=== PATIENT | female | born 1970 | race Caucasian/White ===

== ENCOUNTER 2016-12-17 18:59 | Emergency (ER) | payer MEDICAID ==
[~2016-12-17] VITALS: Ht 170.2 cm; Wt 99.8 kg
[~2016-12-17 18:59] MED LIST: ACETAMINOPHEN-H1 TA2 PO; ADIPEX-P37.5 MG PO; AFRIN PUMPMIST15 ML NS; ALL DAY ALLERGY10 MG PO; APAP/BUTALBITAL1 TA1 PO; APAP/HYDROCODON1 TA9 PO; ASPIRIN 81MG TA81 MG PO; BACTROBAN2% TP; BUSPAR 5MG TAB5 MG PO; CARAFATE1 GM/10 ML PO; CHILDREN'S CHEW1 CT1 PO; CIPRO 500MG TA500 MG PO; CLARITIN 10MG T10 MG PO; DARVOCET-N 1001 EACH PO; DICLOFENAC 50MG50 MG PO; DOXYCYCLINE HY100 M1 PO; DULOXETINE HYDR30 MG PO; ESCITALOPRAM20 MG PO; FE C PO; FIORICET 325 MG1 TAB PO; FIORICET1 CAP PO; FLEXERIL10 MG PO; FLONASE 50 MCG16 GM; GLYCOLAX17 GM/DOSE PO; IBUPROFEN 600M600 MG PO; IBUPROFEN400 MG OR; IBUPROFEN400 MG PO; IBUPROFEN800 MG PO; IRON65 MG PO; KEFLEX 500MG.500 MG PO; LINZESS145 MCG PO; LORTAB 5/500 501 TAB PO; LORTAB 500 MG-71 TAB PO; MEDROL 4MG. DOSE4 MG PO; MEDROXYPROGESTE10 M1 PO; METHOCARBAMOL500 M1 PO; MIRALAX17 GM/PACK PO; MOBIC7.5 MG PO; MONTELUKAST SOD10 MG PO; MOTRIN 600MG.600 MG PO; NAPROSYN500 M1 PO; NAPROXEN SODIU500 MG PO; NOMEDS; NOMEDS *; OMEPRAZOLE20 MG PO; OMEPRAZOLE40 MG PO; ONE DAILY1 TAB PO; PROVERA 10MG TA10 MG OR; ROBAXIN500 M1 PO; RONDEC-DM 118118 ML PO; SINGULAIR 10 MG10 MG PO; TERCONAZOLE 0.8% VG; TESSALON PERLE100 MG PO; TESSALON PERLE200 MG PO; TRAMADOL 50MG T50 MG PO; VIACTIV PO; VIBRAMYCIN HYC100 MG PO; VICODIN1 TAB PO; VISTARIL25 M1 PO; VITAMIN B1100 MG PO; VITAMIN B121000 MCG SL; VITAMIN D50000 I1 PO; VITAMIN D50000 IU PO; ZITHROMAX Z PA250 MG PO; ZOFRAN4 MG PO
--- NOTE | 2016-12-17 19:36 | Emergency Room Report ---
History of Present Illness Time Seen by 1903 Presenting Problem in Triage Pt arrived:Walked Presenting Problem:HAD HIATAL HERNIA REPAIR LAST FRIDAY--NO BM SINCE Onset of symptoms date/time:12/09/16 or onset unknown for: Treatment Prior to Arrival: [employer] Provided by: Sepsis Risk Assessment: Temp: 97.9 B/P: 126/68 MAP: 87 Pulse: 79 Resp: 20 Recent fever? N Clinical Suspician of Infection? N Mental Status: 1 - Regular (Normal Baseline) Sepsis Risk:Low Sepsis Risk Have you (or family members/close friends) recently traveled outside the [place]? N If Yes, where/when: Have you had exposure to infectious disease within the past month? N TB? Other? Specify: Source patient Exam Limitations no limitations Comment Pt presents to ER with complaints of constipation. Reports that she has not had a BM since 12/10/2016. She had hiatal hernia surgery 12/11/2016 at [facility] with Dr Enrique. She was seen here in the ER on 12/12 and 12/13 for difficulty swallowing and pain with swallowing. Reports that she continues to have pain and a "spasm" when she swallows. States that she is out of pain medication and was supposed to see Dr Pierce tomorrow morning but was told that she can't due to insurance will not be able to be seen until 12/25/2016. Her F/ U appt with Dr Enrique is 12/24/2016. Denies fever, any signs of infection at the surgical sites, nausea or vomiting. Timing/Duration week Severity moderate Associated Symptoms none ALLERGIES Coded Allergies: Penicillins (Mild, I-RASH 10/14/16) Sulfa (Sulfonamide Antibiotics) (Mild, I-RASH 10/14/16) codeine (Mild, I-RASH 10/14/16) diphenhydramine (From BENADRYL) (Mild, 10/14/16) morphine (10/14/16) Home Medications Reported Medications DULOXETINE HCL (Duloxetine Hydrochloride) 30 MG PO DAILY #30 MULTIVITAMIN (One Daily) 1 TAB PO DAILY ERGOCALCIFEROL (VITAMIN D2) (Vitamin D2) 50,000 IUNITS PO WEEKLY #4 Montelukast Sodium 10 MG PO DAILY #30 Polyethylene Glycol 3350 (Glycolax) 17 GM PO PRN PRN constipation #255 Linaclotide (Linzess 145MCG) 145 MCG PO DAILY #30 Omeprazole (Omeprazole 40MG) 40 MG PO DAILY #30 Fluticasone Propionate (Flonase 50 Mcg Nasal [place]) 1 SPRAY NA BID PRN allergies #16 History Medical History General CAD? No Angina: Yes [place]: No Hypertension? Yes Hyperlipidemia? Yes CHF? No DVT? No PE? No COPD? No Asthma? No Anemia? No GERD? No Gastric ulcers? No GI Bleed? No Hernia? Yes Thyroid Problems? No Hypothyroidism? No CVA? No Seizures? No Diabetes? No Renal Insuffiency? No End Stage Renal Disease? No UTI? Yes Stones? No BPH? No GB Disease: Yes Nephritic Syndrome? No Asplenia? No Hepatitis? No Sickle Cell Disease? No Arthritis? Yes Migraines? Yes Cataracts? No Glaucoma? No MRSA? No HIV? No TB? No Anxiety? No Depression? No Cancer? No More? Yes Additional hx: Fibromyalgia Immunization Hx DT/Tetanus 2006 Surgical Hx Previous Surgery?Y ELBOW AT AGE 5 UMBILICAL HERNIA 3-4 YRS GALLBLADDER C SECTION 07/13/07 TUBAL LIGATION PARTIAL L SALPINGECTOMY ENDOSCOPY GASTRIC SLEEVE HEART CATH MARCH 2016 COLONOSCOPY 08/08/16 ENDOSCOPY 08/08/16, Hiatal Hernia and diagnostic laproscopy 12/11/2016 [employer] Hx LMP 3 Weeks Ago Family History Family Hx Diabetes Yes CAD Yes Hypertension Yes Hyperlipidemia Yes Cancer Yes TB No Social History Smoking Hx Smoker: Never Smoker Tobacco: No Are you/the child exposed to second-hand smoke: No Alcohol Alcohol: No Review of Systems All Other Systems Reviewed and Negative Gastrointestinal constipation Physical Exam Vital Signs Vital Signs Date Time Temp Pulse Resp B/P Pulse O2 O2 Flow FiO2 Ox Delivery Rate 12/17 1917 97.9 79 20 126/68 97 General Appearance normal appearance, WD/WN, no apparent distress Eye Exam - bilateral eye normal exam, bilateral eye PERRL, bilateral eye EOMI Neck normal inspection, non-tender, supple, full range of motion Respiratory Status Yes: trachea midline, chest symmetrical, non tender chest. No: respiratory distress. Lung Sounds bilateral: normal breath sounds, lungs clear. 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 No Results/Orders Orders Procedure Date/time Status KUB (SINGLE VIEW) 12/17 1936 Active XRAY/CT/US XRAY/CT/US XRAY KUB XR interpretation by reviewed by me Xray Results Stool thru-out, barium from previous study on 12/12/2016 still present Departure Departure Time of Disposition 1951 Disposition DC Home or Self Care(routine) Clinical Impression Primary Impression: Constipation due to opioid therapy Condition STABLE Referrals Evon Gonzales APRN (Family): Tomorrow-Call Office Needs to call surgeon Dr Enrique if needs additional pain medication. Patient Instructions DI for Constipation Additional Instructions Increase fluids, fiber, and exercise. F/U with Dr Enrique or Dr Pierce for additional pain medication as needed. Continue post-op instructions as directed by Dr Enrique. Discharge Counseling Counseled pt/family regarding diagnosis, test results, medications/RX, home care, follow up needs Prescriptions Current Visit Scripts Bisacodyl (Bisacodyl 5MG TAB) 5 MG PO BID 5 Days Docusate Sodium (Colace 100MG Cap) 100 MG PO BIDP PRN constipation 5 Days ED Critical Care Critical Care No Comments Increase fluids, fiber, and exercise. F/U with Dr Enrique or Dr Pierce for additional pain medication as needed. Continue post-op instructions as directed by Dr Enrique. at 1953
--- NOTE | 2016-12-17 19:36 | Emergency Room Report ---
History of Present Illness Time Seen by 1903 Presenting Problem in Triage Pt arrived:Walked Presenting Problem:HAD HIATAL HERNIA REPAIR LAST FRIDAY--NO BM SINCE Onset of symptoms date/time:12/09/16 or onset unknown for: Treatment Prior to Arrival: [employer] Provided by: Sepsis Risk Assessment: Temp: 97.9 B/P: 126/68 MAP: 87 Pulse: 79 Resp: 20 Recent fever? N Clinical Suspician of Infection? N Mental Status: 1 - Regular (Normal Baseline) Sepsis Risk:Low Sepsis Risk Have you (or family members/close friends) recently traveled outside the [place]? N If Yes, where/when: Have you had exposure to infectious disease within the past month? N TB? Other? Specify: Source patient Exam Limitations no limitations Comment Pt presents to ER with complaints of constipation. Reports that she has not had a BM since 12/10/2016. She had hiatal hernia surgery 12/11/[address] [facility] with Dr Enrique. She was seen here in the ER on 12/12 and 12/13 for difficulty swallowing and pain with swallowing. Reports that she continues to have pain and a "spasm" when she swallows. States that she is out of pain medication and was supposed to see Dr Pierce tomorrow morning but was told that she can't due to insurance will not be able to be seen until 12/25/2016. Her F/ U appt with Dr Enrique is 12/24/2016. Denies fever, any signs of infection at the surgical sites, nausea or vomiting. Timing/Duration week Severity moderate Associated Symptoms none ALLERGIES Coded Allergies: Penicillins (Mild, I-RASH 10/14/16) Sulfa (Sulfonamide Antibiotics) (Mild, I-RASH 10/14/16) codeine (Mild, I-RASH 10/14/16) diphenhydramine (From BENADRYL) (Mild, 10/14/16) morphine (10/14/16) Home Medications Reported Medications DULOXETINE HCL (Duloxetine Hydrochloride) 30 MG PO DAILY #30 MULTIVITAMIN (One Daily) 1 TAB PO DAILY ERGOCALCIFEROL (VITAMIN D2) (Vitamin D2) 50,000 IUNITS PO WEEKLY #4 Montelukast Sodium 10 MG PO DAILY #30 Polyethylene Glycol 3350 (Glycolax) 17 GM PO PRN PRN constipation #255 Linaclotide (Linzess 145MCG) 145 MCG PO DAILY #30 Omeprazole (Omeprazole 40MG) 40 MG PO DAILY #30 Fluticasone Propionate (Flonase 50 Mcg Nasal [place]) 1 SPRAY NA BID PRN allergies #16 History Medical History General CAD? No Angina: Yes [place]: No Hypertension? Yes Hyperlipidemia? Yes CHF? No DVT? No PE? No COPD? No Asthma? No Anemia? No GERD? No Gastric ulcers? No GI Bleed? No Hernia? Yes Thyroid Problems? No Hypothyroidism? No CVA? No Seizures? No Diabetes? No Renal Insuffiency? No End Stage Renal Disease? No UTI? Yes Stones? No BPH? No GB Disease: Yes Nephritic Syndrome? No Asplenia? No Hepatitis? No Sickle Cell Disease? No Arthritis? Yes Migraines? Yes Cataracts? No Glaucoma? No MRSA? No HIV? No TB? No Anxiety? No Depression? No Cancer? No More? Yes Additional hx: Fibromyalgia Immunization Hx DT/Tetanus 2006 Surgical Hx Previous Surgery?Y ELBOW AT AGE 5 UMBILICAL HERNIA 3-4 YRS GALLBLADDER C SECTION 07/13/07 TUBAL LIGATION PARTIAL L SALPINGECTOMY ENDOSCOPY GASTRIC SLEEVE HEART CATH MARCH 2016 COLONOSCOPY 08/08/16 ENDOSCOPY 08/08/16, Hiatal Hernia and diagnostic laproscopy 12/11/2016 [employer] Hx LMP 3 Weeks Ago Family History Family Hx Diabetes Yes CAD Yes Hypertension Yes Hyperlipidemia Yes Cancer Yes TB No Social History Smoking Hx Smoker: Never Smoker Tobacco: No Are you/the child exposed to second-hand smoke: No Alcohol Alcohol: No Review of Systems All Other Systems Reviewed and Negative Gastrointestinal constipation Physical Exam Vital Signs Vital Signs Date Time Temp Pulse Resp B/P Pulse O2 O2 Flow FiO2 Ox Delivery Rate 12/17 1917 97.9 79 20 126/68 97 General Appearance normal appearance, WD/WN, no apparent distress Eye Exam - bilateral eye normal exam, bilateral eye PERRL, bilateral eye EOMI Neck normal inspection, non-tender, supple, full range of motion Respiratory Status Yes: trachea midline, chest symmetrical, non tender chest. No: respiratory distress. Lung Sounds bilateral: normal breath sounds, lungs clear. 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 No Results/Orders Orders Procedure Date/time Status KUB (SINGLE VIEW) 12/17 1936 Active XRAY/CT/US XRAY/CT/US XRAY KUB XR interpretation by reviewed by me Xray Results Stool thru-out, barium from previous study on 12/12/2016 still present Departure Departure Time of Disposition 1951 Disposition DC Home or Self Care(routine) Clinical Impression Primary Impression: Constipation due to opioid therapy Condition STABLE Referrals Evon Gonzales APRN (Family): Tomorrow-Call Office Needs to call surgeon Dr Enrique if needs additional pain medication. Patient Instructions DI for Constipation Additional Instructions Increase fluids, fiber, and exercise. F/U with Dr Enrique or Dr Pierce for additional pain medication as needed. Continue post-op instructions as directed by Dr Enriqeu. Discharge Counseling Counseled pt/family regarding diagnosis, test results, medications/RX, home care, follow up needs Prescriptions Current Visit Scripts Bisacodyl (Bisacodyl 5MG TAB) 5 MG PO BID 5 Days Docusate Sodium (Colace 100MG Cap) 100 MG PO BIDP PRN constipation 5 Days ED Critical Care Critical Care No Comments Increase fluids, fiber, and exercise. F/U with Dr Enrique or Dr Pierce for additional pain medication as needed. Continue post-op instructions as directed by Dr Enrique. at 1953
[2016-12-17] MEDS ORDERED: COLACE GENERIC100 MG PO (19:51)
[2016-12-17] MEDS ORDERED: BISACODYL5 MG PO (19:51)
[2016-12-17 20:00] VITALS: BP 132/82
--- NOTE | 2016-12-18 07:44 | RADIOLOGY REPORT PS360 ---
KUB (SINGLE VIEW) HISTORY: constipation ORDERING PHYSICIAN: PRASHANTH EASTMAN PATIENT AGE: 46 years COMPARISON: None FINDINGS: There is mild amount retained colonic feces. The thecal material somewhat hyperdense as the patient had a recent esophagram. There are surgical clips in the right upper quadrant. No abnormal calcifications are evident. No obvious renal or ureteral calculi.. No acute bony anomalies evident. IMPRESSION: Constipation
[2017-01-10] MEDS ORDERED: NASONEX0.05 MG/AC NS (21:07)
[2017-01-20] MEDS ORDERED: CYCLOBENZAPRINE10 M1 PO (14:58)
[2017-01-22] MEDS ORDERED: ETODOLAC200 MG PO (15:52)
[2017-01-22] MEDS ORDERED: ZANAFLEX4 M2 PO (15:52)
[2017-01-26] MEDS ORDERED: ZOFRAN4 MG PO (18:39)
[2017-02-14] MEDS ORDERED: IMDUR 30MG. TAB30 MG PO (12:55)
[2017-02-17] MEDS ORDERED: GOOD NEIGHBOR150 MG PO (10:48)
[2017-02-17] MEDS ORDERED: GOOD NEIGHBOR P10 M1 PO (10:48)
[2017-02-17] MEDS ORDERED: VITAMIN D31000 IU PO (10:49)
[2017-03-03] MEDS ORDERED: KEFLEX 500MG.500 MG PO (16:29)
[2017-03-12] MEDS ORDERED: GABAPENTIN100 MG PO (16:36)
[2017-03-12] MEDS ORDERED: PYRIDIUM100 M2 PO (17:14)
== END 2016-12-17 20:00 | disposition home or self-care (01) ==
LOC: ER 18:59
DX: K59.03 Drug induced constipation (principal); T40.2X5A Adverse effect of other opioids, initial encounter; I10 Essential (primary) hypertension; M79.7 Fibromyalgia

== ENCOUNTER 2016-12-25 10:25 | Emergency (ER) | payer MEDICAID ==
[~2016-12-25] VITALS: Ht 170.2 cm; Wt 99.8 kg
[~2016-12-25 10:25] MED LIST changes: +BISACODYL5 MG PO; +COLACE GENERIC100 MG PO
[2016-12-25] MEDS ORDERED: FLEXERIL10 MG PO (11:09)
--- NOTE | 2016-12-25 11:09 | Urgent Treatment Center Report ---
History of Present Issue Date/Time Seen by Provider 12/25/16 1045 Visit Reason Pt arrived:Walked Presenting Problem:PT C/O LOWER BACK THAT HAS BEEN ONGOING AND SORE THROAT Location if Accident: Onset of symptoms date/time:/ or onset unknown for:MEDICAL HX UNKNOWN Have you (or family members/close friends) recently traveled outside the [place]? N If Yes, where/when: Have you had exposure to infectious disease within the past month? TB? Other? Specify: Pt is well known to [facility] ER staff w/ >20 visits since Spring 2015. First visit in [facility] [place]. Lengthy hx of pain w/ extensive work up in ER and via PCP , Olga Gonzales APRN. Currently waiting for insurance approval to begin physical therapy. Pt reports most recents "total body scan" showed DDD and in June she was dx w/ fibromyalgia. "I always hurt everywhere". Reports started cymbalta but self d/c'd due to increased frequency of panic attacks. Started visiting chiropractor but "that made pain worse". Low back pain has been worse last 3-4 days despite 1500mg tylenol every 4 hours!! (Immediately corrected dosing w/ pt). Pain described as "same low back pain as always but worse now", , across low back, better w/ movement, worse at rest "especially at night", constant "typical" ache with intermittent tightness/squeezing, "like a spasm lately". Denies N/T "except when I feel an anxiety attack coming on and my heart rate gets fast. I flush and feel tingling then" Denies difficulty ambulating. No abdominal pain or difficulty w/ urination or stooling. Also c/o mild sore throat x 3 days. Intermittent. Worse at night and in morning. Denies ear pain. + PND. No fever, chills, sinus pain, rhinorrhea. "Just the sore throat really". Hasn't taken or tried anything specifically for sore throat. No known sick contacts. Source patient, old records Exam Limitations no limitations ALLERGIES Coded Allergies: Penicillins (Mild, I-RASH 10/14/16) Sulfa (Sulfonamide Antibiotics) (Mild, I-RASH 10/14/16) codeine (Mild, I-RASH 10/14/16) diphenhydramine (From BENADRYL) (Mild, 10/14/16) morphine (10/14/16) Home Medications Active Scripts Bisacodyl (Bisacodyl 5MG TAB) 5 MG PO BID 5 Days Prov: 12/17/16 Docusate Sodium (Colace 100MG Cap) 100 MG PO BIDP PRN constipation 5 Days Prov: 12/17/16 Reported Medications DULOXETINE HCL (Duloxetine Hydrochloride) 30 MG PO DAILY #30 MULTIVITAMIN (One Daily) 1 TAB PO DAILY ERGOCALCIFEROL (VITAMIN D2) (Vitamin D2) 50,000 IUNITS PO WEEKLY #4 Montelukast Sodium 10 MG PO DAILY #30 Polyethylene Glycol 3350 (Glycolax) 17 GM PO PRN PRN constipation #255 Linaclotide (Linzess 145MCG) 145 MCG PO DAILY #30 Omeprazole (Omeprazole 40MG) 40 MG PO DAILY #30 Fluticasone Propionate (Flonase 50 Mcg Nasal [place]) 1 SPRAY NA BID PRN allergies #16 History Medical History General CAD? No Angina: Yes [place]: No Hypertension? Yes Hyperlipidemia? Yes CHF? No DVT? No PE? No COPD? No Asthma? No Anemia? No GERD? No Gastric ulcers? No GI Bleed? No Hernia? Yes Thyroid Problems? No Hypothyroidism? No CVA? No Seizures? No Diabetes? No Renal Insuffiency? No UTI? Yes Stones? No BPH? No GB Disease: Yes Nephritic Syndrome? No Asplenia? No Hepatitis? No Sickle Cell Disease? No Arthritis? Yes Migraines? Yes Cataracts? No Glaucoma? No MRSA? No HIV? No TB? No Anxiety? No Depression? No Cancer? No More? 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 Respiratory denies cough Cardiovascular denies chest pain Gastrointestinal see HPI Musculoskeletal see HPI Skin denies rash Physical Exam Vital Signs Vital Signs Date Time Temp Pulse Resp B/P Pulse O2 O2 Flow FiO2 Ox Delivery Rate 12/25 1118 98.9 74 16 109/67 98 12/25 1034 98.9 74 16 109/67 98 General Appearance normal appearance, no apparent distress, unkept appearance Ear, Nose, Throat normal EACs, normal TMs, normal nasal passages, no drainage, clear PND and cobblestoning present, no tonsillar swelling Neck non-tender, full range of motion Respiratory Status No: respiratory distress. Lung Sounds anterior: normal breath sounds. posterior: normal breath sounds. bilateral: normal breath sounds. Cardiovascular regular rate/rhythm, no peripheral edema Gastrointestinal normal bowel sounds, non tender, soft Back normal inspection, strt leg raising(L)-NML, strt leg raising(R)-NML, tenderness with minimal palpation anywhere touched but more significant tenderness lower lumbar/sacral region, muscle spasm lower thoracic region bilaterally Extremities FROM Strength 4 Lower Ext (L), 4 Lower Ext (R) Neurologic alert Reflexes Reflexes normal Yes Skin intact, warm/dry Medical Decision Making LABS/Meds/Orders Pt receiving controlled substance in ED? No Departure Departure Time of Disposition 1057 Disposition DC Home or Self Care(routine) Clinical Impression Primary Impression: Chronic low back pain Qualifiers: Back pain laterality: bilateral Sciatica presence: without sciatica Qualified Code: M54.5 - Low back pain Secondary Impressions: Muscle spasm of back, Post-nasal drainage Condition STABLE Referrals Evon Gonzales APRN this week for worsening back pain. Immediately for new or worsening symptoms. Patient Instructions Cyclobenzaprine, DI for Low Back Pain Additional Instructions Sore throat due to post nasal drainage typically caused by a cold or allergies and will resolve spontaneously. Warm salt water gargles. Warm fluids. Sleep elevated. Back Pain chronic. Physical therapy is an excellent idea. FU w/ PCP, Olga Gonzales, regarding status of referral. Caution: Muscle relaxer (flexeril/cyclobenzaprine) will cause drowsiness. No operating machinary or driving after taking. Local heat/heating pad. Over the counter muscle rub or therapeutic patches. FU immediately for new or worsening symptoms. Discharge Counseling Counseled pt/family regarding diagnosis, medications/RX, home care, follow up needs Prescriptions Current Visit Scripts Cyclobenzaprine Hcl (Flexeril) 5 MG PO BID PRN muscle spasm #14 TAB at 8676
[2016-12-25 11:18] VITALS: BP 109/67
[2017-01-10] MEDS ORDERED: NASONEX0.05 MG/AC NS (21:07)
[2017-01-20] MEDS ORDERED: CYCLOBENZAPRINE10 M1 PO (14:58)
[2017-01-22] MEDS ORDERED: ETODOLAC200 MG PO (15:52)
[2017-01-22] MEDS ORDERED: ZANAFLEX4 M2 PO (15:52)
[2017-01-26] MEDS ORDERED: ZOFRAN4 MG PO (18:39)
[2017-02-14] MEDS ORDERED: IMDUR 30MG. TAB30 MG PO (12:55)
[2017-02-17] MEDS ORDERED: GOOD NEIGHBOR150 MG PO (10:48)
[2017-02-17] MEDS ORDERED: GOOD NEIGHBOR P10 M1 PO (10:48)
[2017-02-17] MEDS ORDERED: VITAMIN D31000 IU PO (10:49)
[2017-03-03] MEDS ORDERED: KEFLEX 500MG.500 MG PO (16:29)
[2017-03-12] MEDS ORDERED: GABAPENTIN100 MG PO (16:36)
[2017-03-12] MEDS ORDERED: PYRIDIUM100 M2 PO (17:14)
== END 2016-12-25 11:18 | disposition home or self-care (01) ==
LOC: UTC 10:25
DX: M54.5 Low back pain (principal); M62.830 Muscle spasm of back; M79.7 Fibromyalgia; I10 Essential (primary) hypertension

== ENCOUNTER 2017-01-04 17:08 | Emergency (ER) | payer MEDICAID ==
[~2017-01-04] VITALS: Ht 170.2 cm; Wt 99.8 kg
[2017-01-04] MEDS ORDERED: PREDNISONE 20MG20 MG PO (17:41)
[2017-01-04] MEDS ORDERED: ZITHROMAX Z PA250 MG PO (17:41)
--- NOTE | 2017-01-04 17:42 | Urgent Treatment Center Report ---
History of Present Issue Date/Time Seen by Provider 01/04/17 1140 Visit Reason Pt arrived:Walked Presenting Problem:PT C/O PULLING IN HER CHEST AND NECK FEELS MUSCLE RELATED Location if Accident: Onset of symptoms date/time:/ or onset unknown for:MEDICAL HX UNKNOWN Have you (or family members/close friends) recently traveled outside the [place]? N If Yes, where/when: Have you had exposure to infectious disease within the past month? TB? Other? Specify: Patient states that she is having pain in left side of her neck and she is not sure if she doesn't have an ear infection or infection in her throat because she noticed that she bumped into things at home ALLERGIES Coded Allergies: Penicillins (Mild, I-RASH 10/14/16) Sulfa (Sulfonamide Antibiotics) (Mild, I-RASH 10/14/16) codeine (Mild, I-RASH 10/14/16) diphenhydramine (From BENADRYL) (Mild, 10/14/16) morphine (10/14/16) Home Medications Active Scripts Cyclobenzaprine Hcl (Flexeril) 5 MG PO BID PRN muscle spasm #14 TAB Prov: 12/25/16 Bisacodyl (Bisacodyl 5MG TAB) 5 MG PO BID 5 Days Prov: 12/17/16 Docusate Sodium (Colace 100MG Cap) 100 MG PO BIDP PRN constipation 5 Days Prov: 12/17/16 Reported Medications DULOXETINE HCL (Duloxetine Hydrochloride) 30 MG PO DAILY #30 MULTIVITAMIN (One Daily) 1 TAB PO DAILY ERGOCALCIFEROL (VITAMIN D2) (Vitamin D2) 50,000 IUNITS PO WEEKLY #4 Montelukast Sodium 10 MG PO DAILY #30 Polyethylene Glycol 3350 (Glycolax) 17 GM PO PRN PRN constipation #255 Linaclotide (Linzess 145MCG) 145 MCG PO DAILY #30 Omeprazole (Omeprazole 40MG) 40 MG PO DAILY #30 Fluticasone Propionate (Flonase 50 Mcg Nasal [place]) 1 SPRAY NA BID PRN allergies #16 History Medical History General CAD? No Angina: Yes [place]: No Hypertension? Yes Hyperlipidemia? Yes CHF? No DVT? No PE? No COPD? No Asthma? No Anemia? No GERD? No Gastric ulcers? No GI Bleed? No Hernia? Yes Thyroid Problems? No Hypothyroidism? No CVA? No Seizures? No Diabetes? No Renal Insuffiency? No UTI? Yes Stones? No BPH? No GB Disease: Yes Nephritic Syndrome? No Asplenia? No Hepatitis? No Sickle Cell Disease? No Arthritis? Yes Migraines? Yes Cataracts? No Glaucoma? No MRSA? No HIV? No TB? No Anxiety? No Depression? No Cancer? No More? Yes Additional hx: Fibromyalgia Immunization HX DT/Tetanus 2006 Surgical Hx Previous Surgery?Y ELBOW AT AGE 5 UMBILICAL HERNIA 3-4 YRS GALLBLADDER C SECTION 07/13/07 TUBAL LIGATION PARTIAL L SALPINGECTOMY ENDOSCOPY GASTRIC SLEEVE HEART CATH MARCH 2016 COLONOSCOPY 08/08/16 ENDOSCOPY 08/08/16 Family History Family HX Diabetes Yes CAD Yes Hypertension Yes Hyperlipidemia Yes Cancer Yes TB No Social History Smoking Hx Smoker: Current Every Day Smoker Tobacco: Yes Type Cigarettes Alcohol Alcohol: No Review of Systems All Other Systems Reviewed and Negative Physical Exam Vital Signs Vital Signs Date Time Temp Pulse Resp B/P Pulse O2 O2 Flow FiO2 Ox Delivery Rate 01/04 1721 98.5 85 16 144/78 99 General Appearance normal appearance, no apparent distress Ear, Nose, Throat sinus pain/drainage, nasal congestion, tonsillar exudate, tonsillar swelling, Left ear, red, TM dull, buldging Respiratory Status Yes: trachea midline, chest symmetrical, non tender chest. No: respiratory distress. Cardiovascular normal exam Neurologic alert, normal exam, no motor/sensory deficits, oriented x 3 Medical Decision Making LABS/Meds/Orders Pt receiving controlled substance in ED? No Departure Departure Time of Disposition 1741 Disposition DC Home or Self Care(routine) Clinical Impression Primary Impression: Upper respiratory infection Qualifiers: URI type: unspecified URI Qualified Code: J06.9 - Acute upper respiratory infection, unspecified Condition STABLE Referrals Evon Gonzales APRN (Family) Patient Instructions DI for Ear Drainage, Middle Ear Infection Additional Instructions Follow up family doctor Return to [facility] if needed Take medication as prescribed Discharge Counseling Counseled pt/family regarding diagnosis, medications/RX, home care Prescriptions Current Visit Scripts Azithromycin (Zithromycin (Z-JORDAN) 250MG Tab) 250 MG PO DAILY #6 TAB TAKE TWO (2) TABLETS ON DAY 1, THEN ONE (1) TABLET DAY #2 THRU #5 Prednisone (Prednisone 20MG) 20 MG PO BID #10 TAB at 5053
--- NOTE | 2017-01-04 17:42 | Urgent Treatment Center Report ---
History of Present Issue Date/Time Seen by Provider 01/04/17 8818 Visit Reason Pt arrived:Walked Presenting Problem:PT C/O PULLING IN HER CHEST AND NECK FEELS MUSCLE RELATED Location if Accident: Onset of symptoms date/time:/ or onset unknown for:MEDICAL HX UNKNOWN Have you (or family members/close friends) recently traveled outside the [place]? N If Yes, where/when: Have you had exposure to infectious disease within the past month? TB? Other? Specify: Patient states that she is having pain in left side of her neck and she is not sure if she doesn't have an ear infection or infection in her throat because she noticed that she bumped into things at home ALLERGIES Coded Allergies: Penicillins (Mild, I-RASH 10/14/16) Sulfa (Sulfonamide Antibiotics) (Mild, I-RASH 10/14/16) codeine (Mild, I-RASH 10/14/16) diphenhydramine (From BENADRYL) (Mild, 10/14/16) morphine (10/14/16) Home Medications Active Scripts Cyclobenzaprine Hcl (Flexeril) 5 MG PO BID PRN muscle spasm #14 TAB Prov: 12/25/16 Bisacodyl (Bisacodyl 5MG TAB) 5 MG PO BID 5 Days Prov: 12/17/16 Docusate Sodium (Colace 100MG Cap) 100 MG PO BIDP PRN constipation 5 Days Prov: 12/17/16 Reported Medications DULOXETINE HCL (Duloxetine Hydrochloride) 30 MG PO DAILY #30 MULTIVITAMIN (One Daily) 1 TAB PO DAILY ERGOCALCIFEROL (VITAMIN D2) (Vitamin D2) 50,000 IUNITS PO WEEKLY #4 Montelukast Sodium 10 MG PO DAILY #30 Polyethylene Glycol 3350 (Glycolax) 17 GM PO PRN PRN constipation #255 Linaclotide (Linzess 145MCG) 145 MCG PO DAILY #30 Omeprazole (Omeprazole 40MG) 40 MG PO DAILY #30 Fluticasone Propionate (Flonase 50 Mcg Nasal [place]) 1 SPRAY NA BID PRN allergies #16 History Medical History General CAD? No Angina: Yes PR: No Hypertension? Yes Hyperlipidemia? Yes CHF? No DVT? No PE? No COPD? No Asthma? No Anemia? No GERD? No Gastric ulcers? No GI Bleed? No Hernia? Yes Thyroid Problems? No Hypothyroidism? No CVA? No Seizures? No Diabetes? No Renal Insuffiency? No UTI? Yes Stones? No BPH? No GB Disease: Yes Nephritic Syndrome? No Asplenia? No Hepatitis? No Sickle Cell Disease? No Arthritis? Yes Migraines? Yes Cataracts? No Glaucoma? No MRSA? No HIV? No TB? No Anxiety? No Depression? No Cancer? No More? Yes Additional hx: Fibromyalgia Immunization HX DT/Tetanus 2006 Surgical Hx Previous Surgery?Y ELBOW AT AGE 5 UMBILICAL HERNIA 3-4 YRS GALLBLADDER C SECTION 07/13/07 TUBAL LIGATION PARTIAL L SALPINGECTOMY ENDOSCOPY GASTRIC SLEEVE HEART CATH MARCH 2016 COLONOSCOPY 08/08/16 ENDOSCOPY 08/08/16 Family History Family HX Diabetes Yes CAD Yes Hypertension Yes Hyperlipidemia Yes Cancer Yes TB No Social History Smoking Hx Smoker: Current Every Day Smoker Tobacco: Yes Type Cigarettes Alcohol Alcohol: No Review of Systems All Other Systems Reviewed and Negative Physical Exam Vital Signs Vital Signs Date Time Temp Pulse Resp B/P Pulse O2 O2 Flow FiO2 Ox Delivery Rate 01/04 1721 98.5 85 16 144/78 99 General Appearance normal appearance, no apparent distress Ear, Nose, Throat sinus pain/drainage, nasal congestion, tonsillar exudate, tonsillar swelling, Left ear, red, TM dull, buldging Respiratory Status Yes: trachea midline, chest symmetrical, non tender chest. No: respiratory distress. Cardiovascular normal exam Neurologic alert, normal exam, no motor/sensory deficits, oriented x 3 Medical Decision Making LABS/Meds/Orders Pt receiving controlled substance in ED? No Departure Departure Time of Disposition 1741 Disposition DC Home or Self Care(routine) Clinical Impression Primary Impression: Upper respiratory infection Qualifiers: URI type: unspecified URI Qualified Code: J06.9 - Acute upper respiratory infection, unspecified Condition STABLE Referrals Evon Gonzales APRN (Family) Patient Instructions DI for Ear Drainage, Middle Ear Infection Additional Instructions Follow up family doctor Return to [facility] if needed Take medication as prescribed Discharge Counseling Counseled pt/family regarding diagnosis, medications/RX, home care Prescriptions Current Visit Scripts Azithromycin (Zithromycin (Z-JORDAN) 250MG Tab) 250 MG PO DAILY #6 TAB TAKE TWO (2) TABLETS ON DAY 1, THEN ONE (1) TABLET DAY #2 THRU #5 Prednisone (Prednisone 20MG) 20 MG PO BID #10 TAB at [id number]
[2017-01-04 17:45] VITALS: BP 144/78
[2017-01-10] MEDS ORDERED: NASONEX0.05 MG/AC NS (21:07)
[2017-01-20] MEDS ORDERED: CYCLOBENZAPRINE10 M1 PO (14:58)
[2017-01-22] MEDS ORDERED: ETODOLAC200 MG PO (15:52)
[2017-01-22] MEDS ORDERED: ZANAFLEX4 M2 PO (15:52)
[2017-01-26] MEDS ORDERED: ZOFRAN4 MG PO (18:39)
[2017-02-14] MEDS ORDERED: IMDUR 30MG. TAB30 MG PO (12:55)
[2017-02-17] MEDS ORDERED: GOOD NEIGHBOR P10 M1 PO (10:48)
[2017-02-17] MEDS ORDERED: GOOD NEIGHBOR150 MG PO (10:48)
[2017-02-17] MEDS ORDERED: VITAMIN D31000 IU PO (10:49)
[2017-03-03] MEDS ORDERED: KEFLEX 500MG.500 MG PO (16:29)
[2017-03-12] MEDS ORDERED: GABAPENTIN100 MG PO (16:36)
[2017-03-12] MEDS ORDERED: PYRIDIUM100 M2 PO (17:14)
== END 2017-01-04 17:46 | disposition home or self-care (01) ==
LOC: UTC 17:08
DX: J06.9 Acute upper respiratory infection, unspecified (principal); Z72.0 Tobacco use; I10 Essential (primary) hypertension

== ENCOUNTER 2017-03-22 18:01 | Emergency (ER) | payer MEDICAID ==
[~2017-03-22] VITALS: Ht 170.2 cm; Wt 113.4 kg
[~2017-03-22 18:01] MED LIST changes: +CYCLOBENZAPRINE10 M1 PO; +ETODOLAC200 MG PO; +GABAPENTIN100 MG PO; +GOOD NEIGHBOR P10 M1 PO; +GOOD NEIGHBOR150 MG PO; +IMDUR 30MG. TAB30 MG PO; +NASONEX0.05 MG/AC NS; +PREDNISONE 20MG20 MG PO; +PYRIDIUM100 M2 PO; +VITAMIN D31000 IU PO; +ZANAFLEX4 M2 PO
--- NOTE | 2017-03-22 18:09 | Emergency Room Report ---
History of Present Illness Time Seen by 1805 Presenting Problem in Triage Pt arrived: Presenting Problem: Onset of symptoms date/time:/ or onset unknown for: Treatment Prior to Arrival: STITCHDOWN TOE FORMER Provided by: Sepsis Risk Assessment: Temp: B/P: MAP: Pulse: Resp: Recent fever? Clinical Suspician of Infection? Mental Status: Sepsis Risk: Have you (or family members/close friends) recently traveled outside the [place]? If Yes, where/when: Have you had exposure to infectious disease within the past month? TB? Other? Specify: Source patient, RN notes reviewed Exam Limitations no limitations Comment Pt had Epidural Steroid Injection yesterday and when she got home got sick and felt like she was going to vomit and felt "loopy" in her head. No flackout spells but does have a mild CARTY and just has a weird feeling all over. He VS are all normal at this time. Cardiac Chest Pain Chest pain indicative of cardiac No ALLERGIES Coded Allergies: Sulfa (Sulfonamide Antibiotics) (Mild, I-RASH 01/22/17) codeine (Mild, I-RASH 01/22/17) diphenhydramine (From BENADRYL) (Mild, 01/22/17) morphine (01/22/17) Home Medications Reported Medications MULTIVITAMIN (One Daily) 1 TAB PO DAILY Linaclotide (Linzess 145MCG) 145 MCG PO DAILY #30 Gabapentin (Gabapentin 100MG) 100 MG PO QHS #90 Omeprazole (Omeprazole 40MG) 40 MG PO BID Cyclobenzaprine Hcl 50 MG PO BID Loratadine 10 MG PO DAILY RANITIDINE HCL (Acid Control) 150 MG PO BID CHOLECALCIFEROL (VITAMIN D3) (Vitamin D) 50,000 IUNITS PO WEEKLY History Medical History General CAD? No Angina: Yes NE: No Hypertension? No Hyperlipidemia? Yes CHF? No DVT? No PE? No COPD? No Asthma? No Anemia? No GERD? Yes Gastric ulcers? No GI Bleed? No Hernia? Yes Thyroid Problems? No Hypothyroidism? No CVA? No Seizures? No Diabetes? No Renal Insuffiency? No End Stage Renal Disease? No UTI? Yes Stones? No BPH? No GB Disease: Yes Nephritic Syndrome? No Asplenia? No Hepatitis? No Sickle Cell Disease? No Arthritis? Yes Migraines? Yes Cataracts? No Glaucoma? No MRSA? No HIV? No TB? No Anxiety? Yes Depression? No Cancer? No More? No Additional hx: Fibromyalgia Immunization Hx DT/Tetanus 2006 Surgical Hx Previous Surgery?Y ELBOW AT AGE 5 UMBILICAL HERNIA 3-4 YRS GALLBLADDER C SECTION 07/13/07 TUBAL LIGATION PARTIAL L SALPINGECTOMY ENDOSCOPY GASTRIC SLEEVE HEART CATH MARCH 2016 COLONOSCOPY 08/08/16 ENDOSCOPY 08/08/16 Family History Family Hx Diabetes Yes CAD Yes Hypertension Yes Hyperlipidemia Yes Cancer Yes TB No Social History Alcohol Alcohol: No Review of Systems All Other Systems Reviewed and Negative Constitutional see HPI Psychiatric/Neurological see HPI Physical Exam Vital Signs Vital Signs Date Time Temp Pulse Resp B/P Pulse O2 O2 Flow FiO2 Ox Delivery Rate 03/22 1937 81 20 118/71 100 03/22 184 82 18 103/65 98 03/22 1808 98.0 81 18 128/82 98 General Appearance normal appearance, WD/WN, no apparent distress Respiratory Status No: respiratory distress. 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 no arm drift, smile is symmetrical, tongue protrudes in the midline and speech is clear. Medical Decision Making LABS/Meds/Orders Pt receiving controlled substance in ED? No Results/Orders Laboratory Tests 03/22/171929: Urine Color YELLOW, Urine Appearance CLEAR, Urine pH 7.0, Ur Specific [place] <= 1.005, Urine Protein NEGATIVE, Urine Ketones NEGATIVE, Urine Blood NEGATIVE, Urine Nitrate NEGATIVE, Urine Bilirubin NEGATIVE, Urine Urobilinogen 0.2, Ur Leukocyte Esterase NEGATIVE, Ur Squamous Epith Cells 5-10, Amorphous Sediment TRACE, Urine Glucose NEGATIVE 03/22/171839: Sodium 140, Potassium 4.0, Chloride 105, Carbon Dioxide 32, BUN 11, Creatinine 0.8, Estimated Creat Clear 159, Estimated GFR (MDRD) 78, Glucose 100, Calcium 8.7, Total Bilirubin 0.4, AST 20, ALT 31, Alkaline Phosphatase 90, Total Protein 7.8, Albumin 3.5, Globulin 4.3 H, Albumin/Globulin Ratio 0.8 L, WBC 4.9, RBC 4.62, Hgb 13.9, Hct 40.9, MCV 88.5, RDW 13.0, Plt Count 203, MPV 5.3 L, Gran % 69.2, Gran # 3.4, Lymphocytes % 25.7, Monocytes % 4.3, Eosinophils % 0.6, Basophils % 0.2, Lymphocytes # 1.3, Monocytes # 0.2, Eosinophils # 0.0, Basophils # 0.0, PUBS MCHC 34.0, MCH 30.1 Current Medication Orders Sig/[place] Start time Last Medication Dose Route Stop Time Status Admin Sodium Chloride 2,000 ML .STK-MED ONE 03/22 1850 DC IV Sodium Chloride 10 ML PRN PRN 03/22 1845 AC IV 03/23 183 Sodium Chloride 1,000 ML .Q1H1M 03/22 1845 DC 03/22 IV 03/22 1941851 Sodium Chloride 10 ML PRN PRN 03/22 1845 AC IV 03/23 183 Sodium Chloride 1,000 ML .Q4H 03/22 1845 AC 03/22 IV 03/22 2244 1851 Sodium Chloride 10 ML PRN PRN 03/22 1845 AC IV 03/23 183 Orders Procedure Date/time Status IV SALINE LOCK 03/22 1832 Active URINALYSIS/COMPLETE 03/22 1832 Complete CBC WITH AUTO DIFF 03/22 1832 Complete CHEM 12 PROFILE 03/22 183 Complete Departure Departure Time of Disposition 2016 Disposition DC Home or Self Care(routine) Clinical Impression Primary Impression: Adverse drug reaction Condition STABLE Referrals Rolando Pierce MD (Family): 2 Days-Call Office Patient Instructions DI for Adverse Drug Reaction -- Allergic, DI for Adverse Drug Reaction -- GI Intolerance, DI for Adverse Drug Reaction -- Other Additional Instructions Given zofran 4 mg Q6H for nausea and advised to followup with PCP as needed. or return to the ED with any worsening symptoms. I do not see a reason to do a CT scan at this time Discharge Counseling Counseled pt/family regarding diagnosis, test results, medications/RX, home care, follow up needs Prescriptions Current Visit Scripts ONDANSETRON HCL (Zofran 4MG Tab) 4 MG PO Q6HP PRN NAUSEA AND VOMITING #40 TAB ED Critical Care Critical Care No If Critical Care minutes are documented, the time involved in the performance of seperately reportable procedures was not counted toward critical care time documented. I directly delivered medical care to this critically ill and/or injured patient. Timely evaluation and treatment was necessary to address the significant organ system(s) dysfunction present in this patient. at 2019
[2017-03-22 18:54] LABS: HEMOGLOBIN 13.9 g/dL (12.2-16.2); LYMPH # 1.3 K/mm3 (0.7-4.5); LYMPH % 25.7 % (10-50.0)
[2017-03-22 19:38] LABS: URINE BILIRUBIN - DIPSTICK NEGATIVE (NEG); URINE BLOOD NEGATIVE (NEG)
[2017-03-22] MEDS ORDERED: ZOFRAN4 MG PO (20:19)
[2017-03-22 21:53] VITALS: BP 123/68
--- OUTSIDE RECORDS SUMMARY | 2017-03-24 00:50 | External Medical Summary Rpt ---
Author Author , Organization [employer] Address Unknown Phone Unavailable Care Team Providers Care Content Engineer Name Role Phone ALFARIS MOH, ALFARIS Unavailable Unavailable MOH [facility] [place] [place], [facility] [place] ARNOLD HUBER, ARNOLD Unavailable Unavailable HUBER ARNOLD HUBER, ARNOLD Unavailable Unavailable HUBER ATKINS TRA, ATKINS Unavailable Unavailable TRA ATKINS TRA, ATKINS Unavailable Unavailable TRA MICHELLE ALI, MICHELLE Unavailable Unavailable ALI [facility] Unavailable Unavailable [facility] Unavailable Unavailable MEDICAL GROUP, [facility] Unavailable Unavailable OF [facility], [facility] BEINEKE, BEINEKE Unavailable Unavailable BEINEKE CARMEN, BEINEKE Unavailable Unavailable CARMEN BESSON, BESSON Unavailable Unavailable BESSON DOMINIQUE, BESSON Unavailable Unavailable DOMINIQUE [facility] Unavailable Unavailable [facility], [facility] Unavailable [facility]available [facility], [facility] BOLIEK KADIE, BOLIEK Unavailable Unavailable KADIE CERRATO, CERRATO Unavailable Unavailable CERRATO ALL, CERRATO ALL Unavailable Unavailable [facility] Unavailable Unavailable HOSPITAL, [facility] Unavailable Unavailable SERVICE, [facility]available Unavailable SERVICE, [facility] SVITLANA KILO, SVITLANA Unavailable Unavailable KILO CASE JUS, CASE JUS Unavailable Unavailable [facility] Unavailable Un[facility], [facility] [place] Unavailable Unavailable [facility], [facility] CHESTNUT, CHESTNUT Unavailable Unavailable HUMPHREY MEAGAN, HUMPHREY Unavailable Unavailable [facility], Unavailable Un[facility], Unavailable Unavailable [facility] Unavailable Unavailable [place], [facility] LUDIVINA WEISS JR KADIE, ISELA Unavailable Unavailable JR KADIE HARLEEN, HARLEEN Unavailable Unavailable HARLEEN ADRIANNA, Unavailable Unavailable HARLEEN ADRIANNA CELI, CELI Unavailable Unavailable CELI PHI, Unavailable Unavailable CELI PHI LOCKHART, LOCKHART Unavailable Unavailable FALLUJI NACHO, FALLUJI Unavailable Unavailable NACHO FEEBACK, FEEBACK Unavailable Unavailable MARIN JOSE ANGEL, MARIN Unavailable Unavailable JOSE ANGEL ARSLAN GILBERT, Unavailable Unavailable JR MANUELITO ROMAN, Unavailable Unavailable JR MANUELITO SOTOMAYOR ANKUR, ANKUR Unavailable Unavailable ANKUR BRYCE, ANKUR Unavailable Unavailable BRYCE ANKUR BRYCE, ANKUR Unavailable Unavailable BRYCE ANKUR, BK S, Unavailable Unavailable ANKUR, BK S [facility] Unavailable Unavailable [facility], [facility] Unavailable Unavailable HOSPITA, [facility] Unavailable Unavailable HOSPITA, [facility] RODRIGUEZ TRI, RODRIGUEZ TRI Unavailable Unavailable ANDREWS RHO, ANDREWS Unavailable Unavailable RHO [facility] Unavailable Unavailable [place], [facility] Unavailable Unavailable INC, [facility] Unavailable Unavailable HOSPITAL P, [facility] P BOYER CHRISTEL, BOYER CHRISTEL Unavailable Unavailable BOYER CHRISTEL, BOYER CHRISTEL Unavailable Unavailable [facility], Unavailable Unavailable [facility] JAQUEZ, JAQUEZ Unavailable Unavailable VAUGHN TERA, VAUGHN Unavailable Unavailable BRYAN LONDONO Unavailable Unavailable ILUYOMADE ROT, Unavailable Unavailable ILUYOMADE ROT FELICIA DUARTE Unavailable Unavailable [facility] Unavailable Unavailable GROUP PS, [facility] Unavailable Unavailable [facility], [facility] Unavailable Unavailable MEDICAL G, [facility] ELYSSA BURNETT, Unavailable Unavailable ELYSSA Burnett MD, Unavailable Unavailable Elyssa SCHWARTZ, Unavailable Unavailable KRISTEN SCHWARTZ KRASNOPOLSKY LAUREN, Unavailable Unavailable KRASNOPOLSKY LAUREN [facility] MA[facility]ESH MAI Unavailable Unavailable [facility], [facility] AMI Unavailable Unavailable [facility], [facility] MAI Unavailable Unavailable HOLDINGS, [facility] ISSA, ISSA Unavailable Unavailable ISSA JARON, ISSA Unavailable Unavailable JARON ISSA JARON, ISSA Unavailable Unavailable JARON SCOTT JR, SCOTT JR Unavailable Unavailable SCOTT JR DWI, SCOTT Unavailable Unavailable JR DWI [facility] BRITTNY MART Unavailable Unavailable BRITTNY ANT, BRITTNY ANT Unavailable Unavailable NAJERA, NAJERA Unavailable Unavailable LUKING, LUKING Unavailable Unavailable LUKING, LUKING Unavailable Unavailable LUKING MATTI, LUKING Unavailable Unavailable MATTI CHRIS, CHRIS Unavailable Unavailable VIANEY PAULETTE, VIANEY Unavailable Unavailable PAULETTE NOGUEIRA, NOGUEIRA Unavailable Unavailable NOGUEIRA JAM, Unavailable Unavailable NOGUEIRA JAM SUMA, MAX P, Unavailable Unavailable SUMA, MAX P [facility], Unavailable Unavailable [facility], Unavailable Unavailable PLL[facility], [facility] PETTEY JAM, PETTEY Unavailable Unavailable JAM PICKLESIMER JR WANDA, Unavailable Unavailable PICKLESIMER JR WANDA [facility], Unavailable Unavailable [facility], Unavailable Unavailable [facility] RADMANESH SHA, Unavailable Unavailable RADMANESH SHA RENUSCH, RENUSCH Unavailable Unavailable RENUSCH CASANDRA, RENUSCH Unavailable Unavailable CASANDRA ANDRES IV HEN, Unavailable Unavailable ANDRES IV HEN JASSO, JASSO Unavailable Unavailable JASSO, JASSO Unavailable Unavailable SADEK MOH, SADEK MOH Unavailable Unavailable SCALF LEI, SCALF LEI Unavailable Unavailable SCALF LEI, SCALF LEI Unavailable Unavailable SCALF HUBER, SCALF HUBER Unavailable Unavailable SCIFRES ANG, SCIFRES Unavailable Unavailable ANG SCIFRES ANG, SCIFRES Unavailable Unavailable ANG ANNA, ANNA Unavailable Unavailable SHASHY PATY, SHASHY Unavailable Unavailable PATY KIMBERLY, KIMBERLY Unavailable Unavailable KIMBERLY MAT, Unavailable Unavailable KIMBERLY MAT BENSON JOSE ANGEL, BENSON Unavailable Unavailable JOSE ANGEL RODRIGUEZ SHABANA, RODRIGUEZ SHABANA Unavailable Unavailable SOTINGEANU CARMEN, Unavailable Unavailable SOTINGEANU CARMEN [facility], [facility] Unavailable Unavailable [facility], [facility]available Unavailable [id number], [facility] WALKER FOR, WALKER Unavailable Unavailable FOR [facility] Unavailable Unavailable DEPT JAZZ, [facility] Unavailable Unavailable DEPT JAZZ, [facility] SANCHEZ, SANCHEZ Unavailable Unavailable SANCHEZ MICHELLE, SANCHEZ MICHELLE Unavailable Unavailable WELLS ELLEN, WELLS ELLEN Unavailable Unavailable WELLS SHA, WELLS SHA Unavailable Unavailable ROSENTHAL MAR, ROSENTHAL MAR Unavailable Unavailable SARAH KADIE, SARAH KADIE Unavailable Unavailable Purpose Continuity of Care Document - 01-04-2009 through 2016 Problems Code Diagnosis DOS Provider Status E669 OBESITY 02-25-2017 [facility] UNSPECIFIED PHYSICIANS GROUP I119 HYPERTENSIV 02-25-2017 [facility] E HEART PHYSICIANS DISEASE GROUP WITHOUT HEART FAILURE K449 DIAPHRAGMAT 02-25-2017 [facility] IC HERNIA PHYSICIANS W/O GROUP OBSTRUCTION OR GANGRENE R0600 DYSPNEA 02-25-2017 [facility] UNSPECIFIED PHYSICIANS GROUP R079 CHEST PAIN 02-25-2017 [facility] UNSPECIFIED PHYSICIANS GROUP J310 CHRONIC 02-17-2017 [facility] RHINITIS PHYSICIANS GROUP J329 CHRONIC 02-17-2017 [facility] SINUSITIS PHYSICIANS UNSPECIFIED GROUP J342 DEVIATED 02-17-2017 [facility] NASAL PHYSICIANS SEPTUM GROUP K5900 CONSTIPATIO 02-14-2017 [place] [facility] UNSPECIFIED IMAGING ASS I998 OTHER 02-11-2017 [facility] DISORDER OF [facility] CIRCULATORY SYSTEM R0602 SHORTNESS 02-11-2017 [facility] OF BREATH [facility] INC G8929 OTHER 02-10-2017 [facility] CHRONIC [facility] PAIN INTERNAL MED G05014 PAIN IN 02-10-2017 [facility] LEFT [facility]LEY SHOULDER INTERNAL MED M5440 LUMBAGO 02-10-2017 [facility] WITH VALLEY SCIATICA INTERNAL UNSPECIFIED MED SIDE R002 PALPITATION 01-31-2017 [facility] S PHYSICIANS GROUP R5383 OTHER 01-31-2017 [facility] FATIGUE PHYSICIANS GROUP M5136 OTH 01-30-2017 [facility] [place] RAL DISC [facility] DEGEN LUMBAR REGION E559 VITAMIN D 01-29-2017 LAB [facility] DEFICIENCY MAI UNSPECIFIED HOLDINGS M545 LOW BACK 01-29-2017 [facility] S PSC R072 PRECORDIAL 01-29-2017 [facility] PAIN [facility]YSICIANS, PLLC R0789 OTHER CHEST 01-29-2017 [place] [facility] R110 NAUSEA 01-29-2017 [facility] P Q72658 OTHER 01-29-2017 LAB [facility] SPECIFIED MAI POSTPROCEDU HOLDINGS [facility] STATES M792 NEURALGIA 01-27-2017 [facility] AND VALLEY NEURITIS INTERNAL UNSPECIFIED MED I10 ESSENTIAL 01-26-2017 [facility] HYPERTENSIO INC N M542 CERVICALGIA 01-26-2017 [facility] INC X67718 SPONDYLOSIS 01-22-2017 [place] W/O MEDICAL MYELOPATH/R IMAGING ASS ADICULOPATH Y CERV RGN R202 PARESTHESIA 01-22-2017 [place] OF SKIN MEDICAL IMAGING ASS [id number] STRAIN 01-22-2017 [facility] P NECK LEVL INIT ENC Z9884 BARIATRIC 01-21-2017 [facility] SURGERY [facility] STATUS INC R200 ANESTHESIA 01-20-2017 [facility] OF SKIN [facility] INC R51 HEADACHE 01-20-2017 [facility] INC [id number] STRAIN 01-16-2017 [facility] MUSCLE & PHYSICIANS, TENDON UNS PLLC WALL THORAX INIT ENC M797 FIBROMYALGI 01-11-2017 [place] [facility] H[facility]PITAL J74941 OTHER LONG 01-11-[address] [place] [facility] DRUG THERAPY Z882 ALLERGY 01-11-2017 [place] STATUS TO [facility] S STATUS Z886 ALLERGY 01-11-2017 [place] [facility]US TO [facility] ANALGESIC HOSPITAL AGENT STATUS Z888 ALLERGY 01-11-2017 [place] STATUS OTH [facility] BIOLOG [facility] STS H9203 OTALGIA 01-10-2017 [place] BILATERAL [facility] INC I209 ANGINA 01-10-2017 [facility] PECTORIS [facility] UNSPECIFIED INC R071 CHEST PAIN 01-07-2017 [place] BREATHING INTERNAL MED J069 ACUTE UPPER 01-04-2017 [facility] RESPIRATORY INC INFECTION UNSPECIFIED Z720 TOBACCO USE 01-04-2017 [facility] INC E63921 MUSCLE 12-25-2016 [place] SPASM OF MEM HOS[facility] BACK INC R1013 EPIGASTRIC 12-25-2016 [place] PAIN [place] INTERNAL MED R4702 DYSPHASIA 12-25-2016 [place] INTERNAL MED B078 OTHER VIRAL 12-23-2016 [facility] WARTS K219 GASTRO-ESOP 12-23-2016 [facility] H REFLUX HEALTH DISEASE [place] WITHOUT ESOPHAGITIS 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 12-23-2016 [facility] ESOPHAGUS [place] K30 FUNCTIONAL 12-23-2016 [facility] DYSPEPSIA HEALTH [place] L218 OTHER 12-23-2016 [facility] SEBORRHEIC DERMATITIS L538 OTHER 12-23-2016 [facility] SPECIFIED ERYTHEMATOU S CONDITIONS R208 OTHER 12-23-2016 [facility] DISTURBANCE S OF SKIN SENSATION R238 OTHER SKIN 12-23-2016 [facility] CHANGES K5903 DRUG 12-17-2016 [facility] INDUCED [facility] CONSTIPATIO INC N [id number] ADVERSE 12-17-2016 [facility] EFFECT [facility] OTHER INC OPIOIDS INITIAL ENCOUNTER R1319 OTHER 12-13-2016 [facility] DYSPHAGIA MEM HOS[facility] INC K910 VOMITING 12-12-2016 [facility] FOLLOWING [facility]OS[facility] GASTROINTES INC TINAL SURGERY R609 EDEMA 12-12-2016 [place] UNSPECIFIED MEM HOS[facility] INC E6601 MORBID 12-11-2016 [facility] SEVERE HEALTH OBESITY DUE MONALISA TO EXCESS CALORIES E7800 PURE 12-11-2016 [facility] HYPERCHOLES HEALTH TEROLEMIA [place] UNSPECIFIED N393 STRESS 12-11-2016 [facility] INCONTINENC HEALTH E FEMALE MONALISA MALE Z903 ACQUIRED 12-11-2016 [facility] ABSENCE OF HEALTH STOMACH MONALISA B12454 ENCOUNTER 12-05-2016 [facility] FOR OTHER HEALTH PREPROCEDUR MEDICAL AL GROUP EXAMINATION K210 GASTRO-ESOP 11-22-2016 [facility] HAGEAL PHYSICIANS, REFLUX PLLC DISEASE W/ ESOPHAGITIS K625 HEMORRHAGE 11-19-2016 [place] OF [place] AND [place] RECTUM INTERNAL MED M546 PAIN IN 11-08-2016 [facility] THORACIC PHYSICIANS, SPINE PLLC C32651 PAIN IN 10-14-2016 [place] UNSPECIFIED MEDICAL HIP IMAGING ASS M533 SACROCOCCYG 10-14-2016 [place] EAL MEDICAL DISORDERS IMAGING ASS NEC Y440PDK CONTUSION 10-14-2016 [facility] LOWER BACK PHYSICIANS, & PELVIS PLLC INITIAL ENCOUNTER T5445BC UNSPECIFIED 10-14-2016 [place] INJURY MEDICAL LOWER BACK IMAGING ASS INITIAL ENCOUNTER Z5643DM UNSPECIFIED 10-14-2016 [place] INJURY OF MEDICAL PELVIS IMAGING ASS INITIAL ENCOUNTER H3581 RETINAL 10-11-2016 SCIF[facility] ANG EDEMA R040 EPISTAXIS 10-10-2016 [facility] INTERNAL MED E6609 OTHER 10-08-2016 [facility] OBESITY DUE BARIATRIC TO EXCESS SURGICAL CALORIES R109 UNSPECIFIED 10-08-2016 [facility] ABDOMINAL BARIATRIC PAIN SURGICAL J3489 OTHER 10-06-2016 [facility] SPECIFIED PHYSICIANS, DISORDERS PLLC NOSE AND NASAL SINUSES R05 COUGH 10-06-2016 [place] [facility] R0981 NASAL 10-06-2016 [place] CON[facility]ION [facility] IMAGING ASS J320 CHRONIC 10-03-2016 [facility] SINUSITIS F55013 POSTPROCEDU 10-03-2016 [place] [facility] DS INC ORGAN/STRUC FLW DS PROC E785 HYPERLIPIDE 10-02-2016 [facility] UNSPECIFIED MEDICAL G S46716 ENCOUNTER 09-28-2016 [facility] AL CARIOVASCUL AR EXAM E48586 ENCOUNTER 09-28-2016 [facility] LABOR[facility]ORY EXAM A6004 HERPESVIRAL 09-27-2016 [facility] PHYSICIANS VULVOVAGINI GROUP TIS N760 ACUTE 09-27-2016 [facility] VAGINITIS PHYSICIANS GROUP L520E3C CONCUSSION 09-21-2016 [facility] WITHOUT LOC [facility] INITIAL INC ENCOUNTER B6750MN UNSPECIFIED 09-21-2016 [place] INJURY OF MEDICAL HEAD IMAGING ASS INITIAL ENCOUNTER H6903 PATULOUS 09-19-2016 [facility] JARON EUSTACHIAN TUBE BILATERAL K97315 UNSPECIFIED 09-18-2016 [facility] PHYSICIANS OBSTRUCTION GROUP EUSTACHIAN TUBE BILAT J309 ALLERGIC 09-18-2016 [facility] RHINITIS PHYSICIANS UNSPECIFIED GROUP R42 DIZZINESS 09-18-2016 [facility] AND PHYSICIANS GIDDINESS GROUP R590 LOCALIZED 09-04-2016 [facility] P Z6834 BODY MASS 09-04-2016 [facility] INDEX BMI HEALTH 34.0-34.9 MEDICAL ADULT GROUP K5909 OTHER 09-03-2016 [facility] CONSTIPATIO GROUND N FAMILY CLINI R112 NAUSEA WITH 09-03-2016 [facility] VOMITING GROUND UNSPECIFIED FAMILY CLINI R748 ABNORMAL 09-03-2016 [facility] LEVELS OF GROUND OTHER SERUM FAMILY ENZYMES CLINI Z111 ENCOUNTER 09-02-2016 [facility] DEPT RESPIRATORY JAZZ TUBERCULOSI S M549 DORSALGIA 09-01-2016 [facility] UNSPECIFIED PHYSICIANS, PLLC R197 DIARRHEA 09-01-2016 [facility] UNSPECIFIED PHYSICIANS, [facility] G29870F ADVERSE 09-01-2016 [facility] P SRI INITIAL ENCOUNTER Z40850 UNS PLACE 09-01-2016 [facility] UNS NON [facility] P PLACE OF OCCUR EXT R195 OTHER FECAL 08-30-2016 [facility] ABNORMALITI INC ES Z202 CONTACT 08-30-2016 [facility] WITH DISTRICT EXPOSURE HLTH DEPT INFECT JAZZ SEXUAL MODE TRANSMS Z23 ENCOUNTER 08-30-2016 [facility] FOR DISTRICT IMMUNIZATIO HLTH DEPT N JAZZ R5381 OTHER 08-29-2016 [facility] MALAISE PHYSICIANS GROUP R9431 ABNORMAL 08-29-2016 [facility] ELECTROCARD PHYSICIANS IOGRAM GROUP Z8249 FAMILY HX 08-23-2016 [facility] ISCHEMIC PHYSICIANS HRT DZ OTH GROUP DZ CIRC SYSTEM P63067 LYMPHOCYTOP 08-21-2016 [facility] ENIA [facility] INC J3089 OTHER 08-21-2016 [facility] RHINITIS [place] J4520 MILD 08-21-2016 [facility] INTERMITTEN PARTNERS OF T ASTHMA [place] UNCOMPLICAT ED I115VFX OTHER 08-21-2016 [facility] ADVERSE PARTNERS OF FOOD [place] REACTIONS NEC SUBSEQUENT ENC M791 MYALGIA 08-17-2016 [facility], PLLC M898X9 OTHER 08-12-2016 [place] SPECIFIED MEDICAL DISORDERS IMAGING ASS BONE UNSPECIFIED SITE R599 ENLARGED 08-12-2016 [facility] LYMPH NODES [facility] INC UNSPECIFIED R1314 DYSPHAGIA 08-10-2016 [facility] PHARYNGOESO PHYSICIANS, PHAGEAL PLLC PHASE R5382 CHRONIC 08-07-2016 [facility] FATIGUE [facility] UNSPECIFIED INC J301 ALLERGIC 08-05-2016 [facility] RHINITIS PARTNERS OF DUE TO [place] POLLEN J3081 ALLERG 08-05-2016 [facility] RH[facility]IS [facility] OF D/T ANIMAL [place] CAT DOG HAIR & DANDER R591 GENERALIZED 08-05-2016 [facility] LYMPH NODES [facility] P I208 OTHER FORMS 08-02-2016 [facility] OF ANGINA [facility] P N68883 PAIN IN 08-02-2016 [place] RIGHT KNEE MEDICAL IMAGING ASS R55 SYNCOPE AND 08-02-2016 [facility] COLLAPSE PHYSICIANS, PLLC A983OGI UNSPECIFIED 08-02-2016 [place] INJURY OF MEDICAL NECK IMAGING ASS INITIAL ENCOUNTER I6287NC UNS INJURY 08-02-2016 [place] RT LOWER MEDICAL LEG INITIAL IMAGING ASS ENCOUNTER N281 CYST OF 08-01-2016 [facility] P K30771 OTHER 07-31-2016 [facility] INC R209 UNSPECIFIED 07-29-2016 [facility] PHYSICIANS, DISTURBANCE PLLC S OF SKIN SENSATION K589 IRRITABLE 07-24-2016 [facility] BOWEL PHYSICIANS SYNDROME GROUP WITHOUT DIARRHEA R102 PELVIC AND 07-24-2016 [facility] PERINEAL PHYSICIANS PAIN GROUP N831 CORPUS 07-22-2016 [facility] LUTEUM CYST PHYSICIANS GROUP N920 EXCESS & 07-22-2016 [facility] FREQUENT PHYSICIANS MENSTRUATIO GROUP N W/REGULAR CYCLE A59154Q STRAIN UNS 07-22-2016 [facility] MUSCLE FASC PHYSICIANS, TEND THIGH PLLC RT INITIAL ENC Z7251 HIGH RISK 07-22-2016 [facility]UA [facility] BEHAVIOR INC R12 HEARTBURN 07-18-2016 [facility] H938X9 OTHER 07-17-2016 [facility] SPECIFIED PHYSICIANS DISORDERS GROUP OF EAR UNSPECIFIED EAR J302 OTHER 07-17-2016 [facility] SEASONAL PHYSICIANS ALLERGIC GROUP RHINITIS R1310 DYSPHAGIA 07-13-2016 [place] UNSPECIFIED MEDICAL IMAGING ASS Z6171AN LACERATION 07-13-2016 [facility] W/O FOREIGN PHYSICIANS, BODY SCALP PLLC INITIAL ENC P2662SU SPRAIN 07-13-2016 [facility] UNSPECIFIED PHYSICIANS, SITE LT PLLC KNEE INITIAL ENCNTR R6889 OTHER 07-10-2016 [facility] SYMPTOMS HOSPITA AND SIGNS E780 PURE 07-09-2016 [facility] HYPERCHOLES BARIATRIC TEROLEMIA SURGICAL E876 HYPOKALEMIA 07-09-2016 [facility] P Z1231 ENCOUNTER 07-08-2016 [place] SCREENING MEDICAL MAMMO MALIG IMAGING ASS NEOPLASM BREAST H6990 UNSPECIFIED 07-07-2016 [facility] TUBE PHYS PSC DISORDER UNS EAR H938X3 OTHER 07-07-2016 [facility] SPECIFIED HEALTH DISORDERS [place] OF EAR BILATERAL M5432 SCIATICA 07-07-2016 [facility] LEFT SIDE EMERGENCY PHYS PSC R1010 UPPER 07-05-2016 [facility] ABDOMINAL PHYSICIANS, PAIN PLLC UNSPECIFIED R1084 GENERALIZED 06-29-2016 [facility] ABDOMINAL PHYSICIANS, PAIN PLLC I880 NONSPECIFIC 06-27-2016 [facility] MESENTERIC PHYSICIANS, PLLC LYMPHADENIT IS R100 ACUTE 06-27-2016 [facility] ABDOMEN AMBULANCE SERVICE R1031 RIGHT LOWER 06-26-2016 [facility] PAIN PHYS J44615 RIGHT LOWER 06-26-2016 [facility] COMMUNTI[facility] ABDOMINAL HOSPITA TENDERNESS N200 CALCULUS OF 06-24-2016 [place] KIDNEY [facility] 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 06-11-2016 [facility] S NOT ELSEWHERE CLASSIFIED M5386 OTHER 06-11-2016 [facility] SPECIFIED DORSOPATHIE S LUMBAR REGION D225 MELANOCYTIC 05-23-2016 [facility] NEVI OF TRUNK D2272 MELANOCYTIC 05-23-2016 [facility] NEVI LEFT LOWER LIMB INCLUDING HIP 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 05-23-2016 [facility] UNCERTAIN BEHAVIOR OF SKIN L400 PSORIASIS 05-23-2016 [facility] VULGARIS L408 OTHER 05-23-2016 [facility] L578 OTH SKN 05-23-2016 [facility] CHANGES D/T CHRN EXPS TO NONIONIZING RAD R9439 ABNORMAL 04-08-2016 [facility] RESULT OT HEALTH CARDIOVASCU [place] LR FUNCTION STUDY I340 NONRHEUMATI 04-04-2016 [facility] INSUFFICIEN CY I351 NONRHEUMATI 04-04-2016 [facility] AORTIC [facility] INSUFFICIEN CY I361 NONRHEUMATI 04-04-2016 [facility] TRICUSPID SERV [facility]OUND[facility] INSUFFICIEN CY H524 PRESBYOPIA 03-29-2016 [facility] CH[facility]STEL M2550 PAIN IN 03-26-2016 [facility] UNSPECIFIED MAI JOINT HOLDINGS D509 IRON 03-20-2016 [facility] DEFICIENCY [facility] ANEMIA INC UNSPECIFIED M7521 BICIPITAL 03-19-2016 [facility] TENDINITIS VALLEY RIGHT INTERNAL SHOULDER MED S17235 ATYP SQ 03-13-2016 [facility] CELLS UNDET LLC SIGNIFICANC E CYTOL SMER CERV V33777 ENCOUNTER 03-13-2016 [facility], INDIRECT FIRE INFANTRYMAN EXAM LLC GENERAL RTN W/ABNORMAL FIND G74005 ENCOUNTER 03-13-2016 [facility] INDIRECT FIRE INFANTRYMAN EXAM PHYSICIANS GENERAL RTN GROUP W/O ABNORMAL FIND Z113 ENCOUNTER 03-13-2016 [facility], SCREEN LLC INFECTIONS SEXL MODE TRANSMISSN M778 OTHER 12-04-2015 [facility] ENTHESOPATH [place]LEY IES NOT INTERNAL ELSEWHERE MED CLASSIFIED 76701 UNSPECIFIED 07-11-2015 [facility] 2167 BENIGN 07-11-2015 [facility] NEOPLASM SKIN LOWER LIMB INCLUDING HIP 2168 BENIGN 07-11-2015 [facility] NEOPLASM OF OTHER SPECIFIED SITES OF SKIN 2382 NEOPLASM OF 07-11-2015 [facility] UNCERTAIN BEHAVIOR OF SKIN 2720 PURE 07-11-2015 [facility] HYPERCHOLES TEROLEMIA 6961 OTHER 07-11-2015 [facility] PSORIASIS AND SIMILAR DISORDERS 7018 OTHER SPEC 07-11-2015 [facility] HYPERTROPHI C&ATROPHIC CONDITION SKIN 7020 ACTINIC 07-11-2015 [facility] KERATOSIS 36455 INFLAMED 07-11-2015 [facility] SEBORRHEIC KERATOSIS V700 ROUTINE 06-27-2015 [facility] DEPT [email or web address] FACL 75647 MORBID 06-20-2015 [facility]GICAL 03604 PAIN IN 06-20-2015 [facility], SITE [facility] UNSPECIFIED 7823 EDEMA 06-20-2015 [facility] 76409 OTHER 06-20-2015 [facility] DYSPNEA AND [facility] RESPIRATORY ABNORMALITI ES 7871 HEARTBURN 06-20-2015 [facility] 7904 NONSPEC 06-20-2015 [facility] ELEVATION [facility] OF LEVELS SURGICAL OF TRANSAMINAS E/LDH V4586 BARIATRIC 06-20-2015 [facility] SURGERY [facility] STATUS SURGICAL V7612 OTHER 06-19-2015 [facility] 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 MED 2689 UNSPECIFIED 06-12-2015 [facility] VITAMIN D [place] DEFICIENCY INTERNAL MED 5718 OTHER 06-12-2015 [facility]RON[facility] [place] NONALCOHOLI INTERNAL C LIVER MED DISEASE 7905 OTHER 06-12-2015 [facility] NONSPECIFIC [place] ABNORMAL INTERNAL SERUM MED ENZYME LEVELS 04358 UNSPEC 05-09-2015 [facility] DISORDERS PHYSICIANS BURSAE&TEND GROUP ONS SHOULDER REGION 7262 OTHER 05-09-2015 [facility] AFFECTIONS PHYSICIANS OF SHOULDER GROUP REGION NEC 79463 OBESITY, 05-04-2015 [facility] UNSPECIFIED OLOGY AND HEPATOL 3674 PRESBYOPIA 04-28-2015 [facility] 96684 CHEST PAIN 04-28-2015 [facility] 89615 ABDOMINAL 04-25-2015 [facility] [place] [facility] UNSPECIFIED HOSPITA SITE 4019 UNSPECIFIED 04-16-2015 [facility] [facility] HYPERTEN[facility] N 5990 URINARY 04-16-2015 [facility], INFECTION [facility] SITE NOT SPECIFIED 7948 NONSPECIFIC 04-16-2015 [facility] RESULTS INC LIVR FUNCTION STUDY 5739 UNSPECIFIED 04-14-2015 [facility] [place] DISORDER RADIOLOGY OF LIVER 7906 OTHER 04-14-2015 [facility] [place] [facility] BLOOD HOSPITA CHEMISTRY 5939 UNSPECIFIED 04-06-2015 [facility] DISORDER MEDICAL OF KIDNEY IMAGING ASS AND URETER 7891 HEPATOMEGAL 04-06-2015 [facility] OLOG[facility] AND HEPATOL V140 PERSONAL 04-05-2015 [place] HISTORY OF [facility] ALLERGY TO HOSPITAL P PENICILLIN 41729 ABDOMINAL 04-03-2015 [facility] PAIN, GENERALIZED 5758 OTHER 04-01-2015 [place] SPECIFIED [facility] DISORDER OF HOSPITAL P GALLBLADDER 96327 OTHER 04-01-2015 [place] SPECIFIED MEDICAL DISORDER OF IMAGING ASS KIDNEY AND URETER 16050 ABDOMINAL 04-01-2015 [facility] PAIN RIGHT MEDICAL UPPER IMAGING ASS QUADRANT 75836 ABDOMINAL 04-01-2015 [place] [facility] P 7295 PAIN IN 03-29-2015 [place] SOFT COMMUNTIY TISSUES OF HOSPITA LIMB V4589 OTHER 03-29-2015 [place] POSTSURGICA COMMUNTIY L STATUS HOSPITA OTHER 78826 OTHER 03-24-2015 [place] MALAISE AND COMMUNTIY FATIGUE HOSPITA V6700 FOLLOW-UP 03-21-2015 [facility] [place] EXAMINATION RADIOLOGY FOLLOWING UNSPEC SURGERY 35581 ESOPHAGEAL 03-20-2015 [place] [facility] PS 6256 FEMALE 03-20-2015 [place] STRESS COMMUNTIY INCONTINENC HOSPITA E 99297 PAIN IN 03-20-2015 [facility] JOINT, BARIATRIC MULTIPLE SURGICAL SITES 63078 DIASTASIS 03-20-2015 [place] OF MUSCLE COMMUNTIY HOSPITA 7892 SPLENOMEGAL 03-20-2015 [place] Y COMMUNTIY HOSPITA V8543 BODY MASS 03-20-2015 [place] INDEX COMMUNTIY 50.0-59.9 HOSPITA ADULT 2639 UNSPECIFIED 03-14-2015 [place] COMM[facility]TI[facility] PROTEIN-TEA HOSPITA [place]TRITIO N 86027 MIGRAINE 03-07-2015 [facility] UNSP W/O BARIATRIC 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 MIGRAINOSUS 41959 OTHER 03-07-2015 [facility] URINARY BARIATRIC INCONTINENC SURGICAL E 6929 CONTACT 03-06-2015 [facility] DERMATITIS& OTHER ECZEMA DUE UNSPEC CAUSE 6822 CELLULITIS 03-02-2015 [facility] P V148 PERSONAL 03-02-2015 [facility] SPEC MEDICINAL AGTS V571 OTHER 02-22-2015 [facility] THERAPY INC 2724 OTHER AND 02-20-2015 [place] UNSPECIFIED COMMUNTIY HOSPITA HYPERLIPIDE LILIANE 7245 UNSPECIFIED 02-20-2015 [place] BACKACHE COMMUNTIY HOSPITA V7283 OTHER 02-20-2015 [place] SPECIFIED COMMUNTIY PRE-OPERATI HOSPITA VE EXAMINATION 2875 UNSPECIFIED 02-15-2015 [facility] P PENIA 7932 NONSPC ABN 02-10-2015 [place] [facility] RAD&OTH [facility] EXAM OTH INTRTHOR ORGN V7282 PRE-OPERATI 02-10-2015 [place] [facility] VE SERV RESPIRATORY [facility]ATION EXAMINATION 5930 NEPHROPTOSI 02-09-2015 [facility] P 7802 SYNCOPE AND 02-01-2015 [facility] MEDICAL G 4139 OTHER AND 01-18-2015 [facility] UNSPECIFIED [facility] P PECTORIS 73156 SHORTNESS 01-18-2015 [facility] 82774 OTHER CHEST 01-18-2015 [facility] PAIN [facility] P 38675 OSTEOARTHRO 12-30-2014 [facility] Reddy INVLV MX SITES BUT NOT SPEC GEN 16793 PAIN IN 11-09-2014 [place] JOINT, MEDICAL SHOULDER IMAGING ASS REGION V5832 ENCOUNTER 11-09-2014 [place] FOR REMOVAL [facility] P 04778 PILAR CYST 11-02-2014 [facility] 57920 UNSPECIFIED 10-06-2014 [facility] PH[facility] IN CCE & UNS SITE 7840 HEADACHE 10-06-2014 [place] [facility] 99141 ATROPHIC 09-16-2014 [place] GASTRITIS COMMUNITY WITHOUT HOSPITA MENTION OF HEMORRHAGE 28716 OTHER SPEC 09-16-2014 [facility] WITHOUT MENTION HEMORRHAGE 93564 DYSPHAGIA 09-16-2014 [place] UNSPECIFIED ANESTHESIA GROUP PS 6869 UNSPEC 08-17-2014 [facility] LOCAL INFECTION SKIN&SUBCUT ANEOUS TISSUE V7284 UNSPECIFIED 08-09-2014 [facility] PRE-OPERATI INC VE EXAMINATION 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 7019 UNSPECIFIED 08-04-2014 [facility] HYPERTROPHI C&ATROPHIC CONDITION SKIN 08586 OTHER 08-04-2014 [facility] SEBORRHEIC KERATOSIS 7851 PALPITATION 08-04-2014 [facility] MEDICAL G V7281 PRE-OPERATI 07-21-2014 [facility] CARDIOVASCU MEDICAL G LAR EXAMINATION 77786 PAINFUL 07-05-2014 [facility] RESPIRATION V771 SCREENING 05-24-2014 [facility] DI[facility]ETES MELLITUS 470 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 4779 ALLERGIC 03-17-2014 [facility] RHINITIS CAUSE UNSPECIFIED 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 E849.8 E849.8 12-31-2013 [place] ACCIDENT IN [facility] E885.9 E885.9 FALL 12-31-2013 [place] [facility], Hospital TRIPPING, OR STUMBLING NEC V14.0 V14.0 12-31-2013 [place] HX-P[facility]ILL [facility] IN ALLERGY Hospital V14.1 V14.1 12-31-2013 [place] HX-ANTIBIOT [facility] ALLERGY Hospital NEC V01.6 V01.6 01-11-2013 [place] VENEREAL [facility] DIS CONTACT Hospital V0481 NEED 01-06-2009 [facility] PROPHYLACTI [facility] C CENTRAL VACCINATION BANK ACCT &INOCULATIO N FLU 25939 PAIN IN 01-04-2009 [place] [facility] THIGH 20544 DISPLCMT 01-04-2009 [place] LUMBAR [employer] INTERVERT 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 8460 SPRAIN AND 01-04-2009 [employer] LUMBOSACRAL Upd[employer] 8472 LUMBAR 01-04-2009 [place] [facility] STRAIN INC 72386 CONTUSION 01-04-2009 [employer] BACK [employer] 43869 CONTUSION 01-04-2009 [employer] BUTTOCK [employer] E8490 PLACE OF 01-04-2009 [place] OCCURRENCE, [facility] HOME [facility] E8859 FALL FROM 01-04-2009 [place] OTHER MEDICAL SLIPPING IMAGING TRIPPING OR ASSOCIATES STUMBLING B34.9 VIRAL INFECTION, UNSPECIFIED G43.909 MIGRAINE, UNSP, NOT INTRACTABLE , WITHOUT STATUS MIGRAINOSUS M25.512 PAIN IN LEFT SHOULDER M79.604 PAIN IN RIGHT LEG N39.0 URINARY TRACT INFECTION, SITE NOT SPECIFIED R07.89 OTHER CHEST PAIN R07.9 CHEST PAIN, UNSPECIFIED R10.9 UNSPECIFIED ABDOMINAL PAIN R11.0 NAUSEA R20.2 PARESTHESIA OF SKIN R30.0 DYSURIA R51 HEADACHE R53.1 WEAKNESS R94.5 ABNORMAL RESULTS OF LIVER FUNCTION STUDIES S16.1XXA STRAIN OF MUSCLE, FASCIA AND TENDON AT NECK LEVEL, INIT S29.019A STRAIN OF MUSCLE AND TENDON OF UNSP WALL OF THORAX, INIT T88.7XXA UNSP ADVERSE EFFECT OF DRUG OR MEDICAMENT, INIT ENCNTR Allergies, Adverse Reactions, Alerts Type Drug Allergy Adverse Reaction to Substance Substance Reaction Severity Penicillin I-RASH Intermediate Sulfonamide Related Unknown Unknown Codeine I-RASH Intermediate Penicillin V Unknown Unknown Trimethoprim I-RASH Intermediate Sulfamethoxazole I-RASH Intermediate Clinical Alert Notifications Alert Member has >/= 10 ED visits within the past 365 days Medications Na ND Rx Da Fi Fi Am Da Di Ph RX Ph St me C No te ll ll ou ys ag ar # ys at rm s nt no ma ic us Or Da si cy ia de te s n re d LI 00 03 04 30 30 00 CL Ac NZ 45 -2 -2 .0 00 IN ti ES 61 4- 8- 00 00 IC ve S 20 20 20 41 14 13 17 17 04 PH 5 0 71 AR MC MA G CY CA PS UL E RA 68 03 04 60 30 00 CL Ac NI 46 -2 -2 .0 00 IN ti TI 20 9- 1- 00 00 IC ve DI 24 20 20 42 NE 80 17 17 65 PH 5 91 AR 15 MA 0 CY MG TA BL ET OM 62 03 04 60 30 00 CL Ac EP 17 -2 -2 .0 00 IN ti RA 50 9- 1- 00 00 IC ve ZO 13 20 20 41 LE 64 17 17 68 PH [address] MA CY 40 MG CA PS UL E CY 00 03 04 28 14 00 CL Ac CL 59 -2 -1 .0 00 IN ti OB 13 2- 4- 00 00 IC ve EN 25 20 20 42 ZA 60 17 17 59 PH VT 1 23 AR IN MA E CY 5 MG TA BL ET BU 00 03 04 90 30 00 CL Ac SP 37 -2 -1 .0 00 IN ti IR 81 2- 4- 00 00 IC ve ON 15 20 20 42 E 00 17 17 59 PH HC 1 22 AR L MA 10 CY MG TA BL ET VE 68 03 04 30 30 00 CL Ac NL 38 -2 -1 .0 00 IN ti AF 20 2- 4- 00 00 IC ve AX 03 20 20 42 IN 40 17 17 32 PH E 6 78 AR HC MA L CY ER 37 .5 MG CA P MO 29 03 04 30 30 00 CL Ac NT 30 -2 -1 .0 00 IN ti EL 00 2- 4- 00 00 IC ve UK 22 20 20 41 01 17 17 09 PH T 0 31 AR SO MA D CY 10 MG TA BL ET 64 03 04 4. 28 00 CL Ac T 38 -2 -1 00 00 IN ti D2 00 2- 4- 0 00 IC ve 73 20 20 42 1. 70 17 17 35 PH 25 6 24 AR MA MG CY (5 0, 00 0 UN IT ) RI 13 03 04 30 30 00 CL Ac SP 66 -2 -1 .0 00 IN ti ER 80 2- 4- 00 00 IC ve ID 03 20 20 42 ON 66 17 17 35 PH E 0 23 AR 0. MA 5 CY MG TA BL ET LO 45 03 04 30 30 00 CL Ac RA 80 -2 -1 .0 00 IN ti TA 20 2- 4- 00 00 IC ve DI 65 20 20 42 NE 08 17 17 35 PH 7 22 AR 10 MA CY MG TA BL ET IS 62 03 04 30 30 00 CL Ac OS 17 -2 -1 .0 00 IN ti OR 50 1- 4- 00 00 IC ve BI 12 20 20 42 DE 83 17 17 58 PH 7 88 AR MN MA CY ER 30 MG TA BL ET OS 47 03 03 10 10 00 CL Ac EL 78 -0 -3 .0 00 IN ti TA 10 7- 1- 00 00 IC ve AK 47 20 20 42 01 17 17 44 PH R 3 26 AR PH MA OS CY 75 MG CA PS UL E VT 65 03 03 20 5 00 CL Ac OM 16 -0 -3 .0 00 IN ti ET 20 8- 1- 00 00 IC ve CARTY 74 20 20 42 ZI 51 17 17 45 PH NE 0 47 AR MA 12 CY .5 MG TA BL ET HY 00 03 03 [address] 40 -0 -3 .0 00 TE ti OC 60 2- 1- 00 01 ve OD 12 20 20 17 AI ON 40 17 17 34 D -A 1 70 PH CE AR TA MA AK CY NO PH #3 93 7. 8 5- 32 5 CL 63 03 03 21 7 00 RI Ac IN 30 -0 -3 .0 00 TE ti DA 40 2- 1- 00 01 ve MY 69 20 20 17 AI CI 30 17 17 34 D N 1 69 PH HC AR L MA 30 CY 0 MG #3 93 CA 8 PS UL E GA 45 03 03 90 30 00 CL Ac BA 96 -0 -3 .0 00 IN ti PE 30 6- 1- 00 00 IC ve NT 55 20 20 42 IN 55 17 17 42 PH 0 60 AR 10 MA 0 CY MG CA PS UL E ON 67 03 03 10 2 00 CL Ac DA 87 -0 -3 .0 00 IN ti NS 70 6- 1- 00 00 IC ve ET 16 20 20 42 RO 93 17 17 42 PH N 0 18 AR HC MA L CY 4 MG TA BL ET LO 45 02 03 30 30 00 CL Ac RA 80 -2 -2 .0 00 IN ti TA 20 4- 4- 00 00 IC ve DI 65 20 20 41 NE 08 17 17 74 PH 7 07 AR 10 MA CY MG TA BL ET VE 68 02 03 30 30 00 CL Ac NL 38 -2 -2 .0 00 IN ti AF 20 3- 4- 00 00 IC ve AX 03 20 20 42 IN 40 17 17 32 PH E 6 78 AR HC MA L CY ER 37 .5 MG CA P OM 62 02 03 60 30 00 CL Ac EP 17 -2 -2 .0 00 IN ti RA 50 6- 4- 00 00 IC ve ZO 13 20 20 41 LE 64 17 17 68 PH [address] MA CY 40 MG CA PS UL E CL 00 02 03 50 14 00 CL Ac OB 47 -2 -2 .0 00 IN ti ET 20 6- 4- 00 00 IC ve 40 20 20 42 OL 25 17 17 05 PH 0 72 AR 0. MA 05 CY % SO ROSS TI ON BU 00 02 03 90 30 00 CL Ac SP 37 -2 -2 .0 00 IN ti IR 81 6- 4- 00 00 IC ve ON 15 20 20 42 E 00 17 17 08 PH HC 1 76 AR L MA 10 CY MG TA BL ET RA 00 02 03 60 30 00 CL Ac NI 78 -2 -2 .0 00 IN ti TI 11 6- 4- 00 00 IC ve DI 88 20 20 42 NE 31 17 17 08 PH 0 96 AR 15 MA 0 CY MG TA BL ET ET 62 03 03 20 10 00 CL Ac OD 55 -0 -2 .0 00 IN ti OL 90 1- 4- 00 00 IC ve AC 25 20 20 42 00 17 17 39 PH 20 1 19 AR 0 MA MG CY CA PS UL E TI 60 03 03 20 7 00 CL Ac ZA 50 -0 -2 .0 00 IN ti NI 50 1- 4- 00 00 IC ve DI 25 20 20 42 NE 20 17 17 39 PH 2 18 AR HC MA L CY 4 MG TA BL ET RI 13 02 03 30 30 00 CL Ac SP 66 -2 -2 .0 00 IN ti ER 80 4- 4- 00 00 IC ve ID 03 20 20 42 ON 66 17 17 32 PH E 0 44 AR 0. MA 5 CY MG TA BL ET FL 50 02 03 16 30 00 CL Ac UT 38 -2 -2 .0 00 IN ti IC 30 4- 4- 00 00 IC ve 70 20 20 41 ON 01 17 17 53 PH E 6 48 AR VT MA OP CY 50 MC G SP RA Y MO 00 02 03 30 30 00 CL Ac NT 60 -2 -2 .0 00 IN ti EL 34 4- 4- 00 00 IC ve UK 65 20 20 41 53 17 17 09 PH T 2 31 AR SO MA D CY 10 MG TA BL ET LI 00 02 03 30 30 00 CL Ac NZ 45 -2 -2 .0 00 IN ti ES 61 4- 4- 00 00 IC ve S 20 20 20 41 14 13 17 17 04 PH 5 0 71 AR MC MA G CY CA PS UL E 64 02 03 4. 28 00 CL Ac T 38 -2 -2 00 00 IN ti D2 00 4- 4- 0 00 IC ve 73 20 20 41 1. 70 17 17 47 PH 25 6 11 AR MA MG CY (5 0, 00 0 UN IT ) CY 00 02 03 28 14 00 CL Ac CL 59 -2 -1 .0 00 IN ti OB 13 1- 7- 00 00 IC ve EN 25 20 20 42 ZA 60 17 17 30 PH VT 1 05 AR IN MA E CY 5 MG TA BL ET TI 55 02 03 20 7 00 WA Ac ZA 11 -1 -1 .0 00 L- ti NI 10 8- 7- 00 07 MA ve DI 18 20 20 39 RT NE 01 17 17 34 5 68 PH HC AR L MA 4 CY MG #4 TA 93 BL ET DI 16 02 03 30 15 00 WA Ac CL 57 -1 -1 .0 00 L- ti OF 10 8- 7- 00 07 MA ve EN 20 20 20 39 RT AC 15 17 17 34 0 69 PH SO AR D MA EC CY 75 #4 93 MG TA B TE 51 02 03 20 3 00 CL Ac RC 67 -1 -1 .0 00 IN ti ON 21 0- 0- 00 00 IC ve AZ 30 20 20 41 OL 20 17 17 24 PH E 0 65 AR 0. MA 8% CY CR EA M VT 59 02 03 10 5 00 RI Ac ED 74 -1 -1 .0 00 TE ti NI 60 2- 0- 00 01 ve SO 17 20 20 17 AI NE 50 17 17 07 D 6 89 PH 20 AR MA MG CY TA #3 BL 93 ET 8 AZ 50 02 03 6. 5 00 RI Ac IT 11 -1 -1 00 00 TE ti HR 10 2- 0- 0 01 ve OM 78 20 20 17 AI YC 76 17 17 07 D IN 6 88 PH AR 25 MA 0 CY MG #3 TA 93 BL 8 ET CL 50 01 03 50 14 00 CL Ac OB 38 -3 -0 .0 00 IN ti ET 30 0- 3- 00 00 IC ve 26 20 20 42 OL 65 17 17 05 PH 0 72 AR 0. MA 05 CY % SO ROSS TI ON VE 68 02 03 14 14 00 CL Ac NL 38 -0 -0 .0 00 IN ti AF 20 7- 3- 00 00 IC ve AX 03 20 20 42 IN 40 17 17 15 PH E 6 16 AR HC MA L CY ER 37 .5 MG CA P FL 00 01 02 16 30 00 CL Ac UT 05 -2 -2 .0 00 IN ti IC 43 0- 4- 00 00 IC ve 27 20 20 41 ON 09 17 17 53 PH E 9 48 AR VT MA OP CY 50 MC G SP RA Y RI 13 01 02 30 30 00 CL Ac SP 66 -2 -2 .0 00 IN ti ER 80 5- 4- 00 00 IC ve ID 03 20 20 41 ON 66 17 17 74 PH E 0 06 AR 0. MA 5 CY MG TA BL ET AC 46 01 02 60 30 00 CL Ac ID 03 -2 -2 .0 00 IN ti 60 5- 4- 00 00 IC ve RE 00 20 20 41 DU 71 17 17 76 PH CE 2 22 AR R MA 75 CY MG TA BL ET 64 01 02 4. 28 00 CL Ac T 38 -2 -2 00 00 IN ti D2 00 5- 4- 0 00 IC ve 73 20 20 41 1. 70 17 17 47 PH 25 6 11 AR MA MG CY (5 0, 00 0 UN IT ) MO 16 01 02 30 30 00 CL Ac NT 72 -2 -2 .0 00 IN ti EL 90 5- 4- 00 00 IC ve UK 11 20 20 41 91 17 17 09 PH T 5 31 AR SO MA D CY 10 MG TA BL ET LI 00 01 02 30 30 00 CL Ac NZ 45 -2 -2 .0 00 IN ti ES 61 5- 4- 00 00 IC ve S 20 20 20 41 14 13 17 17 04 PH 5 0 71 AR MC MA G CY CA PS UL E OM 60 01 02 30 30 00 CL Ac EP 50 -2 -2 .0 00 IN ti RA 50 0- 4- 00 00 IC ve ZO 14 20 20 41 LE 60 17 17 68 PH [address] MA CY 40 MG CA PS UL E BU 00 02 02 90 30 00 CL Ac SP 37 -0 -2 .0 00 IN ti IR 81 1- 4- 00 00 IC ve ON 15 20 20 42 E 00 17 17 08 PH HC 1 76 AR L MA 10 CY MG TA BL ET CY 00 02 02 14 7 00 CL Ac CL 59 -0 -2 .0 00 IN ti OB 15 1- 4- 00 00 IC ve EN 65 20 20 42 ZA 81 17 17 08 PH VT 0 66 AR IN MA E CY 10 MG TA BL ET RA 11 01 02 10 5 00 RI Ac 82 -2 -2 .0 00 TE ti CO 23 4- 4- 00 01 ve L- 16 20 20 16 AI RI 50 17 17 83 D TE 0 28 PH AR 10 MA 0 CY MG #3 CA 93 PS 8 UL E RA 11 01 02 10 5 00 RI Ac 82 -2 -2 .0 00 TE ti BI 23 4- 4- 00 01 ve SA 34 20 20 16 AI CO 07 17 17 83 D DY 0 27 PH L AR EC MA 5 CY MG #3 93 TA 8 BL ET HY 00 01 02 [address] 40 -1 -[address] ti OC 60 8- 7- 00 00 SI ve OD 12 20 20 47 DE ON 40 17 17 29 -A 5 25 PH CE AR TA MA AK CY NO PH OF CY 7. NT 5- HI 32 AN 5 A IN C GE 60 01 02 5. 7 00 CL Ac NT 75 -1 -1 00 00 IN ti AM 80 4- 7- 0 00 IC ve IC 18 20 20 41 IN 80 17 17 91 PH 3 5 53 AR MA MG CY /M L EY E DR OP S AC 46 12 02 60 30 00 CL Ac ID 03 -2 -0 .0 00 IN ti 60 9- 3- 00 00 IC ve RE 00 20 20 41 DU 71 16 17 76 PH CE 2 22 AR R MA 75 CY MG TA BL ET PO 51 12 01 25 15 00 CL Ac LY 99 -2 -2 5. 00 IN ti ET 10 7- 7- 00 00 IC ve HY 45 20 20 0 41 LE 75 16 17 74 PH NE 8 22 AR MA GL CY YC OL 33 50 PO WD MO 16 12 01 30 30 00 CL Ac NT 72 -2 -2 .0 00 IN ti EL 90 7- 7- 00 00 IC ve UK 11 20 20 41 91 16 17 09 PH T 5 31 AR SO MA D CY 10 MG TA BL ET LI 00 12 01 30 30 00 CL Ac NZ 45 -2 -2 .0 00 IN ti ES 61 7- 7- 00 00 IC ve S 20 20 20 41 14 13 16 17 04 PH 5 0 71 AR MC MA G CY CA PS UL E OM 60 12 01 30 30 00 CL Ac EP 50 -2 -2 .0 00 IN ti RA 50 3- 7- 00 00 IC ve ZO 14 20 20 41 LE 60 16 17 68 PH [address] MA CY 40 MG CA PS UL E NA 68 12 01 20 10 00 CL Ac VT 46 -2 -2 .0 00 IN ti OX 20 7- 7- 00 00 IC ve EN 19 20 20 41 00 16 17 74 PH 50 5 01 AR 0 MA MG CY TA BL ET RI 13 12 01 30 30 00 CL Ac SP 66 -2 -2 .0 00 IN ti ER 80 7- 7- 00 00 IC ve ID 03 20 20 41 ON 66 16 17 12 PH E 0 39 AR 0. MA 5 CY MG TA BL ET LO 45 12 01 30 30 00 CL Ac RA 80 -2 -2 .0 00 IN ti TA 20 7- 7- 00 00 IC ve DI 65 20 20 41 NE 08 16 17 46 PH 7 99 AR 10 MA CY MG TA BL ET BU 00 12 01 90 30 00 CL Ac SP 37 -2 -2 .0 00 IN ti IR 81 7- 7- 00 00 IC ve ON 15 20 20 41 E 00 16 17 47 PH HC 1 00 AR L MA 10 CY MG TA BL ET 51 12 01 4. 28 00 CL Ac T 99 -2 -2 00 00 IN ti D2 10 7- 7- 0 00 IC ve 60 20 20 41 1. 40 16 17 47 PH 25 1 11 AR MA MG CY (5 0, 00 0 UN IT ) NA 68 12 01 14 7 00 CL Ac VT 46 -1 -2 .0 00 IN ti OX 20 7- 0- 00 00 IC ve EN 19 20 20 41 00 16 17 65 PH 50 5 58 AR 0 MA MG CY TA BL ET AM 57 12 01 30 10 00 CL Ac OX 23 -1 -2 .0 00 IN ti IC 70 5- 0- 00 00 IC ve IL 03 20 20 41 LI 10 16 17 63 PH N 5 64 AR 50 MA 0 CY MG CA PS UL E IM 45 12 01 24 24 00 CL Ac IQ 80 -2 -2 .0 00 IN ti UI 20 0- 0- 00 00 IC ve MO 36 20 20 41 D 86 16 17 68 PH 5% 2 09 AR MA CR CY EA M PA CK ET FL 00 12 01 16 30 00 CL Ac UT 05 -0 -0 .0 00 IN ti IC 43 5- 9- 00 00 IC ve 27 20 20 41 ON 09 16 17 53 PH E 9 48 AR VT MA OP CY 50 MC G SP RA Y BU 00 02 0 No TA 60 -0 LB 32 7- Lo -A 54 20 ng CE 42 14 er TA 1 AK Ac N- ti CA ve FF 50 -3 25 -4 0 Ce 00 02 0 No ft 00 -1 ri 41 8- Lo ax 96 20 ng on 20 13 er e 2 25 Ac 0M ti G ve Vi al LI 63 02 0 No DO 32 -1 CA 30 8- Lo IN 20 20 ng E 11 13 er HC 0 L Ac 1% ti ve AL AZ 59 02 0 No IT 76 -1 HR 23 8- Lo OM 06 20 ng YC 00 13 er IN 3 Ac 25 ti 0 ve MG TA BL ET CY 59 02 02 00 21 7 CL 18 GA Ac CL 74 -1 -2 .0 IN 75 IN ti OB 60 2- 6- 00 IC 11 EY ve EN 17 20 20 ZA 70 09 09 PH AK VT 6 AR CH IN MA AE E CY L 10 S MG TA BL ET ME 59 02 02 00 21 6 CL 18 GA Ac TH 74 -1 -2 .0 IN 75 IN ti YL 60 2- 6- 00 IC 10 EY ve VT 00 20 20 ED 10 09 09 PH AK NI 3 AR CH SO MA AE LO CY L NE S 4 MG DO SE PK ME 00 12 02 00 10 10 WA 70 WI Ac LO 37 -1 -1 .0 L- 05 CK ti XI 81 3- 2- 00 MA 70 ER ve CA 06 20 20 RT 6 M 60 08 09 JE 7. 1 PH FF 5 AR RE MG MA Y CY TA BL #5 ET 91 00 12 02 00 12 3 WA 44 WI Ac 40 -1 -1 .0 L- 73 CK ti 60 3- 2- 00 MA 93 ER ve 35 20 20 RT 0 80 08 09 JE 1 PH FF AR RE MA Y CY #5 91 Immunization Name Date Route CVX Reacti Commen Provid Is Given on t er Refuse d TDAP [facility] No VACCIN [address] YRS/> HLTH IM DEPT JAZZ IIV3 [place] No VACCIN 2008 ON CO E [facility] 0.5 ML DOSAGE IM USE Vital Signs 12-05-2016 11:40 Name Value Interpretat Reference Comment ion Range Glucose 88 mg/dL 70-100 Bld-mCnc 12-31-2013 17:30 Name Value Interpretat Reference Comment ion Range BP 83 mm[Hg] Diastolic BP Systolic 133 mm[Hg] Heart 83 /min Rate/Pulse O2% 98 % Respiratory 18 /min Rate 12-31-2013 17:23 Name Value Interpretat Reference Comment ion Range BP 80 mm[Hg] Diastolic BP Systolic 133 mm[Hg] Heart 90 /min Rate/Pulse O2% 99 % Respiratory 18 /min Rate 01-11-2013 18:14 Name Value Interpretat Reference Comment ion Range BP 63 mm[Hg] Diastolic BP Systolic 102 mm[Hg] Heart 87 /min Rate/Pulse O2% 96 % Respiratory 16 /min Rate 01-11-2013 18:09 Name Value Interpretat Reference Comment ion Range Body 98.1 [degF] Temperature BP 63 mm[Hg] Diastolic BP Systolic 112 mm[Hg] Heart 81 /min Rate/Pulse O2% 95 % Respiratory 18 /min Rate Results Labs Lab Lab Date Result Refere Interp Status Commen Order Detail nces retati t Range on CBC (hemogram) Bld Auto (12-05-2016 11:40) WBC 4.70 3.50-10 complet nRBC 017 10*3/mm .80 ed cor # 11:40 3 Bld RBC # 12-05-2 4.66 3.89-5. complet Bld 017 10*6/mm 14 ed Auto 11:40 3 Hgb 14.2 11.5-15 complet Bld-mCn 017 g/dL .5 ed c 11:40 Hct VFr 41.6 % 34.5-44 complet Bld 017 .0 ed Auto 11:40 MCV RBC 89.3 fL 80.0-99 complet Auto 017 .0 ed 11:40 MCH RBC 30.5 pg 27.0-31 complet Qn 017 .0 ed Auto 11:40 MCHC 01-12-2 34.1 32.0-36 complet RBC 017 g/dL .0 ed Auto-mC 11:40 nc RDW RBC 12.2 % 11.3-14 complet 017 .5 ed Auto-Rt 11:40 o RDW RBC 39.2 fl 37.0-54 complet Auto 017 .0 ed 11:40 PMV Bld 8.5 fL 6.0-12. complet Auto 017 0 ed 11:40 Platele 172 150-450 complet t # Bld 017 10*3/mm ed Auto 11:40 3 Hgb A1c Bld (12-05-2016 11:40) Comment: The [place] [employer] recommends maintenance of Hemoglobin A1C at 7.0% or lower. Goals for Hemoglobin A1C reduction may need to be modified if hypoglycemia is a problem. Hgb A1c 4.90 % 4.80-5. complet MFr 017 60 ed Bld 11:40 B-HCG Ur Ql (01-11-2013 17:40) B-HCG -18-2 NEGATIV NEG complet Ur Ql 013 E ed 17:40 URINALYSIS/COMPLETE (01-11-2013 17:40) URINE -18-2 YELLOW YELLOW complet COLOR 013 ed 17:40 URINE -18-2 Sl CLEAR complet APPEARA 013 Cloudy ed NCE 17:40 URINE -18-2 NEGATIV NEG complet GLUCOSE 013 E ed - 17:40 DIPSTIC K URINE -18-2 NEGATIV NEG complet BILIRUB 013 E ed IN - 17:40 DIPSTIC K URINE -18-2 NEGATIV NEG complet KETONE 013 E mg/dL ed 17:40 URINE -18-2 1.025 1.005-1 complet SPECIFI 013 UNK .030 ed C 17:40 GRAVITY URINE -18-2 1+ NEG complet BLOOD 013 ed 17:40 URINE -18-2 6.0 UNK 5.0-8.5 complet PH 013 ed 17:40 URINE -18-2 NEGATIV NEG complet PROTEIN 013 E mg/dL ed - 17:40 DIPSTIC K URINE -18-2 0.2 NEG complet UROBILI 013 E.U./dL ed NOGEN - 17:40 DIPSTIC K URINE 01-11-2 NEGATIV NEG complet NITRATE 013 E ed - 17:40 DIPSTIC K URINE 18-2 TRACE NEG complet LEUK 013 ed ESTERAS 17:40 E URINE 18-2 3-5 0 complet RBC 013 rbc/hpf ed 17:40 URINE -18-2 3-5 O complet WBC 013 wbc/hpf ed 17:40 URINE 18-2 10-20 0-5 complet SQUAMOU 013 #/hpf ed S CELLS 17:40 URINE 18-2 1+ O complet BACTERI 013 ed A 17:40 Procedures Procedure DOS Code Location Performer Comment ECG 37586 [facility] ROUTINE 7 PHYSICIAN ECG S GROUP W/LEAST 12 LDS I&R ONLY APPL 16563 [facility]/> [facility] INC INC TRACTION MECHANICA L APPL 21169 [facility]/> AREAS INC INC ELEC STIMJ UNATTENDE D APPLICATI 36924 [facility] MODALITY INC INC 1/> AREAS HOT/COLD PACKS APPLICATI 41615 [facility] MODALITY INC INC 1/> AREAS HOT/COLD PACKS APPL 55426 [facility]/> AREAS INC INC ELEC STIMJ UNATTENDE D APPL 21545 [facility]/> AREAS INC INC TRACTION MECHANICA L RADEX 45614 [place] [facility] 7 MEDICAL COMPL IMAGING W/DCBTS&/ ASS ERC VIEWS ECG 26614 [facility] ECG INC INC W/LEAST 12 LDS TRCG ONLY W/O I&R APPL 84971 [facility]/> AREAS INC INC TRACTION MECHANICA L APPL 87589 [facility]AL[facility]/> AREAS INC INC ELEC STIMJ UNATTENDE D ECG 89244 [facility] ROUTINE 7 PHYSICIAN ECG S GROUP W/LEAST 12 LDS I&R ONLY APPLICATI 01712 [facility] MODALITY INC INC 1/> AREAS HOT/COLD PACKS APPLICATI 89087 [facility] MODALITY INC INC 1/> AREAS HOT/COLD PACKS APPL 20182 [facility]AL[facility] 1/> AREAS INC INC ELEC STIMJ UNATTENDE D APPL 66046 [facility]/> AREAS INC INC TRACTION MECHANICA L APPL 42287 [facility]AL[facility] 1/> AREAS INC INC ELEC STIMJ UNATTENDE D ECG 21597 [facility] ROUTINE 7 PHYSICIAN ECG S GROUP W/LEAST 12 LDS I&R ONLY ECG 24701 [facility] ECG INC INC W/LEAST 12 LDS TRCG ONLY W/O I&R APPLICATI 03840 [facility] ON [facility] MODALITY INC INC 1/> AREAS HOT/COLD PACKS THERAPEUT 80056 [facility] IC PX 1/> 7 [facility] AREAS INC INC EACH 15 MIN EXERCISES ORGANIC 87023 [facility] ACID 1 7 [facility] [place]IT[place] [address] [facility] PARATHORM 7 [facility] ONE [facility] MRI [address]674 [facility] CANAL ORTHOPAED LUMBAR ICS PSC W/O CONTRAST MATERIAL PREALBUMI 18990 [facility] N 7 [place] [address] [facility] TROPONIN 7 [facility] [place] [address] [facility] MAGNESIUM 7 [facility] CREATINE 55549 [facility] KINASE MB 7 [facility] [place] [address] [facility] FOLIC 7 [facility] ACID [facility] SERUM 25 26255 [facility] HYDROXY 7 [facility] INCLUDES [facility] HOLD[facility] FRACTIONS IF PERFORMED AMB A0427 [facility] SERVICE 7 AMBULANCE AMBULANCE ALS SERVICE SERVICE EMERGENCY TRANSPORT LEVEL 1 CREATINE 68172 [facility] KINASE 7 [facility] [place] [address] [facility] FERRITIN 7 [facility]INGS GROUND A0425 [facility] MILEAGE 7 AMBULANCE AMBULANCE PER SERVICE SERVICE STATUTE MILE COMPREHEN 77247 [facility] SIVE 7 [facility] METABOLIC [facility] PANEL RADIOLOGI 26085 [facility] C EXAM [facility] CHEST 2 INC INC VIEWS [place]ONTAL&[place] [address] [facility] LAB MAHESH TOCOPHERO 7 MAI MAI L ALPHA HOLDINGS HOLDINGS VITAMIN E ECG 77785 [facility] [facility] [facility]OUTINE [facility] ECG INC INC W/LEAST 12 LDS TRCG ONLY W/[place] [address] LAB MAHESH LAB MAHESH PHOSPHORU 7 MAI MAI [place] [address] LAB MAHESH LAB MAHESH THIAMINE- 7 MAI MAI VITAMIN HOLDINGS HOLD[place] B-1 [place] [address] LAB MAHESH LAB MAHESH THYROID 7 MAI MAI STIMULATI HOLDINGS HOLDINGS NG HORMONE TSH ECG 32882 [facility] ROUTINE 7 PHYSICIAN ECG S, PLLC W/LEAST 12 LDS [place] [address] LAB MAHESH LAB MAHESH ZINC 7 [place] [address] LAB MAHESH LAB MAHESH IRON 7 MAI MAI HOLDINGS HOLDINGS BLOOD 96423 [facility] COUNT 7 [facility] COMPLETE INC INC AUTO&[place] [address] LAB MAHESH LAB MAHESH VITAMIN A 7 MAI MAI HOLDINGS HOLDINGS APPL 06270 [place] [facility] MODALITY 7 [facility] 1/> AREAS INC INC ELEC STIMJ UNATTENDE D APPL 58548 [place] [facility] MODALITY 7 [facility] 1/> AREAS INC INC TRACTION MECHANICA L APPLICATI 63300 [place] [facility] ON 7 [facility] MODALITY INC INC 1/> AREAS HOT/COLD PACKS THERAPEUT 71909 [facility] IC PX 1/> 7 [facility] AREAS INC INC EACH 15 MIN EXERCISES RADEX 10137 [facility] DUARTE SPINE 7 [place] LUMBOSACR ORTHOPAED AL 2/[address] [place] [address] [facility] CERVICAL 7 MEDICAL MEDICAL SPINE W/O IMAGING IMAGING CONTRAST ASS ASS MATERIAL ECG 55657 [place] TALLEYON ROUTINE 7 [facility] ECG INC INC W/LEAST 12 LDS TRCG ONLY W/O I&R ECG 93322 [place] MAT[place] ROUTINE 7 [facility] W/LEAST P 12 LDS I&[place] [address] [place] HEAD/BRAI 7 MEDICAL N W/O IMAGING CONTRAST ASS MATERIAL CYANOCOBA 23253 [place] [facility] LYUBOV 7 [facility] VITAMIN INC INC B-12 25 47918 [place] [facility] HYDROXY 7 [facility] INCLUDES INC [place] [address] [place] [facility] FOLIC 7 [facility] ACID INC INC SERUM COLLECTIO 62163 [place] [facility] N VENOUS 7 [facility] BLOOD INC INC VENIPUNCT URE UNCLASSIF J3490 [place] [facility] IED DRUGS 7 [facility] INC INC THERAPEUT 61214 [place] [facility] IC 7 [facility] PROPHYLAC INC INC TIC/DX INJECTION SUBQ/IM UNCLASSIF J3490 [place] [facility] IED DRUGS 7 [facility] INC INC URNLS DIP 47268 [place] [facility] 7 [facility] STICK/TAB INC INC LET REAGENT AUTO MICROSCOP Y DESTRUCTI 88260 LOUISA JASSO ON BENIGN 7 LESIONS UP TO 14 [place] [address] ORIENTAL ORTHODOX ORIENTAL ORTHODOX TRACT 7 [facility] W/WO DELAYED IMAGES W/KUB RADEX 16429 [place] [facility] ABDOMEN 1 7 [facility] INC INC ANTEROPOS TERIOR VIEW BLOOD 54919 [place] [facility] COUNT 7 [facility] COMPLETE INC INC AUTO&[place] [address] [place] [facility] INFUSION 7 [facility] THERAPY/P INC INC ROPHYLAXI S /DX 1ST TO 1 HR COMPREHEN 66360 [place] [facility] SIVE 7 [facility] METABOLIC INC INC PANEL TX PROC G0238 [place] [facility] IMPRV 7 [facility] RESP INC INC FUNCT NOT G0237 FCE-FCE 15MIN RAD EXP G9500 [place] INDICES/E 7 MEDICAL XP TM & IMAGING NUMB ASS FLUORO IMAGES DOC RADEX 43138 [place] ESOPHAGUS 7 MEDICAL IMAGING ASS LAPS RPR 15265 [facility] SANCHEZ PARAESPHG 7 [facility] MEDICAL INCL GROUP FUNDPLSTY W/O MESH ANES 35633 [facility] CHRIS INTRAPERI 7 [place] TONEAL ANESTHESI UPPER A ABDOMEN W/LAPS NOS INJECTION J1100 ORIENTAL ORTHODOX ORIENTAL ORTHODOX 7 [facility] DEXAMETHO [facility] SONE SODIUM PHOSPHATE 1 MG INJECTION J1170 ORIENTAL ORTHODOX ORIENTAL ORTH[facility]OX [address] [place] [address] HYDROMORP [facility] KURTIS UP TO 4 MG INJECTION J0330 ORIENTAL ORTHODOX ORIENTAL ORTHODOX 7 [facility] SUCCINYLC [facility] HOLINE CHLORIDE UP TO 20 MG INJECTION J2405 ORIENTAL ORTHODOX ORIENTAL ORTH[facility]OX [address] [place] [address] ONDANSETR [facility] ON HCL PER 1 MG INJECTION J1650 ORIENTAL ORTHODOX ORIENTAL ORTHODOX [address] [place] [address] ENOXAPARI [facility] N SODIUM 10 MG INJECTION J3010 ORIENTAL ORTHODOX ORIENTAL ORTHODOX FENTANYL 7 [facility] CITRATE [facility] 0.1 MG INJECTION J2704 ORIENTAL ORTHODOX ORIENTAL ORTHODOX PROPOFOL 7 [facility] 10 MG [facility] INJECTION J2710 ORIENTAL ORTHODOX ORIENTAL ORTHODOX [address] [place] [address] NEOSTIGMI [facility] NE METHYLSUL FATE UP TO 0.5 MG HEMOGLOBI 49551 ORIENTAL ORTHODOX ORIENTAL ORTHODOX N 7 [facility] GLYCOSYLA [facility] LANEY A1C GLUCOSE 78428 ORIENTAL ORTHODOX ORIENTAL ORTHODOX QUANTITAT 7 [facility] SABIHA BLOOD [facility] XCPT REAGENT STRIP BLOOD 45194 OR[facility] ORTHODOX ORIENTAL ORTHODOX COUNT 7 [facility] COMPLETE [facility] AUTOMATED COLLECTIO 24610 ORIENT[facility] ORTHODOX ORIENTAL ORTHODOX N VENOUS 7 [facility] BLOOD [facility] VENIPUNCT URE ECG 79786 ORIENTAL ORTHODOX ANNA ROUTINE 7 [facility] ECG MEDICAL W/LEAST GROUP 12 LDS I&R ONLY ECG 65286 ORIENTAL ORTHODOX ORIENTAL ORTHODOX ROUTINE 7 [facility] ECG [facility] W/LEAST 12 LDS TRCG ONLY W/O I&R ECG 00010 [place] [facility] ROUTINE 6 [facility] ECG INC INC W/LEAST 12 LDS TRCG ONLY W/O I&R RADEX 34698 [facility] ABDOMEN 6 MEDICAL MEDICAL COMPL IMAGING IMAGING W/DCBTS&/ ASS ASS ERC VIEWS ECG 56539 [place] CHAVEZ JR ROUTINE 6 [facility] W/LEAST P 12 LDS I&R ONLY BLOOD 35129 [place] [facility] COUNT 6 [facility] COMPLETE INC INC AUTO&[place] [address] [place] [facility] INFUSION 6 [facility] THERAPY/P INC INC ROPHYLAXI S /DX 1ST TO 1 HR THERAPEUT 43067 [place] [facility] IC 6 [facility] INJECTION INC INC IV PUSH EACH NEW DRUG COMPREHEN 13714 [place] SIVE 6 [facility] [place] [address] [facility] [facility] AMYLASE 6 [facility] INC INC RADIOLOGI 72361 [facility] [facility] C EXAM 6 [facility] CHEST 2 INC INC VIEWS FRONTAL&[place] [address] [place] [facility] LIPASE 6 [facility] INC INC BLOOD 96104 [place] [facility] OCCULT 6 [facility] PEROXIDAS INTERNAL E ACTV MED QUAL FECES 1 DETER GLUC BLD 08375 [place] [facility] GLUC MNTR 6 [facility] DEV INC INC CLEARED FDA SPEC HOME USE THERAPEUT 45137 [place] [facility] IC 6 [facility] PROPHYLAC INC INC TIC/DX INJECTION SUBQ/[place] [address] SEJAL ABBOTTUTCHER HEAD/BRAI 6 MEDICAL N W/O IMAGING CONTRAST ASS MATERIAL URINE 73641 [place] [facility] 6 [facility] TEST INC INC VISUAL COLOR CMPRSN METHS RADIOLOGI 86070 SEJAL CERRATO ALL C 6 MEDICAL EXAMINATI IMAGING ON PELVIS ASS 1/2 VIEWS RADEX 63300 [place] [facility] SPINE 6 [facility] LUMBOSACR INC INC AL MINIMUM 4 VIEWS RADEX 12743 SEJAL CERRATO ALL SACRUM & 6 MEDICAL COCCYX IMAGING MINIMUM 2 [place] [address] [place] [facility] STREPTOCO 6 [facility] CCUS INC INC GROUP A IAADI 98385 [place] [facility] INFLUENZA 6 [facility] B VIRUS INC INC IAADI 99958 [place] [facility] INFFLUENZ 6 [facility] A A VIRUS INC INC BLOOD 49322 [place] COUNT 6 [facility] COMPLETE INC INC AUTO&AUTO DIFRNTL WBC CUL BACT 47472 [place] [facility] XCPT 6 [facility] URINE INC INC BLOOD/STO OL AEROBIC ISOL RADIOLOGI 74616 [place] [facility] C EXAM 6 [facility] CHEST 2 INC INC VIEWS FRONTAL&L ATERAL RADEX 46533 SEJAL ABBOTTUTCHER SINUSES 6 MEDICAL ADRIANNA PARANASAL IMAGING COMPL ASS MINIMUM 3 [place] [address] [facility], PICKLESIM SURG 6 [facility] PATHOLOGY GROSS&BRYCE ROSCOPIC EXAM DECALCIFI 25869 [facility], PICKLESIM CATION 6 [facility] WANDA PROCEDURE ANESTHESI 20728 COMMUNITY FEEBACK A NOSE & 6 ANESTH ACCESSORY OF THE SINUSES BLUE NOS ECG 63537 [place] MATUTE ROUTINE 6 [facility] W/LEAST P 12 LDS I&R ONLY ECG 92843 [place] ROUTINE 6 [facility] ECG INC INC W/LEAST 12 LDS TRCG ONLY W/O I&R COLLECTIO 25094 [place] [facility] N VENOUS 6 [facility] BLOOD INC INC VENIPUNCT URE BLOOD 20158 [place] [facility] COUNT 6 [facility] COMPLETE INC INC AUTO&AUTO DIFRNTL WBC ANTIBODY 23218 [place] [facility] HERPES 6 [facility] SMPLX INC INC TYPE 1 ANTIBODY 89846 [place] [facility] VIRUS NOT 6 [facility] INC INC ELSEWHERE SPECIFIFE D COMPREHEN 31965 [place] SIVE 6 [facility] [place] [address] [place] HARLEEN MAXILLOFA 6 MEDICAL ADRIANNA CIAL W/O IMAGING CONTRAST ASS MATERIAL URINE 67889 [place] [facility] 6 [facility] TEST INC [place] [address] [place] BEINE[place] HEAD/BRAI 6 MEDICAL N W/[place] [address] [place] ANISHINE[place] CERVICAL 6 MEDICAL SPINE W/O IMAGING CONTRAST ASS MATERIAL TYMPANOME 82122 MAEGAN ISSA TRY 6 JARON JARON DISTORT 74412 MAEGAN ISSA PRODUCT 6 JARON JARON EVOKED OTOACOUST IC EMISNS LIMITD COMPRE 72230 MAEGAN ISSA AUDIOMETR 6 JARON JARON Y THRESHOLD EVAL SP RECOGNIJ PULMONARY 28628 [place] NOGUEIR[place] STRESS 6 MEDICAL TESTING SERV SIMPLE FOUNDATIO N GAS 83032 [place] DILUT/WAS 6 MEDICAL MEDICAL HOUT LUNG SERV SERV VOL W/WO FOUNDATIO FOUNDATIO DISTRIB N N VENT&[place] [address] [place] NO[place] DIFFUSING 6 MEDICAL CAPACITY SERV FOUNDATIO N NONINVASI 94445 [place] [facility] VE 6 [facility] EAR/PULSE INC INC OXIMETRY MULTIPLE DETER BRNCDILAT 43575 [place] [facility] RSPSE 6 [facility] SPMTRY INC INC PRE&POST- BRNCDILAT ADMN ELIG CLIN G8427 STAMPING RODRIGUEZ TRI ATTSTS 6 GROUND DOC M REC FAMILY OBTD CLINI UPD/REV PT MEDS ECG 57899 [place] ROUTINE 6 [facility] W/LEAST P 12 LDS [place] [address] [place] [facility] TROPONIN 6 [facility] QUANTITAT INC INC SABIHA BLOOD 37805 [place] [facility] COUNT 6 [facility] COMPLETE INC INC AUTO&AUTO DIFRNTL WBC ECG 46199 [place] ROUTINE 6 [facility] ECG INC INC W/LEAST 12 LDS TRCG ONLY W/O I&R CREATINE 75819 [place] [facility] KINASE 6 [facility] TOTAL INC INC CREATINE 70566 [place] [facility] KINASE MB 6 [facility] FRACTION INC INC ONLY COMPREHEN 81053 [place] SIVE 6 [facility] METABOLIC INC INC PANEL BLOOD 76662 [place] [facility] OCCULT 6 [facility] PEROXIDAS INC INC E ACTV QUAL FECES 1-3 SPEC SKIN TEST 88224 [facility] DEPT HLTH DEPT SIS JAZZ JAZZ INTRADERM AL BLOOD 98516 [place] [facility] COUNT 6 [facility] COMPLETE INC INC AUTO&AUTO DIFRNTL WBC COLLECTIO 88188 [place] [facility] N VENOUS 6 [facility] BLOOD INC INC VENIPUNCT URE IM ADM 73468 [facility] PRQ ID 6 [facility] DISTRICT SUBQ/IM HLTH DEPT HLTH DEPT NJXS EA JAZZ JAZZ VACCINE SYPHILIS 73696 [facility] TEST 6 [facility] NON-TREPO HLTH DEPT HLTH DEPT NEMAL JAZZ JAZZ ANTIBODY QUAL IM ADM 60592 [facility] PRQ ID 6 [facility] DISTRICT SUBQ/IM HLTH DEPT HLTH DEPT NJXS 1 JAZZ JAZZ VACCINE TDAP 61411 [facility] VACCINE 7 6 [facility] YRS/> IM HLTH DEPT HLTH DEPT JAZZ JAZZ ECG 64938 [place] ROUTINE 6 [facility] ECG INC INC W/LEAST 12 LDS TRCG ONLY W/O I&R XTRNL ECG 83446 [place] [facility] & 48 HR 6 [facility] RECORDING INC INC EXTERNAL 94625 [place] [facility] ECG 6 [facility] SCANNING INC INC ANALYSIS REPORT BLOOD 33124 [place] [facility] COUNT 6 [facility] COMPLETE INC INC AUTO&AUTO DIFRNTL WBC COMPREHEN 37778 [place] [facility] SIVE 6 [facility] METABOLIC INC INC PANEL CREATINE 45351 [place] [facility] KINASE MB 6 [facility] FRACTION INC INC ONLY CREATINE 84832 [place] [facility] KINASE 6 [facility] [place] [address] [place] [facility] TROPONIN 6 [facility] QUANTITAT INC INC SABIHA XTRNL ECG 92718 [place] BORDENSON 6 [facility] S RHYTHM P W/I&R UP [place] [address] [place] [address] [place] [facility] TROPONIN 6 [facility] QUANTITAT INC INC SABIHA CREATINE 84149 [place] [facility] KINASE 6 [facility] TOTAL INC INC CREATINE 51860 [place] KINASE MB 6 [facility] FRACTION INC INC ONLY AMBULANCE A0429 [facility] SERVICE 6 AMBULANCE PATY BLS SERVICE EMERGENCY TRANSPORT GROUND A0425 [facility] MILEAGE 6 AMBULANCE PATY PER SERVICE STATUTE MILE NITRIC 93573 [facility] ROS[facility] MAR OXIDE 6 [facility] [place] GAS CO DETERMINA TION BLOOD 19945 [place] [facility] COUNT 6 [facility] COMPLETE INC INC AUTO&AUTO DIFRNTL WBC PROF SVCS 31116 [facility] MAR ALLG 6 [facility] IMMNTX X OF [place] W/PRV CO ALLGIC XTRCS NJXS RHEUMATOI 62965 [place] [facility] D FACTOR 6 [facility] QUANTITAT INC INC SABIHA BLOOD 92717 [place] [facility] COUNT 6 [facility] RETICULOC INC INC YTE AUTOMATED ANTINUCLE 27894 [place] [facility] AR 6 [facility] ANTIBODIE INC INC S SANNA ECG 77606 [place] ROUTINE 6 [facility] W/LEAST P 12 LDS I&R ONLY SEDIMENTA 34833 [place] [facility] TIKIMBERLY RATE 6 [facility] RBC INC INC NON-AUTOM ATED SPMTRY 83132 [facility]ER[facility] ROS[facility] MAR W/VC 6 [facility] [place] Y ABHI CO W/WO MXML VOL VNTJ ECG 04386 [place] ROUTINE 6 [facility] ECG INC INC W/LEAST 12 LDS TRCG ONLY W/O I&R BONE 91193 [place] [facility] &/JOINT 6 [facility] IMAGING INC INC WHOLE BODY SEDIMENTA 10827 [place] [facility] TIKIMBERLY RATE 6 [facility] RBC INC INC NON-AUTOM ATED COLLECTIO 40777 [place] [facility] N VENOUS 6 [facility] BLOOD INC INC VENIPUNCT URE BLOOD 43349 [place] [facility] COUNT 6 [facility] RETICULOC INC INC YTE AUTOMATED BLOOD 36178 [place] COUNT 6 [facility] COMPLETE INC INC AUTO&AUTO DIFRNTL WBC BASIC 10334 [place] [facility] METABOLIC 6 [facility] PANEL INC INC CALCIUM TOTAL TECHNETIU A9503 [place] Montenegro TC-99M 6 [facility] MEDRONATE INC INC DX UP TO 30 MCI RADIOLOGI 00005 [place] [facility] C EXAM 6 [facility] CHEST 2 INC INC VIEWS FRONTAL&L ATERAL BLOOD 04797 [place] COUNT 6 [facility] COMPLETE INC INC AUTO&AUTO DIFRNTL WBC ANES 43414 [place] BRITTNY LOWER 6 ANESTHESI INTESTINE A GROUP [place] [address] [place] [facility] THYROID 6 [facility] STIMULAT[place] [address] [place] [facility] THYROXINE 6 [facility] TOTAL INC INC COLLECTIO 79819 [place] [facility] N VENOUS 6 [facility] BLOOD INC INC VENIPUNCT URE GONADOTRO 22663 [place] PIN 6 [facility] FOLLICLE INC INC STIMULATI NG HORMONE GONADOTRO 18396 [place] [facility] PIN 6 [facility] LUTEINIZI INC INC NG HORMONE THYROID 69643 [place] [facility] HORM 6 [facility] UPTK/THYR INC [place] [address] [place] [facility] TROPONIN 6 [facility] QUANTITAT INC INC SABIHA RADIOLOGI 13528 [facility] C 6 MEDICAL MEDICAL EXAMINATI IMAGING IMAGING ON CHEST ASS ASS SINGLE VIEW FRONTAL CREATINE 15260 [place] [facility] KINASE 6 [facility] TOTAL INC INC CREATINE 49601 [place] KINASE MB 6 [facility] FRACTION INC INC ONLY GROUND A0425 [facility] MILEAGE 6 AMBULANCE KILO PER SERVICE STATUTE MILE AMB A0427 [facility] SERVICE 6 AMBULANCE KILO ALS SERVICE EMERGENCY TRANSPORT LEVEL 1 COMPREHEN 11387 [place] SIVE 6 [facility] METABOLIC INC INC PANEL BLOOD 16015 [place] COUNT 6 [facility] COMPLETE INC INC AUTO&AUTO DIFRNTL WBC COLLECTIO 95654 [place] [facility] N VENOUS 6 [facility] BLOOD INC INC VENIPUNCT URE ECG 18284 [place] [facility]UTE ROUTINE 6 [facility] W/LEAST P 12 LDS I&R ONLY ECG 24799 [place] ROUTINE 6 [facility] ECG INC INC W/LEAST 12 LDS TRCG ONLY W/O I&R PREPJ& 82363 [facility]ER[facility] ROS[facility] MAR ALLERGEN 6 PART[facility]ERS IMMUNOTHE OF TRE PEREZ CO 1/[place] [address] [place] [facility] INFUSION 6 [facility] THERAPY INC [place] [address] [place] [facility] INFUSION 6 [facility] THERAPY/P INC INC ROPHYLAXI S /DX 1ST TO 1 HR COMPREHEN 40325 [place] SIVE 6 [facility] METABOLIC INC INC PANEL CREATINE 44977 [place] [facility] KINASE MB 6 [facility] FRACTION INC INC ONLY CREATINE 43835 [place] [facility] KINASE 6 [facility] TOTAL INC INC RADIOLOGI 39499 [place] [facility] C 6 [facility] EXAMINATI INC [place] ON [place]NEE [address] [place] [address] [place] [facility] HEAD/BRAI 6 [facility] N W/[place] [address] [place] [facility] TROPONIN 6 [facility] QUANTITAT INC INC SABIHA ECG 33972 [place] ROUTINE 6 [facility] ECG INC INC W/LEAST 12 LDS TRCG ONLY W/O I&R ECG 77900 [place] GIOVANI ROUTINE 6 [facility] W/LEAST P 12 LDS I&[place] [address] [place] [facility] CERVICAL 6 [facility] SPINE W/O INC INC CONTRAST MATERIAL BLOOD 90396 [place] [facility] COUNT 6 [facility] COMPLETE INC INC AUTO&AUTO DIFRNTL WBC SPMTRY 69961 [facility] MAR W/VC 6 [facility]ERS [facility] [place] Y ABHI CO W/WO MXML VOL VNTJ PERCUTANE 65360 ALLER[facility] ROS[facility] MAR OUS TESTS 6 [facility] [place] W/ALLERGE CO LEO EXTRACTS INTRACUTA 85122 ALLER[facility] ROSENT[facility] MAR NEOUS 6 PARTNERS TESTS OF [place] W/ALLERGE CO LEO EXTRACTS NITRIC 62417 ALLER[facility] ROS[facility] MAR OXIDE 6 [facility] [place] GAS CO DETERMINA TION SPACR A4627 [facility] KRASNOPOL BAG/RESRV 6 EQUIPMENT ANTONIO [facility] OR W/WO INC MASK [place] [address] [facility] HUMPHREY TRANSVAGI 6 PHYSICIAN MEAGAN NAL S GROUP ECG 56764 [place] [facility] ROUTINE 6 [facility] ECG INC INC W/LEAST 12 LDS TRCG ONLY W/O I&R ECG 82389 [place] CHAVEZ JR ROUTINE 6 [facility] W/LEAST P 12 LDS I&R ONLY IADNA 97790 [place] [facility] NEISSERIA 6 [facility] INC INC GONORRHOE AE AMPLIFIED PROBE TQ IADNA 76462 [place] [facility] CHLAMYDIA 6 [facility] INC INC TRACHOMAT [place] [address] [facility] ANDREWS TRACT 6 RADIOLOGY RHO UPPER W/WO DELAYED IMAGES W/KUB ECG 99967 [place] ROUTINE 6 [facility] ECG INC INC W/LEAST 12 LDS TRCG ONLY W/O I&R FIBRIN 38915 [place] [facility] DGRADJ 6 [facility] PRODUCTS INC INC D-DIMER QUAL/SEMI GILBERT ECG 68854 [place] BORDENSHELLY ROUTINE 6 [facility] W/LEAST P 12 LDS I&R ONLY BLOOD 42493 [place] COUNT 6 [facility] COMPLETE INC INC AUTO&AUTO DIFRNTL WBC RADIOLOGI 43151 [place] C EXAM 6 [facility] CHEST 2 INC INC VIEWS FRONTAL&L ATERAL COMPREHEN 28659 [place] SIVE 6 [facility] [place] [place] [address] [place] TROPONIN 6 [facility] QUANTITAT INC INC SABIHA RADIOLOGI 95259 [place] ALL C 6 MEDICAL EXAMINATI IMAGING ON CHEST ASS SINGLE VIEW FRONTAL ELECTROEN 16391 CIN[place] DONALD CEPHALOGR 6 N AM W/[place] NEUROLOGY AWAKE&[place] [address] [place] INFUSION 6 [facility] THERAPY/P INC INC ROPHYLAXI S /DX 1ST TO 1 HR COMPREHEN 04218 [place] SIVE 6 [facility] [place] [address] [place] TROPONIN 6 [facility] [place] [address] [place] [facility] LIPASE 6 [facility] INC INC CREATINE 08569 [place] KINASE MB 6 [facility] [place] [address] [place] AMYLASE 6 [facility] INC INC CREATINE 42479 [place] KINASE 6 [facility] TOTAL INC INC BLOOD 68158 [place] COUNT 6 [facility] COMPLETE INC INC AUTO&AUTO DIFRNTL WBC CULTURE 86279 [place] BACTERIAL 6 [facility] INC INC QUANTTATI VE COLONY COUNT URINE ECG 16419 [place] MATUTE ROUTINE 6 [facility] W/LEAST P 12 LDS I&R ONLY ECG 63083 [place] ROUTINE 6 [facility] ECG INC INC W/LEAST 12 LDS TRCG ONLY W/O I&[place] [address] [facility] ABDOMEN & 6 [facility] PELVIS IMAGING IMAGING W/CONTRAS ASS ASS T MATERIAL DRUG TST [id number] [place] PRESUMP;C 6 [facility] PBL BEING INC INC READ DC OPT OBV ONLY ELECTROEN 32666 [facility] CEPHALOGR 6 N N AM W/REC COMMUNTIY COMMUNTIY [facility] WSY BLOOD 39546 [place] COUNT 6 [facility] COMPLETE INC INC AUTO&AUTO DIFRNTL WBC ECG 84089 [place] CHAVEZ JR ROUTINE 6 [facility] W/LEAST P 12 LDS I&R ONLY ECG 65781 [place] ROUTINE 6 [facility] ECG INC INC W/LEAST 12 LDS TRCG ONLY W/O I&R RADEX 09683 [place] ALL SPINE 6 [facility]AC[facility] IMAGING 2 VIEWS ASS CREATINE 34816 [place] KINASE 6 [facility] TOTAL INC INC CREATINE 94555 [place] KINASE MB 6 [facility] [place] [address] [place] TROPONIN 6 [facility] QUANTITAT INC INC SABIHA RADIOLOGI 19139 [place] ALL C 6 MEDICAL EXAMINATI IMAGING ON CHEST ASS SINGLE VIEW FRONTAL RADEX 76095 [place] SPINE 6 [facility] THORACIC INC INC 3 VIEWS RADIOLOGI 79323 [place] C EXAM 6 [facility] CHEST 2 INC INC VIEWS FRONTAL&L ATERAL COMPREHEN 44464 [place] SIVE 6 [facility] METABOLIC INC INC PANEL URINE 38683 [place] [facility] TEST INC INC VISUAL COLOR CMPRSN METHS COMPREHEN 57528 [place] SIVE 6 [facility] [address] [place] FERRITIN 6 [place] [address] [place] MAGNESIUM 6 [facility] INC INC 25 87764 [place] HYDROXY 6 [facility] INCLUDES INC INC FRACTIONS IF PERFORMED CYANOCOBA 26249 [place] LYUBOV 6 [facility] VITAMIN INC INC B-12 [place] [address] [place] THYROID 6 [facility] STIMULATI INC INC NG HORMONE TSH COMPUTER- 46345 [place] AIDED 6 [facility] DETECTION INC INC SCREENING MAMMOGRAP HY COLLECTIO 01463 [place] N VENOUS 6 [facility] BLOOD INC INC VENIPUNCT URE SCREENING G0202 [place] [facility] [facility] MAMMOGRAP INC INC HY WILBERT INCL CAD WHEN PERFORMD BLOOD 91108 [place] COUNT 6 [facility] COMPLETE INC INC AUTO&[place] [address] [facility] INC INC BLOOD 28787 [facility] COUNT [facility] COMPLETE INC INC AUTO&AUTO DIFRNTL WBC RADEX ABD 46164 [facility] COMPL 6 [facility] AQT ABD INC INC W/S/E/D VIEWS 1 VIEW CH ECG 56811 [facility] ROUTINE 6 [facility] ECG INC INC W/LEAST 12 LDS TRCG ONLY W/O I&R ECG 25971 [facility] CHAVEZ JR ROUTINE 6 [facility] W/LEAST P 12 LDS I&[place] [address] [facility] TROPONIN 6 [facility] QUANTITAT INC INC SABIHA COMPREHEN 07382 [facility] SIVE 6 [facility] METABOLIC INC INC PANEL URNLS DIP 64075 [facility] STICK/TAB INC [place] [address] [facility] [facility] INFUSION 6 [facility] THERAPY/P INC INC ROPHYLAXI S /DX 1ST TO 1 [place] [address] [facility] INFUSION 6 [facility] THERAPY/P INC INC ROPHYLAXI S /DX 1ST TO 1 HR URNLS DIP 57414 [facility] STICK/TAB INC INC LET REAGENT AUTO MICROSCOP Y URINE 16534 [facility] TEST INC INC VISUAL COLOR CMPRSN METHS RADIOLOGI 98845 [place] ALL C EXAM 6 MEDICAL CHEST 2 IMAGING VIEWS ASS FRONTAL&L ATERAL COMPREHEN 70136 [facility] S[facility] 6 [facility] [address] [facility] TROPONIN 6 [facility] QUANTITAT INC INC SABIHA CREATINE 62552 [facility] KINASE 6 [facility] TOTAL INC INC CREATINE 02034 [facility] KINASE MB 6 [facility] FRACTION INC INC ONLY ECG 69514 [facility] [facility] ROUTINE 6 [facility] W/LEAST P 12 LDS I&R ONLY ECG 72324 [place] [facility] ROUTINE 6 [facility] ECG INC INC W/LEAST 12 LDS TRCG ONLY W/O I&R CULTURE 86217 [facility] BACTERIAL 6 [facility] INC INC QUANTTATI VE COLONY COUNT URINE BLOOD 44065 [facility] COUNT 6 [facility] COMPLETE INC INC AUTO&AUTO DIFRNTL WBC BLOOD 72907 [facility] COUNT 6 [facility] COMPLETE INC INC AUTO&AUTO DIFRNTL WBC RADEX ABD 89922 [facility] COMPL 6 [facility] AQT ABD INC INC W/S/E/D VIEWS 1 [place] [address] [facility] LIPASE 6 [facility] INC INC AMB A0427 [facility] 6 AMBULANCE AMBULANCE ALS SERVICE SERVICE EMERGENCY TRANSPORT LEVEL 1 COMPREHEN 01495 [facility] SIVE 6 [facility] METABOLIC INC INC PANEL GROUND A0425 [facility] AMBULANCE PER SERVICE SERVICE STATUTE MILE COMPREHEN 96516 [facility] SIVE 6 N N METABOLIC COMMUNTIY COMMUNTIY PANEL HOSPITA HOSPITA MRI BRAIN 70281 [facility] [place] KOST[facility] BRAIN 6 RADIOLOGY LANA STEM W/O CONTRAST MATERIAL THER 07851 [facility] PROPH/DX 6 N N NJX IV COMMUNTIY COMMUNTIY PUSH HOSPITA HOSPITA SINGLE/1S T SBST/DRUG COLLECTIO 19870 [facility] N VENOUS 6 N N BLOOD COMMUNTIY COMMUNTIY VENIPUNCT HOSPITA HOSPITA URE BLOOD 53440 [facility] COUNT 6 N N COMPLETE COMMUNTIY COMMUNTIY AUTO&[place] [address] [facility] INFUSION 6 N N HYDRATION COMMUNTIY COMMUNTIY EACH HOSPITA HOSPITA ADDITIONA L HOUR ECG 04158 [facility] ROUTINE 6 [facility] W/LEAST P 12 LDS I&[place] [address] [place] ALL ABDOMEN & 6 MEDICAL PELVIS IMAGING W/O ASS CONTRAST MATERIAL RADIOLOGI 33876 [place] ALL C 6 MEDICAL EXAMINATI IMAGING [place] [address] [place] ALL HEAD/BRAI 6 MEDICAL N W/O IMAGING CONTRAST ASS MATERIAL AMB A0427 [facility] SERVICE 6 AMBULANCE AMBULANCE ALS SERVICE SERVICE EMERGENCY TRANSPORT LEVEL 1 GROUND A0425 [facility] AMBULANCE PER SERVICE SERVICE STATUTE MILE MANUAL 37167 [facility] THERAPY 6 TQS 1/> REGIONS EACH 15 MINUTES CHIROPRAC 48949 [facility] TIC 6 MANIPULAT SABIHA TX SPINAL 3-4 REGIONS THERAPEUT 21377 [facility] IC PX 1/> 6 AREAS EACH 15 MIN EXERCISES CHIROPRAC 39291 [facility] TIC 6 MANIPLTV TX EXTRASPIN AL 1/> REGION THERAPEUT 21399 [facility] IC PX 1/> 6 AREAS EACH 15 MIN EXERCISES MANUAL 08965 [facility] THERAPY 6 TQS 1/> REGIONS EACH 15 MINUTES MANUAL 96921 [facility] THERAPY 6 MATTI MATTI TQS 1/> REGIONS EACH 15 MINUTES CHIROPRAC 74493 [facility] TIC 6 MATTI MATTI MANIPULAT SABIHA TX SPINAL 3-4 REGIONS THERAPEUT 57720 [facility] IC PX 1/> 6 MATTI MATTI AREAS EACH 15 MIN EXERCISES CHIROPRAC 70733 [facility] TIC 6 MATTI MATTI MANIPLTV TX EXTRASPIN AL 1/> REGION BX SKIN 38285 SCALF LEI SCALF LEI SUBCUTANE 6 OUS&/MUCO US MEMBRANE 1 LESION COMPREHEN 44314 [facility] SIVE 6 DIAGNOSTI DIAGNOSTI METABOLIC CS CS PANEL IMHISTOCH 21865 SCALF LEI SCALF LEI EM/CYTCHM 6 1ST [place] [address] SCALF LEI SCALF LEI SURG 6 PATHOLOGY GROSS&BRYCE ROSCOPIC EXAM COMPREHEN 31796 [facility] SIVE 6 [facility] [address] [facility] AMYLASE 6 [facility] INC INC THERAPEUT 23062 [facility] IC 6 [facility] INJECTION INC [place] [address] [facility] INFUSION 6 [facility] THERAPY/P INC INC ROPHYLAXI S /DX 1ST TO 1 HR GLUC BLD 86513 [facility] GLUC MNTR 6 [facility] DEV INC INC CLEARED FDA SPEC HOME USE URNLS DIP 70920 [facility] STICK/TAB INC INC [place] [address] [facility] LIPASE 6 [place] [address] [facility] TROPONIN 6 [facility] QUANTITAT INC INC SABIHA UNCLASSIF J3490 [facility] IED DRUGS 6 [facility] INC INC CREATINE 86153 [facility] KINASE MB 6 [facility] FRACTION INC INC ONLY CREATINE 79556 [facility] KINASE 6 [facility] TOTAL INC INC ECG 99282 [facility] ROUTINE 6 [facility] ECG INC INC W/LEAST 12 LDS TRCG ONLY W/O I&R BLOOD 97774 [facility] COUNT 6 [facility] COMPLETE INC INC AUTO&AUTO DIFRNTL WBC ECG 71024 [facility] GIOVANI ROUTINE 6 [facility] W/LEAST P 12 LDS I&R ONLY CULTURE 18438 [facility] BACTERIAL 6 [facility] INC INC QUANTTATI VE COLONY COUNT URINE INJECTION J2405 [facility] 6 [facility] ONDANSETR INC INC ON HCL PER 1 MG BLOOD 78822 [facility] COUNT 6 [facility] COMPLETE [facility] AUTOMATED COLLECTIO 70097 [facility] N VENOUS 6 [facility] BLOOD [facility] VENIPUNCT URE INJECTION J1644 [facility] HEPARIN 6 [facility] SODIUM [facility] PER 1000 UNITS ECG 06652 [facility] ANDRES ROUTINE 6 HEALTH IV HEN ECG MEDICAL W/LEAST GROUP 12 LDS I&R ONLY CATH PLMT 97137 [facility] L HRT & 6 [facility] ARTS [facility] W/NJX & ANGIO IMG S&I GONADOTRO 91071 [facility] PIN 6 [facility] CHORIONIC [facility] QUANTITAT SABIHA INJECTION J3010 [facility] ORIENTAL [facility]OX FENTANYL 6 [facility] CITRATE [facility] 0.1 MG LIPID 66559 [facility] PANEL 6 [facility] BASIC 88941 [facility] METABOLIC 6 [facility] HEALTH PANEL [facility] CALCIUM TOTAL HEMOGLOBI 70377 [facility] ORIENTAL ORTHODOX N 6 [facility] HEALTH GLYCOSYLA [facility] LANEY A1C LOCM Q9967 [facility] ORIENTAL ORTH[facility]OX [phone] [facility] HEALTH MG/ML [facility] IODINE CONCENTRA TION PER ML CV STRS 56765 [facility] TST [address] [facility]&/OR [facility] RX CONT P P ECG I&R ONLY UNCLASSIF J3490 [facility] IED DRUGS 6 [facility] INC INC ECHO 74911 [facility] TTHRC R-T 6 [facility] 2D INC INC W/WOM-MOD E COMPL SPEC&COLR D MYOCARDIA 90582 [facility] Ortega SPECT 6 [facility] MULTIPLE INC INC STUDIES TECHNETIU A9500 [facility] Monten[place] TC-99M 6 [facility] SESTAMIBI INC INC DX PER STUDY DOSE CV STRS 26135 [facility] TST [address] [facility]&/OR [facility] RX CONT P P ECG W/O I&R CV STRS 45530 [facility] TST 6 [facility] XERS&/OR INC INC RX CONT ECG TRCG ONLY ECG 75473 [facility] ROUTINE 6 [facility] ECG INC INC W/LEAST 12 LDS TRCG ONLY W/O I&R ECG 76436 [facility] CHAVEZ JR ROUTINE 6 [facility] W/LEAST P 12 LDS I&R ONLY BLOOD 89777 [facility] COUNT 6 [facility] COMPLETE INC INC AUTO&AUTO DIFRNTL WBC CREATINE 44730 [facility] KINASE 6 [facility] TOTAL INC INC CREATINE 56225 [facility] [facility] KINASE MB 6 [facility] [place] [address] [facility] TROPONIN 6 [facility] QUANTITAT INC INC SABIHA RADIOLOGI 57591 [facility] C 6 [facility] EXAMINATI INC INC ON CHEST SINGLE VIEW FRONTAL COMPREHEN 73165 [facility] SIVE 6 [facility] METABOLIC INC INC PANEL OPHTH 56855 [facility] 6 XM&EVAL COMPRHNSV ESTAB PT 1/> [place] [address] LAB [facility] LAB [facility] VITAMIN A 6 [facility] COMPREHEN 16872 [facility] SIVE 6 [facility] METABOLIC [place] [address] [facility] PARATHORM 6 MA[place] [address] LAB [facility] MAGNESIUM 6 MA[facility] ORGANIC 25294 [facility] ACID 1 6 MAI [facility] QUANTITAT [facility] HOLDINGS SABIHA PREALBUMI 93717 [facility] N 6 MAI MAI [facility] HOLDINGS 25 67235 [facility] HYDROXY 6 MAI MAI INCLUDES [facility]INGS [place] [address] [facility] FOLIC 6 MAI MA[facility] [place] [address] LAB [facility] LAB [facility] FERRITIN 6 MA[facility]INGS HOLDINGS BLOOD 92009 [facility] COUNT 6 MAI MAI COMPLETE [facility] HOLDINGS AUTO&[place] [address] [facility] IRON 6 [place] [address] [facility] ZINC 6 [place] [address] LAB [facility] LAB MA[facility] PHOSPHORU 6 MAI MAI [place] [address] LAB MA[facility] LAB MA[facility] THIAMINE- 6 MAI MAI VITAMIN [facility] [place] B-1 [place] [address] LAB MA[facility]ESH LAB MA[facility] TOCOPHERO 6 MAI MAI L ALPHA [place] [address] [facility] THYROID 6 [facility] STIMULATI INC INC NG HORMONE TSH BLOOD 72051 [facility] COUNT 6 [facility] COMPLETE INC INC AUTO&AUTO DIFRNTL WBC COLLECTIO 31347 [facility] N VENOUS 6 [facility] [place] [address] [facility] VAUGHN FERRITIN 6 [facility] TERA INC 25 98149 [facility] HYDROXY 6 [facility] INCLUDES INC [place] [address] [facility] IRON 6 [facility] INC INC COMPREHEN 47489 [facility] SIVE 6 [facility] METABOLIC INC INC PANEL IRON 38049 [facility] BINDING 6 [facility] CAPACITY INC INC IADNA 67740 [facility]AM[facility] TRACHOMAT IS AMPLIFIED PROBE TQ IADNA 81560 [facility] HUMAN [facility] PAPILLOMA VIRUS HIGH-RISK TYPES CYTP 37099 [facility] CERVICAL/ 6 [facility] VAGINAL REQ INTERP PHYSICIAN CYTP C/V 04212 [facility] AUTO THIN [facility] LYR PREPJ SCR MNL RESCR PHYS IADNA 52002 [facility], [facility] NEISSERIA [facility] GONORR[place] [address] [facility] THYROID 6 [facility] STIMULATI INC INC NG HORMONE TSH COLLECTIO 52706 [facility] N VENOUS 6 [facility] BLOOD INC INC VENIPUNCT URE BASIC 93681 [facility] METABOLIC 6 [facility] PANEL INC INC CALCIUM TOTAL PREALBUMI 65434 [facility] [place] N 6 [facility] INC INC COMPREHEN 74545 [facility] SIVE 6 [facility] METABOLIC INC INC PANEL ORGANIC 57817 [facility] ACID 1 6 [facility] [place] [address] [facility] IRON 6 [place] [address] [facility] FERRITIN 6 [facility] INC INC COLLECTIO 27973 [facility] N VENOUS 6 [facility] BLOOD INC INC VENIPUNCT URE BLOOD 93302 [facility] COUNT 6 [facility] COMPLETE INC INC AUTO&[place] [address] [facility] THIAMINE- 6 [facility] VITAMIN INC INC B-1 [place] [address] LAB [facility] LAB MA[facility]ESH THIAMINE- 5 [facility] VITAMIN [facility] B-[address] [place] [address] LAB MA[facility] LAB MAH[facility] FERRITIN 5 MAI MAI [facility]INGS HOLDINGS PREALBUMI 95015 [facility] LAB MAHESH N 5 [place] [address] LAB [facility] LAB [facility] FOLIC 5 MAI MAI ACID HOLDINGS HOLDINGS SERUM ORGANIC 17093 LAB MAHESH LAB MAHESH ACID 1 5 [facility] QUANTITAT [place] [address] LAB MA[facility] LAB MA[facility] IRON 5 [facility] HOLDINGS HOLDINGS GENERAL 83251 LAB [facility] LAB MAHESH HEALTH 5 [facility] PANEL HOLDINGS HOLDINGS DESTRUCTI 90927 ATKINS ATKINS ON BENIGN 5 TRA TRA LESIONS UP TO 14 BIOPSY 58450 ATKINS ATKINS SKIN 5 TRA TRA SUBQ&/MUC OUS MEMBRANE EA ADDL LESN BX SKIN 02483 ATKINS ATKINS SUBCUTANE 5 TRA TRA OUS&/MUCO US MEMBRANE 1 LESION DESTRUCTI 27578 ATKINS ATKINS ON 5 TRA TRA PREMALIGN [place] 1ST [place] [address] SCALF LEI SCALF LEI SURG 5 PATHOLOGY GROSS&BRYCE ROSCOPIC EXAM BLOOD 45552 [facility] LAB [facility]ESH COUNT 5 [facility] COMPLETE HOLDINGS HOLDINGS AUTO&[place] [address] LAB MA[facility] LAB MAHESH THIAMINE- 5 [facility] VITAMIN HOLDINGS [place] B-[address] [place] [address] LAB MAHESH LAB MAHESH FOLIC 5 [facility] ACID HOLDINGS HOLDINGS SERUM PREALBUMI 59814 LAB MA[facility]ESH LAB MAHESH N 5 [place] [address] LAB MAHESH LAB MAHESH IRON 5 MAI MAI HOLDINGS HOLDINGS ORGANIC 22520 LAB MAHESH LAB MAHESH ACID 1 5 [facility] QUANTITAT HOLDINGS HOLDINGS SABIHA COMPREHEN 69622 LAB MAHESH LAB MAHESH SIVE 5 [facility] METABOLIC HOLDINGS HOLDINGS PANEL COMPUTER- 99300 [facility] AIDED 5 [facility] DETECTION INC INC SCREENING MAMMOGRAP HY SCREENING G0202 [facility] 5 [facility] MAMMOGRAP INC INC HY WILBERT INCL CAD WHEN PERFORMD COLLECTIO 79901 [facility] [place] N VENOUS 5 [facility] BLOOD INC INC VENIPUNCT URE BLOOD 51672 [facility] COUNT 5 [facility] COMPLETE INC INC AUTO&[place] [address] [facility] THYROID 5 [facility] STIMULATI INC INC NG HORMONE TSH COMPREHEN 76950 [facility] SIVE 5 [facility] METABOLIC INC INC PANEL LIPID 12372 [facility] PANEL 5 [facility] INC INC HEMOGLOBI 29035 [facility] N 5 [facility] GLYCOS[place] [address] [facility] GLUTAMYLT 5 [facility] RASE INC INC GAMMA 25 39056 [facility] [facility] HYDROXY 5 [facility] INCLUDES INC INC FRACTIONS IF PERFORMED CYANOCOBA 37105 [facility] [facility] LYUBOV 5 [facility] VITAMIN INC INC B-12 OPHTH 82034 [facility] MEDICAL 5 ANG ANG XM&EVAL COMPRHNSV ESTAB PT 1/> [place] [address] [facility] [place] SCALF HUBER ABDOMEN & 5 RADIOLOGY PELVIS W/[place] [address] [place] ALL ABDOMEN & 5 MEDICAL PELVIS IMAGING W/CONTRAS ASS T MATERIAL BLOOD 90737 [facility] COUNT 5 [facility] COMPLETE INC INC AUTO&AUTO DIFRNTL WBC CULTURE 42483 [facility] BACTERIAL 5 [facility] INC INC [place]TT[place] [address] [facility] LIPASE 5 [facility] INC INC URNLS DIP 34223 [facility] 5 [facility] STICK/TAB INC INC LET REAGENT AUTO MICROSCOP Y URINE 64707 [facility] 5 [facility] TEST INC INC VISUAL COLOR CMPRSN METHS COMPREHEN 68607 [facility] SIVE 5 [facility] [place] [address] [facility] AMYLASE 5 [place] [address] [facility] AMYLASE 5 N N COMMUNTIY COMMUNTIY HOSPITA HOSPITA PREALBUMI 29243 [facility] N 5 N N COMMUNTIY COMMUNTIY HOSPITA HOSPITA COMPREHEN 56798 [facility] SIVE 5 N N METABOLIC COMMUNTIY COMMUNTIY PANEL HOSPITA HOSPITA ORGANIC 66238 [facility] ACID 1 5 N N QUANTITAT COMMUNTIY COMMUNTIY [place] [address] [facility] MAGNESIUM 5 N N COMMUNTI[place] [address] [facility] PARATHORM 5 N N ONE COMMUNTIY [place] [address] [facility] LIPASE 5 N N COMMUNTIY COMMUNTIY HOSPITA HOSPITA 25 23906 [facility] HYDROXY 5 N N INCLUDES COMMUNTIY COMMUNTIY FRACTIONS [place] [address] [facility] FOLIC 5 N N ACID COMMUNTIY COMMUNTIY SERUM HOSPITA HOSPITA COLLECTIO 65646 [facility] N VENOUS 5 N N BLOOD COMMUNTIY COMMUNTIY VENIPUNCT HOSPITA HOSPITA URE BLOOD 33510 [facility] COUNT 5 N N COMPLETE COMMUNTIY COMMUNTIY AUTO&AUTO [place]OSP[place] [address] [facility] ZINC 5 N N COMMUNTIY COMMUNTIY HOSPITA HOSPITA 815[address] [facility] [place] ANDREWS ABDOMINAL 5 RADIOLOGY RHO REAL TIME W/[place] [address] [facility] VITAMIN A 5 N N COMMUNTIY [place] [address] [facility] TOCOPHERO 5 N N L ALPHA COMMUNTIY COMMUNTIY [place] [address] [facility] THIAMINE- 5 N N VITAMIN COMMUNTIY COMMUNTIY B-[place] [address] [facility] PHOSPHORU 5 N N S COMMUNTIY COMMUNTIY INORGANIC HOSPITA HOSPITA PROTHROMB 94743 [facility] IN TIME 5 N [place] [address] [facility] RETROPERI 5 [facility] TONEAL INC INC REAL TIME W/[place] [address] SEJAL ENGLE RETROPERI 5 MEDICAL TONEAL IMAGING REAL TIME ASS W/IMAGE LIMITED HEPATITIS 09041 [facility] B CORE 5 N N ANTIBODY COMMUNTIY COMMUNTIY HBCAB HOSPITA HOSPITA TOTAL HEPATITIS 80336 [facility] B SURF 5 N N ANTIBODY COMMUNTIY COMMUNTI[place] [address] [facility] HEPATITIS 5 N N B COMMUNTIY COMMUNTIY SURFACE HOSPITA HOSPITA ANTIGEN BLOOD 34676 [facility] COUNT 5 N N COMPLETE COMMUNTIY COMMUNTIY AUTOMATED HOSPITA HOSPITA HEPATITIS 41462 [facility] C 5 N N ANTIBODY COMMUNTIY COMMUNTIY HOSPITA HOSPITA COLLECTIO 02981 [facility] N VENOUS 5 N N BLOOD COMMUNTIY COMMUNTIY VENIPUNCT HOSPITA HOSPITA URE ANTINUCLE 71252 [facility] AR 5 N N ANTIBODIE COMMUNTIY COMMUNTIY S SANNA HOSPITA HOSPITA IMMUNOASS 70680 [facility] AY 5 N N ANALYTE COMMUNTIY COMMUNTIY QUAL/SEMI HOSPITA [place] [address] [facility] FERRITIN 5 N N COMMUNTIY [place] [address] [facility] IRON 5 N N COMMUNTIY COMMUNTIY HOSPITA HOSPITA COMPREHEN 01480 [facility] SIVE 5 N N METABOLIC COMMUNTIY COMMUNTIY PANEL HOSPITA HOSPITA ALPHA-1-A 62296 [facility] NTITRYPSI 5 N N N TOTAL COMMUNTIY [place] [address] [facility] GAMMAGLOB 5 N N ULIN IGA COMMUNTIY COMMUNTIY IGD IGG HOSPITA HOSPITA IGM EACH IRON 27512 [facility] BINDING 5 N N CAPACITY [place] [address] [facility] ABDOMEN & 5 MEDICAL PELVIS IMAGING W/O ASS CONTRAST MATERIAL DUP-SCAN 63272 [facility] XTR VEINS 5 N N COMPLETE COMMUNTIY COMMUNTIY HOSPITA HOSPITA BILATERAL STUDY COLLECTIO 33156 [facility] N VENOUS 5 N N BLOOD COMMUNTIY COMMUNTIY VENIPUNCT HOSPITA HOSPITA URE BLOOD 80318 [facility] COUNT 5 N N COMPLETE COMMUNTIY COMMUNTIY AUTO&AUTO HOSPITA HOSPITA DIFRNTL WBC COMPREHEN 80320 [facility] SIVE 5 N N METABOLIC COMMUNTIY COMMUNTIY [place] [address] [facility] AMYLASE 5 N N [place] [address] [facility] LIPASE 5 N N COMMUNTIY [place] [address] [facility] [place] HUBER TRACT 5 RADIOLOGY UPPER W/WO DELAYED IMAGES W/KUB LAPAROSCO 4382 [facility] PIC 5 N N VERTICAL COMMUNTIY COMMUNTIY SLEEVE HOSPITA HOSPITA GASTRECTO MY OTHER 4513 [facility] ENDOSCOPY 5 N N OF SMALL COMMUNTIY COMMUNTIY HOSPITA HOSPITA INTESTINE LAPS 05396 [facility] MICHELLE GSTRC 5 RSTRICTIV BARIATRIC PX SURGICAL LONGITUDI NAL GASTRECTO MY ANES IPR 22287 [place] ANT UPPER 5 ANESTHESI ABDOMEN A GROUP LAPS PS GASTRIC RSTCV MO APPL 60821 [facility] MODALITY 5 [facility] 1/> AREAS INC INC ELEC STIMJ UNATTENDE D APPL 82534 [facility] MODALITY 5 [facility] 1/> AREAS INC INC ULTRASOUN D EA 15 MIN APPLICATI 03551 [facility] ON 5 [facility] MODALITY INC INC 1/> AREAS HOT/COLD PACKS COMPREHEN 87691 [facility] SIVE 5 N N METABOLIC COMMUNTIY COMMUNTIY PANEL HOSPITA HOSPITA GONADOTRO 00869 [facility] PIN 5 N N CHORIONIC COMMUNTIY COMMUNTIY HOSPITA HOSPITA QUALITATI VE BLOOD 00870 [facility] COUNT 5 N N COMPLETE COMMUNTIY COMMUNTIY AUTOMATED HOSPITA HOSPITA COLLECTIO 44729 [facility] N VENOUS 5 N N BLOOD COMMUNTIY COMMUNTIY VENIPUNCT HOSPITA HOSPITA URE DUP-SCAN 86124 [facility] XTR VEINS 5 [facility] COMPLETE INC INC BILATERAL STUDY APPL 40263 [facility] MODALITY 5 [facility] 1/> AREAS INC INC ELEC STIMJ UNATTENDE D APPLICATI 41083 [facility] ON 5 [facility] MODALITY INC INC 1/> AREAS HOT/COLD PACKS APPL 16552 [facility] MODALITY 5 [facility] 1/> AREAS INC INC ULTRASOUN D EA 15 MIN THERAPEUT 77018 [facility] IC PX 1/> 5 [facility] AREAS INC INC EACH 15 MIN EXERCISES SUSCEPTIB 73021 [facility] LTY STDY 5 [facility] ANTIMICRB INC INC IAL MICRO/AGA R DILUTJ CUL BACT 75678 [facility] XCPT 5 [facility] URINE INC INC BLOOD/STO OL AEROBIC ISOL APPL 20284 [facility] MODALITY 5 [facility] 1/> AREAS INC INC ELEC STIMJ UNATTENDE D THERAPEUT 53493 [facility] IC PX 1/> 5 [facility] AREAS INC INC EACH 15 MIN EXERCISES APPL 82123 [facility] MODALITY 5 [facility] 1/> AREAS INC INC ULTRASOUN D EA 15 MIN APPLICATI 31549 [facility] ON 5 [facility] MODALITY INC INC 1/> AREAS HOT/COLD PACKS APPLICATI 86110 [facility] ON 5 [facility] MODALITY INC INC 1/> AREAS HOT/COLD PACKS APPL 39101 [facility] MODALITY 5 [facility] 1/> AREAS INC INC ULTRASOUN D EA 15 MIN APPL 49431 [facility] MODALITY 5 [facility] 1/> AREAS INC INC IONTOPHOR ESIS EA 15 MIN APPL 05672 [facility] MODALITY 5 [facility] 1/> AREAS INC INC ELEC STIMJ UNATTENDE D APPL 54093 [facility] MODALITY 5 [facility] 1/> AREAS INC INC ELEC STIMJ UNATTENDE D APPL 02781 [facility] MODALITY 5 [facility] 1/> AREAS INC INC IONTOPHOR ESIS EA 15 MIN THERAPEUT 78940 [facility] IC PX 1/> 5 [facility] AREAS INC INC EACH 15 MIN EXERCISES APPL 45988 [facility] MODALITY 5 [facility] 1/> AREAS INC INC ULTRASOUN D EA 15 MIN APPLICATI 37537 [facility] ON 5 [facility] MODALITY INC INC 1/> AREAS HOT/COLD PACKS LIPID 63067 [facility] PANEL 5 N N COMMUNTIY COMMUNTIY HOSPITA HOSPITA COMPREHEN 06291 [facility] SIVE 5 N N METABOLIC COMMUNTIY COMMUNTIY PANEL HOSPITA HOSPITA RADIOLOGI 51209 [facility] [place] C EXAM 5 RADIOLOGY SHA CHEST 2 VIEWS FRONTAL&L ATERAL THYROID 59282 [facility] HORM 5 N N UPTK/THYR COMMUNTIY COMMUNTIY OID HOSPITA HOSPITA HORMONE BINDING RATIO BLOOD 11331 [facility] COUNT 5 N N COMPLETE COMMUNTIY COMM[place]TI[place] [address] [facility] THYROXINE 5 N N TOTAL COMMUNTIY COMMUNTIY HOSPITA HOSPITA CUL 97459 [facility] PRSMPTV 5 N N PTHGNC COMMUNTIY COMMUNTIY ORGANISM HOSPITA HOSPITA SCRN W/COLONY ESTIMJ COLLECTIO 63692 [facility] N VENOUS 5 N N BLOOD COMMUNTIY COMMUNTIY [place] [address] [facility] THYROID 5 N N STIMULATI COMMUNTIY COMMUNTIY NG HOSPITA HOSPITA HORMONE TSH ECG 95605 [facility] ROUTINE 5 N N ECG COMMUNTIY COMMUNTIY W/LEAST HOSPITA HOSPITA 12 LDS TRCG ONLY W/O I&R PHYSICAL 18370 [place] [facility] THERAPY 5 [facility] EVALUATIO INC INC N FIBRIN 05302 [place] DGRADJ 5 [facility] PRODUCTS INC INC D-DIMER QUAL/SEMI GILBERT COLLECTIO 95738 [place] [facility] N VENOUS 5 [facility] BLOOD INC INC VENIPUNCT URE ECG 36249 [place] CHAVEZ JR ROUTINE 5 [facility] W/LEAST P 12 LDS I&R ONLY BLOOD 95582 [place] [facility] COUNT 5 [facility] COMPLETE INC INC AUTO&AUTO DIFRNTL WBC ECG 32787 [place] [facility] ROUTINE 5 [facility] ECG INC INC W/LEAST 12 LDS TRCG ONLY W/O I&[place] [address] [place] [facility] TROPONIN 5 [facility] QUANTITAT INC INC SABIHA COMPREHEN 54698 [place] [facility] SIVE 5 [facility] METABOLIC INC INC PANEL RADIOLOGI 75791 [place] HARLEEN C EXAM 5 [facility] CHEST 2 IMAGING VIEWS ASS FRONTAL&L ATERAL URNLS DIP 13266 [place] [facility] 5 [facility] STICK/TAB INC INC LET REAGENT AUTO MICROSCOP Y RADIOLOGI 46447 SEJAL ABBOTTUTCHER C EXAM 5 [facility]RIANNA CHEST 2 IMAGING VIEWS ASS FRONTAL&L ATERAL COMPREHEN 02587 [place] SIVE 5 [facility] [address] [place] [facility] TROPONIN 5 [facility] QUANTITAT INC INC SABIHA ECG 77922 [place] ROUTINE 5 [facility] ECG INC INC W/LEAST 12 LDS TRCG ONLY W/O I&R FIBRIN 61870 [place] DGRADJ 5 [facility] PRODUCTS INC INC D-DIMER QUAL/[place] [address] SEJAL CANSECO ANGIOGRAP 5 MEDICAL ADRIANNA HY CHEST IMAGING W/CONTRAS ASS T/NONCONT RAST BLOOD 87265 [place] COUNT 5 [facility] COMPLETE INC INC AUTO&AUTO DIFRNTL WBC ECG 46309 [place] MATUTE ROUTINE 5 [facility] W/LEAST P 12 LDS I&R ONLY LOCM Q9967 [place] [facility] 300-399 5 [facility] MG/ML INC INC IODINE CONCENTRA TION PER ML RADEX 47286 [facility] SHOULDER 4 MEDICAL COMPLETE IMAGING MINIMUM 2 ASS VIEWS DESTRUCTI 28588 ATKINS ATKINS ON BENIGN 4 TRA TRA LESIONS UP TO 14 REPAIR 95219 ATKINS ATKINS COMPLEX 4 TRA TRA SCALP/ARM /LEG 1.1-2.5 CM LEVEL III 91786 SCALF LEI SCALF LEI SURG 4 PATHOLOGY GROSS&[place] [address] SEJAL CANSECO HEAD/BRAI 4 MEDICAL ADRIANNA N W/O IMAGING CONTRAST ASS MATERIAL THERAPEUT 70254 [place] [facility] IC 4 [facility] INJECTION INC INC IV PUSH EACH NEW DRUG SPECIAL 08026 [facility] JR WANDA GROUP 1 MICROORGA NISMS I&R SPCL STN 02508 [facility], [facility] 2 I&R 4 [facility] ER JR WANDA EXCPT MICROORG/ ENZYME/IM CYT EGD 65136 [facility] SANCHEZ MICHELLE TRANSORAL 4 BIOPSY BARIATRIC SINGLE/MU SURGICAL LTIPLE ANES 75144 SEJAL BENSON UPPER GI 4 ANESTHESI JOSE ANGEL ENDOSCOPY A GROUP [place] [address] [facility] SURG [facility] ER JR WANDA PATHOLOGY GROSS&BRYCE ROSCOPIC EXAM SPMTRY 13763 [place] [facility] W/VC 4 [facility] EXPIRATOR INC INC Y ABHI W/WO MXML VOL VNTJ EXC B9 69586 ADVANCED SCALF LEI LESION 4 DERMATOLO MRGN XCP GY SK TG S/N/H/F/G 1.1-2.0CM LEVEL III 12649 SCALF LEI SCALF LEI SURG 4 PATHOLOGY GROSS&BRYCE ROSCOPIC EXAM REPAIR 03982 ADVANCED SCALF LEI COMPLEX 4 DERMATOLO SCALP/ARM GY /LEG 1.1-2.5 CM RADIOLOGI 11685 [place] C EXAM 4 [facility] CHEST 2 INC INC VIEWS FRONTAL&L ATERAL REMOVAL 18126 ATKINS ATKINS SKN TAGS 4 TRA TRA CONCRETE RUBBER FIBRQ TAGS ANY AREA UPW/15 CV STRS 17238 [place] MATUTE TST 4 [facility]&/OR [facility] RX CONT P ECG I&R ONLY CV STRS 21851 [place] [facility] TST 4 [facility] XERS&/OR INC INC RX CONT ECG TRCG ONLY ECHO 90572 MELANIE MARTINEZ TTHRC R-T 4 MEDICAL ALI 2D SERV W/WOM-MOD FOUNDATIO E COMPL SPEC&COLR D RADIOLOGI 41239 [place] CHANEL C EXAM 4 MEDICAL CARMEN CHEST 2 IMAGING VIEWS ASS FRONTAL&L ATERAL BASIC 99000 [place] METABOLIC 4 [facility] [place] [address] [place] [facility] TROPONIN [facility] QUANTITAT INC INC SABIHA RADIOLOGI 49175 [place] C 4 [facility] EXAMINATI INC INC ON CHEST SINGLE [place]IEW FRONTAL ECG 89413 [place] ROUTINE 4 [facility] ECG INC INC W/LEAST 12 LDS TRCG ONLY W/O I&R ECG 34664 SCOTT CHAVEZ JR ROUTINE 4 DWI DWI ECG W/LEAST 12 LDS I&R ONLY BLOOD 32190 [facility] COUNT 4 [facility] COMPLETE INC INC AUTO&AUTO DIFRNTL WBC BLOOD 78203 [place] COUNT 4 [facility] COMPLETE INC INC AUTO&AUTO DIFRNTL WBC ECG 82473 GIVOANI MAT[place] ROUTINE 4 DOMINIQUE DOMINIQUE ECG W/LEAST 12 LDS I&R ONLY ECG 62253 [facility] [facility] ROUTINE 4 [facility] ECG INC INC W/LEAST 12 LDS TRCG ONLY W/O I&R FIBRIN 81114 [place] DGRADJ 4 [facility] PRODUCTS INC INC D-DIMER QUAL/[place] [address] [place] TROPONIN 4 [facility] QUANTITAT INC INC SABIHA CREATINE 14712 [place] KINASE MB 4 [facility] FRACTION INC INC ONLY CREATINE 91454 [place] KINASE 4 [facility] TOTAL INC INC RADIOLOGI 91263 [place] C EXAM 4 [facility] CHEST 2 INC INC VIEWS FRONTAL&L ATERAL COMPREHEN 05416 [place] SIVE 4 [facility] METABOLIC INC INC PANEL HEMOGLOBI 24614 COMBINED COMBINED N 4 PHYSICIAN PHYSICIAN GLYCOSYLA S LA S LA LANEY A1C LIPID 15584 COMBINED COMBINED PANEL 4 PHYSICIAN PHYSICIAN S LA S LA GENERAL 14191 COMBINED COMBINED HEALTH 4 PHYSICIAN PHYSICIAN PANEL S LA S LA 25 67511 COMBINED COMBINED HYDROXY 4 PHYSICIAN PHYSICIAN INCLUDES S LA S LA FRACTIONS IF PERFORMED CYANOCOBA 64860 COMBINED COMBINED LYUBOV 4 PHYSICIAN PHYSICIAN VITAMIN S LA S LA B-12 SEDIMENTA 29772 COMBINED COMBINED TION RATE 4 PHYSICIAN PHYSICIAN [place] [address] COMBINED COMBINED FREE 4 PHYSICIAN PHYSICIAN THYROXINE S LA S LA COMPUTER- 44642 [place] AIDED 4 [facility] DETECTION INC INC SCREENING MAMMOGRAP HY SCREENING G0202 [place] [facility] 4 [facility] MAMMOGRAP INC INC HY WILBERT INCL CAD WHEN PERFORMD LIPID 78754 [facility] PANEL 4 DIAGNOSTI DIAGNOSTI CS CS IIV3 88063 DHS/CO [place] VACCINE 9 [facility]ALTH [facility] VIRUS 0.5 BANK ACCT ML DOSAGE IM USE RADEX 01476 [place] SPINE 9 [facility] LUMBOSACR INC INC AL MINIMUM 4 VIEWS RADEX HIP 70319 Georgi [facility] [place] [facility] ASSOCIATE COMPLETE S MINIMUM 2 VIEWS RADEX 04131 KIMBERLEE PASCUAL, SPINE 9 [facility] LUMBSCRL CORPORATI COMPL ON W/BENDING VIEWS MIN 6 RADIOLOGI 34814 [facility] SPENCER 9 MEDICAL MAX [place] EXAMINATI IMAGING ON PELVIS ASSOCIATE 1/2 S VIEWS Encounters Encounter Start End Date Code Location Performer Type Date OFFICE 18921 [facility] KIMBERLY OUTPATIEN 7 7 PHYSICIAN T VISIT S GROUP 25 MINUTES OFFICE 95925 [facility] ISSA OUTPATIEN 7 7 PHYSICIAN T VISIT S GROUP 10 MINUTES OFFICE 79656 [facility] KIMBERLY OUTPATIEN 7 7 PHYSICIAN T VISIT S GROUP 25 MINUTES [facility] [place] [facility] OUTPATIEN INC T OFFICE 25923 [facility] OUTPATIEN 7 7 [facility] T VISIT INTERNAL 15 MED MINUTES [facility] [place] [facility] OUTPATIEN INC T OFFICE 07760 [facility] KIMBERLY OUTPATIEN 7 7 PHYSICIAN T VISIT S GROUP 25 MINUTES OFF[facility] 69310 [facility] [place] T VISIT ORTHOPAED 15 IC MINUTES EMERGENCY 23845 [place] 7 7 [facility] T VISIT HIGH/URGE NT SEVERITY [facility] [place] - 7 7 [facility] OUTPATIEN [facility] EMERGENCY 01080 SMILEY ARMIJO DEPT 7 7 PHYSICIAN [facility]ISIT S, [facility] HIGH SEVER[facility]& THREAT FUNCJ OFFICE 39803 [facility] GIOVANI CHAND 7 7 [place] T VISIT INTERNAL 25 MED MINUTES OFFICE 38994 [place] OUTPATIEN 7 7 [facility] T VISIT 5 INC MINUTES [facility] [place] - 7 7 [facility] OUTPATIEN [facility] OFFICE 45564 [facility] 7 7 [place] T NEW 30 ORTHOPAED MINUTES IC EMERGENCY 29436 [place] 7 [facility] T VISIT LOW/MODER SEVERITY [facility] [place] - 7 7 [facility]PATIEN [facility] [place] [facility] 7 7 [facility]PATIEN [facility] EMERGENCY 12745 [place] 7 7 [facility] T VISIT MODERATE [facility]VERITY [facility] [place] - 7 7 [facility] OUTPATIEN [facility] [place] - 7 7 [facility]PATI[facility] EMERGENCY 55659 [place] 7 7 [facility] T VISIT LOW/MODER SEVERITY EMERGENCY 56669 S[facility]LEY PASCUAL 7 7 PHYSICIAN DEPARTMEN S, [facility] T VISIT HIGH/URGE NT SEVERITY OFFICE 39228 [place] RICHY CHAND 7 7 [place] T VISIT INTERNAL 15 MED MINUTES EMERGENCY 46280 [facility] 7 7 [facility] T VISIT LOW/MODER SEVERITY EMERGENCY 19777 [facility] 7 7 [facility] EMERGENCY T VISIT PHYS MODERATE SEVERITY [facility] [place] [facility] 7 7 [facility] T OFFICE 63563 [place] [facility] 7 7 [facility] T VISIT 5 INC MINUTES [facility] [place] [facility] 7 7 [facility] OUTPATIEN [facility] OFFICE 89872 [place] OUTPATIEN 7 7 [place] T VISIT INTERNAL 15 MED MINUTES [facility] [place] [facility] 7 [facility]EN [facility] T OFFICE 69345 [place] OUTPATIEN 7 7 [facility] T VISIT 5 INC MINUTES OFFICE 21000 [place] OUTPATIEN 7 7 [facility] T VISIT 5 INC [facility] [place] [facility] 7 7 [facility]EN [facility] T OFFICE 01669 [place] OUTPATIEN 7 7 [place] T VISIT INTERNAL 25 MED MINUTES OFFICE 55196 [place] OUTPATIEN 7 7 [facility] T NEW 10 INC MINUTES [facility] [place] [facility] 7 7 [facility] OUTPATIEN [facility] 7 [facility] OFFICE 33213 [facility] JASSO OUTPATIEN 7 7 T VISIT 25 MINUTES [facility] [place] [facility] 7 7 [facility] OUTPATIEN [facility] EMERGENCY 45200 [place] 7 7 [facility] DEPARTMEN [facility] T VISIT LIMITED/M INOR PROB EMERGENCY 39672 [place] 7 7 [facility] DEPARTMEN [facility] T VISIT LOW/MODER SEVERITY [facility] [place] [facility] 7 7 [facility] OUTPAT[facility]EN [facility] T EMERGENCY 95415 [place] 7 7 [facility] DEPARTMEN [facility] T [facility]ISIT LIMITED/M INOR PROB [facility] [place] - 7 7 [facility] OUTPATIEN [facility] - 7 7 HEALTH OUTPATIEN [facility] ORIENTAL [facility] - 7 7 HEALTH OUTPATIEN [facility] EMERGENC[facility] 33984 [place] 6 [facility] T VISIT HIGH/URGE NT SEVERITY [facility] [place] - 6 6 [facility] T OFFICE 51891 [place] OUTPATIEN 6 6 VALLEY T VISIT INTERNAL 15 MED MINUTES EMERGENCY 50688 SMILEY JAQUEZ 6 6 PHYSICIAN RADHA Reddy [facility] T VISIT HIGH/URGE NT SEVERITY EMERGENCY 78985 [place] 6 6 [facility] T VISIT MODERATE SEVERITY [facility] [place] - 6 6 [facility] T EMERGENCY 49652 [place] 6 6 [facility] T [facility]ISIT LIMITED/M INOR PROB [facility] [place] - 6 6 [facility] T EMERGENCY 75162 SMILEY ARMIJO 6 6 PHYSICIAN RADHA Reddy [facility] T VISIT MODERATE SEVERITY EMERGENCY 63174 [place] 6 6 [facility] T VISIT LOW/MODER SEVERITY [facility] [place] - 6 6 [facility] T EMERGENCY 01132 S[facility] PASCUAL 6 6 PHYSICIAN BRYCE Reddy [facility] T VISIT MODERATE SEVERITY OFFICE 20815 SCIFRES SCIFRES OUTPATIEN 6 6 ANG ANG T VISIT 10 MINUTES OFFICE 79548 [place] ARSLAN OUTPATIEN 6 6 [facility] OFELIA T VISIT INTERNAL 15 MED MINUTES OFFICE 33087 [facility] SANCHEZ MICHELLE OUTPATIEN 6 6 T VISIT BARIATRIC 25 SURGICAL MINUTES EMERGENCY 05507 S[facility] SOTOMAYOR 6 6 PHYSICIAN JR MANUELITO Reddy [facility] T VISIT HIGH/URGE NT SEVERITY [facility] [place] [facility] 6 6 [facility] OUTPATIEN INC T EMERGENCY 46749 [place] 6 6 [facility] DEPARTMEN INC T VISIT LOW/MODER SEVERITY EMERGENCY 86100 SMILEY PASCUAL 6 6 PHYSICIAN BRYCE DEPARTMEN S, PLLC T VISIT MODERATE SEVERITY EMERGENCY 51840 [place] 6 6 [facility] T VISIT LIMITED/M INOR PROB [facility] [place] - 6 6 [facility] OUTPATIEN INC T OFFICE 00681 [facility] OUTPATIEN 6 6 [facility] T VISIT MEDICAL 15 G MINUTES [facility] [place] [facility] 6 6 [facility] OUTPATIEN INC T OFFICE 98112 [facility] HUMPHREY OUTPATIEN 6 6 PHYSICIAN MEAGAN T VISIT S GROUP 15 MINUTES [facility] [place] [facility] 6 6 [facility] OUTPATIEN INC T OFFICE 99676 [facility] ISSA OUTPATIEN 6 6 PHYSICIAN JARON T VISIT S GROUP 10 MINUTES [facility] [place] [facility] 6 6 [facility] OUTPATIEN INC T EMERGENCY 05871 [place] 6 6 [facility] DEPARTMEN INC T VISIT MODERATE SEVERITY [facility] [place] - 6 6 [facility] OUTPATIEN INC T OFFICE 26498 [facility] ISSA OUTPATIEN 6 6 PHYSICIAN JARON T VISIT S GROUP 10 MINUTES [facility] [place] [facility] 6 6 [facility] OUTPATIEN INC T OFFICE 31323 [place] ALATORRE [facility]PATIEN 6 [facility] T VISIT [facility] 10 P MINUTES OFFICE 24927 DOMINICK ANDRES OUTPATIEN 6 6 HEALTH IV HEN T VISIT MEDICAL 15 GROUP MINUTES OFFICE 18136 [facility] OUT[facility] 6 6 GROUND T VISIT FAMILY 25 CLINI MINUTES OFFICE 32697 [facility] VISIT 5 HLTH DEPT HLTH DEPT MINUTES JAZZ BANNER EMERGENCY 01557 SMI[facility] ARMIJO 6 6 PHYSICIAN CASANDRA Reddy [facility] T VISIT HIGH/URGE NT SEVERITY EMERGENCY 16551 [place] 6 6 [facility] T VISIT MODERATE SEVERITY EMERGENCY 14685 [place] 6 6 [facility] T VISIT LOW/MODER SEVERITY [facility] [place] - 6 6 [facility] OUTPATIEN [facility] T [facility] [place] - 6 6 [facility] OUTPATIEN INC T OFFICE 83864 [facility] KIMBERLY OUTPATIEN 6 6 PHYSICIAN MAT T VISIT S GROUP 25 MINUTES [facility]OSP[facility] [place] - 6 6 [facility] OUTPATIEN [facility] T OFFICE 17367 [facility] 6 T VISIT BARIATRIC 25 SURGICAL MINUTES OFFICE 50122 [facility] KIMBERLY OUTPATIEN 6 6 PHYSICIAN MAT T NEW 45 S GROUP MINUTES [facility] [place] - 6 6 [facility] OUTPATIEN [facility] T EMERGENCY 47779 [place] 6 6 [facility] T VISIT LOW/MODER SEVERITY EMERGENCY 28309 SMILEY PASCUAL 6 6 PHYSICIAN BRYCE Reddy [facility] T VISIT MODERATE SEVERITY OFFICE 20777 ALLERGY ROSENTHAL MAR OUTPATIEN 6 6 PARTNERS T VISIT OF [place] 40 CO MINUTES EMERGENCY 53976 S[facility] JIMENEZ 6 6 PHYSICIAN Taylor Reddy [facility] T VISIT HIGH/URGE NT SEVERITY EMERGENCY 75146 [place] 6 6 [facility] T VISIT LOW/MODER SEVERITY [facility] [place] - 6 6 [facility] OUTPATIEN [facility] [place] [facility] 6 6 [facility] OUTPATIEN [facility] T EMERGENCY 34448 SMILEY PASCUAL 6 6 PHYSICIAN BRYCE DEPARTMEN S, [facility] T VISIT MODERATE SEVERITY EMERGENCY 78293 [place] 6 6 [facility] T VISIT LOW/MODER SEVERITY OFFICE 09719 [facility] 6 6 N T VISIT NEUROLOGY 10 MINUTES [facility] [place] - 6 6 [facility] OUTPATIEN [facility] [place] [facility] 6 6 [facility] OUTPATIEN [facility] T EMERGENCY 88609 [place] 6 [facility] T [facility]ISIT LIMITED/M INOR PROB EMERGENCY 88194 SMILEY SOTOMAYOR 6 6 PHYSICIAN JR MANUELITO [facility] T VISIT MODERATE SEVERITY [facility] [place] - 6 6 [facility] OUTPATIEN [facility] T EMERGENCY 98149 SMILEY PASCUAL DEPT 6 6 PHYSICIAN BRYCE VISIT , [facility] HIGH SEVERITY& THREAT FUNCJ [facility] [place] - 6 6 [facility] OUTPATIEN [facility] T EMERGENCY 56141 [place] 6 [facility] T VISIT MODERATE SEVERITY OFFICE 10564 [place] [facility] 6 6 [facility] 10 P MINUTES [facility] [place] - 6 6 [facility] OUTPATIEN [facility] T EMERGENCY 02134 [place] 6 [facility] T VISIT MODERATE SEVERITY EMERGENCY 26469 Milana ZENDEJAS 6 PHYSICIAN JR MANUELITO GARCIA , [facility] T VISIT HIGH/URGE NT SEVERITY OFFICE 58575 [place] [facility] 6 6 [facility] ER VISIT HOSPITAL 10 P MINUTES EMERGENCY 78802 SMILEY PASCUAL DEPT 6 6 PHYSICIAN BRYCE VISIT S, PLLC HIGH SEVERITY& THREAT FUNCJ OFFICE 76620 ALLERGY ROSENTHAL MAR CONSULTAT 6 6 PARTNERS ION OF TRE NEW/ESTAB CO PATIENT 60 MIN [facility] [place] - 6 6 [facility] OUTPATIEN [facility] T EMERGENCY 05986 SMILEY PASCUAL 6 6 PHYSICIAN BRYCE DEPARTMEN S, PLLC T VISIT MODERATE SEVERITY EMERGENCY 36991 [place] 6 [facility] T VISIT LOW/MODER SEVERITY EMERGENCY 45833 SMILEY PASCUAL DEPT 6 6 PHYSICIAN BRYCE VISIT S, PLLC HIGH SEVERITY& THREAT FUNCJ EMERGENCY 51535 [place] 6 [facility] T VISIT LOW/MODER SEVERITY [facility] [place] - 6 6 [facility] OUTPATIEN [facility]OSPITAL [place] - 6 6 [facility] OUTPATIEN [facility] EMERGENCY 84600 SMILEY SUGGS [facility] 6 6 PHYSICIAN DEPARTMEN S, PLLC T VISIT LOW/MODER SEVERITY OFFICE 41532 [facility] 6 6 PHYSICIAN T VISIT S GROUP 25 MINUTES EMERGENCY 48080 [place] 6 [facility] T VISIT LOW/MODER SEVERITY EMERGENCY 84494 SMILEY PASCUAL 6 6 PHYSICIAN [facility] DEPARTMEN S, [facility] T VISIT MODERATE SEVERITY [facility] [place] - 6 6 [facility] OUTPATIEN [facility] 6 6 N OUTPATIEN COMMUN[facility] [place] [facility] 6 6 [facility] OUTPATIEN [facility] OFFICE 21753 [facility]SE[facility] BEREAEN 6 6 PHYSICIAN JARON T NEW 20 S GROUP MINUTES EMERGENCY 74346 [place] 6 6 [facility] T VISIT MODERATE SEVERITY EMERGENCY 77039 SMILEY ARMIJO DEPT 6 6 PHYSICIAN CASANDRA VISIT S, PLLC HIGH SEVERITY& THREAT FUNCJ EMERGENCY 33594 SMILEY PASCUAL 6 6 PHYSICIAN BRYCE DEPARTMEN S, PLLC T VISIT HIGH/URGE NT SEVERITY [facility] [place] - 6 6 [facility] OUTPATIEN [facility] 6 6 N OUTPATIEN COMMUNTIY [facility] [place] - 6 6 [facility] INC T EMERGENCY 31000 SMILEY PASCUAL DEPT 6 6 PHYSICIAN BRYCE VISIT S, PLLC HIGH SEVERITY& THREAT FUNCJ EMERGENCY 99411 [place] 6 [facility] T VISIT MODERATE SEVERITY OFFICE 14228 [facility] 6 6 T VISIT BARIATRIC 25 SURGICAL MINUTES [facility] [place] - 6 6 [facility] OUTPATIEN [facility] - 6 6 HEALTH OUTPATIEN [facility] EMERGENCY 45864 [facility] 6 6 HEALTH DEPARTMEN [facility] VISIT MODERATE [facility]VERITY [facility] [place] - 6 6 [facility] OUTPATIEN [facility] EMERGENCY 39076 [place] 6 6 [facility] T VISIT LOW/MODER SEVERITY EMERGENCY 01390 SMILEY BAGLEY DEPT 6 6 PHYSICIAN FOR VISIT S, PLLC HIGH SEVERITY& THREAT [facility] [place] - 6 6 [facility] OUTPATIEN INC T EMERGENCY 33462 SMILEY PASCUAL 6 6 PHYSICIAN BRYCE DEPARTMEN S, PLLC T VISIT HIGH/URGE NT SEVERITY EMERGENCY 99022 SMILEY HUNT 6 6 PHYSICIAN DEPARTMEN S, PLLC T VISIT HIGH/URGE NT SEVERITY EMERGENCY 58802 [place] 6 6 [facility] DEPART[facility] INC T VISIT LOW/MODER SEVERITY [facility] [place] [facility] 6 6 [facility] T EMERGENCY 89007 [facility] 6 6 [facility] EMERGENCY T VISIT PHYS HIGH/URGE NT SEVERITY [facility] - 6 6 N OUTPATIEN COMMUNTIY T HOSPITA EMERGENCY 81696 [place] DEPT 6 6 [facility] VISIT INC HIGH SEVERITY& THREAT [facility]J [facility] [place] - 6 6 [facility] INC T OFFICE 37470 [facility] 6 6 N ION NEUROLOGY NEW/ESTAB PATIENT 60 MIN OFFICE 13547 [facility] 6 6 MATTI MATTI T NEW 30 MINUTES OFFICE 08117 SCAL[facility] LEI SCALF LEI OUTPATIEN 6 6 T VISIT 25 MINUTES EMERGENCY 81563 SMILEY PASCUAL DEPT 6 6 PHYSICIAN BRYCE VISIT S, PLLC HIGH SEVERITY& THREAT FUNCJ EMERGENCY 83309 [place] 6 6 [facility] DEPARTMEN INC T VISIT HIGH/URGE NT SEVERITY [facility] [place] [facility] 6 6 [facility] OUT[facility] INC T OFFICE 91143 [facility] 6 6 [facility] T VISIT INTERNAL 15 MED MINUTES HOSPITAL [facility] - 6 6 HEALTH OUTPATIEN [facility] [place] - 6 6 [facility] OUTPAT[facility] INC T EMERGENCY 42540 SMILEY PASCUAL DEPT 6 6 PHYSICIAN BRYCE VISIT S, PLLC HIGH SEVERITY& THREAT FUNCJ EMERGENCY 64361 [place] 6 6 [facility] DEPARTMEN INC T VISIT HIGH/URGE NT SEVERITY [facility] [place] [facility] 6 6 [facility] OUT[facility] INC T OFFICE 12902 [facility] [place] OUT[facility] 6 6 HEALTH KADIE T VISIT MEDICAL 15 GROUP MINUTES OFFICE 54090 [facility] SANCHEZ [facility]HEL[facility] OUTPATIEN 6 6 T VISIT BARIATRIC 25 SURGICAL MINUTES [facility] [place] [facility] 6 6 [facility] T OFFICE 37278 [place] [facility] 6 6 [facility] T VISIT INTERNAL 15 MED MINUTES INITIAL 55100 [facility] PREVENTIV 6 6 PHYSICIAN E S GROUP MEDICINE NEW PATIENT [id number] [facility] [place] - 6 6 [facility] OUT[facility] INC T OFFICE 95105 [facility] [place] OUTPATIEN 6 6 PRIMARY KADIE T VISIT CARE OF 15 ABISAI MINUTES OFFICE 99528 [place] [facility] 6 6 [facility] T VISIT INTERNAL 15 MED MINUTES [facility] [place] [facility] 6 6 [facility] INC T OFFICE 86158 [facility]Y SANCHEZ MICHELLE OUTPATIEN 5 5 T VISIT BARIATRIC 25 SURGICAL MINUTES OFFICE 44309 ATKINS ATKINS OUTPATIEN 5 5 TRA TRA T VISIT 25 MINUTES PERIODIC [id number] [facility]TH DEPT HLTH DEPT PATIENT JAZZ JAZZ [id number] OFFICE 30949 WENDY SANCHEZ MICHELLE OUTPATIEN 5 5 T VISIT BARIATRIC 15 SURGICAL MINUTES [facility] [place] [facility] [place] [facility] T OFFICE 70504 [place] ARSLAN OUTPATIEN 5 5 [facility] OF[facility] T NEW 30 INTERNAL MINUTES MED OFFICE 64870 [facility] PETTEY OUTPATIEN 5 5 PHYSICIAN JAM T VISIT S GROUP 15 MINUTES OFFICE 37207 GASTROENT CASE JUS OUTPATIEN 5 5 EROLOGY T VISIT AND 15 HEPATOL MINUTES OFFICE 91122 [facility] DARSHANK OUTPATIEN 5 5 HEALTH KADIE T VISIT MEDICAL 10 GROUP MINUTES [facility] [place] [facility] 5 5 N OUTPATIEN COMMUNTIY T [facility] 31816 [place] 5 [facility] DEPART[facility] T VISIT HIGH/URGE NT SEVERITY [facility] [place] [facility] T [facility] [place] [facility] 5 5 N OUTPATIEN COMMUNTIY T [facility] [place] [facility] 5 [facility] OUTPATIEN INC T OFFICE 48457 GASTROENT CASE JUS OUTPATIEN 5 5 EROLOGY T NEW 45 AND MINUTES HEPAT [facility] [place] [facility] 5 [facility] OUTPAT[facility] INC T EMERGENCY 37448 [place] 5 5 [facility] DEPARTMEN INC T VISIT LOW/MODER SEVERITY OFFICE 05410 DANIEL SANCHEZ OUTPATIEN 5 5 HUBER HUBER T VISIT 15 MINUTES EMERGENCY 06608 [place] 5 5 [facility] DEPARTMEN INC T VISIT MODERATE SEVERITY [facility] [place] [facility] 5 5 [facility] [place] - 5 5 N OUTPATIEN COMMUNTIY T [facility] [place] - 5 5 N OUTPATIEN COMMUNTIY T [facility] [place] [facility] 5 5 N INPATIENT COMMUNTIY [facility] [place] [facility] 5 [facility] OUTPATI[facility] INC T OFFICE 40960 [facility] SANCHEZ MICHELLE OUTPATIEN 5 5 T VISIT BARIATRIC 40 SURGICAL MINUTES OFFICE 37757 DANEIL ROBERTSBING OUTPATIEN 5 5 [facility] T VISIT 15 MINUTES EMERGENCY 49931 [place] 5 5 [facility] DE[facility] T VISIT LOW/MODER SEVERITY [facility] [place] [facility] [place] [facility] 5 [facility] [place] [facility] 5 5 N OUTPATIEN COMMUNTIY T [facility] [place] [facility] 5 5 [facility] [place] [facility] 5 5 [facility] INC T OFFICE 75170 [place] CELI OUTPATIEN [address] MINUTES P OFFICE 94216 MELANIE NOGUEIRA OUTPATIEN 5 5 MEDICAL JAM T VISIT SERV 15 FOUNDATIO MINUTES N OFFICE 57288 [place] WEISS JR OUTPATIEN [address] MINUTES P OFFICE 56815 [facility] [place] OUTPATIEN 5 5 PHYSICIAN JAM [facility] 30 S GROUP MINUTES OFFICE 14706 [facility] CON[facility]ULTAT 5 5 [facility] MEDICAL NEW/ESTAB G PATIENT 60 MIN OFFICE 07814 DANIEL SANCHEZ OUTPATIEN 5 5 HUBER HUBER T VISIT 15 MINUTES EMERGENCY 13930 [place] 5 5 [facility] T VISIT HIGH/URGE NT SEVERITY [facility] [place] [facility] 5 5 [facility] OUT[facility] INC T EMERGENCY 08919 [place] ESCOTO 5 5 [facility] T VISIT P MODERATE SEVERITY [facility] [place] [facility] 5 5 [facility] OUTPATI[facility] INC T EMERGENCY 39954 [place] 5 5 [facility] DEPARTMEN INC T VISIT HIGH/URGE NT SEVERITY OFFICE 84848 DANIEL CHAND 5 5 [facility] T VISIT 15 MINUTES OFFICE 05863 DANIEL CHAND 4 4 [facility] T VISIT 15 MINUTES [facility] [place] Estes 4 4 [facility] T EMERGENCY 17503 [place] WINTERS 4 4 [facility] T VISIT P LOW/MODER SEVERITY OFFICE 15761 DANIEL CHAND 4 4 [facility]BER HUBER T VISIT 15 MINUTES EMERGENCY 22833 [facility] DEPT 4 4 ROSAL[place] VISIT EMERGENCY HIGH PHYS SEVERITY& THREAT [facility] [place] Estes 4 4 [facility] OUTPATIEN [facility] [place] [address] 4 N [facility] HOSPITA OFFICE 13670 DANIEL CHAND 4 4 [facility] HUBER T VISIT 15 MINUTES OFFICE 93823 MONALISA CHAPIN CONSULTAT 4 4 KADIE ION CARDIOLOG NEW/ESTAB Y AT CENT PATIENT 40 MIN OFFICE 22384 MELANIE NOGUEIRA CONSULTAT 4 4 MEDICAL JAM ION SERV NEW/ESTAB FOUNDATIO PATIENT N 60 MIN [facility] [place] - 4 4 [facility] OUTPATIEN [facility] [place] Estes 4 4 [facility] OUTPATIEN INC T OFFICE 11262 DANIEL CHAND 4 4 [facility] T VISIT 15 MINUTES OFFICE 09024 [facility] 4 NE [facility] NACHO T VISIT MEDICAL 15 G MINUTES OFFICE 84821 ATKINS ATKINS CONSULTAT 4 4 TRA TRA ION NEW/ESTAB PATIENT 40 MIN [facility] [place] [facility] 4 4 [facility] OUT[facility] INC T OFFICE 04843 [facility] FALLUJI OUTPATIEN 4 4 NE [facility] NACHO T NEW 30 MEDICAL MINUTES G EMERGENCY 57878 [facility] 4 ROSALEE MOH VISIT EMERGENCY HIGH PHYSI SEVERITY& THREAT FUN [facility] [place] [facility] 4 4 [facility] OUT[facility] INC T EMERGENCY 55075 [place] 4 4 [facility] DEPART[facility] INC T VISIT MODERATE SEVERITY EMERGENCY 23194 HORTENCIA HUGHES DEPT 4 4 VISIT HIGH SEVERITY& THREAT FUN OFFICE 55560 DANIEL TOLEDOPATIEN 4 4 HUBER HUBER T VISIT 15 MINUTES EMERGENCY 61481 ANKUR PASCUAL DEPT 4 4 BRYCE BRYCE VISIT HIGH SEVERITY& THREAT FUN EMERGENCY 00531 [place] 4 4 [facility] T VISIT HIGH/URGE NT SEVERITY [facility] [place] [facility] OUT[facility] T OFFICE 55057 SANCHEZ MICHELLE SANCHEZ MICHELLE CONSULTAT 4 4 ION NEW/ESTAB PATIENT 80 MIN OFFICE 10592 ARMANDOBING DANIEL OUTDAYRON 4 4 HUBER HUBER T NEW 30 MINUTES [facility] [place] [facility] T OFFICE 34969 MAEGAN ISSA OUTDAYRON 4 4 JARON JARON T VISIT 5 MINUTES OFFICE 23569 MAEGAN ISSA OUTDAYRON 4 4 JARON JARON T NEW 30 MINUTES Emergency PATRIC Burnett MD (ER) 4 16:35 4 17:31 [facility] Emergency PATRIC BURNETT (ER) 3 16:45 3 18:19 [facility] [place] - 9 9 [facility] OUTPATIEN INC T EMERGENCY 13830 KIMBERLEE PASCUAL, 9 9 [facility] T VISIT ON HIGH/URGE NT SEVERITY EMERGENCY 95829 [place] 9 9 [facility] INC T VISIT LOW/MODER SEVERITY
--- OUTSIDE RECORDS SUMMARY | 2017-03-24 00:50 | External Medical Summary Rpt ---
Author Author , Organization [employer] Address Unknown Phone Unavailable Care Team Providers Care Electroplater Automatic Name Role Phone ALFARIS MOH, ALFARIS Unavailable Unavailable MOH [facility] Unavailable Unavailable [place], [facility] [place] ARNOLD HUBER, ARNOLD Unavailable Unavailable HUBER ARNOLD HUBER, ARNOLD Unavailable Unavailable HUBER ATKINS TRA, ATKINS Unavailable Unavailable TRA ATKINS TRA, ATKINS Unavailable Unavailable TRA MICHELLE ALI, MICHELLE Unavailable Unavailable ALI [facility] Unavailable Unavailable [facility] Unavailable Unavailable MEDICAL GROUP, [facility] MEDICAL [facility] Unavailable Unavailable OF AB[facility], [facility] BEINEKE, BEINEKE Unavailable Unavailable BEINEKE CARMEN, BEINEKE Unavailable Unavailable CARMEN BESSON, BESSON Unavailable Unavailable BESSON DOMINIQUE, BESSON Unavailable Unavailable DOMINIQUE [facility] Unavailable Unavailable SURGICAL, [facility] Unavailable Unavailable [facility], [facility] BOLIEK KADIE, BOLIEK Unavailable Unavailable KADIE CERRATO, CERRATO Unavailable Unavailable CERRATO ALL, CERRATO ALL Unavailable Unavailable [facility] Unavailable Unavailable HOSPITAL, [facility] Unavailable Unavailable SERVICE, [facility] Unavailable Unavailable SERVICE, [facility] SVITLANA KILO, SVITLANA Unavailable Unavailable KILO CASE JUS, CASE JUS Unavailable Unavailable [facility] Un[facility] Un[facility], [facility] Unavailable [facility], [facility] CHESTNUT, CHESTNUT Unavailable Unavailable HUMPHREY MEAGAN, [...] AND Unavailable Unavailable [facility], [facility] Unavailable Unavailable HOSPITA, [facility] HOSPITA [facility] Unavailable Unavailable HOSPITA, [facility] RODRIGUEZ TRI, RODRIGUEZ TRI Unavailable Unavailable ANDREWS RHO, ANDREWS Unavailable Unavailable RHO [facility] Unavailable Unavailable [place], [facility] Unavailable Unavailable INC, [facility] Unavailable Unavailable HOSPITAL P, [facility] P BOYER CHRISTEL, BOYER CHRISTEL Unavailable Unavailable BOYER CHRISTEL, BOYER CHRISTEL Unavailable Unavailable [facility], Unavailable Unavailable [facility] JAQUEZ, JAQUEZ Unavailable Unavailable VAUGHN TERA, VAUGHN Unavailable Unavailable BRYAN LONDONO Unavailable Unavailable ILUYOMADE ROT, Unavailable Unavailable ILUYOMADE ROT FELICIA DUARTE Unavailable Unavailable [facility] Unavailable Unavailable GROUP PS, [facility] Unavailable Unavailable [facility], [facility] Unavailable Unavailable MEDICAL G, [facility] MEDICAL G ELYSSA BURNETT, Unavailable Unavailable ELYSSA [...] [facility]EANU CARMEN [facility] Unavailable Unavailable [facility], [facility] [place] Unavailable Unavailable [facility], [facility] Unavailable Unavailable [address], [facility] WALKER FOR, WALKER Unavailable Unavailable FOR [facility] Unavailable Unavailable DEPT JAZZ, [facility] Unavailable Unavailable DEPT JAZZ, [facility] SANCHEZ, SANCHEZ Unavailable Unavailable SANCHEZ MICHELLE, SANCHEZ MICHELLE Unavailable Unavailable WELLS ELLEN, WELLS ELLEN Unavailable Unavailable WELLS SHA, WELLS SHA Unavailable Unavailable ROSENTHAL MAR, ROSENTHAL MAR Unavailable Unavailable SARAH KADIE, SARAH KADIE Unavailable Unavailable Purpose Continuity of Care Document - 01-04-2009 through 2016 Problems Code Diagnosis DOS Provider Status E669 OBESITY 02-25-2017 [facility] UNSPECIFIED PHYSICIANS GROUP I119 HYPERTENSIV 02-25-2017 [facility] E HEART PHYSICIANS DISEASE GROUP WITHOUT HEART FAILURE K449 DIAPHRAGMAT 02-25-2017 [facility] IC HERNIA PHYSICIANS W/O GROUP OBSTRUCTION OR GANGRENE R0600 DYSPNEA 02-25-2017 [facility] UNSPECIFIED PHYSICIANS GROUP R079 CHEST PAIN 02-25-2017 [facility] UNSPECIFIED PHYSICIANS GROUP J310 CHRONIC 02-17-2017 [facility] RHINITIS PHYSICIANS GROUP J329 CHRONIC 02-17-2017 [facility] SINUSITIS PHYSICIANS UNSPECIFIED GROUP J342 DEVIATED 02-17-2017 [facility] NASAL PHYSICIANS SEPTUM GROUP K5900 CONSTIPATIO 02-14-2017 [facility] UNSPECIFIED IMAGING ASS I998 OTHER 02-11-2017 [facility] DISORDER OF [facility] INC CIRCULATORY SYSTEM R0602 SHORTNESS 02-11-2017 [place] OF BREATH [facility] INC G8929 OTHER 02-10-2017 [facility] CHRONIC VALLEY PAIN INTERNAL MED Z19743 PAIN IN 02-10-2017 [facility] LEFT VALLEY SHOULDER INTERNAL MED M5440 LUMBAGO 02-10-2017 [facility] WITH VALLEY SCIATICA INTERNAL UNSPECIFIED MED SIDE R002 PALPITATION 01-31-2017 [facility] S PHYSICIANS GROUP R5383 OTHER 01-31-2017 [facility] FATIGUE PHYSICIANS GROUP M5136 OTH 01-30-2017 [facility] [place] RAL DISC [facility]THOP[facility]EDIC DEGEN LUMBAR REGION E559 VITAMIN D 01-29-2017 [facility] DEFICIENCY MAI UNSPECIFIED HOLDINGS M545 LOW BACK 01-29-2017 [facility] S PSC R072 PRECORDIAL 01-29-2017 [facility] PAIN PHYSICIANS, PLLC R0789 OTHER CHEST 01-29-2017 [facility] R110 NAUSEA 01-29-2017 [facility] P J98111 OTHER 01-29-2017 [facility] SPECIFIED MAI POSTPROCEDU HOLDINGS [facility] STATES M792 NEURALGIA 01-27-2017 [facility] AND VALLEY NEURITIS INTERNAL UNSPECIFIED MED I10 ESSENTIAL 01-26-2017 [facility] HYPERTENSIO INC N M542 CERVICALGIA 01-26-2017 [facility] INC K80908 SPONDYLOSIS 01-22-2017 [facility] W/O MEDICAL MYELOPATH/R IMAGING ASS ADICULOPATH Y CERV RGN R202 PARESTHESIA 01-22-2017 [facility] OF SKIN MEDICAL IMAGING ASS [id number] STRAIN 01-22-2017 [facility] P NECK LEVL INIT ENC Z9884 BARIATRIC 01-21-2017 [place] SURGERY [facility] STATUS INC R200 ANESTHESIA 01-20-2017 [place] OF SKIN [facility] INC R51 HEADACHE 01-20-2017 [facility] INC [id number] STRAIN 01-16-2017 [facility] MUSCLE & PHYSICIANS, TENDON UNS PLLC WALL THORAX INIT ENC M797 FIBROMYALGI 01-11-2017 [facility] HOSPITAL U39087 OTHER LONG 01-11-2017 [facility] TERM [facility]ITY CURRENT [facility]OSP[facility] DRUG THERAPY Z882 ALLERGY 01-11-2017 [facility] STATUS TO [facility] S STATUS Z886 ALLERGY 01-11-2017 [facility] ANALGESIC HOSPITAL AGENT STATUS Z888 ALLERGY 01-11-2017 [facility] STATUS OTH COMMUNITY RX MEDS & HOSPITAL BIOLOG [facility] STS H9203 OTALGIA 01-10-2017 [place] BILATERAL [facility] INC I209 ANGINA 01-10-2017 [facility] PECTORIS [facility] UNSPECIFIED INC R071 CHEST PAIN 01-07-2017 [place] BREATHING INTERNAL MED J069 ACUTE UPPER 01-04-2017 [facility] RESPIRATORY INC INFECTION UNSPECIFIED Z720 TOBACCO USE 01-04-2017 [facility] INC Z04744 MUSCLE 12-25-2016 [place] SPASM OF MEM HOS[facility] BACK INC R1013 EPIGASTRIC 12-25-2016 [place] PAIN [place] INTERNAL MED R4702 DYSPHASIA 12-25-2016 [facility] [place] INTERNAL MED B078 OTHER VIRAL 12-23-2016 [facility] W[facility] K219 GASTRO-ESOP 12-23-2016 [facility] H [facility] HEALTH DISEASE [place] WITHOUT ESOPHAGITIS 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 12-23-2016 [facility] ESOPHAGUS [place] K30 FUNCTIONAL 12-23-2016 [facility] DYSPEPSIA HEALTH [place] L218 OTHER 12-23-2016 [facility] SEBORRHEIC DERMATITIS L538 OTHER 12-23-2016 [facility] SPECIFIED ERYTHEMATOU S CONDITIONS R208 OTHER 12-23-2016 [facility] DISTURBANCE S OF SKIN SENSATION R238 OTHER SKIN 12-23-2016 [facility] CHANGES K5903 DRUG 12-17-2016 [place] INDUCED [facility] CONSTIPATIO INC N [id number] ADVERSE 12-17-2016 [place] EFFECT [facility] OTHER INC OPIOIDS INITIAL ENCOUNTER R1319 OTHER 12-13-2016 [place] DYSPHAGIA MEM HOS[facility] INC K910 VOMITING 12-12-2016 [place] FOLLOWING MEM HOS[facility] GASTROINTES INC TINAL SURGERY R609 EDEMA 12-12-2016 [place] UNSPECIFIED MEM HOSP INC E6601 MORBID 12-11-2016 [facility] SEVERE HEALTH OBESITY DUE MONALISA TO EXCESS CALORIES E7800 PURE 12-11-2016 [facility] HYPERCHOLES HEALTH TEROLEMIA MONALISA UNSPECIFIED N393 STRESS 12-11-2016 [facility] INCONTINENC HEALTH E FEMALE MONALISA MALE Z903 ACQUIRED 12-11-2016 [facility] ABSENCE OF HEALTH STOMACH MONALISA Q76552 ENCOUNTER 12-05-2016 [facility] FOR OTHER HEALTH PREPROCEDUR MEDICAL AL GROUP EXAMINATION K210 GASTRO-ESOP 11-22-2016 [facility] HAGEAL PHYSICIANS, REFLUX PLLC DISEASE W/ ESOPHAGITIS K625 HEMORRHAGE 11-19-2016 [place] OF AN[place] AND [place] RECTUM INTERNAL MED M546 PAIN IN 11-08-2016 [facility] THORACIC PHYSICIANS, SPINE PLLC M97968 PAIN IN 10-14-2016 [place] UNSPECIFIED MEDICAL HIP IMAGING ASS M533 SACROCOCCYG 10-14-2016 [facility] EAL MEDICAL DISORDERS IMAGING ASS NEC L384VTK CONTUSION 10-14-2016 [facility] LOWER BACK PHYSICIANS, & PELVIS PLLC INITIAL ENCOUNTER H4160LP UNSPECIFIED 10-14-2016 [place] INJURY MEDICAL LOWER BACK IMAGING ASS INITIAL ENCOUNTER B6450HV UNSPECIFIED 10-14-2016 [place] INJURY OF MEDICAL PELVIS IMAGING ASS INITIAL ENCOUNTER H3581 RETINAL 10-11-2016 [facility] ANG EDEMA R040 EPISTAXIS 10-10-2016 [facility] VALLEY INTERNAL MED E6609 OTHER 10-08-2016 [facility] OBESITY DUE BARIATRIC TO EXCESS SURGICAL CALORIES R109 UNSPECIFIED 10-08-2016 [facility] ABDOMINAL BARIATRIC PAIN SURGICAL J3489 OTHER 10-06-2016 [facility] SPECIFIED PHYSICIANS, DISORDERS PLLC NOSE AND NASAL SINUSES R05 COUGH 10-06-2016 [facility] R0981 NASAL 10-06-2016 [facility] CONGESTION [facility]ICAL IMAGING ASS J320 CHRONIC 10-03-2016 [facility] MAXILL[facility] LLC SINUSITIS M20426 POSTPROCEDU 10-03-2016 [place] [facility] HEMORR [facility] DS INC ORGAN/STRUC FLW DS PROC E785 HYPERLIPIDE 10-02-2016 [facility] UNSPECIFIED MEDICAL G G44970 ENCOUNTER 09-28-2016 [facility] AL CARIOVASCUL AR EXAM Z24690 ENCOUNTER 09-28-2016 [facility] AL LABORATORY EXAM A6004 HERPESVIRAL 09-27-2016 [facility] PHYSICIANS VULVOVAGINI GROUP TIS N760 ACUTE 09-27-2016 [facility] VAGINITIS PHYSICIANS GROUP [id number] CONCUSSION 09-21-2016 [place] WITHOUT LOC [facility] INITIAL INC ENCOUNTER E1972MZ UNSPECIFIED 09-21-2016 [place] INJURY OF MEDICAL HEAD IMAGING ASS INITIAL ENCOUNTER H6903 PATULOUS 09-19-2016 [facility] EUSTACHIAN TUBE BILATERAL L78849 UNSPECIFIED 09-18-2016 [facility] PHYSICIANS OBSTRUCTION GROUP EUSTACHIAN TUBE BILAT J309 ALLERGIC 09-18-2016 [facility] RHINITIS PHYSICIANS UNSPECIFIED GROUP R42 DIZZINESS 09-18-2016 [facility] AND PHYSICIANS GIDDINESS GROUP R590 LOCALIZED 09-04-2016 [facility] P Z6834 BODY MASS 09-04-2016 [facility] INDEX BMI HEALTH 34.0-34.9 MEDICAL ADULT GROUP [...] PLLC R197 DIARRHEA 09-01-2016 [facility] UNSPECIFIED PHYSICIANS, [facility] G64982D ADVERSE 09-01-2016 [facility] P SRI INITIAL ENCOUNTER X63221 UNS PLACE 09-01-2016 [place] UNS NON [facility] P PLACE OF OCCUR EXT R195 OTHER FECAL 08-30-2016 [facility] ABNORMALITI INC ES Z202 CONTACT 08-30-2016 [facility] WITH DISTRICT EXPOSURE HLTH DEPT INFECT JAZZ SEXUAL MODE TRANSMS Z23 ENCOUNTER 08-30-2016 [facility] FOR DISTRICT IMMUNIZATIO HLTH DEPT N JAZZ R5381 OTHER 08-29-2016 [facility] MALAISE PHYSICIANS GROUP R9431 ABNORMAL 08-29-2016 [facility] ELECTROCARD PHYSICIANS IOGRAM GROUP Z8249 FAMILY HX 08-23-2016 [facility] ISCHEMIC PHYSICIANS HRT DZ OTH GROUP DZ CIRC SYSTEM C23911 LYMPHOCYTOP 08-21-2016 [place] ENIA [facility] INC J3089 OTHER 08-21-2016 [facility] RHINITIS [place] J4520 MILD 08-21-2016 [facility] INTERMITTEN PART[facility]ERS OF T ASTHMA [place] UNCOMPLICAT ED S461SZX OTHER 08-21-2016 [facility] ADVERSE [facility] OF FOOD [place] REACTIONS NEC SUBSEQUENT ENC M791 MYALGIA 08-17-2016 [facility] PHYSICIANS, PLLC M898X9 OTHER 08-12-2016 [place] SPECIFIED MEDICAL DISORDERS IMAGING ASS BONE UNSPECIFIED [...] DOG HAIR & DANDER R591 GENERALIZED 08-05-2016 [facility] ENLARGED [facility] LYMPH NODES [facility] P I208 OTHER FORMS 08-02-2016 [facility] OF ANGINA [facility] P U25004 PAIN IN 08-02-2016 [place] RIGHT KNEE MEDICAL IMAGING ASS R55 SYNCOPE AND 08-02-2016 [facility] COLLAPSE PHYSICIANS, PLLC J783CMB UNSPECIFIED 08-02-2016 [place] INJURY OF MEDICAL NECK IMAGING ASS INITIAL ENCOUNTER X1596UJ UNS INJURY 08-02-2016 [place] RT LOWER MEDICAL LEG INITIAL IMAGING ASS ENCOUNTER N281 CYST OF 08-01-2016 [facility] KIDNEY [facility] P S94262 OTHER 07-31-2016 [facility] EQUIPMENT INC R209 UNSPECIFIED 07-29-2016 [facility] PHYSICIANS, DISTURBANCE PLLC S OF SKIN SENSATION K589 IRRITABLE 07-24-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 SYNDROME GROUP WITHOUT DIARRHEA R102 PELVIC AND 07-24-2016 [facility] PERINEAL PHYSICIANS PAIN GROUP N831 CORPUS 07-22-2016 [facility] LUTEUM CYST PHYSICIANS GROUP N920 EXCESS & 07-22-2016 [facility] FREQUENT PHYSICIANS MENSTRUATIO GROUP N W/REGULAR CYCLE [id number] STRAIN UNS 07-22-2016 [facility] MUSCLE FASC PHYSICIANS, TEND THIGH PLLC RT INITIAL ENC Z7251 HIGH RISK 07-22-2016 [facility]UA [facility] L BEHAVIOR INC R12 HEARTBURN 07-18-2016 [facility] H938X9 OTHER 07-17-2016 [facility] SPECIFIED PHYSICIANS DISORDERS GROUP OF EAR UNSPECIFIED EAR J302 OTHER 07-17-2016 [facility] SEASONAL PHYSICIANS ALLERGIC GROUP RHINITIS R1310 DYSPHAGIA 07-13-2016 [place] UNSPECIFIED MEDICAL IMAGING ASS F3994GO LACERATION 07-13-2016 [facility] W/O FOREIGN PHYSICIANS, BODY SCALP PLLC INITIAL ENC X5280FM SPRAIN 07-13-2016 [facility] UNSPECIFIED PHYSICIANS, SITE LT PLLC KNEE INITIAL ENCNTR R6889 OTHER 07-10-2016 [facility] SYMPTOMS HOSPITA AND SIGNS E780 PURE 07-09-2016 [facility] HYPERCHOLES BARIATRIC TEROLEMIA SURGICAL E876 HYPOKALEMIA 07-09-2016 [facility] P Z1231 ENCOUNTER 07-08-2016 [place] SCREENING MEDICAL MAMMO MALIG IMAGING ASS NEOPLASM BREAST H6990 UNSPECIFIED 07-07-2016 [facility] EMERGENCY TUBE PHYS PSC DISORDER UNS EAR H938X3 OTHER 07-07-2016 [facility] SPECIFIED HEALTH DISORDERS [place] OF EAR BILATERAL M5432 SCIATICA 07-07-2016 [facility] LEFT SIDE EMERGENCY PHYS PSC R1010 UPPER 07-05-2016 [facility] ABDOMINAL PHYSICIANS, PAIN PLLC UNSPECIFIED R1084 GENERALIZED 06-29-2016 [facility] ABDOMINAL PHYSICIANS, PAIN PLLC I880 NONSPECIFIC 06-27-2016 [facility] MESENTERIC PHYSICIANS, PLLC LYMPHADENIT IS R100 ACUTE 06-27-2016 [facility] ABDOMEN AMBULANCE SERVICE R1031 RIGHT LOWER 06-26-2016 [facility] N EMERGENCY PAIN PHYS T69350 RIGHT LOWER 06-26-2016 [facility] COMMUNTIY ABDOMINAL HOSPITA TENDERNESS N200 CALCULUS OF 06-24-2016 [facility] KIDNEY [facility]ICAL IMAGING ASS 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 06-11-2016 [...] EXPS TO NONIONIZING RAD R9439 ABNORMAL 04-08-2016 [facility] RESULT OT HEALTH CARDIOVASCU [place] LR FUNCTION STUDY I340 NONRHEUMATI 04-04-2016 [place] [...] [facility] TENDINITIS VALLEY RIGHT INTERNAL SHOULDER MED N00825 ATYP SQ 03-13-2016 [facility], CELLS UNDET LLC SIGNIFICANC E CYTOL SMER CERV Q65304 ENCOUNTER 03-13-2016 [facility], GAS MAIN FITTER HELPER EXAM LLC GENERAL RTN W/ABNORMAL FIND Q71240 ENCOUNTER 03-13-2016 [facility] GAS MAIN FITTER HELPER EXAM PHYSICIANS GENERAL RTN GROUP W/O ABNORMAL FIND Z113 ENCOUNTER 03-13-2016 [facility], SCREEN LLC INFECTIONS SEXL MODE TRANSMISSN M778 OTHER 12-04-2015 [facility] ENTHESOPATH VALLEY IES NOT INTERNAL ELSEWHERE MED CLASSIFIED 69562 UNSPECIFIED 07-11-2015 [facility] TRA VIRAL WARTS 2167 [...] SKIN 7020 ACTINIC 07-11-2015 [facility] TRA KERATOSIS 75470 INFLAMED 07-11-2015 [facility] TRA SEBORRHEIC KERATOSIS V700 ROUTINE 06-27-2015 [facility] [place] DEPT EXAM@[facility] FACL 56601 MORBID 06-20-2015 [facility] OBESITY BARIATRIC SURGICAL 14206 PAIN IN 06-20-2015 [facility] JOINT, SITE MAI HOLDINGS UNSPECIFIED 7823 EDEMA 06-20-2015 [facility] MIA HOLDINGS 93157 OTHER 06-20-2015 [facility] DYSPNEA AND MAI HOLDINGS RESPIRATORY ABNORMALITI ES 7871 HEARTBURN 06-20-2015 [facility] MAI HOLDINGS 7904 NONSPEC 06-20-2015 [facility] ELEVATION BARIATRIC OF LEVELS SURGICAL OF TRANSAMINAS E/LDH V4586 BARIATRIC 06-20-2015 [facility] SURGERY BARIATRIC STATUS SURGICAL V7612 OTHER 06-19-2015 [facility] SCREENING MEDICAL MAMMOGRAM IMAGING ASS 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 MED 2689 UNSPECIFIED 06-12-2015 [facility] VITAMIN D VALLEY DEFICIENCY INTERNAL MED 5718 OTHER 06-12-2015 [facility] CHRONIC [place] NONALCOHOLI INTERNAL C LIVER MED DISEASE 7905 OTHER 06-12-2015 [facility] NONSPECIFIC [place] ABNORMAL INTERNAL SERUM MED ENZYME LEVELS 86782 UNSPEC 05-09-2015 [facility] DISORDERS PHYSICIANS BURSAE&TEND GROUP ONS SHOULDER REGION 7262 OTHER 05-09-2015 [facility] AFFECTIONS PHYSICIANS OF SHOULDER GROUP REGION NEC 43511 OBESITY, 05-04-2015 [facility] UNSPECIFIED OLOGY AND HEPATOL 3674 PRESBYOPIA 04-28-2015 [facility] ANG 63576 CHEST PAIN 04-28-2015 [facility] UNSPECIFIED HEALTH MEDICAL GROUP 04869 ABDOMINAL 04-25-2015 [facility] PAIN, COMMUNTIY UNSPECIFIED HOSPITA SITE 4019 UNSPECIFIED 04-16-2015 [facility] ESSENTIAL [facility] HYPERTENSIO INC N 5990 URINARY 04-16-2015 [facility] TRACT PHYSICIANS, INFECTION [facility] SITE NOT SPECIFIED 7948 NONSPECIFIC 04-16-2015 [facility] ABNORMAL [facility] RESULTS INC LIVR FUNCTION STUDY 5739 UNSPECIFIED 04-14-2015 [facility] [place] DISORDER RADIOLOGY OF LIVER 7906 OTHER 04-14-2015 [facility] ABNORMAL COMMUNTIY BLOOD HOSPITA CHEMISTRY 5939 UNSPECIFIED 04-06-2015 [facility] MEDICAL OF KIDNEY IMAGING ASS AND URETER 7891 HEPATOMEGAL 04-06-2015 [facility] Y OLOGY AND HEPATOL V140 PERSONAL 04-05-2015 [place] HISTORY OF [facility] ALLERGY TO HOSPITAL P PENICILLIN 29189 ABDOMINAL 04-03-2015 ARNOLD HUBER PAIN, GENERALIZED 5758 OTHER 04-01-2015 [place] SPECIFIED [facility] DISORDER OF HOSPITAL P GALLBLADDER 92153 OTHER 04-01-2015 [facility] SPECIFIED MEDICAL DISORDER OF IMAGING ASS KIDNEY AND URETER 63355 ABDOMINAL 04-01-2015 [facility] PA[facility] RIGHT MEDICAL UPPER IMAGING ASS QUADRANT 29434 ABDOMINAL 04-01-2015 [facility] [facility] P 7295 PAIN IN 03-29-2015 [facility] SOFT COMMUNTIY TISSUES OF HOSPITA LIMB V4589 OTHER 03-29-2015 [facility] POSTSURGICA COMMUNTIY L STATUS HOSPITA OTHER 91924 OTHER 03-24-2015 [facility] MALAISE AND COMMUNTIY FATIGUE HOSPITA V6700 FOLLOW-UP 03-21-2015 [facility] [place] EXAMINATION RADIOLOGY FOLLOWING UNSPEC SURGERY 81722 ESOPHAGEAL 03-20-2015 [facility] REFLUX ANESTHESIA GROUP PS 6256 FEMALE 03-20-2015 [facility] STRESS COMMUNTIY INCONTINENC HOSPITA E 41255 PAIN IN 03-20-2015 [facility] JOINT, BARIATRIC MULTIPLE SURGICAL SITES 41844 DIASTASIS 03-20-2015 [facility] OF MUSCLE COMMUNTIY HOSPITA 7892 SPLENOMEGAL 03-20-2015 [facility] Y COMMUNTIY HOSPITA V8543 BODY MASS 03-20-2015 [facility] INDEX COMMUNTIY 50.0-59.9 HOSPITA ADULT 2639 UNSPECIFIED 03-14-2015 [facility] COMMUNTIY PROTEIN-TEA HOSPITA [place]IE MALNUTRITIO N 69800 MIGRAINE 03-07-2015 [facility] UNSP W/O BARIATRIC 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 MIGRAINOSUS 14100 OTHER 03-07-2015 [facility] URINARY BARIATRIC INCONTINENC SURGICAL E 6929 CONTACT 03-06-2015 DANIEL HUBER DERMATITIS& OTHER ECZEMA DUE UNSPEC CAUSE 6822 CELLULITIS 03-02-2015 [facility] P V148 PERSONAL 03-02-2015 [facility] P SPEC MEDICINAL AGTS V571 OTHER 02-22-2015 [facility] PHYSICAL [facility] THERAPY INC 2724 OTHER AND 02-20-2015 [facility] UNSPECIFIED COMMUNTIY HOSPITA HYPERLIPIDE LILIANE 7245 UNSPECIFIED 02-20-2015 [facility] BACKACHE COMMUNTIY HOSPITA V7283 OTHER 02-20-2015 [facility] SPECIFIED COMMUNTIY PRE-OPERATI HOSPITA VE EXAMINATION 2875 UNSPECIFIED 02-15-2015 [facility] P PENIA 7932 NONSPC ABN 02-10-2015 [place] MED[facility] FINDNG SERV RAD&OTH FOUNDATION EXAM OTH INTRTHOR ORGN V7282 PRE-OPERATI 02-10-2015 [place] MEDICAL VE SERV RESPIRATORY FOUNDATION EXAMINATION 5930 NEPHROPTOSI 02-09-2015 [facility] P 7802 SYNCOPE AND 02-01-2015 [facility] MEDICAL G 4139 OTHER AND 01-18-2015 [facility] UNSPECIFIED [facility] ANGINA [facility] P PECTORIS 46328 SHORTNESS 01-18-2015 [facility] MEDICAL IMAGING ASS 07711 OTHER CHEST 01-18-2015 [facility] PAIN [facility] P 16972 OSTEOARTHRO 12-30-2014 DANIEL Reddy INVLV MX SITES BUT [place] SPEC GEN 12443 PAIN IN 11-09-2014 [facility] JOINT, MEDICAL SHOULDER IMAGING ASS REGION V5832 ENCOUNTER 11-09-2014 [place] FOR REMOVAL [facility] P 91651 PILAR CYST 11-02-2014 [facility] 74406 UNSPECIFIED 10-06-2014 [facility] PH[facility] IN CCE & UNS SITE 7840 HEADACHE 10-06-2014 [place] [facility] 43635 ATROPHIC 09-16-2014 [facility] WITHOUT [facility]OSP[facility] MENTION OF HEMORRHAGE 80483 OTHER SPEC 09-16-2014 [facility] WITHOUT MENTION HEMORRHAGE 86227 DYSPHAGIA 09-16-2014 [place] UNSPECIFIED ANESTHESIA GROUP PS 6869 UNSPEC 08-17-2014 [facility] LOCAL INFECTION SKIN&SUBCUT ANEOUS TISSUE V7284 UNSPECIFIED 08-09-2014 [facility] VE EXAMINATION 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 7019 UNSPECIFIED 08-04-2014 [facility] HYPERTROPHI C&ATROPHIC CONDITION SKIN 37808 OTHER 08-04-2014 [facility] SEBORRHEIC KERATOSIS 7851 PALPITATION 08-04-2014 [facility] MEDICAL G V7281 PRE-OPERATI 07-21-2014 [facility] CARDIOV[facility] MEDICAL G LAR EXAMINATION 55747 PAINFUL 07-05-2014 [facility]YCE RESPIRATION V771 SCREENING 05-24-2014 [facility] DIABETES MELLITUS 470 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 4779 ALLERGIC 03-17-2014 [facility] RHINITIS CAUSE UNSPECIFIED 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 [place] POSTCONCUSS [facility] SYNDROME E849.8 E849.8 12-31-2013 [place] ACCIDENT IN [facility] E885.9 E885.9 FALL 12-31-2013 [place] [facility] TRIPPING, OR STUMBLING NEC V14.0 V14.0 12-31-2013 [place] HX-PENICILL [facility] IN ALLERGY Hospital V14.1 V14.1 12-31-2013 [place] HX-ANTIBIOT [facility] ALLERGY Hospital NEC V01.6 V01.6 01-11-2013 [place] VENEREAL [facility] DIS CONTACT Hospital V0481 NEED 01-06-2009 [facility] CENTRAL VACCINATION BANK ACCT &INOCULATIO N FLU 41084 PAIN IN 01-04-2009 [place] [facility] AND ASSOCIATES THIGH 43062 DISPLCMT 01-04-2009 [place] LUMBAR [employer] INTERVERT 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 8460 SPRAIN AND 01-04-2009 [facility] LUMBOSACRAL [employer] 8472 LUMBAR 01-04-2009 [place] [facility] STRAIN INC 28332 CONTUSION 01-04-2009 [employer] BACK [employer] 05006 CONTUSION 01-04-2009 [employer] BUTTOCK [employer] E8490 PLACE OF 01-04-2009 [place] OCCURRENCE, MEDICAL HOME IMAGING ASSOCIATES E8859 FALL FROM 01-04-2009 [place] OTHER MEDICAL SLIPPING IMAGING TRIPPING OR ASSOCIATES [...] 42 ZA 60 17 17 59 PH NM 1 23 AR IN MA E CY [...] 10 7- 1- 00 00 IC ve GA 47 20 20 42 01 17 17 44 PH R 3 26 AR PH MA OS CY 75 MG CA PS UL E NM 65 03 03 20 5 00 CL [...] 1 70 PH CE AR TA MA GA CY NO PH #3 93 7. 8 [...] 17 53 PH E 6 48 AR NM MA OP CY 50 MC G SP [...] 42 ZA 60 17 17 30 PH NM 1 05 AR IN MA E CY [...] 0. MA 8% CY CR EA M NM 59 02 03 10 5 00 RI [...] 17 53 PH E 9 48 AR NM MA OP CY 50 MC G SP [...] 42 ZA 81 17 17 08 PH NM 0 66 AR IN MA E CY [...] 5 25 PH CE AR TA MA GA CY NO PH OF CY 7. NT [...] 12 01 20 10 00 CL Ac NM 46 -2 -2 .0 00 IN ti [...] 12 01 14 7 00 CL Ac NM 46 -1 -2 .0 00 IN ti [...] 17 53 PH E 9 48 AR NM MA OP CY 50 MC G SP RA Y BU 00 02 0 No TA 60 -0 LB 32 7- Lo -A 54 20 ng CE 42 14 er TA 1 GA Ac N- ti CA ve FF 50 [...] 20 20 ZA 70 09 09 PH GA NM 6 AR CH IN MA AE E CY L 10 S MG TA BL ET ME 59 02 02 00 21 6 CL 18 GA Ac TH 74 -1 -2 .0 IN 75 IN ti YL 60 2- 6- 00 IC 10 EY ve NM 00 20 20 ED 10 09 09 PH GA NI 3 AR CH SO MA AE [...] [place] No VACCIN 2008 ON [place] [facility].5 ML DOSAGE IM USE [...] Hgb A1c Bld (12-05-2016 11:40) Comment: The [place] [employer] recommends maintenance of Hemoglobin A1C [...] Procedure DOS Code Location Performer Comment ECG 64951 [facility] ROUTINE 7 PHYSICIAN ECG S GROUP W/LEAST 12 LDS I&R ONLY APPL 48431 [facility]/> AREAS INC INC TRACTION MECHANICA L APPL 95729 [facility]ITY 7 [facility] 1/> AREAS INC INC ELEC STIMJ UNATTENDE D APPLICATI 99845 [facility] ON 7 [facility] MODALITY INC INC 1/> AREAS HOT/COLD PACKS APPLICATI 35786 [facility] ON [facility] MODALITY INC INC 1/> AREAS HOT/COLD PACKS APPL 78022 [facility] MOD[facility]ITY 7 [facility] 1/> AREAS INC INC ELEC STIMJ UNATTENDE D APPL 51166 [facility]ITY [facility] 1/> AREAS INC INC TRACTION MECHANICA L RADEX 01959 [place] [facility] ABDOMEN 7 MEDICAL COMPL IMAGING W/DCBTS&/ ASS ERC VIEWS ECG 53208 [facility] R[facility]INE [facility] ECG INC INC W/LEAST 12 LDS TRCG ONLY W/O I&R APPL 82385 [facility] MODALITY 7 [facility] 1/> AREAS INC INC TRACTION MECHANICA L APPL 70220 [facility] MOD[facility]ITY 7 [facility] 1/> AREAS INC INC ELEC STIMJ UNATTENDE D ECG 01692 [facility] ROUTINE 7 PHYSICIAN ECG S GROUP W/LEAST 12 LDS I&R ONLY APPLICATI 70272 [facility] [facility] ON [facility] MODALITY INC INC 1/> AREAS HOT/COLD PACKS APPLICATI 56445 [facility] [facility] ON [facility] MODALITY INC INC 1/> AREAS HOT/COLD PACKS APPL 61375 [facility] [facility] MODALITY 7 [facility] 1/> AREAS INC INC ELEC STIMJ UNATTENDE D APPL 29365 [facility]/> AREAS INC INC TRACTION MECHANICA L APPL 52258 [facility]ITY [facility] 1/> AREAS INC INC ELEC STIMJ UNATTENDE D ECG 01045 [facility] ROUTINE 7 PHYSICIAN ECG S GROUP W/LEAST 12 LDS I&R ONLY ECG 04783 [facility] ECG INC INC W/LEAST 12 LDS TRCG ONLY W/O I&R APPLICATI 65260 [facility] ON [facility] MODALITY INC INC 1/> AREAS HOT/COLD PACKS THERAPEUT 77962 [facility] IC PX 1/> 7 [facility] AREAS INC INC EACH 15 MIN EXERCISES ORGANIC 14754 [facility] ACID 1 7 [facility] QUANTITAT [place] [address] LAB [facility] PARATHORM 7 [place] [address] [facility] ADAMS SPINAL 7 CANAL ORTHOPAED LUMBAR ICS PSC W/O CONTRAST MATERIAL PREALBUMI 19152 [facility] N 7 [place] [address] [facility] TROPONIN 7 [facility] [place] [address] [facility] MAGNESIUM 7 [facility] CREATINE 32066 [facility] KINASE MB 7 [facility] [place] [address] [facility] FOLIC 7 MA[facility] ACID [facility]INGS HOLDINGS SERUM 25 89966 [facility] HYDROXY 7 MAI MAI INCLUDES HOLDINGS HOLDINGS FRACTIONS IF PERFORMED AMB A0427 [facility] SERVICE 7 AMBULANCE AMBULANCE ALS SERVICE SERVICE EMERGENCY TRANSPORT LEVEL 1 CREATINE 27949 [facility] [facility] KINASE 7 [facility] [place] [address] [facility] LAB [facility] FERRITIN 7 MAI MAI [facility] HOLDINGS GROUND A0425 [facility] MILEAGE 7 AMBULANCE AMBULANCE PER SERVICE SERVICE STATUTE MILE COMPREHEN 45280 [facility] SIVE 7 MAI [facility] METABOLIC [facility] PANEL RADIOLOGI 08179 [facility] C EXAM 7 [facility] CHEST 2 INC INC VIEWS FRONTAL&[place] [address] [facility] TOCOPHERO 7 MAI MAI L ALPHA [facility]INGS VITAMIN E ECG 72473 [facility] ROUTINE 7 [facility] ECG INC INC W/LEAST 12 LDS TRCG ONLY W/O I&[place] [address] LAB [facility] PHOSPHORU 7 MAI MAI [place] [address] LAB [facility] THIAMINE- 7 MAI MA[facility] VITAMIN HOLDINGS [place] B-1 [place] [address] LAB [facility] THYROID 7 MAI MAI STIMULATI HOLDINGS HOLDINGS NG HORMONE TSH ECG 40844 [facility] ROUTINE 7 PHYSICIAN ECG S, PLLC W/LEAST 12 LDS I&[place] [address] LAB [facility] ZINC 7 [place] [address] LAB [facility] IRON 7 MAI MAI HOLDINGS HOLDINGS BLOOD 02278 [facility] COUNT 7 [facility] COMPLETE INC INC AUTO&[place] [address] LAB [facility] LAB [facility] VITAMIN A 7 MAI MAI HOLDINGS HOLDINGS APPL 66047 [facility] [facility] MODALITY 7 [facility] 1/> AREAS INC INC ELEC STIMJ UNATTENDE D APPL 30190 [facility] [facility] MODALITY 7 [facility] 1/> AREAS INC INC TRACTION MECHANICA L APPLICATI 64033 [facility] [facility] ON 7 [facility] MODALITY INC INC 1/> AREAS HOT/COLD PACKS THERAPEUT 12868 [facility] IC PX 1/> 7 [facility] AREAS INC INC EACH 15 MIN EXERCISES RADEX 46888 [facility] DUARTE SPINE 7 [place] LUMBOSACR ORTHOPAED AL 2/[address] [place] [address] [facility] CERVICAL 7 MEDICAL MEDICAL SPINE W/O IMAGING IMAGING CONTRAST ASS ASS MATERIAL ECG 69235 [place] ROUTINE 7 [facility] ECG INC INC W/LEAST 12 LDS TRCG ONLY W/O I&R ECG 38136 [place] [facility] ROUTINE 7 [facility] W/LEAST P 12 LDS I&[place] [address] [place] HEAD/BRAI 7 MEDICAL N W/O IMAGING CONTRAST ASS MATERIAL CYANOCOBA 06573 [place] [facility] LYUBOV 7 [facility] VITAMIN INC INC B-12 25 22918 [facility] HYDROXY 7 [facility] INCLUDES INC [place] [address] [facility] [facility] FOLIC 7 [facility] ACID INC INC SERUM COLLECTIO 68054 [facility] [facility] N VENOUS 7 [facility] BLOOD INC INC VENIPUNCT URE UNCLASSIF J3490 [place] [facility] IED DRUGS 7 [facility] INC INC THERAPEUT 49521 [place] [facility] IC 7 [facility] PROPHYLAC INC INC TIC/DX INJECTION SUBQ/IM UNCLASSIF J3490 [facility] [facility] IED DRUGS 7 [facility] INC INC URNLS DIP 53237 [place] [facility] 7 [facility] STICK/TAB INC INC LET REAGENT AUTO MICROSCOP Y DESTRUCTI 93203 LOUISA JASSO ON BENIGN 7 LESIONS UP [place] 14 [place] [address] [facility] TRACT 7 [facility] W/WO DELAYED IMAGES W/KUB RADEX 24173 [facility] [facility] ABDOMEN 1 7 [facility] INC INC ANTEROPOS TERIOR VIEW BLOOD 45898 [facility] [facility] COUNT 7 [facility] COMPLETE INC INC AUTO&[place] [address] [place] [facility] INFUSION 7 [facility] THERAPY/P INC INC ROPHYLAXI S /DX 1ST TO 1 HR COMPREHEN 91132 [facility] SIVE 7 [facility] METABOLIC INC INC PANEL TX PROC G0238 [facility] [facility] IMPRV 7 [facility] RESP INC INC FUNCT NOT G0237 FCE-FCE 15MIN RAD EXP G9500 [place] [facility] INDICES/E 7 MEDICAL XP TM & IMAGING NUMB ASS FLUORO IMAGES DOC RADEX 92257 [place] [facility] ESOPHAGUS 7 MEDICAL IMAGING ASS LAPS RPR 55980 [facility] SANCHEZ PARAESPHG 7 [facility] HRNA MEDICAL INCL GROUP FUNDPLSTY W/O MESH ANES 17860 [facility] CH[facility]IS INTRAPERI 7 [place] TONEAL ANESTHESI UPPER A ABDOMEN W/LAPS NOS INJECTION J1100 [facility] 7 [facility] DEXAMETHO [facility] SONE SODIUM PHOSPHATE 1 MG INJECTION J1170 [facility] [address] [place] [address] HYDROMORP [facility] KURTIS UP TO 4 MG INJECTION J0330 [facility]ISM 7 [facility] SUCCINYLC [facility] HOLINE CHLORIDE UP TO 20 MG INJECTION J2405 [facility] SI[facility]ISM [address] [place] [address] ONDANSETR [facility] ON HCL PER 1 MG INJECTION J1650 [facility] SI[facility] [address] [place] [address] ENOXAPARI [facility] N SODIUM 10 MG INJECTION J3010 [facility] FENTANYL 7 [facility] CITRATE [facility] 0.1 MG INJECTION J2704 [facility] PROPOFOL 7 [facility] 10 MG [facility] INJECTION J2710 [facility] SIKHISM [address] [place] [address] NEOSTIGMI [facility] NE METHYLSUL FATE UP TO 0.5 MG HEMOGLOBI 24474 [facility] SI[facility] N 7 [facility] GLYCOSYLA [facility] LANEY A1C GLUCOSE 58719 [facility] QUANTITAT 7 [facility] SABIHA BLOOD [facility] XCPT REAGENT STRIP BLOOD 76438 [facility] COUNT 7 [facility] COMPLETE [facility] AUTOMATED COLLECTIO 92276 [facility] N VENOUS 7 [facility] BLOOD [facility] VENIPUNCT URE ECG 89410 [facility] ANNA ROUTINE 7 [facility] ECG MEDICAL W/LEAST GROUP 12 LDS I&R ONLY ECG 50115 [facility] ROUTINE 7 [facility] ECG [facility] W/LEAST 12 LDS TRCG ONLY W/O I&R ECG 40090 [facility] [facility] ROUTINE 6 [facility] ECG INC INC W/LEAST 12 LDS TRCG ONLY W/O I&R RADEX 28693 [facility] ABDOMEN 6 MEDICAL MEDICAL COMPL IMAGING IMAGING W/DCBTS&/ ASS ASS ERC VIEWS ECG 94796 [place] CHAVEZ JR ROUTINE 6 [facility] W/LEAST P 12 LDS I&R ONLY BLOOD 50098 [facility] [facility] COUNT 6 [facility] COMPLETE INC INC AUTO&[place] [address] [facility] [facility] INFUSION 6 [facility] THERAPY/P INC INC ROPHYLAXI S /DX 1ST TO 1 HR THERAPEUT 08850 [facility] [facility] IC 6 [facility] INJECTION INC INC IV PUSH EACH NEW DRUG COMPREHEN 77726 [place] [facility] SIVE 6 [facility] [place] [address] [facility] AMYLASE 6 [facility] INC INC RADIOLOGI 77370 [facility] C EXAM 6 [facility] CHEST 2 INC INC VIEWS FRONTAL&[place] [address] [facility] [facility] LIPASE 6 [facility] INC INC BLOOD 76058 [place] [facility] OCCULT 6 [place] PEROXIDAS INTERNAL E ACTV MED QUAL FECES 1 DETER GLUC BLD 88931 [facility] [facility] GLUC MNTR 6 [facility] DEV INC INC CLEARED FDA SPEC HOME USE THERAPEUT 86475 [facility] [facility] IC 6 [facility] PROPHYLAC INC INC TIC/DX INJECTION SUBQ/[place] [address] SEJAL ABBOTTUTCHER HEAD/BRAI 6 MEDICAL N W/O IMAGING CONTRAST ASS MATERIAL URINE 78129 [place] [facility] 6 [facility] TEST INC INC VISUAL COLOR CMPRSN [facility] RADIOLOGI 54983 [facility] CERR[facility] ALL C 6 MEDICAL EXAMINATI IMAGING ON PELVIS ASS 1/2 VIEWS RADEX 64082 [facility] [facility] SPINE 6 [facility] LUMBOSACR INC INC AL MINIMUM 4 VIEWS RADEX 94548 [facility] ALL SACRUM & 6 MEDICAL COCCYX IMAGING MINIMUM 2 [place] [address] [place] [facility] STREPTOCO 6 [facility] CCUS INC INC GROUP A IAADI 55775 [facility] INFLUENZA 6 [facility] B VIRUS INC INC IAADI 99115 [place] [facility] INFFLUENZ 6 [facility] A A VIRUS INC INC BLOOD 73761 [place] [facility] COUNT 6 [facility] COMPLETE INC INC AUTO&AUTO DIFRNTL WBC CUL BACT 51054 [place] [facility] XCPT 6 [facility] URINE INC INC BLOOD/STO OL AEROBIC ISOL RADIOLOGI 87286 [place] [facility] C EXAM 6 [facility] CHEST 2 INC INC VIEWS FRONTAL&L ATERAL RADEX 75350 SEJAL ABBOTTUTCHER SINUSES 6 MEDICAL ADRIANNA PARANASAL IMAGING COMPL ASS MINIMUM 3 [place] [address] [facility], PICKLESIM SURG 6 [facility] PATHOLOGY GROSS&BRYCE ROSCOPIC EXAM DECALCIFI 52136 [facility], PICKLESIM CATION 6 [facility] ER WADNA PROCEDURE ANESTHESI 64538 COMMUNITY FEEBACK A NOSE & 6 ANESTH ACCESSORY OF THE SINUSES BLUE NOS ECG 37965 [place] [facility] ROUTINE 6 [facility] W/LEAST P 12 LDS I&R ONLY ECG 47971 [place] [facility] ROUTINE 6 [facility] ECG INC INC W/LEAST 12 LDS TRCG ONLY W/O I&R COLLECTIO 66861 [place] [facility] N VENOUS 6 [facility] BLOOD INC INC VENIPUNCT URE BLOOD 95573 [place] [facility] COUNT 6 [facility] COMPLETE INC INC AUTO&AUTO DIFRNTL WBC ANTIBODY 18344 [place] [facility] HERPES 6 [facility] SMPLX INC INC TYPE 1 ANTIBODY 94971 [facility] [facility] VIRUS NOT 6 [facility] INC INC ELSEWHERE SPECIFIFE D COMPREHEN 18360 [facility] [facility] SIVE 6 [facility] [place] [address] [place] HARLEEN MAXILLOFA 6 MEDICAL ADRIANNA CIAL W/O IMAGING CONTRAST ASS MATERIAL URINE 26405 [place] [facility] 6 [facility] TEST INC [place] [address] [place] HEAD/BRAI 6 MEDICAL N W/[place] [address] [place] CERVICAL 6 MEDICAL SPINE W/O IMAGING CONTRAST ASS MATERIAL TYMPANOME 95193 MAEGAN ISSA TRY 6 JARON JARON DISTORT 46479 MAE[facility] ISSA PRODUCT 6 JARON JARON EVOKED OTOACOUST IC EMISNS LIMITD COMPRE 82542 MAEGAN ISSA AUDIOMETR 6 JARON JARON Y THRESHOLD EVAL SP RECOGNIJ PULMONARY 24207 [place] STRESS 6 MEDICAL TESTING SERV SIMPLE FOUNDATIO N GAS 35233 [place] DILUT/WAS 6 MEDICAL MEDICAL HOUT LUNG SERV SERV VOL W/WO FOUNDATIO FOUNDAT[place] DIST[place]ENT&[place] [address] [place] DIFFUSING 6 MEDICAL CAPACITY SERV FOUNDATIO N NONINVASI 90033 [facility] [facility] VE 6 [facility] EAR/PULSE INC INC OXIMETRY MULTIPLE DETER BRNCDILAT 83388 [place] [facility] RSPSE 6 [facility] SPMTRY INC INC PRE&POST- BRNCDILAT ADMN ELIG CLIN G8427 STAMPING RODRIGUEZ TRI ATTSTS 6 GROUND DOC M REC FAMILY OBTD CLINI UPD/REV PT MEDS ECG 32896 [place] [facility] ROUTINE 6 [facility] W/LEAST P 12 LDS I&[place] [address] [place] [facility] TROPONIN 6 [facility] QUANTITAT INC INC SABIHA BLOOD 42989 [place] [facility] COUNT 6 [facility] COMPLETE INC INC AUTO&AUTO DIFRNTL WBC ECG 58717 [place] [facility] ROUTINE 6 [facility] ECG INC INC W/LEAST 12 LDS TRCG ONLY W/O I&R CREATINE 98970 [place] [facility] KINASE 6 [facility] TOTAL INC INC CREATINE 58404 [place] [facility] KINASE MB 6 [facility] FRACTION INC INC ONLY COMPREHEN 41223 [place] [facility] SIVE 6 [facility] METABOLIC INC INC PANEL BLOOD 09575 [place] [facility] OCCULT 6 [facility] PEROXIDAS INC INC E ACTV QUAL FECES 1-3 SPEC SKIN TEST 40222 [facility] DEPT HLTH DEPT SIS JAZZ JAZZ INTRADERM AL BLOOD 80299 [place] [facility] COUNT 6 [facility] COMPLETE INC INC AUTO&AUTO DIFRNTL WBC COLLECTIO 08770 [place] [facility] N VENOUS 6 [facility] BLOOD INC INC VENIPUNCT URE IM ADM 29886 [facility] PRQ ID 6 [facility] DISTRICT SUBQ/IM HLTH DEPT HLTH DEPT NJXS EA JAZZ JAZZ VACCINE SYPHILIS 48313 [facility] TEST 6 [facility] DISTRICT NON-TREPO HLTH DEPT HLTH DEPT NEMAL JAZZ JAZZ ANTIBODY QUAL IM ADM 02424 [facility] PRQ ID 6 [facility] DISTRICT SUBQ/IM HLTH DEPT HLTH DEPT NJXS 1 JAZZ JAZZ VACCINE TDAP 63297 [facility] VACCINE 7 6 [facility] DISTRICT YRS/> IM HLTH DEPT HLTH DEPT JAZZ JAZZ ECG 00717 [facility] ROUTINE 6 [facility] ECG INC INC W/LEAST 12 LDS TRCG ONLY W/O I&R XTRNL ECG 29361 [place] [facility] & 48 HR 6 [facility] RECORDING INC INC EXTERNAL 70732 [place] [facility] ECG 6 [facility] SCANNING INC INC ANALYSIS REPORT BLOOD 46300 [place] [facility] COUNT 6 [facility] COMPLETE INC INC AUTO&AUTO DIFRNTL WBC COMPREHEN 91889 [place] [facility] SIVE 6 [facility] METABOLIC INC INC PANEL CREATINE 74244 [facility] KINASE MB 6 [facility] FRACTION INC INC ONLY CREATINE 83687 [facility] KINASE 6 [facility] [place] [address] [facility] TROPONIN 6 [facility] QUANTITAT INC INC SABIHA XTRNL ECG 03593 [place] BORDENSON 6 [facility] S RHYTHM P W/I&R UP [place] [address] [place] [address] [facility] [facility] TROPONIN 6 [facility] QUANTITAT INC INC SABIHA CREATINE 53368 [place] [facility] KINASE 6 [facility] TOTAL INC INC CREATINE 72472 [place] [facility] KINASE MB 6 [facility] FRACTION INC INC ONLY AMBULANCE A0429 [facility] SERVICE 6 AMBULANCE PATY BLS SERVICE EMERGENCY TRANSPORT GROUND A0425 [facility] MILEAGE 6 AMBULANCE PATY PER SERVICE STATUTE MILE NITRIC 99239 [facility] MAR OXIDE 6 [facility] [place] GAS CO DETERMINA TION BLOOD 43005 [place] [facility] COUNT 6 [facility] COMPLETE INC INC AUTO&AUTO DIFRNTL WBC PROF SVCS 35188 [facility] MAR ALLG 6 [facility] IMMNTX X OF [place] W/PRV CO ALLGIC XTRCS NJXS RHEUMATOI 22896 [place] [facility] D FACTOR 6 [facility] QUANTITAT INC INC SABIHA BLOOD 76467 [place] [facility] COUNT 6 [facility] RETICULOC INC INC YTE AUTOMATED ANTINUCLE 74201 [place] [facility] AR 6 [facility] ANTIBODIE INC INC S SANNA ECG 49380 [place] [facility] ROUTINE 6 [facility] W/LEAST P 12 LDS I&R ONLY SEDIMENTA 14391 [place] [facility] TIKIMBERLY RATE 6 [facility] RBC INC INC NON-AUTOM ATED SPMTRY 19385 [facility] MAR W/VC 6 [facility] EXPIRATOR OF [place] Y ABHI CO W/WO MXML VOL VNTJ ECG 48958 [place] [facility] ROUTINE 6 [facility] ECG INC INC W/LEAST 12 LDS TRCG ONLY W/O I&R BONE 53400 [place] [facility] &/JOINT 6 [facility] IMAGING INC INC WHOLE BODY SEDIMENTA 83016 [place] [facility] TIKIMBERLY RATE 6 [facility] RBC INC INC NON-AUTOM ATED COLLECTIO 24908 [place] [facility] N VENOUS 6 [facility] BLOOD INC INC VENIPUNCT URE BLOOD 45358 [place] [facility] COUNT 6 [facility] RETICULOC INC INC YTE AUTOMATED BLOOD 51139 [place] [facility] COUNT 6 [facility] COMPLETE INC INC AUTO&AUTO DIFRNTL WBC BASIC 29695 [place] [facility] METABOLIC 6 [facility] PANEL INC INC CALCIUM TOTAL TECHNETIU A9503 [place] TC-99M 6 [facility] MEDRONATE INC INC DX UP TO 30 MCI RADIOLOGI 41056 [place] [facility] C EXAM 6 [facility] CHEST 2 INC INC VIEWS FRONTAL&L ATERAL BLOOD 25023 [place] [facility] COUNT 6 [facility] COMPLETE INC INC AUTO&AUTO DIFRNTL WBC ANES 79144 [place] BRITT[place] LOWER 6 ANESTHESI INTESTINE A GROUP [place] [address] [place] [facility] THYROID 6 [facility] STIMULATI [place] [address] [facility] [facility] THYROXINE 6 [facility] TOTAL INC INC COLLECTIO 72049 [facility] [facility] N VENOUS 6 [facility] BLOOD INC INC VENIPUNCT URE GONADOTRO 88783 [facility] [facility] PIN 6 [facility] FOLLICLE INC INC STIMULATI NG HORMONE GONADOTRO 64540 [facility] [facility] PIN 6 [facility] LUTEINIZI INC INC NG HORMONE THYROID 14902 [place] [facility] HORM 6 [facility] UPTK/THYR INC [place] [address] [place] TROPONIN 6 [facility] QUANTITAT INC INC SABIHA RADIOLOGI 34909 [facility] C 6 MEDICAL MEDICAL EXAMINATI IMAGING IMAGING ON CHEST ASS ASS SINGLE VIEW FRONTAL CREATINE 60922 [place] KINASE 6 [facility] TOTAL INC INC CREATINE 17486 [place] KINASE MB 6 [facility] FRACTION INC INC ONLY GROUND [id number] [facility] MILEAGE 6 AMBULANCE KILO PER SERVICE STATUTE MILE AMB [id number] [facility] SERVICE 6 AMBULANCE KILO ALS SERVICE EMERGENCY TRANSPORT LEVEL 1 COMPREHEN 34194 [place] SIVE 6 [facility] METABOLIC INC INC PANEL BLOOD 82327 [place] COUNT 6 [facility] COMPLETE INC INC AUTO&AUTO DIFRNTL WBC COLLECTIO 44302 [place] N VENOUS 6 [facility] BLOOD INC INC VENIPUNCT URE ECG 71091 [place] MATUTE ROUTINE 6 [facility] W/LEAST P 12 LDS I&R ONLY ECG 19589 [place] ROUTINE 6 [facility] ECG INC INC W/LEAST 12 LDS TRCG ONLY W/O I&R PREPJ& 05601 [facility] MAR ALLERGEN 6 [facility] IMMUN[employer] [place] CO 1/[place] [address] [place] INFUSION 6 [facility] THERAPY INC [place] [address] [place] INFUSION 6 [facility] THERAPY/P INC INC ROPHYLAXI S /DX 1ST TO 1 HR COMPREHEN 05845 [place] SIVE 6 [facility] METABOLIC INC INC PANEL CREATINE 86244 [place] KINASE MB 6 [facility] FRACTION INC INC ONLY CREATINE 09894 [place] KINASE 6 [facility] TOTAL INC INC RADIOLOGI 48920 [place] C 6 [facility] EXAMINATI INC [place] [address] [place] [address] [place] HEAD/BRAI 6 [facility] N W/[place] [address] [place] TROPONIN 6 [facility] QUANTITAT INC INC SABIHA ECG 16453 [place] ROUTINE 6 [facility] ECG INC INC W/LEAST 12 LDS TRCG ONLY W/O I&R ECG 22704 [place] GIOVANI ROUTINE 6 [facility] W/LEAST P 12 LDS I&[place] [address] [place] CERVICAL 6 [facility] SPINE W/O INC INC CONTRAST MATERIAL BLOOD 56581 [place] COUNT 6 [facility] COMPLETE INC INC AUTO&AUTO DIFRNTL WBC SPMTRY 09350 [facility] MAR W/VC 6 [facility] [employer] [place] Y ABHI CO W/WO MXML VOL VNTJ PERCUTANE 50253 [facility] MAR OUS TESTS 6 [facility] [place] W/ALLERGE CO LEO EXTRACTS INTRACUTA 61162 [facility] MAR NEOUS 6 [facility] TESTS OF [place] W/ALLERGE CO LEO EXTRACTS NITRIC 22040 [facility] MAR OXIDE 6 [facility] [place] GAS CO DETERMINA TION SPACR A4627 [facility] KRASNOPOL BAG/RESRV 6 EQUIPMENT [facility] OR W/WO INC [place]ASK [place] [address] [facility] HUMPHREY TRANSVAGI 6 [facility]IC[facility] ECG 55660 [place] ROUTINE 6 [facility] ECG INC INC W/LEAST 12 LDS TRCG ONLY W/O I&R ECG 07039 [place] CHAVEZ JR ROUTINE 6 [facility] W/LEAST P 12 LDS I&R ONLY IADNA 54373 [place] NEISSERIA 6 [facility] INC INC GONORRHOE AE AMPLIFIED PROBE TQ IADNA 04529 [place] CHLAMYDIA 6 [facility] INC INC TRACHOMAT [place] [address] [facility] [place] [facility] TRACT 6 RADIOLOGY RHO UPPER W/WO DELAYED IMAGES W/KUB ECG 19202 [place] ROUTINE 6 [facility] ECG INC INC W/LEAST 12 LDS TRCG ONLY W/O I&R FIBRIN 96350 [place] DGRADJ 6 [facility] PRODUCTS INC INC D-DIMER QUAL/SEMI GILBERT ECG 42471 [place] BORDENSHELLY ROUTINE 6 [facility] W/LEAST P 12 LDS I&R ONLY BLOOD 27385 [place] COUNT 6 [facility] COMPLETE INC INC AUTO&AUTO DIFRNTL WBC RADIOLOGI 63591 [place] C EXAM 6 [facility] CHEST 2 INC INC VIEWS FRONTAL&L ATERAL COMPREHEN 30528 [place] [facility] SIVE 6 [facility] [place] [address] [place] TROPONIN 6 [facility] QUANTITAT INC INC SABIHA RADIOLOGI 19149 [place] C 6 MEDICAL EXAMINATI IMAGING ON CHEST ASS SINGLE VIEW FRONTAL ELECTROEN 91764 CINTHYA DONALD CEPHALOGR 6 N AM W/[place] NEUROLOGY AWAKE&[place] [address] [place] INFUSION 6 [facility] THERAPY/P INC INC ROPHYLAXI S /DX 1ST TO 1 HR COMPREHEN 30581 [place] [facility] SIVE 6 [facility] [place] [address] [place] TROPONIN 6 [facility] [place] [address] [place] [facility] LIPASE 6 [facility] INC INC CREATINE 64859 [place] [facility] KINASE MB 6 [facility] [place] [address] [place] AMYLASE 6 [facility] INC INC CREATINE 60684 [place] KINASE 6 [facility] TOTAL INC INC BLOOD 66542 [place] COUNT 6 [facility] COMPLETE INC INC AUTO&AUTO DIFRNTL WBC CULTURE 04897 [place] BACTERIAL 6 [facility] INC INC QUANTTATI VE COLONY COUNT URINE ECG 10159 [place] MATUTE ROUTINE 6 [facility] W/LEAST P 12 LDS I&R ONLY ECG 32892 [place] ROUTINE 6 [facility] ECG INC INC W/LEAST 12 LDS TRCG ONLY W/O I&[place] [address] [facility] ABDOMEN & 6 MEDICAL MEDICAL PELVIS IMAGING IMAGING W/CONTRAS ASS ASS T MATERIAL DRUG TST [id number] [place] [facility] PRESUMP;C 6 [facility] PBL BEING INC INC READ DC OPT OBV ONLY ELECTROEN 89954 [facility] CEPHALOGR 6 N N AM W/REC COMMUNTIY COMMUNTIY [facility] WSY BLOOD 82389 [place] COUNT 6 [facility] COMPLETE INC INC AUTO&AUTO DIFRNTL WBC ECG 28097 [place] CHAVEZ JR ROUTINE 6 [facility] W/LEAST P 12 LDS I&R ONLY ECG 07856 [place] ROUTINE 6 [facility] ECG INC INC W/LEAST 12 LDS TRCG ONLY W/O I&R RADEX 97023 [place] SPINE 6 MEDICAL THORACIC IMAGING 2 VIEWS ASS CREATINE 01204 [place] KINASE 6 [facility] TOTAL INC INC CREATINE 14735 [place] KINASE MB 6 [facility] [place] [address] [place] [facility] TROPONIN 6 [facility] QUANTITAT INC INC SABIHA RADIOLOGI 31118 [place] C 6 MEDICAL EXAMINATI IMAGING ON CHEST ASS SINGLE VIEW FRONTAL RADEX 30030 [place] SPINE 6 [facility] THORACIC INC INC 3 VIEWS RADIOLOGI 86992 [place] C EXAM 6 [facility] CHEST 2 INC INC VIEWS FRONTAL&L ATERAL COMPREHEN 15854 [place] SIVE 6 [facility] METABOLIC INC INC PANEL URINE 02522 [place] [facility] 6 [facility] TEST INC INC VISUAL COLOR CMPRSN METHS COMPREHEN 08587 [place] SIVE 6 [facility] [address] [place] FERRITIN 6 [place] [address] [place] MAGNESIUM 6 [facility] INC INC 25 78092 [place] HYDROXY 6 [facility] INCLUDES INC INC FRACTIONS IF PERFORMED CYANOCOBA 07459 [place] LYUBOV 6 [facility] VITAMIN INC INC B-12 [place] [address] [place] THYROID 6 [facility] STIMULATI INC INC NG HORMONE TSH COMPUTER- 48839 [place] AIDED 6 [facility] DETECTION INC INC SCREENING MAMMOGRAP HY COLLECTIO 49744 [place] N VENOUS 6 [facility] BLOOD INC INC VENIPUNCT URE SCREENING G0202 [place] 6 [facility] MAMMOGRAP INC INC HY WILBERT INCL CAD WHEN PERFORMD BLOOD 36966 [place] COUNT 6 [facility] COMPLETE INC INC AUTO&[place] [address] [place] LACTATE 6 [facility] INC INC BLOOD 41898 [place] COUNT 6 [facility] COMPLETE INC INC AUTO&AUTO DIFRNTL WBC RADEX ABD 60259 [place] COMPL 6 [facility] AQT ABD INC INC W/S/E/D VIEWS 1 VIEW CH ECG 81226 [place] ROUTINE 6 [facility] ECG INC INC W/LEAST 12 LDS TRCG ONLY W/O I&R ECG 57069 [place] CHAVEZ JR ROUTINE 6 [facility] ECG HOSPITAL W/LEAST P 12 LDS I&[place] [address] [place] TROPONIN 6 [facility] QUANTITAT INC INC SABIHA COMPREHEN 96480 [place] SIVE 6 [facility] METABOLIC INC INC PANEL URNLS DIP 41788 [place] [facility] 6 [facility] STICK/TAB INC [place] [address] [place] INFUSION 6 [facility] THERAPY/P INC INC ROPHYLAXI S /DX 1ST TO 1 [place] [address] [place] INFUSION 6 [facility] THERAPY/P INC INC ROPHYLAXI S /DX 1ST TO 1 HR URNLS DIP 27956 [place] [facility] 6 [facility] STICK/TAB INC INC LET REAGENT AUTO MICROSCOP Y URINE 83464 [place] [facility] 6 [facility] TEST INC INC VISUAL COLOR CMPRSN METHS RADIOLOGI 55465 [place] C EXAM 6 MEDICAL CHEST 2 IMAGING VIEWS ASS FRONTAL&L ATERAL COMPREHEN 08798 [place] SIVE 6 [facility] [address] [place] TROPONIN 6 [facility] QUANTITAT INC INC SABIHA CREATINE 69547 [place] KINASE 6 [facility] TOTAL INC INC CREATINE 01861 [place] KINASE MB 6 [facility] FRACTION INC INC ONLY ECG 16365 [place] MATUTE ROUTINE 6 [facility] W/LEAST P 12 LDS I&R ONLY ECG 87347 [place] ROUTINE 6 [facility] ECG INC INC W/LEAST 12 LDS TRCG ONLY W/O I&R CULTURE 93038 [place] BACTERIAL 6 [facility] INC INC QUANTTATI VE COLONY COUNT URINE BLOOD 98907 [place] COUNT 6 [facility] COMPLETE INC INC AUTO&AUTO DIFRNTL WBC BLOOD 62548 [place] COUNT 6 [facility] COMPLETE INC INC AUTO&AUTO DIFRNTL WBC RADEX ABD 20602 [place] COMPL 6 [facility] AQT ABD INC INC W/S/E/D VIEWS 1 [place] [address] [place] LIPASE 6 [facility] INC INC AMB A0427 [facility] 6 AMBULANCE AMBULANCE ALS SERVICE SERVICE EMERGENCY TRANSPORT LEVEL 1 COMPREHEN 70107 [place] SIVE 6 [facility] METABOLIC INC INC PANEL GROUND A0425 [facility] AM[facility]UL[facility] PER SERVICE SERVICE STATUTE MILE COMPREHEN 90010 [facility] SIVE 6 N N METABOLIC COMMUNTIY COMMUNTIY PANEL HOSPITA HOSPITA MRI BRAIN 85535 [facility] [place] [facility]OST[facility] BRAIN 6 RADIOLOGY LANA STEM W/O CONTRAST MATERIAL THER 30365 [facility] PROPH/DX 6 N N NJX IV COMMUNTIY COMMUNTIY PUSH HOSPITA HOSPITA SINGLE/1S T SBST/DRUG COLLECTIO 11371 [facility] N VENOUS 6 N N BLOOD COMMUNTIY COMMUNTIY VENIPUNCT HOSPITA HOSPITA URE BLOOD 82936 [facility] COUNT 6 N N COMPLETE COMMUNTIY COMMUNTIY AUTO&AUT[place] [address] [facility] INFUSION 6 N N HYDRATION COMMUNTIY COMMUNTIY EACH HOSPITA HOSPITA ADDITIONA L HOUR ECG 60721 [place] ROUTINE 6 [facility] W/LEAST P 12 LDS I&[place] [address] [place] ABDOMEN & 6 MEDICAL PELVIS IMAGING W/O ASS CONTRAST MATERIAL RADIOLOGI 83887 [place] C 6 MEDICAL EXAMINATI IMAGING [place] [address] [place] ALL HEAD/BRAI 6 MEDICAL N W/O IMAGING CONTRAST ASS MATERIAL AMB A0427 [facility] SERVICE 6 AMBULANCE AMBULANCE ALS SERVICE SERVICE EMERGENCY TRANSPORT LEVEL 1 GROUND A0425 [facility] AMBULANCE PER SERVICE SERVICE STATUTE MILE MANUAL 39649 [facility] THERAPY 6 TQS 1/> REGIONS EACH 15 MINUTES CHIROPRAC 34796 [facility] TIC 6 MANIPULAT [place] SPINAL 3-4 REGIONS THERAPEUT 88886 [facility] IC PX 1/> 6 AREAS EACH 15 MIN EXERCISES CHIROPRAC 92385 [facility] TIC 6 MANIPLTV TX EXTRASPIN AL 1/> REGION THERAPEUT 07230 [facility] IC PX 1/> 6 AREAS EACH 15 MIN EXERCISES MANUAL 46767 [facility] THERAPY 6 TQS 1/> REGIONS EACH 15 MINUTES MANUAL 20409 [facility] THERAPY 6 MATTI MATTI TQS 1/> REGIONS EACH 15 MINUTES CHIROPRAC 42639 [facility] TIC 6 MATTI MATTI MANIPULAT SABIHA TX SPINAL 3-4 REGIONS THERAPEUT 08504 [facility] IC PX 1/> 6 MATTI MATTI AREAS EACH 15 MIN EXERCISES CHIROPRAC 90038 [facility] TIC 6 MATTI MATTI MANIPLTV TX EXTRASPIN AL 1/> REGION BX SKIN 55442 SCALF LEI SCALF LEI SUBCUTANE 6 OUS&/MUCO US MEMBRANE 1 LESION COMPREHEN 40246 [facility] SIVE 6 DIAGNOSTI DIAGNOSTI METABOLIC CS CS PANEL IMHISTOCH 71589 SCALF LEI SCALF LEI EM/CYTCHM 6 1ST [place] [address] SCAL[facility] LEI SCALF LEI SURG 6 PATHOLOGY GROSS&BRYCE ROSCOPIC EXAM COMPREHEN 89997 [place] [facility] SIVE 6 [facility] [place] [address] [place] [facility] AMYLASE 6 [facility] INC INC THERAPEUT 68020 [place] [facility] IC 6 [facility] INJECTION INC [place] [address] [place] INFUSION 6 [facility] THERAPY/P INC INC ROPHYLAXI S /DX 1ST TO 1 HR GLUC BLD 75318 [place] GLUC MNTR 6 [facility] DEV INC INC CLEARED FDA SPEC HOME USE URNLS DIP 51421 [place] [facility] 6 [facility] STICK/TAB INC INC [place] [address] [place] LIPASE 6 [place] [address] [place] TROPONIN 6 [facility] QUANTITAT INC INC SABIHA UNCLASSIF J3490 [place] IED DRUGS 6 [facility] INC INC CREATINE 96487 [place] KINASE MB 6 [facility] FRACTION INC INC ONLY CREATINE 03477 [place] KINASE 6 [facility] TOTAL INC INC ECG 68241 [place] ROUTINE 6 [facility] ECG INC INC W/LEAST 12 LDS TRCG ONLY W/O I&R BLOOD 40997 [place] COUNT 6 [facility] COMPLETE INC INC AUTO&AUTO DIFRNTL WBC ECG 34944 [place] GIOVANI ROUTINE 6 [facility] W/LEAST P 12 LDS I&R ONLY CULTURE 69290 [place] BACTERIAL 6 [facility] INC INC QUANTTATI VE COLONY COUNT URINE INJECTION J2405 [place] 6 [facility] H[facility] ONDANSETR INC INC ON HCL PER 1 MG BLOOD 47272 [facility]ISM COUNT 6 [facility] COMPLETE [facility] AUTOMATED COLLECTIO 62808 [facility] SIKHISM N VENOUS 6 [facility] BLOOD [facility] VENIPUNCT URE INJECTION J1644 [facility] SIKHISM HEPARIN 6 [facility] SODIUM [facility] PER 1000 UNITS ECG 75883 [facility] ANDRES ROUTINE 6 HEALTH IV HEN ECG MEDICAL W/LEAST GROUP 12 LDS I&R ONLY CATH PLMT 19265 [facility] SIKHISM L HRT & 6 [facility] ARTS [facility] W/NJX & ANGIO IMG S&I GONADOTRO 77819 [facility] SIKHISM PIN 6 [facility] CHORIONIC [facility] QUANTITAT SABIHA INJECTION J3010 [facility] SIKHISM FENTANYL 6 [facility] CITRATE [facility] 0.1 MG LIPID 16648 [facility] SIKHISM PANEL 6 [facility] BASIC 52834 SIKHISM SIKHISM METABOLIC 6 [facility] HEALTH PANEL [facility] CALCIUM TOTAL HEMOGLOBI 74134 SIKHISM SIKHISM N 6 [facility] HEALTH GLYCOSYLA [facility] LANEY A1C LOCM Q9967 SIKHISM SIKHISM [phone] 6 [facility] HEALTH MG/ML [facility] IODINE CONCENTRA TION PER ML CV STRS 15306 [place] [facility] TST 6 [facility]&/OR [facility] RX CONT P P ECG I&R ONLY UNCLASSIF J3490 [place] IED DRUGS 6 [facility] INC INC ECHO 77908 [place] TTHRC R-T 6 [facility] 2D INC INC W/WOM-MOD E COMPL SPEC&COLR D MYOCARDIA 83413 [place] Ortega SPECT 6 [facility] MULTIPLE INC INC STUDIES TECHNETIU A9500 [place] Montenegro TC-99M 6 [facility] SESTAMIBI INC INC DX PER STUDY DOSE CV STRS 03671 [place] TST 6 [facility]&/OR [facility] RX CONT P P ECG W/O I&R CV STRS 87752 [place] TST 6 [facility] XERS&/OR INC INC RX CONT ECG TRCG ONLY ECG 31427 [place] ROUTINE 6 [facility] ECG INC INC W/LEAST 12 LDS TRCG ONLY W/O I&R ECG 81203 [place] CHAVEZ JR ROUTINE 6 [facility] W/LEAST P 12 LDS I&R ONLY BLOOD 12209 [place] COUNT 6 [facility] COMPLETE INC INC AUTO&AUTO DIFRNTL WBC CREATINE 54291 [place] KINASE 6 [facility] TOTAL INC INC CREATINE 91115 [place] KINASE MB 6 [facility] [place] [address] [place] [facility] TROPONIN 6 [facility] QUANTITAT INC INC SABIHA RADIOLOGI 89464 [place] C 6 [facility] EXAMINATI INC INC ON CHEST SINGLE VIEW FRONTAL COMPREHEN 71353 [place] SIVE 6 [facility]OS[facility] METABOLIC INC INC PANEL OPHTH 54413 [facility] 6 XM&EVAL COMPRHNSV ESTAB PT 1/> [place] [address] LAB MAHESH LAB MAHESH VITAMIN A 6 MAI MA[facility] COMPREHEN 91752 LAB [facility] LAB MAHESH SIVE 6 [facility] METABOLIC [place] [address] LAB [facility] LAB MA[facility]ESH PARATHORM 6 [place] [address] LAB [facility] LAB MA[facility]ESH MAGNESIUM 6 [facility] HOLDINGS ORGANIC 17990 LAB [facility] LAB [facility]ESH ACID 1 6 [facility] QUANTITAT HOLDINGS HOLDINGS SABIHA PREALBUMI 31024 [facility] LAB MAHESH N 6 [facility]I HOLDINGS HOLDINGS 25 87026 LAB [facility] LAB [facility]ESH HYDROXY 6 [facility] INCLUDES [facility]INGS [place] [address] LAB [facility] LAB MA[facility] FOLIC 6 MAI MAI [place] [address] LAB [facility] LAB MAHESH FERRITIN 6 MAI MAI HOLDINGS HOLDINGS BLOOD 64494 LAB [facility] LAB MAHESH COUNT 6 MAI MAI COMPLETE HOLDINGS HOLDINGS AUTO&[place] [address] [facility] LAB MAHESH IRON 6 [place] [address] LAB [facility] LAB MAHESH ZINC 6 [place] [address] LAB MAHESH LAB MAHESH PHOSPHORU 6 MAI MA[place] [address] LAB MAHESH LAB MAHESH THIAMINE- 6 MAI MAI VITAMIN HOLDINGS HOLDINGS B-1 [place] [address] LAB MAHESH LAB MAHESH TOCOPHERO 6 MAI MAI L ALPHA [place] [address] [place] [facility] THYROID 6 [facility] STIMULATI INC INC NG HORMONE TSH BLOOD 12789 [place] [facility] COUNT 6 [facility] COMPLETE INC INC AUTO&AUTO DIFRNTL WBC COLLECTIO 47878 [place] [facility] N VENOUS 6 [facility] [place] [address] [place] VAUGHN FERRITIN 6 MEM HOSP TERA INC 25 24380 [place] [facility] HYDROXY 6 [facility] INCLUDES INC [place] [address] [place] [facility] IRON 6 [facility] INC INC COMPREHEN 35060 [place] [facility] SIVE 6 [facility] METABOLIC INC INC PANEL IRON 64516 [place] [facility] BINDING 6 [facility] CAPACITY INC INC IADNA 66120 [facility]LAM[facility] TRACHOMAT IS AMPLIFIED PROBE TQ IADNA 89752 [facility] HUMAN [facility] PAPILLOMA VIRUS HIGH-RISK TYPES CYTP 08713 [facility] CERVICAL/ 6 [facility] VAGINAL REQ INTERP PHYSICIAN CYTP C/V 75956 [facility] AUTO THIN [facility] LYR PREPJ SCR MNL RESCR PHYS IADNA 42696 [facility], [facility] NEISSERIA [facility] GONORRHO[place] [address] [place] THYROID 6 [facility] STIMULATI INC INC NG HORMONE TSH COLLECTIO 44851 [place] [facility] N VENOUS 6 [facility] BLOOD INC INC VENIPUNCT URE BASIC 62686 [place] [facility] METABOLIC 6 [facility] PANEL INC INC CALCIUM TOTAL PREALBUMI 85605 [facility] [place] N 6 [facility] INC INC COMPREHEN 04826 [place] SIVE 6 [facility] METABOLIC INC INC PANEL ORGANIC 22308 [place] ACID 1 6 [facility] [address] [place] IRON 6 [place] [address] [place] [facility] FERRITIN 6 [facility] INC INC COLLECTIO 41317 [place] N VENOUS 6 [facility] BLOOD INC INC VENIPUNCT URE BLOOD 24631 [place] [facility] COUNT 6 [facility] COMPLETE INC INC AUTO&[place] [address] [place] [facility] THIAMINE- 6 [facility] VITAMIN INC INC B-1 [place] [address] LAB MAHESH LAB MAHESH THIAMINE- 5 [facility] VITAMIN [facility]INGS HOLDINGS B-[address] [place] [address] LAB MAHESH LAB MAHESH FERRITIN 5 MAI MAI HOLDINGS HOLDINGS PREALBUMI 71389 [facility] LAB MAHESH N 5 [place] [address] LAB MAHESH LAB MAHESH FOLIC 5 MAI MAI ACID HOLDINGS HOLDINGS SERUM ORGANIC 19696 LAB MAHESH LAB MAHESH ACID 1 5 [facility] QUANTITAT [place] [address] LAB MAHESH LAB MAHESH IRON 5 [facility] HOLDINGS HOLDINGS GENERAL 53834 LAB MAHSEH LAB MAHESH HEALTH 5 [facility] PANEL HOLDINGS HOLDINGS DESTRUCTI 97042 ATKINS ATKINS ON BENIGN 5 TRA TRA LESIONS UP TO 14 BIOPSY 65231 ATKINS ATKINS SKIN 5 TRA TRA SUBQ&/MUC OUS MEMBRANE EA ADDL LESN BX SKIN 96565 ATKINS ATKINS SUBCUTANE 5 TRA TRA OUS&/MUCO US MEMBRANE 1 LESION DESTRUCTI 96756 ATKINS ATKINS ON 5 TRA TRA PREMALIGN AN[place] 1ST [place] [address] SCALF LEI SCALF LEI SURG 5 PATHOLOGY GROSS&BRYCE ROSCOPIC EXAM BLOOD 65586 LAB [facility] LAB MAHESH COUNT 5 [facility] COMPLETE HOLDINGS HOLDINGS AUTO&[place] [address] LAB MAHESH LAB MAHESH THIAMINE- 5 [facility] VITAMIN HOLDINGS HOLDINGS B-[address] [place] [address] LAB MAHESH LAB MAHESH FOLIC 5 [facility] ACID HOLDINGS HOLDINGS SERUM PREALBUMI 33475 LAB MAHESH LAB MAHESH N 5 [place] [address] LAB MAHESH LAB MAHESH IRON 5 MAI MAI HOLDINGS HOLDINGS ORGANIC 01619 LAB MAHESH LAB MAHESH ACID 1 5 [facility] QUANTITAT HOLDINGS HOLDINGS SABIHA COMPREHEN 19372 LAB MAHESH LAB MAHESH SIVE 5 [facility] METABOLIC HOLDINGS HOLDINGS PANEL COMPUTER- 65611 [place] [facility] AIDED 5 [facility] DETECTION INC INC SCREENING MAMMOGRAP HY SCREENING G0202 [place] [facility] 5 [facility] MAMMOGRAP INC INC HY WILBERT INCL CAD WHEN PERFORMD COLLECTIO 39885 [facility] [place] N VENOUS 5 [facility] BLOOD INC INC VENIPUNCT URE BLOOD 43495 [place] COUNT 5 [facility] COMPLETE INC INC AUTO&[place] [address] [place] [facility] THYROID 5 [facility] STIMULATI INC INC NG HORMONE TSH COMPREHEN 95268 [place] SIVE 5 [facility] METABOLIC INC INC PANEL LIPID 95861 [place] PANEL 5 [facility] INC INC HEMOGLOBI 52984 [place] N 5 [facility] GLYCOSY[place] [address] [place] [facility] GLUTAMYLT 5 [facility] RASE INC INC GAMMA 25 78506 [place] HYDROXY 5 [facility] INCLUDES INC INC FRACTIONS IF PERFORMED CYANOCOBA 73810 [place] LYUBOV 5 [facility] VITAMIN INC INC B-12 OPHTH 72020 [facility] MEDICAL 5 ANG ANG XM&EVAL COMPRHNSV ESTAB PT 1/> [place] [address] [facility] [place] SCALF HUBER ABDOMEN & 5 RADIOLOGY PELVIS W/[place] [address] [place] ALL ABDOMEN & 5 MEDICAL PELVIS IMAGING W/CONTRAS ASS T MATERIAL BLOOD 89723 [place] [facility] COUNT 5 [facility] COMPLETE INC INC AUTO&AUTO DIFRNTL WBC CULTURE 49056 [place] [facility] BACTERIAL 5 [facility] INC INC [place]TT[place] [address] [place] [facility] LIPASE 5 [facility] INC INC URNLS DIP 57302 [place] [facility] 5 [facility] STICK/TAB INC INC LET REAGENT AUTO MICROSCOP Y URINE 05169 [place] [facility] 5 [facility] TEST INC INC VISUAL COLOR CMPRSN METHS COMPREHEN 52689 [facility] SIVE 5 [facility] [place] [address] [facility] AMYLASE 5 [place] [address] [facility] AMYLASE 5 N N COMMUNTIY COMMUNTIY HOSPITA HOSPITA PREALBUMI 38436 [facility] N 5 N N COMMUNTIY COMMUNTIY HOSPITA HOSPITA COMPREHEN 97796 [facility] SIVE 5 N N METABOLIC COMMUNTIY COMMUNTIY PANEL HOSPITA HOSPITA ORGANIC 40065 [facility] ACID 1 5 N N QUANTITAT COMMUNTIY COMMUNTI[place] [address] [facility] MAGNESIUM 5 N N COMMUNTI[place] [address] [facility] PARATHORM 5 N N ONE COMMUNTI[place] [address] [facility] LIPASE 5 N N COMMUNTIY COMMUNTIY HOSPITA HOSPITA 25 98825 [facility] HYDROXY 5 N N INCLUDES COMMUNTIY COMMUNTIY [place]RACTIONS [place] [address] [facility] FOLIC 5 N N ACID COMMUNTIY COMMUNTIY SERUM HOSPITA HOSPITA COLLECTIO 94991 [facility] N VENOUS 5 N N BLOOD COMMUNTIY COMMUNTIY VENIPUNCT HOSPITA HOSPITA URE BLOOD 61775 [facility] COUNT 5 N N COMPLETE COMMUNTIY COMMUNTIY AUTO&AUTO [place] [address] [facility] ZINC 5 N N COMMUNTIY COMMUNTIY HOSPITA HOSPITA [address] [facility] [place] [facility] ABDOMINAL 5 RADIOLOGY RHO REAL [place] W/[place] [address] [facility] VITAMIN A 5 N N COMMUNTIY [place] [address] [facility] TOCOPHERO 5 N N L ALPHA COMMUNTIY COMMUNTIY [place] [address] [facility] THIAMINE- 5 N N VITAMIN COMMUNTIY COMMUNTIY B-[place] [address] [facility] PHOSPHORU 5 N N S COMMUNTIY COMMUNTIY INORGANIC HOSPITA HOSPITA PROTHROMB 05241 [facility] IN TIME 5 N [place] [address] [facility] RETROPERI 5 [facility] TONEAL INC [place] REAL TIME W/[place] [address] SEJAL ENGLE RETROPERI 5 MEDICAL TONEAL IMAGING REAL TIME ASS W/IMAGE LIMITED HEPATITIS 64033 [facility] B CORE 5 N N ANTIBODY COMMUNTIY COMMUNTIY HBCAB HOSPITA HOSPITA TOTAL HEPATITIS 96013 [facility] B SURF 5 N N ANTIBODY COMMUNTIY COMM[place]TI[place] [address] [facility] HEPATITIS 5 N N B COMMUNTIY COMMUNTIY SURFACE HOSPITA HOSPITA ANTIGEN BLOOD 93250 [facility] COUNT 5 N N COMPLETE COMMUNTIY COMMUNTIY AUTOMATED HOSPITA HOSPITA HEPATITIS 30439 [facility] C 5 N N ANTIBODY COMMUNTIY COMMUNTIY HOSPITA HOSPITA COLLECTIO 61341 [facility] N VENOUS 5 N N BLOOD COMMUNTIY COMMUNTIY VENIPUNCT HOSPITA HOSPITA URE ANTINUCLE 32648 [facility] AR 5 N N ANTIBODIE COMMUNTIY COMMUNTIY S SANNA HOSPITA HOSPITA IMMUNOASS 87630 [facility] AY 5 N N ANALYTE COMMUNTIY COMMUNTIY QUAL/SEMI HOSPITA [place] [address] [facility] FERRITIN 5 N N COMMUNTI[place] [address] [facility] IRON 5 N N COMMUNTIY COMMUNTIY HOSPITA HOSPITA COMPREHEN 46325 [facility] SIVE 5 N N METABOLIC COMMUNTIY COMMUNTIY PANEL HOSPITA HOSPITA ALPHA-1-A 74360 [facility] NTITRYPSI 5 N N N TOTAL COMMUNTIY [place] [address] [facility] GAMMAGLOB 5 N N ULIN IGA COMMUNTIY COMMUNTIY IGD IGG HOSPITA HOSPITA IGM EACH IRON 39291 [facility] BINDING 5 N N CAPACITY [place] [address] [facility] ABDOMEN & 5 MEDICAL PELVIS IMAGING W/O ASS CONTRAST MATERIAL DUP-SCAN 22762 [facility] XTR VEINS 5 N N COMPLETE COMMUNTIY COMMUNTIY HOSPITA HOSPITA BILATERAL STUDY COLLECTIO 91700 [facility] N VENOUS 5 N N BLOOD COMMUNTIY COMMUNTIY VENIPUNCT HOSPITA HOSPITA URE BLOOD 41859 [facility] COUNT 5 N N COMPLETE COMMUNTIY COMMUNTIY AUTO&AUTO HOSPITA HOSPITA DIFRNTL WBC COMPREHEN [address] [facility] SIVE 5 N N METABOLIC COMMUNTIY COMM[place]TI[place] [address] [facility] AMYLASE 5 N N COMMUNTI[place] [address] [facility] LIPASE 5 N N COMMUNTI[place] [address] [facility] [place] SCALF HUBER TRACT 5 RADIOLOGY UPPER W/WO DELAYED IMAGES W/KUB LAPAROSCO 4382 [facility] PIC 5 N N VERTICAL COMMUNTIY COMMUNTIY SLEEVE HOSPITA HOSPITA GASTRECTO MY OTHER 4513 [facility] ENDOSCOPY 5 N N OF SMALL COMMUNTIY COMMUNTIY HOSPITA HOSPITA INTESTINE LAPS 78007 [facility] SANCHEZ MICHELLE GSTRC 5 RSTRICTIV BARIATRIC PX SURGICAL LONGITUDI NAL GASTRECTO MY ANES IPR 53145 [place] BRITTNY ANT UPPER 5 ANESTHESI ABDOMEN A GROUP LAPS PS GASTRIC RSTCV MO APPL 26436 [place] [facility] MODALITY 5 [facility] 1/> AREAS INC INC ELEC STIMJ UNATTENDE D APPL 89776 [place] MODALITY 5 [facility] 1/> AREAS INC INC ULTRASOUN D EA 15 MIN APPLICATI 19541 [place] ON 5 [facility] MODALITY INC INC 1/> AREAS HOT/COLD PACKS COMPREHEN 36386 [facility] SIVE 5 N N METABOLIC COMMUNTIY COMMUNTIY PANEL HOSPITA HOSPITA GONADOTRO 77805 [facility] PIN 5 N N CHORIONIC COMMUNTIY COMMUNTIY HOSPITA HOSPITA QUALITATI VE BLOOD 80218 [facility] COUNT 5 N N COMPLETE COMMUNTIY COMMUNTIY AUTOMATED HOSPITA HOSPITA COLLECTIO 65257 [facility] N VENOUS 5 N N BLOOD COMMUNTIY COMMUNTIY VENIPUNCT HOSPITA HOSPITA URE DUP-SCAN 28263 [place] [facility] XTR VEINS 5 [facility] COMPLETE INC INC BILATERAL STUDY APPL 54360 [place] [facility] MODALITY 5 [facility] 1/> AREAS INC INC ELEC STIMJ UNATTENDE D APPLICATI 50054 [place] ON 5 [facility] MODALITY INC INC 1/> AREAS HOT/COLD PACKS APPL 64740 [place] MODALITY 5 [facility] 1/> AREAS INC INC ULTRASOUN D EA 15 MIN THERAPEUT 42114 [place] [facility] IC PX 1/> 5 [facility] AREAS INC INC EACH 15 MIN EXERCISES SUSCEPTIB 68470 [place] [facility] LTY STDY 5 [facility] ANTIMICRB INC INC IAL MICRO/AGA R DILUTJ CUL BACT 79797 [place] [facility] XCPT 5 [facility] URINE INC INC BLOOD/STO OL AEROBIC ISOL APPL 60798 [place] [facility] MODALITY 5 [facility] 1/> AREAS INC INC ELEC STIMJ UNATTENDE D THERAPEUT 96352 [place] [facility] IC PX 1/> 5 [facility] AREAS INC INC EACH 15 MIN EXERCISES APPL 32155 [place] MODALITY 5 [facility] 1/> AREAS INC INC ULTRASOUN D EA 15 MIN APPLICATI 60044 [place] ON 5 [facility] MODALITY INC INC 1/> AREAS HOT/COLD PACKS APPLICATI 92925 [place] [facility] ON 5 [facility] MODALITY INC INC 1/> AREAS HOT/COLD PACKS APPL 83592 [place] [facility] MODALITY 5 [facility] 1/> AREAS INC INC ULTRASOUN D EA 15 MIN APPL 24211 [place] [facility] MODALITY 5 [facility] 1/> AREAS INC INC IONTOPHOR ESIS EA 15 MIN APPL 59665 [place] [facility] MODALITY 5 [facility] 1/> AREAS INC INC ELEC STIMJ UNATTENDE D APPL 26037 [place] MODALITY 5 [facility] 1/> AREAS INC INC ELEC STIMJ UNATTENDE D APPL 49331 [place] MODALITY 5 [facility] 1/> AREAS INC INC IONTOPHOR ESIS EA 15 MIN THERAPEUT 38144 [place] IC PX 1/> 5 [facility] AREAS INC INC EACH 15 MIN EXERCISES APPL 74474 [place] MODALITY 5 [facility] 1/> AREAS INC INC ULTRASOUN D EA 15 MIN APPLICATI 09515 [place] ON 5 [facility] MODALITY INC INC 1/> AREAS HOT/COLD PACKS LIPID 41607 [facility] PANEL 5 N N COMMUNTIY COMMUNTIY HOSPITA HOSPITA COMPREHEN 16096 [facility] SIVE 5 N N METABOLIC COMMUNTIY COMMUNTIY PANEL HOSPITA HOSPITA RADIOLOGI 11145 [facility] [place] DANT[place] C EXAM 5 RADIOLOGY SHA CHEST 2 VIEWS FRONTAL&L ATERAL THYROID 27695 [facility] HORM 5 N N UPTK/THYR COMMUNTIY COMMUNTIY OID HOSPITA HOSPITA HORMONE BINDING RATIO BLOOD 41755 [facility] COUNT 5 N N COMPLETE COMMUNTIY COMMUNTIY [place] [address] [facility] THYROXINE 5 N N TOTAL COMMUNTIY COMMUNTIY HOSPITA HOSPITA CUL 61456 [facility] PRSMPTV 5 N N PTHGNC COMMUNTIY COMMUNTIY ORGANISM HOSPITA HOSPITA SCRN W/COLONY ESTIMJ COLLECTIO 12615 [facility] N VENOUS 5 N N BLOOD COMMUNTIY COMMUNTIY [place]IP[place] [address] [facility] THYROID 5 N N STIMULATI COMMUNTIY COMMUNTIY NG HOSPITA HOSPITA HORMONE TSH ECG 68829 [facility] ROUTINE 5 N N ECG COMMUNTIY COMMUNTIY W/LEAST HOSPITA HOSPITA 12 LDS TRCG ONLY W/O I&R PHYSICAL 70127 [place] [facility] THERAPY 5 [facility] EVALUATIO INC INC N FIBRIN 47831 [place] [facility] DGRADJ 5 [facility] PRODUCTS INC INC D-DIMER QUAL/SEMI GILBERT COLLECTIO 37700 [place] [facility] N VENOUS 5 [facility] BLOOD INC INC VENIPUNCT URE ECG 96190 [place] CHAVEZ JR ROUTINE 5 [facility] W/LEAST P 12 LDS I&R ONLY BLOOD 51796 [place] [facility] COUNT 5 [facility] COMPLETE INC INC AUTO&AUTO DIFRNTL WBC ECG 16856 [place] ROUTINE 5 [facility] ECG INC INC W/LEAST 12 LDS TRCG ONLY W/O I&[place] [address] [place] [facility] TROPONIN 5 [facility] QUANTITAT INC INC SABIHA COMPREHEN 80618 [place] [facility] SIVE 5 [facility] METABOLIC INC INC PANEL RADIOLOGI 02846 [place] HARLEEN C EXAM 5 MEDICAL ADRIANNA CHEST 2 IMAGING VIEWS ASS FRONTAL&L ATERAL URNLS DIP 33509 [place] [facility] 5 [facility] STICK/TAB INC INC LET REAGENT AUTO MICROSCOP Y RADIOLOGI 69602 SEJAL ABBOTTUTCHER C EXAM 5 MEDICAL ADRIANNA CHEST 2 IMAGING VIEWS ASS FRONTAL&L ATERAL COMPREHEN 47603 [place] SIVE 5 [facility] [place] [address] [place] [facility] TROPONIN 5 [facility] QUANTITAT INC INC SABIHA ECG 30482 [place] ROUTINE 5 [facility] ECG INC INC W/LEAST 12 LDS TRCG ONLY W/O I&R FIBRIN 31039 [place] DGRADJ 5 [facility] PRODUCTS INC INC D-DIMER QUAL/[place] [address] SEJAL CANSECO ANGIOGRAP 5 MEDICAL ADRIANNA HY CHEST IMAGING W/CONTRAS ASS T/NONCONT RAST BLOOD 47142 [place] COUNT 5 [facility] COMPLETE INC INC AUTO&AUTO DIFRNTL WBC ECG 82724 [place] MATUTE ROUTINE 5 [facility] W/LEAST P 12 LDS I&R ONLY LOCM Q9967 [place] 300-399 5 [facility] MG/ML INC INC IODINE CONCENTRA TION PER ML RADEX 81019 [facility] SHOULDER 4 MEDICAL COMPLETE IMAGING MINIMUM 2 ASS VIEWS DESTRUCTI 36395 ATKINS ATKINS ON BENIGN 4 TRA TRA LESIONS UP TO 14 REPAIR 43045 ATKINS ATKINS COMPLEX 4 TRA TRA SCALP/ARM /LEG 1.1-2.5 CM LEVEL III 25800 SCAL[facility] LEI SCALF LEI SURG 4 PATHOLOGY GROSS&[place] [address] SEJAL CANSECO HEAD/BRAI 4 MEDICAL ADRIANNA N W/O IMAGING CONTRAST ASS MATERIAL THERAPEUT 58391 [place] IC 4 [facility] INJECTION INC INC IV PUSH EACH NEW DRUG SPECIAL 17684 [facility] JR WANDA GROUP 1 MICROORGA NISMS I&R SPCL STN 70706 [facility], [facility] 2 I&R 4 [facility] ER JR WANDA EXCPT MICROORG/ ENZYME/IM CYT EGD 65470 [facility] SANCHEZ MICHELLE TRANSORAL 4 BIOPSY BARIATRIC SINGLE/MU SURGICAL LTIPLE ANES 88444 SEJAL BENSON UPPER GI 4 ANESTHESI JOSE ANGEL ENDOSCOPY A GROUP [place] [address] [facility] SURG [facility] ER JR WANDA PATHOLOGY GROSS&BRYCE ROSCOPIC EXAM SPMTRY 42685 [place] W/VC 4 [facility] EXPIRATOR INC INC Y ABHI W/WO MXML VOL VNTJ EXC B9 84200 ADVANCED SC[place] LEI LESION 4 DERMATOLO MRGN XCP GY SK TG S/N/H/F/G 1.1-2.0CM LEVEL III 95513 SCALF LEI SCALF LEI SURG 4 PATHOLOGY GROSS&BRYCE ROSCOPIC EXAM REPAIR 02196 ADVANCED SCALF LEI COMPLEX 4 DERMATOLO SCALP/ARM GY /LEG 1.1-2.5 CM RADIOLOGI 15003 [place] [facility] C EXAM 4 [facility] CHEST 2 INC INC VIEWS FRONTAL&L ATERAL REMOVAL 41231 ATKINS ATKINS SKN TAGS 4 TRA TRA FRAME TENDER FIBRQ TAGS ANY AREA UPW/15 CV STRS 72177 [place] MATUTE TST 4 [facility]&/OR [facility] RX CONT P ECG I&R ONLY CV STRS 53522 [place] [facility] TST 4 [facility] XERS&/OR INC INC RX CONT ECG TRCG ONLY ECHO 04623 MELANIE MARTINEZ TTHRC R-T 4 MEDICAL ALI 2D SERV W/WOM-MOD FOUNDATIO E COMPL SPEC&COLR D RADIOLOGI 15739 [place] CHANEL C EXAM 4 MEDICAL CARMEN CHEST 2 IMAGING VIEWS ASS FRONTAL&L ATERAL BASIC 62210 [place] [facility] METABOLIC 4 [facility] [place] [address] [place] TROPONIN 4 [facility] QUANTITAT INC INC SABIHA RADIOLOGI 96119 [place] C 4 [facility] EXAMINATI INC INC ON CHEST SINGLE VIEW FRONTAL ECG 21785 [place] ROUTINE 4 [facility] ECG INC INC W/LEAST 12 LDS TRCG ONLY W/O I&R ECG 29598 SCOTT CHAVEZ JR ROUTINE 4 DWI DWI ECG W/LEAST 12 LDS I&R ONLY BLOOD 90757 [facility] [facility] COUNT 4 [facility] COMPLETE INC INC AUTO&AUTO DIFRNTL WBC BLOOD 96775 [place] COUNT 4 [facility] COMPLETE INC INC AUTO&AUTO DIFRNTL WBC ECG 67782 GIOVANI MATUTE ROUTINE 4 DOMINIQUE DOMINIQUE ECG W/LEAST 12 LDS I&R ONLY ECG 75168 [facility] [facility] ROUTINE 4 [facility] ECG INC INC W/LEAST 12 LDS TRCG ONLY W/O I&R FIBRIN 83867 [place] DGRADJ 4 [facility] PRODUCTS INC INC D-DIMER QUAL/[place] [address] [place] [facility] TROPONIN 4 [facility] QUANTITAT INC INC SABIHA CREATINE 65813 [place] KINASE MB 4 [facility] FRACTION INC INC ONLY CREATINE 66492 [place] KINASE 4 [facility] TOTAL INC INC RADIOLOGI 40230 [place] C EXAM 4 [facility] CHEST 2 INC INC VIEWS FRONTAL&L ATERAL COMPREHEN 17663 [place] SIVE 4 [facility] METABOLIC INC INC PANEL HEMOGLOBI 51851 COMBINED COMBINED N 4 PHYSICIAN PHYSICIAN GLYCOSYLA S LA S LA LANEY A1C LIPID 45347 COMBINED COMBINED PANEL 4 PHYSICIAN PHYSICIAN S LA S LA GENERAL 79564 COMBINED COMBINED HEALTH 4 PHYSICIAN PHYSICIAN PANEL S LA S LA 25 93309 COMBINED COMBINED HYDROXY 4 PHYSICIAN PHYSICIAN INCLUDES S LA S LA FRACTIONS IF PERFORMED CYANOCOBA 93574 COMBINED COMBINED LYUBOV 4 PHYSICIAN PHYSICIAN VITAMIN S LA S LA B-12 SEDIMENTA 99533 COMBINED COMBINED TION RATE 4 PHYSICIAN PHYSICIAN [place] [address] COMBINED COMBINED FREE 4 PHYSICIAN PHYSICIAN THYROXINE S LA S LA COMPUTER- 45428 [place] AIDED 4 [facility] DETECTION INC INC SCREENING MAMMOGRAP HY SCREENING G0202 [place] [facility] 4 [facility] MAMMOGRAP INC INC HY WILBERT INCL CAD WHEN PERFORMD LIPID 65056 [facility]ST PANEL 4 DIAGNOSTI DIAGNOSTI CS CS IIV3 58747 DHS/CO [place] VACCINE 9 [facility]ALTH [facility] VIRUS 0.5 BANK ACCT ML DOSAGE IM USE RADEX 49652 [place] [facility] SPINE 9 [facility] LUMBOSACR INC INC AL MINIMUM 4 VIEWS RADEX HIP 72752 Georgi [facility] [place] [facility] L ASSOCIATE COMPLETE S MINIMUM 2 VIEWS RADEX 79537 KIMBERLEE PASCUAL, SPINE 9 [facility] LUMBSCRL CORPORATI COMPL ON W/BENDING VIEWS MIN 6 RADIOLOGI 70194 [facility] SPENCER 9 MEDICAL MAX [place] EXAMINATI IMAGING ON PELVIS ASSOCIATE 1/2 S VIEWS Encounters Encounter Start End Date Code Location Performer Type Date OFFICE 54128 [facility] KIMBERLY OUTPATIEN 7 7 PHYSICIAN T VISIT S GROUP 25 MINUTES OFFICE 23916 [facility] ISSA OUTPATIEN 7 7 PHYSICIAN T VISIT S GROUP 10 MINUTES OFFICE 86603 [facility] KIMBERLY OUTPATIEN 7 7 PHYSICIAN T VISIT S GROUP 25 MINUTES [facility] [place] [facility] 7 7 [facility] OUTPATIEN INC T OFFICE 02598 [facility] OUT[facility]IEN 7 7 [facility] T VISIT INTERNAL 15 MED MINUTES [facility] [place] [facility] 7 7 [facility] OUTPATIEN INC T OFFICE 34241 [facility] KIMBERLY OUTPATIEN 7 7 PHYSICIAN T VISIT S GROUP 25 MINUTES OFFICE 72889 [facility] [place] T VISIT ORTHOPAED 15 IC MINUTES EMERGENCY 23350 [place] 7 7 [facility] T VISIT HIGH/URGE NT SEVERITY [facility] [place] - 7 7 [facility] OUTPATIEN [facility] EMERGENCY 87233 SMI[facility] ARMIJO DEPT 7 7 PHYSICIAN [facility]ISIT S, [facility] SE[facility]& THREAT FUNCJ OFFICE 38542 [place] GIOVANI CHAND 7 7 [place] T VISIT INTERNAL 25 MED MINUTES OFFICE 48877 [place] OUTPATIEN 7 7 [facility] T VISIT 5 INC MINUTES [facility] [place] - 7 7 [facility] OUTPATIEN [facility] OFFICE 58950 [facility] OUTPATIEN 7 7 [place] T NEW 30 ORTHOPAED MINUTES IC EMERGENCY 22156 [place] 7 7 [facility] T [facility]ISIT LOW/MODER SEVERITY [facility] [place] [facility] 7 7 [facility] [place] [facility] 7 7 [facility] OUTPATI[facility] EMERGENCY 65741 [place] 7 7 [facility] T VISIT MODERATE SEVERITY [facility] [place] - 7 7 [facility] OUTPATIEN [facility] [place] - 7 7 [facility] EMERGENCY 78163 [place] 7 7 [facility] T VISIT LOW/MODER SEVERITY EMERGENCY 82206 SMILEY PASCUAL 7 7 PHYSICIAN DEPARTMEN S, [facility] T VISIT HIGH/URGE NT SEVERITY OFFICE 26830 [place] RICHY CHAND 7 7 [place] T VISIT INTERNAL 15 MED MINUTES EMERGENCY 08297 MARY 7 7 [facility] T VISIT LOW/MODER SEVERITY EMERGENCY 65210 [facility] 7 7 [facility] EMERGENC[facility] T VISIT PHYS MODERATE SEVERITY [facility] [place] - 7 7 [facility] T OFFICE 92474 [place] OUTPATIEN 7 7 [facility] T VISIT 5 INC MINUTES [facility] [place] - 7 7 [facility]PATIEN [facility] OFFICE 23029 [place] OUTPATIEN 7 7 [place] T VISIT INTERNAL 15 MED MINUTES [facility] [place] - 7 7 [facility] OUTPATIEN [facility] T OFFICE 64362 [place] OUTPATIEN 7 7 [facility] T VISIT 5 INC MINUTES OFFICE 39689 [place] OUTPATIEN 7 7 [facility] T V[facility] 5 [facility] [place] [facility] OUTPATIEN [facility] T OFFICE 49583 [place] OUTPATIEN 7 7 [place] T VISIT INTERNAL 25 MED MINUTES OFFICE 63000 [place] OUTPATIEN 7 7 [facility] T NEW 10 INC MINUTES [facility] [place] [facility] 7 7 [facility]IEN [facility] 62931 [facility] JASSO OUTPATIEN 7 7 T VISIT 25 MINUTES [facility] [place] [facility] 7 7 [facility] OUTPATIEN [facility] EMERGENCY 55551 [place] 7 7 [facility] DEPARTMEN [facility] T VISIT LIMITED/M INOR PROB EMERGENCY 17030 [place] 7 7 [facility] DEPARTMEN [facility] T VISIT LOW/MODER SEVERITY [facility] [place] - 7 7 [facility] OUTPATIEN [facility] T EMERGENCY 99561 [place] 7 7 [facility] DEPARTMEN [facility] T VISIT LIMITED/M INOR PROB [facility]OSP[facility] [place] - 7 7 [facility] OUTPATIEN [facility] - 7 7 HEALTH OUTPATIEN [facility] SIKHISM - 7 7 HEALTH OUTPATIEN [facility] EMERGENCY 09675 [place] 6 6 [facility] T VISIT HIGH/URGE NT SEVERITY [facility] [place] - 6 6 [facility] T OFFICE 73124 [place] OUTPATIEN 6 6 VALLEY T VISIT INTERNAL 15 MED MINUTES EMERGENCY 12307 S[facility] JAQUEZ 6 6 PHYSICIAN RADHA Rdedy [facility] T VISIT HIGH/URGE NT SEVERITY EMERGENCY 10415 [place] 6 6 [facility] [place] T VISIT MODERATE SEVERITY [facility] [place] - 6 6 [facility] T EMERGENCY 87588 [place] 6 6 [facility] T VISIT LIMITED/M INOR PROB [facility]OS[facility] [place] - 6 6 [facility] T EMERGENCY 53438 SMILEY ARMIJO 6 6 PHYSICIAN RADHA Reddy [facility] T VISIT MODERATE SEVERITY EMERGENCY 08991 [place] 6 6 [facility] [place] T VISIT LOW/MODER SEVERITY [facility] [place] - 6 6 [facility] T EMERGENCY 94144 S[facility] PASCUAL 6 6 PHYSICIAN BR[facility]CE [facility]IS[facility] MODERATE SEVERITY OFFICE 49846 SCIFRES SCIFRES OUTPATIEN 6 6 ANG ANG T VISIT 10 MINUTES OFFICE 65988 [place] ARSLAN OUTPATIEN 6 6 [facility] OFELIA T VISIT INTERNAL 15 MED MINUTES OFFICE 19617 [facility] SANCHEZ MICHELLE OUTPATIEN 6 6 T VISIT BARIATRIC 25 SURGICAL MINUTES EMERGENCY 61177 SMILEY SOTOMAYOR 6 6 PHYSICIAN JR MANUELITO [facility]dy [facility]IS[facility] HIGH/URGE NT SEVERITY [facility] [place] [facility] 6 6 [facility] OUTPATIEN INC T EMERGENCY 56799 [place] 6 6 [facility] DEPARTMEN INC T VISIT LOW/MODER SEVERITY EMERGENCY 76431 SMI[facility] PASCUAL 6 6 PHYSICIAN BRYCE DEPARTMEN S, PLLC T VISIT MODERATE SEVERITY EMERGENCY 04911 [place] 6 6 [facility] T VISIT LIMITED/M INOR PROB [facility] [place] - 6 6 [facility] OUTPATIEN INC T OFFICE 20573 [facility] OUTPATIEN 6 6 [facility] T VISIT MEDICAL 15 G MINUTES [facility] [place] - 6 6 [facility] OUTPATIEN INC T OFFICE 42118 [facility] HUMPHREY OUTPATIEN 6 6 PHYSICIAN MEAGAN T VISIT S GROUP 15 MINUTES [facility] [place] - 6 6 [facility] OUTPATIEN INC T OFFICE 30741 [facility] ISSA OUTPATIEN 6 6 PHYSICIAN JARON T VISIT S GROUP 10 MINUTES [facility] [place] - 6 6 [facility] OUTPATIEN INC T EMERGENCY 64203 [place] 6 6 [facility] DEPARTMEN INC T VISIT MODERATE SEVERITY [facility] [place] - 6 6 [facility] OUTPATIEN INC T OFFICE 73563 [facility] ISSA OUTPATIEN 6 6 PHYSICIAN JARON T VISIT S GROUP 10 MINUTES [facility] [place] - 6 6 [facility] OUTPATIEN INC T OFFICE 27148 [place] ALATORRE OUTPATIEN 6 6 [facility] T VISIT HOSPITAL 10 P MINUTES OFFICE 65563 DOMINICK ANDRES OUTPATIEN 6 6 HEALTH IV HEN T VISIT MEDICAL 15 GROUP MINUTES OFFICE 95012 PERLA RODRIGUEZ [facility] OUTPATIEN 6 6 GROUND T VISIT FAMILY 25 CLINI MINUTES OFFICE 73504 [facility] 5 HLTH DEPT HLTH DEPT MINUTES [facility] EMERGENCY 40657 SMILEY ARMIJO 6 6 PHYSICIAN CASANDRA Reddy [facility] T VISIT HIGH/URGE NT SEVERITY EMERGENCY 31289 [place] 6 6 [facility] T VISIT MODERATE SEVERITY EMERGENCY 36140 [place] 6 6 [facility] T VISIT LOW/MODER SEVERITY [facility] [place] 6 6 [facility] OUTPATIEN [facility] T [facility] [place] 6 6 [facility] OUTPATIEN INC T OFFICE 77580 [facility] KIMBERLY OUTPATIEN 6 6 PHYSICIAN MAT T VISIT S GROUP 25 MINUTES [facility] [place] 6 6 [facility] OUTPATIEN [facility] T OFFICE 94094 [facility] 6 T VISIT BARIATRIC 25 SURGICAL MINUTES OFFICE 38182 [facility] KIM[facility] OUTPATIEN 6 6 PHYSICIAN MAT T NEW 45 S GROUP MINUTES [facility] [place] 6 6 [facility] OUT[facility] T EMERGENCY 83335 [place] 6 [facility] [place] T VISIT LOW/MODER SEVERITY EMERGENCY 89661 SMILEY PASCUAL 6 6 PHYSICIAN BRYCE Reddy [facility] T VISIT MODERATE SEVERITY OFFICE 19665 ALLERGY ROSENTHAL MAR OUTPATIEN 6 6 PARTNERS T VISIT OF [place] 40 CO MINUTES EMERGENCY 04118 [place] JIMENEZ 6 6 PHYSICIAN Taylor Reddy [facility] T VISIT HIGH/URGE NT SEVERITY EMERGENCY 61964 [place] 6 6 [facility] [place] T VISIT LOW/MODER SEVERITY [facility] [place] 6 6 [facility] T [facility] [place] 6 6 [facility] OUTPATIEN [facility] T EMERGENCY 42837 SMILEY PASCUAL 6 6 PHYSICIAN BRYCE DEPARTMEN S, [facility] T VISIT MODERATE SEVERITY EMERGENCY 62429 [place] 6 6 [facility] T VISIT LOW/MODER SEVERITY OFFICE 22991 [facility] 6 6 N T VISIT NEUROLOGY 10 MINUTES [facility] [place] 6 6 [facility] OUTPATIEN [facility] T [facility] [place] 6 6 [facility]PATIEN [facility] T EMERGENCY 24422 [place] 6 6 [facility] T VISIT LIMITED/M INOR PROB EMERGENCY 35608 SMILEY SOTOMAYOR 6 6 PHYSICIAN JR [facility] T VISIT MODERATE SEVERITY [facility] [place] 6 6 [facility] OUTPATIEN [facility] T EMERGENCY 86891 SMILEY PASCUAL DEPT 6 6 PHYSICIAN BRYCE VISIT , [facility] HIGH SEVERITY& THREAT FUNCJ [facility]OS[facility] [place] - 6 6 [facility] OUTPATIEN [facility] T EMERGENCY 87187 [place] 6 6 [facility] T VISIT MODERATE SEVERITY OFFICE 84939 [place] [facility] 6 6 [facility] VISIT HOSPITAL 10 P MINUTES H[facility] [place] 6 6 [facility]PATI[facility] T EMERGENCY 82772 [place] 6 6 [facility] T VISIT MODERATE SEVERITY EMERGENCY 78995 Milana ZENDEJAS 6 PHYSICIAN JR MANUELITO GARCIA , [facility] T VISIT HIGH/URGE NT SEVERITY OFFICE 40694 [place] [facility] 6 [facility] 10 P MINUTES EMERGENCY 09934 SMILEY PASCUAL DEPT 6 6 PHYSICIAN BRYCE VISIT S, PLLC HIGH SEVERITY& THREAT FUNCJ OFFICE 90356 ALLERGY ROSENTHAL MAR CONSULTAT 6 6 PARTNERS ION OF TRE NEW/ESTAB CO PATIENT 60 MIN [facility] [place] [facility] 6 6 [facility] OUTPATIEN [facility] T EMERGENCY 47637 SMILEY PASCUAL 6 6 PHYSICIAN BRYCE DEPARTMEN S, PLL[facility] T VISIT MODERATE SEVERITY EMERGENCY 47753 [place] 6 6 [facility] T VISIT LOW/MODER SEVERITY EMERGENCY 34060 SMILEY PASCUAL DEPT 6 6 PHYSICIAN BRYCE VISIT S, PLLC HIGH SEVERITY& THREAT FUNCJ EMERGENCY 63436 [place] 6 6 [facility] T VISIT LOW/MODER SEVERITY [facility] [place] 6 6 [facility] OUTPATIEN [facility] [place] 6 6 [facility] OUTPATIEN [facility] EMERGENCY 10113 SMILEY SUGGS [facility] 6 6 PHYSICIAN DEPARTMEN S, PLLC T VISIT LOW/MODER SEVERITY OFFICE 71455 [facility] [facility] 6 6 PHYSICIAN T VISIT S GROUP 25 MINUTES EMERGENCY 46606 [place] 6 6 [facility] T VISIT LOW/MODER SEVERITY EMERGENCY 49208 SMILEY PASCUAL 6 6 PHYSICIAN [facility] DEPARTMEN S, [facility] T VISIT MODERATE SEVERITY [facility] [place] [facility] 6 6 [facility] OUTPATIEN [facility] 6 6 N OUTPATIEN COMM[facility] [place] [facility] 6 6 [facility] OFFICE 71671 [facility] PHYSICIAN JARON T NEW 20 S GROUP MINUTES EMERGENCY 61363 [place] 6 6 [facility] T VISIT MODERATE SEVERITY EMERGENCY 01257 SMILEY ARMIJO DEPT 6 6 PHYSICIAN CASANDRA VISIT S, PLLC HIGH SEVERITY& THREAT FUNCJ EMERGENCY 77983 SMILEY PASCUAL 6 6 PHYSICIAN BRYCE DEPARTMEN S, PLLC T VISIT HIGH/URGE NT SEVERITY [facility]OSP[facility] [place] 6 6 [facility] OUT[facility]EN [facility] 6 [address] [facility] [place] [facility] 6 6 [facility] INC T EMERGENCY 51228 SMILEY PASCUAL DEPT 6 6 PHYSICIAN BRYCE VISIT S, PLLC HIGH SEVERITY& THREAT FUNCJ EMERGENCY 28619 [place] 6 6 [facility] T VISIT MODERATE SEVERITY OFFICE 62049 [facility] 6 6 T VISIT BARIATRIC 25 SURGICAL MINUTES [facility] [place] - 6 6 [facility] - 6 6 HEALTH OUTPATIEN [facility] EMERGENCY 66472 [facility] 6 6 HEALTH DEPARTMEN [facility] VISIT MODERATE SEVERITY [facility] [place] - 6 6 [facility] EMERGENCY 77602 [place] 6 6 [facility] T VISIT LOW/MODER SEVERITY EMERGENCY 42848 SMILEY BAGLEY DEPT 6 6 PHYSICIAN FOR VISIT S, PLLC HIGH SEVERITY& THREAT FUNJ [facility] [place] - 6 6 [facility] OUTPATIEN INC T EMERGENCY 52654 SMILEY PASCUAL 6 6 PHYSICIAN BRYCE DEPARTMEN S, PLLC T VISIT HIGH/URGE NT SEVERITY EMERGENCY 81691 SMILEY HUNT 6 6 PHYSICIAN DEPARTMEN S, PLLC T VISIT HIGH/URGE NT SEVERITY EMERGENCY 57452 [place] 6 6 [facility] DEPART[facility] INC T VISIT LOW/MODER SEVERITY [facility] [place] [facility] 6 6 [facility] OUT[facility] INC T EMERGENCY 46739 [facility] 6 6 [place] [facility] EMERGENCY T VISIT PHYS HIGH/URGE NT SEVERITY HOSPITAL [facility] - 6 6 N OUTPATIEN COMMUNTIY T HOSPITA EMERGENCY 38199 [place] DEPT 6 6 [facility] VISIT INC HIGH SEVERITY& THREAT FUNCJ [facility] [place] - 6 6 [facility] OUTPATI[facility] INC T OFFICE 92422 [facility] CONSULTAT 6 6 N ION NEUROLOGY NEW/ESTAB PATIENT 60 MIN OFFICE 77653 [facility] OUT[facility] 6 6 MATTI MATTI T NEW 30 MINUTES OFFICE 56381 SCALF LEI SCALF LEI OUTPATIEN 6 6 T VISIT 25 MINUTES EMERGENCY 25620 SMILEY PASCUAL DEPT 6 6 PHYSICIAN BRYCE VISIT S, PLLC HIGH SEVERITY& THREAT FUNCJ EMERGENCY 28100 [place] 6 6 [facility] DEPARTMEN INC T VISIT HIGH/URGE NT SEVERITY [facility] [place] [facility] 6 6 [facility] OUT[facility] INC T OFFICE 12447 [place] A[facility] OUTPATIEN 6 6 [facility] T VISIT INTERNAL 15 MED MINUTES HOSPITAL [facility] - 6 6 HEALTH OUTPATIEN [facility] [place] - 6 6 [facility] OUT[facility] INC T EMERGENCY 05624 SMILEY PASCUAL DEPT 6 6 PHYSICIAN BRYCE VISIT S, PLLC HIGH SEVERITY& THREAT FUNCJ EMERGENCY 26402 [place] 6 6 [facility] DEPARTMEN INC T VISIT HIGH/URGE NT SEVERITY [facility] [place] - 6 6 [facility] OUTPATI[facility] INC T OFFICE 00576 [facility] OUTPATIEN 6 6 HEALTH KADIE T VISIT MEDICAL 15 GROUP MINUTES OFFICE 38646 WENDY SANCHEZ MICHELLE OUTPATIEN 6 6 T VISIT BARIATRIC 25 SURGICAL MINUTES [facility] [place] [facility] 6 6 [facility] OUT[facility] INC T OFFICE 50144 [place] A[facility] OUTPATIEN 6 6 [facility] OFELIA T VISIT INTERNAL 15 MED MINUTES INITIAL 28848 [facility] PREVENTIV 6 6 PHYSICIAN E S GROUP MEDICINE NEW PATIENT 40-64YRS [facility] [place] - 6 6 [facility] OUT[facility] INC T OFFICE 40899 [facility] [place] OUTPATIEN 6 6 PRIMARY KADIE T VISIT CARE OF 15 ABISAI MINUTES OFFICE 27497 [place] A[facility] OUTPATIEN 6 6 [facility] T VISIT INTERNAL 15 MED MINUTES [facility] [place] - 6 6 [facility] OUTPATIEN INC T OFFICE 23359 WENDY SANCHEZ MICHELLE OUTPATIEN 5 5 T VISIT BARIATRIC 25 SURGICAL MINUTES OFFICE 39844 ATKINS ATKINS OUTPATIEN 5 5 TRA TRA T VISIT 25 MINUTES PERIODIC 87497 [facility] DEPT HLTH DEPT PATIENT JAZZ JAZZ 40-64YRS OFFICE 88511 WENDY SANCHEZ MICHELLE OUTPATIEN 5 5 T VISIT BARIATRIC 15 SURGICAL MINUTES [facility] [place] - 5 5 [facility] INC T [facility] [place] - 5 5 [facility] OUTPATI[facility] INC T OFFICE 40829 [place] ARSLAN OUTPATIEN 5 5 [facility] OFELIA T NEW 30 INTERNAL MINUTES MED OFFICE 56208 [facility] PETTEY OUTPATIEN 5 5 PHYSICIAN JAM T VISIT S GROUP 15 MINUTES OFFICE 59331 GASTROENT CASE JUS OUTPATIEN 5 5 EROLOGY T VISIT AND 15 HEPATOL MINUTES OFFICE 65453 [facility] DARSHANK OUTPATIEN 5 5 HEALTH KADIE T VISIT MEDICAL 10 GROUP MINUTES [facility] [place] - 5 5 N [facility] 08034 [place] 5 5 [facility] DEPARTMEN INC T VISIT HIGH/URGE NT SEVERITY [facility] [place] - 5 5 [facility]PAT[facility] INC T [facility] [place] - 5 5 N OUTPATIEN COMMUNTIY T [facility] [place] - 5 5 [facility] OUTPATIEN INC T OFFICE 58265 GASTROENT CASE JUS OUTPATIEN 5 5 EROLOGY T NEW 45 AND MINUTES HEPAT [facility] [place] - 5 5 [facility] OUTPATIEN INC T EMERGENCY 79230 [place] 5 5 [facility] DEPARTMEN INC T VISIT LOW/MODER SEVERITY OFFICE 15786 DANIEL SANCHEZ OUTPATIEN 5 5 HUBER HUBER T VISIT 15 MINUTES EMERGENCY 20463 [place] 5 5 [facility] DEPARTMEN INC T VISIT MODERATE SEVERITY [facility] [place] - 5 5 [facility] OUTPATIEN INC [facility] [place] - 5 5 N OUTPATIEN COMMUNTIY T [facility] [place] - 5 5 N OUTPATIEN COMMUNTIY T [facility] [place] [facility] 5 5 N INPATIENT COMMUNTIY [facility] [place] [facility] 5 5 [facility] OUTPATIEN INC T OFFICE 48809 [facility] SANCHEZ MICHELLE OUTPATIEN 5 5 T VISIT BARIATRIC 40 SURGICAL MINUTES OFFICE 15749 DANIEL ROBERTSBING OUTPATIEN 5 5 HUBER HUBER T VISIT 15 MINUTES EMERGENCY 44787 [place] 5 5 [facility] DEPARTMEN INC T VISIT LOW/MODER SEVERITY [facility] [place] [facility] 5 5 [facility]PATIEN [facility] [place] [facility] 5 5 [facility]PAT[facility] [place] [facility] 5 5 N OUTPATIEN COMMUNTIY [facility] [place] - 5 5 [facility]PAT[facility] INC [facility] [place] - 5 5 [facility] OUTPAT[facility] INC T OFFICE 12634 [place] CELI OUTPATIEN [address] MINUTES P OFFICE 53544 MELANIE NOGUEIRA OUTPATIEN 5 5 MEDICAL JAM T VISIT SERV 15 FOUNDATIO MINUTES N OFFICE 69724 [place] WEISS JR OUTPATIEN [address] MINUTES P OFFICE 53221 [facility] CHRISTOPHERTEMago OUTPATIEN 5 5 PHYSICIAN JAM [facility] 30 S GROUP MINUTES OFFICE 65131 [facility] CONSULTAT 5 5 [facility] NEW/ESTAB G PATIENT 60 MIN OFFICE 48974 DANIEL SANCHEZ OUTPATIEN 5 5 HUBER HUBER T VISIT 15 MINUTES EMERGENCY 25579 [place] 5 5 [facility] DEPARTMEN INC T VISIT HIGH/URGE NT SEVERITY [facility] [place] - 5 5 [facility] OUTPATIEN INC T EMERGENCY 82077 [place] ESCOTO 5 5 [facility] T VISIT P MODERATE SEVERITY [facility] [place] - 5 5 [facility] OUTPATIEN INC T EMERGENCY 77761 [place] 5 5 [facility] DEPARTMEN INC T VISIT HIGH/URGE NT SEVERITY OFFICE 84781 DANIEL CHAND 5 5 HUBER HUBER T VISIT 15 MINUTES OFFICE 01295 DANIEL CHAND 4 4 HUBER HUBER T VISIT 15 MINUTES [facility]OSP[facility] [place] Estes 4 4 [facility] OUTPAT[facility] INC T EMERGENCY 38420 [place] WINTERS 4 4 [facility] T VISIT P LOW/MODER SEVERITY OFFICE 41232 DANIEL CHAND 4 4 HUBER HUBER T VISIT 15 MINUTES EMERGENCY 38214 [facility] DEPT 4 4 [place] VISIT EMERGENCY HIGH PHYS SEVERITY& THREAT [facility] [place] Estes 4 4 [facility] 86652 DANIEL CHAND 4 4 HUBER HUBER T VISIT 15 MINUTES OFFICE 13090 MONALISA CHAPIN CONSULTAT 4 4 KADIE ION CARDIOLOG NEW/ESTAB Y AT CENT PATIENT 40 MIN OFFICE 24234 MELANIE NOGUEIRA CONSULTAT 4 4 MEDICAL JAM ION SERV NEW/ESTAB FOUNDATIO PATIENT N 60 MIN [facility]OSP[facility] [place] - 4 4 [facility] OUTPATIEN [facility] [place] Estes 4 4 [facility] OUTPATIEN INC T OFFICE 26508 DANIEL CHAND 4 4 HUBER HUBER T VISIT 15 MINUTES OFFICE 21247 [facility] NE [facility] NACHO T VISIT MEDICAL 15 G MINUTES OFFICE 31399 ATKINS ATKINS CONSULTAT 4 4 TRA TRA ION NEW/ESTAB PATIENT 40 MIN [facility]OSP[facility] [place] - 4 4 [facility] INC T OFFICE 66054 [facility] OUT[facility] 4 4 NE [facility] NACHO T NEW 30 MEDICAL MINUTES G EMERGENCY 85298 [facility] 4 4 [place] MOH VISIT EMERGENCY HIGH PHYSI SEVERITY& THREAT FUN [facility] [place] - 4 4 [facility] OUTPATIEN INC T EMERGENCY 94478 [place] 4 4 [facility] DEPARTMEN INC T VISIT MODERATE SEVERITY EMERGENCY 74495 HORTENCIA HUGHES DEPT 4 4 VISIT HIGH SEVERITY& THREAT FUN OFFICE 82360 DANIEL TOLEDOPATIEN 4 4 HUBER HUBER T VISIT 15 MINUTES EMERGENCY 90382 ANKUR PASCUAL DEPT 4 4 BRYCE BRYCE VISIT HIGH SEVERITY& THREAT FUN EMERGENCY 37358 [place] 4 4 [facility] DEPARTMEN INC T VISIT HIGH/URGE NT SEVERITY [facility] [place] - 4 4 [facility] OUTPATI[facility] INC T OFFICE 28996 SANCHEZ MICHELLE SANCHEZ MICHELLE CONSULTAT 4 4 ION NEW/ESTAB PATIENT 80 MIN OFFICE 26575 ARMANDOBING DANIEL OUTDAYRON 4 4 HUBER HUBER T NEW 30 MINUTES [facility]OSP[facility] [place] - 4 4 [facility] INC T OFFICE 41265 MAEGAN ISSA OUTDAYRON 4 4 JARON JARON T VISIT 5 MINUTES OFFICE 35948 MAEGAN ISSA OUTDAYRON 4 4 JARON JARON T NEW 30 MINUTES Emergency PATRIC Burnett MD (ER) 4 16:35 4 17:31 [facility] PATRIC BURNETT (ER) 3 16:45 3 18:19 [facility] [place] - 9 9 [facility] OUT[facility]IEN INC T EMERGENCY 38126 KIMBERLEE PASCUAL, [address] [facility] T VISIT ON HIGH/URGE NT SEVERITY EMERGENCY 86194 [place] 9 9 [facility] INC T VISIT LOW/MODER SEVERITY
--- OUTSIDE RECORDS SUMMARY | 2017-03-24 01:08 | External Medical Summary Rpt ---
Author Author , Organization [employer] Address Unknown Phone Unavailable Care Team Providers Care Wrapper Caser Name Role Phone ALFARIS MOH, ALFARIS Unavailable Unavailable [facility]OH [facility] [place] [place], [facility] [place] ARNOLD HUBER, ARNOLD Unavailable Unavailable HUBER ARNOLD HUBER, ARNOLD Unavailable Unavailable HUBER ATKINS TRA, ATKINS Unavailable Unavailable TRA ATKINS TRA, ATKINS Unavailable Unavailable TRA [facility] Unavailable Unavailable [facility] Unavailable Unavailable [facility], [facility] Unavailable Unavailable OF [facility], [facility]DR[facility] Unavailable Unavailable BEINEKE D, BEINEKE D Unavailable Unavailable BEINEKE CARMEN, BEINEKE Unavailable Unavailable CARMEN CARBALLO, DUMONT Unavailable Unavailable HOW BESSON, BESSON Unavailable Unavailable BESSON DOMINIQUE, BESSON Unavailable Unavailable DOMINIQUE [facility] Unavailable Unavailable [facility], [facility] Unavailable [facility]available [facility] BOLIEK KADIE, BOLIEK Unavailable Unavailable KADIE CERRATO, CERRATO Unavailable Unavailable CERRATO ALL, CERRATO ALL Unavailable Unavailable [facility] Unavailable Unavailable [facility] Unavailable Unavailable SERVICE, [facility] Unavailable Unavailable SERVICE, [facility] SVITLANA KILO, SVITLANA Unavailable Unavailable KILO CASE JUS, CASE JUS Unavailable [facility]available [facility] Unavailable Un[facility], [facility] Unavailable Unavailable ORTHOP[facility]EDIC, [facility] CHESTNUT, CHESTNUT Unavailable Unavailable HUMPHREY MEAGAN, HUMPHREY Unavailable Unavailable [facility], Unavailable Unavailable [facility] Unavailable Unavailable [place], [facility] LUDIVINA RAMIREZE JR ENGLE, ISELA Unavailable Unavailable JR KADIE HARLEEN, HARLEEN Unavailable Unavailable HARLEEN ADRIANNA, Unavailable Unavailable HARLEEN ADRIANNA CELI, CELI Unavailable Unavailable CELI PHI, Unavailable Unavailable CELI PHI LOCKHART, LOCKHART Unavailable Unavailable FALLUJI NACHO, FALLUJI Unavailable Unavailable NACHO FAUGHN COX, FAUGHN Unavailable Unavailable COX FEEBACK, FEEBACK Unavailable Unavailable TOMAS JOSE ANGELANSONMARIN Unavailable Unavailable JOSE ANGEL ARSLAN OFELIA, Unavailable Unavailable ARSLAN OFELIA SOTOMAYOR, JR, SOTOMAYOR, Unavailable Unavailable JR SOTOMAYOR, JR ELJose J, Unavailable Unavailable SOTOMAYOR, JR ELZ ANKUR, ANKUR Unavailable Unavailable ANKUR BRYCE, ANKUR Unavailable Unavailable BRYCE ANKUR BRYCE, ANKUR Unavailable Unavailable BRYCE ANKUR, BK S, Unavailable Unavailable ANKUR, BK S [facility] Unavailable Unavailable [facility], [facility] Unavailable Unavailable HOSPITA, [facility] Unavailable Unavailable HOSPITA, [facility] RODRIGUEZ TRI, RODRIGUEZ TRI Unavailable Unavailable ANDREWS RHO, ANDREWS Unavailable Unavailable RHO [facility] Unavailable Unavailable CENTER, [facility] Unavailable Unavailable INC, [facility] Unavailable Unavailable HOSPITAL P, [facility] BOYER CHRISTEL, BOYER CHRISTEL Unavailable Unavailable BOYER CHRISTEL, BOYER CHRISTEL Unavailable Unavailable [facility], Unavailable Unavailable [facility] JAQUEZ, JAQUEZ Unavailable Unavailable VAUGHN TERA, VAUGHN Unavailable Unavailable BRYAN LONDONO Unavailable Unavailable ILUYOMADE ROT, Unavailable Unavailable ILUYOMADE ROT FELICIA DUARTE Unavailable Unavailable [facility] Unavailable Unavailable GROUP PS, [facility] Unavailable Unavailable [facility], [facility] Unavailable Unavailable MEDICAL G, [facility] KOSTELIC LANA, Unavailable Unavailable KOSTELIC LANA KRASNOPOLSKY LAUREN, Unavailable Unavailable KRASNOPOLSKY LAUREN [place] [...] Unavailable [facility], [facility] BRITTNY, BRITTNY Unavailable Unavailable BRITTNY ANT, BRITTNY ANT Unavailable Unavailable NAJERA, NAJERA Unavailable Unavailable LUKING, LUKING Unavailable Unavailable LUKING, LUKING Unavailable Unavailable LUKING MATTI, LUKING Unavailable Unavailable MATTI CHRIS, CHRIS Unavailable Unavailable NOGUEIRA, NOGUEIRA Unavailable Unavailable NOGUEIRA JAM, Unavailable [...] [facility], Unavailable Unavailable [facility] RENUSCH, RENUSCH Unavailable Unavailable RENUSCH CASANDRA, RENUSCH [...] ANGEL RODRIGUEZ SHABANA, RODRIGUEZ SHABANA Unavailable Unavailable RODRIGUEZ LEENA, RODRIGUEZ LEENA Unavailable Unavailable SOTINGEANU CARMEN, Unavailable Unavailable SOTINGEANU CARMEN COUNTS INCLUDE 234 BEDS AT THE [facility] Unavailable Unavailable EMERGENCY PHYS, COUNTS INCLUDE 234 BEDS AT THE [facility] EMERGENCY PHYS [facility] Un[facility] Unavailable Unavailable [address], [facility] FOR, WALKER Unavailable Unavailable FOR [facility] Unavailable [facility]available DEPT [facility], [facility] DEPT [facility] Unavailable Unavailable DEPT [facility], [facility] DEPT [facility] SANCHEZ, SANCHEZ Unavailable Unavailable SANCHEZ MICHELLE, SANCHEZ MICHELLE Unavailable Unavailable WELLS ELLEN, WELLS ELLEN Unavailable Unavailable WELLS SHA, WELLS SHA Unavailable Unavailable ROSENTHAL MAR, ROSENTHAL MAR Unavailable Unavailable SARAH KADIE, SARAH KADIE Unavailable Unavailable Purpose Continuity of Care Document - 01-04-2009 through 2016 Problems Code Diagnosis DOS Provider Status E669 OBESITY 02-25-2017 [facility] UNSPECIFIED PHYSICIANS GROUP I119 HYPERTENSIV 02-25-2017 [facility] E HEART PHYSICIANS DISEASE GROUP WITHOUT HEART FAILURE K449 DIAPHRAGMAT 02-25-2017 [facility] IC HERNIA PHYSICIANS W/O GROUP OBSTRUCTION OR GANGRENE R0600 DYSPNEA 02-25-2017 [facility] UNSPECIFIED PHYSICIANS GROUP R079 CHEST PAIN 02-25-2017 [facility] UNSPECIFIED PHYSICIANS GROUP J310 CHRONIC 02-17-2017 [facility] RHINITIS PHYSICIANS GROUP J329 CHRONIC 02-17-2017 [facility] SINUSITIS PHYSICIANS UNSPECIFIED GROUP J342 DEVIATED 02-17-2017 [facility] NASAL PHYSICIANS SEPTUM GROUP K5900 CONSTIPATIO 02-14-2017 [place] [facility] UNSPECIFIED IMAGING ASS I998 OTHER 02-11-2017 [facility] DISORDER OF [facility] CIRCULATORY SYSTEM R0602 SHORTNESS 02-11-2017 [facility] OF BREATH [facility] INC G8929 OTHER 02-10-2017 [facility] CHRONIC VALLEY PAIN INTERNAL MED T54635 PAIN IN 02-10-2017 [facility] LEFT VALLEY SHOULDER INTERNAL MED M5440 LUMBAGO 02-10-2017 [facility] WITH VALLEY SCIATICA INTERNAL UNSPECIFIED MED SIDE R002 PALPITATION 01-31-2017 [facility] S PHYSICIANS GROUP R5383 OTHER 01-31-2017 [facility] FATIGUE PHYSICIANS GROUP M5136 OTH 01-30-2017 [facility] DISC ORTHOPAEDIC DEGEN LUMBAR REGION E559 VITAMIN D 01-29-2017 [facility] DEFICIENCY MAI UNSPECIFIED HOLDINGS M545 LOW BACK 01-29-2017 [facility] PAIN [facility]THOP[facility]EDIC S PSC R072 PRECORDIAL 01-29-2017 [facility] PAIN PHYSICIANS, PLLC R0789 OTHER CHEST 01-29-2017 [place] PAIN [facility]ICAL [facility] ASS R110 NAUSEA 01-29-2017 [facility] P [id number] OTHER 01-29-2017 [facility] SPECIFIED MAI POSTPROCEDU HOLDINGS [facility] STATES M792 NEURALGIA 01-27-2017 [facility] AND VALLEY NEURITIS INTERNAL UNSPECIFIED MED I10 ESSENTIAL 01-26-2017 [facility] HYPERTENSIO INC N M542 CERVICALGIA 01-26-2017 [facility] INC H31951 SPONDYLOSIS 01-22-2017 [place] W/O MEDICAL MYELOPATH/R IMAGING ASS ADICULOPATH Y CERV RGN R202 PARESTHESIA 01-22-2017 [facility] SKIN MEDICAL IMAGING ASS L291ZFB STRAIN 01-22-2017 [facility] P NECK LEVL INIT ENC Z9884 BARIATRIC 01-21-2017 [facility] SURGERY [facility] STATUS INC R200 ANESTHESIA 01-20-2017 [facility] OF SKIN [facility] INC R51 HEADACHE 01-20-2017 [facility] INC [id number] STRAIN 01-16-2017 [facility] MUSCLE & PHYSICIANS, TENDON UNS PLLC WALL THORAX INIT ENC M797 FIBROMYALGI 01-11-2017 [facility] H[facility] V42495 OTHER LONG 01-11-2017 [facility] DRUG THERAPY Z882 ALLERGY 01-11-2017 [facility] S STATUS Z886 ALLERGY 01-11-2017 [facility] AGENT STATUS Z888 ALLERGY 01-11-2017 [facility] STATUS OTH [facility] RX MEDS & HOSPITAL BIOLOG [facility] H9203 OTALGIA 01-10-2017 [facility] BILATERAL [facility] INC I209 ANGINA 01-10-2017 [facility]ECT[facility]IS [facility] UNSPECIFIED INC R071 CHEST PAIN 01-07-2017 [facility] INTERNAL MED J069 ACUTE UPPER 01-04-2017 [facility] RESPIRATORY INC INFECTION UNSPECIFIED Z720 TOBACCO USE 01-04-2017 [facility] INC [id number] MUSCLE 12-25-2016 [place] SPASM OF [facility] BACK INC R1013 EPIGASTRIC 12-25-2016 [facility] PAIN [place] INTERNAL MED R4702 DYSPHASIA 12-25-2016 [facility] [place] INTERNAL MED B078 OTHER VIRAL 12-23-2016 [facility] W[facility] K219 GASTRO-ESOP 12-23-2016 [facility]UX [facility]ASE [facility] WITHOUT ESOPHAGITIS 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 12-23-2016 [facility] ESOPHAGUS [place] K30 FUNCTIONAL 12-23-2016 [facility] DYSPEPSIA HEALTH [facility] L218 OTHER 12-23-2016 [facility] SEBORRHEIC DERMATITIS L538 OTHER 12-23-2016 [facility] SPECIFIED ERYTHEMATOU S CONDITIONS R208 OTHER 12-23-2016 [facility] DISTURBANCE S OF SKIN SENSATION R238 OTHER SKIN 12-23-2016 [facility] CHANGES K5903 DRUG 12-17-2016 [facility] INDUCED [facility] CONSTIPATIO INC N [id number] ADVERSE 12-17-2016 [place] EFFECT [facility] OTHER INC OPIOIDS INITIAL ENCOUNTER R1319 OTHER 12-13-2016 [facility] DYSPHAGIA MEM [facility]OS[facility] INC K910 VOMITING 12-12-2016 [place] FOLLOWING [facility] GASTROINTES INC TINAL SURGERY R609 EDEMA 12-12-2016 [place] UNSPECIFIED MEM HOS[facility] INC E6601 MORBID 12-11-2016 [facility] SEVERE HEALTH OBESITY DUE [place] TO EXCESS CALORIES E7800 PURE 12-11-2016 [facility] HYPERCHOLES HEALTH TEROLEMIA MONALISA UNSPECIFIED N393 STRESS 12-11-2016 [facility] INCONTINENC HEALTH E FEMALE MONALISA MALE Z903 ACQUIRED 12-11-2016 [facility] ABSENCE OF HEALTH STOMACH MONALISA X66989 ENCOUNTER 12-05-2016 [facility] FOR OTHER HEALTH PREPROCEDUR MEDICAL AL GROUP EXAMINATION K210 GASTRO-ESOP 11-22-2016 [facility] HAGEAL PHYSICIANS, REFLUX PLLC DISEASE W/ ESOPHAGITIS K625 HEMORRHAGE 11-19-2016 [facility] OF AN[place] AND [place] RECTUM INTERNAL MED M546 PAIN IN 11-08-2016 [facility] THORACIC PHYSICIANS, SPINE PLLC Z40381 PAIN IN 10-14-2016 [place] UNSPECIFIED MEDICAL HIP IMAGING ASS M533 SACROCOCCYG 10-14-2016 [place] EAL MEDICAL DISORDERS IMAGING ASS NEC L072FHE CONTUSION 10-14-2016 [facility] LOWER BACK PHYSICIANS, & PELVIS PLLC INITIAL ENCOUNTER E1530BC UNSPECIFIED 10-14-2016 [place] INJURY MEDICAL LOWER BACK IMAGING ASS INITIAL ENCOUNTER M8375ZA UNSPECIFIED 10-14-2016 [place] INJURY OF MEDICAL PELVIS IMAGING ASS INITIAL ENCOUNTER H3581 RETINAL 10-11-2016 [facility] ANG EDEMA R040 EPISTAXIS 10-10-2016 [facility] INTERNAL MED E6609 OTHER 10-08-2016 [facility] OBESITY DUE BARIATRIC TO EXCESS SURGICAL CALORIES R109 UNSPECIFIED 10-08-2016 [facility] ABDOMINAL BARIATRIC PAIN SURGICAL J3489 OTHER 10-06-2016 [facility] SPECIFIED PHYSICIANS, DISORDERS PLLC NOSE AND NASAL SINUSES R05 COUGH 10-06-2016 [facility] R0981 NASAL 10-06-2016 [place] CONGESTION MEDICAL IMAGING ASS J320 CHRONIC 10-03-2016 [facility] SINUSITIS V10858 POSTPROCEDU 10-03-2016 [place] RAL HEMORR MEM [facility]OS[facility] DS INC ORGAN/STRUC FLW DS PROC E785 HYPERLIPIDE 10-02-2016 [facility] UNSPECIFIED MEDICAL G V46457 ENCOUNTER 09-28-2016 [facility] P AL CARIOVASCUL AR EXAM Y97369 ENCOUNTER 09-28-2016 [facility] P AL LABORATORY EXAM A6004 HERPESVIRAL 09-27-2016 [facility] PHYSICIANS VULVOVAGINI GROUP TIS N760 ACUTE 09-27-2016 [facility] VAGINITIS PHYSICIANS GROUP [id number] CONCUSSION 09-21-2016 [place] WITHOUT LOC [facility] INITIAL INC ENCOUNTER S9830US UNSPECIFIED 09-21-2016 [place] INJURY OF MEDICAL HEAD IMAGING ASS INITIAL ENCOUNTER H6903 PATULOUS 09-19-2016 [facility] TUBE BILATERAL R86486 UNSPECIFIED 09-18-2016 [facility] PHYSICIANS OBSTRUCTION GROUP EUSTACHIAN TUBE BILAT J309 ALLERGIC 09-18-2016 [facility] RHINITIS PHYSICIANS UNSPECIFIED GROUP R42 DIZZINESS 09-18-2016 [facility] AND PHYSICIANS GIDDINESS GROUP R590 LOCALIZED 09-04-2016 [facility] P Z6834 BODY MASS 09-04-2016 [facility] INDEX BMI HEALTH 34.0-34.9 MEDICAL ADULT GROUP K5909 OTHER 09-03-2016 [facility] CONSTIPATIO GROUND N FAMILY CLINI R112 NAUSEA WITH 09-03-2016 [facility] VOMITING GROUND UNSPECIFIED FAMILY CLINI R748 ABNORMAL 09-03-2016 [facility] LEVELS OF GROUND OTHER SERUM FAMILY ENZYMES CLINI Z111 ENCOUNTER 09-02-2016 [facility] DEPT RESPIRATORY JAZZ TUBERCULOSI S M549 DORSALGIA 09-01-2016 [facility] UNSPECIFIED PHYSICIANS, PLLC R197 DIARRHEA 09-01-2016 [facility] UNSPECIFIED PHYSICIANS, PLLC O07028K ADVERSE 09-01-2016 [facility] P SRI INITIAL ENCOUNTER Z60123 UNS PLACE 09-01-2016 [facility] NON [facility] P PLACE OF OCCUR EXT R195 OTHER FECAL 08-30-2016 [facility] ABNORMALITI INC ES Z202 CONTACT 08-30-2016 [facility] WITH DISTRICT EXPOSURE HLTH DEPT INFECT JAZZ SEXUAL MODE TRANSMS Z23 ENCOUNTER 08-30-2016 [facility] FOR DISTRICT IMMUNIZATIO HLTH DEPT N JAZZ R5381 OTHER 08-29-2016 [facility] MALAISE PHYSICIANS GROUP R9431 ABNORMAL 08-29-2016 [facility] ELECTROCARD PHYSICIANS IOGRAM GROUP Z8249 FAMILY HX 08-23-2016 [facility] ISCHEMIC PHYSICIANS HRT DZ OTH GROUP DZ CIRC SYSTEM C90594 LYMPHOCYTOP 08-21-2016 [facility] ENIA [facility] INC J3089 OTHER 08-21-2016 [facility] RHINITIS [place] J4520 MILD 08-21-2016 [facility] INTERMITTEN PARTNERS OF T ASTHMA [place] UNCOMPLICAT ED Q537WYW OTHER 08-21-2016 [facility] ADVERSE PARTNERS OF FOOD [place] REACTIONS NEC SUBSEQUENT ENC M791 MYALGIA 08-17-2016 [facility] PHYSICIANS, PLLC M898X9 OTHER 08-12-2016 [place] SPECIFIED MEDICAL DISORDERS IMAGING ASS BONE UNSPECIFIED [...] DOG HAIR & DANDER R591 GENERALIZED 08-05-2016 [facility] P I208 OTHER FORMS 08-02-[address] [place] [address] [facility] P U12753 PAIN IN 08-02-2016 [place] RIGHT KNEE MEDICAL IMAGING ASS R55 SYNCOPE AND 08-02-2016 [facility] COLLAPSE PHYSICIANS, PLLC A655KKI UNSPECIFIED 08-02-2016 [place] INJURY OF MEDICAL NECK IMAGING ASS INITIAL ENCOUNTER L3175SW UNS INJURY 08-02-2016 [place] RT LOWER MEDICAL LEG INITIAL IMAGING ASS ENCOUNTER N281 CYST OF 08-01-2016 [facility] P V96670 OTHER 07-31-2016 [facility] EQUIPMENT INC R209 UNSPECIFIED 07-29-2016 [facility] PHYSICIANS, DISTURBANCE PLLC S OF SKIN SENSATION K589 IRRITABLE 07-24-2016 [facility] BOWEL PHYSICIANS SYNDROME GROUP WITHOUT DIARRHEA R102 PELVIC AND 07-24-2016 [facility] PERINEAL PHYSICIANS PAIN GROUP N831 CORPUS 07-22-2016 [facility] LUTEUM CYST PHYSICIANS GROUP N920 EXCESS & 07-22-2016 [facility] FREQUENT PHYSICIANS MENSTRUATIO GROUP N W/REGULAR CYCLE E05321T STRAIN UNS 07-22-2016 [facility] MUS[facility] FASC PHYSICIANS, TEND THIGH PLLC RT INITIAL ENC Z7251 HIGH RISK 07-22-2016 [facility] BEHAVIOR INC R12 HEARTBURN 07-18-2016 [facility] H938X9 OTHER 07-17-2016 [facility] SPECIFIED PHYSICIANS DISORDERS GROUP OF EAR UNSPECIFIED EAR J302 OTHER 07-17-2016 [facility] SEASONAL PHYSICIANS ALLERGIC GROUP RHINITIS R1310 DYSPHAGIA 07-13-2016 [place] UNSPECIFIED MEDICAL IMAGING ASS E2451QU LACERATION 07-13-2016 [facility] W/O FOREIGN PHYSICIANS, BODY SCALP PLLC INITIAL ENC G8867ST SPRAIN 07-13-2016 [facility] UNSPECIFIED PHYSICIANS, SITE LT PLLC KNEE INITIAL ENCNTR R6889 OTHER 07-10-2016 [facility] SYMPTOMS HOSPITA AND SIGNS E780 PURE 07-09-2016 [facility] HYPERCHOLES BARIATRIC TEROLEMIA SURGICAL E876 HYPOKALEMIA 07-09-2016 [facility] P Z1231 ENCOUNTER 07-08-2016 [place] SCREENING MEDICAL MAMMO MALIG IMAGING ASS NEOPLASM BREAST H6990 UNSPECIFIED 07-07-2016 [facility] TUBE PHYS PSC DISORDER UNS EAR H938X3 OTHER 07-07-2016 [facility] SPECIFIED HEALTH DISORDERS [place] OF EAR BILATERAL M5432 SCIATICA 07-07-2016 [facility] LEFT SIDE EMERGENCY PHYS PSC R1010 UPPER 07-05-2016 [facility] ABDOMINAL PHYSICIANS, PAIN PLLC UNSPECIFIED R1084 GENERALIZED 06-29-2016 [facility] ABDOMINAL PHYSICIANS, PAIN PLLC I880 NONSPECIFIC 06-27-2016 [facility] MESENTERIC PHYSICIANS, PLLC LYMPHADENIT IS R100 ACUTE 06-27-2016 [facility] ABDOMEN AMBULANCE SERVICE R1031 RIGHT LOWER 06-26-2016 [facility] PAIN PHYS V36248 RIGHT LOWER 06-26-2016 [facility] ABDOMINAL HOSPITA TENDERNESS N200 CALCULUS OF 06-24-2016 [place] KIDNEY MEDICAL IMAGING ASS 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 06-11-2016 [facility] S NOT ELSEWHERE CLASSIFIED M5386 OTHER 06-11-2016 [facility] SPECIFIED DORSOPATHIE S LUMBAR REGION D225 MELANOCYTIC 05-23-2016 [facility] NEVI OF TRUNK D2272 MELANOCYTIC 05-23-2016 [facility] NEVI LEFT LOWER LIMB INCLUDING HIP 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 05-23-2016 [facility] UNCERTAIN BEHAVIOR OF SKIN L400 PSORIASIS 05-23-2016 [facility] VULGARIS L408 OTHER 05-23-2016 [facility] L578 OT SKN 05-23-2016 [facility] CHANGES D/T CHRN EXPS TO NONIONIZING RAD R9439 ABNORMAL 04-08-2016 [facility] RESULT OT HEALTH CARDIOVASCU KEY LARGO LR FUNCTION STUDY I340 NONRHEUMATI 04-04-2016 [place] [facility] MITRAL SERV [facility] INSUFFICIEN CY I351 NONRHEUMATI 04-04-2016 [place] [facility] AORTIC SERV [facility] INSUFFICIEN CY I361 NONRHEUMATI 04-04-2016 [place] [facility] TRICUSPID SERV [facility] INSUFFICIEN CY H524 PRESBYOPIA 03-29-2016 [facility] CHRISTEL M2550 PAIN IN 03-26-2016 [facility] UNSPECIFIED MAI JOINT HOLDINGS D509 IRON 03-20-2016 [facility] DEFICIENCY [facility] ANEMIA INC UNSPECIFIED M7521 BICIPITAL 03-19-2016 [facility] TENDINITIS VALLEY RIGHT INTERNAL SHOULDER MED B88543 ATYP SQ 03-13-2016 [facility] CELLS UNDET LLC SIGNIFICANC E CYTOL SMER CERV Y79427 ENCOUNTER 03-13-2016 [facility], LOOM CONTROL CHAIN BUILDER EXAM LLC GENERAL RTN W/ABNORMAL FIND Q98224 ENCOUNTER 03-13-2016 [facility] LOOM CONTROL CHAIN BUILDER EXAM PHYSICIANS GENERAL RTN GROUP W/O ABNORMAL FIND Z113 ENCOUNTER 03-13-2016 [facility], SCREEN LLC INFECTIONS SEXL MODE TRANSMISSN M778 OTHER 12-04-2015 [facility] ENTHESOPATH VALLEY IES NOT INTERNAL ELSEWHERE MED CLASSIFIED 29271 UNSPECIFIED 07-11-2015 [facility] VIRAL WARTS 2167 [...] SKIN 7020 ACTINIC 07-11-2015 [facility] KERATOSIS 89133 INFLAMED 07-11-2015 [facility] SEBORRHEIC KERATOSIS V700 ROUTINE 06-27-2015 [facility] DEPT [email or web address] FACL 43823 MORBID 06-20-2015 [facility] OBESITY BARIATRIC SURGICAL 63634 PAIN IN 06-20-2015 [facility] JOINT, SITE MAI HOLDINGS UNSPECIFIED 7823 EDEMA 06-20-2015 [facility] MAI HOLDINGS 44514 OTHER 06-20-2015 [facility] DYSPNEA AND [facility] HOLDINGS RESPIRATORY ABNORMALITI ES 7871 HEARTBURN 06-20-2015 [facility] MAI HOLDINGS 7904 NONSPEC 06-20-2015 [facility] ELEVATION BARIATRIC OF LEVELS SURGICAL OF TRANSAMINAS E/LDH V4586 BARIATRIC 06-20-2015 [facility] SURGERY BARIATRIC STATUS SURGICAL V7612 OTHER 06-19-2015 [place] SCREENING MEDICAL MAMMOGRAM IMAGING ASS 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 MED 2689 UNSPECIFIED 06-12-2015 [facility] VITAMIN D [place] DEFICIENCY INTERNAL MED 5718 OTHER 06-12-2015 [facility] CHRONIC VALLEY NONALCOHOLI INTERNAL C LIVER MED DISEASE 7905 OTHER 06-12-2015 [facility] NONSPECIFIC [place] ABNORMAL INTERNAL SERUM MED ENZYME LEVELS 31954 UNSPEC 05-09-2015 [facility] DISORDERS PHYSICIANS BURSAE&TEND GROUP ONS SHOULDER REGION 7262 OTHER 05-09-2015 [facility] AFFECTIONS PHYSICIANS OF SHOULDER GROUP REGION NEC 87028 OBESITY, 05-04-2015 [facility] UNSPECIFIED OLOGY AND HEPATOL 3674 PRESBYOPIA 04-28-2015 [place] 46599 CHEST PAIN 04-28-2015 [facility] UNSPECIFIED HEALTH MEDICAL GROUP 91790 ABDOMINAL 04-25-2015 [facility], COMMUNTIY UNSPECIFIED HOSPITA SITE 4019 UNSPECIFIED 04-16-2015 [facility] ESSENTIAL [facility] HYPERTENSIO INC N 5990 URINARY 04-16-2015 [facility] TRACT PHYSICIANS, INFECTION [facility] SITE NOT SPECIFIED 7948 NONSPECIFIC 04-16-2015 [facility] ABNORMAL [facility] RESULTS INC LIVR FUNCTION STUDY 5739 UNSPECIFIED 04-14-2015 [facility] [place] DISORDER RADIOLOGY OF LIVER 7906 OTHER 04-14-2015 [facility] ABNORMAL [facility]TI[facility] BLOOD HOSPITA CHEMISTRY 5939 UNSPECIFIED 04-06-2015 [place] DISORDER MEDICAL OF KIDNEY IMAGING ASS AND URETER 7891 HEPATOMEGAL 04-06-2015 [facility] Y OLOGY AND HEPATOL V140 PERSONAL 04-05-2015 [facility] ALLERGY TO HOSPITAL P PENICILLIN 72061 ABDOMINAL 04-03-2015 [facility] HUBER PAIN, GENERALIZED 5758 OTHER 04-01-2015 [facility] SPECIFIED [facility] DISORDER OF HOSPITAL P GALLBLADDER 34477 OTHER 04-01-2015 [place] SPECIFIED [facility]ICAL DISORDER OF IMAGING ASS KIDNEY AND URETER 94657 ABDOMINAL 04-01-2015 [facility] PAIN RIGHT MEDICAL UPPER IMAGING ASS QUADRANT 75553 ABDOMINAL 04-01-2015 [place], [facility] P 7295 PAIN IN 03-29-2015 [facility] TISSUES OF HOSPITA LIMB V4589 OTHER 03-29-2015 [facility] L STATUS HOSPITA OTHER 17066 OTHER 03-24-2015 [facility] FATIGUE HOSPITA V6700 FOLLOW-UP 03-21-2015 [facility] [place] EXAMINATION RADIOLOGY FOLLOWING UNSPEC SURGERY 51715 ESOPHAGEAL 03-20-2015 [place] [facility] PS 6256 FEMALE 03-20-2015 [facility] INCONTINENC HOSPITA E 32929 PAIN IN 03-20-2015 [facility] JOINT, BARIATRIC MULTIPLE SURGICAL SITES 17642 DIASTASIS 03-20-2015 [facility] OF MUSCLE [facility] HOSPITA 7892 SPLENOMEGAL 03-20-2015 [facility] Y [facility] H[facility]PITA V8543 BODY MASS 03-20-2015 [facility] INDEX [facility] 50.0-59.9 HOSPITA ADULT 2639 UNSPECIFIED 03-14-2015 [facility] PROTEIN-[place] N [address] MIGRAINE 03-07-2015 [facility] UNSP W/O BARIATRIC 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 MIGRAINOSUS 50417 OTHER 03-07-2015 [facility] URINARY BARIATRIC INCONTINENC SURGICAL E 6929 CONTACT 03-06-2015 [facility] DERMATITIS& OTHER [place] DUE UNSPEC CAUSE 6822 CELLULITIS 03-02-2015 [facility] [facility] P V148 PERSONAL 03-02-2015 [facility] P SPEC MEDICINAL AGTS V571 OTHER 02-22-2015 [facility] THERAPY INC 2724 OTHER AND 02-20-2015 [facility] UNSPECIFIED [facility] HOSPITA HYPERLIPIDE LILIANE 7245 UNSPECIFIED 02-20-2015 [facility] BACKACHE [facility] HOSPITA V7283 OTHER 02-20-2015 [facility] SPECIF[facility] PRE-OPERATI HOSPITA VE EXAMINATION 2875 UNSPECIFIED 02-15-2015 [facility] P PENIA 7932 NONSPC ABN 02-10-2015 [place] [facility]&OTH [facility] EXAM OTH INTRTHOR ORGN V7282 PRE-OPERATI 02-10-2015 [place] [facility] RESPIRATORY FOUNDATION EXAMINATION 5930 NEPHROPTOSI 02-09-2015 [facility] P 7802 SYNCOPE AND 02-01-2015 [facility] MED[facility] G 4139 OTHER AND 01-18-2015 [facility] P PECT[place]IS 14152 SHORTNESS 01-18-2015 [facility] MEDICAL IMAGING ASS 68114 OTHER CHEST 01-18-[address] [place] [address] [facility] P 78687 OSTEOARTHRO 12-30-2014 [facility] S INVLV MX SITES [place]C GEN 31563 PAIN IN 11-09-2014 [place] [facility]OULD[facility] REGION V5832 ENCOUNTER 11-09-2014 [facility] P 37834 PILAR CYST 11-02-2014 [facility] 45956 UNSPECIFIED 10-06-2014 [facility] IN CCE & UNS SITE 7840 HEADACHE 10-06-2014 [facility] 80166 ATROPHIC 09-16-2014 [facility] MENTION OF HEMORRHAGE 05650 OTHER SPEC 09-16-2014 [facility] WITHOUT MENTION HEMORRHAGE 53052 DYSPHAGIA 09-16-2014 [place] UNSPECIFIED ANESTHESIA GROUP PS 6869 UNSPEC 08-17-2014 [facility] LOCAL INFECTION SKIN&SUBCUT ANEOUS TISSUE V7284 UNSPECIFIED 08-09-2014 [facility] PRE-OPERATI INC VE EXAMINATION 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 RESPIRATION V771 SCREENING 05-24-2014 [facility] MELLITUS 470 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 4779 ALLERGIC 03-17-2014 [facility] RHINITIS CAUSE UNSPECIFIED 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 01-10-2014 [facility] MAXILLARY SINUSITIS V0481 NEED 01-06-2009 [facility] CENTRAL VACCINATION BANK ACCT &INOCULATIO N FLU 31266 PAIN IN 01-04-2009 [place] [facility] THIGH 03592 DISPLCMT 01-04-2009 [place] LUMBAR MEDICAL INTERVERT 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 8460 SPRAIN AND 01-04-2009 [facility] STR[facility] OF [employer] SystemsACRAL ObserveIT 8472 LUMBAR 01-04-2009 [facility] INC 22225 CONTUSION 01-04-2009 [facility] BACK [place] 36519 CONTUSION 01-04-2009 [facility] BUTTOCK [facility] E8490 PLACE OF 01-04-2009 [place] OCC[facility]RENCE, MEDICAL HOME IMAGING ASSOCIATES E8859 FALL FROM 01-04-2009 [place] OTHER MEDICAL SLIPPING IMAGING TRIPPING OR ASSOCIATES STUMBLING Medications Na ND Rx Da Fi Fi [...] G CY CA PS UL E OM 62 03 04 60 30 00 CL Ac EP 17 -2 -2 .0 00 IN ti RA 50 9- 1- 00 00 IC ve ZO 13 20 20 41 LE 64 17 17 68 PH [address] MA CY 40 MG CA PS UL E RA 68 03 04 60 30 00 CL Ac NI 46 -2 -2 .0 00 IN ti TI 20 9- 1- 00 00 IC ve DI 24 20 20 42 NE 80 17 17 65 PH 5 91 AR 15 MA 0 CY MG TA BL ET LO 45 03 04 30 30 00 CL Ac RA 80 -2 -1 .0 00 IN ti TA 20 2- 4- 00 00 IC ve DI 65 20 20 42 NE 08 17 17 35 PH 7 22 AR 10 MA CY MG TA BL ET RI 13 03 04 30 30 00 CL Ac SP 66 -2 -1 .0 00 IN ti ER 80 2- 4- 00 00 IC ve ID 03 20 20 42 ON 66 17 17 35 PH E 0 23 AR 0. MA 5 CY MG TA BL ET 64 03 04 4. 28 00 CL Ac T 38 -2 -1 00 00 IN ti D2 00 2- 4- 0 00 IC ve 73 20 20 42 1. 70 17 17 35 PH 25 6 24 AR MA MG CY (5 0, 00 0 UN IT ) MO 29 03 04 30 30 00 CL Ac NT 30 -2 -1 .0 00 IN ti EL 00 2- 4- 00 00 IC ve UK 22 20 20 41 01 17 17 09 PH T 0 31 AR SO MA D CY 10 MG TA BL ET VE 68 03 04 30 30 00 CL Ac NL 38 -2 -1 .0 00 IN ti AF 20 2- 4- 00 00 IC ve AX 03 20 20 42 IN 40 17 17 32 PH E 6 78 AR HC MA L CY ER 37 .5 MG CA P BU 00 03 04 90 30 00 CL Ac SP 37 -2 -1 .0 00 IN ti IR 81 2- 4- 00 00 IC ve ON 15 20 20 42 E 00 17 17 59 PH HC 1 22 AR L MA 10 CY MG TA BL ET CY 00 03 04 28 14 00 CL Ac CL 59 -2 -1 .0 00 IN ti OB 13 2- 4- 00 00 IC ve EN 25 20 20 42 ZA 60 17 17 59 PH KS 1 23 AR IN MA E CY 5 MG TA BL ET IS 62 03 04 30 30 00 CL Ac OS 17 -2 -1 .0 00 IN ti OR 50 1- 4- 00 00 IC ve BI 12 20 20 42 DE 83 17 17 58 PH 7 88 AR MN MA CY ER 30 MG TA BL ET CL 63 03 03 21 7 00 RI Ac IN 30 -0 -3 .0 00 TE ti DA 40 2- 1- 00 01 ve MY 69 20 20 17 AI CI 30 17 17 34 D N 1 69 PH HC AR L MA 30 CY 0 MG #3 93 CA 8 PS UL E HY 00 03 03 [address] 40 -0 -3 .0 00 TE ti OC 60 2- 1- 00 01 ve OD 12 20 20 17 AI ON 40 17 17 34 D -A 1 70 PH CE AR TA MA FL CY NO PH #3 93 7. 8 5- 32 5 OS 47 03 03 10 10 00 CL Ac EL 78 -0 -3 .0 00 IN ti TA 10 7- 1- 00 00 IC ve FL 47 20 20 42 01 17 17 44 PH R 3 26 AR PH MA OS CY 75 MG CA PS UL E ON 67 03 03 10 2 00 CL Ac DA 87 -0 -3 .0 00 IN ti NS 70 6- 1- 00 00 IC ve ET 16 20 20 42 RO 93 17 17 42 PH N 0 18 AR HC MA L CY 4 MG TA BL ET GA 45 03 03 90 30 00 CL Ac BA 96 -0 -3 .0 00 IN ti PE 30 6- 1- 00 00 IC ve NT 55 20 20 42 IN 55 17 17 42 PH 0 60 AR 10 MA 0 CY MG CA PS UL E KS 65 03 03 20 5 00 CL Ac OM 16 -0 -3 .0 00 IN ti ET 20 8- 1- 00 00 IC ve CARTY 74 20 20 42 ZI 51 17 17 45 PH NE 0 47 AR MA 12 CY .5 MG TA BL ET TI 60 03 03 20 7 00 CL Ac ZA 50 -0 -2 .0 00 IN ti NI 50 1- 4- 00 00 IC ve DI 25 20 20 42 NE 20 17 17 39 PH 2 18 AR HC MA L CY 4 MG TA BL ET ET 62 03 03 20 10 00 CL Ac OD 55 -0 -2 .0 00 IN ti OL 90 1- 4- 00 00 IC ve AC 25 20 20 42 00 17 17 39 PH 20 1 19 AR 0 MA MG CY CA PS UL E VE 68 02 03 30 30 00 CL Ac NL 38 -2 -2 .0 00 IN ti AF 20 3- 4- 00 00 IC ve AX 03 20 20 42 IN 40 17 17 32 PH E 6 78 AR HC MA L CY ER 37 .5 MG CA P 64 02 03 4. 28 00 CL Ac T 38 -2 -2 00 00 IN ti D2 00 4- 4- 0 00 IC ve 73 20 20 41 1. 70 17 17 47 PH 25 6 11 AR MA MG CY (5 0, 00 0 UN IT ) LI 00 02 03 30 30 00 CL Ac NZ 45 -2 -2 .0 00 IN ti ES 61 4- 4- 00 00 IC ve S 20 20 20 41 14 13 17 17 04 PH 5 0 71 AR MC MA G CY CA PS UL E MO 00 02 03 30 30 00 CL Ac NT 60 -2 -2 .0 00 IN ti EL 34 4- 4- 00 00 IC ve UK 65 20 20 41 53 17 17 09 PH T 2 31 AR SO MA D CY 10 MG TA BL ET FL 50 02 03 16 30 00 CL Ac UT 38 -2 -2 .0 00 IN ti IC 30 4- 4- 00 00 IC ve 70 20 20 41 ON 01 17 17 53 PH E 6 48 AR KS MA OP CY 50 MC G SP RA Y RI 13 02 03 30 30 00 CL Ac SP 66 -2 -2 .0 00 IN ti ER 80 4- 4- 00 00 IC ve ID 03 20 20 42 ON 66 17 17 32 PH E 0 44 AR 0. MA 5 CY MG TA BL ET LO 45 02 03 30 30 00 CL Ac RA 80 -2 -2 .0 00 IN ti TA 20 4- 4- 00 00 IC ve DI 65 20 20 41 NE 08 17 17 74 PH 7 07 AR 10 MA CY MG TA BL ET RA 00 02 03 60 30 00 CL Ac NI 78 -2 -2 .0 00 IN ti TI 11 6- 4- 00 00 IC ve DI 88 20 20 42 NE 31 17 17 08 PH 0 96 AR 15 MA 0 CY MG TA BL ET BU 00 02 03 90 30 00 CL Ac SP 37 -2 -2 .0 00 IN ti IR 81 6- 4- 00 00 IC ve ON 15 20 20 42 E 00 17 17 08 PH HC 1 76 AR L MA 10 CY MG TA BL ET CL 00 02 03 50 14 00 CL Ac OB 47 -2 -2 .0 00 IN ti ET 20 6- 4- 00 00 IC ve 40 20 20 42 OL 25 17 17 05 PH 0 72 AR 0. MA 05 CY % SO ROSS TI ON OM 62 02 03 60 30 00 CL Ac EP 17 -2 -2 .0 00 IN ti RA 50 6- 4- 00 00 IC ve ZO 13 20 20 41 LE 64 17 17 68 PH [address] MA CY 40 MG CA PS UL E DI 16 02 03 30 15 00 WA Ac CL 57 -1 -1 .0 00 L- ti OF 10 8- 7- 00 07 MA ve EN 20 20 20 39 RT AC 15 17 17 34 0 69 PH SO AR D MA EC CY 75 #4 93 MG TA B TI 55 02 03 20 7 00 WA Ac ZA 11 -1 -1 .0 00 L- ti NI 10 8- 7- 00 07 MA ve DI 18 20 20 39 RT NE 01 17 17 34 5 68 PH HC AR L MA 4 CY MG #4 TA 93 BL ET CY 00 02 03 28 14 00 CL Ac CL 59 -2 -1 .0 00 IN ti OB 13 1- 7- 00 00 IC ve EN 25 20 20 42 ZA 60 17 17 30 PH KS 1 05 AR IN MA E CY 5 MG TA BL ET AZ 50 02 03 6. 5 00 RI Ac IT 11 -1 -1 00 00 TE ti HR 10 2- 0- 0 01 ve OM 78 20 20 17 AI YC 76 17 17 07 D IN 6 88 PH AR 25 MA 0 CY MG #3 TA 93 BL 8 ET KS 59 02 03 10 5 00 RI Ac ED 74 -1 -1 .0 00 TE ti NI 60 2- 0- 00 01 ve SO 17 20 20 17 AI NE 50 17 17 07 D 6 89 PH 20 AR MA MG CY TA #3 BL 93 ET 8 TE 51 02 03 20 3 00 CL Ac RC 67 -1 -1 .0 00 IN ti ON 21 0- 0- 00 00 IC ve AZ 30 20 20 41 OL 20 17 17 24 PH E 0 65 AR 0. MA 8% CY CR EA M VE 68 02 03 14 14 00 CL Ac NL 38 -0 -0 .0 00 IN ti AF 20 7- 3- 00 00 IC ve AX 03 20 20 42 IN 40 17 17 15 PH E 6 16 AR HC MA L CY ER 37 .5 MG CA P CL 50 01 03 50 14 00 CL Ac OB 38 -3 -0 .0 00 IN ti ET 30 0- 3- 00 00 IC ve 26 20 20 42 OL 65 17 17 05 PH 0 72 AR 0. MA 05 CY % SO ROSS TI ON CY 00 02 02 14 7 00 CL Ac CL 59 -0 -2 .0 00 IN ti OB 15 1- 4- 00 00 IC ve EN 65 20 20 42 ZA 81 17 17 08 PH KS 0 66 AR IN MA E CY 10 MG TA BL ET BU 00 02 02 90 30 00 CL Ac SP 37 -0 -2 .0 00 IN ti IR 81 1- 4- 00 00 IC ve ON 15 20 20 42 E 00 17 17 08 PH HC 1 76 AR L MA 10 CY MG TA BL ET RA 11 01 02 10 5 00 RI Ac 82 -2 -2 .0 00 TE ti BI 23 4- 4- 00 01 ve SA 34 20 20 16 AI CO 07 17 17 83 D DY 0 27 PH L AR EC MA 5 CY MG #3 93 TA 8 BL ET RA 11 01 02 10 5 00 RI Ac 82 -2 -2 .0 00 TE ti CO 23 4- 4- 00 01 ve L- 16 20 20 16 AI RI 50 17 17 83 D TE 0 28 PH AR 10 MA 0 CY MG #3 CA 93 PS 8 UL E AC 46 01 02 60 30 00 CL Ac ID 03 -2 -2 .0 00 IN ti 60 5- 4- 00 00 IC ve RE 00 20 20 41 DU 71 17 17 76 PH CE 2 22 AR R MA 75 CY MG TA BL ET RI 13 01 02 30 30 00 CL Ac SP 66 -2 -2 .0 00 IN ti ER 80 5- 4- 00 00 IC ve ID 03 20 20 41 ON 66 17 17 74 PH E 0 06 AR 0. MA 5 CY MG TA BL ET OM 60 01 02 30 30 00 CL Ac EP 50 -2 -2 .0 00 IN ti RA 50 0- 4- 00 00 IC ve ZO 14 20 20 41 LE 60 17 17 68 PH [address] MA CY 40 MG CA PS UL E LI 00 01 02 30 30 00 CL Ac NZ 45 -2 -2 .0 00 IN ti ES 61 5- 4- 00 00 IC ve S 20 20 20 41 14 13 17 17 04 PH 5 0 71 AR MC MA G CY CA PS UL E MO 16 01 02 30 30 00 CL Ac NT 72 -2 -2 .0 00 IN ti EL 90 5- 4- 00 00 IC ve UK 11 20 20 41 91 17 17 09 PH T 5 31 AR SO MA D CY 10 MG TA BL ET FL 00 01 02 16 30 00 CL Ac UT 05 -2 -2 .0 00 IN ti IC 43 0- 4- 00 00 IC ve 27 20 20 41 ON 09 17 17 53 PH E 9 48 AR KS MA OP CY 50 MC G SP RA Y 64 01 02 4. 28 00 CL Ac T 38 -2 -2 00 00 IN ti D2 00 5- 4- 0 00 IC ve 73 20 20 41 1. 70 17 17 47 PH 25 6 11 AR MA MG CY (5 0, 00 0 UN IT ) HY 00 01 02 [address] 40 -1 -[address] ti OC 60 8- 7- 00 00 SI ve OD 12 20 20 47 DE ON 40 17 17 29 -A 5 25 PH CE AR TA MA FL CY NO PH OF CY 7. NT [...] CY YC OL 33 50 PO WD BU 00 12 01 90 30 00 CL Ac SP 37 -2 -2 .0 00 IN ti IR 81 7- 7- 00 00 IC ve ON 15 20 20 41 E 00 16 17 47 PH HC 1 00 AR L MA 10 CY MG TA BL ET LO 45 12 01 30 30 00 CL Ac RA 80 -2 -2 .0 00 IN ti TA 20 7- 7- 00 00 IC ve DI 65 20 20 41 NE 08 16 17 46 PH 7 99 AR 10 MA CY MG TA BL ET RI 13 12 01 30 30 00 CL Ac SP 66 -2 -2 .0 00 IN ti ER 80 7- 7- 00 00 IC ve ID 03 20 20 41 ON 66 16 17 12 PH E 0 39 AR 0. MA 5 CY MG TA BL ET NA 68 12 01 20 10 00 CL Ac KS 46 -2 -2 .0 00 IN ti OX 20 7- 7- 00 00 IC ve EN 19 20 20 41 00 16 17 74 PH 50 5 01 AR 0 MA MG CY TA BL ET OM 60 12 01 30 30 00 CL Ac EP 50 -2 -2 .0 00 IN ti RA 50 3- 7- 00 00 IC ve ZO 14 20 20 41 LE 60 16 17 68 PH [address] MA CY 40 MG CA PS UL E LI 00 12 01 30 30 00 CL Ac NZ 45 -2 -2 .0 00 IN ti ES 61 7- 7- 00 00 IC ve S 20 20 20 41 14 13 16 17 04 PH 5 0 71 AR MC MA G CY CA PS UL E MO 16 12 01 30 30 00 CL Ac NT 72 -2 -2 .0 00 IN ti EL 90 7- 7- 00 00 IC ve UK 11 20 20 41 91 16 17 09 PH T 5 31 AR SO MA D CY 10 MG TA BL ET 51 12 01 4. 28 00 CL Ac T 99 -2 -2 00 00 IN ti D2 10 7- 7- 0 00 IC ve 60 20 20 41 1. 40 16 17 47 PH 25 1 11 AR MA MG CY (5 0, 00 0 UN IT ) IM 45 12 01 24 24 00 CL Ac IQ 80 -2 -2 .0 00 IN ti UI 20 0- 0- 00 00 IC ve MO 36 20 20 41 D 86 16 17 68 PH 5% 2 09 AR MA CR CY EA M PA CK ET NA 68 12 01 14 7 00 CL Ac KS 46 -1 -2 .0 00 IN ti [...] 0 CY MG CA PS UL E FL 00 12 01 16 30 00 CL Ac UT 05 -0 -0 .0 00 IN ti IC 43 5- 9- 00 00 IC ve 27 20 20 41 ON 09 16 17 53 PH E 9 48 AR KS MA OP CY 50 MC G SP RA Y ME 59 02 02 00 21 6 CL 18 GA Ac TH 74 -1 -2 .0 IN 75 IN ti YL 60 2- 6- 00 IC 10 EY ve KS 00 20 20 ED 10 09 09 PH FL NI 3 AR CH SO MA AE LO CY L NE S 4 MG DO SE PK CY 59 02 02 00 21 7 CL 18 GA Ac CL 74 -1 -2 .0 IN 75 IN ti OB 60 2- 6- 00 IC 11 EY ve EN 17 20 20 ZA 70 09 09 PH FL KS 6 AR CH IN MA AE E CY L 10 S MG TA BL ET 00 12 02 00 12 3 WA 44 WI Ac 40 -1 -1 .0 L- 73 CK ti 60 3- 2- 00 MA 93 ER ve 35 20 20 RT 0 80 08 09 JE 1 PH FF AR RE MA Y CY #5 91 ME 00 12 02 00 10 10 WA 70 WI Ac LO 37 -1 -1 .0 L- 05 CK ti XI 81 3- 2- 00 MA 70 ER ve CA 06 20 20 RT 6 M 60 08 09 JE 7. 1 PH FF 5 AR RE MG MA Y CY TA BL #5 ET 91 Immunization Name Date Route CVX Reacti Commen Provid Is Given on t er Refuse d TDAP [facility] No VACCIN [address] YRS/> HLTH IM DEPT JAZZ IIV3 [place] No VACCIN 2008 ON CO E [facility] 0.5 ML DOSAGE IM USE Procedures Procedure DOS Code Location Performer Comment ECG 84924 [facility] ROUTINE 7 PHYSICIAN ECG S GROUP W/LEAST 12 LDS I&R ONLY APPLICATI 59517 [facility] [facility]/> AREAS HOT/COLD PACKS APPL 14098 [place] [facility]/> AREAS INC INC TRACTION MECHANICA L APPL 83782 [facility] [facility]/> AREAS INC INC ELEC STIMJ UNATTENDE D APPL 62062 [place] [facility]/> AREAS INC INC ELEC STIMJ UNATTENDE D APPL 08087 [facility] [facility]/> AREAS INC INC TRACTION MECHANICA L APPLICATI 05072 [facility] INC INC 1/> AREAS HOT/COLD PACKS RADEX 17278 [place] [facility] ABDOMEN 7 MEDICAL COMPL IMAGING W/DCBTS&/ ASS ERC VIEWS ECG 54866 [facility] ROUTINE 7 PHYSICIAN ECG S GROUP W/LEAST 12 LDS I&R ONLY APPLICATI 09678 [place] [facility] MODALITY INC INC 1/> AREAS HOT/COLD PACKS APPL 77150 [place] [facility]/> AREAS INC INC TRACTION MECHANICA L APPL 99352 [place] [facility] 1/> AREAS INC INC ELEC STIMJ UNATTENDE D ECG 18416 [place] [facility] ECG INC INC W/LEAST 12 LDS TRCG ONLY W/O I&R APPL 92065 [place] [facility] MOD[facility]ITY [facility] 1/> AREAS INC INC ELEC STIMJ UNATTENDE D APPL 10928 [facility] [facility] 1/> AREAS INC INC TRACTION MECHANICA L APPLICATI 94669 [facility] MODALITY INC INC 1/> AREAS HOT/COLD PACKS APPLICATI 52241 [place] [facility] MODALITY INC INC 1/> AREAS HOT/COLD PACKS APPL 87171 [place] [facility]ITY [facility] 1/> AREAS INC INC ELEC STIMJ UNATTENDE D ECG 80470 [facility] ROUTINE 7 PHYSICIAN ECG S GROUP W/LEAST 12 LDS I&R ONLY THERAPEUT 05248 [facility] IC PX 1/> 7 [facility] AREAS INC INC EACH 15 MIN EXERCISES ECG 68501 [place] [facility] 7 [facility] ECG INC INC W/LEAST 12 LDS TRCG ONLY W/O I&R ECG 85733 [facility] [facility] ECG INC INC W/LEAST 12 LDS TRCG ONLY W/O I&R GROUND A0425 [facility] PER SERVICE SERVICE STATUTE MILE RADIOLOGI 96062 [facility] EXAM 7 [facility] CHEST 2 INC INC VIEWS FRONTAL&L ATERAL ECG 69498 [facility] ROUTINE 7 PHYSICIAN ECG S, PLLC W/LEAST 12 LDS I&R ONLY ORGANIC 70615 [facility] ACID 1 7 [facility] QUANTITAT [place] [address] [facility] PARATHORM 7 [place] [address] [facility] ZINC 7 [facility] BLOOD 38602 [facility] COUNT 7 [facility] COMPLETE INC INC AUTO&AUTO DIFRNTL WBC MRI 90603 [facility] SPINAL 7 CANAL ORTHOPAED LUMBAR ICS PSC W/[place] [address] [facility] FERRITIN 7 [place] [address] [facility] MAGNESIUM 7 [place] [address] [place] [facility] TROPONIN 7 [facility] QUANTITAT INC INC SABIHA CREATINE 04019 [place] [facility] KINASE 7 [facility] TOTAL INC INC PREALBUMI 83311 [facility] N 7 MAI MAI HOLDINGS HOLDINGS AMB A0427 [facility]ICE 7 AMBULANCE AMBULANCE ALS SERVICE SERVICE EMERGENCY TRANSPORT LEVEL 1 [place] [address] [facility] PHOSPHORU 7 [facility] [place] [address] [facility] THIAMINE- 7 [facility] VITAMIN HOLDINGS HOLDINGS B-1 25 41726 [facility] HYDROXY 7 [facility] INCLUDES HOLDINGS [place] [address] [facility] THYROID 7 [facility]I [facility] STIMULATI HOLDINGS [place] [address] [facility] TOCOPHERO 7 MAI MA[facility] L [place]PHA [place] [address] [facility] VITAMIN A 7 MAI [facility]I HOLDINGS HOLDINGS COMPREHEN 46475 [facility] [facility] SIVE 7 [facility] METABOLIC INC INC PANEL CREATINE 41439 [facility] [facility] KINASE MB 7 [facility] [place] [address] [facility] FOLIC 7 MAI MA[facility] [place] [address] [facility] IRON 7 MA[facility]INGS HOLDINGS APPLICATI 65867 [facility] MODALITY INC INC 1/> AREAS HOT/COLD PACKS APPL 31494 [facility] MODALITY 7 [facility] 1/> AREAS INC INC TRACTION MECHANICA L APPL 16710 [facility] [facility] MODALITY 7 [facility] 1/> AREAS INC INC ELEC STIMJ UNATTENDE D THERAPEUT 94672 [place] [facility] IC PX 1/> 7 [facility] AREAS INC INC EACH 15 MIN EXERCISES RADEX 26012 [place] [facility] SPINE 7 [place] LUMBOSACR ORTHOPAED AL 2/[address] [place] [address] [facility] CERVICAL 7 MEDICAL MEDICAL SPINE W/O IMAGING [place] [address] [place] [facility] HEAD/BRAI 7 MEDICAL N W/O IMAGING CONTRAST ASS MATERIAL ECG 69404 [facility] ROUTINE 7 [facility] W/LEAST P 12 LDS I&R ONLY ECG 27677 [place] [facility]INE [facility] ECG INC INC W/LEAST 12 LDS TRCG ONLY W/O I&R CYANOCOBA 12022 [place] [facility] LYUBOV 7 [facility] VITAMIN INC INC B-12 COLLECTIO 74903 [place] [facility] N VENOUS 7 [facility] BLOOD INC INC VENIPUNCT URE 25 61210 [place] [facility] HYDROXY 7 [facility] INCLUDES [place] [address] [place] [facility] FOLIC 7 [facility] ACID INC INC SERUM UNCLASSIF J3490 [facility] [facility] IED DRUGS 7 [facility] INC INC THERAPEUT 52014 [place] [facility] IC 7 [facility] PROPHYLAC INC INC TIC/DX INJECTION SUBQ/IM URNLS DIP 12447 [place] [facility] STICK/TAB INC INC LET REAGENT AUTO MICROSCOP Y UNCLASSIF J3490 [place] [facility] IED DRUGS 7 [facility] INC INC DESTRUCTI 14146 [place] [facility] BENIGN 7 LES[place] UP [place] [address] [facility] TRACT 7 [facility] W/WO DELAYED IMAGES W/KUB RADEX 39446 [place] [facility] ABD[facility]EN 1 7 MEDICAL IMAGING ANTEROPOS ASS TERIOR VIEW TX PROC G0238 [facility] [facility] IMPRV 7 [facility] RESP INC INC FUNCT NOT G0237 FCE-FCE 15MIN IV [address] [place] [facility] INFUSION 7 [facility] THERAPY/P INC INC ROPHYLAXI S /DX 1ST TO 1 HR BLOOD 53569 [facility] [facility] COUNT [facility] COMPLETE INC INC AUTO&AUTO DIFRNTL WBC COMPREHEN 91807 [facility] [facility] SIVE 7 [facility] METABOLIC INC INC PANEL RAD EXP G9500 [place] [facility] INDICES/E 7 MEDICAL XP TM & IMAGING NUMB ASS FLUORO IMAGES DOC RADEX 50415 [place] [facility] ESOPHAGUS 7 MEDICAL IMAGING ASS ANES 43133 [facility] INTRAPERI 7 [place] TONEAL ANESTHESI UPPER A ABDOMEN W/LAPS NOS INJECTION J1650 [facility]AL 7 [facility] ENOXAPARI [facility] N SODIUM 10 MG INJECTION J0330 [facility]ENTECOSTAL 7 [facility] SUCCINYLC [facility] HOLINE CHLORIDE UP TO 20 MG INJECTION J2405 [facility] PENTECOSTAL 7 [facility] ONDANSETR [facility] ON HCL PER 1 MG INJECTION J2704 [facility] PROPOFOL 7 [facility] 10 MG [facility] INJECTION J2710 [facility] PENTECOSTAL 7 [facility] NEOSTIGMI [facility] NE METHYLSUL FATE UP TO 0.5 MG INJECTION J3010 [facility] FENTANYL 7 [facility] CITRATE [facility] 0.1 MG LAPS RPR 77639 [facility] SANCHEZ PARAESPHG 7 [facility] L HRNA MEDICAL INCL GROUP FUNDPLSTY W/O MESH INJECTION J1100 [facility]AL 7 [facility] DEXAMETHO [facility] SONE SODIUM PHOSPHATE 1 MG INJECTION J1170 [facility] PENTECOSTAL 7 [facility] HYDROMORP [facility] KURTIS UP TO 4 MG COLLECTIO 90473 [facility] N VENOUS 7 [facility] BLOOD [facility] VENIPUNCT URE BLOOD 18563 [facility] COUNT 7 [facility] COMPLETE [facility] AUTOMATED GLUCOSE 27366 [facility] QUANTITAT 7 [facility] SABIHA BLOOD [facility] XCPT REAGENT STRIP HEMOGLOBI 20532 [facility] N 7 [facility] GLYCOSYLA [facility] LANEY A1C ECG 83006 [facility] ANNA ROUTINE 7 HEALTH ECG MEDICAL W/LEAST GROUP 12 LDS I&R ONLY ECG 86790 [facility] ROUTINE 7 [facility] ECG [facility] W/LEAST 12 LDS TRCG ONLY W/O I&R ECG 32102 [facility] [facility] ROUTINE 6 [facility] ECG INC INC W/LEAST 12 LDS TRCG ONLY W/O I&R ECG 31773 [facility] [facility] ROUTINE 6 [facility] W/LEAST P 12 LDS I&R ONLY RADEX 26380 [facility] ABDOMEN 6 MEDICAL MEDICAL COMPL IMAGING IMAGING W/DCBTS&/ ASS ASS ERC VIEWS RADIOLOGI 80124 [facility] [facility] C EXAM 6 [facility] CHEST 2 INC INC VIEWS FRONTAL&[place] [address] [place] [facility] INFUSION 6 [facility] THERAPY/P INC INC ROPHYLAXI S /DX 1ST TO 1 HR THERAPEUT 35892 [facility] [facility] IC 6 [facility] INJECTION INC INC IV PUSH EACH NEW DRUG BLOOD 97450 [facility] [facility] COUNT 6 [facility] COMPLETE INC INC AUTO&[place] [address] [place] [facility] LIPASE 6 [facility] [place] [address] [place] AMYLASE 6 [facility] INC INC COMPREHEN 42641 [place] SIVE 6 [facility] METABOLIC INC INC PANEL BLOOD 25707 [place] OCCULT 6 [place] PEROXID INTERNAL E ACTV [place] [address] [place] [address] [place] HEAD/BRAI 6 MEDICAL N W/O IMAGING CONTRAST ASS MATERIAL GLUC BLD 19475 [place] GLUC MNTR 6 [facility]OS[facility] DEV INC INC CLEARED FDA SPEC HOME USE THERAPEUT 68989 [place] IC 6 [facility] PROPHYLAC INC INC TIC/DX INJECTION SUBQ/IM RADEX 35982 [place] C[place] ALL SACRUM & 6 MEDICAL COCCYX IMAGING MINIMUM 2 ASS VIEWS RADIOLOGI 99712 [place] ALL C 6 MEDICAL EXAMINATI IMAGING ON PELVIS ASS 1/2 VIEWS RADEX 79950 [place] ALL SPINE 6 MEDICAL LUMBOSACR IMAGING AL ASS MINIMUM 4 VIEWS URINE 49545 [place] 6 [facility] TEST INC INC VISUAL COLOR CMPRSN METHS CUL BACT 68742 [place] XCPT 6 [facility] URINE INC INC BLOOD/[place] [address] [place] STREPTOCO 6 [facility] CCUS INC INC GROUP A IAADI 02285 [place] INFLUENZA 6 [facility] B VIRUS INC INC IAADI 02208 [place] INFFLUENZ 6 [facility] A A VIRUS INC INC BLOOD 85113 [place] COUNT 6 [facility] COMPLETE INC INC AUTO&AUTO DIFRNTL WBC RADIOLOGI 84605 [place] C EXAM 6 [facility] CHEST 2 INC INC VIEWS FRONTAL&L ATERAL RADEX 76557 [place] SINUSES 6 MEDICAL ADRIANNA PARANASAL IMAGING COMPL ASS MINIMUM 3 VIEWS ANESTHESI 91518 COMMUNITY FEEBACK A NOSE & 6 ANESTH ACCESSORY [place] [address] [facility], PICKLESIM SURG 6 [facility] PATHOLOGY GROSS&BRYCE ROSCOPIC EXAM DECALCIFI 56369 [facility], PICKLESIM CATION 6 [facility] PROCEDURE ECG 09218 [place] ROUTINE 6 [facility] W/LEAST P 12 LDS I&R ONLY ECG 54185 [place] ROUTINE 6 [facility] ECG INC INC W/LEAST 12 LDS TRCG ONLY W/O I&R BLOOD 54907 [place] COUNT 6 [facility] COMPLETE INC INC AUTO&AUTO DIFRNTL WBC ANTIBODY 06108 [place] HERPES 6 [facility] SMPLX INC INC TYPE 1 ANTIBODY 10429 [place] VIRUS NOT 6 [facility] INC INC ELSEWHERE SPECIFIFE D COLLECTIO 38203 [place] N VENOUS 6 [facility] BLOOD INC INC VENIPUNCT URE COMPREHEN 89119 [place] TALLEYON SIVE 6 [facility] [address] [place] MAXILLOFA 6 MEDICAL ADRIANNA CIAL W/[place] [address] [facility] CERVICAL 6 MEDICAL SPINE W/[place] [address] [facility] [place] HEAD/BRAI 6 MEDICAL N W/O IMAGING CONTRAST ASS MATERIAL URINE 81717 [place] [facility] TEST INC INC VISUAL COLOR CMPRSN METHS COMPRE 03906 MAEGAN ISSA AUDIOMETR 6 JARON JARON Y THRESHOLD EVAL SP RECOGNIJ TYMPANOME 68796 MAEGAN ISSA TRY 6 JARON JARON DISTORT 09930 MAEGAN ISSA PRODUCT 6 JARON JARON EVOKED OTOACOUST IC EMISNS LIMITD PULMONARY 90233 [place] STRESS 6 MEDICAL TESTING SERV SIMPLE FOUNDATIO N GAS 25018 [place] DILUT/WAS 6 MEDICAL MEDICAL HOUT LUNG SERV SERV VOL W/WO FOUNDATIO FOUNDAT[place] DISTRIB N N VENT&[place] [address] [place] DIFFUSING 6 MEDICAL CAPACITY SERV FOUNDATIO N NONINVASI 28736 [place] [facility] VE 6 [facility] EAR/PULSE INC INC OXIMETRY MULTIPLE DETER BRNCDILAT 25475 [place] [facility] RSPSE 6 [facility] SPMTRY INC INC PRE&POST- BRNCDILAT ADMN ELIG CLIN [id number] STAMPING RODRIGUEZ TRI ATTSTS 6 GROUND DOC M REC FAMILY OBTD CLINI UPD/REV PT MEDS ECG 01303 [place] [facility] ROUTINE 6 [facility] ECG INC INC W/LEAST 12 LDS TRCG ONLY W/O I&[place] [address] [place] [facility] TROPONIN 6 [facility] QUANTITAT INC INC SABIHA CREATINE 66632 [place] [facility] KINASE 6 [facility] TOTAL INC INC CREATINE 40076 [place] KINASE MB 6 [facility] FRACTION INC INC ONLY COMPREHEN 26664 [place] [facility] SIVE 6 [facility] METABOLIC INC INC PANEL ECG 32011 [place] ROUTINE 6 [facility] W/LEAST P 12 LDS I&R ONLY BLOOD 53722 [facility] COUNT 6 [facility] COMPLETE INC INC AUTO&AUTO DIFRNTL WBC BLOOD 34340 [place] [facility] COUNT 6 [facility] COMPLETE INC INC AUTO&AUTO DIFRNTL WBC BLOOD 07092 [place] [facility] OCCULT 6 [facility] PEROXIDAS INC INC E ACTV QUAL FECES 1-3 SPEC COLLECTIO 82984 [place] [facility] N VENOUS 6 [facility] BLOOD INC INC VENIPUNCT URE IM ADM 74697 [facility] PRQ ID 6 [facility] SUBQ/IM HLTH DEPT HLTH DEPT NJXS EA JAZZ JAZZ VACCINE IM ADM 35390 [facility] PRQ ID 6 [facility] DISTRICT SUBQ/IM HLTH DEPT HLTH DEPT NJXS 1 JAZZ JAZZ VACCINE TDAP 04069 [facility] VACCINE 7 6 [facility] DISTRICT YRS/> IM HLTH DEPT HLTH DEPT JAZZ JAZZ SYPHILIS 26602 [facility] TEST 6 [facility] DISTRICT NON-TREPO HLTH DEPT HLTH DEPT NEMAL JAZZ JAZZ ANTIBODY QUAL SKIN TEST 72724 [facility] 6 [facility] TUBERCULO HLTH DEPT HLTH DEPT [place] ECG [address] [place] [facility] ROUTINE 6 [facility] ECG INC INC W/LEAST 12 LDS TRCG ONLY W/O I&R XTRNL ECG 22332 [place] [facility] & 48 HR 6 [facility] RECORDING INC INC CREATINE 99690 [place] [facility] KINASE 6 [facility] [place] [address] [place] [facility] TROPONIN 6 [facility] QUANTITAT INC INC SABIHA COMPREHEN 95781 [place] SIVE 6 [facility] METABOLIC INC INC PANEL CREATINE 86114 [place] [facility] KINASE MB 6 [facility] FRACTION INC INC ONLY XTRNL ECG 86918 [place] [facility] RHYTHM P W/I&R UP TO 48 HRS EXTERNAL 46970 [place] [facility] ECG 6 [facility] SCANNING INC INC ANALYSIS REPORT BLOOD 71882 [place] [facility] COUNT 6 [facility] COMPLETE INC INC AUTO&AUTO DIFRNTL WBC BLOOD 34926 [place] [facility] COUNT 6 [facility] COMPLETE INC INC AUTO&AUTO DIFRNTL WBC RHEUMATOI 18294 [place] [facility] D FACTOR 6 [facility] [place] [address] [place] [facility] TROPONIN 6 [facility] QUANTITAT INC INC SABIHA GROUND A0425 [facility] MILEAGE 6 AMBULANCE PATY PER SERVICE STATUTE MILE AMBULANCE A0429 [facility] SERVICE 6 AMBULANCE PATY BLS SERVICE EMERGENCY TRANSPORT CREATINE 88326 [place] [facility] KINASE MB 6 [facility] FRACTION INC INC ONLY ANTINUCLE 16599 [place] [facility] AR 6 [facility] ANTIBODIE INC INC S SANNA BLOOD 13456 [place] [facility] COUNT 6 [facility] RETICULOC INC INC YTE AUTOMATED CREATINE 25211 [place] KINASE 6 [facility] TOTAL INC INC PROF SVCS 99417 ALLER[facility] ROS[facility]HAL MAR ALLG 6 PARTNERS IMMNTX X OF [place] W/PRV CO ALLGIC XTRCS NJXS SEDIMENTA 25162 [place] [facility] TION RATE 6 [facility] RBC INC INC NON-AUTOM ATED NITRIC 90056 ALLERGY ROS[facility]HAL MAR OXIDE 6 [facility] [place] GAS CO DETERMINA TION SPMTRY 23299 ALLERGY ROSENTHAL MAR W/VC 6 PARTNERS 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 OF [place] Y ABHI CO W/WO MXML VOL VNTJ ECG 34271 [place] ROUTINE 6 [facility] ECG INC INC W/LEAST 12 LDS TRCG ONLY W/O I&R ECG 62647 [place] ROUTINE 6 [facility] W/LEAST P 12 LDS I&R ONLY SEDIMENTA 16488 [place] [facility] TION RATE 6 [facility] RBC INC INC NON-AUTOM ATED BLOOD 78006 [place] COUNT 6 [facility] RETICULOC INC INC YTE AUTOMATED BASIC 95159 [place] METABOLIC 6 [facility] PANEL INC INC CALCIUM TOTAL TECHNETIU A9503 [place] [facility] M TC-99M 6 [facility] MEDRONATE INC INC DX UP TO 30 MCI BONE 41570 [place] [facility] &/JOINT 6 [facility] IMAGING INC INC WHOLE BODY BLOOD 32533 [place] [facility] COUNT 6 [facility] COMPLETE INC INC AUTO&AUTO DIFRNTL WBC COLLECTIO 73330 [place] [facility] N VENOUS 6 [facility] BLOOD INC INC VENIPUNCT URE BLOOD 72225 [place] COUNT 6 [facility] COMPLETE INC INC AUTO&AUTO DIFRNTL WBC RADIOLOGI 56976 [facility] [facility] EXAM 6 [facility] CHEST 2 INC INC VIEWS FRONTAL&L ATERAL ANES 24007 [place] [address] ANESTHESI INTESTINE A GROUP PS ENDOSCOPY DISTAL DUODENUM THYROID 04704 [place] [facility] HORM 6 [facility] UPTK/THYR INC INC OID HORMONE BINDING RATIO GONADOTRO 10947 [place] [facility] PIN 6 [facility] FOLLICLE INC [place] [address] [place] [facility] THYROXINE 6 [facility] [place] [place] [address] [place] [facility] THYROID 6 [facility] STIMULATI INC INC NG HORMONE TSH COLLECTIO 17650 [place] [facility] VENOUS 6 [facility] BLOOD INC INC VENIPUNCT URE GONADOTRO 93415 [place] [facility] PIN 6 [facility] LUTEINIZI INC INC NG HORMONE COLLECTIO 53990 [place] [facility] N VENOUS 6 [facility] BLOOD INC INC VENIPUNCT URE RADIOLOGI 05632 [facility] C 6 MEDICAL MEDICAL EXAMINATI IMAGING IMAGING ON CHEST [place] [address] [place] [facility] TROPONIN 6 [facility] QUANTITAT INC INC SABIHA BLOOD 96024 [place] [facility] COUNT 6 [facility] COMPLETE INC INC AUTO&AUTO DIFRNTL WBC GROUND A0425 [facility] MILEAGE 6 AMBULANCE KILO PER SERVICE STATUTE MILE COMPREHEN 11049 [place] SIVE 6 [facility] METABOLIC INC INC PANEL CREATINE 15508 [place] [facility] KINASE MB 6 [facility] FRACTION INC INC ONLY AMB A0427 [facility] SERVICE 6 AMBULANCE KILO ALS SERVICE EMERGENCY TRANSPORT LEVEL 1 CREATINE 74431 [place] KINASE 6 [facility] TOTAL INC INC ECG 30915 [place] ROUTINE 6 [facility] W/LEAST P 12 LDS I&R ONLY ECG 65779 [place] [facility] ROUTINE 6 [facility] ECG INC INC W/LEAST 12 LDS TRCG ONLY W/O I&R PREPJ& 37120 [facility]ER[facility] MAR ALLERGEN 6 PARTNERS IMMUNOTHE OF TRE PEREZ CO 1/[place] [address] [place] [facility] INFUSION 6 [facility] THERAPY INC INC PROPHYLAX IS/[place] [address] [place] [facility] TROPONIN 6 [facility] QUANTITAT INC INC SABIHA CREATINE 89749 [place] [facility] KINASE MB 6 [facility] FRACTION INC INC ONLY COMPREHEN 84432 [place] [facility] SIVE 6 [facility] [place] [address] [place] [facility] INFUSION 6 [facility] THERAPY/P INC INC ROPHYLAXI S /DX [address] [place] [address] [place] [address] [place] [facility] CERVICAL 6 [facility] SPINE W/O INC INC CONTRAST MATERIAL RADIOLOGI 31196 [place] [facility] C 6 [facility] EXAMINATI INC INC ON KNEE 3 VIEWS CREATINE 08667 [place] [facility] KINASE 6 [facility] TOTAL INC INC BLOOD 77709 [place] [facility] COUNT 6 [facility] COMPLETE INC INC AUTO&[place] [address] [place] [facility] HEAD/BRAI 6 [facility] N W/O INC INC CONTRAST MATERIAL ECG 05331 [place] ROUTINE 6 [facility] ECG INC INC W/LEAST 12 LDS TRCG ONLY W/O I&R ECG 60353 [place] ROUTINE 6 [facility] W/LEAST P 12 LDS I&R ONLY SPMTRY 62693 ALLERGY ROS[facility]HAL MAR W/VC 6 PARTNERS EXP[employer] [place] Y ABHI CO W/WO MXML VOL VNTJ PERCUTANE 29237 ALLERGY ROSENTHAL MAR OUS TESTS 6 [facility] [place] W/ALLERGE CO LEO EXTRACTS INTRACUTA 42344 ALLERGY ROSENTHAL MAR NEOUS 6 PARTNERS TESTS OF [place] W/ALLERGE CO LEO EXTRACTS SPACR A4627 [facility] KRASNOPOL BAG/RESRV 6 EQUIPMENT ANTONIO LAUREN OR W/WO INC MASK W/METRD DOSE INHAL NITRIC 21288 ALLERGY ROSENTHAL MAR OXIDE 6 [place] [address] [facility] TRANSVAGI 6 PHYSICIAN MEAGAN NAL S GROUP ECG 08597 [place] CHAVEZ JR ROUTINE 6 [facility] W/LEAST P 12 LDS I&R ONLY ECG 70029 [place] ROUTINE 6 [facility] ECG INC INC W/LEAST 12 LDS TRCG ONLY W/O I&R IADNA 36850 [place] [facility] NEISSERIA 6 [facility] INC INC GONORRHOE AE AMPLIFIED PROBE TQ IADNA 24745 [place] [facility] CHLAMYDIA 6 [facility] INC INC TRACHOMAT [place] [address] [facility] [place] ANDREWS TRACT 6 RADIOLOGY RHO UPPER W/WO DELAYED IMAGES W/KUB ECG 07650 [place] ROUTINE 6 [facility] W/LEAST P 12 LDS I&R ONLY RADIOLOGI 56238 [place] [facility] C EXAM 6 [facility] CHEST 2 INC INC VIEWS FRONTAL&[place] [address] [place] [facility] TROPONIN 6 [facility] QUANTITAT INC INC SABIHA RADIOLOGI 15519 [place] [facility] ALL C 6 MEDICAL EXAMINATI IMAGING ON CHEST ASS SINGLE VIEW FRONTAL BLOOD 77352 [place] [facility] COUNT 6 [facility] COMPLETE INC INC AUTO&AUTO DIFRNTL WBC COMPREHEN 25435 [place] [facility] SIVE 6 [facility] METABOLIC INC INC PANEL FIBRIN 44309 [place] [facility] DGRADJ 6 [facility] PRODUCTS INC INC D-DIMER QUAL/SEMI GILBERT ECG 24695 [place] [facility] ROUTINE 6 [facility] ECG INC INC W/LEAST 12 LDS TRCG ONLY W/O I&R ELECTROEN 89425 CINTHYA DONALD CEPHALOGR 6 N AM W/REC NEUROLOGY AWAKE&[place] [address] [place] INFUSION 6 [facility] THERAPY/P INC INC ROPHYLAXI S /DX [address] [place] [address] [facility] ABDOMEN & 6 MEDICAL MEDICAL PELVIS IMAGING IMAGING W/CONTRAS ASS ASS T MATERIAL ECG 36916 [place] ROUTINE 6 [facility] W/LEAST P 12 LDS I&R ONLY BLOOD 56744 [place] [facility] COUNT 6 [facility] COMPLETE INC INC AUTO&[place] [address] [place] [facility] LIPASE 6 [facility] [place] [address] [place] TROPONIN 6 [facility] QUANTITAT INC INC SABIHA CREATINE 46079 [place] [facility] KINASE 6 [facility] TOTAL INC INC CULTURE 67729 [place] [facility] BACTERIAL 6 [facility] INC INC QUANTTATI VE COLONY COUNT URINE CREATINE 86913 [place] KINASE MB 6 [facility] [place] [address] [place] [facility] AMYLASE 6 [facility] INC INC COMPREHEN 48850 [place] [facility] SIVE 6 [facility] METABOLIC INC INC PANEL DRUG TST G0477 [place] [facility] PRESUMP;C 6 [facility] PBL BEING INC INC READ DC OPT OBV ONLY ECG 87830 [place] ROUTINE 6 [facility] ECG INC INC W/LEAST 12 LDS TRCG ONLY W/O I&R ELECTROEN 05081 [facility] CEPHALOGR 6 N N AM W/REC COMMUNTIY COMMUNTIY [facility] WSY CREATINE 82257 [place] KINASE 6 [facility] [place] [address] [place] [facility] TROPONIN 6 [facility] QUANTITAT INC INC SABIHA CREATINE 75003 [place] KINASE MB 6 [facility] FRACTION INC INC ONLY URINE 16419 [place] [facility] 6 [facility] TEST INC INC VISUAL COLOR CMPRSN METHS COMPREHEN 38251 [place] SIVE 6 [facility] METABOLIC INC INC PANEL RADIOLOGI 19277 [facility] ALL C 6 MEDICAL EXAMINATI IMAGING ON CHEST ASS SINGLE VIEW FRONTAL RADEX 80431 [place] [facility] SPINE 6 [facility] THORACIC INC INC 3 VIEWS BLOOD 88929 [place] COUNT 6 [facility] COMPLETE INC INC AUTO&AUTO DIFRNTL WBC RADEX 52246 [facility] ALL SPINE 6 MEDICAL THORACIC IMAGING 2 VIEWS ASS RADIOLOGI 60007 [place] [facility] C EXAM 6 [facility] CHEST 2 INC INC VIEWS FRONTAL&L ATERAL ECG 69176 [place] CHAVEZ JR ROUTINE 6 [facility] W/LEAST P 12 LDS I&R ONLY ECG 62749 [place] ROUTINE 6 [facility] ECG INC INC W/LEAST 12 LDS TRCG ONLY W/O I&R SCREENING G0202 [place] [facility] 6 [facility] MAMMOGRAP INC INC HY WILBERT INCL CAD WHEN PERFORMD COMPUTER- 16332 [place] [facility] AIDED 6 [facility] DETECTION INC INC SCREENING MAMMOGRAP HY BLOOD 47180 [place] [facility] COUNT 6 [facility] COMPLETE INC INC AUTO&[place] [address] [place] MAGNESIUM 6 [facility] INC INC COLLECTIO 95804 [facility] [facility] N VENOUS 6 [facility] [place] [address] [place] [facility] FERRITIN 6 [facility] INC INC CYANOCOBA 97929 [place] [facility] LYUBOV 6 [facility] VITAMIN INC INC B-12 COMPREHEN 54560 [place] [facility] SIVE 6 [facility] [place] [address] [place] [facility] THYROID 6 [facility] STIMULATI INC INC NG HORMONE TSH 25 18146 [place] HYDROXY 6 [facility] INCLUDES INC INC FRACTIONS IF PERFORMED COMPREHEN 20115 [place] SIVE 6 [facility] [address] [place] [facility] LACTATE 6 [place] [address] [place] [facility] TROPONIN 6 [facility] QUANTITAT INC INC SABIHA URNLS DIP 25675 [place] [facility] 6 [facility] STICK/TAB INC INC LET REAGENT AUTO MICROSCOP Y BLOOD 33041 [place] [facility] COUNT 6 [facility] COMPLETE INC INC AUTO&AUTO DIFRNTL WBC RADEX ABD 03874 [place] ALL COMPL 6 MEDICAL AQT ABD IMAGING W/S/E/D ASS VIEWS 1 [place] [address] [place] [facility] INFUSION 6 [facility] THERAPY/P INC INC ROPHYLAXI S /DX 1ST TO 1 HR ECG 42150 [place] ROUTINE 6 [facility] ECG INC INC W/LEAST 12 LDS TRCG ONLY W/O I&R ECG 37351 [place] JR ROUTINE 6 [facility] W/LEAST P 12 LDS I&[place] [address] [place] [facility] INFUSION 6 [facility] THERAPY/P INC INC ROPHYLAXI S /DX 1ST TO 1 HR RADIOLOGI 24524 [place] ALL C EXAM 6 MEDICAL CHEST 2 IMAGING VIEWS ASS FRONTAL&L ATERAL URNLS DIP 72796 [place] [facility] 6 [facility] STICK/TAB INC INC LET REAGENT AUTO MICROSCOP Y BLOOD 93256 [place] COUNT 6 [facility] COMPLETE INC INC AUTO&AUTO DIFRNTL WBC URINE 61419 [facility] [place] 6 [facility] TEST INC INC VISUAL COLOR CMPRSN METHS CREATINE 33939 [place] KINASE MB 6 [facility] FRACTION INC INC ONLY COMPREHEN 07154 [place] SIVE 6 [facility] METABOLIC INC INC PANEL CULTURE 31929 A[place] [facility] BACTERIAL 6 [facility] INC INC [place] [address] [place] [facility] TROPONIN 6 [facility] QUANTITAT INC INC SABIHA CREATINE 66683 [place] KINASE 6 [facility] TOTAL INC INC ECG 68464 [place] ROUTINE 6 [facility] W/LEAST P 12 LDS I&R ONLY ECG 17675 [place] ROUTINE 6 [facility] ECG INC INC W/LEAST 12 LDS TRCG ONLY W/O I&R AMB A0427 [facility] SERVICE 6 AMBULANCE AMBULANCE ALS SERVICE SERVICE EMERGENCY TRANSPORT LEVEL 1 COMPREHEN 51767 [place] SIVE 6 [facility] [place] [address] [place] [facility] LIPASE 6 [facility] INC INC BLOOD 47134 [place] COUNT 6 [facility] COMPLETE INC INC AUTO&AUTO DIFRNTL WBC GROUND A0425 [facility] AMBULANCE PER SERVICE SERVICE STATUTE MILE RADEX ABD 91639 [place] ALL COMPL 6 MEDICAL AQT ABD IMAGING W/S/E/D ASS VIEWS 1 VIEW CH THER 10657 [facility] PROPH/DX 6 N N NJX IV COMMUNTIY COMMUNTIY PUSH HOSPITA HOSPITA SINGLE/1S T SBST/DRUG BLOOD 59588 [facility] COUNT 6 N N COMPLETE COMMUNTIY COMMUNTIY AUTO&AUTO HOSPITA HOSPITA DIFRNTL WBC COLLECTIO 92687 [facility] N VENOUS 6 N N BLOOD COMMUNTIY COMMUNTIY VENIPUNCT HOSPITA HOSPITA URE MRI BRAIN 92121 [facility] [place] KOSTELIC BRAIN 6 RADIOLOGY LANA STEM W/O CONTRAST MATERIAL COMPREHEN 30492 [facility] SIVE 6 N N METABOLIC COMMUNTIY [place] [address] [facility] INFUSION 6 N N HYDRATION COMMUNTIY COMMUNTIY EACH HOSPITA HOSPITA ADDITIONA L HOUR AMB A0427 [facility] SERVICE 6 AMBULANCE AMBULANCE ALS SERVICE SERVICE EMERGENCY [place] [address] [place] HEAD/BRAI 6 MEDICAL N W/O IMAGING CONTRAST ASS MATERIAL RADIOLOGI 17593 [place] ALL C 6 MEDICAL EXAMINATI IMAGING [place] [address] [place] ALL ABDOMEN & 6 MEDICAL PELVIS IMAGING W/O ASS CONTRAST MATERIAL GROUND A0425 [facility] MILEAGE 6 AMBULANCE AMBULANCE PER SERVICE SERVICE STATUTE MILE ECG 92201 [facility] ROUTINE 6 [facility] W/LEAST P 12 LDS I&R ONLY THERAPEUT 54864 [facility] IC PX 1/> 6 AREAS EACH 15 MIN EXERCISES CHIROPRAC 39511 [facility] TIC 6 MANIPLTV TX EXTRASPIN AL 1/> REGION CHIROPRAC 33843 [facility] TIC 6 MANIPULAT SABIHA TX SPINAL 3-4 REGIONS MANUAL 82985 [facility] THERAPY 6 TQS 1/> REGIONS EACH 15 MINUTES MANUAL 81102 [facility] THERAPY 6 TQS 1/> REGIONS EACH 15 MINUTES THERAPEUT 57871 L[facility] LUKING IC PX 1/> 6 AREAS EACH 15 MIN EXERCISES THERAPEUT 30798 [facility] IC PX 1/> 6 MATTI MATTI AREAS EACH 15 MIN EXERCISES MANUAL 68653 [facility] THERAPY 6 MATIT MATTI TQS 1/> REGIONS EACH 15 MINUTES CHIROPRAC 64104 [facility] TIC 6 MATTI MATTI MANIPULAT SABIHA TX SPINAL 3-4 REGIONS CHIROPRAC 71065 [facility] TIC 6 MATTI MATTI MANIPLTV TX EXTRASPIN AL 1/> REGION COMPREHEN 38824 [facility] SIVE 6 DIAGNOSTI DIAGNOSTI [place] [address] SCALF LEI SCALF LEI SURG 6 PATHOLOGY GROSS&BRYCE ROSCOPIC EXAM IMHISTOCH 16159 [facility] SCALF LEI EM/CYTCHM 6 1ST ANTIBODY STAIN PROCEDURE BX SKIN 64173 [facility] SCALF LEI SUBCUTANE 6 OUS&/MUCO US MEMBRANE 1 LESION THERAPEUT 87732 [facility] IC 6 [facility] INJECTION INC INC IV PUSH EACH NEW DRUG GLUC BLD 46512 [facility] GLUC MNTR 6 [facility] DEV INC INC CLEARED FDA SPEC HOME USE URNLS DIP 82205 [facility] 6 [facility] STICK/TAB INC [place] [address] [facility] INFUSION 6 [facility] THERAPY/P INC INC ROPHYLAXI S /DX 1ST [place] [address] [facility] LIPASE 6 [facility] INC INC BLOOD 12152 [facility] COUNT 6 [facility] COMPLETE INC INC AUTO&AUTO DIFRNTL WBC INJECTION J2405 [facility] ONDANSETR INC INC ON HCL PER 1 MG CULTURE 50772 [facility] BACTERIAL 6 [facility] INC INC QUANTTATI VE COLONY COUNT URINE COMPREHEN 99476 [facility] SIVE 6 [facility] [address] [facility] AMYLASE 6 [facility] INC INC CREATINE 62789 [facility] KINASE MB 6 [facility] FRACTION INC INC ONLY UNCLASSIF J3490 [facility] IED DRUGS 6 [facility] INC INC CREATINE 55263 [facility] KINASE 6 [facility] [place] [address] [facility] TROPONIN 6 [facility] QUANTITAT INC INC SABIHA ECG 62681 [place] BORDENSHELLY ROUTINE 6 [facility] W/LEAST P 12 LDS I&R ONLY ECG 26703 [place] [facility] ROUTINE 6 [facility] ECG INC INC W/LEAST 12 LDS TRCG ONLY W/O I&R ECG 89768 [facility] MCKENNA ROUTINE 6 HEALTH IV HEN ECG MEDICAL W/LEAST GROUP 12 LDS I&R ONLY LOCM Q9967 [facility] [phone] 6 [facility] MG/ML [facility] IODINE CONCENTRA TION PER ML INJECTION J1644 [facility] HEPARIN 6 [facility] SODIUM [facility] PER 1000 UNITS GONADOTRO 79966 [facility] PIN 6 [facility]ALTH CHORIONIC [facility] QUANTITAT SABIHA BASIC 01510 [facility] METABOLIC 6 HEALTH HEALTH PANEL [facility] CALCIUM TOTAL INJECTION J3010 [facility] FENTANYL 6 [facility] CITRATE [facility] 0.1 MG BLOOD 94139 [facility] COUNT 6 [facility]ALTH COMPLETE [facility] AUTOMATED COLLECTIO 43373 [facility] N VENOUS 6 [facility] BLOOD [facility] VENIPUNCT URE LIPID 79875 [facility] PANEL [address] [place] [address] HEALTH [facility] HEMOGLOBI 03911 [facility] N 6 [facility]ALTH GLYCOSYLA [facility] LANEY A1C CATH PLMT 00739 [facility] L HRT & 6 HEALTH HEALTH ARTS [facility] W/NJX & ANGIO IMG S&I TECHNETIU A9500 [place] TC-99M 6 [facility] SESTAMIBI INC INC DX PER STUDY DOSE MYOCARDIA 47066 [place] ALL L SPECT 6 MEDICAL MULTIPLE IMAGING STUDIES ASS CV STRS 27028 [facility] TST 6 [facility]&/OR HOSPITAL HOSPITAL RX CONT P P ECG I&R ONLY UNCLASSIF J3490 [facility] IED DRUGS 6 [facility] INC INC ECHO 60370 M[facility] STERN TTHRC R-T 6 MEDICAL 2D SERV W/WOM-MOD FOUNDATIO E COMPL N SPEC&COLR D CV STRS 58370 [place] [facility] TST 6 [facility] XERS&/OR INC INC RX CONT ECG TRCG ONLY CV STRS 17459 [facility] [facility] TST 6 [facility]&/OR [facility] RX CONT P P ECG W/O I&R ECG 75402 [place] [facility] ROUTINE 6 [facility] ECG INC INC W/LEAST 12 LDS TRCG ONLY W/O I&R CREATINE 71691 [facility] [facility] KINASE MB 6 [facility] FRACTION INC INC ONLY COMPREHEN 66780 [facility] [facility] SIVE 6 [facility] [place] [address] [facility] TROPONIN 6 [facility] QUANTITAT INC INC SABIHA CREATINE 50470 [facility] [facility] KINASE 6 [facility] TOTAL INC INC ECG 81897 [place] CHAVEZ JR ROUTINE 6 [facility] W/LEAST P 12 LDS I&R ONLY BLOOD 77311 [facility] COMPLETE INC INC AUTO&AUTO DIFRNTL WBC RADIOLOGI 76524 [place] [facility] ALL C 6 MEDICAL EXAMINATI IMAGING ON CHEST ASS SINGLE VIEW FRONTAL OPHTH 58929 [facility] MEDICAL 6 XM&EVAL COMPRHNSV ESTAB PT 1/> [place] [address] LAB [facility] PARATHORM 6 [facility] [place] [address] LAB MAHESH LAB [facility] MAGNESIUM 6 [facility] [place] [address] LAB MAHESH LAB MA[facility]ESH ZINC 6 [facility] [place] [address] LAB MAHESH LAB [facility] FERRITIN 6 [facility]INGS HOLDINGS ORGANIC [address]37 LAB MA[facility] LAB [facility] ACID 1 6 [facility] QUANTITAT HOLDINGS HOLDINGS SABIHA BLOOD 58696 LAB [facility] LAB [facility] COUNT 6 [facility] COMPLETE HOLDINGS HOLDINGS AUTO&AUTO DIFRNTL WBC PREALBUMI 70887 [facility] N 6 [place] [address] LAB MAHESH LAB MA[facility]ESH THIAMINE- 6 [facility] VITAMIN [place] B-[place] [address] LAB MAEHSH LAB [facility] PHOSPHORU 6 [facility] S [facility] HOLDINGS INORGANIC 25 07646 LAB [facility] LAB [facility] HYDROXY 6 [facility] INCLUDES [facility]INGS HOLDINGS FRACTIONS IF PERFORMED COMPREHEN 43052 LAB [facility] LAB [facility] SIVE 6 [facility] METABOLIC [place] [address] LAB MAHESH LAB MA[facility] IRON 6 [place] [address] LAB MAHESH LAB [facility] FOLIC 6 MAI [facility] [place] [address] LAB MAHESH LAB [facility] TOCOPHERO 6 MAI MAI L ALPHA [place] [address] LAB MAHESH LAB MAHESH VITAMIN A 6 [place] [address] [facility] THYROID 6 [facility] STIMULATI [place] [address] [facility] IRON 6 [facility] INC INC COMPREHEN 62239 [facility] SIVE 6 [facility] METABOLIC INC INC PANEL 25 49038 [facility] HYDROXY 6 [facility] INCLUDES INC INC FRACTIONS IF PERFORMED BLOOD 73235 [facility] COUNT 6 [facility] COMPLETE INC INC AUTO&AUTO DIFRNTL WBC COLLECTIO 71790 [facility] VENOUS 6 [facility] [place] [address] [facility] FERRITIN 6 [facility] TERA INC IRON 27331 [facility] BINDING 6 [facility] CAPACITY INC INC CYTP 85651 [facility], DANIA CERVICAL/ 6 LLC VAGINAL REQ INTERP PHYSICIAN CYTP C/V 73263 [facility], [facility] AUTO THIN 6 LLC LYR PREPJ SCR MNL RESCR PHYS IADNA 66940 [facility] CHLAMYDIA 6 LLC TRACHOMAT IS AMPLIFIED PROBE TQ IADNA 01971 [facility], [facility] HUMAN 6 LLC PAPILLOMA VIRUS HIGH-RISK TYPES IADNA 64151 [facility], [facility] NEISSERIA 6 LLC GONORRHO[place] [address] [facility] THYROID 6 [facility] STIMULATI INC INC NG HORMONE TSH BASIC 00965 [facility] METABOLIC 6 [facility] PANEL INC INC CALCIUM TOTAL COLLECTIO 57475 [facility] VENOUS 6 [facility] BLOOD INC INC VENIPUNCT URE COLLECTIO 13486 [facility] VENOUS 6 [facility] BLOOD INC INC VENIPUNCT URE BLOOD 17850 [facility] COUNT 6 [facility] COMPLETE INC INC AUTO&AUTO DIFRNTL WBC ORGANIC 90260 [facility] ACID 1 6 [facility] [place] [address] [facility] FERRITIN 6 [place] [address] [facility] IRON 6 [facility] INC INC COMPREHEN 84574 [facility] SIVE 6 [facility] [address] [facility] THIAMINE- 6 [facility] VITAMIN INC INC B-1 PREALBUMI 16925 [facility] N 6 [facility] INC INC PREALBUMI 70413 [facility] N 5 [place] [address] LAB MAHESH LAB MA[facility]ESH THIAMINE- 5 [facility] VITAMIN [facility] B-[place] [address] LAB MAHESH LAB MA[facility] FOLIC 5 MAI MA[facility] [place] [address] LAB MAHESH LAB MAHESH IRON 5 MAI [facility]INGS HOLDINGS GENERAL 99000 LAB MA[facility]ESH LAB MA[facility]ESH HEALTH 5 MAI [place] [address] LAB MAHESH LAB MA[facility]ESH FERRITIN 5 MAI MAI [facility] HOLD[facility] ORGANIC 80548 LAB MA[facility]ESH LAB [facility] ACID 1 5 MAI MA[facility] QUANTITAT HOLDINGS HOLDINGS SABIHA BX SKIN 12447 ATKINS ATKINS SUBCUTANE 5 TRA TRA OUS&/MUCO US MEMBRANE 1 [place] [address] SCALF LEI SCALF LEI SURG 5 PATHOLOGY GROSS&BRYCE ROSCOPIC EXAM DESTRUCTI 05810 ATKINS ATKINS ON BENIGN 5 TRA TRA LESIONS UP TO 14 BIOPSY 52412 ATKINS ATKINS SKIN 5 TRA TRA SUBQ&/MUC OUS MEMBRANE EA ADDL LESN DESTRUCTI 42428 ATKINS ATKINS ON 5 TRA TRA PREMALIGN ANT LESION 1ST PREALBUMI 18665 LAB [facility] LAB [facility]ESH N 5 [place] [address] LAB MAHESH LAB MA[facility]ESH THIAMINE- 5 [facility] VITAMIN HOLDINGS HOLDINGS B-1 COMPREHEN 74892 LAB MA[facility]ESH LAB MA[facility]ESH SIVE 5 [facility] METABOLIC [place] [address] LAB MAHESH LAB MAHESH IRON 5 [place] [address] LAB MAHESH LAB MAHESH FOLIC 5 [facility] ACID HOLDINGS HOLDINGS SERUM BLOOD 17132 LAB MA[facility]ESH LAB MA[facility]ESH COUNT 5 MAI MA[facility] COMPLETE HOLDINGS HOLDINGS AUTO&AUTO DIFRNTL WBC ORGANIC 73827 LAB [facility] LAB MAHESH ACID 1 5 [facility] QUANTITAT HOLDINGS HOLDINGS SABIHA COMPUTER- 31430 [facility] AIDED 5 MEDICAL CARMEN DETECTION IMAGING ASS SCREENING MAMMOGRAP HY SCREENING G0202 [place] [address] MEDICAL CARMEN MAMMOGRAP IMAGING HY WILBERT ASS INCL CAD WHEN PERFORMD HEMOGLOBI 48328 [facility] N 5 [facility] GLYCOSYLA INC INC LANEY A1C COLLECTIO 50017 [facility] [facility] N VENOUS 5 [facility] BLOOD INC INC VENIPUNCT URE CYANOCOBA 84341 [facility] [facility] LYUBOV 5 [facility] VITAMIN INC INC B-12 BLOOD 75152 [facility] [facility] COUNT 5 [facility] COMPLETE INC INC AUTO&AUTO DIFRNTL WBC LIPID 87393 [facility] [facility] PANEL 5 [place] [address] [facility] GLUTAMYLT 5 [facility] RASE INC INC GAMMA COMPREHEN 89829 [facility] SIVE 5 [facility] [address] [facility] THYROID 5 [facility] STIMULATI INC INC NG HORMONE TSH 25 30399 [facility] [facility] HYDROXY 5 [facility] INCLUDES INC INC FRACTIONS IF PERFORMED OPHTH 14590 SCIFRES SCIFRES MEDICAL 5 ANG ANG XM&EVAL COMPRHNSV ESTAB PT 1/> [place] [address] [facility] ABDOMEN & 5 N N PELVIS COMMUNTIY COMMUNTIY W/[place] [address] [facility] [facility] ABDOMEN & 5 [facility] PELVIS INC INC W/CONTRAS T MATERIAL URNLS DIP 05227 [facility] STICK/TAB INC INC LET REAGENT AUTO MICROSCOP Y BLOOD 11324 [facility] COUNT 5 [facility] COMPLETE INC INC AUTO&[place] [address] [facility] LIPASE 5 [facility] INC INC CULTURE 94626 [facility] BACTERIAL 5 [facility] INC INC QUANTTATI VE COLONY COUNT URINE COMPREHEN 41248 [facility] SIVE 5 [facility] METABOLIC INC INC PANEL URINE 13658 [facility] TEST INC INC [place] [address] [facility] AMYLASE 5 [place] [address] [facility] AMYLASE 5 N N COMMUNTIY COMMUNTIY HOSPITA HOSPITA COMPREHEN 95408 [facility] SIVE 5 N N METABOLIC COMMUNTIY COMM[place]TI[place] [address] [facility] FOLIC 5 N N ACID COMMUNTIY COMM[place]TI[place] [address] [facility] VITAMIN A 5 N N COMMUNTI[place] [address] [facility] TOCOPHERO 5 N N L ALPHA COMMUNTIY COMMUNTIY VITAMIN E HOSPITA HOSPITA 25 05263 [facility] HYDROXY 5 N N INCLUDES COMMUNTIY COMMUNTIY FRACTIONS [place] [address] [facility] THIAMINE- 5 N N VITAMIN COMMUNTIY COMMUNTIY B-[place] [address] [facility] PHOSPHORU 5 N N S COMMUNTIY COMMUNTIY INORGANIC HOSPITA HOSPITA PREALBUMI 77004 [facility] N 5 N N COMM[place] [address] [facility] LIPASE 5 N N COMMUNTI[place] [address] [facility] MAGNESIUM 5 N N COMMUNTIY COMMUNTIY HOSPITA HOSPITA COLLECTIO 64992 [facility] N VENOUS 5 N N BLOOD COMMUNTIY COMMUNTIY [place]IP[place] [address] [facility] ZINC 5 N N COMMUNTIY COMMUNTIY HOSPITA HOSPITA BLOOD 38404 [facility] COUNT 5 N N COMPLETE COMMUNTIY COMMUNTIY AUTO&AUTO HOSPITA HOSPITA DIFRNTL WBC ORGANIC 87985 [facility] ACID 1 5 N N QUANTITAT COMMUNTIY [place] [address] [facility] ABDOMINAL 5 N N REAL COMMUNTIY COMMUNTIY TIME HOSPITA HOSPITA W/[place] [address] [facility] PARATHORM 5 N N ONE COMMUNTIY COMMUNTIY HOSPITA HOSPITA IRON 99379 [facility] BINDING 5 N N CAPACITY COMM[place] [address] [facility] RETROPERI 5 [facility] TONEAL INC [facility] REAL TIME W/[place] [address] [place] SARAH KADIE RETROPERI 5 MEDICAL TONEAL IMAGING REAL TIME ASS W/[place] [address] [facility] GAMMAGLOB 5 N N ULIN IGA COMMUNTIY COMMUNTIY IGD IGG HOSPITA HOSPITA IGM EACH ALPHA-1-A 79894 [facility] NTITRYPSI 5 N N N TOTAL COMMUNTIY COMMUNTIY HOSPITA HOSPITA COLLECTIO 86592 [facility] N VENOUS 5 N N BLOOD COMMUNTIY COMMUNTIY VENIPUNCT HOSPITA HOSPITA URE BLOOD 56679 [facility] COUNT 5 N N COMPLETE COMMUNTIY COMMUNTIY AUTOMATED HOSPITA HOSPITA HEPATITIS 44173 [facility] C 5 N N ANTIBODY COMMUNTIY [place] [address] [facility] FERRITIN 5 N N COMMUNTIY COMMUNTIY HOSPITA HOSPITA IMMUNOASS 33968 [facility] AY 5 N N ANALYTE COMMUNTIY COMMUNTIY QUAL/SEMI HOSPITA HOSPITA QUAL MULTIPLE STEP PROTHROMB 26794 [facility] IN TIME 5 N N COMMUNTIY COMMUNTIY HOSPITA HOSPITA HEPATITIS 32912 [facility] B CORE 5 N N ANTIBODY COMMUNTIY COMMUNTIY HBCAB HOSPITA HOSPITA TOTAL HEPATITIS 43799 [facility] B SURF 5 N N ANTIBODY COMMUNTIY COMMUNTI[place] [address] [facility] HEPATITIS 5 N N B COMMUNTIY COMMUNTIY SURFACE HOSPITA HOSPITA ANTIGEN ANTINUCLE 17023 [facility] AR 5 N N ANTIBODIE COMMUNTIY COMMUNTIY S SANNA HOSPITA HOSPITA COMPREHEN 34141 [facility] SIVE 5 N N METABOLIC COMMUNTIY COMMUNTI[place] [address] [facility] IRON 5 N [place] [address] [facility] ABDOMEN & 5 MEDICAL PELVIS IMAGING W/O ASS CONTRAST MATERIAL DUP-SCAN 79958 [facility] [place] ANDREWS XTR VEINS 5 RADIOLOGY [place] [address] [facility] LIPASE 5 N N COMMUNTIY COMMUNTIY HOSPITA HOSPITA COLLECTIO 99243 [facility] N VENOUS 5 N N BLOOD COMMUNTIY COMMUNTIY VENIPUNCT HOSPITA HOSPITA URE BLOOD 69300 [facility] COUNT 5 N N COMPLETE COMMUNTIY COMMUNTIY AUTO&AUTO HOSPITA HOSPITA DIFRNTL WBC COMPREHEN 22154 [facility] SIVE 5 N N METABOLIC COMMUNTIY COMMUNTIY [place] [address] [facility] AMYLASE 5 N N COMMUNTIY [place] [address] [facility] [place] SCALF HUBER TRACT 5 RADIOLOGY UPPER W/WO DELAYED IMAGES W/KUB LAPS 87360 [facility] SANCHEZ MICHELLE GSTRC 5 RSTRICTIV BARIATRIC PX SURGICAL LONGITUDI NAL GASTRECTO MY ANES IPR 96924 [facility] ANT UPPER 5 ANESTHESI ABDOMEN A GROUP LAPS PS GASTRIC RSTCV MO LAPAROSCO 4382 [facility] PIC 5 N N VERTICAL COMMUNTIY COMMUNTIY SLEEVE HOSPITA HOSPITA GASTRECTO MY OTHER 4513 [facility] ENDOSCOPY 5 N N OF SMALL COMMUNTIY COMMUNTIY HOSPITA HOSPITA INTESTINE APPL 75819 [facility] MODALITY 5 [facility] 1/> AREAS INC INC ELEC STIMJ UNATTENDE D APPL 95985 [facility] [facility] MODALITY 5 [facility] 1/> AREAS INC INC ULTRASOUN D EA 15 MIN APPLICATI 53254 [facility] [facility] ON 5 [facility] MODALITY INC INC 1/> AREAS HOT/COLD PACKS COMPREHEN 16986 [facility] SIVE 5 N N METABOLIC COMMUNTIY COMMUNTIY PANEL HOSPITA HOSPITA DUP-SCAN 97766 SE[facility] CANSECO XTR VEINS 5 MEDICAL ADRIANNA COMPLETE IMAGING ASS BILATERAL STUDY BLOOD 30989 [facility] COUNT 5 N N COMPLETE COMMUNTIY COMMUNTIY AUTOMATED HOSPITA HOSPITA COLLECTIO 88634 [facility] N VENOUS 5 N N BLOOD COMMUNTIY COMMUNTIY VENIPUNCT HOSPITA HOSPITA URE GONADOTRO 73391 [facility] PIN 5 N N CHORIONIC COMMUNTIY COMMUNTIY HOSPITA HOSPITA QUALITATI VE THERAPEUT 80902 [facility] IC PX 1/> 5 [facility] AREAS INC INC EACH 15 MIN EXERCISES APPLICATI 90282 [facility] [facility] ON 5 [facility] MODALITY INC INC 1/> AREAS HOT/COLD PACKS APPL 40502 [facility] [facility] MODALITY 5 [facility] 1/> AREAS INC INC ULTRASOUN D EA 15 MIN APPL 58354 [facility] [facility] MODALITY 5 [facility] 1/> AREAS INC INC ELEC STIMJ UNATTENDE D CUL BACT 59180 [facility] [facility] XCPT 5 [facility] URINE INC INC BLOOD/STO OL AEROBIC ISOL SUSCEPTIB 90231 [facility] LTY STDY 5 [facility] ANTIMICRB INC INC IAL MICRO/AGA R DILUTJ THERAPEUT 59797 [facility] IC PX 1/> 5 [facility] AREAS INC INC EACH 15 MIN EXERCISES APPL 22207 [facility] [facility] MODALITY 5 [facility] 1/> AREAS INC INC ELEC STIMJ UNATTENDE D APPL 19801 [facility] [facility] MODALITY 5 [facility] 1/> AREAS INC INC ULTRASOUN D EA 15 MIN APPLICATI 99887 [facility] [facility] ON 5 [facility] MODALITY INC INC 1/> AREAS HOT/COLD PACKS APPLICATI 35067 [facility] [facility] ON 5 [facility] MODALITY INC INC 1/> AREAS HOT/COLD PACKS APPL 53196 [facility] [facility] MODALITY 5 [facility] 1/> AREAS INC INC ULTRASOUN D EA 15 MIN APPL 41604 [facility] [facility] MODALITY 5 [facility] 1/> AREAS INC INC ELEC STIMJ UNATTENDE D APPL 76842 [facility] [facility] MODALITY 5 [facility] 1/> AREAS INC INC IONTOPHOR ESIS EA 15 MIN THERAPEUT 28819 [facility] [facility] IC PX 1/> 5 [facility] AREAS INC INC EACH 15 MIN EXERCISES APPL 18605 [place] [facility] MODALITY 5 [facility] 1/> AREAS INC INC IONTOPHOR ESIS EA 15 MIN APPL 05802 [facility] [facility] MODALITY 5 [facility] 1/> AREAS INC INC ELEC STIMJ UNATTENDE D APPL 93159 [place] [facility] MODALITY 5 [facility] 1/> AREAS INC INC ULTRASOUN D EA 15 MIN APPLICATI 89159 [place] [facility] ON 5 [facility] MODALITY INC INC 1/> AREAS HOT/COLD PACKS THYROID 65789 [facility] HORM 5 N N UPTK/THYR COMMUNTIY COMMUNTIY OID HOSPITA HOSPITA HORMONE BINDING RATIO CUL 49923 [facility] PRSMPTV 5 N N PTHGNC COMMUNTIY COMMUNTIY ORGANISM HOSPITA HOSPITA SCRN W/[place] [address] [facility] THYROXINE 5 N N TOTAL COMMUNTIY [place] [address] [facility] THYROID 5 N N STIMULATI COMMUNTIY COMMUNTIY NG HOSPITA HOSPITA HORMONE TSH COMPREHEN 95124 [facility] SIVE 5 N N METABOLIC COMMUNTIY COMMUNTIY PANEL HOSPITA HOSPITA RADIOLOGI 41807 [facility] C EXAM 5 N N CHEST 2 COMMUNTIY COMMUNTIY VIEWS HOSPITA HOSPITA FRONTAL&L ATERAL ECG 33601 [facility] ROUTINE 5 N N ECG COMMUNTIY COMMUNTIY W/LEAST HOSPITA HOSPITA 12 LDS TRCG ONLY W/O I&R LIPID 50828 [facility] PANEL 5 N N COMMUNTIY COMMUNTIY HOSPITA HOSPITA BLOOD 30332 [facility] COUNT 5 N N COMPLETE COMMUNTIY COMMUNTIY AUTOMATED HOSPITA HOSPITA COLLECTIO 37277 [facility] N VENOUS 5 N N BLOOD COMMUNTIY COMMUNTIY VENIPUNCT HOSPITA HOSPITA URE PHYSICAL 17727 [place] [facility] THERAPY 5 [facility] EVALUATIO INC INC N COLLECTIO 02730 [place] [facility] N VENOUS 5 [facility] BLOOD INC INC VENIPUNCT URE FIBRIN 37434 [place] [facility] DGRADJ 5 [facility] PRODUCTS INC INC D-DIMER QUAL/[place] [address] [facility] [facility] TROPONIN 5 [facility] QUANTITAT INC INC SABIHA COMPREHEN 77860 [facility] [facility] SIVE 5 [facility] METABOLIC INC INC PANEL BLOOD 62601 [place] [facility] COUNT 5 [facility] COMPLETE INC INC AUTO&AUTO DIFRNTL WBC URNLS DIP 59600 [place] [facility] 5 [facility] STICK/TAB INC INC LET REAGENT AUTO MICROSCOP Y ECG 73794 [place] [facility] ROUTINE 5 [facility] ECG INC INC W/LEAST 12 LDS TRCG ONLY W/O I&R ECG 29791 [place] CHAVEZ JR ROUTINE 5 [facility] W/LEAST P 12 LDS I&R ONLY RADIOLOGI 06970 [facility] [facility] C EXAM 5 [facility] CHEST 2 INC INC VIEWS FRONTAL&L ATERAL RADIOLOGI 50465 [facility] [facility] C EXAM 5 [facility] CHEST 2 INC INC VIEWS FRONTAL&L ATERAL ECG 92890 [place] MATUTE ROUTINE 5 [facility] W/LEAST P 12 LDS I&R ONLY ECG 09966 [place] [facility] ROUTINE 5 [facility] ECG INC INC W/LEAST 12 LDS TRCG ONLY W/O I&[place] [address] [place] [facility] ANGIOGRAP 5 [facility] HY CHEST INC INC W/CONTRAS T/NONCONT RAST BLOOD 66460 [place] [facility] COUNT 5 [facility] COMPLETE INC INC AUTO&AUTO DIFRNTL WBC COMPREHEN 47690 [place] [facility] SIVE 5 [facility] METABOLIC INC INC PANEL LOCM Q9967 [place] [facility] 300-399 5 [facility] MG/ML INC INC IOD[place] [address] [facility] [facility] TROPONIN 5 [facility] QUANTITAT INC INC SABIHA FIBRIN 49631 [place] [facility] DGRADJ 5 [facility] PRODUCTS INC INC D-DIMER QUAL/SEMI GILBERT RADEX 41862 [facility] HARLEEN SHOULDER 4 MEDICAL COMPLETE IMAGING MINIMUM 2 ASS VIEWS REPAIR 54373 ATKINS ATKINS COMPLEX 4 TRA TRA SCALP/ARM /LEG 1.1-2.5 CM DESTRUCTI 94175 ATKINS ATKINS ON BENIGN 4 TRA TRA LESIONS UP TO 14 LEVEL III 98845 SCALF LEI SCALF LEI SURG 4 PATHOLOGY GROSS&[place] [address] SEJAL CANSECO HEAD/BRAI 4 MEDICAL ADRIANNA N W/O IMAGING CONTRAST ASS MATERIAL THERAPEUT 23917 [place] [facility] IC 4 [facility] INJECTION INC INC IV PUSH EACH NEW DRUG EGD 30818 [facility] TRANSORAL 4 N N BIOPSY [facility] COMMUNITY SINGLE/MU HOSPITA HOSPITA LTIPLE SPECIAL 89761 [facility] PICKLESIM STAIN 4 [facility] ER JR WANDA GROUP 1 MICROORGA NISMS I&R SPCL STN 95680 [facility], PICKLESIM 2 [facility] ER JR WANDA EXCPT MICROORG/ ENZYME/[place] [address] [facility], PICKLESIM SURG 4 [facility] ER JR WANDA PATHOLOGY GROSS&BRYCE ROSCOPIC EXAM ANES 21047 [facility] BENSON UPPER GI 4 ANESTHESI JOSE ANGEL ENDOSCOPY A GROUP PROXIMAL PS TO DUODENUM SPMTRY 38857 [place] [facility] W/VC 4 [facility] EXPIRATOR INC INC Y ABHI W/WO MXML VOL VNTJ LEVEL III 19681 SC[facility] LEI SCALF LEI SURG 4 PATHOLOGY GROSS&BRYCE ROSCOPIC EXAM EXC B9 63274 ADVANCED SCALF LEI LESION 4 DERMATOLO MRGN XCP GY SK TG S/N/H/F/G 1.1-2.0CM REPAIR 47452 ADVANCED SCALF LEI COMPLEX 4 DERMATOLO SCALP/ARM GY /LEG 1.1-2.5 CM RADIOLOGI 51249 [place] [facility] C EXAM 4 MEDICAL ADRIANNA CHEST 2 IMAGING VIEWS ASS FRONTAL&L ATERAL REMOVAL 76692 ATKINS ATKINS SKN TAGS 4 TRA TRA SMALL PARTS ASSEMBLER FIBRQ TAGS ANY AREA UPW/15 CV STRS 54386 [place] MAT[place] TST 4 [facility]&/OR HOSPITAL RX CONT P ECG I&R ONLY ECHO 91727 [place] [facility] TTHRC R-T 4 [facility] 2D INC INC W/WOM-MOD E COMPL SPEC&COLR D CV STRS 72583 [place] [facility] TST 4 [facility] XERS&/OR INC INC RX CONT ECG TRCG ONLY RADIOLOGI 04483 [facility] EXAM 4 [facility] CHEST 2 IMAGING VIEWS ASS FRONTAL&L ATERAL ECG 14353 SCOTT CHAVEZ JR ROUTINE 4 DWI DWI ECG W/LEAST 12 LDS I&R ONLY ECG 98065 [place] [facility] ROUTINE 4 [facility] ECG INC INC W/LEAST 12 LDS TRCG ONLY W/O I&R BLOOD 19097 [place] [facility] COUNT 4 [facility] COMPLETE INC INC AUTO&AUTO DIFRNTL WBC RADIOLOGI 89594 HARLEEN ABBOTTUTCHER C 4 ADRIANNA ADRIANNA EXAMINATI [place] [address] [place] [facility] TROPONIN 4 [facility] QUANTITAT INC INC SABIHA BASIC 48167 [place] [facility] METABOLIC 4 [facility] PANEL INC INC CALCIUM TOTAL CREATINE 74741 [place] [facility] KINASE MB 4 [facility] FRACTION INC INC ONLY COMPREHEN 77259 [place] [facility] SIVE 4 [facility] [address] [place] [facility] TROPONIN 4 [facility] QUANTITAT INC INC SABIHA CREATINE 77284 [place] [facility] KINASE 4 [facility] TOTAL INC INC FIBRIN 61759 [place] [facility] DGRADJ 4 [facility] PRODUCTS INC INC D-DIMER QUAL/SEMI GILBERT BLOOD 18441 [place] [facility] COUNT 4 [facility] COMPLETE INC INC AUTO&AUTO DIFRNTL WBC ECG 38687 [place] [facility] ROUTINE 4 [facility] ECG INC INC W/LEAST 12 LDS TRCG ONLY W/O I&R ECG 34794 ANKUR SANCHEZEY ROUTINE 4 BRYCE BRYCE ECG W/LEAST 12 LDS I&R ONLY RADIOLOGI 74532 BEINEKE D BEINEKE D C EXAM 4 CHEST 2 VIEWS FRONTAL&L ATERAL HEMOGLOBI 62849 COMBINED COMBINED N 4 PHYSICIAN PHYSICIAN GLYCOSYLA S LA S LA LANEY A1C LIPID 57954 COMBINED COMBINED PANEL 4 PHYSICIAN PHYSICIAN S LA S LA SEDIMENTA 28488 COMBINED COMBINED TION RATE 4 PHYSICIAN PHYSICIAN RBC S LA S LA NON-AUTOM ATED 25 86047 COMBINED COMBINED HYDROXY 4 PHYSICIAN PHYSICIAN INCLUDES S LA S LA FRACTIONS IF PERFORMED CYANOCOBA 27552 COMBINED COMBINED LYUBOV 4 PHYSICIAN PHYSICIAN VITAMIN S LA S LA B-12 [place] [address] COMBINED COMBINED FREE 4 PHYSICIAN PHYSICIAN THYROXINE S LA S LA GENERAL 85907 COMBINED COMBINED HEALTH 4 PHYSICIAN PHYSICIAN PANEL S LA S LA COMPUTER- 34436 [place] HARLEEN AIDED 4 MEDICAL ADRIANNA DETECTION IMAGING ASS SCREENING MAMMOGRAP HY SCREENING G0202 [place] HARLEEN 4 MEDICAL ADRIANNA MAMMOGRAP IMAGING HY WILBERT ASS INCL CAD WHEN PERFORMD LIPID 61596 [facility] PANEL 4 DIAGNOSTI DIAGNOSTI CS CS IIV3 90940 [facility]/CO [place] VACCINE 9 [facility]ALTH CO [facility] VIRUS 0.5 BANK ACCT ML DOSAGE IM USE RADEX HIP 91292 [facility] HO[facility]SU[facility], 9 MEDICAL MAX P [place] IMAGING L ASSOCIATE COMPLETE S MINIMUM 2 VIEWS RADEX 17647 KIMBERLEE SANCHEZEY, SPINE 9 [facility] LUMBSCR CORPORATI COMPL ON W/BENDING VIEWS MIN 6 RADIOLOGI 45401 [place] [facility] C 9 [facility] EXAMINATI INC INC ON PELVIS 1/2 VIEWS RADEX 86979 [place] [facility] SPINE 9 [facility] LUMBOSACR INC INC AL MINIMUM 4 VIEWS Encounters Encounter Start End Date Code Location Performer Type Date OFFICE 49601 [facility] OUTPATIEN 7 7 PHYSICIAN T VISIT S GROUP 25 MINUTES OFFICE 69849 [facility] ISSA OUTPATIEN 7 7 PH[facility]ICIAN T VISIT S GROUP 10 [facility]UTES [facility] [place] [facility] 7 [facility] OUTPATI[facility] INC T OFFICE 58949 [facility] OUTPATI[facility] 7 7 PHYSICIAN T VISIT S GROUP 25 MINUTES OFFICE 14397 [facility] 7 7 [place] T VISIT INTERNAL 15 MED MINUTES OFFICE 34929 [facility] OUTPATI[facility] 7 7 PHYSICIAN T [facility]ISIT S GROUP 25 MINUTES [facility] [place] [facility] 7 [facility] OUTPATIEN INC T OFFICE 17260 [facility] 7 [facility] [place] T VISIT ORTHOPAED 15 IC MINUTES [facility] [place] [facility] OUTPATIEN INC T EMERGENCY 13666 [facility] DEPT 7 7 PHYSICIAN VISIT S, PLLC HIGH SEVERITY& THREAT FUNCJ EMERGENCY 61461 [place] 7 7 [facility] DEPARTMEN INC T VISIT HIGH/URGE NT SEVERITY OFFICE 28499 [facility] 7 7 [facility] T VISIT INTERNAL 25 MED MINUTES OFFICE 71085 [place] [facility] T VISIT 5 INC MINUTES [facility] [place] [facility] 44152 [facility] 7 7 [place] [facility] NEW 30 ORTHOPAED MINUTES IC EMERGENCY 69770 [place] 7 7 [facility] DEPARTMEN [facility] T VISIT LOW/MODER SEVERITY [facility] [place] 7 7 [facility]PATIEN [facility] [place] 7 7 [facility] OUT[facility]IEN [facility] 18346 [place] 7 7 [facility] T VISIT MODERATE SEVERITY [facility] [place] 7 7 [facility] OUTPATIEN [facility] EM[facility]ENC[facility] 45521 SMILEY PASCUAL 7 7 PHYSICIAN [facility], [facility] T VISIT HIGH/URGE NT SEVERITY [facility]OSP[facility] [place] 7 7 [facility] OUTPATIEN [facility] 76350 [place] 7 7 [facility] T VISIT LOW/MODER SEVERITY OFFICE 53804 [place] OUTPATIEN 7 7 [place] T VISIT INTERNAL 15 MED MINUTES EMERGENCY 51032 [facility] 7 7 [facility] T VISIT PHYS MODERATE SEVERITY [facility] [place] - 7 7 [facility] EMERGENCY 40929 [place] 7 7 [facility] T VISIT LOW/MODER SEVERITY [facility] [place] 7 7 [facility] OUTPATIEN [facility] T OFFICE 75646 [place] OUTPATIEN 7 7 [facility] T VISIT 5 INC MINUTES OFFICE 63329 [place] OUTPATIEN 7 7 [place] T VISIT INTERNAL 15 MED MINUTES [facility] [place] 7 7 [facility] OUTPATIEN [facility] T OFFICE 91140 [place] OUTPATIEN 7 7 [facility] T VISIT 5 INC MINUTES OFFICE 96328 [place] OUTPATIEN 7 7 [facility] T VISIT 5 INC MINUTES [facility] [place] [facility] 7 7 [facility] [place] [facility] T OFFICE 25866 [place] R[place] OUTPATIEN 7 7 [place] T VISIT INTERNAL 25 MED MINUTES OFFICE 54286 [place] OUTPATIEN 7 7 [facility] T NEW 10 INC MINUTES OFFICE 72846 [place] JASSO OUTPATIEN 7 7 T VISIT 25 MINUTES HOSP[facility] - 7 7 HEALTH OUTPATIEN [facility] EMERGENCY 84966 [place] 7 7 [facility] DEPARTMEN [facility] T VISIT LIMITED/M INOR PROB [facility]OSP[facility] [place] [facility] 7 7 [facility] OUTPATIEN [facility] T EMERGENCY 53200 [place] 7 7 [facility] DEPARTMEN [facility] T VISIT LOW/MODER SEVERITY [facility] [place] [facility] 7 7 [facility] 34285 [place] 7 7 [facility] T VISIT LIMITED/M INOR PROB [facility]OS[facility] [place] - 7 7 [facility] 7 7 HEALTH OUTPATIEN [facility] 7 7 HEALTH OUTPATIEN [facility] [place] - 6 6 [facility] OUTPATIEN [facility] T EMERGENCY 31959 SMILEY SOTOMAYOR, [address] S, [facility] T VISIT HIGH/URGE NT SEVERITY OFFICE 63178 [place] RICHY OUTPATIEN 6 6 [place] T VISIT INTERNAL 15 MED MINUTES EMERGENCY 39202 [place] 6 6 [facility] T VISIT MODERATE SEVERITY EMERGENCY 68610 SMILEY JAQUEZ [address] [facility] T VISIT HIGH/URGE NT SEVERITY [facility]OSPITAL [place] - 6 6 [facility] OUTPATIEN [facility] T EMERGENCY 49734 [place] 6 6 [facility] T VISIT LIMITED/M INOR PROB EMERGENCY 77106 SMILEY ARMIJO 6 6 PHYSICIAN [facility], [facility] T VISIT MODERATE SEVERITY [facility]OSP[facility] [place] - 6 6 [facility] OUTPATIEN [facility] [place] - 6 6 [facility] OUTPATIEN [facility] T EMERGENCY 76937 SMILEY PASCUAL [address] [facility] T VISIT MODERATE SEVERITY EMERGENCY 02250 [place] 6 6 [facility] T VISIT LOW/MODER SEVERITY OFFICE 40114 SCIFRES SCIFRES OUTPATIEN 6 6 ANG ANG T VISIT 10 MINUTES OFFICE 58531 [place] ARSLAN OUTPATIEN 6 6 [place] OFELIA T VISIT INTERNAL 15 MED MINUTES OFFICE 34522 [facility] SANCHEZ [facility] OUTPATIEN 6 6 T VISIT BARIATRIC 25 SURGICAL MINUTES EMERGENCY 97803 [place] 6 6 [facility] T VISIT LOW/MODER SEVERITY EMERGENCY 57557 SMILEY SOTOMAYOR, [address] [facility] T VISIT HIGH/URGE NT SEVERITY [facility] [place] - 6 6 [facility] OUTPATIEN [facility] T [facility]OSP[facility] [place] - 6 6 [facility] OUTPATIEN INC T EMERGENCY 02375 [place] 6 6 [facility] T VISIT LIMITED/M INOR PROB EMERGENCY 95390 SMILEY PASCUAL 6 6 PHYSICIAN BRYCE DEPARTMEN S, PLLC T VISIT MODERATE SEVERITY OFFICE 45937 [facility] FALLUJI OUTPATIEN 6 6 [facility] NACHO T VISIT MEDICAL 15 G MINUTES [facility]OSP[facility] [place] - 6 6 [facility] INC T OFFICE 09770 [facility] HUMPHREY OUTPATIEN 6 6 PHYSICIAN MEAGAN T VISIT S GROUP 15 MINUTES [facility] [place] - 6 6 [facility] INC T OFFICE 12018 [facility] ISSA OUTPATIEN 6 6 PHYSICIAN JARON T VISIT S GROUP 10 MINUTES [facility] [place] - 6 6 [facility] OUTPATIEN INC T EMERGENCY 62986 [place] 6 6 [facility] DEPARTMEN INC T VISIT MODERATE SEVERITY [facility] [place] - 6 6 [facility] INC T OFFICE 22823 [facility] ISSA OUTPATIEN 6 6 PHYSICIAN JARON T VISIT S GROUP 10 MINUTES [facility] [place] - 6 6 [facility] OUTPATIEN INC T OFFICE 77476 [facility] OUT[facility] [address] [facility] HEN T VISIT MEDICAL 15 GROUP MINUTES OFFICE 78889 [place] ALATORRE OUTPATIEN 6 6 [facility] T VISIT HOSPITAL 10 P MINUTES OFFICE 31864 [facility] R[facility] OUTPATIEN 6 6 GROUND T VISIT FAMILY 25 CLINI MINUTES OFFICE 28158 [facility] 6 [facility] T VISIT 5 HLTH DEPT HLTH DEPT MINUTES [facility] EM[facility]ENC[facility] 30077 [place] 6 6 [facility] DEPARTMEN INC T VISIT LOW/MODER SEVERITY EMERGENCY 75585 [place] 6 6 [facility] DEPARTMEN INC T VISIT MODERATE SEVERITY EMERGENCY 87234 SMILEY ARMIJO 6 6 PHYSICIAN SILVIO DALE T VISIT HIGH/URGE NT SEVERITY [facility] [place] - 6 6 [facility] OUTPATIEN INC T [facility] [place] - 6 6 [facility] OUTPATIEN INC T OFFICE 73481 [facility] KIMBERLY OUTPATIEN 6 6 PHYSICIAN MAT T VISIT S GROUP 25 MINUTES [facility]OSP[facility] [place] - 6 6 [facility] OUTPATIEN INC T OFFICE 51986 [facility] 6 T VISIT BARIATRIC 25 SURGICAL MINUTES [facility]OSP[facility] [place] - 6 6 [facility] OUTPATIEN INC T EMERGENCY 49131 SMILEY PASCUAL 6 6 PHYSICIAN SILVIO WHEELER T VISIT MODERATE SEVERITY EMERGENCY 45122 [place] 6 6 [facility] T VISIT LOW/MODER SEVERITY OFFICE 96332 [facility] 6 PHYSICIAN MAT T NEW 45 S GROUP MINUTES EMERGENCY 04372 [place] 6 6 [facility] T VISIT LOW/MODER SEVERITY OFFICE 51024 ALLERGY ROSENTHAL [facility] 6 6 PARTNERS T VISIT OF [place] 40 CO MINUTES EMERGENCY 89662 SMILEY JIMENEZ 6 6 PHYSICIAN TAQUERIA HAWK T VISIT HIGH/URGE NT SEVERITY [facility] [place] - 6 6 [facility] OUTPATIEN INC T EMERGENCY 85538 SMILEY PASCUAL 6 6 PHYSICIAN SILVIO WHEELER T VISIT MODERATE SEVERITY [facility] [place] - 6 6 [facility] OUTPATIEN INC T EMERGENCY 36065 [place] 6 6 [facility] T VISIT LOW/MODER SEVERITY OFFICE 24071 CINTHYA DONALD OUTPATIEN 6 6 N T VISIT NEUROLOGY 10 MINUTES [facility]OSP[facility] [place] - 6 6 [facility] OUTPATIEN [facility] 16281 [place] 6 6 [facility] T VISIT LIMITED/M INOR PROB EMERGENCY 74198 SMILEY SOTOMAYOR, 6 6 PHYSICIAN JR BILLINGS [facility], [facility] T VISIT MODERATE SEVERITY [facility] [place] - 6 6 [facility] [place] [facility] 6 6 [facility] OUTPATIEN [facility] [place] - 6 6 [facility] 55092 [place] 6 6 [facility] 2001 VISIT MODERATE SEVERITY EMERGENCY 90336 SMILEY PASCUAL DEPT 6 6 PHYSICIAN BRYCE [facility]ISIT S, [facility] HIGH SEVERITY& THREAT FUNCJ OFFICE 36199 [place] ROQUEIMONE [facility] 6 6 [facility] VISIT HOSPITAL 10 P MINUTES EMERGENCY 64809 SMILEY SOTOMAYOR 6 6 PHYSICIAN JR BILLINGS [facility], [facility] T VISIT HIGH/URGE NT SEVERITY [facility] [place] - 6 6 [facility] EM[facility]GENC[facility] 68765 [place] 6 6 [facility] T VISIT MODERATE SEVERITY OFFICE 38441 [place] WEISS [facility] [address] [facility] T VISIT HOSPITAL 10 P MINUTES OFFICE 48928 ALLERGY ROSENTHAL MAR CONSULTAT 6 6 PART[facility]ERS [facility] [place] NEW/ESTAB CO PATIENT 60 MIN EMERGENCY 99370 SMILEY PASCUAL DEPT 6 6 PHYSICIAN BRYCE VISIT S, PLLC HIGH SEVERITY& THREAT FUNCJ EMERGENCY 42219 SMI[place] PASCUAL 6 6 PHYSICIAN BRYCE DEPARTMEN S, [facility] T VISIT MODERATE SEVERITY [facility] [place] Estes 6 6 [facility] T EMERGENCY 25205 [place] 6 6 [facility] DEPARTMEN INC T VISIT LOW/MODER SEVERITY [facility] [place] - 6 6 [facility] OUTPATIEN INC T EMERGENCY 81294 SMILEY PASCUAL DEPT 6 6 PHYSICIAN BRYCE VISIT S, PLLC HIGH SEVERITY& THREAT FUNCJ EMERGENCY 14911 [place] 6 6 [facility] DEPARTMEN INC T VISIT LOW/MODER SEVERITY OFFICE 87617 [facility] OUT[facility] 6 6 PHYSICIAN T VISIT S GROUP 25 MINUTES [facility]OSP[facility] [place] - 6 6 [facility] OUTPATIEN INC T EMERGENCY 93380 [place] 6 6 [facility] DEPARTMEN INC T VISIT LOW/MODER SEVERITY EMERGENCY 42188 SMILEY PASCUAL 6 6 PHYSICIAN BRYCE DEPARTMEN S, [facility] T VISIT MODERATE SEVERITY EMERGENCY 97199 [place] 6 6 [facility] DEPARTMEN INC T VISIT LOW/MODER SEVERITY [facility] [place] - 6 6 [facility] OUTPATIEN INC T [facility] N OUTPATIEN COMMUNTIY T HOSPITA OFFICE 21856 [facility] ISSA OUTPATIEN 6 6 PHYSICIAN JARON T NEW 20 S GROUP MINUTES EMERGENCY 36493 [place] 6 6 [facility] DEPARTMEN INC T VISIT MODERATE SEVERITY [facility] [place] - 6 6 [facility] OUTPATIEN INC T EMERGENCY 64850 SMILEY ARMIJO DEPT 6 6 PHYSICIAN CASANDRA VISIT S, PLLC HIGH SEVERITY& THREAT FUNCJ EMERGENCY 65571 SMI[place] PASCUAL 6 6 PHYSICIAN BRYCE DEPARTMEN S, [facility] T VISIT HIGH/URGE NT SEVERITY [facility] [place] - 6 6 [facility] OUTPATIEN INC T [facility] [place] - 6 6 N OUTPATIEN COMMUNTIY T HOSPITA EMERGENCY 38911 [place] 6 6 [facility] DEPARTMEN INC T VISIT MODERATE SEVERITY [facility] [place] - 6 6 [facility] OUTPATIEN INC T EMERGENCY 62633 SMILEY PASCUAL DEPT 6 6 PHYSICIAN BRYCE VISIT S, PLLC HIGH SEVERITY& THREAT [facility] OFFICE 99234 [facility] OUTPATIEN 6 6 T VISIT BARIATRIC 25 SURGICAL MINUTES [facility]OSP[facility] [place] - 6 6 [facility] OUTPATIEN INC T HOSP[facility] - 6 6 [facility]ALTH [facility]PAT[facility]EN [facility] [address] [facility] 6 6 EMERGENCY HOW DEPARTMEN PHYS PSC T VISIT MODERATE SEVERITY EMERGENCY 96922 [place] 6 6 [facility] DEPARTMEN INC T VISIT LOW/MODER SEVERITY [facility] [place] - 6 6 [facility] OUTPATIEN INC T EMERGENCY 19628 SMILEY BAGLEY DEPT 6 6 PHYSICIAN FOR VISIT S, PLLC HIGH SEVERITY& THREAT [facility] [place] - 6 6 [facility] OUTPATIEN INC T EMERGENCY 39031 SMILEY PASCUAL 6 6 PHYSICIAN BRYCE DEPARTMEN S, PLLC T VISIT HIGH/URGE NT SEVERITY [facility] [place] - 6 6 [facility] OUTPATIEN INC T EMERGENCY 74622 [place] 6 6 [facility] DEPARTMEN INC T VISIT LOW/MODER SEVERITY EMERGENCY 68088 [place] SUGGS [facility] 6 6 PHYSICIAN DEPARTMEN S, PLLC T VISIT HIGH/URGE NT SEVERITY HOSPITAL [facility] 6 6 N OUTPATIEN [facility]TIY [facility] 59210 [facility] 6 6 ROSAL[place] JOSE ANGEL DEPARTMEN EMERGENCY T VISIT PHYS HIGH/URGE NT SEVERITY EMERGENCY 95136 [place] DEPT 6 6 [facility] VISIT INC HIGH SEVERITY& THREAT FUN [facility] [place] - 6 6 [facility] OUTPATIEN INC T OFFICE 34725 CINTHYA RODRIGUEZ SHABANA CONSULTAT 6 6 N ION NEUROLOGY NEW/ESTAB PATIENT 60 MIN OFFICE 09695 [facility] OUTPATIEN 6 6 MATTI MATTI T NEW 30 MINUTES OFFICE 45390 SCALF LEI SCALF LEI OUTPATIEN 6 6 T VISIT 25 MINUTES [facility]OSP[facility] [place] - 6 6 [facility] OUTPATIEN INC T EMERGENCY 29266 SMILEY PASCUAL DEPT 6 6 PHYSICIAN BRYCE VISIT S, [facility] HIGH SEVERITY& THREAT FUNJ EMERGENCY 48579 [place] 6 6 [facility] DEPARTMEN INC T VISIT HIGH/URGE NT SEVERITY OFFICE 75981 [place] ARSLAN OUTPATIEN 6 6 [facility] T VISIT INTERNAL 15 MED MINUTES [facility] - 6 6 HEALTH OUTPATIEN [facility] [place] - 6 6 [facility] OUTPATIEN INC T EMERGENCY 06418 [place] 6 6 [facility] DEPARTMEN INC T VISIT HIGH/URGE NT SEVERITY EMERGENCY 47360 SMILEY PASCUAL DEPT 6 6 PHYSICIAN BRYCE VISIT S, [facility] HIGH SEVERITY& THREAT FUN [facility] [place] - 6 6 [facility] OUTPATIEN INC T OFFICE 29694 [facility] [place] OUTPATIEN 6 6 HEALTH KADIE T VISIT MEDICAL 15 GROUP MINUTES OFFICE 48104 [facility] SANCHEZ MICHELLE OUTPATIEN 6 6 T VISIT BARIATRIC 25 SURGICAL MINUTES [facility] [place] - 6 6 [facility] OUTPATIEN INC T OFFICE 10539 [place] ARSLAN OUTPATIEN 6 6 [facility] OF[facility] T VISIT INTERNAL 15 MED MINUTES INITIAL 39715 [facility] PRE[facility] 6 6 PHYSICIAN E S GROUP MEDICINE NEW PATIENT 40-64YRS [facility] [place] - 6 6 [facility] OUTPATIEN INC T OFFICE 66714 [facility] [place] OUTPATIEN 6 6 PRIMARY KADIE T VISIT CARE OF 15 ABISAI MINUTES OFFICE 78061 [place] ARSLAN OUTPATIEN 6 6 [place] OFELIA T VISIT INTERNAL 15 MED MINUTES [facility] [place] - 6 6 [facility] OUTPATIEN INC T OFFICE 52789 WENDY SANCHEZ MICHELLE OUTPATIEN 5 5 T VISIT BARIATRIC 25 SURGICAL MINUTES OFFICE 16998 ATKINS ATKINS OUTPATIEN 5 5 TRA TRA T VISIT 25 MINUTES PERIODIC 76215 [facility] E MED EST HLTH DEPT HL DEPT PATIENT JAZZ JAZZ 40-64YRS OFFICE 42068 WENDY SANCHEZ MICHELLE OUTPATIEN 5 5 T VISIT BARIATRIC 15 SURGICAL MINUTES [facility] [place] - 5 5 [facility]PATIEN INC T [facility] [place] - 5 5 [facility] OUTPATIEN INC T OFFICE 95689 [place] ARSLAN OUTPATIEN 5 5 [facility] OFELIA T NEW 30 INTERNAL MINUTES MED OFFICE 72060 [facility] PETTEY OUTPATIEN 5 5 PHYSICIAN JAM T VISIT S GROUP 15 MINUTES OFFICE 12816 GASTROENT CASE JUS OUTPATIEN 5 5 EROLOGY T VISIT AND 15 HEPATOL MINUTES OFFICE 12566 [facility] [place] OUT[facility] 5 5 HEALTH KADIE T VISIT MEDICAL 10 GROUP MINUTES [facility] [place] - 5 5 N [facility]PAT[facility]EN [facility] [place] [facility] OUTPATIEN INC T EMERGENCY 80325 SMILEY HUTCHISON 5 5 PHYSICIAN [facility] T VISIT HIGH/URGE NT SEVERITY [facility]OS[facility] - 5 5 N OUTPATIEN COMMUNTIY [facility] [place] - 5 5 [facility] OFFICE 94100 GASTROENT CASE JUS OUTPATIEN 5 5 EROLOGY T NEW 45 AND MINUTES HEPATOL EMERGENCY 80735 [place] SOTOMAYOR, 5 5 [facility] T VISIT P LOW/MODER SEVERITY [facility] [place] - 5 5 [facility] OUTPATIEN [facility] OFFICE 96160 [facility]EL [facility] 5 5 HUBER HUBER T VISIT 15 MINUTES EMERGENCY 68464 [place] SOTOMAYOR 5 5 [facility] T VISIT P MODERATE SEVERITY [facility] [place] - 5 5 [facility] - 5 5 N OUTPATIEN COMMUNTIY [facility] 5 5 N OUTPATIEN COMMUNTIY [facility] [place] 714[address] 5 N [facility]PAT[facility] [place] [facility] 5 5 [facility] OUTPATIEN [facility] T OFFICE 80893 WENDY MARTINEZ OUTPATIEN 5 5 T VISIT BARIATRIC 40 SURGICAL MINUTES OFFICE 15588 DANIEL SANCHEZ OUTPATIEN 5 5 HUBER HUBER T VISIT 15 MINUTES EMERGENCY 88816 [place] PASCUAL 5 5 [facility] T VISIT P LOW/MODER SEVERITY [facility] [place] - 5 5 [facility] OUT[facility] [place] Estes 5 5 [facility] OUTPATIEN [facility] CINTHYA - 5 5 N OUTPATIEN COMM[facility]TIY [facility] [place] [facility] 5 [facility] OUTPATIEN INC T OFFICE 80571 [place] CELI OUTPATIEN 5 5 [facility] 20 HOSPITAL MINUTES P [facility] [place] - 5 5 [facility] OUTPATIEN INC T OFFICE 20793 MELANIE HENNESSYNOGUEIRA OUTPATIEN 5 5 MEDICAL JAM T VISIT SERV 15 FOUNDATIO MINUTES N OFFICE 12942 [place] WEISS JR OUTPATIEN [address] MINUTES P OFFICE 89241 [facility] PETTEMago OUTPATIEN 5 5 PHYSICIAN JAM T [facility] S GROUP MINUTES OFFICE 58892 [facility] 5 5 [facility] MEDICAL NEW/ESTAB G PATIENT 60 MIN OFFICE 98301 DANIEL TOLEDOPATIEN 5 5 HUBER HUBER T VISIT 15 MINUTES EMERGENCY 04188 [place] 5 5 [facility] DEPARTMEN INC T VISIT HIGH/URGE NT SEVERITY [facility] [place] - 5 5 [facility] OUTPATIEN INC T EMERGENCY 81523 [place] ESCOTO 5 5 [facility] T VISIT P MODERATE SEVERITY EMERGENCY 67625 [place] 5 5 [facility] DEPARTMEN INC T VISIT HIGH/URGE NT SEVERITY [facility] [place] - 5 5 [facility] OUTPATIEN INC T OFFICE 99361 DANIEL TOLEDOPATIEN 5 5 HUBER HUBER T VISIT 15 MINUTES OFFICE 19371 DANIEL RECIOEN 4 4 HUBER HUBER T VISIT 15 MINUTES [facility] [place] - 4 4 [facility] OUTPATIEN INC T EMERGENCY 58082 [place] 4 4 [facility] DEPARTMEN INC T VISIT LOW/MODER SEVERITY OFFICE 29252 DANIEL DANIEL OUTPATIEN 4 4 HUBER HUBER T VISIT 15 MINUTES [facility]OSP[facility] [place] - 4 4 [facility] OUTPATIEN INC T EMERGENCY 31573 [facility] DEPT 4 4 ROSALEE VISIT EMERGENCY HIGH PHYS SEVERITY& THREAT [facility] - 4 4 N OUTPATIEN COMMUNITY T HOSPITA OFFICE 46484 ARMANDOBING DANIEL OUTPATIEN 4 4 HUBER HUBER T VISIT 15 MINUTES OFFICE 88938 MONALISA CHAPIN CONSULTAT 4 4 KADIE ION CARDIOLOG NEW/ESTAB Y AT CENT PATIENT 40 MIN [facility] [place] - 4 4 [facility] OUTPATIEN INC T OFFICE 58713 MELANIE NOGUEIRA CONSULTAT 4 4 MEDICAL JAM ION SERV NEW/ESTAB FOUNDATIO PATIENT N 60 MIN [facility] [place] - 4 4 [facility] OUTPATIEN INC T OFFICE 47730 DANIEL SANCHEZ OUTPATINEENA 4 4 HUBER HUBER T VISIT 15 MINUTES OFFICE 39322 [facility] FALLU OUTPATIEN 4 4 [facility] NACHO T VISIT MEDICAL 15 G MINUTES OFFICE 80661 ATKINS ATKINS CONSULTAT 4 4 TRA TRA ION NEW/ESTAB PATIENT 40 MIN [facility] [place] - 4 4 [facility] OUTPATIEN INC T OFFICE 92895 [facility] F[facility]I OUT[facility] 4 4 [facility]ALTH NACHO T NEW 30 MEDICAL MINUTES G EMERGENCY 72867 [facility] DE[facility] 4 4 ROSALEE MOH VISIT EMERGENCY HIGH PHYSI SEVERITY& THREAT [facility] [place] - 4 4 [facility] OUTPATIEN INC T EMERGENCY 29350 [place] 4 4 [facility] DEPARTMEN INC T VISIT MODERATE SEVERITY EMERGENCY 82169 [facility]ORT[facility] DEPT 4 4 VISIT HIGH SEVERITY& THREAT FUNCJ EMERGENCY 64692 [place] 4 4 [facility] DEPART[facility] T VISIT HIGH/URGE NT SEVERITY [facility] [place] [facility] 4 [facility] T EMERGENCY 87081 ANKUR PASCUAL DEPT 4 4 BRYCE BRYCE VISIT HIGH SEVERITY& THREAT FUNJ OFFICE 44531 DANIEL SANCHEZ OUTPATIEN 4 4 HUBER HUBER T VISIT 15 MINUTES OFFICE 53232 SANCHEZ MICHELLE SANCHEZ MICHELLE CONSULTAT 4 4 ION NEW/ESTAB PATIENT 80 MIN OFFICE 85014 DANIEL TOLEDOPATINEENA 4 4 HUBER HUBER T NEW 30 MINUTES [facility] [place] [facility] T OFFICE 55902 MAEGAN ISSA OUTPATIEN 4 4 JARON JARON T VISIT 5 MINUTES OFFICE 67912 MAEGAN ISSA OUTPATIEN 4 4 JARON JARON T NEW 30 MINUTES EMERGENCY 23357 KIMBERLEE PASCUAL, 9 9 [facility] H[facility]URGE NT SEVERITY [facility] [place] [facility] 9 [facility] T EMERGENCY 85697 [place] 9 9 [facility] DEPART[facility] INC T VISIT LOW/MODER SEVERITY
--- OUTSIDE RECORDS SUMMARY | 2017-03-24 01:08 | External Medical Summary Rpt ---
Author Author , Organization [employer] Address Unknown Phone Unavailable Care Team Providers Care Mold Injector Name Role Phone ALFARIS MOH, ALFARIS Unavailable Unavailable [facility] Unavailable [place]available [place], [facility] [place] ARNOLD HUBER, ARNOLD Unavailable Unavailable UHBER ARNOLD HUBER, ARNOLD Unavailable Unavailable HUBER ATKINS TRA, ATKINS Unavailable Unavailable TRA ATKINS TRA, ATKINS Unavailable Unavailable TRA [facility] Unavailable Unavailable [facility] Unavailable Unavailable MEDICAL GROUP, [facility] Unavailable Unavailable OF ABISAI, [facility] Unavailable Unavailable BEINEKE D, BEINEKE D Unavailable Unavailable BEINEKE CARMEN, BEINEKE Unavailable Unavailable CARMEN CARBALLO, DUMONT Unavailable Unavailable HOW BESSON, BESSON Unavailable Unavailable BESSON DOMINIQUE, BESSON Unavailable Unavailable DOMINIQUE [facility] Unavailable Unavailable SUR[facility], [facility] Unavailable Unavailable [facility], [facility] BOLIEK KADIE, BOLIEK Unavailable Unavailable KADIE CERRATO, CERRATO Unavailable Unavailable CERRATO ALL, CERRATO ALL Unavailable Unavailable [facility] Unavailable Unavailable [facility] Unavailable Unavailable SERVICE, [facility] Unavailable Unavailable SERVICE, [facility] SVITLANA KILO, SVITLANA Unavailable Unavailable KILO CASE JUS, CASE JUS Unavailable [facility]available [facility] Unavailable Un[facility], [facility] Unavailable Unavailable ORTHOPAEDIC, [facility] CHESTNUT, CHESTNUT Unavailable Unavailable HUMPHREY [...] AND Unavailable Unavailable [facility]PAT[facility], [facility] Unavailable Unavailable HOSPITA, [facility] Unavailable Unavailable HOSPITA, [facility] RODRIGUEZ TRI, RODRIGUEZ TRI Unavailable Unavailable ANDREWS RHO, ANDREWS Unavailable Unavailable R[facility] Unavailable Unavailable CENTER, [facility] Unavailable Unavailable INC, [facility] Unavailable Unavailable HOSPITAL P, [facility] BOYER CHRISTEL, BOYER CHRISTEL Unavailable Unavailable BOYER CHRISTEL, BOYER CHRISTEL Unavailable Unavailable [facility], Unavailable Unavailable [facility] JAQUEZ, JAQUEZ Unavailable Unavailable VAUGHN TERA, VAUGHN Unavailable Unavailable BRYAN LONDONO Unavailable Unavailable ILUYOMADE ROT, Unavailable Unavailable ILUYOMADE ROT FELICIA DUARTE Unavailable Unavailable [facility] Unavailable Unavailable GROUP PS, [facility] Unavailable Unavailable [facility], [facility] Unavailable Unavailable MEDICAL G, [facility] MEDICAL G KOSTELIC LANA, Unavailable Unavailable KOSTELIC [...] SCALF LEI Unavailable Unavailable SCALF HUBER, SCALF HBUER Unavailable Unavailable SCIFRES ANG, SCIFRES Unavailable Unavailable ANG SCIFRES ANG, SCIFRES Unavailable Unavailable ANG ANNA, ANNA Unavailable Unavailable SHASHY PATY, SHASHY Unavailable Unavailable PATY KIMBERLY, KIMBERLY Unavailable Unavailable KIMBERLY MAT, Unavailable Unavailable KIMBERLY MAT BENSON JOSE ANGEL, BENSON Unavailable Unavailable JOSE ANGEL RODRIGUEZ SHABANA, RODRIGUEZ SHABANA Unavailable Unavailable RODRIGUEZ LEENA, RODRIGUEZ LEENA Unavailable Unavailable SOTINGEANU CARMEN, Unavailable Unavailable SOTINGEANU CARMEN [facility] Unavailable Unavailable EMERGENCY PHYS, [facility] [place] Unavailable Unavailable [facility], [facility] Unavailable Unavailable [address], [facility] WALKER FOR, WALKER Unavailable Unavailable FOR [facility] Unavailable Unavailable DEPT [facility], [facility] DEPT [facility] Unavailable Unavailable DEPT [facility], [facility] DEPT [facility]ZZ SANCHEZ, SANCHEZ Unavailable Unavailable SANCHEZ MICHELLE, SANCHEZ MICHELLE Unavailable Unavailable WELLS ELLEN, WELLS ELLEN Unavailable Unavailable WELLS SHA, WELLS SHA Unavailable Unavailable ROSENTHAL MAR, ROSENTHAL MAR Unavailable Unavailable SARAH KADIE, SARAH KADIE Unavailable Unavailable Purpose Continuity of Care Document - 01-04-2009 through 2016 Problems Code Diagnosis DOS Provider Status E669 OBESITY 02-25-2017 [facility] UNSPECIFIED PHYSICIANS GROUP I119 HYPERTENSIV 02-25-2017 [facility] E HEART PHYSICIANS DISEASE GROUP WITHOUT HEART FAILURE K449 DIAPHRAGMAT 02-25-2017 [facility] IC HERNIA PHYSICIANS W/O GROUP OBSTRUCTION OR GANGRENE R0600 DYSPNEA 02-25-2017 [facility] UNSPECIFIED PHYSICIANS GROUP R079 CHEST PAIN 02-25-2017 [facility] UNSPECIFIED PHYSICIANS GROUP J310 CHRONIC 02-17-2017 [facility] RHINITIS PHYSICIANS GROUP J329 CHRONIC 02-17-2017 [facility] SINUSITIS PHYSICIANS UNSPECIFIED GROUP J342 DEVIATED 02-17-2017 [facility] NASAL PHYSICIANS SEPTUM GROUP K5900 CONSTIPATIO 02-14-2017 [place] N MEDICAL UNSPECIFIED IMAGING ASS I998 OTHER 02-11-2017 [place] DISORDER OF [facility] INC CIRCULATORY SYSTEM R0602 SHORTNESS 02-11-2017 [place] OF BREATH [facility] INC G8929 OTHER 02-10-2017 [place] CHRONIC VALLEY PAIN INTERNAL MED N49591 PAIN IN 02-10-2017 [facility] LEFT VALLEY SHOULDER INTERNAL MED M5440 LUMBAGO 02-10-2017 [facility] WITH VALLEY SCIATICA INTERNAL UNSPECIFIED MED SIDE R002 PALPITATION 01-31-2017 [facility] S PHYSICIANS GROUP R5383 OTHER 01-31-2017 [facility] FATIGUE PHYSICIANS GROUP M5136 OTH 01-30-2017 [facility] DIS[facility] ORTHOPAEDIC DEGEN LUM[place] REGION E559 VITAMIN D 01-29-2017 [facility] DEFICIENCY MAI UNSPECIFIED HOLDINGS M545 LOW BACK 01-29-2017 [facility] S PSC R072 PRECORDIAL 01-29-2017 [facility] PAIN PHYSICIANS, PLLC R0789 OTHER CHEST 01-29-2017 [place] PAIN [facility]ICAL [facility]ING ASS R110 NAUSEA 01-29-2017 [facility] P [id number] OTHER 01-29-2017 [facility] SPECIFIED MAI POSTPROCEDU HOLDINGS [facility] STATES M792 NEURALGIA 01-27-2017 [place] AND VALLEY NEURITIS INTERNAL UNSPECIFIED MED I10 ESSENTIAL 01-26-2017 [facility] HYPERTENSIO INC N M542 CERVICALGIA 01-26-2017 [facility] INC C89615 SPONDYLOSIS 01-22-2017 [place] W/O MEDICAL MYELOPATH/R IMAGING ASS ADICULOPATH Y CERV RGN R202 PARESTHESIA 01-22-2017 [facility] SKIN MEDICAL IMAGING ASS [id number] STRAIN 01-22-2017 [facility] P NECK LEVL INIT ENC Z9884 BARIATRIC 01-21-2017 [facility] SURGERY MEM [facility] STATUS INC R200 ANESTHESIA 01-20-2017 [facility] OF SKIN MEM [facility]OS[facility] INC R51 HEADACHE 01-20-2017 [facility] INC [id number] STRAIN 01-16-2017 [facility] MUSCLE & PHYSICIANS, TENDON UNS PLLC WALL THORAX INIT ENC M797 FIBROMYALGI 01-11-2017 [place] [facility] HOSPITAL T44551 OTHER LONG 01-11-2017 [place] TERM [facility] CURRENT [facility]OSPITAL DRUG THERAPY Z882 ALLERGY 01-11-2017 [place] [facility] S STATUS Z886 ALLERGY 01-11-2017 [place] [facility]US TO [facility] ANALGESIC HOSPITAL AGENT STATUS Z888 ALLERGY 01-11-2017 [place] STATUS OTH COMMUNITY RX MEDS & HOSPITAL BIOLOG [facility] ST[facility] H9203 OTALGIA 01-10-2017 [place] BILATERAL [facility] INC I209 ANGINA 01-10-2017 [place] PECTORIS [facility] UNSPECIFIED INC R071 CHEST PAIN 01-07-2017 [facility] INTERNAL MED J069 ACUTE UPPER 01-04-2017 [facility] RESPIRATORY INC INFECTION UNSPECIFIED Z720 TOBACCO USE 01-04-2017 [facility] INC I99317 MUSCLE 12-25-2016 [place] SPASM OF MEM HOS[facility] BACK INC R1013 EPIGASTRIC 12-25-2016 [place] PAIN [place] INTERNAL MED R4702 DYSPHASIA 12-25-2016 [place] INTERNAL MED B078 OTHER VIRAL 12-23-2016 [facility] WART[facility] K219 GASTRO-ESOP 12-23-2016 [facility] WITHOUT ESOPHAGITIS 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 12-23-2016 [facility] ESOPHAGUS [place] K30 FUNCTIONAL 12-23-2016 [facility] DYSPEPSIA HEALTH [place] L218 OTHER 12-23-2016 [facility] SEBORRHEIC DERMATITIS L538 OTHER 12-23-2016 [facility] SPECIFIED ERYTHEMATOU S CONDITIONS R208 OTHER 12-23-2016 [facility] DISTURBANCE S OF SKIN SENSATION R238 OTHER SKIN 12-23-2016 [facility] CHANGES K5903 DRUG 12-17-2016 [place] INDUCED [facility] CONSTIPATIO INC N [id number] ADVERSE 12-17-2016 [place] EFFECT [facility] OTHER INC OPIOIDS INITIAL ENCOUNTER R1319 OTHER 12-13-2016 [place] DYSPHAGIA MEM HOS[facility] INC K910 VOMITING 12-12-2016 [place] FOLLOWING MEM HOS[facility] GASTROINTES INC TINAL SURGERY R609 EDEMA 12-12-2016 [place] UNSPECIFIED MEM HOSP INC E6601 MORBID 12-11-2016 [facility] SEVERE HEALTH OBESITY DUE [place] TO EXCESS CALORIES E7800 PURE 12-11-2016 [facility] HYPERCHOLES HEALTH TEROLEMIA MONALISA UNSPECIFIED N393 STRESS 12-11-2016 [facility] INCONTINENC HEALTH E FEMALE MONALISA MALE Z903 ACQUIRED 12-11-2016 [facility] ABSENCE OF HEALTH STOMACH OMNALISA P20473 ENCOUNTER 12-05-2016 [facility] FOR OTHER HEALTH PREPROCEDUR MEDICAL AL GROUP EXAMINATION K210 GASTRO-ESOP 11-22-2016 [facility] HAGEAL PHYSICIANS, REFLUX PLLC DISEASE W/ ESOPHAGITIS K625 HEMORRHAGE 11-19-2016 [place] OF ANUS AND [place] RECTUM INTERNAL MED M546 PAIN IN 11-08-2016 [facility] THORACIC PHYSICIANS, SPINE PLLC M19665 PAIN IN 10-14-2016 [place] UNSPECIFIED MEDICAL HIP IMAGING ASS M533 SACROCOCCYG 10-14-2016 [place] EAL MEDICAL DISORDERS IMAGING ASS NEC L333XVE CONTUSION 10-14-2016 [facility] LOWER BACK PHYSICIANS, & PELVIS PLLC INITIAL ENCOUNTER A9042VP UNSPECIFIED 10-14-2016 [place] INJURY MEDICAL LOWER BACK IMAGING ASS INITIAL ENCOUNTER D6046LG UNSPECIFIED 10-14-2016 [place] INJURY OF MEDICAL PELVIS IMAGING ASS INITIAL ENCOUNTER H3581 RETINAL 10-11-2016 SCIFRES ANG EDEMA R040 EPISTAXIS 10-10-2016 [facility] VALLEY INTERNAL MED E6609 OTHER 10-08-2016 [facility] OBESITY DUE BARIATRIC TO EXCESS SURGICAL CALORIES R109 UNSPECIFIED 10-08-2016 [facility] ABDOMINAL BARIATRIC PAIN SURGICAL J3489 OTHER 10-06-2016 [facility] SPECIFIED PHYSICIANS, DISORDERS PLLC NOSE AND NASAL SINUSES R05 COUGH 10-06-2016 [place] [facility] R0981 NASAL 10-06-2016 [place] CONGESTION [facility]ICAL IMAGING ASS J320 CHRONIC 10-03-2016 [facility] SINUSITIS W42690 POSTPROCEDU 10-03-2016 [place] RAL HEMORR MEM HOS[facility] DS INC ORGAN/STRUC FLW DS PROC E785 HYPERLIPIDE 10-02-2016 [facility] UNSPECIFIED MEDICAL G Z52982 ENCOUNTER 09-28-[address] [place] [facility] P AL CARIOVASCUL AR EXAM T86540 ENCOUNTER 09-28-2016 [facility] P AL LABORATORY EXAM A6004 HERPESVIRAL 09-27-2016 [facility] PHYSICIANS VULVOVAGINI GROUP TIS N760 ACUTE 09-27-2016 [facility] VAGINITIS PHYSICIANS GROUP C757A5V CONCUSSION 09-21-2016 [place] WITHOUT LOC [facility] HOS[facility] INITIAL INC ENCOUNTER D7671KG UNSPECIFIED 09-21-2016 [place] INJURY OF MEDICAL HEAD IMAGING ASS INITIAL ENCOUNTER H6903 PATULOUS 09-19-2016 [facility] EUSTACHIAN TUBE BILATERAL P37938 UNSPECIFIED 09-18-2016 [facility] PHYSICIANS OBSTRUCTION GROUP EUSTACHIAN TUBE BILAT J309 ALLERGIC 09-18-2016 [facility] RHINITIS PHYSICIANS UNSPECIFIED GROUP R42 DIZZINESS 09-18-2016 [facility] AND PHYSICIANS GIDDINESS GROUP R590 LOCALIZED 09-04-2016 [facility] P Z6834 BODY MASS 09-04-2016 [facility] INDEX BMI HEALTH 34.0-34.9 MEDICAL ADULT GROUP K5909 OTHER 09-03-2016 [facility] CONSTIPATIO GROUND N FAMILY CLINI R112 NAUSEA WITH 09-03-2016 [facility] VOMITING GROUND UNSPECIFIED FAMILY CLINI R748 ABNORMAL 09-03-2016 [facility] LEVELS OF GROUND OTHER SERUM FAMILY ENZYMES CLINI Z111 ENCOUNTER 09-02-2016 [facility] DEPT RESPIRATORY JAZZ TUBERCULOSI S M549 DORSALGIA 09-01-2016 [facility] UNSPECIFIED PHYSICIANS, PLLC R197 DIARRHEA 09-01-2016 [facility] UNSPECIFIED PHYSICIANS, PLLC D15526G ADVERSE 09-01-2016 [facility] P SRI INITIAL ENCOUNTER R11980 UNS PLACE 09-01-2016 [facility] OF OCCUR EXT R195 OTHER FECAL 08-30-2016 [facility] ABNORMALITI INC ES Z202 CONTACT 08-30-2016 [facility] WITH DISTRICT EXPOSURE HLTH DEPT INFECT JAZZ SEXUAL MODE TRANSMS Z23 ENCOUNTER 08-30-2016 [facility] FOR DISTRICT IMMUNIZATIO HLTH DEPT N JAZZ R5381 OTHER 08-29-2016 [facility] MALAISE PHYSICIANS GROUP R9431 ABNORMAL 08-29-2016 [facility] ELECTROCARD PHYSICIANS IOGRAM GROUP Z8249 FAMILY HX 08-23-2016 [facility] ISCHEMIC PHYSICIANS HRT DZ OTH GROUP DZ CIRC SYSTEM Z54614 LYMPHOCYTOP 08-21-2016 [place] ENIA [facility] INC J3089 OTHER 08-21-2016 [facility]ERG[facility] RHINITIS [place] J4520 MILD 08-21-2016 [facility] INTERMITTEN PARTNERS OF T ASTHMA [place] UNCOMPLICAT ED L892HIS OTHER 08-21-2016 [facility] ADVERSE PARTNERS OF FOOD [place] REACTIONS NEC SUBSEQUENT ENC M791 MYALGIA 08-17-2016 [facility] PH[facility]ICIANS, PLLC M898X9 OTHER 08-12-2016 [place] SPECIFIED MEDICAL DISORDERS IMAGING ASS BONE UNSPECIFIED [...] & DANDER R591 GENERALIZED 08-05-2016 [place] ENLARGED [facility] P I208 OTHER FORMS 08-02-2016 [place] OF ANGINA [facility] P Y66198 PAIN IN 08-02-2016 [place] RIGHT KNEE MEDICAL IMAGING ASS R55 SYNCOPE AND 08-02-2016 [facility] COLLAPSE PHYSICIANS, PLLC R840ZNI UNSPECIFIED 08-02-2016 [place] INJURY OF MEDICAL NECK IMAGING ASS INITIAL ENCOUNTER Q1753NL UNS INJURY 08-02-2016 [place] RT LOWER MEDICAL LEG INITIAL IMAGING ASS ENCOUNTER N281 CYST OF 08-01-2016 [facility] KIDNEY [facility] P E28966 OTHER 07-31-2016 [facility]HMA EQUIPMENT INC R209 UNSPECIFIED 07-29-2016 [facility] PHYSICIANS, DISTURBANCE PLLC S OF SKIN SENSATION 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 IRRITABLE 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 GROUP WITHOUT DIARRHEA R102 PELVIC AND 07-24-2016 [facility] PERINEAL PHYSICIANS PAIN GROUP N831 CORPUS 07-22-2016 [facility] LUTEUM CYST PHYSICIANS GROUP N920 EXCESS & 07-22-2016 [facility] FREQUENT PHYSICIANS MENSTRUATIO GROUP N W/REGULAR CYCLE Q08117N STRAIN UNS 07-22-2016 [facility] MUSCLE FASC PHYSICIANS, TEND THIGH PLLC RT INITIAL ENC Z7251 HIGH RISK 07-22-2016 [place] [facility]UA [facility] L BEHAVIOR INC R12 HEARTBURN 07-18-2016 [facility] H938X9 OTHER 07-17-2016 [facility] SPECIFIED PHYSICIANS DISORDERS GROUP OF EAR UNSPECIFIED EAR J302 OTHER 07-17-2016 [facility] SEASONAL PHYSICIANS ALLERGIC GROUP RHINITIS R1310 DYSPHAGIA 07-13-2016 [place] UNSPECIFIED MEDICAL IMAGING ASS B6483WG LACERATION 07-13-2016 [facility] W/O FOREIGN PHYSICIANS, BODY SCALP PLLC INITIAL ENC C8826LQ SPRAIN 07-13-2016 [facility] UNSPECIFIED PHYSICIANS, SITE LT PLLC KNEE INITIAL ENCNTR R6889 OTHER 07-10-2016 [facility] SYMPTOMS HOSPITA AND SIGNS E780 PURE 07-09-2016 [facility] HYPERCHOLES BARIATRIC TEROLEMIA SURGICAL E876 HYPOKALEMIA 07-09-2016 [facility] P Z1231 ENCOUNTER 07-08-2016 [place] SCREENING MEDICAL MAMMO MALIG IMAGING ASS NEOPLASM BREAST H6990 UNSPECIFIED 07-07-2016 [facility] TUBE PHYS PSC DISORDER UNS EAR H938X3 OTHER 07-07-2016 [facility] SPECIFIED HEALTH DISORDERS [place] OF EAR BILATERAL M5432 SCIATICA 07-07-2016 [facility] LEFT SIDE EMERGENCY PHYS PSC R1010 UPPER 07-05-2016 [facility] ABDOMINAL PHYSICIANS, PAIN PLLC UNSPECIFIED R1084 GENERALIZED 06-29-2016 [facility] ABDOMINAL PHYSICIANS, PAIN PLLC I880 NONSPECIFIC 06-27-2016 [facility] MESENTERIC PHYSICIANS, PLLC LYMPHADENIT IS R100 ACUTE 06-27-2016 [facility] ABDOMEN AMBULANCE SERVICE R1031 RIGHT LOWER 06-26-2016 [facility] PAIN PHYS U50303 RIGHT LOWER 06-26-2016 [facility] ABDOMINAL HOSPITA TENDERNESS N200 CALCULUS OF 06-24-2016 [place] KIDNEY MEDICAL IMAGING ASS 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 06-11-2016 [...] EXPS TO NONIONIZING RAD R9439 ABNORMAL 04-08-2016 [facility] RESULT OT HEALTH CARDIOVASCU [place] LR FUNCTION STUDY I340 NONRHEUMATI 04-04-2016 [facility] INSUFFICIEN [...] [facility] TENDINITIS VALLEY RIGHT INTERNAL SHOULDER MED G84792 ATYP SQ 03-13-2016 [facility] CELLS UNDET LLC SIGNIFICANC E CYTOL SMER CERV T67973 ENCOUNTER 03-13-2016 [facility]AC[facility] MERCHANDISER EXAM LLC GENERAL RTN W/ABNORMAL FIND F04460 ENCOUNTER 03-13-2016 [facility]AC[facility] MERCHANDISER EXAM PHYSICIANS GENERAL RTN GROUP W/O ABNORMAL FIND Z113 ENCOUNTER 03-13-2016 [facility], SCREEN LLC INFECTIONS SEXL MODE TRANSMISSN M778 OTHER 12-04-2015 [facility] ENTHESOPATH VALLEY IES NOT INTERNAL ELSEWHERE MED CLASSIFIED 49001 UNSPECIFIED 07-11-2015 [facility] TRA VIRAL WARTS 2167 [...] SKIN 7020 ACTINIC 07-11-2015 [facility] KERATOSIS 31243 INFLAMED 07-11-2015 [facility] SEBORRHEIC KERATOSIS V700 ROUTINE 06-27-2015 [facility] DEPT [email or web address] FACL 04239 MORBID 06-20-2015 [facility] OBESITY BARIATRIC SURGICAL 01648 PAIN IN 06-20-2015 [facility] JOINT, SITE MAI HOLDINGS UNSPECIFIED 7823 EDEMA 06-20-2015 [facility] MAI HOLDINGS 18878 OTHER 06-20-2015 [facility] DYSPNEA AND MA[facility] HOLDINGS RESPIRATORY ABNORMALITI ES 7871 HEARTBURN 06-20-2015 [facility] MAI HOLDINGS 7904 NONSPEC 06-20-2015 [facility] ELEVATION BARIATRIC OF LEVELS SURGICAL OF TRANSAMINAS E/LDH V4586 BARIATRIC 06-20-2015 [facility] SURGERY BARIATRIC STATUS SURGICAL V7612 OTHER 06-19-2015 [place] SCREENING MEDICAL MAMMOGRAM IMAGING ASS 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 MED 2689 UNSPECIFIED 06-12-2015 [facility] VITAMIN D [place] DEFICIENCY INTERNAL MED 5718 OTHER 06-12-2015 [facility] CHRONIC VALLEY NONALCOHOLI INTERNAL C LIVER MED DISEASE 7905 OTHER 06-12-2015 [facility] NONSPECIFIC [place] ABNORMAL INTERNAL SERUM MED ENZYME LEVELS 67351 UNSPEC 05-09-2015 [facility] DISORDERS PHYSICIANS BURSAE&TEND GROUP ONS SHOULDER REGION 7262 OTHER 05-09-2015 [facility] AFFECTIONS PHYSICIANS OF SHOULDER GROUP REGION NEC 20860 OBESITY, 05-04-2015 [facility] UNSPECIFIED OLOGY AND HEPATOL 3674 PRESBYOPIA 04-28-2015 [place]IF[place]G 02181 CHEST PAIN 04-28-2015 [facility] UNSPECIFIED HEALTH MEDICAL GROUP 70293 ABDOMINAL 04-25-2015 [place] PAIN, COMMUNTIY UNSPECIFIED HOSPITA SITE 4019 UNSPECIFIED 04-16-2015 [facility] ESSENTIAL [facility] HYPERTENSIO INC N 5990 URINARY 04-16-2015 [facility] TRACT PHYSICIANS, INFECTION [facility] SITE NOT SPECIFIED 7948 NONSPECIFIC 04-16-2015 [facility] ABNORMAL [facility] RESULTS INC LIVR FUNCTION STUDY 5739 UNSPECIFIED 04-14-2015 [facility] [place] DISORDER RADIOLOGY OF LIVER 7906 OTHER 04-14-2015 [facility] ABNORMAL COMMUNTIY BLOOD HOSPITA CHEMISTRY 5939 UNSPECIFIED 04-06-2015 [place] DISORDER MEDICAL OF KIDNEY IMAGING ASS AND URETER 7891 HEPATOMEGAL 04-06-2015 [facility] Y OLOGY AND HEPATOL V140 PERSONAL 04-05-2015 [facility] HISTORY OF [facility] ALLERGY TO HOSPITAL P PENICILLIN 90093 ABDOMINAL 04-03-2015 ARNOLD HUBER PAIN, GENERALIZED 5758 OTHER 04-01-2015 [place] SPECIFIED [facility] DISORDER OF HOSPITAL P GALLBLADDER 79211 OTHER 04-01-2015 [place] SPECIFIED MEDICAL DISORDER OF IMAGING ASS KIDNEY AND URETER 70867 ABDOMINAL 04-01-2015 [facility] PAIN RIGHT MEDICAL UPPER IMAGING ASS QUADRANT 82907 ABDOMINAL 04-01-2015 [place] PAIN, [facility]STRIC [facility]PITAL P 7295 PAIN IN 03-29-2015 [facility] SOFT COMMUNTIY TISSUES OF HOSPITA LIMB V4589 OTHER 03-29-2015 [facility] POSTSURGICA COMMUNTIY L STATUS HOSPITA OTHER 88071 OTHER 03-24-2015 [facility] MALAISE AND COMMUNTIY FATIGUE HOSPITA V6700 FOLLOW-UP 03-21-2015 [facility] [place] EXAMINATION RADIOLOGY FOLLOWING UNSPEC SURGERY 64334 ESOPHAGEAL 03-20-2015 [place] REFLUX ANESTHESIA GROUP PS 6256 FEMALE 03-20-2015 [facility] STRESS COMMUNTIY INCONTINENC HOSPITA E 53848 PAIN IN 03-20-2015 [facility] JOINT, BARIATRIC MULTIPLE SURGICAL SITES 88599 DIASTASIS 03-20-2015 [place] OF MUSCLE COMMUNTIY HOSPITA 7892 SPLENOMEGAL 03-20-2015 [facility] Y COMMUNTIY HOSPITA V8543 BODY MASS 03-20-2015 [facility] INDEX COMMUNTIY 50.0-59.9 HOSPITA ADULT 2639 UNSPECIFIED 03-14-2015 [facility] COMM[facility]TI[facility] PROTEIN-TEA HOSPITA [place]IE MALNUTRITIO N 93992 MIGRAINE 03-07-2015 [facility] UNSP W/O BARIATRIC 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 MIGRAINOSUS 85419 OTHER 03-07-2015 [facility] URINARY BARIATRIC INCONTINENC SURGICAL E 6929 CONTACT 03-06-2015 [facility] HUBER DERMATITIS& OTHER ECZEMA DUE UNSPEC CAUSE 6822 CELLULITIS 03-02-2015 [facility] P V148 PERSONAL 03-02-2015 [facility] P SPEC MEDICINAL AGTS V571 OTHER 02-22-2015 [facility] PHYSICAL [facility] THERAPY INC 2724 OTHER AND 02-20-2015 [place] [facility] HYPERLIPIDE LILIANE 7245 UNSPECIFIED 02-20-2015 [place] [facility] V7283 OTHER 02-20-2015 [place] SPECIFIED [facility] PRE-OPERATI HOSPITA VE EXAMINATION 2875 UNSPECIFIED 02-15-2015 [facility] P PENIA 7932 NONSPC ABN 02-10-2015 [place] [facility]&OTH [facility] EXAM OTH INTRTHOR ORGN V7282 PRE-OPERATI 02-10-2015 [place] [facility] RESPIRATORY FOUNDATION EXAMINATION 5930 NEPHROPTOSI 02-09-2015 [facility] P 7802 SYNCOPE AND 02-01-2015 [facility] G 4139 OTHER AND 01-18-2015 [facility] P PECTORIS 40708 SHORTNESS 01-18-2015 [facility]ICAL [facility] 19615 OTHER CHEST 01-18-2015 [place] [facility] [facility] P 29037 OSTEOARTHRO 12-30-2014 [facility] S INVLV MX SITES BUT [place] 78517 PAIN IN 11-09-2014 [place] [facility], MEDICAL SHOULDER IMAGING ASS REGION V5832 ENCOUNTER 11-09-2014 [place] FOR REMOVAL [facility] P 19493 PILAR CYST 11-02-2014 [facility] 15905 UNSPECIFIED 10-06-2014 [facility] PHYS IN CCE & UNS SITE 7840 HEADACHE 10-06-2014 [place] [facility] 07231 ATROPHIC 09-16-2014 [place] [facility] WITHOUT HOSPITA MENTION OF HEMORRHAGE 99877 OTHER SPEC 09-16-2014 [facility] WITHOUT MENTION HEMORRHAGE 50890 DYSPHAGIA 09-16-2014 [place] UNSPECIFIED ANESTHESIA GROUP PS 6869 UNSPEC 08-17-2014 [facility] LOCAL INFECTION SKIN&SUBCUT ANEOUS TISSUE V7284 UNSPECIFIED 08-09-2014 [facility] PRE-[facility]AT[facility] INC VE EXAMINATION 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 7019 UNSPECIFIED 08-04-2014 [facility] HYPERTROPHI C&ATROPHIC CONDITION SKIN 02389 OTHER 08-04-2014 [facility] SEBORRHEIC KERATOSIS 7851 PALPITATION 08-04-2014 [facility] G V7281 PRE-OPERATI 07-21-2014 [facility] CARDIOV[facility] MEDICAL G LAR EXAMINATION 60534 PAINFUL 07-05-2014 [facility] RESPIRATION V771 SCREENING 05-24-2014 [facility] DIABETES MELLITUS 470 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 4779 ALLERGIC 03-17-2014 [facility] RHINITIS CAUSE UNSPECIFIED 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 01-10-2014 [facility] MAXILLARY SINUSITIS V0481 NEED 01-06-2009 [facility] C CENTRAL VACCINATION BANK ACCT &INOCULATIO N FLU 96408 PAIN IN 01-04-2009 [place] [facility] PELVIC IM[facility] REG[facility] AND ASSOCIATES THIGH 88527 DISPLCMT 01-04-2009 [place] LUMBAR MEDICAL INTERVERT 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 8460 SPRAIN AND 01-04-2009 [place] STRAIN OF [employer] 8472 LUMBAR 01-04-2009 [place] [facility] STRAIN INC 99702 CONTUSION 01-04-2009 [employer] BACK [employer] 51211 CONTUSION 01-04-2009 [employer] [id number] PLACE OF 01-04-2009 [place] [facility], [facility] [id number] FALL FROM 01-04-2009 [place] OTHER MEDICAL SLIPPING IMAGING TRIPPING OR ASSOCIATES [...] 42 ZA 60 17 17 59 PH WA 1 23 AR IN MA E CY [...] 1 70 PH CE AR TA MA IN CY NO PH #3 93 7. 8 5- 32 5 OS 47 03 03 10 10 00 CL Ac EL 78 -0 -3 .0 00 IN ti TA 10 7- 1- 00 00 IC ve IN 47 20 20 42 01 17 17 [...] 0 CY MG CA PS UL E WA 65 03 03 20 5 00 CL [...] 17 53 PH E 6 48 AR WA MA OP CY 50 MC G SP [...] 42 ZA 60 17 17 30 PH WA 1 05 AR IN MA E CY [...] MG #3 TA 93 BL 8 ET WA 59 02 03 10 5 00 RI [...] 42 ZA 81 17 17 08 PH WA 0 66 AR IN MA E CY [...] 17 53 PH E 9 48 AR WA MA OP CY 50 MC G SP [...] 5 25 PH CE AR TA MA IN CY NO PH OF CY 7. NT [...] 12 01 20 10 00 CL Ac WA 46 -2 -2 .0 00 IN ti [...] 12 01 14 7 00 CL Ac WA 46 -1 -2 .0 00 IN ti [...] 17 53 PH E 9 48 AR WA MA OP CY 50 MC G SP RA Y ME 59 02 02 00 21 6 CL 18 GA Ac TH 74 -1 -2 .0 IN 75 IN ti YL 60 2- 6- 00 IC 10 EY ve WA 00 20 20 ED 10 09 09 PH IN NI 3 AR CH SO MA AE LO CY L NE S 4 MG DO SE PK CY 59 02 02 00 21 7 CL 18 GA Ac CL 74 -1 -2 .0 IN 75 IN ti OB 60 2- 6- 00 IC 11 EY ve EN 17 20 20 ZA 70 09 09 PH IN WA 6 AR CH IN MA AE E [...] [place] No VACCIN 2008 ON CO E [facility] 0.5 ML DOSAGE IM USE Procedures Procedure DOS Code Location Performer Comment ECG 68197 [facility] ROUTINE 7 PHYSICIAN ECG S GROUP W/LEAST 12 LDS I&R ONLY APPLICATI 76647 [place] [facility] 1/> AREAS HOT/COLD PACKS APPL 60516 [place] [facility]ITY [facility]/> AREAS INC INC TRACTION MECHANICA L APPL 77219 [place] [facility] MODALITY 7 [facility]/> AREAS INC INC ELEC STIMJ UNATTENDE D APPL 38067 [place] [facility]ITY [facility] 1/> AREAS INC INC ELEC STIMJ UNATTENDE D APPL 81404 [place] [facility] MOD[facility]ITY [facility] 1/> AREAS INC INC TRACTION MECHANICA L APPLICATI 78870 [place] [facility] MODALITY INC INC 1/> AREAS HOT/COLD PACKS RADEX 28546 [place] [facility] ABDOMEN 7 MEDICAL COMPL IMAGING W/DCBTS&/ ASS ERC VIEWS ECG 95661 [facility] ROUTINE 7 PHYSICIAN ECG S GROUP W/LEAST 12 LDS I&R ONLY APPLICATI 10402 [place] [facility] MODALITY INC INC 1/> AREAS HOT/COLD PACKS APPL 85525 [place] [facility] MODALITY 7 [facility] 1/> AREAS INC INC TRACTION MECHANICA L APPL 93060 [place] [facility] MODALITY 7 [facility] 1/> AREAS INC INC ELEC STIMJ UNATTENDE D ECG 65423 [place] [facility] ROUTINE [facility] ECG INC INC W/LEAST 12 LDS TRCG ONLY W/O I&R APPL 57533 [place] [facility] MODALITY 7 [facility] 1/> AREAS INC INC ELEC STIMJ UNATTENDE D APPL 53546 [place] [facility] MOD[facility] 1/> AREAS INC INC TRACTION MECHANICA L APPLICATI 12026 [place] [facility] MODALITY INC INC 1/> AREAS HOT/COLD PACKS APPLICATI 12775 [place] [facility] MODALITY INC INC 1/> AREAS HOT/COLD PACKS APPL 54398 [place] [facility] MODALITY 7 [facility] 1/> AREAS INC INC ELEC STIMJ UNATTENDE D ECG 87614 [facility] ROUTINE 7 PHYSICIAN ECG S GROUP W/LEAST 12 LDS I&R ONLY THERAPEUT 12405 [place] [facility] PX 1/> 7 [facility] AREAS INC INC EACH 15 MIN EXERCISES ECG 06242 [place] [facility] ROUTINE 7 [facility] ECG INC INC W/LEAST 12 LDS TRCG ONLY W/O I&R ECG 39374 [place] [facility] ROUTINE 7 [facility] ECG INC INC W/LEAST 12 LDS TRCG ONLY W/O I&R GROUND A0425 [facility] AMBULANCE PER SERVICE SERVICE STATUTE MILE RADIOLOGI 57756 [place] C EXAM 7 [facility] CHEST 2 INC INC VIEWS FRONTAL&L ATERAL ECG 34769 [facility] ROUTINE 7 PHYSICIAN ECG S, PLLC W/LEAST 12 LDS I&R ONLY ORGANIC 82204 [facility] ACID 1 7 [facility] QUANTITAT [place] [address] LAB [facility] PARATHORM 7 [place] [address] LAB [facility] ZINC 7 MAI [facility] HOLDINGS BLOOD 37648 [place] [facility] COUNT [facility] COMPLETE INC INC AUTO&AUTO DIFRNTL WBC MRI 15399 [facility] SPINAL 7 CANAL ORTHOPAED LUMBAR ICS PSC [place] [address] LAB [facility] FERRITIN 7 [place] [address] LAB [facility] MAGNESIUM 7 [place] [address] [place] [facility] TROPONIN 7 [facility] QUANTITAT INC INC SABIHA CREATINE 34437 [place] [facility] KINASE 7 [facility] TOTAL INC INC PREALBUMI 31708 [facility] N 7 MAI MAI HOLDINGS HOLDINGS AMB A0427 [facility] 7 AMBULANCE AMBULANCE ALS SERVICE SERVICE EMERGENCY TRANSPORT LEVEL 1 [place] [address] LAB [facility] PHOSPHORU 7 MAI MAI [place] [address] LAB [facility] THIAMINE- 7 [facility]I [facility] VITAMIN HOLDINGS HOLDINGS B-1 25 67695 LAB [facility] HYDROXY 7 [facility]I [facility] INCLUDES HOLDINGS [place] [address] LAB [facility] THYROID 7 MAI [facility] STIMULATI HOLD[place] [address] LAB [facility] TOCOPHERO 7 MAI MAI L ALPHA [place] [address] LAB [facility] LAB [facility] VITAMIN A 7 MAI MAI HOLDINGS HOLDINGS COMPREHEN 52651 [place] [facility] SIVE 7 [facility] METABOLIC INC INC PANEL CREATINE 13942 [place] [facility] KINASE MB 7 [facility] [place] [address] LAB [facility] FOLIC 7 MAI MAI [place] [address] LAB [facility] IRON 7 MAI MAI [facility]INGS HOLDINGS APPLICATI 43996 [place] [facility] ON [facility] MODALITY INC INC 1/> AREAS HOT/COLD PACKS APPL 38352 [place] [facility] MODALITY 7 [facility] 1/> AREAS INC INC TRACTION MECHANICA L APPL 60796 [place] [facility] MODALITY 7 [facility] 1/> AREAS INC INC ELEC STIMJ UNATTENDE D THERAPEUT 02508 [place] [facility] IC PX 1/> 7 [facility] AREAS INC INC EACH 15 MIN EXERCISES RADEX 04564 [facility] DUARTE SPINE 7 [place] LUMBOSACR ORTHOPAED AL 2/[address] [place] [address] [facility] CERVICAL 7 MEDICAL MEDICAL SPINE W/O IMAG[place] [address] [place] [facility] HEAD/BRAI 7 MEDICAL N W/O IMAGING CONTRAST ASS MATERIAL ECG 68296 [place] [facility] ROUTINE [address] [facility] W/LEAST P 12 LDS I&R ONLY ECG 62306 [place] [facility] ROUTINE 7 [facility] ECG INC INC W/LEAST 12 LDS TRCG ONLY W/O I&R CYANOCOBA 75257 [place] [facility] LYUBOV 7 [facility] VITAMIN INC INC B-12 COLLECTIO 73454 [place] [facility] N VENOUS 7 [facility] BLOOD INC INC VENIPUNCT URE 25 70176 [place] [facility] HYDROXY 7 [facility] INCLUDES INC [place] [address] [place] [facility] FOLIC 7 [facility] ACID INC INC SERUM UNCLASSIF J3490 [place] [facility] IED DRUGS 7 [facility] INC INC THERAPEUT 66165 [place] [facility] IC 7 [facility] PROPHYLAC INC INC TIC/DX INJECTION SUBQ/IM URNLS DIP 91144 [place] [facility] STICK/TAB INC INC LET REAGENT AUTO MICROSCOP Y UNCLASSIF J3490 [place] [facility] IED DRUGS 7 [facility] INC INC DESTRUCTI 10655 LOUISA JASSO ON BENIGN 7 LESIONS UP TO 14 [place] [address] [facility]DA[facility] MANDAEN TRACT 7 [facility] W/WO DELAYED IMAGES W/KUB RADEX 82836 [place] [facility] ABDOMEN 1 7 MEDICAL IMAGING ANTEROPOS ASS TERIOR VIEW TX PROC G0238 [place] [facility] IMPRV [facility] RESP INC INC FUNCT NOT G0237 FCE-FCE 15MIN IV [address] [place] [facility] INFUSION 7 [facility] THERAPY/P INC INC ROPHYLAXI S /DX 1ST TO 1 HR BLOOD 65684 [place] [facility] COUNT [facility] COMPLETE INC INC AUTO&AUTO DIFRNTL WBC COMPREHEN 07421 [place] [facility] SIVE 7 [facility] METABOLIC INC INC PANEL RAD EXP G9500 [place] [facility] INDICES/E 7 MEDICAL XP TM & IMAGING NUMB ASS FLUORO IMAGES DOC RADEX 60973 [place] [facility] ESOPHAGUS 7 MEDICAL IMAGING ASS ANES 89360 [facility] INTRAPERI 7 [place] TONEAL ANESTHESI UPPER A ABDOMEN W/LAPS NOS INJECTION J1650 [facility] MANDAEN 7 [facility] ENOXAPARI [facility] N SODIUM 10 MG INJECTION J0330 [facility] MANDAEN 7 [facility] SUCCINYLC [facility] HOLINE CHLORIDE UP TO 20 MG INJECTION J2405 [facility] MANDAEN 7 [facility] ONDANSETR [facility] ON HCL PER 1 MG INJECTION J2704 [facility] MANDAEN PROPOFOL 7 [facility] 10 MG [facility] INJECTION J2710 [facility] MANDAEN 7 [facility] NEOSTIGMI [facility] NE METHYLSUL FATE UP TO 0.5 MG INJECTION J3010 [facility] MANDAEN FENTANYL 7 [facility] CITRATE [facility] 0.1 MG LAPS RPR 48300 [facility] SANCHEZ PARAESPHG 7 [facility] L HRNA MEDICAL INCL GROUP FUNDPLSTY W/O MESH INJECTION J1100 [facility] MANDAEN 7 [facility] DEXAMETHO [facility] SONE SODIUM PHOSPHATE 1 MG INJECTION J1170 [facility] MANDAEN 7 [facility] HYDROMORP [facility] KURTIS UP TO 4 MG COLLECTIO 88827 [facility] MANDAEN N VENOUS 7 [facility] BLOOD [facility] VENIPUNCT URE BLOOD 92701 [facility] MANDAEN COUNT 7 [facility] COMPLETE [facility] AUTOMATED GLUCOSE 82340 [facility] MANDAEN QUANTITAT 7 [facility] SABIHA BLOOD [facility] XCPT REAGENT STRIP HEMOGLOBI 09171 [facility] MANDAEN N 7 [facility] GLYCOSYLA [facility] LANEY A1C ECG 40725 [facility] ANNA ROUTINE 7 HEALTH ECG MEDICAL W/LEAST GROUP 12 LDS I&R ONLY ECG 03132 [facility] MANDAEN ROUTINE 7 [facility] ECG [facility] W/LEAST 12 LDS TRCG ONLY W/O I&R ECG 74988 [place] [facility] ROUTINE 6 [facility] ECG INC INC W/LEAST 12 LDS TRCG ONLY W/O I&R ECG 75410 [place] CHAVEZ JR ROUTINE [address] [facility] W/LEAST P 12 LDS I&R ONLY RADEX 22157 [facility] ABDOMEN 6 MEDICAL MEDICAL COMPL IMAGING IMAGING W/DCBTS&/ ASS ASS ERC VIEWS RADIOLOGI 79946 [place] [facility] C EXAM 6 [facility] CHEST 2 INC INC VIEWS FRONTAL&[place] [address] [place] [facility] INFUSION 6 [facility] THERAPY/P INC INC ROPHYLAXI S /DX 1ST TO 1 HR THERAPEUT 35767 [place] [facility] IC 6 [facility] INJECTION INC INC IV PUSH EACH NEW DRUG BLOOD 47052 [place] [facility] COUNT 6 [facility] COMPLETE INC INC AUTO&[place] [address] [place] [facility] LIPASE 6 [facility] [place] [address] [place] [facility] AMYLASE 6 [facility] INC INC COMPREHEN 22346 [place] [facility] SIVE 6 [facility] METABOLIC INC INC PANEL BLOOD 07842 [facility] OCCULT 6 [facility] PEROXID INTERNAL E ACTV MED QU[place] [address] [place] [address] [place] HARLEEN HEAD/BRAI 6 MEDICAL N W/O IMAGING CONTRAST ASS MATERIAL GLUC BLD 86875 [place] [facility] GLUC MNTR 6 [facility] DEV INC INC CLEARED FDA SPEC HOME USE THERAPEUT 68928 [place] [facility] IC 6 [facility] PROPHYLAC INC INC TIC/DX INJECTION SUBQ/IM RADEX 27653 [place] [facility] ALL SACRUM & 6 MEDICAL COCCYX IMAGING MINIMUM 2 ASS VIEWS RADIOLOGI 96854 [place] [facility] ALL C 6 MEDICAL EXAMINATI IMAGING ON PELVIS ASS 1/2 VIEWS RADEX 27035 [place] [facility] ALL SPINE 6 MEDICAL LUMBOSACR IMAGING AL ASS MINIMUM 4 VIEWS URINE 86263 [place] [facility] 6 [facility] TEST INC INC VISUAL COLOR CMPRSN METHS CUL BACT 75474 [place] [facility] XCPT 6 [facility] URINE INC INC BLOOD/[place] [address] [place] [facility] STREPTOCO 6 [facility] CCUS INC INC GROUP A IAADI 80759 [place] [facility] INFLUENZA 6 [facility] B VIRUS INC INC IAADI 33309 [place] [facility] INFFLUENZ 6 [facility] A A VIRUS INC INC BLOOD 44950 [place] [facility] COUNT 6 [facility] COMPLETE INC INC AUTO&AUTO DIFRNTL WBC RADIOLOGI 70446 [place] C EXAM 6 [facility] CHEST 2 INC INC VIEWS FRONTAL&L ATERAL RADEX 73388 [place] HARLEEN SINUSES 6 MEDICAL ADRIANNA PARANASAL IMAGING COMPL ASS MINIMUM 3 VIEWS ANESTHESI 49540 COMMUNITY FEEBACK A NOSE & 6 ANESTH ACCESSORY [place] [address] [facility], PICKLESIM SURG 6 [facility] PATHOLOGY GROSS&BRYCE ROSCOPIC EXAM DECALCIFI 22447 [facility] PICKLESIM CATION 6 [facility] PROCEDURE ECG 32743 [place] ROUTINE 6 [facility] W/LEAST P 12 LDS I&R ONLY ECG 96169 [place] ROUTINE 6 [facility] ECG INC INC W/LEAST 12 LDS TRCG ONLY W/O I&R BLOOD 41678 [place] COUNT 6 [facility] COMPLETE INC INC AUTO&AUTO DIFRNTL WBC ANTIBODY 15460 [place] HERPES 6 [facility] SMPLX INC INC TYPE 1 ANTIBODY 46367 [place] VIRUS NOT 6 [facility] INC INC ELSEWHERE SPECIFIFE D COLLECTIO 09851 [place] N VENOUS 6 [facility] BLOOD INC INC VENIPUNCT URE COMPREHEN 96295 [place] SIVE 6 [facility] [place] [address] [place] HARLEEN MAXILLOFA 6 MEDICAL ADRIANNA CIAL W/[place] [address] [facility] CERVICAL 6 MEDICAL SPINE W/[place] [address] [facility] HEAD/BRAI 6 MEDICAL N W/O IMAGING CONTRAST ASS MATERIAL URINE 08941 [place] [facility] 6 [facility] TEST INC INC VISUAL COLOR CMPRSN METHS COMPRE 49822 MAEGAN ISSA AUDIOMETR 6 JARON JARON Y THRESHOLD EVAL SP RECOGNIJ TYMPANOME 08166 MAE[facility] ISSA TRY 6 JARON JARON DISTORT 56662 MAE[facility] ISSA PRODUCT 6 JARON JARON EVOKED OTOACOUST IC EMISNS LIMITD PULMONARY 50530 [place] NO[place] STRESS 6 MEDICAL TESTING SERV SIMPLE FOUNDATIO N GAS 12538 [place] DILUT/WAS 6 MEDICAL MEDICAL HOUT LUNG SERV SERV VOL W/WO FOUNDATIO FOUNDATIO DISTRIB N N VENT&[place] [address] [place] DIFFUSING 6 MEDICAL CAPACITY SERV FOUNDATIO N NONINVASI 66292 [place] [facility] VE 6 [facility] EAR/PULSE INC INC OXIMETRY MULTIPLE DETER BRNCDILAT 69471 [place] [facility] RSPSE 6 [facility] SPMTRY INC INC PRE&POST- BRNCDILAT ADMN ELIG CLIN G8427 STAMPING RODRIGUEZ TRI ATTSTS 6 GROUND DOC M REC FAMILY OBTD CLINI UPD/REV PT MEDS ECG 70673 [place] [facility] ROUTINE 6 [facility] ECG INC INC W/LEAST 12 LDS TRCG ONLY W/O I&[place] [address] [place] [facility] TROPONIN 6 [facility] QUANTITAT INC INC SABIHA CREATINE 17206 [place] KINASE 6 [facility] TOTAL INC INC CREATINE 40127 [place] KINASE MB 6 [facility] FRACTION INC INC ONLY COMPREHEN 20256 [place] [facility] SIVE 6 [facility] METABOLIC INC INC PANEL ECG 27182 [place] ROUTINE 6 [facility] W/LEAST P 12 LDS I&R ONLY BLOOD 33487 [facility] COUNT 6 [facility] COMPLETE INC INC AUTO&AUTO DIFRNTL WBC BLOOD 29662 [place] [facility] COUNT 6 [facility] COMPLETE INC INC AUTO&AUTO DIFRNTL WBC BLOOD 40305 [place] [facility] OCCULT 6 [facility] PEROXIDAS INC INC E ACTV QUAL FECES 1-3 SPEC COLLECTIO 87252 [place] [facility] N VENOUS 6 [facility] BLOOD INC INC VENIPUNCT URE IM ADM 20754 [facility] PRQ ID 6 [facility] SUBQ/IM HLTH DEPT HLTH DEPT NJXS EA JAZZ JAZZ VACCINE IM ADM 78273 [facility] PRQ ID 6 [facility] DISTRICT SUBQ/IM HLTH DEPT HLTH DEPT NJXS 1 JAZZ JAZZ VACCINE TDAP 61010 [facility] VACCINE 7 6 [address] YRS/> IM HLTH DEPT HLTH DEPT JAZZ JAZZ SYPHILIS 40713 [facility] TEST 6 [facility] NON-TREPO HLTH DEPT HLTH DEPT NEMAL JAZZ JAZZ ANTIBODY QUAL SKIN TEST 88840 [facility] 6 [facility] TUBERCULO HLTH DEPT HLTH DEPT SIS [place] ECG 68192 [place] ROUTINE 6 [facility] ECG INC INC W/LEAST 12 LDS TRCG ONLY W/O I&R XTRNL ECG 26778 [place] [facility] & 48 HR 6 [facility] RECORDING INC INC CREATINE 74121 [place] [facility] KINASE 6 [facility] [place] [address] [place] [facility] TROPONIN 6 [facility] QUANTITAT INC INC SABIHA COMPREHEN 25804 [place] [facility] SIVE 6 [facility] METABOLIC INC INC PANEL CREATINE 91454 [place] [facility] KINASE MB 6 [facility] FRACTION INC INC ONLY XTRNL ECG [address] [place] [address] [facility] S RHYTHM P W/I&R UP TO 48 HRS EXTERNAL 47982 [place] [facility] ECG 6 [facility] SCANNING INC INC ANALYSIS REPORT BLOOD 70104 [place] [facility] COUNT 6 [facility] COMPLETE INC INC AUTO&AUTO DIFRNTL WBC BLOOD 66227 [place] [facility] COUNT 6 [facility] COMPLETE INC INC AUTO&AUTO DIFRNTL WBC RHEUMATOI 18225 [place] [facility] D FACTOR 6 [facility] [place] [address] [place] [facility] TROPONIN 6 [facility] QUANTITAT INC INC SABIHA GROUND A0425 [facility] MILEAGE 6 AMBULANCE PATY PER SERVICE STATUTE MILE AMBULANCE A0429 [facility] SERVICE 6 AMBULANCE PATY BLS SERVICE EMERGENCY TRANSPORT CREATINE 56647 [place] [facility] KINASE MB 6 [facility] FRACTION INC INC ONLY ANTINUCLE 23462 [place] [facility] AR 6 [facility] ANTIBODIE INC INC S SANNA BLOOD 75106 [place] COUNT 6 [facility] RETICULOC INC INC YTE AUTOMATED CREATINE 39405 [place] KINASE 6 [facility] TOTAL INC INC PROF SVCS 88776 ALLERGY ROSENTHAL MAR ALLG 6 [facility] IMMNTX X OF [place] W/PRV CO ALLGIC XTRCS NJXS SEDIMENTA 23367 [place] [facility] TION RATE 6 [facility] RBC INC INC NON-AUTOM ATED NITRIC 45442 [facility]ER[facility] ROSENT[facility] MAR OXIDE 6 [facility] [place] GAS CO DETERMINA TION SPMTRY 75819 [facility]ER[facility] ROSENTHAL MAR W/VC 6 PARTNERS EXPIRATOR OF [place] Y ABHI CO W/WO MXML VOL VNTJ ECG 05256 [place] [facility] ROUTINE 6 [facility] ECG INC INC W/LEAST 12 LDS TRCG ONLY W/O I&R ECG 27942 [place] ROUTINE 6 [facility] W/LEAST P 12 LDS I&R ONLY SEDIMENTA 99974 [place] [facility] TION RATE 6 [facility] RBC INC INC NON-AUTOM ATED BLOOD 31649 [place] COUNT 6 [facility] RETICULOC INC INC YTE AUTOMATED BASIC 08958 [place] METABOLIC 6 [facility] PANEL INC INC CALCIUM TOTAL TECHNETIU A9503 [place] M TC-99M 6 [facility] MEDRONATE INC INC DX UP TO 30 MCI BONE 70940 [place] [facility] &/JOINT 6 [facility] IMAGING INC INC WHOLE BODY BLOOD 70434 [place] COUNT 6 [facility] COMPLETE INC INC AUTO&AUTO DIFRNTL WBC COLLECTIO 88651 [place] N VENOUS 6 [facility] BLOOD INC INC VENIPUNCT URE BLOOD 82177 [place] COUNT 6 [facility] COMPLETE INC INC AUTO&AUTO DIFRNTL WBC RADIOLOGI 53101 [place] [facility] C EXAM 6 [facility] CHEST 2 INC INC VIEWS FRONTAL&L ATERAL ANES 45549 [place] [address] ANESTHESI INTESTINE A GROUP PS ENDOSCOPY DISTAL DUODENUM THYROID 39741 [place] [facility] HORM 6 [facility] UPTK/THYR INC INC OID HORMONE BINDING RATIO GONADOTRO 63857 [place] PIN 6 [facility] FOLLICLE INC [place] [address] [place] THYROXINE 6 [facility] [place] [place] [address] [place] THYROID 6 [facility] STIMULATI INC INC NG HORMONE TSH COLLECTIO 31000 [place] N VENOUS 6 [facility] BLOOD INC INC VENIPUNCT URE GONADOTRO 58706 [place] PIN 6 [facility] LUTEINIZI INC INC NG HORMONE COLLECTIO 76992 [place] N VENOUS 6 [facility] BLOOD INC INC VENIPUNCT URE RADIOLOGI 14198 [facility] C 6 MEDICAL MEDICAL EXAMINATI IMAGING IMAGING ON [place] [address] [place] TROPONIN 6 [facility] QUANTITAT INC INC SABIHA BLOOD 93935 [place] COUNT 6 [facility] COMPLETE INC INC AUTO&AUTO DIFRNTL WBC GROUND A0425 [facility] MILEAGE 6 AMBULANCE KILO PER SERVICE STATUTE MILE COMPREHEN 83857 [place] SIVE 6 [facility] METABOLIC INC INC PANEL CREATINE 08310 [place] KINASE MB 6 [facility] FRACTION INC INC ONLY AMB A0427 [facility] SERVICE 6 AMBULANCE KILO ALS SERVICE EMERGENCY TRANSPORT LEVEL 1 CREATINE 97520 [place] KINASE 6 [facility] TOTAL INC INC ECG 31046 [place] ROUTINE 6 [facility] W/LEAST P 12 LDS I&R ONLY ECG 33313 [place] ROUTINE 6 [facility] ECG INC INC W/LEAST 12 LDS TRCG ONLY W/O I&R PREPJ& 77271 [facility] [place] MAR ALLERGEN 6 [facility] [facility] [place] CO 1/[place] [address] [place] INFUSION 6 [facility] THERAPY INC INC PROPHYLAX [place] [address] [place] TROPONIN 6 [facility] QUANTITAT INC INC SABIHA CREATINE 18085 [place] KINASE MB 6 [facility] FRACTION INC INC ONLY COMPREHEN 21870 [place] SIVE 6 [facility] [place] [address] [place] INFUSION 6 [facility] THERAPY/P INC INC ROPHYLAXI S /DX [address] [address] [place] CERVICAL 6 [facility] SPINE W/O INC INC CONTRAST MATERIAL RADIOLOGI 86102 [place] C 6 [facility] EXAMINATI INC INC ON KNEE 3 VIEWS CREATINE 93172 [place] KINASE 6 [facility] TOTAL INC INC BLOOD 80666 [place] COUNT 6 [facility] COMPLETE INC INC AUTO&[place] [address] [place] HEAD/BRAI 6 [facility] N W/O INC INC CONTRAST MATERIAL ECG 09089 [place] ROUTINE 6 [facility] ECG INC INC W/LEAST 12 LDS TRCG ONLY W/O I&R ECG 84878 [place] ROUTINE 6 [facility] W/LEAST P 12 LDS I&R ONLY SPMTRY 83732 ALLERGY [facility] MAR W/VC 6 [facility] [employer] [facility] [place] Y ABHI CO W/WO MXML VOL VNTJ PERCUTANE 47249 ALLERGY [facility] MAR OUS TESTS 6 [facility] [place] W/ALLERGE CO LEO EXTRACTS INTRACUTA 19574 ALLERGY ORSENTHAL MAR NEOUS 6 [facility] [place] W/ALLERGE CO LEO EXTRACTS SPACR [id number] [facility] KRASNOPOL BAG/RESRV 6 EQUIPMENT ANTONIO LAUREN OR W/WO INC MASK W/METRD DOSE INHAL NITRIC 60873 ALLERGY ROSENTHAL MAR OXIDE 6 [facility] [place] [address] [facility] TRANSVAGI 6 PHYSICIAN MEAGAN NAL S GROUP ECG 02651 [place] CHAVEZ JR ROUTINE 6 [facility] W/LEAST P 12 LDS I&R ONLY ECG 86934 [place] ROUTINE 6 [facility] ECG INC INC W/LEAST 12 LDS TRCG ONLY W/O I&R IADNA 57364 [place] [facility] NEISSERIA 6 [facility] INC INC GONORRHOE AE AMPLIFIED PROBE TQ IADNA 37411 [place] CHLAMYDIA 6 [facility] INC INC TRACHOMAT [place] [address] [facility] [place] ANDREWS TRACT 6 RADIOLOGY RHO UPPER W/WO DELAYED IMAGES W/KUB ECG 52160 [place] MATUTE ROUTINE 6 [facility] W/LEAST P 12 LDS I&R ONLY RADIOLOGI 83447 [place] C EXAM 6 [facility] CHEST 2 INC INC VIEWS FRONTAL&[place] [address] [place] TROPONIN 6 [facility] QUANTITAT INC INC SABIHA RADIOLOGI 44917 [place] ALL C 6 MEDICAL EXAMINATI IMAGING ON CHEST ASS SINGLE VIEW FRONTAL BLOOD 40617 [place] [facility] COUNT 6 [facility] COMPLETE INC INC AUTO&AUTO DIFRNTL WBC COMPREHEN 40522 [place] SIVE 6 [facility] METABOLIC INC INC PANEL FIBRIN 37385 [place] DGRADJ 6 [facility] PRODUCTS INC INC D-DIMER QUAL/SEMI GILBERT ECG 66627 [place] ROUTINE 6 [facility] ECG INC INC W/LEAST 12 LDS TRCG ONLY W/O I&R ELECTROEN 81208 CINTHYA DONALD CEPHALOGR 6 N AM W/[place] NEUROLOGY AWAKE&[place] [address] [place] INFUSION 6 [facility] THERAPY/P INC INC ROPHYLAXI S /DX [address] [place] [address] [place] [address] [facility] ABDOMEN & 6 MEDICAL MEDICAL PELVIS IMAGING IMAGING W/CONTRAS ASS ASS T MATERIAL ECG 15653 [place] ROUTINE 6 [facility] W/LEAST P 12 LDS I&R ONLY BLOOD 75189 [place] [facility] COUNT 6 [facility] COMPLETE INC INC AUTO&[place] [address] [place] LIPASE 6 [facility] [place] [address] [place] TROPONIN 6 [facility] QUANTITAT INC INC SABIHA CREATINE 93452 [place] KINASE 6 [facility] TOTAL INC INC CULTURE 17160 [place] BACTERIAL 6 [facility] INC INC QUANTTATI VE COLONY COUNT URINE CREATINE 08522 [place] KINASE MB 6 [facility] [place] [address] [place] AMYLASE 6 [facility] INC INC COMPREHEN 87517 [place] SIVE 6 [facility] METABOLIC INC INC PANEL DRUG TST G0477 [place] [facility] PRESUMP;C 6 [facility] PBL BEING INC INC READ DC OPT OBV ONLY ECG 07883 [place] ROUTINE 6 [facility] ECG INC INC W/LEAST 12 LDS TRCG ONLY W/O I&R ELECTROEN 21881 [facility] CEPHALOGR 6 N N AM W/REC COMMUNTIY COMMUNTIY [facility] WSY CREATINE 50754 [place] KINASE 6 [facility] [place] [place] [address] [place] TROPONIN 6 [facility] QUANTITAT INC INC SABIHA CREATINE 57183 [place] KINASE MB 6 [facility] FRACTION INC INC ONLY URINE 14551 [place] [facility] 6 [facility] TEST INC INC VISUAL COLOR CMPRSN METHS COMPREHEN 88228 [place] SIVE 6 [facility] METABOLIC INC INC PANEL RADIOLOGI 95028 [facility] ALL C 6 MEDICAL EXAMINATI IMAGING ON CHEST ASS SINGLE VIEW FRONTAL RADEX 07645 [place] SPINE 6 [facility] THORACIC INC INC 3 VIEWS BLOOD 10645 [place] COUNT 6 [facility] COMPLETE INC INC AUTO&AUTO DIFRNTL WBC RADEX 23869 [facility] ALL SPINE 6 MEDICAL THORACIC IMAGING 2 VIEWS ASS RADIOLOGI 66760 [place] C EXAM 6 [facility] CHEST 2 INC INC VIEWS FRONTAL&L ATERAL ECG 63749 [place] CHAVEZ JR ROUTINE 6 [facility] W/LEAST P 12 LDS I&R ONLY ECG 39848 [place] ROUTINE 6 [facility] ECG INC INC W/LEAST 12 LDS TRCG ONLY W/O I&R SCREENING G0202 [place] [facility] 6 [facility] MAMMOGRAP INC INC HY WILBERT INCL CAD WHEN PERFORMD COMPUTER- 66634 [place] [facility] AIDED 6 [facility] DETECTION INC INC SCREENING MAMMOGRAP HY BLOOD 02696 [place] COUNT 6 [facility] COMPLETE INC INC AUTO&[place] [address] [place] MAGNESIUM 6 [facility] INC INC COLLECTIO 68927 [facility] [facility] N VENOUS 6 [facility] [place] [address] [place] [facility] FERRITIN 6 [facility] INC INC CYANOCOBA 61417 [place] LYUBOV 6 [facility] VITAMIN INC INC B-12 COMPREHEN 08419 [place] SIVE 6 [facility] [address] [place] THYROID 6 [facility] STIMULATI INC INC NG HORMONE TSH 25 31638 [place] HYDROXY 6 [facility] INCLUDES INC INC FRACTIONS IF PERFORMED COMPREHEN 99535 [place] SIVE 6 [facility] [address] [place] [facility] LACTATE 6 [place] [address] [place] [facility] TROPONIN 6 [facility] QUANTITAT INC INC SABIHA URNLS DIP 33614 [place] [facility] 6 [facility] STICK/TAB INC INC LET REAGENT AUTO MICROSCOP Y BLOOD 07929 [place] COUNT 6 [facility] COMPLETE INC INC AUTO&AUTO DIFRNTL WBC RADEX ABD 07430 [place] ALL COMPL 6 MEDICAL AQT ABD IMAGING W/S/E/D ASS VIEWS 1 [place] [address] [place] INFUSION 6 [facility] THERAPY/P INC INC ROPHYLAXI S /DX 1ST TO 1 HR ECG 90055 [place] ROUTINE 6 [facility] ECG INC INC W/LEAST 12 LDS TRCG ONLY W/O I&R ECG 53550 [place] CHAVEZ JR ROUTINE 6 [facility] W/LEAST P 12 LDS I&[place] [address] [place] INFUSION 6 [facility] THERAPY/P INC INC ROPHYLAXI S /DX 1ST TO 1 HR RADIOLOGI 36377 [place] ALL C EXAM 6 MEDICAL CHEST 2 IMAGING VIEWS ASS FRONTAL&L ATERAL URNLS DIP 16524 [place] [facility] 6 [facility] STICK/TAB INC INC LET REAGENT AUTO MICROSCOP Y BLOOD 40933 [place] COUNT 6 [facility] COMPLETE INC INC AUTO&AUTO DIFRNTL WBC URINE 56188 [facility] [place] 6 [facility] TEST INC INC VISUAL COLOR CMPRSN METHS CREATINE 64523 [place] KINASE MB 6 [facility] FRACTION INC INC ONLY COMPREHEN 85234 [place] SIVE 6 [facility] METABOLIC INC INC PANEL CULTURE 28277 [place] BACTERIAL 6 [facility] INC INC [place]TT[place] [address] [place] TROPONIN 6 [facility] QUANTITAT INC INC SABIHA CREATINE 70045 [place] KINASE 6 [facility] TOTAL INC INC ECG 83089 [place] MAT[place] ROUTINE 6 [facility] W/LEAST P 12 LDS I&R ONLY ECG 36070 [place] ROUTINE 6 [facility] ECG INC INC W/LEAST 12 LDS TRCG ONLY W/O I&R AMB A0427 [facility] SERVICE 6 AMB[facility]ANCE AMBULANCE ALS SERVICE SERVICE EMERGENCY TRANSPORT LEVEL 1 COMPREHEN 01976 [place] SIVE 6 [facility] [address] [place] LIPASE 6 [facility] INC INC BLOOD 78335 [place] COUNT 6 [facility] COMPLETE INC INC AUTO&AUTO DIFRNTL WBC GROUND A0425 [facility] AMBULANCE PER SERVICE SERVICE STATUTE MILE RADEX ABD 68282 [place] ALL COMPL 6 MEDICAL AQT ABD IMAGING W/S/E/D ASS VIEWS 1 VIEW CH THER 87142 [facility] PROPH/DX 6 N N NJX IV COMMUNTIY COMMUNTIY PUSH HOSPITA HOSPITA SINGLE/1S T SBST/DRUG BLOOD 51381 [facility] COUNT 6 N N COMPLETE COMMUNTIY COMMUNTIY AUTO&AUTO HOSPITA HOSPITA DIFRNTL WBC COLLECTIO 39619 [facility] N VENOUS 6 N N BLOOD COMMUNTIY COMMUNTIY VENIPUNCT HOSPITA HOSPITA URE MRI BRAIN 20299 [facility] [place] KOSTELIC BRAIN 6 RADIOLOGY LANA STEM W/O CONTRAST MATERIAL COMPREHEN 15600 [facility] SIVE 6 N N METABOLIC COMMUNTIY [place] [address] [facility] INFUSION 6 N N HYDRATION COMMUNTIY COMMUNTIY EACH HOSPITA HOSPITA ADDITIONA L HOUR AMB A0427 [facility] SERVICE 6 AMBULANCE AMBULANCE ALS SERVICE SERVICE [place] [address] [place] ALL HEAD/BRAI 6 MEDICAL N W/O IMAGING CONTRAST ASS MATERIAL RADIOLOGI 86195 [place] ALL C 6 MEDICAL EXAMINATI IMAGING [place] [address] [place] ALL ABDOMEN & 6 MEDICAL PELVIS IMAGING W/O ASS CONTRAST MATERIAL GROUND A0425 [facility] MILEAGE 6 AMBULANCE AMBULANCE PER SERVICE SERVICE STATUTE MILE ECG 55643 [facility] ROUTINE 6 [facility] W/LEAST P 12 LDS I&R ONLY THERAPEUT 60472 [facility] LUKING IC PX 1/> 6 AREAS EACH 15 MIN EXERCISES CHIROPRAC 02782 [facility] TIC 6 MANIPLTV TX EXTRASPIN AL 1/> REGION CHIROPRAC 77717 [facility] TIC 6 MANIPULAT SABIHA TX SPINAL 3-4 REGIONS MANUAL 59862 [facility] THERAPY 6 TQS 1/> REGIONS EACH 15 MINUTES MANUAL 01648 [facility] THERAPY 6 TQS 1/> REGIONS EACH 15 MINUTES THERAPEUT 14486 [facility]UKING IC PX 1/> 6 AREAS EACH 15 MIN EXERCISES THERAPEUT 76345 [facility]UKING IC PX 1/> 6 MATTI MATTI AREAS EACH 15 MIN EXERCISES MANUAL 36777 [facility] THERAPY 6 MATTI MATTI TQS 1/> REGIONS EACH 15 MINUTES CHIROPRAC 71427 [facility] TIC 6 MATTI MATTI MANIPULAT SABIHA TX SPINAL 3-4 REGIONS CHIROPRAC 61534 [facility] TIC 6 MATTI MATTI MANIPLTV TX EXTRASPIN AL 1/> REGION COMPREHEN 16641 [facility] SIVE 6 DIAGNOSTI DIAGNOSTI [place] [address] SCALF LEI SCALF LEI SURG 6 PATHOLOGY GROSS&BRYCE ROSCOPIC EXAM IMHISTOCH 37786 SCALF LEI SCALF LEI EM/CYTCHM 6 1ST ANTIBODY STAIN PROCEDURE BX SKIN 61072 SCALF LEI SCALF LEI SUBCUTANE 6 OUS&/MUCO US MEMBRANE 1 LESION THERAPEUT 30967 [place] [facility] IC 6 [facility] INJECTION INC INC IV PUSH EACH NEW DRUG GLUC BLD 15280 [place] GLUC MNTR 6 [facility] DEV INC INC CLEARED FDA SPEC HOME USE URNLS DIP 76889 [place] [facility] 6 [facility] STICK/TAB INC [place] [address] [place] INFUSION 6 [facility] THERAPY/P INC INC ROPHYLAXI S /DX 1ST TO [place] [address] [place] LIPASE 6 [facility] INC INC BLOOD 92698 [place] COUNT 6 [facility] COMPLETE INC INC AUTO&AUTO DIFRNTL WBC INJECTION J2405 [place] [facility] 6 [facility] ONDANSETR INC INC ON HCL PER 1 MG CULTURE 29916 [place] BACTERIAL 6 [facility] INC INC QUANTTATI VE COLONY COUNT URINE COMPREHEN 62683 [place] SIVE 6 [facility] [address] [place]A AMYLASE 6 [facility] INC INC CREATINE 82255 [place] KINASE MB 6 [facility] FRACTION INC INC ONLY UNCLASSIF J3490 [place] IED DRUGS 6 [facility] INC INC CREATINE 33525 [place] KINASE 6 [facility] [place] [address] [place] TROPONIN 6 [facility] QUANTITAT INC INC SABIHA ECG 97641 [place] BORDENSHELLY ROUTINE 6 [facility] W/LEAST P 12 LDS I&R ONLY ECG 46908 [place] ROUTINE 6 [facility] ECG INC INC W/LEAST 12 LDS TRCG ONLY W/O I&R ECG 57627 MANDAEN MCKENNA ROUTINE 6 [facility]ALTH IV HEN ECG MEDICAL W/LEAST GROUP 12 LDS I&R ONLY LOCM Q9967 MANDA[facility] MANDAEN [phone] [facility] MG/ML [facility] IODINE CONCENTRA TION PER ML INJECTION J1644 MANDA[facility] MANDAEN HEPARIN 6 [facility] SODIUM [facility] PER 1000 UNITS GONADOTRO 52704 MANDAEN MANDAEN PIN 6 [facility] CHORIONIC [facility] QUANTITAT SABIHA BASIC 37456 MANDAEN MANDAEN METABOLIC 6 HEALTH HEALTH PANEL [facility] CALCIUM TOTAL INJECTION J3010 MANDA[facility] MANDAEN FENTANYL 6 [facility] CITRATE [facility] 0.1 MG BLOOD 81349 MANDAEN MANDAEN COUNT 6 [facility] COMPLETE [facility] AUTOMATED COLLECTIO 83442 MANDAEN MANDAEN N VENOUS 6 [facility] BLOOD [facility] VENIPUNCT URE LIPID 51547 MANDAEN MANDAEN PANEL [address] [place] [address] HEALTH [facility] HEMOGLOBI 27721 MANDAEN MANDAEN N 6 [facility] GLYCOSYLA [facility] LANEY A1C CATH PLMT 96687 MANDAEN MANDAEN L HRT & 6 HEALTH HEALTH ARTS [facility] W/NJX & ANGIO IMG S&I TECHNETIU A9500 [place] TC-99M 6 [facility] SESTAMIBI INC INC DX PER STUDY DOSE MYOCARDIA 01382 [place] ALL L SPECT 6 MEDICAL MULTIPLE IMAGING STUDIES ASS CV STRS 27915 [place] TST 6 [facility]/OR HOSPITAL HOSPITAL RX CONT P P ECG I&R ONLY UNCLASSIF J3490 [place] [facility] IED DRUGS 6 [facility] INC INC ECHO 15180 MELANIE STERN TTHRC R-T 6 MEDICAL 2D SERV W/WOM-MOD FOUNDATIO E COMPL N SPEC&COLR D CV STRS 50838 [place] TST 6 [facility] XERS&/OR INC INC RX CONT ECG TRCG ONLY CV STRS 64349 [place] TST 6 [facility]&/OR [facility] RX CONT P P ECG W/O I&R ECG 80416 [place] ROUTINE 6 [facility] ECG INC INC W/LEAST 12 LDS TRCG ONLY W/O I&R CREATINE 50749 [place] KINASE MB 6 [facility] FRACTION INC INC ONLY COMPREHEN 17600 [place] SIVE 6 [facility] [place] [address] [place] TROPONIN 6 [facility] QUANTITAT INC INC SABIHA CREATINE 33003 [place] KINASE 6 [facility] TOTAL INC INC ECG 30648 [place] CHAVEZ JR ROUTINE 6 [facility] W/LEAST P 12 LDS I&R ONLY BLOOD 84148 [place] COUNT 6 [facility] COMPLETE INC INC AUTO&AUTO DIFRNTL WBC RADIOLOGI 75598 [place] ALL C 6 MEDICAL EXAMINATI IMAGING ON CHEST ASS SINGLE VIEW FRONTAL OPHTH 87165 [facility] MEDICAL 6 XM&EVAL COMPRHNSV ESTAB PT 1/> [place] [address] LAB [facility] LAB [facility] PARATHORM 6 [facility] [place] [address] LAB [facility] MAGNESIUM [address] [facility] [place] [address] [facility] ZINC [address] [facility] [address] LAB [facility] LAB [facility] FERRITIN 6 [facility]INGS HOLDINGS ORGANIC 00656 [facility] LAB [facility] ACID 1 6 [facility] QUANTITAT [facility] HOLDINGS SABIHA BLOOD 29994 [facility] LAB [facility] COUNT 6 [facility] COMPLETE [facility]INGS HOLDINGS AUTO&AUTO DIFRNTL WBC PREALBUMI 74546 [facility] LAB [facility] N 6 [place] [address] LAB [facility] LAB [facility] THIAMINE- 6 [facility] VITAMIN [facility] [place] B-1 [place] [address] LAB [facility] LAB [facility] PHOSPHORU 6 [facility] S [facility] INORGANIC 25 04807 [facility] HYDROXY 6 [facility] INCLUDES [facility]INGS FRACTIONS IF PERFORMED COMPREHEN 82206 [facility] SIVE 6 [facility] METABOLIC [place] [address] LAB [facility] LAB [facility] IRON 6 [place] [address] LAB [facility] FOLIC 6 [facility] [place] [address] LAB [facility] TOCOPHERO 6 MAI [facility]I L ALPHA [place] [address] LAB [facility] LAB [facility] VITAMIN A 6 [place] [address] [facility] [facility] THYROID 6 [facility] STIMULATI [place] [address] [place] [facility] IRON 6 [facility] INC INC COMPREHEN 65417 [place] SIVE 6 [facility] METABOLIC INC INC PANEL 25 06632 [place] HYDROXY 6 [facility] INCLUDES INC INC FRACTIONS IF PERFORMED BLOOD 03783 [place] COUNT 6 [facility] COMPLETE INC INC AUTO&AUTO DIFRNTL WBC COLLECTIO 50874 [place] [facility] N VENOUS 6 [facility] [place] [address] [place] VAUGHN FERRITIN 6 [facility] TERA INC IRON 82536 [place] [facility] BINDING 6 [facility] CAPACITY INC INC CYTP 05482 [facility] CERVICAL/ 6 LLC VAGINAL REQ INTERP PHYSICIAN CYTP C/V 04048 [facility] AUTO THIN 6 LLC LYR PREPJ SCR MNL RESCR PHYS IADNA 92073 [facility] CHLAMYDIA 6 LLC TRACHOMAT IS AMPLIFIED PROBE TQ IADNA 91932 [facility] HUMAN 6 LLC PAPILLOMA VIRUS HIGH-RISK TYPES IADNA 09496 [facility], [facility] NEISSERIA 6 LLC GONORRHOE [place] [address] [place] [facility] THYROID 6 [facility] STIMULATI INC INC NG HORMONE TSH BASIC 69409 [facility] [facility] METABOLIC 6 [facility] PANEL INC INC CALCIUM TOTAL COLLECTIO 19205 [facility] N VENOUS 6 [facility] BLOOD INC INC VENIPUNCT URE COLLECTIO 02748 [place] [facility] N VENOUS 6 [facility] BLOOD INC INC VENIPUNCT URE BLOOD 16260 [place] [facility] COUNT 6 [facility] COMPLETE INC INC AUTO&AUTO DIFRNTL WBC ORGANIC 64965 [place] [facility] ACID 1 6 [facility] [place] [address] [facility] [facility] FERRITIN 6 [place] [address] [place] [facility] IRON 6 [facility] INC INC COMPREHEN 11399 [place] [facility] SIVE 6 [facility] [place] [address] [place] [facility] THIAMINE- 6 [facility] VITAMIN INC INC B-1 PREALBUMI 08409 [place] [facility] N 6 [facility] INC INC PREALBUMI 55367 [facility]ESH N 5 [place] [address] LAB [facility] LAB [facility] THIAMINE- 5 [facility] VITAMIN [facility] [place] B-[address] [place] [address] LAB [facility] LAB [facility] FOLIC 5 [facility] [place] [address] LAB [facility] LAB MAHESH IRON 5 [facility]INGS HOLDINGS GENERAL [address] LAB [facility] LAB MA[facility] HEALTH 5 MAI [place] [address] LAB [facility] LAB MAH[facility] FERRITIN 5 [facility]INGS HOLDINGS ORGANIC 75366 LAB [facility] LAB [facility]HESH ACID 1 5 MAI MAI QUANTITAT HOLDINGS HOLDINGS SABIHA BX SKIN 26221 ATKINS ATKINS SUBCUTANE 5 TRA TRA OUS&/MUCO [place] MEMBRANE 1 [place] [address] SCALF LEI SCALF LEI SURG 5 PATHOLOGY GROSS&BRYCE ROSCOPIC EXAM DESTRUCTI 22904 ATKINS ATKINS ON BENIGN 5 TRA TRA LESIONS UP TO 14 BIOPSY 32111 ATKINS ATKINS SKIN 5 TRA TRA SUBQ&/MUC OUS MEMBRANE EA ADDL LESN DESTRUCTI 93459 ATKINS ATKINS ON 5 TRA TRA PREMALIGN ANT LESION 1ST PREALBUMI 89024 LAB [facility] LAB MAHESH N 5 [place] [address] LAB MAHESH LAB MAHESH THIAMINE- 5 [facility] VITAMIN HOLDINGS HOLDINGS B-1 COMPREHEN 58946 LAB [facility] LAB MAHESH SIVE 5 [facility] METABOLIC [place] [address] LAB MA[facility]ESH LAB MAHESH IRON 5 [place] [address] LAB MA[facility]ESH LAB MAHESH FOLIC 5 [facility] ACID HOLDINGS HOLDINGS SERUM BLOOD 78108 LAB [facility] LAB MAHESH COUNT 5 MAI [facility] COMPLETE HOLDINGS HOLDINGS AUTO&AUTO DIFRNTL WBC ORGANIC 63865 LAB [facility] LAB MAHESH ACID 1 5 [facility] QUANTITAT HOLDINGS HOLDINGS SABIHA COMPUTER- 72212 [facility] AIDED 5 MEDICAL CARMEN DETECTION IMAGING ASS SCREENING MAMMOGRAP HY SCREENING G0202 [place] [address] MEDICAL CARMEN MAMMOGRAP IMAGING HY WILBERT ASS INCL CAD WHEN PERFORMD HEMOGLOBI 03466 [place] [facility] N 5 [facility] GLYCOSYLA INC INC LANEY A1C COLLECTIO 09489 [place] [facility] N VENOUS 5 [facility] BLOOD INC INC VENIPUNCT URE CYANOCOBA 49255 [place] [facility] LYUBOV 5 [facility] VITAMIN INC INC B-12 BLOOD 70108 [place] [facility] COUNT 5 [facility] COMPLETE INC INC AUTO&AUTO DIFRNTL WBC LIPID 01043 [place] [facility] PANEL 5 [place] [address] [place] [facility] GLUTAMYLT 5 [facility] RASE INC INC GAMMA COMPREHEN 92991 [place] [facility] SIVE 5 [facility] [address] [place] [facility] THYROID 5 [facility] STIMULATI INC INC NG HORMONE TSH 25 94811 [place] [facility] HYDROXY 5 [facility] INCLUDES INC INC FRACTIONS IF PERFORMED OPHTH 98039 SCIFRES SCIFRES MEDICAL 5 ANG ANG XM&EVAL COMPRHNSV ESTAB PT 1/> [place] [address] [facility] ABDOMEN & 5 N N PELVIS COMMUNTIY COMMUNTIY [place] [address] [facility]BDOM[facility] & 5 [facility] PELVIS INC INC W/CONTRAS T MATERIAL URNLS DIP 61234 [facility] STICK/TAB INC INC LET REAGENT AUTO MICROSCOP Y BLOOD 64664 [facility] COUNT [facility] COMPLETE INC INC AUTO&[place] [address] [facility] LIPASE [facility] INC INC CULTURE 60597 [facility] BACTERIAL [facility] INC INC QUANTTATI VE COLONY COUNT URINE COMPREHEN 68483 [facility] SIVE 5 [facility] METABOLIC INC INC PANEL URINE 35494 [facility] TEST INC [place] [address] [facility] AMYLASE 5 [place] [address] [facility] AMYLASE 5 N N COMMUNTIY COMMUNTIY HOSPITA HOSPITA COMPREHEN 40893 [facility] SIVE 5 N N METABOLIC COMMUNTIY COMMUNTI[place] [address] [facility] FOLIC 5 N N ACID COMMUNTIY COMMUNTI[place] [address] [facility] VITAMIN A 5 N N COMMUNTI[place] [address] [facility] TOCOPHERO 5 N N L ALPHA COMMUNTIY COMMUNTIY VITAMIN E HOSPITA HOSPITA 25 84353 [facility] HYDROXY 5 N N INCLUDES COMMUNTIY COMMUNTIY FRACTIONS [place] [address] [facility] THIAMINE- 5 N N VITAMIN COMMUNTIY COMMUNTIY B-[place] [address] [facility] PHOSPHORU 5 N N S COMMUNTIY COMMUNTIY INORGANIC HOSPITA HOSPITA PREALBUMI 14699 [facility] N 5 N N COMM[place] [address] [facility] LIPASE 5 N N [place] [address] [facility] MAGNESIUM 5 N N COMMUNTIY COMMUNTIY HOSPITA HOSPITA COLLECTIO 10252 [facility] N VENOUS 5 N N BLOOD COMMUNTIY COMMUNTIY [place]IP[place] [address] [facility] ZINC 5 N N COMMUNTIY COMMUNTIY HOSPITA HOSPITA BLOOD 23497 [facility] COUNT 5 N N COMPLETE COMMUNTIY COMMUNTIY AUTO&AUTO HOSPITA HOSPITA DIFRNTL WBC ORGANIC 81806 [facility] ACID 1 5 N N QUANTITAT COMMUNTIY [place] [address] [facility] ABDOMINAL 5 N N REAL COMMUNTIY COMMUNTIY TIME HOSPITA HOSPITA W/[place] [address] [facility] PARATHORM 5 N N ONE COMMUNTIY COMMUNTIY HOSPITA HOSPITA IRON 10204 [facility] BINDING 5 N N CAPACITY [place] [address] [facility] RETROPERI 5 [facility] TONEAL INC [facility] REAL TIME W/[place] [address] [place] [facility] RETROPERI 5 MEDICAL TONEAL IMAGING REAL TIME ASS W/[place] [address] [facility] GAMMAGLOB 5 N N ULIN IGA COMMUNTIY COMMUNTIY IGD IGG HOSPITA HOSPITA IGM EACH ALPHA-1-A 64883 [facility] NTITRYPSI 5 N N N TOTAL COMMUNTIY COMMUNTIY HOSPITA HOSPITA COLLECTIO 11222 [facility] N VENOUS 5 N N BLOOD COMMUNTIY COMMUNTIY VENIPUNCT HOSPITA HOSPITA URE BLOOD 92626 [facility] COUNT 5 N N COMPLETE COMMUNTIY COMMUNTIY AUTOMATED HOSPITA HOSPITA HEPATITIS 98575 [facility] C 5 N N ANTIBODY COMMUNTIY [place] [address] [facility] FERRITIN 5 N N COMMUNTIY COMMUNTIY HOSPITA HOSPITA IMMUNOASS 17146 [facility] AY 5 N N ANALYTE COMMUNTIY COMMUNTIY QUAL/SEMI HOSPITA HOSPITA QUAL MULTIPLE STEP PROTHROMB 22254 [facility] IN TIME 5 N N COMMUNTIY COMMUNTIY HOSPITA HOSPITA HEPATITIS 08839 [facility] B CORE 5 N N ANTIBODY COMMUNTIY COMMUNTIY HBCAB HOSPITA HOSPITA TOTAL HEPATITIS 57082 [facility] [facility] B SURF 5 N N ANTIBODY COMMUNTIY [place] [address] [facility] HEPATITIS 5 N N B COMMUNTIY COMMUNTIY SURFACE HOSPITA HOSPITA ANTIGEN ANTINUCLE 48955 [facility] AR 5 N N ANTIBODIE COMMUNTIY COMMUNTIY S SANNA HOSPITA HOSPITA COMPREHEN 36533 [facility] SIVE 5 N N METABOLIC COMMUNTIY COMMUNTI[place] [address] [facility]ON 5 [place] [address] [facility] ABDOMEN & 5 MEDICAL PELVIS IMAGING W/O ASS CONTRAST MATERIAL DUP-SCAN 67938 [facility] [place] ANDREWS XTR VEINS 5 RADIOLOGY [place] [address] [facility] LIPASE 5 N N COMMUNTIY COMMUNTIY HOSPITA HOSPITA COLLECTIO 08343 [facility] N VENOUS 5 N N BLOOD COMMUNTIY COMMUNTIY VENIPUNCT HOSPITA HOSPITA URE BLOOD 67174 [facility] COUNT 5 N N COMPLETE COMMUNTIY COMMUNTIY AUTO&AUTO HOSPITA HOSPITA DIFRNTL WBC COMPREHEN 86773 [facility] SIVE 5 N N METABOLIC COMMUNTIY COMMUNTI[place] [address] [facility] AMYLASE 5 N N COMMUNTIY [place] [address] [facility] [place] SCALF HUBER TRACT 5 RADIOLOGY UPPER W/WO DELAYED IMAGES W/KUB LAPS 34905 [facility] SANCHEZ MICHELLE GSTRC 5 RSTRICTIV BARIATRIC PX SURGICAL LONGITUDI NAL GASTRECTO MY ANES IPR 47715 [facility] ANT UPPER 5 ANESTHESI ABDOMEN A GROUP LAPS PS GASTRIC RSTCV MO LAPAROSCO 4382 [facility] PIC 5 N N VERTICAL COMMUNTIY COMMUNTIY SLEEVE HOSPITA HOSPITA GASTRECTO MY OTHER 4513 [facility] ENDOSCOPY 5 N N OF SMALL COMMUNTIY COMMUNTIY HOSPITA HOSPITA INTESTINE APPL 69937 [place] [facility] MODALITY 5 [facility] 1/> AREAS INC INC ELEC STIMJ UNATTENDE D APPL 46305 [place] [facility] MODALITY 5 [facility] 1/> AREAS INC INC ULTRASOUN D EA 15 MIN APPLICATI 00392 [place] [facility] ON 5 [facility] MODALITY INC INC 1/> AREAS HOT/COLD PACKS COMPREHEN 30522 [facility] SIVE 5 N N METABOLIC COMMUNTIY COMMUNTIY PANEL HOSPITA HOSPITA DUP-SCAN 79485 [facility] CANSECO XTR VEINS 5 MEDICAL ADRIANNA COMPLETE IMAGING ASS BILATERAL STUDY BLOOD 15866 [facility] COUNT 5 N N COMPLETE COMMUNTIY COMMUNTIY AUTOMATED HOSPITA HOSPITA COLLECTIO 51987 [facility] N VENOUS 5 N N BLOOD COMMUNTIY COMMUNTIY VENIPUNCT HOSPITA HOSPITA URE GONADOTRO 37584 [facility] PIN 5 N N CHORIONIC COMMUNTIY COMMUNTIY HOSPITA HOSPITA QUALITATI VE THERAPEUT 15086 [place] [facility] IC PX 1/> 5 [facility] AREAS INC INC EACH 15 MIN EXERCISES APPLICATI 47043 [place] [facility] ON 5 [facility] MODALITY INC INC 1/> AREAS HOT/COLD PACKS APPL 00282 [place] [facility] MODALITY 5 [facility] 1/> AREAS INC INC ULTRASOUN D EA 15 MIN APPL 11185 [place] [facility] MODALITY 5 [facility] 1/> AREAS INC INC ELEC STIMJ UNATTENDE D CUL BACT 58709 [place] [facility] XCPT 5 [facility] URINE INC INC BLOOD/STO OL AEROBIC ISOL SUSCEPTIB 39235 [place] [facility] LTY STDY 5 [facility] ANTIMICRB INC INC IAL MICRO/AGA R DILUTJ THERAPEUT 35866 [place] [facility] IC PX 1/> 5 [facility] AREAS INC INC EACH 15 MIN EXERCISES APPL 23128 [place] [facility] MODALITY 5 [facility] 1/> AREAS INC INC ELEC STIMJ UNATTENDE D APPL 43717 [place] [facility] MODALITY 5 [facility] 1/> AREAS INC INC ULTRASOUN D EA 15 MIN APPLICATI 63131 [place] [facility] ON 5 [facility] MODALITY INC INC 1/> AREAS HOT/COLD PACKS APPLICATI 11312 [place] [facility] ON 5 [facility] MODALITY INC INC 1/> AREAS HOT/COLD PACKS APPL 52714 [place] [facility] MODALITY 5 [facility] 1/> AREAS INC INC ULTRASOUN D EA 15 MIN APPL 42237 [place] [facility] MODALITY 5 [facility] 1/> AREAS INC INC ELEC STIMJ UNATTENDE D APPL 57025 [place] [facility] MODALITY 5 [facility] 1/> AREAS INC INC IONTOPHOR ESIS EA 15 MIN THERAPEUT 16038 [place] [facility] IC PX 1/> 5 [facility] AREAS INC INC EACH 15 MIN EXERCISES APPL 62552 [place] MODALITY 5 [facility] 1/> AREAS INC INC IONTOPHOR ESIS EA 15 MIN APPL 78005 [place] [facility] MODALITY 5 [facility] 1/> AREAS INC INC ELEC STIMJ UNATTENDE D APPL 88071 [place] MODALITY 5 [facility] 1/> AREAS INC INC ULTRASOUN D EA 15 MIN APPLICATI 16087 [place] ON 5 [facility] MODALITY INC INC 1/> AREAS HOT/COLD PACKS THYROID 54823 [facility] HORM 5 N N UPTK/THYR COMMUNTIY COMMUNTIY OID HOSPITA HOSPITA HORMONE BINDING RATIO CUL 29512 [facility] PRSMPTV 5 N N PTHGNC COMMUNTIY COMMUNTIY ORGANISM HOSPITA HOSPITA SCRN W/[place] [address] [facility] THYROXINE 5 N N TOTAL COMMUNTIY [place] [address] [facility] THYROID 5 N N STIMULATI COMMUNTIY COMMUNTIY NG HOSPITA HOSPITA HORMONE TSH COMPREHEN 52166 [facility] SIVE 5 N N METABOLIC COMMUNTIY COMMUNTIY PANEL HOSPITA HOSPITA RADIOLOGI 88446 [facility] C EXAM 5 N N CHEST 2 COMMUNTIY COMMUNTIY VIEWS HOSPITA HOSPITA FRONTAL&L ATERAL ECG 50966 [facility] ROUTINE 5 N N ECG COMMUNTIY COMMUNTIY W/LEAST HOSPITA HOSPITA 12 LDS TRCG ONLY W/O I&R LIPID 75232 [facility] PANEL 5 N N COMMUNTIY COMMUNTIY HOSPITA HOSPITA BLOOD 61834 [facility] COUNT 5 N N COMPLETE COMMUNTIY COMMUNTIY AUTOMATED HOSPITA HOSPITA COLLECTIO 24575 [facility] N VENOUS 5 N N BLOOD COMMUNTIY COMMUNTIY VENIPUNCT HOSPITA HOSPITA URE PHYSICAL 83860 [place] [facility] THERAPY 5 [facility] EVALUATIO INC INC N COLLECTIO 67787 [place] [facility] N VENOUS 5 [facility] BLOOD INC INC VENIPUNCT URE FIBRIN 50170 [place] [facility] DGRADJ 5 [facility] PRODUCTS INC INC D-DIMER QUAL/[place] [address] [place] [facility] TROPONIN 5 [facility] QUANTITAT INC INC SABIHA COMPREHEN 29997 [place] [facility] SIVE 5 [facility] METABOLIC INC INC PANEL BLOOD 91542 [place] [facility] COUNT 5 [facility] COMPLETE INC INC AUTO&AUTO DIFRNTL WBC URNLS DIP 71761 [place] [facility] 5 [facility] STICK/TAB INC INC LET REAGENT AUTO MICROSCOP Y ECG 72981 [place] [facility] ROUTINE 5 [facility] ECG INC INC W/LEAST 12 LDS TRCG ONLY W/O I&R ECG 13521 [place] CHAVEZ JR ROUTINE 5 [facility] W/LEAST P 12 LDS I&R ONLY RADIOLOGI 63967 [place] [facility] C EXAM 5 [facility] CHEST 2 INC INC VIEWS FRONTAL&L ATERAL RADIOLOGI 28314 [place] [facility] C EXAM 5 [facility] CHEST 2 INC INC VIEWS FRONTAL&L ATERAL ECG 22987 [place] MATUTE ROUTINE 5 [facility] W/LEAST P 12 LDS I&R ONLY ECG 28911 [place] [facility] ROUTINE 5 [facility] ECG INC INC W/LEAST 12 LDS TRCG ONLY W/O I&[place] [address] [place] [facility] ANGIOGRAP 5 [facility] HY CHEST INC INC W/CONTRAS T/NONCONT RAST BLOOD 53020 [place] [facility] COUNT 5 [facility] COMPLETE INC INC AUTO&AUTO DIFRNTL WBC COMPREHEN 79389 [place] [facility] SIVE 5 [facility] METABOLIC INC INC PANEL LOCM Q9967 [place] [facility] 300-399 5 [facility] MG/ML INC INC IOD[place] [address] [place] [facility] TROPONIN 5 [facility] QUANTITAT INC INC SABIHA FIBRIN 30720 [place] [facility] DGRADJ 5 [facility] PRODUCTS INC INC D-DIMER QUAL/SEMI GILBERT RADEX 08341 [facility] HARLEEN SHOULDER 4 MEDICAL COMPLETE IMAGING MINIMUM 2 ASS VIEWS REPAIR 29027 ATKINS ATKINS COMPLEX 4 TRA TRA SCALP/ARM /LEG 1.1-2.5 CM DESTRUCTI 81206 ATKINS ATKINS ON BENIGN 4 TRA TRA LESIONS UP TO 14 LEVEL III 55251 SCALF LEI SCALF LEI SURG 4 PATHOLOGY GROSS&[place] [address] SEJAL CANSECO HEAD/BRAI 4 MEDICAL ADRIANNA N W/O IMAGING CONTRAST ASS MATERIAL THERAPEUT 07424 [place] [facility] IC 4 [facility] INJECTION INC INC IV PUSH EACH NEW DRUG EGD 25869 [facility] TRANSORAL 4 N N BIOPSY [facility] COMMUNITY SINGLE/MU HOSPITA HOSPITA LTIPLE SPECIAL 94547 [facility], PICKLESIM STAIN 4 [facility] JR W[facility] GROUP 1 MICROORGA NISMS I&R SPCL STN 51668 [facility], PICKLESIM 2 [facility] 4 [facility] ER JR WANDA EXCPT MICROORG/ ENZYME/[place] [address] [facility], PICKLESIM SURG 4 [facility] ER JR WANDA PATHOLOGY GROSS&BRYCE ROSCOPIC EXAM ANES 54149 [facility] BENSON UPPER GI 4 ANESTHESI JOSE ANGEL ENDOSCOPY A GROUP PROXIMAL PS TO DUODENUM SPMTRY 06331 [place] [facility] W/VC 4 [facility] EXPIRATOR INC INC Y ABHI W/WO MXML VOL VNTJ LEVEL III 32381 SCALF LEI SCALF LEI SURG 4 PATHOLOGY GROSS&BRYCE ROSCOPIC EXAM EXC B9 15349 ADVANCED SCALF LEI LESION 4 DERMATOLO MRGN XCP GY SK TG S/N/H/F/G 1.1-2.0CM REPAIR 47671 ADVANCED SCALF LEI COMPLEX 4 DERMATOLO SCALP/ARM GY /LEG 1.1-2.5 CM RADIOLOGI 38173 [place] HARLEEN C EXAM 4 MEDICAL ADRIANNA CHEST 2 IMAGING VIEWS ASS FRONTAL&L ATERAL REMOVAL 65722 ATKINS ATKINS SKN TAGS 4 TRA TRA CLEAT LAYER FIBRQ TAGS ANY AREA UPW/15 CV STRS 56443 [place] MATUTE TST 4 [facility] RX CONT P ECG I&R ONLY ECHO 29363 [place] [facility] TTHRC R-T 4 [facility] 2D INC INC W/WOM-MOD E COMPL SPEC&COLR D CV STRS 70592 [place] [facility] TST 4 [facility] XERS&/OR INC INC RX CONT ECG TRCG ONLY RADIOLOGI 03545 [facility] C EXAM 4 MEDICAL CARMEN CHEST 2 IMAGING VIEWS ASS FRONTAL&L ATERAL ECG 60067 SCOTT CHAVEZ JR ROUTINE 4 DWI DWI ECG W/LEAST 12 LDS I&R ONLY ECG 29043 [place] [facility] ROUTINE 4 [facility] ECG INC INC W/LEAST 12 LDS TRCG ONLY W/O I&R BLOOD 88432 [place] [facility] COUNT 4 [facility] COMPLETE INC INC AUTO&AUTO DIFRNTL WBC RADIOLOGI 20831 [facility] ABBOTTUTCHER C 4 ADRIANNA ADRIANNA EXAMINATI [place] [address] [place] [facility] TROPONIN 4 [facility] QUANTITAT INC INC SABIHA BASIC 79998 [place] [facility] METABOLIC 4 [facility] PANEL INC INC CALCIUM TOTAL CREATINE 31072 [place] [facility] KINASE MB 4 [facility] FRACTION INC INC ONLY COMPREHEN 30644 [place] [facility] SIVE 4 [facility] [address] [place] [facility] TROPONIN 4 [facility] QUANTITAT INC INC SABIHA CREATINE 48209 [place] [facility] KINASE 4 [facility] TOTAL INC INC FIBRIN 25825 [place] [facility] DGRADJ 4 [facility] PRODUCTS INC INC D-DIMER QUAL/SEMI GILBERT BLOOD 65939 [place] [facility] COUNT 4 [facility] COMPLETE INC INC AUTO&AUTO DIFRNTL WBC ECG 11456 [place] [facility] ROUTINE 4 [facility] ECG INC INC W/LEAST 12 LDS TRCG ONLY W/O I&R ECG 30263 ANKUR SANCHEZEY ROUTINE 4 BRYCE BRYCE ECG W/LEAST 12 LDS I&R ONLY RADIOLOGI 77686 BEINEKE D BEINEKE D C EXAM 4 CHEST 2 VIEWS FRONTAL&L ATERAL HEMOGLOBI 30376 COMBINED COMBINED N 4 PHYSICIAN PHYSICIAN GLYCOSYLA S LA S LA LANEY A1C LIPID 92695 COMBINED COMBINED PANEL 4 PHYSICIAN PHYSICIAN S LA S LA SEDIMENTA 15541 COMBINED COMBINED TION RATE 4 PHYSICIAN PHYSICIAN RBC S LA S LA NON-AUTOM ATED 25 60138 COMBINED COMBINED HYDROXY 4 PHYSICIAN PHYSICIAN INCLUDES S LA S LA FRACTIONS IF PERFORMED CYANOCOBA 62476 COMBINED COMBINED LYUBOV 4 PHYSICIAN PHYSICIAN VITAMIN S [place] S LA B-12 [place] [address] COMBINED COMBINED FREE 4 PHYSICIAN PHYSICIAN THYROXINE S LA S LA GENERAL 13199 COMBINED COMBINED HEALTH 4 PHYSICIAN PHYSICIAN PANEL S LA S LA COMPUTER- 79390 [place]EN AIDED 4 MEDICAL ADRIANNA DETECTION IMAGING ASS SCREENING MAMMOGRAP HY SCREENING G0202 [place] HARLEEN 4 MEDICAL ADRIANNA MAMMOGRAP IMAGING HY WILBERT ASS INCL CAD WHEN PERFORMD LIPID 86347 [facility] PANEL 4 DIAGNOSTI DIAGNOSTI CS CS IIV3 25561 DHS/CO [place] VACCINE [address] [facility] VIRUS 0.5 BANK ACCT ML DOSAGE IM USE RADEX HIP 80717 [facility] HOANGSUMA, 9 MEDICAL MAX P UNILATERA IMAGING L ASSOCIATE COMPLETE S MINIMUM 2 VIEWS RADEX 87114 KIMBERLEE SANCHEZEY, SPINE 9 [facility] LUMBS[facility] CORPORATI COMPL ON W/BENDING VIEWS MIN 6 RADIOLOGI 00581 [place] [facility] C 9 [facility] EXAMINATI INC INC ON PELVIS 1/2 VIEWS RADEX 99191 [place] [facility] SPINE 9 [facility] LUMBOSACR INC INC AL MINIMUM 4 VIEWS Encounters Encounter Start End Date Code Location Performer Type Date OFFICE 71160 [facility] OUTPATIEN 7 7 PHYSICIAN T VISIT S GROUP 25 MINUTES OFFICE 12353 [facility] ISSA OUTPATIEN 7 7 PHYSICIAN T VISIT S GROUP 10 MINUTES [facility] [place] [facility] 7 [facility] OUTPATIEN INC T OFFICE 96622 [facility] OUTPATIEN 7 7 PHYSICIAN T VISIT S GROUP 25 MINUTES OFFICE 61288 [facility] 7 7 [place] T VISIT INTERNAL 15 MED MINUTES OFFICE 59936 [facility] OUTPATIEN 7 7 PHYSICIAN T VISIT S GROUP 25 MINUTES [facility] [place] [facility] 7 [facility] INC T [facility] 70009 [facility] [place] T VISIT ORTHOPAED 15 IC MINUTES [facility] [place] [facility] OUTPATIEN INC T EMERGENCY 13853 [facility] SANDHU DEPT 7 7 PHYSICIAN VISIT S, PLLC HIGH SEVERITY& THREAT FUNCJ EMERGENCY 58154 [place] 7 7 [facility] DEPARTMEN INC T VISIT HIGH/URGE NT SEVERITY OFFICE 71553 [facility] OUT[facility] 7 7 [facility] T VISIT INTERNAL 25 MED MINUTES OFFICE 57413 [place] OUTPATIEN 7 7 [facility] T VISIT 5 INC MINUTES [facility] [place] [facility] 7 7 [facility] OUTPATIEN [facility] OFFICE 57475 [facility] 7 7 [facility] NEW 30 ORTHOPAED MINUTES IC EMERGENCY 29097 [place] 7 7 [facility] DEPARTMEN [facility] T VISIT LOW/MODER SEVERITY [facility] [place] [facility] 7 7 [facility] OUTPATIEN [facility] [place] [facility] 7 7 [facility] OUTPATIEN [facility] EMERGENCY 81902 [place] 7 [facility] T VISIT MODERATE SEVERITY [facility] [place] - 7 7 [facility] OUTPATIEN [facility] EMERGENCY 58690 [facility] PASCUAL 7 7 PHYSICIAN [facility], [facility] T VISIT HIGH/URGE NT SEVERITY [facility] [place] [facility] 7 7 [facility] OUTPATIEN [facility] EMERGENCY 67851 [place] 7 7 [facility] T VISIT LOW/MODER SEVERITY OFFICE 27547 [place] OUT[facility] 7 7 [place] T VISIT INTERNAL 15 MED MINUTES EMERGENCY 23136 [facility] CHESTNUT [address] [facility] EMERGENCY T VISIT PHYS MODERATE SEVERITY [facility] [place] [facility] [address] [facility] EMERGENCY 03008 [place] 7 7 [facility] T VISIT LOW/MODER SEVERITY [facility] [place] [facility] 7 7 [facility] OUTPATIEN [facility] T OFFICE 63874 [place] OUTPATIEN 7 7 [facility] T VISIT 5 INC MINUTES OFFICE 92101 [place] OUT[facility]IEN 7 7 [place] T VISIT INTERNAL 15 MED MINUTES [facility] [place] [facility] 7 7 [facility] OUTPATIEN [facility] T OFFICE 86122 [place] OUT[facility]IEN 7 7 [facility] T VISIT 5 INC MINUTES OFFICE 78337 [place] OUT[facility]IEN 7 7 [facility] T VISIT 5 INC MINUTES [facility] [place] [facility] 7 [facility]EN [facility] [place] [facility] 7 [facility] OUTPATIEN [facility] T OFFICE 96929 [place] [facility] OUTPATIEN 7 7 [place] T VISIT INTERNAL 25 MED MINUTES OFFICE 74910 [place] OUTPATIEN 7 7 [facility] T NEW 10 INC MINUTES OFFICE 67193 [place] [facility] OUTPATIEN 7 7 T VISIT 25 MINUTES HOSPITAL [place] - 7 7 HEALTH OUTPATIEN [facility] EMERGENCY 05703 [place] 7 7 [facility] DEPARTMEN [facility] T VISIT LIMITED/M INOR PROB [facility] [place] [facility] 7 7 [facility] OUTPATIEN [facility] T EMERGENCY 92636 [place] 7 7 [facility] DEPARTMEN [facility] T VISIT LOW/MODER SEVERITY [facility] [place] [facility] 7 7 [facility] OUTPATIEN [facility] EMERGENCY 93896 [place] 7 7 [facility] T [facility]ISIT LIMITED/M INOR PROB [facility] [place] [facility] 7 7 [facility] OUTPATIEN [facility] HOSPITAL [place] - 7 7 HEALTH OUTPATIEN [facility] - 7 7 HEALTH OUTPATIEN [facility] [place] [facility] 6 6 [facility] OUTPATIEN [facility] T EMERGENCY 96218 S[facility] SOTOMAYOR, 6 6 PHYSICIAN [facility], [facility] T VISIT HIGH/URGE NT SEVERITY OFFICE 72468 [place] [facility] OUTPATIEN 6 6 [place] T VISIT INTERNAL 15 MED MINUTES EMERGENCY 65838 [place] 6 6 [facility] T VISIT MODERATE SEVERITY EMERGENCY 34670 [place] JAQUEZ 6 6 [facility] T VISIT HIGH/URGE NT SEVERITY [facility] [place] - 6 6 [facility] OUTPATIEN [facility] T EMERGENCY 26457 [place] 6 6 [facility] T VISIT LIMITED/M INOR PROB EMERGENCY 67763 [place] ARMIJO 6 6 PHYSICIAN [facility], [facility] T VISIT MODERATE SEVERITY [facility] [place] - 6 6 [facility] OUTPATIEN [facility] [place] - 6 6 [facility] OUTPATIEN [facility] T EMERGENCY 34773 [place] PASCUAL 6 6 [facility] T VISIT MODERATE SEVERITY EMERGENCY 95782 [place] 6 6 [facility] T VISIT LOW/MODER SEVERITY OFFICE 31700 [facility] SCIFRES OUTPATIEN 6 6 ANG ANG T VISIT 10 MINUTES OFFICE 19633 [place] [facility] OUTPATIEN 6 6 [place] OFELIA T VISIT INTERNAL 15 MED MINUTES OFFICE 40724 [facility] SANCHEZ [facility] OUTPATIEN 6 6 T VISIT BARIATRIC 25 SURGICAL MINUTES EMERGENCY 06978 [place] 6 6 [facility] T VISIT LOW/MODER SEVERITY EMERGENCY 51106 [place] SOTOMAYOR, 6 6 PHYSICIAN JR [facility] T VISIT HIGH/URGE NT SEVERITY [facility] [place] - 6 6 [facility] OUTPATIEN [facility] T [facility] [place] - 6 6 [facility] OUTPATIEN INC T EMERGENCY 63014 [place] 6 6 [facility] T [facility]ISIT LIMITED/M INOR PROB EMERGENCY 33135 [place] PASCUAL 6 6 PHYSICIAN BRYCE [facility] T VISIT MODERATE SEVERITY OFFICE 55057 [facility] FALLUJI OUTPATIEN 6 6 [facility] T VISIT MEDICAL 15 G MINUTES [facility] [place] [facility] 6 6 [facility] OUTPATIEN INC T OFFICE 77011 [facility] HUMPHREY OUTPATIEN 6 6 PHYSICIAN MEAGAN T VISIT S GROUP 15 MINUTES [facility] [place] [facility] OUTPATIEN INC T OFFICE 20421 [facility] ISSA OUTPATIEN 6 6 PHYSICIAN JARON T VISIT S GROUP 10 MINUTES [facility] [place] [facility] 6 6 [facility] OUTPATIEN INC T EMERGENCY 51650 [place] 6 6 [facility] DEPARTMEN INC T VISIT MODERATE SEVERITY [facility] [place] [facility] 6 6 [facility] OUTPATIEN INC T OFFICE 52012 [facility] ISSA OUTPATIEN 6 6 PHYSICIAN JARON T VISIT S GROUP 10 MINUTES [facility] [place] [facility] T OFFICE 24995 [facility] OUTPATI[facility] 6 6 [facility] HEN T VISIT MEDICAL 15 GROUP MINUTES OFFICE 11930 [place] [facility] OUTPATIEN 6 6 [facility] T VISIT HOSPITAL 10 P MINUTES [facility] 26347 [facility] 6 6 GROUND T VISIT FAMILY 25 CLINI MINUTES OFFICE 42671 [facility] 5 HLTH DEPT HLTH DEPT MINUTES [facility] EMERGENCY 45717 [place] 6 6 [facility] DEPART[facility] INC T VISIT LOW/MODER SEVERITY EMERGENCY 67842 [place] 6 6 [facility] DEPART[facility] INC T VISIT MODERATE SEVERITY EMERGENCY 80212 SMILEY ARMIJO 6 6 PHYSICIAN SILVIO DALE T VISIT HIGH/URGE NT SEVERITY [facility] [place] [facility] 6 6 [facility] INC T [facility] [place] - 6 6 [facility] OUTPATIEN INC T OFFICE 40860 [facility] OUTPATIEN 6 6 PHYSICIAN MAT T VISIT S GROUP 25 MINUTES [facility] [place] [facility] 6 6 [facility] INC T OFF[facility] 23997 [facility] T VISIT BARIATRIC 25 SURGICAL MINUTES [facility] [place] [facility] 6 6 [facility] OUTPATIEN INC T EMERGENCY 32469 SMILEY PASCUAL 6 6 PHYSICIAN SILVIO WHEELER T VISIT MODERATE SEVERITY EMERGENCY 14646 [place] 6 6 [facility] LOW/MODER SEVERITY OFFICE 28169 [facility] OUT[facility]INT JOSEPH BEREAEN 6 6 PHYSICIAN MAT T NEW 45 S GROUP MINUTES EMERGENCY 71084 [place] 6 6 [facility] VISIT LOW/MODER SEVERITY OFFICE 49661 [facility]HAL [facility] 6 [facility] [place] 40 CO MINUTES EMERGENCY 70665 SMI[facility] JIMENEZ 6 6 PHYSICIAN TAQUERIA HAWK T VISIT HIGH/URGE NT SEVERITY [facility] [place] [facility] 6 6 [facility] OUTPATIEN INC T EMERGENCY 85975 SMI[facility] PASCUAL 6 6 PHYSICIAN SILVIO WHEELER T VISIT MODERATE SEVERITY [facility] [place] - 6 6 [facility] OUTPATIEN INC T EMERGENCY 88282 [place] 6 6 [facility]IS[facility] LOW/MODER SEVERITY OFFICE 70979 CINTHYA DONALD OUTPATIEN 6 6 N T VISIT NEUROLOGY 10 MINUTES [facility] [place] - 6 6 [facility] OUTPATIEN [facility] EMERGENCY 52112 [place] 6 6 [facility] T VISIT LIMITED/M INOR PROB EMERGENCY 66406 SMILEY SOTOMAYOR, 6 6 PHYSICIAN JR BILLINGS [facility] S, [facility] T VISIT MODERATE SEVERITY [facility] [place] - 6 6 [facility]SAINT JOSEPH BEREAEN [facility] [place] - 6 6 [facility]PATIEN [facility] [place] [facility] 6 6 [facility]INT JOSEPH BEREAEN [facility] EMERGENCY 19526 [place] 6 6 [facility] VISIT MODERATE SEVERITY EMERGENCY 53477 SMILEY PASCUAL DEPT 6 6 [facility]YSIC[facility] SE[facility]& THREAT FUNCJ OFFICE 32569 [place] [facility] 6 6 [facility] VISIT HOSPITAL 10 P MINUTES EMERGENCY 69400 SMILEY SOTOMAYOR 6 6 PHYSICIAN JR BILLINGS [facility] S, [facility] HIGH/URGE NT SEVERITY [facility] [place] [facility] 6 6 [facility]INT JOSEPH BEREAEN [facility] EMERGENCY 22850 [place] 6 6 [facility] T VISIT MODERATE SEVERITY OFFICE 11741 [place] WEISS JR [facility] 6 6 [facility]IS[facility] 10 P MINUTES OFFICE 16751 ALLERGY ROSENTHAL MAR [facility] 6 6 [facility] [place] NEW/ESTAB CO PATIENT 60 MIN EMERGENCY 77621 SMILEY PASCUAL DEPT 6 6 PHYSICIAN BRYCE VISIT S, PLLC HIGH SEVERITY& THREAT FUNCJ EMERGENCY 90783 SMILEY PASCUAL 6 6 PHYSICIAN BRYCE DEPARTMEN S, [facility]IT MODERATE SEVERITY [facility] [place] Estes 6 6 [facility] JOSEPH BEREAEN [facility] T EMERGENCY 61110 [place] 6 6 [facility] T VISIT LOW/MODER SEVERITY [facility] [place] [facility] OUTPATIEN INC T EMERGENCY 94751 SMILEY PASCUAL DEPT 6 6 PHYSICIAN BRYCE VISIT S, PLLC HIGH SEVERITY& THREAT FUNCJ EMERGENCY 29886 [place] 6 6 [facility] INC T VISIT LOW/MODER SEVERITY OFFICE 11277 [facility] OUTPATIEN 6 6 PHYSICIAN T VISIT S GROUP 25 MINUTES [facility] [place] [facility] 6 6 [facility] INC T EMERGENCY 13534 [place] 6 6 [facility] DEPARTMEN INC T VISIT LOW/MODER SEVERITY EMERGENCY 47599 SMILEY PASCUAL 6 6 PHYSIC[facility]CE [facility] MODERATE SEVERITY EMERGENCY 57696 [place] 6 6 [facility] DE[facility] INC T VISIT LOW/MODER SEVERITY [facility] [place] [facility] 6 6 [facility] N OUTPATIEN COMMUNTIY T HOSPITA OFFICE 05552 [facility] ISSA OUTPATIEN 6 6 PHYSICIAN JARON T NEW 20 S GROUP MINUTES EMERGENCY 64131 [place] 6 6 [facility] DEPARTMEN INC T VISIT MODERATE SEVERITY [facility] [place] [facility] 6 6 [facility] OUTPATIEN INC T EMERGENCY 06472 SMILEY ARMIJO DEPT 6 6 PHYSICIAN CASANDRA VISIT S, PLLC HIGH SEVERITY& THREAT FUNCJ EMERGENCY 09708 SMILEY PASCUAL 6 6 PHYSICIAN BRYCE [facility] HIGH/URGE NT SEVERITY [facility] [place] [facility] T [facility] - 6 6 N OUTPATIEN COMMUNTIY T HOSPITA EMERGENCY 16589 [place] 6 6 [facility] DEPARTMEN INC T VISIT MODERATE SEVERITY [facility] [place] 6 6 [facility] OUTPATIEN INC T EMERGENCY 06805 SMILEY PASCUAL DEPT 6 6 PHYSICIAN BRYCE VISIT S, PLLC HIGH SEVERITY& THREAT [facility] OFFICE 82164 [facility] OUTPATIEN 6 6 T VISIT BARIATRIC 25 SURGICAL MINUTES [facility] [place] - 6 6 [facility] OUTPATIEN INC T HOSPITAL [facility] - 6 6 HEALTH OUTPATIEN [facility] EM[facility] 93126 [facility] 6 6 EMERGENCY HOW DEPARTMEN PHYS PSC T VISIT MODERATE SEVERITY EMERGENCY 05536 [place] 6 6 [facility] DEPART[facility] INC T VISIT LOW/MODER SEVERITY [facility] [place] 6 6 [facility] OUTPATIEN INC T EMERGENCY 03790 SMILEY BAGLEY DEPT 6 6 PHYSICIAN FOR VISIT S, PLLC HIGH SEVERITY& THREAT [facility] [place] 6 6 [facility] OUTPATIEN INC T EMERGENCY 98365 SMILEY PASCUAL 6 6 PHYSICIAN BRYCE DEPARTMEN S, PLLC T VISIT HIGH/URGE NT SEVERITY [facility] [place] [facility] 6 6 [facility] OUTPATIEN INC T EMERGENCY 04529 [place] 6 6 [facility] DEPARTMEN INC T VISIT LOW/MODER SEVERITY EMERGENCY 34646 [facility] 6 6 PHYSICIAN DEPARTMEN S, PLLC T VISIT HIGH/URGE NT SEVERITY [facility]OS[facility] 6 6 N OUTPATIEN COMMUNTIY T [facility] EMERGENCY 13719 [facility] 6 6 [place]AL[place] JOSE ANGEL DEPARTMEN EMERGENCY T VISIT PHYS HIGH/URGE NT SEVERITY EMERGENCY 70167 [place] DEPT 6 6 [facility] VISIT INC HIGH SEVERITY& THREAT FUN [facility] [place] - 6 6 [facility] OUTPAT[facility] INC T OFFICE 11493 CINTHYA RODRIGUEZ SHABANA CONSULTAT 6 6 N ION NEUROLOGY NEW/ESTAB PATIENT 60 MIN OFFICE 38021 [facility] OUT[facility]IEN 6 6 MATTI MATTI T NEW 30 MINUTES OFFICE 19325 SCALF LEI SCALF LEI OUTPATIEN 6 6 T VISIT 25 MINUTES [facility] [place] [facility] 6 6 [facility] INC T EMERGENCY 67061 SMILEY PASCUAL DEPT 6 6 PHYSICIAN BR[facility]CE [facility] HIGH SEVERITY& THREAT FUNJ EMERGENCY 43286 [place] 6 6 [facility] DEPART[facility] INC T VISIT HIGH/URGE NT SEVERITY OFFICE 00708 [place] [facility] OUTPATIEN 6 6 [facility] T VISIT INTERNAL 15 MED MINUTES HOSPITAL [facility] - 6 6 HEALTH OUTPATIEN [place] [facility] [place] - 6 6 [facility] OUTPATIEN INC T EMERGENCY 64706 [place] 6 6 [facility] DEPARTMEN INC T VISIT HIGH/URGE NT SEVERITY EMERGENCY 48651 SMILEY PASCUAL DEPT 6 6 PHYSICIAN BRYCE [facility] HIGH SEVERITY& THREAT FUN [facility] [place] [facility] 6 6 [facility] OUTPATIEN INC T OFFICE 04419 MANDAEN BOLIEK OUTPATIEN 6 6 HEALTH KADIE T VISIT MEDICAL 15 GROUP MINUTES OFFICE 64997 [facility] SANCHEZ MICHELLE OUTPATIEN 6 6 T VISIT BARIATRIC 25 SURGICAL MINUTES [facility] [place] [facility] 6 6 [facility] OUTPATIEN INC T OFFICE 18861 [place] [facility] OUTPATIEN 6 6 [facility] T VISIT INTERNAL 15 MED MINUTES INITIAL 53367 [facility] PREVENTIV 6 6 PHYSICIAN E S GROUP MEDICINE NEW PATIENT 40-64YRS [facility] [place] - 6 6 [facility] OUTPATIEN INC T OFFICE 12964 MANDAEN BOLIEK OUTPATIEN 6 6 PRIMARY KADIE T VISIT CARE OF 15 ABISAI MINUTES OFFICE 48084 [place] A[facility] OUTPATIEN 6 6 [place] [facility] T VISIT INTERNAL 15 MED MINUTES [facility] [place] - 6 6 [facility] OUTPATIEN INC T OFFICE 79485 WENDY SANCHEZ MICHELLE OUTPATIEN 5 5 T VISIT BARIATRIC 25 SURGICAL MINUTES OFFICE 73604 ATKINS ATKINS OUTPATIEN 5 5 TRA TRA T VISIT 25 MINUTES PERIODIC 69294 [facility] DEPT HL DEPT PATIENT JAZZ JAZZ 40-64YRS OFFICE 42807 WENDY SANCHEZ MICHELLE OUTPATIEN 5 5 T VISIT BARIATRIC 15 SURGICAL MINUTES [facility] [place] - 5 5 [facility]PAT[facility] INC T [facility] [place] - 5 5 [facility] OUTPATI[facility] INC T OFFICE 56388 [place] A[facility] OUTPATIEN 5 5 [facility] T NEW 30 INTERNAL MINUTES MED OFFICE 23926 [facility] PETTEY OUTPATIEN 5 5 PHYSICIAN JAM T VISIT S GROUP 15 MINUTES OFFICE 17106 GASTROENT CASE JUS OUTPATIEN 5 5 EROLOGY T VISIT AND 15 HEPATOL MINUTES OFFICE 28817 MANDAEN BOLIEK OUTPATIEN 5 5 HEALTH KADIE T VISIT MEDICAL 10 GROUP MINUTES [facility] [place] - 5 5 N OUTPATIEN COMMUNTIY [facility] [place] - 5 5 [facility] OUTPATIEN INC T EMERGENCY 80424 SMILEY HUTCHISON 5 5 [facility] T VISIT HIGH/URGE NT SEVERITY [facility] - 5 5 N OUTPATIEN COMMUNTIY [facility] [place] [facility] 5 5 [facility] OUTPATIEN [facility] OFFICE 60017 GASTROENT CASE JUS OUTPATIEN 5 5 EROLOGY T NEW 45 AND MINUTES HEPATOL EMERGENCY 57249 [place] SOTOMAYOR, 5 5 [facility] T VISIT P LOW/MODER SEVERITY [facility] [place] - 5 5 [facility] OUTPATIEN [facility] OFFICE 91620 [facility]EL [facility] JOSEPH BEREAEN 5 5 [facility] T VISIT 15 MINUTES EMERGENCY 17872 [place] SOTOMAYOR 5 5 [facility] T VISIT P MODERATE SEVERITY [facility] [place] - 5 5 [facility] OUTPATIEN [facility] H[facility] - 5 5 N OUTPATIEN COMMUNTIY [facility] 5 5 N OUTPATIEN COMMUNTIY [facility] [place] 8[address] 5 N [facility] [place] - 5 5 [facility] OUTPATIEN [facility] T OFFICE 84093 WENDY MARTINEZ OUTPATIEN 5 5 T VISIT BARIATRIC 40 SURGICAL MINUTES OFFICE 64270 DANIEL SANCHEZ OUTPATIEN 5 5 [facility] T VISIT 15 MINUTES EMERGENCY 85275 [place] PASCUAL 5 5 [facility] T VISIT P LOW/MODER SEVERITY [facility] [place] - 5 5 [facility] OUTPATIEN [facility] [place] Estes 5 5 [facility] OUTPATIEN [facility] HOSPITAL C[facility] - 5 5 N OUTPATIEN COMMUNTIY T [facility] [place] [facility] 5 5 [facility] OUTPATIEN INC T OFFICE 61138 [place] CELI OUTPATIEN 5 5 [facility] 20 HOSPITAL MINUTES P [facility]OSP[facility] [place] - 5 5 [facility] OUTPATIEN INC T OFFICE 63482 MELANIE HENNESSYNOGUEIRA OUTPATIEN 5 5 MEDICAL JAM T VISIT SERV 15 FOUNDATIO MINUTES N OFFICE 12996 [place] WEISS JR OUTPATIEN [address] MINUTES P OFFICE 52255 [facility] PETTEMago OUTPATIEN 5 5 PHYSICIAN JAM T [facility] S GROUP MINUTES OFFICE 20286 [facility] 5 5 [facility]ICAL NEW/ESTAB G PATIENT 60 MIN OFFICE 30231 DANIEL TOLEDOPATIEN 5 5 [facility] T VISIT 15 MINUTES EMERGENCY 71117 [place] 5 5 [facility] DEPARTMEN INC T VISIT HIGH/URGE NT SEVERITY [facility] [place] - 5 5 [facility] OUTPATIEN INC T EMERGENCY 32295 [place] ESCOTO 5 5 [facility] T VISIT P MODERATE SEVERITY EMERGENCY 26207 [place] 5 5 [facility] DEPARTMEN INC T VISIT HIGH/URGE NT SEVERITY [facility] [place] - 5 5 [facility] OUTPATIEN INC T OFFICE 52203 DANIEL TOLEDOPATIEN 5 5 [facility] T VISIT 15 MINUTES OFFICE 83804 DANIEL RECIOEN 4 4 [facility] T VISIT 15 MINUTES [facility] [place] - 4 4 [facility] OUTPATIEN INC T EMERGENCY 10066 [place] 4 4 [facility] DEPARTMEN INC T VISIT LOW/MODER SEVERITY OFFICE 86390 DANIEL DANIEL OUTPATIEN 4 4 [facility] T VISIT 15 MINUTES [facility] [place] - 4 4 [facility] OUTPATIEN INC T EMERGENCY 53039 [facility] DEPT 4 4 ROSALEE VISIT EMERGENCY HIGH PHYS SEVERITY& THREAT [facility] - 4 4 N OUTPATIEN COMMUNITY T HOSPITA OFFICE 91419 ARMANDOBING DANIEL OUTPATIEN 4 4 [facility] T VISIT 15 MINUTES OFFICE 78992 MONALISA CHAPIN CONSULTAT 4 4 KADIE ION CARDIOLOG NEW/ESTAB Y AT CENT PATIENT 40 MIN [facility] [place] - 4 4 [facility] OUTPATIEN INC T OFFICE 93797 MELANIE NOGUEIRA CONSULTAT 4 4 MEDICAL JAM ION SERV NEW/ESTAB FOUNDATIO PATIENT N 60 MIN [facility] [place] - 4 4 [facility] OUTPATIEN INC T OFFICE 54687 DANIEL SANCHEZ OUTPATINEENA 4 4 [facility] T VISIT 15 MINUTES OFFICE 68459 [facility] OUTPATIEN 4 4 [facility] T VISIT MEDICAL 15 G MINUTES OFFICE 63782 ATKINS ATKINS CONSULTAT 4 4 TRA TRA ION NEW/ESTAB PATIENT 40 MIN [facility] [place] - 4 4 [facility] OUTPATI[facility] INC T OFFICE 59118 [facility] 4 4 [facility] T NEW 30 MEDICAL MINUTES G EMERGENCY 01175 [facility] ALFARIS DEPT 4 4 ROSALEE MOH VISIT EMERGENCY HIGH PHYSI SEVERITY& THREAT [facility] [place] - 4 4 [facility] OUTPATIEN INC T EMERGENCY 62989 [place] 4 4 [facility] DEPARTMEN INC T VISIT MODERATE SEVERITY EMERGENCY 80752 [facility] 4 4 VISIT HIGH SEVERITY& THREAT FUNCJ EMERGENCY 01809 [place] 4 4 [facility] DEPARTMEN INC T VISIT HIGH/URGE NT SEVERITY [facility] [place] - 4 4 [facility] OUTPATIEN INC T EMERGENCY 82393 ANKUR PASCUAL DEPT 4 4 BRYCE BRYCE VISIT HIGH SEVERITY& THREAT FUNJ OFFICE 55302 DANIEL SANCHEZ OUTPATIEN 4 4 [facility] T VISIT 15 MINUTES OFFICE 91954 SANCHEZ MICHELLE SANCHEZ MICHELLE CONSULTAT 4 4 ION NEW/ESTAB PATIENT 80 MIN OFFICE 59286 DANIEL TOLEDOPATINEENA 4 4 [facility] HUBER T NEW 30 MINUTES [facility] [place] - 4 4 [facility] OUTPATIEN INC T OFFICE 74328 MAEGAN ISSA OUTPATIEN 4 4 JARON JARON T VISIT 5 MINUTES OFFICE 37022 MAEGAN ISSA OUTPATIEN 4 4 JARON JARON T NEW 30 MINUTES EMERGENCY 41950 KIMBERLEE PASCUAL, 9 9 [facility] T VISIT ON HIGH/URGE NT SEVERITY [facility] [place] - 9 9 [facility] OUT[facility]IEN INC T EMERGENCY 33544 [place] 9 9 [facility] DE[facility] INC T VISIT LOW/MODER SEVERITY
--- OUTSIDE RECORDS SUMMARY | 2017-03-24 01:12 | External Medical Summary Rpt ---
Author Author , Organization [employer] Address Unknown Phone Unavailable Purpose Continuity of Care Document - 1971 through 2016 Immunization Name Date Route CVX Reacti Commen Provid Is Given on t er Refuse d Tdap, Histor [place] No Adsorb 2015 ical FEBRUARY ed Inform ation - Source Unspec ified Td, UF 139 Histor [place] No 2005 ical Inform ation - Source Unspec ified Td, UF 139 Histor [place] No 1996 ical Inform ation - Source Unspec ified MMR 06-16- 3 Histor [place] No 1992 ical Inform ation - Source Unspec ified Td, UF 139 Histor [place] No 1986 ical Inform ation - Source Unspec ified MMR 04-17- 3 Histor [place] No 1976 ical Inform ation - Source Unspec ified Polio, Histor [place] No UF 1976 ical Inform ation - Source Unspec ified DTP Histor [place] No 1976 ical Inform ation - Source Unspec ified Polio, Histor [place] No UF 1972 ical Inform ation - Source Unspec ified DTP Histor [place] No 1972 ical Inform ation - Source Unspec ified MMR 10-01- 3 Histor [place] No 1971 ical Inform ation - Source Unspec ified Polio, Histor [place] No UF 1971 ical Inform ation - Source Unspec ified Polio, Histor [place] No UF 1971 ical Inform ation - Source Unspec ified DTP Histor [place] No 1971 ical Inform ation - Source Unspec ified DTP Histor [place] No 1971 ical Inform ation - Source Unspec ified Polio, Histor [place] No UF 1971 ical Inform ation - Source Unspec ified DTP 1 Histor [place] No 1971 uscula ical r Inform ation - Source Unspec ified
--- OUTSIDE RECORDS SUMMARY | 2017-03-24 01:12 | External Medical Summary Rpt ---
Author Author , Organization [employer] Address Unknown Phone Unavailable Purpose Continuity of Care Document - 1971 through 2016 Immunization Name Date Route CVX Reacti Commen Provid Is Given on t er Refuse d Tdap, Histor [place] No Adsorb 2015 ical FEBRUARY ed Inform ation - Source Unspec ified Td, UF 139 Histor [place] No 2005 ical Inform ation - Source Unspec ified Td, UF 139 Histor [place] No 1996 ical Inform ation - Source Unspec ified MMR 06-16- 3 Histor [place] No 1992 ical Inform ation - Source Unspec ified Td, UF 139 Histor [place] No 1986 ical Inform ation - Source Unspec ified MMR 04-17- 3 Histor [place] No 1976 ical Inform ation - Source Unspec ified Polio, Histor [place] No UF 1976 ical Inform ation - Source Unspec ified DTP Histor [place] No 1976 ical Inform ation - Source Unspec ified Polio, Histor [place] No UF 1972 ical Inform ation - Source Unspec ified DTP Histor [place] No 1972 ical Inform ation - Source Unspec ified MMR 10-01- 3 Histor [place] No 1971 ical Inform ation - Source Unspec ified Polio, Histor [place] No UF 1971 ical Inform ation - Source Unspec ified Polio, Histor [place] No UF 1971 ical Inform ation - Source Unspec ified DTP Histor [place] No 1971 ical Inform ation - Source Unspec ified DTP Histor [place] No 1971 ical Inform ation - Source Unspec ified Polio, Histor [place] No UF 1971 ical Inform ation - Source Unspec ified DTP 1 Histor [place] No 1971 uscula ical r Inform ation - Source Unspec ified
[2017-03-25] MEDS ORDERED: VISTARIL25 MG PO (21:09)
== END 2017-03-22 21:55 | disposition home or self-care (01) ==
LOC: ER 18:01
PROVIDERS: General Practice
DX: R11.0 Nausea (principal); T50.995A Adverse effect of other drugs, medicaments and biological substances, initial encounter

== ENCOUNTER 2017-06-20 19:10 | Emergency (ER) | payer MEDICAID ==
[~2017-06-20] VITALS: Ht 170.2 cm; Wt 119.8 kg
[~2017-06-20 19:10] MED LIST changes: +AUGMENTIN 875-1 EACH PO; +LOVASTATIN20 MG PO; +METOCLOPRAMIDE10 M2 PO; +VISTARIL25 MG PO
[2017-06-20 19:38] LABS: URINE BILIRUBIN - DIPSTICK NEGATIVE (NEG); URINE BLOOD NEGATIVE (NEG)
--- OUTSIDE RECORDS SUMMARY | 2017-06-20 20:02 | External Medical Summary Rpt ---
Author Author , YENNY RAMON Address Unknown Phone [email or web address] Team Providers Care Wound Care Rn Name Role Phone ALFARIS MOH, ALFARIS Unavailable Unavailable [facility]OH [facility] Unavailable [place]available [place], [facility] [place] YVETTE JURADO MD, PSC, Unavailable Unavailable YVETTE JURADO MD, PSC ARNOLD HUBER, ARNOLD Unavailable Unavailable HUBER ARNOLD HUBER, ARNOLD Unavailable Unavailable HUBER ATKINS TRA, ATKINS Unavailable Unavailable TRA ATKINS TRA, ATKINS Unavailable Unavailable TRA MICHELLE ALI, MICHELLE Unavailable Unavailable ALI [facility] Unavailable Unavailable [facility] Unavailable Unavailable [facility], [facility] Un[facility] Unavailable [facility], [facility] Unavailable Unavailable OF [facility], [facility] BUCHANAN, BEMICHAEL Unavailable Unavailable BEINEKE CARMEN, BEINEKE Unavailable Unavailable CARMEN BESSON, BESSON Unavailable Unavailable BESSON DOMINIQUE, BESSON Unavailable Unavailable DOMINIQUE [facility] Unavailable Unavailable [facility], [facility] BOLIEK KADIE, BOLIEK Unavailable Unavailable KADIE CERRATO, CERRATO Unavailable Unavailable CERRATO ALL, CERRATO ALL Unavailable Unavailable [facility]available [facility] Unavailable Unavailable SERVICE, [facility] Unavailable Unavailable SERVICE, [facility] BUX, BUX Unavailable Unavailable SVITLANA KILO, SVITLANA Unavailable Unavailable KILO CASE JUS, CASE JUS Unavailable Unavailable [facility] Unavailable Unavailable [facility], [facility] CHESTNUT, CHESTNUT Unavailable Unavailable HUMPHREY, HUMPHREY Unavailable Unavailable HUMPHREY MEAGAN, HUMPHREY Unavailable Unavailable [facility] Unavailable [facility], Unavailable Unavailable [facility] Unavailable Unavailable [facility], [facility] FUNES, FUNES Unavailable Unavailable ISELA JR, ISELA JR Unavailable Unavailable ISELA JR KADIE, ISELA Unavailable Unavailable JR KADIE HARLEEN, HARLEEN Unavailable Unavailable HARLEEN ADRIANNA, Unavailable Unavailable HARLEEN ADRIANNA CELI, CELI Unavailable Unavailable CELI PHI, Unavailable Unavailable CELI PHI LOCKHART, LOCKHART Unavailable Unavailable DUFF, DUFF Unavailable Unavailable FALLUJI NACHO, FALLUJI Unavailable Unavailable NACHO FEEBACK, FEEBACK Unavailable Unavailable MARIN JOSE ANGEL, MARIN Unavailable Unavailable JOSE ANGEL ARSLAN, ARSLAN Unavailable Unavailable ARSLAN OFELIA, Unavailable Unavailable ARSLAN OFELIA JR SOTOMAYOR FULLER, Unavailable Unavailable JR SOTOMAYOR, JR ELZ, Unavailable Unavailable SOTOMAYOR, JR ELZ ANKUR, ANKUR Unavailable Unavailable ANKUR BRYCE, ANKUR Unavailable Unavailable BRYCE ANKUR BRYCE, ANKUR Unavailable Unavailable BRYCE ANKUR, BK S, Unavailable Unavailable ANKUR, BK S [facility] Unavailable Unavailable [facility], [facility] Unavailable Unavailable HOSPITA, [facility] Unavailable Unavailable HOSPITA, [facility] RODRIGUEZ TRI, RODRIGUEZ TRI Unavailable Unavailable ANDREWS RHO, ANDREWS Unavailable Unavailable RHO [facility] Unavailable Unavailable CENTER, [facility] Unavailable Unavailable INC, [facility] Unavailable Unavailable HOSPITAL P, [facility] BOYER CHRISTEL, BOYER CHRISTEL Unavailable Unavailable BOYER CHRISTEL, BOYER CHRISTEL Unavailable Unavailable [facility], Unavailable Unavailable [facility] JAQUEZ, JAQUEZ Unavailable Unavailable VAUGHN TERA, VAUGHN Unavailable Unavailable TERA ADAMS, ADAMS Unavailable Unavailable ILUYOMADE ROT, Unavailable Unavailable ILUYOMADE ROT FELICIA, DUARTE Unavailable Unavailable [facility] Unavailable Unavailable GROUP PS, [facility] Unavailable Unavailable [facility], [facility] Unavailable Unavailable MEDICAL G, [facility] ELYSSA BURNETT, Unavailable Unavailable ELYSSA Burnett MD, Unavailable Unavailable Elyssa Burnett MD KRASNOPOLSKY LAUREN, Unavailable Unavailable KRASNOPOLSKY LAUREN [place] [...] JR DWI, SCOTT Unavailable Unavailable JR DWI [facility] Unavailable Unavailable SPECIALISTS,, [facility], [facility] Unavailable Unavailable INTERNAL MED, [facility] BRITTNY, BRITTNY Unavailable Unavailable BRITTNY ANT, BRITTNY ANT Unavailable Unavailable NAJERA, NAJERA Unavailable Unavailable LUKING, LUKING Unavailable Unavailable LUKING, LUKING Unavailable Unavailable LUKING MATTI, LUKING Unavailable Unavailable MATTI TOD, TOD Unavailable Unavailable CHRIS, CHRIS Unavailable Unavailable VIANEY PAULETTE, VIANEY Unavailable Unavailable PAULETTE NOGUEIRA, NOGUEIRA Unavailable Unavailable NOGUEIRA JAM, Unavailable Unavailable NOGUEIRA JAM SUMA, MAX P, Unavailable Unavailable SUMA, MAX P [facility], Unavailable Unavailable [facility] Un[facility], Unavailable Unavailable PLLC, [facility] PETTEY JAM, PETTEY Unavailable Unavailable JAM PICKLESIMER JR, Unavailable Unavailable PICKLESIMER JR PICKLESIMER JR WANDA, Unavailable Unavailable PICKLESIMER JR WANDA [facility], Unavailable Unavailable [facility], Unavailable Unavailable [facility] GARCIA, GARCIA Unavailable Unavailable RADMANESH SHA, Unavailable Unavailable RADMANESH SHA RENUSCH, RENUSCH Unavailable Unavailable RENUSCH CASANDRA, RENUSCH Unavailable Unavailable CASANDRA ANDRES IV, ANDRES Unavailable Unavailable IV ANDRES IV HEN, Unavailable Unavailable ANDRES IV [...] Unavailable KIMBERLY MAT, Unavailable Unavailable KIMBERLY MAT BENSON, BENSON Unavailable Unavailable BENSON JOSE ANGEL, BENSON Unavailable Unavailable JOSE ANGEL RODRIGUEZ SHABANA, RODRIGUEZ SHABANA Unavailable Unavailable RODRIGUEZ LEENA, RODRIGUEZ LEENA Unavailable Unavailable SOTINGEANU, Unavailable Unavailable SOTINGEANU SOTINGEANU CARMEN, Unavailable Unavailable SOTINGEANU CAR[facility] Un[facility] Unavailable [facility], [facility] STROUB, STROUB Unavailable Unavailable [facility] Unavailable Unavailable [id number], [facility] WALK[facility] FOR, WALKER Unavailable Unavailable FOR [facility] Unavailable Unavailable DEPT [facility] [place], [facility] DEPT [facility] Unavailable Unavailable DEPT JAZZ, [facility] DEPT [facility]ZZ SANCHEZ, SANCHEZ Unavailable Unavailable SANCHEZ MICHELLE, SANCHEZ MICHELLE Unavailable Unavailable WELLS ELLEN, WELLS ELLEN Unavailable Unavailable WELLS SHA, WELLS SHA Unavailable Unavailable ROSENTHAL MAR, ROSENTHAL MAR Unavailable Unavailable SARAH KADIE, SARAH KADIE Unavailable Unavailable Purpose Continuity of Care Document - 01-04-2009 through 2016 Problems Code Diagnosis DOS Provider Status K219 GASTRO-ESOP 05-19-2017 [facility] DISEASE CTR WITHOUT ESOPHAGITIS R1310 DYSPHAGIA 05-19-2017 [facility] UNSPECIFIED PHYS SURG CTR Z9884 BARIATRIC 05-19-2017 [facility] SUR[facility]ERY [facility] SUR[facility] STATUS CTR J069 ACUTE UPPER 05-05-2017 [facility] HOSP RESPIRATORY INC INFECTION UNSPECIFIED R072 PRECORDIAL 05-05-2017 [facility] , E785 HYPERLIPIDE 05-04-2017 [facility] P R0789 OTHER CHEST 05-04-2017 [facility] PAIN PHYSICIANS, [facility] R079 CHEST PAIN 05-04-2017 [facility] P Z809 FAMILY 05-04-2017 [facility] OF [facility] MALIGNANT INC NEOPLASM UNSPECIFIED Z8249 FAMILY HX 05-04-2017 [facility] ISCHEMIC [facility] HRT DZ [facility] P DZ CIRC SYSTEM Z833 FAMILY 05-04-2017 [facility] P MELLITUS A65566 ENCOUNTER 04-30-2017 [facility] FOR HEALTH PREPROCEDUR [place] CARIOVASCUL AR EXAM M14824 ENCOUNTER 04-30-2017 [facility]AM B977 PAPILLOMAVI 04-29-2017 [facility] OF DZ CLASSIFIED ELSEWHERE E7800 PURE 04-29-2017 [facility] HYPERCHOLES VALLEY TEROLEMIA INTERNAL UNSPECIFIED MED J309 ALLERGIC 04-29-2017 [facility] RHINITIS VAL[place] UNSPECIFIED INTERNAL MED M797 FIBROMYALGI 04-29-2017 [facility] A VALLEY INTERNAL MED N870 MILD 04-29-2017 [facility], CERVICAL LLC DYSPLASIA M87359 ATYP SQ 04-29-2017 [facility] CELLS UNDET PHYSICIANS GROUP SIGNIFICANC E CYTOL SMER CERV X69317 CERV HIGH 04-29-2017 [facility] PAPILLOMAVI GROUP RAJ DNA TEST POS 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 ESOPHAGUS [place] L42569 DECREASED 04-09-2017 [facility] WHITE BLOOD [facility] CELL COUNT [facility] P UNSPECIFIED K449 DIAPHRAGMAT 04-08-2017 [facility] HERNIA HEALTH W/O MEDICAL OBSTRUCTION GROUP OR GANGRENE R110 NAUSEA 04-08-2017 [facility] R1319 OTHER 04-08-2017 [facility] DYSPHAGIA [facility] [id number] SPONDYLOSIS 04-07-2017 YVETTE JURADO, W/O MD, PSC MYELOPATH/R ADICULOPATH Y LUMB RGN M479 SPONDYLOSIS 04-07-2017 [facility] HOSP UNSPECIFIED INC 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-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, PSC RAL DISC DEGEN LUMBAR REGION R202 PARESTHESIA 04-07-2017 [facility] OF SKIN [place] INTERNAL MED J320 CHRONIC 04-02-2017 [facility]ARY [facility] HOSP SINUSITIS INC R350 FREQUENCY 03-27-2017 [facility] P R3915 URGENCY OF 03-27-2017 [facility] URINATION [facility] P R200 ANESTHESIA 03-25-2017 [facility] SKIN MEDICAL IMAGING ASS R42 DIZZINESS 03-25-2017 [facility] GIDDINESS IMAGING ASS R51 HEADACHE 03-25-2017 [facility] HOSP INC D709 NEUTROPENIA 03-24-2017 [facility] P [id number] ADVERSE EFF 03-22-2017 [facility] SHERIFF, ALEXANDER PLLC DS SYNTH ANALOG INIT ENC [id number] ADVERS EFF 03-22-2017 [facility] OT RX MEDS [facility] BIO INC SUBSTANCES INIT ENC X03391 OTHER 03-21-2017 [facility] SPONDYLOSIS [facility]OS[facility] LUMBAR INC REGION M5116 INTERVERTEB 03-21-2017 [facility] RAL DISC [facility] D/O INC W/RADICULOP ATHY LUMB RGN H90698 ENCOUNTER 03-19-2017 [facility], ON SITE MANAGER EXAM LLC GENERAL RTN W/ABNORMAL FIND D24901 ENCOUNTER 03-19-2017 [facility] ON SITE MANAGER EXAM PHYSICIANS GENERAL RTN GROUP W/O ABNORMAL FIND H6982 OTHER SPEC 03-13-2017 [facility] DISORDERS PHYSICIANS EUSTACHIAN GROUP TUBE LT EAR 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 GROUP CONTRALAT SIDE R300 DYSURIA 03-12-2017 [facility] PLLC M4726 OTH 03-03-2017 [facility] SPONDYLOSIS [facility] INC W/RADICULOP ATHY LUMBAR REGION N390 URINARY 03-03-2017 [facility] TRACT [facility] INFECTION INC SITE NOT SPECIFIED R911 SOLITARY 02-27-2017 [facility] [place] PULMONARY MEDICAL NODULE IMAGING ASS Z09 ENC F/U 02-27-2017 [place] EXAM AFTR MEDICAL CMPL TX OTH IMAGING ASS THAN MALIG NEOPLSM E669 OBESITY 02-25-2017 [facility] UNSPECIFIED PHYSICIANS GROUP I119 HYPERTENSIV 02-25-2017 [facility] E HEART PHYSICIANS DISEASE GROUP WITHOUT HEART FAILURE R0600 DYSPNEA 02-25-2017 [facility] UNSPECIFIED PHYSICIANS GROUP [id number] PAIN IN 02-18-2017 [facility] LEFT [facility] SHOULDER INC M5440 LUMBAGO 02-18-2017 [facility] WITH [facility] SCIATICA INC UNSPECIFIED SIDE J310 CHRONIC 02-17-2017 [facility] RHINITIS PHYSICIANS GROUP J329 CHRONIC 02-17-2017 [facility] SINUSITIS PHYSICIANS UNSPECIFIED GROUP J342 DEVIATED 02-17-2017 [facility] NASAL PHYSICIANS SEPTUM GROUP M5416 RADICULOPAT 02-17-2017 [facility] HY LUMBAR [facility] REGION INC M545 LOW BACK 02-17-2017 YVETTE JURADO, PAIN , PSC K5900 CONSTIPATIO 02-14-2017 [facility] MEDICAL UNSPECIFIED IMAGING ASS I998 OTHER 02-11-2017 [facility] DISORDER OF [facility] INC CIRCULATORY SYSTEM R0602 SHORTNESS 02-11-2017 [facility] OF BREATH [facility] INC G8929 OTHER 02-10-2017 [facility] CHRONIC VALLEY PAIN INTERNAL MED R002 PALPITATION 01-31-2017 [facility] S PHYSICIANS GROUP R5383 OTHER 01-31-2017 [facility] FATIGUE PHYSICIANS GROUP M792 NEURALGIA 01-27-2017 [facility] AND VALLEY NEURITIS INTERNAL UNSPECIFIED MED I10 ESSENTIAL 01-26-2017 [facility] PRIMARY [facility] HYPERTENSIO INC N M542 CERVICALGIA 01-26-2017 [facility] INC T09307 SPONDYLOSIS 01-22-2017 [place] W/O MEDICAL MYELOPATH/R IMAGING ASS ADICULOPATH Y CERV RGN [id number] STRAIN 01-22-2017 [facility] MUSCLE FASC PHYSICIANS, & TENDON PLLC NECK LEVL INIT ENC E559 VITAMIN D 01-21-2017 [facility] DEFICIENCY [facility] UNSPECIFIED INC [id number] STRAIN 01-16-2017 [facility] MUSCLE & PHYSICIANS, TENDON UNS PLLC WALL THORAX INIT ENC U79862 OTHER LONG 01-11-2017 [facility] DRUG THERAPY Z882 ALLERGY 01-11-2017 [place] S STATUS Z886 ALLERGY 01-11-2017 [facility] ANAL[facility]ESIC [facility] AGENT STATUS Z888 ALLERGY 01-11-2017 [facility] STATUS OTH [facility] RX MEDS & HOSPITAL BIOLOG SUBSTAN STS H9203 OTALGIA 01-10-2017 [facility] BILATERAL [facility] INC I209 ANGINA 01-10-2017 [facility] PECTORIS [facility] UNSPECIFIED INC R071 CHEST PAIN 01-07-2017 [facility] INTERNAL MED Z720 TOBACCO USE 01-04-2017 [facility] INC W19038 MUSCLE 12-25-2016 [facility] SPASM OF MEM HOS[facility] BACK INC R1013 EPIGASTRIC 12-25-2016 [facility] PAIN [place] INTERNAL MED R4702 DYSPHASIA 12-25-2016 [facility] [place] INTERNAL MED B078 OTHER VIRAL 12-23-2016 [facility] WARTS K30 FUNCTIONAL 12-23-2016 [facility] DYSPEPSIA HEALTH [place] L218 OTHER 12-23-2016 [facility] SEBORRHEIC DERMATITIS L538 OTHER 12-23-2016 [facility] SPECIFIED ERYTHEMATOU S CONDITIONS R208 OTHER 12-23-2016 [facility] DISTURBANCE S OF SKIN SENSATION R238 OTHER SKIN 12-23-2016 [facility] CHANGES K5903 DRUG 12-17-2016 [facility] INDUCED [facility] CONSTIPATIO INC N [id number] ADVERSE 12-17-2016 [facility] EFFECT [facility] OTHER INC OPIOIDS INITIAL ENCOUNTER K910 VOMITING 12-12-2016 [facility] FOLLOWING [facility] GASTROINTES INC TINAL SURGERY R600 LOCALIZED 12-12-2016 [facility]DEMA [facility] R609 EDEMA 12-12-2016 [facility] UNSPECIFIED [facility] H[facility] INC C21762 OTHER 12-12-2016 [place] SPECIFIED MEDICAL POSTPROCEDU IMAGING ASS [facility] STATES E6601 MORBID 12-11-2016 [facility] SEVERE HEALTH OBESITY DUE MONALISA TO EXCESS CALORIES N393 STRESS 12-11-2016 [facility] INCONTINENC HEALTH E FEMALE MONALISA MALE Z903 ACQUIRED 12-11-2016 [facility] ABSENCE OF HEALTH STOMACH MONAL[place] L52513 ENCOUNTER 12-05-2016 [facility] FOR OTHER HEALTH PREPROCEDUR MEDICAL AL GROUP EXAMINATION K210 GASTRO-ESOP 11-22-2016 [facility] HAGEAL PHYSICIANS, REFLUX PLLC DISEASE W/ ESOPHAGITIS K625 HEMORRHAGE 11-19-2016 [facility] OF ANUS AND VALLEY RECTUM INTERNAL MED M546 PAIN IN 11-08-2016 [facility] THORACIC PHYSICIANS, SPINE PLLC F49858 PAIN IN 10-14-2016 [place] UNSPECIFIED MEDICAL HIP IMAGING ASS M533 SACROCOCCYG 10-14-2016 [place] EAL MEDICAL DISORDERS IMAGING ASS NEC [id number] CONTUSION 10-14-2016 [facility] LOWER BACK PHYSICIANS, & PELVIS PLLC INITIAL ENCOUNTER [id number] UNSPECIFIED 10-14-2016 [place] INJURY MEDICAL LOWER BACK IMAGING ASS INITIAL ENCOUNTER [id number] UNSPECIFIED 10-14-2016 [place] INJURY OF MEDICAL PELVIS IMAGING ASS INITIAL ENCOUNTER H3581 RETINAL 10-11-2016 [facility] ANG EDEMA R040 EPISTAXIS 10-10-2016 [facility] [place] INTERNAL MED E6609 OTHER 10-08-2016 [facility] OBESITY DUE BARIATRIC TO EXCESS SURGICAL CALORIES R109 UNSPECIFIED 10-08-2016 [facility] ABDOMINAL BARIATRIC PAIN SURGICAL J3489 OTHER 10-06-2016 [facility] SPECIFIED PHYSICIANS, DISORDERS PLLC NOSE AND NASAL SINUSES R05 COUGH 10-06-2016 [place] [facility] R0981 NASAL 10-06-2016 [place] CONGESTION MEDICAL IMAGING ASS A6004 HERPESVIRAL 09-27-2016 [facility] PHYSICIANS VULVOVAGINI GROUP TIS N760 ACUTE 09-27-2016 [facility] VAGINITIS PHYSICIANS GROUP [id number] CONCUSSION 09-21-2016 [place] WITHOUT LOC [facility] INITIAL INC ENCOUNTER G1994HN UNSPECIFIED 09-21-2016 [place] INJURY OF MEDICAL HEAD IMAGING ASS INITIAL ENCOUNTER H6903 PATULOUS 09-19-2016 [facility] JARON EUSTACHIAN TUBE BILATERAL J55394 UNSPECIFIED 09-18-2016 [facility] PHYSICIANS OBSTRUCTION GROUP EUSTACHIAN TUBE BILAT R590 LOCALIZED 09-04-2016 [facility] P Z6834 BODY MASS 09-04-2016 [facility] INDEX BMI HEALTH 34.0-34.9 MEDICAL ADULT GROUP K5909 OTHER 09-03-2016 [facility] GROUND N FAMILY CLINI R112 NAUSEA WITH 09-03-2016 [facility] VOMITING GROUND UNSPECIFIED FAMILY CLINI R748 ABNORMAL 09-03-2016 [facility] LEVELS OF GROUND OTHER SERUM FAMILY ENZYMES CLINI Z111 ENCOUNTER 09-02-2016 [facility] SCREENING [facility] FOR [facility] DEPT RESPIRATORY JAZZ TUBERCULOSI S M549 DORSALGIA 09-01-2016 [facility] UNSPECIFIED PHYSICIANS, PLL R197 DIARRHEA 09-01-2016 [facility] UNSPECIFIED PHYSICIANS, PLL [id number] ADVERSE 09-01-2016 [facility] P SRI INITIAL ENCOUNTER X44524 UNS PLACE 09-01-[address] [facility] P PL[address] OF OCCUR EXT R195 OTHER FECAL 08-30-2016 [facility] ABNORMALITI INC ES R5381 OTHER 08-29-2016 [facility] MALAISE PHYSICIANS GROUP R9431 ABNORMAL 08-29-2016 [facility] ELECTROCARD PHYSICIANS IOGRAM GROUP U23339 LYMPHOCYTOP 08-21-2016 [facility] ENIA [facility] INC J3089 OTHER 08-21-2016 [facility] RHINITIS [place] J4520 MILD 08-21-2016 [facility] INTERMITTEN PARTNERS OF T ASTHMA [place] UNCOMPLICAT ED R599WNA OTHER 08-21-2016 [facility] ADVERSE PARTNERS OF FOOD [place] REACTIONS NEC SUBSEQUENT ENC M791 MYALGIA 08-17-2016 [facility] PHYSICIANS, [facility] M898X9 OTHER 08-12-2016 [place] SPECIFIED MEDICAL DISORDERS IMAGING ASS BONE UNSPECIFIED SITE R599 ENLARGED 08-12-2016 [facility] LYMPH NODES [facility] INC UNSPECIFIED R1314 DYSPHAGIA 08-10-2016 [facility] PHARYNGOESO PHYSICIANS, PHAGEAL [facility] PHASE R5382 CHRONIC 08-07-2016 [facility] FATIGUE [facility] UNSPECIFIED INC J301 ALLERGIC 08-05-2016 [facility] RHINITIS PARTNERS OF DUE TO [place] POLLEN J3081 ALLERG 08-05-2016 [facility] RHINITIS PARTNERS OF D/T ANIMAL [place] CAT DOG HAIR & DANDER R591 GENERALIZED 08-05-2016 [facility] P I208 OTHER FORMS 08-02-2016 [facility] OF ANGINA [facility] PECTORIS [facility] P A84915 PAIN IN 08-02-2016 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 GROUP WITHOUT DIARRHEA R102 PELVIC AND 07-24-2016 [facility] PERINEAL PHYSICIANS PAIN GROUP N831 CORPUS 07-22-2016 [facility] LUTEUM CYST PHYSICIANS GROUP N920 EXCESS & 07-22-2016 [facility] FREQUENT PHYSICIANS MENSTRUATIO GROUP N W/REGULAR CYCLE [id number] STRAIN UNS 07-22-2016 [facility] MUSCLE FASC PHYSICIANS, TEND THIGH PLLC RT INITIAL ENC Z7251 HIGH RISK 07-22-2016 [facility] R12 HEARTBURN 07-18-2016 [facility] H[facility] OTHER 07-17-2016 [facility] SPECIFIED PHYSICIANS DISORDERS GROUP OF EAR UNSPECIFIED EAR J302 OTHER 07-17-2016 [facility] SEASONAL PHYSICIANS ALLERGIC GROUP RHINITIS [id number] LACERATION 07-13-2016 [facility] W/O FOREIGN PHYSICIANS, BODY SCALP PLLC INITIAL ENC [id number] SPRAIN 07-13-2016 [facility] UNSPECIFIED PHYSICIANS, SITE LT PLLC KNEE INITIAL ENCNTR R6889 OTHER 07-10-2016 [facility] SYMPTOMS HOSPITA AND SIGNS E780 PURE 07-09-2016 [facility] HYPERCHOLES BARIATRIC TEROLEMIA SURGICAL E876 HYPOKALEMIA 07-09-2016 [facility] P Z1231 ENCOUNTER 07-08-2016 [place] SCREENING MEDICAL MAMMO MALIG IMAGING ASS NEOPLASM BREAST H6990 UNSPECIFIED 07-07-2016 [facility] DISORDER UNS EAR H938X3 OTHER 07-07-2016 [facility] SPECIFIED HEALTH DISORDERS [place] OF EAR BILATERAL M5432 SCIATICA 07-07-2016 [facility] PSC R1010 UPPER 07-05-2016 [facility] UNSPECIFIED R1084 GENERALIZED 06-29-2016 [facility] I880 NONSPECIFIC 06-27-2016 [facility] LYMPHADENIT IS R100 ACUTE 06-27-2016 [facility] R1031 RIGHT LOWER 06-26-2016 [facility] N96903 RIGHT LOWER 06-26-2016 [facility] TENDERNESS N200 CALCULUS OF 06-24-2016 [place] [facility] 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 06-11-2016 [...] EXPS TO NONIONIZING RAD R9439 ABNORMAL 04-08-2016 [facility] RESULT OT [facility] MED[facility] LR FUNCTION GROUP STUDY I340 NONRHEUMATI 04-04-2016 [facility] [...] [facility] RIGHT INTERNAL SHOULDER MED Z113 ENCOUNTER 03-13-2016 [facility] INFECTIONS SEXL MODE TRANSMISSN M778 OTHER 12-04-2015 [facility] IES NOT INTERNAL ELSEWHERE MED CLASSIFIED 73681 UNSPECIFIED 07-11-2015 [facility] 2167 [...] SKIN 7020 ACTINIC 07-11-2015 [facility] KERATOSIS 69520 INFLAMED 07-11-2015 [facility] SEBORRHEIC KERATOSIS V700 ROUTINE 06-27-2015 [email or web address] CARE FACL 58574 MORBID 06-20-2015 [facility] OBESITY BARIATRIC SURGICAL 55072 PAIN IN 06-20-2015 [facility], S[facility] UNSPECIFIED 7823 EDEMA 06-20-2015 [facility] 93205 OTHER 06-20-2015 [facility] DYSPNEA AND [facility] RESPIRATORY ABNORMALITI ES 7871 HEARTBURN 06-20-2015 [facility] 7904 NONSPEC 06-20-2015 [facility] E[facility]ATION [facility] OF LEVELS SURGICAL OF TRANSAMINAS E/LDH V4586 BARIATRIC 06-20-2015 [facility] SURGERY BARIATRIC STATUS SURGICAL V7612 OTHER 06-19-2015 [place] SCREENING MEDICAL MAMMOGRAM IMAGING ASS 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 MED 2689 UNSPECIFIED 06-12-2015 [facility] VITAMIN D [facility] DEFICIENCY INTERNAL MED 5718 OTHER 06-12-2015 [facility] NONALCOHOL[facility] INTERNAL C LIVER MED DISEASE 7905 OTHER 06-12-2015 [facility] ABNORMAL INTERNAL SERUM MED ENZYME LEVELS 58132 UNSPEC 05-09-2015 [facility] DISORDERS PHYSICIANS BURSAE&TEND GROUP ONS SHOULDER REGION 7262 OTHER 05-09-2015 [facility] AFFECTIONS PHYSICIANS OF SHOULDER GROUP REGION NEC 29019 OBESITY, 05-04-2015 [facility] UNSPECIFIED OLOGY AND HEPATOL 3674 PRESBYOPIA 04-28-2015 [place] 20383 CHEST PAIN 04-28-2015 [facility] 23470 ABDOMINAL 04-25-2015 [facility]IN, COMMUNTIY UNSPECIFIED HOSPITA SITE 4019 UNSPECIFIED 04-16-2015 [facility] HYPERTENSIO INC N 5990 URINARY 04-16-2015 [facility], INFECTION NEW [facility] SITE NOT SPECIFIED 7948 NONSPECIFIC 04-16-2015 [facility] RESULTS INC LIVR FUNCTION STUDY 5739 UNSPECIFIED 04-14-2015 [facility] [place] DISORDER RADIOLOGY OF LIVER 7906 OTHER 04-14-2015 [facility] ABNORMAL COMMUNTIY BLOOD HOSPITA CHEMISTRY 5939 UNSPECIFIED 04-06-2015 [place] DISORDER MEDICAL OF KIDNEY IMAGING ASS AND URETER 7891 HEPATOMEGAL 04-06-2015 [facility] Y OLOGY AND HEPATOL V140 PERSONAL 04-05-2015 [place] HISTORY OF [facility] ALLERGY TO HOSPITAL P PENICILLIN 66615 ABDOMINAL 04-03-2015 [facility] PAIN, GENERALIZED 5758 OTHER 04-01-2015 [place] SPECIFIED [facility] DISORDER OF HOSPITAL P GALLBLADDER 40841 OTHER 04-01-2015 [facility] MEDICAL DISORDER OF IMAGING ASS KIDNEY AND URETER 55199 ABDOMINAL 04-01-2015 [place] PAIN RIGHT MEDICAL UPPER IMAGING ASS QUADRANT 95838 ABDOMINAL 04-01-2015 [place] PAIN, [facility] EPIGASTRIC HOSPITAL P 7295 PAIN IN 03-29-2015 [facility] SOFT COMMUNTIY TISSUES OF HOSPITA LIMB V4589 OTHER 03-29-2015 [facility] POSTSURGICA COMMUNTIY L STATUS HOSPITA OTHER 63518 OTHER 03-24-2015 [facility] MALAISE AND COMMUNTIY FATIGUE HOSPITA V6700 FOLLOW-UP 03-21-2015 [facility] [place] EXAMINATION RADIOLOGY FOLLOWING UNSPEC SURGERY 89732 ESOPHAGEAL 03-20-2015 [place] REFLUX ANESTHESIA GROUP PS 6256 FEMALE 03-20-2015 [facility] STRESS COMMUNTIY INCONTINENC HOSPITA E 97506 PAIN IN 03-20-2015 [facility] JOINT, BARIATRIC MULTIPLE SURGICAL SITES 32709 DIASTASIS 03-20-2015 [facility] OF MUSCLE COMMUNTIY HOSPITA 7892 SPLENOMEGAL 03-20-2015 [facility] Y COMMUNTIY HOSPITA V8543 BODY MASS 03-20-2015 [facility] INDEX COMMUNTIY 50.0-59.9 HOSPITA ADULT 2639 UNSPECIFIED 03-14-2015 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 UNSPECIFIED COMMUNTIY HOSPITA HYPERLIPIDE LILIANE 7245 UNSPECIFIED 02-20-2015 [facility] BACKACHE COMMUNTIY HOSPITA V7283 OTHER 02-20-2015 [facility] SPECIFIED COMMUNTIY PRE-OPERATI HOSPITA VE EXAMINATION 2875 UNSPECIFIED 02-15-2015 [facility] PENIA 7932 NONSPC ABN 02-10-2015 [place] [facility] SERV RAD&OTH FOUNDATION EXAM OTH INTRTHOR ORGN V7282 PRE-OPERATI 02-10-2015 [place] [facility] VE SERV RESPIRATORY FOUNDATION EXAMINATION 5930 NEPHROPTOSI 02-09-2015 [facility] P 7802 SYNCOPE AND 02-01-2015 [facility] MEDICAL G 4139 OTHER AND 01-18-2015 [place] UNSPECIFIED [facility] P PECT[place]IS 24590 SHORTNESS 01-18-2015 [facility] 56364 OTHER CHEST 01-18-2015 [facility] P 80299 OSTEOARTHRO 12-30-2014 [facility] NGO S INVLV MX SITES [place]C [place] 31530 PAIN IN 11-09-2014 [place] JOINT, MEDICAL SHOULDER IMAGING ASS REGION V5832 ENCOUNTER 11-09-2014 [facility] P 88971 PILAR CYST 11-02-2014 [facility] 55291 UNSPECIFIED 10-06-2014 [facility] INFE[facility] PHYS IN CCE & UNS SITE 7840 HEADACHE 10-06-2014 [place] [facility] 19480 ATROPHIC 09-16-2014 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 IN ALLERGY Hospital V14.1 V14.1 12-31-2013 [place] HX-ANTIBIOT [facility] V01.6 V01.6 01-11-2013 [place] VENEREAL 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 8460 SPRAIN AND 01-04-2009 [employer] LUMBOSACRAL Surveypal 8472 LUMBAR 01-04-2009 [place] [facility] STRAIN INC 09853 CONTUSION 01-04-2009 [employer] Bloomed 13579 CONTUSION 01-04-2009 [employer]TOCK [employer] Bloomed E8490 PLACE OF 01-04-2009 [place] OCCURRENCE, MEDICAL HOME IMAGING ASSOCIATES E8859 FALL FROM 01-04-2009 [place] OTHER MEDICAL SLIPPING IMAGING TRIPPING OR ASSOCIATES STUMBLING Allergies, Adverse Reactions, Alerts Type Drug Allergy Adverse Reaction to Substance Substance Reaction Severity Penicillin I-RASH Intermediate Sulfonamide Related Unknown Unknown Codeine I-RASH Intermediate Penicillin V Unknown Unknown Trimethoprim I-RASH Intermediate Sulfamethoxazole I-RASH Intermediate Clinical Alert Notifications Alert Asthma: no influenza vaccine in the last 365 days Member has >/= 10 ED visits within the past 365 days Medications Na ND Rx Da Fi Fi Am Da Di Ph RX Ph St me C No te ll ll ou ys ag ar # ys at rm s nt no ma ic us Or Da si cy ia de te s n re d GA 45 07 07 90 30 00 CL Ac BA 96 -0 -2 .0 00 IN ti PE 30 3- 8- 00 00 IC ve NT 55 20 20 42 IN 55 17 17 89 PH 0 93 AR 10 MA 0 CY MG CA PS UL E HY 64 06 07 30 [address] 98 -2 -2 .0 00 IN ti OX 00 6- 1- 00 00 IC ve YZ 16 20 20 42 IN 90 17 17 97 PH E 5 29 AR PA MA M CY 25 MG CA P ON 67 06 07 15 3 00 CL Ac DA 87 -1 -1 .0 00 IN ti NS 70 5- 4- 00 00 IC ve ET 16 20 20 42 RO 93 17 17 97 PH N 0 28 AR HC MA L CY 4 MG TA BL ET RI 13 06 07 30 30 00 CL Ac SP 66 -1 -1 .0 00 IN ti ER 80 5- 4- 00 00 IC ve ID 03 20 20 43 ON 66 17 17 39 PH E 0 67 AR 0. MA 5 CY MG TA BL ET IS 62 06 07 30 30 00 CL Ac OS 17 -1 -1 .0 00 IN ti OR 50 5- 4- 00 00 IC ve BI 12 20 20 42 DE 83 17 17 58 PH 7 88 AR MN MA CY ER 30 MG TA BL ET VE 68 06 07 30 30 00 CL Ac NL 38 -1 -1 .0 00 IN ti AF 20 5- 4- 00 00 IC ve AX 03 20 20 42 IN 40 17 17 89 PH E 6 94 AR HC MA L CY ER 37 .5 MG CA P BU 00 06 07 90 30 00 CL Ac SP 37 -1 -1 .0 00 IN ti IR 81 5- 4- 00 00 IC ve ON 15 20 20 42 E 00 17 17 82 PH HC 1 15 AR L MA 10 CY MG TA BL ET VE 00 06 07 18 16 00 CL Ac NT 17 -1 -1 .0 00 IN ti OL 30 5- 4- 00 00 IC ve IN 68 20 20 41 22 17 17 47 PH HF 0 47 AR A MA 90 CY MC G IN CARTY LE R MO 16 06 07 30 30 00 CL Ac NT 72 -0 -0 .0 00 IN ti EL 90 8- 7- 00 00 IC ve UK 11 20 20 41 91 17 17 09 PH T 7 31 AR SO MA D CY 10 MG TA BL ET LO 68 06 07 30 30 00 CL Ac VA 18 -0 -0 .[address] 00 8- 7- 00 00 IC ve AT 46 20 20 43 IN 80 17 17 34 PH 1 26 AR 20 MA CY MG TA BL ET 64 06 07 4. 28 00 CL Ac T 38 -0 -0 00 00 IN ti D2 00 8- 7- 0 00 IC ve 73 20 20 42 1. 70 17 17 35 PH 25 6 24 AR MA MG CY (5 0, 00 0 UN IT ) LO 45 06 07 30 30 00 CL Ac RA 80 -0 -0 .0 00 IN ti TA 20 8- 7- 00 00 IC ve DI 65 20 20 42 NE 08 17 17 35 PH 7 22 AR 10 MA CY MG TA BL ET FL 50 06 07 16 30 00 CL Ac UT 38 -0 -0 .0 00 IN ti IC 30 8- 7- 00 00 IC ve 70 20 20 42 ON 01 17 17 79 PH E 6 94 AR ME MA OP CY 50 MC G SP RA Y OX 62 06 07 30 30 00 CL Ac YB 17 -0 -0 .0 00 IN ti UT 50 8- 7- 00 00 IC ve YN 27 20 20 43 IN 13 17 17 09 PH 7 28 AR CL MA CY ER 10 MG TA BL ET ME 59 06 07 [address] 76 -1 -0 .0 00 IN ti OX 23 4- 7- 00 00 IC ve YP 74 20 20 42 RO 20 17 17 94 PH GE [address] MA ER CY ON E 10 MG TA B LI 00 06 07 30 30 00 CL Ac NZ 45 -1 -0 .0 00 IN ti ES 61 4- 7- 00 00 IC ve S 20 20 20 42 14 13 17 17 47 PH 5 0 82 AR MC MA G CY CA PS UL E OM 60 06 07 60 30 00 CL Ac EP 50 -1 -0 .0 00 IN ti RA 50 4- 7- 00 00 IC ve ZO 14 20 20 42 LE 60 17 17 89 PH [address] MA CY 40 MG CA PS UL E RA 00 06 07 60 30 00 CL Ac NI 78 -1 -0 .0 00 IN ti TI 11 4- 7- 00 00 IC ve DI 88 20 20 42 NE 31 17 17 65 PH 0 91 AR 15 MA 0 CY MG TA BL ET AZ 51 06 07 30 30 00 CL Ac EL 52 -1 -0 .0 00 IN ti 50 4- 7- 00 00 IC ve TI 29 20 20 43 NE 40 17 17 38 PH 3 80 AR 0. MA 1% CY (1 37 MC G) SP RY AZ 50 06 07 6. 5 00 RI Ac IT 11 -1 -0 00 00 TE ti HR 10 2- 7- 0 01 ve OM 78 20 20 18 AI YC 76 17 17 75 D IN 6 71 PH AR 25 MA 0 CY MG #3 TA 93 BL 8 ET ME 00 06 07 21 6 00 RI Ac TH 78 -1 -0 .0 00 TE ti YL 15 2- 7- 00 01 ve ME 02 20 20 18 AI ED 20 17 17 75 D NI 7 72 PH SO AR LO MA NE CY 4 #3 MG 93 8 DO SE PK IS 62 05 06 30 30 00 CL Ac OS 17 -1 -2 .0 00 IN ti OR 50 8- 3- 00 00 IC ve BI 12 20 20 42 DE 83 17 17 58 PH 7 88 AR MN MA CY ER 30 MG TA BL ET RA 00 05 06 60 30 00 CL Ac NI 78 -1 -2 .0 00 IN ti TI 11 8- 3- 00 00 IC ve DI 88 20 20 42 NE 31 17 17 65 PH 0 91 AR 15 MA 0 CY MG TA BL ET LI 00 05 06 30 30 00 CL Ac NZ 45 -1 -2 .0 00 IN ti ES 61 8- 3- 00 00 IC ve S 20 20 20 42 14 13 17 17 47 PH 5 0 82 AR MC MA G CY CA PS UL E HY 00 05 06 30 [address] 18 -3 -2 .0 00 IN ti OX 50 1- 3- 00 00 IC ve YZ 67 20 20 42 IN 40 17 17 97 PH E 1 29 AR PA MA M CY 25 MG CA P GA 45 05 06 90 30 00 CL Ac BA 96 -3 -2 .0 00 IN ti PE 30 1- 3- 00 00 IC ve NT 55 20 20 42 IN 55 17 17 89 PH 0 93 AR 10 MA 0 CY MG CA PS UL E CY 00 05 06 28 14 00 CL Ac CL 59 -3 -2 .0 00 IN ti OB 13 1- 3- 00 00 IC ve EN 25 20 20 43 ZA 60 17 17 25 PH ME 1 00 AR IN MA E CY 5 MG TA BL ET ME 59 05 06 10 [address] 76 -1 -2 .0 00 IN ti OX 23 8- 3- 00 00 IC ve YP 74 20 20 42 RO 20 17 17 94 PH GE [address] MA ER CY ON E 10 MG TA B OM 60 05 06 60 30 00 CL Ac EP 50 -1 -2 .0 00 IN ti RA 50 8- 3- 00 00 IC ve ZO 14 20 20 42 LE 60 17 17 89 PH [address] MA CY 40 MG CA PS UL E OX 62 05 06 30 30 00 CL Ac YB 17 -1 -0 .0 00 IN ti UT 50 2- 9- 00 00 IC ve YN 27 20 20 43 IN 13 17 17 09 PH 7 28 AR CL MA CY ER 10 MG TA BL ET VE 68 05 06 30 30 00 CL Ac NL 38 -1 -0 .0 00 IN ti AF 20 5- 9- 00 00 IC ve AX 03 20 20 42 IN 40 17 17 89 PH E 6 94 AR HC MA L CY ER 37 .5 MG CA P LO 61 05 06 30 30 00 RI Ac VA 44 -1 -0 .[address] 20 1- 9- 00 01 ve AT 14 20 20 18 AI IN 20 17 17 36 D 1 68 PH 20 AR MA MG CY TA #3 BL 93 ET 8 AM 66 05 06 20 10 00 RI Ac OX 68 -1 -0 .0 00 TE ti -C 51 1- 9- 01 ve LA 00 20 20 18 AI V 10 17 17 35 D 87 0 20 PH 5- AR 12 MA 5 CY MG #3 TA 93 BL 8 ET RI 13 05 06 30 30 00 CL Ac SP 66 -1 -0 .0 00 IN ti ER 80 1- 9- 00 00 IC ve ID 03 20 20 42 ON 66 17 17 35 PH E 0 23 AR 0. MA 5 CY MG TA BL ET MO 27 05 06 30 30 00 CL Ac NT 24 -1 -0 .0 00 IN ti EL 10 1- 9- 00 IC ve UK 01 20 20 41 80 17 17 09 PH T 9 31 AR SO MA D CY 10 MG TA BL ET 64 05 06 4. 28 00 CL Ac T 38 -1 -0 00 00 IN ti D2 00 1- 9- 0 00 IC ve 73 20 20 42 1. 70 17 17 35 PH 25 6 24 AR MA MG CY (5 0, 00 0 UN IT ) LO 45 05 06 30 30 00 CL Ac RA 80 -1 -0 .0 00 IN ti TA 20 1- 9- 00 00 IC ve DI 65 20 20 42 NE 08 17 17 35 PH 7 22 AR 10 MA CY MG TA BL ET FL 50 05 06 16 30 00 CL Ac UT 38 -1 -0 .0 00 IN ti IC 30 1- 9- 00 00 IC ve 70 20 20 42 ON 01 17 17 79 PH E 6 94 AR ME MA OP CY 50 MC G SP RA Y BU 00 05 06 90 30 00 CL Ac SP 37 -1 -0 .0 00 IN ti IR 81 1- 9- 00 00 IC ve ON 15 20 20 42 E 00 17 17 82 PH HC 1 15 AR L MA 10 CY MG TA BL ET ON 67 05 05 15 3 00 CL Ac DA 87 -0 -2 .0 00 IN ti NS 70 1- 6- 00 00 IC ve ET 16 20 20 42 RO 93 17 17 97 PH N 0 28 AR HC MA L CY 4 MG TA BL ET HY 00 05 05 30 [address] 18 -0 -2 .0 00 IN ti OX 50 1- 6- 00 00 IC ve YZ 67 20 20 42 IN 40 17 17 97 PH E 1 29 AR PA MA M CY 25 MG CA P OM 60 04 05 60 30 00 CL Ac EP 50 -2 -1 .0 00 IN ti RA 50 4- 9- 00 IC ve ZO 14 20 20 42 LE 60 17 17 89 PH [address] MA CY 40 MG CA PS UL E ME 59 04 05 10 [address] 76 -2 -1 .0 00 IN ti OX 23 6- 9- 00 00 IC ve YP 74 20 20 42 RO 20 17 17 94 PH GE [address] MA ER CY ON E 10 MG TA B RA 00 04 05 60 30 00 CL Ac NI 78 -2 -1 .0 00 IN ti TI 11 3- 9- 00 00 IC ve DI 88 20 20 42 NE 31 17 17 65 PH 0 91 AR 15 MA 0 CY MG TA BL ET IS 62 04 05 30 30 00 CL Ac OS 17 -2 -1 .0 00 IN ti OR 50 3- 9- 00 00 IC ve BI 12 20 20 42 DE 83 17 17 58 PH 7 88 AR MN MA CY ER 30 MG TA BL ET LI 00 04 05 30 30 00 CL Ac NZ 45 -2 -1 .0 00 IN ti ES 61 3- 9- 00 00 IC ve S 20 20 20 42 14 13 17 17 47 PH 5 0 82 AR MC MA G CY CA PS UL E FL 50 04 05 16 30 00 CL Ac UT 38 -1 -1 .0 00 IN ti IC 30 3- 2- 00 00 IC ve 70 20 20 42 ON 01 17 17 79 PH E 6 94 AR ME MA OP CY 50 MC G SP RA Y PH 42 04 05 6. 2 00 CL Ac EN 19 -1 -1 00 00 IN ti AZ 20 9- 2- 0 00 IC ve OP 80 20 20 42 YR 10 17 17 86 PH ID 1 72 AR IN MA E CY 10 0 MG TA B MO 29 04 05 30 30 00 CL Ac NT 30 -1 -1 .0 00 IN ti EL 00 7- 2- 00 00 IC ve UK 22 20 20 41 01 17 17 09 PH T 0 31 AR SO MA D CY 10 MG TA BL ET LO 45 04 05 30 30 00 CL Ac RA 80 -1 -1 .0 00 IN ti TA 20 7- 2- 00 00 IC ve DI 65 20 20 42 NE 08 17 17 35 PH 7 22 AR 10 MA CY MG TA BL ET RI 13 04 05 30 30 00 CL Ac SP 66 -1 -1 .0 00 IN ti ER 80 7- 2- 00 00 IC ve ID 03 20 20 42 ON 66 17 17 35 PH E 0 23 AR 0. MA 5 CY MG TA BL ET VE 68 04 05 30 30 00 CL Ac NL 38 -1 -1 .0 00 IN ti AF 20 7- 2- 00 00 IC ve AX 03 20 20 42 IN 40 17 17 32 PH E 6 78 AR HC MA L CY ER 37 .5 MG CA P 64 04 05 4. 28 00 CL Ac T 38 -1 -1 00 00 IN ti D2 00 7- 2- 0 00 IC ve 73 20 20 42 1. 70 17 17 35 PH 25 6 24 AR MA MG CY (5 0, 00 0 UN IT ) BU 00 04 05 90 30 00 CL Ac SP 37 -1 -1 .0 00 IN ti IR 81 7- 2- 00 00 IC ve ON 15 20 20 42 E 00 17 17 82 PH HC 1 15 AR L MA 10 CY MG TA BL ET CY 00 04 05 28 14 00 CL Ac CL 59 -1 -1 .0 00 IN ti OB 13 7- 2- 00 00 IC ve EN 25 20 20 42 ZA 60 17 17 82 PH ME 1 16 AR IN MA E CY 5 MG TA BL ET GA 45 04 05 90 30 00 CL Ac BA 96 -1 -1 .0 00 IN ti PE 30 9- 2- 00 00 IC ve NT 55 20 20 42 IN 55 17 17 42 PH 0 60 AR 10 MA 0 CY MG CA PS UL E CE 69 04 05 20 10 00 CL Ac PH 54 -1 -0 .0 00 IN ti AL 30 0- 5- 00 00 IC ve EX 10 20 20 42 IN 25 17 17 76 PH 0 79 AR 50 MA 0 CY MG CA PS UL E LI 00 03 04 30 30 00 [...] .0 00 IN ti RA 50 9- - 00 00 IC ve ZO 13 20 [...] MA 0 CY MG TA BL ET MO 29 03 04 30 30 00 [...] 42 ZA 60 17 17 59 PH ME 1 23 AR IN MA E CY 5 MG TA BL ET IS 62 03 04 30 30 00 CL Ac OS 17 -2 -1 .0 00 IN ti OR 50 1- 4- 00 00 IC ve BI 12 20 20 42 DE 83 17 17 58 PH 7 88 AR MN MA CY ER 30 MG TA BL ET LO 45 03 [...] (5 0, 00 0 UN IT ) CL 63 03 03 21 7 00 [...] 1 70 PH CE AR TA MA [place] CY NO PH #3 93 7. 8 5- 32 5 GA 45 03 03 90 30 00 [...] L CY 4 MG TA BL ET ME 65 03 03 20 5 00 CL Ac OM 16 -0 -3 .0 00 IN ti ET 20 8- 1- 00 00 IC ve CARTY 74 20 20 42 ZI 51 17 17 45 PH NE 0 47 AR MA 12 CY .5 MG TA BL ET OS 47 03 03 10 10 00 CL Ac EL 78 -0 -3 .0 00 IN ti TA 10 7- 1- 00 00 IC ve [place] 47 20 20 42 01 17 17 44 PH R 3 26 AR PH MA OS CY 75 MG CA PS UL E VE 68 02 03 30 30 00 CL Ac NL 38 -2 -2 .0 00 IN ti AF 20 3- 4- 00 00 IC ve AX 03 20 20 42 IN 40 17 17 32 PH E 6 78 AR HC MA L CY ER 37 .5 MG CA P LO 45 02 03 30 30 00 CL Ac RA 80 -2 -2 .0 00 IN ti TA 20 4- 4- 00 00 IC ve DI 65 20 20 41 NE 08 17 17 74 PH 7 07 AR 10 MA CY MG TA BL ET RI 13 02 03 30 30 00 CL Ac SP 66 -2 -2 .0 00 IN ti ER 80 4- 4- 00 00 IC ve ID 03 20 20 42 ON 66 17 17 32 PH E 0 44 AR 0. MA 5 CY MG TA BL ET 64 02 03 4. 28 00 CL [...] 17 53 PH E 6 48 AR ME MA OP CY 50 MC G SP RA Y RA 00 02 03 60 30 00 [...] CY 40 MG CA PS UL E TI 60 03 [...] MA MG CY CA PS UL E CY 00 02 03 28 14 00 CL Ac CL 59 -2 -1 .0 00 IN ti OB 13 1- 7- 00 00 IC ve EN 25 20 20 42 ZA 60 17 17 30 PH ME 1 05 AR IN MA E CY [...] 0. MA 8% CY CR EA M AZ 50 02 03 6. 5 00 RI Ac IT 11 -1 -1 00 00 TE ti HR 10 2- 0- 0 01 ve OM 78 20 20 17 AI YC 76 17 17 07 D IN 6 88 PH AR 25 MA 0 CY MG #3 TA 93 BL 8 ET ME 59 02 03 10 5 00 RI Ac ED 74 -1 -1 .0 00 TE ti NI 60 2- 0- 00 01 ve SO 17 20 20 17 AI NE 50 17 17 07 D 6 89 PH 20 AR MA MG CY TA #3 BL 93 ET 8 VE 68 02 03 14 14 00 [...] CY % SO ROSS TI ON OM 60 01 02 30 30 00 CL Ac EP 50 -2 -2 .0 00 IN ti RA 50 0- 4- 00 00 IC ve ZO 14 20 20 41 LE 60 17 17 68 PH [address] MA CY 40 MG CA PS UL E 64 01 02 4. 28 00 CL Ac T 38 -2 -2 00 00 IN ti D2 00 5- 4- 0 00 IC ve 73 20 20 41 1. 70 17 17 47 PH 25 6 11 AR MA MG CY (5 0, 00 0 UN IT ) FL 00 01 02 16 30 00 CL Ac UT 05 -2 -2 .0 00 IN ti IC 43 0- 4- 00 00 IC ve 27 20 20 41 ON 09 17 17 53 PH E 9 48 AR ME MA OP CY 50 MC G SP RA Y CY 00 02 02 14 7 00 CL Ac CL 59 -0 -2 .0 00 IN ti OB 15 1- 4- 00 00 IC ve EN 65 20 20 42 ZA 81 17 17 08 PH ME 0 66 AR IN MA E CY [...] MA 5 CY MG TA BL ET LI 00 01 [...] D CY 10 MG TA BL ET HY 00 01 02 [address] 40 -1 -[address] ti OC 60 8- 7- 00 00 SI ve OD 12 20 20 47 DE ON 40 17 17 29 -A 5 25 PH CE AR TA MA [place] CY NO PH OF CY 7. NT [...] MA 75 CY MG TA BL ET OM 60 12 01 [...] D CY 10 MG TA BL ET PO 51 12 01 25 15 00 CL Ac LY 99 -2 -2 5. 00 IN ti ET 10 7- 7- 00 00 IC ve HY 45 20 20 0 41 LE 75 16 17 74 PH NE 8 22 AR MA GL CY YC OL 33 50 PO WD 51 12 01 4. 28 00 CL Ac T 99 -2 -2 00 00 IN ti D2 10 7- 7- 0 00 IC ve 60 20 20 41 1. 40 16 17 47 PH 25 1 11 AR MA MG CY (5 0, 00 0 UN IT ) BU 00 12 01 90 30 00 [...] 12 01 20 10 00 CL Ac ME 46 -2 -2 .0 00 IN ti OX 20 7- 7- 00 00 IC ve EN 19 20 20 41 00 16 17 74 PH 50 5 01 AR 0 MA MG CY TA BL ET NA 68 12 01 14 7 00 CL Ac ME 46 -1 -2 .0 00 IN ti [...] 17 53 PH E 9 48 AR ME MA OP CY 50 MC G SP RA Y BU 00 02 0 No TA 60 -0 LB 32 7- Lo -A 54 20 ng CE 42 14 er TA 1 [place] Ac N- ti CA ve FF 50 [...] 20 20 ZA 70 09 09 PH KY ME 6 AR CH IN MA AE E CY L 10 S MG TA BL ET ME 59 02 02 00 21 6 CL 18 GA Ac TH 74 -1 -2 .0 IN 75 IN ti YL 60 2- 6- 00 IC 10 EY ve ME 00 20 20 ED 10 09 09 PH [place] NI 3 AR CH SO MA AE LO CY L NE S 4 MG DO SE PK 00 12 02 00 10 10 WA 70 WI Ac 37 -1 -1 .0 L- 05 CK ti 81 3- 2- 00 MA 70 ER ve 06 20 20 RT 6 60 08 09 JE 1 PH FF AR RE MA Y CY #5 91 00 12 02 00 12 3 WA 44 WI Ac 40 -1 -1 .0 L- 73 CK ti 60 3- 2- 00 MA 93 ER ve 35 20 20 RT 0 80 08 09 JE 1 PH FF AR RE MA Y CY #5 91 Immunization Name Date Rout CVX Reac Dose Comm Prov Is Faci e tion ent ider Refu lity Give sed n IIV3 02-1 141 WILLI No DHS/ 3-20 [place] CO VACC 09 CO HEAL INE HEAL TH SPLI TH CENT T CENT RAL VIRU ER BANK S 0.5 ACCT ML DOSA GE IM USE Vital Signs 12-05-2016 11:40 Name Value Interpretat Reference Comment ion Range Glucose 88 mg/dL 70-100 Bld-nc 12-31-2013 17:30 Name Value Interpretat Reference Comment [...] Order Detail nces retati t Range on Hct VFr Bld Auto (04-30-2017 11:25) Hct VFr 44.0 % 34.5-44 complet Bld 017 .0 ed Auto 11:25 Hgb A1c Bld (12-05-2016 11:40) Comment: The [place] [employer] recommends maintenance of Hemoglobin A1C at 7.0% or lower. Goals for Hemoglobin A1C reduction may need to be modified if hypoglycemia is a problem. Hgb A1c 4.90 % 4.80-5. complet MFr 017 60 ed Bld 11:40 CBC (hemogram) Bld Auto (12-05-2016 11:40) Platele 172 150-450 complet t # Bld 017 10*3/mm ed Auto 11:40 3 PMV Bld 8.5 fL 6.0-12. complet Auto 017 0 ed 11:40 RDW RBC 39.2 fl 37.0-54 complet Auto 017 .0 ed 11:40 RDW RBC 12.2 % 11.3-14 complet 017 .5 ed Auto-Rt 11:40 o MCHC 34.1 32.0-36 complet RBC 017 g/dL .0 ed Auto-mC 11:40 nc MCH RBC 30.5 pg 27.0-31 complet Qn 017 .0 ed Auto 11:40 MCV RBC 89.3 fL 80.0-99 complet Auto 017 .0 ed 11:40 Hct VFr 41.6 % 34.5-44 complet Bld 017 .0 ed Auto 11:40 Hgb 14.2 11.5-15 complet Bld-mCn 017 g/dL .5 ed c 11:40 RBC # 12-05- 4.66 3.89-5. complet Bld 017 10*6/mm 14 ed Auto 11:40 3 WBC 4.70 3.50-10 complet nRBC 017 10*3/mm .80 ed cor # 11:40 3 Bld B-HCG Ur Ql (01-11-2013 17:40) B-HCG 18-2 NEGATIV NEG complet Ur Ql 013 E ed 17:40 URINALYSIS/COMPLETE (01-11-2013 17:40) URINE -18-2 YELLOW YELLOW complet COLOR 013 ed 17:40 URINE 18-2 Sl CLEAR complet APPEARA 013 Cloudy ed NCE 17:40 URINE 18-2 NEGATIV NEG complet GLUCOSE 013 E ed [...] 5.0-8.5 complet PH 013 ed 17:40 URINE 18-2 NEGATIV NEG complet PROTEIN 013 E mg/dL ed - 17:40 DIPSTIC K URINE 18-2 0.2 NEG complet UROBILI 013 E.U./dL ed NOGEN - 17:40 DIPSTIC K URINE 18-2 NEGATIV NEG complet NITRATE 013 E ed - 17:40 DIPSTIC K URINE -18-2 TRACE NEG complet LEUK 013 ed ESTERAS 17:40 E URINE -18-2 3-5 0 complet RBC 013 rbc/hpf ed 17:40 URINE -18-2 3-5 O complet WBC 013 wbc/hpf ed 17:40 URINE -18-2 10-20 0-5 complet SQUAMOU 013 #/hpf ed S CELLS 17:40 URINE -18-2 1+ O complet BACTERI 013 ed A 17:40 Procedures Procedure DOS Code Location Performer Comment EGD 86151 MU-ISM DANIEL TRANSORAL 7 [facility] BIOPSY MEDICAL SINGLE/MU GROUP LTIPLE ECG 95252 [facility] ROUTINE 7 HEART ECG SPECIALIS W/LEAST TS, 12 LDS I&R ONLY ECG 71623 [place] CHAEVZ JR ROUTINE 7 [facility] W/LEAST P 12 LDS I&R ONLY COMPREHEN 53420 [place] SIVE 7 [facility] [place] [address] [place] TROPONIN 7 [facility] QUANTITAT INC INC SABIHA ECG 03565 [place] ROUTINE 7 [facility] ECG INC INC W/LEAST 12 LDS TRCG ONLY W/O I&R ECG 97866 MU-ISM MU-ISM ROUTINE 7 [facility] ECG [facility] W/LEAST 12 LDS TRCG ONLY W/O [place] [address] [facility] 7 [facility] ER JR PATHOLOGY GROSS&BRYCE ROSCOPIC EXAM COLPOSCOP 11501 [facility] KAM Mercedes CERVIX 7 PHYSICIAN BX CERVIX S GROUP & [place] [address] MU-ISM MU-ISM TRACT 7 [facility] UPPER [facility] W/WO DELAYED IMAGES W/[place] [address] [place] HEAD/BRAI 7 [facility] N W/O INC INC CONTRAST MATERIAL UNCLASSIF J3490 [place] IED DRUGS 7 [facility] INC INC COMPREHEN 58606 [place] SIVE 7 [facility] METABOLIC INC INC PANEL GONADOTRO 37137 [place] PIN 7 [facility] FOLLICLE INC INC STIMULATI NG HORMONE GONADOTRO 62257 [place] PIN 7 [facility] LUTEINIZI INC INC NG HORMONE BLOOD 44307 [place] [facility] COUNT 7 [facility] COMPLETE INC INC AUTO&AUTO DIFRNTL WBC LIPID 66892 [place] PANEL 7 [place] [address] [place] GAMMAGLOB 7 [facility] ULIN IGA INC INC IGD IGG IGM EACH URNLS DIP 66448 [place] [facility] STICK/TAB INC INC LET REAGENT AUTO MICROSCOP Y BLOOD 58856 [place] COUNT 7 [facility] COMPLETE INC INC AUTO&AUTO DIFRNTL WBC COMPREHEN 53956 [place] [facility] SIVE 7 [facility] METABOLIC INC INC PANEL UNCLASSIF J3490 [place] IED DRUGS 7 [place] [id number] [place] INFUSION 7 [facility] [facility] THERAPY INC INC PROPHYLAX [place] [address] [facility] [facility] INFUSION 7 [facility] THERAPY/P INC INC ROPHYLAXI S /DX 1ST TO 1 HR UNCLASSIF J3490 [place] [facility] IED DRUGS 7 [facility] INC INC IADNA 06667 P&C TOD ESQUIVEL HUMAN 7 LLC PAPILLOMA VIRUS HIGH-RISK TYPES CYTP 64780 P&C TOD ESQUIVEL CERVICAL/ 7 LLC VAGINAL REQ INTERP PHYSICIAN CYTP C/V 41266 P&C TOD ESQUIVEL AUTO THIN 7 LLC LYR PREPJ SCR MNL RESCR PHYS URNLS DIP 41798 [facility] HUMPHREY 7 PHYSICIAN STICK/TAB S GROUP LET RGNT NON-AUTO W/O MICRSCP ECG 52371 [place] ROUTINE 7 [facility] ECG INC INC W/LEAST 12 LDS TRCG ONLY W/O I&R PROTEIN 10756 [place] [facility] ELECTROPH 7 [facility] ORETIC INC INC FRACTJ&QU ANTJ SERUM COMPREHEN 40953 [place] [facility] SIVE 7 [facility] METABOLIC INC INC PANEL ANTINUCLE 75667 [place] [facility] AR 7 [facility] ANTIBODIE INC INC S SANNA BLOOD 43667 [place] [facility] COUNT 7 [facility] COMPLETE INC INC AUTO&AUTO DIFRNTL WBC URNLS DIP 58926 [place] [facility] 7 [facility] STICK/TAB INC INC LET RGNT AUTO W/O MICROSCOP Y CREATININ 75062 [facility] E BLOOD 7 [facility] INC INC UNCLASSIF J3490 [place] IED DRUGS 7 [facility] [place] [place] [address] [place] [facility] UREA 7 [facility] NITROGEN INC INC QUANTITAT [place] THORAX [address] [place] [address] MEDICAL W/CONTRAS IMAGING T ASS MATERIAL NJX 04743 YVETTE DUFF DX/THER 7 MD RHIANNON, AGT PVRT PSC FACET JT LMBR/SAC 3+ LEVEL NJX 02789 YVETTE DUFF DX/THER 7 MD RHIANNON, AGT PVRT PSC FACET JT LMBR/SAC 1 LEVEL NJX 69275 YVETTE DUFF DX/THER 7 MD RHIANNON, AGT PVRT PSC FACET JT LMBR/SAC 2ND LEVEL ECG 43670 [place] [facility] ROUTINE 7 [facility] ECG INC INC W/LEAST 12 LDS TRCG ONLY W/O I&R ECG 01090 [facility] KIMBERLY ROUTINE 7 PHYSICIAN ECG S GROUP W/LEAST 12 LDS I&R ONLY UNCLASSIF J3490 [place] [facility] IED DRUGS 7 [facility] INC INC APPLICATI 07088 [place] [facility] ON 7 [facility] MODALITY INC INC 1/> AREAS HOT/COLD PACKS APPL 51083 [place] [facility] MODALITY 7 [facility] 1/> AREAS INC INC VASOPNEUM ATIC DEVICES APPL 50436 [place] [facility] MODALITY 7 [facility] 1/> AREAS INC INC ULTRASOUN D EA 15 MIN APPL 89244 [place] [facility] MODALITY 7 [facility] 1/> AREAS INC INC IONTOPHOR ESIS EA 15 MIN THERAPEUT 57562 [place] [facility] IC PX 1/> 7 [facility] AREAS INC INC EACH 15 MIN EXERCISES APPL 45612 [place] [facility] MODALITY 7 [facility] 1/> AREAS INC INC TRACTION MECHANICA L APPL 58302 [place] [facility] MODALITY 7 [facility] 1/> AREAS INC INC ELEC STIMJ UNATTENDE D APPL 04645 [place] [facility] MODALITY 7 [facility] 1/> AREAS INC INC TRACTION MECHANICA L APPL 18401 [place] [facility] MODALITY 7 [facility] 1/> AREAS INC INC ELEC STIMJ UNATTENDE D PHYSICAL 00917 [place] [facility] THERAPY 7 [facility] EVALUATIO INC INC N HIGH COMPLEX 45 MINS APPLICATI 93715 [place] [facility] ON 7 [facility] MODALITY INC INC 1/> AREAS HOT/COLD PACKS THERAPEUT 61291 [place] [facility] IC 7 [facility] INJECTION INC INC IV PUSH EACH NEW DRUG RADEX 16794 [place] [facility] ABDOMEN 7 [facility] COMPL INC INC W/DCBTS&/ ERC VIEWS THER 13293 [place] [facility] PROPH/DX 7 [facility] NJX IV INC INC PUSH SINGLE/1S T SBST/DRUG UNCLASSIF J3490 [place] [facility] IED DRUGS 7 [facility] INC INC ECG 00879 [place] ROUTINE 7 [facility] ECG INC INC W/LEAST 12 LDS TRCG ONLY W/O I&R ECG 85445 [place] ROUTINE 7 [facility] W/LEAST P 12 LDS I&R ONLY CREATINE 72562 [place] [facility] KINASE 7 [facility] [place] [address] [place] [facility] LIPASE 7 [place] [address] [place] [facility] AMYLASE 7 [facility] INC INC COMPREHEN 83140 [place] SIVE 7 [facility] METABOLIC INC INC PANEL BLOOD 78028 [place] [facility] COUNT 7 [facility] COMPLETE INC INC AUTO&[place] [address] [place] [facility] TROPONIN 7 [facility] QUANTITAT INC INC SABIHA CREATINE 02160 [place] KINASE MB 7 [facility] FRACTION INC INC ONLY ECG 51893 [facility] KIMBERLY ROUTINE 7 PHYSICIAN ECG S GROUP W/LEAST 12 LDS I&R ONLY ECG 76445 [place] [facility] ROUTINE 7 [facility] ECG INC INC W/LEAST 12 LDS TRCG ONLY W/O I&R APPL 92013 [place] [facility] MODALITY 7 [facility] 1/> AREAS INC INC ELEC STIMJ UNATTENDE D APPL 12955 [place] [facility] MODALITY 7 [facility] 1/> AREAS INC INC TRACTION MECHANICA L APPLICATI 42228 [place] [facility] ON 7 [facility] MODALITY INC INC 1/> AREAS HOT/COLD PACKS APPLICATI 76922 [place] [facility] ON 7 [facility] MODALITY INC INC 1/> AREAS HOT/COLD PACKS APPL 12433 [place] [facility] MODALITY 7 [facility] 1/> AREAS INC INC TRACTION MECHANICA L APPL 83929 [place] [facility] MODALITY 7 [facility] 1/> AREAS INC INC ELEC STIMJ UNATTENDE D APPL 28912 [place] [facility] MODALITY 7 [facility] 1/> AREAS INC INC ELEC STIMJ UNATTENDE D THERAPEUT 18130 [place] [facility] IC PX 1/> 7 [facility] AREAS INC INC EACH 15 MIN EXERCISES APPLICATI 08046 [place] [facility] ON 7 [facility] MODALITY INC INC 1/> AREAS HOT/COLD PACKS ECG 48095 [facility] KIMBERLY ROUTINE 7 PHYSICIAN ECG S GROUP W/LEAST 12 LDS I&R ONLY XTRNL ECG 91839 [place] [facility] & 48 HR 7 [facility] RECORDING INC INC ECG 15880 [facility] ROUTINE 7 PHYSICIAN ECG S, PLLC W/LEAST 12 LDS I&R ONLY CREATINE 65600 [place] [facility] KINASE MB 7 [facility] [place] [address] [place] [facility] TROPONIN 7 [facility] QUANTITAT INC INC SABIHA BLOOD 46211 [place] COUNT 7 [facility] COMPLETE INC INC AUTO&AUTO DIFRNTL WBC COMPREHEN 20159 [place] SIVE 7 [facility] METABOLIC INC INC PANEL CREATINE 80286 [place] KINASE 7 [facility] TOTAL INC INC AMB A0427 [facility] SERVICE 7 AMBULANCE AMBULANCE ALS SERVICE SERVICE EMERGENCY TRANSPORT LEVEL 1 GROUND A0425 [facility] MILEAGE 7 AMBULANCE AMBULANCE PER SERVICE SERVICE STATUTE MILE MRI 21371 [facility] SPINAL 7 CANAL ORTHOPAED LUMBAR ICS PSC W/O CONTRAST MATERIAL ECG 97169 [place] [facility] ROUTINE 7 [facility] ECG INC INC W/LEAST 12 LDS TRCG ONLY W/O I&R RADIOLOGI 70416 [facility] C EXAM 7 MEDICAL CHEST 2 IMAGING VIEWS ASS FRONTAL&L ATERAL APPLICATI 74157 [place] [facility] ON 7 [facility] MODALITY INC INC 1/> AREAS HOT/COLD PACKS APPL 63383 [place] [facility] MODALITY 7 [facility] 1/> AREAS INC INC TRACTION MECHANICA L THERAPEUT 23174 [place] [facility] IC PX 1/> 7 [facility] AREAS INC INC EACH 15 MIN EXERCISES APPL 45004 [place] MODALITY 7 [facility] 1/> AREAS INC INC ELEC STIMJ UNATTENDE D RADEX 18228 ANGELITO DUARTE SPINE 7 [place] LUMBOSACR ORTHOPAED AL 2/[address] [place] [address] [facility] CERVICAL 7 MEDICAL MEDICAL SPINE W/O IMAG[place] [address] [facility] HEAD/BRAI 7 [facility] N W/O INC INC CONTRAST MATERIAL ECG 39664 [place] [facility] ROUTINE 7 [facility] ECG INC INC W/LEAST 12 LDS TRCG ONLY W/O I&R ECG 63456 [place] BORDENSHELLY ROUTINE 7 [facility] W/LEAST P 12 LDS I&R ONLY 25 31579 [facility] HYDROXY 7 [facility] INCLUDES INC INC FRACTIONS IF PERFORMED CYANOCOBA 19030 [place] [facility] LYUBOV 7 [facility] VITAMIN INC INC B-12 [place] [address] [place] [facility] FOLIC 7 [facility] ACID INC INC SERUM COLLECTIO 91522 [place] [facility] N VENOUS 7 [facility] BLOOD INC INC VENIPUNCT URE THERAPEUT 39004 [place] [facility] IC 7 [facility] PROPHYLAC INC INC TIC/DX INJECTION SUBQ/IM UNCLASSIF J3490 [place] [facility] IED DRUGS 7 [facility] INC INC UNCLASSIF J3490 [place] [facility] IED DRUGS 7 [facility] INC INC URNLS DIP 25780 [place] [facility] 7 [facility] STICK/TAB INC INC [place] [address] MU-ISM MU-ISM TRACT 7 [facility] W/WO DELAYED IMAGES W/KUB DESTRUCTI 54278 LOUISA JASSO ON BENIGN 7 LESIONS UP TO 14 RADEX 35100 [place] [facility] ABDOMEN 1 7 [facility] [place] [address] [place] [facility] INFUSION 7 [facility] THERAPY/P INC INC ROPHYLAXI S /DX 1ST TO 1 HR TX PROC G0238 [place] [facility] IMPRV 7 [facility] RESP INC INC FUNCT NOT G0237 FCE-FCE 15MIN BLOOD 73924 [place] [facility] COUNT 7 [facility] COMPLETE INC INC AUTO&AUTO DIFRNTL WBC COMPREHEN 90714 [place] SIVE 7 [facility] METABOLIC INC INC PANEL RAD EXP G9500 [place] C[facility] INDICES/E 7 MEDICAL XP TM & IMAGING NUMB ASS FLUORO IMAGES DOC RADEX 10564 [place] ESOPHAGUS 7 MEDICAL IMAGING ASS LAPS RPR 90577 MU-ISM GARCIA PARAESPHG 7 [facility] L HRNA MEDICAL INCL GROUP FUNDPLSTY W/O MESH INJECTION J0330 MU-ISM MU-ISM 7 [facility] SUCCINYLC [facility] HOLINE CHLORIDE UP TO 20 MG INJECTION J2405 MU-ISM MU-ISM [address] [place] [address] ONDANSETR [facility] ON HCL PER 1 MG INJECTION J2704 MU-ISM MU-ISM PROPOFOL [address] [place] [address] 10 MG [facility] INJECTION J2710 MU-ISM MU-ISM 7 [facility] NEOSTIGMI [facility] NE METHYLSUL FATE UP TO 0.5 MG INJECTION J3010 MU-ISM MU-ISM FENTANYL 7 [facility] CITRATE [facility] 0.1 MG INJECTION J1100 MU-ISM MU-ISM [address] [place] [address] DEXAMETHO [facility] SONE SODIUM PHOSPHATE 1 MG INJECTION J1170 MU-ISM MU-ISM [address] [place] [address] HYDROMORP [facility] KURTIS UP TO 4 MG ANES 10593 [facility] INTRAPERI 7 [place] TONEAL ANESTHESI UPPER A ABDOMEN W/LAPS NOS INJECTION J1650 MU-ISM MU-ISM 7 [facility] ENOXAPARI [facility] N SODIUM 10 MG ECG 48076 MU-ISM ANNA ROUTINE 7 [facility] ECG MEDICAL W/LEAST GROUP 12 LDS I&R ONLY BLOOD 98255 MU-ISM MU-ISM COUNT 7 [facility] COMPLETE [facility] AUTOMATED GLUCOSE 08196 MU-ISM MU-ISM QUANTITAT 7 [facility] SABIHA BLOOD [facility] XCPT REAGENT STRIP HEMOGLOBI 88410 MU-ISM MU-ISM N 7 [facility] HEALTH GLYCOSYLA [facility] LANEY A1C ECG 45121 MU-ISM MU-ISM ROUTINE 7 [facility] ECG [facility] W/LEAST 12 LDS TRCG ONLY W/O I&R COLLECTIO 71322 MU-ISM MU-ISM N VENOUS 7 [facility] BLOOD [facility] VENIPUNCT URE THERAPEUT 48848 [place] [facility] IC 6 [facility] INJECTION INC INC IV PUSH EACH NEW DRUG RADEX 62216 [facility] ABDOMEN 6 MEDICAL MEDICAL COMPL IMAGING IMAGING W/DCBTS&/ [place] [address] [place] [facility] INFUSION 6 [facility] THERAPY/P INC INC ROPHYLAXI S /DX 1ST TO 1 HR RADIOLOGI 55262 [facility] C EXAM 6 MEDICAL MEDICAL CHEST 2 IMAGING IMAGING VIEWS ASS ASS FRONTAL&L ATERAL ECG 17379 [place] ROUTINE 6 [facility] ECG INC INC W/LEAST 12 LDS TRCG ONLY W/O I&R BLOOD 09735 [place] [facility] COUNT 6 [facility] COMPLETE INC INC AUTO&AUTO DIFRNTL WBC ECG 56624 [place] CHAVEZ JR ROUTINE 6 [facility] W/LEAST P 12 LDS I&R ONLY COMPREHEN 28884 [place] SIVE 6 [facility] [place] [address] [place] [facility] LIPASE 6 [facility] [place] [place] [address] [place] [facility] AMYLASE 6 [facility] INC INC BLOOD 74888 [facility] OCCULT 6 [place] PEROXIDAS INTERNAL E ACTV MED QUAL FECES 1 DETER GLUC BLD 10862 [place] GLUC MNTR 6 [facility] DEV INC [place] [address] [place] HARLEEN HEAD/BRAI 6 MEDICAL N W/O IMAGING CONTRAST ASS MATERIAL THERAPEUT 71057 [place] [facility] IC 6 [facility] PROPHYLAC INC INC TIC/DX INJECTION SUBQ/IM RADEX 55784 SEJ[facility] CERRAT[facility] ALL SACRUM & 6 MEDICAL COCCYX IMAGING MINIMUM 2 ASS VIEWS RADEX 54277 SE[facility] CERR[facility] ALL SPINE 6 MEDICAL LUMBOSACR IMAGING AL ASS MINIMUM 4 VIEWS URINE 41704 [place] [facility] 6 [facility] TEST INC INC VISUAL COLOR CMPRSN METHS RADIOLOGI 87759 SEJAL CERRAT[place] ALL C 6 MEDICAL EXAMINATI IMAGING ON PELVIS ASS 1/2 VIEWS IAADI 52588 [place] [facility] INFLUENZA 6 [facility] B VIRUS INC INC IAADI 87121 [place] INFFLUENZ 6 [facility] A A VIRUS INC INC CUL BACT 04424 [place] XCPT 6 [facility] URINE INC INC BLOOD/STO OL AEROBIC ISOL BLOOD 91843 [place] [facility] COUNT 6 [facility] COMPLETE INC INC AUTO&AUTO DIFRNTL WBC RADIOLOGI 94336 [place] [facility] C EXAM 6 [facility] CHEST 2 INC INC VIEWS FRONTAL&L ATERAL RADEX 64175 [place] SINUSES 6 [facility] PARANASAL INC INC COMPL MINIMUM 3 [place] [address] [place] [facility] STREPTOCO 6 [facility] [place] [address] P&[facility] LABS, PICKLESIM SURG 6 [facility] PATHOLOGY GROSS&BRYCE ROSCOPIC EXAM DECALCIFI 00113 [facility], PICKLESIM CATION 6 [facility] PROCEDURE ANESTHESI 15499 [facility] FEEBACK A NOSE & 6 ANESTH ACCESSORY OF THE SINUSES BLUE NOS ECG 36615 [place] ROUTINE 6 [facility] ECG INC INC W/LEAST 12 LDS TRCG ONLY W/O I&R ECG 01248 [place] ROUTINE 6 [facility] W/LEAST P 12 LDS I&R ONLY BLOOD 91630 [place] COUNT 6 [facility] COMPLETE INC INC AUTO&AUTO DIFRNTL WBC ANTIBODY 94345 [place] [facility] HERPES 6 [facility] SMPLX INC INC TYPE 1 ANTIBODY 30315 [place] VIRUS NOT 6 [facility] INC INC ELSEWHERE SPECIFIFE D COMPREHEN 10973 [place] SIVE 6 [facility] METABOLIC INC INC PANEL COLLECTIO 76085 [place] N VENOUS 6 [facility] [place] [address] [facility] HARLEEN MAXILLOFA 6 MEDICAL ADRIANNA CIAL W/[place] [address] SEJAL BEINEKE HEAD/BRAI 6 MEDICAL N W/[place] [address] SEJAL BUCHANAN CERVICAL 6 MEDICAL SPINE W/O IMAGING CONTRAST ASS MATERIAL URINE 95395 [place] [facility] 6 [facility] TEST INC INC VISUAL COLOR CMPRSN METHS COMPRE 58742 MAEGAN ISSA AUDIOMETR 6 JARON JARON Y THRESHOLD EVAL SP RECOGNIJ TYMPANOME 99326 MAEGAN ISSA TRY 6 JARON JARON DISTORT 69734 MAEGAN VERAON PRODUCT 6 JARON JARON EVOKED OTOACOUST IC EMISNS LIMITD PULMONARY 39847 [place] NOGUEIRA STRESS 6 MEDICAL TESTING SERV SIMPLE FOUNDATIO N GAS 11007 [place] DILUT/WAS 6 MEDICAL MEDICAL HOUT LUNG SERV SERV VOL W/WO FOUNDATIO FOUNDAT[place] DISTRIB N N VENT&[place] [address] [place] NO[place] DIFFUSING 6 MEDICAL CAPACITY SERV FOUNDATIO N ELIG CLIN G8427 STAMPING RODRIGUEZ TRI ATTSTS 6 GROUND DOC M REC FAMILY OBTD CLINI UPD/REV PT MEDS ECG 36277 [place] ROUTINE 6 [facility] W/LEAST P 12 LDS I&R ONLY BLOOD 56613 [place] OCCULT 6 [facility] PEROXIDAS INC INC E ACTV QUAL FECES 1-3 SPEC BLOOD 07030 [place] COUNT 6 [facility] COMPLETE INC INC AUTO&AUTO DIFRNTL WBC COLLECTIO 44996 [place] [facility] N VENOUS 6 [facility] BLOOD INC INC VENIPUNCT URE XTRNL ECG 56616 [place] MAT[facility] 6 [facility] S RHYTHM P W/I&R UP TO 48 HRS GROUND A0425 STACY COTE MILEAGE 6 AMBULANCE PATY PER SERVICE STATUTE MILE AMBULANCE A0429 [facility] SERVICE 6 AMBULANCE PATY BLS SERVICE EMERGENCY TRANSPORT PROF SVCS 90459 ALLERGY ROSENTHAL MAR ALLG 6 PARTNERS IMMNTX X OF [place] W/PRV CO ALLGIC XTRCS NJXS SPMTRY 92049 ALLERGY ROSENTHAL MAR W/VC 6 PARTNERS EXPIRATOR OF [place] Y ABHI CO W/WO MXML VOL VNTJ NITRIC 68711 ALLERGY ROSENTHAL MAR OXIDE 6 [facility] [place] GAS CO DETERMINA TION BLOOD 60653 [place] [facility] COUNT 6 [facility] COMPLETE INC INC AUTO&AUTO DIFRNTL WBC RHEUMATOI 56175 [place] FACTOR 6 [facility] QUANTITAT INC INC SABIHA ECG 67239 [place] ROUTINE 6 [facility] W/LEAST P 12 LDS I&R ONLY ANTINUCLE 67184 [place] AR 6 [facility] ANTIBODIE INC INC S SANNA BLOOD 69452 [place] COUNT 6 [facility] RETICULOC INC INC YTE AUTOMATED SEDIMENTA 72037 [place] TION RATE 6 [facility] RBC INC INC NON-AUTOM ATED SEDIMENTA 59828 [place] [facility] TION RATE 6 [facility] RBC INC INC NON-AUTOM ATED BLOOD 63177 [place] COUNT 6 [facility] RETICULOC INC INC YTE AUTOMATED BASIC 86188 [place] METABOLIC 6 [facility] PANEL INC INC CALCIUM TOTAL BLOOD 38515 [place] COUNT 6 [facility] COMPLETE INC INC AUTO&AUTO DIFRNTL WBC TECHNETIU A9503 [place] Monten[place] TC-99M 6 [facility] MEDRONATE INC INC DX UP TO 30 MCI BONE 83774 [place] C[place] ALL &/JOINT 6 MEDICAL IMAGING IMAGING WHOLE ASS BODY COLLECTIO 91574 [place] [facility] N VENOUS 6 [facility] BLOOD INC INC VENIPUNCT URE RADIOLOGI 62945 [facility] C EXAM 6 MEDICAL MEDICAL CHEST 2 IMAGING IMAGING VIEWS ASS ASS FRONTAL&L ATERAL ANES 70378 [place] BRITTNY LOWER 6 ANESTHESI INTESTINE A GROUP PS ENDOSCOPY DISTAL DUODENUM COLLECTIO 09541 [place] [facility] N VENOUS 6 [facility] [place] [address] [place] [facility] THYROID 6 [facility] STIMULATI INC INC NG HORMONE TSH THYROID 63573 [place] [facility] HORM 6 [facility] UPTK/THYR INC INC OID HORMONE BINDING RATIO GONADOTRO 98074 [place] [facility] PIN 6 [facility] FOLLICLE INC INC STIMULATI NG HORMONE GONADOTRO 74655 [place] [facility] PIN 6 [facility] [place] [address] [place] [facility] THYROXINE 6 [facility] TOTAL INC INC ECG 09895 [place] ROUTINE 6 [facility] W/LEAST P 12 LDS I&R ONLY AMB A0427 [facility] SERVICE 6 AMBULANCE KILO ALS SERVICE EMERGENCY TRANSPORT LEVEL 1 RADIOLOGI 65762 [facility] C 6 MEDICAL MEDICAL EXAMINATI IMAGING IMAGING ON CHEST ASS ASS SINGLE VIEW FRONTAL GROUND A0425 [facility] MILEAGE 6 AMBULANCE KILO PER SERVICE STATUTE MILE PREPJ& 13575 [facility] MAR ALLERGEN 6 [facility] IMMUNOTHE OF TRE [place] 1/AUD[place] [address] [place] [facility] INFUSION 6 [facility] THERAPY INC INC PROPHYLAX IS/DX EA HOUR RADIOLOGI 29301 [facility] [facility] C 6 [facility] EXAMINATI INC INC ON KNEE 3 [place] [address] [facility] [facility] INFUSION 6 [facility] THERAPY/P INC INC ROPHYLAXI S /DX [address] [place] [address] [facility] [facility] HEAD/BRAI 6 [facility] N W/[place] [address] [place] [facility] CERVICAL 6 [facility] SPINE W/O INC INC CONTRAST MATERIAL ECG 11643 [place] [facility] ROUTINE 6 [facility] ECG INC INC W/LEAST 12 LDS TRCG ONLY W/O I&R ECG 20328 [place] [facility] ROUTINE 6 [facility] W/LEAST P 12 LDS I&[place] [address] [place] [facility] TROPONIN 6 [facility] QUANTITAT INC INC SABIHA BLOOD 85110 [place] [facility] COUNT 6 [facility] COMPLETE INC INC AUTO&AUTO DIFRNTL WBC COMPREHEN 54100 [place] [facility] SIVE 6 [facility] METABOLIC INC INC PANEL CREATINE 20674 [place] [facility] KINASE MB 6 [facility] FRACTION INC INC ONLY CREATINE 64155 [place] [facility] KINASE 6 [facility] TOTAL INC INC SPACR A4627 [facility] KRASNOPOL BAG/RESRV 6 [facility]WO INC MASK W/METRD DOSE INHAL SPMTRY 34255 [facility] MAR W/VC 6 [facility] [employer] [place] Y [facility] CO W/WO MXML VOL VNTJ PERCUTANE 38498 [facility] MAR OUS TESTS 6 [facility] [place] W/ALLERGE CO LEO EXTRACTS INTRACUTA 69497 [facility] MAR NEOUS 6 [facility] TESTS OF [place] W/ALLERGE CO LEO EXTRACTS NITRIC 76619 [facility] MAR OXIDE 6 [facility] [place] [address] [facility] KAM TRANSVAGI 6 PHYSICIAN MEAGAN NAL S GROUP ECG 94293 [place] CHAVEZ JR ROUTINE 6 [facility] W/LEAST P 12 LDS I&R ONLY IADNA 28760 [place] [facility] CHLAMYDIA 6 [facility]OS[facility] INC INC TRACHOMAT IS AMPLIFIED PROBE TQ IADNA 12231 [place] [facility] NEISSERIA 6 [facility] HOS[facility] INC INC GONORRHOE [place] AM[place] [address] [facility] TRACT 6 N N UPPER COMMUNTIY COMMUNTIY W/WO HOSPITA HOSPITA DELAYED IMAGES W/KUB RADIOLOGI 32299 [place] SAQ[facility] ALL C 6 MEDICAL EXAMINATI IMAGING ON CHEST ASS SINGLE VIEW FRONTAL ECG 56107 [place] [facility] ROUTINE 6 [facility] W/LEAST P 12 LDS I&R ONLY ELECTROEN 46820 [facility] CEPHALOGR 6 N AM W/REC NEUROLOGY AWAKE&[place] [address] [facility] ABDOMEN & 6 MEDICAL MEDICAL PELVIS IMAGING IMAGING W/CONTRAS ASS ASS T MATERIAL ECG 54432 [place] [facility] ROUTINE 6 [facility] W/LEAST P 12 LDS I&R ONLY ELECTROEN 76050 [facility] CEPHALOGR 6 N N AM W/REC COMMUNTIY COMMUNTIY [facility] HOSPITA WSY RADIOLOGI 85381 [place] SA[facility] ALL C 6 MEDICAL EXAMINATI IMAGING ON CHEST ASS SINGLE VIEW FRONTAL RADEX 78476 [place] [facility] ALL SPINE 6 MEDICAL THORACIC IMAGING 2 VIEWS ASS ECG 60553 [place] CHAVE[facility] JR ROUTINE 6 [facility] W/LEAST P 12 LDS I&R ONLY SCREENING G0202 [place] HARLEEN 6 MEDICAL [place] MAMMOGRAP IMAGING HY WILBERT ASS INCL CAD WHEN PERFORMD COMPUTER- 65793 [place] HARLEEN AIDED 6 MEDICAL [place] DETECTION IMAGING ASS SCREENING MAMMOGRAP HY RADEX ABD 64346 [place] [facility] COMPL 6 [facility] AQT ABD INC INC W/S/E/D VIE[place] 1 [place] [address] [place] [facility]USION 6 [facility] THERAPY/P INC INC ROPHYLAXI S /DX 1ST TO 1 HR ECG 39235 [place] [facility] ROUTINE 6 [facility] ECG INC INC W/LEAST 12 LDS TRCG ONLY W/O I&R BLOOD 53819 [facility] [facility] COUNT 6 [facility] COMPLETE INC INC AUTO&AUTO DIFRNTL WBC URNLS DIP 41572 [facility] [facility] 6 [facility] STICK/TAB INC INC [place] [address] [place] LACTATE 6 [place] [address] [place] TROPONIN 6 [facility] QUANTITAT INC INC SABIHA COMPREHEN 06346 [place] [facility] SIVE 6 [facility] METABOLIC INC INC PANEL ECG 18273 [place] CHAVEZ JR ROUTINE 6 [facility] W/LEAST P 12 LDS I&[place] [address] [facility] INFUSION 6 [facility] HOSP THERAPY/P INC INC ROPHYLAXI S /DX 1ST TO 1 HR ECG 67230 [place] [facility] ROUTINE 6 [facility] ECG INC INC W/LEAST 12 LDS TRCG ONLY W/O I&R RADIOLOGI 24793 [facility] ALL C EXAM 6 MEDICAL CHEST 2 IMAGING VIEWS ASS FRONTAL&L ATERAL COMPREHEN 25117 [place] [facility] SIVE 6 [facility] METABOLIC INC INC PANEL CULTURE 49051 [facility] [facility] BACTERIAL 6 [facility] INC INC QUANTTATI VE COLONY COUNT URINE CREATINE 26245 [facility] KINASE 6 [facility] TOTAL INC INC URINE 91996 [place] [facility] 6 [facility] TEST INC INC VISUAL COLOR CMPRSN METHS CREATINE 13524 [place] [facility] KINASE MB 6 [facility] [place] [address] [place] [facility] TROPONIN 6 [facility] QUANTITAT INC INC SABIHA BLOOD 69298 [place] [facility] COUNT 6 [facility] COMPLETE INC INC AUTO&AUTO DIFRNTL WBC ECG 43283 [place] MATUTE ROUTINE 6 [facility] W/LEAST P 12 LDS I&R ONLY URNLS DIP 33343 [place] [facility] 6 [facility] STICK/TAB INC INC LET REAGENT AUTO MICROSCOP Y AMB A0427 [facility] SERVICE 6 AMB[facility]ANCE AMBULANCE ALS SERVICE SERVICE EMERGENCY TRANSPORT LEVEL 1 RADEX ABD 41966 [place] [facility] ALL COMPL 6 MEDICAL AQT ABD IMAGING W/S/E/D ASS VIEWS 1 VIEW CH GROUND A0425 [facility] MILEAGE 6 AMBULANCE AMBULANCE PER SERVICE SERVICE STATUTE MILE COLLECTIO 47519 [facility] N VENOUS 6 N N BLOOD COMMUNTIY COMMUNTIY VENIPUNCT HOSPITA HOSPITA URE THER 70651 [facility] PROPH/DX 6 N N NJX IV COMMUNTIY COMMUNTIY PUSH HOSPITA HOSPITA SINGLE/1S T SBST/[place] [address] [facility] INFUSION 6 N N HYDRATION COMMUNTIY COMMUNTIY EACH HOSPITA HOSPITA ADDITIONA L HOUR MRI BRAIN 87541 [facility] BRAIN 6 N N STEM W/O COMMUNTIY COMMUNTIY CONTRAST HOSPITA HOSPITA MATERIAL BLOOD 86095 [facility] COUNT 6 N N COMPLETE COMMUNTIY COMMUNTIY AUTO&AUTO HOSPITA HOSPITA DIFRNTL WBC COMPREHEN 96073 [facility] SIVE 6 N N METABOLIC COMMUNTIY COMMUNTIY PANEL HOSPITA HOSPITA ECG 94997 [place] MATUTE ROUTINE 6 [facility] W/LEAST P 12 LDS I&R ONLY RADIOLOGI 30624 [place] [facility] ALL C 6 MEDICAL EXAMINATI IMAGING [place] [address] [place] [facility] ALL HEAD/BRAI 6 MEDICAL N W/O IMAGING CONTRAST ASS MATERIAL AMB A0427 [facility] SERVICE 6 AMBULANCE AMBULANCE ALS SERVICE SERVICE [place] [address] [place] [facility] ALL ABDOMEN & 6 MEDICAL PELVIS IMAGING W/O ASS CONTRAST MATERIAL GROUND A0425 [facility] MILEAGE 6 AMBULANCE AMBULANCE PER SERVICE SERVICE STATUTE MILE CHIROPRAC 09472 [facility] TIC 6 MANIPLTV TX EXTRASPIN AL 1/> REGION CHIROPRAC 99363 [facility] TIC 6 MANIPULAT [place] SPINAL 3-4 REGIONS THERAPEUT 61142 [facility] IC PX 1/> 6 AREAS EACH 15 MIN EXERCISES MANUAL 90199 [facility] THERAPY 6 TQS 1/> REGIONS EACH 15 MINUTES MANUAL 23450 [facility] THERAPY 6 TQS 1/> REGIONS EACH 15 MINUTES THERAPEUT 30261 [facility] IC PX 1/> 6 AREAS EACH 15 MIN EXERCISES THERAPEUT 69146 [facility] IC PX 1/> 6 MATTI MATTI AREAS EACH 15 MIN EXERCISES CHIROPRAC 28789 [facility] TIC 6 MATTI MATTI MANIPLTV TX EXTRASPIN AL 1/> REGION CHIROPRAC 98576 [facility] TIC 6 MATTI MATTI MANIPULAT SABIHA TX SPINAL 3-4 REGIONS MANUAL 53049 [facility] THERAPY 6 MATTI MATTI TQS 1/> REGIONS EACH 15 MINUTES BX SKIN 42057 SCAL[facility] LEI SCALF LEI SUBCUTANE 6 OUS&/MUCO US MEMBRANE 1 LESION IMHISTOCH 91990 SCAL[facility] LEI SCALF LEI EM/CYTCHM 6 1ST [place] [address] SCALF LEI SCALF LEI SURG 6 PATHOLOGY GROSS&BRYCE ROSCOPIC EXAM COMPREHEN 70121 [facility] SIVE 6 DIAGNOSTI DIAGNOSTI METABOLIC CS CS PANEL ECG 42774 [facility] W/LEAST P 12 LDS I&R ONLY ECG 07865 MU-ISMBerenice ANDRES ROUTINE 6 [facility] ECG MEDICAL W/LEAST GROUP 12 LDS I&R ONLY LOCM Q9967 MU-ISM MU-ISM [phone] 6 HEALTH HEALTH MG/ML [facility] IODINE CONCENTRA TION PER ML BLOOD 25090 MU-ISM MU-ISM COUNT 6 [facility]ALTH HEALTH COMPLETE [facility] AUTOMATED LIPID 43453 MU-ISM MU-ISM PANEL 6 HEALTH HEALTH [facility] HEMOGLOBI 53061 MU-ISM MU-ISM N 6 HEALTH HEALTH GLYCOSYLA [facility] LANEY A1C BASIC 23921 MU-ISM MU-ISM METABOLIC 6 HEALTH HEALTH PANEL [facility] CALCIUM TOTAL GONADOTRO 27215 MU-ISM MU-ISM PIN 6 HEALTH HEALTH CHORIONIC [facility] QUANTITAT [place] CATH PLMT 38304 MU-ISM MCKENNA Jordan HRT & 6 HEALTH IV ARTS MEDICAL W/NJX & GROUP ANGIO IMG S&I INJECTION J1644 MU-ISM MU-ISM HEPARIN 6 [facility] SODIUM [facility] PER 1000 UNITS INJECTION J3010 MU-ISM MU-ISM FENTANYL 6 [facility] CITRATE [facility] 0.1 MG COLLECTIO 74113 MU-ISM MU-ISM N VENOUS 6 [facility] BLOOD [facility] VENIPUNCT URE MYOCARDIA 64018 [place] Ortega SPECT 6 [facility] HOSP MULTIPLE INC INC STUDIES UNCLASSIF J3490 [facility] [facility] IED DRUGS 6 [facility] HOSP INC INC CV STRS 88139 [facility] [facility] TST 6 [facility] RX CONT P P ECG I&R ONLY CV STRS 11312 [place] [facility] TST 6 [facility] HOSP XERS&/OR INC INC RX CONT ECG TRCG ONLY CV STRS 73633 [place] TST 6 [facility] RX CONT P P ECG W/O I&R ECHO 77411 MELANIE STERN TTC R-T 6 MEDICAL 2D SERV W/WOM-MOD FOUNDATIO E COMPL N SPEC&COLR D TECHNETIU A9500 [place] Monten[place]ro TC-99M 6 [facility] HOSP SESTAMIBI INC INC DX PER STUDY DOSE ECG 66496 [place] CHAVEZ JR ROUTINE 6 [facility] W/LEAST P 12 LDS I&R ONLY RADIOLOGI 41444 [place] [facility] ALL C 6 MEDICAL EXAMINATI IMAGING ON CHEST ASS SINGLE VIEW FRONTAL OPHTH 87823 [facility] 6 XM&EVAL COMPRHNSV ESTAB PT 1/> [place] [address] [facility] TOCOPHERO 6 MAI MAI L ALPHA [facility] [place] [address] [facility] VITAMIN A 6 [place] [address] [facility] PHOSPHORU 6 MAI MA[place] [address] [facility] IRON 6 [place] [address] [facility] FOLIC 6 MAI MAI ACID [facility] SERUM PREALBUMI 35676 LAB [facility] N 6 [place] [address] [facility] ZINC 6 [facility]I [facility]INGS HOLDINGS BLOOD 58371 [facility] COUNT 6 [facility] COMPLETE [facility] AUTO&[place] [address] LAB [facility] LAB [facility] THIAMINE- 6 [facility] VITAMIN [facility] HOLDINGS B-1 COMPREHEN 46351 [facility] SIVE 6 [facility] METABOLIC [facility] PANEL 25 06561 [facility] HYDROXY 6 MAI MAI INCLUDES [facility] [place] [address] LAB [facility] PARATHORM 6 [place] [address] LAB [facility] MAGNESIUM 6 MAI MAI [facility]INGS HOLDINGS ORGANIC 01652 LAB [facility] ACID 1 6 MAI MAI QUANTITAT [place] [address] LAB [facility] FERRITIN 6 [place] [address] [place] VAUGHN FERRITIN 6 MEM HOS[facility] TERA INC 25 34840 [place] [facility] HYDROXY 6 [facility] INCLUDES INC INC FRACTIONS IF PERFORMED COMPREHEN 76245 [place] [facility] SIVE 6 [facility] METABOLIC INC INC PANEL BLOOD 71778 [place] [facility] COUNT 6 [facility] COMPLETE INC INC AUTO&AUTO DIFRNTL WBC IRON 50744 [facility] [facility] BINDING 6 [facility] [place] [address] [facility] [facility] IRON 6 [place] [address] [facility] THYROID 6 [facility] STIMULATI INC INC NG HORMONE TSH COLLECTIO 53658 [facility] [facility] N VENOUS 6 [facility] BLOOD INC INC VENIPUNCT URE IADNA 05196 [facility] GONORRHOE AE AMPLIFIED PROBE TQ IADNA 71030 [facility] CHLAMYD[facility] TRACHOMAT IS AMPLIFIED PROBE TQ IADNA 93516 [facility], [facility] HUMAN [facility] PAPILLOMA VIRUS HIGH-RISK TYPES CYTP 76551 [facility] CERVICAL/ 6 [facility] VAGINAL REQ INTERP PHYSICIAN CYTP C/V 52129 [facility], [facility] AUTO THIN 6 [facility] LYR PREPJ SCR MNL RESCR PHYS BASIC 61722 [place] [facility] METABOLIC 6 [facility] [place] [address] [place] [facility] THYROID 6 [facility] STIMULATI INC INC NG HORMONE TSH COLLECTIO 49148 [place] [facility] N VENOUS 6 [facility] BLOOD INC INC VENIPUNCT URE COLLECTIO 20727 [place] [facility] N VENOUS 6 [facility] BLOOD INC INC VENIPUNCT URE COMPREHEN 39511 [place] [facility] SIVE 6 [facility] [address] [facility] [facility] FERRITIN 6 [facility] INC INC ORGANIC 28674 [place] ACID 1 6 [facility] [place] [address] [facility] [place] THIAMINE- 6 [facility] VITAMIN INC INC B-1 [place] [address] [place] [facility] IRON 6 [facility] INC INC PREALBUMI 59778 [facility] [place] N 6 [facility] INC INC BLOOD 70247 [place] [facility] COUNT 6 [facility] COMPLETE INC INC AUTO&AUTO DIFRNTL WBC PREALBUMI 04760 [facility] N 5 [place] [address] LAB [facility] LAB [facility] IRON 5 [place] [address] LAB [facility] LAB [facility] FOLIC 5 MAI MAI [place] [address] LAB MA[facility] LAB [facility] THIAMINE- 5 [facility] VITAMIN HOLDINGS HOLDINGS B-1 ORGANIC 42640 LAB [facility] LAB [facility] ACID 1 5 [facility] QUANTITAT [place] [address] LAB [facility] LAB [facility] FERRITIN 5 [facility] HOLDINGS HOLDINGS GENERAL 22691 LAB [facility] LAB MA[facility]ESH HEALTH 5 [facility] PANEL HOLDINGS HOLDINGS DESTRUCTI 69406 ATKINS ATKINS ON 5 TRA TRA PREMALIGN ANT LESION 1ST DESTRUCTI 15892 ATKINS ATKINS ON BENIGN 5 TRA TRA LESIONS UP TO 14 [place] [address] SCALF LEI SCALF LEI SURG 5 PATHOLOGY GROSS&BRYCE ROSCOPIC EXAM BIOPSY 26820 ATKINS ATKINS SKIN 5 TRA TRA SUBQ&/MUC OUS MEMBRANE EA ADDL LESN BX SKIN 66418 ATKINS ATKINS SUBCUTANE 5 TRA TRA OUS&/MUCO US MEMBRANE 1 LESION COMPREHEN 94866 LAB [facility] LAB [facility]ESH SIVE 5 [facility] METABOLIC [place] [address] LAB MA[facility]ESH LAB MA[facility] THIAMINE- 5 [facility] VITAMIN HOLDINGS HOLDINGS B-1 ORGANIC 37383 LAB [facility] LAB [facility] ACID 1 5 [facility] QUANTITAT [place] [address] LAB MA[facility]ESH LAB MAHESH FOLIC 5 [facility] [place] [address] LAB MAHESH LAB MAHESH IRON 5 [facility] HOLDINGS HOLDINGS PREALBUMI 08523 [facility] LAB MAHESH N 5 [facility] HOLDINGS HOLDINGS BLOOD 41569 [facility] LAB [facility]ESH COUNT 5 [facility] COMPLETE HOLDINGS HOLDINGS AUTO&AUTO DIFRNTL WBC SCREENING G0202 [place] [facility] 5 [facility] MAMMOGRAP INC INC HY WILBERT INCL CAD WHEN PERFORMD COMPUTER- 89492 [place] [facility] AIDED 5 [facility] DETECTION INC [place] [address] [facility] THYROID 5 [facility] STIMULATI INC INC NG HORMONE TSH COLLECTIO 29553 [place] [facility] N VENOUS 5 [facility] BLOOD INC INC VENIPUNCT URE BLOOD 10193 [facility] COUNT 5 [facility] COMPLETE INC INC AUTO&AUTO DIFRNTL WBC HEMOGLOBI 73208 [facility] N 5 [facility] HOSP GLYCOSYLA INC INC LANEY A1C LIPID 35264 [place] PANEL 5 [place] [address] [facility] GLUTAMYLT 5 [facility] RASE INC INC GAMMA CYANOCOBA 70128 [place] [facility] LYUBOV 5 [facility] VITAMIN INC INC B-12 COMPREHEN 34120 [place] [facility] SIVE 5 [facility] METABOLIC INC INC PANEL 25 91343 [facility] HYDROXY 5 [facility] INCLUDES INC INC FRACTIONS IF PERFORMED OPHTH 87006 [employer] MEDICAL 5 ANG ANG XM&EVAL COMPRHNSV ESTAB PT 1/> [place] [address] [facility] [place] SCALF HUBER ABDOMEN & 5 RADIOLOGY PELVIS W/[place] [address] [place] [facility] ALL ABDOMEN & 5 MEDICAL PELVIS IMAGING W/CONTRAS ASS T MATERIAL COMPREHEN 75905 [facility] SIVE 5 [facility] METABOLIC INC INC PANEL URINE 95734 [place] [facility] 5 [facility] TEST INC INC [place] [address] [facility] [facility] LIPASE 5 [place] [address] [facility] [facility] AMYLASE 5 [facility] INC INC CULTURE 50170 [place] [facility] BACTERIAL 5 [facility] INC INC QUANTTATI VE COLONY COUNT URINE URNLS DIP 61427 [place] [facility] 5 [facility] STICK/TAB INC INC LET REAGENT AUTO MICROSCOP Y BLOOD 37239 [facility] COUNT 5 [facility] COMPLETE INC INC AUTO&AUTO DIFRNTL WBC BLOOD 78768 [facility] COUNT 5 N N COMPLETE COMMUNTIY COMMUNTIY AUTO&AUTO HOSP[place] [address] [facility] FOLIC 5 N N ACID COMMUNTIY COMMUNTI[place] [address] [facility] ZINC 5 N N COMMUNTIY COMMUNTIY HOSPITA HOSPITA PREALBUMI 46396 [facility] N 5 N N COMMUNTI[place] [address] [facility] THIAMINE- 5 N N VITAMIN COMMUNTIY COMMUNTIY B-[place] [address] [facility] AMYLASE 5 N N COMMUNTIY [place] [address] [facility] MAGNESIUM 5 N N COMMUNTIY COMMUNTIY HOSPITA HOSPITA ORGANIC 84742 [facility] ACID 1 5 N N QUANTITAT COMMUNTIY COMMUNTIY [place] [address] [facility] PARATHORM 5 N N ONE COMMUNTIY [place] [address] [facility] LIPASE 5 N N COMMUNTIY COMMUNTIY HOSPITA HOSPITA COMPREHEN 50851 [facility] SIVE 5 N N METABOLIC COMMUNTIY COMMUNTIY PANEL HOSPITA HOSPITA 25 84112 [facility] HYDROXY 5 N N INCLUDES COMMUNTIY COMMUNTIY [place] [address] [facility] [place] ANDREWS ABDOMINAL 5 RADIOLOGY RHO REAL TIME W/IMAGE LIMITED COLLECTIO 65588 [facility] N VENOUS 5 N N BLOOD COMMUNTIY COMMUNTIY VENIPUN[place] [address] [facility] TOCOPHERO 5 N N L ALPHA COMMUNTIY COMMUNTIY [place] [address] [facility] VITAMIN A 5 N N [place] [address] [facility] PHOSPHORU 5 N N S COMMUNTIY COMMUNTIY INORGANIC HOSPITA HOSPITA COLLECTIO 82409 [facility] N VENOUS 5 N N BLOOD COMMUNTIY COMMUNTIY [place] [address] [place] [facility] RETROPERI 5 [facility] TONEAL INC [place] REAL [place] W/[place] [address] SEJAL ENGLE RETROPERI 5 MEDICAL TONEAL IMAGING REAL TIME ASS W/IMAGE LIMITED COMPREHEN 34497 [facility] SIVE 5 N N METABOLIC COMMUNTIY COMMUNTIY PANEL HOSPITA HOSPITA IMMUNOASS 28219 [facility] AY 5 N N ANALYTE COMMUNTIY COMMUNTIY QUAL/SEMI HOSPITA [place] [address] [facility] FERRITIN 5 N N COMMUNTIY COMMUNTIY HOSPITA HOSPITA HEPATITIS 19626 [facility] B CORE 5 N N ANTIBODY COMMUNTIY COMMUNTIY HBCAB HOSPITA HOSPITA TOTAL HEPATITIS 09274 [facility] B SURF 5 N N ANTIBODY COMMUNTIY COMMUNTIY HBSAB HOSPITA HOSPITA PROTHROMB 48312 [facility] IN TIME 5 N N COMMUNTI[place] [address] [facility] HEPATITIS 5 N N B COMMUNTIY COMMUNTIY SURFACE HOSPITA HOSPITA ANTIGEN ANTINUCLE 25377 [facility] AR 5 N N ANTIBODIE COMMUNTIY COMMUNTIY [place] [address] [facility] IRON 5 N N COMMUNTIY COMMUNTIY HOSPITA HOSPITA BLOOD 17810 [facility] COUNT 5 N N COMPLETE COMMUNTIY COMMUNTIY AUTOMATED HOSPITA HOSPITA HEPATITIS 47888 [facility] C 5 N N ANTIBODY COMMUNTIY [place] [address] [facility] GAMMAGLOB 5 N N ULIN IGA COMMUNTIY COMMUNTIY IGD IGG HOSPITA HOSPITA IGM EACH ALPHA-1-A 19702 [facility] NTITRYPSI 5 N N N TOTAL COMMUNTIY COMMUNTIY HOSPITA HOSPITA IRON 89975 [facility] BINDING 5 N N CAPACITY [place] [address] [facility] LUMPKINMago SMITH KADIE ABDOMEN & 5 MEDICAL PELVIS IMAGING W/O ASS CONTRAST MATERIAL DUP-SCAN 94340 [facility] XTR VEINS 5 N N COMPLETE COMMUNTIY COMMUNTIY HOSPITA HOSPITA BILATERAL STUDY COMPREHEN 39325 [facility] SIVE 5 N N METABOLIC COMMUNTIY COMMUNTIY PANEL HOSPITA HOSPITA COLLECTIO 97061 [facility] N VENOUS 5 N N BLOOD COMMUNTIY COMMUNTIY VENIPUNCT HOSPITA HOSPITA URE BLOOD 93882 [facility] COUNT 5 N N COMPLETE COMMUNTIY COMMUNTIY AUTO&AUTO HOSP[place] [address] [facility] LIPASE 5 N N COMMUNTI[place] [address] [facility] AMYLASE 5 N N COMMUNTIY [place] [address] [facility] [place] SCAL[place] HUBER TRACT 5 RADIOLOGY UPPER W/WO DELAYED IMAGES W/KUB ANES IPR 92032 [facility] ANT UPPER 5 ANESTHESI ABDOMEN A GROUP LAPS PS GASTRIC RSTCV MO LAPS 05791 [facility] SANCHEZ MICHELLE GSTRC 5 RSTRICTIV BARIATRIC PX SURGICAL LONGITUDI NAL GASTRECTO MY LAPAROSCO 4382 [facility] PIC 5 N N VERTICAL COMMUNTIY COMMUNTIY SLEEVE HOSPITA HOSPITA GASTRECTO MY OTHER 4513 [facility] ENDOSCOPY 5 N N OF SMALL COMMUNTIY COMMUNTIY HOSPITA HOSPITA INTESTINE APPL 42839 [facility] MODALITY 5 [facility] 1/> AREAS INC INC ELEC STIMJ UNATTENDE D APPLICATI 13835 [place] [facility] ON 5 [facility] MODALITY INC INC 1/> AREAS HOT/COLD PACKS APPL 33966 [place] [facility] MODALITY 5 [facility]P 1/> AREAS INC INC ULTRASOUN D EA 15 MIN COLLECTIO 56883 [facility] N VENOUS 5 N N BLOOD COMMUNTIY COMMUNTIY VENIPUNCT HOSPITA HOSPITA URE DUP-SCAN 46303 [place] [facility] XTR VEINS 5 [facility] COMPLETE INC INC BILATERAL STUDY BLOOD 52891 [facility] COUNT 5 N N COMPLETE COMMUNTIY COMMUNTIY AUTOMATED HOSPITA HOSPITA GONADOTRO 82267 [facility] PIN 5 N N CHORIONIC COMMUNTIY COMMUNTIY HOSPITA HOSPITA QUALITATI VE COMPREHEN 49954 [facility] SIVE 5 N N METABOLIC COMMUNTIY COMMUNTIY PANEL HOSPITA HOSPITA APPL 99730 [place] [facility] MODALITY 5 [facility]P 1/> AREAS INC INC ELEC STIMJ UNATTENDE D THERAPEUT 12928 [place] [facility] IC PX 1/> 5 [facility] AREAS INC INC EACH 15 MIN EXERCISES APPL 88815 [place] [facility] MODALITY 5 [facility] 1/> AREAS INC INC ULTRASOUN D EA 15 MIN APPLICATI 39474 [place] [facility] ON 5 [facility] MODALITY INC INC 1/> AREAS HOT/COLD PACKS CUL BACT 86545 [place] [facility] XCPT 5 [facility] URINE INC INC BLOOD/STO OL AEROBIC ISOL SUSCEPTIB 21086 [place] [facility] LTY STDY 5 [facility] ANTIMICRB INC INC IAL MICRO/AGA R DILUTJ APPLICATI 54245 [place] [facility] ON 5 [facility] MODALITY INC INC 1/> AREAS HOT/COLD PACKS APPL 93608 [place] [facility] MODALITY 5 [facility] 1/> AREAS INC INC ULTRASOUN D EA 15 MIN THERAPEUT 17446 [facility] IC PX 1/> 5 [facility] ARE[facility] INC INC EACH 15 MIN EXERCISES APPL 12037 [facility]ALITY [facility]/> AREAS INC INC ELEC STIMJ UNATTENDE D APPL 48268 [facility]ALITY [facility] 1/> AREAS INC INC ELEC STIMJ UNATTENDE D APPL 28781 [facility] MODALITY 5 [facility]/> AREAS INC INC IONTOPHOR ESIS EA 15 MIN APPL 81267 [facility] MODALITY [facility]/> AREAS INC INC ULTRASOUN D EA 15 MIN APPLICATI 32311 [facility] ON [facility] MODALITY INC INC 1/> AREAS HOT/COLD PACKS APPLICATI 44480 [facility] ON [facility] MODALITY INC INC 1/> AREAS HOT/COLD PACKS APPL 50271 [facility] MODALITY 5 [facility] 1/> AREAS INC INC ULTRASOUN D EA 15 MIN APPL 44443 [facility] MODALITY 5 [facility]/> AREAS INC INC IONTOPHOR ESIS EA 15 MIN THERAPEUT 94119 [facility] IC PX 1/> 5 [facility] AREAS INC INC EACH 15 MIN EXERCISES APPL 41428 [facility] MODALITY 5 [facility] 1/> AREAS INC INC ELEC STIMJ UNATTENDE D COLLECTIO 50040 [facility] N VENOUS 5 N N BLOOD COMMUNTIY COMMUNTIY VENIPUNCT HOSPITA HOSPITA URE COMPREHEN 78721 [facility] SIVE 5 N N METABOLIC COMMUNTIY COMMUNTIY [place] [address] [facility] THYROID 5 N N STIMULATI COMMUNTIY COMMUNTIY NG HOSPITA HOSPITA HORMONE TSH ECG 44655 [facility] ROUTINE 5 N N ECG COMMUNTIY COMMUNTIY W/LEAST HOSPITA HOSPITA 12 LDS TRCG ONLY W/O I&R RADIOLOGI 82466 [facility] [place] C EXAM 5 RADIOLOGY SHA CHEST 2 VIEWS FRONTAL&L ATERAL BLOOD 85958 [facility] COUNT 5 N N COMPLETE COMMUNTIY COMMUNTIY AUTOMATED HOSPITA HOSPITA LIPID 14753 [facility] PANEL 5 N N COMMUNTIY COMMUNTIY HOSPITA HOSPITA THYROID 38990 [facility] HORM 5 N N UPTK/THYR COMMUNTIY COMMUNTIY OID HOSPITA [place] [address] [facility] THYROXINE 5 N N TOTAL COMMUNTIY COMMUNTIY HOSPITA HOSPITA CUL 32178 [facility] PRSMPTV 5 N N PTHGNC COMMUNTIY COMMUNTIY ORGANISM HOSPITA HOSPITA SCRN W/COLONY ESTIMJ PHYSICAL 06037 [facility] THERAPY 5 [facility] EVALUATIO INC INC N COLLECTIO 26317 [facility] N VENOUS 5 [facility] BLOOD INC INC VENIPUNCT URE FIBRIN 27077 [facility] DGRADJ 5 [facility] PRODUCTS INC INC D-DIMER QUAL/SEMI GILBERT ECG 13599 [facility] ROUTINE 5 [facility] W/LEAST P 12 LDS I&[place] [address] [facility] TROPONIN 5 [facility] QUANTITAT INC INC SABIHA BLOOD 27077 [facility] COUNT 5 [facility] COMPLETE INC INC AUTO&AUTO DIFRNTL WBC URNLS DIP 65322 [facility] STICK/TAB INC INC LET REAGENT AUTO MICROSCOP Y ECG 52557 [facility] ROUTINE 5 [facility] ECG INC INC W/LEAST 12 LDS TRCG ONLY W/O I&R RADIOLOGI 53317 [facility] C EXAM 5 [facility] CHEST 2 IMAGING VIEWS ASS FRONTAL&L ATERAL COMPREHEN 54422 [facility] SIVE 5 [facility] METABOLIC INC INC PANEL COMPREHEN 88204 [facility] SIVE 5 [facility] METABOLIC INC INC PANEL ECG 34485 [facility] ROUTINE 5 [facility] ECG INC INC W/LEAST 12 LDS TRCG ONLY W/O I&[place] [address] [facility] ANGIOGRAP 5 [facility] HY CHEST IMAGING W/CONTRAS ASS T/NONCONT RAST RADIOLOGI 66731 [facility] CANSECO C EXAM 5 [facility] CHEST 2 IMAGING VIEWS ASS FRONTAL&L ATERAL BLOOD 70676 [facility] COUNT 5 [facility] COMPLETE INC INC AUTO&[place] [address] [facility] TROPONIN 5 [facility] QUANTITAT INC INC SABIHA LOCM [id number] [place] [phone] [facility] MG/ML INC INC IODINE CONCENTRA TION PER ML ECG 90528 [place] MATUTE ROUTINE 5 [facility] W/LEAST P 12 LDS I&R ONLY FIBRIN 57116 [place] DGRADJ 5 [facility] HOSP PRODUCTS INC INC D-DIMER QUAL/SEMI GILBERT RADEX 86536 [facility] ABBOTTHARLEEN SHOULDER 4 MEDICAL COMPLETE IMAGING MINIMUM 2 ASS VIEWS REPAIR 64822 ATKINS ATKINS COMPLEX 4 TRA TRA SCALP/ARM /LEG 1.1-2.5 CM LEVEL III 08344 SCALF LEI SCALF LEI SURG 4 PATHOLOGY GROSS&BRYCE ROSCOPIC EXAM DESTRUCTI 66547 ATKINS ATKINS ON BENIGN 4 TRA TRA LESIONS UP TO 14 THERAPEUT 01234 [place] IC 4 [facility] HOSP INJECTION INC [place] [address] [facility] CANSECO HEAD/BRAI 4 MEDICAL ADRIANNA N W/O IMAGING CONTRAST ASS MATERIAL ANES 62942 [place] BENSON UPPER GI 4 ANESTHESI JOSE ANGEL ENDOSCOPY A [place] [address] [facility], PICKLESIM SURG 4 [facility] PATHOLOGY GROSS&BRYCE ROSCOPIC EXAM EGD 71581 [facility] SANCHEZ MICHELLE TRANSORAL 4 BIOPSY BARIATRIC SINGLE/MU SURGICAL LTIPLE SPECIAL 73766 [facility], PICKLESIM STAIN 4 [facility] 1 MICROORGA NISMS I&R SPCL STN 86330 [facility], PICKLESIM 2 I&R 4 LLC ER JR WANDA EXCPT MICROORG/ ENZYME/IM CYT SPMTRY 50486 [place] W/VC 4 [facility] EXPIRATOR INC INC Y ABHI W/WO MXML VOL VNTJ LEVEL III 41844 SCALF LEI SCALF LEI SURG 4 PATHOLOGY GROSS&BRYCE ROSCOPIC EXAM EXC B9 96264 ADVANCED SCALF LEI LESION 4 DERMATOLO MRGN XCP GY SK TG S/N/H/F/G 1.1-2.0CM REPAIR 76026 ADVANCED SCALF LEI COMPLEX 4 DERMATOLO SCALP/ARM GY /LEG 1.1-2.5 CM RADIOLOGI 67309 [place] C EXAM 4 [facility] HOSP CHEST 2 INC INC VIEWS FRONTAL&L ATERAL REMOVAL 57753 ATKINS ATKINS SKN TAGS 4 TRA TRA AUDIENCE DEVELOPMENT MANAGER FIBRQ TAGS ANY AREA UPW/15 CV STRS 09519 [place] MATUTE TST 4 [facility] RX CONT P ECG I&R ONLY CV STRS 24009 [place] TST 4 [facility]OSP XERS&/OR INC INC RX CONT ECG TRCG ONLY ECHO 73003 MELANIE MARTINEZ TTHRC R-T 4 MEDICAL ALI 2D SERV W/WOM-MOD FOUNDATIO E COMPL SPEC&COLR D RADIOLOGI 94125 [facility] C EXAM 4 MEDICAL CARMEN CHEST 2 IMAGING VIEWS ASS FRONTAL&L ATERAL ECG 30045 [place] ROUTINE 4 [facility] ECG INC INC W/LEAST 12 LDS TRCG ONLY W/O I&R RADIOLOGI 79183 [place] C 4 [facility] EXAMINATI INC INC [place] [address] [place] TROPONIN 4 [facility]OSP QUANTITAT INC INC SABIHA BLOOD 27583 [place] COUNT 4 [facility] COMPLETE INC INC AUTO&AUTO DIFRNTL WBC ECG 15447 SCOTT CHAVEZ JR ROUTINE 4 DWI DWI ECG W/LEAST 12 LDS I&R ONLY BASIC 36171 [place] METABOLIC 4 [facility] PANEL INC INC CALCIUM TOTAL ECG 66072 GIOVANI BORDENSON ROUTINE 4 DOMINIQUE DOMINIQUE ECG W/LEAST 12 LDS I&R ONLY FIBRIN 78505 [place] DGRADJ 4 [facility] PRODUCTS INC INC D-DIMER QUAL/SEMI GILBERT CREATINE 53436 [place] KINASE 4 [facility] TOTAL INC INC CREATINE 50817 [place] KINASE MB 4 [facility] FRACTION INC INC ONLY BLOOD 50635 [place] COUNT 4 [facility] COMPLETE INC INC AUTO&[place] [address] [place] TROPONIN 4 [facility] QUANTITAT INC INC SABIHA ECG 92516 [place] ROUTINE 4 [facility] ECG INC INC W/LEAST 12 LDS TRCG ONLY W/O I&R RADIOLOGI 63103 [place] C EXAM 4 [facility]OSP CHEST 2 INC INC VIEWS FRONTAL&L ATERAL COMPREHEN 85573 [place] SIVE 4 [facility] METABOLIC INC INC PANEL HEMOGLOBI 33605 COMBINED COMBINED N 4 PHYSICIAN PHYSICIAN GLYCOSYLA S LA S LA LANEY A1C LIPID 59034 COMBINED COMBINED PANEL 4 PHYSICIAN PHYSICIAN S LA S [place] CYANOCOBA 41384 COMBINED COMBINED LYUBOV 4 PHYSICIAN PHYSICIAN VITAMIN S LA S LA B-12 25 98457 COMBINED COMBINED HYDROXY 4 PHYSICIAN PHYSICIAN INCLUDES S LA S LA FRACTIONS IF PERFORMED GENERAL 86665 COMBINED COMBINED HEALTH 4 PHYSICIAN PHYSICIAN PANEL S LA S LA SEDIMENTA 48056 COMBINED COMBINED TION RATE 4 PHYSICIAN PHYSICIAN [place] [address] COMBINED COMBINED FREE 4 PHYSICIAN PHYSICIAN THYROXINE S LA S LA COMPUTER- 94615 [place] AIDED 4 [facility] DETECTION INC INC SCREENING MAMMOGRAP HY SCREENING G0202 [place] 4 [facility] MAMMOGRAP INC INC HY WILBERT INCL CAD WHEN PERFORMD LIPID 79832 [facility] QUEST PANEL 4 DIAGNOSTI DIAGNOSTI CS CS IIV3 47832 DHS/CO [place] VACCINE 9 HEALTH CO [facility] VIRUS 0.5 BANK ACCT ML DOSAGE IM USE RADEX HIP 42901 AUSITN [place] 9 [facility] UNILATERA INC INC L COMPLETE MINIMUM 2 VIEWS RADEX 09590 MOHAN ANKUR, SPINE 9 [facility] LUMBSCRL CORPORATI COMPL ON W/BENDING VIEWS MIN 6 RADIOLOGI 48812 [facility] Cliff MOISE 9 MEDICAL MAX P EXAMINATI IMAGING ON PELVIS ASSOCIATE 1/2 S VIEWS RADEX 89537 [facility] SUMA, SPINE 9 MEDICAL MAX P LUMBOSACR IMAGING AL ASSOCIATE MINIMUM 4 S VIEWS Encounters Encounter Start End Date Code Location Performer Type Date [facility] [place] - 7 7 [facility] OUTPATIEN INC T OFFICE 81912 [place] OUT[place]IEN 7 7 [facility] T VISIT 5 INC MINUTES EMERGENCY 26291 [place] 7 7 [facility] T VISIT MODERATE SEVERITY EMERGENCY 59633 [facility] DEPT 7 7 PHYSICIAN VISIT S, [facility] HIGH SEVERITY& THREAT [facility] [place] - 7 7 [facility] OUTPATIEN [facility] MU-ISM - 7 7 HEALTH OUTPATIEN [place] T OFFICE 88833 [place] ARSLAN OUTPATIEN 7 7 [place] T VISIT INTERNAL 15 MED MINUTES [facility] MU-ISM - 7 7 HEALTH OUTPATIEN [place] T OFFICE 55685 [place] CELI OUTPATIEN 7 7 [facility] T VISIT HOSPITAL 10 P MINUTES OFFICE 66056 MU-ISM FUNES OUTPATIEN 7 7 HEALTH T VISIT MEDICAL 25 GROUP MINUTES [facility] [place] - 7 7 [facility] OUTPATIEN INC T OFFICE 00412 YVETTE AVINA OUTPATIEN 7 7 MD RHIANNON, T VISIT PSC 15 MINUTES OFFICE 34900 [place] OUT[facility]IEN 7 7 [facility] T VISIT INC 10 MINUTES [facility] [place] [facility] 7 [facility] OUTPATIEN INC T OFFICE 32115 [place] OUTPATIEN 7 7 [facility] T VISIT 5 INC MINUTES OFFICE 62750 [place] WEISS JR OUTPATIEN 7 7 [facility] T VISIT HOSPITAL 10 P MINUTES EMERGENCY 38474 [place] 7 7 [facility] DEPARTMEN INC T VISIT LOW/MODER SEVERITY [facility] [place] - 7 7 [facility] OUTPATIEN INC T EMERGENCY 46824 SMILEY PASCUAL DEPT 7 7 PHYSICIAN VISIT S, PLLC HIGH SEVERITY& THREAT FUNCJ OFFICE 12615 [place] ALATORRE OUTDAYRON 7 7 [facility] T VISIT HOSPITAL 10 P MINUTES [facility] [place] [facility] 7 [facility] OUTPATIEN INC T [facility] [place] [facility] 7 [facility] OUTPATIEN INC T EMERGENCY 60104 AUSITN 7 7 [facility] DEPARTMEN INC T VISIT HIGH/URGE NT SEVERITY [facility] [place] [facility] 7 [facility] OUTPATIEN INC T OFFICE 45911 [place] GIOVANI OUTPATINEENA 7 7 [facility] T VISIT INTERNAL 15 MED MINUTES PERIODIC 12402 [facility] HUMPHREY PREVENTIV 7 7 PHYSICIAN E MED EST S GROUP PATIENT [id number] [facility] [place] - 7 7 [facility] OUTPATIEN INC T OFFICE 53364 [facility] MAEGAN CHAND 7 7 PHYSICIAN T VISIT S GROUP 15 MINUTES EMERGENCY 18512 S[place]LEY JAQUEZ 7 7 PHYSICIAN DEPARTMEN S, [facility] T VISIT HIGH/URGE NT SEVERITY [facility] [place] [facility] 7 [facility] OUTPATIEN INC T OFFICE 87056 [place] ALATORRE OUTPATIEN 7 7 [facility] T VISIT HOSPITAL 10 P MINUTES OFFICE 19354 YVETTE JURADO OUTPATIEN 7 7 MD RHIANNON, T VISIT PSC 10 MINUTES [facility] [place] [facility] OUTPATIEN INC T [facility] [place] [facility] 7 7 [facility] OUTPATIEN INC T [facility] [place] [facility] 7 [facility] OUTPATIEN INC T OFFICE 17983 [facility] KIMBERLY OUTPATIEN 7 7 PHYSICIAN T VISIT S GROUP 25 MINUTES [facility] [place] - [facility] 7 [facility] OUTPATIEN INC T OFFICE 30099 [facility] ISSA OUTPATIEN 7 7 PHYSICIAN T VISIT S GROUP 10 MINUTES OFFICE 05076 YVETTE AVINA OUTPATIEN 7 7 MD RHIANNON, T NEW 30 PSC MINUTES OFFICE 57688 [place] OUT[facility]IEN 7 7 [facility] T VISIT 5 INC MINUTES [facility] [place] [facility] OUTPATIEN INC [facility] [place] [facility] 7 [facility] OUTPATIEN INC T EMERGENCY 02385 SMILEY SOTOMAYOR 7 7 PHYSICIAN JR RADHA Reddy [facility] T VISIT HIGH/URGE NT SEVERITY [facility] [place] - 7 7 [facility] OUTPATIEN INC T OFFICE 57976 [facility] KIMBERLY OUTPATIEN 7 7 PHYSICIAN T VISIT S GROUP 25 MINUTES OFFICE 20214 [place] MICHISON OUTPATIEN 7 7 [facility] T VISIT INTERNAL 15 MED MINUTES [facility] [place] - 7 7 [facility] OUTPATIEN INC T OFFICE 40885 [facility] KIMBERLY OUTPATIEN 7 7 PHYSICIAN T VISIT S GROUP 25 MINUTES OFFICE 03349 ANGELITO ADAMS OUTPATIEN 7 7 [place] T VISIT ORTHOPAED 15 IC MINUTES [facility] [place] [facility] 7 7 [facility] OUTPATIEN INC T EMERGENCY 72601 [place] 7 7 [facility] DEPARTMEN INC T VISIT HIGH/URGE NT SEVERITY EMERGENCY 74531 SMI[facility] ARMIJO DEPT 7 7 PHYSICIAN VISIT S, [facility] HIGH SEVERITY& THREAT FUNCJ OFFICE 25059 [place] GIOVANI OUTPATIEN 7 7 [place] T VISIT INTERNAL 25 MED MINUTES [facility] [place] - 7 7 [facility] OUTPATIEN INC T OFFICE 84184 [place] CHAND 7 7 [facility] T VISIT 5 INC MINUTES OFFICE 20341 [facility] OUTPATI 7 7 [place] T NEW 30 ORTHOPAED MINUTES IC EMERGENCY 73716 [place] 7 7 [facility] DEPARTMEN INC T VISIT LOW/MODER SEVERITY [facility] [place] - 7 7 [facility] OUTPATIEN INC T EMERGENCY 77890 [facility] JIMENEZ DEPT 7 7 PHYSICIAN U VISIT S, [facility] HIGH SEVERITY& THREAT FUN [facility] [place] - 7 7 [facility] OUTPATIEN INC T [facility] [place] - 7 7 [facility] OUTPATIEN INC T EMERGENCY 77397 [place] 7 7 [facility] DEPARTMEN INC T VISIT MODERATE SEVERITY EMERGENCY 77494 [place] 7 7 [facility] DEPARTMEN INC T VISIT LOW/MODER SEVERITY [facility] [place] - 7 7 [facility] OUTPATIEN INC T EMERGENCY 20058 SMILEY PASCUAL 7 7 PHYSICIAN DEPARTMEN S, [facility] T VISIT HIGH/URGE NT SEVERITY OFFICE 99179 [place] OUTPATIEN 7 7 [facility] T VISIT 5 INC MINUTES [facility] [place] [facility] 7 7 [facility] OUTPATIEN INC T OFFICE 79353 [place] OUTPATIEN 7 7 [facility] T VISIT INTERNAL 15 MED MINUTES EMERGENCY 44369 [facility] 7 7 [facility] EMERGENCY T VISIT PHYS MODERATE SEVERITY EMERGENCY 98890 [place] 7 7 [facility] H[facility]PITAL T VISIT LOW/MODER SEVERITY [facility] [place] [facility] 7 7 [facility] OFF[facility] 62343 [place] OUTPATIEN 7 7 [facility] T VISIT 5 INC MINUTES [facility] [place] - 7 7 [facility] OUTPATIEN INC T OFFICE 80778 [place] OUTPATIEN 7 7 [facility] T VISIT INTERNAL 15 MED MINUTES OFFICE 11818 [place] OUTPATIEN 7 7 [facility] T VISIT 5 INC MINUTES EMERGENCY 98525 SMILEY MEDEROS 7 7 PHYSICIAN [facility] S, [facility] T VISIT MODERATE SEVERITY [facility] [place] - 7 7 [facility] OUTPATIEN INC T [facility] [place] - 7 7 [facility] OUTPATIEN INC T OFFICE 13398 [place] OUTPATIEN 7 7 [facility] T VISIT 5 INC MINUTES OFFICE 80762 [place] OUTPATIEN 7 7 [facility] T VISIT INTERNAL 25 MED MINUTES [facility] [place] - 7 7 [facility] OUTPATIEN INC T OFFICE 39159 [place] OUTPATIEN 7 7 [facility] T NEW 10 INC MINUTES OFFICE 78461 [place] JASSO OUTPATIEN 7 7 T VISIT 25 MINUTES HOSPITAL MU-ISM - 7 7 HEALTH OUTPATIEN [place] T EMERGENCY 22652 [place] 7 7 [facility] VIS[facility]/M INOR [facility] [place] [facility] 7 7 [facility]PATI[facility] [place] [facility] 7 7 [facility] OUTPATIEN [facility] EMERGENCY 46438 [place] 7 7 [facility] T VISIT LOW/MODER SEVERITY EMERGENCY 01518 SMILEY PASCUAL 7 7 [facility]IC[facility], [facility] T VISIT MODERATE SEVERITY EMERGENCY 50673 [place] 7 7 [facility] VISIT LIMITED/M INOR [facility] [place] - 7 7 [facility]ISM - 7 7 [facility]-ISM - 7 7 [facility] 38076 SMILEY SOTOMAYOR, 6 6 PHYSICIAN [facility] S, [facility] T VISIT HIGH/URGE NT SEVERITY [facility] [place] - 6 6 [facility] OFF[facility] 44756 [place] [facility] 6 6 [facility] VISIT INTERNAL 15 [facility] [place] [facility] 6 6 [facility] EMERGENCY 01753 SMILEY JAQUEZ 6 6 PHYSICIAN [facility] S [facility] T VISIT HIGH/URGE NT SEVERITY EMERGENCY 53015 [place] 6 6 [facility] T VISIT MODERATE SEVERITY EMERGENCY 92500 SMILEY ARMIJO 6 6 [facility]IC[facility] T VISIT MODERATE SEVERITY EMERGENCY 68829 SMILEY PASCUAL 6 6 PHYSICIAN BRYCE GARCIA S [facility] T VISIT MODERATE SEVERITY [facility] [place] - 6 6 [facility] EM[facility] 67781 [place] 6 6 [facility] DEPARTMEN INC T VISIT LOW/MODER SEVERITY OFFICE 25909 SCIFRES SCIFRES OUTPATIEN 6 6 ANG ANG T VISIT 10 MINUTES OFFICE 65779 LUIS MCDANIELS OUTPATIEN 6 6 [place] OFELIA T VISIT INTERNAL 15 MED MINUTES OFFICE 40578 [facility] SANCHEZ MICHELLE OUTPATIEN 6 6 T VISIT BARIATRIC 25 SURGICAL MINUTES [facility] [place] - 6 6 [facility] OUTPATIEN INC T EMERGENCY 65243 SMILEY SOTOMAYOR 6 6 PHYSICIAN JR BILLINGS [facility] S, [facility] T VISIT HIGH/URGE NT SEVERITY EMERGENCY 15268 [place] 6 6 [facility] DEPARTMEN INC T VISIT LOW/MODER SEVERITY EMERGENCY 12571 SMILEY PASCUAL 6 6 PHYSICIAN [facility] S, [facility] T VISIT MODERATE SEVERITY OFFICE 07426 [facility] 6 6 [facility] T VISIT MEDICAL 15 G MINUTES [facility]OSP[facility] [place] - 6 6 [facility] OUTPATIEN INC T OFFICE 71211 [facility] HUMPHREY OUTPATIEN 6 6 PHYSICIAN MEAGAN T VISIT S GROUP 15 MINUTES OFFICE 46425 [facility] ISSA OUTPATIEN 6 6 PHYSICIAN JARON T VISIT S GROUP 10 MINUTES [facility] [place] - 6 6 [facility] OUTPATIEN INC T [facility] [place] - 6 6 [facility] OUTPATIEN INC T [facility] [place] [facility] 6 6 [facility] OUTPATIEN INC T EMERGENCY 28965 [place] 6 6 [facility] DEPARTMEN INC T VISIT MODERATE SEVERITY OFFICE 40837 [facility] ISSA OUTPATIEN 6 6 PHYSICIAN JARON T VISIT S GROUP 10 MINUTES OFFICE 98440 [place] ALATORRE OUTPATIEN 6 6 [facility] 10 P MINUTES OFFICE 72623 MU-ISM ANDRES OUTPATIEN 6 6 HEALTH IV HEN T VISIT MEDICAL 15 GROUP MINUTES OFFICE 06543 PERLA RODRIGUEZ TRI OUTPATIEN 6 6 GROUND T VISIT FAMILY 25 CLINI MINUTES OFFICE 66633 [facility] VISIT 5 HLTH DEPT HLTH DEPT MINUTES JAZZ JAZZ EMERGENCY 28632 SMILEY SANDHUH 6 6 PHYSICIAN TAQUERIA DALE T VISIT HIGH/URGE NT SEVERITY EMERGENCY 22224 [place] 6 6 [facility] DEPARTMEN INC T VISIT LOW/MODER SEVERITY [facility] [place] [facility] 6 6 [facility] OUTPATIEN INC T [facility] [place] - 6 6 [facility] OUTPATIEN INC T OFFICE 79164 [facility] K[facility] OUTPATIEN 6 6 PHYSICIAN JULIUS T VISIT S GROUP 25 MINUTES OFFICE 59212 [facility] SANCHEZ OUTPATIEN 6 6 T VISIT BARIATRIC 25 SURGICAL MINUTES EMERGENCY 21821 SMILEY PASCUAL 6 6 PHYSICIAN SILVIO WHEELERC T VISIT MODERATE SEVERITY OFFICE 47721 [facility] KIM[facility] OUTPATIEN 6 6 PHYSICIAN MAT Berenice NEW 45 S GROUP MINUTES [facility] [place] - 6 6 [facility] OUTPATIEN INC T OFFICE 99981 ALLERGY ROSENTHAL MAR OUTPATIEN 6 6 PARTNERS T VISIT OF [place] 40 CO MINUTES EMERGENCY 81086 SMILEY JIMENEZ 6 6 PHYSICIAN TAQUERIA HAWK T VISIT HIGH/URGE NT SEVERITY [facility] [place] [facility] 6 6 [facility] OUTPATIEN INC T EMERGENCY 95493 SMILEY PASCUAL 6 6 PHYSICIAN SILVIO WHEELERC T VISIT MODERATE SEVERITY EMERGENCY 22568 [place] 6 6 [facility] DEPARTMEN INC T VISIT LOW/MODER SEVERITY OFFICE 61888 CINTHYA RODRIGUEZ SHABANA OUTPATIEN 6 6 N T VISIT NEUROLOGY 10 MINUTES [facility] [place] [facility] 6 6 [facility] OUTPATIEN INC T EMERGENCY 94173 SMILEY SOTOMAYOR 6 6 PHYSICIAN JR BILLINGS DEPARTMEN S, PLLC T VISIT MODERATE SEVERITY [facility] [place] [facility] 6 6 [facility] OUTPATIEN INC T EMERGENCY 24080 SMILEY PASCUAL DEPT 6 6 PHYSICIAN BRYCE VISIT S, PLLC HIGH SEVERITY& THREAT FUNCJ OFFICE 41991 [place] [facility] OUTJANE [facility] 6 6 [facility] 10 P MINUTES EMERGENCY 44520 SMILEY SOTOMAYOR 6 6 PHYSICIAN JR BILLINGS DEPARTMEN S, PLLC T VISIT HIGH/URGE NT SEVERITY EMERGENCY 40811 [place] 6 6 [facility] DEPARTMEN INC T VISIT MODERATE SEVERITY [facility] [place] - 6 6 [facility] OUTPATIEN INC T OFFICE 74792 [place] WE[place] JR OUTJANE [facility] 6 6 [facility] T VISIT HOSPITAL 10 P MINUTES EMERGENCY 78762 SMILEY PASCUAL DEPT 6 6 PHYSICIAN BRYCE VISIT S, PLLC HIGH SEVERITY& THREAT FUNCJ OFFICE 57578 ALLERGY ROSENTHAL MAR CONSULTAT 6 6 PARTNERS [facility] [place] NEW/ESTAB CO PATIENT 60 MIN EMERGENCY 18211 SMILEY PASCUAL 6 6 PHYSICIAN BRYCE DEPARTMEN S, PLLC T VISIT MODERATE SEVERITY EMERGENCY 36942 SMILEY PASCUAL DEPT 6 6 PHYSICIAN BRYCE VISIT S, PLLC HIGH SEVERITY& THREAT FUNCJ [facility] [place] [facility] 6 6 [facility] OUTPATIEN INC T EMERGENCY [address] [facility] 6 6 PHYSICIAN DEPARTMEN S, PLLC T VISIT LOW/MODER SEVERITY OFFICE 51747 [facility] OUTPATIEN 6 6 PHYSICIAN T VISIT S GROUP 25 MINUTES [facility]OSP[facility] [place] [facility] 6 6 [facility] OUTPATIEN INC T EMERGENCY 19033 SMILEY PASCUAL 6 6 PHYSICIAN BRYCE DEPARTMEN S, PLLC T VISIT MODERATE SEVERITY EMERGENCY 45278 [place] 6 6 [facility] DEPARTMEN INC T VISIT LOW/MODER SEVERITY [facility] - 6 6 N OUTPATIEN COMMUNTIY T HOSPITA OFFICE 36276 [facility] OUTPATIEN 6 6 PHYSICIAN JARON T NEW 20 S GROUP MINUTES EMERGENCY 16306 SMILEY ARMIJO DEPT 6 6 PHYSICIAN CASANDRA VISIT S, [facility] HIGH SEVERITY& THREAT FUNCJ EMERGENCY 48412 SMILEY PASCUAL 6 6 PHYSICIAN [facility] DEPARTMEN S, [facility] T VISIT HIGH/URGE NT SEVERITY [facility]OSPITAL [facility] - 6 6 N OUTPATIEN COMMUNTIY T HOSPITA OFFICE [address] [facility] 6 6 T VISIT BARIATRIC 25 SURGICAL MINUTES EMERGENCY 17039 SMILEY PASCUAL DEPT 6 6 PHYSICIAN BRYCE VISIT S, [facility] HIGH SEVERITY& THREAT FUNCJ HOSPITAL [facility] - 6 6 HEALTH OUTPATIEN [place] T EMERGENCY 33589 [facility] 6 6 HEALTH DEPARTMEN [place] T VISIT MODERATE SEVERITY [facility] [place] [facility] 6 6 [facility] OUTPATIEN INC T EMERGENCY 13853 SMILEY BAGLEY DEPT 6 6 PHYSICIAN FOR VISIT S, [facility] HIGH SEVERITY& THREAT [facility] EMERGENCY 22288 [place] 6 6 [facility] DEPARTMEN INC T VISIT LOW/MODER SEVERITY [facility] [place] - 6 6 [facility] OUTPATIEN INC T EMERGENCY 27555 SMILEY PASCUAL 6 6 PHYSICIAN BRYCE DEPARTMEN S, PLLC T VISIT HIGH/URGE NT SEVERITY EMERGENCY [address] [facility] 6 6 PHYSICIAN DEPARTMEN S, PLLC T VISIT HIGH/URGE NT SEVERITY EMERGENCY 67921 CHRIS GRIGGSLEY 6 6 ROSAL[place] JOSE ANGEL DEPARTMEN EMERGENCY T VISIT PHYS HIGH/URGE NT SEVERITY [facility] - 6 6 N OUTPATIEN COMMUNTIY T HOSPITA EMERGENCY 83695 [place] DEPT 6 6 [facility] VISIT INC HIGH SEVERITY& THREAT [facility] [place] - 6 6 [facility] OUTPATIEN INC T OFFICE 38199 [facility] CONSULTAT 6 6 N ION NEUROLOGY NEW/ESTAB PATIENT 60 MIN OFFICE 59172 [place] [facility] OUTPATIEN 6 6 MATTI MATTI T NEW 30 MINUTES OFFICE 06181 SCALF LEI SCALF LEI OUTPATIEN 6 6 T VISIT 25 MINUTES EMERGENCY 83462 SMILEY PASCUAL DEPT 6 6 PHYSICIAN BRYCE VISIT S, [facility] HIGH SEVERITY& THREAT [facility] OFFICE 21859 [place] ARSLAN OUTPATIEN 6 6 [facility] T VISIT INTERNAL 15 MED MINUTES HOSPITAL MU-ISM - 6 6 HEALTH OUTPATIEN [facility] [place] - 6 6 [facility] OUTPATIEN INC T EMERGENCY 10681 SMILEY PASCUAL DEPT 6 6 PHYSICIAN BRYCE VISIT S, PLLC HIGH SEVERITY& THREAT [facility]UNC[facility] OFFICE 50877 MU-ISM [place] OUTPATIEN 6 6 HEALTH KADIE T VISIT MEDICAL 15 GROUP MINUTES OFFICE 44121 [facility] SANCHEZ MICHELLE OUTPATIEN 6 6 T VISIT BARIATRIC 25 SURGICAL MINUTES [facility] [place] - 6 6 [facility] OUTPATIEN INC T OFFICE 58192 [place] ARSLAN OUTPATIEN 6 6 [place] T VISIT INTERNAL 15 MED MINUTES INITIAL 14565 [facility] PREVENTIV 6 6 PHYSICIAN E S GROUP MEDICINE NEW PATIENT 40-64YRS OFFICE 11570 MU-ISM [place] OUTPATIEN 6 6 PRIMARY KADIE T VISIT CARE OF 15 ABISAI [facility] [place] - 6 6 [facility] OUTPATIEN INC T OFFICE 22414 [place] ARS[facility] OUTPATIEN 6 6 [place] T VISIT INTERNAL 15 MED [facility] [place] - 6 6 [facility] OUTPATIEN INC T OFFICE 51103 WENDY SANCHEZ MICHELLE OUTPATIEN 5 5 T VISIT BARIATRIC 25 SURGICAL MINUTES OFFICE 21434 ATK[facility] ATKINS OUTPATIEN 5 5 TRA TRA T VISIT 25 MINUTES PERIODIC 88518 [facility] DEPT HLTH DEPT PATIENT JAZZ JAZZ 40-64YRS OFFICE 70184 W[facility] SANCHEZ MICHELLE OUTPATIEN 5 5 T VISIT BARIATRIC 15 SURGICAL [facility] [place] - 5 5 [facility] OUTPATIEN INC T OFFICE 64400 [place] ARSL[facility] OUTPATIEN 5 5 [facility] OFELIA T NEW 30 INTERNAL MINUTES [facility] [place] - 5 5 [facility] OUTPATIEN INC T OFFICE 65733 [facility] PETTEY OUTPATIEN 5 5 PHYSICIAN JAM T VISIT S GROUP 15 MINUTES OFFICE 88210 GASTROENT CASE JUS OUTPATIEN 5 5 EROLOGY T VISIT AND 15 HEPATOL MINUTES OFFICE 05247 MU-ISM TAVARES OUTPATIEN 5 5 HEALTH KADIE T VISIT MEDICAL 10 GROUP [facility] [place] - 5 5 N OUTPATIEN [facility] 35818 [place] 5 5 [facility] DEPARTMEN INC T VISIT HIGH/URGE NT SEVERITY [facility] [place] - 5 5 [facility] OUTPATIEN INC T [facility] [place] - 5 5 N OUTPATIEN COMMUNTIY [facility] [place] - 5 5 [facility] OUTPATIEN INC T OFFICE 09211 GASTROENT CASE JUS OUTPATIEN 5 5 EROLOGY T NEW 45 AND MINUTES HEPAT [facility] [place] - 5 5 [facility] OUTPATIEN INC EMERGENCY 41109 [place] 5 5 [facility]AT [facility] DEPARTMEN INC T VISIT LOW/MODER SEVERITY OFFICE 11827 DANIEL SANCHEZ OUTPATIEN 5 5 HUBER HUBER T VISIT 15 MINUTES [facility] [place] [facility] 5 5 [facility] OUTPATIEN INC T EMERGENCY 78166 [place] 5 5 [facility] DEPARTMEN INC T VISIT MODERATE SEVERITY [facility] N OUTPATIEN COMMUNTIY [facility] - 5 5 N OUTPATIEN COMMUNTIY [facility] 5 5 N INPATIENT COMM[facility]TI[facility] [place] [facility] 5 5 [facility] OUTPATIEN INC T OFFICE 43295 WENDY MARTINEZ OUTPATIEN 5 5 T VISIT BARIATRIC 40 SURGICAL MINUTES OFFICE 53780 DANIEL SANCHEZ OUTPATIEN 5 5 HUBER HUBER T VISIT 15 MINUTES EMERGENCY 40716 [place] 5 5 [facility] DEPARTMEN INC T VISIT LOW/MODER SEVERITY [facility] [place] - 5 5 [facility] [place] [facility] 5 5 [facility] 5 5 N OUTPATIEN COMMUNTIY [facility] [place] [facility] 5 5 [facility] [place] [facility] 5 5 [facility] OUTPATIEN INC T OFFICE 67036 [place] CELI OUTPATIEN [address] MINUTES P OFFICE 52092 MELANIE NOGUEIRA OUTPATIEN 5 5 MEDICAL JAM T VISIT SERV 15 FOUNDATIO MINUTES N OFFICE 28731 [place] WEISS JR OUTPATIEN [address] MINUTES P OFFICE 96366 [facility] PETTEMago OUTPATIEN 5 5 PHYSICIAN JAM T NEW 30 S GROUP MINUTES OFFICE 86153 [facility] FALLU CONSULTAT 5 5 [facility] MED[facility] NEW/ESTAB G PATIENT 60 MIN OFFICE 31840 DANIEL TOLEDOPATINEENA 5 5 HUBER HUBER T VISIT 15 MINUTES [facility] [place] - 5 5 [facility] OUTPATIEN INC T EMERGENCY 58467 [place] 5 5 [facility] T VISIT HIGH/URGE NT SEVERITY EMERGENCY 43038 [place] ESCOTO 5 5 [facility] T VISIT P MODERATE SEVERITY EMERGENCY 89644 [place] 5 5 [facility] INC T VISIT HIGH/URGE NT SEVERITY [facility] [place] - 5 5 [facility] OUTPATIEN INC T OFFICE 05733 DANIEL CHAND 5 5 HUBER HUBER T VISIT 15 MINUTES OFFICE 94610 DANIEL CHAND 4 4 HUBER HUBER T VISIT 15 MINUTES EMERGENCY 55257 [place] WINTERS 4 4 [facility] T VISIT P LOW/MODER SEVERITY [facility] [place] - 4 4 [facility] OUTPATIEN INC T OFFICE 53623 DANIEL CHAND 4 4 HUBER HUBER T VISIT 15 MINUTES [facility] [place] - 4 4 [facility] OUTPATIEN INC T EMERGENCY [address] [facility] 4 4 ROSALEE VISIT EMERGENCY HIGH PHYS SEVERITY& THREAT [facility] - 4 4 N OUTPATIEN COMMUNITY T HOSPITA OFFICE 44313 DANIEL CHAND 4 4 HUBER HUBER T VISIT 15 MINUTES OFFICE 10157 MONALISA CHAPIN CONSULTAT 4 4 KADIE ION CARDIOLOG NEW/ESTAB Y AT CENT PATIENT 40 MIN OFFICE 27050 MELANIE NOGUEIRA CONSULTAT 4 4 MEDICAL JAM ION SERV NEW/ESTAB FOUNDATIO PATIENT N 60 MIN [facility] [place] [facility] 4 4 [facility] [place] - 4 4 [facility] OUTPATI[facility] INC T OFFICE 14649 DANIEL CHAND 4 4 HUBER HUBER T VISIT 15 MINUTES OFFICE 97045 ATKINS ATKINS CONSULTAT 4 4 TRA TRA ION NEW/ESTAB PATIENT 40 MIN OFFICE 57401 [facility] 4 4 [facility] T VISIT MEDICAL 15 G MINUTES [facility] [place] [facility] 4 4 [facility]PATI[facility] INC T OFFICE 12224 [facility] FALLUJI OUTPATIEN 4 4 [facility] T NEW 30 MEDICAL MINUTES G EMERGENCY [address] [facility] DEPT 4 4 ROSALEE MOH VISIT EMERGENCY HIGH PHYSI SEVERITY& THREAT [facility] [place] - 4 4 [facility] OUTPATIEN INC T EMERGENCY 85335 HORTENCIA HUGHES DEPT 4 4 VISIT HIGH SEVERITY& THREAT FUN EMERGENCY 07750 [place] 4 4 [facility] DEPARTMEN INC T VISIT MODERATE SEVERITY EMERGENCY 39504 ANKUR PASCUAL DEPT 4 4 BRYCE BRYCE VISIT HIGH SEVERITY& THREAT [facility] [place] - 4 4 [facility] OUTPATIEN INC T OFFICE 15200 DANIEL SANCHEZ OUTPATIEN 4 4 HUBER HUBER T VISIT 15 MINUTES EMERGENCY 74528 [place] 4 4 [facility] DEPARTMEN INC T VISIT HIGH/URGE NT SEVERITY OFFICE 61798 SANCHEZ [facility] MICHELLE CONSULTAT 4 4 ION NEW/ESTAB PATIENT 80 MIN OFFICE 28034 DANIEL SANCHEZ OUTPATINEENA 4 4 HUBER HUBER T NEW 30 MINUTES [facility] [place] - 4 4 [facility] OUTPATIEN INC T OFFICE 95390 MAEGAN ISSA OUTPATIEN 4 4 JARON JARON T VISIT 5 MINUTES OFFICE 91024 MAEGAN ISSA OUTPATINEENA 4 4 JARON JARON T NEW 30 MINUTES Emergency PATRIC Burnett MD (ER) 4 16:35 4 17:31 [facility] Emergency PATRIC BURNETT (ER) 3 16:45 3 18:19 [facility] [place] - 9 9 [facility] OUTPATIEN INC T EMERGENCY 47779 KIMBERLEE PASCUAL, 9 9 [facility] T VISIT ON HIGH/URGE NT SEVERITY EMERGENCY 48150 [place] 9 9 [facility] DEPARTMEN INC T VISIT LOW/MODER SEVERITY
--- OUTSIDE RECORDS SUMMARY | 2017-06-20 20:02 | External Medical Summary Rpt ---
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 Role Phone ALFARIS MOH, ALFARIS Unavailable Unavailable MOH [facility] Un[facility]available [place], [facility] [place] YVETTE JURADO MD, PSC, Unavailable Unavailable YVETTE JURADO MD, PSC ARNOLD HUBER, ARNOLD Unavailable Unavailable HUBER ARNOLD HUBER, ARNOLD Unavailable Unavailable HUBER ATKINS TRA, ATKINS Unavailable Unavailable TRA ATKINS TRA, ATKINS Unavailable Unavailable TRA MICHELLE ALI, MICHELLE Unavailable Unavailable ALI [facility] Unavailable Unavailable [facility] Unavailable Unavailable [facility]ICAL GROUP, [facility] Un[facility] Unavailable [facility], [facility] Unavailable Unavailable OF [facility], [facility] BUCHANAN, BEMICHAEL Unavailable Unavailable BEINEKE CARMEN, BEINEKE Unavailable Unavailable CARMEN BESSON, BESSON Unavailable Unavailable BESSON DOMINIQUE, BESSON Unavailable Unavailable DOMINIQUE [facility] Unavailable Unavailable SUR[facility]ICAL, [facility] BOLIEK KADIE, BOLIEK Unavailable Unavailable KADIE CERRATO, CERRATO Unavailable Unavailable CERRATO ALL, CERRATO ALL Unavailable Unavailable [facility] Unavailable [facility]available [facility] Unavailable Unavailable SERVICE, [facility] Unavailable Unavailable SERVICE, [facility] BUX, BUX Unavailable Unavailable [facility] [...] AND Unavailable Unavailable [facility], [facility] Unavailable Unavailable HOSPITA, [facility] Unavailable [facility]available HOSPITA, [facility] RODRIGUEZ TRI, RODRIGUEZ TRI Unavailable Unavailable ANDREWS RHO, ANDREWS Unavailable Unavailable [facility] Unavailable Unavailable CENTER, [facility] Unavailable Unavailable INC, [facility] Un[facility] Un[facility] P, [facility] P BOYER CHRISTEL, BOYER CHRISTEL Unavailable Unavailable BOYER CHRISTEL, BOYER CHRISTEL Unavailable Unavailable [facility], Unavailable Unavailable [facility] JAQUEZ, JAQUEZ Unavailable Unavailable VAUGHN TERA, VAUGHN Unavailable Unavailable TERA ADAMS, ADAMS Unavailable Unavailable ILUYOMADE ROT, Unavailable Unavailable ILUYOMADE ROT FELICIA, DUARTE Unavailable Unavailable [facility] Unavailable GROUP PS, [facility] Un[facility], [facility] Unavailable Unavailable MEDICAL G, [facility] ELYSSA BURNETT, Unavailable Unavailable ELYSSA [...] JR DW[facility] Unavailable Unavailable SPECIALISTS,, [facility], [facility] Unavailable Unavailable INTERNAL MED, [facility] BRITTNY, BRITTNY Unavailable Unavailable BRITTNY [...] #591 WALKER FOR, WALKER Unavailable Unavailable FOR [facility] Unavailable Unavailable DEPT [facility], [facility] DEPT [facility] Unavailable Unavailable DEPT JAZZ, [facility] SANCHEZ, SANCHEZ Unavailable Unavailable SANCHEZ MICHELLE, SANCHEZ MICHELLE Unavailable Unavailable WELLS ELLEN, WELLS ELLEN Unavailable Unavailable WELLS SHA, WELLS SHA Unavailable Unavailable ROSENTHAL MAR, ROSENTHAL MAR Unavailable Unavailable SARAH KADIE, SARAH KADIE Unavailable Unavailable Purpose Continuity of Care Document - 01-04-2009 through 2016 Problems Code Diagnosis DOS Provider Status K219 GASTRO-ESOP 05-19-2017 [facility] WITHOUT ESOPHAGITIS R1310 DYSPHAGIA 05-19-2017 [facility] Z9884 BARIATRIC 05-19-2017 [facility] STATUS CTR J069 ACUTE UPPER 05-05-2017 [facility] RESPIRATORY INC INFECTION UNSPECIFIED R072 PRECORDIAL 05-05-2017 [facility] , E785 HYPERLIPIDE 05-04-2017 [facility] P R0789 OTHER CHEST 05-04-2017 [facility] PAIN PHYSICIANS, [facility] R079 CHEST PAIN 05-04-2017 [facility] P Z809 FAMILY 05-04-2017 [facility] OF [facility] MALIGNANT INC NEOPLASM UNSPECIFIED Z8249 FAMILY HX 05-04-2017 [facility] ISCHEMIC [facility] HRT DZ [facility] CIR[facility] SYSTEM Z833 FAMILY 05-04-2017 [facility] OF [facility] P MELLITUS U77053 ENCOUNTER 04-30-2017 [facility] CARIOVASCUL AR EXAM Z14421 ENCOUNTER 04-30-2017 [facility] LABORATORY EXAM B977 PAPILLOMAVI 04-29-2017 [facility] OF DZ CLASSIFIED ELSEWHERE E7800 PURE 04-29-2017 [facility] HYPERCHOLES VALLEY TEROLEMIA INTERNAL UNSPECIFIED MED J309 ALLERGIC 04-29-2017 [facility] RHINITIS VALLEY UNSPECIFIED INTERNAL MED M797 FIBROMYALGI 04-29-2017 [facility] A VALLEY INTERNAL MED N870 MILD 04-29-2017 [facility], [facility] DYSPLASIA J29534 ATYP SQ 04-29-2017 [facility] CELLS UNDET PHYSICIANS GROUP SIGNIFICANC E CYTOL SMER CERV X76685 CERV HIGH 04-29-2017 [facility]UMAN PHYSICIANS PAPILLOMAVI GROUP RAJ DNA TEST POS 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 [place] C97776 DECREASED 04-09-2017 [facility] WHITE BLOOD [facility] CELL COUNT [facility] P UNSPECIFIED K449 DIAPHRAGMAT 04-08-2017 [facility] HERNIA HEALTH W/O MEDICAL OBSTRUCTION GROUP OR GANGRENE R110 NAUSEA 04-08-2017 [facility] R1319 OTHER 04-08-2017 [facility] DYSPHAGIA [facility] [id number] SPONDYLOSIS 04-07-2017 YVETTE JURADO, W/O MD, PSC MYELOPATH/R ADICULOPATH Y LUMB RGN M479 SPONDYLOSIS 04-07-2017 [facility] HOSP UNSPECIFIED INC 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-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, PSC RAL DISC DEGEN LUMBAR REGION R202 PARESTHESIA 04-07-2017 [facility] OF SKIN [place] INTERNAL MED J320 CHRONIC 04-02-2017 [facility] MAXILLARY [facility] SINUSITIS INC R350 FREQUENCY 03-27-2017 [facility] P R3915 URGENCY OF 03-27-2017 [facility] URINATION [facility] P R200 ANESTHESIA 03-25-2017 [facility] SKIN MEDICAL IMAGING ASS R42 DIZZINESS 03-25-2017 [facility] GIDDINESS IMAGING ASS R51 HEADACHE 03-25-2017 [facility] HOS[facility] INC D709 NEUTROPENIA 03-24-2017 [facility] P [id number] ADVERSE EFF 03-22-2017 [facility] SHERIFF, ALEXANDER PLLC DS SYNTH ANALOG INIT ENC Q25251P ADVERS EFF 03-22-2017 [facility] OT RX MEDS [facility] BIO INC SUBSTANCES INIT ENC J34408 OTHER 03-21-2017 [facility] SPONDYLOSIS [facility] LUMBAR INC REGION M5116 INTERVERTEB 03-21-2017 [facility] RAL DISC [facility] D/O INC W/RADICULOP ATHY LUMB RGN J31124 ENCOUNTER 03-19-2017 [facility], [facility]PL[facility] LLC GENERAL RTN W/ABNORMAL FIND M91163 ENCOUNTER 03-19-2017 [facility] BLUE SPLIT TRIMMER EXAM PHYSICIANS GENERAL RTN GROUP W/O ABNORMAL FIND H6982 OTHER SPEC 03-13-2017 [facility] DISORDERS PHYSICIANS EUSTACHIAN GROUP TUBE LT EAR 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[facility] UNI LT EAR PHYSICIANS UNRESTIRCT GROUP CONTRALAT SIDE R300 DYSURIA 03-12-2017 [facility]ICIANS, PLLC M4726 OTH 03-03-2017 [facility] SPONDYLOSIS [facility] INC W/RADICULOP ATHY LUMBAR REGION N390 URINARY 03-03-2017 [facility] TRACT [facility] INFECTION INC SITE NOT SPECIFIED R911 SOLITARY 02-27-2017 [facility] PULMONARY MEDICAL NODULE IMAGING ASS Z09 ENC F/U 02-27-2017 [place] EXAM AFTR MEDICAL CMPL TX OTH IMAGING ASS THAN MALIG NEOPLSM E669 OBESITY 02-25-2017 [facility] UNSPECIFIED PHYSICIANS GROUP I119 HYPERTENSIV 02-25-2017 [facility] E HEART PHYSICIANS DISEASE GROUP WITHOUT HEART FAILURE R0600 DYSPNEA 02-25-2017 [facility] UNSPECIFIED PHYSICIANS GROUP [id number] PAIN IN 02-18-2017 [facility] LEFT [facility] SHOULDER INC M5440 LUMBAGO 02-18-2017 [facility] WITH [facility] SCIATICA INC UNSPECIFIED SIDE J310 CHRONIC 02-17-2017 [facility] RHINITIS PHYSICIANS GROUP J329 CHRONIC 02-17-2017 [facility] SINUSITIS PHYSICIANS UNSPECIFIED GROUP J342 DEVIATED 02-17-2017 [facility] NASAL PHYSICIANS SEPTUM GROUP M5416 RADICULOPAT 02-17-2017 [facility] HY LUMBAR [facility] REGION INC M545 LOW BACK 02-17-2017 YVETTE JURADO, PAIN , PSC K5900 CONSTIPATIO 02-14-2017 [facility] MEDICAL UNSPECIFIED IMAGING ASS I998 OTHER 02-11-2017 [facility] DISORDER OF [facility] INC CIRCULATORY SYSTEM R0602 SHORTNESS 02-11-2017 [facility] OF BREATH [facility] INC G8929 OTHER 02-10-2017 [facility] CHRONIC VALLEY PAIN INTERNAL MED R002 PALPITATION 01-31-2017 [facility] S PHYSICIANS GROUP R5383 OTHER 01-31-2017 [facility] FATIGUE PHYSICIANS GROUP M792 NEURALGIA 01-27-2017 [facility] AND VALLEY NEURITIS INTERNAL UNSPECIFIED MED I10 ESSENTIAL 01-26-2017 [facility] PRIMARY [facility] HYPERTENSIO INC N M542 CERVICALGIA 01-26-2017 [facility] INC [id number] SPONDYLOSIS 01-22-2017 [place] W/O MEDICAL MYELOPATH/R IMAGING ASS ADICULOPATH Y CERV RGN R763CHL STRAIN 01-22-2017 [facility] MUSCLE FASC PHYSICIANS, & TENDON PLLC NECK LEVL INIT ENC E559 VITAMIN D 01-21-2017 [facility] DEFICIENCY [facility] UNSPECIFIED INC [id number] STRAIN 01-16-2017 [facility] MUSCLE & PHYSICIANS, TENDON UNS PLLC WALL THORAX INIT ENC P88630 OTHER LONG 01-11-2017 [facility]RENT [facility] DRUG THERAPY Z882 ALLERGY 01-11-2017 [facility] STATUS TO [facility]IDE [facility] S STATUS Z886 ALLERGY 01-11-2017 [facility] ANALGESIC [facility] AGENT STATUS Z888 ALLERGY 01-11-2017 [facility] STATUS OTH COMM[facility]ITY RX MEDS & HOSPITAL BIOLOG SUBSTAN STS H9203 OTALGIA 01-10-2017 [facility] BILATERAL [facility] INC I209 ANGINA 01-10-2017 [facility] PECTORIS [facility] UNSPECIFIED INC R071 CHEST PAIN 01-07-2017 [facility] ON [facility] INTERNAL MED Z720 TOBACCO USE 01-04-2017 [facility] INC [id number] MUSCLE 12-25-2016 [facility] SPASM OF [facility] BACK INC R1013 EPIGASTRIC 12-25-2016 [facility] PAIN [place] INTERNAL MED R4702 DYSPHASIA 12-25-2016 [facility] [place] INTERNAL MED B078 OTHER VIRAL 12-23-2016 [facility] WARTS K30 FUNCTIONAL 12-23-2016 [facility] DYSPEPSIA [facility] L218 OTHER 12-23-2016 [facility] SEBORRHEIC DERMATITIS L538 OTHER 12-23-2016 [facility] SPECIFIED ERYTHEMATOU S CONDITIONS R208 OTHER 12-23-2016 [facility] DISTURBANCE S OF SKIN SENSATION R238 OTHER SKIN 12-23-2016 [facility] CHANGES K5903 DRUG 12-17-2016 [facility] INDUCED [facility] CONSTIPATIO INC N U602X1N ADVERSE 12-17-2016 [facility] EFFECT [facility] OTHER INC OPIOIDS INITIAL ENCOUNTER K910 VOMITING 12-12-2016 [facility] FOLLOWING [facility] GASTROINTES INC TINAL SURGERY R600 LOCALIZED 12-12-2016 [facility] EDEMA [facility]IC[facility], [facility] R609 EDEMA 12-12-2016 [facility] UNSPECIFIED [facility] INC W69359 OTHER 12-12-2016 [place] SPECIFIED MEDICAL POSTPROCEDU IMAGING ASS [facility] E6601 MORBID 12-11-2016 [facility] SEVERE HEALTH OBESITY DUE MONALISA TO EXCESS CALORIES N393 STRESS 12-11-2016 [facility] INCONTINENC HEALTH E FEMALE MONALISA MALE Z903 ACQUIRED 12-11-2016 [facility] ABSENCE OF HEALTH STOMACH MONALISA Y10498 ENCOUNTER 12-05-2016 [facility] FOR OTHER HEALTH PREPROCEDUR MEDICAL AL GROUP EXAMINATION K210 GASTRO-ESOP 11-22-2016 [facility] HAGEAL PHYSICIANS, REFLUX PLLC DISEASE W/ ESOPHAGITIS K625 HEMORRHAGE 11-19-2016 [facility] OF ANUS AND VALLEY RECTUM INTERNAL MED M546 PAIN IN 11-08-2016 [facility] THORACIC PHYSICIANS, SPINE PLLC Y12025 PAIN IN 10-14-2016 [place] UNSPECIFIED MEDICAL HIP IMAGING ASS M533 SACROCOCCYG 10-14-2016 [place] EAL MEDICAL DISORDERS IMAGING ASS NEC V139UTN CONTUSION 10-14-2016 [facility] LOWER BACK PHYSICIANS, & PELVIS PLLC INITIAL ENCOUNTER V6849RG UNSPECIFIED 10-14-2016 [place] INJURY MEDICAL LOWER BACK IMAGING ASS INITIAL ENCOUNTER A9793YS UNSPECIFIED 10-14-2016 [place] INJURY OF MEDICAL PELVIS IMAGING ASS INITIAL ENCOUNTER H3581 RETINAL 10-11-2016 [facility] ANG EDEMA R040 EPISTAXIS 10-10-2016 [facility] [place] INTERNAL MED E6609 OTHER 10-08-2016 [facility] OBESITY DUE BARIATRIC TO EXCESS SURGICAL CALORIES R109 UNSPECIFIED 10-08-2016 [facility] ABDOMINAL BARIATRIC PAIN SURGICAL J3489 OTHER 10-06-2016 [facility] SPECIFIED PHYSICIANS, DISORDERS PLLC NOSE AND NASAL SINUSES R05 COUGH 10-06-2016 [facility] R0981 NASAL 10-06-2016 [place] CONGESTION MEDICAL IMAGING ASS A6004 HERPESVIRAL 09-27-2016 [facility] PHYSICIANS VULVOVAGINI GROUP TIS N760 ACUTE 09-27-2016 [facility] VAGINITIS PHYSICIANS GROUP [id number] CONCUSSION 09-21-2016 [facility] WITHOUT LOC [facility] INITIAL INC ENCOUNTER E5085GT UNSPECIFIED 09-21-2016 [place] INJURY OF MEDICAL HEAD IMAGING ASS INITIAL ENCOUNTER H6903 PATULOUS 09-19-2016 [facility] JARON EUSTACHIAN TUBE BILATERAL N74591 UNSPECIFIED 09-18-2016 [facility] PHYSICIANS OBSTRUCTION GROUP EUSTACHIAN TUBE BILAT R590 LOCALIZED 09-04-2016 [facility] L[facility]MPH [facility] P Z6834 BODY MASS 09-04-2016 [facility] INDEX BMI HEALTH 34.0-34.9 MEDICAL ADULT GROUP K5909 OTHER 09-03-2016 [facility] CONSTIPATIO GROUND N FAMILY CLINI R112 NAUSEA WITH 09-03-2016 [facility] VOMITING GROUND UNSPECIFIED FAMILY CLINI R748 ABNORMAL 09-03-2016 [facility] LEVELS OF GROUND OTHER SERUM FAMILY ENZYMES CLINI Z111 ENCOUNTER 09-02-2016 [facility] S[facility] DEPT RESPIRATORY JAZZ TUBERCULOSI S M549 DORSALGIA 09-01-2016 [facility] UNSPECIFIED PHYSICIANS, PLL R197 DIARRHEA 09-01-2016 [facility] UNSPECIFIED PHYSICIANS, PLL Q26501B ADVERSE 09-01-2016 [facility] P SRI INITIAL ENCOUNTER F04967 UNS PLACE 09-01-2016 [facility] P [facility] OF OCCUR EXT R195 OTHER FECAL 08-30-2016 [facility] ABNORMALITI INC ES R5381 OTHER 08-29-2016 [facility] MALAISE PHYSICIANS GROUP R9431 ABNORMAL 08-29-2016 [facility] ELECTROCARD PHYSICIANS IOGRAM GROUP N87100 LYMPHOCYTOP 08-21-2016 [facility] ENIA [facility] INC J3089 OTHER 08-21-2016 [facility] RHINITIS [place] J4520 MILD 08-21-2016 [facility] INTERMITTEN PARTNERS OF T ASTHMA [place] UNCOMPLICAT ED X781HUD OTHER 08-21-2016 [facility] ADVERSE PARTNERS OF FOOD [place] REACTIONS NEC SUBSEQUENT ENC M791 MYALGIA 08-17-2016 [facility] PHYSICIANS, [facility] M898X9 OTHER 08-12-2016 [place] SPECIFIED MEDICAL DISORDERS IMAGING ASS BONE UNSPECIFIED SITE R599 ENLARGED 08-12-2016 [facility] LYMPH NODES [facility] INC UNSPECIFIED R1314 DYSPHAGIA 08-10-2016 [facility] PHARYNGOESO PHYSICIANS, PHAGEAL [facility] PHASE R5382 CHRONIC 08-07-2016 [facility] FATIGUE [facility] UNSPECIFIED INC J301 ALLERGIC 08-05-2016 [facility] RHINITIS PARTNERS OF DUE TO [place] POLLEN J3081 ALLERG 08-05-2016 [facility] RHINITIS PARTNERS OF D/T ANIMAL [place] CAT DOG HAIR & DANDER R591 GENERALIZED 08-05-2016 [facility] L[facility]MPH [facility] P I208 OTHER FORMS 08-02-2016 [facility] OF ANGINA [facility] PECTORIS [facility] P J71813 PAIN IN 08-02-2016 [facility] RIGHT KNEE MEDICAL IMAGING ASS R55 SYNCOPE AND 08-02-2016 [facility] COLLAPSE PHYSICIANS, [facility] P381SIT UNSPECIFIED 08-02-2016 [place] INJURY OF MEDICAL NECK IMAGING ASS INITIAL ENCOUNTER A1889YQ UNS INJURY 08-02-2016 [place] RT LOWER MEDICAL LEG INITIAL IMAGING ASS ENCOUNTER N281 CYST OF 08-01-2016 [facility] KIDNEY [facility] P C84101 OTHER 07-31-2016 [place] [facility] ASTHMA EQUIPMENT INC R209 UNSPECIFIED 07-29-2016 [facility] PHYSICIANS, DISTURBANCE PLLC S OF SKIN SENSATION K589 IRRITABLE 07-24-2016 [facility] BOWEL PHYSICIANS SYNDROME GROUP WITHOUT DIARRHEA R102 PELVIC AND 07-24-2016 [facility] PERINEAL PHYSICIANS PAIN GROUP N831 CORPUS 07-22-2016 [facility] LUTEUM CYST PHYSICIANS GROUP N920 EXCESS & 07-22-2016 [facility] FREQUENT PHYSICIANS MENSTRUATIO GROUP N W/REGULAR CYCLE X03661O STRAIN UNS 07-22-2016 [facility] MUSCLE FASC PHYSICIANS, TEND THIGH PLLC RT INITIAL ENC Z7251 HIGH RISK 07-22-2016 [facility] R12 HEARTBURN 07-18-2016 [facility] H9[facility]9 OTHER 07-17-2016 [facility] SPECIFIED PHYSICIANS DISORDERS GROUP OF EAR UNSPECIFIED EAR J302 OTHER 07-17-2016 [facility] SEASONAL PHYSICIANS ALLERGIC GROUP RHINITIS Y6896VW LACERATION 07-13-2016 [facility] W/O FOREIGN PHYSICIANS, BODY SCALP PLLC INITIAL ENC K4160JH SPRAIN 07-13-2016 [facility] UNSPECIFIED PHYSICIANS, SITE LT PLLC KNEE INITIAL ENCNTR R6889 OTHER 07-10-2016 [facility] AND SIGNS E780 PURE 07-09-2016 [facility] HYPERCHOLES BARIATRIC TEROLEMIA SURGICAL E876 HYPOKALEMIA 07-09-2016 [facility] P Z1231 ENCOUNTER 07-08-2016 [place] SCREENING MEDICAL MAMMO MALIG IMAGING ASS NEOPLASM BREAST H6990 UNSPECIFIED 07-07-2016 [facility] TUBE PHYS PSC DISORDER UNS EAR H938X3 OTHER 07-07-2016 [facility] SPECIFIED HEALTH DISORDERS [place] OF EAR BILATERAL M5432 SCIATICA 07-07-2016 [facility] LEFT SIDE EMERGENCY PHYS PSC R1010 UPPER 07-05-2016 [facility] ABDOMINAL PHYSICIANS, PAIN PLLC UNSPECIFIED R1084 GENERALIZED 06-29-2016 [facility] ABDOMINAL PHYSICIANS, PAIN PLLC I880 NONSPECIFIC 06-27-2016 [facility] MESENTERIC PHYSICIANS, PLLC LYMPHADENIT IS R100 ACUTE 06-27-2016 [facility] ABDOMEN AMBULANCE SERVICE R1031 RIGHT LOWER 06-26-2016 [facility] PAIN PHYS D23344 RIGHT LOWER 06-26-2016 [facility] COMMUNTIY ABDOMINAL HOSPITA TENDERNESS N200 CALCULUS OF 06-24-2016 [place] KIDNEY MEDICAL IMAGING ASS 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 06-11-2016 [...] EXPS TO NONIONIZING RAD R9439 ABNORMAL 04-08-2016 [facility] RESULT OT HEALTH CARDIOVASCU MEDICAL LR FUNCTION [...] VALLEY IES NOT INTERNAL ELSEWHERE MED CLASSIFIED 82174 UNSPECIFIED 07-11-2015 [facility] TRA VIRAL WARTS 2167 [...] SKIN 7020 ACTINIC 07-11-2015 [facility] KERATOSIS 05347 INFLAMED 07-11-2015 [facility] SEBORRHEIC KERATOSIS V700 ROUTINE 06-27-2015 [facility] DEPT EXAM@[facility] CARE FACL 96739 MORBID 06-20-2015 [facility] OBESITY BARIATRIC SURGICAL 83113 PAIN IN 06-20-2015 [facility] JOINT, SITE [facility] UNSPECIFIED 7823 EDEMA 06-20-2015 [facility] 45466 OTHER 06-20-2015 [facility] DYSPNEA AND [facility] RESPIRATORY ABNORMALITI ES 7871 HEARTBURN 06-20-2015 [facility] 7904 NONSPEC 06-20-2015 [facility] ELEVATION BARIATRIC OF LEVELS SURGICAL OF TRANSAMINAS E/LDH V4586 BARIATRIC 06-20-2015 [facility] SURGERY BARIATRIC STATUS SURGICAL V7612 OTHER 06-19-2015 [place] SCREENING MEDICAL MAMMOGRAM IMAGING ASS 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 MED 2689 UNSPECIFIED 06-12-2015 [facility] VITAMIN D VAL[facility] DEFICIENCY INTERNAL MED 5718 OTHER 06-12-2015 [facility] CHRONIC VALLEY NONALCOHOLI INTERNAL C LIVER MED DISEASE 7905 OTHER 06-12-2015 [facility] NONSPECIFIC VALLEY ABNORMAL INTERNAL SERUM MED ENZYME LEVELS 69667 UNSPEC 05-09-2015 [facility] DISORDERS PHYSICIANS BURSAE&TEND GROUP ONS SHOULDER REGION 7262 OTHER 05-09-2015 [facility] AFFECTIONS PHYSICIANS OF SHOULDER GROUP REGION NEC 50562 OBESITY, 05-04-2015 [facility] UNSPECIFIED OLOGY AND HEPATOL 3674 PRESBYOPIA 04-28-2015 [place] 32116 CHEST PAIN 04-28-2015 [facility] UNSPECIFIED HEALTH MEDICAL GROUP 14774 ABDOMINAL 04-25-2015 [facility] PAIN, COMMUNTIY UNSPECIFIED HOSPITA SITE 4019 UNSPECIFIED 04-16-2015 [facility] ESSENTIAL [facility] HYPERTENSIO INC N 5990 URINARY 04-16-2015 [facility] TRACT PHYSICIANS, INFECTION [facility] SITE NOT SPECIFIED 7948 NONSPECIFIC 04-16-2015 [facility] ABNORMAL [facility] RESULTS INC LIVR FUNCTION STUDY 5739 UNSPECIFIED 04-14-2015 [facility] [place] DISORDER RADIOLOGY OF LIVER 7906 OTHER 04-14-2015 [facility] ABNORMAL COMMUNTIY BLOOD HOSPITA CHEMISTRY 5939 UNSPECIFIED 04-06-2015 [place] DISORDER MEDICAL OF KIDNEY IMAGING ASS AND URETER 7891 HEPATOMEGAL 04-06-2015 [facility] Y OLOGY AND HEPATOL V140 PERSONAL 04-05-2015 [facility] HISTORY OF [facility] ALLERGY TO HOSPITAL P PENICILLIN 03301 ABDOMINAL 04-03-2015 [facility] HUBER PAIN, GENERALIZED 5758 OTHER 04-01-2015 [facility] SPECIFIED [facility] DISORDER OF HOSPITAL P GALLBLADDER 41676 OTHER 04-01-2015 [facility] SPECIFIED MEDICAL DISORDER OF IMAGING ASS KIDNEY AND URETER 94301 ABDOMINAL 04-01-2015 [place] PAIN RIGHT MEDICAL UPPER IMAGING ASS QU[facility]ANT 60393 ABDOMINAL 04-01-2015 [place] PAIN, [facility] EPIGASTRIC HOSPITAL P 7295 PAIN IN 03-29-2015 [facility] SOFT COMMUNTIY TISSUES OF HOSPITA LIMB V4589 OTHER 03-29-2015 [facility] POSTSURGICA COMMUNTIY L STATUS HOSPITA OTHER 41287 OTHER 03-24-2015 [facility] MALAISE AND [facility] FATIGUE HOSPITA V6700 FOLLOW-UP 03-21-2015 [facility] [place] EXAMINATION RADIOLOGY FOLLOWING UNSPEC SURGERY 69144 ESOPHAGEAL 03-20-2015 [place] [facility] PS 6256 FEMALE 03-20-2015 [facility] STRESS [facility] INCONTINENC HOSPITA E 50909 PAIN IN 03-20-2015 [facility] JOINT, BARIATRIC MULTIPLE SURGICAL SITES 30125 DIASTASIS 03-20-2015 [facility] OF MUSCLE [facility]UNTIY HOSPITA 7892 SPLENOMEGAL 03-20-2015 [facility] Y COMMUNTIY HOSPITA V8543 BODY MASS 03-20-2015 [facility] INDEX COMMUNTIY 50.0-59.9 HOSPITA ADULT 2639 UNSPECIFIED 03-14-2015 [facility] PROTEIN-TEA HOSPITA ORIE MALNUTRITIO N 43290 MIGRAINE 03-07-2015 [facility] UNSP W/O BARIATRIC 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 MIGRAINOSUS 03549 OTHER 03-07-2015 [facility] URINARY BARIATRIC INCONTINENC SURGICAL E 6929 CONTACT 03-06-2015 [facility] DERMATITIS& OTHER ECZEMA DUE UNSPEC CAUSE 6822 CELLULITIS 03-02-2015 [place] AND [facility]SCESS [facility] P V148 PERSONAL 03-02-2015 [place] HISTORY [facility] ALLERGY OT HOSPITAL P SPEC MEDICINAL AGTS V571 OTHER 02-22-2015 [place] PHYSICAL MEM HOSP THERAPY INC 2724 OTHER AND 02-20-2015 [facility] UNSPECIFIED COMMUNTIY HOSPITA HYPERLIPIDE LILIANE 7245 UNSPECIFIED 02-20-2015 [facility] BACKACHE COMMUNTIY HOSPITA V7283 OTHER 02-20-2015 [facility] SPECIFIED COMM[facility]TIY PRE-OPERATI HOSPITA VE EXAMINATION 2875 UNSPECIFIED 02-15-2015 [facility]IA 7932 NONSPC ABN 02-10-2015 [place] [facility] SERV RAD&OTH FOUNDATION EXAM OTH INTRTHOR ORGN V7282 PRE-OPERATI 02-10-2015 [place] [facility] SERV RESPIRATORY FOUNDATION EXAMINATION 5930 NEPHROPTOSI 02-09-2015 [facility] P 7802 SYNCOPE AND 02-01-2015 [facility] MEDICAL G 4139 OTHER AND 01-18-2015 [place] UNSPECIFIED [facility] P PECTORIS 26643 SHORTNESS 01-18-2015 [facility] MEDICAL IMAGING ASS 44347 OTHER CHEST 01-18-2015 [facility] P 27498 OSTEOARTHRO 12-30-2014 [facility] S INVLV MX SITES BUT NOT SPEC GEN 48997 PAIN IN 11-09-2014 [place] JOINT, MEDICAL SHOULDER IMAGING ASS REGION V5832 ENCOUNTER 11-09-[address] [place] [address] [facility] P 16343 PILAR CYST 11-02-2014 [facility] 25355 UNSPECIFIED 10-06-2014 [facility] INFE[facility] PHYS IN CCE & UNS SITE 7840 HEADACHE 10-06-2014 [place] [facility] 56314 ATROPHIC 09-16-2014 [facility] GASTR[facility] WITHOUT HOSPITA MENTION OF HEMORRHAGE 01865 OTHER SPEC 09-16-2014 [facility] WITHOUT MENTION HEMORRHAGE 60704 DYSPHAGIA 09-16-2014 [place] UNSPECIFIED ANESTHESIA GROUP PS 6869 UNSPEC 08-17-2014 [facility] LOCAL INFECTION SKIN&SUBCUT ANEOUS TISSUE V7284 UNSPECIFIED 08-09-2014 [facility] HOSP PRE-OPERATI INC VE EXAMINATION 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 E885.9 E885.9 FALL 12-31-2013 [place] FROM [facility], Hospital TRIPPING, OR STUMBLING [facility] V14.0 V14.0 12-31-2013 [place] HX-PENICILL [facility] IN ALLERGY Hospital V14.1 V14.1 12-31-2013 [place] HX-ANTIBIOT [facility] V01.6 V01.6 01-11-2013 [place] VENEREAL [facility] DIS CONTACT Hospital V0481 NEED 01-06-2009 DHS/CO PROPHYLACTI HEALTH C CENTRAL VACCINATION BANK ACCT &INOCULATIO N FLU 42969 PAIN IN 01-04-2009 [place] [facility] THIGH 61127 DISPLCMT 01-04-2009 [place] LUMBAR [facility]ICAL INTERVERT 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 8460 SPRAIN AND 01-04-2009 [facility] LUMBOSACRAL Isotera 8472 LUMBAR 01-04-2009 [place] [facility] STRAIN INC 45912 CONTUSION 01-04-2009 [facility] BACK Gaudena 80604 CONTUSION 01-04-2009 [facility] BUTTOCK [address]audena E[address]90 PL[address] OF 01-04-2009 [place] OCCURRENCE, [facility] E8859 FALL FROM 01-04-2009 [place] OTHER MEDICAL SLIPPING IMAGING TRIPPING OR ASSOCIATES [...] 17 79 PH E 6 94 AR [place] MA OP CY 50 MC G SP [...] YL 15 2- 7- 00 01 ve [place] 02 20 20 18 AI ED 20 [...] 43 ZA 60 17 17 25 PH [place] 1 00 AR IN MA E CY [...] 17 79 PH E 6 94 AR [place] MA OP CY 50 MC G SP [...] 17 79 PH E 6 94 AR [place] MA OP CY 50 MC G SP [...] 42 ZA 60 17 17 82 PH [place] 1 16 AR IN MA E CY [...] 42 ZA 60 17 17 59 PH [place] 1 23 AR IN MA E CY [...] 1 70 PH CE AR TA MA NH CY NO PH #3 93 7. 8 [...] L CY 4 MG TA BL ET [place] 65 03 03 20 5 00 CL [...] 10 7- 1- 00 00 IC ve NH 47 20 20 42 01 17 17 [...] 17 53 PH E 6 48 AR [place] MA OP CY 50 MC G SP [...] 42 ZA 60 17 17 30 PH [place] 1 05 AR IN MA E CY [...] MG #3 TA 93 BL 8 ET [place] 59 02 03 10 5 00 RI [...] 17 53 PH E 9 48 AR [place] MA OP CY 50 MC G SP RA Y CY 00 02 02 14 7 00 CL Ac CL 59 -0 -2 .0 00 IN ti OB 15 1- 4- 00 00 IC ve EN 65 20 20 42 ZA 81 17 17 08 PH [place] 0 66 AR IN MA E CY [...] 5 25 PH CE AR TA MA NH CY NO PH OF CY 7. NT [...] 12 01 20 10 00 CL Ac [place] 46 -2 -2 .0 00 IN ti OX 20 7- 7- 00 00 IC ve EN 19 20 20 41 00 16 17 74 PH 50 5 01 AR 0 MA MG CY TA BL ET NA 68 12 01 14 7 00 CL Ac [place] 46 -1 -2 .0 00 IN ti [...] 17 53 PH E 9 48 AR [place] MA OP CY 50 MC G SP RA Y BU 00 02 0 No TA 60 -0 LB 32 7- Lo -A 54 20 ng CE 42 14 er TA 1 NH Ac N- ti CA ve FF 50 [...] 20 20 ZA 70 09 09 PH NH [place] 6 AR CH IN MA AE E CY L 10 S MG TA BL ET ME 59 02 02 00 21 6 CL 18 GA Ac TH 74 -1 -2 .0 IN 75 IN ti YL 60 2- 6- 00 IC 10 EY ve [place] 00 20 20 ED 10 09 09 PH NH NI 3 AR CH SO MA AE [...] Hgb A1c Bld (12-05-2016 11:40) Comment: The [place] [employer] recommends maintenance of Hemoglobin A1C [...] Procedure DOS Code Location Performer Comment EGD 48695 [facility] DANIEL TRANSORAL 7 [facility] BIOPSY MEDICAL SINGLE/MU GROUP LTIPLE ECG 89685 [facility] ROUTINE 7 HEART ECG SPECIALIS W/LEAST TS, 12 LDS I&R ONLY ECG 25375 [place] CHAVEZ JR ROUTINE 7 [facility] W/LEAST P 12 LDS I&R ONLY COMPREHEN 06487 [place] [facility] SIVE 7 [facility] [place] [address] [place] [facility] TROPONIN 7 [facility] QUANTITAT INC INC SABIHA ECG 55055 [place] [facility] ROUTINE 7 [facility] ECG INC INC W/LEAST 12 LDS TRCG ONLY W/O I&R ECG 37068 [facility] ROUTINE 7 [facility] ECG [facility] W/LEAST 12 LDS TRCG ONLY W/[place] [address] P&C LABS, PICKLESIM SURG 7 LLC ER JR PATHOLOGY GROSS&BRYCE ROSCOPIC EXAM COLPOSCOP 05121 [facility] KAM Mercedes CERVIX 7 PHYSICIAN BX CERVIX S GROUP & [place] [address] [facility] TRACT 7 [facility] UPPER [facility] W/WO DELAYED IMAGES W/[place] [address] [place] [facility] HEAD/BRAI 7 [facility] N W/O INC INC CONTRAST MATERIAL UNCLASSIF J3490 [place] IED DRUGS 7 [facility] INC INC COMPREHEN 76505 [place] [facility] SIVE 7 [facility] METABOLIC INC INC PANEL GONADOTRO 58571 [place] [facility] PIN 7 [facility] FOLLICLE INC INC STIMULATI NG HORMONE GONADOTRO 92357 [place] [facility] PIN 7 [facility] LUTEINIZI INC INC NG HORMONE BLOOD 17478 [place] [facility] COUNT 7 [facility] COMPLETE INC INC AUTO&AUTO DIFRNTL WBC LIPID 15585 [place] [facility] PANEL 7 [place] [address] [place] [facility] GAMMAGLOB 7 [facility] ULIN IGA INC INC IGD IGG IGM EACH URNLS DIP 24207 [place] [facility] 7 [facility] STICK/TAB INC INC LET REAGENT AUTO MICROSCOP Y BLOOD 35218 [place] [facility] COUNT 7 [facility] COMPLETE INC INC AUTO&AUTO DIFRNTL WBC COMPREHEN 06753 [place] [facility] SIVE 7 [facility] METABOLIC INC INC PANEL UNCLASSIF J3490 [place] IED DRUGS 7 [place] [address] [place] [facility] INFUSION 7 [facility] THERAPY INC [place] PROPHY[place] IS/[place] [address] [place] INFUSION 7 [facility] THERAPY/P INC INC ROPHYLAXI S /DX 1ST TO 1 HR UNCLASSIF J3490 [place] IED DRUGS 7 [facility] INC INC IADNA 48365 P&C TOD ESQUIVEL HUMAN 7 LLC PAPILLOMA VIRUS HIGH-RISK TYPES CYTP 96932 P&C TOD ESQUIVEL CERVICAL/ 7 LLC VAGINAL REQ INTERP PHYSICIAN CYTP C/V 42578 P&C TOD ESQUIVEL AUTO THIN 7 LLC LYR PREPJ SCR MNL RESCR PHYS URNLS DIP 74871 [facility] HUMPHREY 7 PHYSICIAN STICK/TAB S GROUP LET RGNT NON-AUTO W/O MICRSCP ECG 60706 [place] ROUTINE 7 [facility] ECG INC INC W/LEAST 12 LDS TRCG ONLY W/O I&R PROTEIN 21096 [place] [facility] ELECTROPH 7 [facility] ORETIC INC INC FRACTJ&QU ANTJ SERUM COMPREHEN 26368 [place] [facility] SIVE 7 [facility] METABOLIC INC INC PANEL ANTINUCLE 81439 [place] [facility] AR 7 [facility] ANTIBODIE INC INC S SANNA BLOOD 13318 [place] [facility] COUNT 7 [facility] COMPLETE INC INC AUTO&AUTO DIFRNTL WBC URNLS DIP 63751 [place] [facility] 7 [facility] STICK/TAB INC INC LET RGNT AUTO W/O MICROSCOP Y CREATININ 50225 [facility] [facility] E BLOOD 7 [facility] INC INC UNCLASSIF J3490 [place] IED DRUGS 7 [facility] [place] [address] [place] [facility] UREA 7 [facility] NITROGEN INC INC QUANTITAT [address]ABIHA CT THORAX 12397 [place] [address] MEDICAL W/CONTRAS IMAGING T ASS MATERIAL NJX 58272 YVETTE DUFF DX/THER 7 MD RHIANNON, AGT PVRT PSC FACET JT LMBR/SAC 3+ LEVEL NJX 36773 YVETTE DUFF DX/THER 7 MD RHIANNON, AGT PVRT PSC FACET JT LMBR/SAC 1 LEVEL NJX 28832 YVETTE DUFF DX/THER 7 MD RHIANNON, AGT PVRT PSC FACET JT LMBR/SAC 2ND LEVEL ECG 17179 [place] [facility] ROUTINE 7 [facility] ECG INC INC W/LEAST 12 LDS TRCG ONLY W/O I&R ECG 95794 [facility] KIMBERLY ROUTINE 7 PHYSICIAN ECG S GROUP W/LEAST 12 LDS I&R ONLY UNCLASSIF J3490 [place] [facility] IED DRUGS 7 [facility] INC INC APPLICATI 30582 [place] [facility] ON 7 [facility] MODALITY INC INC 1/> AREAS HOT/COLD PACKS APPL 93325 [place] [facility] MODALITY 7 [facility] 1/> AREAS INC INC VASOPNEUM ATIC DEVICES APPL 48969 [place] [facility] MODALITY 7 [facility] 1/> AREAS INC INC ULTRASOUN D EA 15 MIN APPL 90665 [place] [facility] MODALITY 7 [facility] 1/> AREAS INC INC IONTOPHOR ESIS EA 15 MIN THERAPEUT 30489 [place] [facility] IC PX 1/> 7 [facility] AREAS INC INC EACH 15 MIN EXERCISES APPL 17315 [place] [facility] MODALITY 7 [facility] 1/> AREAS INC INC TRACTION MECHANICA L APPL 85128 [place] [facility] MODALITY 7 [facility] 1/> AREAS INC INC ELEC STIMJ UNATTENDE D APPL 27136 [place] [facility] MODALITY 7 [facility] 1/> AREAS INC INC TRACTION MECHANICA L APPL 95828 [place] [facility] MODALITY 7 [facility] 1/> AREAS INC INC ELEC STIMJ UNATTENDE D PHYSICAL 18333 [place] [facility] THERAPY 7 [facility] EVALUATIO INC INC N HIGH COMPLEX 45 MINS APPLICATI 24556 [place] [facility] ON 7 [facility] MODALITY INC INC 1/> AREAS HOT/COLD PACKS THERAPEUT 61358 [place] [facility] IC 7 [facility] INJECTION INC INC IV PUSH EACH NEW DRUG RADEX 62525 [place] [facility] ABDOMEN 7 [facility] COMPL INC INC W/DCBTS&/ ERC VIEWS THER 54389 [place] [facility] PROPH/DX 7 [facility] NJX IV INC INC PUSH SINGLE/1S T SBST/DRUG UNCLASSIF J3490 [place] [facility] IED DRUGS 7 [facility] INC INC ECG 85186 [place] ROUTINE 7 [facility] ECG INC INC W/LEAST 12 LDS TRCG ONLY W/O I&R ECG 78526 [place]UTE ROUTINE 7 [facility] W/LEAST P 12 LDS I&R ONLY CREATINE 59203 [place] [facility] KINASE 7 [facility] [place] [address] [place] [facility] LIPASE 7 [place] [address] [place] [facility] AMYLASE 7 [facility] INC INC COMPREHEN 65149 [place] SIVE 7 [facility] METABOLIC INC INC PANEL BLOOD 41370 [place] [facility] COUNT 7 [facility] COMPLETE INC INC AUTO&[place] [address] [place] [facility] TROPONIN 7 [facility] QUANTITAT INC INC SABIHA CREATINE 13411 [place] [facility] KINASE MB 7 [facility] FRACTION INC INC ONLY ECG 60579 [facility] KIMBERLY ROUTINE 7 PHYSICIAN ECG S GROUP W/LEAST 12 LDS I&R ONLY ECG 91562 [place] [facility] ROUTINE 7 [facility] ECG INC INC W/LEAST 12 LDS TRCG ONLY W/O I&R APPL 02544 [place] [facility] MODALITY 7 [facility] 1/> AREAS INC INC ELEC STIMJ UNATTENDE D APPL 57282 [place] [facility] MODALITY 7 [facility] 1/> AREAS INC INC TRACTION MECHANICA L APPLICATI 91957 [facility] [facility] ON 7 [facility] MODALITY INC INC 1/> AREAS HOT/COLD PACKS APPLICATI 64384 [place] [facility] ON 7 [facility] MODALITY INC INC 1/> AREAS HOT/COLD PACKS APPL 43389 [place] [facility] MODALITY 7 [facility] 1/> AREAS INC INC TRACTION MECHANICA L APPL 02923 [place] [facility] MODALITY 7 [facility] 1/> AREAS INC INC ELEC STIMJ UNATTENDE D APPL 39869 [facility] [facility] MODALITY 7 [facility] 1/> AREAS INC INC ELEC STIMJ UNATTENDE D THERAPEUT 24875 [place] [facility] IC PX 1/> 7 [facility] AREAS INC INC EACH 15 MIN EXERCISES APPLICATI 38286 [place] [facility] ON 7 [facility] MODALITY INC INC 1/> AREAS HOT/COLD PACKS ECG 86575 [facility] KIMBERLY ROUTINE 7 PHYSICIAN ECG S GROUP W/LEAST 12 LDS I&R ONLY XTRNL ECG 04531 [place] [facility] & 48 HR 7 [facility] RECORDING INC INC ECG 88841 [facility] ROUTINE 7 PHYSICIAN ECG S, PLLC W/LEAST 12 LDS I&R ONLY CREATINE 42670 [place] [facility] KINASE MB 7 [facility] [place] [address] [place] [facility] TROPONIN 7 [facility] QUANTITAT INC INC SABIHA BLOOD 44767 [place] [facility] COUNT 7 [facility] COMPLETE INC INC AUTO&AUTO DIFRNTL WBC COMPREHEN 88347 [place] SIVE 7 [facility] METABOLIC INC INC PANEL CREATINE 49947 [place] [facility] KINASE 7 [facility] TOTAL INC INC AMB A0427 [facility] SERVICE 7 AMBULANCE AMBULANCE ALS SERVICE SERVICE EMERGENCY TRANSPORT LEVEL 1 GROUND A0425 [facility] MILEAGE 7 AMBULANCE AMBULANCE PER SERVICE SERVICE STATUTE [place] 38570 [facility] SPINAL 7 CANAL ORTHOPAED LUMBAR ICS PSC W/O CONTRAST MATERIAL ECG 31331 [place] [facility] ROUTINE 7 [facility] ECG INC INC W/LEAST 12 LDS TRCG ONLY W/O I&R RADIOLOGI 77427 [facility] C EXAM 7 MEDICAL CHEST 2 IMAGING VIEWS ASS FRONTAL&L ATERAL APPLICATI 30293 [place] [facility] ON 7 [facility] MODALITY INC INC 1/> AREAS HOT/COLD PACKS APPL 47064 [place] [facility] MODALITY 7 [facility] 1/> AREAS INC INC TRACTION MECHANICA L THERAPEUT 62196 [place] [facility] IC PX 1/> 7 [facility] AREAS INC INC EACH 15 MIN EXERCISES APPL 28969 [place] [facility] MODALITY 7 [facility] 1/> AREAS INC INC ELEC STIMJ UNATTENDE D RADEX 27929 ANG[facility]O DUARTE SPINE 7 [place] LUMBOSACR ORTHOPAED AL 2/[address] [place] [address] [facility] CERVICAL 7 MEDICAL MEDICAL SPINE W/O IMAGING [place] [address] [facility] [facility] HEAD/BRAI 7 [facility] N W/O INC INC CONTRAST MATERIAL ECG 15941 [place] ROUTINE 7 [facility] ECG INC INC W/LEAST 12 LDS TRCG ONLY W/O I&R ECG 74537 [place] BORDENSHELLY ROUTINE 7 [facility] W/LEAST P 12 LDS I&R ONLY 25 20306 [facility] [facility] HYDROXY 7 [facility] INCLUDES INC INC FRACTIONS IF PERFORMED CYANOCOBA 79871 [place] [facility] LYUBOV 7 [facility] VITAMIN INC INC B-[address] [place] [address] [place] [facility] FOLIC 7 [facility] ACID INC INC SERUM COLLECTIO 94478 [place] [facility] N VENOUS 7 [facility] BLOOD INC INC VENIPUNCT URE THERAPEUT 79587 [place] [facility] IC 7 [facility] PROPHYLAC INC INC TIC/DX INJECTION SUBQ/IM UNCLASSIF J3490 [place] [facility] IED DRUGS 7 [facility] INC INC UNCLASSIF J3490 [place] [facility] IED DRUGS 7 [facility] INC INC URNLS DIP 51975 [place] [facility] 7 [facility] STICK/TAB INC INC [place]AG[place] [address] [facility] TRACT 7 [facility] W/WO DELAYED IMAGES W/KUB DESTRUCTI 90921 L[facility] JASSO ON BENIGN 7 LESIONS UP TO 14 RADEX 76550 [place] [facility] ABDOMEN 1 7 [facility] [place] [address] [place] [facility] INFUSION 7 [facility] THERAPY/P INC INC ROPHYLAXI S /DX 1ST TO 1 HR TX PROC G0238 [place] [facility] IMPRV 7 [facility] RESP INC INC FUNCT NOT G0237 FCE-FCE 15MIN BLOOD 56382 [place] [facility] COUNT 7 [facility] COMPLETE INC INC AUTO&AUTO DIFRNTL WBC COMPREHEN 43328 [place] [facility] SIVE 7 [facility] METABOLIC INC INC PANEL RAD EXP G9500 [place] CERRAT[place] INDICES/E 7 MEDICAL XP TM & IMAGING NUMB ASS FLUORO IMAGES DOC RADEX 51794 [place] ESOPHAGUS 7 MEDICAL IMAGING ASS LAPS RPR 02543 [facility] GARCIA PARAESPHG 7 [facility] L HRNA MEDICAL INCL GROUP FUNDPLSTY W/O MESH INJECTION J0330 [facility] 7 [facility] SUCCINYLC [facility] HOLINE CHLORIDE UP TO 20 MG INJECTION J2405 [facility] [address] [place] [address] ONDANSETR [facility] ON HCL PER 1 MG INJECTION J2704 [facility] PROPOFOL [address] [place] [address] 10 MG [facility] INJECTION J2710 [facility] 7 [facility] NEOSTIGMI [facility] NE METHYLSUL FATE UP TO 0.5 MG INJECTION J3010 [facility] FENTANYL 7 [facility] CITRATE [facility] 0.1 MG INJECTION J1100 [facility] [address] [place] [address] DEXAMETHO [facility] SONE SODIUM PHOSPHATE 1 MG INJECTION J1170 [facility] [address] [place] [address] HYDROMORP [facility] KURTIS UP TO 4 MG ANES 28395 [facility] INTRAPERI 7 [place] TONEAL ANESTHESI UPPER A ABDOMEN W/LAPS NOS INJECTION J1650 [facility] 7 [facility] ENOXAPARI [facility] N SODIUM 10 MG ECG 22162 [facility] ANNA ROUTINE 7 [facility] ECG MEDICAL W/LEAST GROUP 12 LDS I&R ONLY BLOOD 17397 [facility] COUNT 7 [facility] COMPLETE [facility] AUTOMATED GLUCOSE 23103 [facility] QUANTITAT 7 [facility] SABIHA BLOOD [facility] XCPT REAGENT STRIP HEMOGLOBI 21140 [facility] N 7 [facility] HEALTH GLYCOSYLA [facility] LANEY A1C ECG 18602 [facility] ROUTINE 7 [facility] ECG [facility] W/LEAST 12 LDS TRCG ONLY W/O I&R COLLECTIO 47140 [facility] N VENOUS 7 [facility] BLOOD [facility] VENIPUNCT URE THERAPEUT 48911 [place] [facility] IC 6 [facility] INJECTION INC INC IV PUSH EACH NEW DRUG RADEX 98267 [facility] ABDOMEN 6 MEDICAL MEDICAL COMPL IMAGING IMAGING W/DCBTS&/ [place] [address] [place] [facility] INFUSION 6 [facility] THERAPY/P INC INC ROPHYLAXI S /DX 1ST TO 1 HR RADIOLOGI 50497 [facility] C EXAM 6 MEDICAL MEDICAL CHEST 2 IMAGING IMAGING VIEWS ASS ASS FRONTAL&L ATERAL ECG 40512 [place] [facility] ROUTINE 6 [facility] ECG INC INC W/LEAST 12 LDS TRCG ONLY W/O I&R BLOOD 32825 [place] [facility] COUNT 6 [facility] COMPLETE INC INC AUTO&AUTO DIFRNTL WBC ECG 02675 [place] CHAVEZ JR ROUTINE 6 [facility] W/LEAST P 12 LDS I&R ONLY COMPREHEN 97587 [place] [facility] SIVE 6 [facility] [place] [address] [place] [facility] LIPASE 6 [facility] [place] [address] [place] [facility] AMYLASE 6 [facility] INC INC BLOOD 00904 [facility] OCCULT 6 [place] PEROXIDAS INTERNAL E ACTV MED QUAL FECES 1 DETER GLUC BLD 81746 [place] [facility] GLUC MNTR 6 [facility] DEV INC [place] [address] [place] HAR[place] HEAD/BRAI 6 MEDICAL N W/O IMAGING CONTRAST ASS MATERIAL THERAPEUT 37272 [place] [facility] IC 6 [facility] PROPHYLAC INC INC TIC/DX INJECTION SUBQ/IM RADEX 61756 [facility] CERRATO ALL SACRUM & 6 MEDICAL COCCYX IMAGING MINIMUM 2 ASS VIEWS RADEX 17677 [facility] CERR[facility] ALL SPINE 6 MEDICAL LUMBOSACR IMAGING AL ASS MINIMUM 4 VIEWS URINE 53974 [place] [facility] 6 [facility] TEST INC INC VISUAL COLOR CMPRSN METHS RADIOLOGI 28177 SEJ[facility] CERRATO ALL C 6 MEDICAL EXAMINATI IMAGING ON PELVIS ASS 1/2 VIEWS IAADI 60410 [place] [facility] INFLUENZA 6 [facility] B VIRUS INC INC IAADI 24216 [place] [facility] INFFLUENZ 6 [facility] A A VIRUS INC INC CUL BACT 01175 [place] [facility] XCPT 6 [facility] URINE INC INC BLOOD/STO OL AEROBIC ISOL BLOOD 06731 [place] [facility] COUNT 6 [facility] COMPLETE INC INC AUTO&AUTO DIFRNTL WBC RADIOLOGI 65755 [place] [facility] C EXAM 6 [facility] CHEST 2 INC INC VIEWS FRONTAL&L ATERAL RADEX 67527 [place] [facility] SINUSES 6 [facility] PARANASAL INC INC COMPL MINIMUM 3 [place] [address] [place] [facility] STREPTOCO 6 [facility] [place] [address] P&C LABS, PICKLESIM SURG 6 [facility] PATHOLOGY GROSS&BRYCE ROSCOPIC EXAM DECALCIFI 28628 [facility], PICKLESIM CATION 6 [facility] PROCEDURE ANESTHESI 21564 [facility] FEEBACK A NOSE & 6 ANESTH ACCESSORY OF THE SINUSES BLUE NOS ECG 71042 [place] ROUTINE 6 [facility] ECG INC INC W/LEAST 12 LDS TRCG ONLY W/O I&R ECG 29918 [place] ROUTINE 6 [facility] W/LEAST P 12 LDS I&R ONLY BLOOD 05588 [place] COUNT 6 [facility] COMPLETE INC INC AUTO&AUTO DIFRNTL WBC ANTIBODY 76191 [place] HERPES 6 [facility] SMPLX INC INC TYPE 1 ANTIBODY 03097 [place] VIRUS NOT 6 [facility] INC INC ELSEWHERE SPECIFIFE D COMPREHEN 49840 [place] SIVE 6 [facility] METABOLIC INC INC PANEL COLLECTIO 71905 [place] N VENOUS 6 [facility] [place] [address] [facility]EN MAXILLOFA 6 MEDICAL ADRIANNA CIAL W/[place] [address] SEJAL BEINEKE HEAD/BRAI 6 MEDICAL N W/[place] [address] SEJAL BUCHANAN CERVICAL 6 MEDICAL SPINE W/O IMAGING CONTRAST ASS MATERIAL URINE 41546 [place] [facility] 6 [facility] TEST INC INC VISUAL COLOR CMPRSN METHS COMPRE 82042 MAEGAN ISSA AUDIOMETR 6 JARON JARON Y THRESHOLD EVAL SP RECOGNIJ TYMPANOME 70615 MAEGAN ISSA TRY 6 JARON JARON DISTORT 02079 MAEGAN VERAON PRODUCT 6 JARON JARON EVOKED OTOACOUST IC EMISNS LIMITD PULMONARY 38390 [place] NO[place]UE[place] STRESS 6 MEDICAL TESTING SERV SIMPLE FOUNDATIO N GAS [address]3228 [place] DILUT/WAS 6 MEDICAL MEDICAL HOUT LUNG SERV SERV VOL W/WO FOUNDATIO FOUNDAT[place] DISTRI[place] N N [place]ENT&[place] [address] [place] NO[place]UE[place] DIFFUSING 6 MEDICAL CAPACITY SERV FOUNDATIO N ELIG CLIN G8427 STAMPING RODRIGUEZ TRI ATTSTS 6 GROUND DOC M REC FAMILY OBTD CLINI UPD/REV PT MEDS ECG 42391 [place] ROUTINE 6 [facility] W/LEAST P 12 LDS I&R ONLY BLOOD 32303 [place] OCCULT 6 [facility] PEROXIDAS INC INC E ACTV QUAL FECES 1-3 SPEC BLOOD 18588 [place] COUNT 6 [facility] COMPLETE INC INC AUTO&AUTO DIFRNTL WBC COLLECTIO 42863 [place] N VENOUS 6 [facility] BLOOD INC INC VENIPUNCT URE XTRNL ECG 64496 [place] 6 [facility] S RHYTHM P W/I&R UP TO 48 HRS GROUND A0425 STACY COTE MILEAGE 6 AMBULANCE PATY PER SERVICE STATUTE MILE AMBULANCE A0429 [facility] SERVICE 6 AMBULANCE PATY BLS SERVICE EMERGENCY TRANSPORT PROF SVCS 83982 ALLERGY ROSENTHAL MAR ALLG 6 PARTNERS IMMNTX X OF [place] W/PRV CO ALLGIC XTRCS NJXS SPMTRY 90057 ALLERGY ROSENTHAL MAR W/VC 6 PARTNERS 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 OF [place] Y ABHI CO W/WO MXML VOL VNTJ NITRIC 67170 ALLERGY ROSENT[place] MAR OXIDE 6 [facility] [place] GAS CO DETERMINA TION BLOOD 34459 [place] COUNT 6 [facility] COMPLETE INC INC AUTO&AUTO DIFRNTL WBC RHEUMATOI 42282 [place] FACTOR 6 [facility] QUANTITAT INC INC SABIHA ECG 73469 [place] ROUTINE 6 [facility] W/LEAST P 12 LDS I&R ONLY ANTINUCLE 08879 [place] AR 6 [facility] ANTIBODIE INC INC S SANNA BLOOD 49831 [place] COUNT 6 [facility] RETICULOC INC INC YTE AUTOMATED SEDIMENTA [address] [facility] [facility]ATE [facility] RBC INC INC NON-AUTOM ATED SEDIMENTA 20551 [facility] [facility] RBC INC INC NON-AUTOM ATED BLOOD 75053 [facility] [facility] COUNT 6 [facility] RETICULOC INC INC YTE AUTOMATED BASIC 03226 [place] [facility] METABOLIC 6 [facility] PANEL INC INC CALCIUM TOTAL BLOOD 59570 [facility] [facility] COUNT 6 [facility] COMPLETE INC INC AUTO&AUTO DIFRNTL WBC TECHNETIU A9503 [place] TC-99M 6 [facility] MEDRONATE INC INC DX UP TO 30 MCI BONE 34228 [place] C[place] ALL &/JOINT 6 MEDICAL IMAGING IMAGING WHOLE ASS BODY COLLECTIO 48459 [facility] [facility] N VENOUS 6 [facility] BLOOD INC INC VENIPUNCT URE RADIOLOGI 57792 [facility] C EXAM 6 MEDICAL MEDICAL CHEST 2 IMAGING IMAGING VIEWS ASS ASS FRONTAL&L ATERAL ANES 81367 [place] BRITTNY LOWER 6 ANESTHESI INTESTINE A GROUP PS ENDOSCOPY DISTAL DUODENUM COLLECTIO 42781 [facility] [facility] N VENOUS 6 [facility] [place] [address] [facility] THYROID 6 [facility] STIMULATI INC INC NG HORMONE TSH THYROID 68676 [facility] [facility] HORM 6 [facility] UPTK/THYR INC INC OID HORMONE BINDING RATIO GONADOTRO 92922 [facility] [facility] PIN 6 [facility] FOLLICLE INC INC STIMULATI NG HORMONE GONADOTRO 59540 [facility] [facility] PIN 6 [facility] [place] [address] [facility] THYROXINE 6 [facility] TOTAL INC INC ECG 46104 [place] MATUTE ROUTINE 6 [facility] W/LEAST P 12 LDS I&R ONLY AMB A0427 [facility] SERVICE 6 AMBULANCE KILO ALS SERVICE EMERGENCY TRANSPORT LEVEL 1 RADIOLOGI 00977 [facility] C 6 MEDICAL MEDICAL EXAMINATI IMAGING IMAGING ON CHEST ASS ASS SINGLE VIEW FRONTAL GROUND A0425 [facility] MILEAGE 6 AMBULANCE KILO PER SERVICE STATUTE MILE PREPJ& 86372 ALLER[facility] ROSENTHAL MAR ALLERGEN 6 [facility] IMMUNOTHE OF TRE PEREZ CO 1/[place] [address] [facility] [facility] INFUSION 6 [facility] THERAPY INC INC PROPHYLAX IS/DX EA HOUR RADIOLOGI 01088 [facility] [facility] C 6 [facility] EXAMINATI INC INC ON KNEE 3 [place] [address] [facility] [facility] INFUSION 6 [facility] THERAPY/P INC INC ROPHYLAXI S /DX [address] [place] [address] [place] [address] [facility] [facility] HEAD/BRAI 6 [facility] N W/[place] [address] [facility] [facility] CERVICAL 6 [facility] SPINE W/O INC INC CONTRAST MATERIAL ECG 79824 [place] [facility] ROUTINE 6 [facility]OS[facility] ECG INC INC W/LEAST 12 LDS TRCG ONLY W/O I&R ECG 38141 [place] MATUTE ROUTINE 6 [facility] W/LEAST P 12 LDS I&[place] [address] [facility] [facility] TROPONIN 6 [facility]OSP QUANTITAT INC INC SABIHA BLOOD 73697 [place] [facility] COUNT 6 [facility] COMPLETE INC INC AUTO&AUTO DIFRNTL WBC COMPREHEN 13986 [place] [facility] SIVE 6 [facility] METABOLIC INC INC PANEL CREATINE 84294 [facility] [facility] KINASE MB 6 [facility] FRACTION INC INC ONLY CREATINE 49809 [place] [facility] KINASE 6 [facility] TOTAL INC INC SPACR A4627 [facility] KRASNOPOL BAG/RESRV 6 [facility] MASK W/METRD DOSE INHAL SPMTRY 00709 ALLERGY ROSENT[facility] MAR W/VC 6 [facility] EXPIR[employer] OF [place] Y ABHI CO W/WO MXML VOL VNTJ PERCUTANE 42863 ALLERGY ROS[facility]HAL MAR OUS TESTS 6 [facility] [place] W/ALLERGE CO LEO EXTRACTS INTRACUTA 44085 ALLERGY ROSENTHAL MAR NEOUS 6 [facility] TESTS OF [place] W/ALLERGE CO LEO EXTRACTS NITRIC 39693 ALLERGY ROSENTHAL MAR OXIDE 6 [facility] [place] [address] [facility] KAM TRANSVAGI 6 PHYSICIAN MEAGAN NAL S GROUP ECG 42254 [place] CHAVEZ JR ROUTINE [address] [facility] W/LEAST P 12 LDS I&R ONLY IADNA 41492 [place] [facility] CHLAMYDIA 6 [facility] INC INC TRACHOMAT IS AMPLIFIED PROBE TQ IADNA 60893 [place] [facility] NEISSERIA 6 [facility] INC INC GONORRHOE [place] AM[place] [address] [facility] TRACT 6 N N UPPER COMMUNTIY COMMUNTIY W/WO HOSPITA HOSPITA DELAYED IMAGES W/KUB RADIOLOGI 62611 [place] SAQIB ALL C 6 MEDICAL EXAMINATI IMAGING ON CHEST ASS SINGLE VIEW FRONTAL ECG 67878 [place] MAT[place] ROUTINE 6 [facility] W/LEAST P 12 LDS I&R ONLY ELECTROEN 69349 [facility] CEPHALOGR 6 N AM W/REC NEUROLOGY AWAKE&[place] [address] [facility] ABDOMEN & 6 MEDICAL MEDICAL PELVIS IMAGING IMAGING W/CONTRAS ASS ASS T MATERIAL ECG 51336 [place] ROUTINE 6 [facility] W/LEAST P 12 LDS I&R ONLY ELECTROEN 75320 [facility] CEPHALOGR 6 N N AM W/REC COMMUNTIY COMMUNTIY [facility] H[facility]PITA WSY RADIOLOGI 97401 [place] SAQIB ALL C 6 MEDICAL EXAMINATI IMAGING ON CHEST ASS SINGLE VIEW FRONTAL RADEX 67007 [place] SAQIB ALL SPINE 6 MEDICAL THORACIC IMAGING 2 VIEWS ASS ECG 36702 [place] CHAVEZ JR ROUTINE [address] [facility] W/LEAST P 12 LDS I&R ONLY SCREENING G0202 [place] HARLEEN 6 MEDICAL ADRIANNA MAMMOGRAP IMAGING HY WILBERT ASS INCL CAD WHEN PERFORMD COMPUTER- 69717 [place] HARLEEN AIDED 6 MEDICAL ADRIANNA DETECTION IMAGING ASS SCREENING MAMMOGRAP HY RADEX ABD 11392 [facility] COMPL 6 [facility] AQT ABD INC INC W/S/E/D VIEWS 1 [place] [address] [facility] INFUSION 6 [facility] THERAPY/P INC INC ROPHYLAXI S /DX 1ST TO 1 HR ECG 40909 [facility] ROUTINE 6 [facility] ECG INC INC W/LEAST 12 LDS TRCG ONLY W/O I&R BLOOD 38523 [facility] [facility] COUNT 6 [facility] COMPLETE INC INC AUTO&AUTO DIFRNTL WBC URNLS DIP 76447 [facility] 6 [facility] STICK/TAB INC INC [place] [address] [place] LACTATE 6 [place] [address] [facility] [facility] TROPONIN 6 [facility] QUANTITAT INC INC SABIHA COMPREHEN 62269 [place] [facility] SIVE 6 [facility] METABOLIC INC INC PANEL ECG 01516 [place] CHAVEZ JR ROUTINE 6 [facility] W/LEAST P 12 LDS I&[place] [address] [facility] INFUSION 6 [facility] HOSP THERAPY/P INC INC ROPHYLAXI S /DX 1ST TO 1 HR ECG 41305 [place] [facility] ROUTINE 6 [facility] ECG INC INC W/LEAST 12 LDS TRCG ONLY W/O I&R RADIOLOGI 55738 [facility] ALL C EXAM 6 MEDICAL CHEST 2 IMAGING VIEWS ASS FRONTAL&L ATERAL COMPREHEN 11121 [place] [facility] SIVE 6 [facility] METABOLIC INC INC PANEL CULTURE 15804 [facility] [facility] BACTERIAL 6 [facility] INC INC QUANTTATI VE COLONY COUNT URINE CREATINE 70464 [place] [facility] KINASE 6 [facility] TOTAL INC INC URINE 37382 [place] [facility] 6 [facility] TEST INC INC VISUAL COLOR CMPRSN METHS CREATINE 78644 [place] [facility] KINASE MB 6 [facility] [place] [address] [facility] [facility] TROPONIN 6 [facility] QUANTITAT INC INC SABIHA BLOOD 98605 [place] [facility] COUNT 6 [facility] COMPLETE INC INC AUTO&AUTO DIFRNTL WBC ECG 76687 [place] ROUTINE 6 [facility] W/LEAST P 12 LDS I&R ONLY URNLS DIP 26660 [place] [facility] 6 [facility] STICK/TAB INC INC LET REAGENT AUTO MICROSCOP Y AMB A0427 [facility] SERVICE 6 AMBULANCE AMBULANCE ALS SERVICE SERVICE EMERGENCY TRANSPORT LEVEL 1 RADEX ABD 73939 [place] C[place] ALL COMPL 6 MEDICAL AQT ABD IMAGING W/S/E/D ASS VIEWS 1 VIEW CH GROUND A0425 [facility] MILEAGE 6 AMBULANCE AMBULANCE PER SERVICE SERVICE STATUTE MILE COLLECTIO 47047 [facility] N VENOUS 6 N N BLOOD COMMUNTIY COMMUNTIY VENIPUNCT HOSPITA HOSPITA URE THER 54532 [facility] PROPH/DX 6 N N NJX IV COMMUNTIY COMMUNTIY PUSH HOSPITA HOSPITA SINGLE/1S T SBST/[place] [address] [facility] INFUSION 6 N N HYDRATION COMMUNTIY COMMUNTIY EACH HOSPITA HOSPITA ADDITIONA L HOUR MRI BRAIN 63729 [facility] BRAIN 6 N N STEM W/O COMMUNTIY COMMUNTIY CONTRAST HOSPITA HOSPITA MATERIAL BLOOD 98835 [facility] COUNT 6 N N COMPLETE COMMUNTIY COMMUNTIY AUTO&AUTO HOSPITA HOSPITA DIFRNTL WBC COMPREHEN 84205 [facility] SIVE 6 N N METABOLIC COMMUNTIY COMMUNTIY PANEL HOSPITA HOSPITA ECG 86993 [place] [facility] ROUTINE 6 [facility] W/LEAST P 12 LDS I&R ONLY RADIOLOGI 24931 [place] CERRAT[place] ALL C 6 MEDICAL EXAMINATI IMAGING [place] [address] [place] C[place] ALL HEAD/BRAI 6 MEDICAL N W/O IMAGING CONTRAST ASS MATERIAL AMB A0427 [facility] SERVICE 6 AMBULANCE AMBULANCE ALS SERVICE SERVICE [place] [address] [place] ALL ABDOMEN & 6 MEDICAL PELVIS IMAGING W/O ASS CONTRAST MATERIAL GROUND A0425 [facility] MILEAGE 6 AMBULANCE AMBULANCE PER SERVICE SERVICE STATUTE MILE CHIROPRAC 08971 [facility] TIC 6 MANIPLTV TX EXTRASPIN AL 1/> REGION CHIROPRAC 50051 [facility] TIC 6 MANIPULAT SABIHA [place] SPINAL 3-4 REGIONS THERAPEUT 89098 [facility] IC PX 1/> 6 AREAS EACH 15 MIN EXERCISES MANUAL 23305 [facility] THERAPY 6 TQS 1/> REGIONS EACH 15 MINUTES MANUAL 52865 [facility] THERAPY 6 TQS 1/> REGIONS EACH 15 MINUTES THERAPEUT 72323 [facility] IC PX 1/> 6 AREAS EACH 15 MIN EXERCISES THERAPEUT 97289 [facility] LUKING IC PX 1/> 6 MATTI MATTI AREAS EACH 15 MIN EXERCISES CHIROPRAC 36374 [facility] TIC 6 MATTI MATTI MANIPLTV TX EXTRASPIN AL 1/> REGION CHIROPRAC 44898 [facility] TIC 6 MATTI MATTI MANIPULAT SABIHA TX SPINAL 3-4 REGIONS MANUAL 20915 [facility] THERAPY 6 MATTI MATTI TQS 1/> REGIONS EACH 15 MINUTES BX SKIN 33827 SCALF LEI SCALF LEI SUBCUTANE 6 OUS&/MUCO US MEMBRANE 1 LESION IMHISTOCH 22904 SCALF LEI SCALF LEI EM/CYTCHM 6 1ST [place] [address] SCALF LEI SCALF LEI SURG 6 PATHOLOGY GROSS&BRYCE ROSCOPIC EXAM COMPREHEN 56927 [facility] SIVE 6 DIAGNOSTI DIAGNOSTI METABOLIC CS CS PANEL ECG 64278 [facility] 6 [facility] W/LEAST P 12 LDS I&R ONLY ECG 45967 [facility] ROUTINE 6 [facility] ECG MEDICAL W/LEAST GROUP 12 LDS I&R ONLY LOCM Q9967 [facility] [phone] HEALTH HEALTH MG/ML [facility] IODINE CONCENTRA TION PER ML BLOOD 42637 [facility] COUNT 6 [facility]ALTH [facility]ALTH COMPLETE [facility] AUTOMATED LIPID 76348 [facility] PANEL 6 HEALTH HEALTH [facility] HEMOGLOBI 87280 [facility] N 6 HEALTH HEALTH GLYCOSYLA [facility] LANEY A1C BASIC 00547 [facility] METABOLIC 6 HEALTH HEALTH PANEL [facility] CALCIUM TOTAL GONADOTRO 16554 [facility] PIN 6 HEALTH HEALTH CHORIONIC [facility] QUANTITAT SABIHA CATH PLMT 40047 [facility] MCKENNA Jordan HRT & 6 HEALTH IV ARTS MEDICAL W/NJX & GROUP ANGIO IMG S&I INJECTION J1644 [facility] HEPARIN 6 [facility] SODIUM [facility] PER 1000 UNITS INJECTION J3010 [facility] FENTANYL 6 [facility] CITRATE [facility] 0.1 MG COLLECTIO 31887 [facility] N VENOUS 6 [facility] BLOOD [facility] VENIPUNCT URE MYOCARDIA 11533 [place] Ortega SPECT 6 [facility]OSP MULTIPLE INC INC STUDIES UNCLASSIF J3490 [facility] [facility] IED DRUGS 6 [facility] HOSP INC INC CV STRS 84897 [place] [facility] TST 6 [facility] RX CONT P P ECG I&R ONLY CV STRS 36118 [place] [facility] TST 6 [facility] HOSP XERS&/OR INC INC RX CONT ECG TRCG ONLY CV STRS 00281 [place] TST 6 [facility] RX CONT P P ECG W/O I&R ECHO 38715 MELANIE STERN TTC R-T 6 MEDICAL 2D SERV W/WOM-MOD FOUNDATIO E COMPL N SPEC&COLR D TECHNETIU A9500 [place] TC-99M 6 [facility] HOSP SESTAMIBI INC INC DX PER STUDY DOSE ECG 80044 [place] CHAVEZ JR ROUTINE 6 [facility] W/LEAST P 12 LDS I&R ONLY RADIOLOGI 35583 [place] CERRATO ALL C 6 MEDICAL EXAMINATI IMAGING ON CHEST ASS SINGLE VIEW FRONTAL OPHTH 69744 [facility] 6 XM&EVAL COMPRHNSV ESTAB PT 1/> [place] [address] LAB [facility] LAB MAHESH TOCOPHERO 6 MAI MAI L ALPHA [employer] [place] [address] LAB MA[facility]ESH LAB MAHESH VITAMIN A 6 [place] [address] LAB MAHESH LAB MAHESH PHOSPHORU 6 MAI MAI [place] [address] LAB [facility] LAB MAHESH IRON 6 [place] [address] LAB [facility] LAB MA[facility]ESH FOLIC 6 MAI MAI ACID [facility]INGS HOLDINGS SERUM PREALBUMI 54634 LAB MA[facility] LAB MAHESH N 6 [place] [address] LAB [facility] ZINC 6 MAI MAI HOLDINGS HOLDINGS BLOOD 33790 LAB [facility] LAB [facility] COUNT 6 MAI MAI COMPLETE HOLDINGS HOLDINGS AUTO&[place] [address] LAB [facility] LAB MA[facility]ESH THIAMINE- 6 [facility]I MAI VITAMIN [facility]INGS HOLDINGS B-1 COMPREHEN 51805 LAB [facility] LAB [facility] SIVE 6 [facility] METABOLIC [facility] HOLDINGS PANEL 25 33892 [facility] HYDROXY 6 MAI MAI INCLUDES [facility] [place] [address] LAB [facility] LAB MA[facility]ESH PARATHORM 6 [place] [address] LAB [facility] LAB MAHESH MAGNESIUM 6 MAI MAI [facility]INGS HOLDINGS ORGANIC 64081 LAB MA[facility]ESH LAB MAHESH ACID 1 6 MAI MAI QUANTITAT [place] [address] LAB MA[facility] LAB MAHESH FERRITIN 6 [place] [address] [place] VAUGHN FERRITIN 6 MEM HOSP TERA INC 25 72986 [place] [facility] HYDROXY 6 [facility] INCLUDES INC INC FRACTIONS IF PERFORMED COMPREHEN 65533 [place] [facility] SIVE 6 [facility] METABOLIC INC INC PANEL BLOOD 44214 [place] [facility] COUNT 6 [facility] COMPLETE INC INC AUTO&AUTO DIFRNTL WBC IRON 72161 [place] [facility] BINDING 6 [facility] [place] [address] [facility] [facility] IRON 6 [place] [address] [facility] [facility] THYROID 6 [facility] STIMULATI INC INC NG HORMONE TSH COLLECTIO 93434 [place] [facility] N VENOUS 6 [facility] BLOOD INC INC VENIPUNCT URE IADNA 13763 [facility] NEISSERIA [facility] GONORRHOE AE AMPLIFIED PROBE TQ IADNA 27962 [facility] CHLAMYDIA [facility] TRACHOMAT IS AMPLIFIED PROBE TQ IADNA 76492 [facility], [facility] HUMAN 6 [facility] PAPILLOMA VIRUS HIGH-RISK TYPES CYTP 13210 [facility] CERVICAL/ 6 LLC VAGINAL REQ INTERP PHYSICIAN CYTP C/V 82244 [facility], [facility] AUTO THIN 6 LLC LYR PREPJ SCR MNL RESCR PHYS BASIC 29646 [place] [facility] METABOLIC 6 [facility] [place] [address] [place] [facility] THYROID 6 [facility] STIMULATI INC INC NG HORMONE TSH COLLECTIO 91321 [place] [facility] N VENOUS 6 [facility]P BLOOD INC INC VENIPUNCT URE COLLECTIO 09031 [place] [facility] N VENOUS 6 [facility] BLOOD INC INC VENIPUNCT URE COMPREHEN 13234 [place] [facility] SIVE 6 [facility] [address] [place] [facility] FERRITIN 6 [facility] INC INC ORGANIC 97380 [place] ACID 1 6 [facility] H[facility] [place] [address] [facility] [place] THIAMINE- 6 MEM H[facility]P [facility] VITAMIN INC INC B-1 [place] [address] [place] [facility] IRON 6 [facility] INC INC PREALBUMI 51964 [facility] [place] N 6 [facility] INC INC BLOOD 20964 [place] [facility] COUNT 6 [facility] COMPLETE INC INC AUTO&AUTO DIFRNTL WBC PREALBUMI 01658 [facility] MAHESH N 5 [place] [address] LAB [facility] LAB MAHESH IRON 5 [place] [address] LAB [facility] LAB MAHESH FOLIC 5 MAI MAI [place] [address] LAB MAHESH LAB MAHESH THIAMINE- 5 [facility] VITAMIN HOLDINGS HOLDINGS B-1 ORGANIC 89834 LAB MAHESH LAB MAHESH ACID 1 5 [facility] QUANTITAT [place] [address] LAB MAHESH LAB MAHESH FERRITIN 5 [facility] HOLDINGS HOLDINGS GENERAL 66847 LAB MAHESH LAB MAHESH HEALTH 5 [facility] PANEL HOLDINGS HOLDINGS DESTRUCTI 59336 ATKINS ATKINS ON 5 TRA TRA PREMALIGN ANT LESION 1ST DESTRUCTI 13982 ATKINS ATKINS ON BENIGN 5 TRA TRA LESIONS UP [place] 14 [place] [address] SCALF LEI SCALF LEI SURG 5 PATHOLOGY GROSS&BRYCE ROSCOPIC EXAM BIOPSY 58588 ATKINS ATKINS SKIN 5 TRA TRA SUBQ&/MUC OUS MEMBRANE EA ADDL LESN BX SKIN 07211 ATKINS ATKINS SUBCUTANE 5 TRA TRA OUS&/MUCO US MEMBRANE 1 LESION COMPREHEN 66697 LAB MA[facility]ESH LAB MAHESH SIVE 5 [facility] METABOLIC [place] [address] LAB MAHESH LAB MAHESH THIAMINE- 5 [facility] VITAMIN HOLDINGS HOLDINGS B-1 ORGANIC 94117 LAB MAHESH LAB MAHESH ACID 1 5 [facility] QUANTITAT [place] [address] LAB MAHESH LAB MAHESH FOLIC 5 [facility] AC[place] [address] LAB MAHESH LAB MAHESH IRON 5 [facility] HOLDINGS HOLDINGS PREALBUMI 33003 LAB MAHESH LAB MAHESH N 5 [facility] HOLDINGS HOLDINGS BLOOD 06105 LAB [facility]ESH LAB MAHESH COUNT 5 [facility] COMPLETE HOLDINGS HOLDINGS AUTO&AUTO DIFRNTL WBC SCREENING G0202 [place] [facility] 5 [facility] MAMMOGRAP INC INC HY WILBERT INCL CAD WHEN PERFORMD COMPUTER- 24294 [place] [facility] AIDED 5 [facility] DETECTION INC [place] [address] [place] [facility] THYROID 5 [facility] STIMULATI INC INC NG HORMONE TSH COLLECTIO 64572 [place] [facility] N VENOUS 5 [facility] MEM HOSP BLOOD INC INC VENIPUNCT URE BLOOD 59343 [facility] COUNT 5 [facility] H[facility]OSP COMPLETE INC INC AUTO&AUTO DIFRNTL WBC HEMOGLOBI 49557 [facility] N 5 [facility] MEM HOSP GLYCOSYLA INC INC LANEY A1C LIPID 19944 [place] PANEL 5 [place] [address] [facility] GLUTAMYLT 5 [facility]OS[facility] RASE INC INC GAMMA CYANOCOBA 20658 [place] [facility] LYUBOV 5 MEM H[facility] MEM HOSP VITAMIN INC INC B-12 COMPREHEN 53926 [place] [facility] SIVE 5 [facility]OS[facility] METABOLIC INC INC PANEL 25 88040 [facility] HYDROXY 5 [facility]OSP INCLUDES INC INC FRACTIONS IF PERFORMED OPHTH 80230 [employer] MEDICAL 5 ANG ANG XM&EVAL COMPRHNSV ESTAB PT 1/> [place] [address] [facility] SCALF HUBER ABDOMEN & 5 RADIOLOGY PELVIS W/[place] [address] [place] C[place] ALL ABDOMEN & 5 MEDICAL PELVIS IMAGING W/CONTRAS ASS T MATERIAL COMPREHEN 68569 [facility] SIVE 5 [facility] METABOLIC INC INC PANEL URINE 49561 [place] [facility]A 5 [facility] TEST INC INC [place] [address] [facility] [facility] LIPASE 5 [place] [address] [facility] [facility] AMYLASE 5 [facility] INC INC CULTURE 92147 [place] [facility] BACTERIAL 5 [facility] INC INC QUANTTATI VE COLONY COUNT URINE URNLS DIP 82720 [place] [facility] 5 [facility] STICK/TAB INC INC LET REAGENT AUTO MICROSCOP Y BLOOD 25489 [place] [facility] COUNT 5 [facility] COMPLETE INC INC AUTO&AUTO DIFRNTL WBC BLOOD 03568 [facility] COUNT 5 N N COMPLETE COMMUNTIY COMMUNTIY AUTO&AUTO HOSPITA [place] [address] [facility] FOLIC 5 N N ACID COMMUNTIY COMM[place]TI[place] [address] [facility] ZINC 5 N N COMMUNTIY COMMUNTIY HOSPITA HOSPITA PREALBUMI 21964 [facility] N 5 N N COMMUNTIY [place] [address] [facility] THIAMINE- 5 N N VITAMIN COMMUNTIY COMMUNTIY B-[place] [address] [facility] AMYLASE 5 N N COMMUNTIY [place] [address] [facility] MAGNESIUM 5 N N COMMUNTIY COMMUNTIY HOSPITA HOSPITA ORGANIC 42805 [facility] ACID 1 5 N N QUANTITAT COMMUNTIY COMMUNTIY [place] [address] [facility] PARATHORM 5 N N ONE COMMUNTI[place] [address] [facility] LIPASE 5 N N COMMUNTIY COMMUNTIY HOSPITA HOSPITA COMPREHEN 80950 [facility] SIVE 5 N N METABOLIC COMMUNTIY COMMUNTIY PANEL HOSPITA HOSPITA 25 [id number] [facility] HYDROXY 5 N N INCLUDES COMMUNTIY COMMUNTIY [place] [address] [facility] [place] [facility] ABDOMINAL 5 RADIOLOGY RHO REAL TIME W/IMAGE LIMITED COLLECTIO 14228 [facility] N VENOUS 5 N N BLOOD COMMUNTIY COMMUNTIY VENIPUN[place] [address] [facility] TOCOPHERO 5 N N L ALPHA COMMUNTIY COMMUNTIY [place] [address] [facility] VITAMIN A 5 N N COMMUNTI[place] [address] [facility] PHOSPHORU 5 N N S COMMUNTIY COMMUNTIY INORGANIC HOSPITA HOSPITA COLLECTIO 33294 [facility] N VENOUS 5 N N BLOOD COMMUNTIY COMMUNTIY [place] [address] [place] [facility] RETROPERI 5 MEM HOSP MEM HOSP TONEAL INC [place] REAL TIME W/[place] [address] SEJAL ENGLE RETROPERI 5 MEDICAL TONEAL IMAGING REAL TIME ASS W/IMAGE LIMITED COMPREHEN [id number] [facility] SIVE 5 N N METABOLIC COMMUNTIY COMMUNTIY PANEL HOSPITA HOSPITA IMMUNOASS 64889 [facility] AY 5 N N ANALYTE COMMUNTIY COMMUNTIY QUAL/SEMI HOSPITA [place] [address] [facility] FERRITIN 5 N N COMMUNTIY COMMUNTIY HOSPITA HOSPITA HEPATITIS 64436 [facility] B CORE 5 N N ANTIBODY COMMUNTIY COMMUNTIY HBCAB HOSPITA HOSPITA TOTAL HEPATITIS 09388 [facility] B SURF 5 N N ANTIBODY COMMUNTIY COMMUNTIY HBSAB HOSPITA HOSPITA PROTHROMB 75290 [facility] IN TIME 5 N N COMMUNTIY [place] [address] [facility] HEPATITIS 5 N N B COMMUNTIY COMMUNTIY SURFACE HOSPITA HOSPITA ANTIGEN ANTINUCLE 08474 [facility] AR 5 N N ANTIBODIE COMMUNTIY COMMUNTIY [place] [address] [facility] IRON 5 N N COMMUNTIY COMMUNTIY HOSPITA HOSPITA BLOOD 66306 [facility] COUNT 5 N N COMPLETE COMMUNTIY COMMUNTIY AUTOMATED HOSPITA HOSPITA HEPATITIS 67910 [facility] C 5 N N ANTIBODY [place] [address] [facility] GAMMAGLOB 5 N N ULIN IGA COMMUNTIY COMMUNTIY IGD IGG HOSPITA HOSPITA IGM EACH ALPHA-1-A 05484 [facility] NTITRYPSI 5 N N N TOTAL COMMUNTIY COMMUNTIY HOSPITA HOSPITA IRON 34448 [facility] BINDING 5 N N CAPAC[place] [address] [facility] & 5 MEDICAL PELVIS IMAGING W/O ASS CONTRAST MATERIAL DUP-SCAN 29993 [facility] XTR VEINS 5 N N COMPLETE COMMUNTIY COMMUNTIY HOSPITA HOSPITA BILATERAL STUDY COMPREHEN 14792 [facility] SIVE 5 N N METABOLIC COMMUNTIY COMMUNTIY PANEL HOSPITA HOSPITA COLLECTIO 19651 [facility] N VENOUS 5 N N BLOOD COMMUNTIY COMMUNTIY VENIPUNCT HOSPITA HOSPITA URE BLOOD 62298 [facility] COUNT 5 N N COMPLETE COMMUNTIY COMMUNTIY AUTO&AUTO [place] [address] [facility] LIPASE 5 N N COMM[place] [address] [facility] AMYLASE 5 N N COMMUNTI[place] [address] [facility] [place] SCALF HUBER TRACT 5 RADIOLOGY UPPER W/WO DELAYED IMAGES W/KUB ANES IPR 78221 [facility] ANT UPPER 5 ANESTHESI ABDOMEN A GROUP LAPS PS GASTRIC RSTCV MO LAPS 32242 [facility] SANCHEZ MICHELLE GSTRC 5 RSTRICTIV BARIATRIC PX SURGICAL LONGITUDI NAL GASTRECTO MY LAPAROSCO 4382 [facility] PIC 5 N N VERTICAL COMMUNTIY COMMUNTIY SLEEVE HOSPITA HOSPITA GASTRECTO MY OTHER 4513 [facility] ENDOSCOPY 5 N N OF SMALL COMMUNTIY COMMUNTIY HOSPITA HOSPITA INTESTINE APPL 45926 [place] MODALITY 5 [facility] 1/> AREAS INC INC ELEC STIMJ UNATTENDE D APPLICATI 50617 [place] ON 5 [facility] MODALITY INC INC 1/> AREAS HOT/COLD PACKS APPL 31124 [place] MODALITY 5 [facility] 1/> AREAS INC INC ULTRASOUN D EA 15 MIN COLLECTIO 39326 [facility] N VENOUS 5 N N BLOOD COMMUNTIY COMMUNTIY VENIPUNCT HOSPITA HOSPITA URE DUP-SCAN 11717 [place] XTR VEINS 5 [facility] COMPLETE INC INC BILATERAL STUDY BLOOD 06961 [facility] COUNT 5 N N COMPLETE COMMUNTIY COMMUNTIY AUTOMATED HOSPITA HOSPITA GONADOTRO 74880 [facility] PIN 5 N N CHORIONIC COMMUNTIY COMMUNTIY HOSPITA HOSPITA QUALITATI VE COMPREHEN 84617 [facility] SIVE 5 N N METABOLIC COMMUNTIY COMMUNTIY PANEL HOSPITA HOSPITA APPL 35093 [place] MODALITY 5 [facility] 1/> AREAS INC INC ELEC STIMJ UNATTENDE D THERAPEUT 66351 [place] IC PX 1/> 5 [facility] AREAS INC INC EACH 15 MIN EXERCISES APPL 60384 [place] MODALITY 5 [facility] 1/> AREAS INC INC ULTRASOUN D EA 15 MIN APPLICATI 93145 [place] ON 5 [facility] MODALITY INC INC 1/> AREAS HOT/COLD PACKS CUL BACT 70852 [place] XCPT 5 [facility] URINE INC INC BLOOD/STO OL AEROBIC ISOL SUSCEPTIB 05094 [place] LTY STDY 5 [facility] ANTIMICRB INC INC IAL MICRO/AGA R DILUTJ APPLICATI 32934 [place] ON 5 [facility] MODALITY INC INC 1/> AREAS HOT/COLD PACKS APPL 47045 [place] MODALITY 5 [facility] 1/> AREAS INC INC ULTRASOUN D EA 15 MIN THERAPEUT 60601 [place] IC PX 1/> 5 [facility] AREAS INC INC EACH 15 MIN EXERCISES APPL 58624 [place] MODALITY 5 [facility] 1/> AREAS INC INC ELEC STIMJ UNATTENDE D APPL 64568 [place] MODALITY 5 [facility] 1/> AREAS INC INC ELEC STIMJ UNATTENDE D APPL 84172 [place] MODALITY 5 [facility] 1/> AREAS INC INC IONTOPHOR ESIS EA 15 MIN APPL 90200 [place] MODALITY 5 [facility] 1/> AREAS INC INC ULTRASOUN D EA 15 MIN APPLICATI 78609 [place] ON 5 [facility] MODALITY INC INC 1/> AREAS HOT/COLD PACKS APPLICATI 57848 [place] ON 5 [facility] MODALITY INC INC 1/> AREAS HOT/COLD PACKS APPL 03990 [place] MODALITY 5 [facility] 1/> AREAS INC INC ULTRASOUN D EA 15 MIN APPL 55401 [place] MODALITY 5 [facility] 1/> AREAS INC INC IONTOPHOR ESIS EA 15 MIN THERAPEUT 97086 [place] IC PX 1/> 5 [facility] AREAS INC INC EACH 15 MIN EXERCISES APPL 22649 [place] MODALITY 5 [facility] 1/> AREAS INC INC ELEC STIMJ UNATTENDE D COLLECTIO 30568 [facility] N VENOUS 5 N N BLOOD COMMUNTIY COMMUNTIY VENIPUNCT HOSPITA HOSPITA URE COMPREHEN 97486 [facility] SIVE 5 N N METABOLIC COMMUNTIY COMM[place]TI[place] [address] [facility] THYROID 5 N N STIMULATI COMMUNTIY COMMUNTIY NG HOSPITA HOSPITA HORMONE TSH ECG 23468 [facility] ROUTINE 5 N N ECG COMMUNTIY COMMUNTIY W/LEAST HOSPITA HOSPITA 12 LDS TRCG ONLY W/O I&R RADIOLOGI 78152 [facility] [place] DAUNTA C EXAM 5 RADIOLOGY SHA CHEST 2 VIEWS FRONTAL&L ATERAL BLOOD 12478 [facility] COUNT 5 N N COMPLETE COMMUNTIY COMMUNTIY AUTOMATED HOSPITA HOSPITA LIPID 79316 [facility] PANEL 5 N N COMMUNTIY COMMUNTIY HOSPITA HOSPITA THYROID 50571 [facility] HORM 5 N N UPTK/THYR COMMUNTIY COMMUNTIY OID HOSPITA [place] [address] [facility] THYROXINE 5 N N TOTAL COMMUNTIY COMMUNTIY HOSPITA HOSPITA CUL 02041 [facility] PRSMPTV 5 N N PTHGNC COMMUNTIY COMMUNTIY ORGANISM HOSPITA HOSPITA SCRN W/COLONY ESTIMJ PHYSICAL 97710 [place] [facility] THERAPY 5 [facility] EVALUATIO INC INC N COLLECTIO 56906 [place] N VENOUS 5 [facility] BLOOD INC INC VENIPUNCT URE FIBRIN 41783 [place] DGRADJ 5 [facility] PRODUCTS INC INC D-DIMER QUAL/SEMI GILBERT ECG 07046 [place] CHAVEZ JR ROUTINE 5 [facility] W/LEAST P 12 LDS I&[place] [address] [place] TROPONIN 5 [facility] QUANTITAT INC INC SABIHA BLOOD 11769 [place] COUNT 5 [facility] COMPLETE INC INC AUTO&AUTO DIFRNTL WBC URNLS DIP 92521 [place] [facility] 5 [facility] STICK/TAB INC INC LET REAGENT AUTO MICROSCOP Y ECG 39285 [place] ROUTINE 5 [facility] ECG INC INC W/LEAST 12 LDS TRCG ONLY W/O I&R RADIOLOGI 24290 [facility] CANSECO C EXAM 5 MEDICAL ADRIANNA CHEST 2 IMAGING VIEWS ASS FRONTAL&L ATERAL COMPREHEN 33563 [place] SIVE 5 [facility] METABOLIC INC INC PANEL COMPREHEN 32059 [place] SIVE 5 [facility] METABOLIC INC INC PANEL ECG 15715 [place] ROUTINE 5 [facility] ECG INC INC W/LEAST 12 LDS TRCG ONLY W/O I&[place] [address] [facility] HARLEEN ANGIOGRAP 5 MEDICAL ADRIANNA HY CHEST IMAGING W/CONTRAS ASS T/NONCONT RAST RADIOLOGI 24485 [facility] CANSECO C EXAM 5 MEDICAL ADRIANNA CHEST 2 IMAGING VIEWS ASS FRONTAL&L ATERAL BLOOD 62846 [place] [facility] COUNT 5 [facility] COMPLETE INC INC AUTO&[place] [address] [place] [facility] TROPONIN 5 [facility] QUANTITAT INC INC SABIHA LOCM Q9967 [place] [facility] 300-399 5 [facility] MG/ML INC INC IODINE CONCENTRA TION PER ML ECG 08127 [place] MATUTE ROUTINE 5 [facility] W/LEAST P 12 LDS I&R ONLY FIBRIN 14408 [place] DGRADJ 5 [facility]OS[facility] PRODUCTS INC INC D-DIMER QUAL/SEMI GILBERT RADEX 54157 [facility] ABBOTTHARLEEN SHOULDER 4 MEDICAL COMPLETE IMAGING MINIMUM 2 ASS VIEWS REPAIR 74247 ATKINS ATKINS COMPLEX 4 TRA TRA SCALP/ARM /LEG 1.1-2.5 CM LEVEL III 10424 SCALF LEI SCALF LEI SURG 4 PATHOLOGY GROSS&BRYCE ROSCOPIC EXAM DESTRUCTI 52334 ATKINS ATKINS ON BENIGN 4 TRA TRA LESIONS UP TO 14 THERAPEUT 39205 [place] IC 4 [facility] INJECTION INC [place] [address] [facility] CANSECO HEAD/BRAI 4 MEDICAL ADRIANNA N W/O IMAGING CONTRAST ASS MATERIAL ANES 10795 [place] BENSON UPPER GI 4 ANESTHESI JOSE ANGEL ENDOSCOPY A [place] [address] [facility] SURG [address] [facility] PATHOLOGY GROSS&BRYCE ROSCOPIC EXAM EGD 26079 [facility] SANCHEZ MICHELLE TRANSORAL 4 BIOPSY BARIATRIC SINGLE/MU SURGICAL LTIPLE SPECIAL 09406 [facility] STAIN 4 [facility] 1 MICROORGA NISMS I&R SPCL STN 17954 [facility], PICKLESIM 2 [facility] 4 [facility] ER JR WANDA EXCPT MICROORG/ ENZYME/IM CYT SPMTRY 05040 [place] [facility] W/VC 4 [facility] EXPIRATOR INC INC Y ABHI W/WO MXML VOL VNTJ LEVEL III 30233 SCALF LEI SCALF LEI SURG 4 PATHOLOGY GROSS&BRYCE ROSCOPIC EXAM EXC B9 65389 ADVANCED SCALF LEI LESION 4 DERMATOLO MRGN XCP GY SK TG S/N/H/F/G 1.1-2.0CM REPAIR 34707 ADVANCED SCALF LEI COMPLEX 4 DERMATOLO SCALP/ARM GY /LEG 1.1-2.5 CM RADIOLOGI 28373 [place] [facility] C EXAM 4 [facility] CHEST 2 INC INC VIEWS FRONTAL&L ATERAL REMOVAL 49741 ATKINS ATKINS SKN TAGS 4 TRA TRA MANAGER LAND FIBRQ TAGS ANY AREA UPW/15 CV STRS 99459 [place] MATUTE TST 4 [facility] RX CONT P ECG I&R ONLY CV STRS 30937 [place] [facility] TST 4 [facility] XERS&/OR INC INC RX CONT ECG TRCG ONLY ECHO 23701 MELANIE MARTINEZ TTHRC R-T 4 MEDICAL ALI 2D SERV W/WOM-MOD FOUNDATIO E COMPL SPEC&COLR D RADIOLOGI 38521 [facility] C EXAM 4 MEDICAL CARMEN CHEST 2 IMAGING VIEWS ASS FRONTAL&L ATERAL ECG 17258 [place] ROUTINE 4 [facility] ECG INC INC W/LEAST 12 LDS TRCG ONLY W/O I&R RADIOLOGI 86685 [place] C 4 [facility] EXAMINATI INC INC [place] [address] [place] [facility] TROPONIN 4 [facility] QUANTITAT INC INC SABIHA BLOOD 35401 [place] COUNT 4 [facility] COMPLETE INC INC AUTO&AUTO DIFRNTL WBC ECG 80839 SCOTT CHAVEZ JR ROUTINE 4 DWI DWI ECG W/LEAST 12 LDS I&R ONLY BASIC 99495 [place] [facility] METABOLIC 4 [facility] PANEL INC INC CALCIUM TOTAL ECG 90849 GIOVANI BORDENSON ROUTINE 4 DOMINIQUE DOMINIQUE ECG W/LEAST 12 LDS I&R ONLY FIBRIN 88423 [place] DGRADJ 4 [facility] PRODUCTS INC INC D-DIMER QUAL/SEMI GILBERT CREATINE 91387 [place] KINASE 4 [facility] TOTAL INC INC CREATINE 69949 [place] KINASE MB 4 [facility] FRACTION INC INC ONLY BLOOD 15061 [place] COUNT 4 [facility] COMPLETE INC INC AUTO&[place] [address] [place] TROPONIN 4 [facility] QUANTITAT INC INC SABIHA ECG 93382 [place] ROUTINE 4 [facility] ECG INC INC W/LEAST 12 LDS TRCG ONLY W/O I&R RADIOLOGI 38908 [place] C EXAM 4 [facility] CHEST 2 INC INC VIEWS FRONTAL&L ATERAL COMPREHEN 44856 [place] SIVE 4 [facility] METABOLIC INC INC PANEL HEMOGLOBI 52742 COMBINED COMBINED N 4 PHYSICIAN PHYSICIAN GLYCOSYLA S LA S LA LANEY A1C LIPID 83141 COMBINED COMBINED PANEL 4 PHYSICIAN PHYSICIAN S LA S LA CYANOCOBA 63762 COMBINED COMBINED LYUBOV 4 PHYSICIAN PHYSICIAN VITAMIN S LA S LA B-12 25 25246 COMBINED COMBINED HYDROXY 4 PHYSICIAN PHYSICIAN INCLUDES S LA S LA FRACTIONS IF PERFORMED GENERAL 25738 COMBINED COMBINED HEALTH 4 PHYSICIAN PHYSICIAN PANEL S LA S LA SEDIMENTA 22977 COMBINED COMBINED TION RATE 4 PHYSICIAN PHYSICIAN [place] [address] COMBINED COMBINED FREE 4 PHYSICIAN PHYSICIAN THYROXINE S LA S LA COMPUTER- 30564 [place] AIDED 4 [facility] DETECTION INC INC SCREENING MAMMOGRAP HY SCREENING G0202 [place] 4 [facility] MAMMOGRAP INC INC HY WILBERT INCL CAD WHEN PERFORMD LIPID 82161 [facility] PANEL 4 DIAGNOSTI DIAGNOSTI CS CS IIV3 67528 DHS/CO [place] VACCINE 9 [facility] VIRUS 0.5 BANK ACCT ML DOSAGE IM USE RADEX HIP 38130 [place] 9 [facility] UNILATERA INC INC L COMPLETE MINIMUM 2 VIEWS RADEX 98331 MOHAN ANKUR, SPINE 9 [facility] LUMBSCRL CORPORATI COMPL ON W/BENDING VIEWS MIN 6 RADIOLOGI 56654 [facility] Cliff MOISE 9 MEDICAL MAX P EXAMINATI IMAGING ON PELVIS ASSOCIATE 1/2 S VIEWS RADEX 64283 [facility] SUMA, SPINE 9 MEDICAL MAX P LUMBOSACR IMAGING AL ASSOCIATE MINIMUM 4 S VIEWS Encounters Encounter Start End Date Code Location Performer Type Date [facility] [place] [facility] 7 7 [facility] OUTPATIEN INC T OFFICE 75998 [place] OUT[facility] 7 7 [facility] T VISIT 5 INC MINUTES EMERGENCY 97005 [place] 7 7 [facility] T VISIT MODERATE SEVERITY EMERGENCY 82742 [facility] DEPT 7 7 PHYSICIAN VISIT S, [facility] HIGH SEVERITY& THREAT [facility] [place] - 7 7 [facility] OUTPATIEN [facility] - 7 7 HEALTH OUTPATIEN [place] T OFFICE 88362 [place] [facility] OUTPATIEN 7 7 [place] T VISIT INTERNAL 15 MED MINUTES [facility] - 7 7 HEALTH OUTPATIEN [place] T OFFICE 84001 [place] CELI OUTPATIEN 7 7 [facility] T VISIT HOSPITAL 10 P MINUTES OFFICE 34870 [facility] OUTPATIEN 7 7 HEALTH T VISIT MEDICAL 25 GROUP MINUTES [facility] [place] - 7 7 [facility] OUTPATIEN INC T OFFICE 16310 YVETTE AVINA OUTPATIEN 7 7 MD RHIANNON, T VISIT PSC 15 MINUTES OFFICE 97874 [place] [facility] 7 7 [facility] T VISIT INC 10 MINUTES [facility] [place] [facility] OUTPATIEN INC T OFFICE 90089 [place] OUTPATIEN 7 7 [facility] T VISIT 5 INC MINUTES OFFICE 93648 [place] WEISS JR OUTPATIEN 7 7 [facility] T VISIT HOSPITAL 10 P MINUTES EMERGENCY 51521 [place] 7 7 [facility] DEPARTMEN INC T VISIT LOW/MODER SEVERITY [facility] [place] [facility] OUTPATIEN INC T EMERGENCY 16378 S[facility] PASCUAL DEPT 7 7 PHYSICIAN VISIT S, PLLC HIGH SEVERITY& THREAT FUNCJ OFFICE 60504 [place] ALATORRE OUTDAYRON 7 7 [facility] T VISIT HOSPITAL 10 P MINUTES [facility] [place] [facility] OUTPATIEN INC T [facility] [place] [facility] OUTPATIEN INC T EMERGENCY 52788 [place] 7 7 [facility] DEPARTMEN INC T VISIT HIGH/URGE NT SEVERITY [facility] [place] [facility] OUTPATIEN INC T OFFICE 04766 [place] GIOVANI OUTPATINEENA 7 7 [facility] T VISIT INTERNAL 15 MED MINUTES PERIODIC 38375 [facility] HUMPHREY PREVENTIV 7 7 PHYSICIAN E MED EST S GROUP PATIENT [id number] [facility] [place] [facility] 7 [facility] OUTPATIEN INC T OFFICE 63559 [facility] MAEGAN CHAND 7 7 PHYSICIAN T VISIT S GROUP 15 MINUTES EMERGENCY 02596 [facility] JAQUEZ 7 7 PHYSICIAN DEPARTMEN S, [facility] T VISIT HIGH/URGE NT SEVERITY [facility] [place] [facility] OUTPATIEN INC T OFFICE 20692 [place] ALATORRE OUTPATIEN 7 7 [facility] T VISIT HOSPITAL 10 P MINUTES OFFICE 85851 YVETTE JURADO OUTPATIEN 7 7 MD RHIANNON, T VISIT PSC 10 MINUTES [facility] [place] [facility] OUTPATIEN INC T [facility] [place] [facility] OUTPATIEN INC T [facility] [place] [facility] OUTPATIEN INC T OFFICE 74580 [facility] KIMBERLY OUTPATIEN 7 7 PHYSICIAN T VISIT S GROUP 25 MINUTES [facility] [place] [facility] OUTPATIEN INC T OFFICE 52569 [facility] ISSA OUTPATIEN 7 7 PHYSICIAN T VISIT S GROUP 10 MINUTES OFFICE 59670 YVETTE AVINA OUTPATIEN 7 7 MD RHIANNON, T NEW 30 PSC MINUTES OFFICE 36471 [place] [facility] 7 7 [facility] T VISIT 5 INC MINUTES [facility] [place] [facility] OUTPATIEN INC [facility] [place] [facility] OUTPATIEN INC T EMERGENCY 53804 S[facility]LEY SOTOMAYOR 7 7 PHYSICIAN JR RADHA Reddy [facility] T VISIT HIGH/URGE NT SEVERITY [facility] [place] [facility] 7 [facility] OUTPATIEN INC T OFFICE 17571 [facility] KIMBERLY OUTPATIEN 7 7 PHYSICIAN T VISIT S GROUP 25 MINUTES OFFICE 57546 [place] M[place]ISON OUTPATIEN 7 7 [facility] T VISIT INTERNAL 15 MED MINUTES [facility] [place] [facility] OUTPATIEN INC T OFFICE 02213 [facility] KIMBERLY OUTPATIEN 7 7 PHYSICIAN T VISIT S GROUP 25 MINUTES OFFICE 96015 ANGELITO ADAMS OUTPATIEN 7 7 [place] T VISIT ORTHOPAED 15 IC MINUTES [facility] [place] [facility] OUTPATIEN INC T EMERGENCY 28085 [place] 7 7 [facility] DEPARTMEN INC T VISIT HIGH/URGE NT SEVERITY EMERGENCY 62961 [facility] ARMIJO DEPT 7 7 PHYSICIAN VISIT S, [facility] HIGH SEVERITY& THREAT FUNCJ OFFICE 77689 [place] GIOVANI OUTPATIEN 7 7 [place] T VISIT INTERNAL 25 MED MINUTES [facility] [place] [facility] OUTPATIEN INC T OFFICE 18382 [place] CHAND 7 7 [facility] T VISIT 5 INC MINUTES OFFICE 89195 [facility] OUTPATI 7 7 [place] T NEW 30 ORTHOPAED MINUTES IC EMERGENCY 14720 [place] 7 7 [facility] DEPARTMEN INC T VISIT LOW/MODER SEVERITY [facility] [place] [facility] 7 [facility] OUTPATIEN INC T EMERGENCY 15662 [facility] JIMENEZ DEPT 7 7 PHYSICIAN U VISIT S, [facility] HIGH SEVERITY& THREAT FUN [facility] [place] [facility] 7 [facility] OUTPATIEN INC T [facility] [place] [facility] 7 [facility] OUTPATIEN INC T EMERGENCY 60550 [place] 7 7 [facility] DEPARTMEN INC T VISIT MODERATE SEVERITY EMERGENCY 12784 [place] 7 7 [facility] DEPARTMEN INC T VISIT LOW/MODER SEVERITY [facility] [place] [facility] 7 [facility] OUTPATIEN INC T EMERGENCY 07499 SMI[facility] PASCUAL 7 7 PHYSICIAN DEPARTMEN S, [facility] T VISIT HIGH/URGE NT SEVERITY OFFICE 94762 [place] [facility] 7 7 [facility] T VISIT 5 INC MINUTES [facility] [place] [facility] OUTPATIEN INC T OFFICE 75865 [place] OUTPATIEN 7 7 [facility] T VISIT INTERNAL 15 MED MINUTES EMERGENCY 67[facility] [address] [facility] EMERGENCY T VISIT PHYS MODERATE SEVERITY EMERGENCY 07929 [place] 7 7 [facility] T VISIT LOW/MODER SEVERITY [facility] [place] - 7 7 [facility] T OFFICE 00991 [place] [facility]IEN 7 7 [facility] T VISIT 5 INC MINUTES [facility] [place] [facility] 7 7 [facility] OUTPATIEN INC T OFFICE 00274 [place] OUT[facility] 7 7 [facility] T VISIT INTERNAL 15 MED MINUTES OFFICE 71149 [place] [facility] 7 7 [facility] T VISIT 5 INC MINUTES EMERGENCY 32639 S[facility] MEDEROS 7 7 PHYSICIAN [facility] S, [facility] T VISIT MODERATE SEVERITY [facility] [place] [facility] 7 [facility] OUTPATIEN INC T [facility] [place] [facility] 7 [facility] OUTPATIEN INC T OFFICE 01584 [place] [facility] 7 7 [facility] T VISIT 5 INC MINUTES OFFICE 46358 [place] [facility] 7 7 [facility] T VISIT INTERNAL 25 MED MINUTES [facility] [place] [facility] OUTPATIEN INC T OFFICE 57189 [place] [facility] 7 7 [facility] T NEW 10 INC MINUTES OFFICE 22790 [facility] JASSO OUTPATIEN 7 7 T VISIT 25 MINUTES [facility] 7 [facility]ALTH OUTPATIEN [facility] T EMERGENCY 00423 [place] 7 7 [facility] VISIT LIMITED/M [facility] [place] [facility] 7 7 [facility]PATIEN [facility] [place] [facility] 7 7 [facility]PATIEN [facility] EMERGENCY 06911 [place] 7 7 [facility] T VISIT LOW/MODER SEVERITY EMERGENCY 66307 SMILEY PASCUAL 7 7 [facility], [facility] T VISIT MODERATE SEVERITY EMERGENCY 12909 [place] 7 7 [facility] VISIT LIMITED/M [facility] [place] - 7 7 [facility] 7 7 [facility] 63949 SMILEY SOTOMAYOR, 6 6 PHYSICIAN [facility], [facility] HIGH/URGE NT SEVERITY [facility] [place] [facility] 6 6 [facility]96 [facility] 6 6 [facility] [place] [facility] 6 6 [facility] 91432 SMILEY JAQUEZ 6 6 PHYSICIAN [facility] HIGH/URGE NT [facility]VERITY EMERGENCY 62284 [place] 6 6 [facility] T VISIT MODERATE SEVERITY EMERGENCY 22876 SMI[facility] ARMIJO 6 6 [facility]IS[facility] MODERATE SEVERITY EMERGENCY 30280 SMILEY PASCUAL 6 6 PHYSICIAN BRYCE GARCIA [facility] MODERATE SEVERITY [facility] [place] [facility] 6 6 [facility] EMERGENCY 02317 [place] 6 6 [facility] T VISIT LOW/MODER SEVERITY OFFICE 17160 SCIF[facility] SCIFRES OUTPATIEN 6 6 ANG ANG T VISIT 10 MINUTES OFFICE 89024 LUIS MCDANIELS OUTPATIEN 6 6 [place] OFELIA T VISIT INTERNAL 15 MED MINUTES OFFICE 66779 [facility] MICHELLE OUTPATIEN 6 6 T VISIT BARIATRIC 25 SURGICAL MINUTES [facility] [place] [facility] 6 6 [facility] T EMERGENCY 29997 SMILEY SOTOMAYOR 6 6 PHYSICIAN JR [facility], [facility] HIGH/URGE NT SEVERITY EMERGENCY 21708 [place] 6 6 [facility] T VISIT LOW/MODER SEVERITY EMERGENCY 67984 SMI[facility] PASCUAL 6 6 PHYSICIAN [facility] T VISIT MODERATE SEVERITY OFFICE 37579 [facility] 6 [facility] T VISIT MEDICAL 15 G MINUTES [facility] [place] [facility] 6 6 [facility] T OFFICE 55739 [facility] HUMPHREY OUTPATIEN 6 6 PHYSICIAN MEAGAN T VISIT S GROUP 15 MINUTES OFFICE 83617 [facility] ISSA OUTPATIEN 6 6 PHYSICIAN JARON T VISIT S GROUP 10 MINUTES [facility] [place] [facility] [place] [facility] [place] [facility] T EMERGENCY 97506 [place] 6 6 [facility] DE[facility] INC T VISIT MODERATE SEVERITY OFFICE 65400 [facility] ISSA OUTPATIEN 6 6 PHYSICIAN JARON T VISIT S GROUP 10 MINUTES OFFICE 32070 [place] [facility] OUT[facility]IEN 6 6 [facility] 10 P MINUTES OFFICE 84913 [facility] 6 6 HEALTH IV HEN T VISIT MEDICAL 15 GROUP MINUTES OFFICE 29172 PERLA RODRIGUEZ TRI OUTPATIEN 6 6 GROUND T VISIT FAMILY 25 CLINI MINUTES OFFICE 09595 [facility]ISIT 5 HLTH DEPT HLTH DEPT MINUTES JAZZ JAZZ EMERGENCY 28932 SMILEY SANDHUH 6 6 PHYSICIAN TAQUERIA DALE T VISIT HIGH/URGE NT SEVERITY EMERGENCY 55764 [place] 6 6 [facility] T VISIT LOW/MODER SEVERITY [facility] [place] [facility] T [facility] [place] [facility] T OFFICE 44889 [facility] KIMBERLY OUTPATIEN 6 6 PHYSICIAN JULIUS T VISIT S GROUP 25 MINUTES OFFICE 23018 [facility] S[facility] OUTPATIEN 6 6 T VISIT BARIATRIC 25 SURGICAL MINUTES EMERGENCY 54021 SMILEY PASCUAL 6 6 PHYSICIAN SILVIO WHEELERC T VISIT MODERATE SEVERITY OFFICE 93357 [facility] KIMBERLY OUTPATIEN 6 6 PHYSICIAN MAT Berenice NEW 45 S GROUP MINUTES [facility] [place] [facility] 6 6 [facility] OUTPATIEN INC T OFFICE 01126 [facility]ER[facility] ROSENTHAL MAR OUTPATIEN 6 6 PARTNERS T VISIT OF [place] 40 CO MINUTES EMERGENCY 34649 SMI[facility] JIMENEZ 6 6 PHYSICIAN TAQUERIA HAWK T VISIT HIGH/URGE NT SEVERITY [facility] [place] [facility] 6 6 [facility] OUTPATIEN INC T EMERGENCY 78343 SMILEY PASCUAL 6 6 PHYSICIAN SILVIO WHEELERC T VISIT MODERATE SEVERITY EMERGENCY 79307 [place] 6 6 [facility] T VISIT LOW/MODER SEVERITY OFFICE 98980 CINTHYA RODRIGUEZ SHABANA OUTPATIEN 6 6 N T VISIT NEUROLOGY 10 MINUTES [facility] [place] [facility] OUT[facility] T EMERGENCY 58343 SMILEY SOTOMAYOR 6 6 PHYSICIAN JR [facility]ILLINGS DEPARTMEN S, PLLC T VISIT MODERATE SEVERITY [facility] [place] [facility] 6 6 [facility] OUT[facility] T EMERGENCY 43045 SMIELY PASCUAL DEPT 6 6 PHYSICIAN BRYCE VISIT S, PLLC HIGH SEVERITY& THREAT FUNCJ OFFICE 11786 [place] [facility] 6 [facility] VIS[facility] 10 P MINUTES EMERGENCY 68928 SMILEY SOTOMAYOR 6 6 PHYSICIAN JR [facility] T VISIT HIGH/URGE NT SEVERITY EMERGENCY 43327 [place] 6 6 [place] [facility] DEPARTMEN INC T VISIT MODERATE SEVERITY [facility] [place] [facility] 6 6 [facility] OUTPATIEN INC T OFF[facility] 87518 [place] [facility] 6 6 [facility] 10 P MINUTES EMERGENCY 77621 SMILEY PASCUAL DEPT 6 6 PHYSICIAN BRYCE VISIT S, PLLC HIGH SEVERITY& THREAT FUNCJ OFFICE 81493 ALLERGY ROSENTHAL MAR CONSULTAT 6 6 [facility] [place] NEW/ESTAB CO PATIENT 60 MIN EMERGENCY 61558 SMILEY PASCUAL 6 6 PHYSICIAN BRYCE DEPARTMEN S, PLLC T VISIT MODERATE SEVERITY EMERGENCY 59829 SMILEY PASCUAL DEPT 6 6 PHYSICIAN BRYCE VISIT S, PLLC HIGH SEVERITY& THREAT FUNCJ [facility] [place] [facility] 6 6 [facility] OUTPATIEN INC T EMERGENCY 89084 SMILEY SUGGS [facility] 6 6 PHYSICIAN DEPARTMEN S, PLLC T VISIT LOW/MODER SEVERITY OFFICE 65614 [facility] OUTPATIEN 6 6 PHYSICIAN T VISIT S GROUP 25 MINUTES [facility] [place] [facility] 6 6 [facility] OUTPATIEN INC T EMERGENCY 70387 SMILEY PASCUAL 6 6 PHYSICIAN BRYCE DEPARTMEN S, PLLC T VISIT MODERATE SEVERITY EMERGENCY 04298 [place] 6 6 [facility] DEPARTMEN INC T VISIT LOW/MODER SEVERITY [facility] - 6 6 N OUTPATIEN COMMUNTIY T HOSPITA OFFICE 92876 [facility] OUTPAT[facility] 6 6 PHYSICIAN JARON T NEW 20 S GROUP MINUTES EMERGENCY 46770 SMILEY ARMIJO DEPT 6 6 PHYSICIAN CASANDRA VISIT S, [facility] HIGH SEVERITY& THREAT FUNCJ EMERGENCY 13480 SMILEY PASCUAL 6 6 PHYSICIAN [facility] DEPARTMEN S, [facility] T VISIT HIGH/URGE NT SEVERITY [facility] - 6 6 N OUTPATIEN COMMUNTIY T HOSPITA OFFICE 89934 [facility] 6 T VISIT BARIATRIC 25 SURGICAL MINUTES EMERGENCY 44311 SMILEY PASCUAL DEPT 6 6 PHYSICIAN BRYCE VISIT S, [facility] HIGH SEVERITY& THREAT FUNCJ [facility] 6 6 HEALTH OUTPATIEN [place] T EMERGENCY 85288 [facility] 6 6 HEALTH DEPARTMEN F[place] T VISIT MODERATE SEVERITY [facility] [place] [facility] 6 6 [facility] OUTPAT[facility] INC T EMERGENCY 30127 SMILEY BAGLEY DEPT 6 6 PHYSICIAN FOR VISIT S, [facility] HIGH SEVERITY& THREAT FUNCJ EMERGENCY 72900 [place] 6 6 [facility] DEPARTMEN INC T VISIT LOW/MODER SEVERITY [facility] [place] [facility] 6 6 [facility] OUTPATIEN INC T EMERGENCY 49623 SMILEY PASCUAL 6 6 PHYSICIAN BRYCE DEPARTMEN S, PLLC T VISIT HIGH/URGE NT SEVERITY EMERGENCY 81480 SMILEY ES [facility] 6 6 PHYSICIAN DEPARTMEN S, PLLC T VISIT HIGH/URGE NT SEVERITY EMERGENCY 85706 CHRIS GRIGGSLEY 6 6 [place] JOSE ANGEL DEPARTMEN EMERGENCY T VISIT PHYS HIGH/URGE NT SEVERITY [facility] - 6 6 N OUTPATIEN COMMUNTIY T HOSPITA EMERGENCY 54491 [place] DEPT 6 6 [facility] VISIT INC HIGH SEVERITY& THREAT FUN [facility] [place] - 6 6 [facility] OUTPATI[facility] INC T OFFICE 24585 [facility] CONSULTAT 6 6 N ION NEUROLOGY NEW/ESTAB PATIENT 60 MIN OFFICE 57495 [facility] OUT[facility] 6 6 MATTI MATTI T NEW 30 MINUTES OFFICE 67601 SCALF LEI SCALF LEI OUTPATIEN 6 6 T VISIT 25 MINUTES EMERGENCY 50470 SMILEY PASCUAL DEPT 6 6 PHYSICIAN BRYCE VISIT S, [facility] HIGH SEVERITY& THREAT FUNCJ OFFICE 55600 [place] [facility] OUTPATIEN 6 6 [facility] T VISIT INTERNAL 15 MED MINUTES [facility] - 6 6 [facility]ALTH OUTPATIEN [facility] [place] - 6 6 [facility] OUTPATI[facility] INC T EMERGENCY 39753 SMILEY PASCUAL DEPT 6 6 PHYSICIAN BRYCE VISIT S, PLLC HIGH SEVERITY& THREAT FUNCJ OFFICE 09325 [facility] 6 6 HEALTH KADIE T VISIT MEDICAL 15 GROUP MINUTES OFFICE 86374 [facility] MICHELLE OUTPATIEN 6 6 T VISIT BARIATRIC 25 SURGICAL MINUTES [facility] [place] [facility] 6 6 [facility] OUTPATI[facility] INC T OFFICE 80077 [place] [facility] OUTPATIEN 6 6 [place] OFELIA T VISIT INTERNAL 15 MED MINUTES INITIAL 00415 [facility] PREVENTIV 6 6 PHYSICIAN E S GROUP MEDICINE NEW PATIENT 40-64YRS OFFICE 88065 [facility] OUT[facility] 6 6 PRIMARY KADIE T VISIT CARE OF [address] [facility] [place] - 6 6 [facility] OUTPATIEN INC T OFFICE 74381 [place] OUTPATIEN 6 6 [place] OFELIA T VISIT INTERNAL [address] [facility] [place] - 6 6 [facility] OUTPATIEN INC T OFFICE 30953 WENDY SANCHEZ MICHELLE OUTPATIEN 5 5 T VISIT BARIATRIC 25 SURGICAL MINUTES OFFICE 77953 ATKINS ATKINS OUTPATIEN 5 5 TRA TRA T VISIT 25 MINUTES PERIODIC 76696 [facility] EST HLTH DEPT HLTH DEPT PATIENT JAZZ JAZZ 40-64YRS OFFICE 37141 WENDY SANCHEZ MICHELLE OUTPATIEN 5 5 T VISIT BARIATRIC [address] [facility] [place] - 5 5 [facility] OUTPATIEN INC T OFFICE 86751 [place] [facility] OUTPATIEN 5 5 [place] OFELIA T NEW 30 INTERNAL MINUTES [facility] [place] - 5 5 [facility] OUTPATIEN INC T OFFICE 36740 [facility] PETTEY OUTPATIEN 5 5 PHYSICIAN JAM T VISIT S GROUP 15 MINUTES OFFICE 46450 GASTROENT CASE JUS OUTPATIEN 5 5 EROLOGY T VISIT AND 15 HEPATOL MINUTES OFFICE 47951 [facility] OUT[facility] 5 5 HEALTH KADIE T VISIT MEDICAL [address] [facility] [place] - 5 5 N OUTPATIEN [facility] 10371 [place] 5 5 [facility] DEPARTMEN INC T VISIT HIGH/URGE NT SEVERITY [facility] [place] [facility] 5 5 [facility] OUTPATIEN INC T [facility] [place] - 5 5 N OUTPATIEN COMMUNTIY [facility] [place] - 5 5 [facility] OUTPATIEN INC T OFFICE 10267 GASTROENT CASE JUS OUTPATIEN 5 5 EROLOGY T NEW 45 AND MINUTES HEPAT [facility] [place] - 5 5 [facility] OUTPATIEN INC EMERGENCY 54595 [place] 5 5 [facility] DEPARTMEN INC T VISIT LOW/MODER SEVERITY OFFICE 25682 DANIEL SANCHEZ OUTPATIEN 5 5 [facility] HU[facility] T VISIT 15 MINUTES [facility] [place] - 5 5 [facility] OUTPATIEN INC T EMERGENCY 60355 [place] 5 5 [facility] DEPARTMEN INC T VISIT MODERATE SEVERITY [facility] 5 N OUTPATIEN COMMUNTIY [facility] [place] - 5 5 N OUTPATIEN COMMUNTIY [facility] [place] - 5 5 N INPATIENT COMMUNTIY [facility] [place] - 5 5 [facility] OUTPATIEN INC T OFFICE 26045 WENDY MARTINEZ OUTPATIEN 5 5 T VISIT BARIATRIC 40 SURGICAL MINUTES OFFICE 37913 DANIEL SANCHEZ OUTPATIEN 5 5 HU[facility] HUBER T VISIT 15 MINUTES EMERGENCY 69403 [place] 5 5 [facility] DEPARTMEN INC T VISIT LOW/MODER SEVERITY [facility] [place] [facility] 5 5 [facility] OUTPATIEN [facility] [place] [facility] 5 5 [facility]PAT[facility] T [facility] [place] [facility] 5 5 N OUTPATIEN COMMUNTIY [facility] [place] [facility] 5 [facility]PAT[facility] T [facility] [place] [facility] 5 5 [facility] OUTPATIEN INC T OFFICE 06186 [place] CELI OUTPATIEN [address] MINUTES P OFFICE 08750 MELANIE NOGUEIRA OUTPATIEN 5 5 MEDICAL JAM T VISIT SERV 15 FOUNDATIO MINUTES N OFFICE 15544 [place] WEISS JR OUTPATIEN [address] MINUTES P OFFICE 33692 [facility] PETTEMago OUTPATIEN 5 5 PHYSICIAN JAM T NEW 30 S GROUP MINUTES OFFICE 28256 [facility] FALLU CONSULTAT 5 5 [facility] MEDICAL NEW/ESTAB G PATIENT 60 MIN OFFICE 39570 DANIEL TOLEDOPATINEENA 5 5 HU[facility] HUBER T VISIT 15 MINUTES [facility] [place] - 5 5 [facility] OUTPATIEN INC T EMERGENCY 52428 [place] 5 5 [facility] T VISIT HIGH/URGE NT SEVERITY EMERGENCY 55000 [place] ESCOTO 5 5 [facility] T VISIT P MODERATE SEVERITY EMERGENCY 83090 [place] 5 5 [facility] INC T VISIT HIGH/URGE NT SEVERITY [facility] [place] - 5 5 [facility] OUTPATIEN INC T OFFICE 59712 DANIEL CHAND 5 5 [facility] HU[facility] T VISIT 15 MINUTES OFFICE 69288 DANIEL CHAND 4 4 [facility] T VISIT 15 MINUTES EMERGENCY 74411 [place] WINTERS [address] [facility] T VISIT P LOW/MODER SEVERITY [facility] [place] - 4 4 [facility] OUTPATIEN INC T OFFICE 58833 DANIEL CHAND 4 4 [facility] HUBER T VISIT 15 MINUTES [facility] [place] - 4 4 [facility] OUTPATIEN INC T EMERGENCY 06603 [facility] DEPT 4 4 ROSALEE VISIT EMERGENCY HIGH PHYS SEVERITY& THREAT [facility] - 4 4 N OUTPATIEN COMMUNITY T HOSPITA OFFICE 62234 DANIEL CHAND 4 4 [facility] HUBER T VISIT 15 MINUTES OFFICE 10039 MONALISA CHAPIN CONSULTAT 4 4 KADIE ION CARDIOLOG NEW/ESTAB Y AT CENT PATIENT 40 MIN OFFICE 59906 MELANIE NOGUEIRA CONSULTAT 4 4 MEDICAL JAM ION SERV NEW/ESTAB FOUNDATIO PATIENT N 60 MIN [facility] [place] - 4 4 [facility] OUTPATIEN INC [facility] [place] - 4 4 [facility] OUTPATIEN INC T OFFICE 81949 DANIEL CHAND 4 4 [facility] HU[facility] T VISIT 15 MINUTES OFFICE 89006 ATKINS ATKINS CONSULTAT 4 4 TRA TRA ION NEW/ESTAB PATIENT 40 MIN OFFICE 18094 [facility] 4 4 [facility] T VISIT MEDICAL 15 G MINUTES [facility] [place] - 4 4 [facility] OUTPATIEN INC T OFFICE 98469 [facility] FALLUJI OUTPATIEN 4 4 [facility] T NEW 30 MEDICAL MINUTES G EMERGENCY 87708 [facility] DEPT 4 4 ROSALEE MOH VISIT EMERGENCY HIGH PHYSI SEVERITY& THREAT [facility] [place] - 4 4 [facility] OUTPATIEN INC T EMERGENCY 23764 HORTENCIA HUGHES DEPT 4 4 VISIT HIGH SEVERITY& THREAT FUN EMERGENCY 29025 [place] 4 4 [facility] DEPARTMEN INC T VISIT MODERATE SEVERITY EMERGENCY 19417 ANKUR PASCUAL DEPT 4 4 BRYCE BRYCE VISIT HIGH SEVERITY& THREAT [facility] [place] - 4 4 [facility] OUTPATIEN INC T OFFICE 59481 DANIEL SANCHEZ OUTPATIEN 4 4 HU[facility] HUBER T VISIT 15 MINUTES EMERGENCY 98625 [place] 4 4 [facility] DEPARTMEN INC T VISIT HIGH/URGE NT SEVERITY OFFICE 40852 [facility] MICHELLE CONSULTAT 4 4 ION NEW/ESTAB PATIENT 80 MIN OFFICE 49358 DANIEL SANCHEZ OUTPATINEENA 4 4 HUBER HUBER T NEW 30 MINUTES [facility] [place] - 4 4 [facility] OUTPATIEN INC T OFFICE 44923 MAEGAN ISSA OUTPATIEN 4 4 JARON JARON T VISIT 5 MINUTES OFFICE 49372 MAEGAN ISSA OUTPATINEENA 4 4 JARON JARON T NEW 30 MINUTES Emergency PATRIC Burnett MD (ER) 4 16:35 4 17:31 [facility] Emergency PATRIC BURNETT (ER) 3 16:45 3 18:19 [facility] [place] - 9 9 [facility] OUTPATIEN INC T EMERGENCY 55565 KIMBERLEE PASCUAL, 9 9 [facility] T VISIT ON HIGH/URGE NT SEVERITY EMERGENCY 34768 [place] 9 9 [facility] DEPARTMEN INC T VISIT LOW/MODER SEVERITY
[2017-06-20 20:03] LABS: HEMOGLOBIN 13.6 g/dL (12.2-16.2); LYMPH # 1.6 K/mm3 (0.7-4.5); LYMPH % 25.6 % (10-50.0)
--- OUTSIDE RECORDS SUMMARY | 2017-06-20 20:17 | External Medical Summary Rpt ---
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 OTHER MEDICAL SLIPPING IMAGING TRIPPING OR ASSOCIATES [...] MA M CY 25 MG CA P VE 00 06 07 18 16 00 CL Ac NT 17 -1 -1 .0 00 IN ti OL 30 5- 4- 00 00 IC ve IN 68 20 20 41 22 17 17 47 PH HF 0 47 AR A MA 90 CY MC G IN CARTY LE R IS 62 06 07 30 30 00 [...] CY MG TA BL ET ON 67 06 07 15 3 00 [...] MA 5 CY MG TA BL ET OX 62 06 07 30 30 00 [...] YL 15 2- 7- 00 01 ve IL 02 20 20 18 AI ED 20 17 17 75 D NI 7 72 PH SO AR LO MA NE CY 4 #3 MG 93 8 DO SE PK LO 68 06 07 30 30 00 CL Ac VA 18 -0 -0 .[address] 00 8- 7- 00 00 IC ve AT 46 20 20 43 IN 80 17 17 34 PH 1 26 AR 20 MA CY MG TA BL ET MO 16 06 07 30 30 00 CL Ac NT 72 -0 -0 .0 00 IN ti EL 90 8- 7- 00 00 IC ve UK 11 20 20 41 91 17 17 09 PH T 7 31 AR SO MA D CY 10 MG TA BL ET 64 06 07 [...] 17 79 PH E 6 94 AR IL MA OP CY 50 MC G SP RA Y GA 45 05 06 90 30 00 [...] 43 ZA 60 17 17 25 PH IL 1 00 AR IN MA E CY [...] CY 40 MG CA PS UL E IS 62 05 06 30 30 00 [...] MA M CY 25 MG CA P OX 62 05 06 30 30 00 CL Ac YB 17 -1 -0 .0 00 IN ti UT 50 2- 9- 00 00 IC ve YN 27 20 20 43 IN 13 17 17 09 PH 7 28 AR CL MA CY ER 10 MG TA BL ET MO 27 05 06 30 30 00 CL Ac NT 24 -1 -0 .0 00 IN ti EL 10 1- 9- 00 00 IC ve UK 01 20 20 [...] .0 00 IN ti IC 30 1- 00 IC ve 70 20 20 42 ON 01 17 17 79 PH E 6 94 AR IL MA OP CY 50 MC G SP RA Y BU 00 05 06 90 30 00 CL Ac SP 37 -1 -0 .0 00 IN ti IR 81 1- 9- 00 IC ve ON 15 20 20 42 E 00 17 17 82 PH HC 1 15 AR L MA 10 CY MG TA BL ET RI 13 05 06 30 30 00 CL Ac SP 66 -1 -0 .0 00 IN ti ER 80 1- 00 IC ve ID 03 20 20 42 ON 66 17 17 35 PH E 0 23 AR 0. MA 5 CY MG TA BL ET VE 68 05 06 30 30 00 CL Ac NL 38 -1 -0 .0 00 IN ti AF 20 5- 00 IC ve AX 03 20 20 42 IN 40 17 17 89 PH E 6 94 AR HC MA L CY ER 37 .5 MG CA P AM 66 05 06 20 10 00 RI Ac OX 68 -1 -0 .0 00 TE ti -C 51 01 ve LA 00 20 20 18 AI V 10 17 17 35 D 87 0 20 PH 5- AR 12 MA 5 CY MG #3 TA 93 BL 8 ET LO 61 05 06 30 30 00 RI Ac VA 44 -1 -0 .0 [address] 20 01 ve AT 14 20 20 18 AI IN 20 17 17 36 D 1 68 PH 20 AR MA MG CY TA #3 BL 93 ET 8 ON 67 05 05 15 3 00 CL Ac DA 87 -0 -2 .0 00 IN ti NS 70 1- 6- 00 IC ve ET 16 20 20 [...] MA M CY 25 MG CA P LI 00 04 05 30 30 00 CL Ac NZ 45 -2 -1 .0 00 IN ti ES 61 3- 9- 00 IC ve S 20 20 20 42 14 13 17 17 47 PH 5 0 82 AR MC MA G CY CA PS UL E OM 60 04 05 60 30 00 CL Ac EP 50 -2 -1 .0 00 IN ti RA 50 4- 9- 00 00 IC ve ZO 14 20 [...] CY ER 30 MG TA BL ET RI 13 04 [...] 42 ZA 60 17 17 82 PH IL 1 16 AR IN MA E CY 5 MG TA BL ET FL 50 04 05 16 30 00 CL Ac UT 38 -1 -1 .0 00 IN ti IC 30 3- 2- 00 00 IC ve 70 20 20 42 ON 01 17 17 79 PH E 6 94 AR IL MA OP CY 50 MC G SP RA Y MO 29 04 05 30 30 00 [...] 10 MA CY MG TA BL ET GA 45 04 05 90 30 00 CL Ac BA 96 -1 -1 .0 00 IN ti PE 30 9- 2- 00 00 IC ve NT 55 20 20 42 IN 55 17 17 42 PH 0 60 AR 10 MA 0 CY MG CA PS UL E PH 42 04 05 6. 2 00 CL Ac EN 19 -1 -1 00 00 IN ti AZ 20 9- 2- 0 00 IC ve OP 80 20 20 42 YR 10 17 17 86 PH ID 1 72 AR IN MA E CY 10 0 MG TA B CE 69 04 05 20 10 00 [...] MA 0 CY MG TA BL ET 64 03 [...] 42 ZA 60 17 17 59 PH IL 1 23 AR IN MA E CY [...] MA 5 CY MG TA BL ET OS 47 03 03 10 10 00 CL Ac EL 78 -0 -3 .0 00 IN ti TA 10 7- 1- 00 00 IC ve OH 47 20 20 42 01 17 17 [...] 0 CY MG CA PS UL E IL 65 03 03 20 5 00 CL Ac OM 16 -0 -3 .0 00 IN ti ET 20 8- 1- 00 00 IC ve CARTY 74 20 20 42 ZI 51 17 17 45 PH NE 0 47 AR MA 12 CY .5 MG TA BL ET CL 63 03 [...] 1 70 PH CE AR TA MA OH CY NO PH #3 93 7. 8 5- 32 5 RI 13 02 03 30 30 00 [...] CY 40 MG CA PS UL E ET 62 03 03 20 10 00 [...] 17 53 PH E 6 48 AR IL MA OP CY 50 MC G SP RA Y TI 60 03 03 20 7 00 CL Ac ZA 50 -0 -2 .0 00 IN ti NI 50 1- 4- 00 00 IC ve DI 25 20 20 42 NE 20 17 17 39 PH 2 18 AR HC MA L CY 4 MG TA BL ET CY 00 02 03 28 14 00 CL Ac CL 59 -2 -1 .0 00 IN ti OB 13 1- 7- 00 00 IC ve EN 25 20 20 42 ZA 60 17 17 30 PH IL 1 05 AR IN MA E CY 5 MG TA BL ET DI 16 02 03 30 [...] CY MG #4 TA 93 BL ET TE 51 02 03 20 3 00 [...] MG #3 TA 93 BL 8 ET IL 59 02 03 10 5 00 RI [...] 42 ZA 81 17 17 08 PH IL 0 66 AR IN MA E CY 10 MG TA BL ET BU 00 02 02 90 30 00 CL Ac SP 37 -0 -2 .0 00 IN ti IR 81 1- 4- 00 00 IC ve ON 15 20 20 42 E 00 17 17 08 PH HC 1 76 AR L MA 10 CY MG TA BL ET AC 46 [...] 17 53 PH E 9 48 AR IL MA OP CY 50 MC G SP RA Y 64 01 02 4. 28 00 CL Ac T 38 -2 -2 00 00 IN ti D2 00 5- 4- 0 00 IC ve 73 20 20 41 1. 70 17 17 47 PH 25 6 11 AR MA MG CY (5 0, 00 0 UN IT ) RA 11 01 02 10 5 00 [...] #3 CA 93 PS 8 UL E HY 00 01 02 [address] 40 -1 -[address] ti OC 60 8- 7- 00 00 SI ve OD 12 20 20 47 DE ON 40 17 17 29 -A 5 25 PH CE AR TA MA OH CY NO PH OF CY 7. NT [...] MA 75 CY MG TA BL ET LO 45 [...] 12 01 20 10 00 CL Ac IL 46 -2 -2 .0 00 IN ti [...] (5 0, 00 0 UN IT ) PO 51 12 01 25 15 00 [...] MA 10 CY MG TA BL ET IM 45 12 01 24 24 00 CL Ac IQ 80 -2 -2 .0 00 IN ti UI 20 0- 0- 00 00 IC ve MO 36 20 20 41 D 86 16 17 68 PH 5% 2 09 AR MA CR CY EA M PA CK ET NA 68 12 01 14 7 00 CL Ac IL 46 -1 -2 .0 00 IN ti [...] 17 53 PH E 9 48 AR IL MA OP CY 50 MC G SP RA Y ME 59 02 02 00 21 6 CL 18 GA Ac TH 74 -1 -2 .0 IN 75 IN ti YL 60 2- 6- 00 IC 10 EY ve IL 00 20 20 ED 10 09 09 PH OH NI 3 AR CH SO MA AE LO CY L NE S 4 MG DO SE PK CY 59 02 02 00 21 7 CL 18 GA Ac CL 74 -1 -2 .0 IN 75 IN ti OB 60 2- 6- 00 IC 11 EY ve EN 17 20 20 ZA 70 09 09 PH OH IL 6 AR CH IN MA AE E [...] CY #5 91 00 12 02 00 10 10 WA [...] 0.5 ACCT ML DOSA GE IM USE Procedures Procedure DOS Code Location Performer Comment EGD 93622 [facility] SANCHEZ TRANSORAL 7 HEALTH BIOPSY MEDICAL SINGLE/MU GROUP LTIPLE ECG 05731 [facility] ROUTINE 7 HEART ECG SPECIALIS W/LEAST TS, 12 LDS I&R ONLY ECG 26958 [facility] ROUTINE 7 PHYSICIAN ECG S, PLLC W/LEAST 12 LDS I&R ONLY ECG 32956 [facility] [facility] ECG INC INC W/LEAST 12 LDS TRCG ONLY W/O I&R COMPREHEN 00197 [facility] [facility] SIVE 7 [facility] [place] [address] [facility] [facility] TROPONIN 7 [facility] QUANTITAT INC INC SABIHA ECG 06139 [facility] ROUTINE 7 [facility] ECG [facility] W/LEAST 12 LDS TRCG ONLY W/O I&R COLPOSCOP 69258 [facility] KAM Y CERVIX 7 PHYSICIAN BX CERVIX S GROUP & [place] [address] [facility], PICKLESIM SURG 7 LLC ER JR PATHOLOGY GROSS&[place] EX[place] [address] [facility] TRACT 7 [facility] UPPER [facility] W/WO DELAYED IMAGES W/KUB UNCLASSIF J3490 [facility] [facility] IED DRUGS 7 [place] [address] [facility] [facility] HEAD/BRAI 7 [facility] N W/O INC INC CONTRAST MATERIAL LIPID 94189 [facility] PANEL 7 [place] [address] [facility] GAMMAGLOB 7 [facility] ULIN IGA INC INC IGD IGG IGM EACH COMPREHEN 70150 [facility] SIVE 7 [facility] METABOLIC INC INC PANEL GONADOTRO 63889 [facility] PIN 7 [facility] LUTEINIZI INC INC NG HORMONE BLOOD 43640 [facility] [place] COUNT 7 [facility] COMPLETE INC INC AUTO&AUTO DIFRNTL WBC GONADOTRO 75581 [facility] PIN 7 [facility] FOLLICLE INC INC STIMULATI NG HORMONE BLOOD 05360 [facility] COUNT 7 [facility] COMPLETE INC INC AUTO&AUTO DIFRNTL WBC COMPREHEN 75379 [facility] [facility] SIVE 7 [facility] METABOLIC INC INC PANEL URNLS DIP 95505 [facility] [facility] STICK/TAB INC INC LET REAGENT AUTO MICROSCOP Y UNCLASSIF J3490 [facility] [facility] IED DRUGS 7 [place] [address] [facility] [facility] INFUSION 7 [facility] THERAPY INC INC PROPHYLAX IS/[place] [address] [facility] [facility] INFUSION 7 [facility] THERAPY/P INC INC ROPHYLAXI S /DX 1ST TO 1 HR UNCLASSIF J3490 [facility] [facility] IED DRUGS 7 [facility] INC INC URNLS DIP 86768 [facility] HUMP[facility]Y 7 PHYSICIAN STICK/TAB S GROUP LET RGNT NON-AUTO W/O MICRSCP CYTP C/V 73682 [facility] TOD ESQUIVEL AUTO THIN 7 LLC LYR PREPJ SCR MNL RESCR PHYS CYTP 81457 [facility] CERVICAL/ 7 LLC VAGINAL REQ INTERP PHYSICIAN IADNA 29734 [facility] HUMAN 7 LLC [place] VIRUS HIGH-RISK TYPES ECG 97729 [facility] [facility] ROUTINE 7 [facility] ECG INC INC W/LEAST 12 LDS TRCG ONLY W/O I&R BLOOD 07970 [facility] [facility] COUNT 7 [facility] COMPLETE INC INC AUTO&AUTO DIFRNTL WBC ANTINUCLE 84922 [facility] [facility] AR 7 [facility] ANTIBODIE INC INC S SANNA COMPREHEN 96126 [facility] [facility] SIVE 7 [facility] METABOLIC INC INC PANEL PROTEIN 77996 [facility] [facility] ELECTROPH 7 [facility] ORETIC INC INC FRACTJ&QU ANTJ SERUM URNLS DIP 26207 [place] [facility] STICK/TAB INC INC LET RGNT AUTO W/O MICROSCOP Y CREATININ 15639 [facility] [facility] E BLOOD 7 [place] [address] [facility] [facility] UREA 7 [facility] NITROGEN INC INC QUANTITAT SABIHA UNCLASSIF J3490 [facility] [facility] IED DRUGS 7 [facility] INC INC CT THORAX 47703 [facility] [facility] W/[place] [address] [facility] DUFF DX/THER 7 MD RHIANNON, AGT PVRT PSC FACET JT LMBR/SAC 1 LEVEL NJX 75589 [facility] DUFF DX/THER 7 MD RHIANNON, AGT PVRT PSC FACET JT LMBR/SAC 2ND LEVEL ECG 86587 [facility] ROUTINE 7 [facility] ECG INC INC W/LEAST 12 LDS TRCG ONLY W/O I&R ECG 73804 [facility] ROUT[facility] 7 PHYSICIAN ECG S GROUP W/LEAST 12 LDS I&R [place] NJX 24202 YVETTE DUFF DX/THER 7 MD RHIANNON, AGT PVRT PSC FACET JT LMBR/SAC 3+ LEVEL APPL 18742 [facility] MODALITY 7 [facility] 1/> AREAS INC INC IONTOPHOR ESIS EA 15 MIN THERAPEUT 73097 [facility] [facility] IC PX 1/> 7 [facility] AREAS INC INC EACH 15 MIN EXERCISES APPL 62951 [facility] [facility] MODALITY 7 [facility] 1/> AREAS INC INC ELEC STIMJ UNATTENDE D UNCLASSIF J3490 [facility] [facility] IED DRUGS 7 [facility] INC INC APPL 99477 [place] [facility] MODALITY 7 [facility] 1/> AREAS INC INC ULTRASOUN D EA 15 MIN APPLICATI 66198 [place] [facility] ON 7 [facility] MODALITY INC INC 1/> AREAS HOT/COLD PACKS APPL 06561 [place] [facility] MODALITY 7 [facility] 1/> AREAS INC INC VASOPNEUM ATIC DEVICES APPL 16191 [facility] [facility] MODALITY 7 [facility] 1/> AREAS INC INC TRACTION MECHANICA L APPL 39740 [facility] [facility] MODALITY 7 [facility] 1/> AREAS INC INC TRACTION MECHANICA L APPLICATI 35185 [facility] [facility] ON 7 [facility] MODALITY INC INC 1/> AREAS HOT/COLD PACKS PHYSICAL 05830 [facility] [facility] THERAPY 7 [facility] EVALUATIO INC INC N HIGH COMPLEX 45 MINS APPL 72977 [facility] MODALITY 7 [facility] 1/> AREAS INC INC ELEC STIMJ UNATTENDE D THERAPEUT 37542 [place] [facility] IC 7 [facility] INJECTION INC INC IV PUSH EACH NEW DRUG THER 43445 [place] [facility] PROPH/DX 7 [facility] NJX IV INC INC PUSH SINGLE/1S T SBST/DRUG ECG 51019 [place] ROUTINE 7 [facility] W/LEAST P 12 LDS I&R ONLY ECG 22295 [place] [facility] ROUTINE 7 [facility] ECG INC INC W/LEAST 12 LDS TRCG ONLY W/O I&R RADEX 78838 [facility] [facility] ABDOMEN 7 [facility] COMPL INC INC W/DCBTS&/ ERC VIEWS UNCLASSIF J3490 [facility] [facility] IED DRUGS 7 [place] [address] [facility] [facility] TROPONIN 7 [facility] QUANTITAT INC INC SABIHA CREATINE 79862 [facility] [facility] KINASE MB 7 [facility] FRACTION INC INC ONLY BLOOD 05579 [facility] [facility] COUNT 7 [facility] COMPLETE INC INC AUTO&AUTO DIFRNTL WBC COMPREHEN 28198 [facility] SIVE 7 [facility] [place] [address] [facility] [facility] LIPASE 7 [place] [address] [facility] AMYLASE 7 [facility] INC INC CREATINE 04929 [facility] KINASE 7 [facility] TOTAL INC INC APPL 63244 [facility] [facility] MODALITY 7 [facility] 1/> AREAS INC INC TRACTION MECHANICA L APPLICATI 76313 [facility] ON 7 [facility] MODALITY INC INC 1/> AREAS HOT/COLD PACKS ECG 92762 [place] [facility] ROUTINE 7 [facility] ECG INC INC W/LEAST 12 LDS TRCG ONLY W/O I&R ECG 61256 [facility] ROUTINE 7 PHYSICIAN ECG S GROUP W/LEAST 12 LDS I&R ONLY APPL 35414 [place] [facility] MODALITY 7 [facility] 1/> AREAS INC INC ELEC STIMJ UNATTENDE D APPL 70661 [place] [facility] MODALITY 7 [facility] 1/> AREAS INC INC ELEC STIMJ UNATTENDE D APPLICATI 21835 [facility] [facility] ON 7 [facility] MODALITY INC INC 1/> AREAS HOT/COLD PACKS APPL 96283 [place] [facility] MODALITY 7 [facility] 1/> AREAS INC INC TRACTION MECHANICA L ECG 09995 [facility] ROUTINE 7 PHYSICIAN ECG S GROUP W/LEAST 12 LDS I&R ONLY APPLICATI 66805 [place] [facility] ON 7 [facility] MODALITY INC INC 1/> AREAS HOT/COLD PACKS APPL 70022 [place] [facility] MODALITY 7 [facility] 1/> AREAS INC INC ELEC STIMJ UNATTENDE D THERAPEUT 07805 [facility] [facility] IC PX 1/> 7 [facility] AREAS INC INC EACH 15 MIN EXERCISES XTRNL ECG 65729 [place] [facility] & 48 HR 7 [facility] RECORDING INC INC ECG 16462 [facility] PHYSICIAN ECG S, PLLC W/LEAST 12 LDS I&R ONLY ECG 82054 [facility] ECG INC INC W/LEAST 12 LDS TRCG ONLY W/O I&R AMB A0427 [facility] SERVICE 7 AMBULANCE AMBULANCE ALS SERVICE SERVICE EMERGENCY TRANSPORT LEVEL 1 GROUND A0425 [facility] MILEAGE 7 AMBULANCE AMBULANCE PER SERVICE SERVICE STATUTE MILE RADIOLOGI 03274 [place] [facility] C EXAM 7 [facility]OS[facility] CHEST 2 INC INC VIEWS FRONTAL&L ATERAL MRI 35543 [facility] SP[facility] 7 CANAL ORTHOPAED LUMBAR ICS PSC W/O CONTRAST MATERIAL CREATINE 11750 [place] [facility] KINASE 7 [facility] TOTAL INC INC COMPREHEN 80735 [facility] [facility] SIVE 7 [facility] METABOLIC INC INC PANEL BLOOD 78595 [facility] [facility] COUNT 7 [facility] COMPLETE INC INC AUTO&AUTO DIFRNTL WBC CREATINE 06490 [facility] [facility] KINASE MB 7 [facility] [place] [address] [facility] TROPONIN 7 [facility] QUANTITAT INC INC SABIHA APPL 32988 [facility] MODALITY 7 [facility] 1/> AREAS INC INC TRACTION MECHANICA L APPLICATI 79044 [facility] [facility] ON 7 [facility] MODALITY INC INC 1/> AREAS HOT/COLD PACKS APPL 58952 [place] [facility] MODALITY 7 [facility] 1/> AREAS INC INC ELEC STIMJ UNATTENDE D THERAPEUT 40008 [place] [facility] IC PX 1/> 7 [facility] AREAS INC INC EACH 15 MIN EXERCISES RADEX 39070 [facility] SPINE 7 [place] LUMBOSACR ORTHOPAED AL 2/[address] [place] [address] [facility] CERVICAL 7 MEDICAL MEDICAL SPINE W/O IMAGING IMAGING CONTRAST ASS ASS MATERIAL ECG 09757 [place] [facility] ROUTINE 7 [facility] ECG INC INC W/LEAST 12 LDS TRCG ONLY W/O I&R ECG 25274 [place] [facility] ROUTINE 7 [facility] W/LEAST P 12 LDS I&[place] [address] [place] SAQIB HEAD/BRAI 7 MEDICAL N W/[place] [address] [place] [facility] FOLIC 7 [facility] ACID INC INC SERUM COLLECTIO 05415 [place] [facility] N VENOUS 7 [facility] BLOOD INC INC VENIPUNCT URE 25 11848 [place] [facility] HYDROXY 7 [facility] INCLUDES INC INC FRACTIONS IF PERFORMED CYANOCOBA 89095 [place] [facility] LYUBOV 7 [facility] VITAMIN INC INC B-12 UNCLASSIF J3490 [facility] [facility] IED DRUGS 7 [facility] INC INC THERAPEUT 02673 [facility] [facility] IC 7 [facility] PROPHYLAC INC INC TIC/DX INJECTION SUBQ/IM UNCLASSIF J3490 [facility] [facility] IED DRUGS 7 [facility] INC INC URNLS DIP 00797 [place] [facility] 7 [facility] STICK/TAB INC INC [place] [address] [facility] A[facility] TRACT 7 [facility] W/WO DELAYED IMAGES W/KUB DESTRUCTI 86867 [facility] BENIGN 7 LESIONS UP TO 14 RADEX 41450 [place] [facility] ABDOMEN 1 7 MEDICAL [place] [address] [place] [facility] INFUSION 7 [facility] THERAPY/P INC INC ROPHYLAXI S /DX 1ST TO 1 HR BLOOD 80279 [facility] [facility] COUNT 7 [facility] COMPLETE INC INC AUTO&AUTO DIFRNTL WBC COMPREHEN 54607 [facility] [facility] SIVE 7 [facility] METABOLIC INC INC PANEL TX PROC G0238 [place] [facility] IMPRV 7 [facility] RESP INC INC FUNCT NOT G0237 FCE-FCE 15MIN RAD EXP G9500 [place] CERRATO INDICES/E 7 MEDICAL XP TM & IMAGING NUMB ASS FLUORO IMAGES DOC RADEX 83637 [place] [facility] ESOPHAGUS 7 MEDICAL IMAGING ASS INJECTION J1100 [facility] ANABAPTISM 7 [facility] DEXAMETHO [facility] SONE SODIUM PHOSPHATE 1 MG INJECTION J1170 [facility] A[facility]ISM [address] [place] [address] HYDROMORP [facility] KURTIS UP TO 4 MG INJECTION J1650 [facility] ANABAPTISM 7 [facility] ENOXAPARI [facility] N SODIUM 10 MG INJECTION J2704 [facility] PROPOFOL 7 [facility] 10 MG [facility] INJECTION J2710 [facility] ANABAPTISM 7 [facility] NEOSTIGMI [facility] NE METHYLSUL FATE UP TO 0.5 MG INJECTION J3010 [facility] ANA[facility]ISM FENTANYL 7 [facility] CITRATE [facility] 0.1 MG ANES 75327 [facility] INTRAPERI 7 [place] TONEAL ANESTHESI UPPER A ABDOMEN W/LAPS NOS INJECTION J0330 [facility] [address] [place] [address] SUCCINYLC [facility] HOLINE CHLORIDE UP TO 20 MG INJECTION J2405 [facility]ISM [address] [place] [address] ONDANSETR [facility] ON HCL PER 1 MG LAPS RPR 91384 [facility] RADHA PARAESPHG 7 [facility] L HRNA MEDICAL INCL GROUP FUNDPLSTY W/O MESH BLOOD 21375 [facility] A[facility]ISM COUNT 7 [facility] COMPLETE [facility] AUTOMATED COLLECTIO 07783 [facility] A[facility] N VENOUS 7 [facility] BLOOD [facility] VENIPUNCT URE HEMOGLOBI 88218 ANABAPTISM ANABAPTISM N 7 [facility] GLYCOSYLA [facility] LANEY A1C GLUCOSE 53920 ANABAPTISM ANABAPTISM QUANTITAT 7 [facility] SABIHA BLOOD [facility] XCPT REAGENT STRIP ECG 49366 ANABAPTISM ANNA ROUTINE 7 HEALTH ECG MEDICAL W/LEAST GROUP 12 LDS I&R ONLY ECG 17806 ANABAPTISM ANABAPTISM ROUTINE 7 [facility] ECG [facility] W/LEAST 12 LDS TRCG ONLY W/O I&R ECG 91515 [place] [facility] ROUTINE 6 [facility] ECG INC INC W/LEAST 12 LDS TRCG ONLY W/O I&R RADEX 27222 [facility] ABDOMEN 6 MEDICAL MEDICAL COMPL IMAGING IMAGING W/DCBTS&/ ASS ASS ERC VIEWS ECG 60606 [place] CHAVE[facility] JR ROUTINE 6 [facility] W/LEAST P 12 LDS I&[place] [address] [place] [facility] INFUSION 6 [facility] THERAPY/P INC INC ROPHYLAXI S /DX 1ST TO 1 HR THERAPEUT 52904 [place] [facility] IC 6 [facility] INJECTION INC INC IV PUSH EACH NEW DRUG RADIOLOGI 14510 [facility] C EXAM 6 MEDICAL MEDICAL CHEST 2 IMAGING IMAGING VIEWS ASS ASS FRONTAL&L ATERAL BLOOD 25858 [place] [facility] COUNT 6 [facility] COMPLETE INC INC AUTO&AUTO DIFRNTL WBC COMPREHEN 82539 [place] [facility] SIVE 6 [facility] [place] [address] [place] [facility] LIPASE 6 [facility] [place] [address] [place] [facility] AMYLASE 6 [facility] INC INC BLOOD 13623 [place] OCCULT 6 [facility] INTERNAL E ACTV MED QUAL FECES 1 DETER GLUC BLD 91466 [place] [facility] GLUC MNTR 6 [facility] DEV INC [place] [address] [place] [facility] HEAD/BRAI 6 MEDICAL N W/O IMAGING CONTRAST ASS MATERIAL THERAPEUT 17581 [place] [facility] IC 6 [facility] PROPHYLAC INC INC TIC/DX INJECTION SUBQ/IM RADIOLOGI 46895 [place] CERRAT[place] ALL C 6 MEDICAL EXAMINATI IMAGING ON PELVIS ASS 1/2 VIEWS URINE 83257 [place] [facility] 6 [facility] TEST INC INC VISUAL COLOR CMPRSN METHS RADEX 44438 [place] C[facility] ALL SPINE 6 MEDICAL LUMBOSACR IMAGING AL ASS MINIMUM 4 VIEWS RADEX 01769 [facility] ALL SACRUM & 6 MEDICAL COCCYX IMAGING MINIMUM 2 ASS VIEWS BLOOD 81625 [place] COUNT 6 [facility] COMPLETE INC INC AUTO&AUTO DIFRNTL WBC CUL BACT 56400 [place] [facility] XCPT 6 [facility] URINE INC INC BLOOD/STO OL AEROBIC ISOL IAADI 00690 [place] [facility] INFLUENZA 6 [facility] B VIRUS INC INC IAADI 71935 [place] [facility] INFFLUENZ 6 [facility] [place] [address] [place] [facility] STREPTOCO 6 [facility] CCUS INC INC GROUP A RADIOLOGI 79003 [place] C EXAM 6 [facility] CHEST 2 INC INC VIEWS FRONTAL&L ATERAL RADEX 15367 [place] HARLEEN SINUSES 6 MEDICAL ADRIANNA PARANASAL IMAG[facility] COMPL ASS MINIMUM 3 VIEWS DECALCIFI 78107 [facility], PICKLESIM CATION 6 [facility] [place] [address] [facility] PICK[facility]IM SURG 6 [facility] PATHOLOGY GROSS&BRYCE ROSCOPIC EXAM ANESTHESI 26186 COMMUNITY FEEBACK A NOSE & 6 ANESTH ACCESSORY OF THE SINUSES BLUE NOS ECG 31509 [place] ROUTINE 6 [facility] W/LEAST P 12 LDS I&R ONLY ECG 08964 [place] ROUTINE 6 [facility] [facility] ECG INC INC W/LEAST 12 LDS TRCG ONLY W/O I&R ANTIBODY 44842 [place] [facility] HERPES 6 [facility] SMPLX INC INC TYPE 1 ANTIBODY 19859 [place] [facility] VIRUS NOT 6 [facility] INC INC ELSEWHERE SPECIFIFE D COLLECTIO 42153 [place] [facility] N VENOUS 6 [facility] BLOOD INC INC VENIPUNCT URE BLOOD 90279 [place] COUNT 6 [facility] COMPLETE INC INC AUTO&AUTO DIFRNTL WBC COMPREHEN 68717 [place] SIVE 6 [facility] [place] [address] SEJAL HARLEEN MAXILLOFA 6 MEDICAL ADRIANNA CIAL W/[place] [address] SEJAL BEINEKE HEAD/BRAI 6 MEDICAL N W/O IMAGING CONTRAST ASS MATERIAL URINE 96095 [place] [facility] 6 [facility] TEST INC [place] [address] SEJAL BEINEKE CERVICAL 6 MEDICAL SPINE W/O IMAGING CONTRAST ASS MATERIAL COMPRE 65940 MAEGAN ISSA AUDIOMETR 6 JARON JARON Y THRESHOLD EVAL SP RECOGNIJ TYMPANOME 75326 MAEGAN ISSA TRY 6 JARON JARON DISTORT 91876 MAEGAN ISSA PRODUCT 6 JARON JARON EVOKED OTOACOUST IC EMISNS LIMITD PULMONARY 06790 [place] NO[place] STRESS 6 MEDICAL TESTING SERV SIMPLE FOUNDATIO N GAS 24968 [place] DILUT/WAS 6 MEDICAL MEDICAL HOUT LUNG SERV SERV VOL W/WO FOUNDATIO FOUNDATIO DISTRIB N N VENT&[place] [address] [place] DIFFUSING 6 MEDICAL CAPACITY SERV FOUNDATIO N ELIG CLIN G8427 STAMPING RODRIGUEZ TRI ATTSTS 6 GROUND DOC M REC FAMILY OBTD CLINI UPD/REV PT MEDS ECG 52663 [place] ROUTINE 6 [facility] W/LEAST P 12 LDS I&R ONLY BLOOD 99123 [place] OCCULT 6 [facility] PEROXIDAS INC INC E ACTV QUAL FECES 1-3 SPEC COLLECTIO 30521 [place] N VENOUS 6 [facility] BLOOD INC INC VENIPUNCT URE BLOOD 69192 [place] COUNT 6 [facility] COMPLETE INC INC AUTO&AUTO DIFRNTL WBC XTRNL ECG 98553 [place] MATUTE 6 [facility] S RHYTHM P W/I&R UP TO 48 HRS BLOOD 81440 [place] COUNT 6 [facility] COMPLETE INC INC AUTO&AUTO DIFRNTL WBC RHEUMATOI 58001 [place] FACTOR 6 [facility] QUANTITAT INC INC SABIHA ANTINUCLE 15970 [place] AR 6 [facility] ANTIBODIE INC INC S SANNA BLOOD 20564 [place] COUNT 6 [facility] RETICULOC INC INC YTE AUTOMATED SEDIMENTA 86480 [place] [facility] TION RATE 6 [facility] RBC INC INC NON-AUTOM ATED PROF SVCS 99852 [facility]ER[facility] ROSENTHAL MAR ALLG 6 [facility] IMMNTX X OF [place] W/PRV CO ALLGIC XTRCS NJXS NITRIC 35920 ALLERGY ROSENTHAL MAR OXIDE 6 [facility] [place] GAS CO DETERMINA TION ECG 32291 [place] ROUTINE 6 [facility] W/LEAST P 12 LDS I&R ONLY SPMTRY 09392 ALLERGY ROSENTHAL MAR W/VC 6 [facility]ERS EXPIRATOR OF [place] Y ABHI CO W/WO MXML VOL VNTJ AMBULANCE A0429 [facility] SERVICE 6 AMBULANCE PATY BLS SERVICE EMERGENCY TRANSPORT GROUND A0425 [facility] MILEAGE 6 AMBULANCE PATY PER SERVICE STATUTE MILE BONE 75722 [place] &/JOINT 6 [facility]OS[facility] IMAGING INC INC WHOLE BODY SEDIMENTA 99351 [place] TION RATE 6 [facility] RBC INC INC NON-AUTOM ATED BLOOD 27032 [place] COUNT 6 [facility] RETICULOC INC INC YTE AUTOMATED BLOOD 88314 [place] COUNT 6 [facility] COMPLETE INC INC AUTO&AUTO DIFRNTL WBC COLLECTIO 83007 [place] N VENOUS 6 [facility] BLOOD INC INC VENIPUNCT URE TECHNETIU A9503 [place] TC-99M 6 [facility] MEDRONATE INC INC DX UP TO 30 MCI BASIC 89472 [place] METABOLIC 6 [facility] PANEL INC INC CALCIUM TOTAL RADIOLOGI 24126 [facility] C EXAM 6 MEDICAL MEDICAL CHEST 2 IMAGING IMAGING VIEWS ASS ASS FRONTAL&L ATERAL ANES 33736 [place] BRITTNY LOWER 6 ANESTHESI INTESTINE A GROUP PS ENDOSCOPY DISTAL DUODENUM GONADOTRO 55295 [place] [facility] PIN 6 [facility] FOLLICLE INC INC STIMULATI NG HORMONE THYROID 72482 [place] HORM 6 [facility] UPTK/THYR INC [place] [address] [place] [facility] THYROXINE 6 [facility] TOTAL INC INC GONADOTRO 69768 [place] PIN 6 [facility] [place] [address] [place] [facility] THYROID 6 [facility] STIMULATI INC INC NG HORMONE TSH COLLECTIO 04806 [place] N VENOUS 6 [facility] BLOOD INC INC VENIPUNCT URE RADIOLOGI 51743 [facility] C 6 MEDICAL MEDICAL EXAMINATI IMAGING IMAGING ON CHEST ASS ASS SINGLE VIEW FRONTAL GROUND A0425 [facility] MILEAGE 6 AMBULANCE KILO PER SERVICE STATUTE MILE AMB A0427 [facility] SERVICE 6 AMBULANCE KILO ALS SERVICE EMERGENCY TRANSPORT LEVEL 1 ECG 64679 [place] ROUTINE 6 [facility] W/LEAST P 12 LDS I&R ONLY PREPJ& 77881 ALLER[facility] ROSENTHAL MAR ALLERGEN 6 [facility] IMMUNOTHE OF TRE PEREZ CO 1/DIRECTOR OF EVENTS ANTIGEN RADIOLOGI 82749 [place] [facility] C 6 [facility] EXAMINATI INC INC ON KNEE 3 [place] [address] [place] [facility] INFUSION 6 [facility] THERAPY INC INC PROPHYLAX IS/[place] [address] [place] [facility] HEAD/BRAI 6 [facility] N W/O INC INC CONTRAST MATERIAL ECG 40078 [place] ROUTINE 6 [facility] W/LEAST P 12 LDS I&R ONLY ECG 59281 [place] ROUTINE 6 [facility] ECG INC INC W/LEAST 12 LDS TRCG ONLY W/[place] [address] [place] [facility] INFUSION 6 [facility] THERAPY/P INC INC ROPHYLAXI S /DX 1ST TO 1 HR COMPREHEN 22639 [place] [facility] SIVE 6 [facility] METABOLIC INC INC PANEL CREATINE 65118 [place] [facility] KINASE 6 [facility] [place] [address] [place] [facility] TROPONIN 6 [facility] [place] [address] [place] [facility] CERVICAL 6 [facility] SPINE W/O INC INC CONTRAST MATERIAL CREATINE 27293 [place] [facility] KINASE MB 6 [facility] FRACTION INC INC ONLY BLOOD 71426 [place] [facility] COUNT 6 [facility] COMPLETE INC INC AUTO&AUTO DIFRNTL WBC SPACR A4627 [facility] KRASNOPOL BAG/RESRV 6 EQUIPMENT ANTONIO LAUREN OR W/WO INC MASK W/METRD DOSE INHAL SPMTRY 50717 ALLERGY ROSENTHAL MAR W/VC 6 [facility]ERS EXPIRATOR OF [place] Y ABHI CO W/WO MXML VOL VNTJ PERCUTANE 55441 ALLERGY ROSENTHAL MAR OUS TESTS 6 [facility] [place] W/ALLERGE CO LEO EXTRACTS INTRACUTA 84425 ALLERGY ROSENTHAL MAR NEOUS 6 PART[facility]ERS TESTS OF [place] W/ALLERGE CO LEO EXTRACTS NITRIC 37476 ALLERGY ROSENTHAL MAR OXIDE 6 [facility] [place] [address] [facility] KAM TRANSVAGI 6 PHYSICIAN MEAGAN NAL S GROUP ECG 38748 [place] CHAVEZ JR ROUTINE 6 [facility] W/LEAST P 12 LDS I&R ONLY IADNA 14069 [place] CHLAMYDIA 6 [facility] INC INC TRACHOMAT IS AMPLIFIED PROBE TQ IADNA 88491 [place] NEISSERIA 6 [facility] INC INC GONORRHOE [place] [address] [facility] [place] ANDREWS TRACT 6 RADIOLOGY RHO UPPER W/WO DELAYED IMAGES W/KUB ECG 16448 [place] ROUTINE 6 [facility] W/LEAST P 12 LDS I&R ONLY RADIOLOGI 12905 [place] SAQIB ALL C 6 MEDICAL EXAMINATI IMAGING ON CHEST ASS SINGLE VIEW FRONTAL ELECTROEN 16511 [facility] CEPHALO[facility] 6 N AM W/REC NEUROLOGY AWAKE&ASL EEP ECG 07895 [place] ROUTINE 6 [facility] W/LEAST P 12 LDS I&[place] [address] [facility] ABDOMEN & 6 MEDICAL MEDICAL PELVIS IMAGING IMAGING W/CONTRAS ASS ASS T MATERIAL ELECTROEN 13102 [facility] CEPHALOGR 6 N N AM W/REC COMMUNTIY COMMUNTIY [facility] WSY RADIOLOGI 34199 [facility] ALL C 6 MEDICAL EXAMINATI IMAGING ON CHEST ASS SINGLE VIEW FRONTAL ECG 00396 [place] CHAVEZ JR ROUTINE [address] [facility] W/LEAST P 12 LDS I&R ONLY RADEX 32798 [facility] ALL SPINE 6 MEDICAL THORACIC IMAGING 2 VIEWS ASS COMPUTER- 62553 [place] HARLEEN AIDED 6 MEDICAL ADRIANNA DETECTION IMAGING ASS SCREENING MAMMOGRAP HY SCREENING G0202 [place] HARLEEN 6 MEDICAL ADRIANNA MAMMOGRAP IMAGING HY WILBERT ASS INCL CAD WHEN PERFORMD URNLS DIP 82894 [place] [facility] 6 [facility] STICK/TAB INC INC LET REAGENT AUTO MICROSCOP Y RADEX ABD 58416 [facility] ALL COMPL 6 MEDICAL AQT ABD IMAGING W/S/E/D ASS VIEWS 1 [place] [address] [place] [facility] INFUSION 6 [facility] THERAPY/P INC INC ROPHYLAXI S /DX 1ST TO 1 HR ECG 20246 [place] ROUTINE 6 [facility] ECG INC INC W/LEAST 12 LDS TRCG ONLY W/O I&R ECG 84424 [place] CHAVEZ JR ROUTINE [address] [facility] W/LEAST P 12 LDS I&R ONLY COMPREHEN 32609 [place] SIVE 6 [facility] [place] [address] [place] LACTATE 6 [place] [address] [place] [facility] TROPONIN 6 [facility] QUANTITAT INC INC S[place] BLOOD 15170 [place] COUNT 6 [facility] COMPLETE INC INC AUTO&[place] [address] [place] INFUSION 6 [facility] THERAPY/P INC INC ROPHYLAXI S /DX 1ST TO 1 HR ECG 01796 [place] ROUTINE 6 [facility] W/LEAST P 12 LDS I&R ONLY ECG 20444 [place] ROUTINE 6 [facility] ECG INC INC W/LEAST 12 LDS TRCG ONLY W/O I&R RADIOLOGI 01202 SEJAL CERRATO ALL C EXAM 6 MEDICAL CHEST 2 IMAGING VIEWS ASS FRONTAL&L ATERAL URNLS DIP 35128 [place] [facility] 6 [facility] STICK/TAB INC INC LET REAGENT AUTO MICROSCOP Y BLOOD 09844 [place] COUNT 6 [facility] COMPLETE INC INC AUTO&AUTO DIFRNTL WBC URINE 52596 [place] [facility] [facility] TEST INC INC [place] [address] [place] [facility] TROPONIN 6 [facility] QUANTITAT INC INC [place] CREATINE 24478 [place] KINASE MB 6 [facility] FRACTION INC INC ONLY CULTURE 10418 [place] [facility] BACTERIAL 6 [facility] INC INC QUANTTATI VE COLONY COUNT URINE COMPREHEN 39503 [place] SIVE 6 [facility] METABOLIC INC INC PANEL CREATINE 72194 [place] KINASE 6 [facility] TOTAL INC INC RADEX ABD 03465 SEJAL CERRATO ALL COMPL 6 MEDICAL AQT ABD IMAGING W/S/E/D ASS VIEWS 1 VIEW CH GROUND A0425 [facility] MILEAGE 6 AMBULANCE AMBULANCE PER SERVICE SERVICE STATUTE MILE AMB A0427 [facility] SERVICE 6 AMBULANCE AMBULANCE ALS SERVICE SERVICE EMERGENCY TRANSPORT LEVEL 1 THER 94097 [facility] PROPH/DX 6 N N NJX IV COMMUNTIY COMMUNTIY PUSH HOSPITA HOSPITA SINGLE/1S T SBST/DRUG MRI BRAIN 81642 [facility] BRAIN 6 N N STEM W/O COMMUNTIY COMMUNTI[place] [address] [facility] INFUSION 6 N N HYDRATION COMMUNTIY COMMUNTIY EACH HOSPITA HOSPITA ADDITIONA L HOUR COMPREHEN 59768 [facility] SIVE 6 N N METABOLIC COMMUNTIY COMMUNTIY PANEL HOSPITA HOSPITA COLLECTIO 61975 [facility] N VENOUS 6 N N BLOOD COMMUNTIY COMMUNTIY VENIPUNCT HOSPITA HOSPITA URE BLOOD 04600 [facility] COUNT 6 N N COMPLETE COMMUNTIY COMMUNTIY AUTO&AUT[place] [address] [place] C[place] ALL HEAD/BRAI 6 MEDICAL N W/O IMAGING CONTRAST ASS MATERIAL RADIOLOGI 10753 [place] CERR[place] ALL C 6 MEDICAL EXAMINATI IMAGING [place] [address] [place] CERRTAO ALL ABDOMEN & 6 MEDICAL PELVIS IMAGING W/O ASS CONTRAST MATERIAL GROUND A0425 [facility] MILEAGE 6 AMBULANCE AMBULANCE PER SERVICE SERVICE STATUTE MILE AMB A0427 [facility] SERVICE 6 AMBULANCE AMBULANCE ALS SERVICE SERVICE EMERGENCY TRANSPORT LEVEL 1 ECG 42719 [place] ROUTINE 6 [facility] W/LEAST P 12 LDS I&R ONLY CHIROPRAC 03126 [facility] TIC 6 MANIPULAT SABIHA TX SPINAL 3-4 REGIONS MANUAL 35359 [facility] THERAPY 6 TQS 1/> REGIONS EACH 15 MINUTES THERAPEUT 93277 [facility] IC PX 1/> 6 AREAS EACH 15 MIN EXERCISES CHIROPRAC 69785 [facility] TIC 6 MANIPLTV TX EXTRASPIN AL 1/> REGION THERAPEUT 29445 [facility] IC PX 1/> 6 AREAS EACH 15 MIN EXERCISES MANUAL 45453 [facility] THERAPY 6 TQS 1/> REGIONS EACH 15 MINUTES MANUAL 54698 [facility] THERAPY 6 MATTI MATTI TQS 1/> REGIONS EACH 15 MINUTES THERAPEUT 42010 [facility] IC PX 1/> 6 MATTI MATTI AREAS EACH 15 MIN EXERCISES CHIROPRAC 33150 [facility] TIC 6 MATTI MATTI MANIPLTV TX EXTRASPIN AL 1/> REGION CHIROPRAC 95525 [facility] TIC 6 MATTI MATTI MANIPULAT SABIHA TX SPINAL 3-4 REGIONS BX SKIN 16901 SCALF LEI SCALF LEI SUBCUTANE 6 OUS&/MUCO [place] [address] SCALF LEI SCALF LEI SURG 6 PATHOLOGY GROSS&BRYCE ROSCOPIC EXAM IMHISTOCH 24244 SCALF LEI SCALF LEI EM/CYTCHM 6 1ST ANTIBODY STAIN PROCEDURE COMPREHEN 20289 [facility] SIVE 6 DIAGNOSTI DIAGNOSTI METABOLIC CS CS PANEL ECG 13646 [place] ROUTINE 6 [facility] W/LEAST P 12 LDS I&R ONLY ECG 28189 DOMINICK ANDRES ROUTINE [address] [facility] HEN ECG MEDICAL W/LEAST GROUP 12 LDS I&R ONLY INJECTION J1644 [facility] ANABAPTISM HEPARIN 6 [facility] SODIUM [facility] PER 1000 UNITS HEMOGLOBI 91181 ANABAPTISM ANABAPTISM N 6 [facility] [employer] GLYCOSYLA [facility] LANEY A1C LIPID 07157 ANABAPTISM ANABAPTISM PANEL 6 [facility] CATH PLMT 79958 ANABAPTISMBerenice ANDRES L HRT & 6 [facility] IV ARTS MEDICAL W/NJX & GROUP ANGIO IMG S&I INJECTION J3010 ANABAPTISM ANABAPTISM FENTANYL 6 [facility] CITRATE [facility] 0.1 MG GONADOTRO 19851 ANABAPTISM ANABAPTISM PIN 6 [facility] CHORIONIC [facility] QUANTITAT SABIHA COLLECTIO 58065 ANABAPTISM ANABAPTISM N VENOUS 6 [facility]ALTH [facility] BLOOD [facility] VENIPUNCT URE BLOOD 22304 [facility]NA[facility]APTISM ANABAPTISM COUNT 6 [facility] COMPLETE [facility] AUTOMATED BASIC 26424 ANABAPTISM ANABAPTISM METABOLIC 6 [facility]ALTH [facility] PANEL [facility] CALCIUM TOTAL LOCM Q9967 ANABAPTISM ANABAPTISM [phone] 6 [facility] MG/ML [facility] IODINE CONCENTRA TION PER ML CV STRS 12391 [place] [facility] TST 6 [facility]&/[facility] RX CONT P P ECG I&R ONLY UNCLASSIF J3490 [place] [facility] IED DRUGS 6 [facility]OSP INC INC CV STRS 05748 [place] [facility] TST 6 [facility]&/[facility] RX CONT P P ECG W/O I&R TECHNETIU A9500 [place] M TC-99M 6 [facility]OSP SESTAMIBI INC INC DX PER STUDY DOSE ECHO 44346 MELANIE RODRIGUEZ LEENA TTHRC R-T 6 MEDICAL 2D SERV W/WOM-MOD FOUNDATIO E COMPL N SPEC&COLR D CV STRS 17338 [place] TST 6 [facility] XERS&/OR INC INC RX CONT ECG TRCG ONLY MYOCARDIA 71400 [place] C[place]AT[place] ALL L SPECT 6 MEDICAL MULTIPLE IMAGING STUDIES ASS RADIOLOGI 47697 [place] C[place] ALL C 6 MEDICAL EXAMINATI IMAGING ON CHEST ASS SINGLE VIEW FRONTAL ECG 91502 [place] CHAVEZ JR ROUTINE [address] [facility] W/LEAST P 12 LDS I&R ONLY OPHTH 75992 [facility] MEDICAL 6 XM&EVAL COMPRHNSV ESTAB PT 1/> BLOOD 51616 [facility] COUNT 6 [facility]I [facility] COMPLETE HOLDINGS HOLDINGS AUTO&[place] [address] [facility] FOLIC 6 [facility] [place] [address] [facility] IRON 6 MAI MAI HOLDINGS HOLDINGS PREALBUMI 45074 [facility] N 6 [place] [address] [facility] ZINC 6 [place] [address] LAB [facility] THIAMINE- 6 MAI MAI VITAMIN HOLDINGS [place] B-1 [place] [address] LAB [facility] PHOSPHORU 6 MAI MAI S HOLDINGS HOLDINGS INORGANIC COMPREHEN 82580 [facility] SIVE 6 MAI MAI METABOL[place] [address] LAB [facility] VITAMIN A 6 [place] [address] LAB [facility] TOCOPHERO 6 MAI MAI L ALPHA HOLDINGS HOLDINGS VITAMIN E 25 26374 [facility] HYDROXY 6 MAI MAI INCLUDES HOLDINGS [place] [address] [facility] MAGNESIUM 6 [place] [address] LAB [facility] FERRITIN 6 MAI MAI HOLDINGS HOLDINGS ORGANIC 15925 [facility] ACID 1 6 MAI MA[place] [address] [facility] PARATHORM 6 MAI MAI ONE HOLDINGS HOLDINGS IRON 74946 [place] [facility] BINDING 6 [facility] CAPACITY INC INC COLLECTIO 86686 A[place] [facility] N VENOUS 6 [facility] [place] [address] [place] VAUGHN FERRITIN 6 [facility] TERA INC 25 67453 [place] HYDROXY 6 [facility] INCLUDES [place] [address] [place] [facility] THYROID 6 [facility] STIMULATI INC INC NG HORMONE TSH COMPREHEN 69145 [place] SIVE 6 [facility] [address] [place] [facility] IRON 6 [facility] INC INC BLOOD 74695 [place] [facility] COUNT 6 [facility] COMPLETE INC INC AUTO&AUTO DIFRNTL WBC IADNA 57581 [facility] NEISSERIA 6 [facility] AE AMPLIFIED PROBE TQ CYTP C/V 50130 [facility] AUTO THIN [facility] LYR PREPJ SCR MNL RESCR PHYS CYTP 57217 [facility] CERVICAL/ 6 [facility] VAGINAL REQ INTERP PHYSICIAN IADNA 08759 [facility] CHLAMYDIA [facility] TRACHOMAT IS AMPLIFIED PROBE TQ IADNA 85347 [facility], [facility] HUMAN [facility] PAPILLOMA [place] [address] [place] [facility] THYROID 6 [facility] STIMULATI INC INC NG HORMONE TSH BASIC 25601 [place] [facility] METABOLIC 6 [facility] PANEL INC INC CALCIUM TOTAL COLLECTIO 39537 [place] [facility] N VENOUS 6 [facility] BLOOD INC INC VENIPUNCT URE COLLECTIO 66620 [place] [facility] N VENOUS 6 [facility] BLOOD INC INC VENIPUNCT URE ORGANIC 35490 [place] [facility] ACID 1 6 [facility] [place] [address] [place] [facility] IRON 6 [facility] INC INC PREALBUMI 03617 [place] N 6 [facility] INC INC BLOOD 68502 [place] [facility] COUNT 6 [facility] COMPLETE INC INC AUTO&[place] [address] [place] [facility] THIAMINE- 6 [facility] VITAMIN INC [place] B-[address] [place] [address] [facility] [facility] FERRITIN 6 [facility] INC INC COMPREHEN 19214 [facility] [facility] SIVE 6 [facility] [place] [address] LAB [facility] FERRITIN 5 MAI MAI HOLDINGS HOLDINGS ORGANIC 92722 [facility] ACID 1 5 MAI MAI QUANTITAT [place] [address] LAB [facility] THIAMINE- 5 MAI MAI VITAMIN HOLDINGS HOLDINGS B-1 GENERAL 50657 LAB [facility] LAB MA[facility] HEALTH 5 MAI [place] [address] LAB [facility] LAB MAH[facility] IRON 5 MAI MAI HOLDINGS HOLDINGS PREALBUMI 87939 LAB [facility] N 5 [place] [address] LAB [facility] LAB [facility] FOLIC 5 MAI MAI ACID HOLDINGS HOLDINGS SERUM DESTRUCTI 34795 ATKINS ATKINS ON 5 TRA TRA PREMALIGN ANT LESION 1ST DESTRUCTI 62410 ATKINS ATKINS ON BENIGN 5 TRA TRA LESIONS [place] 14 [place] [address] SCALF LEI SCALF LEI SURG 5 PATHOLOGY GROSS&BRYCE ROSCOPIC EXAM BX SKIN 69906 ATKINS ATKINS SUBCUTANE 5 TRA TRA OUS&/MUCO US MEMBRANE 1 LESION BIOPSY 80220 ATKINS ATKINS SKIN 5 TRA TRA SUBQ&/MUC OUS MEMBRANE EA ADDL LESN COMPREHEN 34175 [facility] SIVE 5 [facility] METABOLIC [place] [address] [facility] THIAMINE- 5 [facility] VITAMIN HOLDINGS HOLDINGS B-1 ORGANIC 08615 [facility] ACID 1 5 [facility] QUANTITAT HOLDINGS HOLDINGS SABIHA BLOOD 90679 [facility] COUNT 5 [facility] COMPLETE HOLDINGS HOLDINGS AUTO&[place] [address] [facility] FOLIC 5 [facility] ACID HOLDINGS HOLDINGS SERUM PREALBUMI 30145 [facility] N 5 [place] [address] [facility] IRON 5 [facility] HOLDINGS SCREENING G0202 [facility] 5 MEDICAL CARMEN MAMMOGRAP IMAGING HY WILBERT ASS INCL CAD WHEN PERFORMD COMPUTER- 14185 [facility] AIDED 5 MEDICAL [facility]MEN DETECTION IMAGING ASS SCREENING MAMMOGRAP HY LIPID 08186 [facility] PANEL [facility] INC INC HEMOGLOBI 91269 [facility] N 5 [facility] GLYCOS[place] [address] [facility] GLUTAMYLT 5 [facility] RASE INC INC GAMMA BLOOD 28460 [facility] COUNT 5 [facility] COMPLETE INC INC AUTO&AUTO DIFRNTL WBC COLLECTIO 83530 [facility] N VENOUS 5 [facility] BLOOD INC INC VENIPUNCT URE CYANOCOBA 17231 [facility] LYUBOV 5 [facility] VITAMIN INC INC B-12 25 53055 [facility] HYDROXY 5 [facility] INCLUDES INC INC FRACTIONS IF PERFORMED COMPREHEN 01473 [facility] SIVE 5 [facility] [place] [address] [facility] THYROID 5 [facility] STIMULATI INC INC NG HORMONE TSH OPHTH 63450 [facility] MEDICAL 5 ANG ANG XM&EVAL COMPRHNSV ESTAB PT 1/> [place] [address] [facility] ABDOMEN & 5 N N [facility] COMMUNTIY COMMUNTIY W/[place] [address] [facility]BDOMEN & 5 [facility] PELVIS INC INC W/CONTRAS T MATERIAL URNLS DIP 86589 [facility] STICK/TAB INC INC LET REAGENT AUTO MICROSCOP Y URINE 44583 [facility] TEST INC INC VISUAL COLOR CMPRSN METHS BLOOD 30088 [facility] COUNT 5 [facility] COMPLETE INC INC AUTO&AUTO DIFRNTL WBC COMPREHEN 17283 [facility] SIVE 5 [facility] [place] [address] [facility] AMYLASE 5 [place] [address] [facility] LIPASE 5 [facility] INC INC CULTURE 79127 [facility] BACTERIAL 5 [facility] INC INC QUANTTATI VE COLONY COUNT URINE ORGANIC 22841 [facility] ACID 1 5 N N QUANTITAT COMMUNTIY COMMUNTI[place] [address] [facility] LIPASE 5 N N COMMUNTI[place] [address] [facility] MAGNESIUM 5 N N COMMUNTIY COMMUNTIY HOSPITA HOSPITA COMPREHEN 10182 [facility] SIVE 5 N N METABOLIC COMMUNTIY COMMUNTIY [place] [address] [facility] AMYLASE 5 N N COMMUNTIY COMMUNTIY HOSPITA HOSPITA 25 77347 [facility] HYDROXY 5 N N INCLUDES COMMUNTIY COMMUNTIY FRACTIONS [place] [address] [facility] TOCOPHERO 5 N N L ALPHA COMMUNTIY COMMUNTIY [place] [address] [facility] [facility] VITAMIN A 5 N N COMMUNTI[place] [address] [facility] THIAMINE- 5 N N VITAMIN COMMUNTIY COMMUNTIY B-[place] [address] [facility] PHOSPHORU 5 N N S COMMUNTIY COMMUNTIY [place] [address] [facility] ZINC 5 N N COMMUNTI[place] [address] [facility] FOLIC 5 N N ACID COMMUNTIY COMMUNTIY SERUM HOSPITA HOSPITA PREALBUMI 33077 [facility] N 5 N N COMMUNTIY COMMUNTIY HOSPITA HOSPITA BLOOD 47096 [facility] COUNT 5 N N COMPLETE COMMUNTIY COMMUNTIY AUTO&AUTO HOSPITA HOSPITA DIFRNTL WBC COLLECTIO 25518 [facility] N VENOUS 5 N N BLOOD COMMUNTIY COMMUNTIY [place] [address] [facility] PARATHORM 5 N N [place] [address] [facility] ABDOMINAL 5 N N REAL COMMUNTIY COMMUNTIY TIME HOSPITA HOSPITA W/[place] [address] [place] [facility] RETROPERI 5 [facility] REAL TIME W/[place] [address] [place] KADIE RETROPERI 5 MEDICAL TONEAL IMAGING REAL TIME ASS W/IMAGE LIMITED ALPHA-1-A 22096 [facility] NTITRYPSI 5 N N N TOTAL COMMUNTIY COMMUNTIY HOSPITA HOSPITA IRON 73039 [facility] BINDING 5 N N CAPACITY COMM[place] [address] [facility] GAMMAGLOB 5 N N ULIN IGA COMMUNTIY COMMUNTIY IGD IGG HOSPITA HOSPITA IGM EACH BLOOD 43804 [facility] COUNT 5 N N COMPLETE COMMUNTIY COMMUNTIY AUTOMATED HOSPITA HOSPITA HEPATITIS 71384 [facility] C 5 N N ANTIBODY COMMUNTIY COMMUNTIY HOSPITA HOSPITA COLLECTIO 92401 [facility] N VENOUS 5 N N BLOOD COMMUNTIY COMMUNTIY [place]IPUN[place] [address] [facility] IRON 5 N N COMMUNTIY COMMUNTIY HOSPITA HOSPITA HEPATITIS 69739 [facility] B CORE 5 N N ANTIBODY COMMUNTIY COMMUNTIY HBCAB HOSPITA HOSPITA TOTAL HEPATITIS 72873 [facility] B SURF 5 N N ANTIBODY COMMUNTIY COMMUNTIY HBSAB HOSPITA HOSPITA PROTHROMB 74284 [facility] IN TIME 5 N N COMM[place]TI[place] [address] [facility] HEPATITIS 5 N N B COMMUNTIY COMMUNTIY SURFACE HOSPITA HOSPITA ANTIGEN COMPREHEN 20507 [facility] SIVE 5 N N METABOLIC COMMUNTIY COMMUNTIY PANEL HOSPITA HOSPITA IMMUNOASS 03184 [facility] AY 5 N N ANALYTE COMMUNTIY COMMUNTIY QUAL/SEMI HOSPITA [place] [address] [facility] FERRITIN 5 N N COMMUNTIY COMMUNTIY HOSPITA HOSPITA ANTINUCLE 45617 [facility] AR 5 N N ANTIBODIE COMMUNTIY [place] [address] [facility] ABDOMEN & 5 MEDICAL PELVIS IMAGING W/O ASS CONTRAST MATERIAL DUP-SCAN 22634 [facility] [place] ANDREWS XTR VEINS 5 RADIOLOGY [place] [address] [facility] LIPASE 5 N N COMMUNTIY COMMUNTIY HOSPITA HOSPITA COMPREHEN 22495 [facility] SIVE 5 N N METABOLIC COMMUNTIY COMMUNTI[place] [address] [facility] AMYLASE 5 N N COMMUNTIY COMMUNTIY HOSPITA HOSPITA BLOOD 93994 [facility] COUNT 5 N N COMPLETE COMMUNTIY COMMUNTIY AUTO&AUTO HOSPITA HOSPITA DIFRNTL WBC COLLECTIO 11564 [facility] N VENOUS 5 N N BLOOD COMMUNTIY COMMUNTIY [place] [address] [facility] [place] SCALF HUBER TRACT 5 RADIOLOGY UPPER W/WO DELAYED IMAGES W/KUB LAPS 67018 BLUEGRASS SANCHEZ MICHELLE GSTRC 5 RSTRICTIV BARIATRIC PX SURGICAL LONGITUDI NAL GASTRECTO MY ANES IPR 90125 [facility] ANT UPPER 5 ANESTHESI ABDOMEN A GROUP LAPS PS GASTRIC RSTCV MO LAPAROSCO 4382 [facility] PIC 5 N N VERTICAL COMMUNTIY COMMUNTIY SLEEVE HOSPITA HOSPITA GASTRECTO MY OTHER 4513 [facility] ENDOSCOPY 5 N N OF SMALL COMMUNTIY COMMUNTIY HOSPITA HOSPITA INTESTINE APPL 88607 [place] [facility] MODALITY 5 [facility] 1/> AREAS INC INC ELEC STIMJ UNATTENDE D APPLICATI 59701 [place] [facility] ON 5 [facility] MODALITY INC INC 1/> AREAS HOT/COLD PACKS APPL 30031 [place] AVIAL MODALITY 5 [facility] 1/> AREAS INC INC ULTRASOUN D EA 15 MIN DUP-SCAN 75448 SEJAL CANSECO XTR VEINS 5 MEDICAL ADRIANNA COMPLETE IMAGING ASS BILATERAL STUDY GONADOTRO 68858 [facility] PIN 5 N N CHORIONIC COMMUNTIY COMMUNTIY HOSPITA HOSPITA QUALITATI VE COLLECTIO 13270 [facility] N VENOUS 5 N N BLOOD COMMUNTIY COMMUNTIY VENIPUNCT HOSPITA HOSPITA URE BLOOD 27351 [facility] COUNT 5 N N COMPLETE COMMUNTIY COMMUNTIY AUTOMATED HOSPITA HOSPITA COMPREHEN 69481 [facility] SIVE 5 N N METABOLIC COMMUNTIY COMMUNTIY PANEL HOSPITA HOSPITA APPL 15807 [place] [facility] MODALITY 5 [facility] 1/> AREAS INC INC ULTRASOUN D EA 15 MIN APPLICATI 42968 [place] [facility] ON 5 [facility] MODALITY INC INC 1/> AREAS HOT/COLD PACKS APPL 90936 [place] [facility] MODALITY 5 [facility] 1/> AREAS INC INC ELEC STIMJ UNATTENDE D THERAPEUT 18361 [facility] IC PX 1/> 5 [facility] AREAS INC INC EACH 15 MIN EXERCISES CUL BACT 05634 [place] [facility] XCPT 5 [facility] URINE INC INC BLOOD/STO OL AEROBIC ISOL SUSCEPTIB 30613 [place] [facility] LTY STDY 5 [facility] ANTIMICRB INC INC IAL MICRO/AGA R DILUTJ THERAPEUT 35368 [place] [facility] IC PX 1/> 5 [facility] AREAS INC INC EACH 15 MIN EXERCISES APPL 06631 [place] [facility] MODALITY 5 [facility] 1/> AREAS INC INC ELEC STIMJ UNATTENDE D APPLICATI 20087 [place] [facility] ON 5 [facility] MODALITY INC INC 1/> AREAS HOT/COLD PACKS APPL 64229 [place] [facility] MODALITY 5 [facility] 1/> AREAS INC INC ULTRASOUN D EA 15 MIN APPL 62789 [place] [facility] MODALITY 5 [facility] 1/> AREAS INC INC ULTRASOUN D EA 15 MIN APPLICATI 86756 [place] [facility] ON 5 [facility] MODALITY INC INC 1/> AREAS HOT/COLD PACKS APPL 59225 [place] [facility] MODALITY 5 [facility] 1/> AREAS INC INC ELEC STIMJ UNATTENDE D APPL 01811 [place] [facility] MODALITY 5 [facility] 1/> AREAS INC INC IONTOPHOR ESIS EA 15 MIN APPL 65996 [place] [facility] MODALITY 5 [facility] 1/> AREAS INC INC IONTOPHOR ESIS EA 15 MIN THERAPEUT 88852 [place] [facility] IC PX 1/> 5 [facility] AREAS INC INC EACH 15 MIN EXERCISES APPL 83795 [place] [facility] MODALITY 5 [facility] 1/> AREAS INC INC ELEC STIMJ UNATTENDE D APPLICATI 07531 [place] [facility] ON 5 [facility] MODALITY INC INC 1/> AREAS HOT/COLD PACKS APPL 54124 [place] [facility] MODALITY 5 [facility] 1/> AREAS INC INC ULTRASOUN D EA 15 MIN RADIOLOGI 07828 [facility] C EXAM 5 N N CHEST 2 COMMUNTIY COMMUNTIY VIEWS HOSPITA HOSPITA FRONTAL&L ATERAL LIPID 09012 [facility] PANEL 5 N N COMMUNTIY COMMUNTIY HOSPITA HOSPITA ECG 95743 [facility] ROUTINE 5 N N ECG COMMUNTIY COMMUNTIY W/LEAST HOSPITA HOSPITA 12 LDS TRCG ONLY W/O I&R BLOOD 28101 [facility] COUNT 5 N N COMPLETE COMMUNTIY COMMUNTIY AUTOMATED HOSPITA HOSPITA COLLECTIO 33867 [facility] N VENOUS 5 N N BLOOD COMMUNTIY COMMUNTIY VENIPUNCT HOSPITA HOSPITA URE THYROID 73965 [facility] HORM 5 N N UPTK/THYR COMMUNTIY COMMUNTIY OID HOSPITA HOSPITA HORMONE BINDING RATIO CUL 00242 [facility] PRSMPTV 5 N N PTHGNC COMMUNTIY COMMUNTIY ORGANISM HOSPITA HOSPITA SCRN W/[place] [address] [facility] THYROXINE 5 N N TOTAL COMMUNTIY COMMUNTIY HOSPITA HOSPITA COMPREHEN 06708 [facility] SIVE 5 N N METABOLIC COMMUNTIY COMMUNTIY [place] [address] [facility] THYROID 5 N N STIMULATI COMMUNTIY COMMUNTIY NG HOSPITA HOSPITA HORMONE TSH PHYSICAL 31123 [place] [facility] THERAPY 5 [facility] EVALUATIO INC INC N FIBRIN 20826 [place] [facility] DGRADJ 5 [facility] PRODUCTS INC INC D-DIMER QUAL/SEMI GILBERT COLLECTIO 02140 [place] [facility] N VENOUS 5 [facility] BLOOD INC INC VENIPUNCT URE BLOOD 55660 [place] [facility] COUNT 5 [facility] COMPLETE INC INC AUTO&[place] [address] [place] [facility] TROPONIN 5 [facility] QUANTITAT INC INC SABIHA COMPREHEN 70600 [place] [facility] SIVE 5 [facility] METABOLIC INC INC PANEL ECG 82891 [place] [facility] ROUTINE 5 [facility] ECG INC INC W/LEAST 12 LDS TRCG ONLY W/O I&R URNLS DIP 36698 [place] [facility] 5 [facility] STICK/TAB INC INC LET REAGENT AUTO MICROSCOP Y ECG 01701 [place] CHAVEZ JR ROUTINE 5 [facility] W/LEAST P 12 LDS I&R ONLY RADIOLOGI 61633 [place] [facility] C EXAM 5 [facility] CHEST 2 INC INC VIEWS FRONTAL&L ATERAL RADIOLOGI 94481 [place] [facility] C EXAM 5 [facility] CHEST 2 INC INC VIEWS FRONTAL&L ATERAL ECG 06817 [place] MATUTE ROUTINE 5 [facility] W/LEAST P 12 LDS I&R ONLY ECG 91225 [place] ROUTINE 5 [facility] ECG INC INC W/LEAST 12 LDS TRCG ONLY W/O I&R LOCM Q9967 [place] [facility] 300-399 5 [facility]OS[facility] MG/ML INC INC IODINE CONCENTRA TION PER ML COMPREHEN 11972 [place] [facility] SIVE 5 [facility]OS[facility] METABOLIC INC INC PANEL FIBRIN 09982 [place] [facility] DGRADJ 5 [facility] HOSP PRODUCTS INC INC D-DIMER QUAL/[place] [address] [place] [facility] TROPONIN 5 [facility]OSP QUANTITAT INC INC SABIHA BLOOD 04837 [place] [facility] COUNT 5 [facility] COMPLETE INC INC AUTO&[place] [address] [place] [facility] ANGIOGRAP 5 [facility] HY CHEST INC INC W/CONTRAS T/NONCONT RAST RADEX 41169 [place] HARLE[place] SHOULDER 4 MEDICAL COMPLETE IMAGING MINIMUM 2 ASS VIEWS REPAIR 29564 ATKINS ATKINS COMPLEX 4 TRA TRA SCALP/ARM /LEG 1.1-2.5 CM DESTRUCTI 76757 ATKINS ATKINS ON BENIGN 4 TRA TRA LESIONS UP TO 14 LEVEL III 06411 SCALF LEI SCALF LEI SURG 4 PATHOLOGY GROSS&[place] [address] [place] HAR[place]EN HEAD/BRAI 4 MEDICAL ADRIANNA N W/O IMAGING CONTRAST ASS MATERIAL THERAPEUT 20072 [place] [facility] IC 4 [facility]OSP INJECTION INC INC IV PUSH EACH NEW DRUG EGD 94986 [facility] TRANSORAL 4 N N BIOPSY [facility] SINGLE/MU HOSPITA HOSPITA LTIPLE ANES 49730 [facility] UPPER GI 4 ANESTHESI JOSE ANGEL ENDOSCOPY A GROUP [place] [address] [facility], PICKLESIM SURG 4 [facility]DA PATHOLOGY GROSS&BRYCE ROSCOPIC EXAM SPECIAL 11439 [facility], PICKLESIM STAIN 4 [facility] 1 MICROORGA NISMS I&R SPCL STN 57625 [facility], PICKLESIM 2 I&R 4 [facility] EXCPT MICROORG/ ENZYME/IM CYT SPMTRY 02688 [place] [facility] W/VC 4 [facility] EXPIRATOR INC INC Y ABHI W/WO MXML VOL VNTJ REPAIR 19812 ADVANCED SCALF LEI COMPLEX 4 DERMATOLO SCALP/ARM GY /LEG 1.1-2.5 CM EXC B9 29289 ADVANCED SCALF LEI LESION 4 DERMATOLO MRGN XCP GY SK TG S/N/H/F/G 1.1-2.0CM LEVEL III 91725 SCALF LEI SCALF LEI SURG 4 PATHOLOGY GROSS&BRYCE ROSCOPIC EXAM RADIOLOGI 39063 [facility] EXAM 4 MEDICAL ADRIANNA CHEST 2 IMAGING VIEWS ASS FRONTAL&L ATERAL REMOVAL 76785 ATKINS ATKINS SKN TAGS 4 TRA TRA DIRECTOR OF EVENTS FIBRQ TAGS ANY AREA UPW/15 CV STRS 38178 [place] MATUTE TST 4 [facility] XERS&/OR HOSPITAL RX CONT P ECG I&R ONLY CV STRS 39278 [place] [facility] TST 4 [facility] XERS&/OR INC INC RX CONT ECG TRCG ONLY ECHO 91849 [place] [facility] TTHRC R-T 4 [facility] 2D INC INC W/WOM-MOD E COMPL SPEC&COLR D RADIOLOGI 71699 [facility] C EXAM 4 MEDICAL CARMEN CHEST 2 IMAGING VIEWS ASS FRONTAL&L ATERAL ECG 47518 SCOTT CHAVEZ JR ROUTINE 4 DWI DWI ECG W/LEAST 12 LDS I&R ONLY RADIOLOGI 43150 [facility] HARLEEN C 4 ADRIANNA ADRIANNA EXAMINATI ON CHEST [place] FRONTAL ECG 41924 [place] [facility] ROUTINE 4 [facility] ECG INC INC W/LEAST 12 LDS TRCG ONLY W/O I&R BLOOD 87543 [place] [facility] COUNT 4 [facility] COMPLETE INC INC AUTO&[place] [address] [place] [facility] TROPONIN 4 [facility] QUANTITAT INC INC SABIHA BASIC 22956 [place] [facility] METABOLIC 4 [facility] [place] [address] [place] [facility] TROPONIN 4 [facility] QUANTITAT INC INC SABIHA BLOOD 81033 [place] [facility] COUNT 4 [facility] COMPLETE INC INC AUTO&AUTO DIFRNTL WBC COMPREHEN 84585 [place] [facility] SIVE 4 [facility] METABOLIC INC INC PANEL FIBRIN 96692 [place] [facility] DGRADJ 4 [facility] PRODUCTS INC INC D-DIMER QUAL/SEMI GILBERT CREATINE 24895 [place] [facility] KINASE 4 [facility] TOTAL INC INC CREATINE 98910 [place] [facility] KINASE MB 4 [facility] FRACTION INC INC ONLY ECG 13930 [place] [facility] ROUTINE 4 [facility] ECG INC INC W/LEAST 12 LDS TRCG ONLY W/O I&R ECG 14163 ANKUR SANCHEZEY ROUTINE 4 BRYCE BRYCE ECG W/LEAST 12 LDS I&R ONLY RADIOLOGI 88796 BEINEKE D BEMICHAEL D C EXAM 4 CHEST 2 VIEWS FRONTAL&L ATERAL HEMOGLOBI 47733 COMBINED COMBINED N 4 PHYSICIAN PHYSICIAN GLYCOSYLA S LA S LA LANEY A1C LIPID 73163 COMBINED COMBINED PANEL 4 PHYSICIAN PHYSICIAN S LA S LA 25 45015 COMBINED COMBINED HYDROXY 4 PHYSICIAN PHYSICIAN INCLUDES S LA S LA FRACTIONS IF PERFORMED CYANOCOBA 29444 COMBINED COMBINED LYUBOV 4 PHYSICIAN PHYSICIAN VITAMIN S LA S LA B-12 SEDIMENTA 08948 COMBINED COMBINED TION RATE 4 PHYSICIAN PHYSICIAN [place] [address] COMBINED COMBINED FREE 4 PHYSICIAN PHYSICIAN THYROXINE S LA S LA GENERAL 37895 COMBINED COMBINED HEALTH 4 PHYSICIAN PHYSICIAN PANEL S LA S LA SCREENING G0202 [place] HARLEEN 4 MEDICAL ADRIANNA MAMMOGRAP IMAGING HY WILBERT ASS INCL CAD WHEN PERFORMD COMPUTER- 04393 [place] HARLEEN AIDED 4 MEDICAL ADRIANNA DETECTION IMAGING ASS SCREENING MAMMOGRAP HY LIPID 33178 [facility] PANEL 4 DIAGNOSTI DIAGNOSTI CS CS IIV3 87089 [facility]/CO [place] VACCINE 9 HEALTH CO [facility] VIRUS 0.5 BANK ACCT ML DOSAGE IM USE RADEX 53299 MOHAN ANKUR, SPINE 9 [facility] CORPORATI COMPL ON W/BENDING VIEWS MIN 6 RADIOLOGI 38265 [place] [facility] C 9 [facility] EXAMINATI INC INC ON PELVIS 1/2 VIEWS RADEX HIP 27167 SEJAL MOISE, 9 MEDICAL MAX [place] [facility] L ASSOCIATE COMPLETE S MINIMUM 2 VIEWS RADEX 54989 [place] [facility] SPINE 9 [facility] LUMBOSACR INC INC AL MINIMUM 4 VIEWS Encounters Encounter Start End Date Code Location Performer Type Date OFFICE 84035 [place] [facility] 7 [facility] T VISIT 5 INC MINUTES [facility] [place] [facility]PAT[facility] INC T [facility] [place] [facility] OUTPATIEN INC T EMERGENCY 28836 [place] 7 7 [facility] DEPARTMEN INC T VISIT MODERATE SEVERITY EMERGENCY 94744 [facility] DEPT 7 7 PHYSICIAN VISIT S, [facility] HIGH SEVERITY& THREAT [facility] ANABAPTISM - 7 7 HEALTH OUTPATIEN EUGENE T OFFICE 82922 [place] [facility] OUTPATIEN 7 7 [facility] T VISIT INTERNAL 15 MED MINUTES [facility] ANABAPTISM - 7 7 HEALTH OUTPATIEN EUGENE T OFFICE 31636 [place] CELI OUTPATIEN 7 7 [facility] T VISIT HOSPITAL 10 P MINUTES OFFICE 93335 [facility]ES OUTPATIEN 7 7 HEALTH T VISIT MEDICAL 25 GROUP MINUTES OFFICE 57382 [place] [facility]IEN 7 7 [facility] T VISIT INC 10 MINUTES OFFICE 16182 YVETTE AVINA OUTPATIEN 7 7 MD RHIANNON, T VISIT PSC 15 MINUTES [facility] [place] [facility] OUTPATIEN INC T OFFICE 75004 [place] [facility] 7 7 [facility] T VISIT 5 INC MINUTES [facility] [place] [facility] OUTPATIEN INC T OFFICE 40042 [place] WEISS JR OUTPATIEN 7 7 [facility] T VISIT HOSPITAL 10 P MINUTES EMERGENCY 44427 [facility] PASCUAL DEPT 7 7 PHYSICIAN VISIT S, [facility] HIGH SEVERITY& THREAT [facility] [place] - 7 7 [facility] OUTPATIEN INC T EMERGENCY 53322 [place] 7 7 [facility] DEPARTMEN INC T VISIT LOW/MODER SEVERITY OFFICE 88063 [place] ALATORRE OUTPATIEN 7 7 [facility] T VISIT [facility] 10 P MINUTES [facility] [place] [facility] 7 7 [facility] OUTPATIEN INC T EMERGENCY 93082 [place] 7 7 [facility] DEPARTMEN INC T VISIT HIGH/URGE NT SEVERITY [facility] [place] [facility] OUTPATIEN INC [facility] [place] [facility] OUTPATIEN INC T PERIODIC 16629 [facility] KAM EDWARDSIV 7 7 PHYSICIAN E MED EST S GROUP PATIENT [id number] OFFICE 69752 LU[facility] MATUTE OUTPATIEN 7 7 [facility] T VISIT INTERNAL 15 MED MINUTES [facility] [place] [facility] OUTPATIEN INC T OFFICE 45237 [facility] MAEGAN OUTPATIEN 7 7 PHYSICIAN T VISIT S GROUP 15 MINUTES EMERGENCY 63074 [facility] JAQUEZ 7 7 PHYSICIAN DEPARTMEN S, [facility] T VISIT HIGH/URGE NT SEVERITY [facility] [place] [facility] OUTPATIEN INC T OFFICE 58973 [place] CELI [facility]PATIEN 7 7 [facility] 10 P MINUTES OFFICE 65409 YVETTE JURADO OUTPATIEN 7 7 MD RHIANNON, T VISIT PSC 10 MINUTES [facility] [place] [facility] OUTPATIEN INC T [facility] [place] [facility] OUTPATIEN INC [facility] [place] [facility] OUTPATIEN INC T OFFICE 60885 [facility] KIM[facility] OUTPATIEN 7 7 PHYSICIAN T VISIT S GROUP 25 MINUTES [facility] [place] [facility] OUTPATIEN INC [facility] [place] [facility] OUTPATIEN INC T OFFICE 53057 [facility] ISSA OUTPATIEN 7 7 PHYSICIAN T VISIT S GROUP 10 MINUTES OFFICE 70268 [place] [facility]IEN 7 7 [facility] T VISIT 5 INC MINUTES OFFICE 49235 YVETTE MARSHPERCY OUTPATIEN 7 7 MD RHIANNON, T NEW 30 PSC MINUTES EMERGENCY 73665 [facility] SOTOMAYOR 7 7 PHYSICIAN [facility], [facility] T VISIT HIGH/URGE NT SEVERITY [facility] [place] [facility] OUTPATIEN INC T OFFICE 09394 [facility] OUTPATIEN 7 7 PHYSICIAN T VISIT S GROUP 25 MINUTES [facility] [place] [facility] OUTPATIEN INC T OFFICE 19508 [facility] 7 7 [facility] T VISIT INTERNAL 15 MED MINUTES [facility] [place] [facility] OUTPATIEN INC T OFFICE 86212 [facility] OUT[facility] 7 7 PHYSICIAN T VISIT S GROUP 25 MINUTES OFFICE 30654 [facility] OUTPATIEN 7 7 [place] T VISIT ORTHOPAED 15 IC [facility] [place] [facility] 7 7 [facility] T EMERGENCY 30794 S[facility] ARMIJO DEPT 7 7 PHYSICIAN VISIT S, [facility] HIGH SEVERITY& THREAT FUNCJ EMERGENCY 49092 [place] 7 7 [facility] DEPARTMEN INC T VISIT HIGH/URGE NT SEVERITY OFFICE 69414 [facility] OUTPATIEN 7 7 [place] T VISIT INTERNAL 25 MED [facility] [place] [facility] T OFFICE 01814 [place] [facility] 7 7 [facility] T VISIT 5 INC MINUTES OFFICE 83390 [facility] OUTPATI[facility] 7 7 [place] T NEW 30 ORTHOPAED MINUTES [facility] [place] [facility] T EMERGENCY 12469 SMILEY JIMENEZ DEPT 7 7 PHYSICIAN U VISIT S, [facility] HIGH SEVERITY& THREAT FUNCJ EMERGENCY 64002 [place] 7 7 [facility] DEPARTMEN INC T VISIT LOW/MODER SEVERITY [facility] [place] [facility] 7 7 [facility] OUT[facility]IEN [facility] T [facility] [place] [facility] 7 7 [facility] OUTPATIEN INC T EMERGENCY 35877 [place] 7 7 [facility] DEPARTMEN INC T VISIT MODERATE SEVERITY EMERGENCY 26170 SMI[facility] PASCUAL 7 7 PHYSICIAN DEPARTMEN S, [facility] T VISIT HIGH/URGE NT SEVERITY EMERGENCY 13626 [place] 7 7 [facility] DEPART[facility] INC T VISIT LOW/MODER SEVERITY [facility] [place] [facility] OUT[facility] INC T OFFICE 76532 [place] [facility] 7 7 [facility] T VISIT 5 INC MINUTES [facility] [place] [facility] INC T OFFICE 95820 [place] 7 7 [facility] T VISIT INTERNAL 15 MED MINUTES EMERGENCY 04589 [place] 7 7 [facility] T VISIT LOW/MODER SEVERITY [facility] [place] - 7 7 [facility] T EMERGENCY 24309 [facility] [place] 7 7 [facility] EMERGENCY T VISIT PHYS MODERATE SEVERITY OFFICE 17323 [place] [facility] 7 7 [facility] T VISIT 5 INC MINUTES [facility] [place] [facility] 7 7 [facility] OUT[facility] INC T OFFICE 12881 [place] [facility] 7 7 [facility] T VISIT INTERNAL 15 MED MINUTES [facility] [place] [facility] 7 7 [facility] OUT[facility] INC T EMERGENCY 11061 [facility] MEDEROS 7 7 [facility], [facility] T VISIT MODERATE SEVERITY OFFICE 86745 [place] [facility] 7 7 [facility] T VISIT 5 INC MINUTES OFFICE 07416 [place] [facility] 7 7 [facility] T VISIT 5 INC MINUTES [facility] [place] [facility] INC T OFFICE 95863 [place] 7 7 [facility] T VISIT INTERNAL 25 MED MINUTES [facility] [place] [facility] INC T OFFICE 18238 [place] [facility] 7 7 [facility] T NEW 10 INC MINUTES OFFICE 80972 [place] [facility] 7 7 T VISIT 25 MINUTES [facility] - 7 7 [facility]ALTH OUTPATIEN EU[facility] T EMERGENCY 05314 [place] 7 7 [facility] DEPARTMEN INC T VISIT LIMITED/M INOR PROB [facility] [place] - 7 7 [facility] OUTPATIEN [facility] [place] [facility] 7 7 [facility] OUTPATIEN [facility] EMERGENCY 73557 [place] 7 7 [facility] T VISIT [facility]OW/MODER SEVERITY [facility] [place] - 7 7 [facility] OUTPATIEN [facility] EMERGENCY 87949 [place] 7 7 [facility] T VISIT LIMITED/M INOR PROB EMERGENCY 40934 SMILEY PASCUAL 7 7 PHYSICIAN [facility] S [facility] T VISIT MODERATE SEVERITY [facility] 24066 SMI[facility] SOTOMAYOR 6 6 PHYSICIAN [facility], [facility] T VISIT [facility]IGH/URGE NT SEVERITY [facility] [place] [facility] 6 6 [facility]27 [facility] 6 6 [facility] VISIT INTERNAL 15 MED MINUTES EMERGENCY 88227 [place] 6 6 [facility] T VISIT MODERATE [facility]VERITY [facility] [place] [facility] 6 6 [facility] EM[facility] 90001 S[facility] JAQUEZ 6 6 PHYSICIAN [facility]URGE NT SEVERITY EMERGENCY 77024 S[facility] ARMIJO 6 6 PHYSICIAN [facility] S [facility] T VISIT MODERATE SEVERITY EMERGENCY 65885 [place] 6 6 [facility] T VISIT LOW/MODER SEVERITY EMERGENCY 23270 SMI[facility] PASCUAL 6 6 PHYSICIAN [facility] [facility] SE[facility] [place] [facility] T OFFICE 43107 SCIFRES SCIFRES OUTPATIEN 6 6 ANG ANG T VISIT 10 MINUTES OFFICE 61545 [place] ARSLAN OUTPATIEN 6 6 [facility] OF[facility] T VISIT INTERNAL 15 MED MINUTES OFFICE 20024 WENDY MARTINEZ OUTPATIEN 6 6 T VISIT BARIATRIC 25 SURGICAL MINUTES EMERGENCY 37488 [place] 6 6 [facility] DEPARTMEN INC T VISIT LOW/MODER SEVERITY EMERGENCY 25685 SMILEY SOTOMAYOR 6 6 PHYSICIAN JR [facility]O [facility] T VISIT HIGH/URGE NT SEVERITY [facility] [place] [facility] T EMERGENCY 03375 SMILEY PASCUAL 6 6 PHYSICIAN BR[facility]CE [facility], [facility] T VISIT MODERATE SEVERITY OFFICE 40052 DANIEL [facility] FALLUJI OUTPATIEN 6 6 [facility] T VISIT MEDICAL 15 G MINUTES [facility] [place] [facility] T OFFICE 19259 [facility] HUMPHREY OUTPATIEN 6 6 PHYSICIAN MEAGAN T VISIT S GROUP 15 MINUTES [facility] [place] [facility] T OFFICE 10764 [facility] ISSA OUTPATI[facility] 6 6 PHYSICIAN JARON T VISIT S GROUP 10 MINUTES [facility] [place] [facility] [place] [facility] T EMERGENCY 95223 [place] 6 6 [facility] DEPARTMEN INC T VISIT MODERATE SEVERITY OFFICE 18646 [facility] ISS[facility]PATI[facility] 6 6 PHYSICIAN JARON T VISIT S GROUP 10 MINUTES OFFICE 19318 [place] ALATORRE OUTPATIEN 6 6 [facility] T VISIT HOSPITAL 10 P MINUTES OFFICE 20184 DOMINICK ANDRES OUTPATIEN 6 6 HEALTH IV HEN T VISIT MEDICAL 15 GROUP MINUTES OFFICE 65666 PERLA RODRIGUEZ TRI OUTPATIEN 6 6 GROUND T VISIT FAMILY 25 CLINI MINUTES OFFICE 50426 [facility]ISIT 5 HLTH DEPT HLTH DEPT MINUTES JAZZ JAZZ EMERGENCY 10668 [place] 6 6 [facility]IS[facility] LOW/MODER SEVERITY EMERGENCY 41997 SMILEY ARMIJO 6 6 PHYSICIAN SILVIO DALE T VISIT HIGH/URGE NT SEVERITY [facility] [place] [facility] 6 6 [facility] [place] [facility] 6 6 [facility] T OFFICE 89118 [facility] KIMBERLY OUTPATIEN 6 6 PHYSICIAN MAT T VISIT S GROUP 25 MINUTES OFFICE 13137 BLUENANCY SANCHEZ OUTPATIEN 6 6 T VISIT BARIATRIC 25 SURGICAL MINUTES EMERGENCY 91892 SMILEY PASCUAL 6 6 PHYSICIAN BRYCE Reddy [facility] T VISIT MODERATE SEVERITY OFFICE 62121 [facility] KIMBERLY OUTPATIEN 6 6 PHYSICIAN MAT Berenice NEW 45 S GROUP MINUTES EMERGENCY 50733 SMILEY JIMENEZ 6 6 PHYSICIAN Taylor [facility] H[facility] [place] [facility] 6 6 [facility] T OFFICE 16976 ALLERGY ROSENTHAL MAR OUTPATIEN 6 6 [facility]ERS T [facility] [place] 40 CO MINUTES EMERGENCY 57225 [place] 6 6 [facility] VISIT LOW/MODER SEVERITY EMERGENCY 57422 SMILEY PASCUAL 6 6 PHYSICIAN BRYCE Reddy [facility] T VISIT MODERATE SEVERITY [facility] [place] [facility] 6 6 [facility] T OFFICE 81663 ZHOUBharath [facility] OUTPAT[facility] 6 6 N T VISIT NEUROLOGY 10 MINUTES [facility] [place] [facility] T EMERGENCY 64025 SMILEY SOTOMAYOR, 6 6 PHYSICIAN JR MANUELITO FUENTESMEN S, PLLC T VISIT MODERATE SEVERITY [facility] [place] [facility] 6 6 [facility] T EMERGENCY 17978 SMILEY PASCUAL DEPT 6 6 PHYSICIAN BRYCE VISIT S, PLLC HIGH SEVERITY& THREAT FUNCJ OFFICE 11357 [place] [facility] 6 [facility] VISIT HOSPITAL 10 P MINUTES EMERGENCY 96209 [place] 6 6 [facility] DEPART[facility] INC T VISIT MODERATE SEVERITY [facility] [place] - 6 6 [facility] T EMERGENCY 19917 SMILEY SOTOMAYOR, 6 6 PHYSICIAN JR MANUELITO GARCIA S, PLLC T VISIT HIGH/URGE NT SEVERITY OFFICE 00912 [place] WEISS JR OUTPATIEN 6 6 [facility] T VISIT HOSPITAL 10 P MINUTES OFFICE 98052 ALLERGY ROSENTHAL MAR CONSULTAT 6 6 [facility] [place] NEW/ESTAB CO PATIENT 60 MIN EMERGENCY 40944 SMILEY PASCUAL DEPT 6 6 PHYSICIAN BRYCE VISIT S, PLLC HIGH SEVERITY& THREAT FUNCJ EMERGENCY 43289 SMILEY PASCUAL 6 6 PHYSICIAN BRYCE DEPARTMEN S, PLLC T VISIT MODERATE SEVERITY EMERGENCY 41009 SMILEY PASCUAL DEPT 6 6 PHYSICIAN BRYCE VISIT S, PLLC HIGH SEVERITY& THREAT FUNCJ OFFICE 17406 [facility] 6 6 PHYSICIAN T VISIT S GROUP 25 MINUTES EMERGENCY 11062 SMILEY HUNT 6 6 PHYSICIAN DEPARTMEN S, PLLC T VISIT LOW/MODER SEVERITY [facility] [place] [facility] 6 [facility] [place] [facility] T EMERGENCY 01187 [place] 6 6 [facility] DEPARTMEN INC T VISIT LOW/MODER SEVERITY EMERGENCY 55393 SMILEY PASCUAL 6 6 PHYSICIAN BRYCE DEPARTMEN S, PLLC T VISIT MODERATE SEVERITY [facility] - 6 6 N OUTPATIEN COMMUNTIY T HOSPITA EMERGENCY 50778 SMILEY ARMIJO DEPT 6 6 PHYSICIAN CASANDRA VISIT S, PLLC HIGH SEVERITY& THREAT FUNCJ OFFICE 27634 [facility] 6 PHYSICIAN JARON T NEW 20 S GROUP MINUTES EMERGENCY 40663 SMILEY PASCUAL 6 6 PH[facility]IC[facility] DE[facility] S, PLLC T VISIT HIGH/URGE NT SEVERITY [facility] - 6 6 N OUTPATIEN COMMUNTIY T HOSPITA EMERGENCY 57936 SMILEY PASCUAL DEPT 6 6 PHYSICIAN BRYCE VISIT S, PLLC HIGH SEVERITY& THREAT FUNCJ OFFICE 22243 [facility] T VISIT BARIATRIC 25 SURGICAL MINUTES [facility] - 6 6 [facility]ALTH OUTPATIEN [facility] EMERGENCY 45434 [facility] DUMONT [address] [facility] T VISIT MODERATE SEVERITY [facility] [place] [facility] 6 6 [facility] OUT[facility] INC T EMERGENCY 35891 [place] 6 6 [facility] INC T VISIT LOW/MODER SEVERITY EMERGENCY 73278 SMILEY BAGLEY DEPT 6 6 PHYSICIAN FOR VISIT S, PLLC HIGH SEVERITY& THREAT FUNCJ EMERGENCY 47011 SMILEY PASCUAL 6 6 PHYSICIAN [facility] DEPARTMEN S, PLLC T VISIT HIGH/URGE NT SEVERITY [facility] [place] [facility] 6 6 [facility] OUT[facility] INC T EMERGENCY 07162 [facility] 6 6 PHYSICIAN [facility]MEN [facility], [facility] H[facility]URGE NT SEVERITY EMERGENCY 22858 [facility] 6 6 ROSALEE JOSE ANGEL DEPARTMEN EMERGENCY T VISIT PHYS HIGH/URGE NT SEVERITY [facility] 6 N [facility]EN [facility] [place] [facility] T EMERGENCY 21151 [place] DEPT 6 6 [facility] VISIT INC HIGH SEVERITY& THREAT FUNCJ OFFICE 25384 [facility] CONSULTAT 6 6 N ION NEUROLOGY NEW/ESTAB PATIENT 60 MIN OFFICE 05522 [facility] OUTPATIEN 6 6 MATTI MATTI T NEW 30 MINUTES OFFICE 76374 SCALF LEI SCALF LEI OUTPATIEN 6 6 T VISIT 25 MINUTES EMERGENCY 44998 SMILEY PASCUAL DEPT 6 6 PHYSICIAN BRYCE VISIT S, PLLC HIGH SEVERITY& THREAT FUNCJ OFFICE 43671 [place] ARSLAN OUTPATIEN 6 6 [facility] T VISIT INTERNAL 15 MED [facility] - 6 6 [facility]ALTH OUTPATIEN [facility] [place] - 6 6 [facility] OUTPATIEN INC T EMERGENCY 00369 SIMLEY SANCHEZEY DEPT 6 6 PHYSICIAN BRYCE VISIT S, PLLC HIGH SEVERITY& THREAT FUNCJ OFFICE 66020 ANABAPTISM [place] OUTPATIEN 6 6 HEALTH KADIE T VISIT MEDICAL 15 GROUP MINUTES OFFICE 91653 [facility] SANCHEZ MICHELLE OUTPATIEN 6 6 T VISIT BARIATRIC 25 SURGICAL MINUTES [facility] [place] [facility] 6 6 [facility] OUT[facility] INC T OFFICE 90020 [place] ARSLAN OUTPATIEN 6 6 [facility] T VISIT INTERNAL 15 MED MINUTES INITIAL 37953 [facility] PRE[facility] 6 6 PHYSICIAN E S GROUP MEDICINE NEW PATIENT 40-64YRS [facility] [place] - 6 6 [facility] OUTPATIEN INC T OFFICE 67929 ANABAPTISM [place] OUTPATIEN 6 6 PRIMARY KADIE T VISIT CARE OF 15 ABISAI MINUTES OFFICE 04528 [place] ARSLAN OUTPATIEN 6 6 [facility] T VISIT INTERNAL 15 MED MINUTES [facility] [place] [facility] 6 6 [facility] OUTPAT[facility] INC T OFFICE 89172 WENDY SANCHEZ MICHELLE OUTPATIEN 5 5 T VISIT BARIATRIC 25 SURGICAL MINUTES OFFICE 21553 ATKINS ATKINS OUTPATIEN 5 5 TRA TRA T VISIT 25 MINUTES PERIODIC 51711 [facility] EST HLTH DEPT HLTH DEPT PATIENT JAZZ JAZZ 40-64YRS OFFICE 52666 WENDY SANCHEZ MICHELLE OUTPATIEN 5 5 T VISIT BARIATRIC 15 SURGICAL MINUTES [facility] [place] [facility] 5 5 [facility] INC T OFFICE 83017 [place] ARSLAN OUTPATIEN 5 5 [facility] OF[facility] T NEW 30 INTERNAL MINUTES MED [facility] [place] - 5 5 [facility] T OFFICE 78927 [facility] PETTEY OUTPATI[facility] 5 5 PHYSICIAN JAM T VISIT S GROUP 15 MINUTES OFFICE 65696 GASTROENT CASE JUS OUTPATIEN 5 5 EROLOGY T VISIT AND 15 HEPATOL MINUTES OFFICE 90462 ANABAPTISM [place] OUTPATIEN 5 5 HEALTH KADIE T VISIT MEDICAL 10 GROUP MINUTES [facility] N OUTPATIEN COMM[facility]TIY [facility] 49668 SMILEY HUTCHISON 5 5 PHYSICIAN [facility] SSILVIO T VISIT HIGH/URGE NT SEVERITY [facility] [place] [facility] 5 5 [facility] - 5 5 N OUTPATIEN COMMUNTIY T HOSPITA OFFICE 31364 GASTROENT CASE JUS OUTPATIEN 5 5 EROLOGY T NEW 45 AND MINUTES HEPATOL [facility] [place] - 5 5 [facility] OUTPATIEN [facility] [place] - 5 5 [facility] EMERGENCY 01393 [place] SOTOMAYOR, 5 5 [facility] T VISIT P LOW/MODER SEVERITY OFFICE 25591 DANIEL CHAND 5 5 HUBER HUBER T VISIT 15 MINUTES [facility] [place] - 5 5 [facility] OUTPATIEN [facility] EMERGENCY 28673 [place] SOTOMAYOR 5 5 [facility] T VISIT P MODERATE SEVERITY [facility] [place] - 5 5 N OUTPATIEN COMMUNTIY [facility] 5 5 N OUTPATIEN COMMUNTIY [facility] TON - 5 5 N INPATIENT COMMUNTIY [facility] [place] - 5 5 [facility] OUTPATIEN INC OFFICE 15458 [facility] SANCHEZ MICHELLE OUTPATIEN 5 5 T VISIT BARIATRIC 40 SURGICAL MINUTES OFFICE 31036 DANIEL TOLEDOPATIEN 5 5 HUBER HUBER T VISIT 15 MINUTES EMERGENCY 78908 [place] PASCUAL 5 5 [facility] T VISIT P LOW/MODER SEVERITY [facility] [place] - 5 5 [facility] T [facility] [place] [facility] 5 5 [facility] T [facility] [place] - 5 5 N OUTPATIEN COMMUNTIY T [facility] [place] - 5 5 [facility] INC T OFFICE 67612 [place] CELI OUTPATIEN [address] MINUTES P [facility] [place] - 5 5 [facility] INC T OFFICE 76991 MELANIE NOGUEIRA OUTPATIEN 5 5 MEDICAL JAM T VISIT SERV 15 FOUNDATIO MINUTES N OFFICE 88521 [place] WEISS JR OUTPATIEN [address] MINUTES P OFFICE 64919 [facility] PET[facility]ago OUTPATIEN 5 5 PHYSICIAN JAM T NEW S GROUP MINUTES OFFICE 56518 [facility] CONSULTAT 5 5 [facility] MEDICAL NEW/ESTAB G PATIENT 60 MIN OFFICE 11050 DANIEL TOLEDOPATIEN 5 5 HUBER HUBER T VISIT 15 MINUTES EMERGENCY 97822 [place] 5 5 [facility] DEPARTMEN INC T VISIT HIGH/URGE NT SEVERITY [facility] [place] - 5 5 [facility] OUTPATIEN INC T EMERGENCY 66287 [place] ESCOTO 5 5 [facility] T VISIT P MODERATE SEVERITY EMERGENCY 79135 [place] 5 5 [facility] DEPARTMEN INC T VISIT HIGH/URGE NT SEVERITY [facility] [place] - 5 5 [facility] OUTPATIEN INC T OFFICE 43723 DANIEL TOLEDOPATIEN 5 5 HUBER HUBER T VISIT 15 MINUTES OFFICE 40744 DANIEL CHAND 4 4 HUBER HUBER T VISIT 15 MINUTES EMERGENCY 32826 [place] 4 4 [facility] DEPARTMEN INC T VISIT LOW/MODER SEVERITY [facility] [place] - 4 4 [facility] OUTPATIEN INC T OFFICE 13683 DANIEL CHAND 4 4 HUBER HUBER T VISIT 15 MINUTES [facility] [place] - 4 4 [facility] OUTPATIEN INC T EMERGENCY 25338 [facility] DEPT 4 4 ROSALEE VISIT EMERGENCY HIGH PHYS SEVERITY& THREAT [facility] - 4 4 N OUTPATIEN COMMUNITY T HOSPITA OFFICE 07047 DANIEL CHAND 4 4 HUBER HUBER T VISIT 15 MINUTES OFFICE 10774 MONALISA CHAPIN CONSULTAT 4 4 KADIE ION CARDIOLOG NEW/ESTAB Y AT CENT PATIENT 40 MIN [facility] [place] - 4 4 [facility] OUTPATIEN INC T OFFICE 59010 [place] NOGUEIRA CONSULTAT 4 4 MEDICAL JAM ION SERV NEW/ESTAB FOUNDATIO PATIENT N 60 MIN [facility] [place] - 4 4 [facility] OUTPATIEN INC T OFFICE 98506 DANIEL CHAND 4 4 HUBER HUBER T VISIT 15 MINUTES OFFICE 69305 [facility] T VISIT MEDICAL 15 G MINUTES OFFICE 88327 ATKINS ATKINS CONSULTAT 4 4 TRA TRA ION NEW/ESTAB PATIENT 40 MIN [facility] [place] - 4 4 [facility] INC T OFFICE 53256 DANIEL [facility] FALLUJI OUTPATIEN 4 4 [facility] T NEW 30 MEDICAL MINUTES G EMERGENCY 62312 [facility] DEPT 4 4 ROSALEE MOH VISIT EMERGENCY HIGH PHYSI SEVERITY& THREAT FUN EMERGENCY 69396 [place] 4 4 [facility] DEPARTMEN INC T VISIT MODERATE SEVERITY [facility] [place] - 4 4 [facility] OUTPATIEN INC T EMERGENCY 37084 HORTENCIA HUGHES DEPT 4 4 VISIT HIGH SEVERITY& THREAT FUNCJ EMERGENCY 41180 ANKUR PASCUAL DEPT 4 4 BRYCE BRYCE VISIT HIGH SEVERITY& THREAT FUN OFFICE 51029 DANIEL CHAND 4 4 HUBER HUBER T VISIT 15 MINUTES EMERGENCY 78104 [place] 4 4 [facility] DEPARTMEN INC T VISIT HIGH/URGE NT SEVERITY [facility] [place] [facility] 4 4 [facility] OUTPATIEN INC T OFFICE 62295 SANCHEZ MICHELLE SANCHEZ MICHELLE CONSULTAT 4 4 ION NEW/ESTAB PATIENT 80 MIN OFFICE 55146 DANIEL CHAND 4 4 HUBER HUBER T NEW 30 MINUTES [facility] [place] - 4 4 [facility] OUTPATIEN INC T OFFICE 10694 ISSA ISSA OUTPATIEN 4 4 JARON JARON T VISIT 5 MINUTES OFFICE 49497 ISSA ISSA OUTPATIEN 4 4 JARON JARON T NEW 30 MINUTES EMERGENCY 53226 [place] 9 9 [facility] DEPARTMEN INC T VISIT LOW/MODER SEVERITY [facility] [place] [facility] 9 9 [facility] OUTPATIEN INC T EMERGENCY 41114 KIMBERLEE PASCUAL, 9 9 [facility] T VISIT ON HIGH/URGE NT SEVERITY
--- OUTSIDE RECORDS SUMMARY | 2017-06-20 20:17 | External Medical Summary Rpt ---
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 [facility] ECG [facility] W/LEAST 12 LDS TRCG ONLY W/O I&R COLPOSCOP 50741 [facility] KAM Y CERVIX 7 PHYSICIAN BX CERVIX S GROUP & [place] [address] [facility] LABS, PICKLESIM SURG 7 LLC ER JR PATHOLOGY GROSS&[place] [address] JEWISH JEWISH TRACT 7 [facility] HEALTH UPPER [facility] W/WO DELAYED IMAGES W/KUB UNCLASSIF J3490 [place] [facility] IED DRUGS 7 [place] [address] [place] [facility] HEAD/BRAI 7 [facility] N W/O INC INC CONTRAST MATERIAL LIPID 87918 [place] [facility] PANEL 7 [place] [address] [place] GAMMAGLOB 7 [facility] ULIN IGA INC INC IGD IGG IGM EACH COMPREHEN 08173 [place] SIVE 7 [facility] METABOLIC INC INC PANEL GONADOTRO 45626 [place] [facility] PIN 7 [facility] LUTEINIZI INC INC NG HORMONE BLOOD 43134 [place] COUNT 7 [facility] COMPLETE INC INC AUTO&AUTO DIFRNTL WBC GONADOTRO 38997 [place] PIN 7 [facility] FOLLICLE INC INC STIMULATI NG HORMONE BLOOD 14210 [place] [facility] COUNT 7 [facility] COMPLETE INC INC AUTO&AUTO DIFRNTL WBC COMPREHEN 16093 [place] [facility] SIVE 7 [facility] METABOLIC INC INC PANEL URNLS DIP 47047 [place] 7 [facility] STICK/TAB INC INC LET REAGENT AUTO MICROSCOP Y UNCLASSIF J3490 [place] [facility] IED DRUGS 7 [place] [address] [place] [facility] INFUSION 7 [facility] THERAPY INC INC PROPHYLAX IS/[place] [address] [place] [facility] INFUSION 7 [facility] THERAPY/P INC INC ROPHYLAXI S /DX 1ST TO 1 HR UNCLASSIF J3490 [place] [facility] IED DRUGS 7 [facility] INC INC URNLS DIP 05312 [facility] HUMPHREY 7 PHYSICIAN STICK/TAB S GROUP LET RGNT NON-AUTO W/O MICRSCP CYTP C/V 76327 P&C TOD ESQUIVEL AUTO THIN 7 LLC LYR PREPJ SCR MNL RESCR PHYS CYTP 79163 [facility] LABSTOD CERVICAL/ 7 LLC VAGINAL REQ INTERP PHYSICIAN IADNA 15379 [facility]ST[facility] HUMAN 7 LLC PAPILLOMA VIRUS HIGH-RISK TYPES ECG 52204 [place] [facility] ROUTINE 7 [facility] ECG INC INC W/LEAST 12 LDS TRCG ONLY W/O I&R BLOOD 24069 [place] [facility] COUNT 7 [facility] COMPLETE INC INC AUTO&AUTO DIFRNTL WBC ANTINUCLE 92465 [place] [facility] AR 7 [facility] ANTIBODIE INC INC S SANNA COMPREHEN 41850 [place] [facility] SIVE 7 [facility] METABOLIC INC INC PANEL PROTEIN 53458 [place] [facility] ELECTROPH 7 [facility] ORETIC INC INC FRACTJ&QU ANTJ SERUM URNLS DIP 73485 [place] [facility] 7 [facility] STICK/TAB INC INC LET RGNT AUTO W/O MICROSCOP Y CREATININ 53834 [place] [facility] E BLOOD 7 [place] [address] [place] [facility] UREA 7 [facility] NITROGEN INC INC QUANTITAT SABIHA UNCLASSIF J3490 [place] [facility] IED DRUGS 7 [facility] INC INC CT THORAX 58338 [place] [facility] 7 [facility] W/[place]X [address] YVET[facility] DUFF DX/THER 7 MD RHIANNON, AGT PVRT PSC FACET JT LMBR/SAC 1 LEVEL NJX 03394 [facility] DUFF DX/THER 7 MD RHIANNON, AGT PVRT PSC FACET JT LMBR/SAC 2ND LEVEL ECG 19221 [place] ROUTINE 7 [facility] ECG INC INC W/LEAST 12 LDS TRCG ONLY W/O I&R ECG 35956 [facility] ROUTINE 7 PHYSICIAN ECG S GROUP W/LEAST 12 LDS [place] NJX 49795 YVETTE DUFF DX/THER 7 MD RHIANNON, AGT PVRT PSC FACET JT LMBR/SAC 3+ LEVEL APPL 19872 [place] [facility] MODALITY 7 [facility] 1/> AREAS INC INC IONTOPHOR ESIS EA 15 MIN THERAPEUT 47217 [place] [facility] IC PX 1/> 7 [facility] AREAS INC INC EACH 15 MIN EXERCISES APPL 68772 [place] [facility] MODALITY 7 [facility] 1/> AREAS INC INC ELEC STIMJ UNATTENDE D UNCLASSIF J3490 [place] [facility] IED DRUGS 7 [facility] INC INC APPL 53386 [place] [facility] MODALITY 7 [facility] 1/> AREAS INC INC ULTRASOUN D EA 15 MIN APPLICATI 11561 [place] [facility] ON 7 [facility] MODALITY INC INC 1/> AREAS HOT/COLD PACKS APPL 76564 [place] [facility] MODALITY 7 [facility] 1/> AREAS INC INC VASOPNEUM ATIC DEVICES APPL 03052 [place] [facility] MODALITY 7 [facility] 1/> AREAS INC INC TRACTION MECHANICA L APPL 96517 [place] [facility] MODALITY 7 [facility] 1/> AREAS INC INC TRACTION MECHANICA L APPLICATI 24248 [place] [facility] ON 7 [facility] MODALITY INC INC 1/> AREAS HOT/COLD PACKS PHYSICAL 16426 [place] [facility] THERAPY 7 [facility] EVALUATIO INC INC N HIGH COMPLEX 45 MINS APPL 84719 [place] [facility] MODALITY 7 [facility] 1/> AREAS INC INC ELEC STIMJ UNATTENDE D THERAPEUT 53997 [place] [facility] IC 7 [facility] INJECTION INC INC IV PUSH EACH NEW DRUG THER 62783 [place] [facility] PROPH/DX 7 [facility] NJX IV INC INC PUSH SINGLE/1S T SBST/DRUG ECG 03304 [place] ROUTINE 7 [facility] W/LEAST P 12 LDS I&R ONLY ECG 84774 [place] [facility] ROUTINE 7 [facility] ECG INC INC W/LEAST 12 LDS TRCG ONLY W/O I&R RADEX 59024 [place] [facility] ABDOMEN 7 [facility] COMPL INC INC W/DCBTS&/ ERC VIEWS UNCLASSIF J3490 [place] [facility] IED DRUGS 7 [place] [address] [place] [facility] TROPONIN 7 [facility] QUANTITAT INC INC SABIHA CREATINE 62906 [place] [facility] KINASE MB 7 [facility] FRACTION INC INC ONLY BLOOD 18784 [place] [facility] COUNT 7 [facility] COMPLETE INC INC AUTO&AUTO DIFRNTL WBC COMPREHEN 07052 [place] SIVE 7 [facility] [place] [address] [place] [facility] LIPASE 7 [place] [address] [place] AMYLASE 7 [facility] INC INC CREATINE 87656 [place] [facility] KINASE 7 [facility] TOTAL INC INC APPL 13744 [place] [facility] MODALITY 7 [facility] 1/> AREAS INC INC TRACTION MECHANICA L APPLICATI 09337 [place] [facility] ON 7 [facility] MODALITY INC INC 1/> AREAS HOT/COLD PACKS ECG 08139 [place] ROUTINE 7 [facility] ECG INC INC W/LEAST 12 LDS TRCG ONLY W/O I&R ECG 53985 [facility] ROUTINE 7 PHYSICIAN ECG S GROUP W/LEAST 12 LDS I&R ONLY APPL 22307 [place] [facility] MODALITY 7 [facility] 1/> AREAS INC INC ELEC STIMJ UNATTENDE D APPL 82920 [place] [facility] MODALITY 7 [facility] 1/> AREAS INC INC ELEC STIMJ UNATTENDE D APPLICATI 89132 [place] [facility] ON 7 [facility] MODALITY INC INC 1/> AREAS HOT/COLD PACKS APPL 38899 [place] [facility] MODALITY 7 [facility] 1/> AREAS INC INC TRACTION MECHANICA L ECG 88068 [facility] KIMBERLY ROUTINE 7 PHYSICIAN ECG S GROUP W/LEAST 12 LDS I&R ONLY APPLICATI 49448 [place] [facility] ON 7 [facility] MODALITY INC INC 1/> AREAS HOT/COLD PACKS APPL 91450 [place] [facility] MODALITY 7 [facility] 1/> AREAS INC INC ELEC STIMJ UNATTENDE D THERAPEUT 88755 [place] [facility] IC PX 1/> 7 [facility] AREAS INC INC EACH 15 MIN EXERCISES XTRNL ECG 23457 [place] [facility] & 48 HR 7 [facility] RECORDING INC INC ECG 54932 [facility] ROUTINE 7 PHYSICIAN ECG S, PLLC W/LEAST 12 LDS I&R ONLY ECG 10671 [place] [facility] ROUTINE 7 [facility] ECG INC INC W/LEAST 12 LDS TRCG ONLY W/O I&R AMB A0427 [facility] SERVICE 7 AMBULANCE AMBULANCE ALS SERVICE SERVICE EMERGENCY TRANSPORT LEVEL 1 GROUND A0425 [facility] MILEAGE 7 AMBULANCE AMBULANCE PER SERVICE SERVICE STATUTE MILE RADIOLOGI 78756 [place] [facility] C EXAM [address] [facility]OSP CHEST 2 INC INC VIEWS FRONTAL&L ATERAL MRI 77327 [facility] SP[facility] 7 CANAL ORTHOPAED LUMBAR ICS PSC W/O CONTRAST MATERIAL CREATINE 14459 [place] [facility] KINASE 7 [facility] TOTAL INC INC COMPREHEN 72322 [place] SIVE 7 [facility] METABOLIC INC INC PANEL BLOOD 97612 [place] [facility] COUNT 7 [facility] COMPLETE INC INC AUTO&AUTO DIFRNTL WBC CREATINE 07814 [place] [facility] KINASE MB 7 [facility] [place] [address] [place] [facility] TROPONIN 7 [facility] QUANTITAT INC INC SABIHA APPL 54025 [place] [facility] MODALITY 7 [facility] 1/> AREAS INC INC TRACTION MECHANICA L APPLICATI 70430 [place] [facility] ON 7 [facility] MODALITY INC INC 1/> AREAS HOT/COLD PACKS APPL 48981 [place] [facility] MODALITY 7 [facility] 1/> AREAS INC INC ELEC STIMJ UNATTENDE D THERAPEUT 29800 [place] [facility] IC PX 1/> 7 [facility] AREAS INC INC EACH 15 MIN EXERCISES RADEX 79888 [facility] SPINE 7 [place] LUMBOSACR ORTHOPAED AL 2/[address] [place] [address] [facility] CERVICAL 7 MEDICAL MEDICAL SPINE W/O IMAGING IMAGING CONTRAST ASS ASS MATERIAL ECG 18636 [place] [facility] ROUTINE 7 [facility] ECG INC INC W/LEAST 12 LDS TRCG ONLY W/O I&R ECG 02453 [place] ROUTINE 7 [facility] W/LEAST P 12 LDS I&[place] [address] [place] SAQIB HEAD/BRAI 7 MEDICAL N W/[place] [address] [place] [facility] FOLIC 7 [facility] ACID INC INC SERUM COLLECTIO 21633 [place] [facility] N VENOUS 7 [facility] BLOOD INC INC VENIPUNCT URE 25 25072 [place] [facility] HYDROXY 7 [facility] INCLUDES INC INC FRACTIONS IF PERFORMED CYANOCOBA 31505 [place] [facility] LYUBOV 7 [facility] VITAMIN INC INC B-12 UNCLASSIF J3490 [place] [facility] IED DRUGS 7 [facility] INC INC THERAPEUT 20498 [place] [facility] IC 7 [facility] PROPHYLAC INC INC TIC/DX INJECTION SUBQ/IM UNCLASSIF J3490 [place] [facility] IED DRUGS 7 [facility] INC INC URNLS DIP 83419 [place] [facility] 7 [facility] STICK/TAB INC INC LET [place]AG[place] [address] JEWISH JEWISH TRACT 7 [facility] W/WO DELAYED IMAGES W/KUB DESTRUCTI 15194 [facility] JASSO ON BENIGN 7 LESIONS UP TO 14 RADEX 45886 [place] [facility] ABDOMEN 1 7 MEDICAL [place] [address] [place] [facility] INFUSION 7 [facility] THERAPY/P INC INC ROPHYLAXI S /DX 1ST TO 1 HR BLOOD 06173 [place] [facility] COUNT 7 [facility] COMPLETE INC INC AUTO&AUTO DIFRNTL WBC COMPREHEN 70959 [place] [facility] SIVE 7 [facility] METABOLIC INC INC PANEL TX PROC G0238 [place] [facility] IMPRV 7 [facility] RESP INC INC FUNCT NOT G0237 FCE-FCE 15MIN RAD EXP G9500 [place] [facility] INDICES/E 7 MEDICAL XP TM & IMAGING NUMB ASS FLUORO IMAGES DOC RADEX 14171 [place] [facility] ESOPHAGUS 7 MEDICAL IMAGING ASS INJECTION J1100 JEWISH JEWISH 7 [facility] DEXAMETHO [facility] SONE SODIUM PHOSPHATE 1 MG INJECTION J1170 JEWISH JEWISH [address] [place] [address] HYDROMORP [facility] KURTIS UP TO 4 MG INJECTION J1650 JEWISH JEWISH 7 [facility] ENOXAPARI [facility] N SODIUM 10 MG INJECTION J2704 JEWISH JEWISH PROPOFOL 7 [facility] 10 MG [facility] INJECTION J2710 JEWISH JEWISH 7 [facility] NEOSTIGMI [facility] NE METHYLSUL FATE UP TO 0.5 MG INJECTION J3010 JEWISH JEWISH FENTANYL 7 [facility] CITRATE [facility] 0.1 MG ANES 59926 [facility] INTRAPERI 7 [place] TONEAL ANESTHESI UPPER A ABDOMEN W/LAPS NOS INJECTION J0330 JEWISH JEWISH [address] [place] [address] SUCCINYLC [facility] HOLINE CHLORIDE UP TO 20 MG INJECTION J2405 JEWISH JEWISH [address] [place] [address] ONDANSETR [facility] ON HCL PER 1 MG LAPS RPR 26990 JEWISH RADHA PARAESPHG 7 [facility] L HRNA MEDICAL INCL GROUP FUNDPLSTY W/O MESH BLOOD 71283 JEWISH JEWISH COUNT 7 [facility] COMPLETE [facility] AUTOMATED COLLECTIO 60935 JEWISH JEWISH N VENOUS 7 [facility] BLOOD [facility] VENIPUNCT URE HEMOGLOBI 80364 J[facility] JEWISH N 7 [facility] GLYCOSYLA [facility] LANEY A1C GLUCOSE 82409 JEWISH JEWISH QUANTITAT 7 [facility] SABIHA BLOOD [facility] XCPT REAGENT STRIP ECG 18110 JEWISH ANNA ROUTINE 7 HEALTH ECG MEDICAL W/LEAST GROUP 12 LDS I&R ONLY ECG 33651 JEWISH JEWISH ROUTINE 7 [facility] HEALTH ECG [facility] W/LEAST 12 LDS TRCG ONLY W/O I&R ECG 24964 [place] [facility] ROUTINE 6 [facility] ECG INC INC W/LEAST 12 LDS TRCG ONLY W/O I&R RADEX 07897 [facility] ABDOMEN 6 MEDICAL MEDICAL COMPL IMAGING IMAGING W/DCBTS&/ ASS ASS ERC VIEWS ECG 08179 [place] CHAVEZ JR ROUTINE 6 [facility] W/LEAST P 12 LDS I&[place] [address] [place] [facility] INFUSION 6 [facility] THERAPY/P INC INC ROPHYLAXI S /DX 1ST TO 1 HR THERAPEUT 52960 [place] [facility] IC 6 [facility] INJECTION INC INC IV PUSH EACH NEW DRUG RADIOLOGI 45153 [facility] C EXAM 6 MEDICAL MEDICAL CHEST 2 IMAGING IMAGING VIEWS ASS ASS FRONTAL&L ATERAL BLOOD 47613 [place] [facility] COUNT 6 [facility] COMPLETE INC INC AUTO&AUTO DIFRNTL WBC COMPREHEN 81713 [place] SIVE 6 [facility] [place] [address] [place] [facility] LIPASE 6 [facility] [place] [address] [place] [facility] AMYLASE 6 [facility] INC INC BLOOD 99896 [facility] OCCULT 6 [facility] INTERNAL E ACTV MED QUAL FECES 1 DETER GLUC BLD 84998 [place] [facility] GLUC MNTR 6 [facility] DEV INC [place] [address] [place] HARLEEN HEAD/BRAI 6 MEDICAL N W/O IMAGING CONTRAST ASS MATERIAL THERAPEUT 44851 [place] [facility] IC 6 [facility] PROPHYLAC INC INC TIC/DX INJECTION SUBQ/IM RADIOLOGI 34929 [place] ALL C 6 MEDICAL EXAMINATI IMAGING ON PELVIS ASS 1/2 VIEWS URINE 54792 [place] [facility] 6 [facility] TEST INC INC VISUAL COLOR CMPRSN METHS RADEX 83120 SE[facility] CERR[facility] ALL SPINE 6 MEDICAL LUMBOSACR IMAGING AL ASS MINIMUM 4 VIEWS RADEX 76179 [facility] ALL SACRUM & 6 MEDICAL COCCYX IMAGING MINIMUM 2 ASS VIEWS BLOOD 44383 [place] [facility] COUNT 6 [facility] COMPLETE INC INC AUTO&AUTO DIFRNTL WBC CUL BACT 79887 [place] [facility] XCPT 6 [facility] URINE INC INC BLOOD/STO OL AEROBIC ISOL IAADI 87191 [place] [facility] INFLUENZA 6 [facility] B VIRUS INC INC IAADI 09154 [place] [facility] INFFLUENZ 6 [facility] [place] [place] [address] [place] [facility] STREPTOCO 6 [facility] CCUS INC INC GROUP A RADIOLOGI 76983 [place] [facility] C EXAM [address] [facility] HOSP CHEST 2 INC INC VIEWS FRONTAL&L ATERAL RADEX 19989 [place] HARLEEN SINUSES 6 MEDICAL ADRIANNA PARANASAL IMAGING COMPL ASS MINIMUM 3 VIEWS DECALCIFI 47192 P&C LABS, PICKLESIM CATION 6 [facility] [address] [facility] LABS, PICKLESIM SURG 6 [facility] PATHOLOGY GROSS&BRYCE ROSCOPIC EXAM ANESTHESI 11022 COMMUNITY FEEBACK A NOSE & 6 ANESTH ACCESSORY OF THE SINUSES BLUE NOS ECG 77502 [place] [facility] ROUTINE 6 [facility] W/LEAST P 12 LDS I&R ONLY ECG 06977 [place] ROUTINE 6 [facility] ECG INC INC W/LEAST 12 LDS TRCG ONLY W/O I&R ANTIBODY 03054 [place] [facility] HERPES 6 [facility] SMPLX INC INC TYPE 1 ANTIBODY 31384 [place] [facility] VIRUS NOT 6 [facility] INC INC ELSEWHERE SPECIFIFE D COLLECTIO 09217 [place] [facility] N VENOUS 6 [facility] BLOOD INC INC VENIPUNCT URE BLOOD 07451 [place] [facility] COUNT 6 [facility] COMPLETE INC INC AUTO&AUTO DIFRNTL WBC COMPREHEN 43102 [place] SIVE 6 [facility] [address] SEJAL HARLEEN MAXILLOFA 6 MEDICAL ADRIANNA CIAL W/[place] [address] SEJAL BEINEKE HEAD/BRAI 6 MEDICAL N W/O IMAGING CONTRAST ASS MATERIAL URINE 06703 [place] [facility] 6 [facility] TEST INC [place] [address] SEJAL BEINEKE CERVICAL 6 MEDICAL SPINE W/O IMAGING CONTRAST ASS MATERIAL COMPRE 43583 MAEGAN ISSA AUDIOMETR 6 JARON JARON Y THRESHOLD EVAL SP RECOGNIJ TYMPANOME 11551 [place] ISSA TRY 6 JARON JARON DISTORT 51488 MAEGAN ISSA PRODUCT 6 JARON JARON EVOKED OTOACOUST IC EMISNS LIMITD PULMONARY 63140 [place] NO[place] STRESS 6 MEDICAL TESTING SERV SIMPLE FOUNDATIO N GAS 17503 [place] DILUT/WAS 6 MEDICAL MEDICAL HOUT LUNG SERV SERV VOL W/WO FOUNDATIO FOUNDAT[place] DISTRI[place] N N VENT&[place] [address] [place] NO[place] DIFFUSING 6 MEDICAL CAPACITY SERV FOUNDATIO N ELIG CLIN G8427 STAMPING RODRIGUEZ TRI ATTSTS 6 GROUND DOC M REC FAMILY OBTD CLINI UPD/REV PT MEDS ECG 57462 [place] ROUTINE 6 [facility] W/LEAST P 12 LDS I&R ONLY BLOOD 26679 [place] OCCULT 6 [facility]OSP PEROXIDAS INC INC E ACTV QUAL FECES 1-3 SPEC COLLECTIO 65715 [place] N VENOUS [address] [facility] BLOOD INC INC VENIPUNCT URE BLOOD 08037 [place] COUNT 6 [facility] COMPLETE INC INC AUTO&AUTO DIFRNTL WBC XTRNL ECG 12156 [place] 6 [facility] S RHYTHM P W/I&R UP TO 48 HRS BLOOD 44072 [place] COUNT 6 [facility] COMPLETE INC INC AUTO&AUTO DIFRNTL WBC RHEUMATOI 46009 [place] FACTOR 6 [facility] QUANTITAT INC INC SABIHA ANTINUCLE 64187 [place] AR 6 [facility] ANTIBODIE INC INC S SANNA BLOOD 86856 [place] COUNT 6 [facility] RETICULOC INC INC YTE AUTOMATED SEDIMENTA 21363 [place] TION RATE 6 [facility] RBC INC INC NON-AUTOM ATED PROF SVCS 20044 ALLER[place] ROSENT[place] MAR ALLG 6 [facility] IMMNTX X OF [place] W/PRV CO ALLGIC XTRCS NJXS NITRIC 36738 ALLERGY ROSENTHAL MAR OXIDE 6 [facility] [place] GAS CO DETERMINA TION ECG 72564 [place] ROUTINE 6 [facility] W/LEAST P 12 LDS I&R ONLY SPMTRY 14144 ALLERGY ROSENTHAL MAR W/VC 6 PART[facility]ERS EXPIRATOR OF [place] Y ABHI CO W/WO MXML VOL VNTJ AMBULANCE A0429 [facility] SERVICE 6 AMBULANCE PATY BLS SERVICE EMERGENCY TRANSPORT GROUND A0425 [facility] MILEAGE 6 AMBULANCE PATY PER SERVICE STATUTE MILE BONE 71615 [place] &/JOINT [address] [facility] IMAGING INC INC WHOLE BODY SEDIMENTA 75179 [place] TION RATE 6 [facility] RBC INC INC NON-AUTOM ATED BLOOD 63101 [place] COUNT 6 [facility] RETICULOC INC INC YTE AUTOMATED BLOOD 60044 [place] COUNT 6 [facility] COMPLETE INC INC AUTO&AUTO DIFRNTL WBC COLLECTIO 71701 [place] N VENOUS [address] [facility] BLOOD INC INC VENIPUNCT URE TECHNETIU A9503 [place] TC-99M 6 [facility] MEDRONATE INC INC DX UP TO 30 MCI BASIC 06608 [place] METABOLIC 6 [facility] PANEL INC INC CALCIUM TOTAL RADIOLOGI 80812 [facility] C EXAM 6 MEDICAL MEDICAL CHEST 2 IMAGING IMAGING VIEWS ASS ASS FRONTAL&L ATERAL ANES 77312 [place] 6 ANESTHESI INTESTINE A GROUP PS ENDOSCOPY DISTAL DUODENUM GONADOTRO 65024 [place] PIN 6 [facility] FOLLICLE INC INC STIMULATI NG HORMONE THYROID 14932 [place] HORM 6 [facility] UPTK/THYR INC [place] [address] [place] THYROXINE 6 [facility] TOTAL INC INC GONADOTRO 10563 [place] PIN 6 [facility] [place] [address] [place] THYROID 6 [facility] STIMULATI INC INC NG HORMONE TSH COLLECTIO 91214 [place] VENOUS 6 [facility] BLOOD INC INC VENIPUNCT URE RADIOLOGI 58338 [facility] C 6 MEDICAL MEDICAL EXAMINATI IMAGING IMAGING ON CHEST ASS ASS SINGLE VIEW FRONTAL GROUND A0425 [facility] MILEAGE 6 AMBULANCE KILO PER SERVICE STATUTE MILE AMB A0427 [facility] SERVICE 6 AMBULANCE KILO ALS SERVICE EMERGENCY TRANSPORT LEVEL 1 ECG 80255 [place] ROUTINE 6 [facility] W/LEAST P 12 LDS I&R ONLY PREPJ& 90734 ALLERGY ROSENTHAL MAR ALLERGEN 6 PARTNERS IMMUNOTHE OF TRE PEREZ CO 1/TRUCK 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 ANTIGEN RADIOLOGI 78428 [facility] C [facility] EXAMINATI INC INC ON KNEE 3 [place] [address] [facility] INFUSION 6 [facility] THERAPY INC [place] [address] [facility] HEAD/BRAI 6 [facility] N W/O INC INC CONTRAST MATERIAL ECG 74620 [place] [facility] ROUTINE 6 [facility] W/LEAST P 12 LDS I&R ONLY ECG 30770 [facility] [facility] ROUTINE 6 [facility] ECG INC INC W/LEAST 12 LDS TRCG ONLY W/O I&[place] [address] [facility] INFUSION 6 [facility] THERAPY/P INC INC ROPHYLAXI S /DX 1ST TO 1 HR COMPREHEN 43154 [facility] SIVE 6 [facility] METABOLIC INC INC PANEL CREATINE 12203 [facility] KINASE 6 [facility] [place] [address] [facility] TROPONIN 6 [facility] [place] [address] [facility] CERVICAL 6 [facility] SPINE W/O INC INC CONTRAST MATERIAL CREATINE 15412 [facility] KINASE MB 6 [facility] FRACTION INC INC ONLY BLOOD 27713 [facility] COUNT 6 [facility] COMPLETE INC INC AUTO&AUTO DIFRNTL WBC SPACR A4627 [facility] KRASNOPOL BAG/RESRV 6 EQUIPMENT ANTONIO LAUREN OR W/WO INC MASK W/METRD DOSE INHAL SPMTRY 25128 ALLERGY ROSENTHAL MAR W/VC 6 PART[facility]ERS EXPIRATOR OF [place] Y ABHI CO W/WO MXML VOL VNTJ PERCUTANE 75751 ALLERGY ROSENTHAL MAR OUS TESTS 6 [facility] [place] W/ALLERGE CO LEO EXTRACTS INTRACUTA 75611 ALLERGY ROSENTHAL MAR NEOUS 6 PARTNERS TESTS OF [place] W/ALLERGE CO LEO EXTRACTS NITRIC 25002 ALLERGY ROSENTHAL MAR OXIDE 6 [facility] [place] [address] [facility] KAM TRANSVAGI 6 PHYSICIAN MEAGAN NAL S GROUP ECG 33281 [place] CHAVEZ JR ROUTINE 6 [facility] W/LEAST P 12 LDS I&R ONLY IADNA 81779 [facility] CHLAMYDIA 6 [facility] INC INC TRACHOMAT IS AMPLIFIED PROBE TQ IADNA 38424 [facility] [facility] NEISSERIA 6 [facility] INC INC GONORRHOE [place] [address] [facility] [place] ANDREWS TRACT 6 RADIOLOGY RHO UPPER W/WO DELAYED IMAGES W/KUB ECG 00975 [place] [facility] ROUTINE 6 [facility] W/LEAST P 12 LDS I&R ONLY RADIOLOGI 78229 [place] SAQIB ALL C 6 MEDICAL EXAMINATI IMAGING ON CHEST ASS SINGLE VIEW FRONTAL ELECTROEN 68462 [facility] CE[facility] 6 N AM W/REC NEUROLOGY AWAKE&ASL EEP ECG 25728 [place] [facility] ROUTINE 6 [facility] W/LEAST P 12 LDS I&[place] [address] [facility] ABDOMEN & 6 MEDICAL MEDICAL PELVIS IMAGING IMAGING W/CONTRAS ASS ASS T MATERIAL ELECTROEN 35314 [facility] CEPHALOGR 6 N N AM W/REC COMMUNTIY COMMUNTIY [facility] WSY RADIOLOGI 66883 [facility] ALL C 6 MEDICAL EXAMINATI IMAGING ON CHEST ASS SINGLE VIEW FRONTAL ECG 98841 [place] CH[facility] JR ROUTINE 6 [facility] W/LEAST P 12 LDS I&R ONLY RADEX 04882 [facility] ALL SPINE 6 MEDICAL THORACIC IMAGING 2 VIEWS ASS COMPUTER- 03552 [place] HARLEEN AIDED 6 MEDICAL ADRIANNA DETECTION IMAGING ASS SCREENING MAMMOGRAP HY SCREENING G0202 [place] HARLEEN 6 MEDICAL ADRIANNA MAMMOGRAP IMAGING HY WILBERT ASS INCL CAD WHEN PERFORMD URNLS DIP 66772 [facility] [facility] STICK/TAB INC INC LET REAGENT AUTO MICROSCOP Y RADEX ABD 71796 [facility] ALL COMPL 6 MEDICAL AQT ABD IMAGING W/S/E/D ASS VIEWS 1 [place] [address] [facility] [facility] INFUSION 6 [facility] THERAPY/P INC INC ROPHYLAXI S /DX 1ST TO 1 HR ECG 56876 [facility] ROUTINE 6 [facility] ECG INC INC W/LEAST 12 LDS TRCG ONLY W/O I&R ECG 55351 [place] CHAVE[facility] JR ROUTINE 6 [facility] W/LEAST P 12 LDS I&R ONLY COMPREHEN 44210 [facility] [facility] SIVE 6 [facility] [place] [address] [facility] LACTATE 6 [place] [address] [facility] TROPONIN 6 [facility] QUANTITAT INC INC [place] BLOOD 95796 [facility] COUNT 6 [facility] COMPLETE INC INC AUTO&[place] [address] [place] [facility] INFUSION 6 [facility] THERAPY/P INC INC ROPHYLAXI S /DX 1ST TO 1 HR ECG 46845 [place] ROUTINE 6 [facility] W/LEAST P 12 LDS I&R ONLY ECG 03738 [facility] [facility] ROUTINE 6 [facility] ECG INC INC W/LEAST 12 LDS TRCG ONLY W/O I&R RADIOLOGI 82853 SEJAL CERRATO ALL C EXAM 6 MEDICAL CHEST 2 IMAGING VIEWS ASS FRONTAL&L ATERAL URNLS DIP 70849 [facility] [facility] STICK/TAB INC INC LET REAGENT AUTO MICROSCOP Y BLOOD 72833 [facility] COUNT 6 [facility] COMPLETE INC INC AUTO&AUTO DIFRNTL WBC URINE 94938 [facility] TEST INC INC [place] [address] [facility] TROPONIN 6 [facility] QUANTITAT INC INC [place] CREATINE 73599 [facility] KINASE MB 6 [facility] FRACTION INC INC ONLY CULTURE 58546 [facility] BACTERIAL 6 [facility] INC INC QUANTTATI VE COLONY COUNT URINE COMPREHEN 22472 [facility] SIVE 6 [facility] METABOLIC INC INC PANEL CREATINE 01281 [facility] [facility] KINASE 6 [facility] TOTAL INC INC RADEX ABD 57984 SEJAL CERRATO ALL COMPL 6 MEDICAL AQT ABD IMAGING W/S/E/D ASS VIEWS 1 VIEW CH GROUND A0425 [facility] MILEAGE 6 AMBULANCE AMBULANCE PER SERVICE SERVICE STATUTE MILE AMB A0427 [facility] SERVICE 6 AMBULANCE AMBULANCE ALS SERVICE SERVICE EMERGENCY TRANSPORT LEVEL 1 THER 00021 [facility] PROPH/DX 6 N N NJX IV COMMUNTIY COMMUNTIY PUSH HOSPITA HOSPITA SINGLE/1S T SBST/DRUG MRI BRAIN 18500 [facility] BRAIN 6 N N STEM W/O COMMUNTIY COMMUNTIY [place] [address] [facility] INFUSION 6 N N HYDRATION COMMUNTIY COMMUNTIY EACH HOSPITA HOSPITA ADDITIONA L HOUR COMPREHEN 48359 [facility] SIVE 6 N N METABOLIC COMMUNTIY COMMUNTIY PANEL HOSPITA HOSPITA COLLECTIO 72023 [facility] N VENOUS 6 N N BLOOD COMMUNTIY COMMUNTIY VENIPUNCT HOSPITA HOSPITA URE BLOOD 29018 [facility] COUNT 6 N N COMPLETE COMMUNTIY COMMUNTIY AUTO&AUT[place] [address] [place] C[place] ALL HEAD/BRAI 6 MEDICAL N W/O IMAGING CONTRAST ASS MATERIAL RADIOLOGI 22810 [place] CERR[place] ALL C 6 MEDICAL EXAMINATI IMAGING [place] [address] [place] C[place] ALL ABDOMEN & 6 MEDICAL PELVIS IMAGING W/O ASS CONTRAST MATERIAL GROUND A0425 [facility] MILEAGE 6 AMBULANCE AMBULANCE PER SERVICE SERVICE STATUTE MILE AMB A0427 [facility] SERVICE 6 AMBULANCE AMBULANCE ALS SERVICE SERVICE EMERGENCY TRANSPORT LEVEL 1 ECG 35331 [place] [facility] ROUTINE 6 [facility] W/LEAST P 12 LDS I&R ONLY CHIROPRAC 00126 [facility] TIC 6 MANIPULAT [place] SPINAL 3-4 [facility] MANUAL 28735 [facility] THERAPY 6 TQS 1/> [facility] EACH 15 MINUTES THERAPEUT 30421 [facility] IC PX 1/> 6 AREAS EACH 15 MIN EXERCISES CHIROPRAC 38133 [facility] TIC 6 MANIPLTV TX EXTRASPIN AL 1/> REGION THERAPEUT 87971 [facility] IC PX 1/> 6 AREAS EACH 15 MIN EXERCISES MANUAL 21276 [facility] THERAPY 6 TQS 1/> REGIONS EACH 15 MINUTES MANUAL 13737 [facility] THERAPY 6 MATTI MATTI TQS 1/> REGIONS EACH 15 MINUTES THERAPEUT 32649 [facility] LUKING IC PX 1/> 6 MATTI MATTI AREAS EACH 15 MIN EXERCISES CHIROPRAC 55996 [facility] TIC 6 MATTI MATTI MANIPLTV TX EXTRASPIN AL 1/> REGION CHIROPRAC 71234 [facility] TIC 6 MATTI MATTI MANIPULAT [place] TX SPINAL 3-4 REGIONS BX SKIN 01096 SCALF LEI SCALF LEI SUBCUTANE 6 OUS&/MUCO [place] [address] SCALF LEI SCALF LEI SURG 6 PATHOLOGY GROSS&BRYCE ROSCOPIC EXAM IMHISTOCH 30168 SCALF LEI SCALF LEI EM/CYTCHM 6 1ST ANTIBODY STAIN PROCEDURE COMPREHEN 12080 [facility] SIVE 6 DIAGNOSTI DIAGNOSTI METABOLIC CS CS PANEL ECG 64781 AUTSIN MATUTE ROUTINE 6 [facility] W/LEAST P 12 LDS I&R ONLY ECG 15505 DOMINICK ANDRES ROUTINE 6 [facility] HEN ECG MEDICAL W/LEAST GROUP 12 LDS I&R ONLY INJECTION J1644 JEWISH JEWISH HEPARIN 6 [facility] SODIUM [facility] PER 1000 UNITS HEMOGLOBI 18452 JEWISH JEWISH N 6 [facility] Zuznow GLYCOSYLA [facility] LANEY A1C LIPID 13168 JEWISH JEWISH PANEL 6 [facility] HEALTH [facility] CATH PLMT 24751 JEWISHBerenice ANDRES L HRT & 6 [facility] IV ARTS MEDICAL W/NJX & GROUP ANGIO IMG S&I INJECTION J3010 JEWISH JEWISH FENTANYL 6 [facility] CITRATE [facility] 0.1 MG GONADOTRO 62055 JEWISH JEWISH PIN 6 [facility] CHORIONIC [facility] QUANTITAT [place] COLLECTIO 81855 JEWISH JEWISH N VENOUS 6 HEALTH HEALTH BLOOD [facility] VENIPUNCT URE BLOOD 54730 JEWISH JEWISH COUNT 6 HEALTH HEALTH COMPLETE [facility] AUTOMATED BASIC 41889 JEWISH JEWISH METABOLIC 6 HEALTH HEALTH PANEL [facility] CALCIUM TOTAL LOCM Q9967 JEWISH JEWISH [phone] [facility] HEALTH MG/ML [facility] IODINE CONCENTRA TION PER ML CV STRS 77101 [facility] [facility] TST 6 [facility]&/OR [facility] RX CONT P P ECG I&R ONLY UNCLASSIF J3490 [facility] [facility] IED DRUGS [address] [facility] HOSP INC INC CV STRS 48701 [place] [facility] TST 6 [facility] RX CONT P P ECG W/O I&R TECHNETIU A9500 [facility] [facility] M TC-99M 6 [facility] HOSP SESTAMIBI INC INC DX PER STUDY DOSE ECHO 29707 MELANIE RODRIGUEZ LEENA TTHRC R-T 6 MEDICAL 2D SERV W/WOM-MOD FOUNDATIO E COMPL N SPEC&COLR D CV STRS 86844 [place] [facility] TST [address] [facility] HOSP XERS&/OR INC INC RX CONT ECG TRCG ONLY MYOCARDIA 06589 [place] CERRAT[place] ALL L SPECT 6 MEDICAL MULTIPLE IMAGING STUDIES ASS RADIOLOGI 91630 [place] C[place] ALL C 6 MEDICAL EXAMINATI IMAGING ON CHEST ASS SINGLE VIEW FRONTAL ECG 29838 [place] CHAVEZ JR ROUTINE 6 [facility] W/LEAST P 12 LDS I&R ONLY OPHTH 75739 [facility] MEDICAL 6 XM&EVAL COMPRHNSV ESTAB PT 1/> BLOOD 90056 [facility] COUNT 6 [facility] COMPLETE [facility] AUTO&[place] [address] [facility] FOLIC 6 [facility] [place] [address] [facility] IRON 6 [facility]INGS PREALBUMI 49871 [facility] N 6 [place] [address] [facility] ZINC 6 [place] [address] [facility] THIAMINE- 6 [facility]I [facility] VITAMIN [facility] [place] B-1 [place] [address] [facility] PHOSPHORU 6 [facility] S HOLDINGS HOLDINGS INORGANIC COMPREHEN 38848 [facility] SIVE 6 MAI [facility] METABOL[place] [address] [facility] VITAMIN A 6 [place] [address] [facility] TOCOPHERO 6 MAI MAI L ALPHA [facility] HOLDINGS VITAMIN E 25 50517 [facility] HYDROXY 6 MAI MAI INCLUDES [facility]INGS [place] [address] [facility] MAGNESIUM 6 [place] [address] [facility] FERRITIN 6 MAI MAI [facility]INGS HOLDINGS ORGANIC 22477 LAB [facility] ACID 1 6 MAI [facility] [place]IT[place] [address] [facility] PARATHORM 6 MAI MAI ONE [facility]INGS HOLDINGS IRON 87718 [facility] BINDING 6 [facility] CAPACITY INC INC COLLECTIO 59529 A[facility] N VENOUS 6 [facility] [place] [address] [facility] VAUGHN FERRITIN 6 [facility] TERA INC 25 87490 [facility] [facility] HYDROXY 6 [facility] INCLUDES [place] [address] [facility] [facility] THYROID 6 [facility] STIMULATI INC INC NG HORMONE TSH COMPREHEN 27974 [facility] [facility] SIVE 6 [facility] [address] [facility] IRON 6 [facility] INC INC BLOOD 07670 [facility] [facility] COUNT 6 [facility] COMPLETE INC INC AUTO&AUTO DIFRNTL WBC IADNA 28219 [facility] NEISSERIA 6 [facility] GONORRHOE AE AMPLIFIED PROBE TQ CYTP C/V 92245 [facility] AUTO THIN [facility] LYR PREPJ SCR MNL RESCR PHYS CYTP 58017 [facility] CERVICAL/ 6 [facility] VAGINAL REQ INTERP PHYSICIAN IADNA 83437 [facility] CHLAMYDIA 6 [facility] TRACHOMAT IS AMPLIFIED PROBE TQ IADNA 02475 [facility] HUMAN 6 LLC PAPILLOMA [place] [address] [facility] [facility] THYROID 6 [facility] STIMULATI INC INC NG HORMONE TSH BASIC 20796 [facility] METABOLIC 6 [facility] PANEL INC INC CALCIUM TOTAL COLLECTIO 49465 [facility] [facility] N VENOUS 6 [facility] BLOOD INC INC VENIPUNCT URE COLLECTIO 23377 [facility] [facility] N VENOUS 6 [facility] BLOOD INC INC VENIPUNCT URE ORGANIC 65067 [facility] ACID 1 6 [facility] [place] [address] [facility] IRON 6 [facility] INC INC PREALBUMI 48040 [facility] [facility] N 6 [facility] INC INC BLOOD 55662 [facility] COUNT 6 [facility] COMPLETE INC INC AUTO&[place] [address] [facility] THIAMINE- 6 [facility] VITAMIN INC INC B-1 [place] [address] [facility] FERRITIN 6 [facility] INC INC COMPREHEN 05645 [facility] SIVE 6 [facility] [address] LAB [facility] FERRITIN 5 MAI [facility] HOLDINGS HOLDINGS ORGANIC 40236 [facility] ACID 1 5 [facility] QUANTITAT [place] [address] LAB [facility] LAB [facility] THIAMINE- 5 [facility] VITAMIN HOLDINGS HOLDINGS B-1 GENERAL 61544 [facility] LAB [facility] HEALTH 5 MAI [place] [address] LAB [facility] LAB [facility] IRON 5 MAI MAI HOLDINGS HOLDINGS PREALBUMI 63319 [facility] N 5 [place] [address] LAB [facility] FOLIC 5 MAI MAI ACID HOLDINGS HOLDINGS SERUM DESTRUCTI 13780 ATKINS ATKINS ON 5 TRA TRA PREMALIGN ANT LESION 1ST DESTRUCTI 20338 ATKINS ATKINS ON BENIGN 5 TRA TRA LESIONS UP TO 14 [place] [address] SCALF LEI SCALF LEI SURG 5 PATHOLOGY GROSS&BRYCE ROSCOPIC EXAM BX SKIN 09611 ATKINS ATKINS SUBCUTANE 5 TRA TRA OUS&/MUCO US MEMBRANE 1 LESION BIOPSY 10914 ATKINS ATKINS SKIN 5 TRA TRA SUBQ&/MUC OUS MEMBRANE EA ADDL LESN COMPREHEN 67870 [facility] SIVE 5 [facility] METABOLIC [place] [address] LAB MA[facility] LAB [facility] THIAMINE- 5 [facility] VITAMIN HOLDINGS HOLDINGS B-1 ORGANIC 90451 [facility] ACID 1 5 [facility] QUANTITAT HOLDINGS HOLDINGS [place] BLOOD 94170 LAB [facility] LAB [facility] COUNT 5 [facility] COMPLETE HOLDINGS HOLDINGS AUTO&[place] [address] [facility] FOLIC 5 [facility] ACID HOLDINGS HOLDINGS SERUM PREALBUMI 05618 [facility] N 5 [place] [address] LAB [facility] LAB [facility] IRON 5 MAI MAI HOLDINGS HOLDINGS SCREENING G0202 [facility] 5 MEDICAL CARMEN MAMMOGRAP IMAGING HY WILBERT ASS INCL CAD WHEN PERFORMD COMPUTER- 20533 [facility] AIDED 5 MEDICAL CARMEN DETECTION IMAGING ASS SCREENING MAMMOGRAP HY LIPID 59530 [facility] PANEL 5 [facility] INC INC HEMOGLOBI 45196 [facility] N 5 [facility] GLYCOSY[place] [address] [facility] GLUTAMYLT 5 [facility] RASE INC INC GAMMA BLOOD 55014 [facility] [facility] COUNT 5 [facility] COMPLETE INC INC AUTO&AUTO DIFRNTL WBC COLLECTIO 05313 [facility] [facility] N VENOUS 5 [facility] BLOOD INC INC VENIPUNCT URE CYANOCOBA 44837 [facility] [facility] LYUBOV 5 [facility] VITAMIN INC INC B-12 25 50572 [facility] [facility] HYDROXY 5 [facility] INCLUDES INC INC FRACTIONS IF PERFORMED COMPREHEN 96658 [facility] [facility] SIVE 5 [facility] [place] [address] [facility] [facility] THYROID 5 [facility] STIMULATI INC INC NG HORMONE TSH OPHTH 80533 [email or web address] MEDICAL 5 ANG ANG XM&EVAL COMPRHNSV ESTAB PT 1/> [place] [address] [facility] ABDOMEN & 5 N N PELVIS COMMUNTIY COMMUNTIY W/[place] [address] [place] [facility] ABDOMEN & 5 [facility] PELVIS INC INC W/CONTRAS T MATERIAL URNLS DIP 76457 [facility] [facility] 5 [facility] STICK/TAB INC INC LET REAGENT AUTO MICROSCOP Y URINE 38110 [facility] 5 [facility] TEST INC INC VISUAL COLOR CMPRSN METHS BLOOD 57605 [facility] [facility] COUNT 5 [facility] COMPLETE INC INC AUTO&AUTO DIFRNTL WBC COMPREHEN 36472 [facility] SIVE 5 [facility] [place] [address] [facility] AMYLASE 5 [place] [address] [facility] LIPASE 5 [facility] INC INC CULTURE 52456 [facility] [facility] BACTERIAL 5 [facility] INC INC QUANTTATI VE COLONY COUNT URINE ORGANIC 83801 [facility] ACID 1 5 N N QUANTITAT COMMUNTIY COMMUNTI[place] [address] [facility] LIPASE 5 N N COMMUNTIY [place] [address] [facility] MAGNESIUM 5 N N COMMUNTIY COMMUNTIY HOSPITA HOSPITA COMPREHEN 85111 [facility] SIVE 5 N N METABOLIC COMMUNTIY COMMUNTIY [place] [address] [facility] AMYLASE 5 N N COMMUNTIY COMMUNTIY HOSPITA HOSPITA 25 46593 [facility] HYDROXY 5 N N INCLUDES COMMUNTIY COMMUNTIY FRACTIONS [place] [address] [facility] TOCOPHERO 5 N N L ALPHA COMMUNTIY COMMUNTIY [place] [address] [facility] VITAMIN A 5 N N COMMUNTIY [place] [address] [facility] THIAMINE- 5 N N VITAMIN COMMUNTIY COMMUNTIY B-[place] [address] [facility] PHOSPHORU 5 N N S COMMUNTIY COMMUNTIY [place] [address] [facility] ZINC 5 N N COMMUNTI[place] [address] [facility] FOLIC 5 N N ACID COMMUNTIY COMMUNTIY SERUM HOSPITA HOSPITA PREALBUMI 44652 [facility] N 5 N N COMMUNTIY COMMUNTIY HOSPITA HOSPITA BLOOD 68067 [facility] COUNT 5 N N COMPLETE COMMUNTIY COMMUNTIY AUTO&AUTO HOSPITA HOSPITA DIFRNTL WBC COLLECTIO 02043 [facility] N VENOUS 5 N N BLOOD COMMUNTIY COMMUNTIY [place]ENIPUN[place] [address] [facility] PARATHORM 5 N N ONE COMMUNTI[place] [address] [facility] ABDOMINAL 5 N N REAL COMMUNTIY COMMUNTIY TIME HOSPITA HOSPITA W/[place] [address] [facility] RETROPERI 5 [facility] [place] TIME W/[place] [address] [place] KADIE RETROPERI 5 MEDICAL TONEAL IMAGING REAL TIME ASS W/IMAGE LIMITED ALPHA-1-A 44725 [facility] NTITRYPSI 5 N N N TOTAL COMMUNTIY COMMUNTIY HOSPITA HOSPITA IRON 69005 [facility] BINDING 5 N N CAPACITY COMMUNTIY [place] [address] [facility] GAMMAGLOB 5 N N ULIN IGA COMMUNTIY COMMUNTIY IGD IGG HOSPITA HOSPITA IGM EACH BLOOD 06314 [facility] COUNT 5 N N COMPLETE COMMUNTIY COMMUNTIY AUTOMATED HOSPITA HOSPITA HEPATITIS 10223 [facility] C 5 N N ANTIBODY COMMUNTIY COMMUNTIY HOSPITA HOSPITA COLLECTIO 52261 [facility] N VENOUS 5 N N BLOOD COMMUNTIY COMMUNTIY VENIPUN[place] [address] [facility] IRON 5 N N COMMUNTIY COMMUNTIY HOSPITA HOSPITA HEPATITIS 87326 [facility] B CORE 5 N N ANTIBODY COMMUNTIY COMMUNTIY HBCAB HOSPITA HOSPITA TOTAL HEPATITIS 98756 [facility] B SURF 5 N N ANTIBODY COMMUNTIY COMMUNTIY HBSAB HOSPITA HOSPITA PROTHROMB 14572 [facility] IN TIME 5 N N COMMUNTIY [place] [address] [facility] HEPATITIS 5 N N B COMMUNTIY COMMUNTIY SURFACE HOSPITA HOSPITA ANTIGEN COMPREHEN 49395 [facility] SIVE 5 N N METABOLIC COMMUNTIY COMMUNTIY PANEL HOSPITA HOSPITA IMMUNOASS 62472 [facility] AY 5 N N ANALYTE COMMUNTIY COMMUNTIY QUAL/SEMI HOSPITA [place] [address] [facility] FERRITIN 5 N N COMMUNTIY COMMUNTIY HOSPITA HOSPITA ANTINUCLE 52579 [facility] AR 5 N N ANTIBODIE COMMUNTIY [place] [address] [facility] ABDOMEN & 5 MEDICAL PELVIS IMAGING W/O ASS CONTRAST MATERIAL DUP-SCAN 95271 [facility] [place] ANDREWS XTR VEINS 5 RADIOLOGY [place] [address] [facility] LIPASE 5 N N COMMUNTIY COMMUNTIY HOSPITA HOSPITA COMPREHEN 59802 [facility] SIVE 5 N N METABOLIC COMMUNTIY COMM[place]TI[place] [address] [facility] AMYLASE 5 N N COMMUNTIY COMMUNTIY HOSPITA HOSPITA BLOOD 20693 [facility] COUNT 5 N N COMPLETE COMMUNTIY COMMUNTIY AUTO&AUTO HOSPITA HOSPITA DIFRNTL WBC COLLECTIO 14635 [facility] N VENOUS 5 N N BLOOD COMMUNTIY COMMUNTIY [place]IPUN[place] [address] [facility] [place] SCALF HUBER TRACT 5 RADIOLOGY UPPER W/WO DELAYED IMAGES W/KUB LAPS 29305 [facility] SANCHEZ MICHELLE GSTRC 5 RSTRICTIV BARIATRIC PX SURGICAL LONGITUDI NAL GASTRECTO MY ANES IPR 38162 [facility] ANT UPPER 5 ANESTHESI ABDOMEN A GROUP LAPS PS GASTRIC RSTCV MO LAPAROSCO 4382 [facility] PIC 5 N N VERTICAL COMMUNTIY COMMUNTIY SLEEVE HOSPITA HOSPITA GASTRECTO MY OTHER 4513 [facility] ENDOSCOPY 5 N N OF SMALL COMMUNTIY COMMUNTIY HOSPITA HOSPITA INTESTINE APPL 56307 [facility] MODALITY 5 [facility] 1/> AREAS INC INC ELEC STIMJ UNATTENDE D APPLICATI 14645 [facility] ON 5 [facility] MODALITY INC INC 1/> AREAS HOT/COLD PACKS APPL 17551 [facility] MODALITY 5 [facility] 1/> AREAS INC INC ULTRASOUN D EA 15 MIN DUP-SCAN 66974 [facility] XTR VEINS 5 MEDICAL ADRIANNA COMPLETE IMAGING ASS BILATERAL STUDY GONADOTRO 03839 [facility] PIN 5 N N CHORIONIC COMMUNTIY COMMUNTIY HOSPITA HOSPITA QUALITATI VE COLLECTIO 55093 [facility] N VENOUS 5 N N BLOOD COMMUNTIY COMMUNTIY VENIPUNCT HOSPITA HOSPITA URE BLOOD 00497 [facility] COUNT 5 N N COMPLETE COMMUNTIY COMMUNTIY AUTOMATED HOSPITA HOSPITA COMPREHEN 65965 [facility] SIVE 5 N N METABOLIC COMMUNTIY COMMUNTIY PANEL HOSPITA HOSPITA APPL 45880 [facility] MODALITY 5 [facility] 1/> AREAS INC INC ULTRASOUN D EA 15 MIN APPLICATI 88655 [facility] ON 5 [facility] MODALITY INC INC 1/> AREAS HOT/COLD PACKS APPL 46158 [facility] MODALITY 5 [facility] 1/> AREAS INC INC ELEC STIMJ UNATTENDE D THERAPEUT 60935 [facility] IC PX 1/> 5 [facility] AREAS INC INC EACH 15 MIN EXERCISES CUL BACT 76107 [facility] XCPT 5 [facility] URINE INC INC BLOOD/STO OL AEROBIC ISOL SUSCEPTIB 71637 [facility] LTY STDY 5 [facility] ANTIMICRB INC INC IAL MICRO/AGA R DILUTJ THERAPEUT 77867 [facility] IC PX 1/> 5 [facility] AREAS INC INC EACH 15 MIN EXERCISES APPL 37925 [facility] MODALITY 5 [facility] 1/> AREAS INC INC ELEC STIMJ UNATTENDE D APPLICATI 31204 [facility] ON 5 [facility]AL[facility] INC 1/> AREAS HOT/COLD PACKS APPL 70830 [facility] MODALITY 5 [facility] 1/> AREAS INC INC ULTRASOUN D EA 15 MIN APPL 43370 [facility] MODALITY 5 [facility] 1/> AREAS INC INC ULTRASOUN D EA 15 MIN APPLICATI 49494 [facility] ON 5 [facility] MODALITY INC INC 1/> AREAS HOT/COLD PACKS APPL 29266 [facility] MODALITY 5 [facility] 1/> AREAS INC INC ELEC STIMJ UNATTENDE D APPL 57424 [facility] MODALITY 5 [facility] 1/> AREAS INC INC IONTOPHOR ESIS EA 15 MIN APPL 25788 [facility] MODALITY 5 [facility] 1/> AREAS INC INC IONTOPHOR ESIS EA 15 MIN THERAPEUT 33033 [facility] IC PX 1/> 5 [facility] ARE[facility] INC INC EACH 15 MIN EXERCISES APPL 10897 [facility] MODALITY 5 [facility] 1/> AREAS INC INC ELEC STIMJ UNATTENDE D APPLICATI 66719 [facility] ON 5 [facility] MODALITY INC INC 1/> AREAS HOT/COLD PACKS APPL 39905 [facility] MODALITY 5 [facility] 1/> AREAS INC INC ULTRASOUN D EA 15 MIN RADIOLOGI 49547 [facility] C EXAM 5 N N CHEST 2 COMMUNTIY COMMUNTIY VIEWS HOSPITA HOSPITA FRONTAL&L ATERAL LIPID 98524 [facility] PANEL 5 N N COMMUNTIY COMMUNTIY HOSPITA HOSPITA ECG 26773 [facility] ROUTINE 5 N N ECG COMMUNTIY COMMUNTIY W/LEAST HOSPITA HOSPITA 12 LDS TRCG ONLY W/O I&R BLOOD 69838 [facility] COUNT 5 N N COMPLETE COMMUNTIY COMMUNTIY AUTOMATED HOSPITA HOSPITA COLLECTIO 04326 [facility] N VENOUS 5 N N BLOOD COMMUNTIY COMMUNTIY VENIPUNCT HOSPITA HOSPITA URE THYROID 55706 [facility] HORM 5 N N UPTK/THYR COMMUNTIY COMMUNTIY OID HOSPITA HOSPITA HORMONE BINDING RATIO CUL 58330 [facility] PRSMPTV 5 N N PTHGNC COMMUNTIY COMMUNTIY ORGANISM HOSPITA HOSPITA SCRN W/[place] [address] [facility] THYROXINE 5 N N TOTAL COMMUNTIY COMMUNTIY HOSPITA HOSPITA COMPREHEN 75369 [facility] SIVE 5 N N METABOLIC COMMUNTIY COMMUNTIY [place] [address] [facility] THYROID 5 N N STIMULATI COMMUNTIY COMMUNTIY NG HOSPITA HOSPITA HORMONE TSH PHYSICAL 78430 [facility] [facility] THERAPY 5 [facility] EVALUATIO INC INC N FIBRIN 59899 [facility] [facility] DGRADJ 5 [facility] PRODUCTS INC INC D-DIMER QUAL/SEMI GILBERT COLLECTIO 19296 [facility] [facility] N VENOUS 5 [facility] BLOOD INC INC VENIPUNCT URE BLOOD 75146 [facility] [facility] COUNT 5 [facility] COMPLETE INC INC AUTO&[place] [address] [facility] TROPONIN 5 [facility] QUANTITAT INC INC SABIHA COMPREHEN 49151 [place] [facility] SIVE 5 [facility] METABOLIC INC INC PANEL ECG 82807 [place] [facility] ROUTINE 5 [facility] ECG INC INC W/LEAST 12 LDS TRCG ONLY W/O I&R URNLS DIP [address] [place] [facility] [address] [facility] STICK/TAB INC INC LET REAGENT AUTO MICROSCOP Y ECG 81747 [place] CHAVEZ JR ROUTINE 5 [facility] W/LEAST P 12 LDS I&R ONLY RADIOLOGI 94335 [place] [facility] C EXAM 5 [facility] CHEST 2 INC INC VIEWS FRONTAL&L ATERAL RADIOLOGI 16934 [place] [facility] C EXAM 5 [facility] CHEST 2 INC INC VIEWS FRONTAL&L ATERAL ECG 08135 [place] MATUTE ROUTINE 5 [facility] W/LEAST P 12 LDS I&R ONLY ECG 36930 [place] [facility] ROUTINE 5 [facility] ECG INC INC W/LEAST 12 LDS TRCG ONLY W/O I&R LOCM Q9967 [place] [facility] 300-[address] [facility] MG/ML INC INC IODINE CONCENTRA TION PER ML COMPREHEN 30767 [place] [facility] SIVE [address] [facility] METABOLIC INC INC PANEL FIBRIN 24531 [place] [facility] DGRADJ [address] [facility] PRODUCTS INC INC D-DIMER QUAL/[place] [address] [facility] [facility] TROPONIN 5 [facility]OSP QUANTITAT INC INC SABIHA BLOOD 62741 [facility] [facility] COUNT [address] [facility]P COMPLETE INC INC AUTO&[place] [address] [place] [facility] ANGIOGRAP 5 [facility] HY CHEST INC INC W/CONTRAS T/NONCONT RAST RADEX 34471 [place] HAR[place] SHOULDER 4 MEDICAL COMPLETE IMAGING MINIMUM 2 ASS VIEWS REPAIR 15555 ATKINS ATKINS COMPLEX 4 TRA TRA SCALP/ARM /LEG 1.1-2.5 CM DESTRUCTI 08688 ATKINS ATKINS ON BENIGN 4 TRA TRA LESIONS UP TO 14 LEVEL III 93798 SCALF LEI SCALF LEI SURG 4 PATHOLOGY GROSS&[place] [address] [place] HAR[place] HEAD/BRAI 4 MEDICAL ADRIANNA N W/O IMAGING CONTRAST ASS MATERIAL THERAPEUT 48930 [place] [facility] IC [address] [facility] INJECTION INC INC IV PUSH EACH NEW DRUG EGD 09100 [facility] TRANSORAL 4 N N BIOPSY [facility] SINGLE/MU HOSPITA HOSPITA LTIPLE ANES 42517 [facility] UPPER GI 4 ANESTHESI JOSE ANGEL ENDOSCOPY A GROUP [place] [address] [facility], PICKLES[facility] SURG 4 [facility] JR WANDA PATHOLOGY GROSS&BRYCE ROSCOPIC EXAM SPECIAL 85513 [facility], [facility] STAIN 4 [facility] GROUP 1 MICROORGA NISMS I&R SPCL STN 33325 [facility], PICKLESIM 2 I&R 4 [facility] JR WANDA EXCPT MICROORG/ ENZYME/IM CYT SPMTRY 68298 [place] [facility] W/VC 4 [facility] EXPIRATOR INC INC Y ABHI W/WO MXML VOL VNTJ REPAIR 89790 ADVANCED SCALF LEI COMPLEX 4 DERMATOLO SCALP/ARM GY /LEG 1.1-2.5 CM EXC B9 75731 ADVANCED SCALF LEI LESION 4 DERMATOLO MRGN XCP GY SK TG S/N/H/F/G 1.1-2.0CM LEVEL III 73068 SCALF LEI SCALF LEI SURG 4 PATHOLOGY GROSS&BRYCE ROSCOPIC EXAM RADIOLOGI 48649 [facility] EXAM 4 MEDICAL ADRIANNA CHEST 2 IMAGING VIEWS ASS FRONTAL&L ATERAL REMOVAL 81524 ATKINS ATKINS SKN TAGS 4 TRA TRA TRUCK TERMINAL MANAGER FIBRQ TAGS ANY AREA UPW/15 CV STRS 32867 [place] MATUTE TST 4 [facility] XERS&/OR HOSPITAL RX CONT P ECG I&R ONLY CV STRS 48032 [place] [facility] TST 4 [facility] XERS&/OR INC INC RX CONT ECG TRCG ONLY ECHO 64184 [place] [facility] TTHRC R-T 4 [facility] 2D INC INC W/WOM-MOD E COMPL SPEC&COLR D RADIOLOGI 56871 [facility] C EXAM 4 MEDICAL CARMEN CHEST 2 IMAGING VIEWS ASS FRONTAL&L ATERAL ECG 49536 SCOTT CHAVEZ JR ROUTINE 4 DWI DWI ECG W/LEAST 12 LDS I&R ONLY RADIOLOGI 74821 HARLEEN HARLEEN C 4 ADRIANNA ADRIANNA EXAMINATI ON CHEST [place] FRONTAL ECG 97337 [place] [facility] ROUTINE 4 [facility] ECG INC INC W/LEAST 12 LDS TRCG ONLY W/O I&R BLOOD 95032 [place] [facility] COUNT 4 [facility] COMPLETE INC INC AUTO&[place] [address] [place] [facility] TROPONIN 4 [facility] QUANTITAT INC INC SABIHA BASIC 45823 [place] [facility] METABOLIC 4 [facility] [place] [address] [place] [facility] TROPONIN 4 [facility] QUANTITAT INC INC SABIHA BLOOD 24123 [place] [facility] COUNT 4 [facility] COMPLETE INC INC AUTO&AUTO DIFRNTL WBC COMPREHEN 92048 [place] [facility] SIVE 4 [facility] METABOLIC INC INC PANEL FIBRIN 23457 [place] [facility] DGRADJ 4 [facility] PRODUCTS INC INC D-DIMER QUAL/SEMI GILBERT CREATINE 71514 [place] [facility] KINASE 4 [facility] TOTAL INC INC CREATINE 41862 [place] [facility] KINASE MB 4 [facility] FRACTION INC INC ONLY ECG 72081 [place] [facility] ROUTINE 4 [facility] ECG INC INC W/LEAST 12 LDS TRCG ONLY W/O I&R ECG 26277 ANKUR SANCHEZEY ROUTINE 4 BRYCE BRYCE ECG W/LEAST 12 LDS I&R ONLY RADIOLOGI 91067 BEINEKE D BEMICHAEL D C EXAM 4 CHEST 2 VIEWS FRONTAL&L ATERAL HEMOGLOBI 14520 COMBINED COMBINED N 4 PHYSICIAN PHYSICIAN GLYCOSYLA S LA S LA LANEY A1C LIPID 14637 COMBINED COMBINED PANEL 4 PHYSICIAN PHYSICIAN S LA S LA 25 18497 COMBINED COMBINED HYDROXY 4 PHYSICIAN PHYSICIAN INCLUDES S LA S LA FRACTIONS IF PERFORMED CYANOCOBA 90113 COMBINED COMBINED LYUBOV 4 PHYSICIAN PHYSICIAN VITAMIN S LA S LA B-12 SEDIMENTA 56786 COMBINED COMBINED TION RATE 4 PHYSICIAN PHYSICIAN [place] [address] COMBINED COMBINED FREE 4 PHYSICIAN PHYSICIAN THYROXINE S LA S LA GENERAL 12689 COMBINED COMBINED HEALTH 4 PHYSICIAN PHYSICIAN PANEL S LA S LA SCREENING G0202 [place] HARLEEN 4 MEDICAL ADRIANNA MAMMOGRAP IMAGING HY WILBERT ASS INCL CAD WHEN PERFORMD COMPUTER- 82207 [place] HARLEEN AIDED 4 MEDICAL ADRIANNA DETECTION IMAGING ASS SCREENING MAMMOGRAP HY LIPID 76462 [facility] PANEL 4 DIAGNOSTI DIAGNOSTI CS CS IIV3 49024 DHS/CO [place] VACCINE 9 [facility]ALTH CO [facility] VIRUS 0.5 BANK ACCT ML DOSAGE IM USE RADEX 76619 MOHAN ANKUR, SPINE 9 [facility] CORPORATI COMPL ON W/BENDING VIEWS MIN 6 RADIOLOGI 43852 [place] [facility] C 9 [facility] EXAMINATI INC INC ON PELVIS 1/2 VIEWS RADEX HIP 82846 SEJAL MOISE, 9 MEDICAL MAX [place] [facility]ATE COMPLETE S MINIMUM 2 VIEWS RADEX 51015 [place] [facility] SPINE 9 [facility] LUMBOSACR INC INC AL MINIMUM 4 VIEWS Encounters Encounter Start End Date Code Location Performer Type Date OFFICE 48505 [place] [facility] T VISIT 5 INC MINUTES [facility] [place] [facility] T [facility] [place] [facility] OUTPATIEN INC T EMERGENCY 04156 [place] 7 7 [facility] DEPARTMEN INC T VISIT MODERATE SEVERITY EMERGENCY 60280 [facility] DEPT 7 7 PHYSICIAN VISIT S, [facility] HIGH SEVERITY& THREAT [facility] - 7 7 [facility] OUTPATIEN [place] T OFFICE 50156 [place] ARSLAN OUTPATIEN 7 7 JENNERS T VISIT INTERNAL 15 MED MINUTES [facility] JEWISH - 7 7 HEALTH OUTPATIEN [place] T OFFICE 98079 [place] CELI OUTPATIEN 7 7 [facility] T VISIT HOSPITAL 10 P MINUTES OFFICE 71998 [facility] FUNES OUTPATIEN 7 7 HEALTH T VISIT MEDICAL 25 GROUP MINUTES OFFICE 95800 [place] [facility] 7 7 [facility] T VISIT INC 10 MINUTES OFFICE 63890 YVETTE AVINA OUTPATIEN 7 7 MD RHIANNON, T VISIT PSC 15 MINUTES [facility] [place] [facility] OUTPATIEN INC T OFFICE 38892 [place] [facility] 7 7 [facility] T VISIT 5 INC MINUTES [facility] [place] [facility] OUTPATIEN INC T OFFICE 36095 [place] WEISS JR OUTPATIEN 7 7 [facility] T VISIT HOSPITAL 10 P MINUTES EMERGENCY 06387 [facility] PASCUAL DEPT 7 7 PHYSICIAN VISIT S, [facility] HIGH SEVERITY& THREAT [facility] [place] [facility] OUTPATIEN INC T EMERGENCY 30162 [place] 7 7 [facility] DEPARTMEN INC T VISIT LOW/MODER SEVERITY OFFICE 49123 [place] ALATORRE OUTPATIEN 7 7 [facility] T VISIT [facility] 10 P MINUTES [facility] [place] [facility] OUTPATIEN INC T EMERGENCY 31894 [place] 7 7 [facility] DEPARTMEN INC T VISIT HIGH/URGE NT SEVERITY [facility] [place] [facility] OUTPATIEN INC [facility] [place] [facility] OUTPATIEN INC T PERIODIC 81047 [facility] KAM EDWARDSIV 7 7 PHYSICIAN E MED EST S GROUP PATIENT [id number] OFFICE 21797 [facility] MATUTE OUTPATIEN 7 7 JENNERS T VISIT INTERNAL 15 MED MINUTES [facility] [place] [facility] OUTPATIEN INC T OFFICE 83828 [facility] MAEGAN OUTPATIEN 7 7 PHYSICIAN T VISIT S GROUP 15 MINUTES EMERGENCY 52452 [facility] JAQUEZ 7 7 PHYSICIAN DEPARTMEN S, [facility] T VISIT HIGH/URGE NT SEVERITY [facility] [place] [facility] OUTPATIEN INC T OFFICE 67232 [place] CELI [facility]PATIEN 7 7 [facility]IT [facility] 10 P MINUTES OFFICE 98226 YVETTE JURADO OUTPATIEN 7 7 MD RHIANNON, T VISIT PSC 10 MINUTES [facility] [place] [facility] OUTPATIEN INC T [facility] [place] [facility] OUTPAT[facility]EN INC [facility] [place] [facility] OUTPATIEN INC T OFFICE 46325 [facility] KIMBERLY OUTPATIEN 7 7 PHYSICIAN T VISIT S GROUP 25 MINUTES [facility] [place] [facility] OUTPATIEN INC [facility] [place] [facility] OUTPATIEN INC T OFFICE 04597 [facility] ISSA OUTPATIEN 7 7 PHYSICIAN T VISIT S GROUP 10 MINUTES OFFICE 57402 [place] [facility] 7 7 [facility] T VISIT 5 INC MINUTES OFFICE 53570 YVETTE MARSHPERCY OUTPATIEN 7 7 MD RHIANNON, T NEW 30 PSC MINUTES EMERGENCY 40206 [facility] SOTOMAYOR 7 7 PHYSICIAN [facility] S, [facility] T VISIT HIGH/URGE NT SEVERITY [facility] [place] [facility] OUTPATIEN INC T OFFICE 92231 [facility] KIMBERLY OUTPATIEN 7 7 PHYSICIAN T VISIT S GROUP 25 MINUTES [facility] [place] [facility] OUTPATIEN INC T OFFICE 57873 [place] [facility] OUTPATIEN 7 7 [facility] T VISIT INTERNAL 15 MED MINUTES [facility] [place] [facility] OUTPATIEN INC T OFFICE 70679 [facility] KIMBERLY OUTPATIEN 7 7 PHYSICIAN T VISIT S GROUP 25 MINUTES OFFICE 19736 [facility] OUTPATIEN 7 7 [place] T VISIT ORTHOPAED 15 IC [facility] [place] [facility] 7 [facility]EN [facility] T EMERGENCY 95969 [facility] ARMIJO DEPT 7 7 PHYSICIAN VISIT S, [facility] HIGH SEVERITY& THREAT FUNCJ EMERGENCY 14691 [place] 7 7 [facility] DEPARTMEN INC T VISIT HIGH/URGE NT SEVERITY OFFICE 25257 LU[facility] MATUTE OUTPATIEN 7 7 JENNERS T VISIT INTERNAL 25 MED [facility] [place] [facility]EN [facility] T OFFICE 67798 [place] OUT[facility] 7 7 [facility] T VISIT 5 INC MINUTES OFFICE 75260 [facility] OUTPATIEN 7 7 [place] T NEW 30 ORTHOPAED MINUTES [facility] [place] [facility] 7 7 [facility] OUTPATIEN INC T EMERGENCY 37352 [facility] JIMENEZ DEPT 7 7 PHYSICIAN U VISIT S, [facility] HIGH SEVERITY& THREAT FUNCJ EMERGENCY 82014 [place] 7 7 [facility] DEPARTMEN INC T VISIT LOW/MODER SEVERITY [facility] [place] [facility] 7 7 [facility] T [facility] [place] [facility] 7 [facility] OUTPATIEN INC T EMERGENCY 16191 [place] 7 7 [facility] DEPARTMEN INC T VISIT MODERATE SEVERITY EMERGENCY 56870 [facility] PASCUAL 7 7 PHYSICIAN DEPARTMEN S, [facility] T VISIT HIGH/URGE NT SEVERITY EMERGENCY 27714 [place] 7 7 [facility] DEPARTMEN INC T VISIT LOW/MODER SEVERITY [facility] [place] [facility] OUTPATIEN INC T OFFICE 66575 [place] [facility] 7 7 [facility] T VISIT 5 INC MINUTES [facility] [place] [facility] OUTPATIEN INC T OFFICE 88659 [place] 7 7 [facility] T VISIT INTERNAL 15 MED MINUTES EMERGENCY 28016 [place] 7 7 [facility] T VISIT LOW/MODER SEVERITY [facility] [place] - 7 7 [facility] T EMERGENCY 17174 [facility] 7 7 [facility] EMERGENCY T VISIT PHYS MODERATE SEVERITY OFFICE 26526 [place] [facility] 7 7 [facility] T VISIT 5 INC MINUTES [facility] [place] [facility] OUTPATIEN INC T OFFICE 00673 [place] OUT[facility] 7 7 [facility] T VISIT INTERNAL 15 MED MINUTES [facility] [place] [facility] 7 [facility] OUTPATIEN INC T EMERGENCY 24363 [facility] MEDEROS 7 7 [facility] T VISIT MODERATE SEVERITY OFFICE 41632 [place] [facility] 7 7 [facility] T VISIT 5 INC MINUTES OFFICE 32886 [place] [facility] 7 7 [facility] T VISIT 5 INC MINUTES [facility] [place] [facility] OUTPATIEN INC T OFFICE 04595 [place] OUTPATIEN 7 7 [facility] T VISIT INTERNAL 25 MED MINUTES [facility] [place] [facility] OUTPATIEN INC T OFFICE 24557 [place] [facility] 7 7 [facility] T NEW 10 INC MINUTES OFFICE 88286 [place] JASSO OUTPATIEN 7 7 T VISIT 25 MINUTES [facility] - 7 7 [facility]PATIEN [place] T EMERGENCY 45074 [place] 7 7 [facility] DEPARTMEN INC T VISIT LIMITED/M INOR PROB [facility] [place] - 7 7 [facility] OUTPATIEN [facility] [place] [facility] 7 7 [facility] OUTPATIEN [facility] EMERGENCY 59554 [place] 7 7 [facility] T VISIT LOW/MODER [facility]VERITY [facility] [place] - 7 7 [facility] OUTPATIEN [facility] EMERGENCY 48724 [place] 7 7 [facility] T VISIT LIMITED/M INOR PROB EMERGENCY 35196 [facility] PASCUAL 7 7 PHYSICIAN [facility] T VISIT MODERATE SEVERITY [facility] EM[facility] 15382 [facility] SOTOMAYOR 6 6 PHYSICIAN [facility], [facility] T VISIT HIGH/URGE NT SEVERITY [facility] [place] [facility] 6 6 [facility] 34472 [place] 6 6 [facility] VISIT INTERNAL 15 MED MINUTES EMERGENCY 67650 [place] 6 6 [facility] T VISIT MODERATE SEVERITY [facility] [place] [facility] 6 6 [facility] EMERGENCY 16470 [facility] JAQUEZ 6 6 PH[facility]ICIAN [facility]IS[facility] HIGH/URGE NT SEVERITY EMERGENCY 31396 [facility] ARMIJO 6 6 PHYSICIAN [facility] T VISIT MODERATE SEVERITY EMERGENCY 52909 [place] 6 6 [facility] T VISIT LOW/MODER SEVERITY EMERGENCY 98123 S[facility] PASCUAL 6 6 PHYSICIAN [facility] VISIT MODERATE SEVERITY [facility] [place] [facility] OUTPATIEN INC T OFFICE 26668 SCIFRES SCIFRES OUTPATIEN 6 6 ANG ANG T VISIT 10 MINUTES OFFICE 86267 [place] ARSLAN OUTPATIEN 6 6 [facility] OFELIA T VISIT INTERNAL 15 MED MINUTES OFFICE 25032 WENDY MARTINEZ OUTPATIEN 6 6 T VISIT BARIATRIC 25 SURGICAL MINUTES EMERGENCY 69986 [place] 6 6 [facility] DEPARTMEN INC T VISIT LOW/MODER SEVERITY EMERGENCY 68987 S[facility] SOTOMAYOR 6 6 PHYSICIAN JR [facility] T VISIT HIGH/URGE NT SEVERITY [facility] [place] [facility] 6 [facility] OUTPATIEN INC T EMERGENCY 92823 [facility] PASCUAL 6 6 [facility]YSICIAN [facility] T VISIT MODERATE SEVERITY OFFICE [address] [facility] FALLUJI OUTPATIEN 6 6 [facility] NACHO T VISIT MEDICAL 15 G MINUTES [facility] [place] [facility] OUTPATIEN INC T OFFICE 36110 [facility] HUMPHREY OUTPATIEN 6 6 PHYSICIAN MEAGAN T VISIT S GROUP 15 MINUTES [facility] [place] [facility] OUTPATIEN INC T OFFICE 51766 [facility] ISSA OUTPATIEN 6 6 PHYSICIAN JARON T VISIT S GROUP 10 MINUTES [facility] [place] [facility] 6 [facility] OUTPATIEN INC T [facility] [place] [facility] 6 6 [facility] OUTPATIEN INC T EMERGENCY 58614 [place] 6 6 [facility] DEPARTMEN INC T VISIT MODERATE SEVERITY OFFICE 27396 [facility] ISSA OUTPATIEN 6 6 PHYSICIAN JARON T VISIT S GROUP 10 MINUTES OFFICE 02739 [place] ALATORRE OUTPATIEN 6 6 [facility] T VISIT HOSPITAL 10 P MINUTES OFFICE 02851 DOMINICK ANDRES OUTPATIEN 6 6 HEALTH IV HEN T VISIT MEDICAL 15 GROUP MINUTES OFFICE 81289 PERLA RODRIGUEZ TRI OUTPATIEN 6 6 GROUND T VISIT FAMILY 25 CLINI MINUTES OFFICE 21399 [facility] 5 [facility] DEPT HLTH DEPT MINUTES JAZZ JAZZ EMERGENCY 24030 [place] 6 6 [facility] T VISIT LOW/MODER SEVERITY EMERGENCY 31320 S[facility] ARMIJO 6 6 PHYSICIAN SILVIO DALE T VISIT HIGH/URGE NT SEVERITY [facility] [place] [facility] 6 6 [facility] [place] [facility] 6 6 [facility] T OFFICE 58814 [facility] KIMBERLY OUTPATIEN 6 6 PHYSICIAN MAT T VISIT S GROUP 25 MINUTES OFFICE 69932 BLUENANCY SANCHEZ OUTPATIEN 6 6 T VISIT BARIATRIC 25 SURGICAL MINUTES EMERGENCY 45651 [facility] PASCUAL 6 6 PHYSICIAN BYRCE Reddy [facility] T VISIT MODERATE SEVERITY OFFICE 67119 [facility] KIMBERLY OUTPATIEN 6 6 PHYSICIAN MAT Berenice NEW 45 S GROUP MINUTES EMERGENCY 87016 [facility] JIMENEZ 6 6 PHYSICIAN Taylor [facility] HIGH/URGE NT SEVERITY [facility] [place] [facility] 6 6 [facility] T OFFICE 01860 ALLERGY ROSENTHAL MAR OUTPATIEN 6 6 PARTNERS T VISIT OF [place] 40 CO MINUTES EMERGENCY 20961 [place] 6 6 [facility] T VISIT LOW/MODER SEVERITY EMERGENCY 02315 SMILEY PASCUAL 6 6 PHYSICIAN BRYCE Reddy [facility] T VISIT MODERATE SEVERITY [facility] [place] [facility] 6 [facility] T OFFICE 40737 [facility] 6 6 N T VISIT NEUROLOGY 10 MINUTES [facility] [place] [facility] 6 6 [facility] OUT[facility] INC T EMERGENCY 44917 SMILEY SOTOMAYOR, 6 6 PHYSICIAN JR MANUELITO FUENTESMEN S, PLLC T VISIT MODERATE SEVERITY [facility] [place] - 6 6 [facility] OUTPATIEN INC T EMERGENCY 68854 SMI[facility] PASCUAL DEPT 6 6 PHYSICIAN BRYCE VISIT S, PLLC HIGH SEVERITY& THREAT FUNCJ OFFICE 63923 [place] [facility] 6 6 [facility] 10 P MINUTES EMERGENCY 22353 [place] 6 6 [facility] DEPARTMEN INC T VISIT MODERATE SEVERITY [facility] [place] - 6 6 [facility] OUTPATIEN INC T EMERGENCY 72912 SMILEY SOTOMAYOR, 6 6 PHYSICIAN JR MANUELITO GARCIA S, PLLC T VISIT HIGH/URGE NT SEVERITY OFFICE 35057 [place] WEISS JR OUTPATIEN 6 6 [facility] T VISIT HOSPITAL 10 P MINUTES OFFICE 88946 ALLERGY ROSENTHAL MAR CONSULTAT 6 6 PARTNERS [facility] [place] NEW/ESTAB CO PATIENT 60 MIN EMERGENCY 48607 SMILEY PASCUAL DEPT 6 6 PHYSICIAN BRYCE VISIT S, PLLC HIGH SEVERITY& THREAT FUNCJ EMERGENCY 35330 SMILEY PASCUAL 6 6 PHYSICIAN BRYCE DEPARTMEN S, PLLC T VISIT MODERATE SEVERITY EMERGENCY 05426 SMILEY PASCUAL DEPT 6 6 PHYSICIAN BRYCE VISIT S, PLLC HIGH SEVERITY& THREAT FUNCJ OFFICE 10145 [facility] OUTPATIEN 6 6 PHYSICIAN T VISIT S GROUP 25 MINUTES EMERGENCY 95559 SMILEY HUNT 6 6 PHYSICIAN DEPARTMEN S, PLLC T VISIT LOW/MODER SEVERITY [facility] [place] [facility] 6 6 [facility] T [facility] [place] [facility] 6 6 [facility] OUT[facility] INC T EMERGENCY 36330 [place] 6 6 [facility] DEPARTMEN INC T VISIT LOW/MODER SEVERITY EMERGENCY 78271 SMILEY PASCUAL 6 6 PHYSICIAN BRYCE DEPARTMEN S, PLLC T VISIT MODERATE SEVERITY HOSPITAL [facility] - 6 6 N OUTPATIEN COMMUNTIY T HOSPITA EMERGENCY 53264 SMILEY ARMIJO DEPT 6 6 PHYSICIAN CASANDRA VISIT S, PLLC HIGH SEVERITY& THREAT FUNCJ OFFICE 26208 [facility] 6 6 PHYSICIAN JARON T NEW 20 S GROUP MINUTES EMERGENCY 37201 SMILEY PASCUAL 6 6 PHYSICIAN [facility] DEPARTMEN S, PLLC T VISIT HIGH/URGE NT SEVERITY [facility]OSPITAL [facility] - 6 6 N OUTPATIEN COMMUNTIY T HOSPITA EMERGENCY 65212 SMILEY PASCUAL DEPT 6 6 PHYSICIAN BRYCE VISIT S, PLLC HIGH SEVERITY& THREAT FUNCJ OFFICE 32572 [facility] T VISIT BARIATRIC 25 SURGICAL MINUTES HOSPITAL [facility] - 6 6 HEALTH OUTPATIEN [facility] EMERGENCY 28453 [facility] 6 6 EMERGENCY [facility] P[facility] T VISIT MODERATE SEVERITY [facility] [place] - 6 6 [facility] OUTPATIEN INC T EMERGENCY 90608 [place] 6 6 [facility] DEPARTMEN INC T VISIT LOW/MODER SEVERITY EMERGENCY 86461 SMILEY BAGLEY DEPT 6 6 PHYSICIAN FOR VISIT S, PLLC HIGH SEVERITY& THREAT FUNCJ EMERGENCY 23365 SMILEY PASCUAL 6 6 PHYSICIAN [facility] DEPARTMEN S, PLLC T VISIT HIGH/URGE NT SEVERITY [facility]OSP[facility] [place] [facility] 6 6 [facility] OUTPATIEN INC T EMERGENCY 58451 SMILEY [facility] 6 6 PHYSICIAN [facility] S, [facility] HIGH/URGE NT SEVERITY EMERGENCY 40050 [facility] 6 6 ROSALEE JOSE ANGEL DEPARTMEN EMERGENCY T VISIT PHYS HIGH/URGE NT SEVERITY [facility]OSPITAL [facility] - 6 6 N [facility] [place] [facility] OUTPATIEN INC T EMERGENCY 39865 [place] DEPT 6 6 [facility] VISIT INC HIGH SEVERITY& THREAT FUNCJ OFFICE 43332 [facility] CONSULTAT 6 6 N ION NEUROLOGY NEW/ESTAB PATIENT 60 MIN OFFICE 23297 [facility] OUT[facility]IEN 6 6 MATTI MATTI T NEW 30 MINUTES OFFICE 05194 SCALF LEI SCALF LEI OUTPATIEN 6 6 T VISIT 25 MINUTES EMERGENCY 23769 SMILEY PASCUAL DEPT 6 6 PHYSICIAN BRYCE VISIT S, PLLC HIGH SEVERITY& THREAT FUNCJ OFFICE 27625 [place] OUTPATIEN 6 6 [facility] T VISIT INTERNAL 15 MED [facility] [place] - 6 6 [facility]EN [facility] [place] [facility]ENC[facility] 38739 SMILEY SANCHEZEY DEPT 6 6 PHYSICIAN BRYCE VISIT S, PLLC HIGH SEVERITY& THREAT FUNCJ OFFICE 51409 JEWISH BOLIEK OUTPATIEN 6 6 HEALTH KADIE T VISIT MEDICAL 15 GROUP MINUTES OFFICE 49092 [facility] SANCHEZ MICHELLE OUTPATIEN 6 6 T VISIT BARIATRIC 25 SURGICAL MINUTES [facility] [place] [facility] OFFICE 00879 [place] ARSLAN OUTPATIEN 6 6 [facility] OF[facility]IA T VISIT INTERNAL 15 MED MINUTES INITIAL 54595 [facility] PREVENTIV 6 6 PHYSICIAN E S GROUP MEDICINE NEW PATIENT 40-64YRS [facility] [place] - 6 6 [facility] OFFICE 47607 JEWISH BOLIEK OUTPATIEN 6 6 PRIMARY KADIE T VISIT CARE OF 15 ABISAI MINUTES OFFICE 07066 [place] ARSLAN OUTPATIEN 6 6 [facility] T VISIT INTERNAL 15 MED MINUTES [facility] [place] [facility] T OFFICE 07964 WENDY SANCHEZ MICHELLE OUTPATIEN 5 5 T VISIT BARIATRIC 25 SURGICAL MINUTES OFFICE 59715 ATKINS ATKINS OUTPATIEN 5 5 TRA TRA T VISIT 25 MINUTES PERIODIC 92289 [facility] HLTH DEPT HLTH DEPT PATIENT JAZZ JAZZ 40-64YRS OFFICE 44017 WENDY SANCHEZ MICHELLE OUTPATIEN 5 5 T VISIT BARIATRIC 15 SURGICAL MINUTES [facility] [place] [facility] 5 5 [facility] OFFICE 26970 [place] ARSLAN OUTPATIEN 5 5 [facility] T NEW 30 INTERNAL MINUTES MED [facility] [place] - 5 5 [facility] OFFICE 80618 [facility] PETTEY OUTPATIEN 5 5 PHYSICIAN JAM T VISIT S GROUP 15 MINUTES OFFICE 07532 GASTRO[facility] CASE JUS OUTPATIEN 5 5 EROLOGY T VISIT AND 15 HEPATOL MINUTES OFFICE 74996 JEWISH BOLIEK OUTPATIEN 5 5 HEALTH KADIE T VISIT MEDICAL 10 GROUP MINUTES [facility] 51394 SMILEY HUTCHISON 5 5 [facility] SSILVIO T VISIT HIGH/URGE NT SEVERITY [facility] [place] [facility] 5 [facility] - 5 5 N OUTPATIEN COMMUNTIY T HOSPITA OFFICE 60406 GASTROENT CASE JUS OUTPATIEN 5 5 EROLOGY T NEW 45 AND MINUTES HEPATOL [facility]OS[facility] [place] [facility] 5 5 [facility] OUT[facility] [place] [facility] 5 [facility] OUTPATIEN [facility] EMERGENCY 39057 [place] SOTOMAYOR, 5 5 [facility] T VISIT P LOW/MODER SEVERITY OFFICE 96867 DANIEL CHAND 5 5 HUBER HUBER T VISIT 15 MINUTES [facility]OS[facility] [place] - 5 5 [facility] OUTPATIEN [facility] EMERGENCY 69292 [place] SOTOMAYOR 5 5 [facility] T VISIT P MODERATE SEVERITY [facility] [place] - 5 5 N OUTPATIEN COMMUNTIY [facility] - 5 5 N OUTPATIEN COMMUNTIY [facility] - 5 5 N INPATIENT COMMUNTIY [facility] [place] - 5 5 [facility] OFFICE 97497 [facility] SANCHEZ MICHELLE OUTPATIEN 5 5 T VISIT BARIATRIC 40 SURGICAL MINUTES OFFICE 85903 DANIEL TOLEDOPATIEN 5 5 HUBER HUBER T VISIT 15 MINUTES EMERGENCY 04043 [place] PASCUAL 5 5 [facility] T VISIT P LOW/MODER SEVERITY [facility] [place] [facility] 5 [facility] [place] [facility] 5 [facility] [place] - 5 5 N OUTPATIEN COMMUNTIY T [facility] [place] [facility] 5 5 [facility] T OFFICE 66930 [place] CELI OUTPATIEN [address] MINUTES P [facility]OSP[facility] [place] [facility] OFFICE 45147 MELANIE NOGUEIRA OUTPATIEN 5 5 MEDICAL JAM T VISIT SERV 15 FOUNDATIO MINUTES N OFFICE 82853 [place] WEISS JR OUTPATIEN [address] MINUTES P OFFICE 23722 [facility] PETTEMago OUTPATIEN 5 5 PHYSICIAN JAM T NEW S GROUP MINUTES OFFICE 62286 [facility] CONSULTAT 5 5 [facility] MEDICAL NEW/ESTAB G PATIENT 60 MIN OFFICE 74929 DANIEL TOLEDOPATIEN 5 5 HUBER HUBER T VISIT 15 MINUTES EMERGENCY 06003 [place] 5 5 [facility] T VISIT HIGH/URGE NT SEVERITY [facility] [place] - 5 5 [facility] EMERGENC[facility] 93283 [place] ESCOTO 5 5 [facility] T VISIT P MODERATE SEVERITY EMERGENCY 15290 [place] 5 5 [facility] T VISIT HIGH/URGE NT SEVERITY [facility] [place] - 5 5 [facility] T OFFICE 40001 DANIEL TOLEDOPATIEN 5 5 HUBER HUBER T VISIT 15 MINUTES OFFICE 05824 DANIEL CHAND 4 4 HUBER HUBER T VISIT 15 MINUTES EMERGENCY 96108 [place] 4 4 [facility] T VISIT LOW/MODER SEVERITY [facility] [place] [facility] 4 4 [facility] OFFICE 40702 DANIEL CHAND 4 4 HUBER HUBER T VISIT 15 MINUTES [facility] [place] - 4 4 [facility] EMERGENCY 87262 [facility] DEPT 4 4 ROSALEE VISIT EMERGENCY HIGH PHYS SEVERITY& THREAT [facility] - 4 4 N OUTPATIEN COMMUNITY T HOSPITA OFFICE 38747 DANIEL CHAND 4 4 HUBER HUBER T VISIT 15 MINUTES OFFICE 82986 MONALISA CHAPIN CONSULTAT 4 4 KADIE ION CARDIOLOG NEW/ESTAB Y AT CENT PATIENT 40 MIN [facility] [place] - 4 4 [facility] T OFFICE 84484 [place] NOGUEIRA CONSULTAT 4 4 MEDICAL JAM ION SERV NEW/ESTAB FOUNDATIO PATIENT N 60 MIN [facility] [place] - 4 4 [facility] T OFFICE 35942 DANIEL CHAND 4 4 HUBER HUBER T VISIT 15 MINUTES OFFICE 56581 [facility] T VISIT MEDICAL 15 G MINUTES OFFICE 23573 ATKINS ATKINS CONSULTAT 4 4 TRA TRA ION NEW/ESTAB PATIENT 40 MIN [facility] [place] - 4 4 [facility] OFFICE [address] [facility] FALLUJI OUTPATIEN 4 4 [facility] T NEW 30 MEDICAL MINUTES G EMERGENCY 89318 [facility] DEPT 4 4 ROSALEE MOH VISIT EMERGENCY HIGH PHYSI SEVERITY& THREAT FUN EMERGENCY 72746 [place] 4 4 [facility] T VISIT MODERATE SEVERITY [facility] [place] [facility] 4 4 [facility] T EMERGENCY 42749 HORTENCIA HUGHES DEPT 4 4 VISIT HIGH SEVERITY& THREAT FUNCJ EMERGENCY 89284 ANKUR PASCUAL DEPT 4 4 BRYCE BRYCE VISIT HIGH SEVERITY& THREAT FUN OFFICE 20032 DANIEL CHAND 4 4 HUBER HUBER T VISIT 15 MINUTES EMERGENCY 09995 [place] 4 4 [facility] T VISIT HIGH/URGE NT SEVERITY [facility] [place] [facility] 4 [facility] T OFFICE 09988 SANCHEZ MICHELLE SACNHEZ MICHELLE CONSULTAT 4 4 ION NEW/ESTAB PATIENT 80 MIN OFFICE 80336 DANIEL CHAND 4 4 HUBER HUBER T NEW 30 MINUTES [facility] [place] - [facility] 4 [facility] T OFFICE 74661 ISSA ISSA OUTPATIEN 4 4 JARON JARON T VISIT 5 MINUTES OFFICE 07176 ISSA ISSA OUTPATIEN 4 4 JARON JARON T NEW 30 MINUTES EMERGENCY 04330 [place] 9 9 [facility] T VISIT LOW/MODER SEVERITY [facility] [place] - 9 9 [facility] T EMERGENCY 96115 KIMBERLEE PASCUAL, 9 9 [facility] T VISIT ON HIGH/URGE NT SEVERITY
--- OUTSIDE RECORDS SUMMARY | 2017-06-20 20:20 | External Medical Summary Rpt ---
Demographics Preferred Language Greenlandic Marital Status Unknown Congregation Affiliation Unknown Race Unknown Ethnic Group Unknown Author Author , DAVIS RAMON Address Unknown Phone Immunization Unable to retrieve immunization data due to connection failure with Immunization Registry. Please try again later.
--- OUTSIDE RECORDS SUMMARY | 2017-06-20 20:20 | External Medical Summary Rpt ---
Demographics Preferred Language Frisian Marital Status Unknown Buddhism Affiliation Unknown Race Unknown Ethnic Group Unknown Author Author , DAVIS RAMON Address Unknown Phone Immunization Unable to retrieve immunization data due to connection failure with Immunization Registry. Please try again later.
--- NOTE | 2017-06-20 21:19 | Emergency Room Report ---
History of Present Illness Time Seen by [id number] Presenting Problem in Triage Pt arrived:Walked Presenting Problem:PT STATES SHE HAS HAD STOMACH CRAMPS AND NO BM FOR A WEEK, DENIES FLATUS. PT STATES STOMACH IS BLOATED AND IS GAINING WEIGHT. PT ALSO C/O OF NAUSEA AND HEAD ACHES. 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 N Clinical Suspician of Infection? N Mental Status: 1 - Regular (Normal Baseline) Sepsis Risk:Low Sepsis Risk Have you (or family members/close friends) recently traveled outside the [place]? N If Yes, where/when: Have you had exposure to infectious disease within the past month? N TB? Other? Specify: Source patient, RN notes reviewed, family, old records Exam Limitations no limitations Comment abd pain with feeling of constipation and is being rx for ibs-c- no fever or other c/o Cardiac Chest Pain Chest pain indicative of cardiac No Timing/Duration this evening Severity moderate ALLERGIES Coded Allergies: Sulfa (Sulfonamide Antibiotics) (Mild, I-RASH 01/22/17) codeine (Mild, I-RASH 01/22/17) diphenhydramine (From BENADRYL) (Mild, 01/22/17) morphine (01/22/17) Home Medications Active Scripts ONDANSETRON HCL (Zofran 4MG Tab) 4 MG PO Q6HP PRN NAUSEA AND VOMITING #40 TAB Prov: 03/22/17 Reported Medications MULTIVITAMIN (One Daily) 1 TAB PO DAILY Linaclotide (Linzess 145MCG) 145 MCG PO DAILY #30 METOCLOPRAMIDE HCL (Metoclopramide 10MG) 10 MG PO W/MEALS&HS Lovastatin 20 MG PO DAILY Omeprazole (Omeprazole 40MG) 40 MG PO BID Cyclobenzaprine Hcl 50 MG PO BID Loratadine 10 MG PO DAILY CHOLECALCIFEROL (VITAMIN D3) (Vitamin D) 50,000 IUNITS PO WEEKLY History Medical History General CAD? No Angina: Yes NH: No Hypertension? No Hyperlipidemia? Yes CHF? No DVT? No PE? No COPD? No Asthma? No Anemia? No GERD? Yes Gastric ulcers? No GI Bleed? No Hernia? Yes Thyroid Problems? No Hypothyroidism? No CVA? No Seizures? No Diabetes? No Renal Insuffiency? No End Stage Renal Disease? No UTI? Yes Stones? No BPH? No GB Disease: Yes Nephritic Syndrome? No Asplenia? No Hepatitis? No Sickle Cell Disease? No Arthritis? Yes Migraines? Yes Cataracts? No Glaucoma? No MRSA? No HIV? No TB? No Anxiety? Yes Depression? No Cancer? No More? 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 Respiratory denies cough, denies shortness of breath, denies wheezing Cardiovascular denies chest pain, denies palpitations, denies syncope Gastrointestinal see HPI, abdominal pain, constipation, denies diarrhea, denies vomiting Genitourinary denies: dysuria, frequency, hesitancy, hematuria. Musculoskeletal denies back pain, denies joint pain, denies joint swelling, denies neck pain Skin denies rash Psychiatric/Neurological denies headache, denies seizure Physical Exam Vital Signs Vital Signs Date Time Temp Pulse Resp B/P Pulse O2 O2 Flow FiO2 Ox Delivery Rate 06/20 1919 98.2 78 20 120/68 97 - WBC >12,000 or <4,000 or 10% bands? 2 or more SIRS Criteria Met? B/P:120/68 MAP:85 Creatinine >2.0? UA output<0.5ml/kg/hr for 2 hrs? Platelet count >100,000? Lactate >2.0mmol/1? INR >1.2 or PTT > than 60 sec? Evidence of Organ Dysfunction? Provider documented clinical suspician of infection? N Sepsis Criteria Count: 1 Sepsis Risk: Low Sepsis Risk General Appearance no apparent distress Eye Exam - bilateral eye PERRL, bilateral eye EOMI Ear, Nose, Throat normal ENT inspection Neck supple Respiratory Status No: respiratory distress. Cardiovascular regular rate/rhythm Peripheral Pulses Pulses normal Yes Gastrointestinal soft, no organomegaly, no pulsatile mass, no guarding, no rebound Extremities normal inspection Strength 4 Upper Ext (L), 4 Upper Ext (R), 4 Lower Ext (L), 4 Lower Ext (R) Neurologic alert, certified nurses' aide II-XII nml as tested, no motor/sensory deficits Reflexes Reflexes normal No Mental status normal mood/affect Skin intact Medical Decision Making LABS/Meds/Orders Pt receiving controlled substance in ED? No Results/Orders Laboratory Tests 06/20/171950: Amylase 54, Lipase 146 06/20/171950: Sodium 142, Potassium 3.8, Chloride 105, Carbon Dioxide 32, BUN 10, Creatinine 0.7, Estimated Creat Clear 192, Estimated GFR (MDRD) 90, Glucose 89, Calcium 8.8 , Total Bilirubin 0.4, AST 18, ALT 19, Alkaline Phosphatase 88, Total Protein 7.2, Albumin 3.4, Globulin 3.8 H, Albumin/Globulin Ratio 0.9 L, WBC 6.2, RBC 4.61, Hgb 13.6, Hct 41.2, MCV 89.4, RDW 12.7, Plt Count 197, MPV 6.5 L, Gran % 67.9, Gran # 4.2, Lymphocytes % 25.6, Monocytes % 4.5, Eosinophils % 1.6, Basophils % 0.4, Lymphocytes # 1.6, Monocytes # 0.3, Eosinophils # 0.1, Basophils # 0.0, PUBS MCHC 33.0, MCH 29.5 06/20/171944: Urine Color YELLOW, Urine Appearance CLEAR, Urine pH 8.0, Ur Specific [place] 1.015, Urine Protein NEGATIVE, Urine Ketones NEGATIVE, Urine Blood NEGATIVE, Urine Nitrate NEGATIVE, Urine Bilirubin NEGATIVE, Urine Urobilinogen 0.2, Ur Leukocyte Esterase NEGATIVE, Urine WBC OCC, Ur Squamous Epith Cells 5-10, Urine Glucose NEGATIVE Current Medication Orders Sig/[place] Start time Last Medication Dose Route Stop Time Status Admin Sodium Chloride 10 ML PRN PRN 06/20 1930 AC IV 06/21 1925 Orders Procedure Date/time Status DIET-NOTHING BY MOUTH 06/[address] ABD & PELVIS W/O CONTRAST 06/20 1929 Active LIPASE 06/20 1928 Complete AMYLASE 06/[address] ABD/PELVIS REQ 06/20 1926 Complete IV SALINE LOCK 06/20 1926 Active URINALYSIS/COMPLETE 06/20 1926 Complete URINE 06/20 1926 Complete CBC WITH AUTO DIFF 06/20 1926 Complete CHEM 12 PROFILE 06/20 1926 Complete XRAY/CT/US XRAY/CT/US CT abdomen, pelvis CT interpretation by discussed w/radiologist Time results known: 2116 CT Results normal/NAD Departure Departure Time of Disposition 2116 Disposition DC Home or Self Care(routine) Clinical Impression Primary Impression: Abdominal pain Qualifiers: Abdominal location: generalized Qualified Code: R10.84 - Generalized abdominal pain Condition STABLE Referrals Evon Gonzales APRN (Family) Patient Instructions DI for Constipation Additional Instructions fluids and call your pcp in am Discharge Counseling Counseled pt/family regarding diagnosis, test results, medications/RX, follow up needs ED Critical Care Critical Care No at 2123
[2017-06-20 22:12] VITALS: BP 140/83
--- NOTE | 2017-06-22 10:02 | RADIOLOGY REPORT PS360 ---
CT ABD PELVIS W/O CONTRAST COMPARISON: CT scan abdomen pelvis 07/13/2016 HISTORY: Abdominal distention, symptoms of constipation, abdominal pain TECHNIQUE: Multiple axial scans obtained from the hemidiaphragms the pelvic floor and were performed with without IV or oral contrast. Sagittal coronal reformats were evaluated as well. FINDINGS: The lower lung nichols are clear. There are postsurgical changes of the stomach from previous gastric sleeve procedure. There is a small hiatal hernia. The liver and spleen and pancreas appear normal. There has been a previous cholecystectomy. The adrenal glands are normal. The kidneys are normal in size and there are tiny nonobstructing calculus in each kidney. Small bowel is normal. The appendix is normal in size and retrocecal in location. There is a moderate amount stool in ascending and descending colon. There are bilateral tubal ligation clips. The uterus is normal size and in the midline. There may be a small left ovarian cyst. Urinary bladder is decompressed. IMPRESSION: No acute abdominal or pelvic pathology identified, I agree with the [facility] report
[2017-06-22] MEDS ORDERED: NYSTATIN SUSPEN60 ML PO (15:32)
== END 2017-06-20 22:13 | disposition home or self-care (01) ==
LOC: ER 19:10
PROVIDERS: Emergency Medicine
DX: R10.84 Generalized abdominal pain (principal); K21.9 Gastro-esophageal reflux disease without esophagitis

== ENCOUNTER 2017-06-30 22:57 | Emergency (ER) | payer MEDICAID ==
[~2017-06-30] VITALS: Ht 170.2 cm; Wt 117.9 kg
[~2017-06-30 22:57] MED LIST changes: +NYSTATIN SUSPEN60 ML PO
[2017-06-30] MEDS ORDERED: KEFLEX 500MG.500 MG PO (23:08)
--- NOTE | 2017-06-30 23:19 | Emergency Room Report ---
History of Present Illness Time Seen by MD Darby Presenting Problem in Triage Pt arrived:Walked Presenting Problem:congestion and body aches for a week, worsened three days ago. is on keflex. 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 N Clinical Suspician of Infection? N Mental Status: 1 - Regular (Normal Baseline) Sepsis Risk:Low Sepsis Risk Have you (or family members/close friends) recently traveled outside the [place]? N If Yes, where/when: Have you had exposure to infectious disease within the past month? TB? Other? Specify: Source patient, RN notes reviewed, old records Exam Limitations no limitations Comment pt with recent bronchial illness and finished abx and still with congestion - no fever or hemoptysis Cardiac Chest Pain Chest pain indicative of cardiac No Timing/Duration this evening Severity moderate ALLERGIES Coded Allergies: Sulfa (Sulfonamide Antibiotics) (Mild, I-RASH 01/22/17) codeine (Mild, I-RASH 01/22/17) diphenhydramine (From BENADRYL) (Mild, 01/22/17) morphine (01/22/17) Home Medications Active Scripts ONDANSETRON HCL (Zofran 4MG Tab) 4 MG PO Q6HP PRN NAUSEA AND VOMITING #40 TAB Prov: 03/22/17 Reported Medications MULTIVITAMIN (One Daily) 1 TAB PO DAILY Linaclotide (Linzess 145MCG) 145 MCG PO DAILY #30 Lovastatin 20 MG PO DAILY CEPHALEXIN (Keflex 500MG Capsule) 500 MG PO BID #30 Omeprazole (Omeprazole 40MG) 40 MG PO BID Cyclobenzaprine Hcl 50 MG PO BID Loratadine 10 MG PO DAILY CHOLECALCIFEROL (VITAMIN D3) (Vitamin D) 50,000 IUNITS PO WEEKLY History Medical History General CAD? No Angina: Yes [place]: No Hypertension? No Hyperlipidemia? Yes CHF? No DVT? No PE? No COPD? No Asthma? No Anemia? No GERD? Yes Gastric ulcers? No GI Bleed? No Hernia? Yes Thyroid Problems? No Hypothyroidism? No CVA? No Seizures? No Diabetes? No Renal Insuffiency? No End Stage Renal Disease? No UTI? Yes Stones? No BPH? No GB Disease: Yes Nephritic Syndrome? No Asplenia? No Hepatitis? No Sickle Cell Disease? No Arthritis? Yes Migraines? Yes Cataracts? No Glaucoma? No MRSA? No HIV? No TB? No Anxiety? Yes Depression? No Cancer? No More? 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 Respiratory cough, shortness of breath, denies wheezing Cardiovascular see HPI, denies chest pain, denies palpitations, denies syncope, other Gastrointestinal denies abdominal pain, denies diarrhea, denies vomiting Genitourinary denies: dysuria, frequency, hesitancy, hematuria. Musculoskeletal denies back pain, denies joint pain, denies joint swelling, denies neck pain Skin denies rash Psychiatric/Neurological denies headache, denies seizure Physical Exam Vital Signs Vital Signs Date Time Temp Pulse Resp B/P Pulse O2 O2 Flow FiO2 Ox Delivery Rate 06/30 2301 98.0 71 20 129/74 98 - WBC >12,000 or <4,000 or 10% bands? 2 or more SIRS Criteria Met? B/P:129/74 MAP:92 Creatinine >2.0? UA output<0.5ml/kg/hr for 2 hrs? Platelet count >100,000? Lactate >2.0mmol/1? INR >1.2 or PTT > than 60 sec? Evidence of Organ Dysfunction? Provider documented clinical suspician of infection? N Sepsis Criteria Count: 1 Sepsis Risk: Low Sepsis Risk General Appearance no apparent distress Eye Exam - bilateral eye PERRL, bilateral eye EOMI Ear, Nose, Throat normal ENT inspection Neck supple Respiratory Status No: respiratory distress. Lung Sounds bilateral: lungs clear. Cardiovascular regular rate/rhythm, no gallop, no JVD, no murmur, no rub Peripheral Pulses Pulses normal Yes Gastrointestinal soft Extremities normal inspection Strength 4 Upper Ext (L), 4 Upper Ext (R), 4 Lower Ext (L), 4 Lower Ext (R) Neurologic alert, support architect II-XII nml as tested, no motor/sensory deficits Reflexes Reflexes normal No Mental status normal mood/affect Skin no rash cons.w/shingles Medical Decision Making LABS/Meds/Orders Pt receiving controlled substance in ED? No Departure Departure Time of Disposition 5227 Disposition DC Home or Self Care(routine) Clinical Impression Primary Impression: Reactive airway disease Qualifiers: Asthma severity: unspecified severity Asthma complication type: uncomplicated Qualified Code: J45.909 - Unspecified asthma, uncomplicated Condition STABLE Patient Instructions DI for Reactive Airway Disease-Adult Additional Instructions fluids and see pcp for follow up Discharge Counseling Counseled pt/family regarding diagnosis, test results, medications/RX, follow up needs Prescriptions Current Visit Scripts Prednisone (Prednisone 20MG) 20 MG PO BID #10 TAB ED Critical Care Critical Care No at 7851
--- NOTE | 2017-06-30 23:19 | Emergency Room Report ---
History of Present Illness Time Seen by MD Darby Presenting Problem in Triage Pt arrived:Walked Presenting Problem:congestion and body aches for a week, worsened three days ago. is on keflex. Onset of symptoms date/time:06/23/17 or onset unknown for: Treatment Prior to Arrival: [facility]OR Provided by: Sepsis Risk Assessment: Temp: 98.0 B/P: 129/74 MAP: 92 Pulse: 71 Resp: 20 Recent fever? N Clinical Suspician of Infection? N Mental Status: 1 - Regular (Normal Baseline) Sepsis Risk:Low Sepsis Risk Have you (or family members/close friends) recently traveled outside the [place]? N If Yes, where/when: Have you had exposure to infectious disease within the past month? TB? Other? Specify: Source patient, RN notes reviewed, old records Exam Limitations no limitations Comment pt with recent bronchial illness and finished abx and still with congestion - no fever or hemoptysis Cardiac Chest Pain Chest pain indicative of cardiac No Timing/Duration this evening Severity moderate ALLERGIES Coded Allergies: Sulfa (Sulfonamide Antibiotics) (Mild, I-RASH 01/22/17) codeine (Mild, I-RASH 01/22/17) diphenhydramine (From BENADRYL) (Mild, 01/22/17) morphine (01/22/17) Home Medications Active Scripts ONDANSETRON HCL (Zofran 4MG Tab) 4 MG PO Q6HP PRN NAUSEA AND VOMITING #40 TAB Prov: 03/22/17 Reported Medications MULTIVITAMIN (One Daily) 1 TAB PO DAILY Linaclotide (Linzess 145MCG) 145 MCG PO DAILY #30 Lovastatin 20 MG PO DAILY CEPHALEXIN (Keflex 500MG Capsule) 500 MG PO BID #30 Omeprazole (Omeprazole 40MG) 40 MG PO BID Cyclobenzaprine Hcl 50 MG PO BID Loratadine 10 MG PO DAILY CHOLECALCIFEROL (VITAMIN D3) (Vitamin D) 50,000 IUNITS PO WEEKLY History Medical History General CAD? No Angina: Yes IN: No Hypertension? No Hyperlipidemia? Yes CHF? No DVT? No PE? No COPD? No Asthma? No Anemia? No GERD? Yes Gastric ulcers? No GI Bleed? No Hernia? Yes Thyroid Problems? No Hypothyroidism? No CVA? No Seizures? No Diabetes? No Renal Insuffiency? No End Stage Renal Disease? No UTI? Yes Stones? No BPH? No GB Disease: Yes Nephritic Syndrome? No Asplenia? No Hepatitis? No Sickle Cell Disease? No Arthritis? Yes Migraines? Yes Cataracts? No Glaucoma? No MRSA? No HIV? No TB? No Anxiety? Yes Depression? No Cancer? No More? 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 Respiratory cough, shortness of breath, denies wheezing Cardiovascular see HPI, denies chest pain, denies palpitations, denies syncope, other Gastrointestinal denies abdominal pain, denies diarrhea, denies vomiting Genitourinary denies: dysuria, frequency, hesitancy, hematuria. Musculoskeletal denies back pain, denies joint pain, denies joint swelling, denies neck pain Skin denies rash Psychiatric/Neurological denies headache, denies seizure Physical Exam Vital Signs Vital Signs Date Time Temp Pulse Resp B/P Pulse O2 O2 Flow FiO2 Ox Delivery Rate 06/30 2301 98.0 71 20 129/74 98 - WBC >12,000 or <4,000 or 10% bands? 2 or more SIRS Criteria Met? B/P:129/74 MAP:92 Creatinine >2.0? UA output<0.5ml/kg/hr for 2 hrs? Platelet count >100,000? Lactate >2.0mmol/1? INR >1.2 or PTT > than 60 sec? Evidence of Organ Dysfunction? Provider documented clinical suspician of infection? N Sepsis Criteria Count: 1 Sepsis Risk: Low Sepsis Risk General Appearance no apparent distress Eye Exam - bilateral eye PERRL, bilateral eye EOMI Ear, Nose, Throat normal ENT inspection Neck supple Respiratory Status No: respiratory distress. Lung Sounds bilateral: lungs clear. Cardiovascular regular rate/rhythm, no gallop, no JVD, no murmur, no rub Peripheral Pulses Pulses normal Yes Gastrointestinal soft Extremities normal inspection Strength 4 Upper Ext (L), 4 Upper Ext (R), 4 Lower Ext (L), 4 Lower Ext (R) Neurologic alert, swaging machine adjuster II-XII nml as tested, no motor/sensory deficits Reflexes Reflexes normal No Mental status normal mood/affect Skin no rash cons.w/shingles Medical Decision Making LABS/Meds/Orders Pt receiving controlled substance in ED? No Departure Departure Time of Disposition 9046 Disposition DC Home or Self Care(routine) Clinical Impression Primary Impression: Reactive airway disease Qualifiers: Asthma severity: unspecified severity Asthma complication type: uncomplicated Qualified Code: J45.909 - Unspecified asthma, uncomplicated Condition STABLE Patient Instructions DI for Reactive Airway Disease-Adult Additional Instructions fluids and see pcp for follow up Discharge Counseling Counseled pt/family regarding diagnosis, test results, medications/RX, follow up needs Prescriptions Current Visit Scripts Prednisone (Prednisone 20MG) 20 MG PO BID #10 TAB ED Critical Care Critical Care No at 4323
[2017-06-30] MEDS ORDERED: PREDNISONE 20MG20 MG PO (23:21)
--- OUTSIDE RECORDS SUMMARY | 2017-06-30 23:27 | External Medical Summary Rpt ---
Author Author , YENNY RAMON Address Unknown Phone Care Team Providers Care Recreation Facility Manager Name Role Phone ALFARIS MOH, ALFARIS Unavailable Unavailable [facility]available [place]available [place], [facility] [place] YVETTE JURADO MD, PSC, Unavailable Unavailable YVETTE JURADO MD, PSC ARNOLD HUBER, ARNOLD Unavailable Unavailable HUBER ARNOLD HUBER, ARNOLD Unavailable Unavailable HUBER ATKINS TRA, ATKINS Unavailable Unavailable TRA ATKINS TRA, ATKINS Unavailable Unavailable TRA MICHELLE ALI, MICHELLE Unavailable Unavailable ALI [facility] Un[facility] Unavailable [place], [facility] Unavailable Unavailable [facility], [facility] Un[facility], [facility] Unavailable Unavailable OF ABISAI, [facility] CHANEL CHILDRESS Unavailable Unavailable BEINEKE D, BEINEKE D Unavailable Unavailable BEINEKE CARMEN, BEINEKE Unavailable Unavailable CARMEN DUMONT HOW, DUMONT Unavailable Unavailable HOW BESSON, BESSON Unavailable Unavailable BESSON DOMINIQUE, BESSON Unavailable Unavailable DOMINIQUE [facility] Unavailable Unavailable [facility], [facility] BOLIEK KADIE, BOLIEK Unavailable Unavailable KADIE CERRATO, CERRATO Unavailable Unavailable CERRATO ALL, CERRATO ALL Unavailable Unavailable [facility] Unavailable Unavailable [facility] Unavailable Unavailable SERVICE, [facility] Unavailable Unavailable SERVICE, [facility] BUX, BUX Unavailable [...] PHYSICIANS LA FUNES, FUNES Unavailable Unavailable ISELA WEISS JR, JR Unavailable Unavailable ISELA JR KADIE, ISELA Unavailable Unavailable JR KADIE HARLEEN, HARLEEN Unavailable Unavailable HARLEEN ADRIANNA, Unavailable Unavailable HARLEEN ADRIANNA CELI, CELI Unavailable Unavailable CELI PHI, Unavailable Unavailable CELI PHI LOCKHART, LOCKHART Unavailable Unavailable DUFF, DUFF Unavailable Unavailable FALLUJI NACHO, FALLUJI Unavailable Unavailable NACHO FEEBACK, FEEBACK Unavailable Unavailable ARSLAN, ARSLAN Unavailable Unavailable ARSLAN OFELIA, Unavailable Unavailable ARSLAN OFELIA JR СВЕТЛАНА, СВЕТЛАНА, Unavailable Unavailable JR SOTOMAYOR, JR ELZ, Unavailable Unavailable SOTOMAYOR, JR ELZ ANKUR, ANKUR Unavailable Unavailable ANKUR BRYCE, ANKUR Unavailable Unavailable BRYCE ANKUR BRYCE, ANKUR Unavailable Unavailable BRYCE ANKUR, BK S, Unavailable Unavailable ANKUR, BK S [facility] Unavailable Unavailable [facility], [facility] Unavailable Unavailable HOSPITA, [facility] RODRIGUEZ TRI, RODRIGUEZ TRI Unavailable Unavailable ANDREWS RHO, ANDREWS Unavailable Unavailable RHO [facility] Unavailable Unavailable [place], [facility] Unavailable Unavailable INC, [facility] Unavailable Unavailable HOSPITAL P, [facility] BOYER CHRISTEL, BOYER CHRISTEL Unavailable Unavailable BOYER CHRISTEL, BOYER CHRISTEL Unavailable Unavailable [facility], Unavailable Unavailable [facility] JAQUEZ, JAQUEZ Unavailable Unavailable VAUGHN TERA, VAUGHN Unavailable Unavailable TERA ADAMS, ADAMS Unavailable Unavailable ILUYOMADE ROT, Unavailable Unavailable ILUYOMADE ROT FELICIA DUARTE Unavailable Unavailable [facility] Unavailable Unavailable GROUP PS, [facility] Unavailable Unavailable [facility], [facility] Unavailable Unavailable MEDICAL G, [facility] G ELYSSA BURNETT, [...] JR DW[facility] Unavailable Unavailable SPECIALISTS,, [facility], [facility] Unavailable Unavailable INTERNAL MED, [facility] BRITTNY, BRITTNY Unavailable Unavailable BRITTNY [...] SOTINGEANU SOTINGEANU CARMEN, Unavailable Unavailable SOTINGEANU CARMEN [facility] Unavailable Unavailable [facility], [facility] Unavailable Unavailable [facility], [facility] STROUB, STROUB Unavailable Unavailable [facility] Unavailable Unavailable [address]591, [facility] WALK[facility] FOR, WALKER Unavailable Unavailable [facility] Unavailable Unavailable DEPT [facility] Unavailable [facility]available DEPT [facility] JAZZ SANCHEZ, SANCHEZ Unavailable Unavailable SANCHEZ MICHELLE, SANCHEZ MICHELLE Unavailable Unavailable WELLS ELLEN, HORTENCIA ELLEN Unavailable Unavailable [facility] SHA, [facility] Unavailable Unavailable ROSENTHAL MAR, ROSENTHAL MAR Unavailable Unavailable SARAH KADIE, SARAH KADIE Unavailable Unavailable Purpose Continuity of Care Document - 01-04-2009 through 2016 Problems Code Diagnosis DOS Provider Status R079 CHEST PAIN 06-04-2017 [facility] UNSPECIFIED [facility] INTERNAL MED A836COP UNS ADVERS 06-01-2017 [facility] EFFECT PHYSICIANS, DRUG/MEDICA PLLC MENT INITIAL ENCNTR K219 GASTRO-ESOP 05-19-2017 [facility] H RE[facility]UX PHYS SURG DISEASE CTR WITHOUT ESOPHAGITIS R1310 DYSPHAGIA 05-19-2017 [facility] UNSPECIFIED PHYS SURG CTR Z9884 BARIATRIC 05-19-2017 [facility] SURGERY PH[facility] SURG STATUS CTR J069 ACUTE UPPER 05-05-2017 [facility]ATORY INC INFECTION UNSPECIFIED R072 PRECORDIAL 05-05-2017 [facility] , E785 HYPERLIPIDE 05-04-2017 [facility] UNSPECIFIED HOSPITAL P R0789 OTHER CHEST 05-04-2017 [facility] Z809 FAMILY 05-04-2017 [facility] HISTORY OF [facility] MALIGNANT INC NEOPLASM UNSPECIFIED Z8249 FAMILY HX 05-04-2017 [place] ISCHEMIC [facility] HRT DZ OT HOSPITAL P DZ CIRC SYSTEM Z833 FAMILY 05-04-2017 [place] P MELLITUS Z85669 ENCOUNTER 04-30-2017 [facility] AL CARIOVASCUL AR EXAM I75882 ENCOUNTER 04-30-2017 [facility] LABORATORY EXAM B977 PAPILLOMAVI 04-29-2017 [facility], [facility] OF DZ CLASSIFIED ELSEWHERE E7800 PURE 04-29-2017 [facility] HYPERCHOLES [facility]LEY TEROLEMIA INTERNAL UNSPECIFIED MED J309 ALLERGIC 04-29-2017 [facility] RHINITIS VAL[facility] UNSPECIFIED INTERNAL MED M797 FIBROMYALGI 04-29-2017 [facility] A [facility] INTERNAL MED N870 MILD 04-29-2017 [facility], [facility] DYSPLASIA Y09555 ATYP SQ 04-29-2017 [facility] CELLS UNDET PHYSICIANS GROUP SIGNIFICANC E CYTOL SMER CERV D69987 CERV HIGH 04-29-2017 [facility] RSK HUMAN PHYSICIANS PAPILLOMAVI GROUP RAJ DNA TEST POS 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 04-10-2017 [facility] ESOPHAGUS [place] H15257 DECREASED 04-09-2017 [place] WHITE BLOOD [facility] CELL COUNT [facility] P UNSPECIFIED K449 DIAPHRAGMAT 04-08-2017 [facility] IC [facility] W/O MEDICAL OBSTRUCTION GROUP OR GANGRENE R110 NAUSEA 04-08-2017 [facility] R1319 OTHER 04-08-2017 [facility] DYSPHAGIA [facility] S31675 SPONDYLOSIS 04-07-2017 YVETTE JURADO, W/O , PSC MYELOPATH/R ADICULOPATH Y LUMB RGN M479 SPONDYLOSIS 04-07-2017 [facility] UNSPECIFIED INC 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-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, PSC RAL DISC DEGEN LUMBAR REGION R202 PARESTHESIA 04-07-2017 [place] OF SKIN JASPER INTERNAL MED J320 CHRONIC 04-02-2017 [place] [facility] SINUSITIS INC R350 FREQUENCY 03-27-2017 [facility] MICTURITION [facility] P R3915 URGENCY OF 03-27-2017 [place] URINATION [facility] P R200 ANESTHESIA 03-25-2017 [place] OF SKIN MEDICAL IMAGING ASS R42 DIZZINESS 03-25-2017 [place] AND MEDICAL GIDDINESS IMAGING ASS R51 HEADACHE 03-25-2017 [facility] HOSP INC D709 NEUTROPENIA 03-24-2017 [facility] P [id number] ADVERSE EFF 03-22-2017 [facility] PHYSICIANS, GLUCOCORTIC PLLC DS SYNTH ANALOG INIT ENC W09233P ADVERS EFF 03-22-2017 [place] OT RX MEDS MEM [facility] BIO INC SUBSTANCES INIT ENC G00829 OTHER 03-21-2017 [place] SPONDYLOSIS [facility] LUMBAR INC REGION M5116 INTERVERTEB 03-21-2017 [place] RAL DISC [facility] D/O INC W/RADICULOP ATHY LUMB RGN R42253 ENCOUNTER 03-19-2017 [facility], STAFF FIELD ENGINEER EXAM LLC GENERAL RTN W/ABNORMAL FIND Z25039 ENCOUNTER 03-19-2017 [facility] STAFF FIELD ENGINEER EXAM PHYSICIANS GENERAL RTN GROUP W/O ABNORMAL FIND H6982 OTHER SPEC 03-13-2017 [facility] DISORDERS PHYSICIANS EUSTACHIAN GROUP TUBE LT EAR 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[facility] UNI LT EAR PHYSICIANS UNRESTIRCT GROUP CONTRALAT SIDE R300 DYSURIA 03-12-2017 [facility] M4726 OT 03-03-2017 [facility] SPONDYLOSIS [facility] INC W/RADICULOP ATHY LUMBAR REGION N390 URINARY 03-03-2017 [facility] TRACT [facility] INFECTION INC SITE NOT SPECIFIED R911 SOLITARY 02-27-2017 [place] PULMONARY MEDICAL NODULE IMAGING ASS Z09 ENC F/U 02-27-2017 [place] EXAM AFTR MEDICAL CMPL TX OTH IMAGING ASS THAN MALIG NEOPLSM E669 OBESITY 02-25-2017 [facility] UNSPECIFIED PHYSICIANS GROUP I119 HYPERTENSIV 02-25-2017 [facility] E HEART PHYSICIANS DISEASE GROUP WITHOUT HEART FAILURE R0600 DYSPNEA 02-25-2017 [facility] UNSPECIFIED PHYSICIANS GROUP T53942 PAIN IN 02-18-2017 [facility] LEFT [facility] SHOULDER INC M5440 LUMBAGO 02-18-2017 [facility] WITH [facility] SCIATICA INC UNSPECIFIED SIDE J310 CHRONIC 02-17-2017 [facility] RHINITIS PHYSICIANS GROUP J329 CHRONIC 02-17-2017 [facility] SINUSITIS PHYSICIANS UNSPECIFIED GROUP J342 DEVIATED 02-17-2017 [facility] NASAL PHYSICIANS SEPTUM GROUP M5416 RADICULOPAT 02-17-2017 [facility] HY LUMBAR [facility] REGION INC M545 LOW BACK 02-17-2017 YVETTE JURADO PAIN , PSC K5900 CONSTIPATIO 02-14-2017 [place] N MEDICAL UNSPECIFIED IMAGING ASS I998 OTHER 02-11-2017 [facility] DISORDER OF [facility] INC CIRCULATORY SYSTEM R0602 SHORTNESS 02-11-2017 [facility] OF BREATH [facility] INC G8929 OTHER 02-10-2017 [place] CHRONIC [facility] PAIN INTERNAL MED R002 PALPITATION 01-31-2017 [facility] S PHYSICIANS GROUP R5383 OTHER 01-31-2017 [facility] FATIGUE PHYSICIANS GROUP M792 NEURALGIA 01-27-2017 [place] AND VALLEY NEURITIS INTERNAL UNSPECIFIED MED I10 ESSENTIAL 01-26-2017 [facility] PRIMARY [facility] HYPERTENSIO INC N M542 CERVICALGIA 01-26-2017 [facility] INC [id number] SPONDYLOSIS 01-22-2017 [place] W/O MEDICAL MYELOPATH/R IMAGING ASS ADICULOPATH Y CERV RGN R473XSN STRAIN 01-22-2017 [facility] MUSCLE FASC PHYSICIANS, & TENDON PLLC NECK LEVL INIT ENC E559 VITAMIN D 01-21-2017 [facility] DEFICIENCY [facility] UNSPECIFIED INC [id number] STRAIN 01-16-2017 [facility] MUSCLE & PHYSICIANS, TENDON UNS PLLC WALL THORAX INIT ENC T24950 OTHER LONG 01-11-2017 [facility] DRUG THERAPY Z882 ALLERGY 01-11-2017 [facility] S STATUS Z886 ALLERGY 01-11-2017 [facility] AGENT STATUS Z888 ALLERGY 01-11-2017 [facility] STATUS OTH [facility] RX MEDS & HOSPITAL BIOLOG [facility] STS H9203 OTALGIA 01-10-2017 [facility] BILATERAL [facility] INC I209 ANGINA 01-10-2017 [facility] PECTORIS [facility] UNSPECIFIED INC R071 CHEST PAIN 01-07-[address] [place] [address] [facility] INTERNAL MED Z720 TOBACCO USE 01-04-2017 [facility] INC Q52328 MUSCLE 12-25-2016 [facility] SPASM OF MEM [facility] BACK INC R1013 EPIGASTRIC 12-25-2016 [place] PAIN JASPER INTERNAL MED R4702 DYSPHASIA 12-25-2016 [place] JASPER INTERNAL MED B078 OTHER VIRAL 12-23-2016 [facility] WARTS K30 FUNCTIONAL 12-23-2016 [facility] DYSPEPSIA [facility] [place] L218 OTHER 12-23-2016 [facility] SEBORRHEIC DERMATITIS L538 OTHER 12-23-2016 [facility] SPECIFIED ERYTHEMATOU S CONDITIONS R208 OTHER 12-23-2016 [facility] DISTURBANCE S OF SKIN SENSATION R238 OTHER SKIN 12-23-2016 [facility] CHANGES K5903 DRUG 12-17-2016 [facility] INDUCED [facility] CONSTIPATIO INC N [id number] ADVERSE 12-17-2016 [facility] EFFECT [facility] OTHER INC OPIOIDS INITIAL ENCOUNTER K910 VOMITING 12-12-2016 [facility] FOLLOWING [facility] GASTROINTES INC TINAL SURGERY R600 LOCALIZED 12-12-2016 [facility] EDEMA PHYSICIANS, PLLC R609 EDEMA 12-12-2016 [place] UNSPECIFIED MEM HOS[facility] INC J28450 OTHER 12-12-2016 [place] SPECIFIED MEDICAL POSTPROCEDU IMAGING ASS [facility] STATES E6601 MORBID 12-11-2016 [facility] SEVERE HEALTH OBESITY DUE MONALISA TO EXCESS CALORIES N393 STRESS 12-11-2016 [facility] INCONTINENC HEALTH E FEMALE MONALISA MALE Z903 ACQUIRED 12-11-2016 [facility] ABSENCE OF HEALTH STOMACH MONALISA M56827 ENCOUNTER 12-05-2016 [facility] FOR OTHER HEALTH PREPROCEDUR MEDICAL AL GROUP EXAMINATION K210 GASTRO-ESOP 11-22-2016 [facility] HAGEAL PHYSICIANS, REFLUX PLLC DISEASE W/ ESOPHAGITIS K625 HEMORRHAGE 11-19-2016 [place] OF ANUS AND VALLEY RECTUM INTERNAL MED M546 PAIN IN 11-08-2016 [facility] THORACIC PHYSICIANS, SPINE PLLC J25204 PAIN IN 10-14-2016 [place] UNSPECIFIED MEDICAL HIP IMAGING ASS M533 SACROCOCCYG 10-14-2016 [place] EAL MEDICAL DISORDERS IMAGING ASS NEC R622WDE CONTUSION 10-14-2016 [facility] LOWER BACK PHYSICIANS, & PELVIS PLLC INITIAL ENCOUNTER L4189CW UNSPECIFIED 10-14-2016 [place] INJURY MEDICAL LOWER BACK IMAGING ASS INITIAL ENCOUNTER S7762LM UNSPECIFIED 10-14-2016 [place] INJURY OF MEDICAL PELVIS IMAGING ASS INITIAL ENCOUNTER H3581 RETINAL 10-11-2016 [facility] ANG EDEMA R040 EPISTAXIS 10-10-2016 [place] JASPER INTERNAL MED E6609 OTHER 10-08-2016 [facility] OBESITY DUE BARIATRIC TO EXCESS SURGICAL CALORIES R109 UNSPECIFIED 10-08-2016 [facility] ABDOMINAL BARIATRIC PAIN SURGICAL J3489 OTHER 10-06-2016 [facility] SPECIFIED PHYSICIANS, DISORDERS PLLC NOSE AND NASAL SINUSES R05 COUGH 10-06-2016 [facility] [place] [facility] R0981 NASAL 10-06-2016 [place] CONGESTION MEDICAL IMAGING ASS A6004 HERPESVIRAL 09-27-2016 [facility] PHYSICIANS VULVOVAGINI GROUP TIS N760 ACUTE 09-27-2016 [facility] VAGINITIS PHYSICIANS GROUP P608S2X CONCUSSION 09-21-2016 [facility] WITHOUT LOC [facility] INITIAL INC ENCOUNTER [id number] UNSPECIFIED 09-21-2016 [place] INJURY OF MEDICAL HEAD IMAGING ASS INITIAL ENCOUNTER H6903 PATULOUS 09-19-2016 [facility] JARON EUSTACHIAN TUBE BILATERAL D34324 UNSPECIFIED 09-18-2016 [facility] PHYSICIANS OBSTRUCTION GROUP EUSTACHIAN TUBE BILAT R590 LOCALIZED 09-04-2016 [facility] LYMPH [facility] P Z6834 BODY MASS 09-04-2016 [facility] INDEX BMI HEALTH 34.0-34.9 MEDICAL ADULT GROUP K5909 OTHER 09-03-2016 [facility] CONST[facility]ATIO GROUND N FAMILY CLINI R112 NAUSEA WITH 09-03-2016 [facility] VOMITING GROUND UNSPECIFIED FAMILY CLINI R748 ABNORMAL 09-03-2016 [facility] LEVELS OF GROUND OTHER SERUM FAMILY ENZYMES CLINI Z111 ENCOUNTER 09-02-2016 [facility] DEPT RESPIRATORY JAZZ TUBERCULOSI S M549 DORSALGIA 09-01-2016 [facility] UNSPECIFIED PHYSICIANS, PLL R197 DIARRHEA 09-01-2016 [facility] UNSPECIFIED PHYSICIANS, [facility] [id number] ADVERSE 09-01-2016 [facility] P SRI INITIAL ENCOUNTER O28775 UNS PLACE 09-01-2016 [place] UNS NON [facility] P PLACE OF OCCUR EXT R195 OTHER FECAL 08-30-2016 [facility] HOSP ABNORMALITI INC ES Z202 CONTACT 08-30-2016 [facility] WITH DISTRICT EXPOSURE [facility] DEPT INFECT JAZZ SEXUAL MODE TRANSMS Z23 ENCOUNTER 08-30-2016 [facility] FOR DISTRICT IMMUNIZATIO [facility] DEPT N JAZZ R5381 OTHER 08-29-2016 [facility] MALAISE PHYSICIANS GROUP R9431 ABNORMAL 08-29-2016 [facility] ELECTROCARD PHYSICIANS IOGRAM GROUP T75174 LYMPHOCYTOP 08-21-2016 [facility] ENIA [facility] INC J3089 OTHER 08-21-2016 [facility] RHINITIS [place] J4520 MILD 08-21-2016 [facility] INTERMITTEN PARTNERS OF T ASTHMA [place] UNCOMPLICAT ED X042UOG OTHER 08-21-2016 [facility] ADVERSE [facility] OF FOOD [place] REACTIONS NEC SUBSEQUENT ENC M791 MYALGIA 08-17-2016 [facility] PHYSICIANS, [facility] M898X9 OTHER 08-12-2016 [place] SPECIFIED MEDICAL DISORDERS IMAGING ASS BONE UNSPECIFIED SITE R599 ENLARGED 08-12-2016 [place] [facility] INC UNSPECIFIED R1314 DYSPHAGIA 08-10-2016 [facility] PHARYNGOESO PHYSICIANS, PHAGEAL [facility] PHASE R5382 CHRONIC 08-07-2016 [facility] FATIGUE [facility] UNSPECIFIED INC J301 ALLERGIC 08-05-2016 [facility] RHINITIS PARTNERS OF DUE TO [place] POLLEN J3081 ALLERG 08-05-2016 [facility] RHINITIS PARTN[facility] OF D/T ANIMAL [place] CAT DOG HAIR & DANDER R591 GENERALIZED 08-05-2016 [place] ENLARGED [facility] P I208 OTHER FORMS 08-02-2016 [facility] P E70298 PAIN IN 08-02-2016 [place] RIGHT KNEE MEDICAL IMAGING ASS R55 SYNCOPE AND 08-02-2016 [facility] TEJADA PHYSICIANS, PLLC P774OZL UNSPECIFIED 08-02-2016 [place] INJURY OF MEDICAL NECK IMAGING ASS INITIAL ENCOUNTER M7677PF UNS INJURY 08-02-2016 [facility] LOWER MEDICAL LEG INITIAL IMAGING ASS ENCOUNTER N281 CYST OF 08-01-2016 [facility] P C37320 OTHER 07-31-2016 [facility]HMA EQUIPMENT INC R209 UNSPECIFIED 07-29-2016 [facility] PHYSICIANS, DISTURBANCE PLLC S OF SKIN SENSATION K589 IRRITABLE 07-24-2016 [facility] BOWEL PHYSICIANS SYNDROME GROUP WITHOUT DIARRHEA R102 PELVIC AND 07-24-2016 [facility] PERINEAL PHYSICIANS PAIN GROUP N831 CORPUS 07-22-2016 [facility] LUTEUM CYST PHYSICIANS GROUP N920 EXCESS & 07-22-2016 [facility] FREQUENT PHYSICIANS MENSTRUATIO GROUP N W/REGULAR CYCLE S00738N STRAIN UNS 07-22-2016 [facility] MUSCLE FASC PHYSICIANS, TEND THIGH PLLC RT INITIAL ENC Z7251 HIGH RISK 07-22-2016 [place] [facility]HAVIOR INC R12 HEARTBURN 07-18-2016 [facility] H[facility]9 OTHER 07-17-2016 [facility] SPECIFIED PHYSICIANS DISORDERS GROUP OF EAR UNSPECIFIED EAR J302 OTHER 07-17-2016 [facility] SEASONAL PHYSICIANS ALLERGIC GROUP RHINITIS G3272OL LACERATION 07-13-2016 [facility] W/O FOREIGN PHYSICIANS, BODY SCALP PLLC INITIAL ENC G1684KF SPRAIN 07-13-2016 [facility] UNSPECIFIED PHYSICIANS, SITE LT PLLC KNEE INITIAL ENCNTR R6889 OTHER 07-10-2016 [facility] SYMPTOMS HOSPITA AND SIGNS E780 PURE 07-09-2016 [facility] HYPERCHOLES BARIATRIC TEROLEMIA SURGICAL E876 HYPOKALEMIA 07-09-2016 [facility] P Z1231 ENCOUNTER 07-08-2016 [place] SCREENING MEDICAL MAMMO MALIG IMAGING ASS NEOPLASM BREAST H6990 UNSPECIFIED 07-07-2016 [facility] T[facility] PHYS PSC DISORDER UNS EAR H938X3 OTHER 07-07-2016 [facility] SPECIFIED HEALTH DISORDERS [place] OF EAR BILATERAL M5432 SCIATICA 07-07-2016 [facility] LEFT SIDE EMERGENCY PHYS PSC R1010 UPPER 07-05-2016 [facility] ABDOMINAL PHYSICIANS, PAIN PLLC UNSPECIFIED R1084 GENERALIZED 06-29-2016 [facility] ABDOMINAL PHYSICIANS, PAIN PLLC I880 NONSPECIFIC 06-27-2016 [facility] MESENTERIC PHYSICIANS, PLLC LYMPHADENIT IS R100 ACUTE 06-27-2016 [facility] ABDOMEN AMBULANCE SERVICE R1031 RIGHT LOWER 06-26-2016 [facility] PAIN PHYS Q43062 RIGHT LOWER 06-26-2016 [facility] ABDOMINAL HOSPITA TENDERNESS N200 CALCULUS OF 06-24-2016 [place] KIDNEY MEDICAL IMAGING ASS 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 06-11-2016 [...] EXPS TO NONIONIZING RAD R9439 ABNORMAL 04-08-2016 [facility]ARD[facility]AS[facility] MEDICAL LR FUNCTION GROUP STUDY I340 [...] VALLEY IES NOT INTERNAL ELSEWHERE MED CLASSIFIED 75617 UNSPECIFIED 07-11-2015 [facility] VIRAL WARTS 2167 [...] SKIN 7020 ACTINIC 07-11-2015 [facility] KERATOSIS 60881 INFLAMED 07-11-2015 [facility] SEBORRHEIC KERATOSIS V700 ROUTINE 06-27-2015 [facility] DEPT [email or web address] CARE FACL 75295 MORBID 06-20-2015 [facility] OBESITY BARIATRIC SURGICAL 67105 PAIN IN 06-20-2015 [facility] JOINT, SITE [facility] UNSPECIFIED 7823 EDEMA 06-20-2015 [facility] 61854 OTHER 06-20-2015 [facility] DYSPNEA AND [facility] RESPIRATORY ABNORMALITI ES 7871 HEARTBURN 06-20-2015 [facility] 7904 NONSPEC 06-20-2015 [facility] ELEVATION BARIATRIC OF LEVELS SURGICAL OF TRANSAMINAS E/LDH V4586 BARIATRIC 06-20-2015 [facility] SURGERY BARIATRIC STATUS SURGICAL V7612 OTHER 06-19-2015 [place] SCREENING MEDICAL MAMMOGRAM IMAGING ASS 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 MED 2689 UNSPECIFIED 06-12-2015 [facility] VITAMIN D VAL[facility] DEFICIENCY INTERNAL MED 5718 OTHER 06-12-2015 [facility] CHRONIC VAL[facility] NONALCOHOLI INTERNAL C LIVER MED DISEASE 7905 OTHER 06-12-2015 [facility] NONSPECIFIC VAL[facility] ABNORMAL INTERNAL SERUM MED ENZYME LEVELS 20672 UNSPEC 05-09-2015 [facility] DISORDERS PHYSICIANS [facility]&TEND GROUP ONS SHOULDER REGION 7262 OTHER 05-09-2015 [facility] AFFECTIONS PHYSICIANS OF SHOULDER GROUP REGION NEC 98162 OBESITY, 05-04-2015 [facility] UNSPECIFIED OLOGY AND HEPATOL 3674 PRESBYOPIA 04-28-2015 [facility] 79869 CHEST PAIN 04-28-2015 [facility] 42284 ABDOMINAL 04-25-2015 [facility] PAIN, COMMUNTIY UNSPECIFIED HOSPITA SITE 4019 UNSPECIFIED 04-16-2015 [place] [facility] HYPERTENSIO INC N 5990 URINARY 04-16-2015 [facility], INFECTION [facility] SITE NOT SPECIFIED 7948 NONSPECIFIC 04-16-2015 [place] [facility] RESULTS INC LIVR FUNCTION STUDY 5739 UNSPECIFIED 04-14-2015 [facility] [place] DISORDER RADIOLOGY OF LIVER 7906 OTHER 04-14-2015 [facility] ABNORMAL COMMUNTIY BLOOD HOSPITA CHEMISTRY 5939 UNSPECIFIED 04-06-2015 [place] DISORDER MEDICAL OF KIDNEY IMAGING ASS AND URETER 7891 HEPATOMEGAL 04-06-2015 [facility] Y OLOGY AND HEPATOL V140 PERSONAL 04-05-2015 [place] HISTORY OF [facility] ALLERGY TO HOSPITAL P PENICILLIN 56780 ABDOMINAL 04-03-2015 [facility] PAIN, GENERALIZED 5758 OTHER 04-01-2015 [place] SPECIFIED [facility] DISORDER OF HOSPITAL P GALLBLADDER 23704 OTHER 04-01-2015 [place] SPECIFIED MEDICAL DISORDER OF IMAGING ASS KIDNEY AND URETER 24890 ABDOMINAL 04-01-2015 [facility] PAIN RIGHT MEDICAL UPPER IMAGING ASS QUADRANT 38514 ABDOMINAL 04-01-2015 [place] PAIN, [facility] EPIGASTRIC [facility] P 7295 PAIN IN 03-29-2015 [facility] SOFT COMMUNTIY TISSUES OF HOSPITA LIMB V4589 OTHER 03-29-2015 [facility] POSTSURGICA COMMUNTIY L STATUS HOSPITA OTHER 91619 OTHER 03-24-2015 [facility] MALAISE AND COMMUNTIY FATIGUE HOSPITA V6700 FOLLOW-UP 03-21-2015 [facility] [place] EXAMINATION RADIOLOGY FOLLOWING UNSPEC SURGERY 85931 ESOPHAGEAL 03-20-2015 [place] REFLUX ANESTHESIA GROUP PS 6256 FEMALE 03-20-2015 [facility] STRESS COMMUNTIY INCONTINENC HOSPITA E 57838 PAIN IN 03-20-2015 [facility] JOINT, BARIATRIC MULTIPLE SURGICAL SITES 99698 DIASTASIS 03-20-2015 [facility] OF MUSCLE COMMUNTIY HOSPITA 7892 SPLENOMEGAL 03-20-2015 [facility] Y COMMUNTIY HOSPITA V8543 BODY MASS 03-20-2015 [facility] INDEX COMMUNTIY 50.0-59.9 HOSPITA ADULT 2639 UNSPECIFIED 03-14-2015 [facility] COMMUNTIY PROTEIN-TEA HOSPITA ORIE MALNUTRITIO N 10804 MIGRAINE 03-07-2015 [facility] UNSP W/O BARIATRIC 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 MIGRAINOSUS 82240 OTHER 03-07-2015 [facility] BARIATRIC INCONTINENC SURGICAL E 6929 CONTACT 03-06-2015 DANIEL HUBER DERMATITIS& OTHER ECZEMA DUE UNSPEC CAUSE 6822 CELLULITIS 03-02-2015 [place] AND ABSCESS [facility] P V148 PERSONAL 03-02-2015 [place] HISTORY [facility] ALLERGY [facility] P SPEC MEDICINAL AGTS V571 OTHER 02-22-2015 [place] [facility] THERAPY INC 2724 OTHER AND 02-20-2015 [facility] UNSPECIFIED [facility]TIY HOSPITA HYPERLIPIDE LILIANE 7245 UNSPECIFIED 02-20-2015 [facility] BACKACHE COMMUNTIY HOSPITA V7283 OTHER 02-20-2015 [facility] SPECIFIED COMMUNTIY PRE-OPERATI HOSPITA VE EXAMINATION 2875 UNSPECIFIED 02-15-2015 [facility] P PENIA 7932 NONSPC ABN 02-10-2015 [place] [facility] RAD&OTH [facility] EXAM OTH INTRTHOR ORGN V7282 PRE-OPERATI 02-10-2015 [place] [facility] RESPIRATORY [facility]OUNDATION EXAMINATION 5930 NEPHROPTOSI 02-09-2015 [facility] P 7802 SYNCOPE AND 02-01-2015 [facility] MEDICAL G 4139 OTHER AND 01-18-2015 [facility] P PECTORIS 73929 SHORTNESS 01-18-2015 [facility] MEDICAL IMAGING ASS 28193 OTHER CHEST 01-18-2015 [facility] P 73694 OSTEOARTHRO 12-30-2014 DANIEL Reddy INVLV MX SITES BUT [place] SPEC GEN 66480 PAIN IN 11-09-2014 [place] [facility], MEDICAL SHOULDER IMAGING ASS REGION V5832 ENCOUNTER 11-09-2014 [place] FOR REMOVAL [facility] P 83599 PILAR CYST 11-02-2014 [facility] 58465 UNSPECIFIED 10-06-2014 [facility] INFECTION PHYS IN CCE & UNS SITE 7840 HEADACHE 10-06-2014 [place] [facility] 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 WITHOUT HOSPITA MENTION OF HEMORRHAGE 01002 OTHER SPEC 09-16-2014 [facility] WITHOUT MENTION HEMORRHAGE 13984 DYSPHAGIA 09-16-2014 [place] UNSPECIFIED ANESTHESIA GROUP PS 6869 UNSPEC 08-17-2014 [facility] LOCAL INFECTION SKIN&SUBCUT ANEOUS TISSUE V7284 UNSPECIFIED 08-09-2014 [facility] PRE-OPERATI INC VE EXAMINATION 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 7019 UNSPECIFIED 08-04-2014 [facility] HYPERTROPHI C&ATROPHIC CONDITION SKIN 26548 OTHER 08-04-2014 [facility] SEBORRHEIC KERATOSIS 7851 PALPITATION 08-04-2014 [facility] G V7281 PRE-OPERATI 07-21-2014 [facility] CARDIOV[facility] MEDICAL G LAR EXAMINATION 93601 PAINFUL 07-05-2014 [facility] RESPIRATION V771 SCREENING 05-24-2014 [facility] DIABETES MELLITUS 470 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 4779 ALLERGIC 03-17-2014 [facility] RHINITIS CAUSE UNSPECIFIED 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 [place] [facility]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 E849.8 E849.8 12-31-2013 [place] ACCIDENT IN [facility] E885.9 E885.9 FALL 12-31-2013 [place] [facility], Hospital TRIPPING, OR STUMBLING [facility] V14.0 V14.0 12-31-2013 [place] HX-PENICILL [facility] ALLERGY Hospital V14.1 V14.1 12-31-2013 [place] HX-ANTIBIOT [facility] V01.6 V01.6 01-11-2013 [place] VENEREAL [facility] DIS CONTACT Hospital V0481 NEED 01-06-2009 [facility] PROPHYLACTI HEALTH C CENTRAL VACCINATION BANK ACCT &INOCULATIO N FLU 18412 PAIN IN 01-04-2009 [place] [facility] THIGH 95831 DISPLCMT 01-04-2009 [place] LUMBAR MEDICAL INTERVERT 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 8460 SPRAIN AND 01-04-2009 [employer] LUMBOSACRAL [employer] 8472 LUMBAR 01-04-2009 [place] [facility] STRAIN INC 70604 CONTUSION 01-04-2009 [employer] BACK [employer] 87847 CONTUSION 01-04-2009 [employer] BUTTOCK [employer] E8490 PLACE OF 01-04-2009 [place] OCCURRENCE, MEDICAL HOME IMAGING ASSOCIATES E8859 FALL FROM 01-04-2009 [place] OTHER MEDICAL SLIPPING IMAGING TRIPPING OR ASSOCIATES STUMBLING B34.9 VIRAL INFECTION, UNSPECIFIED G43.909 MIGRAINE, UNSP, NOT INTRACTABLE , WITHOUT STATUS MIGRAINOSUS M25.512 PAIN IN LEFT SHOULDER M79.604 PAIN IN RIGHT LEG N39.0 URINARY TRACT INFECTION, SITE NOT SPECIFIED R07.89 OTHER CHEST PAIN R07.9 CHEST PAIN, UNSPECIFIED R10.9 UNSPECIFIED ABDOMINAL PAIN R11.0 NAUSEA R20.2 PARESTHESIA OF SKIN R20.9 UNSPECIFIED DISTURBANCE S OF SKIN SENSATION R30.0 DYSURIA R51 HEADACHE R53.1 WEAKNESS R94.5 [...] I-RASH Intermediate Clinical Alert Notifications Alert Asthma: non-ICS non-compliance with h/o of SA beta agonist Member has >/= 10 ED visits within the past 365 days Medications Na ND Rx Da Fi Fi Am Da Di Ph RX Ph St me C No te ll ll ou ys ag ar # ys at rm s nt no ma ic us Or Da si cy ia de te s n re d PE 00 07 08 59 1 00 CL Ac RM 47 -1 -0 .0 00 IN ti ET 25 0- 4- 00 00 IC ve HR 24 20 20 43 IN 26 17 17 64 PH 9 30 AR 1% MA CY LO TI ON VE 00 07 08 18 16 00 CL Ac NT 17 -1 -0 .0 00 IN ti OL 30 0- 4- 00 00 IC ve IN 68 20 20 43 22 17 17 64 PH HF 0 67 AR A MA 90 CY MC G IN CARTY LE R MO 27 07 08 30 30 00 CL Ac NT 24 -0 -0 .0 00 IN ti EL 10 7- 4- 00 00 IC ve UK 01 20 20 41 80 17 17 09 PH T 9 31 AR SO MA D CY 10 MG TA BL ET 64 07 08 4. 28 00 CL Ac T 38 -0 -0 00 00 IN ti D2 00 7- 4- 0 00 IC ve 73 20 20 42 1. 70 17 17 35 PH 25 6 24 AR MA MG CY (5 0, 00 0 UN IT ) LO 45 07 08 30 30 00 CL Ac RA 80 -0 -0 .0 00 IN ti TA 20 7- 4- 00 00 IC ve DI 65 20 20 42 NE 08 17 17 35 PH 7 22 AR 10 MA CY MG TA BL ET LO 68 07 08 30 30 00 CL Ac VA 18 -0 -0 .[address] 00 7- 4- 00 00 IC ve AT 46 20 20 43 IN 80 17 17 34 PH 1 26 AR 20 MA CY MG TA BL ET ME 00 07 08 12 30 00 CL Ac TO 09 -0 -0 0. 00 IN ti CL 32 7- 4- 00 00 IC ve OP 20 20 20 0 43 RA 30 17 17 61 PH NV 5 60 AR DE MA CY 10 MG TA BL ET FL 50 07 08 16 30 00 CL Ac UT 38 -0 -0 .0 00 IN ti IC 30 7- 4- 00 00 IC ve 70 20 20 42 ON 01 17 17 79 PH E 6 94 AR MS MA OP CY 50 MC G SP RA Y OX 16 07 08 30 30 00 CL Ac YB 72 -0 -0 .0 00 IN ti UT 90 7- 4- 00 00 IC ve YN 31 20 20 43 IN 80 17 17 09 PH 1 28 AR CL MA CY ER 10 MG TA BL ET BU 16 07 08 90 30 00 CL Ac SP 72 -0 -0 .0 00 IN ti IR 90 8- 4- 00 00 IC ve ON 20 20 20 43 E 20 17 17 63 PH HC 1 08 AR L MA 10 CY MG TA BL ET CY 00 07 08 28 14 00 CL Ac CL 59 -0 -0 .0 00 IN ti OB 13 8- 4- 00 00 IC ve EN 25 20 20 43 ZA 60 17 17 63 PH MS 1 09 AR IN MA E CY 5 MG TA BL ET RI 13 07 08 30 30 00 CL Ac SP 66 -1 -0 .0 00 IN ti ER 80 2- 4- 00 00 IC ve ID 03 20 20 43 ON 66 17 17 39 PH E 0 67 AR 0. MA 5 CY MG TA BL ET VE 68 07 08 30 30 00 CL Ac NL 38 -1 -0 .0 00 IN ti AF 20 2- 4- 00 00 IC ve AX 03 20 20 42 IN 40 17 17 89 PH E 6 94 AR HC MA L CY ER 37 .5 MG CA P OM 00 07 08 60 30 00 CL Ac EP 78 -1 -0 .0 00 IN ti RA 12 2- 4- 00 00 IC ve ZO 23 20 20 42 LE 41 17 17 89 PH [address] MA CY 40 MG CA PS UL E AZ 51 07 08 30 30 00 CL Ac EL 52 -1 -0 .0 00 IN ti 50 2- 4- 00 00 IC ve TI 29 20 20 43 NE 40 17 17 38 PH 3 80 AR 0. MA 1% CY (1 37 MC G) SP RY ME 59 07 08 10 [address] 76 -1 -0 .0 00 IN ti OX 23 2- 4- 00 00 IC ve YP 74 20 20 42 RO 20 17 17 94 PH GE [address] MA ER CY ON E 10 MG TA B RA 00 07 08 60 30 00 CL Ac NI 78 -1 -0 .0 00 IN ti TI 11 2- 4- 00 00 IC ve DI 88 20 20 42 NE 31 17 17 65 PH 0 91 AR 15 MA 0 CY MG TA BL ET LI 00 07 08 30 30 00 CL Ac NZ 45 -1 -0 .0 00 IN ti ES 61 2- 4- 00 00 IC ve S 20 20 20 42 14 13 17 17 47 PH 5 0 82 AR MC MA G CY CA PS UL E GA 45 07 07 90 30 00 [...] MA M CY 25 MG CA P IS 62 06 07 30 30 00 [...] 5 CY MG TA BL ET VE 00 [...] 17 79 PH E 6 94 AR MS MA OP CY 50 MC G SP [...] YL 15 2- 7- 00 01 ve MS 02 20 20 18 AI ED 20 [...] 20 MA CY MG TA BL ET ME 59 05 [...] 43 ZA 60 17 17 25 PH MS 1 00 AR IN MA E CY 5 MG TA BL ET OX 62 05 06 30 30 00 [...] 00 TE ti -C 51 1- 9- 00 01 ve LA 00 20 20 18 AI V 10 17 17 35 D 87 0 20 PH 5- AR 12 MA 5 CY MG #3 TA 93 BL 8 ET MO 27 05 06 30 30 [...] IN ti TA 20 1- 9- 00 IC ve DI 65 20 20 42 NE 08 17 17 35 PH 7 22 AR 10 MA CY MG TA BL ET FL 50 05 06 16 30 00 CL Ac UT 38 -1 -0 .0 00 IN ti IC 30 1- 9 00 IC ve 70 20 20 42 ON 01 17 17 79 PH E 6 94 AR MS MA OP CY 50 MC G SP RA Y BU 00 05 06 90 30 00 CL Ac SP 37 -1 -0 .0 00 IN ti IR 81 1- 00 IC ve ON 15 20 20 42 E 00 17 17 82 PH HC 1 15 AR L MA 10 CY MG TA BL ET RI 13 05 06 30 30 00 CL Ac SP 66 -1 -0 .0 00 IN ti ER 80 1 9 00 IC ve ID 03 20 20 42 ON 66 17 17 35 PH E 0 23 AR 0. MA 5 CY MG TA BL ET LO 61 05 06 30 30 [...] .0 00 IN ti NS 70 1- 6 00 IC ve ET 16 20 20 [...] MG CA PS UL E RA 00 04 05 60 30 00 [...] MA G CY CA PS UL E ME 59 04 05 [address] 76 -2 -1 .0 00 IN ti OX 23 6- 9- 00 00 IC ve YP 74 20 20 42 RO 20 17 17 94 PH GE [address] MA ER CY ON E 10 MG TA B FL 50 04 05 16 30 00 CL Ac UT 38 -1 -1 .0 00 IN ti IC 30 3- 2- 00 00 IC ve 70 20 20 42 ON 01 17 17 79 PH E 6 94 AR MS MA OP CY 50 MC G SP [...] 42 ZA 60 17 17 82 PH MS 1 16 AR IN MA E CY [...] MA 0 CY MG TA BL ET VE 68 [...] 42 ZA 60 17 17 59 PH MS 1 23 AR IN MA E CY 5 MG TA BL ET LO 45 03 [...] D CY 10 MG TA BL ET IS 62 03 [...] 1 70 PH CE AR TA MA NV CY NO PH #3 93 7. 8 5- 32 5 OS 47 03 03 10 10 00 CL Ac EL 78 -0 -3 .0 00 IN ti TA 10 7- 1- 00 00 IC ve NV 47 20 20 42 01 17 17 [...] 0 CY MG CA PS UL E MS 65 03 03 20 5 00 CL Ac OM 16 -0 -3 .0 00 IN ti ET 20 8- 1- 00 00 IC ve CARTY 74 20 20 42 ZI 51 17 17 45 PH NE 0 47 AR MA 12 CY .5 MG TA BL ET 64 02 03 [...] 17 53 PH E 6 48 AR MS MA OP CY 50 MC G SP RA Y RI 13 02 03 30 30 00 CL Ac SP 66 -2 -2 .0 00 IN ti ER 80 4- 4- 00 00 IC ve ID 03 20 20 42 ON 66 17 17 32 PH E 0 44 AR 0. MA 5 CY MG TA BL ET TI 60 03 [...] MG CA PS UL E CY 00 02 03 28 14 00 CL Ac CL 59 -2 -1 .0 00 IN ti OB 13 1- 7- 00 00 IC ve EN 25 20 20 42 ZA 60 17 17 30 PH MS 1 05 AR IN MA E CY [...] CY MG #4 TA 93 BL ET AZ 50 02 03 6. 5 00 RI Ac IT 11 -1 -1 00 00 TE ti HR 10 2- 0- 0 01 ve OM 78 20 20 17 AI YC 76 17 17 07 D IN 6 88 PH AR 25 MA 0 CY MG #3 TA 93 BL 8 ET MS 59 02 03 10 5 00 RI [...] 05 CY % SO ROSS TI ON RA 11 01 02 10 5 00 [...] 17 53 PH E 9 48 AR MS MA OP CY 50 MC G SP RA Y 64 01 02 4. 28 00 CL Ac T 38 -2 -2 00 00 IN ti D2 00 5- 4- 0 00 IC ve 73 20 20 41 1. 70 17 17 47 PH 25 6 11 AR MA MG CY (5 0, 00 0 UN IT ) BU 00 02 02 90 30 00 [...] 42 ZA 81 17 17 08 PH MS 0 66 AR IN MA E CY 10 MG TA BL ET HY 00 01 02 [address] 40 -1 -[address] ti OC 60 8- 7- 00 00 SI ve OD 12 20 20 47 DE ON 40 17 17 29 -A 5 25 PH CE AR TA MA NV CY NO PH OF CY 7. NT [...] MA 75 CY MG TA BL ET 51 12 [...] 12 01 20 10 00 CL Ac MS 46 -2 -2 .0 00 IN ti [...] D CY 10 MG TA BL ET IM 45 12 01 24 24 00 CL Ac IQ 80 -2 -2 .0 00 IN ti UI 20 0- 0- 00 00 IC ve MO 36 20 20 41 D 86 16 17 68 PH 5% 2 09 AR MA CR CY EA M PA CK ET NA 68 12 01 14 7 00 CL Ac MS 46 -1 -2 .0 00 IN ti [...] 17 53 PH E 9 48 AR MS MA OP CY 50 MC G SP RA Y BU 00 02 0 No TA 60 -0 LB 32 7- Lo -A 54 20 ng CE 42 14 er TA 1 NV Ac N- ti CA ve FF 50 [...] 20 20 ZA 70 09 09 PH NV MS 6 AR CH IN MA AE E CY L 10 S MG TA BL ET ME 59 02 02 00 21 6 CL 18 GA Ac TH 74 -1 -2 .0 IN 75 IN ti YL 60 2- 6- 00 IC 10 EY ve MS 00 20 20 ED 10 09 09 PH NV NI 3 AR CH SO MA AE [...] ent ider Refu lity Give sed n TDAP 10-0 115 [facility] No [facility] 7-20 O O VACC 16 DIST DIST INE RICT RICT 7 YRS/ HLTH HLTH > IM DEPT DEPT JAZZ JAZZ IIV3 02-1 141 WILLI No DHS/ 3-20 [place] CO VACC 09 CO HEAL INE HEAL TH SPLI TH CENT T CENT RAL VIRU ER BANK S 0.5 ACCT ML DOSA GE IM USE Vital Signs 12-05-2016 11:40 Name Value Interpretat Reference Comment ion Range Glucose 88 mg/dL 70-100 [facility] 12-31-2013 17:30 Name Value Interpretat Reference Comment [...] Hgb A1c Bld (12-05-2016 11:40) Comment: The [place] [employer] recommends maintenance of Hemoglobin A1C [...] g/dL .5 ed c 11:40 RBC # 12-05-2 4.66 3.89-5. complet Bld 017 10*6/mm 14 ed Auto 11:40 3 WBC 4.70 3.50-10 complet nRBC 017 10*3/mm .80 ed cor # 11:40 3 Bld B-HCG Ur Ql (01-11-2013 17:40) B-HCG 02-18-2 NEGATIV NEG complet Ur Ql 013 E ed 17:40 URINALYSIS/COMPLETE (01-11-2013 17:40) URINE 02-18-2 YELLOW YELLOW complet COLOR 013 ed 17:40 URINE 02-18-2 Sl CLEAR complet APPEARA 013 Cloudy ed NCE 17:40 URINE 02-18-2 NEGATIV NEG complet GLUCOSE 013 E ed - 17:40 DIPSTIC K URINE 02-18-2 NEGATIV NEG complet BILIRUB 013 E ed IN - 17:40 DIPSTIC K URINE 02-18-2 NEGATIV NEG complet KETONE 013 E mg/dL ed 17:40 URINE 02-18-2 1.025 1.005-1 complet SPECIFI 013 UNK .030 ed C 17:40 GRAVITY URINE 02-18-2 1+ NEG complet BLOOD 013 ed 17:40 URINE 02-18-2 6.0 UNK 5.0-8.5 complet PH 013 ed 17:40 URINE 02-18-2 NEGATIV NEG complet PROTEIN 013 E mg/dL ed - 17:40 DIPSTIC K URINE 02-18-2 0.2 NEG complet UROBILI 013 E.U./dL ed NOGEN - 17:40 DIPSTIC K URINE 02-18-2 NEGATIV NEG complet NITRATE 013 E ed - 17:40 DIPSTIC K URINE 02-18-2 TRACE NEG complet LEUK 013 ed ESTERAS 17:40 E URINE 02-18-2 3-5 0 complet RBC 013 rbc/hpf ed 17:40 URINE 02-18-2 3-5 O complet WBC 013 wbc/hpf ed 17:40 URINE 02-18-2 10-20 0-5 complet SQUAMOU 013 #/hpf ed S CELLS 17:40 URINE 02-18-2 1+ O complet BACTERI 013 ed A 17:40 Procedures Procedure DOS Code Location Performer Comment ECG 42409 [facility] ROUTINE 7 PHYSICIAN ECG S, PLLC W/LEAST 12 LDS I&R ONLY EGD 26711 DOMINICK SANCHEZ TRANSORAL 7 HEALTH BIOPSY MEDICAL SINGLE/MU GROUP LTIPLE ECG 30560 [facility] ROUTINE 7 HEART ECG SPECIALIS W/LEAST TS, 12 LDS I&R ONLY ECG 55567 [place] ROUTINE 7 [facility] W/LEAST P 12 LDS I&R ONLY ECG 57755 [place] [facility] ROUTINE 7 [facility] ECG INC INC W/LEAST 12 LDS TRCG ONLY W/O I&[place] [address] [facility] [facility] TROPONIN 7 [facility] QUANTITAT INC INC SABIHA COMPREHEN 40394 [place] [facility] SIVE 7 [facility] METABOLIC INC INC PANEL ECG 85831 [facility] ROUTINE 7 [facility] ECG [facility] W/LEAST 12 LDS TRCG ONLY W/[place] [address] [facility] PICKLESIM SURG 7 [facility] ER JR PATHOLOGY GROSS&BRYCE ROSCOPIC EXAM COLPOSCOP 09625 [facility] HUMPHREY Y CERVIX 7 PHYSICIAN BX CERVIX S GROUP & [place] [address] [facility]RIST[facility] TRACT 7 [facility] UPPER [facility] W/WO DELAYED IMAGES W/[place] [address] [place] [facility] HEAD/BRAI 7 [facility] N W/O INC INC CONTRAST MATERIAL UNCLASSIF J3490 [place] [facility] IED DRUGS 7 [facility] INC INC COMPREHEN 49873 [place] [facility] SIVE 7 [facility] METABOLIC INC INC PANEL GONADOTRO 46940 [place] [facility] PIN 7 [facility] [place] [address] [place] [facility] GAMMAGLOB 7 [facility] ULIN IGA INC INC IGD IGG IGM EACH GONADOTRO 50976 [place] [facility] PIN 7 [facility] FOLLICLE INC INC STIMULATI NG HORMONE LIPID 54910 [place] [facility] PANEL 7 [facility] INC INC BLOOD 51701 [place] [facility] COUNT 7 [facility] COMPLETE INC INC AUTO&AUTO DIFRNTL WBC BLOOD 17181 [place] [facility] COUNT 7 [facility] COMPLETE INC INC AUTO&[place] [address] [place] [facility] INFUSION 7 [facility] THERAPY/P INC INC ROPHYLAXI S /DX 1ST TO 1 [place] [address] [place] [facility] INFUSION 7 [facility] THERAPY INC INC PROPHYLAX IS/DX EA HOUR URNLS DIP 39866 [place] [facility] STICK/TAB INC INC LET REAGENT AUTO MICROSCOP Y UNCLASSIF J3490 [place] [facility] IED DRUGS 7 [facility] INC INC COMPREHEN 53389 [place] [facility] SIVE 7 [facility] METABOLIC INC INC PANEL UNCLASSIF J3490 [place] [facility] IED DRUGS 7 [facility] INC INC URNLS DIP 47438 [facility] HUMPHREY 7 PHYSICIAN STICK/TAB S GROUP LET RGNT NON-AUTO W/O MICRSCP IADNA 35436 [facility] TOD HUMAN 7 LLC PAPILLOMA VIRUS HIGH-RISK TYPES CYTP 65082 [facility] CERVICAL/ 7 LLC VAGINAL REQ INTERP PHYSICIAN CYTP C/V 69811 [facility] AUTO THIN 7 LLC LYR PREPJ SCR MNL RESCR PHYS ECG 89089 [place] ROUTINE 7 [facility] ECG INC INC W/LEAST 12 LDS TRCG ONLY W/O I&R PROTEIN 15196 [place] [facility] ELECTROPH 7 [facility] ORETIC INC INC FRACTJ&QU ANTJ SERUM BLOOD 04787 [place] [facility] COUNT 7 [facility] COMPLETE INC INC AUTO&AUTO DIFRNTL WBC ANTINUCLE 24499 [place] [facility] AR 7 [facility] ANTIBODIE INC INC S SANNA COMPREHEN 64954 [place] [facility] SIVE 7 [facility] METABOLIC INC INC PANEL URNLS DIP 30107 [place] [facility] 7 [facility] STICK/TAB INC INC LET RGNT AUTO W/O MICROSCOP Y UNCLASSIF J3490 [place] [facility] IED DRUGS 7 [facility] INC INC CT THORAX 08922 [place] [facility] [facility] W/CONTRAS INC INC T MATERIAL CREATININ 71337 [place] [facility] E BLOOD 7 [place] [address] [place] [facility] UREA 7 [facility] NITROGEN [place] [address] [facility] DUFF DX/THER 7 MD RHIANNON, AGT PVRT PSC FACET JT LMBR/SAC 1 LEVEL NJX 77512 [facility] DUFF DX/THER 7 MD RHIANNON, AGT PVRT PSC FACET JT LMBR/SAC 2ND LEVEL NJX 65934 [facility] DX/THER 7 MD RHIANNON, AGT PVRT PSC FACET JT LMBR/SAC 3+ LEVEL ECG 92840 [facility] ROUTINE 7 PHYSICIAN ECG S GROUP W/LEAST 12 LDS I&R ONLY ECG 80986 [place] [facility] ROUTINE 7 [facility] ECG INC INC W/LEAST 12 LDS TRCG ONLY W/O I&R THERAPEUT 75702 [place] [facility] IC PX 1/> 7 [facility] AREAS INC INC EACH 15 MIN EXERCISES APPL 89620 [place] [facility] MODALITY 7 [facility] 1/> AREAS INC INC IONTOPHOR ESIS EA 15 MIN APPL 83599 [place] [facility] MODALITY 7 [facility] 1/> AREAS INC INC TRACTION MECHANICA L APPL 57515 [place] [facility] MODALITY 7 [facility] 1/> AREAS INC INC ELEC STIMJ UNATTENDE D APPLICATI 48689 [place] [facility] ON 7 [facility] MODALITY INC INC 1/> AREAS HOT/COLD PACKS APPL 87481 [place] [facility] MODALITY 7 [facility] 1/> AREAS INC INC VASOPNEUM ATIC DEVICES APPL 16589 [place] [facility] MODALITY 7 [facility] 1/> AREAS INC INC ULTRASOUN D EA 15 MIN UNCLASSIF J3490 [place] [facility] IED DRUGS 7 [facility] INC INC APPLICATI 78129 [place] ON 7 [facility] MODALITY INC INC 1/> AREAS HOT/COLD PACKS APPL 43728 [place] [facility] MODALITY 7 [facility] 1/> AREAS INC INC ELEC STIMJ UNATTENDE D APPL 88767 [place] [facility] MODALITY 7 [facility] 1/> AREAS INC INC TRACTION MECHANICA L PHYSICAL 79216 [place] [facility] THERAPY 7 [facility] EVALUATIO INC INC N HIGH COMPLEX 45 MINS RADEX 03046 [place] [facility] ABDOMEN 7 [facility] COMPL INC INC W/DCBTS&/ ERC VIEWS ECG 48205 [place] [facility] ROUTINE 7 [facility] ECG INC INC W/LEAST 12 LDS TRCG ONLY W/O I&R THER 38135 [place] [facility] PROPH/DX 7 [facility] NJX IV INC INC PUSH SINGLE/1S T SBST/DRUG ECG 08807 [place] [facility] ROUTINE [facility] W/LEAST P 12 LDS I&R ONLY THERAPEUT 98333 [place] [facility] IC 7 [facility] INJECTION INC [place] [address] [place] [facility] TROPONIN 7 [facility] QUANTITAT INC INC SABIHA BLOOD 32081 [place] [facility] COUNT 7 [facility] COMPLETE INC INC AUTO&AUTO DIFRNTL WBC CREATINE 14891 [place] [facility] KINASE 7 [facility] TOTAL INC INC UNCLASSIF J3490 [place] [facility] IED DRUGS 7 [facility] INC INC COMPREHEN 17339 [facility] [facility] SIVE 7 [facility] [place] [address] [facility] [facility] LIPASE 7 [place] [address] [facility] [facility] AMYLASE 7 [facility] INC INC CREATINE 45763 [place] [facility] KINASE MB 7 [facility] FRACTION INC INC ONLY APPLICATI 56002 [place] [facility] ON 7 [facility] MODALITY INC INC 1/> AREAS HOT/COLD PACKS APPL 77710 [place] [facility] MODALITY 7 [facility] 1/> AREAS INC INC ELEC STIMJ UNATTENDE D APPL 09781 [place] [facility] MODALITY 7 [facility] 1/> AREAS INC INC TRACTION MECHANICA L ECG 24725 [facility] KIMBERLY ROUTINE 7 PHYSICIAN ECG S GROUP W/LEAST 12 LDS I&R ONLY ECG 46706 [place] [facility] ROUTINE 7 [facility] ECG INC INC W/LEAST 12 LDS TRCG ONLY W/O I&R APPL 76063 [place] [facility] MODALITY 7 [facility] 1/> AREAS INC INC TRACTION MECHANICA L APPL 40726 [place] [facility] MODALITY 7 [facility] 1/> AREAS INC INC ELEC STIMJ UNATTENDE D APPLICATI 93323 [facility] [facility] ON 7 [facility] MODALITY INC INC 1/> AREAS HOT/COLD PACKS APPLICATI 14922 [place] [facility] ON 7 [facility] MODALITY INC INC 1/> AREAS HOT/COLD PACKS XTRNL ECG 37355 [place] [facility] & 48 HR 7 [facility] RECORDING INC INC APPL 34062 [place] [facility] MODALITY 7 [facility] 1/> AREAS INC INC ELEC STIMJ UNATTENDE D THERAPEUT 03569 [place] [facility] IC PX 1/> 7 [facility] AREAS INC INC EACH 15 MIN EXERCISES ECG 19074 [facility] KIMBERLY ROUTINE 7 PHYSICIAN ECG S GROUP W/LEAST 12 LDS I&R ONLY ECG 77159 [place] [facility] ROUTINE 7 [facility] W/LEAST P 12 LDS I&R ONLY GROUND A0425 [facility] MILEAGE 7 AMBULANCE AMBULANCE PER SERVICE SERVICE STATUTE MILE ECG 43527 [facility] ROUTINE 7 [facility] ECG INC INC W/LEAST 12 LDS TRCG ONLY W/O I&R RADIOLOGI 85103 [facility] C EXAM 7 [facility] CHEST 2 INC INC VIEWS FRONTAL&[place] [address] [facility] TROPONIN 7 [facility] QUANTITAT INC INC SABIHA BLOOD 14244 [facility] COUNT 7 [facility] COMPLETE INC INC AUTO&AUTO DIFRNTL WBC CREATINE 59263 [facility] KINASE 7 [facility] TOTAL INC INC AMB A0427 [facility] SERVICE 7 AMBULANCE AMBULANCE ALS SERVICE SERVICE EMERGENCY TRANSPORT LEVEL 1 MRI 98199 [facility] SPINAL 7 CANAL ORTHOPAED LUMBAR ICS PSC W/O CONTRAST MATERIAL CREATINE 32285 [facility] KINASE MB 7 [facility] FRACTION INC INC ONLY COMPREHEN 49817 [facility] SIVE 7 [facility] METABOLIC INC INC PANEL APPLICATI 10070 [facility] [facility] ON 7 [facility] MODALITY INC INC 1/> AREAS HOT/COLD PACKS APPL 23872 [facility] MODALITY 7 [facility] 1/> AREAS INC INC ELEC STIMJ UNATTENDE D APPL 48411 [facility] MODALITY 7 [facility] 1/> AREAS INC INC TRACTION MECHANICA L THERAPEUT 68620 [facility] IC PX 1/> 7 [facility] AREAS INC INC EACH 15 MIN EXERCISES RADEX 43100 [facility] SPINE 7 [place] LUMBOSACR ORTHOPAED AL 2/[address] [place] [address] [facility] CERVICAL 7 MEDICAL MEDICAL SPINE W/O IMAGING IMAGING CONTRAST ASS ASS MATERIAL ECG 60567 [facility] ROUTINE 7 [facility] ECG INC INC W/LEAST 12 LDS TRCG ONLY W/O I&R ECG 54631 [place] [facility] ROUTINE 7 [facility] W/LEAST P 12 LDS I&[place] [address] [place] HEAD/BRAI 7 MEDICAL N W/O IMAGING CONTRAST ASS MATERIAL 25 69476 [facility] HYDROXY 7 [facility] INCLUDES INC INC FRACTIONS IF PERFORMED COLLECTIO 84424 [facility] [facility] N VENOUS 7 [facility] BLOOD INC INC VENIPUNCT URE CYANOCOBA 17923 [facility] LYUBOV 7 [facility] VITAMIN INC INC B-12 [place] [address] [facility] FOLIC 7 [facility] ACID INC INC SERUM UNCLASSIF J3490 [facility] IED DRUGS 7 [facility] INC INC THERAPEUT 84434 [facility] [facility] IC 7 [facility] PROPHYLAC INC INC TIC/DX INJECTION SUBQ/IM UNCLASSIF J3490 [facility] IED DRUGS 7 [facility] INC INC URNLS DIP 48701 [facility] [facility] 7 [facility] STICK/TAB INC INC LET REAGENT AUTO MICROSCOP Y DESTRUCTI 99827 [facility] ON BENIGN 7 LESIONS UP TO 14 [place] [address] [facility] TRACT 7 [facility] W/WO DELAYED IMAGES W/KUB RADEX 38714 [place] [facility] ABDOMEN 1 7 MEDICAL IMAGING ANTEROPOS ASS TERIOR VIEW BLOOD 13423 [facility] [facility] COUNT 7 [facility] COMPLETE INC INC AUTO&[place] [address] [facility] [facility] [facility] THERAPY/P INC INC ROPHYLAXI S /DX 1ST TO 1 HR TX PROC [id number] [place] [facility] IMPRV [facility] RESP INC INC FUNCT NOT G0237 FCE-FCE 15MIN COMPREHEN 10603 [place] [facility] SIVE 7 [facility] METABOLIC INC INC PANEL RAD EXP G9500 [place] INDICES/E 7 MEDICAL XP TM & IMAGING NUMB ASS FLUORO IMAGES DOC RADEX 34847 [place] ESOPHAGUS 7 MEDICAL IMAGING ASS ANES 36617 [facility] INTRAPERI 7 [place] TONEAL ANESTHESI UPPER A ABDOMEN W/LAPS NOS INJECTION J0330 CHRISTIAN CHRISTIAN 7 [facility] SUCCINYLC [facility] HOLINE CHLORIDE UP TO 20 MG INJECTION J2405 CHRISTIAN CHRISTIAN 7 [facility] ONDANSETR [facility] ON HCL PER 1 MG INJECTION J1650 CHRISTIAN CHRISTIAN 7 [facility] ENOXAPARI [facility] N SODIUM 10 MG INJECTION J1100 CHRISTIAN CHRISTIAN 7 [facility] DEXAMETHO [facility] SONE SODIUM PHOSPHATE 1 MG INJECTION J1170 CHRISTIAN CHRISTIAN 7 [facility] HYDROMORP [facility] KURTIS UP TO 4 MG LAPS RPR 58576 CHRISTIAN GARCIA PARAESPHG 7 [facility] L HRNA MEDICAL INCL GROUP FUNDPLSTY W/O MESH INJECTION J2704 CHRISTIAN CHRISTIAN PROPOFOL 7 [facility] 10 MG [facility] INJECTION J2710 CHRISTIAN CHRISTIAN 7 [facility] NEOSTIGMI [facility] NE METHYLSUL FATE UP TO 0.5 MG INJECTION J3010 CHRISTIAN CHRISTIAN FENTANYL 7 [facility] CITRATE [facility] 0.1 MG COLLECTIO 49544 CHRISTIAN CHRISTIAN N VENOUS 7 [facility] BLOOD [facility] VENIPUNCT URE GLUCOSE 79038 CHRISTIAN CHRISTIAN QUANTITAT 7 [facility] SABIHA BLOOD [facility] XCPT REAGENT STRIP HEMOGLOBI 95442 CHRISTIAN CHRISTIAN N 7 [facility] GLYCOSYLA [facility] LANEY A1C ECG 47905 CHRISTIAN ANNA ROUTINE 7 [facility] ECG MEDICAL W/LEAST GROUP 12 LDS I&R ONLY ECG 28061 CHRISTIAN CHRISTIAN ROUTINE 7 [facility] ECG [facility] W/LEAST 12 LDS TRCG ONLY W/O I&R BLOOD 85687 CHRISTIAN CHRISTIAN COUNT 7 [facility] HEALTH [place] [address] [place] [facility] INFUSION 6 [facility] THERAPY/P INC INC ROPHYLAXI S /DX 1ST TO 1 HR BLOOD 66979 [place] COUNT 6 [facility] COMPLETE INC INC AUTO&AUTO DIFRNTL WBC RADIOLOGI 62316 [facility] C EXAM 6 MEDICAL MEDICAL CHEST 2 IMAGING IMAGING VIEWS ASS ASS FRONTAL&L ATERAL RADEX 99004 [facility] ABDOMEN 6 MEDICAL MEDICAL COMPL IMAGING IMAGING W/DCBTS&/ ASS ASS ERC VIEWS ECG 01562 [place] SCOTT JR ROUTINE 6 [facility] W/LEAST P 12 LDS I&R ONLY THERAPEUT 99381 [place] [facility] IC 6 [facility] INJECTION INC [place] [address] [facility] [facility] AMYLASE 6 [facility] [place] [address] [facility] [facility] LIPASE 6 [facility] INC INC COMPREHEN 08092 [facility] [facility] SIVE 6 [facility] METABOLIC INC INC PANEL ECG 42229 [place] [facility] ROUTINE 6 [facility] ECG INC INC W/LEAST 12 LDS TRCG ONLY W/O I&R BLOOD 20700 [place] [facility] OCCULT 6 JASPER PEROXIDAS INTERNAL E ACTV MED QUAL FECES 1 DETER GLUC BLD 20669 [place] [facility] GLUC MNTR 6 [facility] DEV INC [place] [address] [place] HEAD/BRAI 6 MEDICAL N W/O IMAGING CONTRAST ASS MATERIAL THERAPEUT 41663 [place] [facility] IC 6 [facility] PROPHYLAC INC INC TIC/DX INJECTION SUBQ/IM RADIOLOGI 69794 [place] ALL C 6 MEDICAL EXAMINATI IMAGING ON PELVIS ASS 1/2 VIEWS RADEX 17662 [place] ALL SACRUM & 6 MEDICAL COCCYX IMAGING MINIMUM 2 ASS VIEWS RADEX 08764 [facility] ALL SPINE 6 MEDICAL LUMBOSACR IMAGING AL ASS MINIMUM 4 VIEWS URINE 94931 [place] [facility] 6 [facility] TEST INC INC VISUAL COLOR CMPRSN METHS CUL BACT 94928 [place] [facility] XCPT 6 [facility] URINE INC INC BLOOD/STO OL AEROBIC ISOL RADEX 92986 [place] [facility] SINUSES 6 [facility] PARANASAL INC INC COMPL MINIMUM 3 [place] [address] [facility] [facility] STREPTOCO 6 [facility] CCUS INC INC GROUP A RADIOLOGI 07841 [place] [facility] C EXAM 6 [facility] CHEST 2 INC INC VIEWS FRONTAL&L ATERAL BLOOD 16800 [place] [facility] COUNT 6 [facility] COMPLETE INC INC AUTO&AUTO DIFRNTL WBC IAADI 13039 [place] [facility] INFLUENZA 6 [facility] B VIRUS INC INC IAADI 91665 [facility] [facility] INFFLUENZ 6 [facility] A A VIRUS INC INC DECALCIFI 05300 [facility] [place] [address] [facility] SURG [facility] ER [facility] PATHOLOGY GROSS&BRYCE ROSCOPIC EXAM ANESTHESI 34625 COMMUNITY FEEBACK A NOSE & 6 ANESTH ACCESSORY OF THE SINUSES BLUE NOS ECG 23170 [place] [facility] ROUTINE 6 [facility] ECG INC INC W/LEAST 12 LDS TRCG ONLY W/O I&R ECG 97332 [place] MATUTE ROUTINE 6 [facility] W/LEAST P 12 LDS I&R ONLY BLOOD 81255 [place] [facility] COUNT 6 [facility] COMPLETE INC INC AUTO&AUTO DIFRNTL WBC ANTIBODY 57211 [place] [facility] HERPES 6 [facility] SMPLX INC INC TYPE 1 ANTIBODY 87360 [place] [facility] VIRUS NOT 6 [facility] INC INC ELSEWHERE SPECIFIFE D COMPREHEN 81240 [place] SIVE 6 [facility] METABOLIC INC INC PANEL COLLECTIO 59152 [place] [facility] N VENOUS 6 [facility] [place] [address] [place] HARLE[place] MAXILLOFA 6 MEDICAL ADRIANNA CIAL W/[place] [address] [place] BEINEKE CERVICAL 6 MEDICAL SPINE W/O IMAGING CONTRAST ASS MATERIAL URINE 11682 [place] [facility] 6 [facility] TEST INC [place] [address] [facility] HEAD/BRAI 6 MEDICAL N W/O IMAGING CONTRAST ASS MATERIAL COMPRE 83145 MAEGAN ISSA AUDIOMETR 6 JARON JARON Y THRESHOLD EVAL SP RECOGNIJ TYMPANOME 78653 MAEGAN ISSA TRY 6 JARON JARON DISTORT 09731 MAEGAN ISSA PRODUCT 6 JARON JARON EVOKED OTOACOUST IC EMISNS LIMITD PULMONARY 64576 [place] NOGUEIRA STRESS 6 MEDICAL TESTING SERV SIMPLE FOUNDATIO N GAS 96642 [place] MELANIE DILUT/WAS 6 MEDICAL MEDICAL HOUT LUNG SERV SERV VOL W/WO FOUNDATIO FOUNDATIO DISTRIB N N VENT&[place] [address] [place] NO[place] DIFFUSING 6 MEDICAL CAPACITY SERV FOUNDATIO N ELIG CLIN G8427 STAMPING RODRIGUEZ TRI ATTSTS 6 GROUND DOC M REC FAMILY OBTD CLINI UPD/REV PT MEDS ECG 29120 [place] ROUTINE 6 [facility] W/LEAST P 12 LDS I&R ONLY IM ADM 34609 [facility] PRQ ID 6 [facility] DISTRICT SUBQ/IM HLTH DEPT HLTH DEPT NJXS EA JAZZ JAZZ VACCINE SKIN TEST 35489 [facility] 6 [facility] DISTRICT TUBERCULO HLTH DEPT HLTH DEPT SIS JAZZ JAZZ INTRADERM AL SYPHILIS 10566 [facility] TEST 6 DISTRICT DISTRICT NON-TREPO HLTH DEPT HLTH DEPT NEMAL JAZZ JAZZ ANTIBODY QUAL BLOOD 22593 [place] [facility] COUNT 6 [facility] COMPLETE INC INC AUTO&AUTO DIFRNTL WBC IM ADM 37718 [facility] PRQ ID [address] [facility] DISTRICT SUBQ/IM HLTH DEPT HLTH DEPT NJXS 1 JAZZ JAZZ VACCINE TDAP 34307 [facility] VACCINE 7 6 DISTRICT DISTRICT YRS/> IM HLTH DEPT HLTH DEPT JAZZ JAZZ BLOOD 49334 [place] [facility] OCCULT 6 [facility] PEROXIDAS INC INC E ACTV QUAL FECES 1-3 SPEC COLLECTIO 33071 [place] [facility] N VENOUS 6 [facility] BLOOD INC INC VENIPUNCT URE XTRNL ECG 55328 [place] MATUTE 6 [facility] S RHYTHM P W/I&R UP TO 48 HRS ECG 85307 [place] ROUTINE 6 [facility] W/LEAST P 12 LDS I&R ONLY SPMTRY 75349 ALLERGY ROSENTHAL MAR W/VC 6 [facility]ERS EXPIRATOR OF [place] Y ABHI CO W/WO MXML VOL VNTJ ANTINUCLE 09942 [place] [facility] AR 6 [facility] ANTIBODIE INC INC S SANNA NITRIC 80850 ALLERGY ROSENTHAL MAR OXIDE 6 [facility] [place] GAS CO DETERMINA TION BLOOD 72267 [place] [facility] COUNT 6 [facility] RETICULOC INC INC YTE AUTOMATED BLOOD 00657 [place] [facility] COUNT 6 [facility] COMPLETE INC INC AUTO&AUTO DIFRNTL WBC RHEUMATOI 97577 [place] Morillo FACTOR 6 [facility] QUANTITAT INC INC SABIHA PROF SVCS 19808 ALLERGY ROSENTHAL MAR ALLG 6 PARTNERS IMMNTX X OF [place] W/PRV CO ALLGIC XTRCS NJXS SEDIMENTA 23454 [place] [facility] TION RATE 6 [facility] RBC INC INC NON-AUTOM ATED GROUND A0425 [facility] MILEAGE 6 AMBULANCE PATY PER SERVICE STATUTE MILE AMBULANCE A0429 [facility] SERVICE 6 [facility]ANCE PATY BLS SERVICE EMERGENCY TRANSPORT BONE 76609 [place] [facility] &/JOINT 6 [facility] IMAGING INC INC WHOLE BODY SEDIMENTA 17497 [place] [facility] TION RATE 6 [facility] RBC INC INC NON-AUTOM ATED BLOOD 52767 [place] [facility] COUNT 6 [facility] COMPLETE INC INC AUTO&AUTO DIFRNTL WBC BLOOD 06947 [place] [facility] COUNT 6 [facility] RETICULOC INC INC YTE AUTOMATED TECHNETIU A9503 [place] Mont[place] TC-99M 6 [facility] MEDRONATE INC INC DX UP TO 30 MCI COLLECTIO 25891 [place] [facility] N VENOUS 6 [facility] BLOOD INC INC VENIPUNCT URE BASIC 49963 [place] [facility] METABOLIC 6 [facility] PANEL INC INC CALCIUM TOTAL RADIOLOGI 88422 [facility] C EXAM 6 MEDICAL MEDICAL CHEST 2 IMAGING IMAGING VIEWS ASS ASS FRONTAL&L ATERAL ANES 09448 [place] BRITTNY LOWER 6 ANESTHESI INTESTINE A GROUP [place] [address] [place] [facility] THYROXINE 6 [facility] TOTAL INC INC COLLECTIO 61193 [place] [facility] N VENOUS 6 [facility] BLOOD INC INC VENIPUNCT URE GONADOTRO 57923 [place] [facility] PIN 6 [facility] FOLLICLE INC INC STIMULATI NG HORMONE GONADOTRO 51046 [place] [facility] PIN 6 [facility] [place] [address] [place] [facility] THYROID 6 [facility] STIMULATI INC INC NG HORMONE TSH THYROID 33097 [place] [facility] HORM 6 [facility] UPTK/THYR INC INC OID HORMONE BINDING RATIO GROUND A0425 [facility] MILEAGE 6 AMBULANCE KILO PER SERVICE STATUTE MILE ECG 50863 [place] ROUTINE 6 [facility] W/LEAST P 12 LDS I&R ONLY RADIOLOGI 59057 [facility] C 6 MEDICAL MEDICAL EXAMINATI IMAGING IMAGING ON CHEST ASS ASS SINGLE VIEW FRONTAL AMB A0427 [facility] SERVICE 6 AMBULANCE KILO ALS SERVICE EMERGENCY TRANSPORT LEVEL 1 PREPJ& 01747 ALLERGY ROSENTHAL MAR ALLERGEN 6 PARTNERS IMMUNOTHE OF TRE PEREZ CO 1/[place] [address] [place] [facility] INFUSION 6 [facility] THERAPY INC INC PROPHYLAX IS/[place] [address] [place] [facility] HEAD/BRAI 6 [facility] N W/O INC INC CONTRAST MATERIAL RADIOLOGI 51182 [place] [facility] C 6 [facility] EXAMINATI INC INC ON KNEE 3 VIEWS CREATINE 19820 [place] [facility] KINASE 6 [facility] TOTAL INC INC COMPREHEN 05558 [place] [facility] SIVE 6 [facility] METABOLIC INC INC PANEL CREATINE 31844 [place] [facility] KINASE MB 6 [facility] FRACTION INC INC ONLY ECG 34068 [place] ROUTINE 6 [facility] W/LEAST P 12 LDS I&R ONLY ECG 85148 [place] ROUTINE 6 [facility] ECG INC INC W/LEAST 12 LDS TRCG ONLY W/O I&[place] [address] [place] [facility] TROPONIN 6 [facility] QUANTITAT INC INC SABIHA BLOOD 82179 [place] COUNT 6 [facility] COMPLETE INC INC AUTO&[place] [address] [place] INFUSION 6 [facility] THERAPY/P INC INC ROPHYLAXI S /DX [address] [place] [address] [place] [address] [place] [facility] CERVICAL 6 [facility] SPINE W/O INC INC CONTRAST MATERIAL PERCUTANE 84180 ALLERGY ROSENTHAL MAR OUS TESTS 6 [facility] [place] W/ALLERGE CO LEO EXTRACTS INTRACUTA 69859 ALLERGY ROSENTHAL MAR NEOUS 6 PARTNERS TESTS OF [place] W/ALLERGE CO LEO EXTRACTS SPACR A4627 [facility] KRASNOPOL BAG/RESRV 6 EQUIPMENT ANTONIO LAUREN OR W/WO INC MASK W/METRD DOSE INHAL SPMTRY 20207 ALLERGY ROSENTHAL MAR W/VC 6 PARTNERS EXPIRATOR OF [place] Y ABHI CO W/WO MXML VOL VNTJ NITRIC 81953 ALLERGY ROSENTHAL MAR OXIDE 6 [facility] [address] [facility] KAM TRANSVAGI 6 PHYSICIAN MEAGAN NAL S GROUP ECG 52565 [place] CHAVEZ JR ROUTINE 6 [facility] W/LEAST P 12 LDS I&R ONLY IADNA 77722 [place] [facility] NEISSERIA 6 [facility] INC INC GONORRHOE AE AMPLIFIED PROBE TQ IADNA 04246 [place] [facility] CHLAMYDIA 6 [facility] INC INC TRACHOMAT [place] [address] [facility] TRACT 6 N N UPPER COMMUNTIY COMMUNTIY W/WO HOSPITA HOSPITA DELAYED IMAGES W/KUB ECG 43704 [place] ROUTINE 6 [facility] W/LEAST P 12 LDS I&R ONLY RADIOLOGI 62766 [place] SAQIB ALL C 6 MEDICAL EXAMINATI IMAGING ON CHEST ASS SINGLE VIEW FRONTAL ELECTROEN 15118 [facility] CEPHALOGR 6 N AM W/REC NEUROLOGY AWAKE&ASL EEP ECG 80389 [place] ROUTINE 6 [facility] W/LEAST P 12 LDS I&[place] [address] [facility] ABDOMEN & 6 MEDICAL MEDICAL PELVIS IMAGING IMAGING W/CONTRAS ASS ASS T MATERIAL ELECTROEN 36987 [facility] CEPHALOGR 6 N N AM W/REC COMMUNTIY COMMUNTIY AWAKE&CHUCKY HOSPITA HOSPITA WSY ECG 89879 [place] CHAVEZ JR ROUTINE 6 [facility] W/LEAST P 12 LDS I&R ONLY RADEX 29381 [place] SAQ[facility] ALL SPINE 6 MEDICAL THORACIC IMAGING 2 VIEWS ASS RADIOLOGI 76983 [place] SAQ[place] ALL C 6 MEDICAL EXAMINATI IMAGING ON CHEST ASS SINGLE VIEW FRONTAL SCREENING G0202 [place] HARLEEN 6 MEDICAL ADRIANNA MAMMOGRAP IMAGING HY WILBERT ASS INCL CAD WHEN PERFORMD COMPUTER- 48718 [place] AIDED 6 MEDICAL ADRIANNA DETECTION IMAGING ASS SCREENING MAMMOGRAP HY ECG 37360 [place] [facility] ROUTINE 6 [facility] ECG INC INC W/LEAST 12 LDS TRCG ONLY W/O I&[place] [address] [place] [facility] INFUSION 6 [facility] THERAPY/P INC INC ROPHYLAXI S /DX 1ST TO 1 HR BLOOD 98040 [place] [facility] COUNT 6 [facility] COMPLETE INC INC AUTO&[place] [address] [place] [facility] TROPONIN 6 [facility] QUANTITAT INC INC SABIHA RADEX ABD 62462 [facility] ALL COMPL 6 MEDICAL AQT ABD IMAGING W/S/E/D ASS VIEWS 1 VIEW ECG 51646 [place] CHAVEZ JR ROUTINE 6 [facility] W/LEAST P 12 LDS I&[place] [address] [place] LACTATE 6 [facility] INC INC COMPREHEN 14050 [place] SIVE 6 [facility] METABOLIC INC INC PANEL URNLS DIP 15250 [place] [facility] 6 [facility] STICK/TAB INC [place] [address] [place] [facility] INFUSION 6 [facility] THERAPY/P INC INC ROPHYLAXI S /DX 1ST TO 1 HR BLOOD 59618 [place] [facility] COUNT 6 [facility] COMPLETE INC INC AUTO&[place] [address] [place] [facility] TROPONIN 6 [facility] QUANTITAT INC INC SABIHA RADIOLOGI 30381 SE[facility] CERR[facility] ALL C EXAM 6 MEDICAL CHEST 2 IMAGING VIEWS ASS FRONTAL&L ATERAL ECG 32097 [place] [facility] ROUTINE 6 [facility] ECG INC INC W/LEAST 12 LDS TRCG ONLY W/O I&R ECG 54156 [place] MATUTE ROUTINE 6 [facility] W/LEAST P 12 LDS I&R ONLY COMPREHEN 02927 AUSTINKIMBERLY TALLEYON SIVE 6 [facility] METABOLIC INC INC PANEL URINE 49708 [place] [facility] 6 [facility] TEST INC INC VISUAL COLOR CMPRSN METHS CREATINE 81655 [place] [facility] KINASE MB 6 [facility] FRACTION INC INC ONLY URNLS DIP 33987 [place] [facility] 6 [facility] STICK/TAB INC INC LET REAGENT AUTO MICROSCOP Y CREATINE 54428 [place] [facility] KINASE 6 [facility] TOTAL INC INC CULTURE 43592 [place] [facility] BACTERIAL 6 [facility] INC INC QUANTTATI VE COLONY COUNT URINE RADEX ABD 78847 [facility]LIN[facility] C[facility] ALL COMPL 6 MEDICAL AQT ABD IMAGING W/S/E/D ASS VIEWS 1 VIEW CH AMB A0427 [facility] SERVICE 6 AMBULANCE AMBULANCE ALS SERVICE SERVICE EMERGENCY TRANSPORT LEVEL 1 GROUND A0425 [facility] MILEAGE 6 AMBULANCE AMBULANCE PER SERVICE SERVICE STATUTE MILE THER 26961 [facility] PROPH/DX 6 N N NJX IV COMMUNTIY COMMUNTIY PUSH HOSPITA HOSPITA SINGLE/1S T SBST/[place] [address] [facility] INFUSION 6 N N HYDRATION COMMUNTIY COMMUNTIY EACH HOSPITA HOSPITA ADDITIONA L HOUR BLOOD 15408 [facility] COUNT 6 N N COMPLETE COMMUNTIY COMMUNTIY AUTO&AUTO HOSPITA HOSPITA DIFRNTL WBC MRI BRAIN 83280 [facility] BRAIN 6 N N STEM W/O COMMUNTIY COMMUNTIY CONTRAST HOSPITA HOSPITA MATERIAL COMPREHEN 85906 [facility] SIVE 6 N N METABOLIC COMMUNTIY COMMUNTIY PANEL HOSPITA HOSPITA COLLECTIO 10785 [facility] N VENOUS 6 N N BLOOD COMMUNTIY COMMUNTIY VENIPUNCT HOSPITA HOSPITA URE RADIOLOGI 53390 [place] C[place] ALL C 6 MEDICAL EXAMINATI IMAGING [place] [address] [place] ALL HEAD/BRAI 6 MEDICAL N W/O IMAGING CONTRAST ASS MATERIAL AMB A0427 [facility] SERVICE 6 AMBULANCE AMBULANCE ALS SERVICE SERVICE [place] [address] [facility] C[facility] ALL ABDOMEN & 6 MEDICAL PELVIS IMAGING W/O ASS CONTRAST MATERIAL GROUND A0425 [facility] AM[facility]ULANCE PER SERVICE SERVICE STATUTE MILE ECG 53063 [place] ROUTINE 6 [facility] W/LEAST P 12 LDS I&R ONLY THERAPEUT 97017 [facility] LUKING IC PX 1/> 6 AREAS EACH 15 MIN EXERCISES CHIROPRAC 28735 [facility] TIC 6 MANIPLTV TX EXTRASPIN AL 1/> REGION CHIROPRAC 23976 [facility] TIC 6 MANIPULAT SABIHA TX SPINAL 3-4 REGIONS MANUAL 12083 [facility] THERAPY 6 TQS 1/> REGIONS EACH 15 MINUTES MANUAL 24197 [facility] THERAPY 6 TQS 1/> REGIONS EACH 15 MINUTES THERAPEUT 35468 LUK[facility] LUKING IC PX 1/> 6 AREAS EACH 15 MIN EXERCISES THERAPEUT 88075 LUK[facility] LUKING IC PX 1/> 6 MATTI MATTI AREAS EACH 15 MIN EXERCISES CHIROPRAC 10095 [facility] [place] TIC 6 MATTI MATTI MANIPLTV TX EXTRASPIN AL 1/> REGION MANUAL 82212 [facility] THERAPY 6 MATTI MATTI TQS 1/> REGIONS EACH 15 MINUTES CHIROPRAC 80723 [facility] TIC 6 MATTI MATTI MANIPULAT SABIHA TX SPINAL 3-4 REGIONS COMPREHEN 61165 [facility] SIVE 6 DIAGNOSTI DIAGNOSTI METABOLIC CS CS PANEL IMHISTOCH 20474 SCALF LEI SCALF LEI EM/CYTCHM 6 1ST [place] [address] [facility] LEI SCALF LEI SURG 6 PATHOLOGY GROSS&BRYCE ROSCOPIC EXAM BX SKIN 39041 SCALF LEI SCALF LEI SUBCUTANE 6 OUS&/MUCO US MEMBRANE 1 LESION ECG 71151 [place] ROUTINE 6 [facility] W/LEAST P 12 LDS I&R ONLY ECG 80289 DOMINICK ANDRES ROUTINE 6 [facility] ECG MEDICAL W/LEAST GROUP 12 LDS I&R ONLY BLOOD 41854 CHRISTIAN CHRISTIAN COUNT 6 HEALTH HEALTH COMPLETE [facility] AUTOMATED GONADOTRO 08968 CHRISTIAN CHRISTIAN PIN 6 HEALTH HEALTH CHORIONIC [facility] QUANTITAT SABIHA INJECTION J3010 CHRISTIAN CHRISTIAN FENTANYL 6 HEALTH HEALTH CITRATE [facility] 0.1 MG HEMOGLOBI 19514 CHRISTIAN CHRISTIAN N 6 HEALTH HEALTH GLYCOSYLA [facility] LANEY A1C BASIC 10613 CHRISTIAN CHRISTIAN METABOLIC 6 HEALTH HEALTH PANEL [facility] CALCIUM TOTAL LOCM Q9967 CHRISTIAN CHRISTIAN [phone] 6 HEALTH HEALTH MG/ML [facility] IODINE CONCENTRA TION PER ML CATH PLMT 41217 CHRISTIANBerenice ANDRES L HRT & 6 HEALTH IV ARTS MEDICAL W/NJX & GROUP ANGIO IMG S&I INJECTION J1644 CHRISTIAN CHRISTIAN HEPARIN 6 [facility] SODIUM [facility] PER 1000 UNITS COLLECTIO 17901 CHRISTIAN CHRISTIAN N VENOUS 6 [facility] BLOOD [facility] VENIPUNCT URE LIPID 53599 CHRISTIAN CHRISTIAN PANEL 6 [facility] ECHO 84294 MELANIE STERN TTHRC R-T 6 MEDICAL 2D SERV W/WOM-MOD FOUNDATIO E COMPL N SPEC&COLR D CV STRS 11836 [place] T[place]LEY[place] TST 6 [facility]&/OR [facility] RX CONT P P ECG W/O I&R CV STRS 39684 [place] TST 6 [facility] XERS&/OR INC INC RX CONT ECG TRCG ONLY TECHNETIU [id number] [place] TC-99M 6 [facility] SESTAMIBI INC INC DX PER STUDY DOSE CV STRS 00897 [place] AVILA TST 6 [facility]&/OR [facility] RX CONT P P ECG I&R ONLY UNCLASSIF [id number] [place] IED DRUGS 6 [facility] INC INC MYOCARDIA 07358 [place] Ortega SPECT 6 [facility] MULTIPLE INC INC STUDIES ECG 42880 [place] CHAVEZ JR ROUTINE 6 [facility] W/LEAST P 12 LDS I&R ONLY RADIOLOGI 62482 [place] ALL C 6 MEDICAL EXAMINATI IMAGING ON CHEST ASS SINGLE VIEW FRONTAL OPHTH 00583 BO[facility]ER CHRISTEL [facility] MEDICAL 6 XM&EVAL COMPRHNSV ESTAB PT 1/> 25 99114 [facility] HYDROXY 6 [facility] INCLUDES [facility] [place] [address] [facility] FERRITIN 6 [facility] COMPREHEN 49804 [facility] SIVE 6 [facility] METABOLIC [facility] PANEL ORGANIC 17856 [facility] ACID 1 6 MAI [facility] [place]IT[place] [address] [facility] MAGNESIUM 6 [place] [address] [facility] IRON 6 [place] [address] [facility] FOLIC 6 [facility] MA[facility] [place] [address] [facility] PARATHORM 6 [place] [place] [address] [facility] PHOSPHORU 6 [facility] [place] [address] LAB [facility] THIAMINE- 6 [facility] VITAMIN HOLD[place] B-1 [place] [address] LAB [facility] TOCOPHERO 6 [facility] L ALPHA [place] [address] [facility] VITAMIN A 6 [facility] HOLDINGS PREALBUMI 42990 [facility] N 6 MA[facility]INGS HOLDINGS BLOOD 14403 [facility] COUNT 6 [facility]I MAI COMPLETE [facility] HOLDINGS AUTO&[place] [address] [facility] ZINC 6 [facility]INGS BLOOD 44065 [place] COUNT 6 [facility] COMPLETE INC INC AUTO&[place] [address] [place] THYROID 6 [facility] STIMULATI INC INC NG HORMONE TSH IRON 57351 [place] [facility] BINDING 6 [facility] [place] [address] [place] [facility] IRON 6 [place] [address] [place] VAUGHN FERRITIN 6 [facility] TERA INC COLLECTIO 53341 [place] N VENOUS 6 [facility] BLOOD INC INC VENIPUNCT URE COMPREHEN 98384 [place] [facility] SIVE 6 [facility] METABOLIC INC INC PANEL 25 79338 [facility] [facility] HYDROXY 6 [facility] INCLUDES INC INC FRACTIONS IF PERFORMED IADNA 42063 [facility]AMYD[facility] TRACHOMAT IS AMPLIFIED PROBE TQ IADNA 31645 [facility], [facility] HUM[facility] PAPILLOMA VIRUS HIGH-RISK TYPES IADNA 93962 [facility] NEISSERIA [facility] GONORRHOE AE AMPLIFIED PROBE TQ CYTP C/V 57614 [facility] AUTO THIN [facility] LYR PREPJ SCR MNL RESCR PHYS CYTP 63331 [facility], [facility] CERVICAL/ 6 [facility] [place] [address] [place] [facility] THYROID 6 [facility] STIMULATI INC INC NG HORMONE TSH COLLECTIO 14760 [place] [facility] N VENOUS 6 [facility] BLOOD INC INC VENIPUNCT URE BASIC 51348 [place] [facility] METABOLIC 6 [facility] [place] [address] [place] [facility] IRON 6 [facility] INC INC COMPREHEN 46588 [place] [facility] SIVE 6 [facility] METABOLIC INC INC PANEL COLLECTIO 94073 [place] [facility] N VENOUS 6 [facility] [place] [address] [place] [facility] FERRITIN 6 [facility] INC INC ORGANIC 29770 [place] ACID 1 6 [facility] QUANTITAT INC INC SABIHA PREALBUMI 06844 [facility] INC INC BLOOD 76917 [facility] COUNT 6 [facility] COMPLETE INC INC AUTO&[place] [address] [facility] THIAMINE- 6 [facility] VITAMIN INC INC B-1 [place] [address] LAB MAHESH LAB MAHESH THIAMINE- 5 [facility] VITAMIN HOLDINGS HOLDINGS B-1 PREALBUMI 24650 LAB MAHESH LAB MAHESH N 5 [place] [address] LAB MAHESH LAB MAHESH FERRITIN 5 MAI [facility] HOLDINGS HOLDINGS ORGANIC 18993 LAB MAHESH LAB MAH[facility] ACID 1 5 MAI MA[facility] QUANTIT[place] [address] LAB MAHESH LAB MAHESH FOLIC 5 MAI [place] [address] LAB MAHESH LAB MAHESH IRON 5 MAI MAI HOLDINGS HOLDINGS GENERAL 86235 LAB MA[facility]ESH LAB MAHESH HEALTH 5 [facility] PANEL HOLDINGS HOLDINGS DESTRUCTI 29708 ATKINS ATKINS ON BENIGN 5 TRA TRA LESIONS UP TO 14 DESTRUCTI 63899 ATKINS ATKINS ON 5 TRA TRA PREMALIGN ANT LESION 1ST BIOPSY 89382 ATKINS ATKINS SKIN 5 TRA TRA SUBQ&/MUC [place] [address] SCALF LEI SCALF LEI SURG 5 PATHOLOGY GROSS&BRYCE ROSCOPIC EXAM BX SKIN 34612 ATKINS ATKINS SUBCUTANE 5 TRA TRA OUS&/MUCO US MEMBRANE 1 [place] [address] LAB MAHESH LAB MAHESH THIAMINE- 5 [facility] VITAMIN HOLDINGS HOLDINGS B-1 PREALBUMI 31615 LAB MAHESH LAB MAHESH N 5 [facility] HOLDINGS HOLDINGS BLOOD 08288 LAB MAHESH LAB MAHESH COUNT 5 [facility] COMPLETE HOLDINGS HOLDINGS AUTO&[place] [address] LAB MAHESH LAB MAHESH FOLIC 5 [facility] [place] [address] LAB MAHESH LAB MAHESH IRON 5 [facility] HOLDINGS HOLDINGS ORGANIC 49799 LAB MAHESH LAB MAHESH ACID 1 5 [facility] QUANTITAT HOLDINGS HOLDINGS SABIHA COMPREHEN 41559 LAB MAHESH LAB MAHESH SIVE 5 [facility] METABOLIC HOLDINGS HOLDINGS PANEL COMPUTER- 17613 [place] [facility] AIDED 5 MEDICAL CARMEN DETECTION IMAGING ASS SCREENING MAMMOGRAP HY SCREENING G0202 [facility] 5 MEDICAL CARMEN MAMMOGRAP IMAGING HY WILBERT ASS INCL CAD WHEN PERFORMD BLOOD 19845 [facility] COUNT 5 [facility] COMPLETE INC INC AUTO&[place] [address] [facility] THYROID 5 [facility] STIMULATI INC INC NG HORMONE TSH HEMOGLOBI 89710 [facility] N [facility] GLYCOSY[place] [address] [facility] GLUTAMYLT 5 [facility] RASE INC INC GAMMA CYANOCOBA 75410 [facility] LYUBOV 5 [facility] VITAMIN INC INC B-12 COMPREHEN 00896 [facility] SIVE 5 [facility] METABOLIC INC INC PANEL COLLECTIO 44477 [facility] N VENOUS 5 [facility] BLOOD INC INC VENIPUNCT URE LIPID 24367 [facility] PANEL 5 [facility] INC INC 25 52512 [facility] HYDROXY 5 [facility] INCLUDES INC INC FRACTIONS IF PERFORMED OPHTH 63119 SCIFRES SCIFRES MEDICAL 5 ANG ANG XM&EVAL COMPRHNSV ESTAB PT 1/> [place] [address] [facility] [place] SCALF HUBER ABDOMEN & 5 RADIOLOGY PELVIS W/[place] [address] [facility] & 5 MEDICAL PELVIS IMAGING W/CONTRAS ASS T MATERIAL BLOOD 88555 [facility] COUNT 5 [facility] COMPLETE INC INC AUTO&AUTO DIFRNTL WBC CULTURE 51124 [facility] BACTERIAL 5 [facility] INC INC [place] [address] [facility] LIPASE 5 [facility] INC INC URNLS DIP 01647 [facility] STICK/TAB INC INC LET REAGENT AUTO MICROSCOP Y COMPREHEN 44603 [facility] SIVE 5 [facility] METABOLIC INC INC PANEL URINE 80460 [facility] TEST INC [place] [address] [facility] AMYLASE 5 [place] [address] [facility] AMYLASE 5 N N COMMUNTIY COMMUNTIY HOSPITA HOSPITA COMPREHEN 90442 [facility] SIVE 5 N N METABOLIC COMMUNTIY [place] [address] [facility] PARATHORM 5 N N ONE COMMUNTIY COMMUNTIY HOSPITA HOSPITA ORGANIC 57589 [facility] ACID 1 5 N N QUANTITAT COMMUNTIY COMM[place] [address] [facility] FOLIC 5 N N ACID COMMUNTIY [place] [address] [facility] LIPASE 5 N N [place] [address] [facility] MAGNESIUM 5 N N COMMUNTIY COMMUNTIY HOSPITA HOSPITA COLLECTIO 64846 [facility] N VENOUS 5 N N BLOOD COMMUNTIY COMMUNTIY VENIPUNCT HOSPITA HOSPITA URE 25 08015 [facility] HYDROXY 5 N N INCLUDES COMMUNTIY COMMUNTIY FRACTIONS HOSPITA HOSPITA IF PERFORMED BLOOD 71039 [facility] COUNT 5 N N COMPLETE COMMUNTIY COMMUNTIY AUTO&AUTO [place] [address] [facility] ZINC 5 N N [place] [address] [facility] VITAMIN A 5 N N [place] [address] [facility] TOCOPHERO 5 N N L ALPHA COMMUNTIY COMMUNTIY VITAMIN E HOSPITA HOSPITA PREALBUMI 89947 [facility] N 5 N N [place] [address] [facility] [place] ANDREWS ABDOMINAL 5 RADIOLOGY RHO [place] W/[place] [address] [facility] THIAMINE- 5 N N VITAMIN COMMUNTIY COMMUNTIY B-[place] [address] [facility] PHOSPHORU 5 N N S COMMUNTIY COMMUNTI[place] [address] [facility] RETROPERI 5 [facility] TONEAL INC [place] [address] [place] [facility] KADIE RETROPERI 5 MEDICAL TONEAL IMAGING REAL TIME ASS W/IMAGE LIMITED PROTHROMB 88723 [facility] IN TIME 5 N N COMMUNTIY [place] [address] [facility] HEPATITIS 5 N N B COMMUNTIY COMMUNTIY SURFACE HOSPITA HOSPITA ANTIGEN HEPATITIS 64226 [facility] B CORE 5 N N ANTIBODY COMMUNTIY COMMUNTIY HBCAB HOSPITA HOSPITA TOTAL HEPATITIS 20330 [facility] B SURF 5 N N ANTIBODY COMMUNTIY COMMUNTIY HBSAB HOSPITA HOSPITA BLOOD 23958 [facility] COUNT 5 N N COMPLETE COMMUNTIY COMMUNTIY AUTOMATED HOSPITA HOSPITA HEPATITIS 18984 [facility] C 5 N N ANTIBODY COMMUNTIY COMMUNTIY HOSPITA HOSPITA COLLECTIO 51728 [facility] N VENOUS 5 N N BLOOD COMMUNTIY COMMUNTIY VENIPUNCT HOSPITA HOSPITA URE ANTINUCLE 67757 [facility] AR 5 N N ANTIBODIE COMMUNTIY COMMUNTIY S SANNA HOSPITA HOSPITA COMPREHEN 25265 [facility] SIVE 5 N N METABOLIC COMMUNTIY COMM[place]TI[place] [address] [facility] FERRITIN 5 N N COMMUNTIY COMMUNTIY HOSPITA HOSPITA IMMUNOASS 18276 [facility] AY 5 N N ANALYTE COMMUNTIY COMMUNTIY QUAL/SEMI HOSPITA [place] [address] [facility] IRON 5 N N COMMUNTI[place] [address] [facility] GAMMAGLOB 5 N N ULIN IGA COMMUNTIY COMMUNTIY IGD IGG HOSPITA HOSPITA IGM EACH IRON 40756 [facility] BINDING 5 N N CAPACITY COMMUNTIY COMMUNTIY HOSPITA HOSPITA ALPHA-1-A 46998 [facility] NTITRYPSI 5 N N N T[place] [address] [facility] ABDOMEN & 5 MEDICAL PELVIS IMAGING W/O ASS CONTRAST MATERIAL DUP-SCAN 33482 [facility] XTR VEINS 5 N N COMPLETE COMMUNTIY COMMUNTIY [place]OSP[place] [address] [facility] LIPASE 5 N N COMMUNTIY COMMUNTIY HOSPITA HOSPITA COMPREHEN 59024 [facility] SIVE 5 N N METABOLIC COMMUNTIY COMMUNTI[place] [address] [facility] AMYLASE 5 N N COMMUNTIY COMMUNTIY HOSPITA HOSPITA COLLECTIO 18484 [facility] N VENOUS 5 N N BLOOD COMMUNTIY COMMUNTIY VENIPUNCT HOSPITA HOSPITA URE BLOOD 29504 [facility] COUNT 5 N N COMPLETE COMMUNTIY COMMUNTIY AUTO&AUTO HOSPITA [place] [address] [facility] [place] SCALF HUBER TRACT 5 RADIOLOGY UPPER W/WO DELAYED IMAGES W/KUB LAPS 87893 [facility] SANCHEZ MICHELLE GSTRC 5 RSTRICTIV BARIATRIC PX SURGICAL LONGITUDI NAL GASTRECTO MY ANES IPR 18799 [facility] ANT UPPER 5 ANESTHESI ABDOMEN A GROUP LAPS PS GASTRIC RSTCV MO LAPAROSCO 4382 [facility] PIC 5 N N VERTICAL COMMUNTIY COMMUNTIY SLEEVE HOSPITA HOSPITA GASTRECTO MY OTHER 4513 [facility] ENDOSCOPY 5 N N OF SMALL COMMUNTIY COMMUNTIY HOSPITA HOSPITA INTESTINE APPLICATI 56482 [facility] ON 5 [facility] MODALITY INC INC 1/> AREAS HOT/COLD PACKS APPL 31280 [facility] MODALITY 5 [facility] 1/> AREAS INC INC ULTRASOUN D EA 15 MIN APPL 60475 [facility] MODALITY 5 [facility] 1/> AREAS INC INC ELEC STIMJ UNATTENDE D BLOOD 73637 [facility] COUNT 5 N N COMPLETE COMMUNTIY COMMUNTIY AUTOMATED HOSPITA HOSPITA GONADOTRO 19453 [facility] PIN 5 N N CHORIONIC COMMUNTIY COMMUNTIY HOSPITA HOSPITA QUALITATI VE COLLECTIO 10690 [facility] N VENOUS 5 N N BLOOD COMMUNTIY COMMUNTIY VENIPUNCT HOSPITA HOSPITA URE COMPREHEN 14103 [facility] SIVE 5 N N METABOLIC COMMUNTIY COMMUNTIY PANEL HOSPITA HOSPITA DUP-SCAN 54945 [facility] XTR VEINS 5 [facility] COMPLETE INC INC BILATERAL STUDY APPL 63543 [facility] MODALITY 5 [facility] 1/> AREAS INC INC ULTRASOUN D EA 15 MIN APPLICATI 63132 [facility] ON 5 [facility] MODALITY INC INC 1/> AREAS HOT/COLD PACKS APPL 32370 [facility] MODALITY 5 [facility] 1/> AREAS INC INC ELEC STIMJ UNATTENDE D THERAPEUT 33618 [facility] IC PX 1/> 5 [facility] AREAS INC INC EACH 15 MIN EXERCISES SUSCEPTIB 13245 [facility] LTY STDY 5 [facility] ANTIMICRB INC INC IAL MICRO/AGA R DILUTJ CUL BACT 03443 [facility] XCPT 5 [facility] URINE INC INC BLOOD/STO OL AEROBIC ISOL APPLICATI 77059 [facility] ON 5 [facility] MODALITY INC INC 1/> AREAS HOT/COLD PACKS APPL 59063 [facility] MODALITY 5 [facility] 1/> AREAS INC INC ULTRASOUN D EA 15 MIN APPL 85294 [facility] MODALITY 5 [facility] 1/> AREAS INC INC ELEC STIMJ UNATTENDE D THERAPEUT 13462 [facility] IC PX 1/> 5 [facility] AREAS INC INC EACH 15 MIN EXERCISES APPL 55628 [facility] MODALITY 5 [facility] 1/> AREAS INC INC IONTOPHOR ESIS EA 15 MIN APPL 85457 [facility] MODALITY 5 [facility] 1/> AREAS INC INC ELEC STIMJ UNATTENDE D APPL 31093 [facility] MODALITY 5 [facility] 1/> AREAS INC INC ULTRASOUN D EA 15 MIN APPLICATI 60291 [facility] ON 5 [facility] MODALITY INC INC 1/> AREAS HOT/COLD PACKS APPLICATI 91735 [facility] ON 5 [facility] MODALITY INC INC 1/> AREAS HOT/COLD PACKS APPL 31367 [facility] MODALITY 5 [facility] 1/> AREAS INC INC ULTRASOUN D EA 15 MIN APPL 82503 [facility] MODALITY 5 [facility] 1/> AREAS INC INC ELEC STIMJ UNATTENDE D APPL 39567 [facility] MODALITY 5 [facility] 1/> AREAS INC INC IONTOPHOR ESIS EA 15 MIN THERAPEUT 94835 [facility] IC PX 1/> 5 [facility] AREAS INC INC EACH 15 MIN EXERCISES ECG 91767 [facility] ROUTINE 5 N N ECG COMMUNTIY COMMUNTIY W/LEAST HOSPITA HOSPITA 12 LDS TRCG ONLY W/O I&R RADIOLOGI 83834 [facility] C EXAM 5 N N CHEST 2 COMMUNTIY COMMUNTIY VIEWS HOSPITA HOSPITA FRONTAL&[place] [address] [facility] THYROID 5 N N STIMULATI COMMUNTIY COMMUNTIY NG HOSPITA HOSPITA HORMONE TSH BLOOD 11360 [facility] COUNT 5 N N COMPLETE COMMUNTIY COMMUNTIY AUTOMATED HOSPITA HOSPITA THYROID 51572 [facility] HORM 5 N N UPTK/THYR COMMUNTIY COMMUNTIY OID HOSPITA HOSPITA HORMONE BINDING RATIO CUL 87994 [facility] PRSMPTV 5 N N PTHGNC COMMUNTIY COMMUNTIY ORGANISM HOSPITA HOSPITA SCRN W/[place] [address] [facility] THYROXINE 5 N N TOTAL COMMUNTIY COMMUNTIY HOSPITA HOSPITA LIPID 87196 [facility] PANEL 5 N N COMMUNTIY COMMUNTIY HOSPITA HOSPITA COLLECTIO 22169 [facility] N VENOUS 5 N N BLOOD COMMUNTIY COMMUNTIY VENIPUNCT HOSPITA HOSPITA URE COMPREHEN 99989 [facility] SIVE 5 N N METABOLIC COMMUNTIY COMMUNTIY PANEL HOSPITA HOSPITA PHYSICAL 63633 [facility] THERAPY 5 [facility] EVALUATIO INC INC N FIBRIN 21879 [facility] DGRADJ 5 [facility] PRODUCTS INC INC D-DIMER QUAL/SEMI GILBERT COLLECTIO 47117 [facility] N VENOUS 5 [facility] BLOOD INC INC VENIPUNCT URE URNLS DIP 26751 [facility] 5 [facility] STICK/TAB INC INC LET REAGENT AUTO MICROSCOP Y COMPREHEN 31967 [facility] SIVE 5 [facility] METABOLIC INC INC PANEL ECG 22917 [facility] ROUTINE 5 [facility] ECG INC INC W/LEAST 12 LDS TRCG ONLY W/O I&R ECG 60567 [facility] CHAVEZ JR ROUTINE 5 [facility] W/LEAST P 12 LDS I&[place] [address] [facility] TROPONIN 5 [facility] QUANTITAT INC INC SABIHA BLOOD 66256 [facility] COUNT 5 [facility] COMPLETE INC INC AUTO&AUTO DIFRNTL WBC RADIOLOGI 88279 [place] [facility] C EXAM 5 MEDICAL ADRIANNA CHEST 2 IMAGING VIEWS ASS FRONTAL&L ATERAL RADIOLOGI 74666 [place] [facility] C EXAM 5 MEDICAL ADRIANNA CHEST 2 IMAGING VIEWS ASS FRONTAL&[place] [address] [place] [facility] ANGIOGRAP 5 MEDICAL ADRIANNA HY CHEST IMAGING W/CONTRAS ASS T/NONCONT RAST BLOOD 29030 [facility] COUNT 5 [facility] COMPLETE INC INC AUTO&[place] [address] [facility] TROPONIN 5 [facility] QUANTITAT INC INC SABIHA ECG 98888 [facility] MATUTE ROUTINE 5 [facility] W/LEAST P 12 LDS I&R ONLY ECG 97054 [facility] [facility] ROUTINE 5 [facility] ECG INC INC W/LEAST 12 LDS TRCG ONLY W/O I&R FIBRIN 90813 [facility] [facility] DGRADJ 5 [facility] PRODUCTS INC INC D-DIMER QUAL/SEMI G[facility]ERT COMPREHEN 64690 [facility] SIVE 5 [facility] METABOLIC INC INC PANEL LOCM Q9967 [place] [facility] 300-399 5 [facility] MG/ML INC INC IODINE CONCENTRA TION PER ML RADEX 30404 [place] [facility] SHOULDER 4 MEDICAL COMPLETE IMAGING MINIMUM 2 ASS VIEWS LEVEL III 84678 SCALF LEI SCALF LEI SURG 4 PATHOLOGY GROSS&BRYCE ROSCOPIC EXAM REPAIR 63641 ATKINS ATKINS COMPLEX 4 TRA TRA SCALP/ARM /LEG 1.1-2.5 CM DESTRUCTI 02060 ATKINS ATKINS ON BENIGN 4 TRA [place] [address] [place] [address] [place] HEAD/BRAI 4 MEDICAL ADRIANNA N W/O IMAGING CONTRAST ASS MATERIAL THERAPEUT 24489 [facility] IC 4 [facility] INJECTION INC INC IV PUSH EACH NEW DRUG SPECIAL 76732 [facility] ER JR WANDA GROUP 1 MICROORGA NISMS I&R SPCL STN 67235 [facility]ICK[facility] 2 I&R 4 [facility] ER JR WANDA EXCPT MICROORG/ ENZY[place] [address] [facility] SURG 4 [facility] ER WANDA PATHOLOGY GROSS&BRYCE ROSCOPIC EXAM EGD 50102 [facility] SANCHEZ MICHELLE TRANSORAL 4 BIOPSY BARIATRIC SINGLE/MU SURGICAL LTIPLE ANES 10084 [facility] UPPER GI 4 ANESTHESI JOSE ANGEL ENDOSCOPY A GROUP PROXIMAL PS TO DUODENUM SPMTRY 70528 [facility] [facility] W/VC 4 [facility] EXPIRATOR INC INC Y ABHI W/WO MXML VOL VNTJ EXC B9 26162 ADVANCED SCALF LEI LESION 4 DERMATOLO MRGN XCP GY SK TG S/N/H/F/G 1.1-2.0CM LEVEL III 99034 SCALF LEI SCALF LEI SURG 4 PATHOLOGY GROSS&BRYCE ROSCOPIC EXAM REPAIR 99296 ADVANCED SCALF LEI COMPLEX 4 DERMATOLO SCALP/ARM GY /LEG 1.1-2.5 CM RADIOLOGI 11123 [facility] C EXAM 4 [facility] CHEST 2 INC INC VIEWS FRONTAL&L ATERAL REMOVAL 53963 ATKINS ATKINS SKN TAGS 4 TRA TRA SHIPMASTER FIBRQ TAGS ANY AREA UPW/15 CV STRS 21074 [place] MATUTE TST 4 [facility] RX CONT P ECG I&R ONLY CV STRS 46173 [place] [facility] TST 4 [facility] XERS&/OR INC INC RX CONT ECG TRCG ONLY ECHO 25018 MELANIE MARTINEZ TTHRC R-T 4 MEDICAL ALI 2D SERV W/WOM-MOD FOUNDATIO E COMPL SPEC&COLR D RADIOLOGI 51555 [facility] C EXAM 4 MEDICAL CARMEN CHEST 2 IMAGING VIEWS ASS FRONTAL&[place] [address] [facility] TROPONIN 4 [facility] QUANTITAT INC INC SABIHA BLOOD 88975 [facility] [facility] COUNT 4 [facility] COMPLETE INC INC AUTO&AUTO DIFRNTL WBC ECG 98205 [facility] ROUTINE 4 [facility] ECG INC INC W/LEAST 12 LDS TRCG ONLY W/O I&R ECG 80480 SCOTT CHAVEZ JR ROUTINE 4 DWI DWI ECG W/LEAST 12 LDS I&R ONLY RADIOLOGI 32233 [facility] [facility] C 4 [facility] EXAMINATI INC INC ON CHEST SINGLE VIEW FRONTAL BASIC 74760 [facility] [facility] METABOLIC 4 [facility] PANEL INC INC CALCIUM TOTAL CREATINE 82589 [facility] [facility] KINASE MB 4 [facility] FRACTION INC INC ONLY COMPREHEN 33551 [place] [facility] SIVE 4 [facility] METABOLIC INC INC PANEL CREATINE 57419 [facility] [facility] KINASE 4 [facility] TOTAL INC INC ECG 54707 [place] ROUTINE 4 [facility] ECG INC INC W/LEAST 12 LDS TRCG ONLY W/O I&R FIBRIN 84129 [place] [facility] DGRADJ 4 [facility] PRODUCTS INC INC D-DIMER QUAL/SEMI GILBERT ECG 52132 ANKUR ANKUR ROUTINE 4 BRYCE BRYCE ECG W/LEAST 12 LDS I&R ONLY BLOOD 40215 [facility] [facility] COUNT 4 [facility] COMPLETE INC INC AUTO&[place] [address] [facility] TROPONIN 4 [facility] QUANTITAT INC INC SABIHA RADIOLOGI 05896 CHANEL Morillo BEMICHAEL D C EXAM 4 CHEST 2 VIEWS FRONTAL&L ATERAL HEMOGLOBI 64899 COMBINED COMBINED N 4 PHYSICIAN PHYSICIAN GLYCOSYLA S LA S LA LANEY A1C GENERAL 06640 COMBINED COMBINED HEALTH 4 PHYSICIAN PHYSICIAN PANEL S LA S LA CYANOCOBA 50189 COMBINED COMBINED LYUBOV 4 PHYSICIAN PHYSICIAN VITAMIN S LA S LA B-12 25 26649 COMBINED COMBINED HYDROXY 4 PHYSICIAN PHYSICIAN INCLUDES S LA S LA FRACTIONS IF PERFORMED LIPID 06672 [facility] COMBINED PANEL 4 [place] [address] COMBINED COMBINED FREE 4 PHYSICIAN PHYSICIAN THYROXINE S LA S LA SEDIMENTA 23878 COMBINED COMBINED TION RATE 4 PHYSICIAN PHYSICIAN RBC S LA S LA NON-AUTOM ATED COMPUTER- 32340 [facility] [facility] AIDED 4 [facility] DETECTION INC INC SCREENING MAMMOGRAP HY SCREENING G0202 [place] [facility] 4 [facility] MAMMOGRAP INC INC HY WILBERT INCL CAD WHEN PERFORMD LIPID 13744 [facility] QUEST PANEL 4 DIAGNOSTI DIAGNOSTI CS CS IIV3 43416 DHS/CO [place] VACCINE 9 HEALTH CO [facility] VIRUS 0.5 BANK ACCT ML DOSAGE IM USE RADEX HIP 71631 [place] 9 [facility] UNILATERA INC INC L COMPLETE MINIMUM 2 VIEWS RADEX 09603 SEJAL SUMA, SPINE 9 MEDICAL MAX P LUMBOSACR IMAGING AL ASSOCIATE MINIMUM 4 S VIEWS RADEX 95863 KIMBERLEE SANCHEZEY, SPINE 9 [facility] LUMBSCRL CORPORATI COMPL ON W/BENDING VIEWS MIN 6 RADIOLOGI 00564 SEJAL SUMA C 9 MEDICAL MAX P EXAMINATI IMAGING ON PELVIS ASSOCIATE 1/2 S VIEWS Encounters Encounter Start End Date Code Location Performer Type Date OFFICE 89389 [facility] 7 7 [facility] T VISIT INTERNAL 15 MED MINUTES EMERGENCY 64275 [facility] 7 7 PHYSICIAN VISIT S, [facility] HIGH SEVERITY& THREAT [facility] OFFICE 91071 [place] [facility] 7 7 [facility] T [facility]ISIT 5 INC MINUTES [facility] [place] [facility] 7 7 [facility]EN [facility] T EMERGENCY 65901 [facility] DEPT 7 7 PHYSICIAN VISIT S, [facility] HIGH SEVERITY& THREAT [facility]J EMERGENCY 98839 [place] 7 7 [facility] DEPARTMEN INC T VISIT MODERATE SEVERITY [facility] [place] [facility] 7 7 [facility]EN [facility] - 7 7 HEALTH OUTPATIEN [facility] OFFICE 66614 [place] ARSLAN [facility] 7 7 JAS[facility] T VISIT INTERNAL 15 MED MINUTES [facility] - 7 7 [facility]ALTH OUTPATIEN [place] T OFFICE 74296 [place] CELI OUTPATIEN 7 7 [facility] T VISIT HOSPITAL 10 P MINUTES OFFICE 15491 [facility] FUNES OUTPATIEN 7 7 HEALTH T VISIT MEDICAL 25 GROUP MINUTES OFFICE 65253 [place] [facility] 7 7 [facility] T VISIT INC 10 MINUTES [facility] [place] [facility] INC T OFFICE 00101 YVETTE AVINA OUTPATIEN 7 7 MD RHIANNON, T VISIT PSC 15 MINUTES [facility] [place] [facility] T OFFICE 30909 [place] [facility] 7 7 [facility] T VISIT 5 INC MINUTES OFFICE 06707 [place] WEISS JR OUTPATIEN 7 7 [facility] VISIT HOSPITAL 10 P MINUTES EMERGENCY 43022 [facility]CU[facility] DEPT 7 7 PHYSICIAN VISIT S, [facility] HIGH SEVERITY& THREAT FUNJ EMERGENCY 84433 [place] 7 7 [facility] DEPARTMEN INC T VISIT LOW/MODER SEVERITY [facility] [place] [facility] 7 7 [facility] OUTPATI[facility] INC T [facility] [place] [facility] 7 [facility] INC T OFFICE 00842 [place] CELI OUTPATIEN 7 7 [facility] VISIT [facility] 10 P MINUTES [facility] [place] [facility] 7 7 [facility] OUTPATIEN INC T EMERGENCY 33007 [facility] SOTOMAYOR 7 7 PHYSICIAN JR DEPARTMEN S, [facility] T VISIT HIGH/URGE NT SEVERITY [facility] [place] [facility] 7 7 [facility] OUTPATIEN INC T OFFICE 74541 [facility] GIOVANI [facility] 7 7 [facility] T VISIT INTERNAL 15 MED MINUTES PERIODIC 31177 [facility] KAM PREVENTIV 7 7 PHYSICIAN E MED EST S GROUP PATIENT [id number] [facility] [place] - 7 7 [facility] OUTPATIEN INC T OFFICE 65811 [facility] MAEGAN RECIOEN 7 7 PHYSICIAN T VISIT S GROUP 15 MINUTES EMERGENCY 82208 [facility] JAQUEZ 7 7 PHYSICIAN DEPARTMEN S, [facility] T VISIT HIGH/URGE NT SEVERITY OFFICE 24724 [place] ALATORRE OUTPATIEN 7 7 [facility] T VISIT HOSPITAL 10 P MINUTES [facility] [place] [facility] 7 7 [facility]PATIEN INC T [facility] [place] [facility] 7 [facility] OUT[facility]IEN INC T OFFICE 32376 [facility] JURADO OUTPATIEN 7 7 MD RHIANNON, T VISIT PSC 10 MINUTES [facility] [place] [facility] 7 [facility] INC T OFFICE 95062 [facility] KIMBERLY OUTPATIEN 7 7 PHYSICIAN T VISIT S GROUP 25 MINUTES [facility] [place] [facility] 7 [facility]EN INC T [facility] [place] [facility] 7 [facility] INC T OFFICE 58756 [place] [facility] 7 7 [facility] T VISIT 5 INC MINUTES [facility] [place] [facility] 7 7 [facility] OUT[facility]IEN INC T OFFICE 49334 [facility]TE MAXIMOPERCY OUTPATIEN 7 7 MD RHIANNON, T NEW 30 PSC MINUTES OFFICE 99658 [facility] ISSA OUTPATIEN 7 7 PHYSICIAN T VISIT S GROUP 10 MINUTES [facility] [place] [facility] 7 [facility] OUT[facility]EN INC T EMERGENCY 07114 [place] 7 7 [facility] DEPARTMEN INC T VISIT HIGH/URGE NT SEVERITY OFFICE 48799 [facility] KIMBERLY OUTPATIEN 7 7 PHYSICIAN T VISIT S GROUP 25 MINUTES [facility] [place] [facility] 7 7 [facility] OUTPATIEN INC T OFFICE 90301 [facility] BESSON OUTPATIEN 7 7 [facility] T VISIT INTERNAL 15 MED MINUTES OFFICE 97495 [facility] KIMBERLY OUTPATIEN 7 7 PHYSICIAN T VISIT S GROUP 25 MINUTES [facility] [place] [facility] 7 7 [facility] OUTPATIEN INC T OFFICE 02749 [facility] ADAMS OUTPATIEN 7 7 [place] T VISIT ORTHOPAED 15 IC MINUTES EMERGENCY 10123 [place] 7 7 [facility] DEPARTMEN INC T VISIT HIGH/URGE NT SEVERITY [facility] [place] [facility] 7 7 [facility] OUTPATIEN INC T EMERGENCY 34694 [facility] ARMIJO DEPT 7 7 PHYSICIAN VISIT S, PLL[facility] HIGH SEVERITY& THREAT FUNCJ OFFICE 65401 [place] GIOVANI OUTPATIEN 7 7 [facility] T VISIT INTERNAL 25 MED MINUTES OFFICE 05189 [place] CHAND 7 7 [facility] T VISIT 5 INC MINUTES [facility] [place] [facility]IEN INC T OFFICE 17735 ANGELITO DUARTE OUTPATIEN 7 7 [place] T NEW 30 ORTHOPAED MINUTES IC [facility] [place] [facility] 7 7 [facility] OUT[facility]IEN INC T EMERGENCY 71305 [facility] [facility] DEPT 7 7 PHYSICIAN U VISIT S, PLLC HIGH SEVERITY& THREAT FUNCJ EMERGENCY 58651 [place] 7 7 [facility] DEPART[facility] INC T VISIT LOW/MODER SEVERITY [facility] [place] [facility] T [facility] [place] [facility] OUT[facility] INC T EMERGENCY 10431 [place] 7 7 [facility] DEPARTMEN INC T VISIT MODERATE SEVERITY EMERGENCY 60794 [place] 7 7 [facility] INC T VISIT LOW/MODER SEVERITY [facility] [place] [facility] OUTPATIEN INC T EMERGENCY 24751 SMILEY PASCUAL 7 7 PHYSICIAN DEPARTMEN S, PLLC T VISIT HIGH/URGE NT SEVERITY [facility] [place] [facility] OUT[facility] INC T OFFICE 44484 [place] [facility] 7 7 [facility] T VISIT 5 INC MINUTES OFFICE 05999 [facility] [facility] 7 7 [facility] T VISIT INTERNAL 15 MED MINUTES EMERGENCY 21059 [facility] 7 7 [facility] T VISIT [facility] MODERATE SEVERITY [facility] [place] [facility] 7 7 [facility] T EMERGENCY 81391 [place] 7 7 [facility] T VISIT LOW/MODER SEVERITY OFFICE 63475 [place] [facility] 7 7 [facility] T VISIT 5 INC MINUTES [facility] [place] [facility] OUTPATIEN INC T OFFICE 11885 [place] 7 7 [facility] T VISIT INTERNAL 15 MED MINUTES OFFICE 54364 [place] [facility] 7 7 [facility] T VISIT 5 INC MINUTES [facility] [place] [facility] OUTPATIEN INC T EMERGENCY 32086 SMILEY MEDEROS 7 7 PHYSICIAN DEPARTMEN S, PLLC T VISIT MODERATE SEVERITY [facility] [place] [facility] OUTPATIEN INC T OFFICE 36901 [place] [facility] 7 7 [facility] T VISIT 5 INC MINUTES OFFICE 89514 [place] 7 7 VALLEY T VISIT INTERNAL 25 MED MINUTES OFFICE 59638 [place] [facility] 7 7 [facility] T NEW 10 INC MINUTES [facility] [place] [facility] 7 7 [facility] OUTPATIEN INC T OFFICE 47834 [place] JASSO OUTPATIEN 7 7 T VISIT 25 MINUTES HOSPITAL [facility] - 7 7 HEALTH OUTPATIEN [facility] EMERGENCY 46168 [place] 7 7 [facility] T V[facility]IT LIMITED/M INOR PROB [facility]OSP[facility] [place] - 7 7 [facility] OUTPATIEN [facility] [place] - 7 7 [facility] EMERGENCY 00361 [place] 7 7 [facility] T VISIT LOW/MODER SEVERITY EMERGENCY 52233 [place] 7 7 [facility] T VISIT LIMITED/M INOR PROB EMERGENCY 37210 SMILEY PASCUAL 7 7 PHYSICIAN DEPARTMEN S, [facility] T VISIT MODERATE SEVERITY [facility] [place] - 7 7 [facility] - 7 7 HEALTH OUTPATIEN [facility] - 7 7 HEALTH OUTPATIEN [facility] [place] - 6 6 [facility] EMERGENCY 42933 [place] 6 6 [facility] T VISIT HIGH/URGE NT SEVERITY OFFICE 12221 [facility] 6 6 [facility] VISIT INTERNAL 15 MED MINUTES [facility] [place] - 6 6 [facility] EMERGENCY 24326 SMILEY JAQUEZ 6 6 PHYSICIAN DEPARTMEN S, [facility] T VISIT HIGH/URGE NT SEVERITY EMERGENCY 60223 [place] 6 6 [facility] T VISIT MODERATE SEVERITY EMERGENCY 88662 SMILEY ARMIJO 6 6 PHYSICIAN DEPARTMEN S, [facility] T VISIT MODERATE SEVERITY EMERGENCY 89543 [place] 6 6 [facility] T VISIT LOW/MODER SEVERITY [facility] [place] [facility] 6 6 [facility] OUTPATIEN INC T EMERGENCY 47958 SMILEY PASCUAL 6 6 PHYSICIAN BRYCE FUENTESMETHODIST [facility] S, PLLC T VISIT MODERATE SEVERITY OFFICE 13455 IFEANYI SUGGS OUTPATIEN 6 6 ANG ANG T VISIT 10 MINUTES OFFICE 24998 [place] A[facility] OUTPATIEN 6 6 VALLEY OFELIA T VISIT INTERNAL 15 MED MINUTES OFFICE 85581 WENDY SANCHEZ MICHELLE OUTPATIEN 6 6 T VISIT BARIATRIC 25 SURGICAL MINUTES [facility] [place] - 6 6 [facility] OUTPATIEN INC T EMERGENCY 35383 [place] 6 6 [facility] DEPARTMEN INC T VISIT LOW/MODER SEVERITY EMERGENCY 67836 SMILEY SOTOMAYOR, 6 6 PHYSICIAN JR MANUELITO FUENTESMETHODIST [facility], [facility] T [facility]IS[facility] HIGH/URGE NT SEVERITY EMERGENCY 22318 SMILEY PASCUAL 6 6 PHYSICIAN BRYCE [facility] S, PLLC T VISIT MODERATE SEVERITY OFFICE 69185 [facility] FALLUJI OUTPATIEN 6 6 [facility] T VISIT MEDICAL 15 G MINUTES [facility]OSP[facility] [place] - 6 6 [facility] OUTPATIEN INC T OFFICE 02772 [facility] HUMPHREY OUTPATIEN 6 6 PHYSICIAN MEAGAN T VISIT S GROUP 15 MINUTES [facility] [place] - 6 6 [facility] OUTPATIEN INC T OFFICE 65206 [facility] ISSA OUTPATIEN 6 6 PHYSICIAN JARON T VISIT S GROUP 10 MINUTES [facility] [place] - 6 6 [facility] OUTPATIEN INC T [facility] [place] [facility] 6 6 [facility] OUTPATIEN INC T EMERGENCY 61315 [place] 6 6 [facility] DEPARTMEN INC T VISIT MODERATE SEVERITY OFFICE 92236 [facility] ISSA OUTPATIEN 6 6 PHYSICIAN JARON T VISIT S GROUP 10 MINUTES OFFICE 12287 [place] ALATORRE OUTPATIEN 6 6 [facility] T VISIT HOSPITAL 10 P MINUTES OFFICE 15274 CHRISTIAN MCKENNA OUTPATIEN 6 6 HEALTH IV HEN T VISIT MEDICAL 15 GROUP MINUTES OFFICE 84298 PERLA RODRIGUEZ [facility] OUT[facility] 6 6 GROUND T VISIT FAMILY 25 CLINI MINUTES OFFICE 38593 [facility] T VISIT 5 HLTH DEPT HLTH DEPT MINUTES [facility] [place] - 6 6 [facility] OUTPATIEN INC T EMERGENCY 17636 [place] 6 6 [facility] DEPARTMEN INC T VISIT LOW/MODER SEVERITY EMERGENCY 70538 SMILEY ARMIJO 6 6 PHYSICIAN CASANDRA [facility]ARC[facility] S [facility] T VISIT HIGH/URGE NT SEVERITY OFFICE 26724 [facility] 6 6 [facility] T VISIT TH DEPT [facility] DEPT 15 [facility] [place] [facility] 6 6 [facility] OUTPATIEN INC T OFFICE 83088 [facility] KIMBERLY OUTPATIEN 6 6 PHYSICIAN MAT T VISIT S GROUP 25 MINUTES OFFICE 10402 [facility] SANCHEZ OUTPATIEN 6 6 T VISIT BARIATRIC 25 SURGICAL MINUTES EMERGENCY 95254 SMILEY PASCUAL 6 6 PHYSICIAN BRYCE GARCIA S PLLC T VISIT MODERATE SEVERITY OFFICE 55445 [facility] KIMBERLY OUTPATIEN 6 6 PHYSICIAN MAT T NEW 45 S GROUP MINUTES OFFICE 31641 ALLERGY ROSENTHAL MAR OUTPATIEN 6 6 PARTNERS T VISIT OF [place] 40 CO MINUTES EMERGENCY 48037 SMILEY JIMENEZ 6 6 PHYSICIAN Taylor GARCIA S PLLC T VISIT HIGH/URGE NT SEVERITY [facility] [place] [facility] 6 6 [facility] OUTPATIEN INC T EMERGENCY 20679 SMILEY PASCUAL 6 6 PHYSICIAN BRYCE [facility]PARTMEN S, [facility] T VISIT MODERATE SEVERITY EMERGENCY 17885 [place] 6 6 [facility] DEPARTMEN INC T VISIT LOW/MODER SEVERITY [facility] [place] - 6 6 [facility] OUTPATIEN INC T OFFICE 47667 [facility] 6 6 N T VISIT NEUROLOGY 10 MINUTES [facility] [place] [facility] 6 6 [facility] OUTPATIEN INC T EMERGENCY 60439 SMILEY SOTOMAYOR, 6 6 PHYSICIAN JR MANUELITO GARCIA S, [facility] T VISIT MODERATE SEVERITY [facility] [place] - 6 6 [facility] OUTPATIEN INC T EMERGENCY 07454 SMILEY PASCUAL DEPT 6 6 PHYSICIAN BRYCE VISIT S, [facility] HIGH SEVERITY& THREAT FUNCJ OFFICE 43528 [place] [facility] OUTPATIEN 6 6 [facility] VISIT HOSPITAL 10 P MINUTES EMERGENCY 17739 [place] 6 6 [facility] T VISIT MODERATE SEVERITY [facility] [place] - 6 6 [facility] OUTPATIEN [facility] T EMERGENCY 82478 SMILEY SOTOMAYOR, 6 6 PHYSICIAN JR MANUELITO GARCIA S, [facility] T VISIT HIGH/URGE NT SEVERITY OFFICE 23714 [place] WE[facility] OUTPATIEN 6 6 [facility] T VISIT HOSPITAL 10 P MINUTES EMERGENCY 22372 SMILEY PASCUAL DEPT 6 6 PHYSICIAN BRYCE [facility]ISIT S, [facility] HIGH SEVERITY& THREAT FUNCJ OFFICE 69148 ALLERGY ROSENTHAL MAR CONSULTAT 6 6 PART[facility]ERS [facility] [place] NEW/ESTAB CO PATIENT 60 MIN EMERGENCY 14587 SMILEY PASCUAL 6 6 PHYSICIAN BRYCE DEPARTMEN S, [facility] T VISIT MODERATE SEVERITY EMERGENCY 22702 SMILEY PASCUAL DEPT 6 6 PHYSICIAN BRYCE VISIT S, PLLC HIGH SEVERITY& THREAT FUNCJ [facility]OS[facility] [place] - 6 6 [facility] OUTPATIEN INC T EMERGENCY 01704 SMILEY SUGGS [facility] 6 6 PHYSICIAN DEPARTMEN S, PLLC T VISIT LOW/MODER SEVERITY OFFICE 18042 [facility] OUTPATIEN 6 6 PHYSICIAN T VISIT S GROUP 25 MINUTES [facility]OSP[facility] [place] [facility] 6 6 [facility] OUTPATIEN INC T [facility]ERGENCY 79923 [facility] 6 PHYSICIAN BRYCE DEPARTMEN S, PLLC T VISIT MODERATE SEVERITY EMERGENCY 15969 [place] 6 6 [facility] DEPARTMEN INC T VISIT LOW/MODER SEVERITY HOSPITAL [facility] 6 6 N OUTPATIEN COMMUNTIY T HOSPITA OFFICE 35164 [facility] ISSA [facility] 6 6 PHYSICIAN JARON T NEW 20 S GROUP MINUTES EMERGENCY 88599 SMILEY ARMIJO DEPT 6 6 PHYSICIAN CASANDRA VISIT S, PLLC HIGH SEVERITY& THREAT FUNCJ EMERGENCY 45703 SMILEY SANCHEZEY 6 6 PHYSICIAN BRYCE DEPARTMEN S, PLLC T VISIT HIGH/URGE NT SEVERITY HOSPITAL [facility] 6 6 N OUTPATIEN COMMUNTIY T HOSPITA OFFICE 46465 [facility] 6 T VISIT BARIATRIC 25 SURGICAL MINUTES EMERGENCY 12958 SMILEY PASCUAL DEPT 6 6 PHYSICIAN BRYCE VISIT S, PLLC HIGH SEVERITY& THREAT FUNCJ EMERGENCY 85680 ANGELITO [facility] 6 6 EMERGENCY HOW DEPARTMEN PHYS PSC T VISIT MODERATE SEVERITY [facility]OSPITAL [facility] - 6 6 HEALTH OUTPATIEN [place] T EMERGENCY 38048 [place] 6 6 [facility] DEPARTMEN INC T VISIT LOW/MODER SEVERITY [facility] [place] [facility] 6 6 [facility] OUTPATIEN [facility] T EMERGENCY 73553 SMILEY BAGLEY DEPT 6 6 PHYSICIAN FOR VISIT S, PLLC HIGH SEVERITY& THREAT [facility] [place] - 6 6 [facility] OUTPATIEN INC T EMERGENCY 11984 SMILEY PASCUAL 6 6 PHYSICIAN BRYCE DEPARTMEN S, PLLC T VISIT HIGH/URGE NT SEVERITY EMERGENCY 46500 SMILEY SUGGS [facility] 6 6 PHYSICIAN DEPARTMEN S, PLLC T VISIT HIGH/URGE NT SEVERITY EMERGENCY 97827 [facility] 6 6 N DEPARTMEN COMMUNTIY T VISIT [facility] HIGH/URGE NT SEVERITY [facility] [place] [facility] 6 6 [facility] OUTPATIEN [facility] T EMERGENCY 82772 SMILEY PASCUAL DEPT 6 6 PHYSICIAN BRYCE VISIT S, PLLC HIGH SEVERITY& THREAT [facility] OFFICE 81302 [facility] 6 6 N ION NEUROLOGY NEW/ESTAB PATIENT 60 MIN OFFICE 05339 [facility] OUT[facility]IEN 6 6 MATTI MATTI T NEW 30 MINUTES OFFICE 71255 SCALF LEI SCALF LEI OUTPATIEN 6 6 T VISIT 25 MINUTES EMERGENCY 10097 SMILEY PASCUAL DEPT 6 6 PHYSICIAN BRYCE VISIT S, PLLC HIGH SEVERITY& THREAT COUNTS INCLUDE 234 [facility] 34380 [place] A[facility]PATIEN 6 6 [facility] T VISIT INTERNAL 15 MED MINUTES HOSPITAL [facility] - 6 6 HEALTH OUTPATIEN [facility] [place] - 6 6 [facility] OUTPATIEN INC T EMERGENCY 58578 SMILEY PASCUAL DEPT 6 6 PHYSICIAN BRYCE VISIT S, PLLC HIGH SEVERITY& THREAT FUNCJ OFFICE 87862 CHRISTIAN BOLIEK OUTPATIEN 6 6 HEALTH KADIE T VISIT MEDICAL 15 GROUP MINUTES OFFICE 04147 WENDY SANCHEZ MICHELLE OUTPATIEN 6 6 T VISIT BARIATRIC 25 SURGICAL MINUTES [facility] [place] [facility] 6 6 [facility] OUTPATIEN INC T OFFICE 33275 [place] [facility] OUTPATI[facility] 6 6 VALLEY OFELIA T VISIT INTERNAL 15 MED MINUTES INITIAL 98824 [facility] PREVENTIV 6 6 PHYSICIAN E S GROUP MEDICINE NEW PATIENT 40-64YRS OFFICE 92692 CHRISTIAN BOLIEK OUTPATIEN 6 6 PRIMARY KADIE T VISIT CARE OF 15 BRYCE [facility] [place] - 6 6 [facility] OUTPATIEN INC T OFFICE 65542 [place] A[facility]LNA OUTPATIEN 6 6 VALLEY OFELIA T VISIT INTERNAL 15 MED MINUTES [facility] [place] - 6 6 [facility] OUTPATIEN INC T OFFICE 04574 WENDY SANCHEZ MICHELLE OUTPATIEN 5 5 T VISIT BARIATRIC 25 SURGICAL MINUTES OFFICE 43137 ATKINS ATKINS OUTPATIEN 5 5 TRA TRA T VISIT 25 MINUTES PERIODIC 51000 [facility] E MED EST HLTH DEPT HLTH DEPT PATIENT JAZZ JAZZ 40-64YRS OFFICE 38930 WENDY SANCHEZ MICHELLE OUTPATIEN 5 5 T VISIT BARIATRIC 15 SURGICAL MINUTES [facility] [place] - 5 5 [facility] OUTPATIEN INC T [facility] [place] - 5 5 [facility] OUTPATIEN INC T OFFICE 34042 [place] A[facility] OUTPATIEN 5 5 VALLEY OFELIA T NEW 30 INTERNAL MINUTES MED OFFICE 12337 [facility] PETTEY OUTPATIEN 5 5 PHYSICIAN JAM T VISIT S GROUP 15 MINUTES OFFICE 60126 GASTROENT CASE JUS OUTPATIEN 5 5 EROLOGY T VISIT AND 15 HEPATOL MINUTES OFFICE 87791 [facility] OUTPATI[facility] 5 5 HEALTH KADIE T VISIT MEDICAL 10 GROUP MINUTES [facility] - 5 5 N [facility]PAT[facility]EN [facility]TIY [facility] 50329 [place] 5 5 [facility] DEPARTMEN INC T VISIT HIGH/URGE NT SEVERITY [facility] [place] [facility] 5 5 [facility] OUTPATIEN INC T HOSPITAL [facility] 5 5 N OUTPATIEN COMMUNTIY T HOSPITA OFFICE 71720 GASTROENT CASE JUS OUTPATIEN 5 5 EROLOGY T NEW 45 AND MINUTES HEPAT [facility] [place] - 5 5 [facility] OUTPATIEN INC T [facility] [place] [facility] 5 5 [facility] OUTPATIEN INC T EMERGENCY 48646 [place] 5 5 [facility] DEPARTMEN INC T VISIT LOW/MODER SEVERITY OFFICE 01986 DANIEL SANCHEZ OUTPATIEN 5 5 HUBER HUBER T VISIT 15 MINUTES [facility]OSP[facility] [place] - 5 5 [facility] OUTPATIEN INC T EMERGENCY 43273 [place] 5 5 [facility] DEPARTMEN INC T VISIT MODERATE SEVERITY [facility] 5 5 N OUTPATIEN COMMUNTIY T [facility] [place] - 5 5 N OUTPATIEN COMMUNTIY [facility] - 5 5 N INPATIENT COMMUNTIY [facility] [place] - 5 5 [facility] OUTPATIEN INC T OFFICE 52881 [facility] DANIEL MARTINEZ OUTPATIEN 5 5 T VISIT BARIATRIC 40 SURGICAL MINUTES OFFICE 18608 DANIEL ROBERTSBING OUTPATIEN 5 5 HUBER HUBER T VISIT 15 MINUTES [facility] [place] - 5 5 [facility] OUTPATIEN INC T EMERGENCY 21412 [place] 5 5 [facility] DEPARTMEN INC T VISIT LOW/MODER SEVERITY [facility] [place] - 5 5 [facility] OUTPATIEN INC T [facility] 5 5 N OUTPATIEN COMMUNTIY [facility] [place] [facility] 5 [facility] OUTPATIEN INC T [facility] [place] [facility] 5 5 [facility] OUTPATIEN INC T OFFICE 55834 [place] ROQUEIMONE OUTPATIEN [address] MINUTES P OFFICE 58447 MELANIE NOGUEIRA OUTPATIEN 5 5 MEDICAL JACOBY T VISIT SERV 15 FOUNDATIO MINUTES N OFFICE 97892 [place] WEISS JR OUTPATIEN [address] MINUTES P OFFICE 92875 [facility] CHRISTOPHERTEMago OUTPATIEN 5 5 PHYSICIAN JAM T NEW S GROUP MINUTES OFFICE 01979 [facility] 5 5 [facility] MEDICAL NEW/ESTAB G PATIENT 60 MIN OFFICE 98456 DANIEL SANCHEZ OUTPATIEN 5 5 HUBER HUBER T VISIT 15 MINUTES EMERGENCY 76120 [place] ESCOTO 5 5 [facility] T VISIT P MODERATE SEVERITY EMERGENCY 62232 [place] 5 5 [facility] DEPARTMEN INC T VISIT HIGH/URGE NT SEVERITY [facility] [place] - 5 5 [facility] OUTPATIEN INC T EMERGENCY 59386 [place] 5 5 [facility] DEPARTMEN INC T VISIT HIGH/URGE NT SEVERITY [facility] [place] - 5 5 [facility] OUTPATIEN INC T OFFICE 37527 DANIEL DANIEL CHAND 5 5 HUBER HUBER T VISIT 15 MINUTES OFFICE 00592 ARMANDOBING DANEIL CHAND 4 4 HUBER HUBER T VISIT 15 MINUTES EMERGENCY 45557 [place] 4 4 [facility] T VISIT LOW/MODER SEVERITY [facility] [place] - 4 4 [facility] OUTPATIEN [facility] T OFFICE 30015 DANIEL CHAND 4 4 HUBER HUBER T VISIT 15 MINUTES EMERGENCY 57144 [facility] DEPT 4 4 ROS[place] VISIT EMERGENCY HIGH PHYS SEVERITY& THREAT [facility] [place] [facility] OUTPATIEN [facility] [place] [address] 4 N [facility] H[facility] 58782 DANIEL CHAND 4 4 HUBER HUBER T VISIT 15 MINUTES OFFICE 47767 MONALISA CHAPIN CONSULTAT 4 4 KADIE ION CARDIOLOG NEW/ESTAB Y AT CENT PATIENT 40 MIN [facility] [place] - 4 4 [facility] OUTPATIEN [facility] T OFFICE 62816 MELANIE NOGUEIRA CONSULTAT 4 4 MEDICAL JAM ION SERV NEW/ESTAB FOUNDATIO PATIENT N 60 MIN [facility]OSP[facility] [place] - 4 4 [facility] OUTPATIEN INC T OFFICE 28797 DANIEL CHAND 4 4 HUBER HUBER T VISIT 15 MINUTES OFFICE 80972 [facility] 4 4 [facility] T VISIT MEDICAL 15 G MINUTES OFFICE 80099 ATKINS ATKINS CONSULTAT 4 4 TRA TRA ION NEW/ESTAB PATIENT 40 MIN [facility]OSP[facility] [place] - 4 4 [facility] OUTPATIEN INC T OFFICE 51076 [facility] F[facility] OUTPATIEN 4 4 [facility] T NEW 30 MEDICAL MINUTES G EMERGENCY [address] [facility] 4 4 [facility] VISIT EMERGENCY HIGH PHYSI SEVERITY& THREAT FUNCJ EMERGENCY 24287 HORTENCIA HUGHES DEPT 4 4 VISIT HIGH SEVERITY& THREAT FUNCJ EMERGENCY 94987 [place] 4 4 [facility] DEPARTMEN INC T VISIT MODERATE SEVERITY [facility] [place] - 4 4 [facility] OUTPATIEN INC T [facility] [place] - 4 4 [facility] OUTPATIEN INC T OFFICE 72519 ARMANDOBING ROBERTSBING OUTPATIEN 4 4 HUBER HUBER T VISIT 15 MINUTES EMERGENCY 12130 ANKUR PASCUAL DEPT 4 4 BRYCE BRYCE VISIT HIGH SEVERITY& THREAT FUNJ EMERGENCY 70858 [place] 4 4 [facility] DEPARTMEN INC T VISIT HIGH/URGE NT SEVERITY OFFICE 71664 SANCHEZ MICHELLE SANCHEZ MICHELLE CONSULTAT 4 4 ION NEW/ESTAB PATIENT 80 MIN OFFICE 96987 DANIEL SANCHEZ OUTPATIEN 4 4 HUBER HUBER T NEW 30 MINUTES [facility] [place] - 4 4 [facility] OUTPATIEN INC T OFFICE 43380 MAEGAN ISSA OUTPATIEN 4 4 JARON JARON T VISIT 5 MINUTES OFFICE 29076 ISSAKIMBERLY ISSA OUTPATIEN 4 4 JARON JARON T NEW 30 MINUTES Emergency PATRIC Burnett MD (ER) 4 16:35 4 17:31 [facility] Emergency PATRIC BURNETT (ER) 3 16:45 3 18:19 [facility] [place] - 9 9 [facility] OUTPATIEN INC T EMERGENCY 31932 KIMBERLEE PASCUAL, 9 9 [facility] T VISIT ON HIGH/URGE NT SEVERITY EMERGENCY 77535 [place] 9 9 [facility] INC T VISIT LOW/MODER SEVERITY
--- OUTSIDE RECORDS SUMMARY | 2017-06-30 23:27 | External Medical Summary Rpt ---
Author Author , YENNY RAMON Address Unknown Phone [email or web address] Providers Care Shank Rander Name Role Phone ALFARIS MOH, ALFARIS Unavailable Unavailable [facility] Unavailable [place]available [place], [facility] [place] YVETTE JURADO MD, PSC, Unavailable Unavailable YVETTE JURADO MD, PSC ARNOLD HUBER, ARNOLD Unavailable Unavailable HUBER ARNOLD HUBER, ARNOLD Unavailable Unavailable HUBER ATKINS TRA, ATKINS Unavailable Unavailable TRA ATKINS TRA, ATKINS Unavailable Unavailable TRA MICHELLE ALI, MICHELLE Unavailable Unavailable ALI [facility] Unavailable Unavailable [place], [facility] Unavailable Unavailable MEDICAL GROUP, [facility] Un[facility] Un[facility], [facility] Unavailable Unavailable OF ABISAI, [facility] Unavailable Unavailable BEINEKE D, BEINEKE D Unavailable Unavailable BEINEKE CARMEN, BEINEKE Unavailable Unavailable CARMEN DUMONT HOW, DUMONT Unavailable Unavailable HOW BESSON, BESSON Unavailable Unavailable BESSON DOMINIQUE, BESSON Unavailable Unavailable DOMINIQUE [facility] Unavailable Unavailable [facility], [facility] BOLIEK KADIE, BOLIEK Unavailable Unavailable KADIE CERRATO, CERRATO Unavailable Unavailable CERRATO ALL, CERRATO ALL Unavailable Unavailable [facility] Unavailable Unavailable [facility] Unavailable Unavailable SERVICE, [facility] Unavailable Unavailable SERVICE, [facility] BUX, BUX Unavailable Unavailable [...] Unavailable [facility], [facility] Unavailable Unavailable HOSPITA, [facility] Unavailable [facility]available HOSPITA, [facility] RODRIGUEZ TRI, RODRIGUEZ TRI Unavailable Unavailable ANDREWS RHO, ANDREWS Unavailable Unavailable [facility] Unavailable Unavailable [place], [facility] Unavailable Unavailable INC, [facility] Unavailable Unavailable [facility]PITAL P, [facility] BOYER CHRISTEL, BOYER CHRISTEL Unavailable Unavailable BOYER CHRISTEL, BOYER CHRISTEL Unavailable Unavailable [facility], Unavailable Unavailable [facility] JAQEUZ, JAQUEZ Unavailable Unavailable VAUGHN TERA, VAUGHN Unavailable Unavailable TERA ADAMS, ADAMS Unavailable Unavailable [facility], Unavailable Unavailable [facility] FELICIA DUARTE Unavailable Unavailable [facility] Unavailable Unavailable GROUP PS, [facility] Unavailable Unavailable [facility], [facility] Unavailable Unavailable MEDICAL G, [facility] ELYSSA BURNETT, Unavailable Unavailable ELYSSA [...] JR DWI [facility] Unavailable Unavailable SPECIALISTS,, [facility], [facility] Unavailable Unavailable INTERNAL MED, [facility] BRITTNY, BRITTNY Unavailable Unavailable [...] SOTINGEANU SOTINGEANU CARMEN, Unavailable Unavailable SOTINGEANU CARMEN [facility] Unavailable Unavailable [facility], [facility] Unavailable Unavailable [facility], [facility] STROUB, STROUB Unavailable Unavailable [facility] Unavailable Unavailable [address], [facility] WALKER FOR, WALKER Unavailable Unavailable [facility] Unavailable Unavailable DEPT [facility] Unavailable Unavailable DEPT [facility], [facility] SANCHEZ, SANCHEZ Unavailable Unavailable SANCHEZ MICHELLE, SANCHEZ MICHELLE Unavailable Unavailable WELLS ELLEN, HORTENCIA ELLEN Unavailable Unavailable WELLS SHA, WELLS SHA Unavailable Unavailable ROSENTHAL MAR, ROSENTHAL MAR Unavailable Unavailable SARAH KADIE, SARAH KADIE Unavailable Unavailable Purpose Continuity of Care Document - 01-04-2009 through 2016 Problems Code Diagnosis DOS Provider Status R079 CHEST PAIN 06-04-2017 [facility] UNSPECIFIED [facility] INTERNAL MED W001OIS UNS ADVERS 06-01-2017 [facility] EFFECT PHYSICIANS, DRUG/MEDICA PLLC MENT INITIAL ENCNTR K219 GASTRO-ESOP 05-19-2017 [facility]UX [facility] SURG DISEASE CTR WITHOUT ESOPHAGITIS R1310 DYSPHAGIA 05-19-2017 [facility] U[facility]PECIFIED [facility] SURG CTR Z9884 BARIATRIC 05-19-2017 [facility] STATUS CTR J069 ACUTE UPPER 05-05-2017 [facility] RESPIRATORY INC INFECTION UNSPECIFIED R072 PRECORDIAL 05-05-2017 [facility] PAIN HEART SPECIALISTS , E785 HYPERLIPIDE 05-04-2017 [facility] UNSPECIFIED HOSPITAL P R0789 OTHER CHEST 05-04-2017 [facility]IN [facility]ICIANS, [facility] Z809 FAMILY 05-04-2017 [facility] HISTORY OF [facility] MALIGNANT INC NEOPLASM UNSPECIFIED Z8249 FAMILY HX 05-04-2017 [facility] ISCHEMIC [facility] HRT DZ OT HOSPITAL P DZ CIRC SYSTEM Z833 FAMILY 05-04-2017 [facility] OF [facility] P MELLITUS H79387 ENCOUNTER 04-30-2017 [facility] FOR [facility] PREPROCEDUR [facility] AL CARIOVASCUL AR EXAM F76961 ENCOUNTER 04-30-2017 [facility] PREPROCEDUR [facility] AL LABORATORY EXAM B977 PAPILLOMAVI 04-29-2017 [facility], [facility] OF DZ CLASSIFIED ELSEWHERE E7800 PURE 04-29-2017 [facility] HYPERCHOLES VALLEY TEROLEMIA INTERNAL UNSPECIFIED MED J309 ALLERGIC 04-29-2017 [facility] RHINITIS VALLEY UNSPECIFIED INTERNAL MED M797 FIBROMYALGI 04-29-2017 [facility] A VALLEY INTERNAL MED N870 MILD 04-29-2017 [facility], [facility] DYSPLASIA [id number] ATYP SQ 04-29-2017 [facility] CELLS UNDET PHYSICIANS GROUP SIGNIFICANC E CYTOL SMER CERV K34843 CERV HIGH 04-29-2017 [facility] RSK HUMAN PHYSICIANS PAPILLOMAVI GROUP RAJ DNA TEST POS 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 04-10-2017 [facility] ESOPHAGUS [place] M21286 DECREASED 04-09-2017 [facility] WHITE BLOOD [facility] CELL COUNT [facility] P UNSPECIFIED K449 DIAPHRAGMAT 04-08-2017 [facility] IC [facility] W/O MEDICAL OBSTRUCTION GROUP OR GANGRENE R110 NAUSEA 04-08-2017 [facility] R1319 OTHER 04-08-2017 [facility] DYSPHAGIA [facility] [id number] SPONDYLOSIS 04-07-2017 YVETTE JURADO, W/O , PSC MYELOPATH/R ADICULOPATH Y LUMB RGN M479 SPONDYLOSIS 04-07-2017 [facility] UNSPECIFIED INC 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-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, PSC RAL DISC DEGEN LUMBAR REGION R202 PARESTHESIA 04-07-2017 [facility] OF SKIN RACHEL INTERNAL MED J320 CHRONIC 04-02-2017 [facility] SINUSITIS INC R350 FREQUENCY 03-27-2017 [facility] MICTURITION [facility] P R3915 URGENCY OF 03-27-2017 [facility] URINATION [facility] P R200 ANESTHESIA 03-25-2017 [facility] OF SKIN MEDICAL IMAGING ASS R42 DIZZINESS 03-25-2017 [facility] AND MEDICAL GIDDINESS IMAGING ASS R51 HEADACHE 03-25-2017 [facility] HOSP INC D709 NEUTROPENIA 03-24-2017 [facility] P [id number] ADVERSE EFF 03-22-2017 [facility] PHYSICIANS, GLUCOCORTIC PLLC DS SYNTH ANALOG INIT ENC [id number] ADVERS EFF 03-22-2017 [facility] OT RX MEDS MEM [facility] BIO INC SUBSTANCES INIT ENC V36659 OTHER 03-21-2017 [facility] SPONDYLOSIS MEM [facility] LUMBAR INC REGION M5116 INTERVERTEB 03-21-2017 [facility] RAL DISC [facility] D/O INC W/RADICULOP ATHY LUMB RGN H10971 ENCOUNTER 03-19-2017 [facility], ELEVATOR OPERATOR SERVICE EXAM LLC GENERAL RTN W/ABNORMAL FIND C58067 ENCOUNTER 03-19-2017 [facility] ELEVATOR OPERATOR SERVICE EXAM PHYSICIANS GENERAL RTN GROUP W/O ABNORMAL FIND H6982 OTHER SPEC 03-13-2017 [facility] DISORDERS PHYSICIANS EUSTACHIAN GROUP TUBE LT EAR 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 UNRESTIRCT GROUP CONTRALAT SIDE R300 DYSURIA 03-12-2017 [facility] SHERIFF, [facility] M4726 OT 03-03-2017 [facility] SPONDYLOSIS [facility] INC W/RADICULOP ATHY LUMBAR REGION N390 URINARY 03-03-2017 [facility] TRACT [facility] INFECTION INC SITE NOT SPECIFIED R911 SOLITARY 02-27-2017 [facility] PULMONARY MEDICAL NODULE IMAGING ASS Z09 ENC F/U 02-27-2017 [facility] EXAM AFTR MEDICAL CMPL TX OTH IMAGING ASS THAN MALIG NEOPLSM E669 OBESITY 02-25-2017 [facility] UNSPECIFIED PHYSICIANS GROUP I119 HYPERTENSIV 02-25-2017 [facility] E HEART PHYSICIANS DISEASE GROUP WITHOUT HEART FAILURE R0600 DYSPNEA 02-25-2017 [facility] UNSPECIFIED PHYSICIANS GROUP G94175 PAIN IN 02-18-2017 [facility] LEFT [facility] SHOULDER INC M5440 LUMBAGO 02-18-2017 [facility] WITH [facility] SCIATICA INC UNSPECIFIED SIDE J310 CHRONIC 02-17-2017 [facility] RHINITIS PHYSICIANS GROUP J329 CHRONIC 02-17-2017 [facility] SINUSITIS PHYSICIANS UNSPECIFIED GROUP J342 DEVIATED 02-17-2017 [facility] NASAL PHYSICIANS SEPTUM GROUP M5416 RADICULOPAT 02-17-2017 [facility] HY LUMBAR [facility] REGION INC M545 LOW BACK 02-17-2017 YVETTE JURADO PAIN , PSC K5900 CONSTIPATIO 02-14-2017 [facility] N MEDICAL UNSPECIFIED IMAGING ASS I998 OTHER 02-11-2017 [facility] DISORDER OF [facility] INC CIRCULATORY SYSTEM R0602 SHORTNESS 02-11-2017 [facility] OF BREATH [facility] INC G8929 OTHER 02-10-2017 [facility] CHRONIC [facility]LEY PAIN INTERNAL MED R002 PALPITATION 01-31-2017 [facility] S PHYSICIANS GROUP R5383 OTHER 01-31-2017 [facility] FATIGUE PHYSICIANS GROUP M792 NEURALGIA 01-27-2017 [facility] AND VALLEY NEURITIS INTERNAL UNSPECIFIED MED I10 ESSENTIAL 01-26-2017 [facility] PRIMARY [facility] HYPERTENSIO INC N M542 CERVICALGIA 01-26-2017 [facility] INC U44699 SPONDYLOSIS 01-22-2017 [facility] W/O MEDICAL MYELOPATH/R IMAGING ASS ADICULOPATH Y CERV RGN K464UWE STRAIN 01-22-2017 [facility] MUSCLE FASC PHYSICIANS, & TENDON PLLC NECK LEVL INIT ENC E559 VITAMIN D 01-21-2017 [facility] DEFICIENCY [facility] UNSPECIFIED INC N24123H STRAIN 01-16-2017 [facility] MUSCLE & PHYSICIANS, TENDON UNS PLLC WALL THORAX INIT ENC U45874 OTHER LONG 01-11-2017 [facility] DRUG THERAPY Z882 ALLERGY 01-11-2017 [facility] STATUS TO [facility] S STATUS Z886 ALLERGY 01-11-2017 [facility] ANAL[facility]ESIC [facility] AGENT STATUS Z888 ALLERGY 01-11-2017 [facility] STATUS OTH [facility] RX MEDS & HOSPITAL BIOLOG [facility] STS H9203 OTALGIA 01-10-2017 [facility] BILATERAL [facility] INC I209 ANGINA 01-10-2017 [facility]ECT[facility]IS [facility] UNSPECIFIED INC R071 CHEST PAIN 01-07-2017 [facility] INTERNAL MED Z720 TOBACCO USE 01-04-2017 [facility] INC P18208 MUSCLE 12-25-2016 [facility] SPASM OF [facility] BACK INC R1013 EPIGASTRIC 12-25-2016 [facility] PAIN RACHEL INTERNAL MED R4702 DYSPHASIA 12-25-2016 [facility] RACHEL INTERNAL MED B078 OTHER VIRAL 12-23-2016 [facility] WARTS K30 FUNCTIONAL 12-23-2016 [facility] [place] L218 OTHER 12-23-2016 [facility] SEBORRHEIC DERMATITIS L538 OTHER 12-23-2016 [facility] SPECIFIED ERYTHEMATOU S CONDITIONS R208 OTHER 12-23-2016 [facility] DISTURBANCE S OF SKIN SENSATION R238 OTHER SKIN 12-23-2016 [facility] CHANGES K5903 DRUG 12-17-2016 [facility] INDUCED [facility] CONSTIPATIO INC N [id number] ADVERSE 12-17-2016 [facility] EFFECT [facility] OTHER INC OPIOIDS INITIAL ENCOUNTER K910 VOMITING 12-12-2016 [facility] FOLLOWING [facility] GASTROINTES INC TINAL SURGERY R600 LOCALIZED 12-12-2016 [facility] EDEMA PHYSICIANS, PLLC R609 EDEMA 12-12-2016 [facility] UNSPECIFIED MEM HOS[facility] INC [id number] OTHER 12-12-2016 [facility] SPECIFIED MEDICAL POSTPROCEDU IMAGING ASS [facility] STATES E6601 MORBID 12-11-2016 [facility] SEVERE HEALTH OBESITY DUE MONALISA TO EXCESS CALORIES N393 STRESS 12-11-2016 [facility] INCONTINENC HEALTH E FEMALE MONALISA MALE Z903 ACQUIRED 12-11-2016 [facility] ABSENCE OF HEALTH STOMACH MONALISA R76615 ENCOUNTER 12-05-2016 [facility] FOR OTHER HEALTH PREPROCEDUR MEDICAL AL GROUP EXAMINATION K210 GASTRO-ESOP 11-22-2016 [facility] HAGEAL PHYSICIANS, REFLUX PLLC DISEASE W/ ESOPHAGITIS K625 HEMORRHAGE 11-19-2016 [facility] OF ANUS AND VALLEY RECTUM INTERNAL MED M546 PAIN IN 11-08-2016 [facility] THORACIC PHYSICIANS, SPINE PLLC F98280 PAIN IN 10-14-2016 [facility] UNSPECIFIED MEDICAL HIP IMAGING ASS M533 SACROCOCCYG 10-14-2016 [facility] EAL MEDICAL DISORDERS IMAGING ASS NEC I373DBX CONTUSION 10-14-2016 [facility] LOWER BACK PHYSICIANS, & PELVIS PLLC INITIAL ENCOUNTER H4269DI UNSPECIFIED 10-14-2016 [facility] INJURY MEDICAL LOWER BACK IMAGING ASS INITIAL ENCOUNTER O5852ZC UNSPECIFIED 10-14-2016 [facility] INJURY OF MEDICAL PELVIS IMAGING ASS INITIAL ENCOUNTER H3581 RETINAL 10-11-2016 [facility] ANG EDEMA R040 EPISTAXIS 10-10-2016 [facility] RACHEL INTERNAL MED E6609 OTHER 10-08-2016 [facility] OBESITY DUE BARIATRIC TO EXCESS SURGICAL CALORIES R109 UNSPECIFIED 10-08-2016 [facility] ABDOMINAL BARIATRIC PAIN SURGICAL J3489 OTHER 10-06-2016 [facility] SPECIFIED PHYSICIANS, DISORDERS PLLC NOSE AND NASAL SINUSES R05 COUGH 10-06-2016 [facility] R0981 NASAL 10-06-2016 [facility] CONGESTION MEDICAL IMAGING ASS A6004 HERPESVIRAL 09-27-2016 [facility] PHYSICIANS VULVOVAGINI GROUP TIS N760 ACUTE 09-27-2016 [facility] VAGINITIS PHYSICIANS GROUP [id number] CONCUSSION 09-21-2016 [facility] WITHOUT LOC [facility] INITIAL INC ENCOUNTER [id number] UNSPECIFIED 09-21-2016 [facility] INJURY OF MEDICAL HEAD IMAGING ASS INITIAL ENCOUNTER H6903 PATULOUS 09-19-2016 [facility] JARON EUSTACHIAN TUBE BILATERAL R00005 UNSPECIFIED 09-18-2016 [facility] PHYSICIANS OBSTRUCTION GROUP EUSTACHIAN TUBE BILAT R590 LOCALIZED 09-04-2016 [facility] LYMPH [facility] P Z6834 BODY MASS 09-04-2016 [facility] INDEX BMI HEALTH 34.0-34.9 MEDICAL ADULT GROUP K5909 OTHER 09-03-2016 [facility] CONSTIPATIO GROUND N FAMILY CLINI R112 NAUSEA WITH 09-03-2016 [facility] VOMITING GROUND UNSPECIFIED FAMILY CLINI R748 ABNORMAL 09-03-2016 [facility] LEVELS OF GROUND OTHER SERUM FAMILY ENZYMES CLINI Z111 ENCOUNTER 09-02-2016 [facility]ING [facility] DEPT RESPIRATORY JAZZ TUBERCULOSI S M549 DORSALGIA 09-01-2016 [facility] UNSPECIFIED PHYSICIANS, PLL R197 DIARRHEA 09-01-2016 [facility] UNSPECIFIED PHYSICIANS, [facility] [id number] ADVERSE 09-01-2016 [facility] P SRI INITIAL ENCOUNTER U43920 UNS PLACE 09-01-2016 [facility] UNS NON [facility] P PL[facility] OF OCCUR EXT R195 OTHER FECAL 08-30-2016 [facility] HOSP ABNORMALITI INC ES Z202 CONTACT 08-30-2016 [facility] WITH [facility] EXPOSURE [facility] DEPT INFECT JAZZ SEXUAL MODE TRANSMS Z23 ENCOUNTER 08-30-2016 [facility] FOR DISTRICT IMMUNIZATIO [facility] DEPT N JAZZ R5381 OTHER 08-29-2016 [facility] MALAISE PHYSICIANS GROUP R9431 ABNORMAL 08-29-2016 [facility] ELECTROCARD PHYSICIANS IOGRAM GROUP T09919 LYMPHOCYTOP 08-21-2016 [facility] ENIA [facility] INC J3089 OTHER 08-21-2016 [facility] RHINITIS [place] J4520 MILD 08-21-2016 [facility] INTERMITTEN PARTNERS OF T ASTHMA [place] UNCOMPLICAT ED Z698WZE OTHER 08-21-2016 [facility] ADVERSE PARTNERS OF FOOD [place] REACTIONS NEC SUBSEQUENT ENC M791 MYALGIA 08-17-2016 [facility] PHYSICIANS, [facility] M898X9 OTHER 08-12-2016 [facility] SPECIFIED MEDICAL DISORDERS IMAGING ASS BONE UNSPECIFIED SITE R599 ENLARGED 08-12-2016 [facility]H [facility] INC UNSPECIFIED R1314 DYSPHAGIA 08-10-2016 [facility] PHARYNGOESO PHYSICIANS, PHAGEAL [facility] PHASE R5382 CHRONIC 08-07-2016 [facility] FATIGUE [facility] UNSPECIFIED INC J301 ALLERGIC 08-05-2016 [facility] RHINITIS PARTNERS OF DUE TO [place] POLLEN J3081 ALLERG 08-05-2016 [facility] RHINITIS PARTNERS OF D/T ANIMAL [place] CAT DOG HAIR & DANDER R591 GENERALIZED 08-05-2016 [facility] EN[facility]ARGED [facility] P I208 OTHER FORMS 08-02-2016 [facility] OF [facility] P C78410 PAIN IN 08-02-2016 [facility] RIGHT KNEE MEDICAL IMAGING ASS R55 SYNCOPE AND 08-02-2016 [facility] TEJADA PHYSICIANS, PLLC V409PXV UNSPECIFIED 08-02-2016 [facility] INJURY OF MEDICAL NECK IMAGING ASS INITIAL ENCOUNTER R7693AQ UNS INJURY 08-02-2016 [facility] RT LOWER MEDICAL LEG INITIAL IMAGING ASS ENCOUNTER N281 CYST OF 08-01-2016 [facility] P G01454 OTHER 07-31-2016 [facility] EQUIPMENT INC R209 UNSPECIFIED 07-29-2016 [facility] PHYSICIANS, DISTURBANCE PLLC S OF SKIN SENSATION K589 IRRITABLE 07-24-2016 [facility] BOWEL PHYSICIANS SYNDROME GROUP WITHOUT DIARRHEA R102 PELVIC AND 07-24-2016 [facility] PERINEAL PHYSICIANS PAIN GROUP N831 CORPUS 07-22-2016 [facility] LUTEUM CYST PHYSICIANS GROUP N920 EXCESS & 07-22-2016 [facility] FREQUENT PHYSICIANS MENSTRUATIO GROUP N W/REGULAR CYCLE A69072W STRAIN UNS 07-22-2016 [facility] MUSCLE FASC PHYSICIANS, TEND THIGH PLLC RT INITIAL ENC Z7251 HIGH RISK 07-22-2016 [facility] BEHAVIOR INC R12 HEARTBURN 07-18-2016 [facility] H[facility]9 OTHER 07-17-2016 [facility] SPECIFIED PHYSICIANS DISORDERS GROUP OF EAR UNSPECIFIED EAR J302 OTHER 07-17-2016 [facility] SEASONAL PHYSICIANS ALLERGIC GROUP RHINITIS B6418UG LACERATION 07-13-2016 [facility] W/O FOREIGN PHYSICIANS, BODY SCALP PLLC INITIAL ENC K2577FI SPRAIN 07-13-2016 [facility] UNSPECIFIED PHYSICIANS, SITE LT PLLC KNEE INITIAL ENCNTR R6889 OTHER 07-10-2016 [facility] SYMPTOMS HOSPITA AND SIGNS E780 PURE 07-09-2016 [facility] HYPERCHOLES BARIATRIC TEROLEMIA SURGICAL E876 HYPOKALEMIA 07-09-2016 [facility] P Z1231 ENCOUNTER 07-08-2016 [facility] SCREENING MEDICAL MAMMO MALIG IMAGING ASS NEOPLASM BREAST H6990 UNSPECIFIED 07-07-2016 [facility] TUBE PHYS PSC DISORDER UNS EAR H938X3 OTHER 07-07-2016 [facility] SPECIFIED HEALTH DISORDERS [place] OF EAR BILATERAL M5432 SCIATICA 07-07-2016 [facility] LEFT SIDE EMERGENCY PHYS PSC R1010 UPPER 07-05-2016 [facility] ABDOMINAL PHYSICIANS, PAIN PLLC UNSPECIFIED R1084 GENERALIZED 06-29-2016 [facility] ABDOMINAL PHYSICIANS, PAIN PLLC I880 NONSPECIFIC 06-27-2016 [facility] MESENTERIC PHYSICIANS, PLLC LYMPHADENIT IS R100 ACUTE 06-27-2016 [facility] ABDOMEN AMBULANCE SERVICE R1031 RIGHT LOWER 06-26-2016 [facility] PAIN PHYS P77653 RIGHT LOWER 06-26-2016 [facility] ABDOMINAL HOSPITA TENDERNESS N200 CALCULUS OF 06-24-2016 [facility] KIDNEY MEDICAL IMAGING ASS 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 06-11-2016 [...] EXPS TO NONIONIZING RAD R9439 ABNORMAL 04-08-2016 [facility] GROUP STUDY [...] VALLEY IES NOT INTERNAL ELSEWHERE MED CLASSIFIED 91175 UNSPECIFIED 07-11-2015 [facility] VIRAL WARTS 2167 [...] SKIN 7020 ACTINIC 07-11-2015 [facility] KERATOSIS 69438 INFLAMED 07-11-2015 [facility] SEBORRHEIC KERATOSIS V700 ROUTINE 06-27-2015 [facility] DEPT EXAM@[facility] CARE FACL 00989 MORBID 06-20-2015 [facility] OBESITY BARIATRIC SURGICAL 16489 PAIN IN 06-20-2015 [facility] JOINT, SITE [facility] UNSPECIFIED 7823 EDEMA 06-20-2015 [facility] 64638 OTHER 06-20-2015 [facility] DYSPNEA AND [facility] RESPIRATORY ABNORMALITI ES 7871 HEARTBURN 06-20-2015 [facility] 7904 NONSPEC 06-20-2015 [facility] ELEVATION BARIATRIC OF LEVELS SURGICAL OF TRANSAMINAS E/LDH V4586 BARIATRIC 06-20-2015 [facility] SURGERY BARIATRIC STATUS SURGICAL V7612 OTHER 06-19-2015 [facility] SCREENING MEDICAL MAMMOGRAM IMAGING ASS 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 MED 2689 UNSPECIFIED 06-12-2015 [facility] VITAMIN D [facility] DEFICIENCY INTERNAL MED 5718 OTHER 06-12-2015 [facility] CHRONIC [facility] NONALCOHOLI INTERNAL C LIVER MED DISEASE 7905 OTHER 06-12-2015 [facility] NONSPECIFIC VALLEY ABNORMAL INTERNAL SERUM MED ENZYME LEVELS 93004 UNSPEC 05-09-2015 [facility] DISORDERS PHYSICIANS BURSAE&TEND GROUP ONS SHOULDER REGION 7262 OTHER 05-09-2015 [facility] AFFECTIONS PHYSICIANS OF SHOULDER GROUP REGION NEC 90696 OBESITY, 05-04-2015 [facility] UNSPECIFIED OLOGY AND HEPATOL 3674 PRESBYOPIA 04-28-2015 SCIF[facility] ANG 71142 CHEST PAIN 04-28-2015 [facility] UNSPECIFIED HEALTH MEDICAL GROUP 69669 ABDOMINAL 04-25-2015 [facility] PAIN, COMMUNTIY UNSPECIFIED HOSPITA SITE 4019 UNSPECIFIED 04-16-2015 [facility] ESSENTIAL [facility] HYPERTENSIO INC N 5990 URINARY 04-16-2015 [facility] TRACT PHYSICIANS, INFECTION [facility] SITE NOT SPECIFIED 7948 NONSPECIFIC 04-16-2015 [facility] ABNORMAL [facility] RESULTS INC LIVR FUNCTION STUDY 5739 UNSPECIFIED 04-14-2015 [facility] [place] DISORDER RADIOLOGY OF LIVER 7906 OTHER 04-14-2015 [facility] ABNORMAL COMMUNTIY BLOOD HOSPITA CHEMISTRY 5939 UNSPECIFIED 04-06-2015 [facility] DISORDER MEDICAL OF KIDNEY IMAGING ASS AND URETER 7891 HEPATOMEGAL 04-06-2015 [facility] Y OLOGY AND HEPATOL V140 PERSONAL 04-05-2015 [facility] HISTORY OF [facility] ALLERGY TO HOSPITAL P PENICILLIN 18150 ABDOMINAL 04-03-2015 [facility] NGO PAIN, GENERALIZED 5758 OTHER 04-01-2015 [facility] SPECIFIED [facility] DISORDER OF HOSPITAL P GALLBLADDER 75563 OTHER 04-01-2015 [place] SPECIFIED MEDICAL DISORDER OF IMAGING ASS KIDNEY AND URETER 00025 ABDOMINAL 04-01-2015 [facility] UPPER IMAGING ASS QUADRANT 91529 ABDOMINAL 04-01-2015 [place] PAIN, [facility] EPIGASTRIC [facility] P 7295 PAIN IN 03-29-2015 [facility] TISSUES OF HOSPITA LIMB V4589 OTHER 03-29-2015 [facility] POSTSURGICA [facility] L STATUS HOSPITA OTHER 19080 OTHER 03-24-2015 [facility] MALAISE AND [facility] FATIGUE HOSPITA V6700 FOLLOW-UP 03-21-2015 [facility] [place] EXAMINATION RADIOLOGY FOLLOWING UNSPEC SURGERY 11992 ESOPHAGEAL 03-20-2015 [place] [facility] PS 6256 FEMALE 03-20-2015 [facility] STRESS [facility] INCONTINENC HOSPITA E 33160 PAIN IN 03-20-2015 [facility] JOINT, BARIATRIC MULTIPLE SURGICAL SITES 64930 DIASTASIS 03-20-2015 [facility] OF MUSCLE [facility]TI[facility] HOSPITA 7892 SPLENOMEGAL 03-20-2015 [facility] Y [facility]UNTIY HOSPITA V8543 BODY MASS 03-20-2015 [facility] INDEX [facility]UN[facility] 50.0-59.9 HOSPITA ADULT 2639 UNSPECIFIED 03-14-2015 [facility] PROTEIN-TEA HOSPITA ORIE MALNUTRITIO N 38300 MIGRAINE 03-07-2015 [facility] UNSP W/O BARIATRIC 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 MIGRAINOSUS 38310 OTHER 03-07-2015 [facility] URINARY BARIATRIC INCONTINENC SURGICAL E 6929 CONTACT 03-06-2015 [facility] HUBER DERMATITIS& OTHER ECZ[place] DUE UNSPEC CAUSE 6822 CELLULITIS 03-02-2015 [place] [facility] P V148 PERSONAL 03-02-2015 [place] [facility] ALLERGY [facility] P SPEC MEDICINAL AGTS V571 OTHER 02-22-2015 [place] PHYSICAL MEM HOSP THERAPY INC 2724 OTHER AND 02-20-2015 [facility] UNSPECIFIED COMMUNTIY HOSPITA HYPERLIPIDE LILIANE 7245 UNSPECIFIED 02-20-2015 [facility] BACKACHE COMMUNTIY HOSPITA V7283 OTHER 02-20-2015 [facility] SPECIFIED COMMUNTIY PRE-OPERATI HOSPITA VE EXAMINATION 2875 UNSPECIFIED 02-15-2015 [facility] P PENIA 7932 NONSPC ABN 02-10-2015 [place] [facility] RAD&OTH [facility] EXAM OTH INTRTHOR ORGN V7282 PRE-OPERATI 02-10-2015 [place] [facility] SERV RESPIRATORY FOUNDATION EXAMINATION 5930 NEPHROPTOSI 02-09-2015 [facility] P 7802 SYNCOPE AND 02-01-2015 [facility] MEDICAL G 4139 OTHER AND 01-18-2015 [facility] P PECTORIS 35534 SHORTNESS 01-18-2015 [facility] MEDICAL IMAGING ASS 43342 OTHER CHEST 01-18-2015 [facility] P 24432 OSTEOARTHRO 12-30-2014 [facility] Reddy INVLV MX SITES BUT [place] SPEC GEN 22121 PAIN IN 11-09-2014 [place] JOINT, MEDICAL SHOULDER IMAGING ASS REGION V5832 ENCOUNTER 11-09-2014 [facility] FOR REMOVAL [facility] P 14233 PILAR CYST 11-02-2014 [facility] 27754 UNSPECIFIED 10-06-2014 [facility] INFECTION PHYS IN CCE & UNS SITE 7840 HEADACHE 10-06-2014 [facility] 07812 ATROPHIC 09-16-2014 [facility] WITHOUT HOSPITA MENTION OF HEMORRHAGE 93473 OTHER SPEC 09-16-2014 [facility] WITHOUT MENTION HEMORRHAGE 11893 DYSPHAGIA 09-16-2014 [facility]PEC[facility] PS 6869 UNSPEC 08-17-2014 [facility] LOCAL INFECTION SKIN&SUBCUT ANEOUS TISSUE V7284 UNSPECIFIED 08-09-2014 [facility] PRE-OPERATI INC VE EXAMINATION 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 7019 UNSPECIFIED 08-04-2014 [facility] HYPERTROPHI C&ATROPHIC CONDITION SKIN 97474 OTHER 08-04-2014 [facility] SEBORRHEIC KERATOSIS 7851 PALPITATION 08-04-2014 [facility] G V7281 PRE-OPERATI 07-21-2014 [facility] CARDIOVASCU MEDICAL G LAR EXAMINATION 66674 PAINFUL 07-05-2014 [facility] BRYCE RESPIRATION V771 SCREENING 05-24-2014 [facility] DI[facility]ETES MELLITUS 470 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 4779 ALLERGIC 03-17-2014 [facility] RHINITIS CAUSE UNSPECIFIED 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 E849.8 E849.8 12-31-2013 [place] ACCIDENT IN [facility] E885.9 E885.9 FALL 12-31-2013 [place] [facility], Hospital TRIPPING, OR STUMBLING [facility] V14.0 V14.0 12-31-2013 [place] HX-P[facility]ICILL [facility] ALLERGY Hospital V14.1 V14.1 12-31-2013 [place] H[facility]-ANTIB[facility]OT [facility] V01.6 V01.6 01-11-2013 [place] VENEREAL [facility] DIS CONTACT Hospital V0481 NEED 01-06-2009 [facility]/CO PROPHYLACTI HEALTH C CENTRAL VACCINATION BANK ACCT &INOCULATIO N FLU 29357 PAIN IN 01-04-2009 [facility] THIGH 58838 DISPLCMT 01-04-2009 [facility] LUMBAR [facility]ICAL INTERVERT 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 8460 SPRAIN AND 01-04-2009 [facility] LUMBOSACRAL [facility] 8472 LUMBAR 01-04-2009 [place] [facility] STRAIN INC 26705 CONTUSION 01-04-2009 [employer] BACK [employer] 87462 CONTUSION 01-04-2009 [employer] BUTTOCK [employer] E8490 PLACE OF 01-04-2009 [place] OCCURRENCE[facility] E8859 FALL FROM 01-04-2009 [place] OTHER MEDICAL SLIPPING IMAGING TRIPPING OR ASSOCIATES [...] 43 RA 30 17 17 61 PH MA 5 60 AR DE MA CY 10 MG TA BL ET FL 50 07 08 16 30 00 CL Ac UT 38 -0 -0 .0 00 IN ti IC 30 7- 4- 00 00 IC ve 70 20 20 42 ON 01 17 17 79 PH E 6 94 AR AZ MA OP CY 50 MC G SP [...] 43 ZA 60 17 17 63 PH AZ 1 09 AR IN MA E CY [...] 17 79 PH E 6 94 AR AZ MA OP CY 50 MC G SP [...] YL 15 2- 7- 00 01 ve AZ 02 20 20 18 AI ED 20 [...] 43 ZA 60 17 17 25 PH AZ 1 00 AR IN MA E CY [...] 17 79 PH E 6 94 AR AZ MA OP CY 50 MC G SP [...] 17 79 PH E 6 94 AR AZ MA OP CY 50 MC G SP [...] 42 ZA 60 17 17 82 PH AZ 1 16 AR IN MA E CY [...] 42 ZA 60 17 17 59 PH AZ 1 23 AR IN MA E CY [...] 1 70 PH CE AR TA MA MA CY NO PH #3 93 7. 8 5- 32 5 OS 47 03 03 10 10 00 CL Ac EL 78 -0 -3 .0 00 IN ti TA 10 7- 1- 00 00 IC ve MA 47 20 20 42 01 17 17 [...] 0 CY MG CA PS UL E AZ 65 03 03 20 5 00 CL [...] 17 53 PH E 6 48 AR AZ MA OP CY 50 MC G SP [...] 42 ZA 60 17 17 30 PH AZ 1 05 AR IN MA E CY [...] MG #3 TA 93 BL 8 ET AZ 59 02 03 10 5 00 RI [...] 17 53 PH E 9 48 AR AZ MA OP CY 50 MC G SP [...] 42 ZA 81 17 17 08 PH AZ 0 66 AR IN MA E CY 10 MG TA BL ET HY 00 01 02 [address] 40 -1 -[address] ti OC 60 8- 7- 00 00 SI ve OD 12 20 20 47 DE ON 40 17 17 29 -A 5 25 PH CE AR TA MA MA CY NO PH OF CY 7. NT [...] 12 01 20 10 00 CL Ac AZ 46 -2 -2 .0 00 IN ti [...] 12 01 14 7 00 CL Ac AZ 46 -1 -2 .0 00 IN ti [...] 17 53 PH E 9 48 AR AZ MA OP CY 50 MC G SP RA Y BU 00 02 0 No TA 60 -0 LB 32 7- Lo -A 54 20 ng CE 42 14 er TA 1 MA Ac N- ti CA ve FF 50 [...] 20 20 ZA 70 09 09 PH MA AZ 6 AR CH IN MA AE E CY L 10 S MG TA BL ET ME 59 02 02 00 21 6 CL 18 GA Ac TH 74 -1 -2 .0 IN 75 IN ti YL 60 2- 6- 00 IC 10 EY ve AZ 00 20 20 ED 10 09 09 PH MA NI 3 AR CH SO MA AE [...] Comment ion Range Glucose 88 mg/dL 70-100 [facility] 12-31-2013 17:30 Name Value Interpretat Reference [...] Hgb A1c Bld (12-05-2016 11:40) Comment: The [place] [employer] recommends maintenance of Hemoglobin A1C [...] Procedure DOS Code Location Performer Comment ECG 92093 [facility] ROUTINE 7 PHYSICIAN ECG S, PLLC W/LEAST 12 LDS I&R ONLY EGD 50647 DOMINICK SANCHEZ TRANSORAL 7 HEALTH BIOPSY MEDICAL SINGLE/MU GROUP LTIPLE ECG 30189 [facility] ROUTINE 7 HEART ECG SPECIALIS W/LEAST TS, 12 LDS I&R ONLY ECG 69096 [place] [facility] ROUTINE 7 [facility] W/LEAST P 12 LDS I&R ONLY ECG 23455 [place] [facility] ROUTINE 7 [facility] ECG INC INC W/LEAST 12 LDS TRCG ONLY W/O I&[place] [address] [facility] TROPONIN 7 [facility] QUANTITAT INC INC SABIHA COMPREHEN 07202 [place] [facility] SIVE 7 [facility] METABOLIC INC INC PANEL ECG 07648 [facility] ROUTINE 7 [facility] ECG [facility] W/LEAST 12 LDS TRCG ONLY W/O [place] [address] [facility] PICKLESIM SURG 7 [facility] ER JR PATHOLOGY GROSS&BRYCE ROSCOPIC EXAM COLPOSCOP 03432 [facility] HUMPHREY Y CERVIX 7 PHYSICIAN BX CERVIX S GROUP & [place] [address] [facility] LUTHER[facility] TRACT 7 [facility] UPPER [facility] W/WO DELAYED IMAGES W/[place] [address] [place] [facility] HEAD/BRAI 7 [facility] N W/O INC INC CONTRAST MATERIAL UNCLASSIF J3490 [place] [facility] IED DRUGS 7 [facility] INC INC COMPREHEN 47593 [place] [facility] SIVE 7 [facility] METABOLIC INC INC PANEL GONADOTRO 57639 [facility] [facility] PIN 7 [facility] [place] [address] [facility] GAMMAGLOB 7 [facility] ULIN IGA INC INC IGD IGG IGM EACH GONADOTRO 23677 [facility] [facility] PIN 7 [facility] FOLLICLE INC INC STIMULATI NG HORMONE LIPID 00761 [place] [facility] PANEL 7 [facility] INC INC BLOOD 56297 [place] [facility] COUNT 7 [facility] COMPLETE INC INC AUTO&AUTO DIFRNTL WBC BLOOD 89166 [place] [facility] COUNT 7 [facility] COMPLETE INC INC AUTO&[place] [address] [place] [facility] INFUSION 7 [facility] THERAPY/P INC INC ROPHYLAXI S /DX 1ST TO 1 [place] [address] [place] [facility] INFUSION 7 [facility] THERAPY INC INC PROPHYLAX IS/DX EA HOUR URNLS DIP 35517 [place] [facility] 7 [facility] STICK/TAB INC INC LET REAGENT AUTO MICROSCOP Y UNCLASSIF J3490 [place] [facility] IED DRUGS 7 [facility] INC INC COMPREHEN 02665 [place] [facility] SIVE 7 [facility] METABOLIC INC INC PANEL UNCLASSIF J3490 [place] [facility] IED DRUGS 7 [facility] INC INC URNLS DIP 78868 [facility] HUMPHREY 7 PHYSICIAN STICK/TAB S GROUP LET RGNT NON-AUTO W/O MICRSCP IADNA 43311 [facility] TOD HUMAN 7 LLC PAPILLOMA VIRUS HIGH-RISK TYPES CYTP 18393 [facility] CERVICAL/ 7 LLC VAGINAL REQ INTERP PHYSICIAN CYTP C/V 28112 [facility] AUTO THIN 7 LLC LYR PREPJ SCR MNL RESCR PHYS ECG 33909 [place] ROUTINE 7 [facility] ECG INC INC W/LEAST 12 LDS TRCG ONLY W/O I&R PROTEIN 93657 [place] [facility] ELECTROPH 7 [facility] ORETIC INC INC FRACTJ&QU ANTJ SERUM BLOOD 97176 [place] [facility] COUNT 7 [facility] COMPLETE INC INC AUTO&AUTO DIFRNTL WBC ANTINUCLE 61942 [place] [facility] AR 7 [facility] ANTIBODIE INC INC S SANNA COMPREHEN 84368 [place] [facility] SIVE 7 [facility] METABOLIC INC INC PANEL URNLS DIP 55385 [place] [facility] 7 [facility] STICK/TAB INC INC LET RGNT AUTO W/O MICROSCOP Y UNCLASSIF J3490 [place] [facility] IED DRUGS 7 [facility] INC INC CT THORAX 94119 [place] [facility] 7 [facility] W/CONTRAS INC INC T MATERIAL CREATININ 22318 [place] [facility] E BLOOD 7 [place] [address] [facility] [facility] UREA 7 [facility] NITROGEN [place]X [address]04 YV[facility] DUFF DX/THER 7 MD RHIANNON, AGT PVRT PSC FACET JT LMBR/SAC 1 LEVEL NJX 85484 [facility] DUFF DX/THER 7 MD RHIANNON, AGT PVRT PSC FACET JT LMBR/SAC 2ND LEVEL NJX 91719 [facility] DUFF DX/THER 7 MD RHIANNON, AGT PVRT PSC FACET JT LMBR/SAC 3+ LEVEL ECG 39854 [facility] ROUTINE 7 PHYSICIAN ECG S GROUP W/LEAST 12 LDS I&R ONLY ECG 21759 [place] [facility] ROUTINE 7 [facility] ECG INC INC W/LEAST 12 LDS TRCG ONLY W/O I&R THERAPEUT 42117 [place] [facility] IC PX 1/> 7 [facility] AREAS INC INC EACH 15 MIN EXERCISES APPL 08565 [place] [facility] MODALITY 7 [facility] 1/> AREAS INC INC IONTOPHOR ESIS EA 15 MIN APPL 81445 [place] [facility] MODALITY 7 [facility] 1/> AREAS INC INC TRACTION MECHANICA L APPL 70143 [facility] [facility] MODALITY 7 [facility] 1/> AREAS INC INC ELEC STIMJ UNATTENDE D APPLICATI 67565 [place] [facility] ON 7 [facility] MODALITY INC INC 1/> AREAS HOT/COLD PACKS APPL 72157 [place] [facility] MODALITY 7 [facility] 1/> AREAS INC INC VASOPNEUM ATIC DEVICES APPL 35447 [place] [facility] MODALITY 7 [facility] 1/> AREAS INC INC ULTRASOUN D EA 15 MIN UNCLASSIF J3490 [place] [facility] IED DRUGS 7 [facility] INC INC APPLICATI 23228 [place] [facility] ON 7 [facility] MODALITY INC INC 1/> AREAS HOT/COLD PACKS APPL 25701 [place] [facility] MODALITY 7 [facility] 1/> AREAS INC INC ELEC STIMJ UNATTENDE D APPL 04013 [place] [facility] MODALITY 7 [facility] 1/> AREAS INC INC TRACTION MECHANICA L PHYSICAL 18109 [place] [facility] THERAPY 7 [facility] EVALUATIO INC INC N HIGH COMPLEX 45 MINS RADEX 59287 [place] [facility] ABDOMEN 7 [facility] COMPL INC INC W/DCBTS&/ ERC VIEWS ECG 96282 [place] [facility] ROUTINE 7 [facility] ECG INC INC W/LEAST 12 LDS TRCG ONLY W/O I&R THER 22618 [place] [facility] PROPH/DX 7 [facility] NJX IV INC INC PUSH SINGLE/1S T SBST/DRUG ECG 27149 [place] ROUTINE 7 [facility] W/LEAST P 12 LDS I&R ONLY THERAPEUT 81124 [place] [facility] IC 7 [facility] INJECTION INC [place] [address] [place] [facility] TROPONIN 7 [facility] QUANTITAT INC INC SABIHA BLOOD 53465 [place] [facility] COUNT 7 [facility] COMPLETE INC INC AUTO&AUTO DIFRNTL WBC CREATINE 94250 [place] [facility] KINASE 7 [facility] TOTAL INC INC UNCLASSIF J3490 [place] [facility] IED DRUGS 7 [facility] INC INC COMPREHEN 98560 [facility] [facility] SIVE 7 [facility] [address] [facility] [facility] LIPASE 7 [place] [address] [facility] [facility] AMYLASE 7 [facility] INC INC CREATINE 49868 [place] [facility] KINASE MB 7 [facility] FRACTION INC INC ONLY APPLICATI 74198 [place] [facility] ON 7 [facility] MODALITY INC INC 1/> AREAS HOT/COLD PACKS APPL 25016 [place] [facility] MODALITY 7 [facility] 1/> AREAS INC INC ELEC STIMJ UNATTENDE D APPL 55042 [place] [facility] MODALITY 7 [facility] 1/> AREAS INC INC TRACTION MECHANICA L ECG 33455 [facility] KIMBERLY ROUTINE 7 PHYSICIAN ECG S GROUP W/LEAST 12 LDS I&R ONLY ECG 47919 [place] [facility] ROUTINE 7 [facility] ECG INC INC W/LEAST 12 LDS TRCG ONLY W/O I&R APPL 78054 [place] [facility] MODALITY 7 [facility] 1/> AREAS INC INC TRACTION MECHANICA L APPL 66194 [place] [facility] MODALITY 7 [facility] 1/> AREAS INC INC ELEC STIMJ UNATTENDE D APPLICATI 34682 [place] [facility] ON 7 [facility] MODALITY INC INC 1/> AREAS HOT/COLD PACKS APPLICATI 62920 [place] [facility] ON 7 [facility] MODALITY INC INC 1/> AREAS HOT/COLD PACKS XTRNL ECG 26231 [place] [facility] & 48 HR 7 MEM H[facility] RECORDING INC INC APPL 26797 [place] [facility] MODALITY 7 [facility] 1/> AREAS INC INC ELEC STIMJ UNATTENDE D THERAPEUT 60707 [place] [facility] IC PX 1/> 7 [facility] AREAS INC INC EACH 15 MIN EXERCISES ECG 85776 [facility] KIMBERLY ROUTINE 7 PHYSICIAN ECG S GROUP W/LEAST 12 LDS I&R ONLY ECG 08287 [place] ROUTINE 7 [facility] HOSPITAL W/LEAST P 12 LDS I&R ONLY GROUND A0425 [facility] MILEAGE 7 AMBULANCE AMBULANCE PER SERVICE SERVICE STATUTE MILE ECG 23207 [place] ROUTINE 7 [facility] ECG INC INC W/LEAST 12 LDS TRCG ONLY W/O I&R RADIOLOGI 97563 [place] [facility] C EXAM 7 [facility] CHEST 2 INC INC VIEWS FRONTAL&[place] [address] [place] [facility] TROPONIN 7 [facility] QUANTITAT INC INC SABIHA BLOOD 63979 [place] [facility] COUNT 7 [facility] COMPLETE INC INC AUTO&AUTO DIFRNTL WBC CREATINE 47101 [place] [facility] KINASE 7 [facility] TOTAL INC INC AMB A0427 [facility] SERVICE 7 AMBULANCE AMBULANCE ALS SERVICE SERVICE EMERGENCY TRANSPORT LEVEL 1 MRI 20318 WEND[facility] AD[facility] SPINAL 7 CANAL ORTHOPAED LUMBAR ICS PSC W/O CONTRAST MATERIAL CREATINE 34287 [place] [facility] KINASE MB 7 [facility] FRACTION INC INC ONLY COMPREHEN 36633 [place] [facility] SIVE 7 [facility] METABOLIC INC INC PANEL APPLICATI 76018 [place] [facility] ON 7 [facility] MODALITY INC INC 1/> AREAS HOT/COLD PACKS APPL 45735 [place] [facility] MODALITY 7 [facility] 1/> AREAS INC INC ELEC STIMJ UNATTENDE D APPL 43873 [place] [facility] MODALITY 7 [facility] 1/> AREAS INC INC TRACTION MECHANICA L THERAPEUT 91704 [place] [facility] IC PX 1/> 7 [facility] H[facility] AREAS INC INC EACH 15 MIN EXERCISES RADEX 63966 [facility] 7 [place] LUMBOSACR ORTHOPAED AL 2/[address] [place] [address] [facility] CERVICAL 7 MEDICAL MEDICAL SPINE W/O IMAGING IMAGING CONTRAST ASS ASS MATERIAL ECG 00743 [place] [facility] ROUTINE 7 [facility] ECG INC INC W/LEAST 12 LDS TRCG ONLY W/O I&R ECG 45260 [place] ROUTINE 7 [facility] W/LEAST P 12 LDS I&[place] [address] [facility] HEAD/BRAI 7 MEDICAL N W/O IMAGING CONTRAST ASS MATERIAL 25 65595 [place] [facility] HYDROXY 7 [facility] INCLUDES INC INC FRACTIONS IF PERFORMED COLLECTIO 15535 [place] [facility] N VENOUS 7 [facility] BLOOD INC INC VENIPUNCT URE CYANOCOBA 32962 [place] [facility] LYUBOV 7 [facility] VITAMIN INC INC B-12 [place] [address] [place] [facility] FOLIC 7 [facility] ACID INC INC SERUM UNCLASSIF J3490 [place] [facility] IED DRUGS 7 [facility] INC INC THERAPEUT 07025 [place] [facility] IC 7 [facility] PROPHYLAC INC INC TIC/DX INJECTION SUBQ/IM UNCLASSIF J3490 [place] [facility] IED DRUGS 7 [facility] INC INC URNLS DIP 76418 [place] [facility] 7 [facility] STICK/TAB INC INC LET REAGENT AUTO MICROSCOP Y DESTRUCTI 28984 [facility] JASSO ON BENIGN 7 LESIONS UP TO 14 [place] [address] [facility] L[facility] TRACT 7 HEALTH HEALTH UPPER [facility] W/WO DELAYED IMAGES W/KUB RADEX 30216 [place] [facility] ABDOMEN 1 7 MEDICAL IMAGING ANTEROPOS ASS TERIOR VIEW BLOOD 39094 [place] [facility] COUNT 7 [facility] COMPLETE INC INC AUTO&[place] [address] [place] [facility] INFUSION 7 [facility] THERAPY/P INC INC ROPHYLAXI S /DX 1ST TO 1 HR TX PROC G0238 [place] [facility] IMPRV 7 [facility] RESP INC INC FUNCT NOT G0237 FCE-FCE 15MIN COMPREHEN 74216 [place] [facility] SIVE 7 [facility] METABOLIC INC INC PANEL RAD EXP G9500 [place] [facility] INDICES/E 7 MEDICAL XP TM & IMAGING NUMB ASS FLUORO IMAGES DOC RADEX 01502 [place] [facility] ESOPHAGUS 7 MEDICAL IMAGING ASS ANES 91190 [facility] INTRAPERI 7 [place] TONEAL ANESTHESI UPPER A ABDOMEN W/LAPS NOS INJECTION J0330 [facility] LUTHERAN 7 [facility] SUCCINYLC [facility] HOLINE CHLORIDE UP TO 20 MG INJECTION J2405 [facility] LUTHERAN 7 [facility] ONDANSETR [facility] ON HCL PER 1 MG INJECTION J1650 [facility] LUTHERAN 7 [facility] ENOXAPARI [facility] N SODIUM 10 MG INJECTION J1100 [facility] LUTHERAN 7 [facility] DEXAMETHO [facility] SONE SODIUM PHOSPHATE 1 MG INJECTION J1170 [facility] LUTHERAN 7 [facility] HYDROMORP [facility] KURTIS UP TO 4 MG LAPS RPR 09185 [facility] GARCIA PARAESPHG 7 [facility] L HRNA MEDICAL INCL GROUP FUNDPLSTY W/O MESH INJECTION J2704 [facility] LUTHERAN PROPOFOL 7 [facility] 10 MG [facility] INJECTION J2710 [facility] LUTHERAN 7 [facility] NEOSTIGMI [facility] NE METHYLSUL FATE UP TO 0.5 MG INJECTION J3010 L[facility] LUTHERAN FENTANYL 7 [facility] CITRATE [facility] 0.1 MG COLLECTIO 77725 L[facility] LUTHERAN N VENOUS 7 [facility] BLOOD [facility] VENIPUNCT URE GLUCOSE 95386 LUT[facility] LUTHERAN QUANTITAT 7 [facility] SABIHA BLOOD [facility] XCPT REAGENT STRIP HEMOGLOBI 42132 [facility] LUTHERAN N 7 [facility] GLYCOSYLA [facility] LANEY A1C ECG 68722 [facility] ANNA ROUTINE 7 [facility] ECG MEDICAL W/LEAST GROUP 12 LDS I&R ONLY ECG 73356 [facility] LUTHERAN ROUTINE 7 [facility] ECG [facility] W/LEAST 12 LDS TRCG ONLY W/O I&R BLOOD 60832 L[facility] LUTHERAN COUNT 7 [facility] HEALTH COMPLETE [facility] [place] [address] [place] [facility] INFUSION 6 [facility] THERAPY/P INC INC ROPHYLAXI S /DX 1ST TO 1 HR BLOOD 11564 [place] COUNT 6 [facility] COMPLETE INC INC AUTO&AUTO DIFRNTL WBC RADIOLOGI 03019 [facility] C EXAM 6 MEDICAL MEDICAL CHEST 2 IMAGING IMAGING VIEWS ASS ASS FRONTAL&L ATERAL RADEX 33597 [facility] ABDOMEN 6 MEDICAL MEDICAL COMPL IMAGING IMAGING W/DCBTS&/ ASS ASS ERC VIEWS ECG 08719 [place] [facility] JR ROUTINE 6 [facility] W/LEAST P 12 LDS I&R ONLY THERAPEUT 56367 [place] [facility] IC 6 [facility] HOSP INJECTION INC [place] [address] [facility] [facility] AMYLASE 6 [facility] [place] [address] [facility] [facility] LIPASE 6 [facility] INC INC COMPREHEN 62355 [facility] [facility] SIVE 6 [facility] HOSP METABOLIC INC INC PANEL ECG 14964 [place] [facility] ROUTINE 6 [facility]OS[facility] ECG INC INC W/LEAST 12 LDS TRCG ONLY W/O I&R BLOOD 94385 [facility] OCCULT 6 [facility] PEROXIDAS INTERNAL E ACTV MED QUAL FECES 1 DETER GLUC BLD 22918 [place] [facility] GLUC MNTR 6 [facility] DEV INC [place] [address] [place] [facility] HEAD/BRAI 6 MEDICAL N W/O IMAGING CONTRAST ASS MATERIAL THERAPEUT 28198 [place] [facility] IC 6 [facility] HOSP PROPHYLAC INC INC TIC/DX INJECTION SUBQ/IM RADIOLOGI 27527 [place] [facility] ALL C 6 MEDICAL EXAMINATI IMAGING ON PELVIS ASS 1/2 VIEWS RADEX 33292 [place] [facility] ALL SACRUM & 6 MEDICAL COCCYX IMAGING MINIMUM 2 ASS VIEWS RADEX 37736 [facility] ALL SPINE 6 MEDICAL LUMBOSACR IMAGING AL ASS MINIMUM 4 VIEWS URINE 54472 [place] [facility] 6 [facility] TEST INC INC VISUAL COLOR CMPRSN METHS CUL BACT 54760 [place] [facility] XCPT 6 [facility] URINE INC INC BLOOD/STO OL AEROBIC ISOL RADEX 97595 [place] [facility] SINUSES 6 [facility] PARANASAL INC INC COMPL MINIMUM 3 [place] [address] [facility] [facility] STREPTOCO 6 [facility] CCUS INC INC GROUP A RADIOLOGI 00434 [place] [facility] C EXAM 6 [facility]OS[facility] CHEST 2 INC INC VIEWS FRONTAL&L ATERAL BLOOD 12114 [place] [facility] COUNT 6 [facility] COMPLETE INC INC AUTO&AUTO DIFRNTL WBC IAADI 17936 [facility] [facility] INFLUENZA 6 [facility] B VIRUS INC INC IAADI 43922 [place] [facility] INFFLUENZ 6 [facility] A VIRUS INC INC DECALCIFI 15208 [facility] CATION [facility] [place] [address] [facility] SURG [facility] ER [facility] PATHOLOGY GROSS&BRYCE ROSCOPIC EXAM ANESTHESI 46256 COMMUNITY FEEBACK A NOSE & 6 ANESTH ACCESSORY OF THE SINUSES BLUE NOS ECG 12608 [place] [facility] ROUTINE 6 [facility] ECG INC INC W/LEAST 12 LDS TRCG ONLY W/O I&R ECG 87685 [place] ROUTINE 6 [facility] W/LEAST P 12 LDS I&R ONLY BLOOD 97907 [place] [facility] COUNT 6 [facility] COMPLETE INC INC AUTO&AUTO DIFRNTL WBC ANTIBODY 13978 [place] [facility] HERPES 6 [facility] SMPLX INC INC TYPE 1 ANTIBODY 44107 [place] [facility] VIRUS NOT 6 [facility] INC INC ELSEWHERE SPECIFIFE D COMPREHEN 71509 [place] [facility] SIVE 6 [facility] METABOLIC INC INC PANEL COLLECTIO 88279 [place] [facility] N VENOUS 6 [facility] [place] [address] [facility] HARLEEN MAXILLOFA 6 MEDICAL ADRIANNA CIAL W/[place] [address] [place] BEINEKE CERVICAL 6 MEDICAL SPINE W/O IMAGING CONTRAST ASS MATERIAL URINE 83057 [place] [facility] 6 [facility] TEST INC [place] [address] [facility] HEAD/BRAI 6 MEDICAL N W/O IMAGING CONTRAST ASS MATERIAL COMPRE 34225 MAEGAN ISSA AUDIOMETR 6 JARON JARON Y THRESHOLD EVAL SP RECOGNIJ TYMPANOME 90922 MAEGAN ISSA TRY 6 JARON JARON DISTORT 52170 MAEGAN ISSA PRODUCT 6 JARON JARON EVOKED OTOACOUST IC EMISNS LIMITD PULMONARY 97316 [place] NO[place]UEIR[place] STRESS 6 MEDICAL TESTING SERV SIMPLE FOUNDATIO N GAS 63100 [place] MELANIE DILUT/WAS 6 MEDICAL MEDICAL HOUT LUNG SERV SERV VOL W/WO FOUNDATIO FOUNDAT[place] DISTRIB N N VENT&[place] [address] [place] NO[place] DIFFUSING 6 MEDICAL CAPACITY SERV FOUNDATIO N ELIG CLIN G8427 STAMPING RODRIGUEZ TRI ATTSTS 6 GROUND DOC M REC FAMILY OBTD CLINI UPD/REV PT MEDS ECG 56909 [place] ROUTINE 6 [facility] W/LEAST P 12 LDS I&R ONLY IM ADM 31109 [facility] PRQ ID 6 [facility] SUBQ/IM HLTH DEPT HLTH DEPT NJXS EA JAZZ JAZZ VACCINE SKIN TEST 87026 [facility] 6 [facility] TUBERCULO HLTH DEPT HLTH DEPT SIS JAZZ JAZZ INTRADERM AL SYPHILIS 83835 [facility] TEST 6 [facility] DISTRICT NON-TREPO HLTH DEPT HLTH DEPT NEMAL JAZZ JAZZ ANTIBODY QUAL BLOOD 88629 [place] [facility] COUNT 6 [facility] COMPLETE INC INC AUTO&AUTO DIFRNTL WBC IM ADM 08325 [facility] PRQ ID [facility] SUBQ/IM HLTH DEPT HLTH DEPT NJXS 1 JAZZ JAZZ VACCINE TDAP 02094 [facility] VACCINE 7 6 [facility] DISTRICT YRS/> IM HLTH DEPT HLTH DEPT JAZZ JAZZ BLOOD 88228 [place] [facility] OCCULT 6 [facility] PEROXIDAS INC INC E ACTV QUAL FECES 1-3 SPEC COLLECTIO 81876 [place] [facility] N VENOUS 6 [facility] BLOOD INC INC VENIPUNCT URE XTRNL ECG 58870 [place] [facility] 6 [facility] S RHYTHM P W/I&R UP TO 48 HRS ECG 55697 [place] ROUTINE 6 [facility] W/LEAST P 12 LDS I&R ONLY SPMTRY 96543 ALLERGY ROSENTHAL MAR W/VC 6 [employer] [place] CO W/WO MXML VOL VNTJ ANTINUCLE 84718 [place] AR 6 [facility] ANTIBODIE INC INC S SANNA NITRIC 19675 ALLERGY ROSENTHAL MAR OXIDE 6 [facility] [place] [facility] DETERMINA TION BLOOD 30768 [place] COUNT 6 [facility] RETICULOC INC INC YTE AUTOMATED BLOOD 17559 [place] COUNT 6 [facility] COMPLETE INC INC AUTO&AUTO DIFRNTL WBC RHEUMATOI 94217 [place] Mor[place] FACTOR 6 [facility] HOSP QUANTITAT INC INC SABIHA PROF SVCS 87196 ALLERGY ROSENTHAL MAR ALLG 6 [facility] IMMNTX X OF [place] W/PRV CO ALLGIC XTRCS NJXS SEDIMENTA 23253 [place] [facility] TION RATE 6 [facility] RBC INC INC NON-AUTOM ATED GROUND A0425 [facility] MILEAGE 6 AMBULANCE PATY PER SERVICE STATUTE MILE AMBULANCE A0429 [facility] SERVICE 6 AMBULANCE PATY BLS SERVICE EMERGENCY TRANSPORT BONE 42581 [place] [facility] &/JOINT 6 [facility] IMAGING INC INC WHOLE BODY SEDIMENTA 31752 [place] [facility] TION RATE 6 [facility] RBC INC INC NON-AUTOM ATED BLOOD 35328 [place] COUNT 6 [facility] COMPLETE INC INC AUTO&AUTO DIFRNTL WBC BLOOD 95956 [place] COUNT 6 [facility] HOSP RETICULOC INC INC YTE AUTOMATED TECHNETIU A9503 [place] Montenegro TC-99M 6 [facility]P MEDRONATE INC INC DX UP TO 30 MCI COLLECTIO 53928 [place] [facility] N VENOUS 6 [facility] BLOOD INC INC VENIPUNCT URE BASIC 11073 [place] [facility] METABOLIC 6 [facility] PANEL INC INC CALCIUM TOTAL RADIOLOGI 72612 [facility] C EXAM 6 MEDICAL MEDICAL CHEST 2 IMAGING IMAGING VIEWS ASS ASS FRONTAL&L ATERAL ANES 05295 [facility] BRITTNY LOWER 6 ANESTHESI INTESTINE A GROUP [place] [address] [place] [facility] THYROXINE 6 [facility] TOTAL INC INC COLLECTIO 91906 [place] [facility] N VENOUS 6 [facility] BLOOD INC INC VENIPUNCT URE GONADOTRO 33024 [place] [facility] PIN 6 [facility] FOLLICLE INC INC STIMULATI NG HORMONE GONADOTRO 92146 [place] [facility] PIN 6 [facility] [place] [address] [facility] [facility] THYROID 6 [facility] STIMULATI INC INC NG HORMONE TSH THYROID 60955 [place] [facility] HORM 6 [facility] UPTK/THYR INC INC OID HORMONE BINDING RATIO GROUND A0425 [facility] MILEAGE 6 AMBULANCE KILO PER SERVICE STATUTE MILE ECG 81144 [place] MATUTE ROUTINE 6 [facility] W/LEAST P 12 LDS I&R ONLY RADIOLOGI 72112 [facility] C 6 MEDICAL MEDICAL EXAMINATI IMAGING IMAGING ON CHEST ASS ASS SINGLE VIEW FRONTAL AMB A0427 [facility] SERVICE 6 AMBULANCE KILO ALS SERVICE EMERGENCY TRANSPORT LEVEL 1 PREPJ& 49972 ALLERGY ROSENTHAL MAR ALLERGEN 6 [facility] IMMUNOTHE OF TRE PEREZ CO 1/SHEET METAL [place] [address] [place] [facility] INFUSION 6 [facility] THERAPY INC INC PROPHYLAX IS/[place] [address] [place] [facility] HEAD/BRAI 6 [facility] N W/O INC INC CONTRAST MATERIAL RADIOLOGI 69190 [place] [facility] C 6 [facility] EXAMINATI INC INC ON KNEE 3 VIEWS CREATINE 91582 [place] [facility] KINASE 6 [facility] TOTAL INC INC COMPREHEN 08514 [place] SIVE 6 [facility] METABOLIC INC INC PANEL CREATINE 30427 [place] [facility] KINASE MB 6 [facility] FRACTION INC INC ONLY ECG 66839 [place] MATUTE ROUTINE 6 [facility] W/LEAST P 12 LDS I&R ONLY ECG 06255 [place] ROUTINE 6 [facility] HOSP ECG INC INC W/LEAST 12 LDS TRCG ONLY W/O I&[place] [address] [place] [facility] TROPONIN 6 [facility] HOSP QUANTITAT INC INC SABIHA BLOOD 88501 [place] COUNT 6 [facility] COMPLETE INC INC AUTO&[place] [address] [place] INFUSION 6 [facility] HOSP THERAPY/P INC INC ROPHYLAXI S /DX [address] [place] [address] [place] [address] [place] [facility] CERVICAL 6 [facility] HOS[facility] SPINE W/O INC INC CONTRAST MATERIAL PERCUTANE 81618 ALLERGY ROSENTHAL MAR OUS TESTS 6 [facility] [place] W/ALLERGE CO LEO EXTRACTS INTRACUTA 38419 ALLERGY ROSENTHAL MAR NEOUS 6 PART[facility]ERS TESTS OF [place] W/ALLERGE CO LEO EXTRACTS SPACR A4627 [facility] KRASNOPOL BAG/RESRV 6 EQUIPMENT ANTONIO LAUREN OR W/WO INC MASK W/METRD DOSE INHAL SPMTRY 63186 ALLERGY ROSENTHAL MAR W/VC 6 [facility] EXPIRATOR OF [place] Y ABHI CO W/WO MXML VOL VNTJ NITRIC 86628 ALLERGY ROSENTHAL MAR OXIDE 6 [facility] [place] [address] [facility] KAM TRANSVAGI 6 PHYSICIAN MEAGAN NAL S GROUP ECG 54909 [place] CHAVEZ JR ROUTINE 6 [facility] W/LEAST P 12 LDS I&R ONLY IADNA 19859 [place] NEISSERIA 6 [facility] INC INC GONORRHOE AE AMPLIFIED PROBE TQ IADNA 59896 [place] [facility] CHLAMYDIA 6 [facility] INC INC TRACHOMAT [place] [address] [facility] TRACT 6 N N UPPER COMMUNTIY COMMUNTIY W/WO HOSPITA HOSPITA DELAYED IMAGES W/KUB ECG 55022 [place] MATUTE ROUTINE 6 [facility] W/LEAST P 12 LDS I&R ONLY RADIOLOGI 33794 [place] SAQIB ALL C 6 MEDICAL EXAMINATI IMAGING ON CHEST ASS SINGLE VIEW FRONTAL ELECTROEN 68618 [facility] CEPHALOGR 6 N AM W/REC NEUROLOGY AWAKE&ASL EEP ECG 77497 [place] MATUTE ROUTINE 6 [facility] W/LEAST P 12 LDS I&[place] [address] [facility] ABDOMEN & 6 MEDICAL MEDICAL PELVIS IMAGING IMAGING W/CONTRAS ASS ASS T MATERIAL ELECTROEN 62462 [facility] CEPHALOGR 6 N N AM W/REC COMMUNTIY COMMUNTIY AWAKE&CHUCKY HOSPITA HOSPITA WSY ECG 04926 [place] CHAVEZ JR ROUTINE 6 [facility] W/LEAST P 12 LDS I&R ONLY RADEX 10419 [facility] SAQIB ALL SPINE 6 MEDICAL THORACIC IMAGING 2 VIEWS ASS RADIOLOGI 27869 [place] SAQIB ALL C 6 MEDICAL EXAMINATI IMAGING ON CHEST ASS SINGLE VIEW FRONTAL SCREENING G0202 [facility] HARLEEN 6 MEDICAL ADRIANNA MAMMOGRAP IMAGING HY WILBERT ASS INCL CAD WHEN PERFORMD COMPUTER- 96555 [place] HARLEEN AIDED 6 MEDICAL ADRIANNA DETECTION IMAGING ASS SCREENING MAMMOGRAP HY ECG 16079 [place] [facility] ROUTINE 6 [facility] ECG INC INC W/LEAST 12 LDS TRCG ONLY W/O I&[place] [address] [place] [facility] INFUSION 6 [facility] THERAPY/P INC INC ROPHYLAXI S /DX 1ST TO 1 HR BLOOD 39029 [place] [facility] COUNT 6 [facility] COMPLETE INC INC AUTO&[place] [address] [place] [facility] TROPONIN 6 [facility] HOSP QUANTITAT INC INC SABIHA RADEX ABD 60731 SEJAL CERRATO ALL COMPL 6 MEDICAL AQT ABD IMAGING W/S/E/D ASS VIEWS 1 VIEW ECG 08812 [place] CHAVEZ JR ROUTINE 6 [facility] W/LEAST P 12 LDS I&[place] [address] [place] LACTATE 6 [facility] INC INC COMPREHEN 71847 [place] SIVE 6 [facility] METABOLIC INC INC PANEL URNLS DIP 29520 [place] [facility] 6 [facility] STICK/TAB INC [place] [address] [place] [facility] INFUSION 6 [facility] THERAPY/P INC INC ROPHYLAXI S /DX 1ST TO 1 HR BLOOD 81272 [place] [facility] COUNT 6 [facility] COMPLETE INC INC AUTO&[place] [address] [place] [facility] TROPONIN 6 [facility] QUANTITAT INC INC SABIHA RADIOLOGI 74540 SEJAL CERRATO ALL C EXAM 6 MEDICAL CHEST 2 IMAGING VIEWS ASS FRONTAL&L ATERAL ECG 45218 [place] [facility] ROUTINE 6 [facility] ECG INC INC W/LEAST 12 LDS TRCG ONLY W/O I&R ECG 55967 [place] MATUTE ROUTINE 6 [facility] W/LEAST P 12 LDS I&R ONLY COMPREHEN 58386 AUSTINKIMBERLY TALLEYON SIVE 6 [facility] METABOLIC INC INC PANEL URINE 26028 [place] [facility] 6 [facility] TEST INC INC VISUAL COLOR CMPRSN METHS CREATINE 13680 [place] KINASE MB 6 [facility] FRACTION INC INC ONLY URNLS DIP 05892 [place] [facility] 6 [facility] STICK/TAB INC INC LET REAGENT AUTO MICROSCOP Y CREATINE 69458 [place] KINASE 6 [facility] TOTAL INC INC CULTURE 37886 [place] BACTERIAL 6 [facility] INC INC QUANTTATI VE COLONY COUNT URINE RADEX ABD 35340 KAITLINBERNADINE CERRATO ALL COMPL 6 MEDICAL AQT ABD IMAGING W/S/E/D ASS VIEWS 1 VIEW CH AMB A0427 [facility] SERVICE 6 AMBULANCE AMBULANCE ALS SERVICE SERVICE EMERGENCY TRANSPORT LEVEL 1 GROUND A0425 [facility] MILEAGE 6 AMBULANCE AMBULANCE PER SERVICE SERVICE STATUTE MILE THER 45349 [facility] PROPH/DX 6 N N NJX IV COMMUNTIY COMMUNTIY PUSH HOSPITA HOSPITA SINGLE/1S T SBST/[place] [address] [facility] INFUSION 6 N N HYDRATION COMMUNTIY COMMUNTIY EACH HOSPITA HOSPITA ADDITIONA L HOUR BLOOD 77010 [facility] COUNT 6 N N COMPLETE COMMUNTIY COMMUNTIY AUTO&AUTO HOSPITA HOSPITA DIFRNTL WBC MRI BRAIN 44342 [facility] BRAIN 6 N N STEM W/O COMMUNTIY COMMUNTIY CONTRAST HOSPITA HOSPITA MATERIAL COMPREHEN 33313 [facility] SIVE 6 N N METABOLIC COMMUNTIY COMMUNTIY PANEL HOSPITA HOSPITA COLLECTIO 46854 [facility] N VENOUS 6 N N BLOOD COMMUNTIY COMMUNTIY VENIPUNCT HOSPITA HOSPITA URE RADIOLOGI 21646 [facility] CERRATO ALL C 6 MEDICAL EXAMINATI IMAGING [place] [address] [place] CERRATO ALL HEAD/BRAI 6 MEDICAL N W/O IMAGING CONTRAST ASS MATERIAL AMB A0427 [facility] SERVICE 6 AMBULANCE AMBULANCE ALS SERVICE SERVICE [place] [address] [facility] ALL ABDOMEN & 6 MEDICAL PELVIS IMAGING W/O ASS CONTRAST MATERIAL GROUND A0425 [facility]ANCE AM[facility]ULANCE PER SERVICE SERVICE STATUTE MILE ECG 23498 [place] MAT[place] ROUTINE 6 [facility] W/LEAST P 12 LDS I&R ONLY THERAPEUT 73618 [facility] IC PX 1/> 6 AREAS EACH 15 MIN EXERCISES CHIROPRAC 60483 [facility] TIC 6 MANIPLTV TX EXTRASPIN AL 1/> REGION CHIROPRAC 27112 [facility] TIC 6 MANIPULAT SABIHA TX SPINAL 3-4 REGIONS MANUAL 07028 [facility] THERAPY 6 TQS 1/> REGIONS EACH 15 MINUTES MANUAL 85358 [facility] THERAPY 6 TQS 1/> REGIONS EACH 15 MINUTES THERAPEUT 75688 [facility] LUK[facility] IC PX 1/> 6 AREAS EACH 15 MIN EXERCISES THERAPEUT 91220 [facility] LUKING IC PX 1/> 6 MATTI MATTI AREAS EACH 15 MIN EXERCISES CHIROPRAC 79718 [facility] TIC 6 MATTI MATTI MANIPLTV TX EXTRASPIN AL 1/> REGION MANUAL 24667 [facility] THERAPY 6 MATTI MATTI TQS 1/> REGIONS EACH 15 MINUTES CHIROPRAC 09976 [facility] TIC 6 MATTI MATTI MANIPULAT SABIHA TX SPINAL 3-4 REGIONS COMPREHEN 59791 [facility] SIVE 6 DIAGNOSTI DIAGNOSTI METABOLIC CS CS PANEL IMHISTOCH 35136 SCALF LEI SCALF LEI EM/CYTCHM 6 1ST [place]ED[place] [address] SCALF LEI SCALF LEI SURG 6 PATHOLOGY GROSS&BRYCE ROSCOPIC EXAM BX SKIN 42633 SCALF LEI SCALF LEI SUBCUTANE 6 OUS&/MUCO US MEMBRANE 1 LESION ECG 86678 [place] MATUTE ROUTINE 6 [facility] W/LEAST P 12 LDS I&R ONLY ECG 51757 DOMINICK ANDRES ROUTINE 6 [facility] ECG MEDICAL W/LEAST GROUP 12 LDS I&R ONLY BLOOD 65684 LUTHERAN LUTHERAN COUNT 6 HEALTH HEALTH COMPLETE [facility] AUTOMATED GONADOTRO 97911 LUTHERAN LUTHERAN PIN 6 HEALTH HEALTH CHORIONIC [facility] QUANTITAT SABIHA INJECTION J3010 LUTHERAN LUTHERAN FENTANYL 6 HEALTH HEALTH CITRATE [facility] 0.1 MG HEMOGLOBI 76091 LUTHERAN LUTHERAN N 6 HEALTH HEALTH GLYCOSYLA [facility] LANEY A1C BASIC 40395 LUTHERAN LUTHERAN METABOLIC 6 HEALTH HEALTH PANEL [facility] CALCIUM TOTAL LOCM Q9967 LUTHERAN LUTHERAN [phone] 6 HEALTH HEALTH MG/ML [facility] IODINE CONCENTRA TION PER ML CATH PLMT 86323 LUTHERANBerenice ANDRES L HRT & 6 HEALTH IV ARTS MEDICAL W/NJX & GROUP ANGIO IMG S&I INJECTION J1644 LUTHERAN LUTHERAN HEPARIN 6 [facility] SODIUM [facility] PER 1000 UNITS COLLECTIO 33433 LUTHERAN LUTHERAN N VENOUS 6 [facility] BLOOD [facility] VENIPUNCT URE LIPID 73520 LUTHERAN LUTHERAN PANEL 6 [facility] ECHO 28729 MELANIE STERN TTHRC R-T 6 MEDICAL 2D SERV W/WOM-MOD FOUNDATIO E COMPL N SPEC&COLR D CV STRS 23805 [place] TALLEYON TST [address] [facility]&/OR [facility] RX CONT P P ECG W/O I&R CV STRS 02922 [place] TST 6 [facility] HOS[facility] XERS&/OR INC INC RX CONT ECG TRCG ONLY TECHNETIU A9500 [place] Monten[place]ro TC-99M 6 [facility] HOSP SESTAMIBI INC INC DX PER STUDY DOSE CV STRS 84438 [place] TST [address] [facility]/OR [facility] RX CONT P P ECG I&R ONLY UNCLASSIF J3490 [place] IED DRUGS 6 [facility] HOSP INC INC MYOCARDIA 96906 [place] Ortega SPECT 6 [facility] HOSP MULTIPLE INC INC STUDIES ECG 61022 [place] CHAVEZ JR ROUTINE 6 [facility] W/LEAST P 12 LDS I&R ONLY RADIOLOGI 72291 [place] CERRATO ALL C 6 MEDICAL EXAMINATI IMAGING ON CHEST ASS SINGLE VIEW FRONTAL OPHTH 77802 [facility] MEDICAL 6 XM&EVAL COMPRHNSV ESTAB PT 1/> 25 67018 [facility] HYDROXY 6 MAI MAI INCLUDES [facility] [place] [address] LAB [facility]ESH LAB MAHESH FERRITIN 6 MAI MAI [facility] COMPREHEN 25375 LAB [facility]ESH SIVE 6 MAI MAI METABOLIC [facility] PANEL ORGANIC 53287 LAB [facility] ACID 1 6 MAI MAI QUANTITAT [place] [address] LAB [facility]ESH MAGNESIUM 6 [place] [address] LAB [facility] LAB MAHESH IRON 6 [place] [address] LAB [facility] LAB MAHESH FOLIC 6 MAI MAI [place] [address] LAB [facility] LAB MAHESH PARATHORM 6 MAI [place] [address] LAB MAHESH LAB MAHESH PHOSPHORU 6 [facility] [place] [address] LAB MAHESH LAB MAHESH THIAMINE- 6 [facility] VITAMIN HOLD[facility] HOLD[place] B-1 [place] [address] LAB MAHESH LAB MAHESH TOCOPHERO 6 [facility] L ALPHA [place] [address] LAB [facility] LAB MAHESH VITAMIN A 6 MAI MAI [facility]INGS HOLDINGS PREALBUMI 75032 LAB [facility] LAB MAHESH N 6 MAI MAI HOLDINGS HOLDINGS BLOOD 58772 [facility] LAB [facility] COUNT 6 MAI MAI COMPLETE [facility] HOLDINGS AUTO&[place] [address] LAB [facility] LAB [facility] ZINC 6 MAI MAI HOLDINGS HOLDINGS BLOOD 31752 [place] COUNT 6 [facility] COMPLETE INC INC AUTO&[place] [address] [place] THYROID 6 [facility] STIMULATI INC INC NG HORMONE TSH IRON 39038 [place] [facility] BINDING 6 [facility] [place] [address] [place] [facility] IRON 6 [place] [address] [place] VAUGHN FERRITIN 6 MEM [facility] TERA INC COLLECTIO 51670 [place] N VENOUS 6 [facility]OS[facility] BLOOD INC INC VENIPUNCT URE COMPREHEN 93781 [place] SIVE 6 [facility] METABOLIC INC INC PANEL 25 81776 [facility] HYDROXY 6 [facility] INCLUDES INC INC FRACTIONS IF PERFORMED IADNA 30539 [facility] CHLAMYDIA 6 [facility] TRACHOMAT IS AMPLIFIED PROBE TQ IADNA 61434 [facility] HUMAN [facility] PAPILLOMA VIRUS HIGH-RISK TYPES IADNA 58684 [facility], [facility] NEISSERIA 6 [facility] GONORRHOE AE AMPLIFIED PROBE TQ CYTP C/V 83488 [facility], [facility] AUTO THIN 6 [facility] LYR PREPJ SCR MNL RESCR PHYS CYTP 99402 [facility], [facility] CERVICAL/ 6 LLC V[place] [address] [place] THYROID 6 [facility] STIMULATI INC INC NG HORMONE TSH COLLECTIO 65686 [place] [facility] N VENOUS 6 [facility] BLOOD INC INC VENIPUNCT URE BASIC 04454 [place] [facility] METABOLIC 6 [facility] [place] [address] [place] [facility] IRON 6 [facility] INC INC COMPREHEN 79100 [place] SIVE 6 [facility] METABOLIC INC INC PANEL COLLECTIO 14876 [place] [facility] N VENOUS 6 [facility] [place] [address] [place] [facility] FERRITIN 6 [facility] INC INC ORGANIC 83385 [place] [facility] ACID 1 6 [facility] QUANTITAT INC INC SABIHA PREALBUMI 89655 [place] [facility] N 6 [facility] INC INC BLOOD 95481 [place] [facility] COUNT 6 [facility] COMPLETE INC INC AUTO&[place] [address] [place] [facility] THIAMINE- 6 [facility] VITAMIN INC INC B-[address] [place] [address] LAB MAHESH LAB MAHESH THIAMINE- 5 MAI MAI VITAMIN HOLDINGS HOLDINGS B-1 PREALBUMI 57912 LAB MAHESH LAB MAHESH N 5 [place] [address] LAB MAHESH LAB MAHESH FERRITIN 5 MAI MAI HOLDINGS HOLDINGS ORGANIC 09301 LAB MAHESH LAB MAHESH ACID 1 5 MAI MAI QUANTITAT [place] [address] LAB MAHESH LAB MAHESH FOLIC 5 MAI MAI [place] [address] LAB MAHESH LAB MAHESH IRON 5 MAI MAI HOLDINGS HOLDINGS GENERAL 62379 LAB MA[facility]ESH LAB MAHESH HEALTH 5 [facility] PANEL HOLDINGS HOLDINGS DESTRUCTI 91148 ATKINS ATKINS ON BENIGN 5 TRA TRA LESIONS UP TO 14 DESTRUCTI 45373 ATKINS ATKINS ON 5 TRA TRA PREMALIGN ANT LESION 1ST BIOPSY 30917 ATKINS ATKINS SKIN 5 TRA TRA SUBQ&/MUC [place]US [place] [address] SCALF LEI SCALF LEI SURG 5 PATHOLOGY GROSS&BRYCE ROSCOPIC EXAM BX SKIN 45426 ATKINS ATKINS SUBCUTANE 5 TRA TRA OUS&/MUCO US MEMBRANE 1 [place] [address] LAB MAHESH LAB MAHESH THIAMINE- 5 [facility] VITAMIN HOLDINGS HOLDINGS B-1 PREALBUMI 24468 LAB MAHESH LAB MAHESH N 5 [facility] HOLDINGS HOLDINGS BLOOD 19146 LAB MAHESH LAB MAHESH COUNT 5 [facility] COMPLETE HOLDINGS HOLDINGS AUTO&[place] [address] LAB MAHESH LAB MAHESH FOLIC 5 [facility] [place] [address] LAB MAHESH LAB MAHESH IRON 5 [facility] HOLDINGS HOLDINGS ORGANIC 29486 LAB MAHESH LAB MAHESH ACID 1 5 [facility] QUANTITAT HOLDINGS HOLDINGS SABIHA COMPREHEN 06309 LAB MAHESH LAB MAHESH SIVE 5 [facility] METABOLIC HOLDINGS HOLDINGS PANEL COMPUTER- 19853 [facility] BEINE AIDED 5 MEDICAL CARMEN DETECTION IMAGING ASS SCREENING MAMMOGRAP HY SCREENING G0202 [facility] 5 MEDICAL CARMEN MAMMOGRAP IMAGING HY WILBERT ASS INCL CAD WHEN PERFORMD BLOOD 60264 [place] [facility] COUNT 5 [facility] COMPLETE INC INC AUTO&[place] [address] [place] [facility] THYROID 5 [facility] STIMULATI INC INC NG HORMONE TSH HEMOGLOBI 45178 [place] [facility] N 5 [facility]OS[facility] GLYCOSY[place] [address] [facility] GLUTAMYLT 5 [facility] RASE INC INC GAMMA CYANOCOBA 09094 [place] [facility] LYUBOV 5 [facility] VITAMIN INC INC B-12 COMPREHEN 32120 [place] SIVE 5 [facility] METABOLIC INC INC PANEL COLLECTIO 27774 [place] [facility] N VENOUS 5 [facility] BLOOD INC INC VENIPUNCT URE LIPID 70975 [place] [facility] PANEL 5 [facility] INC INC 25 93725 [place] [facility] HYDROXY 5 [facility] INCLUDES INC INC FRACTIONS IF PERFORMED OPHTH 62205 SCIFRES SCIFRES MEDICAL 5 ANG ANG XM&EVAL COMPRHNSV ESTAB PT 1/> [place] [address] [facility] SCALF HUBER ABDOMEN & 5 RADIOLOGY PELVIS W/[place] [address] [facility] ALL ABDOM[facility] & 5 MEDICAL PELVIS IMAGING W/CONTRAS ASS T MATERIAL BLOOD 65352 [place] [facility] COUNT 5 [facility] COMPLETE INC INC AUTO&AUTO DIFRNTL WBC CULTURE 79972 [place] [facility] BACTERIAL 5 [facility] INC INC QUANTTAT[place] [address] [place] [facility] LIPASE 5 [facility] INC INC URNLS DIP 38873 [place] [facility]A 5 [facility] STICK/TAB INC INC LET REAGENT AUTO MICROSCOP Y COMPREHEN 61417 [place] [facility] SIVE 5 [facility] METABOLIC INC INC PANEL URINE 45498 [place] AVILA 5 [facility] TEST INC [place] [address] [place] [facility] AMYLASE 5 [place] [address] [facility] AMYLASE 5 N N COMMUNTIY COMMUNTIY HOSPITA HOSPITA COMPREHEN 26921 [facility] SIVE 5 N N METABOLIC COMMUNTIY COMM[place]TI[place] [address] [facility] PARATHORM 5 N N ONE COMMUNTIY COMMUNTIY HOSPITA HOSPITA ORGANIC 04698 [facility] ACID 1 5 N N QUANTITAT COMMUNTIY [place] [address] [facility] FOLIC 5 N N ACID COMMUNTIY [place] [address] [facility] LIPASE 5 N N [place] [address] [facility] MAGNESIUM 5 N N COMMUNTIY COMMUNTIY HOSPITA HOSPITA COLLECTIO 68813 [facility] N VENOUS 5 N N BLOOD COMMUNTIY COMMUNTIY VENIPUNCT HOSPITA HOSPITA URE 25 11833 [facility] HYDROXY 5 N N INCLUDES COMMUNTIY COMMUNTIY FRACTIONS HOSPITA HOSPITA IF PERFORMED BLOOD 62316 [facility] COUNT 5 N N COMPLETE COMMUNTIY COMMUNTIY AUTO&AUTO [place] [address] [facility] ZINC 5 N N [place] [address] [facility] VITAMIN A 5 N N [place] [address] [facility] TOCOPHERO 5 N N L ALPHA COMMUNTIY COMMUNTIY VITAMIN E HOSPITA HOSPITA PREALBUMI 77765 [facility] N 5 N [place] [address] [facility] [place] [facility]RE[facility] ABDOMINAL 5 RADIOLOGY RHO REAL [place] W/[place] [address] [facility] THIAMINE- 5 N N VITAMIN COMMUNTIY COMMUNTIY B-[place] [address] [facility] PHOSPHORU 5 N N S COMMUNTIY COMM[place] [address] [facility]I [facility] TONE[facility] [place] TIME W/[place] [address] [place] [facility] [facility] RETROPERI 5 MEDICAL TONEAL IMAGING REAL TIME ASS W/IMAGE LIMITED PROTHROMB [id number] [facility] IN TIME 5 N N COMMUNTIY [place] [address] [facility] HEPATITIS 5 N N B COMMUNTIY COMMUNTIY SURFACE HOSPITA HOSPITA ANTIGEN HEPATITIS 78006 [facility] B CORE 5 N N ANTIBODY COMMUNTIY COMMUNTIY HBCAB HOSPITA HOSPITA TOTAL HEPATITIS 35691 [facility] B SURF 5 N N ANTIBODY COMMUNTIY COMMUNTIY HBSAB HOSPITA HOSPITA BLOOD 79440 [facility] COUNT 5 N N COMPLETE COMMUNTIY COMMUNTIY AUTOMATED HOSPITA HOSPITA HEPATITIS 81025 [facility] C 5 N N ANTIBODY COMMUNTIY COMMUNTIY HOSPITA HOSPITA COLLECTIO 79199 [facility] N VENOUS 5 N N BLOOD COMMUNTIY COMMUNTIY VENIPUNCT HOSPITA HOSPITA URE ANTINUCLE 88040 [facility] AR 5 N N ANTIBODIE COMMUNTIY COMMUNTIY S SANNA HOSPITA HOSPITA COMPREHEN 97539 [facility] SIVE 5 N N METABOLIC COMMUNTIY COMMUNTI[place] [address] [facility] FERRITIN 5 N N COMMUNTIY COMMUNTIY HOSPITA HOSPITA IMMUNOASS 38822 [facility] AY 5 N N ANALYTE COMMUNTIY COMMUNTIY QUAL/SEMI HOSPITA [place] [address] [facility] IRON 5 N N COMMUNTI[place] [address] [facility] GAMMAGLOB 5 N N ULIN IGA COMMUNTIY COMMUNTIY IGD IGG HOSPITA HOSPITA IGM EACH IRON 11496 [facility] BINDING 5 N N CAPACITY COMMUNTIY COMMUNTIY HOSPITA HOSPITA ALPHA-1-A 56988 [facility] NTITRYPSI 5 N N N [place] [address] [facility] ABDOMEN & 5 MEDICAL PELVIS IMAGING W/O ASS CONTRAST MATERIAL DUP-SCAN [id number] [facility] XTR VEINS 5 N N COMPLETE COMMUNTIY COMMUNTIY [place]OS[place] [address] [facility] LIPASE 5 N N COMMUNTIY COMMUNTIY HOSPITA HOSPITA COMPREHEN 48624 [facility] SIVE 5 N N METABOLIC COMMUNTIY COMMUNTI[place] [address] [facility] AMYLASE 5 N N COMMUNTIY COMMUNTIY HOSPITA HOSPITA COLLECTIO 19983 [facility] N VENOUS 5 N N BLOOD COMMUNTIY COMMUNTIY VENIPUNCT HOSPITA HOSPITA URE BLOOD 58395 [facility] COUNT 5 N N COMPLETE COMMUNTIY COMMUNTIY AUTO&AUTO HOSPITA [place] [address] [place] SCALF HUBER TRACT 5 RADIOLOGY UPPER W/WO DELAYED IMAGES W/KUB LAPS 68091 [facility] SANCHEZ MICHELLE GSTRC 5 RSTRICTIV BARIATRIC PX SURGICAL LONGITUDI NAL GASTRECTO MY ANES IPR 72711 [facility] ANT UPPER 5 ANESTHESI ABDOMEN A GROUP LAPS PS GASTRIC RSTCV MO LAPAROSCO 4382 [facility] PIC 5 N N VERTICAL COMMUNTIY COMMUNTIY SLEEVE HOSPITA HOSPITA GASTRECTO MY OTHER 4513 [facility] ENDOSCOPY 5 N N OF SMALL COMMUNTIY COMMUNTIY HOSPITA HOSPITA INTESTINE APPLICATI 88939 [facility] [facility] ON 5 [facility] MODALITY INC INC 1/> AREAS HOT/COLD PACKS APPL 48476 [facility] [facility] MODALITY 5 [facility] 1/> AREAS INC INC ULTRASOUN D EA 15 MIN APPL 57836 [place] [facility] MODALITY 5 [facility] 1/> AREAS INC INC ELEC STIMJ UNATTENDE D BLOOD 20209 [facility] COUNT 5 N N COMPLETE COMMUNTIY COMMUNTIY AUTOMATED HOSPITA HOSPITA GONADOTRO 19876 [facility] PIN 5 N N CHORIONIC COMMUNTIY COMMUNTIY HOSPITA HOSPITA QUALITATI VE COLLECTIO 25782 [facility] N VENOUS 5 N N BLOOD COMMUNTIY COMMUNTIY VENIPUNCT HOSPITA HOSPITA URE COMPREHEN 78901 [facility] SIVE 5 N N METABOLIC COMMUNTIY COMMUNTIY PANEL HOSPITA HOSPITA DUP-SCAN 40440 [place] [facility] XTR VEINS 5 [facility] COMPLETE INC INC BILATERAL STUDY APPL 64781 [place] [facility] MODALITY 5 [facility] 1/> AREAS INC INC ULTRASOUN D EA 15 MIN APPLICATI 49974 [place] [facility] ON 5 [facility] MODALITY INC INC 1/> AREAS HOT/COLD PACKS APPL 17930 [place] [facility] MODALITY 5 [facility] 1/> AREAS INC INC ELEC STIMJ UNATTENDE D THERAPEUT 81745 [facility] [facility] IC PX 1/> 5 [facility] AREAS INC INC EACH 15 MIN EXERCISES SUSCEPTIB 60415 [place] [facility] LTY STDY 5 [facility] ANTIMICRB INC INC IAL MICRO/AGA R DILUTJ CUL BACT 92117 [place] [facility] XCPT 5 [facility] URINE INC INC BLOOD/STO OL AEROBIC ISOL APPLICATI 39046 [place] [facility] ON 5 [facility] MODALITY INC INC 1/> AREAS HOT/COLD PACKS APPL 47510 [place] [facility] MODALITY 5 [facility] 1/> AREAS INC INC ULTRASOUN D EA 15 MIN APPL 38787 [place] [facility] MODALITY 5 [facility] 1/> AREAS INC INC ELEC STIMJ UNATTENDE D THERAPEUT 59721 [facility] [facility] IC PX 1/> 5 [facility] AREAS INC INC EACH 15 MIN EXERCISES APPL 97854 [facility] MODALITY 5 [facility] 1/> AREAS INC INC IONTOPHOR ESIS EA 15 MIN APPL 72761 [place] [facility] MODALITY 5 [facility] 1/> AREAS INC INC ELEC STIMJ UNATTENDE D APPL 40793 [place] [facility] MODALITY 5 [facility] 1/> AREAS INC INC ULTRASOUN D EA 15 MIN APPLICATI 16990 [place] [facility] ON 5 [facility] MODALITY INC INC 1/> AREAS HOT/COLD PACKS APPLICATI 49602 [place] [facility] ON 5 [facility] MODALITY INC INC 1/> AREAS HOT/COLD PACKS APPL 42049 [place] [facility] MODALITY 5 [facility] 1/> AREAS INC INC ULTRASOUN D EA 15 MIN APPL 97272 [place] [facility] MODALITY 5 [facility] 1/> AREAS INC INC ELEC STIMJ UNATTENDE D APPL 85232 [place] [facility] MOD[facility]ITY 5 [facility] 1/> AREAS INC INC IONTOPHOR ESIS EA 15 MIN THERAPEUT 07780 [facility] [facility] IC PX 1/> 5 [facility] AREAS INC INC EACH 15 MIN EXERCISES ECG 97976 [facility] ROUTINE 5 N N ECG COMMUNTIY COMMUNTIY W/LEAST HOSPITA HOSPITA 12 LDS TRCG ONLY W/O I&R RADIOLOGI 61069 [facility] C EXAM 5 N N CHEST 2 COMMUNTIY COMMUNTIY VIEWS HOSPITA HOSPITA FRONTAL&[place] [address] [facility] THYROID 5 N N STIMULATI COMMUNTIY COMMUNTIY NG HOSPITA HOSPITA HORMONE TSH BLOOD 51186 [facility] COUNT 5 N N COMPLETE COMMUNTIY COMMUNTIY AUTOMATED HOSPITA HOSPITA THYROID 07166 [facility] HORM 5 N N UPTK/THYR COMMUNTIY COMMUNTIY OID HOSPITA HOSPITA HORMONE BINDING RATIO CUL 10791 [facility] PRSMPTV 5 N N PTHGNC COMMUNTIY COMMUNTIY ORGANISM HOSPITA HOSPITA SCRN W/[place] [address] [facility] THYROXINE 5 N N TOTAL COMMUNTIY COMMUNTIY HOSPITA HOSPITA LIPID 80349 [facility] PANEL 5 N N COMMUNTIY COMMUNTIY HOSPITA HOSPITA COLLECTIO 54603 [facility] N VENOUS 5 N N BLOOD COMMUNTIY COMMUNTIY VENIPUNCT HOSPITA HOSPITA URE COMPREHEN 41332 [facility] SIVE 5 N N METABOLIC COMMUNTIY COMMUNTIY PANEL HOSPITA HOSPITA PHYSICAL 36852 [place] [facility] THERAPY 5 [facility] EVALUATIO INC INC N FIBRIN 59500 [place] [facility] DGRADJ 5 [facility] PRODUCTS INC INC D-DIMER QUAL/SEMI GILBERT COLLECTIO 40120 [place] [facility] N VENOUS 5 [facility] BLOOD INC INC VENIPUNCT URE URNLS DIP 11406 [place] [facility] 5 [facility] STICK/TAB INC INC LET REAGENT AUTO MICROSCOP Y COMPREHEN 39486 [place] [facility] SIVE 5 [facility] METABOLIC INC INC PANEL ECG 09255 [place] [facility] ROUTINE 5 [facility] ECG INC INC W/LEAST 12 LDS TRCG ONLY W/O I&R ECG 28999 [place] CHAVEZ JR ROUTINE 5 [facility] W/LEAST P 12 LDS I&[place] [address] [place] [facility] TROPONIN 5 [facility] QUANTITAT INC INC SABIHA BLOOD 92320 [place] [facility] COUNT 5 [facility] COMPLETE INC INC AUTO&AUTO DIFRNTL WBC RADIOLOGI 72430 [facility] C EXAM 5 MEDICAL ADRIANNA CHEST 2 IMAGING VIEWS ASS FRONTAL&L ATERAL RADIOLOGI 19039 [facility] C EXAM 5 MEDICAL [facility]RIANNA CHEST 2 IMAGING VIEWS ASS FRONTAL&[place] [address] [facility] ANGIOGRAP 5 MEDICAL ADRIANNA HY CHEST IMAGING W/CONTRAS ASS T/NONCONT RAST BLOOD 77890 [place] [facility] COUNT 5 [facility] COMPLETE INC INC AUTO&[place] [address] [place] [facility] TROPONIN 5 [facility] QUANTITAT INC INC SABIHA ECG 48452 [place] MATUTE ROUTINE 5 [facility] W/LEAST P 12 LDS I&R ONLY ECG 92078 [place] [facility] ROUTINE 5 [facility] ECG INC INC W/LEAST 12 LDS TRCG ONLY W/O I&R FIBRIN 15250 [place] [facility] DGRADJ 5 [facility] PRODUCTS INC INC D-DIMER QUAL/SEMI GILBERT COMPREHEN 10535 [place] [facility] SIVE 5 [facility] METABOLIC INC INC PANEL LOCM Q9967 [place] [facility] 300-399 5 [facility] MG/ML INC INC IODINE CONCENTRA TION PER ML RADEX 77672 [place] [facility] SHOULDER 4 MEDICAL COMPLETE IMAGING MINIMUM 2 ASS VIEWS LEVEL III 78836 SCALF LEI SCALF LEI SURG 4 PATHOLOGY GROSS&BRYCE ROSCOPIC EXAM REPAIR 16594 ATKINS ATKINS COMPLEX 4 TRA TRA SCALP/ARM /LEG 1.1-2.5 CM DESTRUCTI 96112 ATKINS ATKINS ON BENIGN 4 TRA [place] [address] [place] [address] [place] [facility] HEAD/BRAI 4 MEDICAL ADRIANNA N W/O IMAGING CONTRAST ASS MATERIAL THERAPEUT 48349 [facility] [facility] IC 4 [facility] INJECTION INC INC IV PUSH EACH NEW DRUG SPECIAL 22251 [facility] ER JR WANDA GROUP 1 MICROORGA NISMS I&R SPCL STN 68214 [facility] 2 I&R 4 [facility] ER JR WANDA EXCPT MICROORG/ ENZYME/[place] [address] [facility], [facility] SURG 4 [facility] ER WANDA PATHOLOGY GROSS&BRYCE ROSCOPIC EXAM EGD 11516 [facility] SANCHEZ MICHELLE TRANSORAL 4 BIOPSY BARIATRIC SINGLE/MU SURGICAL LTIPLE ANES 14926 [facility] UPPER GI 4 ANESTHESI JOSE ANGEL ENDOSCOPY A GROUP PROXIMAL PS TO DUODENUM SPMTRY 76600 [place] [facility] W/VC 4 [facility] EXPIRATOR INC INC Y ABHI W/WO MXML VOL VNTJ EXC B9 19636 ADVANCED SCALF LEI LESION 4 DERMATOLO MRGN XCP GY SK TG S/N/H/F/G 1.1-2.0CM LEVEL III 73584 SCALF LEI SCALF LEI SURG 4 PATHOLOGY GROSS&BRYCE ROSCOPIC EXAM REPAIR 29425 ADVANCED SCALF LEI COMPLEX 4 DERMATOLO SCALP/ARM GY /LEG 1.1-2.5 CM RADIOLOGI 64628 [place] [facility] C EXAM 4 [facility] CHEST 2 INC INC VIEWS FRONTAL&L ATERAL REMOVAL 17751 ATKINS ATKINS SKN TAGS 4 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 FIBRQ TAGS ANY AREA UPW/15 CV STRS 72637 [place] MATUTE TST 4 [facility] RX CONT P ECG I&R ONLY CV STRS 83209 [place] [facility] TST 4 [facility] XERS&/OR INC INC RX CONT ECG TRCG ONLY ECHO 25827 MELANIE MARTINEZ TTHRC R-T 4 MEDICAL ALI 2D SERV W/WOM-MOD FOUNDATIO E COMPL SPEC&COLR D RADIOLOGI 73384 [facility] C EXAM 4 MEDICAL CARMEN CHEST 2 IMAGING VIEWS ASS FRONTAL&[place] [address] [facility] [facility] TROPONIN 4 [facility] QUANTITAT INC INC SABIHA BLOOD 75652 [place] [facility] COUNT 4 [facility] COMPLETE INC INC AUTO&AUTO DIFRNTL WBC ECG 28389 [facility] [facility] ROUTINE 4 [facility] ECG INC INC W/LEAST 12 LDS TRCG ONLY W/O I&R ECG 76494 SCOTT CHAVEZ JR ROUTINE 4 DWI DWI ECG W/LEAST 12 LDS I&R ONLY RADIOLOGI 94547 [place] [facility] C 4 [facility] EXAMINATI INC INC ON CHEST SINGLE VIEW FRONTAL BASIC 93103 [place] [facility] METABOLIC 4 [facility] PANEL INC INC CALCIUM TOTAL CREATINE 13945 [place] [facility] KINASE MB 4 [facility] FRACTION INC INC ONLY COMPREHEN 29395 [place] [facility] SIVE 4 [facility] METABOLIC INC INC PANEL CREATINE 05353 [place] [facility] KINASE 4 [facility] TOTAL INC INC ECG 23723 [place] ROUTINE 4 [facility] ECG INC INC W/LEAST 12 LDS TRCG ONLY W/O I&R FIBRIN 14338 [place] [facility] DGRADJ 4 [facility] PRODUCTS INC INC D-DIMER QUAL/SEMI GILBERT ECG 36032 ANKUR ANKUR ROUTINE 4 BRYCE BRYCE ECG W/LEAST 12 LDS I&R ONLY BLOOD 83182 [place] [facility] COUNT 4 [facility] COMPLETE INC INC AUTO&[place] [address] [facility] [facility] TROPONIN 4 [facility] QUANTITAT INC INC SABIHA RADIOLOGI 02789 CHANEL Morillo BEMICHAEL D C EXAM 4 CHEST 2 VIEWS FRONTAL&L ATERAL HEMOGLOBI 04016 COMBINED COMBINED N 4 PHYSICIAN PHYSICIAN GLYCOSYLA S LA S LA LANEY A1C GENERAL 91376 COMBINED COMBINED HEALTH 4 PHYSICIAN PHYSICIAN PANEL S LA S LA CYANOCOBA 71200 COMBINED COMBINED LYUBOV 4 PHYSICIAN PHYSICIAN VITAMIN S LA S LA B-12 25 97911 COMBINED COMBINED HYDROXY 4 PHYSICIAN PHYSICIAN INCLUDES S LA S LA FRACTIONS IF PERFORMED LIPID 21758 COM[facility] COMBINED PANEL 4 [place] [address] COMBINED COMBINED FREE 4 PHYSICIAN PHYSICIAN THYROXINE S LA S LA SEDIMENTA 21189 COMBINED COMBINED TION RATE 4 PHYSICIAN PHYSICIAN RBC S LA S LA NON-AUTOM ATED COMPUTER- 97679 [place] [facility] AIDED 4 [facility] DETECTION INC INC SCREENING MAMMOGRAP HY SCREENING G0202 [place] [facility] 4 [facility] MAMMOGRAP INC INC HY WILBERT INCL CAD WHEN PERFORMD LIPID 34191 [facility] PANEL 4 DIAGNOSTI DIAGNOSTI CS CS IIV3 63468 DHS/CO [place] VACCINE 9 HEALTH CO [facility] VIRUS 0.5 BANK ACCT ML DOSAGE IM USE RADEX HIP 35148 [place] [facility] 9 [facility] UNILATERA INC INC L COMPLETE MINIMUM 2 VIEWS RADEX 04556 SEJAL SUMA, SPINE 9 MEDICAL MAX P LUMBOSACR IMAGING AL ASSOCIATE MINIMUM 4 S VIEWS RADEX 42318 KIMBERLEE SANCHEZEY, SPINE 9 [facility] LUMBSCRL CORPORATI COMPL ON W/BENDING VIEWS MIN 6 RADIOLOGI 65837 SEJAL SUMA C 9 MEDICAL MAX P EXAMINATI IMAGING ON PELVIS ASSOCIATE 1/2 S VIEWS Encounters Encounter Start End Date Code Location Performer Type Date OFFICE 26976 [facility] 7 7 RACHEL T VISIT INTERNAL 15 MED MINUTES EMERGENCY 53130 [facility] DEPT 7 7 PHYSICIAN VISIT S, [facility] HIGH SEVERITY& THREAT [facility] OFFICE 40708 [place] [facility] 7 7 [facility] T [facility]ISIT 5 INC MINUTES [facility] [place] [facility] [address] [facility] T EMERGENCY 74753 [facility] DEPT 7 7 PHYSICIAN VISIT S[facility] HIGH SEVERITY& THREAT FUNJ EMERGENCY 27407 [place] 7 7 [facility] DEPARTMEN INC T VISIT MODERATE SEVERITY [facility] [place] [facility]EN [facility] 7 7 HEALTH OUTPATIEN [facility] OFFICE 92847 [facility] 7 7 RACHEL T VISIT INTERNAL 15 MED MINUTES [facility] [place] 7 [facility]PAT[facility]EN [place] [facility] OFFICE 61188 [place] CELI [facility]PATIEN 7 7 [facility] T VISIT HOSPITAL 10 P MINUTES OFFICE 37784 [facility]PATI[facility] 7 7 HEALTH T VISIT MEDICAL 25 GROUP MINUTES OFFICE 25898 [place] [facility] 7 7 [facility] T VISIT INC 10 MINUTES [facility] [place] [facility] OUTPATIEN INC T OFFICE 11971 YVETTE AVINA OUTPATIEN 7 7 MD RHIANNON, T VISIT PSC 15 MINUTES [facility] [place] [facility] OUTPATIEN INC T OFFICE 81837 [place] [facility] 7 7 [facility] T VISIT 5 INC MINUTES OFFICE 81165 [place] WEISS JR OUTPATIEN 7 7 [facility] VISIT HOSPITAL 10 P MINUTES EMERGENCY 62186 [facility] PASCUAL DEPT 7 7 PHYSICIAN VISIT S, [facility] HIGH SEVERITY& THREAT FUNJ EMERGENCY 20884 [place] 7 7 [facility] DEPARTMEN INC T VISIT LOW/MODER SEVERITY [facility] [place] [facility] OUTPATIEN INC T [facility] [place] [facility] OUTPATIEN INC T OFFICE 74586 [place] CELI OUTPATIEN 7 7 [facility] VISIT [facility] 10 P MINUTES [facility] [place] [facility] OUTPATIEN INC T EMERGENCY 40736 [facility] SOTOMAYOR 7 7 PHYSICIAN JR DEPARTMEN S, [facility] T VISIT HIGH/URGE NT SEVERITY [facility] [place] [facility] OUTPATIEN INC T OFFICE 33579 [facility] GIOVANI [facility] 7 7 [facility] T VISIT INTERNAL 15 MED MINUTES PERIODIC 16315 [facility] KAM PREVENTIV 7 7 PHYSICIAN E MED EST S GROUP PATIENT [id number] [facility] [place] [facility] OUTPATIEN INC T OFFICE 56314 [facility] MAEGAN RECIOEN 7 7 PHYSICIAN T VISIT S GROUP 15 MINUTES EMERGENCY 58175 [facility] JAQUEZ 7 7 PHYSICIAN DEPARTMEN S, [facility] T VISIT HIGH/URGE NT SEVERITY OFFICE 43295 [place] ALATORRE OUTPATIEN 7 7 [facility] T VISIT HOSPITAL 10 P MINUTES [facility] [place] [facility] OUTPATIEN INC T [facility] [place] [facility] OUTPATIEN INC T OFFICE 65351 YVETTE JURADO OUTPATIEN 7 7 MD RHIANNON, T VISIT PSC 10 MINUTES [facility] [place] [facility] OUTPATIEN INC T OFFICE 28942 [facility] KIMBERLY OUTPATIEN 7 7 PHYSICIAN T VISIT S GROUP 25 MINUTES [facility] [place] [facility] OUTPATIEN INC T [facility] [place] [facility] OUTPATIEN INC T OFFICE 51804 [place] [facility] 7 7 [facility] T VISIT 5 INC MINUTES [facility] [place] [facility] OUTPATIEN INC T OFFICE 13732 YVETTE MAXIMOPERCY OUTPATIEN 7 7 MD RHIANNON, T NEW 30 PSC MINUTES OFFICE 66389 [facility] ISSA OUTPATIEN 7 7 PHYSICIAN T VISIT S GROUP 10 MINUTES [facility] [place] [facility] OUTPATIEN INC T EMERGENCY 79037 [place] 7 7 [facility] DEPARTMEN INC T VISIT HIGH/URGE NT SEVERITY OFFICE 17581 [facility] KIMBERLY OUTPATIEN 7 7 PHYSICIAN T VISIT S GROUP 25 MINUTES [facility] [place] [facility] OUTPATIEN INC T OFFICE 68440 [facility] 7 7 [facility] T VISIT INTERNAL 15 MED MINUTES OFFICE 43494 [facility] KIMBERLY OUTPATIEN 7 7 PHYSICIAN T VISIT S GROUP 25 MINUTES [facility] [place] [facility] OUTPATIEN INC T OFFICE 84400 ALPHARETTA ADAMS OUTPATIEN 7 7 [place] T VISIT ORTHOPAED 15 IC MINUTES EMERGENCY 28950 [place] 7 7 [facility] DEPARTMEN INC T VISIT HIGH/URGE NT SEVERITY [facility] [place] [facility] 7 [facility] OUTPATIEN INC T EMERGENCY 39926 [facility] ARMIJO DEPT 7 7 PHYSICIAN VISIT S, PLLC HIGH SEVERITY& THREAT FUNCJ OFFICE 22548 [facility] GIOVANI [facility]IEN 7 7 [facility] T VISIT INTERNAL 25 MED MINUTES OFFICE 38757 [place] CHAND 7 7 [facility] T VISIT 5 INC MINUTES [facility] [place] [facility] OUTPATIEN INC T OFFICE 25101 ANGELITO DUARTE OUTPATIEN 7 7 [place] T NEW 30 ORTHOPAED MINUTES IC [facility] [place] [facility] OUTPATIEN INC T EMERGENCY 40503 [facility] JIMENEZ DEPT 7 7 PHYSICIAN U VISIT S, PLLC HIGH SEVERITY& THREAT FUNCJ EMERGENCY 75828 [place] 7 7 [facility] DEPARTMEN INC T VISIT LOW/MODER SEVERITY [facility] [place] [facility] OUTPATIEN INC T [facility] [place] [facility] 7 [facility] OUTPATIEN INC T EMERGENCY 99037 [place] 7 7 [facility] DEPARTMEN INC T VISIT MODERATE SEVERITY EMERGENCY 93392 [place] 7 7 [facility] DEPARTMEN INC T VISIT LOW/MODER SEVERITY [facility] [place] [facility] 7 [facility] OUTPATIEN INC T EMERGENCY 29771 [facility] PASCUAL 7 7 PHYSICIAN DEPARTMEN S, PLLC T VISIT HIGH/URGE NT SEVERITY [facility] [place] [facility] OUTPATIEN INC T OFFICE 47166 [place] [facility] 7 7 [facility] T VISIT 5 INC MINUTES OFFICE 15008 [facility] 7 7 [facility] T VISIT INTERNAL 15 MED MINUTES EMERGENCY 15688 [facility] 7 7 [facility] EMERGENC[facility] T VISIT [facility] MODERATE [facility]VERITY [facility] [place] [facility] 7 7 [facility]ER[facility] 83994 [place] 7 7 [facility] T VISIT LOW/MODER SEVERITY OFFICE 18117 [place] [facility] 7 7 [facility] T VISIT 5 INC MINUTES [facility] [place] [facility] OUTPATIEN INC T OFFICE 10996 [facility] 7 7 [facility] T VISIT INTERNAL 15 MED MINUTES OFFICE 84407 [place] [facility] 7 7 [facility] T VISIT 5 INC MINUTES [facility] [place] [facility] OUTPATIEN INC T EMERGENCY 35459 [facility] MEDEROS 7 7 PHYSICIAN DEPARTMEN S, PLLC T VISIT MODERATE SEVERITY [facility] [place] [facility] OUTPATIEN INC T OFFICE 52854 [place] [facility] 7 7 [facility] T VISIT 5 INC MINUTES OFFICE 29567 [facility] 7 7 [facility] T VISIT INTERNAL 25 MED MINUTES OFFICE 33277 [place] [facility] 7 7 [facility] T NEW 10 INC MINUTES [facility] [place] [facility] OUTPATIEN INC T OFFICE 10830 [place] JASSO OUTPATIEN 7 7 T VISIT 25 MINUTES [facility] [place] [facility] 7 7 HEALTH OUTPATIEN [facility] EMERGENCY 88441 [place] 7 7 [facility] T V[facility]IT LIMITED/M INOR PROB [facility] [place] [facility] 7 7 [facility] [place] [facility] 7 7 [facility]GENC[facility] 78696 [place] 7 7 [facility] T VISIT LOW/MODER SEVERITY EMERGENCY 22948 [place] 7 7 [facility] T VISIT LIMITED/M INOR PROB EMERGENCY 26676 [facility] PASCUAL 7 7 PHYSICIAN DEPARTMEN S, [facility] T VISIT MODERATE SEVERITY [facility] [place] [facility] 7 7 [facility] [place] [facility] 7 7 [facility]ALTH OUTPATIEN [facility] [place] [place] [facility] 6 6 [facility] 25309 [place] 6 6 [facility] T VISIT HIGH/URGE NT SEVERITY OFFICE 52296 [facility] 6 6 [facility] VISIT INTERNAL 15 MED MINUTES [facility] [place] [facility] 6 6 [facility] 26889 [facility] JAQUEZ 6 6 PHYSICIAN DEPARTMEN S, [facility] T VISIT HIGH/URGE NT SEVERITY EMERGENCY 15508 [place] 6 6 [facility] T VISIT MODERATE SEVERITY EMERGENCY 33014 SMILEY ARMIJO 6 6 PHYSICIAN DEPARTMEN S, [facility] T VISIT MODERATE SEVERITY EMERGENCY 09054 [place] 6 6 [facility] T VISIT LOW/MODER SEVERITY [facility] [place] [facility] 6 6 [facility] T EMERGENCY 03206 SMILEY PASCUAL 6 6 [facility]YSICIAN [facility] MODERATE SEVERITY OFFICE 33241 IF[facility] SUGGS OUTPATIEN 6 6 ANG ANG T VISIT 10 MINUTES OFFICE 82835 [place] [facility] 6 6 [facility] T VISIT INTERNAL 15 MED MINUTES OFFICE 83321 WENDY SANCHEZ MICHELLE OUTPATIEN 6 6 T VISIT BARIATRIC 25 SURGICAL MINUTES [facility] [place] [facility] T EMERGENCY 11159 [place] 6 6 [facility] DEPART[facility] T VISIT LOW/MODER SEVERITY EMERGENCY 03629 SMILEY SOTOMAYOR, 6 6 PHYSICIAN JR MAN[facility]ELITO [facility] VIS[facility] HIGH/URGE NT SEVERITY EMERGENCY 61957 SMILEY PASCUAL 6 [address] [facility] T VISIT MODERATE SEVERITY OFFICE 84568 [facility] FALLUJI OUTPATIEN 6 6 [facility] T VISIT MEDICAL 15 G MINUTES [facility] [place] [facility] T OFFICE 72692 [facility] HUMPHREY OUTPATIEN 6 6 PHYSICIAN MEAGAN T VISIT S GROUP 15 MINUTES [facility] [place] [facility] 6 [facility] T OFFICE 40015 [facility] ISSA OUTPATIEN 6 6 PHYSICIAN JARON T VISIT S GROUP 10 MINUTES [facility] [place] [facility] 6 [facility] T [facility] [place] [facility] T EMERGENCY 56870 [place] 6 6 [facility] DEPARTMEN INC T VISIT MODERATE SEVERITY OFFICE 22647 [facility] ISSA OUTPATIEN 6 6 PHYSICIAN JARON T VISIT S GROUP 10 MINUTES OFFICE 37104 [place] [facility] OUTPATIEN 6 6 [facility] T VISIT HOSPITAL 10 P MINUTES OFFICE 43359 [facility]ENNA OUTPATIEN 6 6 HEALTH IV HEN T VISIT MEDICAL 15 GROUP MINUTES OFFICE 29079 PERLA RODRIGUEZ [facility] OUTPATIEN 6 6 GROUND T VISIT FAMILY 25 CLINI MINUTES OFFICE 00789 [facility] T VISIT 5 HLTH DEPT HLTH DEPT MINUTES [facility] [place] [facility] 6 6 [facility] OUT[facility] T EMERGENCY 51005 [place] 6 6 [facility] DEPART[facility] INC T VISIT LOW/MODER SEVERITY EMERGENCY 35540 SMILEY ARMIJO 6 6 PHYSICIAN CASANDRA GARCIA S [facility] T VISIT HIGH/URGE NT SEVERITY OFFICE 33339 [facility] T VISIT TH DEPT [facility] DEPT 15 [facility] [place] [facility] 6 6 [facility] OUT[facility] INC T OFFICE 56868 [facility] KIMBERLY OUTPATIEN 6 6 PHYSICIAN MAT T VISIT S GROUP 25 MINUTES OFFICE 01817 [facility] OUTPATIEN 6 6 T VISIT BARIATRIC 25 SURGICAL MINUTES EMERGENCY 47316 SMILEY PASCUAL 6 6 PHYSICIAN BRYCE GARCIA S PLLC T VISIT MODERATE SEVERITY OFFICE 04597 [facility] KIMBERLY OUTPATIEN 6 6 PHYSICIAN MAT T NEW 45 S GROUP MINUTES OFFICE 52361 [facility] OUTPATIEN 6 6 PARTNERS T VISIT OF [place] 40 CO MINUTES EMERGENCY 84719 SMILEY JIMENEZ 6 6 PHYSICIAN Taylor GARCIA S PLLC T VISIT HIGH/URGE NT SEVERITY [facility] [place] [facility] 6 [facility] OUT[facility] T EMERGENCY 29532 SMILEY PASCUAL 6 6 PHYSICIAN BRYCE DEPARTMEN S, [facility] T VISIT MODERATE SEVERITY EMERGENCY 74474 [place] 6 6 [facility] DE[facility] T VISIT LOW/MODER SEVERITY [facility] [place] [facility] 6 6 [facility] T OFFICE 18592 [facility] 6 6 N T VISIT NEUROLOGY 10 MINUTES [facility] [place] [facility] 6 6 [facility] OUTPATIEN INC T EMERGENCY 32881 SMILEY SOTOMAYOR, 6 6 PHYSICIAN JR MANUELITO GARCIA S, [facility] T VISIT MODERATE SEVERITY [facility] [place] [facility] 6 6 [facility] OUTPATIEN INC T EMERGENCY 55745 SMILEY PASCUAL DEPT 6 6 PHYSICIAN BRYCE VISIT S, [facility] HIGH SEVERITY& THREAT FUNCJ OFFICE 12846 [place] [facility] OUTPATIEN 6 6 [facility] VISIT HOSPITAL 10 P MINUTES EMERGENCY 75529 [place] 6 6 [facility] T VISIT MODERATE [facility]VERITY [facility] [place] [facility] [address] [facility] [address] T EMERGENCY 96941 SMILEY SOTOMAYOR, 6 6 PHYSICIAN JR MANUELITO GARCIA S, [facility] T VISIT HIGH/URGE NT SEVERITY OFFICE 45509 [place] [facility]IEN 6 6 [facility] T VISIT HOSPITAL 10 P MINUTES EMERGENCY 11981 SMILEY PASCUAL DEPT 6 6 PHYSICIAN BRYCE VISIT S, [facility] HIGH SEVERITY& THREAT FUNCJ OFFICE 05259 ALLERGY ROSENTHAL MAR CONSULTAT 6 6 [facility] [place] NEW/ESTAB CO PATIENT 60 MIN EMERGENCY 12125 SMILEY PASCUAL 6 6 PHYSICIAN BRYCE DEPARTMEN S, [facility] T VISIT MODERATE SEVERITY EMERGENCY 27056 SMILEY PASCUAL DEPT 6 6 PHYSICIAN BRYCE VISIT S, PLLC HIGH SEVERITY& THREAT FUNCJ [facility] [place] [facility] 6 [facility] T EMERGENCY 62891 SMILEY SUGGS [facility] 6 6 PHYSICIAN DEPARTMEN S, PLLC T VISIT LOW/MODER SEVERITY OFFICE 54973 [facility] OUTPATIEN 6 6 PHYSICIAN T VISIT S GROUP 25 MINUTES [facility] [place] - 6 6 [facility] 05474 [facility] PHYSICIAN BRYCE DEPARTMEN S, PLLC T VISIT MODERATE SEVERITY EMERGENCY 56695 [place] 6 6 [facility] DEPARTMEN INC T VISIT LOW/MODER SEVERITY [facility] 6 6 N OUTPATIEN COMMUNTIY T HOSPITA OFFICE 27220 [facility] 6 6 PHYSICIAN JARON T NEW 20 S GROUP MINUTES EMERGENCY 80731 SMILEY ARMIJO DEPT 6 6 PHYSICIAN CASANDRA VISIT S, PLLC HIGH SEVERITY& THREAT FUNCJ EMERGENCY 42879 SMILEY SANCHEZEY 6 6 PHYSICIAN BRYCE DEPARTMEN S, PLLC T VISIT HIGH/URGE NT SEVERITY [facility]OSPITAL [facility] 6 6 N OUTPATIEN COMMUNTIY T HOSPITA OFFICE 28484 [facility] 6 T VISIT BARIATRIC 25 SURGICAL MINUTES EMERGENCY 74387 SMILEY PASCUAL DEPT 6 6 PHYSICIAN BRYCE VISIT S, PLLC HIGH SEVERITY& THREAT FUNCJ EMERGENCY 88176 ANGELITO DUMONT 6 6 EMERGENCY HOW DEPARTMEN PHYS PSC T VISIT MODERATE SEVERITY [facility] [place] - 6 6 HEALTH OUTPATIEN [place] T EMERGENCY 35497 [place] 6 6 [facility] DEPARTMEN INC T VISIT LOW/MODER SEVERITY [facility] [place] - 6 6 [facility] OUT[facility]IEN [facility] T EMERGENCY 67426 SMILEY BAGLEY DEPT 6 6 PHYSICIAN FOR VISIT S, PLLC HIGH SEVERITY& THREAT [facility] [place] - 6 6 [facility] OUT[facility]EN INC T EMERGENCY 44111 SMI[facility] PASCUAL 6 6 PHYSICIAN BRYCE DEPARTMEN S, PLLC T VISIT HIGH/URGE NT SEVERITY EMERGENCY 34492 SMILEY SUGGS [facility] 6 6 PHYSICIAN DEPARTMEN S, PLLC T VISIT HIGH/URGE NT SEVERITY EMERGENCY 59164 [facility] 6 6 N DEPARTMEN COMMUNTIY T VISIT [facility] HIGH/URGE NT SEVERITY [facility] 6 6 N [facility] [place] - 6 6 [facility] OUT[facility] T EMERGENCY 53848 SMILEY PASCUAL DEPT 6 6 PHYSICIAN BRYCE VISIT S, PLLC HIGH SEVERITY& THREAT [facility] OFFICE 84178 [facility] 6 6 N ION NEUROLOGY NEW/ESTAB PATIENT 60 MIN OFFICE 72492 [facility] OUTPATIEN 6 6 MATTI MATTI T NEW 30 MINUTES OFFICE 48188 SCALF LEI SCALF LEI OUTPATIEN 6 6 T VISIT 25 MINUTES EMERGENCY 46439 SMILEY PASCUAL DEPT 6 6 PHYSICIAN BRYCE VISIT S, PLLC HIGH SEVERITY& THREAT [facility] 68817 [place] ARSL[facility] OUTPATIEN 6 6 [facility] T VISIT INTERNAL 15 MED MINUTES [facility] [place] - 6 6 HEALTH OUTPATIEN [facility] [place] - 6 6 [facility] OUT[facility] INC T EMERGENCY 22567 SMILEY PASCUAL DEPT 6 6 PHYSICIAN BRYCE VISIT S, PLLC HIGH SEVERITY& THREAT FUNCJ OFFICE 39327 [facility] B[facility]K OUTPATIEN 6 6 HEALTH KADIE T VISIT MEDICAL 15 GROUP MINUTES OFFICE 46917 WENDY SANCHEZ MICHELLE OUTPATIEN 6 6 T VISIT BARIATRIC 25 SURGICAL MINUTES [facility] [place] [facility] 6 6 [facility] T OFFICE 06838 [place] ARSLAN OUTPATIEN 6 6 [facility] OFELIA T VISIT INTERNAL 15 MED MINUTES INITIAL 30359 [facility] PREVENTIV 6 6 PHYSICIAN E S GROUP MEDICINE NEW PATIENT 40-64YRS OFFICE 97726 [facility] OUTPATIEN 6 6 PRIMARY KADIE T VISIT CARE OF 15 [facility] [place] [facility] 6 [facility] T OFFICE 27105 [place] ARSLAN OUTPATIEN 6 6 [facility] OFELIA T VISIT INTERNAL 15 MED MINUTES [facility] [place] - 6 6 [facility] T OFFICE 42883 WENDY SANCHEZ MICHELLE OUTPATIEN 5 5 T VISIT BARIATRIC 25 SURGICAL MINUTES OFFICE 39308 ATKINS ATKINS OUTPATIEN 5 5 TRA TRA T VISIT 25 MINUTES PERIODIC 41009 [facility] DEPT HLTH DEPT PATIENT JAZZ JAZZ 40-64YRS OFFICE 93017 WENDY SANCHEZ MICHELLE OUTPATIEN 5 5 T VISIT BARIATRIC 15 SURGICAL MINUTES [facility] [place] - 5 5 [facility] [place] - 5 5 [facility] T OFFICE 80824 [place] ARSLAN OUTPATIEN 5 5 VALLEY OFELAI T NEW 30 INTERNAL MINUTES MED OFFICE 48903 [facility] PETTEY OUTPATIEN 5 5 PHYSICIAN JAM T VISIT S GROUP 15 MINUTES OFFICE 99926 GASTROENT CASE JUS OUTPATIEN 5 5 EROLOGY T VISIT AND 15 HEPATOL MINUTES OFFICE 44723 [facility] OUTPATIEN 5 5 HEALTH KADIE T VISIT MEDICAL 10 GROUP MINUTES [facility] - 5 5 N [facility]PAT[facility]EN [facility] 09614 [place] 5 5 [facility] DEPARTMEN INC T VISIT HIGH/URGE NT SEVERITY [facility] [place] - 5 5 [facility] T H[facility] - 5 5 N OUTPATIEN COMMUNTIY T HOSPITA OFFICE 61450 GASTROENT CASE JUS OUTPATIEN 5 5 EROLOGY T NEW 45 AND MINUTES HEPAT [facility] [place] - 5 5 [facility] [place] [facility] 5 5 [facility] T EMERGENCY 08782 [place] 5 5 [facility] DEPARTMEN INC T VISIT LOW/MODER SEVERITY OFFICE 97100 DANIEL SANCHEZ OUTPATIEN 5 5 HUBER HUBER T VISIT 15 MINUTES [facility] [place] - 5 5 [facility] T EMERGENCY 10425 [place] 5 5 [facility] DEPARTMEN INC T VISIT MODERATE SEVERITY [facility] - 5 5 N OUTPATIEN COMMUNTIY T [facility] [place] - 5 5 N OUTPATIEN COMMUNTIY T [facility] - 5 5 N INPATIENT COMMUNTIY [facility] [place] - 5 5 [facility] INC T OFFICE 11182 [place] DANIEL MARTINEZ OUTPATIEN 5 5 T VISIT BARIATRIC 40 SURGICAL MINUTES OFFICE 25564 DANIEL ROBERTSBING OUTPATIEN 5 5 HUBER HUBER T VISIT 15 MINUTES [facility] [place] - 5 5 [facility] T EMERGENCY 49955 [place] 5 5 [facility] DEPARTMEN INC T VISIT LOW/MODER SEVERITY [facility] [place] [facility] 5 5 [facility] INC T [facility] - 5 5 N OUTPATIEN COMMUNTIY [facility] [place] [facility] 5 [facility] [place] [facility] 5 5 [facility] INC T OFFICE 00029 [place] ROQUEIMONE OUTPATIEN [address] MINUTES P OFFICE 63180 MELANIE NOGUEIRA OUTPATIEN 5 5 MEDICAL JACOBY T VISIT SERV 15 FOUNDATIO MINUTES N OFFICE 67576 [place] WEISS JR OUTPATIEN [address] MINUTES P OFFICE 13577 [facility] CHRISTOPHERTEMago OUTPATIEN 5 5 PHYSICIAN JAM T NEW S GROUP MINUTES OFFICE 60575 [facility] CONSULTAT [address] [facility] MEDICAL NEW/ESTAB G PATIENT 60 MIN OFFICE 65634 DANIEL SANCHEZ OUTPATIEN 5 5 HUBER HUBER T VISIT 15 MINUTES EMERGENCY 89808 [place] ESCOTO 5 5 [facility] T VISIT P MODERATE SEVERITY EMERGENCY 90499 [place] 5 5 [facility] DEPARTMEN INC T VISIT HIGH/URGE NT SEVERITY [facility] [place] - 5 5 [facility] OUT[facility] INC T EMERGENCY 38561 [place] 5 5 [facility] DEPARTMEN INC T VISIT HIGH/URGE NT SEVERITY [facility] [place] - 5 5 [facility] OUTPATIEN INC T OFFICE 81955 DANIEL DANIEL CHAND 5 5 HUBER HUBER T VISIT 15 MINUTES OFFICE 53824 ARMANDOBING DANIEL CHAND 4 4 HUBER HUBER T VISIT 15 MINUTES EMERGENCY 49005 [place] 4 4 [facility] INC T VISIT LOW/MODER SEVERITY [facility] [place] - 4 4 [facility] OUTPATIEN [facility] T OFFICE 42370 DANIEL CHAND 4 4 HUBER HUBER T VISIT [address] [facility] DE[facility] 4 4 [place] VISIT EMERGENCY HIGH PHYS SEVERITY& THREAT [facility] [place] - 4 4 [facility]IEN [facility] [place] [address] [facility] 25208 DANIEL CHAND 4 4 HUBER HUBER T VISIT 15 MINUTES OFFICE 92341 MONALISA CHAPIN CONSULTAT 4 4 KADIE ION CARDIOLOG NEW/ESTAB Y AT CENT PATIENT 40 MIN [facility] [place] - 4 4 [facility] OUTPATIEN [facility] T OFFICE 86019 MELANIE NOGUEIRA CONSULTAT 4 4 MEDICAL JAM ION SERV NEW/ESTAB FOUNDATIO PATIENT N 60 MIN [facility] [place] - 4 4 [facility] OUTPATIEN INC T OFFICE 00416 DANIEL CHAND 4 4 HUBER HUBER T VISIT 15 MINUTES OFFICE 71919 [facility] 4 4 [facility] T VISIT MEDICAL 15 G MINUTES OFFICE 57369 ATKINS ATKINS CONSULTAT 4 4 TRA TRA ION NEW/ESTAB PATIENT 40 MIN [facility] [place] - 4 4 [facility] INC T OFFICE 26296 [facility] T NEW 30 MEDICAL MINUTES G EMERGENCY 03807 [facility] 4 [facility] VISIT EMERGENCY HIGH PHYSI SEVERITY& THREAT FUNCJ EMERGENCY 24024 HORTENCIA HUGHES DEPT 4 4 VISIT HIGH SEVERITY& THREAT FUNCJ EMERGENCY 69400 [place] 4 4 [facility] DEPARTMEN INC T VISIT MODERATE SEVERITY [facility] [place] - 4 4 [facility] [place] - 4 4 [facility] OUT[facility] INC T OFFICE 17348 ARMANDOBING ROBERTSBING OUTPATIEN 4 4 HUBER HUBER T VISIT 15 MINUTES EMERGENCY 54729 ANKUR PASCUAL DEPT 4 4 BRYCE BRYCE VISIT HIGH SEVERITY& THREAT FUNJ EMERGENCY 69941 [place] 4 4 [facility] DEPARTMEN INC T VISIT HIGH/URGE NT SEVERITY OFFICE 78054 SANCHEZ MICHELLE SANCHEZ MICHELLE CONSULTAT 4 4 ION NEW/ESTAB PATIENT 80 MIN OFFICE 84726 DANIEL SANCHEZ OUTPATIEN 4 4 HUBER HUBER T NEW 30 MINUTES [facility] [place] - 4 4 [facility] INC T OFFICE 41787 MAEGAN ISSA OUTPATIEN 4 4 JARON JARON T VISIT 5 MINUTES OFFICE 79584 ISSAKIMBERLY ISSA OUTPATIEN 4 4 JARON JARON T NEW 30 MINUTES Emergency PATRIC Burnett MD (ER) 4 16:35 4 17:31 [facility] Emergency PATRIC BURNETT (ER) 3 16:45 3 18:19 [facility] [place] - 9 9 [facility] OUTPATIEN INC T EMERGENCY 79769 KIMBERLEE PASCUAL, 9 9 [facility] VIS[facility] ON HIGH/URGE NT SEVERITY EMERGENCY 70619 [place] 9 9 [facility] INC T VISIT LOW/MODER SEVERITY
[2017-06-30 23:34] VITALS: BP 129/74
--- OUTSIDE RECORDS SUMMARY | 2017-07-02 14:30 | External Medical Summary Rpt ---
Author Author , YENNY RAMON Address Unknown Phone [email or web address] Immunization Name Date Rout CVX Reac Dose Comm Prov Is Faci e tion ent ider Refu lity Give sed n Tdap 10-0 115 0.50 Hist [facility] No H149 , 7-20 mL oric Adso 16 al APRI rbed Info L rmat ion - Sour ce Unsp ecif ied Td, 12-2 139 999 Hist SD No SD UF 1-20 oric 06 al Info rmat ion - Sour ce Unsp ecif ied Td, 02-2 139 999 Hist SD No SD UF 6-19 oric 97 al Info rmat ion - Sour ce Unsp ecif ied MMR 07-2 3 999 Hist SD No SD 4-19 oric 93 al Info rmat ion - Sour ce Unsp ecif ied Td, 05-0 139 999 Hist SD No SD UF 1-19 oric 87 al Info rmat ion - Sour ce Unsp ecif ied MMR 05-2 3 999 Hist SD No SD 5-19 oric 77 al Info rmat ion - Sour ce Unsp ecif ied Ward 03-0 89 999 Hist SD No SD o, 2-19 oric UF 77 al Info rmat ion - Sour ce Unsp ecif ied DTP 03-0 1 999 Hist SD No SD 2-19 oric 77 al Info rmat ion - Sour ce Unsp ecif ied DTP 05-0 1 999 Hist SD No SD 9-19 oric 73 al Info rmat ion - Sour ce Unsp ecif ied Ward 05-0 89 999 Hist SD No SD o, 9-19 oric UF 73 al Info rmat ion - Sour ce Unsp ecif ied MMR 11-0 3 999 Hist SD No SD 8-19 oric 72 al Info rmat ion - Sour ce Unsp ecif ied Ward 05-1 89 999 Hist SD No SD o, 7-19 oric UF 72 al Info rmat ion - Sour ce Unsp ecif ied Ward 04-0 89 999 Hist SD No SD o, 5-19 oric UF 72 al Info rmat ion - Sour ce Unsp ecif ied DTP 03-2 1 999 Hist SD No SD 2-19 oric 72 al Info rmat ion - Sour ce Unsp ecif ied DTP 02-0 1 999 Hist SD No SD 2-19 oric 72 al Info rmat ion - Sour ce Unsp ecif ied Ward 02-0 89 999 Hist SD No SD o, 2-19 oric UF 72 al Info rmat ion - Sour ce Unsp ecif ied DTP 01-0 Intr 1 999 Hist SD No SD 1-19 amus oric 72 cula al r Info rmat ion - Sour ce Unsp ecif ied
--- OUTSIDE RECORDS SUMMARY | 2017-07-02 14:30 | External Medical Summary Rpt ---
Author Author , YENNY RAMON Address Unknown Phone [email or web address] Immunization Name Date Rout CVX Reac Dose Comm Prov Is Faci e tion ent ider Refu lity Give sed n Tdap 10-0 115 0.50 Hist [place] No H149 , 7-20 mL oric Adso 16 al APRI rbed Info L rmat ion - Sour ce Unsp ecif ied Td, 12-2 139 999 Hist DC No DC UF 1-20 oric 06 al Info rmat ion - Sour ce Unsp ecif ied Td, 02-2 139 999 Hist DC No DC UF 6-19 oric 97 al Info rmat ion - Sour ce Unsp ecif ied MMR 07-2 3 999 Hist DC No DC 4-19 oric 93 al Info rmat ion - Sour ce Unsp ecif ied Td, 05-0 139 999 Hist DC No DC UF 1-19 oric 87 al Info rmat ion - Sour ce Unsp ecif ied MMR 05-2 3 999 Hist DC No DC 5-19 oric 77 al Info rmat ion - Sour ce Unsp ecif ied Ward 03-0 89 999 Hist DC No DC o, 2-19 oric UF 77 al Info rmat ion - Sour ce Unsp ecif ied DTP 03-0 1 999 Hist DC No DC 2-19 oric 77 al Info rmat ion - Sour ce Unsp ecif ied DTP 05-0 1 999 Hist DC No DC 9-19 oric 73 al Info rmat ion - Sour ce Unsp ecif ied Ward 05-0 89 999 Hist DC No DC o, 9-19 oric UF 73 al Info rmat ion - Sour ce Unsp ecif ied MMR 11-0 3 999 Hist DC No DC 8-19 oric 72 al Info rmat ion - Sour ce Unsp ecif ied Ward 05-1 89 999 Hist DC No DC o, 7-19 oric UF 72 al Info rmat ion - Sour ce Unsp ecif ied Ward 04-0 89 999 Hist DC No DC o, 5-19 oric UF 72 al Info rmat ion - Sour ce Unsp ecif ied DTP 03-2 1 999 Hist DC No DC 2-19 oric 72 al Info rmat ion - Sour ce Unsp ecif ied DTP 02-0 1 999 Hist DC No DC 2-19 oric 72 al Info rmat ion - Sour ce Unsp ecif ied Ward 02-0 89 999 Hist DC No DC o, 2-19 oric UF 72 al Info rmat ion - Sour ce Unsp ecif ied DTP 01-0 Intr 1 999 Hist DC No DC 1-19 amus oric 72 cula al r Info rmat ion - Sour ce Unsp ecif ied
[2017-07-09] MEDS ORDERED: PROMETHAZINE HC25 M1 PO (16:16)
== END 2017-06-30 23:35 | disposition home or self-care (01) ==
LOC: ER 22:57
DX: J45.909 Unspecified asthma, uncomplicated (principal); K21.9 Gastro-esophageal reflux disease without esophagitis; F41.9 Anxiety disorder, unspecified

== ENCOUNTER 2017-07-08 20:06 | Emergency (ER) | payer MEDICAID ==
[~2017-07-08] VITALS: Ht 170.2 cm; Wt 117.9 kg
--- OUTSIDE RECORDS SUMMARY | 2017-07-08 21:18 | External Medical Summary Rpt ---
Author Author , YENNY RAMON Address Unknown Phone [email or web address] Care Team Providers Care Electrician Office Name Role Phone ALFARIS MOH, ALFARIS Unavailable Unavailable [facility] [place], [facility] [place] YVETTE JURADO MD, PSC, Unavailable Unavailable YVETTE JURADO MD, PSC ARNOLD HUBER, ARNOLD Unavailable Unavailable HUBER ARNOLD HUBER, ARNOLD Unavailable Unavailable HUBER ATKINS TRA, ATKINS Unavailable Unavailable TRA ATKINS TRA, ATKINS Unavailable Unavailable TRA [facility] Unavailable Unavailable [facility] Unavailable Unavailable MEDICAL GROUP, [facility] Un[facility] Unavailable [facility], [facility] Unavailable Unavailable OF [facility], [facility] BEFARIDAKE, BEINEKE Unavailable Unavailable BEINEKE CARMEN, BEINEKE Unavailable Unavailable CARMEN DUMONT HOW, DUMONT Unavailable Unavailable HOW BESSON, BESSON Unavailable Unavailable BESSON DOMINIQUE, BESSON Unavailable Unavailable DOMINIQUE [facility] Unavailable Unavailable [facility], [facility] BOLIEK KADIE, BOLIEK Unavailable Unavailable KADIE CERRATO, CERRATO Unavailable Unavailable CERRATO ALL, CERRATO ALL Unavailable Unavailable [facility] Unavailable Unavailable [facility] Unavailable Unavailable SERVICE, [facility] Unavailable [facility]available SERVICE, [facility] SVITLANA KILO, SVITLANA Unavailable Unavailable [...] AND Unavailable Unavailable [facility] Unavailable Unavailable HOSPITA, [facility] Unavailable Unavailable HOSPITA, [facility] RODRIGUEZ TRI, RODRIGUEZ TRI Unavailable Unavailable ANDREWS RHO, ANDREWS Unavailable Unavailable [facility] Unavailable Unavailable CENTER, [facility] Unavailable Unavailable INC, [facility] Unavailable Unavailable HOSPITAL P, P BOYER CHRISTEL, BOYER CHRISTEL Unavailable Unavailable BOYER CHRISTEL, BOYER CHRISTEL Unavailable Unavailable [facility], Unavailable Unavailable [facility] JAQUEZ, JAQUEZ Unavailable Unavailable VAUGNH TERA, VAUGHN Unavailable Unavailable BRYAN LONDONO Unavailable Unavailable ILUYOMADE ROT, Unavailable Unavailable ILUYOMADE ROT FELICIA DUARTE Unavailable Unavailable [facility] Unavailable Unavailable GROUP PS, [facility] Unavailable Unavailable [facility], [facility] Unavailable Unavailable MEDICAL G, [facility] MEDICAL G ELYSSA BURNETT, Unavailable [...] JR DWI [facility] Unavailable Unavailable SPECIALISTS,, [facility], [facility] Unavailable Unavailable INTERNAL MED, [facility] BRITTNY, BRITTNY Unavailable Unavailable [...] JOSE ANGEL, BENSON Unavailable Unavailable JOSE ANGEL RODRIGUEZ, RODRIGUEZ Unavailable Unavailable RODRIGUEZ SHABANA, RODRIGUEZ SHABANA Unavailable Unavailable RODRIGUEZ LEENA, RODRIGUEZ LEENA Unavailable Unavailable SOTINGEANU, Unavailable Unavailable SOTINGEANU SOTINGEANU CARMEN, Unavailable Unavailable SOTINGEANU [facility] Unavailable Unavailable [facility], [facility] STROUB, STROUB Unavailable Unavailable [facility] Unavailable Unavailable [facility], [facility] WALKER FOR, WALKER Unavailable Unavailable FOR [facility] Unavailable Unavailable DEPT [facility], [facility] DEPT [facility] Unavailable Unavailable DEPT JAZZ, [facility] SANCHEZ, SANCHEZ Unavailable Unavailable SANCHEZ MICHELLE, SANCHEZ MICHELLE Unavailable Unavailable WELLS ELLEN, WELLS ELLEN Unavailable Unavailable WELLS SHA, WELLS SHA Unavailable Unavailable ROSENTHAL MAR, ROSENTHAL MAR Unavailable Unavailable SARAH KADIE, SARAH KADIE Unavailable Unavailable Purpose Continuity of Care Document - 01-04-2009 through 2016 Problems Code Diagnosis DOS Provider Status R079 CHEST PAIN 06-04-2017 [facility] UNSPECIFIED [facility] INTERNAL MED [id number] UNS ADVERS 06-01-2017 [facility] EFFECT PHYSICIANS, DRUG/MEDICA PLLC MENT INITIAL ENCNTR K219 GASTRO-ESOP 05-19-2017 [facility] SURG DISEASE CTR WITHOUT ESOPHAGITIS R1310 DYSPHAGIA 05-19-2017 [facility] UNSPECIFIED PHYS SURG CTR Z9884 BARIATRIC 05-19-2017 [facility] SURGERY PHYS SURG STATUS CTR J069 ACUTE UPPER 05-05-2017 [facility] RESPIRATORY INC INFECTION UNSPECIFIED R072 PRECORDIAL 05-05-2017 [facility] PA[facility] , E785 HYPERLIPIDE 05-04-2017 [facility] R0789 OTHER CHEST 05-04-2017 [facility] Z[facility] FAMILY 05-04-2017 [place] HISTORY OF [facility] MALIGNANT INC NEOPLASM UNSPECIFIED Z8249 FAMILY HX 05-04-2017 [place] ISCHEMIC [facility] HRT DZ [facility] P DZ CIRC SYSTEM Z833 FAMILY 05-04-2017 [place] HISTORY OF [facility] P MELLITUS P92662 ENCOUNTER 04-30-2017 [facility] AL CARIOVASCUL AR EXAM U34655 ENCOUNTER 04-30-2017 [facility] AL LABORATORY EXAM B977 PAPILLOMAVI 04-29-2017 [facility] OF DZ CLASSIFIED ELSEWHERE E7800 PURE 04-29-2017 [facility] HYPERCHOLES VALLEY TEROLEMIA INTERNAL UNSPECIFIED MED J309 ALLERGIC 04-29-2017 [facility] RHINITIS VALLEY UNSPECIFIED INTERNAL MED M797 FIBROMYALGI 04-29-2017 [facility] A [facility] INTERNAL MED N870 MILD 04-29-2017 [facility], CERVICAL LLC DYSPLASIA [id number] ATYP SQ 04-29-2017 [facility] CELLS UNDET PHYSICIANS GROUP SIGNIFICANC E CYTOL SMER CERV S41320 CERV HIGH 04-29-2017 [facility] RSK HUMAN PHYSICIANS PAPILLOMAVI GROUP RAJ DNA TEST POS 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 04-10-2017 [facility] ESOPHAGUS [place] G27582 DECREASED 04-09-2017 [place] WHITE BLOOD [facility] CELL COUNT [facility] P UNSPECIFIED K449 DIAPHRAGMAT 04-08-2017 [facility] W/O MEDICAL OBSTRUCTION GROUP OR GANGRENE R110 NAUSEA 04-08-2017 [facility] MEDICAL [facility] R1319 OTHER 04-08-2017 [facility] DYSPHAGIA [facility] [id number] SPONDYLOSIS 04-07-2017 YVETTE JURADO, W/O , PSC MYELOPATH/R ADICULOPATH Y LUMB RGN M479 SPONDYLOSIS 04-07-2017 [facility] UNSPECIFIED INC 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-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, PSC RAL DISC DEGEN LUMBAR REGION R202 PARESTHESIA 04-07-2017 [facility] OF SKIN [place] INTERNAL MED J320 CHRONIC 04-02-2017 [place] [facility] SINUSITIS INC R350 FREQUENCY 03-27-2017 [facility] MICTURITION [facility] P R3915 URGENCY OF 03-27-2017 [place] URINATION [facility] P R200 ANESTHESIA 03-25-2017 [facility] SKIN MEDICAL IMAGING ASS R42 DIZZINESS 03-25-2017 [facility] MEDICAL GIDDINESS IMAGING ASS R51 HEADACHE 03-25-2017 [facility]OS[facility] INC D709 NEUTROPENIA 03-24-2017 [facility] P [id number] ADVERSE EFF 03-22-2017 [facility] PHYSICIANS, GLUCOCORTIC PLLC DS SYNTH ANALOG INIT ENC [id number] ADVERS EFF 03-22-2017 [place] OT RX MEDS [facility] BIO INC SUBSTANCES INIT ENC H98529 OTHER 03-21-2017 [place] SPONDYLOSIS [facility] LUMBAR INC REGION M5116 INTERVERTEB 03-21-2017 [place] RAL DISC MEM [facility] D/O INC W/RADICULOP ATHY LUMB RGN C84272 ENCOUNTER 03-19-2017 [facility], CIGARETTE FILTER INSPECTOR EXAM LLC GENERAL RTN W/ABNORMAL FIND Y95819 ENCOUNTER 03-19-2017 [facility] CIGARETTE FILTER INSPECTOR EXAM PHYSICIANS GENERAL RTN GROUP W/O ABNORMAL FIND H6982 OTHER SPEC 03-13-2017 [facility] DISORDERS PHYSICIANS EUSTACHIAN GROUP TUBE LT EAR 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 PHYSICIANS UNRESTIRCT GROUP CONTRALAT SIDE R300 DYSURIA 03-12-2017 [facility] SHERIFF, PLLC M4726 OT 03-03-2017 [facility] SPONDYLOSIS [facility] INC W/RADICULOP ATHY LUMBAR REGION N390 URINARY 03-03-2017 [place] TRACT [facility] INFECTION INC SITE NOT SPECIFIED R911 SOLITARY 02-27-2017 [place] PULMONARY MEDICAL NODULE IMAGING ASS Z09 ENC F/U 02-27-2017 [place] EXAM AFTR MEDICAL CMPL TX OTH IMAGING ASS THAN MALIG NEOPLSM E669 OBESITY 02-25-2017 [facility] UNSPECIFIED PHYSICIANS GROUP I119 HYPERTENSIV 02-25-2017 [facility] E HEART PHYSICIANS DISEASE GROUP WITHOUT HEART FAILURE R0600 DYSPNEA 02-25-2017 [facility] UNSPECIFIED PHYSICIANS GROUP M11766 PAIN IN 02-18-2017 [facility] LEFT [facility] SHOULDER INC M5440 LUMBAGO 02-18-2017 [facility] WITH [facility] SCIATICA INC UNSPECIFIED SIDE J310 CHRONIC 02-17-2017 [facility] RHINITIS PHYSICIANS GROUP J329 CHRONIC 02-17-2017 [facility] SINUSITIS PHYSICIANS UNSPECIFIED GROUP J342 DEVIATED 02-17-2017 [facility] NASAL PHYSICIANS SEPTUM GROUP M5416 RADICULOPAT 02-17-2017 [facility] HY LUMBAR [facility] REGION INC M545 LOW BACK 02-17-2017 [facility]VETTE JURADO, PAIN , PSC K5900 CONSTIPATIO 02-14-2017 [facility] MEDICAL UNSPECIFIED IMAGING ASS I998 OTHER 02-11-2017 [place] DISORDER OF [facility] INC CIRCULATORY SYSTEM R0602 SHORTNESS 02-11-2017 [place] OF BREATH [facility] INC G8929 OTHER 02-10-2017 [facility] CHRONIC [facility] PAIN INTERNAL MED R002 PALPITATION 01-31-2017 [facility] S PHYSICIANS GROUP R5383 OTHER 01-31-2017 [facility] FATIGUE PHYSICIANS GROUP M792 NEURALGIA 01-27-2017 [place] AND VALLEY NEURITIS INTERNAL UNSPECIFIED MED I10 ESSENTIAL 01-26-2017 [facility] PRIMARY [facility] HYPERTENSIO INC N M542 CERVICALGIA 01-26-2017 [facility] INC H13065 SPONDYLOSIS 01-22-2017 [place] W/O MEDICAL MYELOPATH/R IMAGING ASS ADICULOPATH Y CERV RGN [id number] STRAIN 01-22-2017 [facility] MUSCLE FASC PHYSICIANS, & TENDON PLLC NECK LEVL INIT ENC E559 VITAMIN D 01-21-2017 [facility] DEFICIENCY [facility] UNSPECIFIED INC [id number] STRAIN 01-16-2017 [facility] MUSCLE & PHYSICIANS, TENDON UNS PLL WALL THORAX INIT ENC K87757 OTHER LONG 01-11-2017 [facility] DRUG THERAPY Z882 ALLERGY 01-11-2017 [facility] TO [facility] S STATUS Z886 ALLERGY 01-11-2017 [facility] AGENT STATUS Z888 ALLERGY 01-11-2017 [facility] STATUS OTH [facility]ITY RX MEDS & HOSPITAL BIOLOG [facility] STS H9203 OTALGIA 01-10-2017 [facility] BILATERAL [facility] INC I209 ANGINA 01-10-2017 [facility] PECTORIS [facility] UNSPECIFIED INC R071 CHEST PAIN 01-07-2017 [facility] ON [facility] INTERNAL MED Z720 TOBACCO USE 01-04-2017 [facility] INC A14503 MUSCLE 12-25-2016 [place] SPASM OF MEM [facility] BACK INC R1013 EPIGASTRIC 12-25-2016 [place] PAIN [place] INTERNAL MED R4702 DYSPHASIA 12-25-2016 [facility] [place] INTERNAL MED B078 OTHER VIRAL 12-23-2016 [facility] WARTS K30 FUNCTIONAL 12-23-2016 [facility] DYSPEPSIA [facility] L218 OTHER 12-23-2016 [facility] SEBORRHEIC DERMATITIS L538 OTHER 12-23-2016 [facility] SPECIFIED ERYTHEMATOU S CONDITIONS R208 OTHER 12-23-2016 [facility] DISTURBANCE S OF SKIN SENSATION R238 OTHER SKIN 12-23-2016 [facility] CHANGES K5903 DRUG 12-17-2016 [facility] INDUCED [facility] CONSTIPATIO INC N [id number] ADVERSE 12-17-2016 [facility] EFFECT [facility] OTHER INC OPIOIDS INITIAL ENCOUNTER K910 VOMITING 12-12-2016 [facility] FOLLOWING [facility] GASTROINTES INC TINAL SURGERY R600 LOCALIZED 12-12-2016 [facility] EDEMA PHYSICIANS, [facility] R609 EDEMA 12-12-2016 [place] UNSPECIFIED MEM [facility]OS[facility] INC S22709 OTHER 12-12-2016 [place] SPECIFIED MEDICAL POSTPROCEDU IMAGING ASS [facility] E6601 MORBID 12-11-2016 [facility] SEVERE HEALTH OBESITY DUE MONALISA TO EXCESS CALORIES N393 STRESS 12-11-2016 [facility] INCONTINENC HEALTH E FEMALE [facility] MALE Z903 ACQUIRED 12-11-2016 [facility] ABSENCE OF HEALTH STOMACH MONALISA X29315 ENCOUNTER 12-05-2016 [facility] FOR OTHER HEALTH PREPROCEDUR MEDICAL AL GROUP EXAMINATION K210 GASTRO-ESOP 11-22-2016 [facility] HAGEAL PHYSICIANS, REFLUX PLLC DISEASE W/ ESOPHAGITIS K625 HEMORRHAGE 11-19-2016 [place] OF ANUS AND VALLEY RECTUM INTERNAL MED M546 PAIN IN 11-08-2016 [facility] THORACIC PHYSICIANS, SPINE PLLC Z89036 PAIN IN 10-14-2016 [place] UNSPECIFIED MEDICAL HIP IMAGING ASS M533 SACROCOCCYG 10-14-2016 [place] EAL MEDICAL DISORDERS IMAGING ASS NEC N828NXL CONTUSION 10-14-2016 [facility] LOWER BACK PHYSICIANS, & PELVIS PLLC INITIAL ENCOUNTER W9544ZG UNSPECIFIED 10-14-2016 [place] INJURY MEDICAL LOWER BACK IMAGING ASS INITIAL ENCOUNTER S8048TE UNSPECIFIED 10-14-2016 [place] INJURY OF MEDICAL PELVIS IMAGING ASS INITIAL ENCOUNTER H3581 RETINAL 10-11-2016 [facility] ANG EDEMA R040 EPISTAXIS 10-10-2016 [facility] [place] INTERNAL MED E6609 OTHER 10-08-2016 [facility] OBESITY DUE BARIATRIC TO EXCESS SURGICAL CALORIES R109 UNSPECIFIED 10-08-2016 [facility] ABDOMINAL BARIATRIC PAIN SURGICAL J3489 OTHER 10-06-2016 [facility] SPECIFIED PHYSICIANS, DISORDERS PLLC NOSE AND NASAL SINUSES R05 COUGH 10-06-2016 [place] [facility] R0981 NASAL 10-06-2016 [place] CONGESTION MEDICAL IMAGING ASS A6004 HERPESVIRAL 09-27-2016 [facility] PHYSICIANS VULVOVAGINI GROUP TIS N760 ACUTE 09-27-2016 [facility] VAGINITIS PHYSICIANS GROUP [id number] CONCUSSION 09-21-2016 [place] WITHOUT LOC [facility] INITIAL INC ENCOUNTER X4171JJ UNSPECIFIED 09-21-2016 [place] INJURY OF MEDICAL HEAD IMAGING ASS INITIAL ENCOUNTER H6903 PATULOUS 09-19-2016 [facility] JARON EUSTACHIAN TUBE BILATERAL R34582 UNSPECIFIED 09-18-2016 [facility] PHYSICIANS OBSTRUCTION GROUP EUSTACHIAN TUBE BILAT R590 LOCALIZED 09-04-2016 [facility] ENLARGED [facility] P Z6834 BODY MASS 09-04-2016 [facility] INDEX BMI HEALTH 34.0-34.9 MEDICAL ADULT GROUP K5909 OTHER 09-03-2016 [facility] CONSTIPATIO GROUND N FAMILY CLINI R112 NAUSEA WITH 09-03-2016 [place] VOMITING GROUND UNSPECIFIED FAMILY CLINI R748 ABNORMAL 09-03-2016 [place] LEVELS OF GROUND OTHER SERUM FAMILY ENZYMES CLINI Z111 ENCOUNTER 09-02-2016 [facility] RESPIRATORY JAZZ TUBERCULOSI S M549 DORSALGIA 09-01-2016 [facility] UNSPECIFIED PHYSICIANS, [facility] R197 DIARRHEA 09-01-2016 [facility] UNSPECIFIED PHYSICIANS, [facility] B75750F ADVERSE 09-01-2016 [place] EFFECT [facility] P SRI INITIAL ENCOUNTER P04250 UNS PLACE 09-01-2016 [place] UNS NON [facility] P PLACE OF OCCUR EXT R195 OTHER FECAL 08-30-2016 [facility] HOSP ABNORMALITI INC ES Z202 CONTACT 08-30-2016 [facility] DEPT INFECT JAZZ SEXUAL MODE TRANSMS Z23 ENCOUNTER 08-30-2016 [facility] FOR [facility]MMUNIZATIO [facility] DEPT N JAZZ R5381 OTHER 08-29-2016 [facility] MALAISE PHYSICIANS GROUP R9431 ABNORMAL 08-29-2016 [facility] ELECTROCARD PHYSICIANS IOGRAM GROUP C63732 LYMPHOCYTOP 08-21-2016 [facility] ENIA [facility] INC J3089 OTHER 08-21-2016 [facility] RHINITIS [place] J4520 MILD 08-21-2016 [facility] INTERMITTEN PARTNERS OF T ASTHMA [place] UNCOMPLICAT ED Q662EOG OTHER 08-21-2016 [facility] ADVERSE PARTNERS OF FOOD [place] REACTIONS NEC SUBSEQUENT ENC M791 MYALGIA 08-17-2016 [facility] PHYSICIANS, [facility] M898X9 OTHER 08-12-2016 [place] SPECIFIED MEDICAL DISORDERS IMAGING ASS BONE UNSPECIFIED SITE R599 ENLARGED 08-12-2016 [place] [facility] INC UNSPECIFIED R1314 DYSPHAGIA 08-10-2016 [facility] PHARYNGOESO PHYSICIANS, PHAGEAL [facility] PHASE R5382 CHRONIC 08-07-2016 [place] FATIGUE [facility] UNSPECIFIED INC J301 ALLERGIC 08-05-2016 [facility] RHINITIS PARTNERS OF DUE TO [place] POLLEN J3081 ALLERG 08-05-2016 [facility] RHINITIS PARTNERS OF D/T ANIMAL [place] CAT DOG HAIR & DANDER R591 GENERALIZED 08-05-2016 [place] ENLARGED [facility] P I208 OTHER FORMS 08-02-2016 [facility] OF [facility] P J09902 PAIN IN 08-02-2016 [place] RIGHT KNEE MEDICAL IMAGING ASS R55 SYNCOPE AND 08-02-2016 [facility] COLLAPSE PHYSICIANS, PLLC F640TQU UNSPECIFIED 08-02-2016 [place] INJURY OF MEDICAL NECK IMAGING ASS INITIAL ENCOUNTER P6778ZY UNS INJURY 08-02-2016 [place] RT LOWER MEDICAL LEG INITIAL IMAGING ASS ENCOUNTER N281 CYST OF 08-01-2016 [facility] P X79247 OTHER 07-31-2016 [facility] EQUIPMENT INC R209 UNSPECIFIED 07-29-2016 [facility] PHYSICIANS, DISTURBANCE PLLC S OF SKIN SENSATION K589 IRRITABLE 07-24-2016 [facility] BOWEL PHYSICIANS SYNDROME GROUP WITHOUT DIARRHEA R102 PELVIC AND 07-24-2016 [facility] PERINEAL PHYSICIANS PAIN GROUP N831 CORPUS 07-22-2016 [facility] LUTEUM CYST PHYSICIANS GROUP N920 EXCESS & 07-22-2016 [facility] FREQUENT PHYSICIANS MENSTRUATIO GROUP N W/REGULAR CYCLE H68184D STRAIN UNS 07-22-2016 [facility] MUSCLE FASC PHYSICIANS, TEND THIGH PLLC RT INITIAL ENC Z7251 HIGH RISK 07-22-2016 [facility] INC R12 HEARTBURN 07-18-2016 [facility] H[facility]9 OTHER 07-17-2016 [facility] SPECIFIED PHYSICIANS DISORDERS GROUP OF EAR UNSPECIFIED EAR J302 OTHER 07-17-2016 [facility] SEASONAL PHYSICIANS ALLERGIC GROUP RHINITIS A2939KK LACERATION 07-13-2016 [facility] W/O FOREIGN PHYSICIANS, BODY SCALP PLLC INITIAL ENC Q2131QF SPRAIN 07-13-2016 [facility] UNSPECIFIED PHYSICIANS, SITE LT PLLC KNEE INITIAL ENCNTR R6889 OTHER 07-10-2016 [place] GENERAL PENDING SALE TO [facility] AND SIGNS E780 PURE 07-09-2016 [facility] HYPERCHOLES BARIATRIC TEROLEMIA SURGICAL E876 HYPOKALEMIA 07-09-2016 P Z1231 ENCOUNTER 07-08-2016 [place] SCREENING MEDICAL MAMMO MALIG IMAGING ASS NEOPLASM BREAST H6990 UNSPECIFIED 07-07-2016 [facility] TUBE PHYS PSC DISORDER UNS EAR H938X3 OTHER 07-07-2016 [facility] SPECIFIED HEALTH DISORDERS [place] OF EAR BILATERAL M5432 SCIATICA 07-07-2016 [facility] LEFT SIDE EMERGENCY PHYS PSC R1010 UPPER 07-05-2016 [facility] ABDOMINAL PHYSICIANS, PAIN PLLC UNSPECIFIED R1084 GENERALIZED 06-29-2016 [facility] ABDOMINAL PHYSICIANS, PAIN PLLC I880 NONSPECIFIC 06-27-2016 [facility] MESENTERIC PHYSICIANS, PLLC LYMPHADENIT IS R100 ACUTE 06-27-2016 [facility] ABDOMEN AMBULANCE SERVICE R1031 RIGHT LOWER 06-26-2016 [facility] PAIN PHYS L77477 RIGHT LOWER 06-26-2016 [place] [facility] ABDOMINAL HOSPITA TENDERNESS N200 CALCULUS OF 06-24-2016 [place] KIDNEY MEDICAL IMAGING ASS 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 06-11-2016 [...] EXPS TO NONIONIZING RAD R9439 ABNORMAL 04-08-2016 [facility] FUNCTION GROUP STUDY I340 [...] VALLEY IES NOT INTERNAL ELSEWHERE MED CLASSIFIED 06131 UNSPECIFIED 07-11-2015 [facility] VIRAL WARTS 2167 [...] SKIN 7020 ACTINIC 07-11-2015 [facility] KERATOSIS 47081 INFLAMED 07-11-2015 [facility] SEBORRHEIC KERATOSIS V700 ROUTINE 06-27-2015 [facility] DEPT [email or web address] FACL 38745 MORBID 06-20-2015 [facility] OBESITY BARIATRIC SURGICAL 65767 PAIN IN 06-20-2015 [facility] JOINT, SITE [facility] UNSPECIFIED 7823 EDEMA 06-20-2015 [facility] 14144 OTHER 06-20-2015 [facility] DYSPNEA AND [facility] RESPIRATORY ABNORMALITI ES 7871 HEARTBURN 06-20-2015 [facility] 7904 NONSPEC 06-20-2015 [facility] ELEVATION BARIATRIC OF LEVELS SURGICAL OF TRANSAMINAS E/LDH V4586 BARIATRIC 06-20-2015 [facility] SURGERY BARIATRIC STATUS SURGICAL V7612 OTHER 06-19-2015 [place] SCREENING MEDICAL MAMMOGRAM IMAGING ASS 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 MED 2689 UNSPECIFIED 06-12-2015 [place] VITAMIN D [facility] DEFICIENCY INTERNAL MED 5718 OTHER 06-12-2015 [place] CHRONIC [facility] NONALCOHOLI INTERNAL C LIVER MED DISEASE 7905 OTHER 06-12-2015 [place] NONSPECIFIC VALLEY ABNORMAL INTERNAL SERUM MED ENZYME LEVELS 78672 UNSPEC 05-09-2015 [facility] DISORDERS PHYSICIANS BURSAE&TEND GROUP ONS SHOULDER REGION 7262 OTHER 05-09-2015 [facility] AFFECTIONS PHYSICIANS OF SHOULDER GROUP REGION NEC 91107 OBESITY, 05-04-2015 [facility] UNSPECIFIED OLOGY AND HEPATOL 3674 PRESBYOPIA 04-28-2015 [place] 19027 CHEST PAIN 04-28-2015 [facility] UNSPECIFIED HEALTH MEDICAL GROUP 39969 ABDOMINAL 04-25-2015 [place] PAIN, COMMUNTIY UNSPECIFIED HOSPITA SITE 4019 UNSPECIFIED 04-16-2015 [place] [facility] HYPERTENSIO INC N 5990 URINARY 04-16-2015 [facility], INFECTION [facility] SITE NOT SPECIFIED 7948 NONSPECIFIC 04-16-2015 [place] [facility] RESULTS INC LIVR FUNCTION STUDY 5739 UNSPECIFIED 04-14-2015 [facility] [place] DISORDER RADIOLOGY OF LIVER 7906 OTHER 04-14-2015 [place] ABNORMAL COMM[facility]TI[facility] BLOOD HOSPITA CHEMISTRY 5939 UNSPECIFIED 04-06-2015 [place] DISORDER MEDICAL OF KIDNEY IMAGING ASS AND URETER 7891 HEPATOMEGAL 04-06-2015 [facility] Y OLOGY AND HEPATOL V140 PERSONAL 04-05-2015 [place] HISTORY OF [facility] ALLERGY TO HOSPITAL P PENICILLIN 63673 ABDOMINAL 04-03-2015 [facility] PAIN, GENERALIZED 5758 OTHER 04-01-2015 [place] SPECIFIED [facility] DISORDER OF HOSPITAL P GALLBLADDER 37909 OTHER 04-01-2015 [facility] DISORDER OF IMAGING ASS KIDNEY AND URETER 70588 ABDOMINAL 04-01-2015 [facility] RIGHT MEDICAL UPPER IMAGING ASS QUADRANT 29609 ABDOMINAL 04-01-2015 [place] PAIN, [facility] EPIGASTRIC [facility] P 7295 PAIN IN 03-29-2015 [place] SOFT COMMUNTIY TISSUES OF HOSPITA LIMB V4589 OTHER 03-29-2015 [place] POSTSURGICA COMMUNTIY L STATUS HOSPITA OTHER 52994 OTHER 03-24-2015 [place] MALAISE AND COMMUNTIY FATIGUE HOSPITA V6700 FOLLOW-UP 03-21-2015 [facility] [place] EXAMINATION RADIOLOGY FOLLOWING UNSPEC SURGERY 16938 ESOPHAGEAL 03-20-2015 [place] [facility] PS 6256 FEMALE 03-20-2015 [place] STRESS COMMUNTIY INCONTINENC HOSPITA E 43901 PAIN IN 03-20-2015 [facility] JOINT, BARIATRIC MULTIPLE SURGICAL SITES 40402 DIASTASIS 03-20-2015 [place] OF MUSCLE COMMUNTIY HOSPITA 7892 SPLENOMEGAL 03-20-2015 [facility] Y COMMUNTIY HOSPITA V8543 BODY MASS 03-20-2015 [place] INDEX COMMUNTIY 50.0-59.9 HOSPITA ADULT 2639 UNSPECIFIED 03-14-2015 [place] COMM[facility]TI[facility] PROTEIN-TEA HOSPITA ORIE MALNUTRITIO N 27827 MIGRAINE 03-07-2015 [facility] UNSP W/O BARIATRIC 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 MIGRAINOSUS 42477 OTHER 03-07-2015 [facility] URINARY BARIATRIC INCONTINENC SURGICAL E 6929 CONTACT 03-06-2015 [facility] DERMATITIS& OTHER [place] DUE UNSPEC CAUSE 6822 CELLULITIS 03-02-2015 [place] [facility] P V148 PERSONAL 03-02-2015 [place] HISTORY [facility] ALLERGY OT HOSPITAL P SPEC MEDICINAL AGTS V571 OTHER 02-22-2015 [place] PHYSICAL [facility] THERAPY INC 2724 OTHER AND 02-20-2015 [place] UNSPECIFIED COMMUNTIY HOSPITA HYPERLIPIDE LILIANE 7245 UNSPECIFIED 02-20-2015 [place] BACKACHE COMMUNTIY HOSPITA V7283 OTHER 02-20-2015 [place] SPECIFIED COMMUNTIY PRE-OPERATI HOSPITA VE EXAMINATION 2875 UNSPECIFIED 02-15-2015 [facility] PENIA 7932 NONSPC ABN 02-10-2015 [place] [facility] RAD&OTH FOUNDATION EXAM OTH INTRTHOR ORGN V7282 PRE-OPERATI 02-10-2015 [place] [facility] SERV RESPIRATORY FOUNDATION EXAMINATION 5930 NEPHROPTOSI 02-09-2015 [facility] P 7802 SYNCOPE AND 02-01-2015 [place] HOSP[facility] MEDICAL G 4139 OTHER AND 01-18-2015 [facility] [place] 32926 SHORTNESS 01-18-2015 [facility] MEDICAL [facility]ING ASS 76525 OTHER CHEST 01-18-2015 [facility] P 45325 OSTEOARTHRO 12-30-2014 DANIEL Reddy INVLV MX SITES BUT NOT SPEC GEN 69376 PAIN IN 11-09-2014 [place] [facility], [facility] SHOULDER IMAGING ASS REGION V5832 ENCOUNTER 11-09-2014 [place] FOR REMOVAL [facility] P 08157 PILAR CYST 11-02-2014 [facility] 94567 UNSPECIFIED 10-06-2014 [facility] PH[facility] IN CCE & UNS SITE 7840 HEADACHE 10-06-2014 [place] [facility] 30727 ATROPHIC 09-16-2014 [facility] WITHOUT [facility] MENTION OF HEMORRHAGE 89539 OTHER SPEC 09-16-2014 [facility] WITHOUT MENTION HEMORRHAGE 83603 DYSPHAGIA 09-16-2014 [place] UNSPECIFIED ANESTHESIA GROUP PS 6869 UNSPEC 08-17-2014 [facility] LOCAL INFECTION SKIN&SUBCUT ANEOUS TISSUE V7284 UNSPECIFIED 08-09-2014 [place] [facility] PRE-[facility]ATI INC VE EXAMINATION 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 7019 UNSPECIFIED 08-04-2014 [facility] HYPERTROPHI C&ATROPHIC CONDITION SKIN 15004 OTHER 08-04-2014 [facility] SEBORRHEIC KERATOSIS 7851 PALPITATION 08-04-2014 [facility] V7281 PRE-OPERATI 07-21-2014 [facility] CARD[facility] MEDICAL G LAR EXAMINATION 77149 PAINFUL 07-05-2014 [facility] BRYCE RESPIRATION V771 SCREENING 05-24-2014 [facility] DIABETES MELLITUS 470 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 4779 ALLERGIC 03-17-2014 [facility] RHINITIS CAUSE UNSPECIFIED 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 E849.8 E849.8 12-31-2013 [place] ACCIDENT IN [facility] E885.9 E885.9 FALL 12-31-2013 [place] FROM [facility], Hospital TRIPPING, OR STUMBLING [facility] V14.0 V14.0 12-31-2013 [place] HX-PENICILL [facility] V14.1 V14.1 12-31-2013 [place] HX-ANTIBIOT [facility] V01.6 V01.6 01-11-2013 [place] VENEREAL [facility] DIS CONTACT Hospital V0481 NEED 01-06-2009 [facility] PROPHYLACTI HEALTH C CENTRAL VACCINATION BANK ACCT &INOCULATIO N FLU 66709 PAIN IN 01-04-2009 [place] [facility] PELVIC [facility] ASSOC[facility]ATES THIGH 58167 DISPLCMT 01-04-2009 [place] LUMBAR MEDICAL INTERVERT 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 8460 SPRAIN AND 01-04-2009 [facility] DXAL [email or web address] 8472 LUMBAR 01-04-2009 [place] [facility] STRAIN INC 92386 CONTUSION 01-04-2009 [employer] BACK [email or web address] 52914 CONTUSION 01-04-2009 [facility] [email or web address] E8490 PLACE OF 01-04-2009 [place] OCCURRENCE, MEDICAL HOME IMAGING ASSOCIATES E8859 FALL FROM 01-04-2009 [place] OTHER MEDICAL SLIPPING IMAGING TRIPPING OR ASSOCIATES [...] ia de te s n re d FL 00 07 08 10 30 00 CL Ac OV 17 -1 -1 .5 00 IN ti EN 30 9- 1- 99 00 IC ve T 71 20 20 43 HF 82 17 17 73 PH A 0 72 AR 44 MA CY MC G IN CARTY LE R PE 00 07 08 59 1 00 [...] 17 79 PH E 6 94 AR FL MA OP CY 50 MC G SP [...] 43 ZA 60 17 17 63 PH FL 1 09 AR IN MA E CY [...] CY MC G IN CARTY LE R LO 68 06 07 30 30 00 CL Ac VA 18 -0 -0 .[address] 00 8- 7- 00 00 IC ve AT 46 20 20 43 IN 80 17 17 34 PH 1 26 AR 20 MA CY MG TA BL ET ME 00 06 07 21 6 00 RI Ac TH 78 -1 -0 .0 00 TE ti YL 15 2- 7- 00 01 ve FL 02 20 20 18 AI ED 20 17 17 75 D NI 7 72 PH SO AR LO MA NE CY 4 #3 MG 93 8 DO SE PK MO 16 06 07 30 30 00 [...] 17 79 PH E 6 94 AR FL MA OP CY 50 MC G SP RA Y OX 62 06 07 30 30 00 CL Ac YB 17 -0 -0 .0 00 IN ti UT 50 8- 7- 00 00 IC ve YN 27 20 20 43 IN 13 17 17 09 PH 7 28 AR CL MA CY ER 10 MG TA BL ET AZ 50 06 07 6. 5 00 RI Ac IT 11 -1 -0 00 00 TE ti HR 10 2- 7- 0 01 ve OM 78 20 20 18 AI YC 76 17 17 75 D IN 6 71 PH AR 25 MA 0 CY MG #3 TA 93 BL 8 ET ME 59 06 07 10 10 [...] 37 MC G) SP RY ME 59 05 06 10 10 00 [...] MA G CY CA PS UL E CY 00 05 06 28 14 00 CL Ac CL 59 -3 -2 .0 00 IN ti OB 13 1- 3- 00 00 IC ve EN 25 20 20 43 ZA 60 17 17 25 PH FL 1 00 AR IN MA E CY 5 MG TA BL ET GA 45 05 06 90 30 00 CL Ac BA 96 -3 -2 .0 00 IN ti PE 30 1- 3- 00 00 IC ve NT 55 20 20 42 IN 55 17 17 89 PH 0 93 AR 10 MA 0 CY MG CA PS UL E HY 00 05 06 30 [address] 18 -3 -2 .0 00 IN ti OX 50 1- 3- 00 00 IC ve YZ 67 20 20 42 IN 40 17 17 97 PH E 1 29 AR PA MA M CY 25 MG CA P LO 61 05 06 30 30 00 RI Ac VA 44 -1 -0 .[address] 20 01 ve AT 14 20 20 18 AI IN 20 17 17 36 D 1 68 PH 20 AR MA MG CY TA #3 BL 93 ET 8 OX 62 05 06 30 30 00 CL Ac YB 17 -1 -0 .0 00 IN ti UT 50 2 00 IC ve YN 27 20 20 43 IN 13 17 17 09 PH 7 28 AR CL MA CY ER 10 MG TA BL ET AM 66 05 06 20 10 00 RI Ac OX 68 -1 -0 .0 00 TE ti -C 51 9 01 ve LA 00 20 20 18 AI V 10 17 17 35 D 87 0 20 PH 5- AR 12 MA 5 CY MG #3 TA 93 BL 8 ET MO 27 05 06 30 30 00 CL Ac NT 24 -1 -0 .0 00 IN ti EL 10 00 IC ve UK 01 20 20 [...] 17 79 PH E 6 94 AR FL MA OP CY 50 MC G SP RA Y BU 00 05 06 90 30 00 CL Ac SP 37 -1 -0 .0 00 IN ti IR 81 1- 9 00 IC ve ON 15 20 20 42 E 00 17 17 82 PH HC 1 15 AR L MA 10 CY MG TA BL ET RI 13 05 06 30 30 00 CL Ac SP 66 -1 -0 .0 00 IN ti ER 80 1- 9 00 IC ve ID 03 20 [...] CY ER 37 .5 MG CA P ON 67 05 05 15 3 00 CL Ac DA 87 -0 -2 .0 00 IN ti NS 70 1 6 00 IC ve ET 16 20 20 42 RO 93 17 17 97 PH N 0 28 AR HC MA L CY 4 MG TA BL ET HY 00 05 05 30 [address] 18 -0 -2 .0 00 IN ti OX 50 1- 6 00 IC ve YZ 67 20 20 42 IN 40 17 17 97 PH E 1 29 AR PA MA M CY 25 MG CA P RA 00 04 05 60 30 00 [...] E 10 MG TA B OM 60 04 05 60 30 00 CL Ac EP 50 -2 -1 .0 00 IN ti RA 50 4- 9- 00 00 IC ve ZO 14 20 20 42 LE 60 17 17 89 PH [address] MA CY 40 MG CA PS UL E MO 29 04 05 30 30 00 [...] 42 ZA 60 17 17 82 PH FL 1 16 AR IN MA E CY 5 MG TA BL ET PH 42 04 05 6. 2 00 CL Ac EN 19 -1 -1 00 00 IN ti AZ 20 9- 2- 0 00 IC ve OP 80 20 20 42 YR 10 17 17 86 PH ID 1 72 AR IN MA E CY 10 0 MG TA B FL 50 04 05 16 30 00 CL Ac UT 38 -1 -1 .0 00 IN ti IC 30 3- 2- 00 00 IC ve 70 20 20 42 ON 01 17 17 79 PH E 6 94 AR FL MA OP CY 50 MC G SP RA Y GA 45 04 05 90 30 00 [...] 30 MG TA BL ET RI 13 03 [...] 10 MG TA BL ET LO 45 03 [...] 42 ZA 60 17 17 59 PH FL 1 23 AR IN MA E CY 5 MG TA BL ET ON 67 03 03 10 2 00 [...] CY MG CA PS UL E FL 65 03 03 20 5 00 CL [...] CY 75 MG CA PS UL E TI 60 [...] MA MG CY CA PS UL E 64 02 [...] 17 53 PH E 6 48 AR FL MA OP CY 50 MC G SP RA Y RI 13 02 03 30 30 00 CL Ac SP 66 -2 -2 .0 00 IN ti ER 80 4- 4- 00 00 IC ve ID 03 20 20 42 ON 66 17 17 32 PH E 0 44 AR 0. MA 5 CY MG TA BL ET RA 00 [...] CY 40 MG CA PS UL E LO 45 02 03 30 30 00 [...] CY ER 37 .5 MG CA P TI 55 02 03 20 7 00 [...] CY 75 #4 93 MG TA B CY 00 02 03 28 14 00 CL Ac CL 59 -2 -1 .0 00 IN ti OB 13 1- 7- 00 00 IC ve EN 25 20 20 42 ZA 60 17 17 30 PH FL 1 05 AR IN MA E CY [...] MG #3 TA 93 BL 8 ET FL 59 02 03 10 5 00 RI [...] 05 CY % SO ROSS TI ON MO 16 01 02 30 30 00 [...] 42 ZA 81 17 17 08 PH FL 0 66 AR IN MA E CY [...] #3 CA 93 PS 8 UL E FL 00 01 02 16 30 00 CL Ac UT 05 -2 -2 .0 00 IN ti IC 43 0- 4- 00 00 IC ve 27 20 20 41 ON 09 17 17 53 PH E 9 48 AR FL MA OP CY 50 MC G SP RA Y 64 01 02 4. 28 00 CL Ac T 38 -2 -2 00 00 IN ti D2 00 5- 4- 0 00 IC ve 73 20 20 41 1. 70 17 17 47 PH 25 6 11 AR MA MG CY (5 0, 00 0 UN IT ) AC 46 01 02 60 30 00 [...] MA 5 CY MG TA BL ET GE 60 01 02 5. 7 00 CL Ac NT 75 -1 -1 00 00 IN ti AM 80 4- 7- 0 00 IC ve IC 18 20 20 41 IN 80 17 17 91 PH 3 5 53 AR MA MG CY /M L EY E DR OP S HY 00 01 02 [address] 40 -1 -[address] ti OC 60 8- 7- 00 00 SI ve OD 12 20 20 47 DE ON 40 17 17 29 -A 5 25 PH CE AR TA MA MA CY NO PH OF CY 7. NT 5- HI 32 AN 5 A IN C AC 46 12 02 60 30 00 CL Ac ID 03 -2 -0 .0 00 IN ti 60 9- 3- 00 00 IC ve RE 00 20 20 41 DU 71 16 17 76 PH CE 2 22 AR R MA 75 CY MG TA BL ET NA 68 12 01 20 10 00 CL Ac FL 46 -2 -2 .0 00 IN ti [...] MA 10 CY MG TA BL ET PO 51 [...] (5 0, 00 0 UN IT ) OM 60 12 01 30 30 00 [...] D CY 10 MG TA BL ET AM 57 12 01 30 10 00 CL Ac OX 23 -1 -2 .0 00 IN ti IC 70 5- 0- 00 00 IC ve IL 03 20 20 41 LI 10 16 17 63 PH N 5 64 AR 50 MA 0 CY MG CA PS UL E NA 68 12 01 14 7 00 CL Ac FL 46 -1 -2 .0 00 IN ti OX 20 7- 0- 00 00 IC ve EN 19 20 20 41 00 16 17 65 PH 50 5 58 AR 0 MA MG CY TA BL ET IM 45 12 01 [...] 17 53 PH E 9 48 AR FL MA OP CY 50 MC G SP [...] 20 ZA 70 09 09 PH MA FL 6 AR CH IN MA AE E CY L 10 S MG TA BL ET ME 59 02 02 00 21 6 CL 18 GA Ac TH 74 -1 -2 .0 IN 75 IN ti YL 60 2- 6- 00 IC 10 EY ve FL 00 20 20 ED 10 09 09 [...] Comment ion Range Glucose 88 mg/dL 70-100 Bld-[facility] 12-31-2013 17:30 Name Value Interpretat Reference Comment [...] Bld B-HCG Ur Ql (01-11-2013 17:40) B-HCG NEGATIV NEG complet Ur Ql 013 E ed 17:40 URINALYSIS/COMPLETE (01-11-2013 17:40) URINE YELLOW YELLOW complet COLOR 013 ed 17:40 URINE Sl CLEAR complet APPEARA 013 Cloudy ed NCE 17:40 URINE NEGATIV NEG complet GLUCOSE 013 E ed [...] Procedure DOS Code Location Performer Comment ECG 98945 [facility] ROUTINE 7 PHYSICIAN ECG S, PLLC W/LEAST 12 LDS I&R ONLY EGD 86953 DOMINICK SANCHEZ TRANSORAL 7 [facility] BIOPSY MEDICAL SINGLE/MU GROUP LTIPLE ECG 42978 [facility] ROUTINE 7 HEART ECG SPECIALIS W/LEAST TS, 12 LDS I&R ONLY ECG 10220 [facility] ROUTINE 7 PHYSICIAN ECG S, PLLC W/LEAST 12 LDS I&R ONLY COMPREHEN 03473 [place] [facility] SIVE [facility] [place] [address] [facility] [facility] TROPONIN 7 [facility] QUANTITAT INC INC SABIHA ECG 51144 [place] [facility] ROUTINE 7 [facility] ECG INC INC W/LEAST 12 LDS TRCG ONLY W/O I&R ECG 31202 [facility] ROUTINE 7 [facility] ECG [facility] W/LEAST 12 LDS TRCG ONLY W/O I&R COLPOSCOP 80342 [facility] HUMPHREY Y CERVIX 7 PHYSICIAN BX CERVIX S GROUP & [place] [address] [facility] PICKLESIM SURG 7 LLC ER JR PATHOLOGY GROSS&[place] [address] [facility] TRACT 7 [facility] UPPER [facility] W/WO DELAYED IMAGES W/KUB UNCLASSIF J3490 [place] [facility] IED DRUGS 7 [place] [address] [facility] HEAD/BRAI 7 MEDICAL MEDICAL N W/O IMAGING IMAGING CONTRAST ASS ASS MATERIAL COMPREHEN 90474 [place] [facility] SIVE [facility] METABOLIC INC INC PANEL GONADOTRO 66504 [place] [facility] PIN 7 [facility] LUTEINIZI INC INC NG HORMONE GONADOTRO 37402 [place] [facility] PIN 7 [facility] FOLLICLE INC INC STIMULATI NG HORMONE BLOOD 23847 [place] [facility] COUNT 7 [facility] COMPLETE INC INC AUTO&AUTO DIFRNTL WBC LIPID 98642 [place] [facility] PANEL 7 [place] [address] [place] [facility] GAMMAGLOB 7 [facility] ULIN IGA INC INC IGD IGG IGM EACH URNLS DIP 46867 [place] [facility] STICK/TAB INC INC LET REAGENT AUTO MICROSCOP Y BLOOD 18945 [place] [facility] COUNT 7 [facility] COMPLETE INC INC AUTO&AUTO DIFRNTL WBC UNCLASSIF J3490 [place] [facility] IED DRUGS 7 [facility] INC INC COMPREHEN 50806 [facility] SIVE 7 [facility] [place] [address] [facility] [facility] INFUSION 7 [facility] THERAPY/P INC INC ROPHYLAXI S /DX 1ST TO 1 [place] [address] [place] [facility] INFUSION 7 [facility] THERAPY INC INC PROPHYLAX IS/DX EA HOUR UNCLASSIF J3490 [place] [facility] IED DRUGS 7 [facility] INC INC IADNA 85401 [facility] TOD HUMAN 7 LLC PAPILLOMA VIRUS HIGH-RISK TYPES URNLS DIP 33948 [facility] HUMP[facility]REY 7 PHYSICIAN STICK/TAB S GROUP LET RGNT NON-AUTO W/O MICRSCP CYTP 99863 [facility] TOD CERVICAL/ 7 LLC VAGINAL REQ INTERP PHYSICIAN CYTP C/V 49979 [facility], [facility] AUTO THIN 7 LLC LYR PREPJ SCR MNL RESCR PHYS ECG 81522 [place] [facility] ROUTINE 7 [facility] ECG INC INC W/LEAST 12 LDS TRCG ONLY W/O I&R PROTEIN 69853 [place] [facility] ELECTROPH 7 [facility] ORETIC INC INC FRACTJ&QU ANTJ SERUM ANTINUCLE 26298 [place] [facility] AR 7 [facility] ANTIBODIE INC INC S SANNA COMPREHEN 36640 [place] [facility] SIVE 7 [facility] METABOLIC INC INC PANEL BLOOD 71502 [place] [facility] COUNT 7 [facility] COMPLETE INC INC AUTO&AUTO DIFRNTL WBC URNLS DIP 65856 [place] TALLEYON [facility] STICK/TAB INC INC LET RGNT AUTO W/O MICROSCOP Y CT THORAX 14590 [facility] 7 MEDICAL W/CONTRAS IMAGING T ASS MATERIAL UNCLASSIF J3490 [place] [facility] I[facility] DRUGS 7 [facility] INC INC CREATININ 74936 [place] [facility] E BLOOD 7 [place] [address] [place] [facility] UREA 7 [facility] NIT[place]OG[place] [address] [facility] DX/THER 7 MD RHIANNON, AGT PVRT PSC FACET JT LMBR/SAC 3+ LEVEL ECG 81612 [place] [facility] ROUTINE 7 [facility] ECG INC INC W/LEAST 12 LDS TRCG ONLY W/O I&R ECG 17078 [facility] KIMBERLY ROUTINE 7 PHYSICIAN ECG S GROUP W/LEAST 12 LDS I&[place] NJX [address]894 [facility] DUFF DX/THER 7 MD RHIANNON, AGT PVRT PSC FACET JT LMBR/SAC 1 LEVEL NJX 73723 [facility] DUFF DX/THER 7 MD RHIANNON, AGT PVRT PSC FACET JT LMBR/SAC 2ND LEVEL UNCLASSIF J3490 [facility] [facility] IED DRUGS 7 [facility] INC INC APPL 78105 [place] [facility] MODALITY 7 [facility] 1/> AREAS INC INC IONTOPHOR ESIS EA 15 MIN THERAPEUT 29616 [place] [facility] IC PX 1/> 7 [facility] AREAS INC INC EACH 15 MIN EXERCISES APPL 05465 [place] [facility] MODALITY 7 [facility] 1/> AREAS INC INC TRACTION MECHANICA L APPL 14674 [place] [facility] MODALITY 7 [facility] 1/> AREAS INC INC ELEC STIMJ UNATTENDE D APPLICATI 12681 [place] [facility] ON 7 [facility] MODALITY INC INC 1/> AREAS HOT/COLD PACKS APPL 15836 [place] [facility] MODALITY 7 [facility] 1/> AREAS INC INC VASOPNEUM ATIC DEVICES APPL 48944 [place] [facility] MODALITY 7 [facility] 1/> AREAS INC INC ULTRASOUN D EA 15 MIN APPL 06956 [place] [facility] MODALITY 7 [facility] 1/> AREAS INC INC ELEC STIMJ UNATTENDE D APPLICATI 01743 [place] [facility] ON 7 [facility] MODALITY INC INC 1/> AREAS HOT/COLD PACKS APPL 27664 [place] [facility] MODALITY 7 [facility] 1/> AREAS INC INC TRACTION MECHANICA L PHYSICAL 41123 [place] [facility] THERAPY 7 [facility] EVALUATIO INC INC N HIGH COMPLEX 45 MINS THER 14700 [place] [facility] PROPH/DX 7 [facility] NJX IV INC INC PUSH SINGLE/1S T SBST/DRUG RADEX 78211 [facility] ABDOMEN 7 MEDICAL COMPL IMAGING W/DCBTS&/ ASS ERC VIEWS THERAPEUT 44348 [place] [facility] IC 7 [facility] INJECTION INC INC IV PUSH EACH NEW DRUG CREATINE 40283 [place] [facility] KINASE 7 [facility] TOTAL INC INC ECG 18955 [place] [facility] ROUTINE 7 [facility] ECG INC INC W/LEAST 12 LDS TRCG ONLY W/O I&R UNCLASSIF J3490 [place] [facility] IED DRUGS 7 [place] [address] [facility] [facility] AMYLASE 7 [facility] INC INC CREATINE 03872 [place] [facility] KINASE MB 7 [facility] [place] [address] [place] [facility] TROPONIN 7 [facility] QUANTITAT INC INC SABIHA COMPREHEN 30840 [place] [facility] SIVE 7 [facility] [place] [address] [facility] [facility] LIPASE 7 [facility] INC INC BLOOD 11928 [place] [facility] COUNT 7 [facility] COMPLETE INC INC AUTO&AUTO DIFRNTL WBC ECG 56313 [place] [facility] ROUTINE 7 [facility] W/LEAST P 12 LDS I&R ONLY ECG 17345 [facility] KIMBERLY ROUTINE 7 PHYSICIAN ECG S GROUP W/LEAST 12 LDS I&R ONLY ECG 95794 [place] [facility] ROUTINE 7 [facility] ECG INC INC W/LEAST 12 LDS TRCG ONLY W/O I&R APPL 17167 [place] [facility] MODALITY 7 [facility] 1/> AREAS INC INC TRACTION MECHANICA L APPLICATI 59739 [place] [facility] ON 7 [facility] MODALITY INC INC 1/> AREAS HOT/COLD PACKS APPL 89501 [place] [facility] MODALITY 7 [facility] 1/> AREAS INC INC ELEC STIMJ UNATTENDE D APPL 23935 [place] [facility] MODALITY 7 [facility] 1/> AREAS INC INC ELEC STIMJ UNATTENDE D APPLICATI 90368 [place] [facility] ON 7 [facility] MODALITY INC INC 1/> AREAS HOT/COLD PACKS APPL 89490 [place] [facility] MODALITY 7 [facility] 1/> AREAS INC INC TRACTION MECHANICA L APPLICATI 37558 [facility] [facility] ON 7 [facility] MODALITY INC INC 1/> AREAS HOT/COLD PACKS APPL 23775 [place] [facility] MODALITY 7 [facility] 1/> AREAS INC INC ELEC STIMJ UNATTENDE D THERAPEUT 08790 [place] [facility] IC PX 1/> 7 [facility] AREAS INC INC EACH 15 MIN EXERCISES ECG 63922 [facility] ROUTINE 7 PHYSICIAN ECG S GROUP W/LEAST 12 LDS I&R ONLY XTRNL ECG 10205 [place] [facility] & 48 HR 7 [facility] RECORDING INC INC ECG 47856 [facility] ROUTINE 7 PHYSICIAN ECG S, PLLC W/LEAST 12 LDS I&R ONLY RADIOLOGI 35472 [facility] C EXAM 7 PHYSICIAN CHEST 2 S, PLLC VIEWS FRONTAL&L ATERAL COMPREHEN 91365 [place] [facility] SIVE 7 [facility] METABOLIC INC INC PANEL CREATINE 34186 [place] [facility] KINASE MB 7 [facility] FRACTION INC INC ONLY MRI 88843 [facility] SPINAL 7 CANAL ORTHOPAED LUMBAR ICS PSC W/O CONTRAST MATERIAL BLOOD 27016 [place] [facility] COUNT 7 [facility] COMPLETE INC INC AUTO&[place] [address] [place] [facility] TROPONIN 7 [facility] QUANTITAT INC INC SABIHA ECG 93262 [place] [facility] ROUTINE 7 [facility] ECG INC INC W/LEAST 12 LDS TRCG ONLY W/O I&R GROUND A0425 [facility] MILEAGE 7 AMBULANCE AMBULANCE PER SERVICE SERVICE STATUTE MILE CREATINE 03441 [place] [facility] KINASE 7 [facility] TOTAL INC INC AMB A0427 [facility] SERVICE 7 AMBULANCE AMBULANCE ALS SERVICE SERVICE EMERGENCY TRANSPORT LEVEL 1 THERAPEUT 08421 [place] [facility] IC PX 1/> 7 [facility] AREAS INC INC EACH 15 MIN EXERCISES APPL 05923 [place] [facility] MODALITY 7 [facility] 1/> AREAS INC INC ELEC STIMJ UNATTENDE D APPLICATI 52899 [place] [facility] ON 7 [facility] MODALITY INC INC 1/> AREAS HOT/COLD PACKS APPL 81937 [place] [facility] MODALITY 7 [facility] 1/> AREAS INC INC TRACTION MECHANICA L RADEX 37533 [facility] SPINE 7 [place] LUMBOSACR ORTHOPAED AL 2/[address] [place] [address] [facility] CERVICAL 7 MEDICAL MEDICAL SPINE W/O IMAGING IMAGING CONTRAST ASS ASS MATERIAL ECG 89951 [place] [facility] ROUTINE 7 [facility] ECG INC INC W/LEAST 12 LDS TRCG ONLY W/O I&[place] [address] [place] CERRAT[facility] HEAD/BRAI 7 MEDICAL N W/O IMAGING CONTRAST ASS MATERIAL ECG 67826 [place] [facility] ROUTINE 7 [facility] W/LEAST P 12 LDS I&[place] [address] [place] [facility] FOLIC 7 [facility] ACID INC INC SERUM CYANOCOBA 55494 [place] [facility] LYUBOV 7 [facility] VITAMIN INC INC B-12 COLLECTIO 55746 [place] [facility] N VENOUS 7 [facility] BLOOD INC INC VENIPUNCT URE 25 25223 [place] [facility] HYDROXY 7 [facility] INCLUDES INC INC FRACTIONS IF PERFORMED THERAPEUT 53222 [place] [facility] IC 7 [facility] PROPHYLAC INC INC TIC/DX INJECTION SUBQ/IM UNCLASSIF J3490 [place] [facility] IED DRUGS 7 [facility] INC INC UNCLASSIF J3490 [place] [facility] I[facility] DRUGS 7 [facility] INC INC URNLS DIP 74613 [place] [facility] STICK/TAB INC INC LET REAGENT AUTO MICROSCOP Y DESTRUCTI 72725 [facility] JASSO ON BENIGN 7 LESIONS UP TO 14 [place] [address] [facility] TRACT 7 RADIOLOGY UPPER ASSOC W/WO DELAYED IMAGES W/KUB RADEX 24094 [place] SAQIB ABDOMEN 1 7 MEDICAL [place] [address] [place] [facility] INFUSION 7 [facility] THERAPY/P INC INC ROPHYLAXI S /DX 1ST TO 1 HR TX PROC G0238 [place] [facility] IMPRV 7 [facility] RESP INC INC FUNCT NOT G0237 FCE-FCE 15MIN COMPREHEN 36456 [place] [facility] SIVE 7 [facility] METABOLIC INC INC PANEL BLOOD 35356 [place] [facility] COUNT 7 [facility] COMPLETE INC INC AUTO&AUTO DIFRNTL WBC RADEX 42608 [place] [facility] ESOPHAGUS 7 MEDICAL IMAGING ASS RAD EXP G9500 [place] CERRATO INDICES/E 7 MEDICAL XP TM & IMAGING NUMB ASS FLUORO IMAGES DOC INJECTION J0330 [facility] [address] [place] [address] SUCCINYLC [facility] HOLINE CHLORIDE UP TO 20 MG INJECTION J2405 [facility] [address] [place] [address] ONDANSETR [facility] ON HCL PER 1 MG INJECTION J1100 [facility] [address] [place] [address] DEXAMETHO [facility] SONE SODIUM PHOSPHATE 1 MG INJECTION J1170 [facility] [address] [place] [address] HYDROMORP [facility] KURTIS UP TO 4 MG ANES 02685 [facility] INTRAPERI 7 [place] TONEAL ANESTHESI UPPER A ABDOMEN W/LAPS NOS LAPS RPR 35386 [facility] [address] HR MEDICAL INCL GROUP FUNDPLSTY W/O MESH INJECTION J1650 [facility] [address] [place] [address] ENOXAPARI [facility] N SODIUM 10 MG INJECTION J2704 [facility] PROPOFOL [address] [place] [address] 10 MG [facility] INJECTION J2710 [facility] BAPTISM 7 [facility] NEOSTIGMI [facility] NE METHYLSUL FATE UP TO 0.5 MG INJECTION J3010 [facility] B[facility] FENTANYL 7 [facility] CITRATE [facility] 0.1 MG GLUCOSE 06757 [facility] QUANTITAT 7 [facility] SABIHA BLOOD [facility] XCPT REAGENT STRIP HEMOGLOBI 57160 [facility] N 7 [facility] GLYCOSYLA [facility] LANEY A1C BLOOD 42361 [facility] COUNT 7 [facility] COMPLETE [facility] AUTOMATED ECG 20108 [facility] ANNA ROUTINE 7 [facility] ECG MEDICAL W/LEAST GROUP 12 LDS I&R ONLY COLLECTIO 96435 [facility] N VENOUS 7 [facility] BLOOD [facility] VENIPUNCT URE ECG 72213 [facility] ROUTINE 7 [facility] ECG [facility] W/LEAST 12 LDS TRCG ONLY W/O I&R ECG 24306 [place] [facility] ROUTINE 6 [facility] ECG INC INC W/LEAST 12 LDS TRCG ONLY W/O I&R THERAPEUT 91854 [place] [facility] IC 6 [facility] INJECTION INC [place] [address] [place] [facility] INFUSION 6 [facility] THERAPY/P INC INC ROPHYLAXI S /DX 1ST TO 1 HR RADEX 19411 [place] [facility] ABDOMEN 6 [facility] COMPL INC INC W/DCBTS&/ ERC VIEWS ECG 39184 [place] [facility] JR ROUTINE 6 [facility] W/LEAST P 12 LDS I&R ONLY RADIOLOGI 99186 [facility] C EXAM 6 MEDICAL MEDICAL CHEST 2 IMAGING IMAGING VIEWS ASS ASS FRONTAL&L ATERAL BLOOD 41270 [place] [facility] COUNT 6 [facility] COMPLETE INC INC AUTO&AUTO DIFRNTL WBC COMPREHEN 06415 [place] [facility] SIVE 6 [facility] [place] [address] [place] [facility] LIPASE 6 [facility] [place] [address] [place] [facility] AMYLASE 6 [facility] INC INC BLOOD 90853 [place] OCCULT 6 [facility] PEROXIDAS INTERNAL E ACTV MED QUAL FECES 1 DETER GLUC BLD 06568 [place] [facility] GLUC MNTR 6 [facility] DEV INC [place] [address] [place] [facility] HEAD/BRAI 6 [facility] N W/O INC INC CONTRAST MATERIAL THERAPEUT 30413 [place] [facility] IC 6 [facility] PROPHYLAC INC INC TIC/DX INJECTION SUBQ/IM RADEX 81047 [place] [facility] SPINE 6 [facility] LUMBOSACR INC INC AL MINIMUM 4 VIEWS RADEX 35722 [place] SACRUM & 6 [facility] COCCYX INC INC MINIMUM 2 VIEWS URINE 10999 [place] 6 [facility] TEST INC INC VISUAL COLOR CMPRSN METHS RADIOLOGI 68927 [place] C 6 [facility] EXAMINATI INC INC ON PELVIS 1/2 VIEWS RADIOLOGI 74961 [place] C EXAM 6 MEDICAL ADRIANNA CHEST 2 IMAGING VIEWS ASS FRONTAL&L ATERAL RADEX 13030 [place] SINUSES 6 [facility] PARANASAL INC INC COMPL MINIMUM 3 VIEWS BLOOD 48368 [place] COUNT 6 [facility] COMPLETE INC INC AUTO&AUTO DIFRNTL WBC CUL BACT 91911 [place] XCPT 6 [facility] URINE INC INC BLOOD/STO OL AEROBIC ISOL IAADI 91784 [place] INFLUENZA 6 [facility] B VIRUS INC INC IAADI 35743 [place] INFFLUENZ 6 [facility] [place] [place] [address] [place] STREPTOCO 6 [facility] CCUS INC INC GROUP A ANESTHESI 61651 [facility] FEEBACK A NOSE & 6 ANESTH ACCESSORY [place] [address] [facility] ER [facility] PATHOLOGY GROSS&BRYCE ROSCOPIC EXAM DECALCIFI 88749 [facility] CATION 6 [facility] ER JR WANDA PROCEDURE ECG 11861 [place] ROUTINE 6 [facility] ECG INC INC W/LEAST 12 LDS TRCG ONLY W/O I&R ECG 69700 [place] MATUTE ROUTINE 6 [facility] W/LEAST P 12 LDS I&R ONLY ANTIBODY 27275 [place] HERPES 6 [facility] SMPLX INC INC TYPE 1 ANTIBODY 29492 [place] VIRUS NOT 6 [facility] INC INC ELSEWHERE SPECIFIFE D BLOOD 19430 [place] COUNT 6 [facility] COMPLETE INC INC AUTO&AUTO DIFRNTL WBC COMPREHEN 64534 [place] SIVE 6 [facility] METABOLIC INC INC PANEL COLLECTIO 71739 [place] N VENOUS 6 [facility] [place] [address] [place] MAXILLOFA 6 [facility] CIAL W/[place] [address] [facility] BEINEKE HEAD/BRAI 6 MEDICAL N W/O IMAGING CONTRAST ASS MATERIAL URINE 66964 [place] [facility] 6 [facility] TEST INC [place] V[place] [address] [facility] OCONNELLINEMILA CERVICAL 6 MEDICAL SPINE W/O IMAGING CONTRAST ASS MATERIAL COMPRE 59924 MAEGAN ISSA AUDIOMETR 6 JARON JARON Y THRESHOLD EVAL SP RECOGNIJ TYMPANOME 85256 MAEGAN ISSA TRY 6 JARON JARON DISTORT 61927 ISSA ISSA PRODUCT 6 JARON JARON EVOKED OTOACOUST IC EMISNS LIMITD PULMONARY 34079 [place] JERO STRESS 6 MEDICAL TESTING SERV SIMPLE FOUNDATIO N GAS [address]10 [place] DILUT/WAS 6 MEDICAL MEDICAL HOUT LUNG SERV SERV VOL W/WO FOUNDATIO FOUNDAT[place] DISTRI[place] N N [place] [address] [place] JERO DIFFUSING 6 MEDICAL CAPACITY SERV FOUNDATIO N ELIG CLIN G8427 STAMPING MICHAEL TRI ATTSTS 6 GROUND DOC M REC FAMILY OBTD CLINI UPD/REV PT MEDS ECG 09478 [place] ROUTINE 6 [facility] W/LEAST P 12 LDS I&R ONLY BLOOD 10173 [place] OCCULT 6 [facility] PEROXIDAS INC INC E ACTV QUAL FECES 1-3 SPEC IM ADM 85889 [facility] PRQ ID 6 [facility] DISTRICT SUBQ/IM HLTH DEPT HLTH DEPT NJXS EA JAZZ JAZZ VACCINE BLOOD 21117 [place] COUNT 6 [facility] COMPLETE INC INC AUTO&AUTO DIFRNTL WBC SYPHILIS 65666 [facility] TEST 6 DISTRICT DISTRICT NON-TREPO HLTH DEPT HLTH DEPT NEMAL JAZZ JAZZ ANTIBODY QUAL IM ADM 30623 [facility] PRQ ID 6 DISTRICT DISTRICT SUBQ/IM HLTH DEPT HLTH DEPT NJXS 1 JAZZ JAZZ VACCINE TDAP 60169 [facility] VACCINE 7 6 [facility] DISTRICT YRS/> IM HLTH DEPT HLTH DEPT JAZZ JAZZ COLLECTIO 52457 [place] Gutierrez VENOUS 6 [facility] BLOOD INC INC VENIPUNCT URE SKIN TEST 29251 [facility] 6 [facility] TUBERCULO HLTH DEPT HLTH DEPT SIS JAZZ JAZZ INTRADERM AL XTRNL ECG 01756 [place] MAT[place] 6 [facility] S RHYTHM P W/I&R UP TO 48 HRS BLOOD 26248 [place] COUNT 6 [facility] RETICULOC INC INC YTE AUTOMATED AMBULANCE A0429 STACY COTE SERVICE 6 AMBULANCE PATY BLS SERVICE EMERGENCY TRANSPORT SEDIMENTA 24437 [place] TION RATE 6 [facility] RBC INC INC NON-AUTOM ATED GROUND A0425 STACY COTE MILEAGE 6 AMBULANCE PATY PER SERVICE STATUTE MILE PROF SVCS 32153 ALLERGY ROSENTHAL MAR ALLG 6 [facility] IMMNTX X OF [place] W/PRV CO ALLGIC XTRCS NJXS NITRIC 25822 ALLERGY ROSENTHAL MAR OXIDE 6 [facility] [place] GAS CO DETERMINA TION BLOOD 79279 [place] COUNT 6 [facility] COMPLETE INC INC AUTO&AUTO DIFRNTL WBC RHEUMATOI 33915 [place] Morillo FACTOR 6 [facility] QUANTITAT INC INC SABIHA ECG 08151 [place] ROUTINE 6 [facility] W/LEAST P 12 LDS I&R ONLY SPMTRY 62736 ALLERGY ROSENTHAL MAR W/VC 6 [facility]ERS EXPIRATOR OF [place] Y ABHI CO W/WO MXML VOL VNTJ ANTINUCLE 19210 [place] AR 6 [facility] ANTIBODIE INC INC S SANNA BLOOD 75397 [place] COUNT 6 [facility] COMPLETE INC INC AUTO&AUTO DIFRNTL WBC BASIC 29537 [place] METABOLIC 6 [facility] PANEL INC INC CALCIUM TOTAL TECHNETIU A9503 [place] Montenegro TC-99M 6 [facility] MEDRONATE INC INC DX UP TO 30 MCI BONE 80236 [place] &/JOINT 6 [facility] IMAGING INC INC WHOLE BODY COLLECTIO 22020 [place] N VENOUS 6 [facility] BLOOD INC INC VENIPUNCT URE SEDIMENTA 47710 [place] TION RATE 6 [facility] RBC INC INC NON-AUTOM ATED BLOOD 60435 [place] COUNT 6 [facility] RETICULOC INC INC YTE AUTOMATED RADIOLOGI 77758 [facility] C EXAM 6 MEDICAL MEDICAL CHEST 2 IMAGING IMAGING VIEWS ASS ASS FRONTAL&L ATERAL ANES 65456 [place] BRITTNY LOWER 6 ANESTHESI INTESTINE A GROUP [place] [address] [place] THYROXINE 6 [facility] TOTAL INC INC THYROID 88167 [place] HORM 6 [facility] UPTK/THYR INC INC OID HORMONE BINDING RATIO COLLECTIO 79127 [place] N VENOUS 6 [facility] [place] [address] [place] THYROID 6 [facility] STIMULATI INC INC NG HORMONE TSH GONADOTRO 24682 [place] PIN 6 [facility] FOLLICLE INC INC STIMULATI NG HORMONE GONADOTRO 71934 [place] PIN 6 [facility] LUTEINIZI INC INC NG HORMONE RADIOLOGI 56227 [facility] C 6 MEDICAL MEDICAL EXAMINATI IMAGING IMAGING ON CHEST ASS ASS SINGLE VIEW FRONTAL ECG 57863 [place] ROUTINE 6 [facility] W/LEAST P 12 LDS I&R ONLY GROUND A0425 [facility] MILEAGE 6 AMBULANCE KILO PER SERVICE STATUTE MILE AMB A0427 [facility] SERVICE 6 AMBULANCE KILO ALS SERVICE EMERGENCY TRANSPORT LEVEL 1 PREPJ& 97000 ALLERGY ROSENTHAL MAR ALLERGEN 6 PARTNERS IMMUNOTHE OF TRE PEREZ CO 1/[place] [address] [place] INFUSION 6 [facility] THERAPY INC [place] [address] [place] INFUSION 6 [facility] THERAPY/P INC INC ROPHYLAXI S /DX 1ST TO 1 [place] [address] [place] TROPONIN 6 [facility] QUANTITAT INC INC SABIHA CREATINE 92789 [place] KINASE 6 [facility] [place] [address] [place] CERVICAL 6 [facility] SPINE W/O INC INC CONTRAST MATERIAL ECG 54338 [place] ROUTINE 6 [facility] ECG INC INC W/LEAST 12 LDS TRCG ONLY W/O I&R ECG 54928 [place] ROUTINE 6 [facility] W/LEAST P 12 LDS I&R ONLY RADIOLOGI 96116 [place] C 6 [facility] EXAMINATI INC INC ON KNEE 3 VIEWS BLOOD 13492 [place] COUNT 6 [facility] COMPLETE INC INC AUTO&AUTO DIFRNTL WBC COMPREHEN 19826 [place] SIVE 6 [facility] [place] [address] [place] HEAD/BRAI 6 [facility] N W/O INC INC CONTRAST MATERIAL CREATINE 80619 [place] KINASE MB 6 [facility] FRACTION INC INC ONLY SPMTRY 17476 ALLERGY ROSENTHAL MAR W/VC 6 [facility] [place] Y ABHI CO W/WO MXML VOL VNTJ SPACR A4627 [facility] KRASNOPOL BAG/RESRV 6 EQUIPMENT ANTONIO LAUREN OR W/WO INC MASK W/METRD DOSE INHAL PERCUTANE 31137 ALLERGY ROSENTHAL MAR OUS TESTS 6 [facility] [place] W/ALLERGE CO LEO EXTRACTS INTRACUTA 80803 ALLERGY ROSENTHAL MAR NEOUS 6 PARTNERS TESTS OF [place] W/ALLERGE CO LEO EXTRACTS NITRIC 65562 ALLERGY ROSENTHAL MAR OXIDE 6 [facility] [place] [address] [facility] TRANSVAGI 6 PHYSICIAN MEAGAN NAL S GROUP ECG 34686 [place] CHAVEZ JR ROUTINE 6 [facility] W/LEAST P 12 LDS I&R ONLY IADNA 87744 [place] CHLAMYDIA 6 [facility] INC INC TRACHOMAT IS AMPLIFIED PROBE TQ IADNA 31046 [place] NEISSERIA 6 [facility] INC INC GONORRHOE [place] [address] [facility] ANDREWS TRACT 6 RADIOLOGY RHO UPPER W/WO DELAYED IMAGES W/KUB RADIOLOGI 23240 [place] CERRAT[place] ALL C 6 MEDICAL EXAMINATI IMAGING ON CHEST ASS SINGLE VIEW FRONTAL ECG 80324 [place] ROUTINE 6 [facility] W/LEAST P 12 LDS I&R ONLY ELECTROEN 44706 CINTHYA DONALD CEPHALOGR 6 N AM W/REC NEUROLOGY AWAKE&[place] [address] [facility] ABDOMEN & 6 MEDICAL MEDICAL PELVIS IMAGING IMAGING W/CONTRAS ASS ASS T MATERIAL ECG 84854 [place] ROUTINE 6 [facility] W/LEAST P 12 LDS I&R ONLY ELECTROEN 57414 [facility] CEPHALOGR 6 N N AM W/REC COMMUNTIY COMMUNTIY [facility]PITA WSY RADEX 41640 SEJAL CERRATO ALL SPINE 6 MEDICAL THORACIC IMAGING 2 VIEWS ASS ECG 06957 [place] CHAVEZ JR ROUTINE 6 [facility] W/LEAST P 12 LDS I&R ONLY RADIOLOGI 83411 SEJAL CERRATO ALL C 6 MEDICAL EXAMINATI IMAGING ON CHEST ASS SINGLE VIEW FRONTAL SCREENING G0202 [facility] ABBOT[facility]AR[facility] 6 MEDICAL ADRIANNA MAMMOGRAP IMAGING HY WILBERT ASS INCL CAD WHEN PERFORMD COMPUTER- 26808 [facility] HAR[facility] AIDED 6 MEDICAL ADRIANNA DETECTION IMAG[place] [address] [place] INFUSION 6 [facility] THERAPY/P INC INC ROPHYLAXI S /DX 1ST TO 1 HR RADEX ABD 82577 SEJAL CERRATO ALL COMPL 6 MEDICAL AQT ABD IMAGING W/S/E/D ASS VIEWS 1 VIEW CH ECG 05949 [place] ROUTINE 6 [facility] ECG INC INC W/LEAST 12 LDS TRCG ONLY W/O I&[place] [address] [place] TROPONIN 6 [facility] [place] [address] [place] LACTATE 6 [facility] INC INC BLOOD 07577 [place] COUNT 6 [facility] COMPLETE INC INC AUTO&AUTO DIFRNTL WBC ECG 24569 [place] CHAVEZ JR ROUTINE 6 [facility] W/LEAST P 12 LDS I&R ONLY URNLS DIP 01940 [place] 6 [facility] STICK/TAB INC INC LET REAGENT AUTO MICROSCOP Y COMPREHEN 99528 [place] SIVE 6 [facility] [place] [address] [place] INFUSION 6 [facility] THERAPY/P INC INC ROPHYLAXI S /DX 1ST TO 1 [place] [address] [place] TROPONIN 6 [facility] QUANTITAT INC INC SABIHA CREATINE 78457 [place] KINASE 6 [facility] TOTAL INC INC ECG 71623 [place] ROUTINE 6 [facility] ECG INC INC W/LEAST 12 LDS TRCG ONLY W/O I&R COMPREHEN 87914 [place] A[place] SIVE 6 [facility] METABOLIC INC INC PANEL CULTURE 10242 [place] BACTERIAL 6 [facility] INC INC QUANTTATI VE COLONY COUNT URINE CREATINE 15164 [place] KINASE MB 6 [facility] FRACTION INC INC ONLY URINE 89161 [place] 6 [facility] TEST INC INC VISUAL COLOR CMPRSN METHS URNLS DIP 75963 [place] 6 [facility] STICK/TAB INC INC LET REAGENT AUTO MICROSCOP Y BLOOD 61578 [place] COUNT 6 [facility] COMPLETE INC INC AUTO&AUTO DIFRNTL WBC ECG 08127 [place] ROUTINE 6 [facility] W/LEAST P 12 LDS I&R ONLY RADIOLOGI 86151 [place] C EXAM 6 [facility] CHEST 2 INC INC VIEWS FRONTAL&L ATERAL GROUND A0425 [facility] AMBULANCE PER SERVICE SERVICE STATUTE MILE AMB A0427 [facility] SERVICE 6 AMBULANCE AMBULANCE ALS SERVICE SERVICE EMERGENCY TRANSPORT LEVEL 1 RADEX ABD 76214 [place] C[place] ALL COMPL 6 MEDICAL AQT ABD IMAGING W/S/E/D ASS VIEWS 1 [place] [address] [facility] INFUSION 6 N N HYDRATION COMMUNTIY COMMUNTIY EACH HOSPITA HOSPITA ADDITIONA L HOUR THER 25324 [facility] PROPH/DX 6 N N NJX IV COMMUNTIY COMMUNTIY PUSH HOSPITA HOSPITA SINGLE/1S T SBST/DRUG COLLECTIO 45693 [facility] N VENOUS 6 N N BLOOD COMMUNTIY COMMUNTIY VENIPUNCT HOSPITA HOSPITA URE BLOOD 80544 [facility] COUNT 6 N N COMPLETE COMMUNTIY COMMUNTIY AUTO&AUTO HOSPITA HOSPITA DIFRNTL WBC MRI BRAIN 90996 [facility] BRAIN 6 N N STEM W/O COMMUNTIY COMMUNTIY CONTRAST HOSPITA HOSPITA MATERIAL COMPREHEN 49544 [facility] SIVE 6 N N METABOLIC COMMUNTIY [place] [address] [place] C[place] ALL HEAD/BRAI 6 MEDICAL N W/O IMAGING CONTRAST ASS MATERIAL RADIOLOGI 22685 [place] CERR[place] ALL C 6 MEDICAL EXAMINATI IMAGING ON CHEST ASS SINGLE VIEW FRONTAL ECG 20896 [place] ROUTINE 6 [facility] W/LEAST P 12 LDS I&R ONLY GROUND A0425 [facility] MILEAGE 6 AMBULANCE AMBULANCE PER SERVICE SERVICE STATUTE MILE AMB A0427 [facility] SERVICE 6 AMBULANCE AMBULANCE ALS SERVICE SERV[place] [address] [facility] ALL ABDOMEN & 6 MEDICAL PELVIS IMAGING W/O ASS CONTRAST MATERIAL THERAPEUT 54114 [facility] LUKING IC PX 1/> 6 AREAS EACH 15 MIN EXERCISES CHIROPRAC 35680 [facility] TIC 6 MANIPLTV TX EXTRASPIN AL 1/> REGION MANUAL 11917 [facility] THERAPY 6 TQS 1/> REGIONS EACH 15 MINUTES CHIROPRAC 87249 [facility] TIC 6 MANIPULAT SABIHA TX SPINAL 3-4 REGIONS MANUAL 08693 [facility] THERAPY 6 TQS 1/> REGIONS EACH 15 MINUTES THERAPEUT 67348 [facility] LUKING IC PX 1/> 6 AREAS EACH 15 MIN EXERCISES THERAPEUT 70158 [facility] LUKING IC PX 1/> 6 MATTI MATTI AREAS EACH 15 MIN EXERCISES MANUAL 28367 [facility] THERAPY 6 MATTI MATTI TQS 1/> REGIONS EACH 15 MINUTES CHIROPRAC 35968 [facility] LUKING TIC 6 MATTI MATTI MANIPULAT SABIHA TX SPINAL 3-4 REGIONS CHIROPRAC 84034 [facility] LUKING TIC 6 MATTI MATTI MANIPLTV TX EXTRASPIN AL 1/> REGION IMHISTOCH 91642 SCALF LEI SCALF LEI EM/CYTCHM 6 1ST [place]IB[place] [address] SCALF LEI SCALF LEI SURG 6 PATHOLOGY GROSS&BRYCE ROSCOPIC EXAM BX SKIN 72462 SCALF LEI SCALF LEI SUBCUTANE 6 OUS&/MUCO US MEMBRANE 1 LESION COMPREHEN 20770 [facility] QUEST SIVE 6 DIAGNOSTI DIAGNOSTI METABOLIC CS CS PANEL ECG 44696 [place] ROUTINE 6 [facility] W/LEAST P 12 LDS I&R ONLY ECG 54695 BAPTISMBerenice ANDRES ROUTINE 6 [facility] HEN ECG MEDICAL W/LEAST GROUP 12 LDS I&R ONLY LIPID 90272 BAPTISM BAPTISM PANEL [address] [place] [address] [facility]auer [facility] HEMOGLOBI 78575 BAPTISM BAPTISM N 6 GrouPAY GLYCOSYLA [facility] LANEY A1C BLOOD 71895 BAPTISM BAPTISM COUNT 6 [facility] Benhauer COMPLETE [facility] AUTOMATED CATH PLMT 37919 BAPTISM MCKENNA Ortega HRT & 6 HEALTH IV ARTS MEDICAL W/NJX & GROUP ANGIO IMG S&I BASIC 77147 BAPTISM BAPTISM METABOLIC 6 [facility] HEALTH PANEL [facility] CALCIUM TOTAL INJECTION J3010 BAPTISM BAPTISM FENTANYL 6 [facility] CITRATE [facility] 0.1 MG LOCM Q9967 BAPTISM BAPTISM 300-399 6 [facility] MG/ML [facility] IODINE CONCENTRA TION PER ML COLLECTIO 77121 BAPTISM BAPTISM N VENOUS 6 [facility] BLOOD [facility] VENIPUNCT URE INJECTION J1644 BAPTISM BAPTISM HEPARIN 6 [facility] Benhauer SODIUM [facility] PER 1000 UNITS GONADOTRO 84681 BAPTISM BAPTISM PIN 6 [facility] Benhauer CHORIONIC [facility] QUANTITAT SABIHA CV STRS 18103 [place] TST 6 [facility] [place]OR [facility] RX CONT P P ECG W/O I&R CV STRS 54079 [place] TST 6 [facility] XERS&/OR INC INC RX CONT ECG TRCG ONLY CV STRS 35837 [place] TST 6 [facility] [place]OR [facility] RX CONT P P ECG I&R ONLY MYOCARDIA 64874 SEJAL CERRATO ALL L SPECT 6 MEDICAL MULTIPLE IMAGING STUDIES ASS UNCLASSIF J3490 [place] IED DRUGS 6 [facility] INC INC TECHNETIU A9500 [place] M TC-99M 6 [facility]OS[facility] SESTAMIBI INC INC DX PER STUDY DOSE ECHO 93533 MELANIE STERN TTHRC R-T 6 MEDICAL 2D SERV W/WOM-MOD FOUNDATIO E COMPL N SPEC&COLR D ECG 04610 AUSTINKIMBERLY CHAVEZ JR ROUTINE 6 [facility] W/LEAST P 12 LDS I&R ONLY RADIOLOGI 78367 SEJAL CERRATO ALL C 6 MEDICAL EXAMINATI IMAGING ON CHEST ASS SINGLE VIEW FRONTAL OPHTH 45476 [facility] MEDICAL 6 XM&EVAL COMPRHNSV ESTAB PT 1/> 25 50572 [facility] HYDROXY 6 MAI MAI INCLUDES HOLDINGS HOLDINGS FRACTIONS IF PERFORMED PREALBUMI 77170 [facility] MAHESH N 6 [place] [address] LAB [facility] LAB MAHESH PHOSPHORU 6 MAI MAI [place] [address] LAB [facility] LAB MAHESH THIAMINE- 6 MAI MAI VITAMIN [employer]INGS [place] B-[address] [place] [address] LAB [facility] LAB MAHESH VITAMIN A 6 [place] [address] LAB [facility] LAB MAHESH TOCOPHERO 6 MAI MAI L ALPHA [place] [address] LAB [facility] LAB MAHESH ZINC 6 MAI MAI HOLDINGS HOLDINGS ORGANIC 73126 LAB MA[facility] LAB MAHESH ACID 1 6 MAI MAI QUANTITAT [place] [address] LAB [facility] LAB MAHESH PARATHORM 6 [place] [address] LAB [facility] LAB MAHESH IRON 6 [place] [address] LAB [facility] LAB MAHESH FERRITIN 6 [place] [address] LAB [facility] LAB MAHESH MAGNESIUM 6 MAI MAI [facility] HOLDINGS COMPREHEN 65198 [facility] SIVE 6 MAI MAI [place]AB[place] [address] LAB [facility] LAB [facility]ESH FOLIC 6 MAI MAI ACID HOLDINGS HOLDINGS SERUM BLOOD 22384 [facility] LAB MAHESH COUNT 6 MAI MAI COMPLETE HOLDINGS HOLDINGS AUTO&AUTO DIFRNTL WBC BLOOD 82218 [place] COUNT 6 [facility] COMPLETE INC INC AUTO&AUTO DIFRNTL WBC IRON 19155 [place] BINDING 6 [facility] [place] [address] [place] VAUGHN FERRITIN 6 [facility] TERA INC COMPREHEN 42186 [place] SIVE 6 [facility] [address] [place] IRON 6 [place] [address] [place] [facility] THYROID 6 [facility] STIMULATI INC INC NG HORMONE TSH COLLECTIO 98893 [place] N VENOUS 6 [facility] BLOOD INC INC VENIPUNCT URE 25 58844 [place] HYDROXY 6 [facility] INCLUDES INC INC FRACTIONS IF PERFORMED CYTP 68366 [facility] CERVICAL/ 6 LLC VAGINAL REQ INTERP PHYSICIAN CYTP C/V 54770 [facility] AUTO THIN 6 LLC LYR PREPJ SCR MNL RESCR PHYS IADNA 52884 [facility] NEISSERIA 6 LLC GONORRHOE AE AMPLIFIED PROBE TQ IADNA 73155 [facility] CHLAMYDIA 6 LLC TRACHOMAT IS AMPLIFIED PROBE TQ IADNA 20950 [facility] HUMAN 6 LLC PAPILLOMA VIRUS HIGH-RISK TYPES BASIC 84565 [facility] METABOLIC 6 [facility] [place] [address] [facility] THYROID 6 [facility] STIMULATI INC INC NG HORMONE TSH COLLECTIO 37996 [facility] N VENOUS 6 [facility] BLOOD INC INC VENIPUNCT URE COLLECTIO 16723 [facility] N VENOUS 6 [facility] [place] [address] [facility] THIAMINE- 6 [facility] VITAMIN INC INC B-1 COMPREHEN 56389 [facility] SIVE 6 [facility] METABOLIC INC INC PANEL PREALBUMI 45579 [facility] N 6 [place] [address] [facility] IRON 6 [facility] INC INC BLOOD 20047 [facility] COUNT 6 [facility] COMPLETE INC INC AUTO&[place] [address] [facility] FERRITIN 6 [facility] INC INC ORGANIC 49239 [facility] ACID 1 6 [facility] [place] [place] [address] [facility] FERRITIN 5 MAI [facility] ORGANIC 61834 [facility] ACID 1 5 MAI [facility] QUANTITAT [place] [address] [facility] FOLIC 5 MAI MA[facility] [place] [address] [facility] IRON 5 MAI [facility]INGS HOLDINGS GENERAL 91264 [facility] HEALTH 5 MAI [facility] PANEL [facility]INGS HOLDINGS PREALBUMI 46977 [facility] N 5 [place] [address] [facility] THIAMINE- 5 [facility] VITAMIN [facility] HOLDINGS B-1 DESTRUCTI 81821 ATKINS ATKINS ON 5 TRA TRA PREMALIGN [place] 1[place] [address] SCALF LEI SCALF LEI SURG 5 PATHOLOGY GROSS&BRYCE ROSCOPIC EXAM BIOPSY 28883 ATKINS ATKINS SKIN 5 TRA TRA SUBQ&/MUC OUS MEMBRANE EA ADDL LESN DESTRUCTI 87235 ATKINS ATKINS ON BENIGN 5 TRA TRA LESIONS UP TO 14 BX SKIN 90564 ATKINS ATKINS SUBCUTANE 5 TRA TRA OUS&/MUCO US MEMBRANE 1 [place] [address] [facility] FOLIC 5 MAI MAI ACID HOLDINGS HOLDINGS SERUM ORGANIC 32066 [facility] ACID 1 5 MAI MAI QUANTIT[place] [address] [facility] IRON 5 MAI MAI HOLDINGS HOLDINGS BLOOD 73350 [facility] COUNT 5 MAI [facility] COMPLETE HOLDINGS HOLDINGS AUTO&[place] [address] [facility] THIAMINE- 5 MAI [facility] VITAMIN HOLDINGS HOLDINGS B-1 PREALBUMI 28867 [facility] N 5 [facility]INGS COMPREHEN 06083 [facility] SIVE 5 MAI [facility] METABOLIC [facility]INGS HOLDINGS PANEL COMPUTER- 90845 [facility] AIDED [facility] DETECTION INC INC SCREENING MAMMOGRAP HY SCREENING G0202 [facility] MAMMOGRAP INC INC HY WILBERT INCL CAD WHEN PERFORMD BLOOD 25338 [facility] COUNT 5 [facility] COMPLETE INC INC AUTO&AUTO DIFRNTL WBC LIPID 11320 [facility] PANEL 5 [facility] INC INC HEMOGLOBI 80845 [facility] N 5 [facility] GLYCOSYLA INC INC LANEY A1C COMPREHEN 15088 [facility] SIVE 5 [facility] [place] [address] [facility]UTAM[facility]LT [facility] [place] [address] [facility] THYROID 5 [facility] STIMULATI INC INC NG HORMONE TSH 25 07678 [facility] HYDROXY 5 [facility] INCLUDES INC INC FRACTIONS IF PERFORMED CYANOCOBA 11076 [facility] LYUBOV 5 [facility] VITAMIN INC INC B-12 COLLECTIO 51744 [facility] N VENOUS 5 [facility] BLOOD INC INC VENIPUNCT URE OPHTH 35579 [facility] 5 ANG ANG XM&EVAL COMPRHNSV ESTAB PT 1/> [place] [address] [facility] ABDOMEN & 5 N N PELVIS COMMUNTIY COMMUNTIY W/[place] [address] [facility] ABDOMEN & 5 [facility] PELVIS [place] [address] [facility] AMYLASE 5 [facility] INC INC CULTURE 57012 [facility] BACTERIAL 5 MEM [facility] [place] [address] [facility] LIPASE [facility] COMPREHEN 74030 [facility] SIVE 5 [facility] METABOLIC INC INC PANEL BLOOD 09587 [facility] COUNT 5 [facility] COMPLETE INC INC AUTO&AUTO DIFRNTL WBC URINE 68936 [facility] TEST INC INC VISUAL COLOR CMPRSN METHS URNLS DIP 86085 [facility] STICK/TAB INC INC LET REAGENT AUTO MICROSCOP Y BLOOD 92209 [facility] COUNT 5 N N COMPLETE COMMUNTIY COMMUNTIY AUTO&AUTO [place] [address] [facility] PARATHORM 5 N N ONE COMMUNTI[place] [address] [facility] ZINC 5 N N [place] [address] [facility] LIPASE 5 N N [place] [address] [facility] MAGNESIUM 5 N N COMM[place] [address] [facility] AMYLASE 5 N N [place] [address] GEORGETOW GEORGETOW FOLIC 5 N N ACID COMMUNTIY COMMUNTIY SERUM [facility]OSPITA [facility]OSPITA ORGANIC 65092 [facility] ACID 1 5 N N QUANTITAT COMMUNTIY COMMUNTIY SABIHA [facility]OSPITA [facility]OSPITA COMPREHEN 40175 [facility] SIVE 5 N N METABOLIC COMMUNTIY [place] [address] [facility] [place] ANDREWS ABDOMINAL 5 RADIOLOGY RHO REAL TIME W/[place] [address] [facility] TOCOPHERO 5 N N L ALPHA COMMUNTIY COMMUNTIY [place] [address] [facility] VITAMIN A 5 N N COMMUNTIY COMMUNTIY [facility]OSPITA HOSPITA 25 13236 [facility] HYDROXY 5 N N INCLUDES COMMUNTIY COMMUNTIY FRACTIONS [facility]OSPITA [facility]OSP[facility] IF PERFORMED PREALBUMI 58613 [facility] N 5 N N COMMUNTIY COMMUNTIY HOSPITA HOSPITA COLLECTIO 41485 [facility] N VENOUS 5 N N BLOOD COMMUNTIY COMMUNTIY [place]IPUN[place] [address] [facility] PHOSPHORU 5 N N S COMMUNTIY COMMUNTIY [place] [address] [facility] THIAMINE- 5 N N VITAMIN COMMUNTIY COMMUNTIY B-1 HOSPITA HOSPITA PROTHROMB 65006 [facility] IN TIME 5 N N COMMUNTIY COMMUNTIY HOSPITA HOSPITA HEPATITIS 51669 [facility] B CORE 5 N N ANTIBODY COMMUNTIY COMMUNTIY HBCAB HOSPITA HOSPITA TOTAL HEPATITIS 62227 [facility] B SURF 5 N N ANTIBODY COMMUNTIY COMM[place] [address] [facility] HEPATITIS 5 N N B COMMUNTIY COMMUNTIY SURFACE HOSPITA [facility]OSPITA ANTIGEN ANTINUCLE 32511 [facility] AR 5 N N ANTIBODIE COMMUNTIY COMMUNTIY S SANNA [facility]OSPITA [facility]OSP[facility] COMPREHEN 51013 [facility] SIVE 5 N N METABOLIC COMMUNTIY [place] [address] [facility] [facility] RETROPERI 5 [facility] TONEAL INC INC REAL TIME W/[place] [address] SEJAL ENGLE RETROPERI 5 MEDICAL TONEAL IMAGING REAL TIME ASS W/IMAGE LIMITED COLLECTIO 94601 [facility] N VENOUS 5 N N BLOOD COMMUNTIY COMMUNTIY VENIPUNCT HOSPITA HOSPITA URE IMMUNOASS 72038 [facility] AY 5 N N ANALYTE COMMUNTIY COMMUNTIY QUAL/SEMI HOSPITA [place] [address] [facility] FERRITIN 5 N N [place] [address] [facility] IRON 5 N N COMMUNTIY COMMUNTIY HOSPITA HOSPITA BLOOD 71501 [facility] COUNT 5 N N COMPLETE COMMUNTIY COMMUNTIY AUTOMATED HOSPITA HOSPITA HEPATITIS 55258 [facility] C 5 N N ANTIBODY COMMUNTIY COMMUNTIY HOSPITA HOSPITA ALPHA-1-A 77279 [facility] NTITRYPSI 5 N N N TOTAL COMMUNTIY [place] [address] [facility] GAMMAGLOB 5 N N ULIN IGA COMMUNTIY COMMUNTIY IGD IGG HOSPITA HOSPITA IGM EACH IRON 83669 [facility] BINDING 5 N N CAPACITY [place] [address] [facility] SMITH KADIE ABDOMEN & 5 MEDICAL PELVIS IMAGING W/O ASS CONTRAST MATERIAL DUP-SCAN 05921 [facility] XTR VEINS 5 N N COMPLETE COMMUNTIY COMMUNTIY HOSPITA HOSPITA BILATERAL STUDY BLOOD 31754 [facility] COUNT 5 N N COMPLETE COMMUNTIY COMMUNTIY AUTO&AUTO [place] [address] [facility] LIPASE 5 N N COMMUNTIY [place] [address] [facility] AMYLASE 5 N N COMMUNTIY COMMUNTIY HOSPITA HOSPITA COLLECTIO 62202 [facility] N VENOUS 5 N N BLOOD COMMUNTIY COMMUNTIY VENIPUNCT HOSPITA HOSPITA URE COMPREHEN 74444 [facility] SIVE 5 N N METABOLIC COMMUNTIY COMMUNTI[place] [address] [facility] [place] SCALF HUBER TRACT 5 RADIOLOGY UPPER W/WO DELAYED IMAGES W/KUB ANES IPR 62331 [place] BRITTNY ANT UPPER 5 ANESTHESI ABDOMEN A GROUP LAPS PS GASTRIC RSTCV MO LAPS 35359 [facility] SANCHEZ MICHELLE GSTRC 5 RSTRICTIV BARIATRIC PX SURGICAL LONGITUDI NAL GASTRECTO MY LAPAROSCO 4382 [facility] PIC 5 N N VERTICAL COMMUNTIY COMMUNTIY SLEEVE HOSPITA HOSPITA GASTRECTO MY OTHER 4513 [facility] ENDOSCOPY 5 N N OF SMALL COMMUNTIY COMMUNTIY HOSPITA HOSPITA INTESTINE APPL 32042 [facility] [facility] MODALITY 5 [facility] 1/> AREAS INC INC ELEC STIMJ UNATTENDE D APPLICATI 76109 [facility] [facility] ON 5 [facility] MODALITY INC INC 1/> AREAS HOT/COLD PACKS APPL 26014 [place] [facility] MODALITY 5 [facility] 1/> AREAS INC INC ULTRASOUN D EA 15 MIN COLLECTIO 89057 [facility] N VENOUS 5 N N BLOOD COMMUNTIY COMMUNTIY VENIPUNCT HOSPITA HOSPITA URE BLOOD 22784 [facility] COUNT 5 N N COMPLETE COMMUNTIY COMMUNTIY AUTOMATED HOSPITA [facility]OSPITA COMPREHEN 66202 [facility] SIVE 5 N N METABOLIC COMMUNTIY COMMUNTIY PANEL HOSPITA HOSPITA GONADOTRO 84725 [facility] PIN 5 N N CHORIONIC COMMUNTIY COMMUNTIY HOSPITA HOSPITA QUALITATI VE DUP-SCAN 42698 [place] [facility] XTR VEINS 5 [facility] COMPLETE INC INC BILATERAL STUDY APPL 60839 [facility] [facility] MODALITY 5 [facility] 1/> AREAS INC INC ULTRASOUN D EA 15 MIN APPLICATI 54935 [place] [facility] ON 5 [facility] MODALITY INC INC 1/> AREAS HOT/COLD PACKS APPL 79098 [facility] [facility] MODALITY 5 [facility] 1/> AREAS INC INC ELEC STIMJ UNATTENDE D THERAPEUT 88372 [facility] [facility] IC PX 1/> 5 [facility] AREAS INC INC EACH 15 MIN EXERCISES CUL BACT 41581 [place] [facility] XCPT 5 [facility] URINE INC INC BLOOD/STO OL AEROBIC ISOL SUSCEPTIB 08582 [facility] [facility] LTY STDY 5 [facility] ANTIMICRB INC INC IAL MICRO/AGA R DILUTJ THERAPEUT 66091 [facility] [facility] IC PX 1/> 5 [facility] AREAS INC INC EACH 15 MIN EXERCISES APPL 11533 [facility] [facility] MODALITY 5 [facility] 1/> AREAS INC INC ELEC STIMJ UNATTENDE D APPLICATI 10998 [place] [facility] ON 5 [facility] MODALITY INC INC 1/> AREAS HOT/COLD PACKS APPL 67736 [facility] [facility] MODALITY 5 [facility] 1/> AREAS INC INC ULTRASOUN D EA 15 MIN APPL 14546 [place] [facility] MODALITY 5 [facility] 1/> AREAS INC INC ULTRASOUN D EA 15 MIN APPLICATI 49786 [facility] [facility] ON 5 [facility] MODALITY INC INC 1/> AREAS HOT/COLD PACKS APPL 45071 [place] [facility] MODALITY 5 [facility] 1/> AREAS INC INC ELEC STIMJ UNATTENDE D APPL 50811 [place] [facility] MODALITY 5 [facility] 1/> AREAS INC INC IONTOPHOR ESIS EA 15 MIN APPL 68901 [place] [facility] MODALITY 5 [facility] 1/> AREAS INC INC IONTOPHOR ESIS EA 15 MIN THERAPEUT 43583 [facility] [facility] IC PX 1/> 5 [facility] AREAS INC INC EACH 15 MIN EXERCISES APPL 13959 [place] [facility] MODALITY 5 [facility] 1/> AREAS INC INC ELEC STIMJ UNATTENDE D APPLICATI 20335 [place] [facility] ON 5 [facility] MODALITY INC INC 1/> AREAS HOT/COLD PACKS APPL 76746 [place] [facility] MODALITY 5 [facility] 1/> AREAS INC INC ULTRASOUN D EA 15 MIN COLLECTIO 75975 [facility] N VENOUS 5 N N BLOOD COMMUNTIY COMMUNTIY [place] [address] [facility] THYROID 5 N N STIMULATI COMMUNTIY COMMUNTIY NG HOSPITA HOSPITA HORMONE TSH CUL 32255 [facility] PRSMPTV 5 N N PTHGNC COMMUNTIY COMMUNTIY ORGANISM HOSPITA HOSPITA SCRN W/[place] [address] [facility] THYROXINE 5 N N TOTAL COMMUNTIY COMMUNTIY HOSPITA HOSPITA THYROID 06911 [facility] HORM 5 N N UPTK/THYR COMMUNTIY COMMUNTIY OID HOSPITA HOSPITA HORMONE BINDING RATIO COMPREHEN 36803 [facility] SIVE 5 N N METABOLIC COMMUNTIY COMMUNTIY PANEL HOSPITA HOSPITA ECG 31200 [facility] ROUTINE 5 N N ECG COMMUNTIY COMMUNTIY W/LEAST HOSPITA HOSPITA 12 LDS TRCG ONLY W/O I&R BLOOD 87893 [facility] COUNT 5 N N COMPLETE COMMUNTIY COMMUNTIY AUTOMATED HOSPITA HOSPITA RADIOLOGI 90961 [facility] [place] DANUT[place] C EXAM 5 RADIOLOGY SHA CHEST 2 VIEWS FRONTAL&L ATERAL LIPID 22187 [facility] PANEL 5 N N COMMUNTIY COMMUNTIY HOSPITA HOSPITA PHYSICAL 37932 [facility] [facility] THERAPY 5 [facility] EVALUATIO INC INC N COLLECTIO 85053 [facility] N VENOUS 5 [facility] BLOOD INC INC VENIPUNCT URE FIBRIN 27137 [facility] [facility] DGRADJ 5 [facility]OS[facility] PRODUCTS INC INC D-DIMER QUAL/SEMI GIL[place]ERT ECG 72490 [facility] [facility] ROUTINE 5 [facility]OS[facility] ECG INC INC W/LEAST 12 LDS TRCG ONLY W/O I&[place] [address] [facility] [facility] TROPONIN 5 [facility]OSP QUANTITAT INC INC SABIHA URNLS DIP 48451 [place] [facility] 5 [facility]OS[facility] STICK/TAB INC INC LET REAGENT AUTO MICROSCOP Y RADIOLOGI 39425 [facility] CANSECO C EXAM 5 MEDICAL ADRIANNA CHEST 2 IMAGING VIEWS ASS FRONTAL&L ATERAL ECG 99078 [place] CHAVEZ JR ROUTINE 5 [facility] W/LEAST P 12 LDS I&R ONLY BLOOD 11414 [place] [facility] COUNT 5 [facility] COMPLETE INC INC AUTO&AUTO DIFRNTL WBC COMPREHEN 77142 [facility] [facility] SIVE 5 [facility]OS[facility] METABOLIC INC INC PANEL BLOOD 34075 [place] [facility] COUNT 5 [facility] COMPLETE INC INC AUTO&AUTO DIFRNTL WBC ECG 76512 [place] MATUTE ROUTINE 5 [facility] W/LEAST P 12 LDS I&R ONLY RADIOLOGI 51047 SEJAL CANSECO C EXAM 5 MEDICAL ADRIANNA CHEST 2 IMAGING VIEWS ASS FRONTAL&[place] [address] [facility] TROPONIN 5 [facility] QUANTITAT INC INC SABIHA COMPREHEN 55093 [place] [facility] SIVE 5 [facility]OS[facility] METABOLIC INC INC PANEL ECG 12999 [place] [facility] ROUTINE 5 [facility] ECG INC INC W/LEAST 12 LDS TRCG ONLY W/O I&R FIBRIN 68412 [facility] [facility] DGRADJ 5 [facility] HOSP PRODUCTS INC INC D-DIMER QUAL/[place] [address] SEJAL CAROLINACHER ANGIOGRAP 5 MEDICAL ADRIANNA HY CHEST IMAGING W/CONTRAS ASS T/NONCONT RAST LOCM Q9967 [facility] [facility] 300-399 5 [facility] MG/ML INC INC IODINE CONCENTRA TION PER ML RADEX 99518 [facility] HARLEEN SHOULDER 4 MEDICAL COMPLETE IMAGING MINIMUM 2 ASS VIEWS DESTRUCTI 22382 ATKINS ATKINS ON BENIGN 4 TRA TRA LESIONS UP TO 14 LEVEL III 78620 SCALF LEI SCALF LEI SURG 4 PATHOLOGY GROSS&BRYCE ROSCOPIC EXAM REPAIR 84011 ATKINS ATKINS COMPLEX 4 TRA TRA SCALP/ARM /LEG 1.1-2.5 CM THERAPEUT 32887 [facility] [facility] IC 4 [facility]P INJECTION INC [place] [address] [facility] CANSECO HEAD/BRAI 4 MEDICAL ADRIANNA N W/O IMAGING CONTRAST ASS MATERIAL EGD 82969 [facility] SANCHEZ MICHELLE TRANSORAL 4 BIOPSY BARIATRIC SINGLE/[place] [address] [facility], PICKLESIM SURG [address] [facility] ER [facility] PATHOLOGY GROSS&BRYCE ROSCOPIC EXAM ANES 88877 [facility] UPPER GI 4 ANESTHESI JOSE ANGEL ENDOSCOPY A GROUP PROXIMAL PS TO DUODENUM SPECIAL 42708 [facility], PICKLESIM STAIN 4 [facility] 1 MICROORGA NISMS I&R SPCL STN 17439 [facility], PICKLESIM 2 I&R 4 [facility] EXCPT MICROORG/ ENZYME/IM CYT SPMTRY 24771 [place] [facility] W/VC 4 [facility]OSP EXPIRATOR INC INC Y ABHI W/WO MXML VOL VNTJ EXC B9 66086 ADVANCED SCALF LEI LESION 4 DERMATOLO MRGN XCP GY SK TG S/N/H/F/G 1.1-2.0CM REPAIR 65317 ADVANCED SCALF LEI COMPLEX 4 DERMATOLO SCALP/ARM GY /LEG 1.1-2.5 CM LEVEL III 85686 SCALF LEI SCALF LEI SURG 4 PATHOLOGY GROSS&BRYCE ROSCOPIC EXAM RADIOLOGI 57182 [place] [facility] C EXAM 4 [facility] CHEST 2 INC INC VIEWS FRONTAL&L ATERAL REMOVAL 76506 ARACELI WAYNEKINS SKN TAGS 4 TRA TRA TRAVELING NURSE FIBRQ TAGS ANY AREA UPW/15 CV STRS 04557 [place] MATUTE TST 4 [facility] RX CONT P ECG I&R ONLY CV STRS 76751 [place] [facility] TST 4 [facility] XERS&/OR INC INC RX CONT ECG TRCG ONLY ECHO 10665 [place] [facility] TTHRC R-T 4 [facility] 2D INC INC W/WOM-MOD E COMPL SPEC&COLR D RADIOLOGI 64537 [place] [facility] EXAM 4 MEDICAL CARMEN CHEST 2 IMAGING VIEWS ASS FRONTAL&L ATERAL ECG 69923 SCOTT CHAVEZ JR ROUTINE 4 DWI DWI ECG W/LEAST 12 LDS I&R ONLY BLOOD 43020 [facility] [facility] COUNT 4 [facility] COMPLETE INC INC AUTO&AUTO DIFRNTL WBC BASIC 16226 [facility] [facility] METABOLIC 4 [facility] PANEL INC INC CALCIUM TOTAL RADIOLOGI 24945 [facility] [facility] C 4 [facility] EXAMINATI INC INC [place] [address] [facility] TROPONIN 4 [facility] QUANTITAT INC INC SABIHA ECG 21057 [facility] [facility] ROUTINE 4 [facility] ECG INC INC W/LEAST 12 LDS TRCG ONLY W/O I&R ECG 27062 [place] [facility] ROUTINE 4 [facility] ECG INC INC W/LEAST 12 LDS TRCG ONLY W/O I&R FIBRIN 90555 [facility] [facility] DGRADJ 4 [facility] PRODUCTS INC INC D-DIMER QUAL/[place] [address] [facility] TROPONIN 4 [facility] QUANTITAT INC INC SABIHA CREATINE 82582 [facility] [facility] KINASE 4 [facility] TOTAL INC INC CREATINE 73926 [place] [facility] KINASE MB 4 [facility] FRACTION INC INC ONLY COMPREHEN 44273 [place] TALLEYON SIVE 4 [facility] METABOLIC INC INC PANEL BLOOD 89509 [place] [facility] COUNT 4 [facility] COMPLETE INC INC AUTO&AUTO DIFRNTL WBC RADIOLOGI 55772 [facility] [facility] C EXAM 4 [facility] CHEST 2 INC INC VIEWS FRONTAL&L ATERAL ECG 56530 BESSON BESSON ROUTINE 4 DOMINIQUE DOMINIQUE ECG W/LEAST 12 LDS I&R ONLY HEMOGLOBI 33134 COMBINED COMBINED N 4 PHYSICIAN PHYSICIAN GLYCOSYLA S LA S LA LANEY A1C LIPID 40721 COMBINED COMBINED PANEL 4 PHYSICIAN PHYSICIAN S LA S LA GENERAL 71692 COMBINED COMBINED HEALTH 4 PHYSICIAN PHYSICIAN PANEL S LA S LA 25 46568 COMBINED COMBINED HYDROXY 4 PHYSICIAN PHYSICIAN INCLUDES S LA S LA FRACTIONS IF PERFORMED CYANOCOBA 08769 COMBINED COMBINED LYUBOV 4 PHYSICIAN PHYSICIAN VITAMIN S LA S LA B-12 SEDIMENTA 45311 COMBINED COMBINED TION RATE 4 PHYSICIAN PHYSICIAN [place] [address] COMBINED COMBINED FREE 4 PHYSICIAN PHYSICIAN THYROXINE S LA S LA COMPUTER- 76661 [place] [facility] AIDED 4 [facility] DETECTION INC INC SCREENING MAMMOGRAP HY SCREENING G0202 [place] [facility] 4 [facility] MAMMOGRAP INC INC HY WILBERT INCL CAD WHEN PERFORMD LIPID 65695 [facility] QUEST PANEL 4 DIAGNOSTI DIAGNOSTI CS CS IIV3 23157 DHS/CO [place] VACCINE 9 [facility] VIRUS 0.5 BANK ACCT ML DOSAGE IM USE RADEX 66754 KIMBERLEE SANCHEZEY, SPINE 9 [facility] S LUMBSCR CORPORATI COMPL ON W/BENDING VIEWS MIN 6 RADIOLOGI 99723 Cliff [facility] MAX P EXAMINATI IMAGING ON PELVIS ASSOCIATE 1/2 S VIEWS RADEX HIP 73503 Georgi CRAIG UNILATERA IMAGING L ASSOCIATE COMPLETE S MINIMUM 2 VIEWS RADEX 39852 [place] [facility] SPINE 9 [facility] LUMBOSACR INC INC AL MINIMUM 4 VIEWS Encounters Encounter Start End Date Code Location Performer Type Date OFFICE 32515 [place] [facility] 7 7 [place] T VISIT INTERNAL 15 MED MINUTES EMERGENCY 39481 [facility] SANCHEZEY DEPT 7 7 PHYSICIAN VISIT S, [facility] HIGH SEVERITY& THREAT [facility] OFFICE 79222 [place] OUT[facility] 7 7 [facility] T VISIT 5 INC MINUTES [facility] [place] [facility] OUTPATIEN INC T EMERGENCY 36796 [facility] 7 PHYSICIAN VISIT S, [facility] HIGH SEVERITY& THREAT [facility] [place] [facility] OUTPATIEN INC T EMERGENCY 02323 [place] 7 7 [facility] DEPARTMEN INC T VISIT MODERATE SEVERITY [facility] 7 7 HEALTH OUTPATIEN [facility] OFFICE 47619 [place] ARSLAN OUTPATIEN 7 7 [place] T VISIT INTERNAL 15 MED MINUTES [facility] - 7 7 HEALTH OUTPATIEN [facility] OFFICE 00145 [place] CELI OUTPATIEN 7 7 [facility] T VISIT HOSPITAL 10 P MINUTES OFFICE 09161 [place] FUNES OUTPATIEN 7 7 HEALTH T VISIT MEDICAL 25 GROUP MINUTES [facility] [place] [facility] OUTPATIEN INC T OFFICE 61096 [place] OUT[facility]IEN 7 7 [facility] T VISIT INC 10 MINUTES OFFICE 77468 YVETTE AVINA OUTPATIEN 7 7 MD RHIANNON, T VISIT PSC 15 MINUTES OFFICE 10838 [place] OUTPATIEN 7 7 [facility] T VISIT 5 INC MINUTES [facility] [place] [facility] OUTPATIEN INC T OFFICE 72273 [place] WEISS JR OUTPATIEN 7 7 [facility] T VISIT HOSPITAL 10 P MINUTES EMERGENCY 20769 S[facility] PASCUAL DEPT 7 7 PHYSICIAN VISIT S, PLLC HIGH SEVERITY& THREAT FUNCJ EMERGENCY 57910 [place] 7 7 [facility] DEPARTMEN INC T VISIT LOW/MODER SEVERITY [facility] [place] [facility] OUTPATIEN INC T [facility] [place] [facility] 7 7 [facility] OUTPATIEN INC T OFFICE 48906 [place] CELI OUTPATIEN 7 7 [facility]IS[facility] 10 P MINUTES [facility] [place] [facility] 7 [facility] OUTPATIEN INC T EMERGENCY 20122 [facility] SOTOMAYOR 7 7 PHYSICIAN JR [facility] HIGH/URGE NT SEVERITY [facility] [place] [facility] OUTPATIEN INC T OFFICE 14896 [place] GIOVANI OUTPATIEN 7 7 [place] T VISIT INTERNAL 15 MED MINUTES PERIODIC 80934 [facility] HUMPHREY PREVENTIV 7 7 PHYSICIAN E MED EST S GROUP PATIENT [id number] [facility] [place] - 7 7 [facility] OUTPATIEN INC T OFFICE 48420 [facility] MAEGAN OUTPATIEN 7 7 PHYSICIAN T VISIT S GROUP 15 MINUTES EMERGENCY 70224 [facility] JAQUEZ 7 7 PHYSICIAN DEPARTMEN S, [facility] V[facility]IGH/URGE NT SEVERITY [facility] [place] [facility] 7 [facility] OUTPATIEN INC T OFFICE 40047 [place] CELI OUTPATIEN 7 7 [facility] T VISIT HOSPITAL 10 P MINUTES OFFICE 42299 [place] OUT[facility]IEN 7 7 [facility] T VISIT INC 10 MINUTES [facility] [place] [facility] OUTPATIEN INC T [facility] [place] [facility] OUTPATIEN INC T OFFICE 55349 [facility] KIMBERLY OUTPATIEN 7 7 PHYSICIAN T VISIT S GROUP 25 MINUTES [facility] [place] [facility] OUTPATIEN INC T [facility] [place] [facility] OUTPATIEN INC T OFFICE 80603 [facility] ISSA OUTPATIEN 7 7 PHYSICIAN T VISIT S GROUP 10 MINUTES OFFICE 66311 YVETTE MARSHPERCY OUTPATIEN 7 7 MD RHIANNON, T NEW 30 PSC MINUTES OFFICE 07929 [place] [facility] 7 7 [facility] T VISIT 5 INC MINUTES [facility] [place] [facility] OUTPATIEN INC T EMERGENCY 18025 S[facility] SOTOMAYOR 7 7 PHYSICIAN JR DEPARTMEN S, PLLC T VISIT HIGH/URGE NT SEVERITY [facility] [place] [facility] 7 7 [facility] OUTPATIEN INC [facility] [place] - 7 7 [facility] OUTPATIEN INC T OFFICE 07110 [facility] KIMBERLY OUTPATIEN 7 7 PHYSICIAN T VISIT S GROUP 25 MINUTES OFFICE 65428 [place] M[place] OUTPATIEN 7 7 [place] T VISIT INTERNAL 15 MED MINUTES OFFICE 18376 [facility] KIMBERLY OUTPATIEN 7 7 PHYSICIAN T VISIT S GROUP 25 MINUTES [facility] [place] [facility] OUTPATIEN INC T OFFICE 34277 [facility] OUTPATIEN 7 7 [place] T VISIT ORTHOPAED 15 IC MINUTES EMERGENCY 47573 S[facility] ARMIJO DEPT 7 7 PHYSICIAN VISIT S, PLLC HIGH SEVERITY& THREAT FUNCJ EMERGENCY 80263 [place] 7 7 [facility] DEPARTMEN INC T VISIT HIGH/URGE NT SEVERITY [facility] [place] [facility] 7 7 [facility] OUTPATI[facility] INC T OFFICE [id number] [place] [facility] 7 7 [place] T VISIT INTERNAL 25 MED MINUTES OFFICE 66631 [place] [facility] 7 7 [facility] T [facility]ISIT 5 INC MINUTES [facility] [place] [facility] 7 7 [facility] OUTPATIEN INC T OFFICE 37331 [facility] OUTPAT[facility] 7 7 [place] T NEW 30 ORTHOPAED MINUTES IC EMERGENCY 52222 [place] 7 7 [facility] T VISIT LOW/MODER SEVERITY EMERGENCY 73652 SMI[facility] JIMENEZ DEPT 7 7 PHYSICIAN U VISIT [facility] HIGH [facility]VERITY& THREAT [facility] [place] [facility] 7 [facility] T [facility] [place] [facility] 7 7 [facility] [place] [facility] 7 7 [facility] OUTPATIEN [facility] T EMERGENCY 30129 [place] 7 7 [facility] DEPARTMEN [facility] T VISIT MODERATE [facility]VERITY [facility] [place] [facility] 7 7 [facility] OUTPATIEN [facility] T EMERGENCY 76459 [place] 7 7 [facility] T VISIT LOW/MODER SEVERITY EMERGENCY 81987 SMILEY PASCUAL 7 7 PHYSICIAN DEPARTMEN S, [facility] T VISIT HIGH/URGE NT SEVERITY OFFICE 33382 [place] [facility] 7 7 [facility] T [facility]ISIT 5 INC MINUTES [facility] [place] [facility] 7 7 [facility] OUTPATIEN INC T OFFICE 54040 [place] [facility] OUTPATIEN 7 7 [place] T VISIT INTERNAL 15 MED MINUTES EMERGENCY 64202 [facility] 7 7 [facility] T VISIT LOW/MODER SEVERITY [facility] [place] [facility] 7 7 [facility] 91896 [facility] 7 7 [facility] EMERGENCY T VISIT PHYS MODERATE SEVERITY [facility] [place] [facility] INC T OFFICE 62307 [place] [facility] 7 7 [facility] T VISIT 5 INC MINUTES OFFICE 20284 [place] [facility] 7 7 [place] T VISIT INTERNAL 15 MED MINUTES EMERGENCY 28030 SMI[facility] MEDEROS 7 7 PHYSICIAN [facility] S [facility] T VISIT MODERATE SEVERITY [facility] [place] [facility] 7 7 [facility] INC T OFFICE 34181 [place] [facility] 7 7 [facility] T [facility]ISIT 5 INC MINUTES OFFICE 97451 [place] [facility] 7 7 [facility] T VISIT 5 INC MINUTES [facility] [place] [facility] INC T OFFICE 70951 [place] [facility] 7 7 [facility] T NEW 10 INC MINUTES [facility] [place] [facility] 7 [facility] INC T OFFICE 25214 [place] [facility] 7 7 [place] T VISIT INTERNAL 25 MED MINUTES [facility] 85828 [place] [facility] OUTPATI[facility] 7 7 T VISIT 25 MINUTES [facility] [place] [facility] 7 7 [facility] INC T EMERGENCY 25884 [place] 7 7 [facility] T VISIT LIMITED/M INOR PROB EMERGENCY 83634 [place] 7 7 [facility] T VISIT LOW/MODER SEVERITY [facility] [place] [facility] 7 7 [facility] INC T EMERGENCY 00961 [place] [facility] T [facility]ISIT LIMITED/M INOR PROB [facility] [place] - 7 7 [facility] OUTPATIEN INC T EMERGENCY 18029 SMILEY PASCUAL 7 7 PHYSICIAN [facility] Barry [facility] T VISIT MODERATE [facility]VERITY [facility] 7 7 [facility] 7 7 [facility]ALTH OUTPATIEN [facility] EMERGENCY 97084 SMILEY SOTOMAYOR, 6 6 PHYSICIAN [facility] T VISIT HIGH/URGE NT SEVERITY [facility] [place] [facility] 6 6 [facility] T OFFICE 36572 [facility] [facility] [place] [facility] INTERNAL 15 MED MINUTES [facility] [place] [facility] 6 6 [facility] OUTPATIEN [facility] T EMERGENCY 64650 [place] [facility] T VISIT MODERATE SEVERITY EMERGENCY 04834 SMILEY JAQUEZ 6 6 PHYSICIAN [facility] Barry [facility] T VISIT HIGH/URGE NT SEVERITY EMERGENCY 34254 SMILEY ARMIJO 6 6 PHYSICIAN [facility] T VISIT MODERATE SEVERITY EMERGENCY 60700 [place] [facility] VISIT LOW/MODER SEVERITY [facility] [place] [facility] 6 6 [facility] T EMERGENCY 03262 SMILEY PASCUAL 6 6 PHYSICIAN [facility] Barry [facility] T VISIT MODERATE SEVERITY OFFICE 05454 SCIFRES SCIFRES OUTPATIEN 6 6 ANG ANG T VISIT 10 MINUTES OFFICE 96962 [place] ARSLAN OUTPATIEN 6 6 [facility] OF[facility] T VISIT INTERNAL 15 MED MINUTES OFFICE 66625 WENDY SANCHEZ MICHELLE OUTPATIEN 6 6 T VISIT BARIATRIC 25 SURGICAL MINUTES [facility] [place] [facility] INC T EMERGENCY 21752 SMILEY SOTOMAYOR, 6 6 PHYSICIAN JR BILLINGS [facility] S, [facility] T VISIT HIGH/URGE NT SEVERITY EMERGENCY 47449 [place] 6 6 [facility] DEPARTMEN INC T VISIT LOW/MODER SEVERITY EMERGENCY 41399 SMILEY PASCUAL 6 6 PHYSICIAN BRYCE [facility] S, [facility] T VISIT MODERATE SEVERITY OFFICE 78586 [facility] FALLUJI OUTPATIEN 6 6 [facility] T VISIT MEDICAL 15 G MINUTES [facility] [place] [facility] T OFFICE 26725 [facility] HUMPHREY OUTPATIEN 6 6 PHYSICIAN MEAGAN T VISIT S GROUP 15 MINUTES OFFICE 91704 [facility] ISSA OUTPATIEN 6 6 PHYSICIAN JARON T VISIT S GROUP 10 MINUTES [facility] [place] [facility] T [facility] [place] [facility] [place] [facility] INC T EMERGENCY 50033 [place] 6 6 [facility] DEPARTMEN INC T VISIT MODERATE SEVERITY OFFICE 42183 [facility] ISSA OUTPATIEN 6 6 PHYSICIAN JARON T VISIT S GROUP 10 MINUTES OFFICE 86349 BAPTISMPHANI ANDRES OUTPATIEN 6 6 [facility] IV HEN T VISIT MEDICAL 15 GROUP MINUTES OFFICE 47049 [place] CARTAGENAONE OUTPATIEN 6 6 [facility] T VISIT HOSPITAL 10 P MINUTES OFFICE 23612 [facility] R[facility]IG[facility] TRI OUTPATIEN 6 6 GROUND T VISIT FAMILY 25 CLINI MINUTES OFFICE 87527 [facility] T VISIT 5 HLTH DEPT HLTH DEPT MINUTES JAZZ [facility] EMERGENCY 50500 SMILEY ARMIJO 6 6 PHYSICIAN TAQUERIA DALE T VISIT HIGH/URGE NT SEVERITY EMERGENCY 82308 [place] 6 6 [facility] DEPART[facility] INC T VISIT LOW/MODER SEVERITY [facility] [place] [facility] T OFFICE 34417 [facility] T VISIT HLTH DEPT HLTH DEPT 15 JAZZ [facility] [place] [facility] 6 6 [facility] OUTPATIEN INC T OFFICE 16565 [facility] KIMBERLY OUTPATIEN 6 6 PHYSICIAN MAT T VISIT S GROUP 25 MINUTES OFFICE 19038 WENDY SANCHEZ OUTPATIEN 6 6 T VISIT BARIATRIC 25 SURGICAL MINUTES OFFICE 83877 [facility] PHYSICIAN JULIUS Ng NEW 45 S GROUP MINUTES EMERGENCY 06554 SMILEY PASCUAL 6 6 PHYSICIAN TAQUERIA WHEELER T VISIT MODERATE SEVERITY EMERGENCY 35406 SMILEY JIMENEZ 6 6 PHYSICIAN TAQUERIA HAWK T VISIT HIGH/URGE NT SEVERITY [facility] [place] - 6 6 [facility] OUTPATIEN INC T OFFICE 94230 ALLERGY ROSENTHAL MAR OUTPATIEN 6 6 PARTNERS T VISIT OF [place] 40 CO MINUTES [facility] [place] [facility] 6 6 [facility] OUTPATIEN INC T EMERGENCY 12322 SMILEY PASCUAL 6 6 PHYSICIAN TAQUERIA WHEELER T VISIT MODERATE SEVERITY EMERGENCY 82426 [place] 6 6 [facility] DEPARTMEN INC T VISIT LOW/MODER SEVERITY OFFICE 33887 [facility] OUT[facility] 6 6 N T VISIT NEUROLOGY 10 MINUTES [facility] [place] - 6 6 [facility] OUTPATIEN INC T EMERGENCY 50607 SMILEY SOTOMAYOR, 6 6 PHYSICIAN JR MANUELITO FUENTESMEN S, PLLC T VISIT MODERATE SEVERITY [facility] [place] - 6 6 [facility] OUTPATIEN INC T EMERGENCY 16916 SMILEY PASCUAL DEPT 6 6 PHYSICIAN BRYCE VISIT S, PLLC HIGH SEVERITY& THREAT FUNCJ OFFICE 53225 [place] CELI OUTPATI [address] [facility] VISIT HOSPITAL 10 P MINUTES EMERGENCY 03223 SMILEY SOTOMAYOR 6 6 PHYSICIAN JR BILLINGS DEPARTMEN S, PLLC T VISIT HIGH/URGE NT SEVERITY [facility] [place] [facility] 6 6 [facility] OUTPATIEN [facility] T EMERGENCY 37736 [place] 6 6 [facility] DEPARTMEN INC T VISIT MODERATE SEVERITY OFFICE 22517 [place] WEISS JR OUTPATIEN 6 6 [facility] T VISIT HOSPITAL 10 P MINUTES EMERGENCY 72321 SMILEY PASCUAL DEPT 6 6 PHYSICIAN BRYCE VISIT S, PLLC HIGH SEVERITY& THREAT FUNCJ OFFICE 51212 ALLERGY ROSENTHAL MAR CONSULTAT 6 6 PART[facility]ERS [facility] [place] NEW/ESTAB CO PATIENT 60 MIN EMERGENCY 65263 SMILEY PASCUAL 6 6 PHYSICIAN BRYCE DEPARTMEN S, PLLC T VISIT MODERATE SEVERITY EMERGENCY 81765 SMILEY PASCUAL DEPT 6 6 PHYSICIAN BRYCE VISIT S, PLLC HIGH SEVERITY& THREAT FUNCJ EMERGENCY 17469 SMILEY HUNT 6 6 PHYSICIAN DEPARTMEN S, PLLC T VISIT LOW/MODER SEVERITY OFFICE 83463 [facility] OUTPATIEN 6 6 PHYSICIAN T VISIT S GROUP 25 MINUTES [facility] [place] [facility] 6 6 [facility] OUTPATIEN INC T EMERGENCY 36265 SMILEY PASCUAL 6 6 PHYSICIAN BRYCE DEPARTMEN S, PLLC T VISIT MODERATE SEVERITY EMERGENCY 43087 [place] 6 6 [facility] DEPARTMEN INC T VISIT LOW/MODER SEVERITY [facility] [place] [facility] 6 6 [facility] OUTPATIEN INC T [facility] - 6 6 N OUTPATIEN COMMUNTIY T HOSPITA EMERGENCY 65666 SMILEY ARMIJO DEPT 6 6 PHYSICIAN CASANDRA VISIT S, PLLC HIGH SEVERITY& THREAT FUNCJ OFFICE 79583 [facility] OUTPATIEN 6 6 PHYSICIAN JARON T NEW 20 S GROUP MINUTES EMERGENCY 89054 SMILEY PASCUAL 6 6 PHYSICIAN BRYCE DEPARTMEN S, PLLC T VISIT HIGH/URGE NT SEVERITY [facility]OSPITAL [facility] - 6 6 N OUTPATIEN COMMUNTIY HOSPITA OFFICE 70620 [facility] 6 6 T VISIT BARIATRIC 25 SURGICAL MINUTES EMERGENCY 33930 SMILEY PASCUAL DEPT 6 6 PHYSICIAN BRYCE VISIT S, PLLC HIGH SEVERITY& THREAT FUNJ EMERGENCY 10166 [facility] 6 6 EMERGENCY HOW DEPARTMEN PHYS PSC T VISIT MODERATE SEVERITY [facility] - 6 6 HEALTH OUTPATIEN [facility] [place] - 6 6 [facility] OUTPATIEN INC T EMERGENCY 57761 SMILEY BAGLEY DEPT 6 6 PHYSICIAN FOR VISIT S, PLLC HIGH SEVERITY& THREAT FUNCJ EMERGENCY 31973 [place] 6 6 [facility] DEPARTMEN INC T VISIT LOW/MODER SEVERITY [facility] [place] [facility] 6 6 [facility] OUTPATIEN INC T EMERGENCY 80080 SMILEY PASCUAL 6 6 PHYSICIAN BRYCE DEPARTMEN S, PLLC T VISIT HIGH/URGE NT SEVERITY EMERGENCY 27669 SMILEY SUGGS [facility] 6 6 PHYSICIAN DEPARTMEN S, PLLC T VISIT HIGH/URGE NT SEVERITY HOSPITAL [facility] - 6 6 [facility] 94079 [facility] 6 6 ROSAL[place] JOSE ANGEL DEPARTMEN EMERGENCY T VISIT PHYS HIGH/URGE NT SEVERITY [facility] [place] - 6 6 [facility] OUTPATIEN INC T EMERGENCY 42006 [place] DEPT 6 6 [facility] VISIT INC HIGH SEVERITY& THREAT FUNCJ OFFICE 72243 [facility] CONSULTAT 6 6 N ION NEUROLOGY NEW/ESTAB PATIENT 60 MIN OFFICE 61595 [facility] OUTPATIEN 6 6 MATTI MATTI T NEW 30 MINUTES OFFICE 37046 SCALF LEI SCALF LEI OUTPATIEN 6 6 T VISIT 25 MINUTES EMERGENCY 48217 [facility] DEPT 6 6 PHYSICIAN BRYCE VISIT S, PLLC HIGH SEVERITY& THREAT FUNCJ OFFICE 80263 [place] ARSLAN OUTPATIEN 6 6 [facility] T VISIT INTERNAL 15 MED MINUTES [facility] - 6 6 HEALTH OUTPATIEN [facility] [place] - 6 6 [facility] OUTPATIEN INC T EMERGENCY 27508 [facility] DEPT 6 6 PHYSICIAN BRYCE VISIT S, PLLC HIGH SEVERITY& THREAT FUNCJ OFFICE 72511 BAPTISM BOLIEK OUTPATIEN 6 6 HEALTH KADIE T VISIT MEDICAL 15 GROUP MINUTES OFFICE 12971 [facility] SANCHEZ MICHELLE OUTPATIEN 6 6 T VISIT BARIATRIC 25 SURGICAL MINUTES [facility] [place] [facility] 6 6 [facility] OUTPATIEN INC T OFFICE 52786 [place] ARSL[facility] OUTPATIEN 6 6 VALLEY OFEILA T VISIT INTERNAL 15 MED MINUTES INITIAL 74854 [facility] PREVENTIV 6 6 PHYSICIAN E S GROUP MEDICINE NEW PATIENT 40-64YRS OFFICE 86042 BAPTISMPHANI [facility] OUTPATIEN 6 6 PRIMARY KADIE T VISIT CARE OF 15 ABISAI [facility] [place] - 6 6 [facility] OUTPATIEN INC T OFFICE 58492 [place] ARSLAN OUTPATIEN 6 6 [place] OFELIA T VISIT INTERNAL 15 MED [facility] [place] - 6 6 [facility] OUTPATIEN INC T OFFICE 38024 WENDY SANCHEZ MICHELLE OUTPATIEN 5 5 T VISIT BARIATRIC 25 SURGICAL MINUTES OFFICE 97667 ATKINS ATKINS OUTPATIEN 5 5 TRA TRA T VISIT 25 MINUTES PERIODIC 30826 [facility] E MED EST HLTH DEPT HL DEPT PATIENT JAZZ JAZZ 40-64YRS OFFICE 63711 WENDY SANCHEZ MICHELLE OUTPATIEN 5 5 T VISIT BARIATRIC 15 SURGICAL [facility] [place] - 5 5 [facility] OUTPATIEN INC T OFFICE 07550 [place] ARSL[facility] OUTPATIEN 5 5 VAL[facility] OFELIA T NEW 30 INTERNAL MINUTES [facility] [place] - 5 5 [facility] OUTPATIEN INC T OFFICE 05883 [facility] PETTEY OUTPATIEN 5 5 PHYSICIAN JAM T VISIT S GROUP 15 MINUTES OFFICE 93952 GASTROENT CASE JUS OUTPATIEN 5 5 EROLOGY T VISIT AND 15 HEPATOL MINUTES OFFICE 20547 [facility] OUTPATIEN 5 5 HEALTH KADEI T VISIT MEDICAL 10 GROUP [facility] [place] - 5 5 N OUTPATIEN COMMUNTIY T [facility]OS[facility] [place] - 5 5 [facility] OUTPATIEN INC T EMERGENCY 36992 [place] 5 5 [facility] HIGH[facility]URGE NT SEVERITY [facility] [place] - 5 5 N OUTPATIEN COMMUNTIY [facility] [place] - 5 5 [facility] OUTPATIEN INC T OFFICE 37226 GASTROENT CASE JUS OUTPATIEN 5 5 EROLOGY T NEW 45 AND MINUTES HEPATOL EMERGENCY 61119 [place] 5 5 [facility] VISIT LOW/MODER SEVERITY [facility] [place] - 5 5 [facility] OUTPATIEN [facility] T OFFICE 46443 DANIEL SANCHEZ OUTPATIEN 5 5 HUBER HUBER T VISIT 15 MINUTES EMERGENCY 96758 [place] SOTOMAYOR, 5 5 [facility] T VISIT P MODERATE SEVERITY [facility] [place] - 5 5 [facility] OUTPATIEN [facility] N OUTPATIEN COMMUN[facility] 5 N OUTPATIEN [facility] 5 5 [facility] [place] [facility] 5 [facility] OUTPATIEN INC T OFFICE 01163 WENDY MARTINEZ OUTPATIEN 5 5 T VISIT BARIATRIC 40 SURGICAL MINUTES OFFICE 93141 DANIEL SANCHEZ OUTPATIEN 5 5 HUBER HUBER T VISIT 15 MINUTES [facility] [place] - 5 5 [facility] OUTPAT[facility]EN [facility] T EMERGENCY 98432 [place] 5 5 [facility] VISIT LOW/MODER SEVERITY [facility] [place] - 5 5 [facility] OUTPATIEN [facility] 5 5 N OUTPATIEN COMMUNTIY [facility] [place] [facility] 5 5 [facility]PATIEN INC T [facility] [place] - 5 5 [facility] OUTPATIEN INC T OFFICE 05172 [place] ALATORRE OUTPATIEN [address] MINUTES P OFFICE 24440 MELANEI NOGUEIRA OUTPATIEN 5 5 MEDICAL JAM T VISIT SERV 15 FOUNDATIO MINUTES N OFFICE 40117 [place] WEISS JR OUTPATIEN [address] MINUTES P OFFICE 40534 [facility] PETTEMago OUTPATIEN 5 5 PHYSICIAN JAM [facility] S GROUP MINUTES OFFICE 39894 [facility] CON[facility] 5 5 [facility] MEDICAL NEW/ESTAB G PATIENT 60 MIN OFFICE 53272 DANIEL CHAND 5 5 HUBER HUBER T VISIT 15 MINUTES EMERGENCY 81778 [place] 5 5 [facility] T VISIT HIGH/URGE NT SEVERITY EMERGENCY 05397 [place] ESCOTO 5 5 [facility] T VISIT P MODERATE SEVERITY [facility] [place] - 5 5 [facility] OUTPATIEN INC [facility] [place] - 5 5 [facility] OUTPATIEN INC T EMERGENCY 51882 [place] 5 5 [facility] T VISIT HIGH/URGE NT SEVERITY OFFICE 49203 DANIEL CHAND 5 5 HUBER HUBER T VISIT 15 MINUTES OFFICE 20427 DANIEL CHAND 4 4 HUBER HUBER T VISIT 15 MINUTES [facility] [place] 4 [facility] OUTPATIEN INC T EMERGENCY 26579 [place] WINTERS 4 4 [facility] T VISIT P LOW/MODER SEVERITY OFFICE 55605 DANIEL CHAND 4 4 HUBER HUBER T VISIT 15 MINUTES [facility] [place] - 4 4 [facility] OUTPATIEN INC T EMERGENCY 81479 CHRIS PALACIO DEPT 4 4 ROSAL[place] VISIT EMERGENCY HIGH PHYS SEVERITY& THREAT [facility] N OUTPATIEN [facility] T HOSPITA OFFICE 10848 DANIEL CHAND 4 4 HUBER HUBER T VISIT 15 MINUTES OFFICE 94875 MONALISA [facility] CONSULTAT 4 4 KADIE ION CARDIOLOG NEW/ESTAB Y AT CENT PATIENT 40 MIN [facility] [place] [facility] 4 4 [facility] T OFFICE 56571 [place] NOGUEIRA CONSULTAT 4 4 MEDICAL JAM ION SERV NEW/ESTAB FOUNDATIO PATIENT N 60 MIN [facility] [place] - 4 4 [facility] T OFFICE 09555 DANIEL CHAND 4 4 HUBER HUBER T VISIT 15 MINUTES OFFICE 16994 ATKINS ATKINS CONSULTAT 4 4 TRA TRA ION NEW/ESTAB PATIENT 40 MIN OFFICE 26271 [facility] N[facility] T VISIT MEDICAL 15 G MINUTES [facility] [place] - 4 4 [facility] OUTPATIEN INC T OFFICE 01135 [facility] F[facility] OUTPATIEN 4 4 [facility]ALTH NACHO T NEW 30 MEDICAL MINUTES G EMERGENCY 16141 CHRIS LEAHY DEPT 4 4 ROSALEE MOH VISIT EMERGENCY HIGH PHYSI SEVERITY& THREAT [facility] [place] - 4 4 [facility] OUTPATIEN INC T EMERGENCY 29706 HORTENCIA HUGHES DEPT 4 4 VISIT HIGH SEVERITY& THREAT FUN EMERGENCY 54730 [place] 4 4 [facility] DEPARTMEN INC T VISIT MODERATE SEVERITY EMERGENCY 98851 ANKUR PASCUAL DEPT 4 4 BRYCE BRYCE VISIT HIGH SEVERITY& THREAT FUNCJ EMERGENCY 64936 [place] 4 4 [facility] DEPART[facility] INC T VISIT HIGH/URGE NT SEVERITY OFFICE 95054 DANIEL CHAND 4 4 HUBER HUBER T VISIT 15 MINUTES [facility] [place] [facility] 4 [facility] OUTPATIEN INC T OFFICE 22066 SANCHEZ MICHELLE SANCHEZ MICHELLE CONSULTAT 4 4 ION NEW/ESTAB PATIENT 80 MIN OFFICE 69202 DANIEL CHAND 4 4 HUBER HUBER T NEW 30 MINUTES [facility] [place] [facility] 4 [facility] OUTPATIEN INC T OFFICE 04043 MAEGAN CHAND 4 4 JARON JARON T VISIT 5 MINUTES OFFICE 96750 MAEGAN CHAND 4 4 JARON JARON T NEW 30 MINUTES Emergency PATRIC Burnett MD (ER) 4 16:35 4 17:31 [facility] Emergency PATRIC BURNETT (ER) 3 16:45 3 18:19 [facility] EMERGENCY 86698 KIMBERLEE PASCUAL, 9 9 [facility] T VISIT ON HIGH/URGE NT SEVERITY EMERGENCY 08496 [place] 9 9 [facility] DEPARTMEN INC T VISIT LOW/MODER SEVERITY [facility] [place] - 9 9 [facility] OUTPATIEN INC T
--- OUTSIDE RECORDS SUMMARY | 2017-07-08 21:18 | External Medical Summary Rpt ---
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 Name Role Phone ALFARIS MOH, ALFARIS Unavailable Unavailable MOH [facility] Unavailable [place]available [place], [facility] [place] YVETTE JURADO MD, PSC, Unavailable Unavailable YVETTE JURADO MD, PSC ARNOLD HUBER, ARNOLD Unavailable Unavailable HUBER ARNOLD HUBER, ARNOLD Unavailable Unavailable HUBER ATKINS TRA, ATKINS Unavailable Unavailable TRA ATKINS TRA, ATKINS Unavailable Unavailable TRA [facility] Un[facility] Unavailable [facility] Unavailable Unavailable MEDICAL GROUP, [facility] Un[facility] Un[facility], [facility] Unavailable Unavailable [facility], [facility] BEFARIDAKE, BEINEKE Unavailable Unavailable BEINEKE CARMEN, BEINEKE Unavailable Unavailable CARMEN DUMONT HOW, DUMONT Unavailable Unavailable HOW BESSON, BESSON Unavailable Unavailable BESSON DOMINIQUE, BESSON Unavailable Unavailable DOMINIQUE [facility] Unavailable Unavailable [facility], [facility] BOLIEK KADIE, BOLIEK Unavailable Unavailable KADIE CERRATO, CERRATO Unavailable Unavailable CERRATO ALL, CERRATO ALL Unavailable Unavailable [facility] Unavailable Unavailable [facility] Unavailable Unavailable SERVICE, [facility]available Unavailable SERVICE, [facility] SVITLANA KILO, SVITLANA Unavailable [...] Unavailable Unavailable HOSPITA, [facility] Unavailable Unavailable HOSPITA, [facility] RODRIGUEZ TRI, RODRIGUEZ TRI Unavailable Unavailable ANDREWS RHO, ANDREWS Unavailable Unavailable R[facility] Unavailable Unavailable CENTER, [facility] Unavailable Unavailable INC, [facility] Unavailable Unavailable HOSPITAL P, [facility] BOYER CHRISTEL, BOYER CHRISTEL Unavailable Unavailable BOYER CHRISTEL, BOYER CHRISTEL Unavailable Unavailable [facility], Unavailable Unavailable [facility] JAQUEZ, JAQUEZ Unavailable Unavailable VAUGHN TERA, VAUGHN Unavailable Unavailable BRYAN LONDONO Unavailable Unavailable ILUYOMADE ROT, Unavailable Unavailable ILUYOMADE ROT FELICIA DUARTE Unavailable Unavailable [facility] Unavailable Unavailable GROUP PS, [facility] Un[facility] Un[facility], [facility] Unavailable Unavailable MEDICAL G, [facility] ELYSSA BURNETT, Unavailable Unavailable ELYSSA [...] JR [facility] Unavailable Unavailable SPECIALISTS,, [facility], [facility] Unavailable Unavailable INTERNAL MED, [facility] INTER[facility] MED BRITTNY, BRITTNY Unavailable Unavailable BRITTNY ANT, BRITTNY ANT Unavailable Unavailable NAJERA, NAJERA Unavailable Unavailable LUKING, LUKING Unavailable Unavailable LUKING, LUKING Unavailable Unavailable LUKING MATTI, LUKING Unavailable Unavailable MATTI TOD, TOD Unavailable Unavailable CHRIS, CHRIS Unavailable Unavailable VIANEY PAULETTE, VIANEY Unavailable Unavailable PAULETTE NOGUIERA, NOGUEIRA Unavailable Unavailable NOGUEIRA JAM, Unavailable Unavailable [...] KIMBERLY Unavailable Unavailable KIMBERLY MAT, Unavailable Unavailable IKMBERLY MAT BENSON, BENSON Unavailable Unavailable BENSON JOSE [...] #591 W[facility] FOR, WALKER Unavailable Unavailable FOR [facility] Unavailable Unavailable DEPT [facility], [facility] DEPT [facility] Unavailable Unavailable DEPT JAZZ, [facility] SANCHEZ, SANCHEZ Unavailable Unavailable SANCHEZ MICHELLE, SANCHEZ MICHELLE Unavailable Unavailable WELLS ELLEN, WELLS ELLEN Unavailable Unavailable WELLS SHA, WELLS SHA Unavailable Unavailable ROSENTHAL MAR, ROSENTHAL MAR Unavailable Unavailable SARAH KADIE, SARAH KADIE Unavailable Unavailable Purpose Continuity of Care Document - 01-04-2009 through 2016 Problems Code Diagnosis DOS Provider Status R079 CHEST PAIN 06-04-2017 [facility] UNSPECIFIED [facility] INTERNAL MED [id number] UNS ADVERS 06-01-2017 [facility] EFFECT PHYSICIANS, DRUG/MEDICA PLLC MENT INITIAL ENCNTR K219 GASTRO-ESOP 05-19-2017 [facility] SURG DISEASE CTR WITHOUT ESOPHAGITIS R1310 DYSPHAGIA 05-19-2017 [facility] UNSPECIFIED PHYS SURG CTR Z9884 BARIATRIC 05-19-2017 [facility] SUR[facility]ERY [facility] SURG STATUS CTR J069 ACUTE UPPER 05-05-2017 [facility] RESPIRATORY INC INFECTION UNSPECIFIED R072 PRECORDIAL 05-05-2017 [facility] , E785 HYPERLIPIDE 05-04-2017 [facility] P R0789 OTHER CHEST 05-04-2017 [facility] Z809 FAMILY 05-04-2017 [place] HISTORY OF [facility] MALIGNANT INC NEOPLASM UNSPECIFIED Z8249 FAMILY HX 05-04-2017 [place] ISCHEMIC [facility] HRT DZ [facility] P DZ CIRC SYSTEM Z833 FAMILY 05-04-2017 [place] HISTORY OF [facility] P MELLITUS Y62115 ENCOUNTER 04-30-2017 [facility] AL CARIOVASCUL AR EXAM X30483 ENCOUNTER 04-30-2017 [facility] AL LABORATORY EXAM B977 PAPILLOMAVI 04-29-2017 [facility] OF DZ CLASSIFIED ELSEWHERE E7800 PURE 04-29-2017 [facility] HYPERCHOLES VALLEY TEROLEMIA INTERNAL UNSPECIFIED MED J309 ALLERGIC 04-29-2017 [facility] RHINITIS VALLEY UNSPECIFIED INTERNAL MED M797 FIBROMYALGI 04-29-2017 [facility] A VALLEY INTERNAL MED N870 MILD 04-29-2017 [facility], CERVICAL LLC DYSPLASIA B16845 ATYP SQ 04-29-2017 [facility] CELLS UNDET PHYSICIANS GROUP SIGNIFICANC E CYTOL SMER CERV X56299 CERV HIGH 04-29-2017 [facility] RSK HUMAN PHYSICIANS PAPILLOMAVI GROUP RAJ DNA TEST POS 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 P UNSPECIFIED K449 DIAPHRAGMAT 04-08-2017 [facility] IC [facility] W/O MEDICAL OBSTRUCTION GROUP OR GANGRENE R110 NAUSEA 04-08-2017 [facility] MEDICAL [facility] R1319 OTHER 04-08-2017 [facility] DYSPHAGIA [facility] [id number] SPONDYLOSIS 04-07-2017 YVETTE JURADO, W/O , PSC MYELOPATH/R ADICULOPATH Y LUMB RGN M479 SPONDYLOSIS 04-07-2017 [facility] UNSPECIFIED INC 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-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, PSC RAL DISC DEGEN LUMBAR REGION R202 PARESTHESIA 04-07-2017 [place] OF SKIN PETROLEUM INTERNAL MED J320 CHRONIC 04-02-2017 [place] MAXILLARY [facility] SINUSITIS INC R350 FREQUENCY 03-27-2017 [facility] MICTURITION [facility] P R3915 URGENCY OF 03-27-2017 [place] URINATION [facility] P R200 ANESTHESIA 03-25-2017 [facility] SKIN MEDICAL IMAGING ASS R42 DIZZINESS 03-25-2017 [facility] MEDICAL GIDDINESS IMAGING ASS R51 HEADACHE 03-25-2017 [facility] INC D709 NEUTROPENIA 03-24-2017 [facility] P [id number] ADVERSE EFF 03-22-2017 [facility] PHYSICIANS, GLUCOCORTIC PLLC DS SYNTH ANALOG INIT ENC [id number] ADVERS EFF 03-22-2017 [place] OT RX MEDS [facility] BIO INC SUBSTANCES INIT ENC Z69586 OTHER 03-21-2017 [place] SPONDYLOSIS [facility] LUMBAR INC REGION M5116 INTERVERTEB 03-21-2017 [place] RAL DISC [facility] D/O INC W/RADICULOP ATHY LUMB RGN K41225 ENCOUNTER 03-19-2017 [facility], LOAN SERVICES PROFESSIONAL EXAM LLC GENERAL RTN W/ABNORMAL FIND D69496 ENCOUNTER 03-19-2017 [facility] LOAN SERVICES PROFESSIONAL EXAM PHYSICIANS GENERAL RTN GROUP W/O ABNORMAL FIND H6982 OTHER SPEC 03-13-2017 [facility] DISORDERS PHYSICIANS EUSTACHIAN GROUP TUBE LT EAR 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[facility] UNI LT EAR PHYSICIANS UNRESTIRCT GROUP CONTRALAT SIDE R300 DYSURIA 03-12-2017 [facility] SHERIFF, PLLC M4726 OT 03-03-2017 [place] SPONDYLOSIS [facility] INC W/RADICULOP ATHY LUMBAR REGION N390 URINARY 03-03-2017 [place] TRACT [facility] INFECTION INC SITE NOT SPECIFIED R911 SOLITARY 02-27-2017 [place] PULMONARY MEDICAL NODULE IMAGING ASS Z09 ENC F/U 02-27-2017 [place] EXAM AFTR MEDICAL CMPL TX OTH IMAGING ASS THAN MALIG NEOPLSM E669 OBESITY 02-25-2017 [facility] UNSPECIFIED PHYSICIANS GROUP I119 HYPERTENSIV 02-25-2017 [facility] E HEART PHYSICIANS DISEASE GROUP WITHOUT HEART FAILURE R0600 DYSPNEA 02-25-2017 [facility] UNSPECIFIED PHYSICIANS GROUP [id number] PAIN IN 02-18-2017 [place] LEFT [facility] SHOULDER INC M5440 LUMBAGO 02-18-2017 [place] WITH [facility] SCIATICA INC UNSPECIFIED SIDE J310 CHRONIC 02-17-2017 [facility] RHINITIS PHYSICIANS GROUP J329 CHRONIC 02-17-2017 [facility] SINUSITIS PHYSICIANS UNSPECIFIED GROUP J342 DEVIATED 02-17-2017 [facility] NASAL PHYSICIANS SEPTUM GROUP M5416 RADICULOPAT 02-17-2017 [place] HY LUMBAR [facility] REGION INC M545 LOW BACK 02-17-2017 YVETTE JURADO, PAIN , PSC K5900 CONSTIPATIO 02-14-2017 [facility] MEDICAL UNSPECIFIED IMAGING ASS I998 OTHER 02-11-2017 [place] DISORDER OF [facility] INC CIRCULATORY SYSTEM R0602 SHORTNESS 02-11-2017 [place] OF BREATH [facility] INC G8929 OTHER 02-10-2017 [place] CHRONIC [facility]LEY PAIN INTERNAL MED R002 PALPITATION 01-31-2017 [facility] S PHYSICIANS GROUP R5383 OTHER 01-31-2017 [facility] FATIGUE PHYSICIANS GROUP M792 NEURALGIA 01-27-2017 [place] AND VALLEY NEURITIS INTERNAL UNSPECIFIED MED I10 ESSENTIAL 01-26-2017 [place] PRIMARY [facility] HYPERTENSIO INC N M542 CERVICALGIA 01-26-2017 [facility] INC R02006 SPONDYLOSIS 01-22-2017 [place] W/O MEDICAL MYELOPATH/R IMAGING ASS ADICULOPATH Y CERV RGN [id number] STRAIN 01-22-2017 [facility] MUSCLE FASC PHYSICIANS, & TENDON PLLC NECK LEVL INIT ENC E559 VITAMIN D 01-21-2017 [place] DEFICIENCY [facility] UNSPECIFIED INC R61207H STRAIN 01-16-2017 [facility] MUSCLE & PHYSICIANS, TENDON UNS PLL WALL THORAX INIT ENC Y51585 OTHER LONG 01-11-2017 [facility] DRUG THERAPY Z882 ALLERGY 01-11-2017 [place] STATUS TO [facility] S STATUS Z886 ALLERGY 01-11-2017 [place] ANAL[facility]ESIC [facility] AGENT STATUS Z888 ALLERGY 01-11-2017 [place] STATUS OTH [facility]ITY RX MEDS & HOSPITAL BIOLOG [facility] STS H9203 OTALGIA 01-10-2017 [place] BILATERAL [facility] INC I209 ANGINA 01-10-2017 [facility] PECTORIS [facility] UNSPECIFIED INC R071 CHEST PAIN 01-07-2017 [place] ON [facility] INTERNAL MED Z720 TOBACCO USE 01-04-2017 [facility] INC G73258 MUSCLE 12-25-2016 [facility] SPASM OF [facility] BACK INC R1013 EPIGASTRIC 12-25-2016 [place] PAIN PETROLEUM INTERNAL MED R4702 DYSPHASIA 12-25-2016 [place] PETROLEUM INTERNAL MED B078 OTHER VIRAL 12-23-2016 [facility] WARTS K30 FUNCTIONAL 12-23-2016 [facility] L218 OTHER 12-23-2016 [facility] SEBORRHEIC DERMATITIS L538 OTHER 12-23-2016 [facility] SPECIFIED ERYTHEMATOU S CONDITIONS R208 OTHER 12-23-2016 [facility] DISTURBANCE S OF SKIN SENSATION R238 OTHER SKIN 12-23-2016 [facility] CHANGES K5903 DRUG 12-17-2016 [place] INDUCED [facility] CONSTIPATIO INC N [id number] ADVERSE 12-17-2016 [place] EFFECT [facility] OTHER INC OPIOIDS INITIAL ENCOUNTER K910 VOMITING 12-12-2016 [place] FOLLOWING [facility] GASTROINTES INC TINAL SURGERY R600 LOCALIZED 12-12-2016 [facility] EDEMA PHYSICIANS, [facility] R609 EDEMA 12-12-2016 [place] UNSPECIFIED [facility] HOS[facility] INC V06787 OTHER 12-12-2016 [place] SPECIFIED MEDICAL POSTPROCEDU IMAGING ASS [facility] STATES E6601 MORBID 12-11-2016 [facility] SEVERE HEALTH OBESITY DUE MONALISA TO EXCESS CALORIES N393 STRESS 12-11-2016 [facility] INCONTINENC HEALTH E [facility] MALE Z903 ACQUIRED 12-11-2016 [facility] ABSENCE OF HEALTH STOMACH MONALISA I44551 ENCOUNTER 12-05-2016 [facility] FOR OTHER HEALTH PREPROCEDUR MEDICAL AL GROUP EXAMINATION K210 GASTRO-ESOP 11-22-2016 [facility] HAGEAL PHYSICIANS, REFLUX PLLC DISEASE W/ ESOPHAGITIS K625 HEMORRHAGE 11-19-2016 [place] OF ANUS AND VALLEY RECTUM INTERNAL MED M546 PAIN IN 11-08-2016 [facility] THORACIC PHYSICIANS, SPINE PLLC T50449 PAIN IN 10-14-2016 [place] UNSPECIFIED MEDICAL HIP IMAGING ASS M533 SACROCOCCYG 10-14-2016 [place] EAL MEDICAL DISORDERS IMAGING ASS NEC A512URA CONTUSION 10-14-2016 [place] LOWER BACK PHYSICIANS, & PELVIS PLLC INITIAL ENCOUNTER I4267OW UNSPECIFIED 10-14-2016 [place] INJURY MEDICAL LOWER BACK IMAGING ASS INITIAL ENCOUNTER K8720JB UNSPECIFIED 10-14-2016 [place] INJURY OF MEDICAL PELVIS IMAGING ASS INITIAL ENCOUNTER H3581 RETINAL 10-11-2016 [facility] ANG EDEMA R040 EPISTAXIS 10-10-2016 [place] PETROLEUM INTERNAL MED E6609 OTHER 10-08-2016 [facility] OBESITY DUE BARIATRIC TO EXCESS SURGICAL CALORIES R109 UNSPECIFIED 10-08-2016 [facility] ABDOMINAL BARIATRIC PAIN SURGICAL J3489 OTHER 10-06-2016 [facility] SPECIFIED PHYSICIANS, DISORDERS PLLC NOSE AND NASAL SINUSES R05 COUGH 10-06-2016 [facility] [facility] R0981 NASAL 10-06-2016 [place] CONGESTION MEDICAL IMAGING ASS A6004 HERPESVIRAL 09-27-2016 [facility] PHYSICIANS VULVOVAGINI GROUP TIS N760 ACUTE 09-27-2016 [facility] VAGINITIS PHYSICIANS GROUP [id number] CONCUSSION 09-21-2016 [place] WITHOUT LOC [facility] INITIAL INC ENCOUNTER U2809LK UNSPECIFIED 09-21-2016 [place] INJURY OF MEDICAL HEAD IMAGING ASS INITIAL ENCOUNTER H6903 PATULOUS 09-19-2016 [facility] JARON EUSTACHIAN TUBE BILATERAL V19948 UNSPECIFIED 09-18-2016 [facility] PHYSICIANS OBSTRUCTION GROUP EUSTACHIAN TUBE BILAT R590 LOCALIZED 09-04-2016 [place] ENLARGED [facility] P Z6834 BODY MASS 09-04-2016 [facility] INDEX BMI HEALTH 34.0-34.9 MEDICAL ADULT GROUP K5909 OTHER 09-03-2016 [facility] CONSTIPATIO GROUND N FAMILY CLINI R112 NAUSEA WITH 09-03-2016 [facility] VOMITING GROUND UNSPECIFIED FAMILY CLINI R748 ABNORMAL 09-03-2016 [facility] LEVELS OF GROUND OTHER SERUM FAMILY ENZYMES CLINI Z111 ENCOUNTER 09-02-2016 [facility] DEPT RESPIRATORY JAZZ TUBERCULOSI S M549 DORSALGIA 09-01-2016 [facility] UNSPECIFIED PHYSICIANS, [facility] R197 DIARRHEA 09-01-2016 [facility] UNSPECIFIED PHYSICIANS, [facility] L15834C ADVERSE 09-01-2016 [place] EFFECT [facility] P SRI INITIAL ENCOUNTER K59982 UNS PLACE 09-01-2016 [facility] UNS NON [facility]ACE OF OCCUR EXT R195 OTHER FECAL 08-30-2016 [facility] HOSP ABNORMALITI INC ES Z202 CONTACT 08-30-2016 [facility] WITH DISTRICT EXPOSURE [facility] DEPT INFECT JAZZ SEXUAL MODE TRANSMS Z23 ENCOUNTER 08-30-2016 [facility] FOR DISTRICT IMMUNIZATIO [facility] DEPT N JAZZ R5381 OTHER 08-29-2016 [facility] MALAISE PHYSICIANS GROUP R9431 ABNORMAL 08-29-2016 [facility] ELECTROCARD PHYSICIANS IOGRAM GROUP J19729 LYMPHOCYTOP 08-21-2016 [facility] ENIA [facility] INC J3089 OTHER 08-21-2016 [facility] ALLERGIC [facility] RHINITIS [place] J4520 MILD 08-21-2016 [facility] INTERMITTEN PARTNERS OF T ASTHMA [place] UNCOMPLICAT ED Q618ANJ OTHER 08-21-2016 [facility] ADVERSE PARTNERS OF FOOD [place] REACTIONS NEC SUBSEQUENT ENC M791 MYALGIA 08-17-2016 [facility] PHYSICIANS, [facility] M898X9 OTHER 08-12-2016 [place] SPECIFIED MEDICAL DISORDERS IMAGING ASS BONE UNSPECIFIED SITE R599 ENLARGED 08-12-2016 [place] LYMPH [facility] INC UNSPECIFIED R1314 DYSPHAGIA 08-10-2016 [facility] PHARYNGOESO PHYSICIANS, PHAGEAL [facility] PHASE R5382 CHRONIC 08-07-2016 [place] FATIGUE [facility] UNSPECIFIED INC J301 ALLERGIC 08-05-2016 [facility] RHINITIS PARTNERS OF DUE TO [place] POLLEN J3081 ALLERG 08-05-2016 [facility] RHINITIS PARTNERS OF D/T ANIMAL [place] CAT DOG HAIR & DANDER R591 GENERALIZED 08-05-2016 [place] ENLARGED [facility] P I208 OTHER FORMS 08-02-2016 [facility] OF [facility] P B79391 PAIN IN 08-02-2016 [place] RIGHT KNEE MEDICAL IMAGING ASS R55 SYNCOPE AND 08-02-2016 [facility] COLLAPSE PHYSICIANS, PLLC B283YPH UNSPECIFIED 08-02-2016 [place] INJURY OF MEDICAL NECK IMAGING ASS INITIAL ENCOUNTER D1281IZ UNS INJURY 08-02-2016 [place] RT LOWER MEDICAL LEG INITIAL IMAGING ASS ENCOUNTER N281 CYST OF 08-01-2016 [facility] P R95046 OTHER 07-31-2016 [facility] EQUIPMENT INC R209 UNSPECIFIED 07-29-2016 [facility] PHYSICIANS, DISTURBANCE PLLC S OF SKIN SENSATION K589 IRRITABLE 07-24-2016 [facility] BOWEL PHYSICIANS SYNDROME GROUP WITHOUT DIARRHEA R102 PELVIC AND 07-24-2016 [facility] PERINEAL PHYSICIANS PAIN GROUP N831 CORPUS 07-22-2016 [facility] LUTEUM CYST PHYSICIANS GROUP N920 EXCESS & 07-22-2016 [facility] FREQUENT PHYSICIANS MENSTRUATIO GROUP N W/REGULAR CYCLE T43219F STRAIN UNS 07-22-2016 [facility] MUSCLE FASC PHYSICIANS, TEND THIGH PLLC RT INITIAL ENC Z7251 HIGH RISK 07-22-2016 [facility] R12 HEARTBURN 07-18-2016 [facility] H[facility]9 OTHER 07-17-2016 [facility] SPECIFIED PHYSICIANS DISORDERS GROUP OF EAR UNSPECIFIED EAR J302 OTHER 07-17-2016 [facility] SEASONAL PHYSICIANS ALLERGIC GROUP RHINITIS T4579VW LACERATION 07-13-2016 [facility] W/O FOREIGN PHYSICIANS, BODY SCALP PLLC INITIAL ENC L3246SW SPRAIN 07-13-2016 [facility] UNSPECIFIED PHYSICIANS, SITE LT PLLC KNEE INITIAL ENCNTR R6889 OTHER 07-10-2016 [facility] AND SIGNS E780 PURE 07-09-2016 [facility] HYPERCHOLES BARIATRIC TEROLEMIA SURGICAL E876 HYPOKALEMIA 07-09-2016 [facility] P Z1231 ENCOUNTER 07-08-2016 [place] SCREENING MEDICAL MAMMO MALIG IMAGING ASS NEOPLASM BREAST H6990 UNSPECIFIED 07-07-2016 [facility] TUBE PHYS PSC DISORDER UNS EAR H938X3 OTHER 07-07-2016 [facility] SPECIFIED HEALTH DISORDERS [place] OF EAR BILATERAL M5432 SCIATICA 07-07-2016 [facility] LEFT SIDE EMERGENCY PHYS PSC R1010 UPPER 07-05-2016 [facility] ABDOMINAL PHYSICIANS, PAIN PLLC UNSPECIFIED R1084 GENERALIZED 06-29-2016 [facility] ABDOMINAL PHYSICIANS, PAIN PLLC I880 NONSPECIFIC 06-27-2016 [facility] MESENTERIC PHYSICIANS, PLLC LYMPHADENIT IS R100 ACUTE 06-27-2016 [facility] ABDOMEN AMBULANCE SERVICE R1031 RIGHT LOWER 06-26-2016 [facility]ER[facility] PAIN PHYS Q57567 RIGHT LOWER 06-26-2016 [facility] ABDOMINAL HOSPITA TENDERNESS N200 CALCULUS OF 06-24-2016 [place] KIDNEY MEDICAL IMAGING ASS 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 06-11-2016 [...] EXPS TO NONIONIZING RAD R9439 ABNORMAL 04-08-2016 [facility] LR FUNCTION GROUP STUDY [...] VALLEY IES NOT INTERNAL ELSEWHERE MED CLASSIFIED 33063 UNSPECIFIED 07-11-2015 [facility] VIRAL WARTS 2167 [...] SKIN 7020 ACTINIC 07-11-2015 [facility] KERATOSIS 36673 INFLAMED 07-11-2015 [facility] SEBORRHEIC KERATOSIS V700 ROUTINE 06-27-2015 [facility] DEPT [email or web address] FACL 82123 MORBID 06-20-2015 [facility] OBESITY BARIATRIC SURGICAL 06937 PAIN IN 06-20-2015 [facility] JOINT, SITE [facility] UNSPECIFIED 7823 EDEMA 06-20-2015 [facility] 02587 OTHER 06-20-2015 [facility] DYSPNEA AND [facility] RESPIRATORY ABNORMALITI ES 7871 HEARTBURN 06-20-2015 [facility] 7904 NONSPEC 06-20-2015 [facility] ELEVATION BARIATRIC OF LEVELS SURGICAL OF TRANSAMINAS E/LDH V4586 BARIATRIC 06-20-2015 [facility] SURGERY BARIATRIC STATUS SURGICAL V7612 OTHER 06-19-2015 [place] SCREENING MEDICAL MAMMOGRAM IMAGING ASS 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 MED 2689 UNSPECIFIED 06-12-2015 [place] VITAMIN D [facility] DEFICIENCY INTERNAL MED 5718 OTHER 06-12-2015 [place] CHRONIC [facility]LEY NONALCOHOLI INTERNAL C LIVER MED DISEASE 7905 OTHER 06-12-2015 [place] NONSPECIFIC VALLEY ABNORMAL INTERNAL SERUM MED ENZYME LEVELS 23908 UNSPEC 05-09-2015 [facility] DISORDERS PHYSICIANS BURSAE&TEND GROUP ONS SHOULDER REGION 7262 OTHER 05-09-2015 [facility] AFFECTIONS PHYSICIANS OF SHOULDER GROUP [place] NEC 55362 OBESITY, 05-04-2015 [facility] UNSPECIFIED OLOGY AND HEPATOL 3674 PRESBYOPIA 04-28-2015 [place] 63924 CHEST PAIN 04-28-2015 [facility] UNSPECIFIED HEALTH MEDICAL GROUP 31548 ABDOMINAL 04-25-2015 [facility] PAIN, COMMUNTIY UNSPECIFIED HOSPITA SITE 4019 UNSPECIFIED 04-16-2015 [place] ESSENTIAL [facility] HYPERTENSIO INC N 5990 URINARY 04-16-2015 [facility] TRACT PHYSICIANS, INFECTION [facility] SITE NOT SPECIFIED 7948 NONSPECIFIC 04-16-2015 [facility] ABNORMAL [facility] RESULTS INC LIVR FUNCTION STUDY 5739 UNSPECIFIED 04-14-2015 [facility] [place] DISORDER RADIOLOGY OF LIVER 7906 OTHER 04-14-2015 [facility] BLOOD [facility]OSPITA CHEMISTRY 5939 UNSPECIFIED 04-06-2015 [place] [facility]ICAL OF KIDNEY IMAGING ASS AND URETER 7891 HEPATOMEGAL 04-06-2015 [facility] OLOGY AND HEPATOL V140 PERSONAL 04-05-2015 [place] HISTORY OF [facility] ALLERGY TO HOSPITAL P PENICILLIN 29449 ABDOMINAL 04-03-2015 [facility] PAIN, GENERALIZED 5758 OTHER 04-01-2015 [place] SPECIFIED [facility] DISORDER OF HOSPITAL P GALLBLADDER 61292 OTHER 04-01-2015 [facility] [place] [facility] DISORDER OF IMAGING ASS KIDNEY AND URETER 44889 ABDOMINAL 04-01-2015 [facility] RIGHT MEDICAL UPPER IMAGING ASS QUADRANT 62038 ABDOMINAL 04-01-2015 [place] PAIN, [facility] EPIGASTRIC [facility] P 7295 PAIN IN 03-29-2015 [facility] TISSUES OF HOSPITA LIMB V4589 OTHER 03-29-2015 [facility] POSTSURGICA [facility]TIY L STATUS HOSPITA OTHER 10715 OTHER 03-24-2015 [facility] MALAISE AND [facility] FATIGUE HOSPITA V6700 FOLLOW-UP 03-21-2015 [facility] [place] EXAMINATION RADIOLOGY FOLLOWING UNSPEC SURGERY 72944 ESOPHAGEAL 03-20-2015 [place] [facility] PS 6256 FEMALE 03-20-2015 [facility] STRESS [facility] INCONTINENC HOSPITA E 72763 PAIN IN 03-20-2015 [facility] JOINT, BARIATRIC MULTIPLE SURGICAL SITES 03152 DIASTASIS 03-20-2015 [facility] OF [facility]CLE [facility] HOSPITA 7892 SPLENOMEGAL 03-20-2015 [facility] Y COMMUNTIY HOSPITA V8543 BODY MASS 03-20-2015 [facility] INDEX COMMUNTIY 50.0-59.9 HOSPITA ADULT 2639 UNSPECIFIED 03-14-2015 [facility] PROTEIN-TEA HOSPITA ORIE MALNUTRITIO N 18565 MIGRAINE 03-07-2015 [facility] UNSP W/O BARIATRIC 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 MIGRAINOSUS 22682 OTHER 03-07-2015 [facility] URINARY BARIATRIC INCONTINENC SURGICAL E 6929 CONTACT 03-06-2015 [facility] DERMATITIS& OTHER ECZEMA DUE UNSPEC CAUSE 6822 CELLULITIS 03-02-2015 [place] AND [facility]ESS [facility] P V148 PERSONAL 03-02-2015 [place] HISTORY [facility] ALLERGY OT HOSPITAL P SPEC MEDICINAL AGTS V571 OTHER 02-22-2015 [facility] THERAPY INC 2724 OTHER AND 02-20-2015 [facility] UNSPECIFIED COMMUNTIY HOSPITA HYPERLIPIDE LILIANE 7245 UNSPECIFIED 02-20-2015 [facility] BACKACHE COMMUNTIY HOSPITA V7283 OTHER 02-20-2015 [facility] SPECIFIED COMMUNTIY PRE-OPERATI HOSPITA VE EXAMINATION 2875 UNSPECIFIED 02-15-2015 [facility] 7932 NONSPC ABN 02-10-2015 [place] [facility] RAD&OTH [facility] EXAM OTH INTRTHOR ORGN V7282 PRE-OPERATI 02-10-2015 [place] [facility] RESPIRATORY [facility] EXAMINATION 5930 NEPHROPTOSI 02-09-2015 [facility] P 7802 SYNCOPE AND 02-01-2015 [facility] MEDICAL G 4139 OTHER AND 01-18-2015 [facility] BENDIFIED [facility] ANGINA [facility] [facility] 05697 SHORTNESS 01-18-2015 [facility] 39636 OTHER CHEST 01-18-2015 [facility] P 70691 OSTEOARTHRO 12-30-2014 DANIEL Reddy INVLV MX SITES BUT NOT SPEC GEN 20552 PAIN IN 11-09-2014 [place] [facility], MED[facility] SHOULDER IMAGING ASS REGION V5832 ENCOUNTER 11-09-2014 [place] FOR REMOVAL [facility] P 54603 PILAR CYST 11-02-2014 [facility] 84628 UNSPECIFIED 10-06-2014 [facility] INFE[facility] PHYS IN CCE & UNS SITE 7840 HEADACHE 10-06-2014 [place] [facility] 09665 ATROPHIC 09-16-2014 [facility] WITHOUT HOSPITA MENTION OF HEMORRHAGE 46016 OTHER SPEC 09-16-2014 [facility] WITHOUT MENTION HEMORRHAGE 16095 DYSPHAGIA 09-16-2014 [place] UNSPECIFIED ANESTHESIA GROUP PS 6869 UNSPEC 08-17-2014 [facility] LOCAL INFECTION SKIN&SUBCUT ANEOUS TISSUE V7284 UNSPECIFIED 08-09-2014 [facility] VE EXAMINATION 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 E849.8 E849.8 12-31-2013 [place] ACCIDENT IN [facility] E885.9 E885.9 FALL 12-31-2013 [place] FROM [facility]IP[facility], Hospital TRIPPING, OR STUMBLING [facility] V14.0 V14.0 12-31-2013 [place] HX-PENICILL [facility] V14.1 V14.1 12-31-2013 [place] HX-ANTIBIOT [facility] V01.6 V01.6 01-11-2013 [place] VENEREAL [facility] DIS CONTACT Hospital V0481 NEED 01-06-2009 [facility] PROPHYLACTI [facility] C CENTRAL VACCINATION BANK ACCT &INOCULATIO N FLU 79569 PAIN IN 01-04-2009 [place] [facility] THIGH 91924 DISPLCMT 01-04-2009 [place] LUMBAR MEDICAL INTERVERT 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 8460 SPRAIN AND 01-04-2009 [employer] 8472 LUMBAR 01-04-2009 [place] [facility] STRAIN INC 06576 CONTUSION 01-04-2009 [employer] BACK [employer] 40283 CONTUSION 01-04-2009 [employer] [email or web address]OCK [employer] E8490 PLACE OF 01-04-2009 [place] OCCURRENCE, MEDICAL HOME IMAGING ASSOCIATES E8859 FALL FROM 01-04-2009 [place] OTHER MEDICAL SLIPPING IMAGING TRIPPING OR ASSOCIATES [...] 43 RA 30 17 17 61 PH IA 5 60 AR DE MA CY 10 MG TA BL ET FL 50 07 08 16 30 00 CL Ac UT 38 -0 -0 .0 00 IN ti IC 30 7- 4- 00 00 IC ve 70 20 20 42 ON 01 17 17 79 PH E 6 94 AR VA MA OP CY 50 MC G SP [...] 43 ZA 60 17 17 63 PH VA 1 09 AR IN MA E CY [...] YL 15 2- 7- 00 01 ve VA 02 20 20 18 AI ED 20 [...] 17 79 PH E 6 94 AR VA MA OP CY 50 MC G SP [...] 43 ZA 60 17 17 25 PH VA 1 00 AR IN MA E CY [...] 17 79 PH E 6 94 AR VA MA OP CY 50 MC G SP [...] 42 ZA 60 17 17 82 PH VA 1 16 AR IN MA E CY [...] 17 79 PH E 6 94 AR VA MA OP CY 50 MC G SP [...] 42 ZA 60 17 17 59 PH VA 1 23 AR IN MA E CY [...] 0 CY MG CA PS UL E VA 65 03 03 20 5 00 CL [...] 1 70 PH CE AR TA MA IA CY NO PH #3 93 7. 8 5- 32 5 OS 47 03 03 10 10 00 CL Ac EL 78 -0 -3 .0 00 IN ti TA 10 7- 1- 00 00 IC ve IA 47 20 20 42 01 17 17 [...] 17 53 PH E 6 48 AR VA MA OP CY 50 MC G SP [...] 42 ZA 60 17 17 30 PH VA 1 05 AR IN MA E CY [...] MG #3 TA 93 BL 8 ET VA 59 02 03 10 5 00 RI [...] 42 ZA 81 17 17 08 PH VA 0 66 AR IN MA E CY [...] 17 53 PH E 9 48 AR VA MA OP CY 50 MC G SP [...] 5 25 PH CE AR TA MA IA CY NO PH OF CY 7. NT [...] 12 01 20 10 00 CL Ac VA 46 -2 -2 .0 00 IN ti [...] 12 01 14 7 00 CL Ac VA 46 -1 -2 .0 00 IN ti [...] 17 53 PH E 9 48 AR VA MA OP CY 50 MC G SP RA Y BU 00 02 0 No TA 60 -0 LB 32 7- Lo -A 54 20 ng CE 42 14 er TA 1 IA Ac N- ti CA ve FF 50 [...] 20 20 ZA 70 09 09 PH IA VA 6 AR CH IN MA AE E CY L 10 S MG TA BL ET ME 59 02 02 00 21 6 CL 18 GA Ac TH 74 -1 -2 .0 IN 75 IN ti YL 60 2- 6- 00 IC 10 EY ve VA 00 20 20 ED 10 09 09 PH IA NI 3 AR CH SO MA AE [...] Comment ion Range Glucose 88 mg/dL 70-100 Bld-[facility] 12-31-2013 17:30 Name Value Interpretat Reference Comment [...] Hgb A1c Bld (12-05-2016 11:40) Comment: The [place] [employer] recommends maintenance of Hemoglobin A1C [...] Procedure DOS Code Location Performer Comment ECG 55981 [facility] ROUTINE 7 PHYSICIAN ECG S, PLLC W/LEAST 12 LDS I&R ONLY EGD 45808 DOMINICK SANCHEZ TRANSORAL 7 [facility] BIOPSY MEDICAL SINGLE/MU GROUP LTIPLE ECG 11664 [facility] ROUTINE 7 HEART ECG SPECIALIS W/LEAST TS, 12 LDS I&R ONLY ECG 37141 [facility] ROUTINE 7 PHYSICIAN ECG S, PLLC W/LEAST 12 LDS I&R ONLY COMPREHEN 48679 [place] [facility] SIVE [facility] [place] [address] [place] [facility] TROPONIN 7 [facility] QUANTITAT INC INC SABIHA ECG 48721 [place] [facility] ROUTINE 7 [facility] ECG INC INC W/LEAST 12 LDS TRCG ONLY W/O I&R ECG 92624 [facility] ROUTINE 7 [facility] ECG [facility] W/LEAST 12 LDS TRCG ONLY W/O I&R COLPOSCOP 19694 [facility] HUMPHREY Y CERVIX 7 PHYSICIAN BX CERVIX S GROUP & [place] [address] [facility], PICKLESIM SURG 7 LLC ER JR PATHOLOGY GROSS&[place] [address] [facility] C[facility] TRACT 7 [facility] UPPER [facility] W/WO DELAYED IMAGES W/KUB UNCLASSIF J3490 [place] [facility] IED DRUGS 7 [place] [address] [facility] HEAD/BRAI 7 MEDICAL MEDICAL N W/O IMAGING IMAGING CONTRAST ASS ASS MATERIAL COMPREHEN 20840 [place] [facility] SIVE 7 [facility] METABOLIC INC INC PANEL GONADOTRO 05868 [place] [facility] PIN 7 [facility] LUTEINIZI INC INC NG HORMONE GONADOTRO 10882 [place] [facility] PIN 7 [facility] FOLLICLE INC INC STIMULATI NG HORMONE BLOOD 99995 [place] [facility] COUNT 7 [facility] COMPLETE INC INC AUTO&AUTO DIFRNTL WBC LIPID 59221 [place] [facility] PANEL 7 [place] [address] [place] [facility] GAMMAGLOB 7 [facility] ULIN IGA INC INC IGD IGG IGM EACH URNLS DIP 36833 [place] [facility] STICK/TAB INC INC LET REAGENT AUTO MICROSCOP Y BLOOD 19758 [place] [facility] COUNT 7 [facility] COMPLETE INC INC AUTO&AUTO DIFRNTL WBC UNCLASSIF J3490 [place] [facility] IED DRUGS 7 [facility] INC INC COMPREHEN 94125 [place] [facility] SIVE 7 [facility] [place] [address] [place] [facility] INFUSION 7 [facility] THERAPY/P INC INC ROPHYLAXI S /DX 1ST TO 1 [place] [address] [place] [facility] INFUSION 7 [facility] THERAPY INC INC PROPHYLAX IS/DX EA HOUR UNCLASSIF J3490 [place] [facility] IED DRUGS 7 [facility] INC INC IADNA 55623 [facility] TOD HUMAN 7 LLC PAPILLOMA VIRUS HIGH-RISK TYPES URNLS DIP 44365 [facility] HUMPHREY 7 PHYSICIAN STICK/TAB S GROUP LET RGNT NON-AUTO W/O MICRSCP CYTP 17205 [facility], TOD CERVICAL/ 7 LLC VAGINAL REQ INTERP PHYSICIAN CYTP C/V 64247 [facility], [facility] AUTO THIN 7 LLC LYR PREPJ SCR MNL RESCR PHYS ECG 66962 [place] [facility] ROUTINE 7 [facility] ECG INC INC W/LEAST 12 LDS TRCG ONLY W/O I&R PROTEIN 65841 [place] [facility] ELECTROPH 7 [facility] ORETIC INC INC FRACTJ&QU ANTJ SERUM ANTINUCLE 13302 [place] [facility] AR 7 [facility] ANTIBODIE INC INC S SANNA COMPREHEN 38975 [place] [facility] SIVE 7 [facility] METABOLIC INC INC PANEL BLOOD 01709 [place] [facility] COUNT 7 [facility] COMPLETE INC INC AUTO&AUTO DIFRNTL WBC URNLS DIP 40919 [place] TALLEYON 7 [facility] STICK/TAB INC INC LET RGNT AUTO W/O MICROSCOP Y CT THORAX 02369 [facility] MEDICAL W/CONTRAS IMAGING T ASS MATERIAL UNCLASSIF J3490 [place] [facility] IED DRUGS 7 [facility] INC INC CREATININ 84208 [place] [facility] E BLOOD 7 [place] [address] [place] [facility] UREA 7 [facility] NITROGEN [place]X [address] YVETTE AVINA DX/THER 7 MD HRIANNON, AGT PVRT PSC FACET JT LMBR/SAC 3+ LEVEL ECG 87832 [place] [facility] ROUTINE 7 [facility] ECG INC INC W/LEAST 12 LDS TRCG ONLY W/O I&R ECG 33314 [facility] KIMBERLY ROUTINE 7 PHYSICIAN ECG S GROUP W/LEAST 12 LDS I&[place] NJX 89696 Y[facility] DUFF DX/THER 7 MD RHIANNON, AGT PVRT PSC FACET JT LMBR/SAC 1 LEVEL NJX 58287 [facility] DUFF DX/THER 7 MD RHIANNON, AGT PVRT PSC FACET JT LMBR/SAC 2ND LEVEL UNCLASSIF J3490 [place] [facility] IED DRUGS 7 [facility] INC INC APPL 46838 [place] [facility] MODALITY 7 [facility] 1/> AREAS INC INC IONTOPHOR ESIS EA 15 MIN THERAPEUT 07689 [place] [facility] IC PX 1/> 7 [facility] AREAS INC INC EACH 15 MIN EXERCISES APPL 93052 [place] [facility] MODALITY 7 [facility] 1/> AREAS INC INC TRACTION MECHANICA L APPL 32487 [place] [facility] MODALITY 7 [facility] 1/> AREAS INC INC ELEC STIMJ UNATTENDE D APPLICATI 82715 [place] [facility] ON 7 [facility] MODALITY INC INC 1/> AREAS HOT/COLD PACKS APPL 54574 [place] [facility] MODALITY 7 [facility] 1/> AREAS INC INC VASOPNEUM ATIC DEVICES APPL 18171 [place] [facility] MODALITY 7 [facility] 1/> AREAS INC INC ULTRASOUN D EA 15 MIN APPL 33360 [place] [facility] MODALITY 7 [facility] 1/> AREAS INC INC ELEC STIMJ UNATTENDE D APPLICATI 04394 [place] [facility] ON 7 [facility] MODALITY INC INC 1/> AREAS HOT/COLD PACKS APPL 29176 [place] [facility] MODALITY 7 [facility] 1/> AREAS INC INC TRACTION MECHANICA L PHYSICAL 96900 [place] [facility] THERAPY 7 [facility] EVALUATIO INC INC N HIGH COMPLEX 45 MINS THER 04820 [place] [facility] PROPH/DX 7 [facility] NJX IV INC INC PUSH SINGLE/1S T SBST/DRUG RADEX 64098 SEJ[facility] CERRAT[facility] ABDOMEN 7 MEDICAL COMPL IMAGING W/DCBTS&/ ASS ERC VIEWS THERAPEUT 40653 [place] [facility] IC 7 [facility] INJECTION INC INC IV PUSH EACH NEW DRUG CREATINE 42099 [place] [facility] KINASE 7 [facility] TOTAL INC INC ECG 48153 [place] [facility] ROUTINE 7 [facility] ECG INC INC W/LEAST 12 LDS TRCG ONLY W/O I&R UNCLASSIF J3490 [place] [facility] IED DRUGS 7 [place] [address] [place] [facility] AMYLASE 7 [facility] INC INC CREATINE 07411 [place] [facility] KINASE MB 7 [facility] [place] [address] [place] [facility] TROPONIN 7 [facility] QUANTITAT INC INC SABIHA COMPREHEN 48982 [place] [facility] SIVE 7 [facility] [place] [address] [place] [facility] LIPASE 7 [facility] INC INC BLOOD 42738 [place] [facility] COUNT 7 [facility] COMPLETE INC INC AUTO&AUTO DIFRNTL WBC ECG 31438 [place] ROUTINE 7 [facility] W/LEAST P 12 LDS I&R ONLY ECG 83916 [facility] KIMBERLY ROUTINE 7 PHYSICIAN ECG S GROUP W/LEAST 12 LDS I&R ONLY ECG 92111 [place] [facility] ROUTINE 7 [facility] ECG INC INC W/LEAST 12 LDS TRCG ONLY W/O I&R APPL 62180 [place] [facility] MODALITY 7 [facility] 1/> AREAS INC INC TRACTION MECHANICA L APPLICATI 52114 [place] [facility] ON 7 [facility] MODALITY INC INC 1/> AREAS HOT/COLD PACKS APPL 09457 [place] [facility] MODALITY 7 [facility] 1/> AREAS INC INC ELEC STIMJ UNATTENDE D APPL 43649 [place] [facility] MODALITY 7 [facility] 1/> AREAS INC INC ELEC STIMJ UNATTENDE D APPLICATI 74048 [place] [facility] ON 7 [facility] MODALITY INC INC 1/> AREAS HOT/COLD PACKS APPL 86358 [place] [facility] MODALITY 7 [facility] 1/> AREAS INC INC TRACTION MECHANICA L APPLICATI 64756 [place] [facility] ON 7 [facility] MODALITY INC INC 1/> AREAS HOT/COLD PACKS APPL 49153 [place] [facility] MODALITY 7 [facility] 1/> AREAS INC INC ELEC STIMJ UNATTENDE D THERAPEUT 31600 [place] [facility] IC PX 1/> 7 [facility] AREAS INC INC EACH 15 MIN EXERCISES ECG 75965 [facility] ROUTINE 7 PHYSICIAN ECG S GROUP W/LEAST 12 LDS I&R ONLY XTRNL ECG 41788 [place] [facility] & 48 HR 7 [facility] RECORDING INC INC ECG 56664 [facility] ROUTINE 7 PHYSICIAN ECG S, PLLC W/LEAST 12 LDS I&R ONLY RADIOLOGI 51912 [facility] C EXAM 7 PHYSICIAN CHEST 2 S, PLLC VIEWS FRONTAL&L ATERAL COMPREHEN 42231 [place] [facility] SIVE 7 [facility] METABOLIC INC INC PANEL CREATINE 23035 [place] [facility] KINASE MB 7 [facility] FRACTION INC INC ONLY MRI 40123 [facility] SP[facility] 7 CANAL ORTHOPAED LUMBAR ICS PSC W/O CONTRAST MATERIAL BLOOD 61083 [place] [facility] COUNT 7 [facility] COMPLETE INC INC AUTO&[place] [address] [place] [facility] TROPONIN 7 [facility] QUANTITAT INC INC SABIHA ECG 87883 [place] [facility] ROUTINE 7 [facility] ECG INC INC W/LEAST 12 LDS TRCG ONLY W/O I&R GROUND A0425 STAC[facility] KUMAR MILEAGE 7 AMBULANCE AMBULANCE PER SERVICE SERVICE STATUTE MILE CREATINE 03810 [place] [facility] KINASE 7 [facility] TOTAL INC INC AMB A0427 [facility] SERVICE 7 AMBULANCE AMBULANCE ALS SERVICE SERVICE EMERGENCY TRANSPORT LEVEL 1 THERAPEUT 03423 [place] [facility] IC PX 1/> 7 [facility] AREAS INC INC EACH 15 MIN EXERCISES APPL 61751 [place] [facility] MODALITY 7 [facility] 1/> AREAS INC INC ELEC STIMJ UNATTENDE D APPLICATI 58983 [place] [facility] ON 7 [facility] MODALITY INC INC 1/> AREAS HOT/COLD PACKS APPL 91010 [place] [facility] MODALITY 7 [facility] 1/> AREAS INC INC TRACTION MECHANICA L RADEX 95026 [facility] SPINE 7 [place] LUMBOSACR ORTHOPAED AL 2/[address] [place] [address] [facility] CERVICAL 7 MEDICAL MEDICAL SPINE W/O IMAGING IMAGING CONTRAST ASS ASS MATERIAL ECG 18293 [place] [facility] ROUTINE 7 [facility] ECG INC INC W/LEAST 12 LDS TRCG ONLY W/O I&[place] [address] [place] C[facility] HEAD/BRAI 7 MEDICAL N W/O IMAGING CONTRAST ASS MATERIAL ECG 19607 [place] ROUTINE 7 [facility] W/LEAST P 12 LDS I&[place] [address] [place] [facility] FOLIC 7 [facility] ACID INC INC SERUM CYANOCOBA 08364 [place] [facility] LYUBOV 7 [facility] VITAMIN INC INC B-12 COLLECTIO 09566 [place] [facility] N VENOUS 7 [facility] BLOOD INC INC VENIPUNCT URE 25 02881 [place] [facility] HYDROXY 7 [facility] INCLUDES INC INC FRACTIONS IF PERFORMED THERAPEUT 53686 [place] [facility] IC 7 [facility] PROPHYLAC INC INC TIC/DX INJECTION SUBQ/IM UNCLASSIF J3490 [place] [facility] IED DRUGS 7 [facility] INC INC UNCLASSIF J3490 [place] [facility] IED DRUGS 7 [facility] INC INC URNLS DIP 86288 [place] [facility] 7 [facility] STICK/TAB INC INC LET REAGENT AUTO MICROSCOP Y DESTRUCTI 62450 [facility] JASSO ON BENIGN 7 LESIONS UP TO 14 [place] [address] [facility] RODRIGUE[facility] TRACT 7 RADIOLOGY UPPER ASSOC W/WO DELAYED IMAGES W/KUB RADEX 71457 [place] SAQIB ABDOMEN 1 7 MEDICAL [place] [address] [place] [facility] INFUSION 7 [facility] THERAPY/P INC INC ROPHYLAXI S /DX 1ST TO 1 HR TX PROC G0238 [place] [facility] IMPRV 7 [facility] RESP INC INC FUNCT NOT G0237 FCE-FCE 15MIN COMPREHEN 73104 [place] [facility] SIVE 7 [facility] METABOLIC INC INC PANEL BLOOD 53964 [place] [facility] COUNT 7 [facility] COMPLETE INC INC AUTO&AUTO DIFRNTL WBC RADEX 79989 [place] [facility] ESOPHAGUS 7 MEDICAL IMAGING ASS RAD EXP G9500 [place] CERRATO INDICES/E 7 MEDICAL XP TM & IMAGING NUMB ASS FLUORO IMAGES DOC INJECTION J0330 [facility] CATH[facility]IC [address] [place] [address] SUCCINYLC [facility] HOLINE CHLORIDE UP TO 20 MG INJECTION J2405 [facility] C[facility] [address] [place] [address] ONDANSETR [facility] ON HCL PER 1 MG INJECTION J1100 [facility] [address] [place] [address] DEXAMETHO [facility] SONE SODIUM PHOSPHATE 1 MG INJECTION J1170 [facility] [address] [place] [address] HYDROMORP [facility] KURTIS UP TO 4 MG ANES 01462 [facility] INTRAPERI 7 [place] TONEAL ANESTHESI UPPER A ABDOMEN W/LAPS NOS LAPS RPR 29747 [facility] RADHA [address] HR MEDICAL INCL GROUP FUNDPLSTY W/O MESH INJECTION J1650 [facility] [address] [place] [address] ENOXAPARI [facility] N SODIUM 10 MG INJECTION J2704 [facility] PROPOFOL [address] [place] [address] 10 MG [facility] INJECTION J2710 [facility] CATHOLIC 7 [facility] HEALTH NEOSTIGMI [facility] NE METHYLSUL FATE UP TO 0.5 MG INJECTION J3010 [facility] CATHOLIC FENTANYL 7 [facility] CITRATE [facility] 0.1 MG GLUCOSE 84231 [facility] QUANTITAT 7 [facility] SABIHA BLOOD [facility] XCPT REAGENT STRIP HEMOGLOBI 97006 [facility]ATH[facility] N 7 [facility] HEALTH GLYCOSYLA [facility] LANEY A1C BLOOD 46387 [facility] COUNT 7 [facility] COMPLETE [facility] AUTOMATED ECG 94438 [facility] ANNA ROUTINE 7 [facility] ECG MEDICAL W/LEAST GROUP 12 LDS I&R ONLY COLLECTIO 10739 [facility] N VENOUS 7 [facility] BLOOD [facility] VENIPUNCT URE ECG 37884 [facility] ROUTINE 7 [facility] ECG [facility] W/LEAST 12 LDS TRCG ONLY W/O I&R ECG 91080 [place] [facility] ROUTINE 6 [facility] ECG INC INC W/LEAST 12 LDS TRCG ONLY W/O I&R THERAPEUT 67189 [place] [facility] IC 6 [facility] INJECTION INC [place] [address] [place] [facility] INFUSION 6 [facility] THERAPY/P INC INC ROPHYLAXI S /DX 1ST TO 1 HR RADEX 87560 [place] [facility] ABDOMEN 6 [facility] COMPL INC INC W/DCBTS&/ ERC VIEWS ECG 98220 [place] CHAVEZ JR ROUTINE 6 [facility] W/LEAST P 12 LDS I&R ONLY RADIOLOGI 74238 [facility] C EXAM 6 MEDICAL MEDICAL CHEST 2 IMAGING IMAGING VIEWS ASS ASS FRONTAL&L ATERAL BLOOD 58616 [place] [facility] COUNT 6 [facility] COMPLETE INC INC AUTO&AUTO DIFRNTL WBC COMPREHEN 20804 [place] [facility] SIVE 6 [facility] [place] [address] [facility] [facility] LIPASE 6 [facility] [place] [address] [facility] [facility] AMYLASE 6 [facility] INC INC BLOOD 97419 [place] [facility] OCCULT 6 [facility] PEROXIDAS INTERNAL E ACTV MED QUAL FECES 1 DETER GLUC BLD 62554 [place] [facility] GLUC MNTR 6 [facility] DEV INC [place] [address] [place] [facility] HEAD/BRAI 6 [facility] N W/O INC INC CONTRAST MATERIAL THERAPEUT 45741 [place] [facility] IC 6 [facility] PROPHYLAC INC INC TIC/DX INJECTION SUBQ/IM RADEX 60106 [place] [facility] SPINE 6 [facility] LUMBOSACR INC INC AL MINIMUM 4 VIEWS RADEX 91298 [place] SACRUM & 6 [facility] COCCYX INC INC MINIMUM 2 VIEWS URINE 35665 [place] [facility] 6 [facility] TEST INC INC VISUAL COLOR CMPRSN METHS RADIOLOGI 00764 [place] C 6 [facility] EXAMINATI INC INC ON PELVIS 1/2 VIEWS RADIOLOGI 20428 [place] [facility] C EXAM 6 MEDICAL ADRIANNA CHEST 2 IMAGING VIEWS ASS FRONTAL&L ATERAL RADEX 71389 [place] T[place] SINUSES 6 [facility] PARANASAL INC INC COMPL MINIMUM 3 VIEWS BLOOD 43327 [place] COUNT 6 [facility] COMPLETE INC INC AUTO&AUTO DIFRNTL WBC CUL BACT 82811 [place] XCPT 6 [facility] URINE INC INC BLOOD/STO OL AEROBIC ISOL IAADI 26447 [place] INFLUENZA 6 [facility] B VIRUS INC INC IAADI 46291 [place] INFFLUENZ 6 [facility] [place] [address] [place] STREPTOCO 6 [facility] CCUS INC INC GROUP A ANESTHESI 16245 [facility] FEEBACK A NOSE & 6 ANESTH ACCESSORY [place] [address] [facility] PATH[facility] GROSS&BRYCE ROSCOPIC EXAM DECALCIFI 62744 [facility] C[facility] ER JR WANDA PROCEDURE ECG 61220 [place] ROUTINE 6 [facility] ECG INC INC W/LEAST 12 LDS TRCG ONLY W/O I&R ECG 16728 [place] MAT[place] ROUTINE 6 [facility] W/LEAST P 12 LDS I&R ONLY ANTIBODY 25954 [place] HERPES 6 [facility] SMPLX INC INC TYPE 1 ANTIBODY 93322 [place] VIRUS NOT 6 [facility] INC INC ELSEWHERE SPECIFIFE D BLOOD 51294 [place] COUNT 6 [facility] COMPLETE INC INC AUTO&AUTO DIFRNTL WBC COMPREHEN 00748 [place] SIVE 6 [facility] METABOLIC INC INC PANEL COLLECTIO 40424 [place] N VENOUS 6 [facility] [place] [address] [place] MAXILLOFA 6 [facility] CIAL W/[place] [address] [facility] BEINEKE HEAD/BRAI 6 MEDICAL N W/O IMAGING CONTRAST ASS MATERIAL URINE 79755 [place] AV[facility]A 6 [facility] TEST INC [place] V[place] [address] [facility] OCONNELLINEMILA CERVICAL 6 MEDICAL SPINE W/O IMAGING CONTRAST ASS MATERIAL COMPRE 03128 MAEGAN ISSA AUDIOMETR 6 JARON JARON Y THRESHOLD EVAL SP RECOGNIJ TYMPANOME 83513 MAEGAN ISSA TRY 6 JARON JARON DISTORT 73632 ISSA ISSA PRODUCT 6 JARON JARON EVOKED OTOACOUST IC EMISNS LIMITD PULMONARY 44425 [place] JERO STRESS 6 MEDICAL TESTING SERV SIMPLE FOUNDATIO N GAS 09228 [place] DILUT/WAS 6 MEDICAL MEDICAL HOUT LUNG SERV SERV VOL W/WO FOUNDATIO FOUNDAT[place] DISTRI[place] N N V[place] [address] [place] JERO DIFFUSING 6 MEDICAL CAPACITY SERV FOUNDATIO N ELIG CLIN G8427 STAMPING MICHAEL TRI ATTSTS 6 GROUND DOC M REC FAMILY OBTD CLINI UPD/REV PT MEDS ECG 60237 [place] ROUTINE 6 [facility] W/LEAST P 12 LDS I&R ONLY BLOOD 75605 [place] OCCULT 6 [facility] PEROXIDAS INC INC E ACTV QUAL FECES 1-3 SPEC IM ADM 31136 [facility] PRQ ID [facility] SUBQ/IM HLTH DEPT HLTH DEPT NJXS EA JAZZ JAZZ VACCINE BLOOD 63600 [place] COUNT 6 [facility] COMPLETE INC INC AUTO&AUTO DIFRNTL WBC SYPHILIS 67122 [facility] TEST [facility] NON-TREPO HLTH DEPT HLTH DEPT NEMAL JAZZ JAZZ ANTIBODY QUAL IM ADM 40930 [facility] PRQ ID 6 [facility] DISTRICT SUBQ/IM HLTH DEPT HLTH DEPT NJXS 1 JAZZ JAZZ VACCINE TDAP 52829 [facility] VACCINE 7 [facility] YRS/> IM HLTH DEPT HLTH DEPT JAZZ JAZZ COLLECTIO 57583 [place] Gutierrez VENOUS 6 [facility] BLOOD INC INC VENIPUNCT URE SKIN TEST 23409 [facility] 6 [facility] HLTH DEPT HLTH DEPT SIS JAZZ JAZZ INTRADERM AL XTRNL ECG 53325 [place] MATUTE 6 [facility] S RHYTHM P W/I&R UP TO 48 HRS BLOOD 59370 [place] COUNT 6 [facility] RETICULOC INC INC YTE AUTOMATED AMBULANCE A0429 STACY COTE SERVICE 6 AMBULANCE PATY BLS SERVICE EMERGENCY TRANSPORT SEDIMENTA 45373 [place] [facility] TION RATE 6 [facility] RBC INC INC NON-AUTOM ATED GROUND A0425 STACY COTE MILEAGE 6 AMBULANCE PATY PER SERVICE STATUTE MILE PROF SVCS 88126 ALLERGY ROSENTHAL MAR ALLG 6 [facility] IMMNTX X OF [place] W/PRV CO ALLGIC XTRCS NJXS NITRIC 55747 ALLERGY ROS[facility]HAL MAR OXIDE 6 [facility] [place] GAS CO DETERMINA TION BLOOD 15537 [place] [facility] COUNT 6 [facility] COMPLETE INC INC AUTO&AUTO DIFRNTL WBC RHEUMATOI 01551 [place] FACTOR 6 [facility] QUANTITAT INC INC SABIHA ECG 90850 [place] MATUTE ROUTINE 6 [facility] W/LEAST P 12 LDS I&R ONLY SPMTRY 63441 ALLERGY ROSENTHAL MAR W/VC 6 [facility] EXPIRATOR OF [place] Y ABHI CO W/WO MXML VOL VNTJ ANTINUCLE 67627 [place] AR 6 [facility] ANTIBODIE INC INC S SANNA BLOOD 16964 [place] COUNT 6 [facility] COMPLETE INC INC AUTO&AUTO DIFRNTL WBC BASIC 13800 [place] [facility] METABOLIC 6 [facility] PANEL INC INC CALCIUM TOTAL TECHNETIU A9503 [place] Mont[place] TC-99M 6 [facility] MEDRONATE INC INC DX UP TO 30 MCI BONE 28476 [place] [facility] &/JOINT 6 [facility] IMAGING INC INC WHOLE BODY COLLECTIO 69890 [place] [facility] N VENOUS 6 [facility] BLOOD INC INC VENIPUNCT URE SEDIMENTA 43554 [place] [facility] T[place] RATE 6 [facility] RBC INC INC NON-AUTOM ATED BLOOD 00652 [place] [facility] COUNT 6 [facility] RETICULOC INC INC YTE AUTOMATED RADIOLOGI 10060 [facility] C EXAM 6 MEDICAL MEDICAL CHEST 2 IMAGING IMAGING VIEWS ASS ASS FRONTAL&L ATERAL ANES 44615 [place] BR[place] [facility]OWER 6 ANESTHESI INTESTINE A GROUP [place] [address] [place] [facility] THYROXINE 6 [facility] TOTAL INC INC THYROID 21642 [place] [facility] HORM 6 [facility] UPTK/THYR INC INC OID HORMONE BINDING RATIO COLLECTIO 56532 [place] [facility] N VENOUS 6 [facility] [place] [address] [place] [facility] THYROID 6 [facility] STIMULATI INC INC NG HORMONE TSH GONADOTRO 74865 [place] PIN 6 [facility] FOLLICLE INC INC STIMULATI NG HORMONE GONADOTRO 86240 [place] [facility] PIN 6 [facility] LUTEINIZI INC INC NG HORMONE RADIOLOGI 22487 [facility] C 6 MEDICAL MEDICAL EXAMINATI IMAGING IMAGING ON CHEST ASS ASS SINGLE VIEW FRONTAL ECG 45971 [place] ROUTINE 6 [facility] W/LEAST P 12 LDS I&R ONLY GROUND A0425 [facility] MILEAGE 6 AMBULANCE KILO PER SERVICE STATUTE MILE AMB A0427 [facility] SERVICE 6 AMBULANCE KILO ALS SERVICE EMERGENCY TRANSPORT LEVEL 1 PREPJ& 74899 ALLERGY ROSENTHAL MAR ALLERGEN 6 [facility] IMMUNOTHE OF TRE PEREZ CO 1/[place] [address] [place] INFUSION 6 [facility] THERAPY INC INC PROPHYLAX IS/[place] [address] [place] INFUSION 6 [facility] THERAPY/P INC INC ROPHYLAXI S /DX 1ST TO 1 [place] [address] [place] TROPONIN 6 [facility] QUANTITAT INC INC SABIHA CREATINE 69032 [place] KINASE 6 [facility] [place] [address] [place] CERVICAL 6 [facility] SPINE W/O INC INC CONTRAST MATERIAL ECG 60959 [place] ROUTINE 6 [facility] ECG INC INC W/LEAST 12 LDS TRCG ONLY W/O I&R ECG 68573 [place] ROUTINE 6 [facility] W/LEAST P 12 LDS I&R ONLY RADIOLOGI 11484 [place] C 6 [facility] EXAMINATI INC INC ON KNEE 3 VIEWS BLOOD 44625 [place] COUNT 6 [facility] COMPLETE INC INC AUTO&AUTO DIFRNTL WBC COMPREHEN 73571 [place] [facility] SIVE 6 [facility] [place] [address] [place] [facility] HEAD/BRAI 6 [facility] N W/O INC INC CONTRAST MATERIAL CREATINE 60222 [place] KINASE MB 6 [facility] FRACTION INC INC ONLY SPMTRY 21976 ALLERGY ROSENTHAL MAR W/VC 6 [facility] EXPIRATOR OF [place] Y ABHI CO W/WO MXML VOL VNTJ SPACR A4627 [facility] KRASNOPOL BAG/RESRV 6 EQUIPMENT ANTONIO LAUREN OR W/WO INC MASK W/METRD DOSE INHAL PERCUTANE 55861 ALLERGY ROSENTHAL MAR OUS TESTS 6 [facility] [place] W/ALLERGE CO LEO EXTRACTS INTRACUTA 06062 ALLERGY ROSENTHAL MAR NEOUS 6 [facility] TESTS OF [place] W/ALLERGE CO LEO EXTRACTS NITRIC 27221 ALLERGY ROSENTHAL MAR OXIDE 6 [facility] [place] [address] [facility] TRANSVAGI 6 PHYSICIAN MEAGAN NAL S GROUP ECG 42038 [place] CHAVEZ JR ROUTINE 6 [facility] W/LEAST P 12 LDS I&R ONLY IADNA 44272 [place] [facility] CHLAMYDIA 6 [facility] INC INC TRACHOMAT IS AMPLIFIED PROBE TQ IADNA 45845 [place] NEISSERIA 6 [facility] INC INC GONORRHOE [place] [address] [facility] [place] ANDREWS TRACT 6 RADIOLOGY RHO UPPER W/WO DELAYED IMAGES W/KUB RADIOLOGI 43354 [place] C[place] ALL C 6 MEDICAL EXAMINATI IMAGING ON CHEST ASS SINGLE VIEW FRONTAL ECG 19600 [place] MAT[place] ROUTINE 6 [facility] W/LEAST P 12 LDS I&R ONLY ELECTROEN 71820 CINTHYA DONALD CEPHALOGR 6 N AM W/REC NEUROLOGY AWAKE&[place] [address] [facility] ABDOMEN & 6 MEDICAL MEDICAL PELVIS IMAGING IMAGING W/CONTRAS ASS ASS T MATERIAL ECG 56666 [place] [facility] ROUTINE 6 [facility] W/LEAST P 12 LDS I&R ONLY ELECTROEN 67717 [facility] CEPHALOGR 6 N N AM W/REC COMMUNTIY COMMUNTIY [facility] H[facility]PITA WSY RADEX 90279 SEJAL CERRATO ALL SPINE 6 MEDICAL THORACIC IMAGING 2 VIEWS ASS ECG 50969 [place] CHAVEZ JR ROUTINE 6 [facility] W/LEAST P 12 LDS I&R ONLY RADIOLOGI 35605 SEJAL CERRATO ALL C 6 MEDICAL EXAMINATI IMAGING ON CHEST ASS SINGLE VIEW FRONTAL SCREENING G0202 [facility] 6 MEDICAL [place] MAMMOGRAP IMAGING HY WILBERT ASS INCL CAD WHEN PERFORMD COMPUTER- 84394 [facility] AIDED 6 MEDICAL ADRIANNA DETECTION IMAG[place] [address] [place] [facility] INFUSION 6 [facility] THERAPY/P INC INC ROPHYLAXI S /DX 1ST TO 1 HR RADEX ABD 03561 SEJAL CERRATO ALL COMPL 6 MEDICAL AQT ABD IMAGING W/S/E/D ASS VIEWS 1 VIEW CH ECG 79282 [place] [facility] ROUTINE 6 [facility] ECG INC INC W/LEAST 12 LDS TRCG ONLY W/O [place] [address] [place] [facility] TROPONIN 6 [facility] [place] [address] [place] LACTATE 6 [facility] INC INC BLOOD 40932 [place] COUNT 6 [facility] COMPLETE INC INC AUTO&AUTO DIFRNTL WBC ECG 38433 [place] CHAVEZ JR ROUTINE 6 [facility] W/LEAST P 12 LDS I&R ONLY URNLS DIP 54346 [place] [facility]A 6 [facility] STICK/TAB INC INC LET REAGENT AUTO MICROSCOP Y COMPREHEN 28000 [place] SIVE 6 [facility] [place] [address] [place] [facility] INFUSION 6 [facility] THERAPY/P INC INC ROPHYLAXI S /DX 1ST TO [address] [place] [address] [place] TROPONIN 6 [facility] QUANTITAT INC INC SABIHA CREATINE 84327 [place] KINASE 6 [facility] TOTAL INC INC ECG 52474 [place] [facility] ROUTINE 6 [facility] ECG INC INC W/LEAST 12 LDS TRCG ONLY W/O I&R COMPREHEN 86805 [place] [facility] SIVE 6 [facility] METABOLIC INC INC PANEL CULTURE 68255 [place] [facility] BACTERIAL 6 [facility] INC INC QUANTTATI VE COLONY COUNT URINE CREATINE 44811 [place] KINASE MB 6 [facility] FRACTION INC INC ONLY URINE 98952 [place] [facility] 6 [facility] TEST INC INC VISUAL COLOR CMPRSN METHS URNLS DIP 23097 [place] [facility] 6 [facility] STICK/TAB INC INC LET REAGENT AUTO MICROSCOP Y BLOOD 34012 [place] [facility] COUNT 6 [facility] COMPLETE INC INC AUTO&AUTO DIFRNTL WBC ECG 44381 [place] ROUTINE 6 [facility] W/LEAST P 12 LDS I&R ONLY RADIOLOGI 94950 [place] [facility] C EXAM 6 [facility] CHEST 2 INC INC VIEWS FRONTAL&L ATERAL GROUND A0425 [facility]ANCE AMBULANCE PER SERVICE SERVICE STATUTE MILE AMB A0427 [facility] SERVICE 6 AMBULANCE AMBULANCE ALS SERVICE SERVICE EMERGENCY TRANSPORT LEVEL 1 RADEX ABD 38167 [place] C[place] ALL COMPL 6 MEDICAL AQT ABD IMAGING W/S/E/D ASS VIE[place] 1 [place] [address] [facility] INFUSION 6 N N HYDRATION COMMUNTIY COMMUNTIY EACH HOSPITA HOSPITA ADDITIONA L HOUR THER 76753 [facility] PROPH/DX 6 N N NJX IV COMMUNTIY COMMUNTIY PUSH HOSPITA HOSPITA SINGLE/1S T SBST/DRUG COLLECTIO 19862 [facility] N VENOUS 6 N N BLOOD COMMUNTIY COMMUNTIY VENIPUNCT HOSPITA HOSPITA URE BLOOD 53555 [facility] COUNT 6 N N COMPLETE COMMUNTIY COMMUNTIY AUTO&AUTO HOSPITA HOSPITA DIFRNTL WBC MRI BRAIN 17519 [facility] BRAIN 6 N N STEM W/O COMMUNTIY COMMUNTIY CONTRAST HOSPITA HOSPITA MATERIAL COMPREHEN 52256 [facility] SIVE 6 N N METABOLIC COMMUNTIY [place] [address] [place] ALL HEAD/BRAI 6 MEDICAL N W/O IMAGING CONTRAST ASS MATERIAL RADIOLOGI 82410 [place] ALL C 6 MEDICAL EXAMINATI IMAGING ON CHEST ASS SINGLE VIEW FRONTAL ECG 12265 [place] ROUTINE 6 [facility] W/LEAST P 12 LDS I&R ONLY GROUND A0425 [facility] MILEAGE 6 AMBULANCE AMBULANCE PER SERVICE SERVICE STATUTE MILE AMB A0427 [facility] SERVICE 6 AMBULANCE AMBULANCE ALS SERVICE SERVICE [place] [address] [facility] ABDOMEN & 6 MEDICAL PELVIS IMAGING W/O ASS CONTRAST MATERIAL THERAPEUT 94390 [facility] LUKING IC PX 1/> 6 AREAS EACH 15 MIN EXERCISES CHIROPRAC 27377 [facility] TIC 6 MANIPLTV TX EXTRASPIN AL 1/> REGION MANUAL 61767 [facility] THERAPY 6 TQS 1/> REGIONS EACH 15 MINUTES CHIROPRAC 67618 [facility] TIC 6 MANIPULAT SABIHA TX SPINAL 3-4 REGIONS MANUAL 95284 [facility] THERAPY 6 TQS 1/> REGIONS EACH 15 MINUTES THERAPEUT 99985 L[facility] LUKING IC PX 1/> 6 AREAS EACH 15 MIN EXERCISES THERAPEUT 91712 [facility] LUKING IC PX 1/> 6 MATTI MATTI AREAS EACH 15 MIN EXERCISES MANUAL 26575 [facility] THERAPY 6 MATTI MATTI TQS 1/> REGIONS EACH 15 MINUTES CHIROPRAC 62563 [facility] [place]UK[place] TIC 6 MATTI MATTI MANIPULAT SABIHA TX SPINAL 3-4 REGIONS CHIROPRAC 39948 [facility] LUK[place] TIC 6 MATTI MATTI MANIPLTV TX EXTRASPIN AL 1/> REGION IMHISTOCH 65924 SCALF LEI SCALF LEI EM/CYTCHM 6 1ST [place] [address] SCALF LEI SCALF LEI SURG 6 PATHOLOGY GROSS&BRYCE ROSCOPIC EXAM BX SKIN 98223 SCALF LEI SCALF LEI SUBCUTANE 6 OUS&/MUCO US MEMBRANE 1 LESION COMPREHEN 74556 [facility] SIVE 6 DIAGNOSTI DIAGNOSTI METABOLIC CS CS PANEL ECG 36175 [place] [facility] ROUTINE 6 [facility] W/LEAST P 12 LDS I&R ONLY ECG 47377 CATHOLICBerenice ANDRES ROUTINE 6 [facility] HEN ECG MEDICAL W/LEAST GROUP 12 LDS I&R ONLY LIPID 18703 [facility] CATHOLIC PANEL [address] [place] [address] [employer] [facility] HEMOGLOBI 76279 [facility]IC CATHOLIC N 6 [employer] GLYCOSYLA [facility] LANEY A1C BLOOD 15079 [facility] CATHOLIC COUNT 6 [facility] [employer] COMPLETE [facility] AUTOMATED CATH PLMT 29360 CATHOLIC MCKENNA Ortega HRT & 6 HEALTH IV ARTS MEDICAL W/NJX & GROUP ANGIO IMG S&I BASIC 35978 [facility] METABOLIC 6 [facility] HEALTH PANEL [facility] CALCIUM TOTAL INJECTION J3010 [facility] CATHOLIC FENTANYL 6 [facility] CITRATE [facility] 0.1 MG LOCM Q9967 [facility]IC CATHOLIC 300-399 6 [facility] MG/ML [facility] IODINE CONCENTRA TION PER ML COLLECTIO 12218 [facility] CATHOLIC N VENOUS 6 [facility] BLOOD [facility] VENIPUNCT URE INJECTION J1644 [facility]IC HEPARIN 6 [facility] [employer] SODIUM [facility] PER 1000 UNITS GONADOTRO 80871 [facility]ATH[facility] PIN 6 [facility] [employer] CHORIONIC [facility] QUANTITAT SABIHA CV STRS 83212 [place] TST 6 [facility]NOTE [facility]&/OR [facility] RX CONT P P ECG W/O I&R CV STRS 62247 [place] TST 6 [facility] XERS&/OR INC INC RX CONT ECG TRCG ONLY CV STRS 95771 [place] TST 6 [facility]NOTE 2[facility]&/OR [facility] RX CONT P P ECG I&R ONLY MYOCARDIA 88302 SEJAL CERRATO ALL L SPECT 6 MEDICAL MULTIPLE IMAGING STUDIES ASS UNCLASSIF J3490 [place] [facility] IED DRUGS 6 [facility] INC INC TECHNETIU A9500 [place] M TC-99M 6 [facility] SESTAMIBI INC INC DX PER STUDY DOSE ECHO 64477 MELANIE STERN TTHRC R-T 6 MEDICAL 2D SERV W/WOM-MOD FOUNDATIO E COMPL N SPEC&COLR D ECG 19278 AUSTINKIMBERLY CHAVEZ JR ROUTINE 6 [facility] W/LEAST P 12 LDS I&R ONLY RADIOLOGI 87635 SEJAL CERRATO ALL C 6 MEDICAL EXAMINATI IMAGING ON CHEST ASS SINGLE VIEW FRONTAL OPHTH 18273 [facility] MEDICAL 6 XM&EVAL COMPRHNSV ESTAB PT 1/> 25 59617 [facility] HYDROXY 6 MAI MAI INCLUDES HOLDINGS HOLDINGS FRACTIONS IF PERFORMED PREALBUMI 13248 [facility] MAHESH N 6 [place] [address] LAB [facility] LAB MAHESH PHOSPHORU 6 MAI MAI [place] [address] LAB [facility] LAB [facility] THIAMINE- 6 MAI MAI VITAMIN HOLDINGS [place] B-1 [place] [address] LAB [facility] LAB [facility] VITAMIN A 6 [place] [address] LAB [facility] LAB [facility] TOCOPHERO 6 MAI MAI L [place] [address] LAB [facility] LAB [facility] ZINC 6 MAI MAI HOLDINGS HOLDINGS ORGANIC 75710 [facility] ACID 1 6 MAI MAI QUANTIT[place] [address] LAB [facility] PARATHORM 6 MAI [place] [address] LAB MA[facility] LAB MAHESH IRON 6 [place] [address] LAB [facility] LAB MA[facility]ESH FERRITIN 6 [place] [address] LAB MA[facility] LAB MAHESH MAGNESIUM 6 MAI MAI HOLDINGS HOLDINGS COMPREHEN 02017 LAB [facility] LAB [facility] SIVE 6 MAI MAI [place] [address] [facility] LAB [facility] FOLIC 6 MAI MAI ACID HOLDINGS HOLDINGS SERUM BLOOD 56139 [facility] COUNT 6 MAI MAI COMPLETE HOLDINGS HOLDINGS AUTO&AUTO DIFRNTL WBC BLOOD 44724 [place] [facility] COUNT 6 [facility] COMPLETE INC INC AUTO&AUTO DIFRNTL WBC IRON 44475 [place] BINDING 6 [facility] [place] [address] [place] VAUGHN FERRITIN 6 [facility] TERA INC COMPREHEN 18987 [place] [facility] SIVE 6 [facility] [address] [place] IRON 6 [place] [address] [place] [facility] THYROID 6 [facility] STIMULATI INC INC NG HORMONE TSH COLLECTIO 91502 [place] [facility] N VENOUS 6 [facility] BLOOD INC INC VENIPUNCT URE 25 12654 [place] HYDROXY 6 [facility] INCLUDES INC INC FRACTIONS IF PERFORMED CYTP 61249 [facility] CERVICAL/ 6 LLC VAGINAL REQ INTERP PHYSICIAN CYTP C/V 34449 [facility] AUTO THIN 6 LLC LYR PREPJ SCR MNL RESCR PHYS IADNA 03238 [facility] NEISSERIA 6 LLC GONORRHOE AE AMPLIFIED PROBE TQ IADNA 63318 P&[facility] LABSMINDYNAJERA CHLAMYDIA 6 LLC TRACHOMAT IS AMPLIFIED PROBE TQ IADNA 79338 [facility] LABS NAJERA HUMAN 6 LLC PAPILLOMA VIRUS HIGH-RISK TYPES BASIC 27488 [place] METABOLIC 6 [facility] [place] [address] [place] [facility] THYROID 6 [facility] STIMULATI INC INC NG HORMONE TSH COLLECTIO 09216 [place] [facility] N VENOUS 6 [facility] BLOOD INC INC VENIPUNCT URE COLLECTIO 07715 [place] [facility] N VENOUS 6 [facility] [place] [address] [place] [facility] THIAMINE- 6 [facility] VITAMIN INC INC B-1 COMPREHEN 58871 [place] SIVE 6 [facility] METABOLIC INC INC PANEL PREALBUMI 51952 [place] N 6 [place] [address] [place] IRON 6 [facility] INC INC BLOOD 88446 [place] [facility] COUNT 6 [facility] COMPLETE INC INC AUTO&[place] [address] [place] FERRITIN 6 [facility] INC INC ORGANIC 43854 [place] [facility] ACID 1 6 [facility] [address] LAB [facility] LAB MAHESH FERRITIN 5 MAI MAI HOLDINGS HOLDINGS ORGANIC 29077 LAB MA[facility]ESH LAB [facility]HESH ACID 1 5 MAI MAI QUANTIT[place] [address] LAB MAHESH LAB MAHESH FOLIC 5 MAI MAI [place] [address] LAB MAHESH LAB MAHESH IRON 5 MAI MAI HOLDINGS HOLDINGS GENERAL 16075 LAB [facility] LAB MAHESH HEALTH 5 MAI MAI PANEL HOLDINGS HOLDINGS PREALBUMI 81296 [facility] LAB MAHESH N 5 [place] [address] LAB MA[facility]ESH LAB MA[facility]ESH THIAMINE- 5 MAI MAI VITAMIN HOLDINGS HOLDINGS B-1 DESTRUCTI 90734 ATKINS ATKINS ON 5 TRA TRA PREMALIGN [place] 1[place] [address] SCALF LEI SCALF LEI SURG 5 PATHOLOGY GROSS&BRYCE ROSCOPIC EXAM BIOPSY 87932 ATKINS ATKINS SKIN 5 TRA TRA SUBQ&/MUC OUS MEMBRANE EA ADDL LESN DESTRUCTI 99576 ATKINS ATKINS ON BENIGN 5 TRA TRA LESIONS UP TO 14 BX SKIN 77055 ATKINS ATKINS SUBCUTANE 5 TRA TRA OUS&/MUCO US MEMBRANE 1 [place] [address] LAB MAHESH LAB MAHESH FOLIC 5 MAI MAI ACID HOLDINGS HOLDINGS SERUM ORGANIC 85597 LAB MA[facility]ESH LAB MAHESH ACID 1 5 MAI MAI QUANTIT[place] [address] LAB MAHESH LAB MAHESH IRON 5 MAI MAI HOLDINGS HOLDINGS BLOOD 29570 LAB [facility] LAB MAHESH COUNT 5 MAI MAI COMPLETE HOLDINGS HOLDINGS AUTO&[place] [address] LAB MAHESH LAB MAHESH THIAMINE- 5 MAI MAI VITAMIN HOLDINGS HOLDINGS B-1 PREALBUMI 32594 LAB [facility] LAB MAHESH N 5 MAI MAI HOLDINGS HOLDINGS COMPREHEN 46047 [facility] LAB [facility] SIVE 5 MAI MAI METABOLIC HOLDINGS HOLDINGS PANEL COMPUTER- 54520 [facility] [facility] AIDED 5 [facility] DETECTION INC INC SCREENING MAMMOGRAP HY SCREENING G0202 [place] [facility] 5 [facility] MAMMOGRAP INC INC HY WILBERT INCL CAD WHEN PERFORMD BLOOD 59144 [place] [facility] COUNT 5 [facility] COMPLETE INC INC AUTO&AUTO DIFRNTL WBC LIPID 69103 [place] [facility] PANEL 5 [facility] INC INC HEMOGLOBI 85056 [place] [facility] N 5 [facility] GLYCOSYLA INC INC LANEY A1C COMPREHEN 86603 [place] [facility] SIVE 5 [facility] [address] [facility] GLUTAMYLT 5 [facility] [place] [address] [place] [facility] THYROID 5 [facility] STIMULATI INC INC NG HORMONE TSH 25 06505 [place] [facility] HYDROXY 5 [facility] INCLUDES INC INC FRACTIONS IF PERFORMED CYANOCOBA 31796 [place] [facility] LYUBOV 5 [facility] VITAMIN INC INC B-12 COLLECTIO 13703 [place] [facility] N VENOUS 5 [facility] BLOOD INC INC VENIPUNCT URE OPHTH 38394 [facility] 5 ANG ANG XM&EVAL COMPRHNSV ESTAB PT 1/> [place] [address] [facility] ABDOMEN & 5 N N PELVIS COMMUNTIY COMMUNTIY W/CONTR[place] [address] [place] [facility] ABDOMEN & 5 [facility] PELVIS [place] [address] [place] [facility] AMYLASE 5 [facility] INC INC CULTURE 99160 [place] [facility] BACTERIAL 5 [facility] INC INC [place]TT[place] [address] [facility] [facility] LIPASE 5 [facility] INC INC COMPREHEN 91722 [place] [facility] SIVE 5 [facility] METABOLIC INC INC PANEL BLOOD 14618 [place] [facility] COUNT 5 [facility] COMPLETE INC INC AUTO&AUTO DIFRNTL WBC URINE 53414 [place] [facility] 5 [facility] TEST INC INC VISUAL COLOR CMPRSN METHS URNLS DIP 19776 [place] [facility] 5 [facility] STICK/TAB INC INC LET REAGENT AUTO MICROSCOP Y BLOOD 98351 [facility] COUNT 5 N N COMPLETE COMMUNTIY COMMUNTIY AUTO&AUTO HOSP[place] [address] [facility] PARATHORM 5 N N ONE COMMUNTIY [place] [address] [facility] ZINC 5 N N COMM[place] [address] [facility] LIPASE 5 N N COMMUN[place] [address] [facility] MAGNESIUM 5 N N COMMUNTI[place] [address] [facility] AMYLASE 5 N N [place] [address] [facility] FOLIC 5 N N ACID COMMUNTIY COMMUNTIY SERUM HOSPITA HOSPITA ORGANIC 87723 [facility] ACID 1 5 N N QUANTITAT COMMUNTIY COMMUNTIY SABIHA HOSPITA HOSPITA COMPREHEN 56064 [facility] SIVE 5 N N METABOLIC COMM[place] [address] [facility] [place] [facility] ABDOMINAL 5 RADIOLOGY RHO [place] W/[place] [address] [facility] TOCOPHERO 5 N N L ALPHA COMMUNTIY [facility] [address] [facility] VITAMIN A 5 N N COMMUNTIY COMMUNTIY HOSPITA HOSPITA 25 98201 [facility] HYDROXY 5 N N INCLUDES COMMUNTIY COMMUNTIY FRACTIONS HOSPITA HOSPITA IF PERFORMED PREALBUMI 14897 [facility] N 5 N N COMMUNTIY COMMUNTIY HOSPITA HOSPITA COLLECTIO 97515 [facility] N VENOUS 5 N N BLOOD COMMUNTIY COMMUNTIY [place] [address] [facility] PHOSPHORU 5 N N S COMMUNTIY COMM[place] [address] [facility] THIAMINE- 5 N N VITAMIN COMMUNTIY COMMUNTIY B-1 HOSPITA HOSPITA PROTHROMB 36629 [facility] IN TIME 5 N N COMMUNTIY COMMUNTIY HOSPITA HOSPITA HEPATITIS 53597 [facility] B CORE 5 N N ANTIBODY COMMUNTIY COMMUNTIY HBCAB HOSPITA HOSPITA TOTAL HEPATITIS 96933 [facility] B SURF 5 N N ANTIBODY COMMUNTIY [place] [address] [facility] HEPATITIS 5 N N B COMMUNTIY COMMUNTIY SURFACE HOSPITA HOSPITA ANTIGEN ANTINUCLE 19641 [facility] AR 5 N N ANTIBODIE COMMUNTIY COMMUNTIY S SANNA HOSPITA HOSPITA COMPREHEN 55689 [facility] SIVE 5 N N METABOLIC [place] [address] [place] [facility] RETROPER[facility] 5 [facility] TONEAL INC INC REAL TIME W/[place] [address] SEJAL ENGLE RETROPERI 5 MEDICAL TONEAL IMAGING REAL TIME ASS W/IMAGE LIMITED COLLECTIO 11287 [facility] N VENOUS 5 N N BLOOD COMMUNTIY COMMUNTIY VENIPUNCT HOSPITA HOSPITA URE IMMUNOASS 61634 [facility] AY 5 N N ANALYTE COMMUNTIY COMMUNTIY QUAL/SEMI [place] [address] [facility] FERRITIN 5 N N [place] [address] [facility] IRON 5 N N COMMUNTIY COMMUNTIY HOSPITA HOSPITA BLOOD 86547 [facility] COUNT 5 N N COMPLETE COMMUNTIY COMMUNTIY AUTOMATED HOSPITA HOSPITA HEPATITIS 78002 [facility] C 5 N N ANTIBODY COMMUNTIY COMMUNTIY HOSPITA HOSPITA ALPHA-1-A 35593 [facility] NTITRYPSI 5 N N N TOTAL [place]UNTI[place] [address] [facility] GAMMAGLOB 5 N N ULIN IGA COMMUNTIY COMMUNTIY IGD IGG HOSPITA HOSPITA IGM EACH IRON 93119 [facility] BINDING 5 N N CAPAC[place] [address] [facility] SMITH KADIE ABDOMEN & 5 MEDICAL PELVIS IMAGING W/O ASS CONTRAST MATERIAL DUP-SCAN 68707 [facility] XTR VEINS 5 N N COMPLETE COMMUNTIY COMMUNTIY HOSPITA HOSPITA BILATERAL STUDY BLOOD 76690 [facility] COUNT 5 N N COMPLETE COMMUNTIY COMMUNTIY AUTO&AUTO [place] [address] [facility] LIPASE 5 N N [place] [address] [facility] AMYLASE 5 N N COMMUNTIY COMMUNTIY HOSPITA HOSPITA COLLECTIO 63892 [facility] N VENOUS 5 N N BLOOD COMMUNTIY COMMUNTIY VENIPUNCT HOSPITA HOSPITA URE COMPREHEN 51198 [facility] SIVE 5 N N METABOLIC COMMUNTIY COMMUNTI[place] [address] [facility] [place] SCALF HUBER TRACT 5 RADIOLOGY UPPER W/WO DELAYED IMAGES W/KUB ANES IPR 48327 [place] ANT UPPER 5 ANESTHESI ABDOMEN A GROUP LAPS PS GASTRIC RSTCV MO LAPS 02150 [facility] SANCHE[place] MICHELLE GSTRC 5 RSTRICTIV BARIATRIC PX SURGICAL LONGITUDI NAL GASTRECTO MY LAPAROSCO 4382 [facility] PIC 5 N N VERTICAL COMMUNTIY COMMUNTIY SLEEVE HOSPITA HOSPITA GASTRECTO MY OTHER 4513 [facility] ENDOSCOPY 5 N N OF SMALL COMMUNTIY COMMUNTIY HOSPITA HOSPITA INTESTINE APPL 43193 [place] [facility] MODALITY 5 [facility] 1/> AREAS INC INC ELEC STIMJ UNATTENDE D APPLICATI 60143 [place] [facility] ON 5 [facility] MODALITY INC INC 1/> AREAS HOT/COLD PACKS APPL 75476 [place] [facility] MODALITY 5 [facility] 1/> AREAS INC INC ULTRASOUN D EA 15 MIN COLLECTIO 33474 [facility] N VENOUS 5 N N BLOOD COMMUNTIY COMMUNTIY VENIPUNCT HOSPITA HOSPITA URE BLOOD 13530 [facility] COUNT 5 N N COMPLETE COMMUNTIY COMMUNTIY AUTOMATED HOSPITA HOSPITA COMPREHEN 54631 [facility] SIVE 5 N N METABOLIC COMMUNTIY COMMUNTIY PANEL HOSPITA HOSPITA GONADOTRO 76884 [facility] PIN 5 N N CHORIONIC COMMUNTIY COMMUNTIY HOSPITA HOSPITA QUALITATI VE DUP-SCAN 35155 [facility] [facility] XTR VEINS 5 [facility] COMPLETE INC INC BILATERAL STUDY APPL 09894 [facility] MODALITY 5 [facility] 1/> AREAS INC INC ULTRASOUN D EA 15 MIN APPLICATI 76650 [facility] [facility] ON 5 [facility] MODALITY INC INC 1/> AREAS HOT/COLD PACKS APPL 82080 [place] [facility] MODALITY 5 [facility] 1/> AREAS INC INC ELEC STIMJ UNATTENDE D THERAPEUT 76446 [facility] [facility] IC PX 1/> 5 [facility] AREAS INC INC EACH 15 MIN EXERCISES CUL BACT 54955 [place] [facility] XCPT 5 [facility] URINE INC INC BLOOD/STO OL AEROBIC ISOL SUSCEPTIB 55765 [facility] [facility] LTY STDY 5 [facility] ANTIMICRB INC INC IAL MICRO/AGA R DILUTJ THERAPEUT 42055 [facility] [facility] IC PX 1/> 5 [facility] AREAS INC INC EACH 15 MIN EXERCISES APPL 28612 [place] [facility] MODALITY 5 [facility] 1/> AREAS INC INC ELEC STIMJ UNATTENDE D APPLICATI 19366 [facility] [facility] ON 5 [facility] MODALITY INC INC 1/> AREAS HOT/COLD PACKS APPL 58074 [place] [facility] MODALITY 5 [facility] 1/> AREAS INC INC ULTRASOUN D EA 15 MIN APPL 90603 [place] [facility] MODALITY 5 [facility] 1/> AREAS INC INC ULTRASOUN D EA 15 MIN APPLICATI 02507 [place] [facility] ON 5 [facility] MODALITY INC INC 1/> AREAS HOT/COLD PACKS APPL 99566 [place] [facility] MODALITY 5 [facility] 1/> AREAS INC INC ELEC STIMJ UNATTENDE D APPL 94688 [place] [facility] MODALITY 5 [facility] 1/> AREAS INC INC IONTOPHOR ESIS EA 15 MIN APPL 18296 [facility] [facility] MODALITY 5 [facility] 1/> AREAS INC INC IONTOPHOR ESIS EA 15 MIN THERAPEUT 35198 [facility] [facility] IC PX 1/> 5 [facility] AREAS INC INC EACH 15 MIN EXERCISES APPL 91221 [place] [facility] MODALITY 5 [facility] 1/> AREAS INC INC ELEC STIMJ UNATTENDE D APPLICATI 36020 [place] [facility] ON 5 [facility] MODALITY INC INC 1/> AREAS HOT/COLD PACKS APPL 53526 [place] [facility] MODALITY 5 [facility] 1/> AREAS INC INC ULTRASOUN D EA 15 MIN COLLECTIO 45512 [facility] N VENOUS 5 N N BLOOD COMMUNTIY COMMUNTIY [place] [address] [facility] THYROID 5 N N STIMULATI COMMUNTIY COMMUNTIY NG HOSPITA HOSPITA HORMONE TSH CUL 52717 [facility] PRSMPTV 5 N N PTHGNC COMMUNTIY COMMUNTIY ORGANISM HOSPITA HOSPITA SCRN W/[place] [address] [facility] THYROXINE 5 N N TOTAL COMMUNTIY COMMUNTIY HOSPITA HOSPITA THYROID 93155 [facility] HORM 5 N N UPTK/THYR COMMUNTIY COMMUNTIY OID HOSPITA HOSPITA HORMONE BINDING RATIO COMPREHEN 26710 [facility] SIVE 5 N N METABOLIC COMMUNTIY COMMUNTIY PANEL HOSPITA HOSPITA ECG 81903 [facility] ROUTINE 5 N N ECG COMMUNTIY COMMUNTIY W/LEAST HOSPITA HOSPITA 12 LDS TRCG ONLY W/O I&R BLOOD 70400 [facility] COUNT 5 N N COMPLETE COMMUNTIY COMMUNTIY AUTOMATED HOSPITA HOSPITA RADIOLOGI 04012 [facility] [place] C EXAM 5 RADIOLOGY SHA CHEST 2 VIEWS FRONTAL&L ATERAL LIPID 98268 [facility] PANEL 5 N N COMMUNTIY COMMUNTIY HOSPITA HOSPITA PHYSICAL 43412 [place] [facility] THERAPY 5 [facility] EVALUATIO INC INC N COLLECTIO 75227 [facility] [place] N VENOUS 5 [facility] BLOOD INC INC VENIPUNCT URE FIBRIN 68429 [place] [facility] DGRADJ 5 [facility] PRODUCTS INC INC D-DIMER QUAL/SEMI GILBERT ECG 33756 [place] AIVLA ROUTINE 5 [facility] ECG INC INC W/LEAST 12 LDS TRCG ONLY W/O I&[place] [address] [place] [facility] TROPONIN 5 [facility] QUANTITAT INC INC SABIHA URNLS DIP 62158 [place] [facility] 5 [facility] STICK/TAB INC INC LET REAGENT AUTO MICROSCOP Y RADIOLOGI 53302 [facility] CANSECO C EXAM 5 MEDICAL ADRIANNA CHEST 2 IMAGING VIEWS ASS FRONTAL&L ATERAL ECG 10765 [place] CHAVEZ JR ROUTINE 5 [facility] W/LEAST P 12 LDS I&R ONLY BLOOD 40069 [place] [facility] COUNT 5 [facility] COMPLETE INC INC AUTO&AUTO DIFRNTL WBC COMPREHEN 36424 [place] [facility] SIVE 5 [facility] METABOLIC INC INC PANEL BLOOD 38052 [place] [facility] COUNT 5 [facility] COMPLETE INC INC AUTO&AUTO DIFRNTL WBC ECG 02395 [place] MATUTE ROUTINE 5 [facility] W/LEAST P 12 LDS I&R ONLY RADIOLOGI 37172 SEJAL CANSECO C EXAM 5 MEDICAL ADRIANNA CHEST 2 IMAGING VIEWS ASS FRONTAL&[place] [address] [place] [facility] TROPONIN 5 [facility] QUANTITAT INC INC SABIHA COMPREHEN 94180 [place] [facility] SIVE 5 [facility] METABOLIC INC INC PANEL ECG 71631 [place] [facility] ROUTINE 5 [facility] ECG INC INC W/LEAST 12 LDS TRCG ONLY W/O I&R FIBRIN 71969 [place] [facility] DGRADJ 5 [facility] PRODUCTS INC INC D-DIMER QUAL/[place] [address] SEJAL CAROLINACHER ANGIOGRAP 5 MEDICAL ADRIANNA HY CHEST IMAGING W/CONTRAS ASS T/NONCONT RAST LOCM Q9967 [place] [facility] 300-399 5 [facility] MG/ML INC INC IODINE CONCENTRA TION PER ML RADEX 87030 [facility] HARLEEN SHOULDER 4 MEDICAL COMPLETE IMAGING MINIMUM 2 ASS VIEWS DESTRUCTI 58613 ATKINS ATKINS ON BENIGN 4 TRA TRA LESIONS UP TO 14 LEVEL III 48247 SCALF LEI SCALF LEI SURG 4 PATHOLOGY GROSS&BRYCE ROSCOPIC EXAM REPAIR 10135 ATKINS ATKINS COMPLEX 4 TRA TRA SCALP/ARM /LEG 1.1-2.5 CM THERAPEUT 35025 [place] [facility] IC 4 [facility] INJECTION INC [place] [address] [facility] CANSECO HEAD/BRAI 4 MEDICAL ADRIANNA N W/O IMAGING CONTRAST ASS MATERIAL EGD 10487 [facility] SANCHEZ MICHELLE TRANSORAL 4 BIOPSY BARIATRIC SINGLE/[place] [address] [facility], PICKLESIM SURG 4 [facility] PATH[facility]Y GROSS&BRYCE ROSCOPIC EXAM ANES 00401 [facility] BENSON UPPER GI 4 ANESTHESI JOSE ANGEL ENDOSCOPY A GROUP PROXIMAL PS TO DUODENUM SPECIAL 17884 [facility], PICKLESIM STAIN 4 [facility] GROUP 1 MICROORGA NISMS I&R SPCL STN 15430 [facility], PICKLESIM 2 I&R 4 [facility] EXCPT MICROORG/ ENZYME/IM CYT SPMTRY 57769 [place] [facility] W/VC 4 [facility] EXPIRATOR INC INC Y ABHI W/WO MXML VOL VNTJ EXC B9 78974 ADVANCED SCALF LEI LESION 4 DERMATOLO MRGN XCP GY SK TG S/N/H/F/G 1.1-2.0CM REPAIR 07567 ADVANCED SCALF LEI COMPLEX 4 DERMATOLO SCALP/ARM GY /LEG 1.1-2.5 CM LEVEL III 13628 SCALF LEI SCALF LEI SURG 4 PATHOLOGY GROSS&BRYCE ROSCOPIC EXAM RADIOLOGI 52908 [place] [facility] C EXAM 4 [facility] CHEST 2 INC INC VIEWS FRONTAL&L ATERAL REMOVAL 67070 ARACELI WAYNEKINS SKN TAGS 4 TRA TRA EVENTS INTERN FIBRQ TAGS ANY AREA UPW/15 CV STRS 34485 [place] MATUTE TST 4 [facility] RX CONT P ECG I&R ONLY CV STRS 21662 [place] [facility] TST 4 [facility] XERS&/OR INC INC RX CONT ECG TRCG ONLY ECHO 05830 [place] [facility] TTHRC R-T 4 [facility] 2D INC INC W/WOM-MOD E COMPL SPEC&COLR D RADIOLOGI 74199 [facility] [facility] 4 MEDICAL CARMEN CHEST 2 IMAGING VIEWS ASS FRONTAL&L ATERAL ECG 95176 SCOTT CHAVEZ JR ROUTINE 4 DWI DWI ECG W/LEAST 12 LDS I&R ONLY BLOOD 86556 [place] [facility] COUNT 4 [facility] COMPLETE INC INC AUTO&AUTO DIFRNTL WBC BASIC 16863 [place] [facility] METABOLIC 4 [facility] PANEL INC INC CALCIUM TOTAL RADIOLOGI 17136 [place] [facility] C 4 [facility] EXAMINATI INC INC [place] [address] [place] [facility] TROPONIN 4 [facility] QUANTITAT INC INC SABIHA ECG 66710 [place] [facility] ROUTINE 4 [facility] ECG INC INC W/LEAST 12 LDS TRCG ONLY W/O I&R ECG 65037 [place] [facility] ROUTINE 4 [facility] ECG INC INC W/LEAST 12 LDS TRCG ONLY W/O I&R FIBRIN 79770 [place] [facility] DGRADJ 4 [facility] PRODUCTS INC INC D-DIMER QUAL/[place] [address] [place] [facility] TROPONIN 4 [facility] QUANTITAT INC INC SABIHA CREATINE 40796 [place] [facility] KINASE 4 [facility] TOTAL INC INC CREATINE 15403 [place] [facility] KINASE MB 4 [facility] FRACTION INC INC ONLY COMPREHEN 40131 [place] TALLEYON SIVE 4 [facility] METABOLIC INC INC PANEL BLOOD 01345 [place] [facility] COUNT 4 [facility] COMPLETE INC INC AUTO&AUTO DIFRNTL WBC RADIOLOGI 57806 [facility] C EXAM 4 [facility] CHEST 2 INC INC VIEWS FRONTAL&L ATERAL ECG 06031 BESSON BESSON ROUTINE 4 DOMINIQUE DOMINIQUE ECG W/LEAST 12 LDS I&R ONLY HEMOGLOBI 52798 COMBINED COMBINED N 4 PHYSICIAN PHYSICIAN GLYCOSYLA S LA S LA LANEY A1C LIPID 33186 COMBINED COMBINED PANEL 4 PHYSICIAN PHYSICIAN S LA S LA GENERAL 91259 COMBINED COMBINED HEALTH 4 PHYSICIAN PHYSICIAN PANEL S LA S LA 25 64908 COMBINED COMBINED HYDROXY 4 PHYSICIAN PHYSICIAN INCLUDES S LA S LA FRACTIONS IF PERFORMED CYANOCOBA 28677 COMBINED COMBINED LYUBOV 4 PHYSICIAN PHYSICIAN VITAMIN S LA S LA B-12 SEDIMENTA 88880 COMBINED COMBINED TION RATE 4 PHYSICIAN PHYSICIAN [place] [address] COMBINED COMBINED FREE 4 PHYSICIAN PHYSICIAN THYROXINE S LA S LA COMPUTER- 49898 [place] [facility] AIDED 4 [facility] DETECTION INC INC SCREENING MAMMOGRAP HY SCREENING G0202 [place] [facility] 4 [facility] MAMMOGRAP INC INC HY WILBERT INCL CAD WHEN PERFORMD LIPID 87535 [facility] PANEL 4 DIAGNOSTI DIAGNOSTI CS CS IIV3 25870 DHS/CO [place] VACCINE 9 [facility] VIRUS 0.5 BANK ACCT ML DOSAGE IM USE RADEX 40623 KIMBERLEE SANCHEZEY, SPINE 9 [facility] S LUMBSCR CORPORATI COMPL ON W/BENDING VIEWS MIN 6 RADIOLOGI 14175 Cliff [facility] MAX P EXAMINATI IMAGING ON PELVIS ASSOCIATE 1/2 S VIEWS RADEX HIP 06746 Georgi CRAIG UNILATERA IMAGING L ASSOCIATE COMPLETE S MINIMUM 2 VIEWS RADEX 68917 [place] [facility] SPINE 9 [facility] LUMBOSACR INC INC AL MINIMUM 4 VIEWS Encounters Encounter Start End Date Code Location Performer Type Date OFFICE 97307 [facility] 7 7 [facility] T VISIT INTERNAL 15 MED MINUTES EMERGENCY 31249 [facility] SANCHEZEY DEPT 7 7 PHYSICIAN VISIT S, [facility] HIGH SEVERITY& THREAT [facility] OFFICE 02792 [place] [facility] 7 7 [facility] T VISIT 5 INC MINUTES [facility] [place] [facility] OUTPATIEN INC T EMERGENCY 25817 [facility] 7 [facility] VISIT S, [facility] HIGH SEVERITY& THREAT [facility] [place] [facility] OUTPATIEN INC T EMERGENCY 13742 [place] 7 7 [facility] DEPARTMEN INC T VISIT MODERATE SEVERITY [facility] OFF[facility] 23296 [place] ARSLAN OUTPATIEN 7 7 [facility] T VISIT INTERNAL 15 MED MINUTES [facility] 7 [facility]PAT[facility]EN [facility] OFFICE 84745 [place] CELI OUTPATIEN 7 7 [facility] T VISIT HOSPITAL 10 P MINUTES OFFICE 93345 [facility]ES OUTPATIEN 7 7 HEALTH T VISIT MEDICAL 25 GROUP MINUTES [facility] [place] [facility] OUTPATIEN INC T OFFICE 26109 [place] [facility] 7 7 [facility] T VISIT INC 10 MINUTES OFFICE 55867 YVETTE AVINA OUTPATIEN 7 7 MD RHIANNON, T VISIT PSC 15 MINUTES OFFICE 78958 [place] OUTPATIEN 7 7 [facility] T VISIT 5 INC MINUTES [facility] [place] [facility] OUTPATIEN INC T OFFICE 75773 [place] WEISS JR OUTPATIEN 7 7 [facility] T VISIT HOSPITAL 10 P MINUTES EMERGENCY 10049 SMILEY PASCUAL DEPT 7 7 PHYSICIAN VISIT S, PLLC HIGH SEVERITY& THREAT FUNCJ EMERGENCY 54317 [place] 7 7 [facility] DEPARTMEN INC T VISIT LOW/MODER SEVERITY [facility] [place] [facility] OUTPATIEN INC T [facility] [place] [facility] OUTPATIEN INC T OFFICE 00131 [place] CELI OUTPATIEN 7 7 [facility] T VISIT HOSPITAL 10 P MINUTES [facility] [place] [facility] 7 [facility] OUTPATIEN INC T EMERGENCY 09493 S[facility] SOTOMAYOR 7 7 PHYSICIAN JR [facility], [facility] HIGH/URGE NT SEVERITY [facility] [place] [facility] OUTPATIEN INC T OFFICE 08787 [place] GIOVANI OUTPATIEN 7 7 PET[facility] T VISIT INTERNAL 15 MED MINUTES PERIODIC 92809 [facility] HUMPHREY PREVENTIV 7 7 PHYSICIAN E MED EST S GROUP PATIENT [id number] [facility] [place] - 7 7 [facility] OUTPATIEN INC T OFFICE 61416 [facility] MAEGAN OUTPATIEN 7 7 PHYSICIAN T VISIT S GROUP 15 MINUTES EMERGENCY 60292 [facility] JAQUEZ 7 7 PHYSICIAN [facility]MEN S, [facility] HIGH/URGE NT SEVERITY [facility] [place] [facility] OUTPATIEN INC T OFFICE 46807 [place] CELI OUTPATIEN 7 7 [facility] T VISIT HOSPITAL 10 P MINUTES OFFICE 35398 [place] [facility]IEN 7 7 [facility] T VISIT INC 10 MINUTES [facility] [place] [facility] OUTPATIEN INC T [facility] [place] [facility] OUTPATIEN INC T OFFICE 12509 [facility] KIMBERLY OUTPATIEN 7 7 PHYSICIAN T VISIT S GROUP 25 MINUTES [facility] [place] [facility] OUTPATIEN INC T [facility] [place] [facility] OUTPATIEN INC T OFFICE 56239 [facility] ISSA OUTPATIEN 7 7 PHYSICIAN T VISIT S GROUP 10 MINUTES OFFICE 72458 YVETTE MARSHPERCY OUTPATIEN 7 7 MD RHIANNON, T NEW 30 PSC MINUTES OFFICE 16120 [place] [facility] 7 7 [facility] T VISIT 5 INC MINUTES [facility] [place] [facility] OUTPATIEN INC T EMERGENCY 00652 SMILEY SOTOMAYOR 7 7 PHYSICIAN JR DEPARTMEN S, PLLC T VISIT HIGH/URGE NT SEVERITY [facility] [place] [facility] 7 7 [facility] OUTPATIEN INC [facility] [place] - 7 7 [facility] OUTPATIEN INC T OFFICE 96457 [facility] KIMBERLY OUTPATIEN 7 7 PHYSICIAN T VISIT S GROUP 25 MINUTES OFFICE 35438 [place] MICHISON OUTPATIEN 7 7 [facility] T VISIT INTERNAL 15 MED MINUTES OFFICE 62508 [facility] KIMBERLY OUTPATIEN 7 7 PHYSICIAN T VISIT S GROUP 25 MINUTES [facility] [place] [facility] OUTPATIEN INC T OFFICE 36860 [facility] OUT[facility] 7 7 [place] T VISIT ORTHOPAED 15 IC MINUTES EMERGENCY 42931 SMILEY ARMIJO DEPT 7 7 PHYSICIAN VISIT S, PLLC HIGH SEVERITY& THREAT FUNCJ EMERGENCY 94768 [place] 7 7 [facility] DEPARTMEN INC T VISIT HIGH/URGE NT SEVERITY [facility] [place] [facility] 7 7 [facility] OUTPATIEN INC T OFFICE 30493 [place] GIOVANI OUTPATIEN 7 7 PETRO[facility] T VISIT INTERNAL 25 MED MINUTES OFFICE 80863 [place] OUT[facility]IEN 7 7 [facility] T VISIT 5 INC MINUTES [facility] [place] [facility] 7 7 [facility] OUTPATIEN INC T OFFICE 53951 [facility] 7 7 [place] T NEW 30 ORTHOPAED MINUTES IC EMERGENCY 56317 [place] 7 7 [facility] T VISIT LOW/MODER SEVERITY EMERGENCY 03147 S[facility] JIMENEZ DEPT 7 7 PHYSICIAN U VISIT [facility] HIGH SEVERITY& THREAT [facility] [place] [facility] 7 7 [facility] OUTPATIEN INC T [facility] [place] [facility] 7 7 [facility] T [facility] [place] [facility] T EMERGENCY 81035 [place] 7 7 [facility] DEPARTMEN [facility] T VISIT MODERATE SEVERITY [facility] [place] [facility] 7 7 [facility] T EMERGENCY 92562 [place] 7 7 [facility] T VISIT LOW/MODER SEVERITY EMERGENCY 93921 SMILEY PASCUAL 7 7 PHYSICIAN DEPARTMEN S, [facility] T VISIT HIGH/URGE NT SEVERITY OFFICE 09945 [place] CHAND 7 7 [facility] T VISIT 5 INC MINUTES [facility] [place] [facility] 7 7 [facility] OUTPATIEN INC T OFFICE 63707 [place] RICHY OUTPATIEN 7 7 [facility] T VISIT INTERNAL 15 MED MINUTES EMERGENCY 70425 M[facility] 7 7 [facility]PARTMEN [facility] T VISIT LOW/MODER SEVERITY [facility] [place] [facility] 09561 [facility] 7 7 [facility] [facility] EMERGENCY T VISIT PHYS MODERATE SEVERITY [facility] [place] [facility] 7 7 [facility] OUTPATIEN INC T OFFICE 86848 [place] [facility] 7 7 [facility] T VISIT 5 INC MINUTES OFFICE 55933 [place] [facility] OUT[facility] 7 7 PETRO[facility] T VISIT INTERNAL 15 MED MINUTES EMERGENCY 08565 SMILEY MEDEROS 7 7 PHYSICIAN [facility] T VISIT MODERATE SEVERITY [facility] [place] [facility] OUTPATIEN INC T OFFICE 12326 [place] [facility] 7 7 [facility] T VISIT 5 INC MINUTES OFFICE 47607 [place] [facility] 7 7 [facility] T VISIT 5 INC MINUTES [facility] [place] [facility] OUTPATIEN INC T OFFICE 55568 [place] OUT[facility]IEN 7 7 [facility] T NEW 10 INC MINUTES [facility] [place] [facility] 7 7 [facility] OUTPATIEN INC T OFFICE 96671 [place] [facility] OUT[facility] 7 7 [facility] T VISIT INTERNAL 25 MED MINUTES [facility] 51437 [place] JASSO OUTPATIEN 7 7 T VISIT 25 MINUTES [facility] [place] [facility] 7 7 [facility] OUTPATIEN INC T EMERGENCY 11424 [place] 7 7 [facility] T VISIT LIMITED/M INOR PROB EMERGENCY 29709 [place] 7 7 [facility] T VISIT LOW/MODER SEVERITY [facility] [place] [facility] 7 7 [facility] OUTPATIEN INC T EMERGENCY 30713 [place] 7 7 [facility] T VISIT LIMITED/M INOR PROB [facility] [place] - 7 7 [facility] OUTPATIEN INC T EMERGENCY 67059 SMILEY PASCUAL 7 7 PHYSICIAN [facility] Barry [facility] T VISIT MODERATE SEVERITY [facility] - 7 7 [facility]ALTH [facility]PATIEN [facility] - 7 7 HEALTH OUTPATIEN [facility] EMERGENCY 17651 SMILEY SOTOMAYOR, 6 6 PHYSICIAN [facility] T VISIT HIGH/URGE NT SEVERITY [facility] [place] [facility] 6 6 [facility] T OFFICE 22008 [place] [facility] T VISIT [facility]NAL 15 MED MINUTES [facility] [place] [facility] 6 6 [facility] T EMERGENCY 98847 [place] 6 6 [facility] T VISIT MODERATE SEVERITY EMERGENCY 35145 SMI[facility] JAQUEZ 6 6 PHYSICIAN [facility] Barry [facility] T VISIT HIGH/URGE NT SEVERITY EMERGENCY 00100 S[facility] ARMIJO 6 6 [facility] T VISIT MODERATE SEVERITY EMERGENCY 36547 [place] 6 6 [facility] T VISIT LOW/MODER SEVERITY [facility] [place] [facility] 6 6 [facility] T EMERGENCY 76417 SMI[facility] PASCUAL 6 6 PHYSICIAN [facility] T VISIT MODERATE SEVERITY OFFICE 55650 SCIFRES SCIFRES OUTPATIEN 6 6 ANG ANG T VISIT 10 MINUTES OFFICE 78990 [place] ARSLAN OUTPATIEN 6 6 [facility] OFELIA T VISIT INTERNAL 15 MED MINUTES OFFICE 96929 WENDY SANCHEZ MICHELLE OUTPATIEN 6 6 T VISIT BARIATRIC 25 SURGICAL MINUTES [facility] [place] [facility] 6 6 [facility] OUTPATIEN INC T EMERGENCY 14300 SMILEY SOTOMAYOR, 6 6 PHYSICIAN JR BILLINGS [facility] S, [facility] T VISIT HIGH/URGE NT SEVERITY EMERGENCY 82660 [place] 6 6 [facility] DE[facility] T VISIT LOW/MODER SEVERITY EMERGENCY 00906 SMILEY PASCUAL 6 6 PHYSICIAN BRYCE [facility] S, [facility] T VISIT MODERATE SEVERITY OFFICE 50504 [facility] FALLUJI OUTPATIEN 6 6 [facility] N[facility]O T VISIT MEDICAL 15 G MINUTES [facility] [place] [facility] T OFFICE 21743 [facility] HUMPHREY OUTPATIEN 6 6 PHYSICIAN MEAGAN T VISIT S GROUP 15 MINUTES OFFICE 87050 [facility] ISSA OUTPATIEN 6 6 PHYSICIAN JARON T VISIT S GROUP 10 MINUTES [facility] [place] [facility] [place] [facility] [place] [facility] T EMERGENCY 07995 [place] 6 6 [facility] DEPART[facility] T VISIT MODERATE SEVERITY OFFICE 52385 [facility] ISSA OUTPATIEN 6 6 PHYSICIAN JARON T VISIT S GROUP 10 MINUTES OFFICE 12457 [facility]ATHOLICPHANI ANDRES OUTPATIEN 6 6 [facility] IV HEN T VISIT MEDICAL 15 GROUP MINUTES OFFICE 74855 [place] CARTAGENAONE OUTPATIEN 6 6 [facility] T VISIT HOSPITAL 10 P MINUTES OFFICE 44669 [facility] R[facility] TRI OUTPATIEN 6 6 GROUND T VISIT FAMILY 25 CLINI MINUTES OFFICE 28023 [facility]ISIT 5 HLTH DEPT HLTH DEPT MINUTES [facility] EMERGENCY 90402 SMILEY ARMIJO 6 6 PHYSICIAN TAQUERIA DALE T VISIT HIGH/URGE NT SEVERITY EMERGENCY 11147 [place] 6 6 [facility] T VISIT LOW/MODER [facility]VERITY [facility] [place] [facility] T OFFICE 68513 [facility] DEPT HLTH DEPT 15 JAZZ [facility] [place] [facility] T OFFICE 32427 [facility] KIMBERLY OUTPATIEN 6 6 PHYSICIAN MAT T VISIT S GROUP 25 MINUTES OFFICE 11389 [facility] SANCHEZ OUTPATIEN 6 6 T VISIT BARIATRIC 25 SURGICAL MINUTES OFFICE 66735 [facility] PHYSICIAN JULIUS Ng NEW 45 S GROUP MINUTES EMERGENCY 12979 SMILEY PASCUAL 6 6 PHYSICIAN TAQUERIA WHEELER T VISIT MODERATE SEVERITY EMERGENCY 62297 SMI[facility] JIMENEZ 6 6 PHYSICIAN TAQUERIA HAWK T VISIT HIGH/URGE NT SEVERITY [facility] [place] [facility] 6 6 [facility] T OFFICE 67302 ALLERGY ROSENTHAL MAR OUTPATIEN 6 6 PARTNERS T VISIT OF [place] 40 CO MINUTES [facility] [place] [facility] T EMERGENCY 45297 SMILEY PASCUAL 6 6 PHYSICIAN TAQUERIA WHEELER T VISIT MODERATE SEVERITY EMERGENCY 47306 [place] 6 6 [facility] DE[facility] T VISIT LOW/MODER SEVERITY OFFICE 57500 [facility] OUT[facility] 6 6 N T VISIT NEUROLOGY 10 MINUTES [facility] [place] [facility] 6 6 [facility] OUTPATI[facility] INC T EMERGENCY 44136 SMILEY SOTOMAYOR, 6 6 PHYSICIAN JR MANUELITO FUENTESMEN [facility] T VISIT MODERATE SEVERITY [facility] [place] [facility] 6 6 [facility] OUTPATIEN INC T EMERGENCY 45751 SMILEY PASCUAL DEPT 6 6 PHYSICIAN BRYCE VISIT S, PLLC HIGH SEVERITY& THREAT FUNCJ OFFICE 63586 [place] CELI OUTPATI 6 6 [facility] VISIT HOSPITAL 10 P MINUTES EMERGENCY 68217 SMILEY SOTOMAYOR 6 6 PHYSICIAN JR BILLINGS DEPARTMEN S, PLLC T VISIT HIGH/URGE NT SEVERITY [facility] [place] [facility] 6 6 [facility] OUTPATIEN [facility] T EMERGENCY 06804 [place] 6 6 [facility] DEPARTMEN INC T VISIT MODERATE SEVERITY OFFICE 50733 [place] WEISS JR OUTPATIEN 6 6 [facility] T VISIT HOSPITAL 10 P MINUTES EMERGENCY 51138 SMILEY PASCUAL DEPT 6 6 PHYSICIAN BRYCE VISIT S, PLLC HIGH SEVERITY& THREAT FUNCJ OFFICE 73282 ALLERGY ROSENTHAL MAR CONSULTAT 6 6 PARTNERS [facility] [place] NEW/ESTAB CO PATIENT 60 MIN EMERGENCY 83212 SMILEY PASCUAL 6 6 PHYSICIAN [facility] DEPARTMEN [facility] PLL[facility] T VISIT MODERATE SEVERITY EMERGENCY 74364 SMILEY PASCUAL DEPT 6 6 PHYSICIAN [facility] VISIT S, [facility] HIGH SEVERITY& THREAT FUNCJ EMERGENCY 44015 SMILEY HUNT 6 6 PHYSICIAN DEPARTMEN S, PLLC T VISIT LOW/MODER SEVERITY OFFICE 24086 [facility] OUTPATIEN 6 6 PHYSICIAN T VISIT S GROUP 25 MINUTES [facility] [place] [facility] T EMERGENCY 71332 SMILEY PASCUAL 6 6 PHYSICIAN [facility]CE DEPARTMEN S, PLL[facility] T VISIT MODERATE SEVERITY EMERGENCY 04672 [place] 6 6 [facility] DE[facility] T VISIT LOW/MODER SEVERITY [facility] [place] [facility] 6 6 [facility] OUT[facility] INC [facility] - [facility] - 6 6 N OUTPATIEN COMMUNTIY T HOSPITA EMERGENCY 64932 SMILEY ARMIJO DEPT 6 6 PHYSICIAN CASANDRA VISIT S, PLLC HIGH SEVERITY& THREAT FUNCJ OFFICE 97400 PENDING SALE TO [facility] OUT[facility] 6 6 PHYSICIAN JARON T NEW 20 S GROUP MINUTES EMERGENCY 59660 SMILEY PASCUAL 6 6 PHYSICIAN BRYCE DEPARTMEN S, PLLC T VISIT HIGH/URGE NT SEVERITY HOSPITAL [facility] - 6 6 N OUTPATIEN COMMUNTIY HOSPITA OFFICE 49306 [facility] 6 6 T VISIT BARIATRIC 25 SURGICAL MINUTES EMERGENCY 79400 SMILEY PASCUAL DEPT 6 6 PHYSICIAN BRYCE VISIT S, PLLC HIGH SEVERITY& THREAT FUNJ EMERGENCY 29019 [facility] 6 6 EMERGENCY HOW DEPARTMEN PHYS PSC T VISIT MODERATE SEVERITY [facility]OSP[facility] - 6 6 HEALTH OUTPATIEN [facility] [place] - 6 6 [facility] OUTPATIEN INC T EMERGENCY 31340 SMILEY BAGLEY DEPT 6 6 PHYSICIAN FOR VISIT S, PLLC HIGH SEVERITY& THREAT FUNCJ EMERGENCY 63026 [place] 6 6 [facility] DEPARTMEN INC T VISIT LOW/MODER SEVERITY [facility] [place] - 6 6 [facility] OUTPATIEN INC T EMERGENCY 22139 SMILEY PASCUAL 6 6 PHYSICIAN BRYCE DEPARTMEN S, PLLC T VISIT HIGH/URGE NT SEVERITY EMERGENCY 76532 SMILEY SUGGS [facility] 6 6 PHYSICIAN DEPARTMEN S, PLLC T VISIT HIGH/URGE NT SEVERITY [facility]OSPITAL [facility] - 6 6 [facility] [facility] 6 6 [place] JOSE ANGEL DEPARTMEN EMERGENCY T VISIT PHYS HIGH/URGE NT SEVERITY [facility] [place] - 6 6 [facility] OUTPATIEN INC T EMERGENCY 66429 [place] DEPT 6 6 MEM [facility] VISIT INC HIGH SEVERITY& THREAT FUNCJ OFFICE 33527 [facility] CONSULTAT 6 6 N ION NEUROLOGY NEW/ESTAB PATIENT 60 MIN OFFICE 90751 [facility] OUT[facility] 6 6 MATTI MATTI T NEW 30 MINUTES OFFICE 40839 SCALF LEI SCALF LEI OUTPATIEN 6 6 T VISIT 25 MINUTES EMERGENCY 24309 [facility] DEPT 6 6 PHYSICIAN BRYCE VISIT S, PLLC HIGH SEVERITY& THREAT FUNCJ OFFICE 47759 [place] A[facility] OUTPATIEN 6 6 [facility] T VISIT INTERNAL 15 MED MINUTES [facility]OSP[facility] - 6 6 HEALTH OUTPATIEN [facility] [place] - 6 6 [facility] OUTPATIEN INC T EMERGENCY 79694 [facility] DEPT 6 6 PHYSICIAN BRYCE VISIT S, PLLC HIGH SEVERITY& THREAT FUNCJ OFFICE 25381 [facility] OUTPATIEN 6 6 HEALTH KADIE T VISIT MEDICAL 15 GROUP MINUTES OFFICE 82006 [facility] SANCHEZ MICHELLE OUTPATIEN 6 6 T VISIT BARIATRIC 25 SURGICAL MINUTES [facility] [place] - 6 6 [facility] OUTPATIEN INC T OFFICE 09890 [place] [facility] OUTPATI[facility] 6 6 [facility] OF[facility] T VISIT INTERNAL 15 MED MINUTES INITIAL 51709 [facility] PREVENTIV 6 6 PHYSICIAN E S GROUP MEDICINE NEW PATIENT 40-64YRS OFFICE 55416 [facility]ANI [facility] OUTPATIEN 6 6 PRIMARY KADIE T VISIT CARE OF 15 ABISAI [facility] [place] - 6 6 [facility] OUTPATIEN INC T OFFICE 52189 [place] [facility] OUTPATIEN 6 6 PETROLEUM OFELIA T VISIT INTERNAL 15 MED [facility] [place] [facility] 6 6 [facility] OUTPATIEN INC T OFFICE 51033 WENDY SANCHEZ MICHELLE OUTPATIEN 5 5 T VISIT BARIATRIC 25 SURGICAL MINUTES OFFICE 20319 ATKINS ATKINS OUTPATIEN 5 5 TRA TRA T VISIT 25 MINUTES PERIODIC 78119 [facility] EST HLTH DEPT HL DEPT PATIENT JAZZ JAZZ 40-64YRS OFFICE 07391 WENDY SANCHEZ MICHELLE OUTPATIEN 5 5 T VISIT BARIATRIC 15 SURGICAL [facility] [place] - 5 5 [facility] OUTPATIEN INC T OFFICE 20344 [place] ARSLAN OUTPATIEN 5 5 [facility] OFELIA T NEW 30 INTERNAL MINUTES [facility] [place] - 5 5 [facility] OUTPATIEN INC T OFFICE 69440 [facility] PETTEY OUTPATIEN 5 5 PHYSICIAN JAM T VISIT S GROUP 15 MINUTES OFFICE 61541 GASTROENT CASE JUS OUTPATIEN 5 5 EROLOGY T VISIT AND 15 HEPATOL MINUTES OFFICE 57631 [facility] OUTPATIEN 5 5 HEALTH KADIE T VISIT MEDICAL 10 GROUP [facility] - 5 5 N [facility] [place] [facility] OUTPATIEN INC T EMERGENCY 14627 [place] 5 5 [facility] HIGH/URGE NT SEVERITY [facility] [place] - 5 5 N OUTPATIEN COMMUNTIY [facility] [place] - 5 5 [facility] OUTPATIEN INC T OFFICE 14955 GASTROENT CASE JUS OUTPATIEN 5 5 EROLOGY T NEW 45 AND MINUTES HEPATOL EMERGENCY 69898 [place] 5 5 [facility] T VISIT LOW/MODER SEVERITY [facility] [place] - 5 5 [facility]EN [facility] T OFFICE 56650 DANIEL SANCHEZ OUTPATIEN 5 5 [facility] T VISIT 15 MINUTES EMERGENCY 20853 [place] SOTOMAYOR, 5 5 [facility] T VISIT P MODERATE SEVERITY [facility] [place] - 5 5 [facility] OUT[facility]EN [facility] N OUTPATIEN COMMUNTIY [facility] 5 5 N OUTPATIEN [facility] [place] [facility] 5 5 [facility] [place] - 5 5 [facility] OUTPATIEN INC T OFFICE 86521 WENDY MARTINEZ OUTPATIEN 5 5 T VISIT BARIATRIC 40 SURGICAL MINUTES OFFICE 98470 DANIEL SANCHEZ OUTPATIEN 5 5 HU[facility] HUBER T VISIT 15 MINUTES [facility]OS[facility] [place] - 5 5 [facility] T EMERGENCY 19284 [place] 5 5 [facility] T VISIT LOW/MODER SEVERITY [facility] [place] - 5 5 [facility] OUTPATIEN [facility] [place] - 5 5 N OUTPATIEN COMMUNTIY [facility] [place] - 5 5 [facility]PATIEN INC T [facility] [place] - 5 5 [facility] OUTPATIEN INC T OFFICE 20177 [place] ALATORRE OUTPATIEN [address] MINUTES P OFFICE 72249 MELANIE NOGUEIRA OUTPATIEN 5 5 MEDICAL JAM T VISIT SERV 15 FOUNDATIO MINUTES N OFFICE 98050 [place] WEISS JR OUTPATIEN [address] MINUTES P OFFICE 58753 [facility] PETTEMago OUTPATIEN 5 5 [facility]YSICIAN [facility] OFFICE 95142 [facility]LINPENDING S[facility] 5 5 [facility] MEDICAL NEW/ESTAB G PATIENT 60 MIN OFFICE 15982 DANIEL CHAND 5 5 HUBER HUBER T VISIT 15 MINUTES EMERGENCY 74227 [place] 5 5 [facility] T VISIT HIGH/URGE NT SEVERITY EMERGENCY 64327 [place] ESCOTO 5 5 [facility] T VISIT P MODERATE SEVERITY [facility] [place] - 5 5 [facility] OUTPATI[facility] INC [facility] [place] - 5 5 [facility] OUT[facility] INC T EMERGENCY 09434 [place] 5 5 [facility] T VISIT HIGH/URGE NT SEVERITY OFFICE 61221 DANIEL CHAND 5 5 [facility] T VISIT 15 MINUTES OFFICE 64234 DANIEL CHAND 4 4 [facility] T VISIT 15 MINUTES [facility] [place] 4 [facility] OUTPATIEN INC T EMERGENCY 81097 [place] WINTERS 4 4 [facility] T VISIT P LOW/MODER SEVERITY OFFICE 49676 DANIEL CHAND 4 4 HU[facility] HUBER T VISIT 15 MINUTES [facility] [place] - 4 4 [facility] OUTPATIEN INC T EMERGENCY 28718 CHRIS PALACIO DEPT 4 4 [place] VISIT EMERGENCY HIGH PHYS SEVERITY& THREAT [facility] N [facility] T HOSPITA OFFICE 66593 DANIEL CHAND 4 4 HUBER HUBER T VISIT 15 MINUTES OFFICE 16022 MONALISA [facility] CONSULTAT 4 4 KADIE ION CARDIOLOG NEW/ESTAB Y AT CENT PATIENT 40 MIN [facility] [place] - 4 4 [facility] T OFFICE 34105 [place] NOGUEIRA CONSULTAT 4 4 MEDICAL JAM ION SERV NEW/ESTAB FOUNDATIO PATIENT N 60 MIN [facility] [place] - 4 4 [facility] T OFFICE 60672 DANIEL CHAND 4 4 HUBER HUBER T VISIT 15 MINUTES OFFICE 32357 ATKINS ATKINS CONSULTAT 4 4 TRA TRA ION NEW/ESTAB PATIENT 40 MIN OFFICE 22807 [facility] T VISIT MEDICAL 15 G MINUTES [facility] [place] [facility] 4 4 [facility] OUTPATIEN INC T OFFICE 06576 [facility] FALL[facility] OUTPATIEN 4 4 [facility] T NEW 30 MEDICAL MINUTES G EMERGENCY 65364 CHRIS LEAHY DEPT 4 4 [place] MOH VISIT EMERGENCY HIGH PHYSI SEVERITY& THREAT [facility] [place] - 4 4 [facility] OUTPATIEN INC T EMERGENCY 34022 HORTENCIA HGUHES DEPT 4 4 VISIT HIGH SEVERITY& THREAT FUN EMERGENCY 03708 [place] 4 4 [facility] DEPARTMEN INC T VISIT MODERATE SEVERITY EMERGENCY 93806 ANKUR PASCUAL DEPT 4 4 BRYCE BRYCE VISIT HIGH SEVERITY& THREAT FUNCJ EMERGENCY 83788 [place] 4 4 [facility] DEPART[facility] INC T VISIT HIGH/URGE NT SEVERITY OFFICE 47455 DANIEL CHAND 4 4 HUBER HUBER T VISIT 15 MINUTES [facility] [place] - 4 4 [facility] OUTPATIEN INC T OFFICE 56067 SANCHEZ MICHELLE SANCHEZ MICHELLE CONSULTAT 4 4 ION NEW/ESTAB PATIENT 80 MIN OFFICE 72315 DANIEL CHAND 4 4 HUBER HUBER T NEW 30 MINUTES [facility] [place] - 4 4 [facility] OUTPATIEN INC T OFFICE 37703 MAEGAN CHAND 4 4 JARON JARON T VISIT 5 MINUTES OFFICE 53896 MAEGAN CHAND 4 4 JARON JARON T NEW 30 MINUTES Emergency PATRIC Burnett MD (ER) 4 16:35 4 17:31 [facility] Emergency PATRIC BURNETT (ER) 3 16:45 3 18:19 [facility] EMERGENCY 59931 KIMBERLEE PASCUAL, 9 9 [facility] T VISIT ON HIGH/URGE NT SEVERITY EMERGENCY 74955 [place] 9 9 [facility] DEPARTMEN INC T VISIT LOW/MODER SEVERITY [facility] [place] - 9 9 [facility] OUT[facility]IEN INC T
--- OUTSIDE RECORDS SUMMARY | 2017-07-08 21:37 | External Medical Summary Rpt ---
Author Author , YENNY Organization [employer] Address Unknown Phone [email or web address] Care Team Providers Care Train Crew Member Name Role Phone ALFARIS MOH, ALFARIS Unavailable Unavailable MOH [facility] Unavailable [place]available [place], [facility] [place] YVETTE JURADO MD, PSC, Unavailable Unavailable YVETTE JURADO MD, PSC ARNOLD HUBER, ARNOLD Unavailable Unavailable HUBER ARNOLD HUBER, ARNOLD Unavailable Unavailable HUBER ATKINS TRA, ATKINS Unavailable Unavailable TRA ATKINS TRA, ATKINS Unavailable Unavailable TRA [facility] Unavailable Unavailable [place], [facility] Unavailable Unavailable MEDICAL GROUP, [facility] Un[facility] Unavailable [facility], [facility] Unavailable Unavailable OF [facility], [facility] BEMICHAEL, BEINEKE Unavailable Unavailable BEINEKE D, BEINEKE D Unavailable Unavailable BEINEKE CARMEN, BEINEKE Unavailable Unavailable CARMEN DUMONT HOW, DUMONT Unavailable Unavailable HOW BESSON, BESSON Unavailable Unavailable BESSON DOMINIQUE, BESSON Unavailable Unavailable DOMINIQUE [facility] Unavailable Unavailable [facility], [facility] BOLIEK KADIE, BOLIEK Unavailable Unavailable KADIE CERRATO, CERRATO Unavailable Unavailable CERRATO ALL, CERRATO ALL Unavailable Unavailable [facility] Unavailable Unavailable [facility] Unavailable Unavailable SERVICE, [facility] Unavailable Unavailable SERVICE, [facility] BUX, BUX Unavailable Unavailable SVITLANA KILO, SVITLANA Unavailable Unavailable KILO CASE JUS, CASE JUS Unavailable Unavailable [facility] Unavailable Unavailable [facility]YS [facility], [facility] CHESTNUT, CHESTNUT Unavailable Unavailable HUMPHREY, HUMPHREY Unavailable Unavailable HUMPHREY MEAGAN, HUMPHREY Unavailable Unavailable [facility], Unavailable Unavailable [facility] CN[facility] [...] AND Unavailable Unavailable [facility], [facility] Unavailable Unavailable HOSPITA, [facility] Unavailable [facility]available H[facility]PITA, [facility] RODRIGUEZ TRI, RODRIGUEZ TRI Unavailable Unavailable ANDREWS RHO, ANDREWS Unavailable Unavailable [facility] Un[facility] Unavailable [facility], [facility] Un[facility] Unavailable INC, [facility] Unavailable [facility]available [facility]PITAL P, [facility] BOYER CHRISTEL, BOYER CHRISTEL Unavailable Unavailable BOYER CHRISTEL, BOYER CHRISTEL Unavailable Unavailable [facility], Unavailable Unavailable [facility] JAQUEZ, JAQUEZ Unavailable Unavailable RODERICK HALEY, VAUGHN Unavailable Unavailable BRYAN LONDONO Unavailable Unavailable ILUYOMADE ROT, Unavailable Unavailable [facility] FELICIA DUARTE Unavailable Unavailable [facility] Unavailable Unavailable GROUP PS, [facility], [facility] Unavailable Unavailable MEDICAL G, [facility] MEDICAL G KRASNOPOLSKY LAUREN, Unavailable Unavailable KRASNOPOLSKY [...] JR DWI, SCOTT Unavailable Unavailable JR DWI [facility] Unavailable Unavailable SPECIALISTS,, [facility], [facility] Unavailable Unavailable INTERNAL MED, [facility] BRITTNY MART Unavailable Unavailable [...] WALKER FOR, WALKER Unavailable Unavailable FOR [facility] Unavailable Unavailable DEPT [facility] Unavailable Unavailable DEPT [facility], [facility] SANCHEZ, SANCHEZ Unavailable Unavailable SANCHEZ MICHELLE, SANCHEZ MICHELLE Unavailable Unavailable WELLS ELLEN, WELLS ELLEN Unavailable Unavailable WELLS SHA, HORTENCIA PALACIO Unavailable Unavailable ROSENTHAL MAR, ROSENTHAL MAR Unavailable Unavailable SARAH KADIE, SARAH KADIE Unavailable Unavailable Purpose Continuity of Care Document - 01-04-2009 through 2016 Problems Code Diagnosis DOS Provider Status R079 CHEST PAIN 06-04-2017 [facility] UNSPECIFIED [facility] INTERNAL MED [id number] UNS ADVERS 06-01-2017 [facility]BARRAN PHYSICIANS, DRUG/MEDICA PLL MENT INITIAL ENCNTR K219 GASTRO-ESOP 05-19-2017 [facility] SURG DISEASE CTR WITHOUT ESOPHAGITIS R1310 DYSPHAGIA 05-19-2017 [facility] UNSPECIFIED PHYS SURG CTR Z9884 BARIATRIC 05-19-2017 [facility] SURGERY PHYS SURG STATUS CTR J069 ACUTE UPPER 05-05-2017 [facility] RESPIRATORY INC INFECTION UNSPECIFIED R072 PRECORDIAL 05-05-2017 [facility] , E785 HYPERLIPIDE 05-04-2017 [facility] P R0789 OTHER CHEST 05-04-2017 [facility] PILLAI PHYSICIANS, [facility] Z809 FAMILY 05-04-2017 [facility] HISTORY OF [facility] MALIGNANT INC NEOPLASM UNSPECIFIED Z8249 FAMILY HX 05-04-2017 [facility] ISCHEMIC [facility] HRT DZ OT HOSPITAL P DZ CIRC SYSTEM Z833 FAMILY 05-04-2017 [place] HISTORY OF [facility] P MELLITUS P80484 ENCOUNTER 04-30-2017 [facility]UR [place] CARIOVASCUL AR EXAM Y79226 ENCOUNTER 04-30-2017 [facility] [place] LABORATORY EXAM B977 PAPILLOMAVI 04-29-2017 [facility], [facility] OF DZ CLASSIFIED ELSEWHERE E7800 PURE 04-29-2017 [facility] HYPERCHOLES VALLEY TEROLEMIA INTERNAL UNSPECIFIED MED J309 ALLERGIC 04-29-2017 [facility] RHINITIS VAL[facility] UNSPECIFIED INTERNAL MED M797 FIBROMYALGI 04-29-2017 [facility] A VALLEY INTERNAL MED N870 MILD 04-29-2017 [facility], CERV[facility] LLC DYSPLASIA E67684 ATYP SQ 04-29-2017 [facility] CELLS UNDET PHYSICIANS GROUP SIGNIFICANC E CYTOL SMER CERV J95924 CERV HIGH 04-29-2017 [facility] RSK HUMAN PHYSICIANS PAPILLOMAVI GROUP RAJ DNA TEST POS 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 04-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 [facility] OF [facility] ESOPHAGUS [place] M48646 DECREASED 04-09-2017 [place] WHITE BLOOD [facility] CELL COUNT [facility] P UNSPECIFIED K449 DIAPHRAGMAT 04-08-2017 [facility] HERNIA HEALTH W/O MEDICAL OBSTRUCTION GROUP OR GANGRENE R110 NAUSEA 04-08-2017 [facility] R1319 OTHER 04-08-2017 [facility] DYSPHAGIA [facility] MEDICAL GROUP [id number] SPONDYLOSIS 04-07-2017 YVETTE JURADO, W/O , PSC MYELOPATH/R ADICULOPATH Y LUMB RGN M479 SPONDYLOSIS 04-07-2017 [facility] HOSP UNSPECIFIED INC 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-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, PSC RAL DISC DEGEN LUMBAR REGION R202 PARESTHESIA 04-07-2017 [facility] OF SKIN [place] INTERNAL [facility] J320 CHRONIC 04-02-2017 [place] [facility] SINUSITIS INC R350 FREQUENCY 03-27-2017 [facility] R3915 URGENCY OF 03-27-2017 [place] URINATION [facility] P R200 ANESTHESIA 03-25-2017 [facility] SKIN MEDICAL IMAGING ASS R42 DIZZINESS 03-25-2017 [place] [facility] MEDICAL GIDDINESS IMAGING ASS R51 HEADACHE 03-25-2017 [facility] HOSP INC D709 NEUTROPENIA 03-24-2017 [facility] P [id number] ADVERSE EFF 03-22-2017 [facility] SHERIFF, ALEXANDER PLLC DS SYNTH ANALOG INIT ENC [id number] ADVERS EFF 03-22-2017 [facility] RX MEDS MEM [facility] BIO INC SUBSTANCES INIT ENC F02253 OTHER 03-21-2017 [facility] SPONDYLOSIS [facility] LUMBAR INC REGION M5116 INTERVERTEB 03-21-2017 [place] RAL DISC [facility] D/O INC W/RADICULOP ATHY LUMB RGN V83690 ENCOUNTER 03-19-2017 [facility], TESTING LEAD [facility]AM LLC GENERAL RTN W/ABNORMAL FIND Z47734 ENCOUNTER 03-19-2017 [facility] TESTING LEAD EXAM PHYSICIANS GENERAL RTN GROUP W/O ABNORMAL FIND H6982 OTHER SPEC 03-13-2017 [facility] DISORDERS PHYSICIANS EUSTACHIAN GROUP TUBE LT EAR 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 UNRESTIRCT GROUP CONTRALAT SIDE R300 DYSURIA 03-12-2017 [facility] SHERIFF, PLLC M4726 OTH 03-03-2017 [place] SPONDYLOSIS [facility] INC W/RADICULOP ATHY LUMBAR REGION N390 URINARY 03-03-2017 [place] TRACT [facility] INFECTION INC SITE NOT SPECIFIED R911 SOLITARY 02-27-2017 [place] PULMONARY MEDICAL NODULE IMAGING ASS Z09 ENC F/U 02-27-2017 [place] EXAM AFTR MEDICAL CMPL TX OTH IMAGING ASS THAN BLAZE NEOPLSM E669 OBESITY 02-25-2017 [facility] UNSPECIFIED PHYSICIANS GROUP I119 HYPERTENSIV 02-25-2017 [facility] E HEART PHYSICIANS DISEASE GROUP WITHOUT HEART FAILURE R0600 DYSPNEA 02-25-2017 [facility] UNSPECIFIED PHYSICIANS GROUP B07452 PAIN IN 02-18-2017 [facility] LEFT [facility] SHOULDER INC M5440 LUMBAGO 02-18-2017 [facility] WITH [facility] SCIATICA INC UNSPECIFIED SIDE J310 CHRONIC 02-17-2017 [facility] RHINITIS PHYSICIANS GROUP J329 CHRONIC 02-17-2017 [facility] SINUSITIS PHYSICIANS UNSPECIFIED GROUP J342 DEVIATED 02-17-2017 [facility] NASAL PHYSICIANS SEPTUM GROUP M5416 RADICULOPAT 02-17-2017 [facility] HY LUMBAR [facility] REGION INC M545 LOW BACK 02-17-2017 YVETTE JURADO, PAIN , PSC K5900 CONSTIPATIO 02-14-2017 [facility] MEDICAL UNSPECIFIED IMAGING ASS I998 OTHER 02-11-2017 [place] DISORDER OF [facility] INC CIRCULATORY SYSTEM R0602 SHORTNESS 02-11-2017 [place] OF BREATH [facility] INC G8929 OTHER 02-10-2017 [facility] CHRONIC [facility] PAIN INTERNAL MED R002 PALPITATION 01-31-2017 [facility] S PHYSICIANS GROUP R5383 OTHER 01-31-2017 [facility] FATIGUE PHYSICIANS GROUP M792 NEURALGIA 01-27-2017 [facility] AND VALLEY NEURITIS INTERNAL UNSPECIFIED MED I10 ESSENTIAL 01-26-2017 [facility] PRIMARY [facility] HYPERTENSIO INC N M542 CERVICALGIA 01-26-2017 [facility] INC U20300 SPONDYLOSIS 01-22-2017 [place] W/O MEDICAL MYELOPATH/R IMAGING ASS ADICULOPATH Y CERV RGN Q356BIL STRAIN 01-22-2017 [facility] MUSCLE FASC PHYSICIANS, & TENDON PLLC NECK LEVL INIT ENC E559 VITAMIN D 01-21-2017 [facility] DEFICIENCY [facility] UNSPECIFIED INC [id number] STRAIN 01-16-2017 [facility] MUSCLE & PHYSICIANS, TENDON UNS PLLC WALL THORAX INIT ENC X74120 OTHER LONG 01-11-2017 [facility] DRUG THERAPY Z882 ALLERGY 01-11-2017 [facility]US TO [facility] S STATUS Z886 ALLERGY 01-11-2017 [facility] ANALGESIC [facility]PITAL AGENT STATUS Z888 ALLERGY 01-11-2017 [facility] STATUS OTH [facility]UNITY RX MEDS & HOSPITAL BIOLOG [facility] STS H9203 OTALGIA 01-10-2017 [facility] BILATERAL [facility] INC I209 ANGINA 01-10-2017 [facility] PECTORIS [facility] UNSPECIFIED INC R071 CHEST PAIN 01-07-2017 [facility] ON [facility] INTERNAL MED Z720 TOBACCO USE 01-04-2017 [facility] INC L19918 MUSCLE 12-25-2016 [place] SPASM OF MEM H[facility] BACK INC R1013 EPIGASTRIC 12-25-2016 [facility] PAIN [place] INTERNAL MED R4702 DYSPHASIA 12-25-2016 [facility] [place] INTERNAL MED B078 OTHER VIRAL 12-23-2016 [facility] WARTS K30 FUNCTIONAL 12-23-2016 [facility] DYSPEPSIA [facility]ALTH [place] L218 OTHER 12-23-2016 [facility] SEBORRHEIC DERMATITIS L538 OTHER 12-23-2016 [facility] SPECIFIED ERYTHEMATOU S CONDITIONS R208 OTHER 12-23-2016 [facility] DISTURBANCE S OF SKIN SENSATION R238 OTHER SKIN 12-23-2016 [facility] CHANGES K5903 DRUG 12-17-2016 [facility] INDUCED [facility] CONSTIPATIO INC N [id number] ADVERSE 12-17-2016 [facility] EFFECT [facility] OTHER INC OPIOIDS INITIAL ENCOUNTER K910 VOMITING 12-12-2016 [facility] FOLLOWING [facility] GASTROINTES INC TINAL SURGERY R600 LOCALIZED 12-12-2016 [facility] EDEMA [facility]IC[facility], [facility] R609 EDEMA 12-12-2016 [place] UNSPECIFIED [facility] INC M79854 OTHER 12-12-2016 [place] SPECIFIED MEDICAL POSTPROCEDU IMAGING ASS [facility] E6601 MORBID 12-11-2016 [facility] SEVERE HEALTH OBESITY DUE MONALISA TO EXCESS CALORIES N393 STRESS 12-11-2016 [facility] INCONTINENC HEALTH E FEMALE MONALISA MALE Z903 ACQUIRED 12-11-2016 [facility] ABSENCE OF HEALTH STOMACH MONALISA U04186 ENCOUNTER 12-05-2016 [facility] FOR OTHER HEALTH PREPROCEDUR MEDICAL AL GROUP EXAMINATION K210 GASTRO-ESOP 11-22-2016 [facility] HAGEAL PHYSICIANS, REFLUX [facility] DISEASE W/ ESOPHAGITIS K625 HEMORRHAGE 11-19-2016 [place] OF ANUS AND VALLEY RECTUM INTERNAL MED M546 PAIN IN 11-08-2016 [facility] THORACIC PHYSICIANS, SPINE [facility] W65276 PAIN IN 10-14-2016 [place] UNSPECIFIED MEDICAL HIP IMAGING ASS M533 SACROCOCCYG 10-14-2016 [place] EAL MEDICAL DISORDERS IMAGING ASS NEC Z561IRU CONTUSION 10-14-2016 [facility] LOWER BACK PHYSICIANS, & PELVIS PLLC INITIAL ENCOUNTER N1796YR UNSPECIFIED 10-14-2016 [place] INJURY MEDICAL LOWER BACK IMAGING ASS INITIAL ENCOUNTER I2547EG UNSPECIFIED 10-14-2016 [place] INJURY OF MEDICAL PELVIS IMAGING ASS INITIAL ENCOUNTER H3581 RETINAL 10-11-2016 [facility] ANG EDEMA R040 EPISTAXIS 10-10-2016 [facility] VALLEY INTERNAL MED E6609 OTHER 10-08-2016 [facility] OBESITY DUE BARIATRIC TO EXCESS SURGICAL CALORIES R109 UNSPECIFIED 10-08-2016 [facility] ABDOMINAL BARIATRIC PAIN SURGICAL J3489 OTHER 10-06-2016 [facility] SPECIFIED PHYSICIANS, DISORDERS [facility] NOSE AND NASAL SINUSES R05 COUGH 10-06-2016 [place] [facility] R0981 NASAL 10-06-2016 [place] CONGESTION MEDICAL IMAGING ASS A6004 HERPESVIRAL 09-27-2016 [facility] PHYSICIANS VULVOVAGINI GROUP TIS N760 ACUTE 09-27-2016 [facility] VAGINITIS PHYSICIANS GROUP X608E6G CONCUSSION 09-21-2016 [facility] WITHOUT LOC [facility] INITIAL INC ENCOUNTER Z8138WV UNSPECIFIED 09-21-2016 [place] INJURY OF MEDICAL HEAD IMAGING ASS INITIAL ENCOUNTER H6903 PATULOUS 09-19-2016 [facility] JARON EUSTACHIAN TUBE BILATERAL Y45817 UNSPECIFIED 09-18-2016 [facility] PHYSICIANS OBSTRUCTION GROUP EUSTACHIAN TUBE BILAT R590 LOCALIZED 09-04-2016 [place] L[facility]MPH [facility] P Z6834 BODY MASS 09-04-2016 [facility] INDEX BMI HEALTH 34.0-34.9 MEDICAL ADULT GROUP K5909 OTHER 09-03-2016 [facility] CONSTIPATIO GROUND N FAMILY CLINI R112 NAUSEA WITH 09-03-2016 [facility] VOMITING GROUND UNSPECIFIED FAMILY CLINI R748 ABNORMAL 09-03-2016 [facility] LEVELS OF GROUND OTHER SERUM FAMILY ENZYMES CLINI Z111 ENCOUNTER 09-02-2016 [facility] SCREENING [facility] FOR HLTH DEPT RESPIRATORY JAZZ TUBERCULOSI S M549 DORSALGIA 09-01-2016 [facility] UNSPECIFIED PHYSICIANS, PLLC R197 DIARRHEA 09-01-2016 [facility] UNSPECIFIED PHYSICIANS, PLLC [id number] ADVERSE 09-01-2016 [place] EFFECT [facility] P SRI INITIAL ENCOUNTER K65691 UNS PLACE 09-01-2016 [place] UNS NON [facility] P PLACE OF OCCUR EXT R195 OTHER FECAL 08-30-2016 [facility] HOSP ABNORMALITI INC ES Z202 CONTACT 08-30-2016 [facility] WITH DISTRICT EXPOSURE [facility] DEPT INFECT JAZZ SEXUAL MODE TRANSMS Z23 ENCOUNTER 08-30-2016 [facility] FOR DISTRICT IMMUNIZATIO [facility] DEPT N JAZZ R5381 OTHER 08-29-2016 [facility] MALAISE PHYSICIANS GROUP R9431 ABNORMAL 08-29-2016 [facility] ELECTROCARD PHYSICIANS IOGRAM GROUP W33592 LYMPHOCYTOP 08-21-2016 [place] ENIA [facility] INC J3089 OTHER 08-21-2016 [facility] RHINITIS [place] J4520 MILD 08-21-2016 [facility] INTERMITTEN PARTNERS OF T ASTHMA [place] UNCOMPLICAT ED R068IUY OTHER 08-21-2016 [facility] ADVERSE PARTNERS OF FOOD [place] REACTIONS NEC SUBSEQUENT ENC M791 MYALGIA 08-17-2016 [facility] PHYSICIANS, PLLC M898X9 OTHER 08-12-2016 [place] SPECIFIED MEDICAL DISORDERS IMAGING ASS BONE UNSPECIFIED SITE R599 ENLARGED 08-12-2016 [place] L[facility]MPH [facility] INC UNSPECIFIED R1314 DYSPHAGIA 08-10-2016 [facility] PHARYNGOESO PHYSICIANS, PHAGEAL PLLC PHASE R5382 CHRONIC 08-07-2016 [place] FATIGUE [facility] UNSPECIFIED INC J301 ALLERGIC 08-05-2016 [facility] RHINITIS PARTNERS OF DUE TO [place] POLLEN J3081 ALLERG 08-05-2016 [facility] RHINITIS PARTNERS OF D/T ANIMAL [place] CAT DOG HAIR & DANDER R591 GENERALIZED 08-05-2016 [place] ENLARGED [facility] P I208 OTHER FORMS 08-02-2016 [place] OF ANGINA [facility] P X53421 PAIN IN 08-02-2016 [place] RIGHT KNEE MEDICAL IMAGING ASS R55 SYNCOPE AND 08-02-2016 [facility] TEJADA PHYSICIANS, PLLC K997BWL UNSPECIFIED 08-02-2016 [place] INJURY OF MEDICAL NECK IMAGING ASS INITIAL ENCOUNTER H8526LE UNS INJURY 08-02-2016 [place] RT LOWER MEDICAL LEG INITIAL IMAGING ASS ENCOUNTER N281 CYST OF 08-01-2016 [facility] P N23640 OTHER 07-31-2016 [facility]HMA EQUIPMENT INC R209 UNSPECIFIED 07-29-2016 [facility] PHYSICIANS, DISTURBANCE PLLC S OF SKIN SENSATION K589 IRRITABLE 07-24-2016 [facility] BOWEL PHYSICIANS SYNDROME GROUP WITHOUT DIARRHEA R102 PELVIC AND 07-24-2016 [facility] PERINEAL PHYSICIANS PAIN GROUP N831 CORPUS 07-22-2016 [facility] LUTEUM CYST PHYSICIANS GROUP N920 EXCESS & 07-22-2016 [facility] FREQUENT PHYSICIANS MENSTRUATIO GROUP N W/REGULAR CYCLE L32386Q STRAIN UNS 07-22-2016 [facility] MUSCLE FASC PHYSICIANS, TEND THIGH PLLC RT INITIAL ENC Z7251 HIGH RISK 07-22-2016 [place] [facility] BEHAVIOR INC R12 HEARTBURN 07-18-2016 [facility] H[facility]9 OTHER 07-17-2016 [facility] SPECIFIED PHYSICIANS DISORDERS GROUP OF EAR UNSPECIFIED EAR J302 OTHER 07-17-2016 [facility] SEASONAL PHYSICIANS ALLERGIC GROUP RHINITIS W5829BQ LACERATION 07-13-2016 [facility] W/O FOREIGN PHYSICIANS, BODY SCALP PLLC INITIAL ENC W3313VO SPRAIN 07-13-2016 [facility] UNSPECIFIED PHYSICIANS, SITE LT PLLC KNEE INITIAL ENCNTR R6889 OTHER 07-10-2016 [facility] SYMPTOMS HOSPITA AND SIGNS E780 PURE 07-09-2016 [facility] HYPERCHOLES BARIATRIC TEROLEMIA SURGICAL E876 HYPOKALEMIA 07-09-2016 [facility] P Z1231 ENCOUNTER 07-08-2016 [place] SCREENING MEDICAL MAMMO MALIG IMAGING ASS NEOPLASM BREAST H6990 UNSPECIFIED 07-07-2016 [facility] TUBE PHYS PSC DISORDER UNS EAR H938X3 OTHER 07-07-2016 [facility] SPECIFIED HEALTH DISORDERS [place] OF EAR BILATERAL M5432 SCIATICA 07-07-2016 [facility] LEFT SIDE EMERGENCY PHYS PSC R1010 UPPER 07-05-2016 [facility] ABDOMINAL PHYSICIANS, PAIN PLLC UNSPECIFIED R1084 GENERALIZED 06-29-2016 [facility] ABDOMINAL PHYSICIANS, PAIN PLLC I880 NONSPECIFIC 06-27-2016 [facility] MESENTERIC PHYSICIANS, PLLC LYMPHADENIT IS R100 ACUTE 06-27-2016 [facility] ABDOMEN [facility]BULANCE SERVICE R1031 RIGHT LOWER 06-26-2016 [facility] PAIN PHYS O25999 RIGHT LOWER 06-26-2016 [facility] COMMUNTIY ABDOMINAL HOSPITA TENDERNESS N200 CALCULUS [...] EXPS TO NONIONIZING RAD R9439 ABNORMAL 04-08-2016 [facility] LR FUNCTION GROUP STUDY [...] VALLEY IES NOT INTERNAL ELSEWHERE MED CLASSIFIED 24100 UNSPECIFIED 07-11-2015 [facility] VIRAL WARTS 2167 [...] SKIN 7020 ACTINIC 07-11-2015 [facility] KERATOSIS 25519 INFLAMED 07-11-2015 [facility] SEBORRHEIC KERATOSIS V700 ROUTINE 06-27-2015 [facility] DEPT EXAM@[facility] FACL 71190 MORBID 06-20-2015 [facility] OBESITY BARIATRIC SURGICAL 58098 PAIN IN 06-20-2015 [facility] JOINT, SITE [facility] UNSPECIFIED 7823 EDEMA 06-20-2015 [facility] 54436 OTHER 06-20-2015 [facility] DYSPNEA AND [facility] RESPIRATORY ABNORMALITI ES 7871 HEARTBURN 06-20-2015 [facility] 7904 NONSPEC 06-20-2015 [facility] ELEVATION BARIATRIC OF LEVELS SURGICAL OF TRANSAMINAS E/LDH V4586 BARIATRIC 06-20-2015 [facility] SURGERY BARIATRIC STATUS SURGICAL V7612 OTHER 06-19-2015 [place] SCREENING MEDICAL MAMMOGRAM IMAGING ASS 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 MED 2689 UNSPECIFIED 06-12-2015 [facility] VITAMIN D [place] DEFICIENCY INTERNAL MED 5718 OTHER 06-12-2015 [facility] CHRONIC [place] NONALCOHOLI INTERNAL C LIVER MED DISEASE 7905 OTHER 06-12-2015 [place] NONSPECIFIC [place] ABNORMAL INTERNAL SERUM MED ENZYME LEVELS 56003 UNSPEC 05-09-2015 [facility] DISORDERS PHYSICIANS BURSAE&TEND GROUP ONS SHOULDER REGION 7262 OTHER 05-09-2015 [facility] AFFECTIONS PHYSICIANS OF SHOULDER GROUP REGION NEC 54964 OBESITY, 05-04-2015 [facility] UNSPECIFIED OLOGY AND HEPATOL 3674 PRESBYOPIA 04-28-2015 [place]IF[place] ANG 01330 CHEST PAIN 04-28-2015 [facility] UNSPECIFIED HEALTH MEDICAL GROUP 86863 ABDOMINAL 04-25-2015 [place] PAIN, COMMUNTIY UNSPECIFIED HOSPITA SITE 4019 UNSPECIFIED 04-16-2015 [facility] ESSENTIAL [facility] HYPERTENSIO INC N 5990 URINARY 04-16-2015 [facility] TRACT PHYSICIANS, INFECTION [facility] SITE NOT SPECIFIED 7948 NONSPECIFIC 04-16-2015 [place] [facility] RESULTS INC LIVR FUNCTION STUDY 5739 UNSPECIFIED 04-14-2015 [facility] [place] DISORDER RADIOLOGY OF LIVER 7906 OTHER 04-14-2015 [place] ABNORMAL COMM[facility]TI[facility] BLOOD HOSPITA CHEMISTRY 5939 UNSPECIFIED 04-06-2015 [place] DISORDER MEDICAL OF KIDNEY IMAGING ASS AND URETER 7891 HEPATOMEGAL 04-06-2015 [facility] O[facility] AND HEPATOL V140 PERSONAL 04-05-2015 [place] HISTORY OF [facility] ALLERGY TO HOSPITAL P PENICILLIN 85583 ABDOMINAL 04-03-2015 [facility] PAIN, GENERALIZED 5758 OTHER 04-01-2015 [place] SPECIFIED [facility] DISORDER OF HOSPITAL P GALLBLADDER 20667 OTHER 04-01-2015 [facility] SPE[facility] MEDICAL DISORDER OF IMAGING ASS KIDNEY AND URETER 50632 ABDOMINAL 04-01-2015 [place] PAIN RIGHT MEDICAL UPPER IMAGING ASS QUADRANT 54584 ABDOMINAL 04-01-2015 [place] PAIN, [facility] EPIGASTRIC HOSPITAL P 7295 PAIN IN 03-29-2015 [place] SOFT COMMUNTIY TISSUES OF HOSPITA LIMB V4589 OTHER 03-29-2015 [facility] POSTSURGICA COMMUNTIY L STATUS HOSPITA OTHER 85372 OTHER 03-24-2015 [place] MALAISE AND COMMUNTIY FATIGUE HOSPITA V6700 FOLLOW-UP 03-21-2015 [facility] [place] EXAMINATION RADIOLOGY FOLLOWING UNSPEC SURGERY 70785 ESOPHAGEAL 03-20-2015 [place] [facility] PS 6256 FEMALE 03-20-2015 [place] STRESS COMMUNTIY INCONTINENC HOSPITA E 17842 PAIN IN 03-20-2015 [facility] JOINT, BARIATRIC MULTIPLE SURGICAL SITES 99807 DIASTASIS 03-20-2015 [place] OF MUSCLE COMMUNTIY HOSPITA 7892 SPLENOMEGAL 03-20-2015 [facility] Y COMMUNTIY HOSPITA V8543 BODY MASS 03-20-2015 [facility] INDEX COMMUNTIY 50.0-59.9 HOSPITA ADULT 2639 UNSPECIFIED 03-14-2015 [facility] COMM[facility]TIY PROTEIN-TEA HOSPITA ORIE MALNUTRITIO N 21931 MIGRAINE 03-07-2015 [facility] UNSP W/O BARIATRIC 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 MIGRAINOSUS 88262 OTHER 03-07-2015 [facility] URINARY BARIATRIC INCONTINENC SURGICAL E 6929 CONTACT 03-06-2015 [facility] HUBER DERMATITIS& OTHER [place] DUE UNSPEC CAUSE 6822 CELLULITIS 03-02-2015 [place] AND ABSCESS [facility] P V148 PERSONAL 03-02-2015 [place] HISTORY [facility] ALLERGY OT HOSPITAL P SPEC MEDICINAL AGTS V571 OTHER 02-22-2015 [place] PHYSICAL [facility] THERAPY INC 2724 OTHER AND 02-20-2015 [facility] UNSPECIFIED COMMUNTIY HOSPITA HYPERLIPIDE LILIANE 7245 UNSPECIFIED 02-20-2015 [facility] BACKACHE COMMUNTIY HOSPITA V7283 OTHER 02-20-2015 [place] SPECIFIED COMMUNTIY PRE-OPERATI HOSPITA VE EXAMINATION 2875 UNSPECIFIED 02-15-2015 [facility] THROMBOCYTO [facility] P PENIA 7932 NONSPC ABN 02-10-2015 [place] [facility] RAD&OTH FOUNDATION EXAM OTH INTRTHOR ORGN V7282 PRE-OPERATI 02-10-2015 [place] [facility] SERV RESPIRATORY [facility]OUNDATION EXAMINATION 5930 NEPHROPTOSI 02-09-2015 [facility] P 7802 SYNCOPE AND 02-01-2015 [facility] MEDICAL G 4139 OTHER AND 01-18-2015 [place] UNSPECIFIED SELECT [facility] P [place] [address] SHORTNESS 01-18-2015 [facility] MEDICAL IMAGING ASS 98790 OTHER CHEST 01-18-2015 NEW [facility] PAIN [facility] P 07439 OSTEOARTHRO 12-30-2014 DANIEL NGO S INVLV MX SITES [place] 30556 PAIN IN 11-09-2014 [place] [facility], MEDICAL SHOULDER IMAGING ASS REGION V5832 ENCOUNTER 11-09-2014 NEW [facility] FOR REMOVAL [facility] P 48869 PILAR CYST 11-02-2014 [facility] 05657 UNSPECIFIED 10-06-2014 [facility] INFE[facility] PHYS IN CCE & UNS SITE 7840 HEADACHE 10-06-2014 [place] [facility] 72609 ATROPHIC 09-16-2014 [facility] MENTION OF HEMORRHAGE 51234 OTHER SPEC 09-16-2014 [facility] WITHOUT MENTION HEMORRHAGE 75130 DYSPHAGIA 09-16-2014 [place] UNSPECIFIED ANESTHESIA GROUP PS 6869 UNSPEC 08-17-2014 [facility] LOCAL INFECTION SKIN&SUBCUT ANEOUS TISSUE V7284 UNSPECIFIED 08-09-2014 [facility] PRE-[facility]ATI INC VE EXAMINATION 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 7019 UNSPECIFIED 08-04-2014 [facility] HYPERTROPHI C&ATROPHIC CONDITION SKIN 13358 OTHER 08-04-2014 [facility] SEBORRHEIC KERATOSIS 7851 PALPITATION 08-04-2014 [facility] G V7281 PRE-OPERATI 07-21-2014 [facility] CARDIOVASCU MEDICAL G LAR EXAMINATION 11837 PAINFUL 07-05-2014 [facility] MIC RESPIRATION V771 SCREENING 05-24-2014 [facility] DIABETES MELLITUS 470 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 4779 ALLERGIC 03-17-2014 [facility] RHINITIS CAUSE UNSPECIFIED 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 01-10-2014 MAEGAN JARON MAXILLARY SINUSITIS V0481 NEED 01-06-2009 [facility] PROPHYLACTI [facility] C CENTRAL VACCINATION BANK ACCT &INOCULATIO N FLU 31001 PAIN IN 01-04-2009 [place] [facility] PELV[facility] ASSOCIATES THIGH 00033 DISPLCMT 01-04-2009 [place] LUMBAR MEDICAL INTERVERT 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 8460 SPRAIN AND 01-04-2009 [facility] [employer] 8472 LUMBAR 01-04-2009 [facility] STRAIN INC 22279 CONTUSION 01-04-2009 [facility] BACK [employer] 75150 CONTUSION 01-04-2009 [facility] BUTTOCK [employer] E8490 PLACE OF 01-04-2009 [place] OCCURRENCE, MEDICAL [...] .5 00 IN ti EN 30 9- - 99 00 IC ve T 71 20 [...] 17 79 PH E [address] MA OP CY 50 MC G SP [...] 43 ZA 60 [address] 1 09 AR IN MA E CY [...] 5 CY MG TA BL ET LO 68 06 07 30 30 00 CL Ac VA 18 -0 -0 .[address] 00 8- 7- 00 00 IC ve AT 46 20 20 43 IN 80 17 17 34 PH 1 26 AR 20 MA CY MG TA BL ET AZ 50 06 [...] YL 15 2- 7- [address] 02 20 20 18 AI ED 20 [...] 17 79 PH E [address] MA OP CY 50 MC G SP [...] CY (1 37 MC G) SP RY HY 00 05 06 30 30 00 [...] 43 ZA 60 [address] 1 00 AR IN MA E CY [...] MA G CY CA PS UL E OX 62 05 [...] IN ti IC 30 1- 9 00 00 IC ve 70 20 20 42 ON 01 17 17 79 PH E [address] MA OP CY 50 MC G SP RA Y BU 00 05 06 90 30 00 CL Ac SP 37 -1 -0 .0 00 IN ti IR 81 1 9- 00 00 IC ve ON 15 [...] -0 .[address] 20 1 9- 00 01 ve AT 14 20 20 18 AI IN 20 17 17 36 D 1 68 PH 20 AR MA MG CY TA #3 BL 93 ET 8 VE 68 05 06 30 30 00 [...] G CY CA PS UL E MO 29 04 [...] 42 ZA 60 [address] 1 16 AR IN MA E CY 5 MG TA BL ET FL 50 04 05 16 30 00 CL Ac UT 38 -1 -1 .0 00 IN ti IC 30 3- 2- 00 00 IC ve 70 20 20 42 ON 01 17 17 79 PH E [address] MA OP CY 50 MC G SP [...] 42 ZA 60 [address] 1 23 AR IN MA E CY [...] 0 CY MG CA PS UL E CT 65 03 03 20 5 00 CL [...] 17 53 PH E [address] MA OP CY 50 MC G SP [...] 42 ZA 60 [address] 1 05 AR IN MA E CY [...] MG #3 TA [address] 59 02 03 10 5 00 RI [...] 42 ZA 81 [address] 0 66 AR IN MA E CY [...] 17 53 PH E [address] MA OP CY 50 MC G SP [...] 12 01 [address] 46 -2 -2 .0 00 IN ti [...] 12 01 [address] 46 -1 -2 .0 00 IN ti [...] 17 53 PH E [address] MA OP CY 50 MC G SP RA Y ME 59 02 02 00 21 6 CL 18 GA Ac TH 74 -1 -2 .0 IN 75 IN ti YL 60 2- 6- 00 IC [address] 00 20 20 ED 10 09 09 [...] 20 ZA [address] 6 AR CH IN MA AE E [...] Procedure DOS Code Location Performer Comment ECG 67544 [facility] PASCUAL ROUTINE 7 PHYSICIAN ECG S, PLLC W/LEAST 12 LDS I&R ONLY EGD 62375 DOMINICK SANCHEZ TRANSORAL 7 HEALTH BIOPSY MEDICAL SINGLE/MU GROUP LTIPLE ECG 68952 [facility] ROUTINE 7 HEART ECG SPECIALIS W/LEAST TS, 12 LDS I&R ONLY ECG 79459 [facility] 7 PHYSICIAN ECG S, PLLC W/LEAST 12 LDS I&R ONLY COMPREHEN 98784 [place] [facility] SIVE [facility] METABOLIC INC INC PANEL ECG 05445 [place] [facility] ROUTINE 7 [facility] ECG INC INC W/LEAST 12 LDS TRCG ONLY W/O I&[place] [address] [place] [facility] TROPONIN 7 [facility] QUANTITAT INC INC SABIHA ECG 30998 [facility]ISM Z[facility]ASTRI[facility]ISM ROUTINE 7 HEALTH HE[facility] ECG [facility] W/LEAST 12 LDS TRCG ONLY W/O I&R COLPOSCOP 77938 [facility] HUMP[facility]RE[facility] Y CERVIX 7 PHYSICIAN BX CERVIX S GROUP & [place] [address] [facility], PICKLESIM SURG 7 LLC ER JR PATHOLOGY GROSS&[place] [address] ZOROASTRIANISM ZOROASTRIANISM TRACT 7 [facility] W/WO DELAYED IMAGES W/KUB UNCLASSIF J3490 [place] [facility] IED DRUGS 7 [place] [address] [place] [facility] HEAD/BRAI 7 [facility] N W/O INC INC CONTRAST MATERIAL BLOOD 67968 [place] [facility] COUNT 7 [facility] COMPLETE INC INC AUTO&AUTO DIFRNTL WBC GONADOTRO 02488 [place] [facility] PIN 7 [facility] LUTEINIZI INC INC NG HORMONE GONADOTRO 56366 [place] [facility] PIN 7 [facility] FOLLICLE INC INC STIMULATI NG HORMONE LIPID 83088 [place] [facility] PANEL 7 [place] [address] [place] [facility] GAMMAGLOB 7 [facility] ULIN IGA INC INC IGD IGG IGM EACH COMPREHEN 81900 [place] [facility] SIVE 7 [facility] METABOLIC INC INC PANEL COMPREHEN 58485 [place] [facility] SIVE 7 [facility] METABOLIC INC INC PANEL URNLS DIP 69268 [place] [facility] 7 [facility] STICK/TAB INC INC LET REAGENT AUTO MICROSCOP Y UNCLASSIF J3490 [place] [facility] IED DRUGS 7 [facility] INC INC BLOOD 62266 [place] [facility] COUNT [facility] COMPLETE INC INC AUTO&[place] [address] [place] [facility] INFUSION 7 [facility] THERAPY INC INC PROPHYLAX IS/[place] [address] [place] [facility] INFUSION 7 [facility] THERAPY/P INC INC ROPHYLAXI S /DX 1ST TO 1 HR UNCLASSIF J3490 [place] [facility] IED DRUGS 7 [facility] INC INC URNLS DIP 78922 [facility] HU[facility] 7 PHYSICIAN STICK/TAB S GROUP LET RGNT NON-AUTO W/O MICRSCP IADNA 84849 [facility] TOD HUMAN 7 LLC PAPILLOMA VIRUS HIGH-RISK TYPES CYTP 71296 [facility] CERVICAL/ 7 LLC VAGINAL REQ INTERP PHYSICIAN CYTP C/V 30642 [facility], [facility] AUTO THIN 7 LLC LYR PREPJ SCR MNL RESCR PHYS ECG 83749 [place] [facility] ROUTINE 7 [facility] ECG INC INC W/LEAST 12 LDS TRCG ONLY W/O I&R COMPREHEN 30526 [place] [facility] SIVE 7 [facility] METABOLIC INC INC PANEL BLOOD 13631 [place] [facility] COUNT 7 [facility] COMPLETE INC INC AUTO&AUTO DIFRNTL WBC ANTINUCLE 82245 [place] [facility] AR 7 [facility] ANTIBODIE INC INC S SANNA PROTEIN 17336 [place] [facility] ELECTROPH 7 [facility] ORETIC INC INC FRACTJ&QU ANTJ SERUM URNLS DIP 03897 [place] 7 [facility] STICK/TAB INC INC LET RGNT AUTO W/O MICROSCOP Y UNCLASSIF J3490 [place] [facility] IED DRUGS 7 [facility] INC INC CREATININ 55505 [place] [facility] E BLOOD 7 [facility] INC INC CT THORAX 14987 [place] TALLEYON 7 [facility] W/[place] [address] [place] [facility] UREA 7 [facility] NITROGEN INC INC QUANTITAT SABIHA ECG 10757 [place] [facility] ROUTINE 7 [facility] ECG INC INC W/LEAST 12 LDS TRCG ONLY W/O I&R NJX 44799 [facility] DUFF DX/THER 7 MD RHIANNON, AGT PVRT PSC FACET JT LMBR/SAC 3+ [place]EL NJX 68996 [facility] DUFF DX/THER 7 MD RHIANNON, AGT PVRT PSC FACET JT LMBR/SAC 1 LEVEL NJX 81853 [facility] MAXIMOFF DX/THER 7 MD RHIANNON, AGT PVRT PSC FACET JT LMBR/SAC 2ND LEVEL ECG 91167 [facility] ROUTINE 7 PHYSICIAN ECG S GROUP W/LEAST 12 LDS I&R ONLY UNCLASSIF J3490 [place] [facility] IED DRUGS 7 [facility] INC INC APPL 61648 [place] [facility] MODALITY 7 [facility] 1/> AREAS INC INC TRACTION MECHANICA L APPL 45904 [place] [facility] MODALITY 7 [facility] 1/> AREAS INC INC ELEC STIMJ UNATTENDE D THERAPEUT 93177 [place] [facility] IC PX 1/> 7 [facility] AREAS INC INC EACH 15 MIN EXERCISES APPL 97038 [place] [facility] MODALITY 7 [facility] 1/> AREAS INC INC IONTOPHOR ESIS EA 15 MIN APPLICATI 47878 [place] [facility] ON 7 [facility] MODALITY INC INC 1/> AREAS HOT/COLD PACKS APPL 64620 [place] [facility] MODALITY 7 [facility] 1/> AREAS INC INC VASOPNEUM ATIC DEVICES APPL 37193 [place] [facility] MODALITY 7 [facility] 1/> AREAS INC INC ULTRASOUN D EA 15 MIN APPLICATI 33416 [place] [facility] ON 7 [facility] MODALITY INC INC 1/> AREAS HOT/COLD PACKS PHYSICAL 42270 [place] [facility] THERAPY 7 [facility] EVALUATIO INC INC N HIGH COMPLEX 45 MINS APPL 02119 [place] [facility] MODALITY 7 [facility] 1/> AREAS INC INC ELEC STIMJ UNATTENDE D APPL 97839 [place] [facility] MODALITY 7 [facility] 1/> AREAS INC INC TRACTION MECHANICA L RADEX 37712 [place] [facility] ABDOMEN 7 [facility] COMPL INC INC W/DCBTS&/ [place] [address] [place] [facility] TROPONIN 7 [facility] QUANTITAT INC INC SABIHA THERAPEUT 80720 [place] [facility] IC 7 [facility] INJECTION INC INC IV PUSH EACH NEW DRUG BLOOD 13656 [place] [facility] COUNT 7 [facility] COMPLETE INC INC AUTO&AUTO DIFRNTL WBC THER 89912 [place] [facility] PROPH/DX 7 [facility] NJX IV INC INC PUSH SINGLE/1S T SBST/DRUG UNCLASSIF J3490 [place] [facility] IED DRUGS 7 [facility] INC INC ECG 27526 [place] [facility] ROUTINE 7 [facility] ECG INC INC W/LEAST 12 LDS TRCG ONLY W/O I&R CREATINE 26402 [place] [facility] KINASE 7 [facility] [place] [address] [place] [facility] LIPASE 7 [facility] INC INC ECG 91290 [place] ROUTINE 7 [facility] W/LEAST P 12 LDS I&R ONLY COMPREHEN 60584 [place] SIVE 7 [facility] [place] [address] [place] [facility] AMYLASE 7 [facility] INC INC CREATINE 58123 [place] [facility] KINASE MB 7 [facility] FRACTION INC INC ONLY ECG 68661 [facility] KIMBERLY ROUTINE 7 PHYSICIAN ECG S GROUP W/LEAST 12 LDS I&R ONLY ECG 90056 [place] [facility] ROUTINE 7 [facility] ECG INC INC W/LEAST 12 LDS TRCG ONLY W/O I&R APPLICATI 82565 [place] [facility] ON 7 [facility] MODALITY INC INC 1/> AREAS HOT/COLD PACKS APPL 61926 [place] [facility] MODALITY 7 [facility] 1/> AREAS INC INC TRACTION MECHANICA L APPL 84334 [place] [facility] MODALITY 7 [facility] 1/> AREAS INC INC ELEC STIMJ UNATTENDE D APPL 28811 [place] [facility] MODALITY 7 [facility] 1/> AREAS INC INC ELEC STIMJ UNATTENDE D APPL 92693 [place] [facility] MODALITY 7 [facility] 1/> AREAS INC INC TRACTION MECHANICA L APPLICATI 85058 [place] [facility] ON 7 [facility] MODALITY INC INC 1/> AREAS HOT/COLD PACKS APPLICATI 16952 [place] [facility] ON 7 [facility] MODALITY INC INC 1/> AREAS HOT/COLD PACKS THERAPEUT 63164 [place] [facility] IC PX 1/> 7 [facility] AREAS INC INC EACH 15 MIN EXERCISES APPL 11338 [place] [facility] MODALITY 7 [facility] 1/> AREAS INC INC ELEC STIMJ UNATTENDE D ECG 35910 [facility] KIMBERLY ROUTINE 7 PHYSICIAN ECG S GROUP W/LEAST 12 LDS I&R ONLY XTRNL ECG 39347 [place] [facility] & 48 HR 7 [facility] RECORDING INC INC CREATINE 06547 [place] [facility] KINASE MB 7 [facility] FRACTION INC INC ONLY COMPREHEN 02349 [place] [facility] SIVE 7 [facility] METABOLIC INC INC PANEL ECG 25074 S[facility] SANDHU ROUTINE 7 PHYSICIAN ECG S, PLLC W/LEAST 12 LDS I&R ONLY ECG 96496 [place] [facility] ROUTINE 7 [facility] ECG INC INC W/LEAST 12 LDS TRCG ONLY W/O I&R RADIOLOGI 43193 [place] [facility] C EXAM 7 [facility] CHEST 2 INC INC VIEWS FRONTAL&L ATERAL CREATINE 81136 [place] [facility] KINASE 7 [facility] [place] [address] [place] [facility] TROPONIN 7 [facility] QUANTITAT INC INC SABIHA MRI 15827 WENDY ADAMS SPINAL 7 CANAL ORTHOPAED LUMBAR ICS PSC W/O CONTRAST MATERIAL GROUND A0425 STACY KUMAR MILEAGE 7 AMBULANCE AMBULANCE PER SERVICE SERVICE STATUTE MILE BLOOD 60140 [place] [facility] COUNT 7 [facility] COMPLETE INC INC AUTO&AUTO DIFRNTL WBC AMB A0427 STACY KUMAR SERVICE 7 AMBULANCE AMBULANCE ALS SERVICE SERVICE EMERGENCY TRANSPORT LEVEL 1 THERAPEUT 18048 [place] [facility] IC PX 1/> 7 [facility] AREAS INC INC EACH 15 MIN EXERCISES APPLICATI 73073 [place] [facility] ON 7 [facility] MODALITY INC INC 1/> AREAS HOT/COLD PACKS APPL 10814 [place] [facility] MODALITY 7 [facility] 1/> AREAS INC INC ELEC STIMJ UNATTENDE D APPL 39393 [place] [facility] MODALITY 7 [facility] 1/> AREAS INC INC TRACTION MECHANICA L RADEX 33643 [facility] SPINE 7 [place] LUMBOSACR ORTHOPAED AL 2/3 IC VIEWS ECG 98213 [place] ROUTINE 7 [facility] ECG INC INC W/LEAST 12 LDS TRCG ONLY W/O I&R ECG 46405 [place] ROUTINE 7 [facility] W/LEAST P 12 LDS I&[place] [address] [facility] CERVICAL 7 MEDICAL MEDICAL SPINE W/O [place]AG[place] [address] [place] C[place] HEAD/BRAI 7 MEDICAL N W/O IMAGING CONTRAST ASS MATERIAL COLLECTIO 18361 [place] [facility] N VENOUS 7 [facility] BLOOD INC INC VENIPUNCT URE 25 23881 [place] [facility] HYDROXY 7 [facility] INCLUDES INC INC FRACTIONS IF PERFORMED CYANOCOBA 44895 [place] [facility] LYUBOV 7 [facility] VITAMIN INC INC B-12 [place] [address] [place] [facility] FOLIC 7 [facility] ACID INC INC SERUM UNCLASSIF J3490 [place] [facility] IED DRUGS 7 [facility] INC INC THERAPEUT 50105 [place] [facility] IC 7 [facility] PROPHYLAC INC INC TIC/DX INJECTION SUBQ/IM UNCLASSIF J3490 [place] [facility] IED DRUGS 7 [facility] INC INC URNLS DIP 63886 [place] [facility] 7 [facility] STICK/TAB INC INC LET REAGENT AUTO MICROSCOP Y DESTRUCTI 34148 JASSO JASSO ON BENIGN 7 LESIONS UP [place] [address] ZOROASTRIANISM ZOROASTRIANISM TRACT 7 [facility] W/WO DELAYED IMAGES W/KUB RADEX 86037 [place] ABDOMEN 1 7 MEDICAL IMAGING ANTEROPOS ASS TERIOR VIEW TX PROC G0238 [place] [facility] IMPRV 7 [facility] RESP INC INC FUNCT NOT G0237 FCE-FCE 15MIN BLOOD 63818 [place] [facility] COUNT 7 [facility] COMPLETE INC INC AUTO&[place] [address] [place] [facility] INFUSION 7 [facility] THERAPY/P INC INC ROPHYLAXI S /DX 1ST TO 1 HR COMPREHEN 49793 [place] [facility] SIVE 7 [facility] METABOLIC INC INC PANEL RAD EXP G9500 [place] C[place] INDICES/E 7 MEDICAL XP TM & IMAGING NUMB ASS FLUORO IMAGES DOC RADEX 12067 [place] [facility] ESOPHAGUS 7 MEDICAL IMAGING ASS INJECTION J1100 Z[facility]OASTRIANISM ZOROASTRIANISM [address] [place] [address] DEXAMETHO [facility] SONE SODIUM PHOSPHATE 1 MG INJECTION J1170 ZOROASTRIANISM ZOROASTRIANISM [address] [place] [address] HYDROMORP [facility] KURTIS UP TO 4 MG LAPS RPR 72577 [facility]ISM GARCIA PARAESPHG 7 [facility] HRNA MEDICAL INCL GROUP FUNDPLSTY W/O MESH INJECTION J0330 ZOROASTRIANISM ZOROASTRIANISM [address] [place] [address] SUCCINYLC [facility] HOLINE CHLORIDE UP TO 20 MG INJECTION J2405 ZOROASTRIANISM ZOROASTRIANISM [address] [place] [address] ONDANSETR [facility] ON HCL PER 1 MG INJECTION J2704 ZOROASTRIANISM ZOROASTRIANISM PROPOFOL 7 [facility] 10 MG [facility] INJECTION J2710 ZOROASTRIANISM ZOROASTRIANISM [address] [place] [address] NEOSTIGMI [facility] NE METHYLSUL FATE UP TO 0.5 MG INJECTION J3010 ZOROASTRIANISM ZOROASTRIANISM FENTANYL [address] [place] [address] CITRATE [facility] 0.1 MG ANES 59109 [facility] INTRAPERI 7 [place] TONEAL ANESTHESI UPPER A ABDOMEN W/LAPS NOS INJECTION J1650 ZOROASTRIANISM ZOROASTRIANISM 7 [facility] ENOXAPARI [facility] N SODIUM 10 MG GLUCOSE 33347 ZOROASTRIANISM ZOROASTRIANISM QUANTITAT 7 [facility] SABIHA BLOOD [facility] XCPT REAGENT STRIP HEMOGLOBI 68728 ZOROASTRIANISM ZOROASTRIANISM N 7 [facility] GLYCOSYLA [facility] LANEY A1C COLLECTIO 49870 ZOROASTRIANISM ZOROASTRIANISM N VENOUS 7 [facility] BLOOD [facility] VENIPUNCT URE ECG 28565 ZOROASTRIANISM ANNA ROUTINE 7 [facility] ECG MEDICAL W/LEAST GROUP 12 LDS I&R ONLY ECG 91372 ZOROASTRIANISM ZOROASTRIANISM ROUTINE 7 [facility] ECG [facility] W/LEAST 12 LDS TRCG ONLY W/O I&R BLOOD 54744 ZOROASTRIANISM ZOROASTRIANISM COUNT 7 [facility] COMPLETE [facility] [place] [address] [place] [facility] INFUSION 6 [facility] THERAPY/P INC INC ROPHYLAXI S /DX 1ST TO 1 HR THERAPEUT 59862 [place] [facility] IC 6 [facility] INJECTION INC INC IV PUSH EACH NEW DRUG BLOOD 34955 [place] [facility] COUNT 6 [facility] COMPLETE INC INC AUTO&AUTO DIFRNTL WBC ECG 39581 [place] [facility] ROUTINE 6 [facility] ECG INC INC W/LEAST 12 LDS TRCG ONLY W/O I&R RADEX 46013 [facility] ABDOMEN 6 MEDICAL MEDICAL COMPL IMAGING IMAGING W/DCBTS&/ ASS ASS ERC VIEWS RADIOLOGI 86720 [facility] C EXAM 6 MEDICAL MEDICAL CHEST 2 IMAGING IMAGING VIEWS ASS ASS FRONTAL&[place] [address] [place] [facility] LIPASE 6 [facility] INC INC ECG 00421 [place] CHAVEZ JR ROUTINE 6 [facility] W/LEAST P 12 LDS I&[place] [address] [place] [facility] AMYLASE 6 [facility] INC INC COMPREHEN 61851 [place] [facility] SIVE 6 [facility] METABOLIC INC INC PANEL BLOOD 52500 [facility] OCCULT 6 VALLEY PEROXIDAS INTERNAL E ACTV MED QUAL FECES 1 DETER GLUC BLD 79266 [place] [facility] GLUC MNTR 6 [facility] DEV INC [place] [address] SEJAL CANSECO HEAD/BRAI 6 MEDICAL N W/O IMAGING CONTRAST ASS MATERIAL THERAPEUT 40362 [facility] [place] IC 6 [facility] PROPHYLAC INC INC TIC/DX INJECTION SUBQ/IM RADEX 33555 [facility] ALL SACRUM & 6 MEDICAL COCCYX IMAGING MINIMUM 2 ASS VIEWS RADIOLOGI 35613 [facility] ALL C 6 MEDICAL EXAMINATI IMAGING ON PELVIS ASS 1/2 VIEWS URINE 70550 [place] 6 [facility] TEST INC INC VISUAL COLOR CMPRSN METHS RADEX 39060 [facility] C[facility] ALL SPINE 6 MEDICAL LUMBOSACR IMAGING AL ASS MINIMUM 4 VIEWS RADIOLOGI 96165 [place] [facility] C EXAM 6 [facility] CHEST 2 INC INC VIEWS FRONTAL&L ATERAL RADEX 91208 [facility] CANSECO SINUSES 6 MEDICAL ADRIANNA PARANASAL IMAGING COMPL ASS MINIMUM 3 [place] [address] [place] [facility] STREPTOCO 6 [facility] CCUS INC INC GROUP A IAADI 88837 [place] [facility] INFLUENZA 6 [facility] B VIRUS INC INC IAADI 40314 [place] [facility] INFFLUENZ 6 [facility] A A VIRUS INC INC BLOOD 37191 [place] [facility] COUNT 6 [facility] COMPLETE INC INC AUTO&AUTO DIFRNTL WBC CUL BACT 93530 [place] [facility] XCPT 6 [facility] URINE INC INC BLOOD/[place] [address] [facility], PICKLESIM SURG 6 [facility] WANDA PATHOLOGY GROSS&BRYCE ROSCOPIC EXAM DECALCIFI 88874 [facility], PICKLESIM CATION 6 [facility] ER JR WANDA PROCEDURE ANESTHESI 16312 [facility] FEEBACK A NOSE & 6 ANESTH ACCESSORY OF THE SINUSES BLUE NOS ECG 65598 [place] [facility] ROUTINE 6 [facility] ECG INC INC W/LEAST 12 LDS TRCG ONLY W/O I&R ECG 16035 [place] [facility] ROUTINE 6 [facility] W/LEAST P 12 LDS I&R ONLY COLLECTIO 10672 [place] [facility] N VENOUS 6 [facility] BLOOD INC INC VENIPUNCT URE COMPREHEN 00050 [place] [facility] SIVE 6 [facility] METABOLIC INC INC PANEL BLOOD 54342 [place] [facility] COUNT 6 [facility] COMPLETE INC INC AUTO&AUTO DIFRNTL WBC ANTIBODY 48406 [place] [facility] HERPES 6 [facility] SMPLX INC INC TYPE 1 ANTIBODY 09260 [place] [facility] VIRUS NOT 6 [facility] [place] [address] [place] MAXILLOFA 6 MEDICAL ADRIANNA CIAL W/O IMAGING CONTRAST ASS MATERIAL URINE 65058 [place] [facility] TEST INC [place] V[place] [address] [place] HEAD/BRAI 6 MEDICAL N W/[place] [address] [place] CERVICAL 6 MEDICAL SPINE W/O IMAGING CONTRAST ASS MATERIAL COMPRE 84829 MAEGAN ISSA AUDIOMETR 6 JARON JARON Y THRESHOLD EVAL SP RECOGNIJ TYMPANOME 15736 MAEGAN ISSA TRY 6 JARON JARON DISTORT 76493 ISSA ISSA PRODUCT 6 JARON JARON EVOKED OTOACOUST IC EMISNS LIMITD PULMONARY 42609 [place] STRESS 6 MEDICAL TESTING SERV SIMPLE FOUNDATIO N GAS [address] [place] DILUT/WAS 6 MEDICAL MEDICAL HOUT LUNG SERV SERV VOL W/WO FOUNDATIO [place]OUND[place] DISTRI[place] N VENT&[place] [address] [place] DIFFUSING 6 MEDICAL CAPACITY SERV FOUNDATIO N ELIG CLIN G8427 STAMPING RODRIGUEZ TRI ATTSTS 6 GROUND DOC M REC FAMILY OBTD CLINI UPD/REV PT MEDS ECG 74781 [place] [facility] ROUTINE 6 [facility] W/LEAST P 12 LDS I&R ONLY IM ADM 51690 [facility] PRQ ID 6 [facility] SUBQ/IM HLTH DEPT HLTH DEPT NJXS EA JAZZ JAZZ VACCINE BLOOD 85617 [place] [facility] OCCULT 6 [facility] PEROXIDAS INC INC E ACTV QUAL FECES 1-3 SPEC COLLECTIO 11992 [place] [facility] N VENOUS 6 [facility] BLOOD INC INC VENIPUNCT URE IM ADM 71938 [facility] PRQ ID 6 [facility] SUBQ/IM HLTH DEPT HLTH DEPT NJXS 1 JAZZ JAZZ VACCINE TDAP 36832 [facility] VACCINE 7 [facility] YRS/> IM HLTH DEPT HLTH DEPT JAZZ JAZZ BLOOD 76177 [place] [facility] COUNT 6 [facility] COMPLETE INC INC AUTO&AUTO DIFRNTL WBC SKIN TEST 07810 [facility] TUBERCULO HLTH DEPT HLTH DEPT SIS JAZZ JAZZ INTRADERM AL SYPHILIS 02447 [facility] TEST 6 [facility] NON-TREPO HLTH DEPT HLTH DEPT NEMAL JAZZ JAZZ ANTIBODY QUAL XTRNL ECG 72969 [place] [facility] S RHYTHM P W/I&R UP TO 48 HRS SPMTRY 37123 [facility] [place] MAR W/VC 6 [facility]ERS EXPIRATOR OF [place] Y ABHI CO W/WO MXML VOL VNTJ ECG 96372 [place] [facility] W/LEAST P 12 LDS I&R ONLY PROF SVCS 31264 [facility]ER[facility] [place] MAR ALLG 6 PARTNERS IMMNTX X OF [place] W/PRV CO ALLGIC XTRCS NJXS ANTINUCLE 01011 [place] [facility] AR 6 [facility] ANTIBODIE INC INC S SANNA BLOOD 13669 [place] [facility] COUNT 6 [facility] RETICULOC INC INC YTE AUTOMATED NITRIC 72701 [facility]ER[facility] [place] MAR OXIDE 6 [facility] [place] GAS CO DETERMINA TION BLOOD 56450 [place] [facility] COUNT 6 [facility] COMPLETE INC INC AUTO&AUTO DIFRNTL WBC SEDIMENTA 25893 [place] [facility] TION RATE 6 [facility] RBC INC INC NON-AUTOM ATED AMBULANCE A0429 [facility] SERVICE 6 [facility]BUL[facility] PATY BLS SERVICE EMERGENCY TRANSPORT GROUND A0425 [facility] MILEAGE 6 [facility]BULANCE PATY PER SERVICE STATUTE MILE RHEUMATOI 15822 [place] [facility] D FACTOR 6 [facility] QUANTITAT INC INC SABIHA SEDIMENTA 97237 [place] TION RATE 6 [facility] RBC INC INC NON-AUTOM ATED BLOOD 72445 [place] [facility] COUNT 6 [facility] COMPLETE INC INC AUTO&AUTO DIFRNTL WBC BLOOD 18325 [place] [facility] COUNT 6 [facility] RETICULOC INC INC YTE AUTOMATED COLLECTIO 83164 [place] [facility] N VENOUS 6 [facility] BLOOD INC INC VENIPUNCT URE BONE 07776 [place] [facility] &/JOINT 6 [facility] IMAGING INC INC WHOLE BODY BASIC 83040 [place] [facility] METABOLIC 6 [facility] PANEL INC INC CALCIUM TOTAL TECHNETIU A9503 [place] TC-99M 6 [facility] MEDRONATE INC INC DX UP TO 30 MCI RADIOLOGI 53416 [facility] C EXAM 6 MEDICAL MEDICAL CHEST 2 IMAGING IMAGING VIEWS ASS ASS FRONTAL&L ATERAL ANES 09073 [place] BRITTNY LOWER 6 ANESTHESI INTESTINE A GROUP [place] [address] [place] [facility] THYROID 6 [facility] STIMULATI [place] [address] [place] [facility] THYROXINE 6 [facility] TOTAL INC INC THYROID 46138 [place] [facility] HORM 6 [facility] UPTK/THYR INC INC OID HORMONE BINDING RATIO GONADOTRO 31775 [place] [facility] PIN 6 [facility] FOLLICLE INC INC STIMULATI NG HORMONE GONADOTRO 73289 [place] [facility] PIN 6 [facility] LUTEINIZI INC INC NG HORMONE COLLECTIO 42857 [place] [facility] N VENOUS 6 [facility] BLOOD INC INC VENIPUNCT URE ECG 81637 [place] MATUTE ROUTINE 6 [facility] W/LEAST P 12 LDS I&R ONLY RADIOLOGI 66576 [facility] C 6 MEDICAL MEDICAL EXAMINATI IMAGING IMAGING ON CHEST ASS ASS SINGLE VIEW FRONTAL GROUND A0425 [facility] MILEAGE 6 AMBULANCE KILO PER SERVICE STATUTE MILE AMB A0427 [facility] SERVICE 6 AMBULANCE KILO ALS SERVICE EMERGENCY TRANSPORT LEVEL 1 PREPJ& 36646 ALLERGY ROSENTHAL MAR ALLERGEN 6 [facility] IMMUNOTHE OF TRE PEREZ CO 1/[place] [address] [place] [facility] INFUSION 6 [facility] THERAPY INC INC PROPHYLAX IS/DX EA HOUR BLOOD 35856 [place] COUNT 6 [facility] COMPLETE INC INC AUTO&[place] [address] [place] INFUSION 6 [facility] THERAPY/P INC INC ROPHYLAXI S /DX 1ST TO 1 HR RADIOLOGI 45065 [place] [facility] C 6 [facility] EXAMINATI INC INC ON KNEE 3 [place] [address] [place] [facility] TROPONIN 6 [facility] [place] [address] [place] [facility] CERVICAL 6 [facility] SPINE W/[place] [address] [place] [facility] HEAD/BRAI 6 [facility] N W/O INC INC CONTRAST MATERIAL ECG 43326 [place] MAT[place] ROUTINE 6 [facility] W/LEAST P 12 LDS I&R ONLY COMPREHEN 23745 [place] SIVE 6 [facility] METABOLIC INC INC PANEL CREATINE 62615 [place] [facility] KINASE MB 6 [facility] FRACTION INC INC ONLY CREATINE 91896 [place] [facility] KINASE 6 [facility] TOTAL INC INC ECG 92516 [place] ROUTINE 6 [facility] ECG INC INC W/LEAST 12 LDS TRCG ONLY W/O I&R SPACR A4627 [facility] KRASNOPOL BAG/RESRV 6 EQUIPMENT ANTONIO LAUREN OR W/WO INC MASK W/METRD DOSE INHAL SPMTRY 93650 ALLERGY ROSENTHAL MAR W/VC 6 [facility] EXPIRATOR OF [place] Y ABHI CO W/WO MXML VOL VNTJ PERCUTANE 77109 ALLERGY ROSENTHAL MAR OUS TESTS 6 [facility] [place] W/ALLERGE CO LEO EXTRACTS INTRACUTA 88367 ALLERGY ROSENTHAL MAR NEOUS 6 PARTNERS TESTS OF [place] W/ALLERGE CO LEO EXTRACTS NITRIC 83017 ALLERGY ROSENTHAL MAR OXIDE 6 [facility] [place] [address] [facility] TRANSVAGI 6 PHYSICIAN MEAGAN NAL S GROUP ECG 22745 [place] CHAVE[facility] JR ROUTINE 6 [facility] W/LEAST P 12 LDS I&R ONLY IADNA 01034 [place] [facility] NEISSERIA 6 [facility] INC INC GONORRHOE AE AMPLIFIED PROBE TQ IADNA 83642 [place] [facility] CHLAMYDIA 6 [facility] INC INC TRACHOMAT [place] T[place] [address] [facility] [place] ANDREWS TRACT 6 RADIOLOGY RHO UPPER W/WO DELAYED IMAGES W/KUB ECG 71763 [place] ROUTINE 6 [facility] W/LEAST P 12 LDS I&R ONLY RADIOLOGI 60475 [place] CERRAT[place] ALL C 6 MEDICAL EXAMINATI IMAGING ON CHEST ASS SINGLE VIEW FRONTAL ELECTROEN 18202 [facility] CEPHALOGR 6 N AM W/REC NEUROLOGY AWAKE&ASL EEP ECG 68447 [place] ROUTINE 6 [facility] W/LEAST P 12 LDS I&[place] [address] [facility] ABDOMEN & 6 MEDICAL MEDICAL PELVIS IMAGING IMAGING W/CONTRAS ASS ASS T MATERIAL ELECTROEN 82148 [facility] CEPHALOGR 6 N N AM W/REC COMMUNTIY COMMUNTIY AWAKE&[facility]UCK[facility] HOSPITA HOSPITA WSY RADEX 73977 SEJAL CERRATO ALL SPINE 6 MEDICAL THORACIC IMAGING 2 VIEWS ASS RADIOLOGI 08796 SEJAL CERRATO ALL C 6 MEDICAL EXAMINATI IMAGING ON CHEST ASS SINGLE VIEW FRONTAL ECG 28449 [place] [facility] JR ROUTINE 6 [facility] W/LEAST P 12 LDS I&R ONLY COMPUTER- 94933 [facility] HAR[facility]EN AIDED 6 MEDICAL ADRIANNA DETECTION IMAGING ASS SCREENING MAMMOGRAP HY SCREENING G0202 [facility] CANSECO 6 MEDICAL ADRIANNA MAMMOGRAP IMAGING HY [place]ILB[place] [address] [place] [facility] INFUSION 6 [facility] THERAPY/P INC INC ROPHYLAXI S /DX 1ST TO 1 HR BLOOD 67522 [place] [facility] COUNT 6 [facility] COMPLETE INC INC AUTO&[place] [address] [place] [facility] TROPONIN 6 [facility] QUANTITAT INC INC SABIHA RADEX ABD 13853 SEJAL CERRATO ALL COMPL 6 MEDICAL AQT ABD IMAGING W/S/E/D ASS VIEWS 1 VIEW CH ECG 86747 [place] [facility] JR ROUTINE 6 [facility] W/LEAST P 12 LDS I&R ONLY COMPREHEN 74114 [place] [facility] SIVE 6 [facility] METABOLIC INC INC PANEL URNLS DIP 65788 [place] [facility] 6 [facility] STICK/TAB INC INC [place] [address] [place] LACTATE 6 [facility] INC INC ECG 95854 [place] [facility] ROUTINE 6 [facility] ECG INC INC W/LEAST 12 LDS TRCG ONLY W/[place] [address] [place] [facility] INFUSION 6 [facility] THERAPY/P INC INC ROPHYLAXI S /DX 1ST TO 1 HR BLOOD 84689 [place] [facility] COUNT 6 [facility] COMPLETE INC INC AUTO&AUTO DIFRNTL WBC CULTURE 43576 [place] [facility] BACTERIAL 6 [facility] INC INC QUANTTATI VE COLONY COUNT URINE RADIOLOGI 38708 SJEAL CERRATO ALL C EXAM 6 MEDICAL CHEST 2 IMAGING VIEWS ASS FRONTAL&[place] [address] [place] [facility] TROPONIN 6 [facility] QUANTITAT INC INC SABIHA ECG 16228 [place] [facility] ROUTINE 6 [facility] ECG INC INC W/LEAST 12 LDS TRCG ONLY W/O I&R CREATINE 96199 [place] [facility] KINASE 6 [facility] TOTAL INC INC URINE 77103 [place] [facility] 6 [facility] TEST INC INC VISUAL COLOR CMPRSN METHS URNLS DIP 86960 [place] [facility] 6 [facility] STICK/TAB INC INC LET REAGENT AUTO MICROSCOP Y COMPREHEN 70029 [place] SIVE 6 [facility] METABOLIC INC INC PANEL ECG 82246 [place] [facility] ROUTINE 6 [facility] W/LEAST P 12 LDS I&R ONLY CREATINE 48602 [place] [facility] KINASE MB 6 [facility] FRACTION INC INC ONLY RADEX ABD 22576 SEJAL CERRATO ALL COMPL 6 MEDICAL AQT ABD IMAGING W/S/E/D ASS VIEWS 1 VIEW CH GROUND A0425 [facility] MILEAGE 6 AMBULANCE AMBULANCE PER SERVICE SERVICE STATUTE MILE AMB A0427 [facility] SERVICE 6 AMBULANCE AMBULANCE ALS SERVICE SERVICE EMERGENCY TRANSPORT LEVEL 1 THER 73770 [facility] PROPH/DX 6 N N NJX IV COMMUNTIY COMMUNTIY PUSH HOSPITA HOSPITA SINGLE/1S T SBST/DRUG BLOOD 09324 [facility] COUNT 6 N N COMPLETE COMMUNTIY COMMUNTIY AUTO&AUT[place] [address] [facility] INFUSION 6 N N HYDRATION COMMUNTIY COMMUNTIY EACH HOSPITA HOSPITA ADDITIONA L HOUR MRI BRAIN 85492 [facility] BRAIN 6 N N STEM W/O COMMUNTIY COMMUNTIY CONTRAST HOSPITA HOSPITA MATERIAL COMPREHEN 44450 [facility] SIVE 6 N N METABOLIC COMMUNTIY COMMUNTIY PANEL HOSPITA HOSPITA COLLECTIO 74918 [facility] N VENOUS 6 N N BLOOD COMMUNTIY COMMUNTIY VENIPUNCT HOSPITA HOSPITA URE ECG 28866 [place] [facility] ROUTINE 6 [facility] W/LEAST P 12 LDS I&R ONLY RADIOLOGI 14386 [place] CERRAT[place] ALL C 6 MEDICAL EXAMINATI IMAGING [place] [address] [place] C[place] ALL ABDOMEN & 6 MEDICAL PELVIS IMAGING W/[place] [address] [place] C[place] ALL HEAD/BRAI 6 MEDICAL N W/O IMAGING CONTRAST ASS MATERIAL GROUND A0425 [facility] MILEAGE 6 AMBULANCE AMBULANCE PER SERVICE SERVICE STATUTE MILE AMB A0427 [facility] SERVICE 6 AMBULANCE AMBULANCE ALS SERVICE SERVICE EMERGENCY TRANSPORT LEVEL 1 THERAPEUT 51862 [facility] IC PX 1/> 6 AREAS EACH 15 MIN EXERCISES CHIROPRAC 64786 [facility] TIC 6 MANIPULAT SABIHA TX SPINAL 3-4 REGIONS MANUAL 40647 [facility] THERAPY 6 TQS 1/> REGIONS EACH 15 MINUTES CHIROPRAC 25598 [facility] TIC 6 MANIPLTV TX EXTRASPIN AL 1/> REGION MANUAL 45350 [facility] THERAPY 6 TQS 1/> REGIONS EACH 15 MINUTES THERAPEUT 13161 [facility]UK[facility] IC PX 1/> 6 AREAS EACH 15 MIN EXERCISES CHIROPRAC 21874 [facility] TIC 6 MATTI MATTI MANIPULAT SABIHA TX SPINAL 3-4 REGIONS THERAPEUT 24165 [facility] LUKING IC PX 1/> 6 MATTI MATTI AREAS EACH 15 MIN EXERCISES MANUAL 58779 [facility] THERAPY 6 MATTI MATTI TQS 1/> REGIONS EACH 15 MINUTES CHIROPRAC 07808 [facility]UK[facility] TIC 6 MATTI MATTI MANIPLTV TX EXTRASPIN AL 1/> REGION IMHISTOCH 19888 SCALF LEI SCALF LEI EM/CYTCHM 6 1ST [place] [address] SCALF LEI SCALF LEI SURG 6 PATHOLOGY GROSS&BRYCE ROSCOPIC EXAM BX SKIN 21334 SCALF LEI SCALF LEI SUBCUTANE 6 OUS&/MUCO US MEMBRANE 1 LESION COMPREHEN 81704 [facility] SIVE 6 DIAGNOSTI DIAGNOSTI METABOLIC CS CS PANEL ECG 30546 [place] GIOVANI ROUTINE 6 [facility] W/LEAST P 12 LDS I&R ONLY COLLECTIO 59988 ZOROASTRIANISM ZOROASTRIANISM N VENOUS 6 [facility] BLOOD [facility] VENIPUNCT URE ECG 13706 ZOROASTRIANISM MCKENNA ROUTINE 6 HEALTH IV HEN ECG MEDICAL W/LEAST GROUP 12 LDS I&R ONLY LIPID 58901 [facility]OROASTRIANISM ZOROASTRIANISM PANEL [address] [place] [address] HEMOGLOBI 29748 [facility]OASTRIANISM ZOROASTRIANISM N [address] [place] [address] HEALTH GLYCOSYLA [facility] LANEY A1C BASIC 53894 ZOROASTRIANISM ZOROASTRIANISM METABOLIC 6 [facility] HEALTH PANEL [facility] CALCIUM [place] CATH PLMT [address]487 ZOROASTRIANISM MCKENNA L HRT & 6 HEALTH IV ARTS MEDICAL W/NJX & GROUP ANGIO IMG S&I LOCM Q9967 ZOROASTRIANISM ZOROASTRIANISM [phone] 6 [facility] MG/ML [facility] IODINE CONCENTRA TION PER ML INJECTION J3010 ZOROASTRIANISM ZOROASTRIANISM FENTANYL 6 [facility] CITRATE [facility] 0.1 MG BLOOD 23407 ZOROASTRIANISM ZOROASTRIANISM COUNT 6 [facility] OY LX Therapies COMPLETE [facility] AUTOMATED GONADOTRO 69241 ZOROASTRIANISM ZOROASTRIANISM PIN 6 [facility] OY LX Therapies CHORIONIC [facility] QUANTITAT SABIHA INJECTION J1644 ZOROASTRIANISM ZOROASTRIANISM HEPARIN 6 [facility] OY LX Therapies SODIUM [facility] PER 1000 UNITS CV STRS 70431 [place] [facility] TST 6 [facility] XERS&/OR INC INC RX CONT ECG TRCG ONLY TECHNETIU A9500 [place] TC-99M 6 [facility] SESTAMIBI INC INC DX PER STUDY DOSE UNCLASSIF J3490 [place] [facility] IED DRUGS 6 [facility] INC INC CV STRS 65872 [place] [facility] TST 6 [facility] RX CONT P P ECG W/O I&R CV STRS 74303 [place] [facility] TST 6 [facility]&/[facility] RX CONT P P ECG I&R ONLY MYOCARDIA 73648 SEJAL CERRATO ALL L SPECT 6 MEDICAL MULTIPLE IMAGING STUDIES ASS ECHO 30337 MELANIE RODRIGUEZ LEENA TTHRC R-T 6 MEDICAL 2D SERV W/WOM-MOD FOUNDATIO E COMPL N SPEC&COLR D ECG 92393 [place] [facility] JR ROUTINE 6 [facility] W/LEAST P 12 LDS I&R ONLY RADIOLOGI 43646 SEJAL CERRATO ALL C 6 MEDICAL EXAMINATI IMAGING ON CHEST ASS SINGLE VIEW FRONTAL OPHTH 53876 [facility] MEDICAL 6 XM&EVAL COMPRHNSV ESTAB PT 1/> [place] [address] LAB [facility] IRON 6 [place] [address] [facility] FOLIC 6 MAI MAI [place] [address] [facility] FERRITIN 6 [place] [address] [facility] MAGNESIUM 6 MAI MAI [facility]INGS HOLDINGS ORGANIC 33016 LAB [facility] ACID 1 6 MAI MAI [place]IT[place] [address] [facility] PARATHORM 6 MAI MAI ONE HOLDINGS HOLDINGS 25 97122 [facility] HYDROXY 6 MAI MAI INCLUDES HOLDINGS HOLDINGS FRACTIONS IF PERFORMED COMPREHEN 16750 [facility] SIVE 6 MAI MAI METABOLIC [place] [address] LAB [facility] ZINC 6 [place] [address] LAB [facility] PHOSPHORU 6 MAI MAI S HOLDINGS HOLDINGS INORGANIC PREALBUMI 86461 LAB [facility] N 6 [place] [address] LAB [facility] TOCOPHERO 6 MAI MAI L ALPHA [place] [address] LAB [facility] VITAMIN A 6 [place] [address] LAB [facility] LAB [facility] THIAMINE- 6 [facility] VITAMIN HOLDINGS HOLDINGS B-1 BLOOD 79337 LAB [facility] LAB MAHESH COUNT 6 [facility] COMPLETE HOLDINGS HOLDINGS AUTO&AUTO DIFRNTL WBC BLOOD 52707 [place] [facility] COUNT 6 [facility] COMPLETE INC INC AUTO&[place] [address] [place] [facility] THYROID 6 [facility] STIMULATI INC INC NG HORMONE TSH COMPREHEN 51883 [place] [facility] SIVE 6 [facility] METABOLIC INC INC PANEL COLLECTIO 03777 [place] [facility] N VENOUS 6 [facility] BLOOD INC INC VENIPUNCT URE 25 15535 [place] [facility] HYDROXY 6 [facility] INCLUDES INC INC FRACTIONS IF PERFORMED IRON 26044 [place] [facility] BINDING 6 [facility] [place] [address] [facility] VAUGHN FERRITIN [place] [address] [place] [facility] IRON 6 [facility] INC INC IADNA 52278 P&C [facility] NEISSERIA 6 LLC GONORRHOE AE AMPLIFIED PROBE TQ CYTP C/V 33829 P&C [facility] AUTO THIN 6 LLC LYR PREPJ SCR MNL RESCR PHYS CYTP 71706 P&C [facility] CERVICAL/ 6 LLC VAGINAL REQ INTERP PHYSICIAN IADNA 18398 P&C [facility] CHLAMYDIA 6 LLC TRACHOMAT IS AMPLIFIED PROBE TQ IADNA 71418 P&C LABS, NAJERA HUMAN 6 LLC PAPILLOMA [place] [address] [place] [facility] THYROID 6 [facility] STIMULATI INC INC NG HORMONE TSH BASIC 45069 [place] [facility] METABOLIC 6 [facility] PANEL INC INC CALCIUM TOTAL COLLECTIO 58806 [place] [facility] N VENOUS 6 [facility] BLOOD INC INC VENIPUNCT URE COMPREHEN 48260 [place] SIVE 6 [facility] METABOLIC INC INC PANEL COLLECTIO 83083 [place] [facility] N VENOUS 6 [facility] [place] [address] [place] [facility] FERRITIN 6 [place] [address] [place] [facility] IRON 6 [facility] INC INC ORGANIC 03684 [place] [facility] ACID 1 6 [facility] QUANTITAT INC INC SABIHA PREALBUMI 51025 [place] N 6 [place] [address] [place] [facility] THIAMINE- 6 [facility] VITAMIN INC INC B-1 BLOOD 22200 [place] [facility] COUNT 6 [facility] COMPLETE INC INC AUTO&[place] [address] LAB [facility] LAB [facility] THIAMINE- 5 MAI MA[facility] VITAMIN HOLDINGS HOLDINGS B-1 PREALBUMI 13144 LAB MAH[facility] LAB MAHESH N 5 MAI MAI HOLDINGS HOLDINGS ORGANIC 84911 LAB [facility] LAB [facility] ACID 1 5 MAI MAI QUANTITAT [place] [address] LAB [facility] LAB MAHESH IRON 5 [place] [address] LAB MA[facility] LAB MAHESH FERRITIN 5 [place] [address] LAB MAHESH LAB [facility] FOLIC 5 MAI MAI ACID HOLDINGS HOLDINGS SERUM GENERAL 49015 LAB [facility] LAB MA[facility] HEALTH 5 MAI MAI PANEL HOLDINGS HOLDINGS DESTRUCTI 22047 ATKINS ATKINS ON BENIGN 5 TRA TRA LESIONS UP TO 14 DESTRUCTI 64551 ATKINS ATKINS ON 5 TRA TRA PREMALIGN AN[place] L[place] 1[place] [address] SCALF LEI SCALF LEI SURG 5 PATHOLOGY GROSS&BRYCE ROSCOPIC EXAM BX SKIN 36713 ATKINS ATKINS SUBCUTANE 5 TRA TRA OUS&/MUCO US MEMBRANE 1 LESION BIOPSY 08-18-201 31412 ATKINS ATKINS SKIN 5 TRA TRA SUBQ&/MUC OUS MEMBRANE EA ADDL LESN BLOOD 16013 LAB [facility] LAB MAHESH COUNT 5 MAI MAI COMPLETE HOLDINGS HOLDINGS AUTO&AUTO DIFRNTL WBC PREALBUMI 57150 [facility] LAB MAHESH N 5 [place] [address] LAB MAHESH LAB MAHESH THIAMINE- [facility] VITAMIN HOLDINGS HOLDINGS B-[address] [place] [address] LAB MAHESH LAB MAHESH FOLIC [address] [facility] ACID HOLDINGS HOLDINGS SERUM COMPREHEN 78327 LAB MAHESH LAB MAHESH SIVE [facility] METABOLIC [place] [address] LAB MAHESH LAB MAHESH IRON [address] [facility] HOLDINGS HOLDINGS ORGANIC 66016 LAB MA[facility] LAB [facility]HESH ACID [address] [facility] QUANTITAT HOLDINGS HOLDINGS SABIHA COMPUTER- 07[address] [facility] AIDED 5 MEDICAL CARMEN DETECTION IMAGING ASS SCREENING MAMMOGRAP HY SCREENING G0202 [place] [address] MEDICAL CARMEN MAMMOGRAP IMAGING HY WILBERT ASS INCL CAD WHEN PERFORMD BLOOD 93199 [place] [facility] COUNT 5 [facility] COMPLETE INC INC AUTO&[place] [address] [facility] [facility] THYROID 5 [facility] STIMULATI INC INC NG HORMONE TSH CYANOCOBA 04379 [place] [facility] LYUBOV 5 [facility] VITAMIN INC INC B-12 [place] [address] [facility] [facility] GLUTAMYLT 5 [facility] RASE INC INC GAMMA COMPREHEN 24387 [place] [facility] SIVE 5 [facility] METABOLIC INC INC PANEL 25 95553 [facility] [facility] HYDROXY 5 [facility] INCLUDES INC INC FRACTIONS IF PERFORMED COLLECTIO 75517 [place] [facility] N VENOUS 5 [facility] BLOOD INC INC VENIPUNCT URE HEMOGLOBI 02828 [place] [facility] N 5 [facility] GLYCOSYLA INC INC LANEY A1C LIPID 54745 [place] [facility] PANEL 5 [facility] INC INC OPHTH 56534 SCIFRES SCIFRES MEDICAL 5 ANG ANG XM&EVAL COMPRHNSV ESTAB PT 1/> [place] [address] [facility] ABDOMEN & 5 N N PELVIS COMMUNTIY COMMUNTIY W/[place] [address] [place] [facility] ABDOMEN & 5 [facility] PELVIS INC INC W/CONTRAS T MATERIAL COMPREHEN 67557 [place] TALLEYON SIVE 5 [facility] [place] [address] [place] [facility] AMYLASE 5 [facility] INC INC URNLS DIP 13288 [place] [facility] 5 [facility] STICK/TAB INC INC [place] [address] [place] [facility] LIPASE 5 [facility] INC INC URINE 46321 [place] [facility] 5 [facility] TEST INC INC VISUAL COLOR CMPRSN METHS BLOOD 11646 [place] [facility] COUNT 5 [facility] COMPLETE INC INC AUTO&AUTO DIFRNTL WBC CULTURE 62567 [place] [facility] BACTERIAL 5 [facility] INC INC QUANTTATI VE COLONY COUNT URINE BLOOD 43126 [facility] COUNT 5 N N COMPLETE COMMUNTIY COMMUNTIY AUTO&AUTO HOS[place] [id number] [facility] TOCOPHERO 5 N N L ALPHA COMMUNTIY COMMUNTIY V[place] [address] [facility] VITAMIN A 5 N N COMMUNTIY COMMUNTIY HOSPITA HOSPITA PREALBUMI 97559 [facility] N 5 N N COMMUNTIY [place] [address] [facility] THIAMINE- 5 N N VITAMIN COMMUNTIY COMMUNTIY B-[place] [address] [facility] PHOSPHORU 5 N N S COMMUNTIY COMMUNTIY [place] [address] [facility] ZINC 5 N N COMMUNTI[place] [address] [facility] FOLIC 5 N N ACID COMMUNTIY COMMUNTI[place] [address] [facility] LIPASE 5 N N COMM[place] [address] [facility] MAGNESIUM 5 N N COMMUNTIY COMMUNTIY HOSPITA HOSPITA 50673 [facility] ABDOMINAL 5 N N REAL COMMUNTIY COMMUNTIY TIME HOSPITA HOSPITA W/IMAGE LIMITED ORGANIC 61357 [facility] ACID 1 5 N N QUANTITAT COMMUNTIY COMMUNTI[place] [address] [facility] PARATHORM 5 N N ONE COMMUNTIY COMMUNTIY HOSPITA HOSPITA COLLECTIO 84907 [facility] N VENOUS 5 N N BLOOD COMMUNTIY COMMUNTIY VENIPUNCT HOSPITA HOSPITA URE COMPREHEN 32394 [facility] SIVE 5 N N METABOLIC COMMUNTIY COMMUNTIY PANEL HOSPITA HOSPITA 25 [id number] [facility] HYDROXY 5 N N INCLUDES COMMUNTIY COMMUNTIY FRACTIONS [place] [address] [facility] AMYLASE 5 N N COMMUNTIY COMMUNTIY HOSPITA HOSPITA COMPREHEN 01233 [facility] SIVE 5 N N METABOLIC COMMUNTIY COMMUNTIY PANEL HOSPITA HOSPITA COLLECTIO 09557 [facility] N VENOUS 5 N N BLOOD COMMUNTIY COMMUNTIY [place]IP[place] [address] [facility] GAMMAGLOB 5 N N ULIN IGA COMMUNTIY COMMUNTIY IGD IGG HOSPITA HOSPITA IGM EACH ALPHA-1-A 26419 [facility] NTITRYPSI 5 N N N TOTAL COMMUNTIY COMMUNTIY HOSPITA HOSPITA IRON 10199 [facility] BINDING 5 N N CAPACITY COMM[place] [address] [facility] 5 [facility] TONEAL INC [place] TIME W/[place] [id number] [facility] RETROPERI 5 MEDICAL TONEAL IMAGING REAL TIME ASS W/IMAGE LIMITED IMMUNOASS 64907 [facility] AY 5 N N ANALYTE COMMUNTIY COMMUNTIY QUAL/SEMI HOSPITA [place] [address] [facility] IRON 5 N N COMMUNTI[place] [address] [facility] FERRITIN 5 N N COMMUNTIY COMMUNTIY HOSPITA HOSPITA ANTINUCLE 35392 [facility] AR 5 N N ANTIBODIE COMMUNTIY COMMUNTIY S SANNA HOSPITA HOSPITA BLOOD 22673 [facility] COUNT 5 N N COMPLETE COMMUNTIY COMMUNTIY AUTOMATED HOSPITA HOSPITA HEPATITIS 35478 [facility] C 5 N N ANTIBODY COMMUNTIY COMMUNTIY HOSPITA HOSPITA HEPATITIS 15703 [facility] B CORE 5 N N ANTIBODY COMMUNTIY COMMUNTIY HBCAB HOSPITA HOSPITA TOTAL HEPATITIS 72254 [facility] B SURF 5 N N ANTIBODY COMMUNTIY COMMUNTI[place] [address] [facility] HEPATITIS 5 N N B COMMUNTIY COMMUNTIY SURFACE HOSPITA HOSPITA ANTIGEN PROTHROMB 45512 [facility] IN TIME 5 N [place] [address] [place]IE ABDOMEN & 5 MEDICAL PELVIS IMAGING W/O ASS CONTRAST MATERIAL DUP-SCAN 64661 [facility] [place] ANDREWS XTR VEINS 5 RADIOLOGY [place] [address] [facility] LIPASE 5 N N COMMUNTIY COMMUNTIY HOSPITA HOSPITA COLLECTIO 68091 [facility] N VENOUS 5 N N BLOOD COMMUNTIY COMMUNTIY VENIPUNCT HOSPITA HOSPITA URE COMPREHEN 02780 [facility] SIVE 5 N N METABOLIC COMMUNTIY COMMUNTI[place] [address] [facility] AMYLASE 5 N N COMMUNTIY COMMUNTIY HOSPITA HOSPITA BLOOD 85153 [facility] COUNT 5 N N COMPLETE COMMUNTIY COMMUNTIY AUTO&AUTO HOSPITA [place] [address] [facility] [place] SCALF HUBER TRACT 5 RADIOLOGY UPPER W/WO DELAYED IMAGES W/KUB LAPS 44385 BLUEGRASS SANCHEZ MICHELLE GSTRC 5 RSTRICTIV BARIATRIC PX SURGICAL LONGITUDI NAL GASTRECTO MY ANES IPR 51298 [place] BRITTNY ANT UPPER 5 ANESTHESI ABDOMEN A GROUP LAPS PS GASTRIC RSTCV MO LAPAROSCO 4382 [facility] PIC 5 N N VERTICAL COMMUNTIY COMMUNTIY SLEEVE HOSPITA HOSPITA GASTRECTO MY OTHER 4513 [facility] ENDOSCOPY 5 N N OF SMALL COMMUNTIY COMMUNTIY HOSPITA HOSPITA INTESTINE APPLICATI 12849 [place] [facility] ON 5 [facility] MODALITY INC INC 1/> AREAS HOT/COLD PACKS APPL 08701 [place] [facility] MODALITY 5 [facility] 1/> AREAS INC INC ULTRASOUN D EA 15 MIN APPL 53248 [place] [facility] MODALITY 5 [facility] 1/> AREAS INC INC ELEC STIMJ UNATTENDE D GONADOTRO 38132 [facility] PIN 5 N N CHORIONIC COMMUNTIY COMMUNTIY HOSPITA HOSPITA QUALITATI VE BLOOD 24569 [facility] COUNT 5 N N COMPLETE COMMUNTIY COMMUNTIY AUTOMATED HOSPITA HOSPITA DUP-SCAN 86618 [place] HARLE[place] XTR VEINS 5 MEDICAL ADRIANNA COMPLETE IMAGING ASS BILATERAL STUDY COMPREHEN 07650 [facility] SIVE 5 N N METABOLIC COMMUNTIY COMMUNTIY PANEL HOSPITA HOSPITA COLLECTIO 07256 [facility] N VENOUS 5 N N BLOOD COMMUNTIY COMMUNTIY VENIPUNCT HOSPITA HOSPITA URE APPL 22718 [place] [facility] MODALITY 5 [facility] 1/> AREAS INC INC ULTRASOUN D EA 15 MIN THERAPEUT 67622 [place] [facility] IC PX 1/> 5 [facility] AREAS INC INC EACH 15 MIN EXERCISES APPLICATI 78713 [place] [facility] ON 5 [facility] MODALITY INC INC 1/> AREAS HOT/COLD PACKS APPL 93524 [place] [facility] MODALITY 5 [facility] 1/> AREAS INC INC ELEC STIMJ UNATTENDE D CUL BACT 15813 [place] [facility] XCPT 5 [facility] URINE INC INC BLOOD/STO OL AEROBIC ISOL SUSCEPTIB 15581 [place] [facility] LTY STDY 5 [facility] ANTIMICRB INC INC IAL MICRO/AGA R DILUTJ APPL 89120 [place] [facility] MODALITY 5 [facility] 1/> AREAS INC INC ULTRASOUN D EA 15 MIN THERAPEUT 40586 [place] [facility] IC PX 1/> 5 [facility] AREAS INC INC EACH 15 MIN EXERCISES APPLICATI 54671 [place] [facility] ON 5 [facility] MODALITY INC INC 1/> AREAS HOT/COLD PACKS APPL 99692 [place] [facility] MODALITY 5 [facility] 1/> AREAS INC INC ELEC STIMJ UNATTENDE D APPL 19290 [place] [facility] MODALITY 5 [facility] 1/> AREAS INC INC ELEC STIMJ UNATTENDE D APPLICATI 72222 [place] [facility] ON 5 [facility] MODALITY INC INC 1/> AREAS HOT/COLD PACKS APPL 30641 [place] [facility] MODALITY 5 [facility] 1/> AREAS INC INC IONTOPHOR ESIS EA 15 MIN APPL 33998 [place] [facility] MODALITY 5 [facility] 1/> AREAS INC INC ULTRASOUN D EA 15 MIN APPL 50928 [place] [facility] MODALITY 5 [facility] 1/> AREAS INC INC ULTRASOUN D EA 15 MIN THERAPEUT 38076 [place] [facility] IC PX 1/> 5 [facility] AREAS INC INC EACH 15 MIN EXERCISES APPL 30406 [place] MODALITY 5 [facility] 1/> AREAS INC INC IONTOPHOR ESIS EA 15 MIN APPLICATI 25573 [place] [facility] ON 5 [facility] MODALITY INC INC 1/> AREAS HOT/COLD PACKS APPL 74239 [place] [facility] MODALITY 5 [facility] 1/> AREAS INC INC ELEC STIMJ UNATTENDE D THYROID 47077 [facility] HORM 5 N N UPTK/THYR COMMUNTIY COMMUNTIY OID HOSPITA H[place] [address] [facility] THYROXINE 5 N N TOTAL COMMUNTIY COMMUNTIY HOSPITA HOSPITA RADIOLOGI 24368 [facility] C EXAM 5 N N CHEST 2 COMMUNTIY COMMUNTIY VIEWS HOSPITA HOSPITA [place]ONTAL&[place] [address] [facility] THYROID 5 N N STIMULATI COMMUNTIY COMMUNTIY NG HOSPITA HOSPITA HORMONE TSH CUL 47192 [facility] PRSMPTV 5 N N PTHGNC COMMUNTIY COMMUNTIY ORGANISM HOSPITA HOSPITA SCRN W/COLONY ESTIMJ BLOOD 87526 [facility] COUNT 5 N N COMPLETE COMMUNTIY COMMUNTIY AUTOMATED HOSPITA HOSPITA COLLECTIO 30279 [facility] N VENOUS 5 N N BLOOD COMMUNTIY COMMUNTIY VENIPUNCT HOSPITA HOSPITA URE LIPID 01050 [facility] PANEL 5 N N COMMUNTIY COMMUNTIY HOSPITA HOSPITA COMPREHEN 57083 [facility] SIVE 5 N N METABOLIC COMMUNTIY COMMUNTIY PANEL HOSPITA HOSPITA ECG 87282 [facility] ROUTINE 5 N N ECG COMMUNTIY COMMUNTIY W/LEAST HOSPITA HOSPITA 12 LDS TRCG ONLY W/O I&R PHYSICAL 20450 [place] [facility] THERAPY 5 [facility] EVALUATIO INC INC N FIBRIN 71473 [place] [facility] DGRADJ 5 [facility] PRODUCTS INC INC D-DIMER QUAL/SEMI GILBERT COLLECTIO 37034 [place] Gutierrez VENOUS 5 [facility] BLOOD INC INC VENIPUNCT URE URNLS DIP 80545 [place] [facility] 5 [facility] STICK/TAB INC INC LET REAGENT AUTO MICROSCOP Y ECG 41472 [place] CHAVEZ JR ROUTINE 5 [facility] W/LEAST P 12 LDS I&R ONLY COMPREHEN 18885 [place] [facility] SIVE 5 [facility] METABOLIC INC INC PANEL ECG 30346 [place] [facility] ROUTINE 5 [facility] ECG INC INC W/LEAST 12 LDS TRCG ONLY W/O I&R BLOOD 52916 [place] [facility] COUNT 5 [facility] COMPLETE INC INC AUTO&AUTO DIFRNTL WBC RADIOLOGI 28361 [place] [facility] C EXAM 5 [facility] CHEST 2 INC INC VIEWS FR[place]AL&[place] [address] [place] [facility] TROPONIN 5 [facility] [place] [address] [place] [facility] TROPONIN 5 [facility] QUANTITAT INC INC SABIHA RADIOLOGI 88765 [place] [facility] C EXAM 5 [facility] CHEST 2 INC INC VIEWS FRONTAL&L ATERAL BLOOD 11888 [place] [facility] COUNT 5 [facility] COMPLETE INC INC AUTO&AUTO DIFRNTL WBC FIBRIN 45247 [place] [facility] DGRADJ 5 [facility] PRODUCTS INC INC D-DIMER QUAL/SEMI GILBERT LOCM Q9967 [place] [facility] 300-399 5 [facility] MG/ML INC [place] [address] [place] [facility] ANGIOGRAP 5 [facility] HY CHEST INC INC W/CONTRAS T/NONCONT RAST ECG 41768 [place] [facility] ROUTINE 5 [facility] ECG INC INC W/LEAST 12 LDS TRCG ONLY W/O I&R COMPREHEN 79142 [place] [facility] SIVE 5 [facility] METABOLIC INC INC PANEL ECG 89377 [place] MATUTE ROUTINE 5 [facility] W/LEAST P 12 LDS I&R ONLY RADEX 81948 [place] HARLEEN SHOULDER 4 MEDICAL COMPLETE IMAGING MINIMUM 2 ASS VIEWS LEVEL III 71698 SCALF LEI SCALF LEI SURG 4 PATHOLOGY GROSS&BRYCE ROSCOPIC EXAM DESTRUCTI 11566 ATKINS ATKINS ON BENIGN 4 TRA TRA LESIONS UP TO 14 REPAIR 70318 ATKINS ATKINS COMPLEX 4 TRA TRA SCALP/ARM /LE[place] 1.1-[address] [address] [facility] HEAD/BRAI 4 MEDICAL ADRIANNA N W/O IMAGING CONTRAST ASS MATERIAL THERAPEUT 91200 [place] [facility] IC 4 [facility] INJECTION INC INC IV PUSH EACH NEW DRUG SPECIAL 52956 [facility], P[facility] STAIN 4 [facility] GROUP 1 MICROORGA NISMS I&R SPCL STN 93551 [facility], PICKLESIM 2 I&R 4 [facility] EXCPT MICROORG/ ENZYME/IM CYT ANES 84741 [facility] UPPER GI 4 ANESTHESI JOSE ANGEL ENDOSCOPY A GROUP [place] [address] [facility], PICKLESIM SURG 4 [facility] PATHOLOGY GROSS&BRYCE ROSCOPIC EXAM EGD 36214 [facility] TRANSORAL 4 N N BIOPSY [facility] SINGLE/MU HOSPITA HOSPITA LTIPLE SPMTRY 34150 [place] [facility] W/VC 4 [facility] HOSP EXPIRATOR INC INC Y ABHI W/WO MXML VOL VNTJ LEVEL III 89282 SCAL[facility] LEI SCALF LEI SURG 4 PATHOLOGY GROSS&BRYCE ROSCOPIC EXAM REPAIR 36441 ADVANCED SCALF LEI COMPLEX 4 DERMATOLO SCALP/ARM GY /LEG 1.1-2.5 CM EXC B9 36536 ADVANCED SCALF LEI LESION 4 DERMATOLO MRGN XCP GY SK TG S/N/H/F/G 1.1-2.0CM RADIOLOGI 10207 [facility] C EXAM 4 MEDICAL ADRIANNA CHEST 2 IMAGING VIEWS ASS FRONTAL&L ATERAL REMOVAL 08054 ARACELI WAYNEKINS SKN TAGS 4 TRA 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 FIBRQ TAGS ANY AREA UPW/15 CV STRS 24108 [place] TST 4 [facility] XERS&/OR INC INC RX CONT ECG TRCG ONLY CV STRS 59843 [place] MATUTE TST 4 [facility] XERS&/OR HOSPITAL RX CONT P ECG I&R ONLY ECHO 24960 [place] TTHRC R-T 4 [facility] 2D INC INC W/WOM-MOD E COMPL SPEC&COLR D RADIOLOGI 86776 SEJAL GILMAN C EXAM 4 MEDICAL CARMEN CHEST 2 IMAGING VIEWS ASS FRONTAL&L ATERAL ECG 46182 [place] [facility] ROUTINE 4 [facility] ECG INC INC W/LEAST 12 LDS TRCG ONLY W/O I&R BASIC 65073 [place] [facility] METABOLIC 4 [facility] PANEL INC INC CALCIUM TOTAL ECG 65436 SCOTT CHAVEZ JR ROUTINE 4 DWI DWI ECG W/LEAST 12 LDS I&[place] [address] [place] [facility] TROPONIN 4 [facility] QUANTITAT INC INC SABIHA BLOOD 66968 [place] [facility] COUNT 4 [facility] COMPLETE INC INC AUTO&AUTO DIFRNTL WBC RADIOLOGI 17946 HARLEEN HARLEEN C 4 ADRIANNA ADRIANNA EXAMINATI ON CHEST SINGLE VIEW FRONTAL BLOOD 23190 [place] [facility] COUNT 4 [facility] COMPLETE INC INC AUTO&[place] [address] [place] [facility] TROPONIN 4 [facility] QUANTITAT INC INC SABIHA FIBRIN 55910 [place] [facility] DGRADJ 4 [facility] PRODUCTS INC INC D-DIMER QUAL/SEMI GILBERT ECG 22992 ANKUR PASCUAL ROUTINE 4 BRYCE BRYCE ECG W/LEAST 12 LDS I&R ONLY CREATINE 65056 [place] [facility] KINASE MB 4 [facility] FRACTION INC INC ONLY CREATINE 75153 [place] [facility] KINASE 4 [facility] TOTAL INC INC COMPREHEN 44220 [place] [facility] SIVE 4 [facility] METABOLIC INC INC PANEL ECG 16764 [place] [facility] ROUTINE 4 [facility] ECG INC INC W/LEAST 12 LDS TRCG ONLY W/O I&R RADIOLOGI 43336 BEINEKE D BEINEKE D C EXAM 4 CHEST 2 VIEWS FRONTAL&L ATERAL HEMOGLOBI 99956 COMBINED COMBINED N 4 PHYSICIAN PHYSICIAN GLYCOSYLA S LA S LA LANEY A1C LIPID 24711 COMBINED COMBINED PANEL 4 PHYSICIAN PHYSICIAN S LA S LA 25 61554 COMBINED COMBINED HYDROXY 4 PHYSICIAN PHYSICIAN INCLUDES S LA S LA FRACTIONS IF PERFORMED CYANOCOBA 93327 COMBINED COMBINED LYUBOV 4 PHYSICIAN PHYSICIAN VITAMIN S LA S LA B-12 GENERAL 08518 COMBINED COMBINED HEALTH 4 PHYSICIAN PHYSICIAN PANEL S LA S LA SEDIMENTA 15739 COMBINED COMBINED TION RATE 4 PHYSICIAN PHYSICIAN [place] [address] COMBINED COMBINED FREE 4 PHYSICIAN PHYSICIAN THYROXINE S LA S LA COMPUTER- 24458 [place] HARLEEN AIDED 4 MEDICAL ADRIANNA DETECTION IMAGING ASS SCREENING MAMMOGRAP HY SCREENING G0202 [place] HARLEEN 4 MEDICAL ADRIANNA MAMMOGRAP IMAGING HY WILBERT ASS INCL CAD WHEN PERFORMD LIPID 19900 [facility] PANEL 4 DIAGNOSTI DIAGNOSTI CS CS IIV3 10153 DHS/CO [place] VACCINE 9 [facility] VIRUS 0.5 BANK ACCT ML DOSAGE IM USE RADEX 03422 [place] [facility] SPINE 9 [facility] LUMBOSACR INC INC AL MINIMUM 4 VIEWS RADEX HIP 08090 [place] SUMA 9 MEDICAL MAX P UNILATERA IMAGING L ASSOCIATE COMPLETE S MINIMUM 2 VIEWS RADEX 28866 KIMBERLEE SANCHEZEY, SPINE 9 [facility] LUMBSCRL CORPORATI COMPL ON W/BENDING VIEWS MIN 6 RADIOLOGI 85879 [place] [facility] C 9 [facility] EXAMINATI INC INC ON PELVIS 1/2 VIEWS Encounters Encounter Start End Date Code Location Performer Type Date OFFICE 51656 [facility] OUT[facility]IEN 7 7 [place] T VISIT INTERNAL 15 MED MINUTES EMERGENCY 38929 [facility] SANCHEZEY DEPT 7 7 PHYSICIAN VISIT S, [facility] HIGH SEVERITY& THREAT [facility] [place] [facility] 7 [facility] OUTPATIEN INC T OFFICE 28843 [place] OUT[facility]IEN 7 7 [facility] T VISIT 5 INC MINUTES [facility] [place] [facility] OUTPATIEN INC T EMERGENCY 68653 [place] 7 7 [facility] DEPARTMEN INC T VISIT MODERATE SEVERITY EMERGENCY 54853 [facility] SANDHU DEPT 7 7 PHYSICIAN VISIT S, [facility] HIGH SEVERITY& THREAT [facility] - 7 7 HEALTH OUTPATIEN [place] T OFFICE 23745 [facility] A[facility]LAN OUTPATIEN 7 7 [place] T VISIT INTERNAL 15 MED MINUTES [facility]OSPITAL [facility] - 7 7 [facility] OUTPATIEN [place] T OFFICE 94058 [place] CARTAGENAONE OUTPATIEN 7 7 [facility] T VISIT HOSPITAL 10 P MINUTES OFFICE 30699 ZOROASTRIANISM FUNES OUTPATIEN 7 7 HEALTH T VISIT MEDICAL 25 GROUP MINUTES [facility] [place] [facility] OUTPATIEN INC T OFFICE 40896 YVETTE AVINA OUTPATIEN 7 7 MD RHIANNON, T VISIT PSC 15 MINUTES OFFICE 15536 [place] OUTPATIEN 7 7 [facility] T VISIT INC 10 MINUTES OFFICE 86746 [place] OUTPATIEN 7 7 [facility] T VISIT 5 INC MINUTES [facility] [place] [facility] OUTPATIEN INC T OFFICE 44949 [place] WEISS JR OUTPATIEN 7 7 [facility] 10 P MINUTES [facility] [place] [facility] 7 7 [facility] OUTPATIEN INC T EMERGENCY 77354 SMI[facility] PASCUAL DEPT 7 7 PHYSICIAN VISIT S, [facility] HIGH SEVERITY& THREAT FUNJ EMERGENCY 42988 [place] 7 7 [facility] DEPARTMEN INC T VISIT LOW/MODER SEVERITY OFFICE 00753 [place] CELI OUTPATIEN 7 7 [facility] VISIT HOSPITAL 10 P MINUTES [facility] [place] [facility] 7 [facility] OUTPATIEN INC T EMERGENCY 63901 [place] 7 7 [facility] DEPARTMEN [facility] T VISIT HIGH/URGE NT SEVERITY [facility] [place] - 7 7 [facility] OUTPATIEN INC [facility] [place] - 7 7 [facility] OUTPATIEN INC T PERIODIC 86097 [facility] HUMPHREY PREVENTIV 7 7 PHYSICIAN E MED EST S GROUP PATIENT [id number] OFFICE 74211 LU[place] MATUTE OUTPATINEENA 7 7 [place] T VISIT INTERNAL 15 MED MINUTES [facility] [place] - 7 7 [facility] OUTPATIEN INC T OFFICE 15093 [facility] MAEGAN OUTPATIEN 7 7 PHYSICIAN T VISIT S GROUP 15 MINUTES EMERGENCY 23797 [facility] JAQUEZ 7 7 PHYSICIAN DEPARTMEN S, [facility] T VISIT HIGH/URGE NT SEVERITY [facility] [place] [facility] 7 [facility] OUTPATIEN INC T OFFICE 68792 [place] CELI OUTPATIEN 7 7 [facility] VISIT HOSPITAL 10 P MINUTES OFFICE 35551 YVETTE CHAND 7 7 MD RHIANNON, T VISIT [facility] 10 MINUTES [facility] [place] [facility] 7 [facility] OUTPATIEN INC T [facility] [place] [facility] OUTPATIEN INC T OFFICE 71120 [facility] KIMBERLY OUTPATIEN 7 7 PHYSICIAN T VISIT S GROUP 25 MINUTES [facility]OS[facility] [place] [facility] 7 [facility] OUTPATIEN INC T [facility] [place] [facility] OUTPATIEN INC T OFFICE 28873 [facility] ISSA OUTPATIEN 7 7 PHYSICIAN T VISIT S GROUP 10 MINUTES OFFICE 39478 [place] OUTPATIEN 7 7 [facility] T VISIT 5 INC MINUTES [facility] [place] [facility] 7 7 [facility] OUTPATIEN INC T OFFICE 98748 YVETTE MAXIMO OUTPATIEN 7 7 MD RHIANNON, T NEW 30 PSC MINUTES EMERGENCY 41679 [facility] SOTOMAYOR 7 7 PHYSICIAN JR [facility] S, [facility] T VISIT HIGH/URGE NT SEVERITY [facility] [place] [facility] 7 [facility] OUTPATIEN INC T [facility] [place] [facility] 7 [facility] OUTPATIEN INC T OFFICE 77528 [facility] KIMBERLY OUTPATIEN 7 7 PHYSICIAN T VISIT S GROUP 25 MINUTES OFFICE 38231 [place] B[facility]ON OUTPATIEN 7 7 [place] T VISIT INTERNAL 15 MED MINUTES [facility] [place] [facility] 7 [facility] OUTPATIEN INC T OFFICE 26470 [facility] KIMBERLY OUTPATIEN 7 7 PHYSICIAN T VISIT S GROUP 25 MINUTES OFFICE 90066 [facility] ADAMS OUTPATIEN 7 7 [place] T VISIT ORTHOPAED 15 IC MINUTES EMERGENCY 15604 [place] 7 7 [facility] DEPARTMEN INC T VISIT HIGH/URGE NT SEVERITY [facility] [place] [facility] 7 7 [facility] OUTPATIEN INC T EMERGENCY 36790 [facility] RENUSCH DEPT 7 7 PHYSICIAN VISIT S, [facility] HIGH SEVERITY& THREAT FUN OFFICE 25104 [place] GIOVANI OUTPATIEN 7 7 [place] T VISIT INTERNAL 25 MED MINUTES OFFICE 37152 [place] OUTPATIEN 7 7 [facility] T VISIT 5 INC MINUTES [facility] [place] [facility] 7 7 [facility] OUTPATIEN [facility] T OFFICE 14045 ANGELITO DUARTE OUTPATIEN 7 7 [place] T NEW 30 ORTHOPAED MINUTES EMERGENCY 96749 [place] 7 7 [facility] DEPARTMEN [facility] T VISIT LOW/MODER SEVERITY [facility] [place] [facility] 7 7 [facility] OUTPATIEN [facility] EMERGENCY 69678 [facility] JIMENEZ DEPT 7 7 PHYSICIAN U VISIT S, [facility] HIGH SEVERITY& THREAT [facility] [place] [facility] 7 [facility] OUTPATIEN [facility] [place] [facility] 7 7 [facility] OUTPATIEN [facility] EMERGENCY 07974 [place] 7 7 [facility] DEPARTMEN [facility] T VISIT MODERATE SEVERITY [facility] [place] [facility] 7 7 [facility] OUTPATIEN [facility] EMERGENCY 10435 [place] 7 7 [facility] T VISIT LOW/MODER SEVERITY EMERGENCY 95524 [facility] PASCUAL 7 7 PHYSICIAN DEPARTMEN S, [facility] T VISIT HIGH/URGE NT SEVERITY OFFICE 60062 [place] [facility]PAT[facility] 7 7 [facility] T VISIT 5 INC MINUTES [facility] [place] [facility] 7 7 [facility] OUTPATIEN [facility] T OFFICE 42827 [facility] R[facility] OUTPATIEN 7 7 [place] T VISIT INTERNAL 15 MED MINUTES [facility] [place] - 7 7 [facility] EMERGENCY 00478 [place] 7 7 [facility] DEPARTMEN HOSPITAL T VISIT LOW/MODER SEVERITY EMERGENCY 65758 [facility] 7 7 [facility] EMERGENCY T VISIT PHYS MODERATE SEVERITY OFFICE 91850 [place] [facility]IEN 7 7 [facility] T VISIT 5 INC MINUTES [facility] [place] [facility] 7 7 [facility] OUTPATIEN INC T OFFICE 43536 [facility] [place] OUTPATIEN 7 7 [facility] T VISIT INTERNAL 15 MED MINUTES EMERGENCY 18888 [facility] MEDEROS 7 7 PHYSICIAN [facility] S, [facility] T VISIT MODERATE SEVERITY [facility] [place] [facility] 7 7 [facility] OUTPATIEN INC T OFFICE 04586 [place] [facility]IEN 7 7 [facility] T VISIT 5 INC MINUTES [facility] [place] [facility] 7 [facility] OUTPATIEN INC T OFFICE 50122 [place] [facility] 7 7 [facility] T VISIT 5 INC MINUTES [facility] [place] [facility] 7 7 [facility] OUTPATIEN INC T OFFICE 04806 [place] OUT[facility] 7 7 [facility] T NEW 10 INC MINUTES OFFICE 17016 [place] OUTPATIEN 7 7 [place] T VISIT INTERNAL 25 MED MINUTES [facility] - 7 7 [facility]ALTH OUTPATIEN [place] T OFFICE 97793 JASSO JASSO OUTPATIEN 7 7 T VISIT 25 MINUTES [facility] [place] [facility] 7 7 [facility] OUTPATIEN INC T EMERGENCY 87767 [place] 7 7 [facility] DEPARTMEN INC T VISIT LIMITED/M INOR PROB [facility]OSP[facility] [place] [facility] 7 7 [facility] OUTPATIEN INC T EMERGENCY 12429 [place] 7 7 [facility] DEPARTMEN INC T VISIT LOW/MODER SEVERITY EMERGENCY [address] [place] [address] [facility] V[facility]/M [facility]OB [facility] [place] - 7 7 [facility] OUTPATIEN [facility] T EMERGENCY 77098 [facility] PASCUAL 7 7 PHYSICIAN [facility] S, [facility] T VISIT MODERATE SEVERITY [facility] - 7 7 HEALTH OUTPATIEN [facility] - 7 7 [facility] [place] [facility] 6 [facility] OUTPATIEN [facility] T EMERGENCY 96197 [facility] SOTOMAYOR, 6 6 PHYSICIAN [facility] S, [facility] T VISIT HIGH/URGE NT SEVERITY OFFICE 42636 [facility] [facility] T VISIT INTERNAL 15 MED MINUTES [facility] [place] [facility] 6 6 [facility] OUTPATIEN [facility] T EMERGENCY 39467 SMILEY JAQUEZ 6 6 PHYSICIAN [facility] T VISIT HIGH/URGE NT SEVERITY EMERGENCY 82564 [place] [address] [facility] T VISIT MODERATE SEVERITY EMERGENCY 20537 SMILEY ARMIJO 6 6 PHYSICIAN [facility] T VISIT MODERATE SEVERITY EMERGENCY [address] [place] [address] [facility] T VISIT LOW/MODER SEVERITY [facility] [place] [facility] 6 6 [facility] T EMERGENCY 61472 SMILEY PASCUAL 6 6 PHYSICIAN [facility] T VISIT MODERATE SEVERITY OFFICE 65611 [facility] OUTPATIEN 6 6 ANG ANG T VISIT 10 MINUTES OFFICE 29144 [place] [facility] OUT[facility] 6 6 [facility] OFELIA T VISIT INTERNAL 15 MED MINUTES OFFICE 79536 [facility] MICHELLE OUTPATIEN 6 6 T VISIT BARIATRIC 25 SURGICAL MINUTES EMERGENCY 98387 [place] 6 6 [facility] T VISIT LOW/MODER SEVERITY [facility] [place] [facility] 6 [facility] T EMERGENCY 03977 SMILEY SOTOMAYOR, 6 6 [facility] HIGH/URGE NT SEVERITY EMERGENCY 21054 SMILEY PASCUAL 6 6 [facility] VISIT MODERATE SEVERITY OFFICE 03031 [facility] OUTPATIEN 6 6 [facility] T VISIT MEDICAL 15 G MINUTES [facility] [place] [facility] 6 6 [facility] T OFFICE 20354 [facility] HUMPHREY OUTPATIEN 6 6 PHYSICIAN MEAGAN T VISIT S GROUP 15 MINUTES OFFICE 09357 [facility] ISSA OUTPATIEN 6 6 PHYSICIAN JARON T VISIT S GROUP 10 MINUTES [facility] [place] [facility] [place] [facility] T EMERGENCY 54175 [place] 6 6 [facility] T VISIT MODERATE SEVERITY [facility] [place] [facility] T OFFICE 37070 [facility] OUTPATI[facility] 6 6 PHYSICIAN JARON T VISIT S GROUP 10 MINUTES OFFICE 82769 DOMINICK ANDRES OUTPATIEN 6 6 HEALTH IV HEN T VISIT MEDICAL 15 GROUP MINUTES OFFICE 72329 [place] [facility]RE OUTPATIEN 6 6 [facility] T VISIT HOSPITAL 10 P MINUTES OFFICE 16710 PERLA RODRGIUEZ TRI OUTPATIEN 6 6 GROUND T VISIT FAMILY 25 CLINI MINUTES OFFICE 08707 [facility]ISIT 5 HLTH DEPT HLTH DEPT MINUTES [facility] EMERGENCY 20868 SMILEY ARMIJO 6 6 PHYSICIAN SILVIO DALE T VISIT HIGH/URGE NT SEVERITY EMERGENCY 17218 [place] 6 6 [facility] T VISIT LOW/MODER SEVERITY [facility] [place] [facility] T [facility] [place] [facility] T OFFICE 13564 [facility] T VISIT [facility] DE[facility] 15 JAZZ JAZZ MINUTES OFFICE 26377 [facility] KIMBERLY OUTPATIEN 6 6 PHYSICIAN JULIUS T VISIT S GROUP 25 MINUTES OFFICE 38784 [facility] 6 6 T VISIT BARIATRIC 25 SURGICAL MINUTES EMERGENCY 72414 SMILEY PASCUAL [address] [facility] T VISIT MODERATE SEVERITY OFFICE 70248 [facility] KIMBERLY OUTPATIEN 6 6 PHYSICIAN MAT Berenice [place] 45 S GROUP MINUTES [facility] [place] - 6 6 [facility] T OFFICE 27298 [facility] OUTPATIEN 6 6 PART[facility]ERS T VISIT OF [place] 40 CO MINUTES EMERGENCY 86386 SMILEY JIMENEZ 6 [address] [facility] T VISIT HIGH/URGE NT SEVERITY EMERGENCY 15607 [place] 6 6 [facility] T VISIT LOW/MODER SEVERITY [facility] [place] [facility] 6 6 [facility] INC T EMERGENCY 99478 SMILEY PASCUAL [address] [facility] T VISIT MODERATE SEVERITY OFFICE 74544 [facility] OUTPATIEN 6 6 N T VISIT NEUROLOGY 10 MINUTES [facility] [place] [facility] T EMERGENCY 15563 SMILEY SOTOMAYOR, 6 6 PHYSICIAN JR [facility] T VISIT MODERATE SEVERITY [facility] [place] [facility] 6 6 [facility] T EMERGENCY 91430 SMILEY PASCUAL DEPT 6 6 PHYSICIAN BRYCE VISIT S, PLLC HIGH SEVERITY& THREAT FUNCJ OFFICE 88594 [place] [facility] 6 [facility] V[facility] HOSP[facility] 10 P MINUTES [facility] [place] - 6 6 [facility] OUTPATIEN [facility] T EMERGENCY 64231 [place] 6 6 [facility] DEPARTMEN [facility] T VISIT MODERATE SEVERITY EMERGENCY 36151 SMILEY SOTOMAYOR 6 6 PHYSICIAN JR [facility] T VISIT HIGH/URGE NT SEVERITY OFFICE 60797 [place] WEISS JR OUTPATI 6 6 [facility] VISIT HOSPITAL 10 P MINUTES OFFICE 87085 ALLERGY ROSENTHAL MAR CONSULTAT 6 6 [facility] [place] NEW/ESTAB CO PATIENT 60 MIN EMERGENCY 31302 SMILEY PASCUAL DEPT 6 6 PHYSICIAN BRYCE VISIT S, PLLC HIGH SEVERITY& THREAT FUNCJ EMERGENCY 52113 SMILEY PASCUAL 6 6 PHYSICIAN BRYCE DEPARTMEN S, PLLC T VISIT MODERATE SEVERITY EMERGENCY 91308 SMILEY PASCUAL DEPT 6 6 PHYSICIAN BRYCE VISIT S, PLLC HIGH SEVERITY& THREAT FUNCJ EMERGENCY 04956 SMILEY HUNT 6 6 PHYSICIAN DEPARTMEN S, PLLC T VISIT LOW/MODER SEVERITY OFFICE 02299 [facility] OUTPATIEN 6 6 PHYSICIAN T VISIT S GROUP 25 MINUTES [facility] [place] - 6 6 [facility] T EMERGENCY 40965 SMILEY PASCUAL 6 6 PHYSICIAN BRYCE DEPARTMEN S, PLLC T VISIT MODERATE SEVERITY EMERGENCY 94984 [place] 6 6 [facility] DE[facility] INC T VISIT LOW/MODER SEVERITY [facility] [place] [facility] 6 6 [facility] T [facility] - 6 6 N OUTPATIEN COMMUNTIY T HOSPITA OFFICE 86423 [facility] OUTPATIEN 6 6 PHYSICIAN JARON T NEW 20 S GROUP MINUTES EMERGENCY 49903 [facility] PHYSICIAN CASANDRA VISIT S, PLLC HIGH SEVERITY& THREAT FUN EMERGENCY 15891 SMILEY PASCUAL 6 6 PHYSICIAN BRYCE DEPARTMEN S, PLLC T VISIT HIGH/URGE NT SEVERITY [facility] - 6 6 N OUTPATIEN COMMUNTIY HOSPITA EMERGENCY 33856 SMILEY PASCUAL DEPT 6 6 PHYSICIAN BRYCE VISIT S, PLLC HIGH SEVERITY& THREAT [facility] OFFICE 01982 [facility] 6 6 T VISIT BARIATRIC 25 SURGICAL MINUTES EMERGENCY 06590 [facility] 6 6 EMERGENCY HOW DEPARTMEN PHYS PSC T VISIT MODERATE SEVERITY [facility]OSPITAL [facility] - 6 6 HEALTH OUTPATIEN [facility] EMERGENCY 21484 [place] 6 6 [facility] DEPARTMEN INC T VISIT LOW/MODER SEVERITY EMERGENCY 01797 SMILEY BAGLEY DEPT 6 6 PHYSICIAN FOR VISIT S, PLLC HIGH SEVERITY& THREAT [facility] [place] - 6 6 [facility] [place] - 6 6 [facility] OUT[facility] INC T EMERGENCY 79348 SMILEY PASCUAL 6 6 PHYSICIAN BRYCE DEPARTMEN S, PLLC T VISIT HIGH/URGE NT SEVERITY EMERGENCY 82683 SMILEY SUGGS [facility] 6 6 PHYSICIAN DEPARTMEN S, PLLC T VISIT HIGH/URGE NT SEVERITY [facility]OSPITAL [facility] - 6 6 N OUTPATIEN [facility] T HOSPITA EMERGENCY 44223 [facility] 6 6 [place] JOSE ANGEL DEPARTMEN EMERGENCY T VISIT PHYS HIGH/URGE NT SEVERITY EMERGENCY 91614 [place] DEPT 6 6 [facility] VISIT INC HIGH SEVERITY& THREAT FUNCJ [facility] [place] - 6 6 [facility] OUTPATIEN INC T OFFICE 61827 [facility] CONSULTAT 6 6 N ION NEUROLOGY NEW/ESTAB PATIENT 60 MIN OFFICE 33859 [facility] OUT[facility] 6 6 MATTI MATTI T NEW 30 MINUTES OFFICE 68167 SCALF LEI SCALF LEI OUTPATIEN 6 6 T VISIT 25 MINUTES EMERGENCY 89550 SMILEY SANCHEZEY DEPT 6 6 PHYSICIAN BRYCE VISIT S, PLL HIGH SEVERITY& THREAT FUNCJ OFFICE 65054 [place] A[facility]LAN OUTPATIEN 6 6 [facility] OF[facility] T VISIT INTERNAL 15 MED MINUTES [facility]OSPITAL [facility] - 6 6 HEALTH OUTPATIEN [facility] [place] - 6 6 [facility] OUTPAT[facility] INC T EMERGENCY 81854 SMILEY SANCHEZEY DEPT 6 6 PHYSICIAN BRYCE VISIT S, PLLC HIGH SEVERITY& THREAT FUNCJ OFFICE 24062 ZOROASTRIANISM [facility] OUTPATIEN 6 6 HEALTH KADIE T VISIT MEDICAL 15 GROUP MINUTES OFFICE 04645 [facility] SANCHEZ MICHELLE OUTPATIEN 6 6 T VISIT BARIATRIC 25 SURGICAL MINUTES [facility] [place] - 6 6 [facility] INC T OFFICE 83551 [place] A[facility] OUTPATIEN 6 6 [facility] OF[facility] T VISIT INTERNAL 15 MED MINUTES INITIAL 96683 [facility] PRE[facility]IV 6 6 PHYSICIAN E S GROUP MEDICINE NEW PATIENT 40-64YRS OFFICE 22151 ZOROASTRIANISMBerenice [place] OUTPATIEN 6 6 PRIMARY KADIE T VISIT CARE OF 15 ABISAI [facility] [place] - 6 6 [facility] OUTPATIEN INC T OFFICE 69485 [place] A[facility] OUTPATIEN 6 6 [place] OFELIA T VISIT INTERNAL 15 MED [facility] [place] - 6 6 [facility] OUTPATIEN INC T OFFICE 81441 WENDY SANCHEZ MICHELLE OUTPATIEN 5 5 T VISIT BARIATRIC 25 SURGICAL MINUTES OFFICE 36228 ATKINS ATKINS OUTPATIEN 5 5 TRA TRA T VISIT 25 MINUTES PERIODIC 57847 [facility] DEPT HLTH DEPT PATIENT JAZZ JAZZ 40-64YRS OFFICE 88963 WENDY SANCHEZ MICHELLE OUTPATIEN 5 5 T VISIT BARIATRIC 15 SURGICAL [facility] [place] - 5 5 [facility] OUTPATIEN INC T OFFICE 39106 [place] ARSLAN OUTPATIEN 5 5 VAL[facility] OFELIA T NEW 30 INTERNAL MINUTES [facility] [place] - 5 5 [facility] OUTPATIEN INC T OFFICE 56836 [facility] PETTEY OUTPATIEN 5 5 PHYSICIAN JAM T VISIT S GROUP 15 MINUTES OFFICE 71872 GASTROENT CASE JUS OUTPATIEN 5 5 EROLOGY T VISIT AND 15 HEPATOL MINUTES OFFICE 89550 ZOROASTRIANISMBerenice [place] OUTPATIEN 5 5 HEALTH KADIE T VISIT MEDICAL 10 GROUP [facility] [place] - 5 5 N OUTPATIEN COMMUNTIY T HOSPITA EMERGENCY 01460 SMILEY HUTCHISON 5 5 PHYSICIAN KENNY GARCIA S, PLLC T VISIT HIGH/URGE NT [facility] [place] - 5 5 [facility] OUTPATIEN INC [facility] [place] - 5 5 N OUTPATIEN COMMUNTIY T HOSPITA OFFICE 06410 GASTROENT CASE JUS OUTPATIEN 5 5 EROLOGY T NEW 45 AND MINUTES [facility]PATOL [facility] [place] - 5 5 [facility] OUTPATI[facility] INC EMERGENCY 66883 [place] SOTOMAYOR, 5 5 [facility] T VISIT P LOW/MODER SEVERITY [facility] [place] - 5 5 [facility] OUTPATIEN INC OFFICE 37127 DANIEL SANCHEZ OUTPATIEN 5 5 HUBER HUBER T VISIT 15 MINUTES [facility] [place] - 5 5 [facility] OUT[facility] INC EMERGENCY 72587 [place] SOTOMAYOR, 5 5 [facility] T VISIT P MODERATE SEVERITY [facility] [place] - [address] [facility] [place] [address] [facility] [place] [place] [facility] INC T OFFICE 89157 WENDY MARTINEZ OUTPATIEN 5 5 T VISIT BARIATRIC 40 SURGICAL MINUTES OFFICE 33140 DANIEL SANCHEZ OUTPATIEN 5 5 [facility] HUBER T VISIT 15 MINUTES EMERGENCY 46411 [place] PASCUAL 5 5 [facility] T VISIT P LOW/MODER SEVERITY [facility] [place] - 5 5 [facility] [place] [facility] 5 5 [facility] [place] [facility] 5 [address] [facility] [place] - 5 5 [facility] OUTPATIEN INC T OFFICE 94731 [place] ALATORRE OUTPATIEN 5 5 [facility] 20 HOSPITAL MINUTES P [facility] [place] - 5 5 [facility] INC T OFFICE 35773 MELANIE NOGUEIRA OUTPATIEN 5 5 MEDICAL JAM T VISIT SERV 15 FOUNDATIO MINUTES N OFFICE 29766 [place] WEISS JR OUTPATIEN 5 5 [facility] 20 HOSPITAL MINUTES P OFFICE 48559 [facility] PETTEY OUTPATIEN 5 5 PHYSICIAN JAM [facility] 30 S GROUP MINUTES OFFICE 50258 [facility] 5 5 [facility] MEDICAL NEW/ESTAB G PATIENT 60 MIN OFFICE 41595 DANIEL CHAND 5 5 [facility] HU[facility] T VISIT 15 MINUTES [facility] [place] - 5 5 [facility] OUTPATIEN INC T EMERGENCY 99284 [place] ESCOTO 5 5 [facility] [place] T VISIT P MODERATE SEVERITY EMERGENCY 31093 [place] 5 5 [facility] DEPARTMEN INC T VISIT HIGH/URGE NT SEVERITY EMERGENCY 04799 [place] 5 5 [facility] DE[facility] INC T VISIT HIGH/URGE NT SEVERITY [facility] [place] - 5 5 [facility] OUTPATIEN INC T OFFICE 34058 DANIEL CHAND 5 5 [facility] T VISIT 15 MINUTES OFFICE 18225 DANIEL CHAND 4 4 [facility] T VISIT 15 MINUTES [facility] [place] - 4 4 [facility] OUT[facility] INC T EMERGENCY 35016 [place] 4 4 [facility] DEPARTMEN INC T VISIT LOW/MODER SEVERITY OFFICE 10781 DANIEL TOLEDODAYRON 4 4 [facility] HU[facility] T VISIT 15 MINUTES [facility] [place] - 4 4 [facility] OUT[facility]EN [facility] T EMERGENCY 71883 CHRIS PALACIO DEPT 4 4 [place] VISIT EMERGENCY HIGH PHYS SEVERITY& THREAT [facility] - 4 4 N OUTPATIEN [facility] T HOSPITA OFFICE 73995 ARMANDOBING DANIEL OUTPATINEENA 4 4 [facility] HUBER T VISIT 15 MINUTES OFFICE 52632 [place] [facility] CONSULTAT 4 4 KADIE ION CARDIOLOG NEW/ESTAB Y AT CENT PATIENT 40 MIN OFFICE 18261 [place] NOGUEIRA CONSULTAT 4 4 MEDICAL JAM ION SERV NEW/ESTAB FOUNDATIO PATIENT N 60 MIN [facility] [place] - 4 4 [facility]EN [facility] [place] [facility] 4 4 [facility] T OFFICE 73934 DANIEL SANCHEZ OUTPATIEN 4 4 [facility] T VISIT 15 MINUTES OFFICE 49005 ATKINS ATKINS CONSULTAT 4 4 TRA TRA ION NEW/ESTAB PATIENT 40 MIN OFFICE 78524 [facility] OUTPAT[facility] 4 4 [facility] T VISIT MEDICAL 15 G MINUTES [facility] [place] - 4 4 [facility] T [facility]ICE 25684 [facility] T NEW 30 MEDICAL MINUTES G EMERGENCY 70038 CHRIS LEAHY DEPT 4 4 [place] MOH VISIT EMERGENCY HIGH PHYSI SEVERITY& THREAT [facility] [place] - 4 4 [facility] OUT[facility] INC T EMERGENCY 99097 HORTENCIA HUGHES DEPT 4 4 VISIT HIGH SEVERITY& THREAT FUN EMERGENCY 98358 [place] 4 4 [facility] DEPARTMEN INC T VISIT MODERATE SEVERITY EMERGENCY 60877 [place] 4 4 [facility] DEPART[facility] INC T VISIT HIGH/URGE NT SEVERITY OFFICE 88339 DANIEL CHAND 4 4 HUBER HUBER T VISIT 15 MINUTES [facility] [place] - 4 4 [facility] OUTPATI[facility] INC T EMERGENCY 77530 ANKUR PASCUAL DEPT 4 4 BRYCE BRYCE VISIT HIGH SEVERITY& THREAT FUNCJ OFFICE 16612 SANCHEZ MICHELLE SANCHEZ MICHELLE CONSULTAT 4 4 ION NEW/ESTAB PATIENT 80 MIN OFFICE 15578 DANIEL CHAND 4 4 HUBER HUBER T NEW 30 MINUTES [facility] [place] - 4 4 [facility] OUT[facility] INC T OFFICE 54903 MAEGAN CHAND 4 4 JARON JARON T VISIT 5 MINUTES OFFICE 79849 MAEGAN CHAND 4 4 JARON JARON T NEW 30 MINUTES EMERGENCY 34031 KIMBERLEE PASCUAL, 9 9 [facility] T VISIT ON HIGH/URGE NT SEVERITY EMERGENCY 08953 [place] 9 9 [facility] DEPARTMEN INC T VISIT LOW/MODER SEVERITY [facility] [place] - 9 9 [facility] OUTPAT[facility] INC T
--- OUTSIDE RECORDS SUMMARY | 2017-07-08 21:37 | External Medical Summary Rpt ---
Author Author , YENNY Organization [facility] Address Unknown Phone [email or web address] Care Team Providers Care Dispatcher Service Or Work Name Role Phone ALFARIS MOH, ALFARIS Unavailable Unavailable MOH [facility] Unavailable [place]available [place], [facility] [place] YVETTE JURADO MD, PSC, Unavailable Unavailable YVETTE JURADO MD, PSC ARNOLD HUBER, ARNOLD Unavailable Unavailable HUBER ARNOLD HUBER, ARNOLD Unavailable Unavailable HUBER ATKINS TRA, ATKINS Unavailable Unavailable TRA ATKINS TRA, ATKINS Unavailable Unavailable TRA [facility] Unavailable Unavailable [place], [facility] Unavailable Unavailable MEDICAL GROUP, [facility] Unavailable Unavailable CTR, [facility] Unavailable Unavailable OF [place], [facility] BEMICHAEL, BEINEKE Unavailable Unavailable BEINEKE D, BEINEKE D Unavailable Unavailable BEINEKE CARMEN, BEINEKE Unavailable Unavailable CARMEN DUMONT HOW, DUMONT Unavailable Unavailable HOW BESSON, BESSON Unavailable Unavailable BESSON DOMINIQUE, BESSON Unavailable Unavailable DOMINIQUE [facility] Unavailable Unavailable [facility], [facility] BOLIEK KADIE, BOLIEK Unavailable Unavailable KADIE CERRATO, CERRATO Unavailable Unavailable CERRATO ALL, CERRATO ALL Unavailable Unavailable [facility] Unavailable Unavailable [facility] Unavailable Unavailable SERVICE, [facility] Unavailable Unavailable SERVICE, [facility] BUX, BUX Unavailable Unavailable SVITLANA [...] AND Unavailable Unavailable [facility], [facility] Unavailable Unavailable HOSPITA, [facility] Unavailable Unavailable HOSPITA, [facility] RODRIGUEZ TRI, RODRIGUEZ TRI Unavailable Unavailable ANDREWS RHO, ANDREWS Unavailable Unavailable RHO [facility] Unavailable Unavailable CENTER, [facility] Unavailable Unavailable INC, [facility] INC [facility] Unavailable Unavailable HOSPITAL P, [facility] BOYER CHRISTEL, BOYER CHRISTEL Unavailable Unavailable BOYER CHRISTEL, BOYER CHRISTEL Unavailable Unavailable [facility], Unavailable Unavailable [facility] JAQUEZ, JAQUEZ Unavailable Unavailable RODERICK HALEY, VAUGHN Unavailable Unavailable BRYAN LONDONO Unavailable Unavailable ILUYOMADE ROT, Unavailable Unavailable ILUYOMADE ROT FELICIA DUARTE Unavailable Unavailable [facility] Unavailable Unavailable GROUP PS, [facility] Un[facility] Unavailable [facility], [facility] Unavailable Unavailable MEDICAL G, [facility] KRASNOPOLSKY LAUREN, Unavailable Unavailable KRASNOPOLSKY [...] JR DWI, SCOTT Unavailable Unavailable JR DWI [facility] Unavailable Unavailable SPECIALISTS,, [facility], [facility] Unavailable Unavailable INTERNAL MED, [facility] BRITTNY MART Unavailable Unavailable [...] Unavailable FOR [facility] Unavailable Unavailable DEPT [facility] Unavailable [facility]available DEPT [facility] SANCHEZ, SANCHEZ Unavailable Unavailable SANCHEZ MICHELLE, SANCHEZ MICHELLE Unavailable Unavailable WELLS ELLEN, WELLS ELLEN Unavailable Unavailable WELLS SHA, HORTENCIA PALACIO Unavailable Unavailable ROSENTHAL MAR, ROSENTHAL MAR Unavailable Unavailable SARAH KADIE, SARAH KADIE Unavailable Unavailable Purpose Continuity of Care Document - 01-04-2009 through 2016 Problems Code Diagnosis DOS Provider Status R079 CHEST PAIN 06-04-2017 [facility] UNSPECIFIED [facility] INTERNAL MED [id number] UNS ADVERS 06-01-2017 [facility] ALBARRAN PHYSICIANS, DRUG/MEDICA PLL MENT INITIAL ENCNTR K219 GASTRO-ESOP 05-19-2017 [facility] REFLUX PHYS SURG DISEASE CTR WITHOUT ESOPHAGITIS R1310 DYSPHAGIA 05-19-2017 [facility] UNSPECIFIED PHYS SURG CTR Z9884 BARIATRIC 05-19-2017 [facility] SURGERY PH[facility] SURG STATUS CTR J069 ACUTE UPPER 05-05-2017 [facility] RESPIRATORY INC INFECTION UNSPECIFIED R072 PRECORDIAL 05-05-2017 [facility] PA[facility] , E785 HYPERLIPIDE 05-04-2017 [facility] P R0789 OTHER CHEST 05-04-2017 [facility] PILLAI PHYSICIANS, [facility] Z809 FAMILY 05-04-2017 [facility] HISTORY OF [facility] MALIGNANT INC NEOPLASM UNSPECIFIED Z8249 FAMILY HX 05-04-2017 [facility] ISCHEMIC [facility] HRT DZ OT HOSPITAL P DZ CIRC SYSTEM Z833 FAMILY 05-04-2017 [facility] P MELLITUS C10759 ENCOUNTER 04-30-2017 [facility] FOR [facility]ALTH PREPROCEDUR [place] CARIOVASCUL AR EXAM C66811 ENCOUNTER 04-30-2017 [facility] [place] LABORATORY EXAM B977 PAPILLOMAVI 04-29-2017 [facility], [facility] OF DZ CLASSIFIED ELSEWHERE E7800 PURE 04-29-2017 [facility] HYPERCHOLES VALLEY TEROLEMIA INTERNAL UNSPECIFIED MED J309 ALLERGIC 04-29-2017 [facility] RHINITIS [facility] UNSPECIFIED INTERNAL MED M797 FIBROMYALGI 04-29-2017 [facility] A [facility] INTERNAL MED N870 MILD 04-29-2017 [facility], CERV[facility] LLC DYSPLASIA F41787 ATYP SQ 04-29-2017 [facility] CELLS UNDET PHYSICIANS GROUP SIGNIFICANC E CYTOL SMER CERV W40249 CERV HIGH 04-29-2017 [facility] RSK HUMAN PHYSICIANS PAPILLOMAVI GROUP RAJ DNA TEST POS 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 04-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 [facility] ESOPHAGUS [place] C57620 DECREASED 04-09-2017 [facility] WHITE BLOOD [facility] CELL COUNT [facility] P UNSPECIFIED K449 DIAPHRAGMAT 04-08-2017 [facility] HERNIA HEALTH W/O MEDICAL OBSTRUCTION GROUP OR GANGRENE R110 NAUSEA 04-08-2017 [facility] R1319 OTHER 04-08-2017 [facility] DYSPHAGIA [facility] [id number] SPONDYLOSIS 04-07-2017 YVETTE JURADO, W/O , PSC MYELOPATH/R ADICULOPATH Y LUMB RGN M479 SPONDYLOSIS 04-07-2017 [facility] HOSP UNSPECIFIED INC 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-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, PSC RAL DISC DEGEN LUMBAR REGION R202 PARESTHESIA 04-07-2017 [facility] OF [place] [facility] J320 CHRONIC 04-02-2017 [facility] MAXILLARY [facility] SINUSITIS INC R350 FREQUENCY 03-27-2017 [facility] P R3915 URGENCY OF 03-27-2017 [facility] URINATION [facility] P R200 ANESTHESIA 03-25-2017 [facility] SKIN MEDICAL IMAGING ASS R42 DIZZINESS 03-25-2017 [facility] GIDDINESS IMAGING ASS R51 HEADACHE 03-25-2017 [facility] HOSP INC D709 NEUTROPENIA 03-24-2017 [facility] P [id number] ADVERSE EFF 03-22-2017 [facility] SHERIFF, ALEXANDER PLLC DS SYNTH ANALOG INIT ENC V11775V ADVERS EFF 03-22-2017 [facility] RX MEDS MEM [facility]OS[facility] BIO INC SUBSTANCES INIT ENC C96412 OTHER 03-21-2017 [facility] SPONDYLOSIS [facility] LUMBAR INC REGION M5116 INTERVERTEB 03-21-2017 [facility] RAL DISC [facility] D/O INC W/RADICULOP ATHY LUMB RGN W93735 ENCOUNTER 03-19-2017 [facility], DIRECTOR TELEVISION EXAM LLC GENERAL RTN W/ABNORMAL FIND P65951 ENCOUNTER 03-19-2017 [facility] DIRECTOR TELEVISION EXAM PHYSICIANS GENERAL RTN GROUP W/O ABNORMAL FIND H6982 OTHER SPEC 03-13-2017 [facility] DISORDERS PHYSICIANS EUSTACHIAN GROUP TUBE LT EAR 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 UNRESTIRCT GROUP CONTRALAT SIDE R300 DYSURIA 03-12-2017 [facility] SHERIFF, PLLC M4726 OTH 03-03-2017 [facility] SPONDYLOSIS [facility] INC W/RADICULOP ATHY LUMBAR REGION N390 URINARY 03-03-2017 [facility] TRACT [facility] INFECTION INC SITE NOT SPECIFIED R911 SOLITARY 02-27-2017 [facility] PULMON[facility] NODULE IMAGING ASS Z09 ENC F/U 02-27-2017 [facility] EXAM AFTR MEDICAL CMPL TX OTH IMAGING ASS THAN BLAZE NEOPLSM E669 OBESITY 02-25-2017 [facility] UNSPECIFIED PHYSICIANS GROUP I119 HYPERTENSIV 02-25-2017 [facility] E HEART PHYSICIANS DISEASE GROUP WITHOUT HEART FAILURE R0600 DYSPNEA 02-25-2017 [facility] UNSPECIFIED PHYSICIANS GROUP [id number] PAIN IN 02-18-2017 [facility] LEFT [facility] SHOULDER INC M5440 LUMBAGO 02-18-2017 [facility] WITH [facility] SCIATICA INC UNSPECIFIED SIDE J310 CHRONIC 02-17-2017 [facility] RHINITIS PHYSICIANS GROUP J329 CHRONIC 02-17-2017 [facility] SINUSITIS PHYSICIANS UNSPECIFIED GROUP J342 DEVIATED 02-17-2017 [facility] NASAL PHYSICIANS SEPTUM GROUP M5416 RADICULOPAT 02-17-2017 [facility] HY LUMBAR [facility] REGION INC M545 LOW BACK 02-17-2017 YVETTE JURADO, PAIN , PSC K5900 CONSTIPATIO 02-14-2017 [facility] MEDICAL UNSPECIFIED IMAGING ASS I998 OTHER 02-11-2017 [facility] DISORDER OF [facility] INC CIRCULATORY SYSTEM R0602 SHORTNESS 02-11-2017 [place] OF BREATH [facility] INC G8929 OTHER 02-10-2017 [facility] CHRONIC [facility] PAIN INTERNAL MED R002 PALPITATION 01-31-2017 [facility] S PHYSICIANS GROUP R5383 OTHER 01-31-2017 [facility] FATIGUE PHYSICIANS GROUP M792 NEURALGIA 01-27-2017 [facility] AND VALLEY NEURITIS INTERNAL UNSPECIFIED MED I10 ESSENTIAL 01-26-2017 [facility] PRIMARY [facility] HYPERTENSIO INC N M542 CERVICALGIA 01-26-2017 [facility] INC O57263 SPONDYLOSIS 01-22-2017 [facility] W/O MEDICAL MYELOPATH/R IMAGING ASS ADICULOPATH Y CERV RGN A128JRY STRAIN 01-22-2017 [facility] MUSCLE FASC PHYSICIANS, & TENDON PLLC NECK LEVL INIT ENC E559 VITAMIN D 01-21-2017 [facility] DEFICIENCY [facility] UNSPECIFIED INC L54471M STRAIN 01-16-2017 [facility] MUSCLE & PHYSICIANS, TENDON UNS PLLC WALL THORAX INIT ENC F30055 OTHER LONG 01-11-2017 [facility] DRUG THERAPY Z882 ALLERGY 01-11-2017 [facility]US TO [facility] S STATUS Z886 ALLERGY 01-11-2017 [facility] ANAL[facility]ESIC [facility] AGENT STATUS Z888 ALLERGY 01-11-2017 [place] STATUS OTH [facility]ITY RX MEDS & HOSPITAL BIOLOG [facility] H9203 OTALGIA 01-10-2017 [facility] BILATERAL [facility] INC I209 ANGINA 01-10-2017 [facility] PECTORIS [facility] UNSPECIFIED INC R071 CHEST PAIN 01-07-2017 [facility] INTERNAL MED Z720 TOBACCO USE 01-04-2017 [facility] INC [id number] MUSCLE 12-25-2016 [place] SPASM OF MEM [facility] BACK INC R1013 EPIGASTRIC 12-25-2016 [place] PAIN [place] INTERNAL MED R4702 DYSPHASIA 12-25-2016 [place] [place] INTERNAL MED B078 OTHER VIRAL 12-23-2016 [facility] WARTS K30 FUNCTIONAL 12-23-2016 [facility] DYSPEPSIA HEALTH [place] L218 OTHER 12-23-2016 [facility] SEBORRHEIC DERMATITIS L538 OTHER 12-23-2016 [facility] SPECIFIED ERYTHEMATOU S CONDITIONS R208 OTHER 12-23-2016 [facility] DISTURBANCE S OF SKIN SENSATION R238 OTHER SKIN 12-23-2016 [facility] CHANGES K5903 DRUG 12-17-2016 [facility] INDUCED [facility] CONSTIPATIO INC N [id number] ADVERSE 12-17-2016 [facility] EFFECT [facility] OTHER INC OPIOIDS INITIAL ENCOUNTER K910 VOMITING 12-12-2016 [facility] FOLLOWING [facility] GASTROINTES INC TINAL SURGERY R600 LOCALIZED 12-12-2016 [facility] EDEMA [facility] R609 EDEMA 12-12-2016 [place] UNSPECIFIED [facility] INC A03473 OTHER 12-12-2016 [place] SPECIFIED MEDICAL POSTPROCEDU IMAGING ASS [facility] STATES E6601 MORBID 12-11-2016 [facility] SEVERE HEALTH OBESITY DUE MONALISA TO EXCESS CALORIES N393 STRESS 12-11-2016 [facility] INCONTINENC HEALTH E FEMALE MONALISA MALE Z903 ACQUIRED 12-11-2016 [facility] ABSENCE OF HEALTH STOMACH MONALISA H12561 ENCOUNTER 12-05-2016 [facility] FOR OTHER HEALTH PREPROCEDUR MEDICAL AL GROUP EXAMINATION K210 GASTRO-ESOP 11-22-2016 [facility] HAGEAL PHYSICIANS, REFLUX [facility] DISEASE W/ ESOPHAGITIS K625 HEMORRHAGE 11-19-2016 [facility] OF ANUS AND VALLEY RECTUM INTERNAL MED M546 PAIN IN 11-08-2016 [facility] THORACIC PHYSICIANS, [facility] Q44017 PAIN IN 10-14-2016 [place] UNSPECIFIED MEDICAL HIP IMAGING ASS M533 SACROCOCCYG 10-14-2016 [place] EAL MEDICAL DISORDERS IMAGING ASS NEC Q555KVE CONTUSION 10-14-2016 [facility] LOWER BACK PHYSICIANS, & PELVIS PLLC INITIAL ENCOUNTER R1003MF UNSPECIFIED 10-14-2016 [place] INJURY MEDICAL LOWER BACK IMAGING ASS INITIAL ENCOUNTER J8019AH UNSPECIFIED 10-14-2016 [place] INJURY OF MEDICAL PELVIS IMAGING ASS INITIAL ENCOUNTER H3581 RETINAL 10-11-2016 SC[facility] ANG EDEMA R040 EPISTAXIS 10-10-2016 [facility] VAL[facility] INTERNAL MED E6609 OTHER 10-08-2016 [facility] OBESITY DUE BARIATRIC TO EXCESS SURGICAL CALORIES R109 UNSPECIFIED 10-08-2016 [facility] ABDOMINAL BARIATRIC PAIN SURGICAL J3489 OTHER 10-06-2016 [facility] SPECIFIED PHYSICIANS, DISORDERS [facility] NOSE AND NASAL SINUSES R05 COUGH 10-06-2016 [facility] R0981 NASAL 10-06-2016 [facility] CONGESTION MEDICAL IMAGING ASS A6004 HERPESVIRAL 09-27-2016 [facility] PHYSICIANS VULVOVAGINI GROUP TIS N760 ACUTE 09-27-2016 [facility] VAGINITIS PHYSICIANS GROUP K909V6A CONCUSSION 09-21-2016 [facility] WITHOUT LOC [facility] INITIAL INC ENCOUNTER C1169II UNSPECIFIED 09-21-2016 [place] INJURY OF MEDICAL HEAD IMAGING ASS INITIAL ENCOUNTER H6903 PATULOUS 09-19-2016 [facility] JARON EUSTACHIAN TUBE BILATERAL Z13351 UNSPECIFIED 09-18-2016 [facility] PHYSICIANS OBSTRUCTION GROUP EUSTACHIAN TUBE BILAT R590 LOCALIZED 09-04-2016 [facility] LYMPH [facility] P Z6834 BODY MASS 09-04-2016 [facility] INDEX BMI HEALTH 34.0-34.9 MEDICAL ADULT GROUP K5909 OTHER 09-03-2016 [facility] CONSTIPATIO GROUND N FAMILY CLINI R112 NAUSEA WITH 09-03-2016 [facility] VOMITING GROUND UNSPECIFIED FAMILY CLINI R748 ABNORMAL 09-03-2016 [facility] LEVELS OF GROUND OTHER SERUM FAMILY ENZYMES CLINI Z111 ENCOUNTER 09-02-2016 [facility] DEPT RESPIRATORY JAZZ TUBERCULOSI S M549 DORSALGIA 09-01-2016 [facility] UNSPECIFIED PHYSICIANS, PLLC R197 DIARRHEA 09-01-2016 [facility] UNSPECIFIED PHYSICIANS, PLLC Q46069O ADVERSE 09-01-2016 [facility] EFFECT [facility] P SRI INITIAL ENCOUNTER Y48396 UNS PLACE 09-01-2016 [place] UNS NON [facility] P PLACE OF OCCUR EXT R195 OTHER FECAL 08-30-2016 [facility] HOSP ABNORMALITI INC ES Z202 CONTACT 08-30-2016 [facility] WITH DISTRICT EXPOSURE [facility] DEPT INFECT JAZZ SEXUAL MODE TRANSMS Z23 ENCOUNTER 08-30-2016 [facility] FOR DISTRICT IMMUNIZATIO [facility] DEPT N JAZZ R5381 OTHER 08-29-2016 [facility] MALAISE PHYSICIANS GROUP R9431 ABNORMAL 08-29-2016 [facility] ELECTROCARD PHYSICIANS IOGRAM GROUP V19935 LYMPHOCYTOP 08-21-2016 [facility] ENIA [facility] INC J3089 OTHER 08-21-2016 [facility] RHINITIS [place] J4520 MILD 08-21-2016 [facility] INTERMITTEN PARTNERS OF T ASTHMA [place] UNCOMPLICAT ED G159ASY OTHER 08-21-2016 [facility] ADVERSE PARTNERS OF FOOD [place] REACTIONS NEC SUBSEQUENT ENC M791 MYALGIA 08-17-2016 [facility] PHYSICIANS, PLLC M898X9 OTHER 08-12-2016 [place] SPECIFIED MEDICAL DISORDERS IMAGING ASS BONE UNSPECIFIED SITE R599 ENLARGED 08-12-2016 [facility]MPH [facility]ES [facility] INC UNSPECIFIED R1314 DYSPHAGIA 08-10-2016 [facility] PHARYNGOESO PHYSICIANS, PHAGEAL PLLC PHASE R5382 CHRONIC 08-07-2016 [facility] FATIGUE [facility] UNSPECIFIED INC J301 ALLERGIC 08-05-2016 [facility] RHINITIS PARTNERS OF DUE TO [place] POLLEN J3081 ALLERG 08-05-2016 [facility] RHINITIS PARTNERS OF D/T ANIMAL [place] CAT DOG HAIR & DANDER R591 GENERALIZED 08-05-2016 [facility] ENLARGED [facility] P I208 OTHER FORMS 08-02-2016 [facility] OF ANGINA [facility] P J83430 PAIN IN 08-02-2016 [place] RIGHT KNEE MEDICAL IMAGING ASS R55 SYNCOPE AND 08-02-2016 [facility] TEJADA PHYSICIANS, PLLC W517HPA UNSPECIFIED 08-02-2016 [place] INJURY OF MEDICAL NECK IMAGING ASS INITIAL ENCOUNTER W2573EU UNS INJURY 08-02-2016 [place] RT LOWER MEDICAL LEG INITIAL IMAGING ASS ENCOUNTER N281 CYST OF 08-01-2016 [facility] P X11529 OTHER 07-31-2016 [facility] EQUIPMENT INC R209 UNSPECIFIED 07-29-2016 [facility] PHYSICIANS, DISTURBANCE PLLC S OF SKIN SENSATION K589 IRRITABLE 07-24-2016 [facility] BOWEL PHYSICIANS SYNDROME GROUP WITHOUT DIARRHEA R102 PELVIC AND 07-24-2016 [facility] PERINEAL PHYSICIANS PAIN GROUP N831 CORPUS 07-22-2016 [facility] LUTEUM CYST PHYSICIANS GROUP N920 EXCESS & 07-22-2016 [facility] FREQUENT PHYSICIANS MENSTRUATIO GROUP N W/REGULAR CYCLE I87548T STRAIN UNS 07-22-2016 [facility] MUSCLE FASC PHYSICIANS, TEND THIGH PLLC RT INITIAL ENC Z7251 HIGH RISK 07-22-2016 [facility] BEHAVIOR INC R12 HEARTBURN 07-18-2016 [facility] H938X9 OTHER 07-17-2016 [facility] SPECIFIED PHYSICIANS DISORDERS GROUP OF EAR UNSPECIFIED EAR J302 OTHER 07-17-2016 [facility] SEASONAL PHYSICIANS ALLERGIC GROUP RHINITIS D2575BK LACERATION 07-13-2016 [facility] W/O FOREIGN PHYSICIANS, BODY SCALP PLLC INITIAL ENC A0473GT SPRAIN 07-13-2016 [facility] UNSPECIFIED PHYSICIANS, SITE LT PLLC KNEE INITIAL ENCNTR R6889 OTHER 07-10-2016 [facility] SYMPTOMS HOSPITA AND SIGNS E780 PURE 07-09-2016 [facility] HYPERCHOLES BARIATRIC TEROLEMIA SURGICAL E876 HYPOKALEMIA 07-09-2016 [facility] P Z1231 ENCOUNTER 07-08-2016 [place] SCREENING MEDICAL MAMMO MALIG IMAGING ASS NEOPLASM BREAST H6990 UNSPECIFIED 07-07-2016 [facility] T[facility] PHYS PSC DISORDER UNS EAR H938X3 OTHER 07-07-2016 [facility] SPECIFIED HEALTH DISORDERS [place] OF EAR BILATERAL M5432 SCIATICA 07-07-2016 [facility] LEFT SIDE EMERGENCY PHYS PSC R1010 UPPER 07-05-2016 [facility] ABDOMINAL PHYSICIANS, PAIN PLLC UNSPECIFIED R1084 GENERALIZED 06-29-2016 [facility] ABDOMINAL PHYSICIANS, PAIN PLLC I880 NONSPECIFIC 06-27-2016 [facility] MESENTERIC PHYSICIANS, PLLC LYMPHADENIT IS R100 ACUTE 06-27-2016 [facility] ABDOMEN [facility]ANCE SERVICE R1031 RIGHT LOWER 06-26-2016 [facility] PAIN PHYS G56147 RIGHT LOWER 06-26-2016 [facility] COMMUNTIY ABDOMINAL HOSPITA TENDERNESS N200 CALCULUS OF 06-24-2016 [facility] KIDNEY MEDICAL IMAGING ASS 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 06-11-2016 [...] EXPS TO NONIONIZING RAD R9439 ABNORMAL 04-08-2016 [facility] CARDIOV[facility]ICAL LR FUNCTION GROUP STUDY I340 [...] VALLEY IES NOT INTERNAL ELSEWHERE MED CLASSIFIED 18475 UNSPECIFIED 07-11-2015 [facility] VIRAL WARTS 2167 [...] SKIN 7020 ACTINIC 07-11-2015 [facility] KERATOSIS 58875 INFLAMED 07-11-2015 [facility] SEBORRHEIC KERATOSIS V700 ROUTINE 06-27-2015 [facility] DEPT [email or web address] FACL 09301 MORBID 06-20-2015 [facility] OBESITY BARIATRIC SURGICAL 56036 PAIN IN 06-20-2015 [facility] JOINT, SITE [facility] UNSPECIFIED 7823 EDEMA 06-20-2015 [facility] 61462 OTHER 06-20-2015 [facility] DYSPNEA AND [facility] RESPIRATORY ABNORMALITI ES 7871 HEARTBURN 06-20-2015 [facility] 7904 NONSPEC 06-20-2015 [facility] ELEVATION BARIATRIC OF LEVELS SURGICAL OF TRANSAMINAS E/LDH V4586 BARIATRIC 06-20-2015 [facility] SURGERY BARIATRIC STATUS SURGICAL V7612 OTHER 06-19-2015 [place] SCREENING MEDICAL MAMMOGRAM IMAGING ASS 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 MED 2689 UNSPECIFIED 06-12-2015 [facility] VITAMIN D [place] DEFICIENCY INTERNAL MED 5718 OTHER 06-12-2015 [facility] CHRONIC [place] NONALCOHOLI INTERNAL C LIVER MED DISEASE 7905 OTHER 06-12-2015 [facility] NONSPECIFIC [place] ABNORMAL INTERNAL SERUM MED ENZYME LEVELS 99546 UNSPEC 05-09-2015 [facility] DISORDERS PHYSICIANS BURSAE&TEND GROUP ONS SHOULDER REGION 7262 OTHER 05-09-2015 [facility] AFFECTIONS PHYSICIANS OF SHOULDER GROUP REGION NEC 33993 OBESITY, 05-04-2015 [facility] UNSPECIFIED OLOGY AND HEPATOL 3674 PRESBYOPIA 04-28-2015 [place]IF[place] ANG 93524 CHEST PAIN 04-28-2015 [facility] UNSPECIFIED HEALTH MEDICAL GROUP 94484 ABDOMINAL 04-25-2015 [facility] PAIN, COMMUNTIY UNSPECIFIED HOSPITA SITE 4019 UNSPECIFIED 04-16-2015 [facility] ESSENTIAL [facility] HYPERTENSIO INC N 5990 URINARY 04-16-2015 [facility] TRACT PHYSICIANS, INFECTION [facility] SITE NOT SPECIFIED 7948 NONSPECIFIC 04-16-2015 [facility] ABNORMAL [facility] RESULTS INC LIVR FUNCTION STUDY 5739 UNSPECIFIED 04-14-2015 [facility] [place] DISORDER RADIOLOGY OF LIVER 7906 OTHER 04-14-2015 [facility] ABNORMAL COMM[facility]TIY BLOOD HOSPITA CHEMISTRY 5939 UNSPECIFIED 04-06-2015 [place] DISORDER MEDICAL OF KIDNEY IMAGING ASS AND URETER 7891 HEPATOMEGAL 04-06-2015 [facility] OLOGY AND HEPATOL V140 PERSONAL 04-05-2015 [place] HISTORY OF [facility] ALLERGY TO HOSPITAL P PENICILLIN 31929 ABDOMINAL 04-03-2015 [facility] PAIN, GENERALIZED 5758 OTHER 04-01-2015 [place] SPECIFIED [facility] DISORDER OF HOSPITAL P GALLBLADDER 05261 OTHER 04-01-2015 [facility] SPECIFIED MEDICAL DISORDER OF IMAGING ASS KIDNEY AND URETER 39015 ABDOMINAL 04-01-2015 [place] PAIN RIGHT MEDICAL UPPER IMAGING ASS QUADRANT 17502 ABDOMINAL 04-01-2015 [place] PAIN, [facility] P 7295 PAIN IN 03-29-2015 [facility] SOFT COMMUNTIY TISSUES OF HOSPITA LIMB V4589 OTHER 03-29-2015 [facility] POSTSURGICA COMMUNTIY L STATUS HOSPITA OTHER 78552 OTHER 03-24-2015 [facility] MALAISE AND COMMUNTIY FATIGUE HOSPITA V6700 FOLLOW-UP 03-21-2015 [facility] [place] EXAMINATION RADIOLOGY FOLLOWING UNSPEC SURGERY 89097 ESOPHAGEAL 03-20-2015 [place] [facility] PS 6256 FEMALE 03-20-2015 [facility] STRESS COMMUNTIY INCONTINENC HOSPITA E 66431 PAIN IN 03-20-2015 [facility] JOINT, BARIATRIC MULTIPLE SURGICAL SITES 90844 DIASTASIS 03-20-2015 [facility] OF MUSCLE COMMUNTIY HOSPITA 7892 SPLENOMEGAL 03-20-2015 [facility] Y COMMUNTIY HOSPITA V8543 BODY MASS 03-20-2015 [facility] INDEX COMMUNTIY 50.0-59.9 HOSPITA ADULT 2639 UNSPECIFIED 03-14-2015 [facility] COMM[facility]TI[facility] PROTEIN-TEA HOSPITA ORIE MALNUTRITIO N 76266 MIGRAINE 03-07-2015 [facility] UNSP W/O BARIATRIC 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 MIGRAINOSUS 20453 OTHER 03-07-2015 [facility] URINARY BARIATRIC INCONTINENC SURGICAL E 6929 CONTACT 03-06-2015 [facility] HUBER DERMATITIS& OTHER ECZEMA DUE UNSPEC CAUSE 6822 CELLULITIS 03-02-2015 [place] AND ABSCESS [facility] P V148 PERSONAL 03-02-2015 [place] HISTORY [facility] ALLERGY OT HOSPITAL P SPEC MEDICINAL AGTS V571 OTHER 02-22-2015 [place] PHYSICAL [facility] THERAPY INC 2724 OTHER AND 02-20-2015 [facility] UNSPECIFIED COMMUNTIY HOSPITA HYPERLIPIDE LILIANE 7245 UNSPECIFIED 02-20-2015 [facility] BACKACHE COMMUNTIY HOSPITA V7283 OTHER 02-20-2015 [facility] SPECIFIED COMMUNTIY PRE-OPERATI HOSPITA VE EXAMINATION 2875 UNSPECIFIED 02-15-2015 [facility] THROMBOCYTO [facility] P PENIA 7932 NONSPC ABN 02-10-2015 [place] [facility] RAD&OTH FOUNDATION EXAM OTH INTRTHOR ORGN V7282 PRE-OPERATI 02-10-2015 [place] [facility] VE SERV RESPIRATORY FOUNDATION EXAMINATION 5930 NEPHROPTOSI 02-09-2015 [facility] P 7802 SYNCOPE AND 02-01-2015 [facility] MEDICAL G 4139 OTHER AND 01-18-2015 [place] UNSPECIFIED [facility] ANGINA [facility] P PECTORIS 66164 SHORTNESS 01-18-2015 [facility] MEDICAL IMAGING ASS 35588 OTHER CHEST 01-18-2015 [facility] PAIN [facility] P 45288 OSTEOARTHRO 12-30-2014 DANIEL NGO S INVLV MX SITES [place] 36407 PAIN IN 11-09-2014 [place] [facility] SHOULD[facility]ING ASS REGION V5832 ENCOUNTER 11-09-2014 [facility] FOR REMOVAL [facility] P 98033 PILAR CYST 11-02-2014 [facility]I 10363 UNSPECIFIED 10-06-2014 [facility] INFE[facility] PHYS IN CCE & UNS SITE 7840 HEADACHE 10-06-2014 [facility] 68101 ATROPHIC 09-16-2014 [facility] WITHOUT HOSPITA MENTION OF HEMORRHAGE 38024 OTHER SPEC 09-16-2014 [facility] WITHOUT MENTION HEMORRHAGE 68789 DYSPHAGIA 09-16-2014 [place] UNSPECIFIED [facility]HESIA GROUP PS 6869 UNSPEC 08-17-2014 [facility] LOCAL INFECTION SKIN&SUBCUT ANEOUS TISSUE V7284 UNSPECIFIED 08-09-2014 [facility] VE EXAMINATION 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 7019 UNSPECIFIED 08-04-2014 [facility] HYPERTROPHI C&ATROPHIC CONDITION SKIN 88986 OTHER 08-04-2014 [facility] SEBORRHEIC KERATOSIS 7851 PALPITATION 08-04-2014 [facility] V7281 PRE-OPERATI 07-21-2014 [facility] CARDIOVASCU MEDICAL G LAR EXAMINATION 11403 PAINFUL 07-05-2014 ANKUR MIC RESPIRATION V771 SCREENING 05-24-2014 [facility] DIABETES MELLITUS 470 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 4779 ALLERGIC 03-17-2014 [facility] RHINITIS CAUSE UNSPECIFIED 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 01-10-2014 MAEGAN JARON MAXILLARY SINUSITIS V0481 NEED 01-06-2009 [facility] PROPHYLACTI HE[facility] C CENTRAL VACCINATION BANK ACCT &INOCULATIO N FLU 01404 PAIN IN 01-04-2009 [place] [facility] PELVIC IMAGING REGION AND ASSOCIATES THIGH 36838 DISPLCMT 01-04-2009 [place] LUMBAR MEDICAL INTERVERT 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 8460 SPRAIN AND 01-04-2009 [employer] 8472 LUMBAR 01-04-2009 [place] [facility] STRAIN INC 75832 CONTUSION 01-04-2009 [employer] BACK Business Combined 51517 CONTUSION 01-04-2009 [employer] BUTTOCK Business Combined E8490 PLACE OF 01-04-2009 [place] OCCURRENCE, MEDICAL HOME IMAGING ASSOCIATES E8859 FALL FROM 01-04-2009 [place] OTHER MEDICAL SLIPPING IMAGING TRIPPING OR ASSOCIATES [...] 43 RA 30 17 17 61 PH LA 5 60 AR DE MA CY 10 MG TA BL ET FL 50 07 08 16 30 00 CL Ac UT 38 -0 -0 .0 00 IN ti IC 30 7- 4- 00 00 IC ve 70 20 20 42 ON 01 17 17 79 PH E 6 94 AR HI MA OP CY 50 MC G SP [...] 43 ZA 60 17 17 63 PH HI 1 09 AR IN MA E CY [...] YL 15 2- 7- 00 01 ve HI 02 20 20 18 AI ED 20 [...] 17 79 PH E 6 94 AR HI MA OP CY 50 MC G SP [...] 43 ZA 60 17 17 25 PH HI 1 00 AR IN MA E CY [...] 17 79 PH E 6 94 AR HI MA OP CY 50 MC G SP [...] 42 ZA 60 17 17 82 PH HI 1 16 AR IN MA E CY 5 MG TA BL ET FL 50 04 05 16 30 00 CL Ac UT 38 -1 -1 .0 00 IN ti IC 30 3- 2- 00 00 IC ve 70 20 20 42 ON 01 17 17 79 PH E 6 94 AR HI MA OP CY 50 MC G SP [...] 42 ZA 60 17 17 59 PH HI 1 23 AR IN MA E CY [...] 1 70 PH CE AR TA MA LA CY NO PH #3 93 7. 8 5- 32 5 OS 47 03 03 10 10 00 CL Ac EL 78 -0 -3 .0 00 IN ti TA 10 7- 1- 00 00 IC ve LA 47 20 20 42 01 17 17 [...] 0 CY MG CA PS UL E HI 65 03 03 20 5 00 CL [...] 17 53 PH E 6 48 AR HI MA OP CY 50 MC G SP [...] 42 ZA 60 17 17 30 PH HI 1 05 AR IN MA E CY [...] MG #3 TA 93 BL 8 ET HI 59 02 03 10 5 00 RI [...] 42 ZA 81 17 17 08 PH HI 0 66 AR IN MA E CY [...] 17 53 PH E 9 48 AR HI MA OP CY 50 MC G SP [...] 5 25 PH CE AR TA MA LA CY NO PH OF CY 7. NT [...] 12 01 20 10 00 CL Ac HI 46 -2 -2 .0 00 IN ti [...] 12 01 14 7 00 CL Ac HI 46 -1 -2 .0 00 IN ti [...] 17 53 PH E 9 48 AR HI MA OP CY 50 MC G SP RA Y ME 59 02 02 00 21 6 CL 18 GA Ac TH 74 -1 -2 .0 IN 75 IN ti YL 60 2- 6- 00 IC 10 EY ve HI 00 20 20 ED 10 09 09 PH LA NI 3 AR CH SO MA AE LO CY L NE S 4 MG DO SE PK CY 59 02 02 00 21 7 CL 18 GA Ac CL 74 -1 -2 .0 IN 75 IN ti OB 60 2- 6- 00 IC 11 EY ve EN 17 20 20 ZA 70 09 09 PH LA HI 6 AR CH IN MA AE E [...] Procedure DOS Code Location Performer Comment ECG 00707 [facility] PASCUAL ROUTINE 7 PHYSICIAN ECG S, PLLC W/LEAST 12 LDS I&R ONLY EGD 79576 DOMINICK SANCHEZ TRANSORAL 7 HEALTH BIOPSY MEDICAL SINGLE/MU GROUP LTIPLE ECG 86311 [facility] ROUTINE 7 HEART ECG SPECIALIS W/LEAST TS, 12 LDS I&R ONLY ECG 76956 [facility] 7 PHYSICIAN ECG S, PLLC W/LEAST 12 LDS I&R ONLY COMPREHEN 58062 [place] [facility] SIVE 7 [facility] METABOLIC INC INC PANEL ECG 47952 [place] [facility] ROUTINE 7 [facility] ECG INC INC W/LEAST 12 LDS TRCG ONLY W/O I&[place] [address] [place] [facility] TROPONIN 7 [facility] QUANTITAT INC INC SABIHA ECG 80845 [facility] WOR[facility]IP ROUTINE 7 HEALTH HEALTH ECG [facility] W/LEAST 12 LDS TRCG ONLY W/O I&R COLPOSCOP 04462 [facility] HUMPHREY Y CERVIX 7 PHYSICIAN BX CERVIX S GROUP & [place] [address] [facility], PICKLESIM SURG 7 LLC ER JR PATHOLOGY GROSS&[place] EX[place] [address] [facility] WOR[facility]IP TRACT 7 [facility] UPPER [facility] W/WO DELAYED IMAGES W/KUB UNCLASSIF J3490 [place] [facility] IED DRUGS 7 [place] [address] [place] [facility] HEAD/BRAI 7 [facility] N W/O INC INC CONTRAST MATERIAL BLOOD 98772 [place] [facility] COUNT 7 [facility] COMPLETE INC INC AUTO&AUTO DIFRNTL WBC GONADOTRO 08299 [place] [facility] PIN 7 [facility] LUTEINIZI INC INC NG HORMONE GONADOTRO 36122 [place] [facility] PIN 7 [facility] FOLLICLE INC INC STIMULATI NG HORMONE LIPID 07767 [place] [facility] PANEL 7 [place] [address] [facility] [facility] GAMMAGLOB 7 [facility] ULIN IGA INC INC IGD IGG IGM EACH COMPREHEN 30843 [place] [facility] SIVE 7 [facility] METABOLIC INC INC PANEL COMPREHEN 75470 [place] [facility] SIVE 7 [facility] METABOLIC INC INC PANEL URNLS DIP 74926 [place] [facility] 7 [facility] STICK/TAB INC INC LET REAGENT AUTO MICROSCOP Y UNCLASSIF J3490 [place] [facility] IED DRUGS 7 [facility] INC INC BLOOD 07484 [facility] COUNT 7 [facility] COMPLETE INC INC AUTO&[place] [address] [place] [facility] INFUSION 7 [facility] THERAPY INC INC PROPHYLAX IS/[place] [address] [facility] [facility] INFUSION 7 [facility] THERAPY/P INC INC ROPHYLAXI S /DX 1ST TO 1 HR UNCLASSIF J3490 [place] [facility] IED DRUGS 7 [facility] INC INC URNLS DIP 29504 [facility] HUMPHREY 7 PHYSICIAN STICK/TAB S GROUP LET RGNT NON-AUTO W/O MICRSCP IADNA 19597 [facility] TOD HUMAN 7 LLC PAPILLOMA VIRUS HIGH-RISK TYPES CYTP 74322 [facility] CERVICAL/ 7 LLC VAGINAL REQ INTERP PHYSICIAN CYTP C/V 09198 [facility], [facility] AUTO THIN 7 LLC LYR PREPJ SCR MNL RESCR PHYS ECG 38795 [place] [facility] ROUTINE 7 [facility] ECG INC INC W/LEAST 12 LDS TRCG ONLY W/O I&R COMPREHEN 64605 [place] [facility] SIVE 7 [facility] METABOLIC INC INC PANEL BLOOD 55991 [place] [facility] COUNT 7 [facility] COMPLETE INC INC AUTO&AUTO DIFRNTL WBC ANTINUCLE 52039 [place] [facility] AR 7 [facility] ANTIBODIE INC INC S SANNA PROTEIN 48516 [place] [facility] ELECTROPH 7 [facility] ORETIC INC INC FRACTJ&QU ANTJ SERUM URNLS DIP 93128 [facility] 7 [facility] STICK/TAB INC INC LET RGNT AUTO W/O MICROSCOP Y UNCLASSIF J3490 [place] [facility] IED DRUGS 7 [facility] INC INC CREATININ 81042 [place] [facility] E BLOOD 7 [facility] INC INC CT THORAX 88048 [place] TALLEYON 7 [facility] W/[place] [address] [place] [facility] UREA 7 [facility] NITROGEN INC INC QUANTITAT SABIHA ECG 20866 [place] [facility] ROUTINE 7 [facility] ECG INC INC W/LEAST 12 LDS TRCG ONLY W/O I&R NJX 45658 YVET[facility] DUFF DX/THER 7 MD RHIANNON, AGT PVRT PSC FACET JT LMBR/SAC 3+ LEVEL NJX 93688 YVETTE DUFF DX/THER 7 MD RHIANNON, AGT PVRT PSC FACET JT LMBR/SAC 1 LEVEL NJX 48493 YVETTE MAXIMOFF DX/THER 7 MD RHIANNON, AGT PVRT PSC FACET JT LMBR/SAC 2ND LEVEL ECG 29297 [facility] ROUTINE 7 PHYSICIAN ECG S GROUP W/LEAST 12 LDS I&R ONLY UNCLASSIF J3490 [place] [facility] IED DRUGS 7 [facility] INC INC APPL 28142 [place] [facility] MODALITY 7 [facility] 1/> AREAS INC INC TRACTION MECHANICA L APPL 33397 [place] [facility] MODALITY 7 [facility] 1/> AREAS INC INC ELEC STIMJ UNATTENDE D THERAPEUT 35059 [place] [facility] IC PX 1/> 7 [facility] AREAS INC INC EACH 15 MIN EXERCISES APPL 34862 [place] [facility] MODALITY 7 [facility] 1/> AREAS INC INC IONTOPHOR ESIS EA 15 MIN APPLICATI 24932 [place] [facility] ON 7 [facility] MODALITY INC INC 1/> AREAS HOT/COLD PACKS APPL 02840 [place] [facility] MODALITY 7 [facility] 1/> AREAS INC INC VASOPNEUM ATIC DEVICES APPL 31826 [place] [facility] MODALITY 7 [facility] 1/> AREAS INC INC ULTRASOUN D EA 15 MIN APPLICATI 45600 [place] [facility] ON 7 [facility] MODALITY INC INC 1/> AREAS HOT/COLD PACKS PHYSICAL 27340 [place] [facility] THERAPY 7 [facility] EVALUATIO INC INC N HIGH COMPLEX 45 MINS APPL 18955 [place] [facility] MODALITY 7 [facility] 1/> AREAS INC INC ELEC STIMJ UNATTENDE D APPL 90529 [place] [facility] MODALITY 7 [facility] 1/> AREAS INC INC TRACTION MECHANICA L RADEX 55350 [place] [facility] ABDOMEN 7 [facility] COMPL INC INC W/DCBTS&/ [place] [address] [place] [facility] TROPONIN 7 [facility] QUANTITAT INC INC SABIHA THERAPEUT 53470 [place] [facility] IC 7 [facility] INJECTION INC INC IV PUSH EACH NEW DRUG BLOOD 38519 [place] [facility] COUNT 7 [facility] COMPLETE INC INC AUTO&AUTO DIFRNTL WBC THER 59462 [place] [facility] PROPH/DX 7 [facility] NJX IV INC INC PUSH SINGLE/1S T SBST/DRUG UNCLASSIF J3490 [place] [facility] IED DRUGS 7 [facility] INC INC ECG 84451 [place] [facility] ROUTINE 7 [facility] ECG INC INC W/LEAST 12 LDS TRCG ONLY W/O I&R CREATINE 77530 [place] [facility] KINASE 7 [facility] [place] [address] [place] [facility] LIPASE 7 [facility] INC INC ECG 36877 [place] MATUTE ROUTINE 7 [facility] W/LEAST P 12 LDS I&R ONLY COMPREHEN 82119 [place] [facility] SIVE 7 [facility] [place] [address] [place] [facility] AMYLASE 7 [facility] INC INC CREATINE 47051 [place] [facility] KINASE MB 7 [facility] FRACTION INC INC ONLY ECG 35945 [facility] KIMBERLY ROUTINE 7 PHYSICIAN ECG S GROUP W/LEAST 12 LDS I&R ONLY ECG 21032 [place] [facility] ROUTINE 7 [facility] ECG INC INC W/LEAST 12 LDS TRCG ONLY W/O I&R APPLICATI 58520 [place] [facility] ON 7 [facility] MODALITY INC INC 1/> AREAS HOT/COLD PACKS APPL 23350 [place] [facility] MODALITY 7 [facility] 1/> AREAS INC INC TRACTION MECHANICA L APPL 19914 [place] [facility] MODALITY 7 [facility] 1/> AREAS INC INC ELEC STIMJ UNATTENDE D APPL 25238 [place] [facility] MODALITY 7 [facility] 1/> AREAS INC INC ELEC STIMJ UNATTENDE D APPL 84246 [place] [facility] MODALITY 7 [facility] 1/> AREAS INC INC TRACTION MECHANICA L APPLICATI 00666 [place] [facility] ON 7 [facility] MODALITY INC INC 1/> AREAS HOT/COLD PACKS APPLICATI 38187 [place] [facility] ON 7 [facility] MODALITY INC INC 1/> AREAS HOT/COLD PACKS THERAPEUT 11692 [place] [facility] IC PX 1/> 7 [facility] AREAS INC INC EACH 15 MIN EXERCISES APPL 60077 [place] [facility] MODALITY 7 [facility] 1/> AREAS INC INC ELEC STIMJ UNATTENDE D ECG 12986 [facility] KIMBERLY ROUTINE 7 PHYSICIAN ECG S GROUP W/LEAST 12 LDS I&R ONLY XTRNL ECG 26566 [place] [facility] & 48 HR 7 [facility] RECORDING INC INC CREATINE 09551 [place] [facility] KINASE MB 7 [facility] FRACTION INC INC ONLY COMPREHEN 66466 [facility] [facility] SIVE 7 [facility] METABOLIC INC INC PANEL ECG 78768 [facility] SANDHU ROUTINE 7 PHYSICIAN ECG S, PLLC W/LEAST 12 LDS I&R ONLY ECG 59704 [place] [facility] ROUTINE 7 [facility] ECG INC INC W/LEAST 12 LDS TRCG ONLY W/O I&R RADIOLOGI 34806 [place] [facility] C EXAM 7 [facility] CHEST 2 INC INC VIEWS FRONTAL&L ATERAL CREATINE 25175 [place] [facility] KINASE 7 [facility] [place] [address] [place] [facility] TROPONIN 7 [facility] QUANTITAT INC INC SABIHA MRI 95281 WENDY ADAMS SPINAL 7 CANAL ORTHOPAED LUMBAR ICS PSC W/O CONTRAST MATERIAL GROUND A0425 STACY KUMAR MILEAGE 7 AMBULANCE AMBULANCE PER SERVICE SERVICE STATUTE MILE BLOOD 51878 [place] [facility] COUNT 7 [facility] COMPLETE INC INC AUTO&AUTO DIFRNTL WBC AMB A0427 STACY KUMAR SERVICE 7 AMBULANCE AMBULANCE ALS SERVICE SERVICE EMERGENCY TRANSPORT LEVEL 1 THERAPEUT 09010 [place] [facility] IC PX 1/> 7 [facility] AREAS INC INC EACH 15 MIN EXERCISES APPLICATI 91302 [place] [facility] ON 7 [facility] MODALITY INC INC 1/> AREAS HOT/COLD PACKS APPL 66511 [place] [facility] MODALITY 7 [facility] 1/> AREAS INC INC ELEC STIMJ UNATTENDE D APPL 58446 [place] [facility] MODALITY 7 [facility] 1/> AREAS INC INC TRACTION MECHANICA L RADEX 34683 [facility] SPINE 7 [place] LUMBOSACR ORTHOPAED AL 2/3 IC VIEWS ECG 32989 [place] ROUTINE 7 [facility] ECG INC INC W/LEAST 12 LDS TRCG ONLY W/O I&R ECG 39688 [place] ROUTINE 7 [facility] W/LEAST P 12 LDS I&[place] [address] [facility] CERVICAL 7 MEDICAL MEDICAL SPINE W/O [place]AG[place] [address] [place] HEAD/BRAI 7 MEDICAL N W/O IMAGING CONTRAST ASS MATERIAL COLLECTIO 57625 [place] [facility] N VENOUS 7 [facility] BLOOD INC INC VENIPUNCT URE 25 86233 [place] [facility] HYDROXY 7 [facility] INCLUDES INC INC FRACTIONS IF PERFORMED CYANOCOBA 27846 [place] [facility] LYUBOV 7 [facility] VITAMIN INC INC B-12 [place] [address] [place] [facility] FOLIC 7 [facility] ACID INC INC SERUM UNCLASSIF J3490 [place] [facility] IED DRUGS 7 [facility] INC INC THERAPEUT 52130 [place] [facility] IC 7 [facility] PROPHYLAC INC INC TIC/DX INJECTION SUBQ/IM UNCLASSIF J3490 [place] [facility] IED DRUGS 7 [facility] INC INC URNLS DIP 73217 [place] [facility] 7 [facility] STICK/TAB INC INC LET REAGENT AUTO MICROSCOP Y DESTRUCTI 59282 JASSO JASSO ON BENIGN 7 LESIONS UP [place] 14 [place] [address] WOR[facility]IP WORSHIP TRACT 7 [facility] UPPER [facility] W/WO DELAYED IMAGES W/KUB RADEX 99233 [place] [facility] ABDOMEN 1 7 MEDICAL IMAGING ANTEROPOS ASS TERIOR VIEW TX PROC G0238 [place] [facility] IMPRV 7 [facility] RESP INC INC FUNCT NOT G0237 FCE-FCE 15MIN BLOOD 13690 [place] [facility] COUNT 7 [facility] COMPLETE INC INC AUTO&[place] [address] [place] [facility] INFUSION 7 [facility] THERAPY/P INC INC ROPHYLAXI S /DX 1ST TO 1 HR COMPREHEN 20082 [place] [facility] SIVE 7 [facility] METABOLIC INC INC PANEL RAD EXP G9500 [place] C[facility] INDICES/E 7 MEDICAL XP TM & IMAGING NUMB ASS FLUORO IMAGES DOC RADEX 81905 [place] [facility] ESOPHAGUS 7 MEDICAL IMAGING ASS INJECTION J1100 WORSHIP WORSHIP [address] [place] [address] DEXAMETHO [facility] SONE SODIUM PHOSPHATE 1 MG INJECTION J1170 WORSHIP WORSHIP [address] [place] [address] HYDROMORP [facility] KURTIS UP TO 4 MG LAPS RPR 25297 WORSH[facility] GARCIA PARAESPHG 7 [facility] HRNA MEDICAL INCL GROUP FUNDPLSTY W/O MESH INJECTION J0330 [facility] WOR[facility] [address] [place] [address] SUCCINYLC [facility] HOLINE CHLORIDE UP TO 20 MG INJECTION J2405 [facility] WOR[facility]IP [address] [place] [address] ONDANSETR [facility] ON HCL PER 1 MG INJECTION J2704 WOR[facility]IP WORSHIP PROPOFOL 7 [facility] 10 MG [facility] INJECTION J2710 WORSHIP WORSHIP [address] [place] [address] NEOSTIGMI [facility] NE METHYLSUL FATE UP TO 0.5 MG INJECTION J3010 WORSHIP WORSHIP FENTANYL [address] [place] [address] CITRATE [facility] 0.1 MG ANES 48944 [facility] INTRAPERI 7 [place] TONEAL ANESTHESI UPPER A ABDOMEN W/LAPS NOS INJECTION J1650 WORSHIP WORSHIP 7 [facility] ENOXAPARI [facility] N SODIUM 10 MG GLUCOSE 12223 WOR[facility] WORSHIP QUANTITAT 7 [facility] SABIHA BLOOD [facility] XCPT REAGENT STRIP HEMOGLOBI 92573 WORSHIP WORSHIP N 7 [facility] GLYCOSYLA [facility] LANEY A1C COLLECTIO 88521 [facility] WORSHIP N VENOUS 7 [facility] BLOOD [facility] VENIPUNCT URE ECG 70875 [facility] ANNA ROUTINE 7 [facility] ECG MEDICAL W/LEAST GROUP 12 LDS I&R ONLY ECG 72451 [facility]IP ROUTINE 7 [facility] ECG [facility] W/LEAST 12 LDS TRCG ONLY W/O I&R BLOOD 29194 [facility] WORSHIP COUNT 7 [facility] COMPLETE [facility] [place] [address] [place] [facility] INFUSION 6 [facility] THERAPY/P INC INC ROPHYLAXI S /DX 1ST TO 1 HR THERAPEUT 95441 [place] [facility] IC 6 [facility] INJECTION INC INC IV PUSH EACH NEW DRUG BLOOD 93484 [place] [facility] COUNT 6 [facility] COMPLETE INC INC AUTO&AUTO DIFRNTL WBC ECG 92021 [place] [facility] ROUTINE 6 [facility] ECG INC INC W/LEAST 12 LDS TRCG ONLY W/O I&R RADEX 55591 [facility] ABDOMEN 6 MEDICAL MEDICAL COMPL IMAGING IMAGING W/DCBTS&/ ASS ASS ERC VIEWS RADIOLOGI 97355 [facility] C EXAM 6 MEDICAL MEDICAL CHEST 2 IMAGING IMAGING VIEWS ASS ASS FRONTAL&[place] [address] [place] [facility] LIPASE 6 [facility] INC INC ECG 37334 [place] CHAVEZ JR ROUTINE 6 [facility] W/LEAST P 12 LDS I&[place] [address] [place] [facility] AMYLASE 6 [facility] INC INC COMPREHEN 65904 [place] [facility] SIVE 6 [facility] METABOLIC INC INC PANEL BLOOD 89534 [facility] OCCULT 6 VALLEY PEROXIDAS INTERNAL E ACTV MED QUAL FECES 1 DETER GLUC BLD 05305 [place] [facility] GLUC MNTR 6 [facility] DEV INC [place] [address] SEJAL CANSECO HEAD/BRAI 6 MEDICAL N W/O IMAGING CONTRAST ASS MATERIAL THERAPEUT 11969 [facility] [place] IC 6 [facility] PROPHYLAC INC INC TIC/DX INJECTION SUBQ/IM RADEX 17030 [facility] ALL SACRUM & 6 MEDICAL COCCYX IMAGING MINIMUM 2 ASS VIEWS RADIOLOGI 12318 [facility] ALL C 6 MEDICAL EXAMINATI IMAGING ON PELVIS ASS 1/2 VIEWS URINE 05174 [facility] 6 [facility] TEST INC INC VISUAL COLOR CMPRSN METHS RADEX 52548 [facility] ALL SPINE 6 MEDICAL LUMBOSACR IMAGING AL ASS MINIMUM 4 VIEWS RADIOLOGI 32647 [place] [facility] C EXAM 6 [facility] CHEST 2 INC INC VIEWS FRONTAL&L ATERAL RADEX 05688 [facility] CANSECO SINUSES 6 MEDICAL ADRIANNA PARANASAL IMAGING COMPL ASS MINIMUM 3 [place] [address] [place] [facility] STREPTOCO 6 [facility] CCUS INC INC GROUP A IAADI 29059 [place] [facility] INFLUENZA 6 [facility] B VIRUS INC INC IAADI 18952 [place] INFFLUENZ 6 [facility] A A VIRUS INC INC BLOOD 94124 [place] COUNT 6 [facility] COMPLETE INC INC AUTO&AUTO DIFRNTL WBC CUL BACT 69111 [place] XCPT 6 [facility] URINE INC INC BLOOD/[place] [address] [facility], [facility] SURG 6 [facility] PATHOLOGY GROSS&BRYCE ROSCOPIC EXAM DECALCIFI 28058 [facility], [facility] CATION 6 [facility] PROCEDURE ANESTHESI 34141 [facility] FEEBACK A NOSE & 6 ANESTH ACCESSORY OF THE SINUSES BLUE NOS ECG 26887 [place] ROUTINE 6 [facility] ECG INC INC W/LEAST 12 LDS TRCG ONLY W/O I&R ECG 23437 [place] ROUTINE [address] [facility] W/LEAST P 12 LDS I&R ONLY COLLECTIO 81045 [place] N VENOUS 6 [facility] BLOOD INC INC VENIPUNCT URE COMPREHEN 45300 [place] SIVE 6 [facility] METABOLIC INC INC PANEL BLOOD 95812 [place] COUNT 6 [facility] COMPLETE INC INC AUTO&AUTO DIFRNTL WBC ANTIBODY 08298 [place] HERPES 6 [facility] SMPLX INC INC TYPE 1 ANTIBODY 92432 [place] VIRUS NOT 6 [facility] [place] [address] [place] MAXILLOFA 6 MEDICAL ADRIANNA CIAL W/O IMAGING CONTRAST ASS MATERIAL URINE 71740 [place] [facility] TEST INC [place] [address] [place] HEAD/BRAI 6 MEDICAL N W/[place] [address] [place] CERVICAL 6 MEDICAL SPINE W/O IMAGING CONTRAST ASS MATERIAL COMPRE 38284 MAEGAN ISSA AUDIOMETR 6 JARON JARON Y THRESHOLD EVAL SP RECOGNIJ TYMPANOME 79555 MAE[place] ISSA TRY 6 JARON JARON DISTORT 79989 ISSA ISSA PRODUCT 6 JARON JARON EVOKED OTOACOUST IC EMISNS LIMITD PULMONARY 98547 [place] NO[place] STRESS 6 MEDICAL TESTING SERV SIMPLE FOUNDATIO N GAS [address]1061 [place] DILUT/WAS 6 MEDICAL MEDICAL HOUT LUNG SERV SERV VOL W/WO FOUNDATIO FOUNDAT[place] DISTRIB N N VENT&[place] [address] [place] NO[place] DIFFUSING 6 MEDICAL CAPACITY SERV FOUNDATIO N ELIG CLIN G8427 STAMPING RODRIGUEZ TRI ATTSTS 6 GROUND DOC M REC FAMILY OBTD CLINI UPD/REV PT MEDS ECG 26600 [place] ROUTINE [address] [facility] W/LEAST P 12 LDS I&R ONLY IM ADM 82536 [facility] PRQ ID 6 [facility] SUBQ/IM HLTH DEPT HLTH DEPT NJXS EA JAZZ JAZZ VACCINE BLOOD 60648 [place] OCCULT 6 [facility] PEROXIDAS INC INC E ACTV QUAL FECES 1-3 SPEC COLLECTIO 97286 [place] N VENOUS 6 [facility] BLOOD INC INC VENIPUNCT URE IM ADM 39166 [facility] PRQ ID 6 [facility] DISTRICT SUBQ/IM HLTH DEPT HLTH DEPT NJXS 1 JAZZ JAZZ VACCINE TDAP 04341 [facility] VACCINE 7 6 [facility] YRS/> IM HLTH DEPT HLTH DEPT JAZZ JAZZ BLOOD 37778 [place] COUNT 6 [facility] COMPLETE INC INC AUTO&AUTO DIFRNTL WBC SKIN TEST 27143 [facility] TUBERCULO HLTH DEPT HLTH DEPT SIS JAZZ JAZZ INTRADERM AL SYPHILIS 78663 [facility] TEST 6 [facility] NON-TREPO HLTH DEPT HLTH DEPT NEMAL JAZZ JAZZ ANTIBODY QUAL XTRNL ECG 00441 [place] 6 [facility] S RHYTHM P W/I&R UP TO 48 HRS SPMTRY 53623 ALLERGY [place] MAR W/VC 6 PART[facility]ERS EXPIRATOR OF [place] Y AHBI CO W/WO MXML VOL VNTJ ECG 67242 [place] ROUTINE [address] [facility] W/LEAST P 12 LDS I&R ONLY PROF SVCS 10834 ALLERGY [place] MAR ALLG 6 PARTNERS IMMNTX X OF [place] W/PRV CO ALLGIC XTRCS NJXS ANTINUCLE 68513 [place] AR 6 [facility] ANTIBODIE INC INC S SANNA BLOOD 19769 [place] COUNT 6 [facility] RETICULOC INC INC YTE AUTOMATED NITRIC 48778 ALLERGY [place] MAR OXIDE 6 [facility]ERS OF [place] GAS CO DETERMINA TION BLOOD 22354 [facility] [facility] COMPLETE INC INC AUTO&AUTO DIFRNTL WBC SEDIMENTA 97286 [place] [facility] TION RATE 6 [facility] RBC INC INC NON-AUTOM ATED AMBULANCE A0429 [facility] SERVICE 6 AMBULANCE PATY BLS SERVICE EMERGENCY TRANSPORT GROUND A0425 [facility] MILEAGE 6 AMBULANCE PTAY PER SERVICE STATUTE MILE RHEUMATOI 77812 [place] [facility] D FACTOR 6 [facility] QUANTITAT INC INC SABIHA SEDIMENTA 34088 [place] [facility] TION RATE 6 [facility] RBC INC INC NON-AUTOM ATED BLOOD 71481 [place] [facility] COUNT 6 [facility] COMPLETE INC INC AUTO&AUTO DIFRNTL WBC BLOOD 05313 [place] [facility] COUNT 6 [facility] RETICULOC INC INC YTE AUTOMATED COLLECTIO 11878 [facility] [facility] N VENOUS 6 [facility] BLOOD INC INC VENIPUNCT URE BONE 67729 [facility] [facility] &/JOINT 6 [facility] IMAGING INC INC WHOLE BODY BASIC 01596 [place] [facility] METABOLIC 6 [facility] PANEL INC INC CALCIUM TOTAL TECHNETIU A9503 [place] TC-99M 6 [facility] MEDRONATE INC INC DX UP TO 30 MCI RADIOLOGI 71681 [facility] C EXAM 6 MEDICAL MEDICAL CHEST 2 IMAGING IMAGING VIEWS ASS ASS FRONTAL&L ATERAL ANES 88823 [place] BRITTNY LOWER 6 ANESTHESI INTESTINE A GROUP [place] [address] [place] [facility] THYROID 6 [facility] STIMULATI [place] [address] [facility] [facility] THYROXINE 6 [facility] TOTAL INC INC THYROID 65929 [place] [facility] HORM 6 [facility] UPTK/THYR INC INC OID HORMONE BINDING RATIO GONADOTRO 42575 [place] [facility] PIN 6 [facility] FOLLICLE INC INC STIMULATI NG HORMONE GONADOTRO 27110 [place] [facility] PIN 6 [facility] LUTEINIZI INC INC NG HORMONE COLLECTIO 40419 [place] [facility] N VENOUS 6 [facility] BLOOD INC INC VENIPUNCT URE ECG 75170 [place] ROUTINE [address] [facility] W/LEAST P 12 LDS I&R ONLY RADIOLOGI 68450 [facility] C 6 MEDICAL MEDICAL EXAMINATI IMAGING IMAGING ON CHEST ASS ASS SINGLE VIEW FRONTAL GROUND A0425 [facility] MILEAGE 6 AMBULANCE KILO PER SERVICE STATUTE MILE AMB A0427 [facility] SERVICE 6 AMBULANCE KILO ALS SERVICE EMERGENCY TRANSPORT LEVEL 1 PREPJ& 91766 ALLERGY ROSENTHAL MAR ALLERGEN 6 [facility] IMMUNOTHE OF TRE [place]ERE[place] CO 1/[place] [address] [place] [facility] INFUSION 6 [facility] THERAPY INC INC PROPHYLAX IS/DX EA HOUR BLOOD 99065 [place] [facility] COUNT 6 [facility] COMPLETE INC INC AUTO&[place] [address] [place] [facility] INFUSION 6 [facility] THERAPY/P INC INC ROPHYLAXI S /DX 1ST TO 1 HR RADIOLOGI 97419 [facility] [facility] C 6 [facility] EXAMINATI INC INC ON KNEE 3 [place] [address] [facility] [facility] TROPONIN 6 [facility] [place] [address] [facility] [facility] CERVICAL 6 [facility] SPINE W/[place] [address] [place] [facility] HEAD/BRAI 6 [facility] N W/O INC INC CONTRAST MATERIAL ECG 27137 [place] ROUTINE [address] [facility] W/LEAST P 12 LDS I&R ONLY COMPREHEN 16875 [place] [facility] SIVE 6 [facility] METABOLIC INC INC PANEL CREATINE 65724 [place] [facility] KINASE MB 6 [facility] FRACTION INC INC ONLY CREATINE 42229 [place] [facility] KINASE 6 [facility] TOTAL INC INC ECG 68568 [place] [facility] ROUTINE 6 [facility] ECG INC INC W/LEAST 12 LDS TRCG ONLY W/O I&R SPACR A4627 [facility] KRASNOPOL BAG/RESRV 6 EQUIPMENT ANTONIO LAUREN OR W/WO INC MASK W/METRD DOSE INHAL SPMTRY 01286 ALLER[facility] ROSENTHAL MAR W/VC 6 [facility] EXP[employer] OF [place] Y ABHI CO W/WO MXML VOL VNTJ PERCUTANE 80153 ALLER[facility] ROS[facility] MAR OUS TESTS 6 [facility] [place] W/ALLERGE CO LEO EXTRACTS INTRACUTA 39570 ALLER[facility] ROS[facility]HAL MAR NEOUS 6 [facility]ERS TESTS OF [place] W/ALLERGE CO LEO EXTRACTS NITRIC 37211 [facility] ROS[facility]HAL MAR OXIDE 6 [facility] [place] [address] [facility] TRANSVAGI 6 PHYSICIAN MEAGAN NAL S GROUP ECG 63574 [place] CHAVEZ JR ROUTINE 6 [facility] W/LEAST P 12 LDS I&R ONLY IADNA 89496 [place] [facility] NEISSERIA 6 [facility] INC INC GONORRHOE AE AMPLIFIED PROBE TQ IADNA 85778 [place] [facility] CHLAMYDIA 6 [facility] INC INC TRACHOMAT [place] [address] [facility] [place] AND[facility]WS TRACT 6 RADIOLOGY RHO UPPER W/WO DELAYED IMAGES W/KUB ECG 67992 [place] ROUTINE [address] [facility] W/LEAST P 12 LDS I&R ONLY RADIOLOGI 04960 [place] CERRATO ALL C 6 MEDICAL EXAMINATI IMAGING ON CHEST ASS SINGLE VIEW FRONTAL ELECTROEN 13396 [facility] CEPHALOGR 6 N AM W/REC NEUROLOGY AWAKE&ASL EEP ECG 73518 [place] ROUTINE [address] [facility] W/LEAST P 12 LDS I&[place] [address] [facility] ABDOMEN & 6 MEDICAL MEDICAL PELVIS IMAGING IMAGING W/CONTRAS ASS ASS T MATERIAL ELECTROEN 36190 [facility] CEPHALOGR 6 N N AM W/REC COMMUNTIY COMMUNTIY AWAKE&[facility] H[facility]PITA HOSPITA WSY RADEX 09580 SEJAL CERRATO ALL SPINE 6 MEDICAL THORACIC IMAGING 2 VIEWS ASS RADIOLOGI 15005 SEJAL CERRATO ALL C 6 MEDICAL EXAMINATI IMAGING ON CHEST ASS SINGLE VIEW FRONTAL ECG 41197 [place] CH[facility] JR ROUTINE 6 [facility] W/LEAST P 12 LDS I&R ONLY COMPUTER- 97054 [facility] HARLEEN AIDED 6 MEDICAL ADRIANNA DETECTION IMAGING ASS SCREENING MAMMOGRAP HY SCREENING G0202 [facility] CANSECO 6 MEDICAL ADRIANNA MAMMOGRAP IMAGING HY WILB[place] [address] [place] [facility] INFUSION 6 [facility] THERAPY/P INC INC ROPHYLAXI S /DX 1ST TO 1 HR BLOOD 11638 [place] [facility] COUNT [facility] COMPLETE INC INC AUTO&[place] [address] [place] [facility] TROPONIN 6 [facility] QUANTITAT INC INC SABIHA RADEX ABD 73933 SEJAL CERRATO ALL COMPL 6 MEDICAL AQT ABD IMAGING W/S/E/D ASS VIEWS 1 VIEW CH ECG 91915 [place] [facility] ROUTINE 6 [facility] W/LEAST P 12 LDS I&R ONLY COMPREHEN 50038 [place] [facility] SIVE 6 [facility] METABOLIC INC INC PANEL URNLS DIP 47609 [place] [facility] 6 [facility] STICK/TAB INC INC [place] [address] [place] [facility] LACTATE 6 [facility] INC INC ECG 01400 [place] [facility] ROUTINE 6 [facility] ECG INC INC W/LEAST 12 LDS TRCG ONLY W/[place] [address] [place] [facility] INFUSION 6 [facility] THERAPY/P INC INC ROPHYLAXI S /DX 1ST TO 1 HR BLOOD 90109 [place] [facility] COUNT 6 [facility] COMPLETE INC INC AUTO&AUTO DIFRNTL WBC CULTURE 43876 [place] [facility] BACTERIAL 6 [facility] INC INC QUANTTATI VE COLONY COUNT URINE RADIOLOGI 97789 SEJAL CERRATO ALL C EXAM 6 MEDICAL CHEST 2 IMAGING VIEWS ASS FRONTAL&[place] [address] [place] [facility] TROPONIN 6 [facility] QUANTITAT INC INC SABIHA ECG 66314 [place] [facility] ROUTINE 6 [facility] ECG INC INC W/LEAST 12 LDS TRCG ONLY W/O I&R CREATINE 78161 [place] [facility] KINASE 6 [facility] TOTAL INC INC URINE 92008 [place] [facility] 6 [facility] TEST INC INC VISUAL COLOR CMPRSN METHS URNLS DIP 02751 [place] [facility] 6 [facility] STICK/TAB INC INC LET REAGENT AUTO MICROSCOP Y COMPREHEN 27477 [place] [facility] SIVE 6 [facility] METABOLIC INC INC PANEL ECG 05313 [place] [facility] ROUTINE [address] [facility] W/LEAST P 12 LDS I&R ONLY CREATINE 99997 [place] [facility] KINASE MB 6 [facility] FRACTION INC INC ONLY RADEX ABD 45776 SEJAL CERRATO ALL COMPL 6 MEDICAL AQT ABD IMAGING W/S/E/D ASS VIEWS 1 VIEW CH GROUND A0425 [facility] MILEAGE 6 AMBULANCE AMBULANCE PER SERVICE SERVICE STATUTE MILE AMB A0427 [facility] SERVICE 6 AMBULANCE AMBULANCE ALS SERVICE SERVICE EMERGENCY TRANSPORT LEVEL 1 THER 14832 [facility] PROPH/DX 6 N N NJX IV COMMUNTIY COMMUNTIY PUSH HOSPITA HOSPITA SINGLE/1S T SBST/DRUG BLOOD 10221 [facility] COUNT 6 N N COMPLETE COMMUNTIY COMMUNTIY AUTO&[place] [address] [facility] INFUSION 6 N N HYDRATION COMMUNTIY COMMUNTIY EACH HOSPITA HOSPITA ADDITIONA L HOUR MRI BRAIN 02333 [facility] BRAIN 6 N N STEM W/O COMMUNTIY COMMUNTIY CONTRAST HOSPITA HOSPITA MATERIAL COMPREHEN 05062 [facility] SIVE 6 N N METABOLIC COMMUNTIY COMMUNTIY PANEL HOSPITA HOSPITA COLLECTIO 87273 [facility] N VENOUS 6 N N BLOOD COMMUNTIY COMMUNTIY VENIPUNCT HOSPITA HOSPITA URE ECG 45097 [place] ROUTINE [address] [facility] W/LEAST P 12 LDS I&R ONLY RADIOLOGI 76406 [place] C[place] ALL C 6 MEDICAL EXAMINATI IMAGING [place] [address] [place] C[place] ALL ABDOMEN & 6 MEDICAL PELVIS IMAGING W/[place] [address] [place] ALL HEAD/BRAI 6 MEDICAL N W/O IMAGING CONTRAST ASS MATERIAL GROUND A0425 [facility] MILEAGE 6 AMBULANCE AMBULANCE PER SERVICE SERVICE STATUTE MILE AMB A0427 [facility] SERVICE 6 AMBULANCE AMBULANCE ALS SERVICE SERVICE EMERGENCY TRANSPORT LEVEL 1 THERAPEUT 83055 [facility] IC PX 1/> 6 AREAS EACH 15 MIN EXERCISES CHIROPRAC 54570 [facility] TIC 6 MANIPULAT SABIHA TX SPINAL 3-4 REGIONS MANUAL 63874 [facility] THERAPY 6 TQS 1/> REGIONS EACH 15 MINUTES CHIROPRAC 23290 [facility] TIC 6 MANIPLTV TX EXTRASPIN AL 1/> REGION MANUAL 87150 [facility] THERAPY 6 TQS 1/> REGIONS EACH 15 MINUTES THERAPEUT 57798 [facility] LUKING IC PX 1/> 6 AREAS EACH 15 MIN EXERCISES CHIROPRAC 12201 [facility] TIC 6 MATTI MATTI MANIPULAT SABIHA TX SPINAL 3-4 REGIONS THERAPEUT 40704 [facility] LUKING IC PX 1/> 6 MATTI MATTI AREAS EACH 15 MIN EXERCISES MANUAL 46131 [facility] THERAPY 6 MATTI MATTI TQS 1/> REGIONS EACH 15 MINUTES CHIROPRAC 40227 [facility] TIC 6 MATTI MATTI MANIPLTV TX EXTRASPIN AL 1/> REGION IMHISTOCH 32248 SCALF LEI SCALF LEI EM/CYTCHM 6 1ST [place] [address] SCALF LEI SCALF LEI SURG 6 PATHOLOGY GROSS&BRYCE ROSCOPIC EXAM BX SKIN 87791 SCALF LEI SCALF LEI SUBCUTANE 6 OUS&/MUCO US MEMBRANE 1 LESION COMPREHEN 67958 [facility] QUEST SIVE 6 DIAGNOSTI DIAGNOSTI METABOLIC CS CS PANEL ECG 80943 [place] GIOVANI ROUTINE [address] [facility] W/LEAST P 12 LDS I&R ONLY COLLECTIO 96931 [facility]IP N VENOUS 6 [facility] BLOOD [facility] VENIPUNCT URE ECG 39257 [facility] MCKENNA ROUTINE 6 HEALTH IV HEN ECG MEDICAL W/LEAST GROUP 12 LDS I&R ONLY LIPID 07328 [facility] PANEL [address] [place] [address] HEMOGLOBI 97515 [facility] WORSHIP N [address] [place] [address] HEALTH GLYCOSYLA [facility] LANEY A1C BASIC 52043 [facility]IP METABOLIC 6 [facility] HEALTH PANEL [facility] CALCIUM TOTAL CATH PLMT 90424 WORSHIP MCKENNA L HRT & 6 HEALTH IV ARTS MEDICAL W/NJX & GROUP ANGIO IMG S&I LOCM Q9967 [facility] WORSHIP [phone] [facility] MG/ML [facility] IODINE CONCENTRA TION PER ML INJECTION J3010 [facility] WORSHIP FENTANYL 6 [facility] CITRATE [facility] 0.1 MG BLOOD 86065 [facility] WOR[facility]IP COUNT 6 [facility] COMPLETE [facility] AUTOMATED GONADOTRO 54483 [facility] WOR[facility]IP PIN 6 [facility] CHORIONIC [facility] QUANTITAT SABIHA INJECTION J1644 [facility] WORSHIP HEPARIN 6 [facility] SODIUM [facility] PER 1000 UNITS CV STRS 08286 [place] [facility] TST 6 [facility] XERS&/OR INC INC RX CONT ECG TRCG ONLY TECHNETIU A9500 [place] TC-99M 6 [facility] SESTAMIBI INC INC DX PER STUDY DOSE UNCLASSIF J3490 [place] [facility] IED DRUGS 6 [facility] INC INC CV STRS 46280 [place] [facility] TST 6 [facility]/OR [facility] RX CONT P P ECG W/O I&R CV STRS 61592 [place] [facility] TST 6 [facility]&/[facility] RX CONT P P ECG I&R ONLY MYOCARDIA 19112 SEJAL CERRATO ALL L SPECT 6 MEDICAL MULTIPLE IMAGING STUDIES ASS ECHO 18404 MELANIE RODRIGUEZ LEENA TTHRC R-T 6 MEDICAL 2D SERV W/WOM-MOD FOUNDATIO E COMPL N SPEC&COLR D ECG 39145 [place] CHAVEZ JR ROUTINE 6 [facility] W/LEAST P 12 LDS I&R ONLY RADIOLOGI 87260 SEJAL CERRATO ALL C 6 MEDICAL EXAMINATI IMAGING ON CHEST ASS SINGLE VIEW FRONTAL OPHTH 16295 [facility] MEDICAL 6 XM&EVAL COMPRHNSV ESTAB PT 1/> [place] [address] LAB [facility] IRON 6 [place] [address] LAB [facility] FOLIC 6 MAI MAI [place] [address] LAB [facility] FERRITIN 6 [place] [address] LAB [facility] MAGNESIUM 6 MAI MAI [facility]INGS ORGANIC 39677 LAB [facility] ACID 1 6 MAI MAI QU[place]IT[place] [address] LAB [facility] LAB [facility] PARATHORM 6 MAI MAI ONE [facility] HOLDINGS 25 65393 [facility] HYDROXY 6 MAI MAI INCLUDES [facility]INGS HOLDINGS FRACTIONS IF PERFORMED COMPREHEN 66139 [facility] SIVE 6 MAI MAI METABOL[place] [address] LAB [facility] ZINC 6 [place] [address] LAB [facility] PHOSPHORU 6 MAI MAI S [facility]INGS HOLDINGS INORGANIC PREALBUMI 46750 [facility]ESH N 6 [place] [address] LAB [facility] LAB [facility]ESH TOCOPHERO 6 MAI MAI L ALPHA [place] [address] LAB [facility] LAB MA[facility]ESH VITAMIN A 6 [place] [address] LAB MA[facility] LAB [facility] THIAMINE- 6 [facility] VITAMIN HOLDINGS HOLDINGS B-1 BLOOD 50857 LAB [facility] LAB MAHESH COUNT 6 [facility] COMPLETE HOLDINGS HOLDINGS AUTO&AUTO DIFRNTL WBC BLOOD 25149 [place] [facility] COUNT 6 [facility] COMPLETE INC INC AUTO&[place] [address] [place] [facility] THYROID 6 [facility] STIMULATI INC INC NG HORMONE TSH COMPREHEN 08103 [place] [facility] SIVE 6 [facility] METABOLIC INC INC PANEL COLLECTIO 92814 [place] [facility] N VENOUS 6 [facility] BLOOD INC INC VENIPUNCT URE 25 63814 [place] [facility] HYDROXY 6 [facility] INCLUDES INC INC FRACTIONS IF PERFORMED IRON 59463 [place] [facility] BINDING 6 [facility] [place] [address] [facility] VAUGHN FERRITIN [place] [address] [place] [facility] IRON 6 [facility] INC INC IADNA 54104 P&C LAB[facility]IND[facility] NEISSERIA 6 LLC GONORRHOE AE AMPLIFIED PROBE TQ CYTP C/V 57519 P&C [facility] AUTO THIN 6 LLC LYR PREPJ SCR MNL RESCR PHYS CYTP 76864 P&C [facility] CERVICAL/ 6 LLC VAGINAL REQ INTERP PHYSICIAN IADNA 52797 P&C [facility] CHLAMYDIA 6 LLC TRACHOMAT IS AMPLIFIED PROBE TQ IADNA 12555 P&C LABS, NAJERA HUMAN 6 LLC PAPILL[place] [address] [place] [facility] THYROID 6 [facility] STIMULATI INC INC NG HORMONE TSH BASIC 85388 [place] [facility] METABOLIC 6 [facility] PANEL INC INC CALCIUM TOTAL COLLECTIO 30648 [place] [facility] N VENOUS 6 [facility] BLOOD INC INC VENIPUNCT URE COMPREHEN 48525 [place] [facility] SIVE 6 [facility] METABOLIC INC INC PANEL COLLECTIO 81825 [place] [facility] N VENOUS 6 [facility] [place] [address] [facility] [facility] FERRITIN 6 [place] [address] [place] [facility] IRON 6 [facility] INC INC ORGANIC 07280 [place] [facility] ACID 1 6 [facility] QUANTITAT INC INC SABIHA PREALBUMI 98366 [place] [facility] N 6 [place] [address] [place] [facility] THIAMINE- 6 [facility] VITAMIN INC INC B-1 BLOOD 28041 [place] [facility] COUNT 6 [facility] COMPLETE INC INC AUTO&[place] [address] LAB MA[facility]ESH LAB MAHSEH THIAMINE- 5 MAI MAI VITAMIN [facility]INGS HOLDINGS B-1 PREALBUMI 66619 LAB [facility] LAB MAHESH N 5 MAI MAI [facility]INGS HOLDINGS ORGANIC 34471 LAB [facility] LAB [facility] ACID 1 5 MAI MAI QUANTITAT [place] [address] LAB MA[facility] LAB MAHESH IRON 5 [place] [address] LAB MAHESH LAB MAHESH FERRITIN 5 [place] [address] LAB MAHESH LAB MA[facility] FOLIC 5 MAI MAI ACID HOLDINGS HOLDINGS SERUM GENERAL 12127 LAB [facility] LAB MAHESH HEALTH 5 MAI MAI PANEL HOLDINGS HOLDINGS DESTRUCTI 21594 ATKINS ATKINS ON BENIGN 5 TRA TRA LESIONS UP TO 14 DESTRUCTI 11128 ATKINS ATKINS ON 5 TRA TRA PREMALIGN [place] 1[place] [address] SCALF LEI SCALF LEI SURG 5 PATHOLOGY GROSS&BRYCE ROSCOPIC EXAM BX SKIN 97069 ATKINS ATKINS SUBCUTANE 5 TRA TRA OUS&/MUCO US MEMBRANE 1 LESION BIOPSY 08-18-201 11655 ATKINS ATKINS SKIN 5 TRA TRA SUBQ&/MUC OUS MEMBRANE EA ADDL LESN BLOOD 44248 LAB [facility] LAB MAHESH COUNT 5 MAI MAI COMPLETE HOLDINGS HOLDINGS AUTO&AUTO DIFRNTL WBC PREALBUMI 04827 LAB [facility] LAB MAHESH N 5 [place] [address] LAB MAHESH LAB MAHESH THIAMINE- 5 [facility] VITAMIN HOLDINGS HOLDINGS B-1 [place] [address] LAB MAHESH LAB MAHESH FOLIC 5 [facility] ACID HOLDINGS HOLDINGS SERUM COMPREHEN 89228 LAB [facility] LAB MAHESH SIVE 5 [facility] METABOLIC [place] [address] LAB MAHESH LAB MAHESH IRON 5 [facility] HOLDINGS HOLDINGS ORGANIC 24304 LAB MAHESH LAB MAHESH ACID 1 5 [facility] QUANTITAT HOLDINGS HOLDINGS SABIHA COMPUTER- 54151 PSYCHIATRIC AIDED 5 MEDICAL CARMEN DETECTION IMAGING ASS SCREENING MAMMOGRAP HY SCREENING G0202 [place] [address] MEDICAL CARMEN MAMMOGRAP IMAGING HY WILBERT ASS INCL CAD WHEN PERFORMD BLOOD 32934 [place] [facility] COUNT 5 [facility] COMPLETE INC INC AUTO&[place] [address] [place] [facility] THYROID 5 [facility] STIMULATI INC INC NG HORMONE TSH CYANOCOBA 48618 [place] [facility] LYUBOV 5 [facility] VITAMIN INC INC B-12 [place] [address] [place] [facility] GLUTAMYLT 5 [facility] RASE INC INC GAMMA COMPREHEN 88172 [place] [facility] SIVE 5 [facility] METABOLIC INC INC PANEL 25 94948 [place] [facility] HYDROXY 5 [facility] INCLUDES INC INC FRACTIONS IF PERFORMED COLLECTIO 06065 [place] [facility] N VENOUS 5 [facility] BLOOD INC INC VENIPUNCT URE HEMOGLOBI 36577 [place] [facility] N 5 [facility] GLYCOSYLA INC INC LANEY A1C LIPID 08828 [place] [facility] PANEL 5 [facility] INC INC OPHTH 09747 SCIFRES SCIFRES MEDICAL 5 ANG ANG XM&EVAL COMPRHNSV ESTAB PT 1/> [place] [address] [facility] ABDOMEN & 5 N N PELVIS COMMUNTIY COMMUNTIY W/[place] [address] [place] [facility] ABDOMEN & 5 [facility] PELVIS INC INC W/CONTRAS T MATERIAL COMPREHEN 77986 [place] TALLEYON SIVE 5 [facility] [address] [place] [facility] AMYLASE 5 [facility] INC INC URNLS DIP 93905 [place] [facility] 5 [facility] STICK/TAB INC INC [place] [address] [place] [facility] LIPASE 5 [facility] INC INC URINE 99355 [place] [facility] 5 [facility] TEST INC INC VISUAL COLOR CMPRSN METHS BLOOD 38570 [place] [facility] COUNT 5 [facility] COMPLETE INC INC AUTO&AUTO DIFRNTL WBC CULTURE 64056 [place] [facility] BACTERIAL 5 [facility] INC INC QUANTTATI VE COLONY COUNT URINE BLOOD 54793 [facility] COUNT 5 N N COMPLETE COMMUNTIY COMMUNTIY AUTO&AUTO H[place] [address] [facility] TOCOPHERO 5 N N L ALPHA COMMUNTIY COMMUNTIY [place] [address] [facility] VITAMIN A 5 N N COMMUNTIY COMMUNTIY HOSPITA HOSPITA PREALBUMI 46071 [facility] N 5 N N COMMUNTI[place] [address] [facility] THIAMINE- 5 N N VITAMIN COMMUNTIY COMMUNTIY B-[place] [address] [facility] PHOSPHORU 5 N N S COMMUNTIY COMMUNTIY [place] [address] [facility] ZINC 5 N N COMMUNTI[place] [address] [facility] FOLIC 5 N N ACID COMMUNTIY COMMUNTI[place] [address] [facility] LIPASE 5 N N COMM[place] [address] [facility] MAGNESIUM 5 N N COMMUNTIY COMMUNTIY HOSPITA HOSPITA 85499 [facility] ABDOMINAL 5 N N REAL COMMUNTIY COMMUNTIY TIME HOSPITA HOSPITA W/IMAGE LIMITED ORGANIC 39834 [facility] ACID 1 5 N N QUANTITAT COMMUNTIY COMMUNTIY [place] [address] [facility] PARATHORM 5 N N ONE COMMUNTIY COMMUNTIY HOSPITA HOSPITA COLLECTIO 98250 [facility] N VENOUS 5 N N BLOOD COMMUNTIY COMMUNTIY VENIPUNCT HOSPITA HOSPITA URE COMPREHEN 14947 [facility] SIVE 5 N N METABOLIC COMMUNTIY COMMUNTIY PANEL HOSPITA HOSPITA 25 [id number] [facility] HYDROXY 5 N N INCLUDES COMMUNTIY COMMUNTIY [place]RACTIONS [place] [address] [facility] AMYLASE 5 N N COMMUNTIY COMMUNTIY HOSPITA HOSPITA COMPREHEN 40459 [facility] SIVE 5 N N METABOLIC COMMUNTIY COMMUNTIY PANEL HOSPITA HOSPITA COLLECTIO 73004 [facility] N VENOUS 5 N N BLOOD COMMUNTIY COMMUNTIY [place] [address] [facility] GAMMAGLOB 5 N N ULIN IGA COMMUNTIY COMMUNTIY IGD IGG HOSPITA HOSPITA IGM EACH ALPHA-1-A 15881 [facility] NTITRYPSI 5 N N N TOTAL COMMUNTIY COMMUNTIY HOSPITA HOSPITA IRON 58692 [facility] BINDING 5 N N CAPACITY [place] [address] [facility] RETROPERI 5 [facility] TONEAL INC [place] [id number] [facility] 5 MEDICAL TONEAL IMAGING REAL TIME ASS W/IMAGE LIMITED IMMUNOASS 48756 [facility] AY 5 N N ANALYTE COMMUNTIY COMMUNTIY QUAL/SEMI HOSPITA [place] [address] [facility] IRON 5 N N COMMUNTI[place] [address] [facility] FERRITIN 5 N N COMMUNTIY COMMUNTIY HOSPITA HOSPITA ANTINUCLE 26330 [facility] AR 5 N N ANTIBODIE COMMUNTIY COMMUNTIY S SANNA HOSPITA HOSPITA BLOOD 61480 [facility] COUNT 5 N N COMPLETE COMMUNTIY COMMUNTIY AUTOMATED HOSPITA HOSPITA HEPATITIS 31778 [facility] C 5 N N ANTIBODY COMMUNTIY COMMUNTIY HOSPITA HOSPITA HEPATITIS 17128 [facility] B CORE 5 N N ANTIBODY COMMUNTIY COMMUNTIY HBCAB HOSPITA HOSPITA TOTAL HEPATITIS 34689 [facility] B SURF 5 N N ANTIBODY COMMUNTIY [place] [address] [facility] HEPATITIS 5 N N B COMMUNTIY COMMUNTIY SURFACE HOSPITA HOSPITA ANTIGEN PROTHROMB 29477 [facility] IN TIME 5 N [place] [address] [place] SARAH KADIE ABDOMEN & 5 MEDICAL PELVIS IMAGING W/O ASS CONTRAST MATERIAL DUP-SCAN 37122 [facility] [place] ANDREWS XTR VEINS 5 RADIOLOGY [place] [address] [facility] LIPASE 5 N N COMMUNTIY COMMUNTIY HOSPITA HOSPITA COLLECTIO 42667 [facility] N VENOUS 5 N N BLOOD COMMUNTIY COMMUNTIY VENIPUNCT HOSPITA HOSPITA URE COMPREHEN 91353 [facility] SIVE 5 N N METABOLIC COMMUNTIY [place] [address] [facility] AMYLASE 5 N N COMMUNTIY COMMUNTIY HOSPITA HOSPITA BLOOD 49008 [facility] COUNT 5 N N COMPLETE COMMUNTIY COMMUNTIY AUTO&AUTO HOSPITA [place] [address] [facility] [place] SCALF HUBER TRACT 5 RADIOLOGY UPPER W/WO DELAYED IMAGES W/KUB LAPS 58207 BLUEGRASS SANCHEZ MICHELLE GSTRC 5 RSTRICTIV BARIATRIC PX SURGICAL LONGITUDI NAL GASTRECTO MY ANES IPR 30399 [place] BRITTNY ANT UPPER 5 ANESTHESI ABDOMEN A GROUP LAPS PS GASTRIC RSTCV MO LAPAROSCO 4382 [facility] PIC 5 N N VERTICAL COMMUNTIY COMMUNTIY SLEEVE HOSPITA HOSPITA GASTRECTO MY OTHER 4513 [facility] ENDOSCOPY 5 N N OF SMALL COMMUNTIY COMMUNTIY HOSPITA HOSPITA INTESTINE APPLICATI 02276 [place] [facility] ON 5 [facility] MODALITY INC INC 1/> AREAS HOT/COLD PACKS APPL 78572 [place] [facility] MODALITY 5 [facility] 1/> AREAS INC INC ULTRASOUN D EA 15 MIN APPL 00995 [place] [facility] MODALITY 5 [facility] 1/> AREAS INC INC ELEC STIMJ UNATTENDE D GONADOTRO 87561 [facility] PIN 5 N N CHORIONIC COMMUNTIY COMMUNTIY HOSPITA HOSPITA QUALITATI VE BLOOD 16024 [facility] COUNT 5 N N COMPLETE COMMUNTIY COMMUNTIY AUTOMATED HOSPITA HOSPITA DUP-SCAN 31188 [place] HARLEEN XTR VEINS 5 MEDICAL ADRIANNA COMPLETE IMAGING ASS BILATERAL STUDY COMPREHEN 22178 [facility] SIVE 5 N N METABOLIC COMMUNTIY COMMUNTIY PANEL HOSPITA HOSPITA COLLECTIO 87214 [facility] N VENOUS 5 N N BLOOD COMMUNTIY COMMUNTIY VENIPUNCT HOSPITA HOSPITA URE APPL 37254 [place] [facility] MODALITY 5 [facility] 1/> AREAS INC INC ULTRASOUN D EA 15 MIN THERAPEUT 23509 [place] [facility] IC PX 1/> 5 [facility] AREAS INC INC EACH 15 MIN EXERCISES APPLICATI 67595 [place] [facility] ON 5 [facility] MODALITY INC INC 1/> AREAS HOT/COLD PACKS APPL 51623 [place] [facility] MODALITY 5 [facility] 1/> AREAS INC INC ELEC STIMJ UNATTENDE D CUL BACT 17197 [place] [facility] XCPT 5 [facility] URINE INC INC BLOOD/STO OL AEROBIC ISOL SUSCEPTIB 35693 [place] [facility] LTY STDY 5 [facility] ANTIMICRB INC INC IAL MICRO/AGA R DILUTJ APPL 37917 [place] [facility] MODALITY 5 [facility] 1/> AREAS INC INC ULTRASOUN D EA 15 MIN THERAPEUT 52865 [place] [facility] IC PX 1/> 5 [facility] AREAS INC INC EACH 15 MIN EXERCISES APPLICATI 69415 [place] [facility] ON 5 [facility] MODALITY INC INC 1/> AREAS HOT/COLD PACKS APPL 16348 [place] [facility] MODALITY 5 [facility] 1/> AREAS INC INC ELEC STIMJ UNATTENDE D APPL 15866 [place] [facility] MODALITY 5 [facility] 1/> AREAS INC INC ELEC STIMJ UNATTENDE D APPLICATI 50904 [place] [facility] ON 5 [facility] MODALITY INC INC 1/> AREAS HOT/COLD PACKS APPL 31650 [place] [facility] MODALITY 5 [facility] 1/> AREAS INC INC IONTOPHOR ESIS EA 15 MIN APPL 65516 [place] [facility] MODALITY 5 [facility] 1/> AREAS INC INC ULTRASOUN D EA 15 MIN APPL 98611 [place] [facility] MODALITY 5 [facility] 1/> AREAS INC INC ULTRASOUN D EA 15 MIN THERAPEUT 94938 [place] [facility] IC PX 1/> 5 [facility] AREAS INC INC EACH 15 MIN EXERCISES APPL 00141 [place] MODALITY 5 [facility] 1/> AREAS INC INC IONTOPHOR ESIS EA 15 MIN APPLICATI 45555 [place] [facility] ON 5 [facility] MODALITY INC INC 1/> AREAS HOT/COLD PACKS APPL 21241 [place] [facility] MODALITY 5 [facility] 1/> AREAS INC INC ELEC STIMJ UNATTENDE D THYROID 81641 [facility] HORM 5 N N UPTK/THYR COMMUNTIY COMMUNTIY OID HOSPITA HOS[place] [address] [facility] THYROXINE 5 N N TOTAL COMMUNTIY COMMUNTIY HOSPITA HOSPITA RADIOLOGI 25656 [facility] C EXAM 5 N N CHEST 2 COMMUNTIY COMMUNTIY VIEWS HOSPITA HOSPITA FRONTAL&[place] [address] [facility] THYROID 5 N N STIMULATI COMMUNTIY COMMUNTIY NG HOSPITA HOSPITA HORMONE TSH CUL 05888 [facility] PRSMPTV 5 N N PTHGNC COMMUNTIY COMMUNTIY ORGANISM HOSPITA HOSPITA SCRN W/COLONY ESTIMJ BLOOD 81719 [facility] COUNT 5 N N COMPLETE COMMUNTIY COMMUNTIY AUTOMATED HOSPITA HOSPITA COLLECTIO 85567 [facility] N VENOUS 5 N N BLOOD COMMUNTIY COMMUNTIY VENIPUNCT HOSPITA HOSPITA URE LIPID 05992 [facility] PANEL 5 N N COMMUNTIY COMMUNTIY HOSPITA HOSPITA COMPREHEN 22343 [facility] SIVE 5 N N METABOLIC COMMUNTIY COMMUNTIY PANEL HOSPITA HOSPITA ECG 17940 [facility] ROUTINE 5 N N ECG COMMUNTIY COMMUNTIY W/LEAST HOSPITA HOSPITA 12 LDS TRCG ONLY W/O I&R PHYSICAL 35864 [place] [facility] THERAPY 5 [facility] EVALUATIO INC INC N FIBRIN 30023 [place] [facility] DGRADJ 5 [facility] PRODUCTS INC INC D-DIMER QUAL/SEMI GILBERT COLLECTIO 74766 [place] Gutierrez VENOUS 5 [facility] BLOOD INC INC VENIPUNCT URE URNLS DIP 07024 [place] [facility] 5 [facility] STICK/TAB INC INC LET REAGENT AUTO MICROSCOP Y ECG 94735 [place] CHAVEZ JR ROUTINE 5 [facility] W/LEAST P 12 LDS I&R ONLY COMPREHEN 15325 [place] [facility] SIVE 5 [facility] METABOLIC INC INC PANEL ECG 44962 [place] [facility] ROUTINE 5 [facility] ECG INC INC W/LEAST 12 LDS TRCG ONLY W/O I&R BLOOD 78637 [place] [facility] COUNT 5 [facility] COMPLETE INC INC AUTO&AUTO DIFRNTL WBC RADIOLOGI 99135 [place] [facility] C EXAM 5 [facility] CHEST 2 INC INC VIEWS FRONTAL&[place] [address] [place] [facility] TROPONIN 5 [facility] [place] [address] [place] [facility] TROPONIN 5 [facility] QUANTITAT INC INC SABIHA RADIOLOGI 34570 [place] [facility] C EXAM 5 [facility] CHEST 2 INC INC VIEWS FRONTAL&L ATERAL BLOOD 00048 [place] [facility] COUNT 5 [facility] COMPLETE INC INC AUTO&AUTO DIFRNTL WBC FIBRIN 47513 [place] [facility] DGRADJ 5 [facility] PRODUCTS INC INC D-DIMER QUAL/SEMI GILBERT LOCM Q9967 [place] [facility] 300-399 5 [facility] MG/ML INC [place] [address] [place] [facility] ANGIOGRAP 5 [facility] HY CHEST INC INC W/CONTRAS T/NONCONT RAST ECG 73053 [place] [facility] ROUTINE 5 [facility] ECG INC INC W/LEAST 12 LDS TRCG ONLY W/O I&R COMPREHEN 73703 [place] [facility] SIVE 5 [facility] METABOLIC INC INC PANEL ECG 04654 [place] MATUTE ROUTINE [address] [facility] W/LEAST P 12 LDS I&R ONLY RADEX 57157 [place] HARLEEN SHOULDER 4 MEDICAL COMPLETE IMAGING MINIMUM 2 ASS VIEWS LEVEL III 52974 SCAL[facility] LEI SCALF LEI SURG 4 PATHOLOGY GROSS&BRYCE ROSCOPIC EXAM DESTRUCTI 05442 ATKINS ATKINS ON BENIGN 4 TRA TRA LESIONS UP TO 14 REPAIR 31213 ATKINS ATKINS COMPLEX 4 TRA TRA SCALP/ARM /LEG 1.1-[address] [place] [address] [facility] HEAD/BRAI 4 MEDICAL ADRIANNA N W/O IMAGING CONTRAST ASS MATERIAL THERAPEUT 78574 [place] [facility] IC 4 [facility] HOSP INJECTION INC INC IV PUSH EACH NEW DRUG SPECIAL 87958 [facility], P[facility]LES[facility] STAIN 4 [facility] GROUP 1 MICROORGA NISMS I&R SPCL STN 97831 [facility], PICKLESIM 2 I&R 4 [facility] EXCPT MICROORG/ ENZYME/IM CYT ANES 56815 [facility] GI 4 ANESTHESI JOSE ANGEL ENDOSCOPY A [place] [address] [facility], PICKLESIM SURG 4 [facility] PATHOLOGY GROSS&BRYCE ROSCOPIC EXAM EGD 08256 [facility] TRANSORAL 4 N N BIOPSY [facility] S[facility]MU HOSPITA HOSPITA LTIPLE SPMTRY 14142 [place] [facility] W/VC 4 [facility] HOSP EXPIRATOR INC INC Y ABHI W/WO MXML VOL VNTJ LEVEL III 06920 SCALF LEI SCALF LEI SURG 4 PATHOLOGY GROSS&BRYCE ROSCOPIC EXAM REPAIR 56464 ADVANCED SCALF LEI COMPLEX 4 DERMATOLO SCALP/ARM GY /LEG 1.1-2.5 CM EXC B9 90496 ADVANCED SCALF LEI LESION 4 DERMATOLO MRGN XCP GY SK TG S/N/H/F/G 1.1-2.0CM RADIOLOGI 39126 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 FIBRQ TAGS ANY AREA UPW/15 CV STRS 05170 [place] TST 4 [facility] XERS&/OR INC INC RX CONT ECG TRCG ONLY CV STRS 72304 [place] MATUTE TST 4 [facility] XERS&/OR HOSPITAL RX CONT P ECG I&R ONLY ECHO 13508 [place] TTHRC R-T 4 [facility] 2D INC INC W/WOM-MOD E COMPL SPEC&COLR D RADIOLOGI 37080 SEJAL GILMAN C EXAM 4 MEDICAL CARMEN CHEST 2 IMAGING VIEWS ASS FRONTAL&L ATERAL ECG 35802 [place] [facility] ROUTINE 4 [facility] ECG INC INC W/LEAST 12 LDS TRCG ONLY W/O I&R BASIC 08423 [place] [facility] METABOLIC 4 [facility] PANEL INC INC CALCIUM TOTAL ECG 91042 SCOTT CHAVEZ JR ROUTINE 4 DWI DWI ECG W/LEAST 12 LDS I&[place] [address] [place] [facility] TROPONIN 4 [facility] QUANTITAT INC INC SABIHA BLOOD 28064 [place] [facility] COUNT 4 [facility] COMPLETE INC INC AUTO&AUTO DIFRNTL WBC RADIOLOGI 78125 HARLEEN HARLEEN C 4 ADRIANNA ADRIANNA EXAMINATI ON CHEST SINGLE VIEW FRONTAL BLOOD 27646 [place] [facility] COUNT 4 [facility] COMPLETE INC INC AUTO&[place] [address] [place] [facility] TROPONIN 4 [facility] QUANTITAT INC INC SABIHA FIBRIN 63840 [place] [facility] DGRADJ 4 [facility] PRODUCTS INC INC D-DIMER QUAL/SEMI GILBERT ECG 54672 ANKUR PASCUAL ROUTINE 4 BRYCE BRYCE ECG W/LEAST 12 LDS I&R ONLY CREATINE 16533 [place] [facility] KINASE MB 4 [facility] FRACTION INC INC ONLY CREATINE 19027 [place] [facility] KINASE 4 [facility] TOTAL INC INC COMPREHEN 62896 [place] [facility] SIVE 4 [facility] METABOLIC INC INC PANEL ECG 97456 [place] [facility] ROUTINE 4 [facility] ECG INC INC W/LEAST 12 LDS TRCG ONLY W/O I&R RADIOLOGI 26561 BEINEKE D BEINEKE D C EXAM 4 CHEST 2 VIEWS FRONTAL&L ATERAL HEMOGLOBI 38283 COMBINED COMBINED N 4 PHYSICIAN PHYSICIAN GLYCOSYLA S LA S LA LANEY A1C LIPID 46288 COMBINED COMBINED PANEL 4 PHYSICIAN PHYSICIAN S LA S LA 25 64979 COMBINED COMBINED HYDROXY 4 PHYSICIAN PHYSICIAN INCLUDES S LA S LA FRACTIONS IF PERFORMED CYANOCOBA 99494 COMBINED COMBINED LYUBOV 4 PHYSICIAN PHYSICIAN VITAMIN S LA S LA B-12 GENERAL 96661 COMBINED COMBINED HEALTH 4 PHYSICIAN PHYSICIAN PANEL S LA S LA SEDIMENTA 63351 COMBINED COMBINED TION RATE 4 PHYSICIAN PHYSICIAN [place] [address] COMBINED COMBINED FREE 4 PHYSICIAN PHYSICIAN THYROXINE S LA S LA COMPUTER- 02500 [place] AIDED 4 MEDICAL ADRIANNA DETECTION IMAGING ASS SCREENING MAMMOGRAP HY SCREENING G0202 [place] HARLEEN 4 MEDICAL ADRIANNA MAMMOGRAP IMAGING HY WILBERT ASS INCL CAD WHEN PERFORMD LIPID 90247 [facility] QUEST PANEL 4 DIAGNOSTI DIAGNOSTI CS CS IIV3 20698 DHS/CO [place] VACCINE 9 [facility] VIRUS 0.5 BANK ACCT ML DOSAGE IM USE RADEX 72614 [place] [facility] SPINE 9 [facility] LUMBOSACR INC INC AL MINIMUM 4 VIEWS RADEX HIP 65326 [place] SUMA 9 MEDICAL MAX P UNILATERA IMAGING L ASSOCIATE COMPLETE S MINIMUM 2 VIEWS RADEX 58303 KIMBERLEE SANCHEZEY, SPINE 9 [facility] LUMBSCRL CORPORATI COMPL ON W/BENDING VIEWS MIN 6 RADIOLOGI 97914 [place] [facility] C 9 [facility] EXAMINATI INC INC ON PELVIS 1/2 VIEWS Encounters Encounter Start End Date Code Location Performer Type Date OFFICE 90059 [facility] 7 7 [place] T VISIT INTERNAL 15 MED MINUTES EMERGENCY 54510 [facility] SANCHEZEY DEPT 7 7 PHYSICIAN VISIT S, [facility] HIGH SEVERITY& THREAT [facility] [place] [facility] OUTPATIEN INC T OFFICE 47071 [place] [facility] 7 7 [facility] T VISIT 5 INC MINUTES [facility] [place] [facility] OUTPATIEN INC T EMERGENCY 62053 [place] 7 7 [facility] DEPARTMEN INC T VISIT MODERATE SEVERITY EMERGENCY 62675 [facility] SANDHU DEPT 7 7 PHYSICIAN VISIT S, [facility] HIGH SEVERITY& THREAT [facility] [place] [facility] 7 7 [facility] [place]PATIEN [place] T OFFICE 42697 [facility] A[facility]LAN [facility]PATI[facility] 7 7 [place] T VISIT INTERNAL 15 MED MINUTES H[facility] [place] - 7 7 [facility] [place] [place] T OFFICE 01917 [place] CARTAGENAONE OUTPATIEN 7 7 [facility] T VISIT HOSPITAL 10 P MINUTES OFFICE 74739 [facility] FUNES OUTPATIEN 7 7 HEALTH T VISIT MEDICAL 25 GROUP MINUTES [facility] [place] [facility] OUTPATIEN INC T OFFICE 82003 YVETTE AVINA OUTPATIEN 7 7 MD RHIANNON, T VISIT PSC 15 MINUTES OFFICE 63995 [place] OUTPATIEN 7 7 [facility] T VISIT INC 10 MINUTES OFFICE 20999 [place] OUT[facility]IEN 7 7 [facility] T VISIT 5 INC MINUTES [facility] [place] [facility] OUTPATIEN INC T OFFICE 16314 [place] WEISS JR OUTPATIEN 7 7 [facility] 10 P MINUTES [facility] [place] [facility] 7 7 [facility] OUTPATIEN INC T EMERGENCY 57337 SMILEY PASCUAL DEPT 7 7 PHYSICIAN VISIT S, [facility] HIGH SEVERITY& THREAT FUNJ EMERGENCY 16316 [place] 7 7 [facility] DEPARTMEN INC T VISIT LOW/MODER SEVERITY OFFICE 22033 [place] CELI OUTPATIEN 7 7 [facility] 10 P MINUTES [facility] [place] [facility] OUTPATIEN INC T EMERGENCY 42559 [place] 7 7 [facility] DEPARTMEN [facility] T VISIT HIGH/URGE NT SEVERITY [facility] [place] [facility] 7 7 [facility] OUTPATIEN INC [facility] [place] [facility] 7 7 [facility] OUTPATIEN INC T PERIODIC 56471 [facility] HUMPHREY PREVENTIV 7 7 PHYSICIAN E MED EST S GROUP PATIENT 40-64YRS OFFICE 67512 LUIS MATUTE OUTPATINEENA 7 7 [place] T VISIT INTERNAL 15 MED MINUTES [facility] [place] [facility] 7 7 [facility] OUTPATIEN INC T OFFICE 39650 [facility] MAEGAN OUTPATIEN 7 7 PHYSICIAN T VISIT S GROUP 15 MINUTES EMERGENCY 73577 [facility] JAQUEZ 7 7 PHYSICIAN DEPARTMEN S, [facility] T VISIT HIGH/URGE NT SEVERITY [facility] [place] [facility] 7 7 [facility] OUTPATIEN INC T OFFICE 94144 [place] CELI OUTPATIEN 7 7 [facility] 10 P MINUTES OFFICE 21447 YVETTE CHAND 7 7 MD RHIANNON, T VISIT [facility] 10 MINUTES [facility] [place] [facility] 7 [facility] OUTPATIEN INC T [facility] [place] [facility] 7 [facility] OUTPATIEN INC T OFFICE 05128 [facility] KIMBERLY OUTPATIEN 7 7 PHYSICIAN T VISIT S GROUP 25 MINUTES [facility] [place] [facility] OUTPATIEN INC T [facility] [place] [facility] 7 7 [facility] OUTPATIEN INC T OFFICE 41147 [facility] ISSA OUTPATIEN 7 7 PHYSICIAN T VISIT S GROUP 10 MINUTES OFFICE 82457 [place] OUTPATIEN 7 7 [facility] T VISIT 5 INC MINUTES [facility] [place] [facility] 7 [facility] OUTPATIEN INC T OFFICE 02384 YVETTE MAXIMO OUTPATIEN 7 7 MD RHIANNON, T NEW 30 PSC MINUTES EMERGENCY 16961 [facility] SOTOMAYOR 7 7 PHYSICIAN JR [facility] S, [facility] T VISIT HIGH/URGE NT SEVERITY [facility] [place] [facility] 7 7 [facility] OUTPATIEN INC T [facility] [place] [facility] 7 7 [facility] OUTPATIEN INC T OFFICE 38685 [facility] KIMBERLY OUTPATIEN 7 7 PHYSICIAN T VISIT S GROUP 25 MINUTES OFFICE 99432 [place] [facility] OUTPATIEN 7 7 [place] T VISIT INTERNAL 15 MED MINUTES [facility] [place] [facility] 7 [facility] OUTPATIEN INC T OFFICE 85253 [facility] KIMBERLY OUTPATIEN 7 7 PHYSICIAN T VISIT S GROUP 25 MINUTES OFFICE 56625 [facility] ADAMS OUTPATIEN 7 7 [place] T VISIT ORTHOPAED 15 IC MINUTES EMERGENCY 48699 [place] 7 7 [facility] DEPARTMEN INC T VISIT HIGH/URGE NT SEVERITY [facility] [place] [facility] 7 7 [facility] OUTPATIEN INC T EMERGENCY 68756 [facility] RENUSCH DEPT 7 7 PHYSICIAN VISIT S, [facility] HIGH SEVERITY& THREAT FUN OFFICE 80734 [facility] GIOVANI OUTPATIEN 7 7 [place] T VISIT INTERNAL 25 MED MINUTES OFFICE 98084 [place] [facility]EN 7 7 [facility] T VISIT 5 INC MINUTES [facility] [place] [facility] 7 7 [facility] OUTPATIEN [facility] T OFFICE 88324 ANGELITO DUARTE OUTPATIEN 7 7 [place] T NEW 30 ORTHOPAED MINUTES EMERGENCY 41594 [place] 7 7 [facility] DEPARTMEN [facility] T VISIT LOW/MODER SEVERITY [facility] [place] [facility] 7 7 [facility] OUTPATIEN REPLACED BY [facility] EMERGENCY 93541 [facility] JIMENEZ DEPT 7 7 PHYSICIAN U VISIT S, [facility] HIGH SEVERITY& THREAT [facility] [place] [facility] 7 7 [facility] OUTPATIEN REPLACED BY [facility] [place] [facility] OUTPATIEN REPLACED BY [facility] EMERGENCY 54350 [place] 7 7 [facility] DEPARTMEN [facility] T VISIT MODERATE SEVERITY [facility] [place] [facility] 7 7 [facility] OUTPATIEN REPLACED BY [facility] EMERGENCY 58005 [place] 7 7 [facility] T VISIT LOW/MODER SEVERITY EMERGENCY 91052 [facility] PASCUAL 7 7 PHYSICIAN DEPARTMEN S, [facility] T VISIT HIGH/URGE NT SEVERITY OFFICE 10657 [place] [facility] 7 7 [facility] T VISIT 5 INC MINUTES [facility] [place] [facility] 7 7 [facility] OUTPATIEN [facility] T OFFICE 72718 [facility] [facility] OUTPATIEN 7 7 [place] T VISIT INTERNAL 15 MED MINUTES [facility] [place] - 7 7 [facility] EMERGENCY 72253 [place] 7 7 [facility]PARTMEN [facility] T VISIT LOW/MODER SEVERITY EMERGENCY 11295 [facility] 7 7 [facility] EMERGENC[facility] T VISIT PHYS MODERATE SEVERITY OFFICE 26054 [place] [facility] 7 7 [facility] T VISIT 5 INC MINUTES [facility] [place] [facility] OUTPATIEN INC T OFFICE 27108 [facility] [place] OUT[facility] 7 7 [facility] T VISIT INTERNAL 15 MED MINUTES EMERGENCY 00546 [facility] MEDEROS 7 7 PHYSICIAN [facility] S, [facility] T VISIT MODERATE SEVERITY [facility] [place] [facility] 7 [facility] OUTPATIEN INC T OFFICE 54809 [place] [facility] 7 7 [facility] T VISIT 5 INC MINUTES [facility] [place] [facility] OUTPATIEN INC T OFFICE 07654 [place] [facility] 7 7 [facility] T VISIT 5 INC MINUTES [facility] [place] [facility] 7 7 [facility] OUTPATIEN INC T OFFICE 95350 [place] OUT[facility] 7 7 [facility] T NEW 10 INC MINUTES OFFICE 16801 [facility] [place] OUT[facility]IEN 7 7 [place] T VISIT INTERNAL 25 MED MINUTES [facility] [place] - 7 7 [facility] OUTPATIEN [place] T OFFICE 38729 JASSO JASSO OUTPATIEN 7 7 T VISIT 25 MINUTES [facility] [place] [facility] 7 7 [facility] OUTPATIEN INC T EMERGENCY 30183 [place] 7 7 [facility] DEPARTMEN INC T VISIT LIMITED/M INOR PROB [facility] [place] [facility] 7 7 [facility] OUTPATIEN INC T EMERGENCY 48176 [place] 7 7 [facility] DEPARTMEN INC T VISIT LOW/MODER SEVERITY EMERGENCY 76596 [place] [facility] V[facility] [place] [facility] 7 7 [facility] OUTPATIEN [facility] T EMERGENCY 57817 [place] PASCUAL 7 7 [facility]IAN [facility], [facility] T VISIT MODERATE SEVERITY [facility] 7 [facility] 7 [facility] [place] [facility] 6 [facility] OUTPATIEN [facility] T EMERGENCY 57324 SMI[place] SOTOMAYOR, [address] [facility] S, [facility] T VISIT HIGH/URGE NT SEVERITY OFFICE 84885 [facility] T VISIT INTERNAL 15 MED MINUTES [facility] [place] [facility] 6 6 [facility] OUTPATIEN [facility] T EMERGENCY 40089 [facility] JAQUEZ 6 6 [facility]IAN [facility] T VISIT HIGH/URGE NT SEVERITY EMERGENCY 38499 [place] 6 6 [facility] T VISIT MODERATE SEVERITY EMERGENCY 59160 [facility] ARMIJO 6 6 [facility] T VISIT MODERATE SEVERITY EMERGENCY 45802 [place] 6 6 [facility] T VISIT LOW/MODER SEVERITY [facility] [place] [facility] 6 6 [facility] OUTPATIEN [facility] T EMERGENCY 35716 S[place] PASCUAL 6 6 PHYSICIAN [facility] S [facility] T VISIT MODERATE SEVERITY OFFICE 84102 [facility] SC[facility]RES OUTPATIEN 6 6 ANG ANG T VISIT 10 MINUTES OFFICE 59578 [place] [facility] OUTPATI[facility] 6 6 [facility] OFELIA T VISIT INTERNAL 15 MED MINUTES OFFICE 47496 [facility] S[facility]HE[facility] MICHELLE OUTPATIEN 6 6 T VISIT BARIATRIC 25 SURGICAL MINUTES EMERGENCY 72934 [place] 6 6 [facility] DEPART[facility] INC T VISIT LOW/MODER SEVERITY [facility] [place] [facility] T EMERGENCY 43909 [facility] SOTOMAYOR, 6 6 [facility] HIGH/URGE NT SEVERITY EMERGENCY 60842 [facility] PASCUAL 6 6 [facility] VISIT MODERATE SEVERITY OFFICE 99382 [facility] FALLUJI OUTPATIEN 6 6 [facility] T VISIT MEDICAL 15 G MINUTES [facility] [place] [facility] T OFFICE 24051 [facility] HUMPHREY OUTPATIEN 6 6 PHYSICIAN MEAGAN T VISIT S GROUP 15 MINUTES OFFICE 78000 [facility] ISSA OUTPATIEN 6 6 PHYSICIAN JARON T VISIT S GROUP 10 MINUTES [facility] [place] [facility] [place] [facility] T EMERGENCY 79451 [place] 6 6 [facility] DEPART[facility] INC T VISIT MODERATE SEVERITY [facility] [place] [facility] T OFFICE 43424 [facility] ISSA OUTPATIEN 6 6 PHYSICIAN JARON T VISIT S GROUP 10 MINUTES OFFICE 72108 DOMINICK ANDRES OUTPATIEN 6 6 HEALTH IV HEN T VISIT MEDICAL 15 GROUP MINUTES OFFICE 66439 [place] [facility] 6 6 [facility] VISIT [facility] 10 P MINUTES OFFICE 89440 PERLA RODRIGUEZ TRI OUTPATIEN 6 6 GROUND T VISIT FAMILY 25 CLINI MINUTES OFFICE 50722 [facility]ISIT 5 HLTH DEPT HLTH DEPT MINUTES [facility] EMERGENCY 58186 S[place] ARMIJO 6 6 PHYSICIAN SILVIO DALE T VISIT HIGH/URGE NT SEVERITY EMERGENCY 42010 [place] 6 6 [facility] T VISIT LOW/MODER SEVERITY [facility] [place] [facility] T [facility] [place] [facility] T [facility]ICE 67233 [facility] T VISIT [facility] DEPT [facility] DEPT 15 JAZZ JAZZ MINUTES OFFICE 67936 [facility] KIMBERLY OUTPATIEN 6 6 PHYSICIAN JULIUS T VISIT S GROUP 25 MINUTES OFFICE 87397 [facility] T VISIT BARIATRIC 25 SURGICAL MINUTES EMERGENCY 14863 S[place] PASCUAL 6 6 PHYSICIAN BRYCE Reddy [facility] T VISIT MODERATE SEVERITY OFFICE 89538 [facility] KIM[facility] OUTPATIEN 6 6 PHYSICIAN MAT Berenice NEW 45 S GROUP MINUTES [facility] [place] [facility] 6 6 [facility] T OFFICE 79048 ALLERGY ROSENTHAL MAR OUTPATIEN 6 6 PARTNERS T VISIT OF [place] 40 CO MINUTES EMERGENCY 89530 SMILEY JIMENEZ 6 6 PHYSICIAN Taylor Reddy [facility] T VISIT HIGH/URGE NT SEVERITY EMERGENCY 20771 [place] 6 6 [facility] T VISIT LOW/MODER SEVERITY [facility] [place] [facility] 6 [facility] OUTPATIEN INC T EMERGENCY 69411 SMILEY PASCUAL 6 6 PHYSICIAN BRYCE Reddy [facility] T VISIT MODERATE SEVERITY OFFICE 08785 [facility] OUTPATIEN 6 6 N T VISIT NEUROLOGY 10 MINUTES [facility] [place] [facility] 6 6 [facility] OUT[facility]EN [facility] T EMERGENCY 72256 SMILEY SOTOMAYOR, 6 6 PHYSICIAN JR MANUELITO FUENTESMEN S, PLLC T VISIT MODERATE SEVERITY [facility] [place] - 6 6 [facility] OUTPATIEN [facility] T EMERGENCY 52881 SMILEY PASCUAL DEPT 6 6 PHYSICIAN BRYCE VISIT S, PLLC HIGH SEVERITY& THREAT FUNCJ OFFICE 98449 [place] [facility] 6 [facility] 10 P MINUTES [facility]OSP[facility] [place] [facility] 6 6 [facility] OUTPATIEN [facility] T EMERGENCY 90351 [place] 6 6 [facility] DEPARTMEN [facility] T VISIT MODERATE SEVERITY EMERGENCY 92148 SMILEY SOTOMAYOR 6 6 PHYSICIAN JR [facility] T VISIT HIGH/URGE NT SEVERITY OFFICE 32514 [place] WEISS JR OUTPATI 6 6 [facility] VISIT HOSPITAL 10 P MINUTES OFFICE 36661 [facility] MAR CONSULT[facility] 6 6 [facility] [place] NEW/ESTAB CO PATIENT 60 MIN EMERGENCY 51678 SMILEY PASCUAL DEPT 6 6 PHYSICIAN BRYCE VISIT S, PLLC HIGH SEVERITY& THREAT FUNCJ EMERGENCY 86386 SMILEY PASCUAL 6 6 PHYSICIAN BRYCE DEPARTMEN S, PLLC T VISIT MODERATE SEVERITY EMERGENCY 16465 SMILEY PASCUAL DEPT 6 6 PHYSICIAN BRYCE VISIT S, PLLC HIGH SEVERITY& THREAT FUNCJ EMERGENCY 94979 SMILEY HUNT 6 6 PHYSICIAN DEPARTMEN S, PLLC T VISIT LOW/MODER SEVERITY OFFICE 97668 [facility] OUTPATIEN 6 6 PHYSICIAN T VISIT S GROUP 25 MINUTES [facility]OSP[facility] [place] - 6 6 [facility] OUTPATIEN INC T EMERGENCY 45288 SMILEY PASCUAL 6 6 PHYSICIAN BRYCE DEPARTMEN S, PLLC T VISIT MODERATE SEVERITY EMERGENCY 94008 [place] 6 6 [facility] INC T VISIT LOW/MODER SEVERITY [facility] [place] - 6 6 [facility]PAT[facility] - 6 6 N OUTPATIEN COMMUNTIY T HOSPITA OFFICE 07266 [facility] OUTPATIEN 6 6 PHYSICIAN JARON T NEW 20 S GROUP MINUTES EMERGENCY 41819 [facility] 6 6 PHYSICIAN CASANDRA VISIT S, PLLC HIGH SEVERITY& THREAT FUN EMERGENCY 86501 SMILEY PASCUAL 6 6 PHYSICIAN BRYCE DEPARTMEN S, PLLC T VISIT HIGH/URGE NT SEVERITY [facility] - 6 6 N OUTPATIEN COMMUNTIY HOSPITA EMERGENCY 31821 SMILEY PASCUAL DEPT 6 6 PHYSICIAN BRYCE VISIT S, PLLC HIGH SEVERITY& THREAT [facility] OFFICE 34855 [facility] 6 6 T VISIT BARIATRIC 25 SURGICAL MINUTES EMERGENCY 46169 [facility] 6 6 EMERGENCY HOW DEPARTMEN PHYS PSC T VISIT MODERATE SEVERITY HOSPITAL [place] - 6 6 HEALTH OUTPATIEN [facility] EMERGENCY 15713 [place] 6 6 [facility] DEPARTMEN INC T VISIT LOW/MODER SEVERITY EMERGENCY 63592 SMILEY BAGLEY DEPT 6 6 PHYSICIAN FOR VISIT S, PLLC HIGH SEVERITY& THREAT [facility] [place] - 6 6 [facility] OUT[facility] [place] [facility] 6 6 [facility] OUTPAT[facility]EN INC T EMERGENCY 49735 SMILEY PASCUAL 6 6 PHYSICIAN BRYCE DEPARTMEN S, PLLC T VISIT HIGH/URGE NT SEVERITY EMERGENCY 97656 SMILEY SUGGS [facility] 6 6 PHYSICIAN DEPARTMEN S, PLLC T VISIT HIGH/URGE NT SEVERITY HOSPITAL [facility] - 6 6 N [facility]PATIEN [facility] T HOSPITA EMERGENCY 64515 [facility] 6 6 [place]AL[place] JOSE ANGEL DEPARTMEN EMERGENCY T VISIT PHYS HIGH/URGE NT SEVERITY EMERGENCY 10837 [place] DEPT 6 6 [facility] VISIT INC HIGH SEVERITY& THREAT [facility]J [facility] [place] - 6 6 [facility] OUTPATIEN INC T OFFICE 54091 [facility] CONSULTAT 6 6 N ION NEUROLOGY NEW/ESTAB PATIENT 60 MIN OFFICE 06863 [facility] OUTPATIEN 6 6 MATTI MATTI T NEW 30 MINUTES OFFICE 29882 SCALF LEI SCALF LEI OUTPATIEN 6 6 T VISIT 25 MINUTES EMERGENCY 17601 SMILEY SANCHEZEY DEPT 6 6 PHYSICIAN BRYCE VISIT S, PLL HIGH SEVERITY& THREAT FUNCJ OFFICE 03218 [place] ARSLAN OUTPATIEN 6 6 [facility] T VISIT INTERNAL 15 MED MINUTES HOSPITAL [facility] - 6 6 HEALTH OUTPATIEN [facility] [place] - 6 6 [facility] OUTPATIEN INC T EMERGENCY 56419 SMILEY SANCHEZEY DEPT 6 6 PHYSICIAN BRYCE VISIT S, PLLC HIGH SEVERITY& THREAT FUNCJ OFFICE 78423 WORSH[facility] OUTPATIEN 6 6 HEALTH KADIE T VISIT MEDICAL 15 GROUP MINUTES OFFICE 59563 [facility] SANCHEZ MICHELLE OUTPATIEN 6 6 T VISIT BARIATRIC 25 SURGICAL MINUTES [facility]OSP[facility] [place] - 6 6 [facility] OUTPATIEN INC T OFFICE 71516 [place] A[facility] OUTPATIEN 6 6 [facility] T VISIT INTERNAL 15 MED MINUTES INITIAL 44363 [facility] PREVENTIV 6 6 PHYSICIAN E S GROUP MEDICINE NEW PATIENT 40-64YRS OFFICE 09618 WORSHIPBerenice [place] OUTPATIEN 6 6 PRIMARY KADIE T VISIT CARE OF 15 ABISAI [facility] [place] - 6 6 [facility] OUTPATIEN INC T OFFICE 08053 [place] [facility] OUTPAT[facility]EN 6 6 [place] T VISIT INTERNAL 15 MED [facility] [place] - 6 6 [facility] OUTPATIEN INC T OFFICE 78547 WENDY SANCHEZ MICHELLE OUTPATIEN 5 5 T VISIT BARIATRIC 25 SURGICAL MINUTES OFFICE 59479 ATKINS ATKINS OUTPATIEN 5 5 TRA TRA T VISIT 25 MINUTES PERIODIC 35003 [facility] DEPT HLTH DEPT PATIENT JAZZ JAZZ 40-64YRS OFFICE 90793 WENDY SANCHEZ MICHELLE OUTPATIEN 5 5 T VISIT BARIATRIC 15 SURGICAL [facility] [place] - 5 5 [facility] OUTPATIEN INC T OFFICE 64683 [place] ARSLAN OUTPATIEN 5 5 [facility] T NEW 30 INTERNAL MINUTES [facility] [place] - 5 5 [facility] OUTPATIEN INC T OFFICE 53772 [facility] PETTEY OUTPATIEN 5 5 PHYSICIAN JAM T VISIT S GROUP 15 MINUTES OFFICE 06147 GASTROENT CASE JUS OUTPATIEN 5 5 EROLOGY T VISIT AND 15 HEPATOL MINUTES OFFICE 55047 WORSHIPBerenice [place] OUTPATIEN 5 5 HEALTH KADIE T VISIT MEDICAL 10 GROUP [facility] [place] - 5 5 N OUTPATIEN COMMUNTIY T HOSPITA EMERGENCY 12260 SMILEY HUTCHISON 5 5 PHYSICIAN KENNY GARCIA S, PLLC T VISIT HIGH/URGE NT [facility] [place] - 5 5 [facility] OUTPATIEN INC [facility] [place] - 5 5 N OUTPATIEN COMMUNTIY T HOSPITA OFFICE 87773 GASTROENT CASE JUS OUTPATIEN 5 5 EROLOGY T NEW 45 AND MINUTES HEPATOL [facility] [place] - 5 5 [facility] OUTPATIEN INC EMERGENCY 54384 [place] SOTOMAYOR, 5 5 [facility] T VISIT P LOW/MODER SEVERITY [facility] [place] - 5 5 [facility] OUTPATIEN INC OFFICE 42518 DANIEL SANCHEZ OUTPATIEN 5 5 HUBER HUBER T VISIT 15 MINUTES [facility]OS[facility] [place] - 5 5 [facility] OUTPATIEN INC EMERGENCY 57717 [place] SOTOMAYOR, 5 5 [facility] T VISIT P MODERATE SEVERITY [facility] [place] - 5 5 N OUTPATIEN COMMUNTIY [facility] 5 5 N OUTPATIEN COMMUNTIY [facility] [place] [facility] OUT[facility] INC T OFFICE 03417 WENDY MARTINEZ OUTPATIEN 5 5 T VISIT BARIATRIC 40 SURGICAL MINUTES OFFICE 45805 DANIEL SANCHEZ OUTPATIEN 5 5 HUBER HUBER T VISIT 15 MINUTES EMERGENCY 32948 [place] PASCUAL 5 5 [facility] T VISIT P LOW/MODER SEVERITY [facility] [place] [facility] 5 5 [facility] OUTPATIEN [facility] [place] - 5 5 [facility] [place] - 5 5 N OUTPATIEN COMMUNTIY [facility] [place] [facility] 5 5 [facility] OUTPATIEN INC T OFFICE 94718 [place] ALATORRE OUTPATIEN 5 5 [facility] 20 HOSPITAL MINUTES P [facility] [place] [facility] 5 5 [facility] OUTPATIEN INC T OFFICE 45625 MELANIE NOGUEIRA OUTPATIEN 5 5 MEDICAL JAM T VISIT SERV 15 FOUNDATIO MINUTES N OFFICE 80185 [place] WEISS JR OUTPATIEN 5 5 [facility] 20 HOSPITAL MINUTES P OFFICE 29690 [facility] PETTEY OUTPATIEN 5 5 PHYSICIAN JAM [facility] 30 S GROUP MINUTES OFFICE 08303 [facility] CON[facility] 5 5 [facility] MEDICAL NEW/ESTAB G PATIENT 60 MIN OFFICE 84897 DANIEL CHAND 5 5 HUBER HUBER T VISIT 15 MINUTES [facility] [place] - 5 5 [facility] OUTPATIEN INC T EMERGENCY 75142 [place] ESCOTO 5 5 [facility] T VISIT P MODERATE SEVERITY EMERGENCY 80748 [place] 5 5 [facility] DEPARTMEN INC T VISIT HIGH/URGE NT SEVERITY EMERGENCY 01813 [place] 5 5 [facility] DEPARTMEN INC T VISIT HIGH/URGE NT SEVERITY [facility] [place] - 5 5 [facility] OUTPATIEN INC T OFFICE 02039 DANIEL CHAND 5 5 HUBER HUBER T VISIT 15 MINUTES OFFICE 37813 DANIEL CHAND 4 4 HUBER HUBER T VISIT 15 MINUTES [facility] [place] - 4 4 [facility] OUTPATIEN INC T EMERGENCY 18929 [place] 4 4 [facility] DEPARTMEN INC T VISIT LOW/MODER SEVERITY OFFICE 33209 DANIEL TOLEDODAYRON 4 4 HUBER HUBER T VISIT 15 MINUTES [facility]OSP[facility] [place] - 4 4 [facility] OUTPATIEN [facility] T EMERGENCY 89565 CHRIS PALACIO DEPT 4 4 [place] VISIT EMERGENCY HIGH PHYS SEVERITY& THREAT [facility] - 4 4 N OUTPATIEN [facility] T HOSPITA OFFICE 18689 ARMANDOBING DANIEL OUTPATINEENA 4 4 HUBER HUBER T VISIT 15 MINUTES OFFICE 14337 [place] [facility] CONSULTAT 4 4 KADIE ION CARDIOLOG NEW/ESTAB Y AT CENT PATIENT 40 MIN OFFICE 62404 [place] NOGUEIRA CONSULTAT 4 4 MEDICAL JAM ION SERV NEW/ESTAB FOUNDATIO PATIENT N 60 MIN [facility] [place] - 4 4 [facility] OUTPATIEN REPLACED BY [facility] [place] [facility] 4 4 [facility] OUTPATIEN [facility] T OFFICE 02779 DANIEL SANCHEZ OUTPATIEN 4 4 HUBER HUBER T VISIT 15 MINUTES OFFICE 61074 ATKINS ATKINS CONSULTAT 4 4 TRA TRA ION NEW/ESTAB PATIENT 40 MIN OFFICE 47940 [facility] OUTPATI[facility] 4 4 [facility] T VISIT MEDICAL 15 G MINUTES [facility]OS[facility] [place] - 4 4 [facility] T NEW 30 MEDICAL MINUTES G EMERGENCY 84418 CHRIS LEAHY DEPT 4 4 [place] MOH VISIT EMERGENCY HIGH PHYSI SEVERITY& THREAT [facility] [place] - 4 4 [facility] OUTPATI[facility] INC T EMERGENCY 00174 HORTENCIA HUGHES DEPT 4 4 VISIT HIGH SEVERITY& THREAT FUN EMERGENCY 67383 [place] 4 4 [facility] DEPARTMEN INC T VISIT MODERATE SEVERITY EMERGENCY 53990 [place] 4 4 [facility] DEPARTMEN INC T VISIT HIGH/URGE NT SEVERITY OFFICE 80159 DANIEL CHAND 4 4 HUBER HUBER T VISIT 15 MINUTES [facility] [place] - 4 4 [facility] OUTPATIEN INC T EMERGENCY 68292 ANKUR PASCUAL DEPT 4 4 BRYCE BRYCE VISIT HIGH SEVERITY& THREAT FUNCJ OFFICE 71472 SANCHEZ MICHELLE SANCHEZ MICHELLE CONSULTAT 4 4 ION NEW/ESTAB PATIENT 80 MIN OFFICE 14770 DANIEL CHAND 4 4 HUBER HUBER T NEW 30 MINUTES [facility]OS[facility] [place] - 4 4 [facility] OUTPATIEN INC T OFFICE 91035 MAEGAN CHAND 4 4 JARON JARON T VISIT 5 MINUTES OFFICE 06059 MAEGAN CHAND 4 4 JARON JARON T NEW 30 MINUTES EMERGENCY 40397 KIMBERLEE PASCUAL, 9 9 [facility] T VISIT ON HIGH/URGE NT SEVERITY EMERGENCY 81706 [place] 9 9 [facility] DEPARTMEN INC T VISIT LOW/MODER SEVERITY [facility] [place] - 9 9 [facility] OUTPATIEN INC T
--- OUTSIDE RECORDS SUMMARY | 2017-07-08 21:40 | External Medical Summary Rpt ---
Author Author , YENNY RAMON Address Unknown Phone [email or web address] Immunization Name Date Rout CVX Reac Dose Comm Prov Is Faci e tion ent ider Refu lity Give sed n Tdap 10-0 115 0.50 Hist [place] No H149 , 7-20 mL oric Adso 16 al APRI rbed Info L rmat ion - Sour ce Unsp ecif ied Td, 12-2 139 999 Hist [place] No [place] UF 1-20 oric 06 al Info rmat ion - Sour ce Unsp ecif ied Td, 02-2 139 999 Hist [place] No [place] UF 6-19 oric 97 al Info rmat ion - Sour ce Unsp ecif ied MMR 07-2 3 999 Hist [place] No [place] 4-19 oric 93 al Info rmat ion - Sour ce Unsp ecif ied Td, 05-0 139 999 Hist [place] No [place] UF 1-19 oric 87 al Info rmat ion - Sour ce Unsp ecif ied MMR 05-2 3 999 Hist [place] No [place] 5-19 oric 77 al Info rmat ion - Sour ce Unsp ecif ied Ward 03-0 89 999 Hist [place] No [place] o, 2-19 oric UF 77 al Info rmat ion - Sour ce Unsp ecif ied DTP 03-0 1 999 Hist [place] No [place] 2-19 oric 77 al Info rmat ion - Sour ce Unsp ecif ied DTP 05-0 1 999 Hist [place] No [place] 9-19 oric 73 al Info rmat ion - Sour ce Unsp ecif ied Ward 05-0 89 999 Hist [place] No [place] o, 9-19 oric UF 73 al Info rmat ion - Sour ce Unsp ecif ied MMR 11-0 3 999 Hist [place] No [place] 8-19 oric 72 al Info rmat ion - Sour ce Unsp ecif ied Ward 05-1 89 999 Hist [place] No [place] o, 7-19 oric UF 72 al Info rmat ion - Sour ce Unsp ecif ied Ward 04-0 89 999 Hist [place] No [place] o, 5-19 oric UF 72 al Info rmat ion - Sour ce Unsp ecif ied DTP 03-2 1 999 Hist [place] No [place] 2-19 oric 72 al Info rmat ion - Sour ce Unsp ecif ied DTP 02-0 1 999 Hist [place] No [place] 2-19 oric 72 al Info rmat ion - Sour ce Unsp ecif ied Ward 02-0 89 999 Hist [place] No [place] o, 2-19 oric UF 72 al Info rmat ion - Sour ce Unsp ecif ied DTP 01-0 Intr 1 999 Hist [place] No [place] 1-19 amus oric 72 cula al r Info rmat ion - Sour ce Unsp ecif ied
--- OUTSIDE RECORDS SUMMARY | 2017-07-08 21:40 | External Medical Summary Rpt ---
Author Author , YENNY RAMON Address Unknown Phone [email or web address] Immunization Name Date Rout CVX Reac Dose Comm Prov Is Faci e tion ent ider Refu lity Give sed n Tdap 10-0 115 0.50 Hist [place] No H149 , 7-20 mL oric Adso 16 al APRI rbed Info L rmat ion - Sour ce Unsp ecif ied Td, 12-2 139 999 Hist [place] No ID UF 1-20 oric 06 al Info rmat ion - Sour ce Unsp ecif ied Td, 02-2 139 999 Hist ID No ID UF 6-19 oric 97 al Info rmat ion - Sour ce Unsp ecif ied MMR 07-2 3 999 Hist ID No ID 4-19 oric 93 al Info rmat ion - Sour ce Unsp ecif ied Td, 05-0 139 999 Hist ID No ID UF 1-19 oric 87 al Info rmat ion - Sour ce Unsp ecif ied MMR 05-2 3 999 Hist ID No ID 5-19 oric 77 al Info rmat ion - Sour ce Unsp ecif ied Ward 03-0 89 999 Hist ID No ID o, 2-19 oric UF 77 al Info rmat ion - Sour ce Unsp ecif ied DTP 03-0 1 999 Hist ID No ID 2-19 oric 77 al Info rmat ion - Sour ce Unsp ecif ied DTP 05-0 1 999 Hist ID No ID 9-19 oric 73 al Info rmat ion - Sour ce Unsp ecif ied Ward 05-0 89 999 Hist ID No ID o, 9-19 oric UF 73 al Info rmat ion - Sour ce Unsp ecif ied MMR 11-0 3 999 Hist ID No ID 8-19 oric 72 al Info rmat ion - Sour ce Unsp ecif ied Ward 05-1 89 999 Hist ID No ID o, 7-19 oric UF 72 al Info rmat ion - Sour ce Unsp ecif ied Ward 04-0 89 999 Hist ID No ID o, 5-19 oric UF 72 al Info rmat ion - Sour ce Unsp ecif ied DTP 03-2 1 999 Hist ID No ID 2-19 oric 72 al Info rmat ion - Sour ce Unsp ecif ied DTP 02-0 1 999 Hist ID No ID 2-19 oric 72 al Info rmat ion - Sour ce Unsp ecif ied Ward 02-0 89 999 Hist ID No ID o, 2-19 oric UF 72 al Info rmat ion - Sour ce Unsp ecif ied DTP 01-0 Intr 1 999 Hist ID No ID 1-19 amus oric 72 cula al r Info rmat ion - Sour ce Unsp ecif ied
[2017-07-08 23:12] VITALS: BP 127/85
--- NOTE | 2017-07-08 23:40 | Emergency Room Report ---
History of Present Illness Time Seen by 2030 Presenting Problem in Triage Pt arrived:Walked Presenting Problem:PT STATES SHE WAS SUPPOSE TO HAVE A SCOPE THROUGH HER NASAL PASSAGE AND SHE STATES "THEY COULDNT GET IT THROUGH AND EVER SINCE THEN SABIHA BEEN HAVING PAIN AND PRESSURE IN MY SINUSES." PT STATES THIS PROCEDURE WAS . 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 N Clinical Suspician of Infection? N Mental Status: 1 - Regular (Normal Baseline) Sepsis Risk:Possible Sepsis Risk Have you (or family members/close friends) recently traveled outside the [place]? N If Yes, where/when: Have you had exposure to infectious disease within the past month? N TB? Other? Specify: Source patient, RN notes reviewed, old records Exam Limitations no limitations Comment pt with attempted nasal insertion of ng tube last week with trauma reported and bleeding and since no bleeding or d/c gut sinus pressure Cardiac Chest Pain Chest pain indicative of cardiac No Timing/Duration this evening Severity moderate ALLERGIES Coded Allergies: Sulfa (Sulfonamide Antibiotics) (Mild, I-RASH 01/22/17) codeine (Mild, I-RASH 01/22/17) diphenhydramine (From BENADRYL) (Mild, 01/22/17) morphine (01/22/17) Home Medications Active Scripts ONDANSETRON HCL (Zofran 4MG Tab) 4 MG PO Q6HP PRN NAUSEA AND VOMITING #40 TAB Prov: 03/22/17 Prednisone (Prednisone 20MG) 20 MG PO BID #10 TAB Prov: 06/30/17 Reported Medications MULTIVITAMIN (One Daily) 1 TAB PO DAILY Linaclotide (Linzess 145MCG) 145 MCG PO DAILY #30 Lovastatin 20 MG PO DAILY CEPHALEXIN (Keflex 500MG Capsule) 500 MG PO BID #30 Omeprazole (Omeprazole 40MG) 40 MG PO BID Cyclobenzaprine Hcl 50 MG PO BID Loratadine 10 MG PO DAILY CHOLECALCIFEROL (VITAMIN D3) (Vitamin D) 50,000 IUNITS PO WEEKLY History Medical History General CAD? No Angina: Yes [place]: No Hypertension? No Hyperlipidemia? Yes CHF? No DVT? No PE? No COPD? No Asthma? No Anemia? No GERD? Yes Gastric ulcers? No GI Bleed? No Hernia? Yes Thyroid Problems? No Hypothyroidism? No CVA? No Seizures? No Diabetes? No Renal Insuffiency? No End Stage Renal Disease? No UTI? Yes Stones? No BPH? No GB Disease: Yes Nephritic Syndrome? No Asplenia? No Hepatitis? No Sickle Cell Disease? No Arthritis? Yes Migraines? Yes Cataracts? No Glaucoma? No MRSA? No HIV? No TB? No Anxiety? Yes Depression? No Cancer? No More? 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 denies: ear pain, ear discharge, epistaxis, throat pain, throat swelling. Respiratory denies cough, denies shortness of breath, denies wheezing Cardiovascular denies chest pain, denies palpitations, denies syncope Gastrointestinal denies abdominal pain, denies diarrhea, denies vomiting Genitourinary denies: dysuria, frequency, hesitancy, hematuria. Musculoskeletal denies back pain, denies joint pain, denies joint swelling, denies neck pain Skin denies rash Psychiatric/Neurological denies headache, denies seizure Physical Exam Vital Signs Vital Signs Date Time Temp Pulse Resp B/P Pulse O2 O2 Flow FiO2 Ox Delivery Rate 07/08 2312 98.1 95 20 127/85 99 07/08 2024 98.1 95 20 127/85 99 - WBC >12,000 or <4,000 or 10% bands? 2 or more SIRS Criteria Met? B/P:127/85 MAP:99 Creatinine >2.0? UA output<0.5ml/kg/hr for 2 hrs? Platelet count >100,000? Lactate >2.0mmol/1? INR >1.2 or PTT > than 60 sec? Evidence of Organ Dysfunction? Provider documented clinical suspician of infection? N Sepsis Criteria Count: 2 Sepsis Risk: Possible Sepsis Risk General Appearance no apparent distress Eye Exam - bilateral eye PERRL, bilateral eye EOMI Ear, Nose, Throat normal ENT inspection, no bleeding and no septal hematoma Neck supple Respiratory Status No: respiratory distress. 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 No Departure Departure Time of Disposition 7085 Disposition DC Home or Self Care(routine) Clinical Impression Primary Impression: Sinus congestion Condition STABLE Referrals Evon Gonzales APRN (Family) Patient Instructions DI for Sinus Headache Additional Instructions see pcp for follow up Discharge Counseling Counseled pt/family regarding diagnosis, follow up needs ED Critical Care Critical Care No at 3505
--- NOTE | 2017-07-08 23:40 | Emergency Room Report ---
History of Present Illness Time Seen by 2030 Presenting Problem in Triage Pt arrived:Walked Presenting Problem:PT STATES SHE WAS SUPPOSE TO HAVE A SCOPE THROUGH HER NASAL PASSAGE AND SHE STATES "THEY COULDNT GET IT THROUGH AND EVER SINCE THEN SABIHA BEEN HAVING PAIN AND PRESSURE IN MY SINUSES." PT STATES THIS PROCEDURE WAS . 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 N Clinical Suspician of Infection? N Mental Status: 1 - Regular (Normal Baseline) Sepsis Risk:Possible Sepsis Risk Have you (or family members/close friends) recently traveled outside the [place]? N If Yes, where/when: Have you had exposure to infectious disease within the past month? N TB? Other? Specify: Source patient, RN notes reviewed, old records Exam Limitations no limitations Comment pt with attempted nasal insertion of ng tube last week with trauma reported and bleeding and since no bleeding or d/c gut sinus pressure Cardiac Chest Pain Chest pain indicative of cardiac No Timing/Duration this evening Severity moderate ALLERGIES Coded Allergies: Sulfa (Sulfonamide Antibiotics) (Mild, I-RASH 01/22/17) codeine (Mild, I-RASH 01/22/17) diphenhydramine (From BENADRYL) (Mild, 01/22/17) morphine (01/22/17) Home Medications Active Scripts ONDANSETRON HCL (Zofran 4MG Tab) 4 MG PO Q6HP PRN NAUSEA AND VOMITING #40 TAB Prov: 03/22/17 Prednisone (Prednisone 20MG) 20 MG PO BID #10 TAB Prov: 06/30/17 Reported Medications MULTIVITAMIN (One Daily) 1 TAB PO DAILY Linaclotide (Linzess 145MCG) 145 MCG PO DAILY #30 Lovastatin 20 MG PO DAILY CEPHALEXIN (Keflex 500MG Capsule) 500 MG PO BID #30 Omeprazole (Omeprazole 40MG) 40 MG PO BID Cyclobenzaprine Hcl 50 MG PO BID Loratadine 10 MG PO DAILY CHOLECALCIFEROL (VITAMIN D3) (Vitamin D) 50,000 IUNITS PO WEEKLY History Medical History General CAD? No Angina: Yes NM: No Hypertension? No Hyperlipidemia? Yes CHF? No DVT? No PE? No COPD? No Asthma? No Anemia? No GERD? Yes Gastric ulcers? No GI Bleed? No Hernia? Yes Thyroid Problems? No Hypothyroidism? No CVA? No Seizures? No Diabetes? No Renal Insuffiency? No End Stage Renal Disease? No UTI? Yes Stones? No BPH? No GB Disease: Yes Nephritic Syndrome? No Asplenia? No Hepatitis? No Sickle Cell Disease? No Arthritis? Yes Migraines? Yes Cataracts? No Glaucoma? No MRSA? No HIV? No TB? No Anxiety? Yes Depression? No Cancer? No More? 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 denies: ear pain, ear discharge, epistaxis, throat pain, throat swelling. Respiratory denies cough, denies shortness of breath, denies wheezing Cardiovascular denies chest pain, denies palpitations, denies syncope Gastrointestinal denies abdominal pain, denies diarrhea, denies vomiting Genitourinary denies: dysuria, frequency, hesitancy, hematuria. Musculoskeletal denies back pain, denies joint pain, denies joint swelling, denies neck pain Skin denies rash Psychiatric/Neurological denies headache, denies seizure Physical Exam Vital Signs Vital Signs Date Time Temp Pulse Resp B/P Pulse O2 O2 Flow FiO2 Ox Delivery Rate 07/08 2312 98.1 95 20 127/85 99 07/08 2024 98.1 95 20 127/85 99 - WBC >12,000 or <4,000 or 10% bands? 2 or more SIRS Criteria Met? B/P:127/85 MAP:99 Creatinine >2.0? UA output<0.5ml/kg/hr for 2 hrs? Platelet count >100,000? Lactate >2.0mmol/1? INR >1.2 or PTT > than 60 sec? Evidence of Organ Dysfunction? Provider documented clinical suspician of infection? N Sepsis Criteria Count: 2 Sepsis Risk: Possible Sepsis Risk General Appearance no apparent distress Eye Exam - bilateral eye PERRL, bilateral eye EOMI Ear, Nose, Throat normal ENT inspection, no bleeding and no septal hematoma Neck supple Respiratory Status No: respiratory distress. 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 No Departure Departure Time of Disposition 1564 Disposition DC Home or Self Care(routine) Clinical Impression Primary Impression: Sinus congestion Condition STABLE Referrals Evon Gonzales APRN (Family) Patient Instructions DI for Sinus Headache Additional Instructions see pcp for follow up Discharge Counseling Counseled pt/family regarding diagnosis, follow up needs ED Critical Care Critical Care No at [phone]
[2017-07-09] MEDS ORDERED: PROMETHAZINE HC25 M1 PO (16:16)
== END 2017-07-08 23:54 | disposition home or self-care (01) ==
LOC: ER 20:06
DX: R09.81 Nasal congestion (principal); Z79.899 Other long term (current) drug therapy; K21.9 Gastro-esophageal reflux disease without esophagitis

== ENCOUNTER 2017-07-15 11:43 | Emergency (ER) | payer MEDICAID ==
[~2017-07-15] VITALS: Ht 170.2 cm; Wt 117.9 kg
[~2017-07-15 11:43] MED LIST changes: +PROMETHAZINE HC25 M1 PO
--- NOTE | 2017-07-15 12:13 | Emergency Room Report ---
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 N Clinical Suspician of Infection? N Mental Status: 1 - Regular (Normal Baseline) Sepsis Risk:Low Sepsis Risk Have you (or family members/close friends) recently traveled outside the [place]? N If Yes, where/when: Have you had exposure to infectious disease within the past month? N TB? Other? Specify: 46 years old female with multiple ED visits in the last 48 ed visits in the past 12 months. She is a patient of Dr. Bryan attempted to do a nasopharyngeal scope on July 03 and was unsuccessful due to nasal obstruction and deviated septum. Since then she has been scheduled for a CT scan of the sinuses and was not done. She came to the ED yesterday because of a frontal headache and nasal obstruction. She returns today with EMS unhappy with her yesterday visits because she didn't get a CT scan. She denies neck pain or chills and sore throat chest pain shortness of air abdominal pain nausea vomiting. She describes the pain as frontal throbbing in character and worse in the mornings. Source patient, RN notes reviewed, family Exam Limitations no limitations ALLERGIES Coded Allergies: Sulfa (Sulfonamide Antibiotics) (Mild, I-RASH 01/22/17) codeine (Mild, I-RASH 01/22/17) diphenhydramine (From BENADRYL) (Mild, 01/22/17) morphine (01/22/17) Home Medications Active Scripts ONDANSETRON HCL (Zofran 4MG Tab) 4 MG PO Q6HP PRN NAUSEA AND VOMITING #40 TAB Prov: 03/22/17 PROMETHAZINE HCL (Promethazine 25mg Tab) 25 MG PO Q6HP PRN NAUSEA AND VOMITING #8 TAB Prov: 07/09/17 Reported Medications MULTIVITAMIN (One Daily) 1 TAB PO DAILY Linaclotide (Linzess 145MCG) 145 MCG PO DAILY #30 Lovastatin 20 MG PO DAILY Omeprazole (Omeprazole 40MG) 40 MG PO BID Cyclobenzaprine Hcl 50 MG PO BID Loratadine 10 MG PO DAILY CHOLECALCIFEROL (VITAMIN D3) (Vitamin D) 50,000 IUNITS PO WEEKLY History Medical History General CAD? No Angina: Yes AR: No Hypertension? No Hyperlipidemia? Yes CHF? No DVT? No PE? No COPD? No Asthma? No Anemia? No GERD? Yes Gastric ulcers? No GI Bleed? No Hernia? Yes Thyroid Problems? No Hypothyroidism? No CVA? No Seizures? No Diabetes? No Renal Insuffiency? No End Stage Renal Disease? No UTI? Yes Stones? No BPH? No GB Disease: Yes Nephritic Syndrome? No Asplenia? No Hepatitis? No Sickle Cell Disease? No Arthritis? Yes Migraines? Yes Cataracts? No Glaucoma? No MRSA? No HIV? No TB? No Anxiety? Yes Depression? No Cancer? No More? 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 Respiratory no symptoms reported Cardiovascular no symptoms reported Gastrointestinal no symptoms reported Genitourinary no symptoms reported. Musculoskeletal no symptoms reported Skin no symptoms reported Psychiatric/Neurological no symptoms reported Physical Exam Vital Signs Vital Signs Date Time Temp Pulse Resp B/P Pulse O2 O2 Flow FiO2 Ox Delivery Rate 07/15 1308 97.3 89 14 127/75 99 07/15 1231 89 14 127/75 99 07/15 1226 14 07/15 1146 97.3 83 14 117/ 98 - WBC >12,000 or <4,000 or 10% bands? 2 or more SIRS Criteria Met? B/P:117/ MAP:85 Creatinine >2.0? UA output<0.5ml/kg/hr for 2 hrs? Platelet count >100,000? Lactate >2.0mmol/1? INR >1.2 or PTT > than 60 sec? Evidence of Organ Dysfunction? Provider documented clinical suspician of infection? N Sepsis Criteria Count: 0 Sepsis Risk: Low Sepsis Risk General Appearance normal appearance, WD/WN Eye Exam - bilateral eye normal exam, bilateral eye PERRL, bilateral eye EOMI Ear, Nose, Throat normal ENT inspection, sinus pain/drainage, nasal congestion Neck normal inspection, non-tender, supple, full range of motion Respiratory Status Yes: trachea midline, chest symmetrical, non tender chest. No: respiratory distress. Lung Sounds bilateral: normal breath sounds, lungs clear. 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 No Results/Orders Current Medication Orders Sig/[place] Start time Last Medication Dose Route Stop Time Status Admin Ketorolac 0 .STK-MED ONE 07/15 1224 DC Tromethamine .ROUTE Ketorolac 60 MG ONCE ONE 07/15 1215 DC 07/15 Tromethamine IM 07/15 1216 1226 Orders Procedure Date/time Status DIET-NOTHING BY MOUTH 07/[address] SCAN REQUEST 07/[address] HEAD REQ 07/15 1156 Complete Departure Departure Time of Disposition 1212 Disposition DC Home or Self Care(routine) Clinical Impression Primary Impression: Sinus headache Condition STABLE Referrals Irvin BOWMAN,[facility] Additional Instructions I DISCUSSED [place] PATIENT HER [place] ED VISITS AND REPEATED CT SCAN CORRELATES WITH INCREASED CANCER RISK, SHE HAD AT LEAST 4 SCANS IN THIS FACILITY ALONE THIS YEAR. SHE VERBLIZED UNDERSTANDING. I discussed with the patient her CT reports and informative she is seen by Dr. Bryan as described below. I was told by Dr. Bryan's office that she is a multiple no show. I made her another appointment at 3:30 PM. ALSO, SHE WILL NEED TO SEE DR JURADO FOR HER HEDACHES. THE PATIETN WAS GIVEN TORADOL 10 MG PO BID AND INFORMED TO RETURN IF WORSE OR NEW SX LIKE NECK STIFFNESS OR FEVER. Discharge Counseling Counseled pt/family regarding diagnosis, test results, medications/RX, home care, follow up needs Prescriptions Current Visit Scripts KETOROLAC TROMETHAMINE (TORADOL 10MG) 10 MG PO Q12HP #6 TAB ED Critical Care Critical Care No If Critical Care minutes are documented, the time involved in the performance of seperately reportable procedures was not counted toward critical care time documented. I directly delivered medical care to this critically ill and/or injured patient. Timely evaluation and treatment was necessary to address the significant organ system(s) dysfunction present in this patient. at 1324
[2017-07-15] MEDS ORDERED: TORADOL10 MG PO (12:56)
--- NOTE | 2017-07-15 13:13 | RADIOLOGY REPORT PS360 ---
CT HEAD W/O CONTRAST HISTORY: Severe headache CARTY ORDERING PHYSICIAN: Сергей Solano MD PATIENT AGE: 46 years COMPARISON: 04-09 TECHNIQUE: Axial images obtained without contrast. Brain and bone windows reviewed. FINDINGS: No midline shift, mass effect, intracranial hemorrhage, hydrocephalus, or extra-axial fluid collection is evident. The calvarium has an unremarkable appearance. No mastoid effusion. The visualized paranasal sinuses are unremarkable. IMPRESSION: IMPRESSION: No acute intracranial findings. No significant change.
--- NOTE | 2017-07-15 13:14 | RADIOLOGY REPORT PS360 ---
CT SINUS (MAX-FACIAL W/O CONT) CLINICAL INDICATION: Sinus pressure and pain ENT COMPLAINTS;SINUS,NASAL,FRONTAL PRESSURE ON TOP OF HEAD ORDERING PHYSICIAN: Сергей Solano MD PATIENT AGE: 46 years COMPARISON: None TECHNIQUE:Axial, sagittal, and coronal images are generated and reviewed without contrast COMPARISON: None FINDINGS: Bones: Unremarkable. No fracture, lytic, or blastic changes evident Extracranial soft tissues: Unremarkable Sinuses: Unremarkable. No air-fluid levels or significant mucosal thickening Orbits: Unremarkable Other: No other pertinent findings IMPRESSION: Negative CT of the sinuses
[2017-07-15 13:33] VITALS: BP 127/73
== END 2017-07-15 13:34 | disposition home or self-care (01) ==
LOC: ER 11:43
DX: R51 Headache (principal); Z79.899 Other long term (current) drug therapy; K21.9 Gastro-esophageal reflux disease without esophagitis; M79.7 Fibromyalgia

== ENCOUNTER 2017-08-21 13:29 | Emergency (ER) | payer MEDICAID ==
[~2017-08-21] VITALS: Ht 170.2 cm; Wt 111.6 kg
[~2017-08-21 13:29] MED LIST changes: +TORADOL10 MG PO
[2017-08-21] MEDS ORDERED: MEDROL 4MG. DOSE4 MG PO (13:55)
--- NOTE | 2017-08-21 13:55 | Urgent Treatment Center Report ---
History of Present Issue Date/Time Seen by Provider 08/21/17 1345 Visit Reason Pt arrived:Walked Presenting Problem:PT C/O HEAD CONGESTION, RUNNY/STOPPED UP NOSE, FACIAL ACHES, DRAINAGE X4 DAYS Location if Accident: Onset of symptoms date/time:/ or onset unknown for:MEDICAL HX UNKNOWN Have you (or family members/close friends) recently traveled outside the [place]? N If Yes, where/when: Have you had exposure to infectious disease within the past month? TB? Other? Specify: c/o worsening allergies x4 days. rhinorrhea, nasal congestion, PND. Reports Dr. Bryan told her ct sinuses clear last visit < 1 months ago. hx allergies, previously seen by Dr. Gardiner. Started allergy injections but reports "a reaction " and had to stop. Taking claritin daily, flonase worsens symptoms. hx anxiety, trying breathing techniques w/ comp care, does ok w/ sudafed, knows steroid will help, adament it doesn't worsen anxiety, no known sick contacts Source patient Exam Limitations no limitations ALLERGIES Coded Allergies: Sulfa (Sulfonamide Antibiotics) (Mild, I-RASH 01/22/17) codeine (Mild, I-RASH 01/22/17) diphenhydramine (From BENADRYL) (Mild, 01/22/17) morphine (01/22/17) Home Medications Active Scripts ONDANSETRON HCL (Zofran 4MG Tab) 4 MG PO Q6HP PRN NAUSEA AND VOMITING #40 TAB Prov: 03/22/17 PROMETHAZINE HCL (Promethazine 25mg Tab) 25 MG PO Q6HP PRN NAUSEA AND VOMITING #8 TAB Prov: 07/09/17 Reported Medications MULTIVITAMIN (One Daily) 1 TAB PO DAILY Linaclotide (Linzess 145MCG) 145 MCG PO DAILY #30 Lovastatin 20 MG PO DAILY Omeprazole (Omeprazole 40MG) 40 MG PO BID Cyclobenzaprine Hcl 50 MG PO BID Loratadine 10 MG PO DAILY CHOLECALCIFEROL (VITAMIN D3) (Vitamin D) 50,000 IUNITS PO WEEKLY History Medical History General CAD? No Angina: Yes IN: No Hypertension? No Hyperlipidemia? Yes CHF? No DVT? No PE? No COPD? No Asthma? No Anemia? No GERD? Yes Gastric ulcers? No GI Bleed? No Hernia? Yes Thyroid Problems? No Hypothyroidism? No CVA? No Seizures? No Diabetes? No Renal Insuffiency? No UTI? Yes Stones? No BPH? No GB Disease: Yes Nephritic Syndrome? No Asplenia? No Hepatitis? No Sickle Cell Disease? No Arthritis? Yes Migraines? Yes Cataracts? No Glaucoma? No MRSA? No HIV? No TB? No Anxiety? Yes Depression? No Cancer? No More? No Additional hx: Fibromyalgia Immunization HX DT/Tetanus 2007 Surgical Hx Previous Surgery?Y ELBOW AT AGE 5 UMBILICAL HERNIA 3-4 YRS GALLBLADDER C SECTION 07/13/07 TUBAL LIGATION PARTIAL L SALPINGECTOMY ENDOSCOPY GASTRIC SLEEVE HEART CATH MARCH 2016 COLONOSCOPY 08/08/16 ENDOSCOPY 08/08/16 Family History Family HX Diabetes Yes CAD Yes Hypertension Yes Hyperlipidemia Yes Cancer Yes TB No Social History Smoking Hx Smoker: Never Smoker Tobacco: No Alcohol Alcohol: No Review of Systems All Other Systems Reviewed and Negative Constitutional denies chills, denies fever, denies malaise Eyes see HPI, denies other (itchy but occasionally watery) ENT see HPI, throat pain ("at times" in mornings). denies: ear pain, ear discharge. Respiratory cough ("mild intermittent"), denies shortness of breath, denies wheezing Cardiovascular denies chest pain, denies palpitations Gastrointestinal denies no symptoms reported Musculoskeletal denies other (no pain) Skin denies change in color, denies rash Psychiatric/Neurological denies headache Physical Exam Vital Signs Vital Signs Date Time Temp Pulse Resp B/P Pulse O2 O2 Flow FiO2 Ox Delivery Rate 08/21 1400 98.7 83 18 132/71 99 08/21 1346 98.7 83 18 132/71 99 General Appearance normal appearance, no apparent distress Eye Exam - bilateral eye normal exam Ear, Nose, Throat mild nasal congestion, clear rhinorrhea, sneezing, clear PND, cobblestoning Neck non-tender, supple Respiratory Status No: respiratory distress, productive cough, non productive cough. Lung Sounds anterior: lungs clear. posterior: lungs clear. bilateral: lungs clear. Cardiovascular regular rate/rhythm, no peripheral edema, no murmur Neurologic alert, oriented x 3 Mental status normal mood/affect Skin normal color, warm/dry Lymphatic no adenopathy Medical Decision Making LABS/Meds/Orders Pt receiving controlled substance in ED? No Departure Departure Time of Disposition 1352 Disposition DC Home or Self Care(routine) Clinical Impression Primary Impression: Environmental and seasonal allergies Condition STABLE Referrals Evon Gonzales APRN (Family) Schedule follow up to discuss allergy treatment plan and rather or not you were supposed to return to Dr. Gardiner. Patient Instructions DI for Allergic Rhinitis Additional Instructions Continue loratadine Continue flonase you can try OTC sudafed. If you feel like it worsens your anxiety, stop taking it. Start steroid. you report you have taken these before and therefore, are aware of side effects but that they have really helped in the past. Be sure to follow up with primary care and see if they want you to return to the financial assistance advisor. Discharge Counseling Counseled pt/family regarding diagnosis, medications/RX, home care, follow up needs Prescriptions Current Visit Scripts Methylprednisolone (Medrol Dose Jordan) 4 MG PO UD #1 JORDAN TAKE DIRECTED ON PACKAGING at 1016
[2017-08-21 14:00] VITALS: BP 132/71
== END 2017-08-21 14:00 | disposition home or self-care (01) ==
LOC: UTC 13:29
DX: J30.2 Other seasonal allergic rhinitis (principal); M79.7 Fibromyalgia; K21.9 Gastro-esophageal reflux disease without esophagitis; E78.5 Hyperlipidemia, unspecified; Z88.2 Allergy status to sulfonamides; Z88.6 Allergy status to analgesic agent

== ENCOUNTER 2017-08-26 13:50 | Day surgery (SDC) | payer MEDICAID ==
[~2017-08-26] VITALS: Ht 170.2 cm; Wt 120.7 kg
[2017-08-26 14:17] VITALS: BP 148/78
[2017-08-26 14:33] VITALS: BP 148/78
[2017-08-26 14:35] VITALS: BP 142/78
--- NOTE | 2017-08-26 14:38 | Procedure Note ---
Procedure detail Date of procedure: 08/26/17 Anesthesiologist: Tylor Junior Complications: None Pre-procedure diagnosis: Bilateral sacroiliitis Post-procedure diagnosis: Same Indications for procedure: Very pleasant 46-year-old morbidly obese white female that we are treating for bilateral hip pain. Bilateral sacroiliitis. Patient presents to the procedure clinic today for bilateral SI joint injections. Procedure detail: Procedure: Bilateral sacroiliac joint injections under fluoroscopy Informed consent was obtained and the risks and benefits of the procedure were explained to the patient.~ The patient was taken to the procedure room and noninvasive monitors were placed including a noninvasive blood pressure cuff and pulse oximeter.~ The patient was placed prone on the procedure table. Both hips were cleansed using Betadine as a cleansing solution. C-arm fluoroscopy was used to view the right sacroiliac joint.~ The skin and subcutaneous tissues were anesthetized using lidocaine 1.5% and a 25-gauge needle.~ After this, a 22-gauge spinal needle was inserted under fluoroscopic guidance into the inferior aspect of the right sacroiliac joint.~ Omnipaque dye was injected and good spread was seen throughout the joint.~ After this, approximately 5 mL of bupivacaine, 0.25% and Depo-Medrol, 40 mg was incrementally injected into the right sacroiliac joint. We then moved to the left sacroiliac joint.~ The skin and subcutaneous tissues were anesthetized using lidocaine 1.5% and a 25-gauge needle.~ After this, a 22- gauge spinal needle was inserted under fluoroscopic guidance into the inferior aspect of the left sacroiliac joint.~ Omnipaque dye was injected and good spread was seen throughout the joint. After this, approximately 5 mL of bupivacaine, 0.25% and Depo-Medrol, 40 mg was incrementally injected into the left sacroiliac joint.~ The patient tolerated the procedure well with no complications. The patient was observed in the Pain Clinic and then was discharged home neurologically intact. Plan and disposition: Patient was reevaluated 10 minutes postprocedure. Patient reports 90 percent improvement terms her bilateral hip pain. She'll return to see us for further evaluation. at 4243
[2017-08-26 15:01] VITALS: BP 122/75
== END 2017-08-26 14:30 | disposition home or self-care (01) ==
LOC: PM 13:50
PROC: 3E0U33Z Introduction of Anti-inflammatory into Joints, Percutaneous Approach (ICD-10-PCS; principal; 2017-08-26)
PROC: 3E0U3BZ Introduction of Anesthetic Agent into Joints, Percutaneous Approach (ICD-10-PCS; 2017-08-26)
DX: M46.1 Sacroiliitis, not elsewhere classified (principal); M25.552 Pain in left hip; M25.551 Pain in right hip
CPT/HCPCS: G0260; J1030; Q9966

== ENCOUNTER 2017-09-09 22:19 | Observation (INO) | payer MEDICAID ==
[~2017-09-09] VITALS: Ht 170.2 cm; Wt 120.3 kg
[~2017-09-09 22:19] MED LIST changes: -CYCLOBENZAPRINE10 M1 PO; +CYCLOBENZAPRINE5 MG PO
[2017-09-09 22:21] VITALS: BP 125/75
[2017-09-09 22:32] LABS: HEMOGLOBIN 13.8 g/dL (12.2-16.2); LYMPH # 1.6 K/mm3 (0.7-4.5); LYMPH % 21.6 % (10-50.0)
[2017-09-09 22:58] LABS: BUN 10 mg/dL (7-18); GFR (ESTIMATED) 78 ML/MIN (59-)
--- OUTSIDE RECORDS SUMMARY | 2017-09-09 23:01 | External Medical Summary Rpt | CCD ---
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 HOSPITA HYPERLIPIDE LILIANE 7245 UNSPECIFIED 02-20-2015 [place] BACKACHE COMMUNTIY HOSPITA V7283 OTHER 02-20-2015 [place] SPECIFIED COMMUNTIY PRE-OPERATI HOSPITA VE EXAMINATION 2875 UNSPECIFIED 02-15-2015 [facility] P PENIA 7932 NONSPC ABN 02-10-2015 [place] [facility] SERV RAD&OTH FOUNDATION EXAM OTH INTRTHOR ORGN V7282 PRE-OPERATI 02-10-2015 [place] [facility] VE SERV RESPIRATORY FOUNDATION EXAMINATION 5930 NEPHROPTOSI 02-09-2015 [place] Reddy [facility] P 7802 SYNCOPE AND 02-01-2015 [facility] MEDICAL G 4139 OTHER AND 01-18-2015 [facility] UNSPECIFIED [facility] P PECTORIS 99160 SHORTNESS 01-18-2015 [facility] MEDICAL IMAGING ASS 15826 OTHER CHEST 01-18-2015 [place] PAIN [facility] P 51010 OSTEOARTHRO 12-30-2014 [facility] NGO S INVLV MX SITES [place] 59071 PAIN IN 11-09-2014 [place] JOINT, MEDICAL SHOULDER IMAGING ASS REGION V5832 ENCOUNTER 11-09-2014 [place] FOR REMOVAL [facility] P 98639 PILAR CYST 11-02-2014 [facility] 05280 UNSPECIFIED 10-06-2014 [facility]Y INFECTION PHYS IN CCE & UNS SITE 7840 HEADACHE 10-06-2014 [facility] 48353 ATROPHIC 09-16-2014 [place] GASTRITIS COMMUNITY WITHOUT HOSPITA MENTION OF HEMORRHAGE 67664 OTHER SPEC 09-16-2014 [facility] WITHOUT MENTION HEMORRHAGE 36404 DYSPHAGIA 09-16-2014 [place] UNSPECIFIED ANESTHESIA GROUP PS 6869 UNSPEC 08-17-2014 [facility] LOCAL INFECTION SKIN&SUBCUT ANEOUS TISSUE V7284 UNSPECIFIED 08-09-2014 [facility] PRE-OPERATI INC VE EXAMINATION 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 7019 UNSPECIFIED 08-04-2014 [facility] HYPERTROPHI C&ATROPHIC CONDITION SKIN 22421 OTHER 08-04-2014 [facility] SEBORRHEIC KERATOSIS 7851 PALPITATION 08-04-2014 [facility] MEDICAL G V7281 PRE-OPERATI 07-21-2014 [facility] CARDIOV[facility]CU MEDICAL G LAR EXAMINATION 18650 PAINFUL 07-05-2014 [facility] RESPIRATION V771 SCREENING 05-24-2014 [facility] DIABETES MELLITUS 470 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 4779 ALLERGIC 03-17-2014 [facility] RHINITIS CAUSE UNSPECIFIED 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 E849.8 E849.8 12-31-2013 [place] ACCIDENT IN [facility] E885.9 E885.9 FALL 12-31-2013 [place] [facility], Hospital TRIPPING, OR STUMBLING NEC V14.0 V14.0 12-31-2013 [place] HX-PENICILL [facility] IN ALLERGY Hospital V14.1 V14.1 12-31-2013 [place] HX-ANTIBIOT [facility] ALLERGY Hospital NEC V01.6 V01.6 01-11-2013 [place] VENEREAL [facility] DIS CONTACT Hospital V0481 NEED 01-06-2009 [facility] PROPHYLACTI HE[facility] C CENTRAL VACCINATION BANK ACCT &INOCULATIO N FLU 01168 PAIN IN 01-04-2009 [place] [facility] PELVIC [facility] REG[facility] ASSOC[facility] THIGH 10972 DISPLCMT 01-04-2009 [place] LUMBAR MEDICAL INTERVERT 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 8460 SPRAIN AND 01-04-2009 [facility] LUMBOSACRAL [facility] 8472 LUMBAR 01-04-2009 [place] [facility] STRAIN INC 64435 CONTUSION 01-04-2009 [facility] BACK BIlprospekt 80571 CONTUSION 01-04-2009 [facility] BUTTOCK BIlprospekt E8490 PLACE OF 01-04-2009 [place] OCCURRENCE, MEDICAL HOME IMAGING ASSOCIATES E8859 FALL FROM 01-04-2009 [place] OTHER MEDICAL SLIPPING IMAGING TRIPPING OR ASSOCIATES STUMBLING B34.9 VIRAL INFECTION, UNSPECIFIED G43.909 MIGRAINE, UNSP, NOT INTRACTABLE , WITHOUT STATUS MIGRAINOSUS J34.9 UNSPECIFIED DISORDER OF NOSE AND NASAL SINUSES J45.909 UNSPECIFIED ASTHMA, UNCOMPLICAT ED M25.512 PAIN IN LEFT SHOULDER M79.604 PAIN IN RIGHT LEG N39.0 URINARY TRACT INFECTION, SITE NOT SPECIFIED R07.89 OTHER CHEST PAIN R07.9 CHEST PAIN, UNSPECIFIED R09.81 NASAL CONGESTION R10.9 UNSPECIFIED ABDOMINAL PAIN R11.0 NAUSEA R20.2 PARESTHESIA OF SKIN R20.9 UNSPECIFIED DISTURBANCE S OF SKIN SENSATION R30.0 DYSURIA R51 HEADACHE R53.1 WEAKNESS R79.89 OTHER SPECIFIED ABNORMAL FINDINGS OF BLOOD CHEMISTRY R94.5 ABNORMAL RESULTS OF LIVER FUNCTION STUDIES [...] I-RASH Intermediate Clinical Alert Notifications Alert Asthma: history of ED visit in the last 365 days Member has >/= 10 ED visits within the past 365 days Medications Na ND Rx Da Fi Fi Am Da Di Ph RX Ph St me C No te ll ll ou ys ag ar # ys at rm s nt no ma ic us Or Da si cy ia de te s n re d BU 00 09 10 90 30 00 CL Ac SP 11 -1 -1 .0 00 IN ti IR 51 5- 3- 00 00 IC ve ON 69 20 20 44 E 10 17 17 28 PH HC 3 38 AR L MA 10 CY MG TA BL ET PA 31 09 10 60 30 00 CL Ac NT 72 -1 -1 .0 00 IN ti OP 20 4- 3- 00 00 IC ve RA 71 20 20 44 ZO 39 17 17 25 PH LE 0 85 AR MA SO CY D DR 40 MG TA B VE 00 09 10 18 16 00 CL Ac NT 17 -1 -0 .0 00 IN ti OL 30 2- 6- 00 00 IC ve IN 68 20 20 44 22 17 17 22 PH HF 0 61 AR A MA 90 CY MC G IN CARTY LE R 58 09 10 30 30 00 CL Ac TA 48 -1 -0 .0 00 IN ti IN 70 1- 6- 00 00 IC ve N 02 20 20 44 D3 37 17 17 20 PH 1 85 AR 1, MA 00 CY 0 UN IT TA BL ET OM 00 09 09 60 30 00 CL Ac EP 78 -0 -2 .0 00 IN ti RA 12 6- 9- 00 00 IC ve ZO 23 20 20 42 LE 41 17 17 89 PH [address] MA CY 40 MG CA PS UL E AZ 51 09 09 30 30 00 CL Ac EL 99 -0 -2 .0 00 IN ti 10 6- 9- 00 00 IC ve TI 81 20 20 43 NE 40 17 17 38 PH 3 80 AR 0. MA 1% CY (1 37 MC G) SP RY OX 16 09 09 30 30 00 CL Ac YB 72 -0 -2 .0 00 IN ti UT 90 6- 9- 00 00 IC ve YN 31 20 20 43 IN 80 17 17 09 PH 1 28 AR CL MA CY ER 10 MG TA BL ET LI 00 09 09 30 30 00 CL Ac NZ 45 -0 -2 .0 00 IN ti ES 61 6- 9- 00 00 IC ve S 20 20 20 42 14 13 17 17 47 PH 5 0 82 AR MC MA G CY CA PS UL E RI 13 09 09 30 30 00 CL Ac SP 66 -0 -2 .0 00 IN ti ER 80 6- 9- 00 00 IC ve ID 03 20 20 43 ON 66 17 17 39 PH E 0 67 AR 0. MA 5 CY MG TA BL ET RA 64 09 09 60 30 00 CL Ac NI 38 -0 -2 .0 00 IN ti TI 00 6- 9- 00 00 IC ve DI 80 20 20 44 NE 30 17 17 16 PH 8 57 AR 15 MA 0 CY MG TA BL ET FL 50 09 09 16 30 00 CL Ac UT 38 -0 -2 .0 00 IN ti IC 30 6- 9- 00 00 IC ve 70 20 20 42 ON 01 17 17 79 PH E 6 94 AR VT MA OP CY 50 MC G SP RA Y ME 59 09 09 10 [address] 76 -0 -2 .0 00 IN ti OX 23 6- 9- 00 00 IC ve YP 74 20 20 42 RO 20 17 17 94 PH GE [address] MA ER CY ON E 10 MG TA B VE 68 09 09 30 30 00 CL Ac NL 38 -0 -2 .0 00 IN ti AF 20 6- 9- 00 00 IC ve AX 03 20 20 42 IN 40 17 17 89 PH E 6 94 AR HC MA L CY ER 37 .5 MG CA P GA 45 08 09 90 30 00 CL Ac BA 96 -2 -2 .0 00 IN ti PE 30 8- 2- 00 00 IC ve NT 55 20 20 44 IN 55 17 17 07 PH 0 99 AR 10 MA 0 CY MG CA PS UL E CY 43 08 09 28 14 00 CL Ac CL 54 -2 -2 .0 00 IN ti OB 70 8- 2- 00 00 IC ve EN 39 20 20 43 ZA 91 17 17 63 PH VT 0 09 AR IN MA E CY 5 MG TA BL ET MO 29 08 09 30 30 00 CL Ac NT 30 -2 -2 .0 00 IN ti EL 00 8- 2- 00 00 IC ve UK 22 20 20 41 01 17 17 09 PH T 0 31 AR SO MA D CY 10 MG TA BL ET LO 45 08 09 30 30 00 CL Ac RA 80 -2 -2 .0 00 IN ti TA 20 8- 2- 00 00 IC ve DI 65 20 20 42 NE 08 17 17 35 PH 7 22 AR 10 MA CY MG TA BL ET LO 68 08 09 30 30 00 CL Ac VA 18 -2 -2 .[address] 00 8- 2- 00 00 IC ve AT 46 20 20 43 IN 80 17 17 34 PH 1 26 AR 20 MA CY MG TA BL ET 51 08 09 4. 28 00 CL Ac T 99 -2 -2 00 00 IN ti D2 10 8- 2- 0 00 IC ve 60 20 20 44 1. 40 17 17 07 PH 25 1 94 AR MA MG CY (5 0, 00 0 UN IT ) KE 00 08 09 6. 3 00 CL Ac TO 09 -2 -1 00 00 IN ti RO 30 2- 5- 0 00 IC ve LA 31 20 20 44 C 40 17 17 02 PH 10 1 27 AR MA MG CY TA BL ET RI 13 08 09 30 30 00 CL Ac SP 66 -1 -0 .0 00 IN ti ER 80 0- 8- 00 00 IC ve ID 03 20 20 43 ON 66 17 17 39 PH E 0 67 AR 0. MA 5 CY MG TA BL ET ME 59 08 09 10 [address] 76 -1 -0 .0 00 IN ti OX 23 0- 8- 00 00 IC ve YP 74 20 20 42 RO 20 17 17 94 PH GE [address] MA ER CY ON E 10 MG TA B VE 68 08 09 30 30 00 CL Ac NL 38 -1 -0 .0 00 IN ti AF 20 0- 8- 00 00 IC ve AX 03 20 20 42 IN 40 17 17 89 PH E 6 94 AR HC MA L CY ER 37 .5 MG CA P OM 00 08 09 60 30 00 CL Ac EP 78 -1 -0 .0 00 IN ti RA 12 0- 8- 00 00 IC ve ZO 23 20 20 42 LE 41 17 17 89 PH [address] MA CY 40 MG CA PS UL E RA 64 08 09 60 30 00 CL Ac NI 38 -1 -0 .0 00 IN ti TI 00 0- 8- 00 00 IC ve DI 80 20 20 42 NE 30 17 17 65 PH 8 91 AR 15 MA 0 CY MG TA BL ET LI 00 08 09 30 30 00 CL Ac NZ 45 -1 -0 .0 00 IN ti ES 61 0- 8- 00 00 IC ve S 20 20 20 42 14 13 17 17 47 PH 5 0 82 AR MC MA G CY CA PS UL E VT 00 08 09 8. 2 00 CL Ac OM 59 -1 -0 00 00 IN ti ET 15 6- 8- 0 00 IC ve CARTY 30 20 20 43 ZI 71 17 17 96 PH NE 0 36 AR MA 25 CY MG TA BL ET VE 00 08 09 18 16 00 CL Ac NT 17 -1 -0 .0 00 IN ti OL 30 0- 8- 00 00 IC ve IN 68 20 20 43 22 17 17 64 PH HF 0 67 AR A MA 90 CY MC G IN CARTY LE R FL 50 08 09 16 30 00 CL Ac UT 38 -1 -0 .0 00 IN ti IC 30 0- 8- 00 00 IC ve 70 20 20 42 ON 01 17 17 79 PH E 6 94 AR VT MA OP CY 50 MC G SP RA Y OX 16 08 09 30 30 00 CL Ac YB 72 -1 -0 .0 00 IN ti UT 90 0- 8- 00 00 IC ve YN 31 20 20 43 IN 80 17 17 09 PH 1 28 AR CL MA CY ER 10 MG TA BL ET ON 67 08 09 10 3 00 CL Ac DA 87 -1 -0 .0 00 IN ti NS 70 0- 8- 00 00 IC ve ET 16 20 20 42 RO 93 17 17 97 PH N 0 28 AR HC MA L CY 4 MG TA BL ET AZ 51 08 09 30 30 00 CL Ac EL 52 -1 -0 .0 00 IN ti 50 0- 8- 00 00 IC ve TI 29 20 20 43 NE 40 17 17 38 PH 3 80 AR 0. MA 1% CY (1 37 MC G) SP RY CY 00 08 09 28 14 00 CL Ac CL 59 -0 -0 .0 00 IN ti OB 13 4- 1- 00 00 IC ve EN 25 20 20 43 ZA 60 17 17 63 PH VT 1 09 AR IN MA E CY 5 MG TA BL ET LO 68 08 09 30 30 00 CL Ac VA 18 -0 -0 .[address] 00 4- 1- 00 00 IC ve AT 46 20 20 43 IN 80 17 17 34 PH 1 26 AR 20 MA CY MG TA BL ET 64 08 09 4. 28 00 CL Ac T 38 -0 -0 00 00 IN ti D2 00 4- 1- 0 00 IC ve 73 20 20 42 1. 70 17 17 35 PH 25 6 24 AR MA MG CY (5 0, 00 0 UN IT ) LO 45 08 09 30 30 00 CL Ac RA 80 -0 -0 .0 00 IN ti TA 20 4- 1- 00 00 IC ve DI 65 20 20 42 NE 08 17 17 35 PH 7 22 AR 10 MA CY MG TA BL ET MO 29 08 09 30 30 00 CL Ac NT 30 -0 -0 .0 00 IN ti EL 00 4- 1- 00 00 IC ve UK 22 20 20 41 01 17 17 09 PH T 0 31 AR SO MA D CY 10 MG TA BL ET VT 59 08 09 10 5 00 RI Ac ED 74 -0 -0 .0 00 TE ti NI 60 8- 1- 00 01 ve SO 17 20 20 19 AI NE 50 17 17 46 D 6 80 PH 20 AR MA MG CY TA #3 BL 93 ET 8 BU 16 08 09 90 30 00 CL Ac SP 72 -0 -0 .0 00 IN ti IR 90 4- 1- 00 00 IC ve ON 20 20 20 43 E 20 17 17 84 PH HC 1 99 AR L MA 10 CY MG TA BL ET NY 60 07 08 [address] 43 -3 -2 0. 00 TE ti AT 20 0- 5- 00 01 ve IN 53 20 20 0 19 AI 71 17 17 37 D 10 6 30 PH 0, AR 00 MA 0 CY UN IT #3 /M 93 L 8 GOMEZ SP GA 45 08 08 90 30 00 CL Ac BA 96 -0 -2 .0 00 IN ti PE 30 1- 5- 00 00 IC ve NT 55 20 20 42 IN 55 17 17 89 PH 0 93 AR 10 MA 0 CY MG CA PS UL E CE 69 07 08 30 10 00 CL Ac PH 54 -2 -2 .0 00 IN ti AL 30 7- 5- 00 00 IC ve EX 10 20 20 43 IN 25 17 17 79 PH 0 68 AR 50 MA 0 CY MG CA PS UL E FL 00 07 08 10 30 00 CL Ac OV 17 -1 -1 .5 00 IN ti EN 30 9- 1 99 00 IC ve T 71 20 20 43 HF 82 17 17 73 PH A 0 72 AR 44 MA CY MC G IN CRATY LE R LI 00 07 08 30 30 00 CL Ac NZ 45 -1 -0 .0 00 IN ti ES 61 2- 4- 00 00 IC ve S 20 20 20 42 14 13 17 17 47 PH 5 0 82 AR MC MA G CY CA PS UL E PE 00 07 08 59 1 00 [...] CY MC G IN CARTY LE R RI 13 07 08 30 30 00 [...] MA 0 CY MG TA BL ET FL 50 07 08 16 30 00 CL Ac UT 38 -0 -0 .0 00 IN ti IC 30 7- 4- 00 00 IC ve 70 20 20 42 ON 01 17 17 79 PH E 6 94 AR VT MA OP CY 50 MC [...] 43 ZA 60 17 17 63 PH VT 1 09 AR IN MA E CY 5 MG TA BL ET MO 27 07 08 30 30 00 [...] 43 RA 30 17 17 61 PH IN 5 60 AR DE MA CY 10 MG TA BL ET GA 45 07 07 90 30 00 [...] 17 79 PH E 6 94 AR VT MA OP CY 50 MC [...] YL 15 2- 7- 00 01 ve VT 02 20 20 18 AI ED 20 [...] 20 MA CY MG TA BL ET HY 00 05 06 30 30 00 [...] 43 ZA 60 17 17 25 PH VT 1 00 AR IN MA E CY [...] IN ti UT 50 2- 9- 00 IC ve YN 27 20 20 43 IN 13 17 17 09 PH 7 28 AR CL MA CY ER 10 MG TA BL ET MO 27 05 06 30 30 00 CL Ac NT 24 -1 -0 .0 00 IN ti EL 10 - 9- 00 IC ve UK 01 20 [...] -0 .0 00 IN ti IC 30 00 IC ve 70 20 20 42 ON 01 17 17 79 PH E 6 94 AR VT MA OP CY 50 MC G SP RA Y BU 00 05 06 90 30 00 CL Ac SP 37 -1 -0 .0 00 IN ti IR 81 9 00 IC ve ON 15 20 20 42 E 00 17 17 82 PH HC 1 15 AR L MA 10 CY MG TA BL ET RI 13 05 06 30 30 00 CL Ac SP 66 -1 -0 .0 00 IN ti ER 80 1- 9- 00 IC ve ID 03 20 20 42 ON 66 17 17 35 PH E 0 23 AR 0. MA 5 CY MG TA BL ET AM 66 05 06 20 10 00 RI Ac OX 68 -1 -0 .0 00 TE ti -C 51 1 9- 01 ve LA 00 20 20 18 AI V 10 17 17 35 D 87 0 20 PH 5- AR 12 MA 5 CY MG #3 TA 93 BL 8 ET LO 61 05 06 30 30 00 RI Ac VA 44 -1 -0 .[address] 20 9 01 ve AT 14 20 20 18 [...] MA M CY 25 MG CA P ME 59 04 05 10 10 00 [...] CY 40 MG CA PS UL E RI 13 04 05 30 30 00 [...] 42 ZA 60 17 17 82 PH VT 1 16 AR IN MA E CY 5 MG TA BL ET FL 50 04 05 16 30 00 CL Ac UT 38 -1 -1 .0 00 IN ti IC 30 3- 2- 00 00 IC ve 70 20 20 42 ON 01 17 17 79 PH E 6 94 AR VT MA OP CY 50 MC [...] 10 MA CY MG TA BL ET CE 69 04 05 20 10 00 [...] CY ER 30 MG TA BL ET BU 00 03 [...] CY ER 37 .5 MG CA P GA 45 03 03 90 30 00 [...] L CY 4 MG TA BL ET VT 65 03 03 20 5 00 [...] CY 75 MG CA PS UL E CL 63 03 03 21 7 00 [...] #3 93 7. 8 5- 32 5 LO 45 02 03 30 30 00 [...] MA 5 CY MG TA BL ET ET 62 03 03 20 10 00 CL Ac OD 55 -0 -2 .0 00 IN ti OL 90 1- 4- 00 00 IC ve AC 25 20 20 42 00 17 17 39 PH 20 1 19 AR 0 MA MG CY CA PS UL E RA 00 02 03 60 30 00 [...] L CY 4 MG TA BL ET DI 16 02 [...] E CY 5 MG TA BL ET TE 51 02 03 20 [...] MG #3 TA 93 BL 8 ET VT 59 02 03 10 5 00 [...] #3 CA 93 PS 8 UL E OM 60 01 02 30 [...] G SP RA Y BU 00 02 02 90 30 00 [...] 5 CY MG TA BL ET 64 01 02 4. 28 00 CL Ac T 38 -2 -2 00 00 IN ti D2 00 5- 4- 0 00 IC ve 73 20 20 41 1. 70 17 17 47 PH 25 6 11 AR MA MG CY (5 0, 00 0 UN IT ) CY 00 02 02 14 7 00 CL Ac CL 59 -0 -2 .0 00 IN ti OB 15 1- 4- 00 00 IC ve EN 65 20 20 42 ZA 81 17 17 08 PH VT 0 66 AR IN MA E CY 10 MG TA BL ET GE 60 01 [...] 0 MA MG CY TA BL ET PO 51 12 01 25 15 00 CL Ac LY 99 -2 -2 5. 00 IN ti ET 10 7- 7- 00 00 IC ve HY 45 20 20 0 41 LE 75 16 17 74 PH NE 8 22 AR MA GL CY YC OL 33 50 PO WD OM 60 12 01 30 30 00 [...] ng CE 42 14 er TA 1 IN Ac N- ti CA ve FF 50 [...] ti 0 ve MG TA BL ET ME 59 02 [...] 20 ZA 70 09 09 PH IN VT 6 AR CH IN MA AE [...] ent ider Refu lity Give sed n IIV4 09-0 158 JAZMYN No LICK 7-20 ENCE ING VACC 17 VALL EY SPLI INTE T RNAL VIRU MED S 0.5 ML DOS FOR IM USE TDAP 10-0 115 WEDC No WEDC 7-20 [...] complet Bld 017 .0 ed Auto 11:25 CBC (hemogram) Bld Auto (12-05-2016 11:40) WBC 4.70 3.50-10 complet nRBC 017 10*3/mm .80 ed cor # 11:40 3 Bld RBC # 4.66 3.89-5. complet Bld 017 10*6/mm 14 ed Auto 11:40 3 Hgb 14.2 11.5-15 complet Bld-mCn 017 g/dL .5 ed c 11:40 Hct VFr 41.6 % 34.5-44 complet Bld 017 .0 ed Auto 11:40 MCV RBC 89.3 fL 80.0-99 complet Auto 017 .0 ed 11:40 MCH RBC 30.5 pg 27.0-31 complet Qn 017 .0 ed Auto 11:40 MCHC 34.1 32.0-36 complet RBC 017 g/dL [...] Hgb A1c Bld (12-05-2016 11:40) Comment: The [place] [employer] recommends maintenance of Hemoglobin A1C [...] ed NOGEN - 17:40 DIPSTIC K URINE -18-2 NEGATIV NEG complet NITRATE 013 E ed [...] Procedures Procedure DOS Code Location Performer Comment 03242 [place] [facility]DROXY [facility] INCLUDES INC INC FRACTIONS IF PERFORMED COLLECTIO 46103 [place] [facility] N VENOUS 7 [facility] BLOOD INC INC VENIPUNCT URE IM ADM 92493 [place] [facility] PRQ ID 7 VALLEY SUBQ/IM INTERNAL NJXS 1 MED VACCINE BLOOD 51586 [place] [facility] COUNT 7 [facility] COMPLETE INC INC AUTO&AUTO DIFRNTL WBC COMPREHEN 28243 [place] [facility] SIVE 7 [facility] METABOLIC INC INC PANEL IIV4 VACC 59013 [place] [facility] SPLIT 7 VALLEY VIRUS 0.5 INTERNAL ML DOS MED FOR IM USE LIPID 55459 [place] [facility] PANEL 7 [facility] INC INC UNCLASSIF J3490 [place] [facility] IED DRUGS 7 [place] [address] [place] [facility] MAXILLOFA 7 [facility] CIAL W/[place] [address] [place] [facility] HEAD/[facility]RAI 7 [facility] N W/O INC INC CONTRAST MATERIAL THERAPEUT 43609 [place] [facility] IC 7 [facility] PROPHYLAC INC INC TIC/DX INJECTION SUBQ/IM GROUND A0425 [facility] 7 AMBULANCE AMBULANCE PER SERVICE SERVICE STATUTE MILE AMBULANCE A0429 [facility] SERVICE 7 AMBULANCE AMBULANCE BLS SERVICE SERVICE EMERGENCY TRANSPORT SCREENING G0202 [facility] 7 MEDICAL MAMMOGRAP IMAGING HY WILBERT ASS INCL CAD WHEN PERFORMD SCREENING 97320 [place] [facility] 7 [facility] MAMMOGRAP INC INC HY BI 2-VIEW BREAST INC CAD NERVE 96454 [facility] CONDUCTIO 7 N N STUDIES NEUROLOGY 9-10 STUDIES NEEDLE 61868 [facility] EMG EA 7 N EXTREMTY NEUROLOGY W/PARASPI NL AREA COMPLETE NEEDLE 09229 [facility] EMG EA 7 N EXTREMTY NEUROLOGY W/PARASPI NL AREA COMPLETE NERVE 18318 [facility] CONDUCTIO 7 N N STUDIES NEUROLOGY 9-10 STUDIES OPHTH 93278 [employer] MEDICAL 7 XM&EVAL COMPRHNSV ESTAB PT 1/> ESOPHAGEA 30766 MOSQUE MOSQUE L 7 [facility] STUDY W/INTERP& RPT BLOOD 43176 [place] HARE COUNT 7 MEM HOS[facility] COMPLETE INC AUTO&[place] [address] [facility] ABDOMEN & 7 MEDICAL PELVIS IMAGING W/O ASS CONTRAST MATERIAL URNLS DIP 18566 [place] [facility] 7 [facility] STICK/TAB INC INC LET REAGENT AUTO MICROSCOP Y URINE 35329 [place] [facility] 7 [facility] TEST INC [place] V[place] [address] [place] [facility] AMYLASE 7 [place] [address] [place] [facility] LIPASE 7 [facility] INC INC COMPREHEN 23413 [place] [facility] SIVE 7 [facility] METABOLIC INC INC PANEL UNCLASSIF J3490 [place] [facility] IED DRUGS 7 [facility] INC INC NITRIC 13366 [facility] OXIDE 7 [facility] [place] GAS CO DETERMINA TION SPMTRY 95728 [facility] W/VC 7 [facility] [employer] [place] Y ABHI CO W/WO MXML VOL VNTJ SPACR A4627 [place] MED MT MED BAG/RESRV 7 EQUIPMENT EQUIPMENT OR W/WO INC INC MASK W/METRD DOSE INHAL DEMO&/VIPUL 35934 [facility] L OF PT 7 [facility] [place] AERSL CO GEN/NEB/I NHLR/IP XTRNL ECG 50813 [place] [facility] & 48 HR 7 MEM [facility] RECORDING INC INC RADIOLOGI 93080 [facility] C 7 MEDICAL EXAMINATI IMAGING ON KNEE 3 ASS VIEWS EXTERNAL 92551 [place] [facility] ECG 7 [facility] SCANNING INC INC ANALYSIS REPORT XTRNL ECG 61035 [place] MATUTE 7 [facility] S RHYTHM P W/I&R UP TO 48 HRS COMPREHEN 54371 [place] [facility] SIVE 7 [facility] METABOLIC INC INC PANEL ECG 06967 SMILEY PASCUAL ROUTINE 7 PHYSICIAN ECG S, PLLC W/LEAST 12 LDS I&R ONLY ECG 02317 [place] [facility] ROUTINE 7 [facility] ECG INC INC W/LEAST 12 LDS TRCG ONLY W/O I&[place] [address] [place] [facility] TROPONIN 7 [facility] QUANTITAT INC INC SABIHA CREATINE 55055 [place] [facility] KINASE MB 7 [facility] FRACTION INC INC ONLY CREATINE 31552 [place] [facility] KINASE 7 [facility] TOTAL INC INC ANES 13747 [facility] UPPER GI 7 MAINE ENDOSCOPY ANESTHESI PROXIMAL A TO DUODENUM EGD 33338 MOSQUE MOSQUE TRANSORAL 7 PHYS SURG PHYS SURG BIOPSY CTR CTR SINGLE/MU LTIPLE ECG 93116 MONALISA BENSON ROUTINE 7 HEART ECG SPECIALIS W/LEAST TS, 12 LDS I&R ONLY ECG 74583 SMILEY ARMIJO ROUTINE 7 PHYSICIAN ECG S, PLLC W/LEAST 12 LDS I&R ONLY COMPREHEN 32581 [place] [facility] SIVE 7 [facility] METABOLIC INC INC PANEL ECG 61974 [place] [facility] ROUTINE 7 [facility] ECG INC INC W/LEAST 12 LDS TRCG ONLY W/O I&[place] [address] [place] [facility] TROPONIN 7 [facility] QUANTITAT INC INC SABIHA ECG 72689 MOSQUE MOSQUE ROUTINE 7 [facility] ECG [facility] W/LEAST 12 LDS TRCG ONLY W/O I&R COLLECTIO 34919 MOSQUE MOSQUE N VENOUS 7 [facility] BLOOD [facility] [place] [address] [facility], PICKLESIM SURG 7 LLC ER JR PATHOLOGY GROSS&BRYCE ROSCOPIC EXAM COLPOSCOP 38588 [facility] KAM Mercedes CERVIX 7 PHYSICIAN BX CERVIX S GROUP & [place] [address] MOSQUE MOSQUE TRACT 7 [facility] UPPER [facility] W/WO DELAYED IMAGES W/KUB UNCLASSIF J3490 [place] [facility] IED DRUGS 7 [place] [address] [place] [facility] HEAD/BRAI 7 [facility] N W/O INC INC CONTRAST MATERIAL COMPREHEN 84835 [place] [facility] SIVE 7 [facility] [address] [place] [facility] GAMMAGLOB 7 [facility] ULIN IGA INC INC IGD IGG IGM EACH BLOOD 73633 [place] [facility] COUNT 7 [facility] COMPLETE INC INC AUTO&AUTO DIFRNTL WBC COLLECTIO 46790 [place] [facility] N VENOUS 7 [facility] BLOOD INC INC VENIPUNCT URE GONADOTRO 82890 [place] [facility] PIN 7 [facility] FOLLICLE INC INC STIMULATI NG HORMONE GONADOTRO 12879 [place] [facility] PIN 7 [facility] LUTEINIZI INC INC NG HORMONE LIPID 70852 [place] [facility] PANEL 7 [facility] INC INC BLOOD 37969 [place] [facility] COUNT 7 [facility] COMPLETE INC INC AUTO&AUTO DIFRNTL WBC URNLS DIP 75104 [place] [facility] 7 [facility] STICK/TAB INC INC LET REAGENT AUTO MICROSCOP Y COMPREHEN 26111 [place] [facility] SIVE 7 [facility] METABOLIC INC INC PANEL UNCLASSIF J3490 [place] [facility] IED DRUGS 7 [place] [address] [place] [facility] INFUSION 7 [facility] THERAPY INC [place] [address] [place] [facility] INFUSION 7 [facility] THERAPY/P INC INC ROPHYLAXI S /DX 1ST TO 1 HR UNCLASSIF [id number] [place] [facility] IED DRUGS 7 [facility] INC INC NJX 45714 YVETTE BUX DX/THER 7 MD RHIANNON, SBST PSC INTRLMNR LMBR/SAC W/IMG GDN IADNA 22250 [facility] HUMAN 7 LLC PAPILLOMA VIRUS HIGH-RISK TYPES CYTP 93857 [facility] CERVICAL/ 7 LLC VAGINAL REQ INTERP PHYSICIAN CYTP C/V 59223 [facility], [facility] AUTO THIN 7 LLC LYR PREPJ SCR MNL RESCR PHYS URNLS DIP 77203 [facility] HUMPHREY 7 PHYSICIAN STICK/TAB S GROUP LET RGNT NON-AUTO W/O MICRSCP ECG 38741 [place] [facility] ROUTINE 7 [facility] ECG INC INC W/LEAST 12 LDS TRCG ONLY W/O I&R BLOOD 97984 [facility] [facility] COUNT 7 [facility] COMPLETE INC INC AUTO&AUTO DIFRNTL WBC PROTEIN 52332 [facility] [facility] ELECTROPH 7 [facility] ORETIC INC INC FRACTJ&QU ANTJ SERUM COLLECTIO 69112 [facility] [facility] N VENOUS 7 [facility] BLOOD INC INC VENIPUNCT URE ANTINUCLE 55266 [place] [facility] AR 7 [facility] ANTIBODIE INC INC S SANNA COMPREHEN 75719 [facility] [facility] SIVE 7 [facility] METABOLIC INC INC PANEL URNLS DIP 98321 [facility] [facility] STICK/TAB INC INC LET RGNT AUTO W/O MICROSCOP Y CREATININ 30972 [facility] [facility] E BLOOD 7 [facility] INC INC COLLECTIO 52651 [place] [facility] N VENOUS 7 [facility] [place]LO[place] [address] [facility] [facility] UREA [facility] NITROGEN INC INC QUANTITAT SABIHA CT THORAX 78191 [facility] 7 MEDICAL W/CONTRAS IMAGING T ASS MATERIAL UNCLASSIF J3490 [place] [facility] I[facility] DRUGS 7 [facility] INC INC ECG 41068 [facility] ROUTINE 7 PHYSICIAN ECG S GROUP W/LEAST 12 LDS I&R ONLY NJX 90538 YVETTE DUFF DX/THER 7 MD RHIANNON, AGT PVRT PSC FACET JT LMBR/SAC 1 LEVEL NJX 49692 YVETTE DUFF DX/THER 7 MD RHIANNON, AGT PVRT PSC FACET JT LMBR/SAC 2ND LEVEL ECG 31317 [place] [facility] ROUTINE 7 [facility] ECG INC INC W/LEAST 12 LDS TRCG ONLY W/O I&R NJX 74050 YVETTE DUFF DX/THER 7 MD RHIANNON, AGT PVRT PSC FACET JT LMBR/SAC 3+ [place] [address] [place] [facility] TROPONIN 7 [facility] QUANTITAT INC INC SABIHA RADEX 33429 [place] [facility] ABDOMEN 7 [facility] COMPL INC INC W/DCBTS&/ ERC VIEWS ECG 98760 [place] [facility] ROUTINE 7 [facility] ECG INC INC W/LEAST 12 LDS TRCG ONLY W/O I&R THER 49182 [place] T[place] PROPH/DX 7 [facility] NJX IV INC INC PUSH SINGLE/1S T SBST/DRUG BLOOD 04282 [place] [facility] COUNT 7 [facility] COMPLETE INC INC AUTO&[place] [address] [facility] [facility] LIPASE 7 [place] [address] [facility] AMYLASE 7 [facility] INC INC CREATINE 76261 [facility] [facility] KINASE MB 7 [facility] FRACTION INC INC ONLY CREATINE 07788 [facility] [facility] KINASE 7 [facility] TOTAL INC INC COMPREHEN 53530 [place] [facility] SIVE 7 [facility] METABOLIC INC INC PANEL ECG 83475 [place] MAT[place] ROUTINE 7 [facility] W/LEAST P 12 LDS I&R ONLY THERAPEUT 06850 [place] [facility] IC 7 [facility] INJECTION INC INC IV PUSH EACH NEW DRUG UNCLASSIF J3490 [place] [facility] IED DRUGS 7 [facility] INC INC ECG 79428 [facility] ROUTINE 7 PHYSICIAN ECG S GROUP W/LEAST 12 LDS I&R ONLY ECG 13263 [place] [facility] ROUTINE 7 [facility] ECG INC INC W/LEAST 12 LDS TRCG ONLY W/O I&R ECG 14590 [facility] ROUTINE 7 PHYSICIAN ECG S GROUP W/LEAST 12 LDS I&R ONLY XTRNL ECG 10669 [place] [facility] & 48 HR 7 [facility] RECORDING INC INC ECG 08328 [facility] ROUTINE 7 PHYSICIAN ECG S, PLLC W/LEAST 12 LDS I&R ONLY AMB A0427 [facility] SERVICE 7 AMBULANCE AMBULANCE ALS SERVICE SERVICE EMERGENCY TRANSPORT LEVEL [address] [facility] C EXAM 7 PHYSICIAN CHEST 2 S, PLLC VIEWS FRONTAL&L ATERAL MRI 25369 [facility] SPINAL 7 CANAL ORTHOPAED LUMBAR ICS PSC W/O CONTRAST MATERIAL COMPREHEN 68232 [place] [facility] SIVE 7 [facility] METABOLIC INC INC PANEL ECG 98044 [place] [facility] ROUTINE 7 [facility] ECG INC INC W/LEAST 12 LDS TRCG ONLY W/O I&R BLOOD 17727 [place] [facility] COUNT 7 [facility] COMPLETE INC INC AUTO&[place] [address] [place] [facility] TROPONIN 7 [facility] QUANTITAT INC INC SABIHA CREATINE 48472 [facility] [facility] KINASE MB 7 [facility] FRACTION INC INC ONLY CREATINE 92104 [place] [facility] KINASE 7 [facility] TOTAL INC INC GROUND A0425 [facility] MILEAGE 7 AMBULANCE AMBULANCE PER SERVICE SERVICE STATUTE MILE RADEX 63268 [facility] SPINE 7 MAINE LUMBOSACR ORTHOPAED AL 2/[address] [place] [address] [facility] CERVICAL 7 MEDICAL MEDICAL SPINE W/O IMAGING IMAGING CONTRAST ASS ASS MATERIAL ECG 87237 [place] [facility] ROUTINE 7 [facility] ECG INC INC W/LEAST 12 LDS TRCG ONLY W/O I&[place] [address] MA[facility] CERRATO HEAD/BRAI 7 MEDICAL N W/O IMAGING CONTRAST ASS MATERIAL ECG 62620 [place] MAT[place] ROUTINE 7 [facility] W/LEAST P 12 LDS I&[place] [address] [place] [facility] FOLIC 7 [facility] ACID INC INC SERUM 25 57515 [place] [facility] HYDROXY 7 [facility] INCLUDES INC INC FRACTIONS IF PERFORMED CYANOCOBA 38184 [place] [facility] LYUBOV 7 [facility] VITAMIN INC INC B-12 COLLECTIO 95943 [place] [facility] N VENOUS 7 [facility] BLOOD INC INC VENIPUNCT URE THERAPEUT 90389 [place] [facility] IC 7 [facility] PROPHYLAC INC INC TIC/DX INJECTION SUBQ/IM UNCLASSIF J3490 [place] [facility] I[facility] DRUGS 7 [facility] INC INC UNCLASSIF J3490 [place] [facility] I[facility] DRUGS 7 [facility] INC INC URNLS DIP 73449 [place] [facility] 7 [facility] STICK/TAB INC INC LET REAGENT AUTO MICROSCOP Y DESTRUCTI 81340 LOUISA JASSO ON BENIGN 7 LESIONS UP TO 14 [place] [address] MOSQUE MOSQUE TRACT 7 [facility] W/WO DELAYED IMAGES W/KUB RADEX 12372 [place] [facility] ABDOMEN 1 7 [facility] INC INC ANTEROPOS TERIOR VIEW TX PROC G0238 [place] [facility] IMPRV 7 [facility] RESP INC INC FUNCT NOT G0237 FCE-FCE 15MIN COMPREHEN 20940 [place] [facility] SIVE 7 [facility] [place] [address] [place] [facility] INFUSION 7 [facility] THERAPY/P INC INC ROPHYLAXI S /DX 1ST TO 1 HR BLOOD 19632 [place] [facility] COUNT 7 [facility] COMPLETE INC INC AUTO&AUTO DIFRNTL WBC RAD EXP G9500 MA[facility] CERRATO INDICES/E 7 MEDICAL XP TM & IMAGING NUMB ASS FLUORO IMAGES DOC RADEX 58889 [place] [facility] ESOPHAGUS 7 [facility] INC INC INJECTION J1100 MOSQUE MOSQUE [address] [place] [address] DEXAMETHO [facility] SONE SODIUM PHOSPHATE 1 MG INJECTION J1170 MOSQUE MOSQUE [address] [place] [address] HYDROMORP [facility] KURTIS UP TO 4 MG INJECTION J0330 MOSQUE MOSQUE [address] [place] [address] SUCCINYLC [facility] HOLINE CHLORIDE UP TO 20 MG INJECTION J2405 MOSQUE MOSQUE [address] [place] [address] ONDANSETR [facility] ON HCL PER 1 MG ANES 98448 [facility] INTRAPERI 7 MAINE TONEAL ANESTHESI UPPER A ABDOMEN W/LAPS NOS INJECTION J1650 MOSQUE MOSQUE [address] [place] [address] ENOXAPARI [facility] N SODIUM 10 MG INJECTION J2704 MOSQUE MOSQUE PROPOFOL [address] [place] [address] 10 MG [facility] INJECTION J2710 MOSQUE MOSQUE [address] [place] [address] NEOSTIGMI [facility] NE METHYLSUL FATE UP TO 0.5 MG INJECTION J3010 MOSQUE MOSQUE FENTANYL [address] [place] [address] CITRATE [facility] 0.1 MG LAPS RPR 38415 MOSQUE GARCIA PARAESPHG 7 HEALTH L HRNA MEDICAL INCL GROUP FUNDPLSTY W/O MESH ECG 71547 MOS[facility] ANNA ROUTINE 7 HEALTH ECG MEDICAL W/LEAST GROUP 12 LDS I&R ONLY BLOOD 51807 MOSQUE MOSQUE COUNT 7 HEALTH HEALTH COMPLETE [facility] AUTOMATED ECG 82589 MOSQUE MOSQUE ROUTINE 7 [facility] ECG [facility] W/LEAST 12 LDS TRCG ONLY W/O I&R GLUCOSE 53095 MOSQUE MOSQUE QUANTITAT 7 [facility] SABIHA BLOOD [facility] XCPT REAGENT STRIP HEMOGLOBI 40174 MOSQUE MOSQUE N 7 [facility] GLYCOSYLA [facility] LANEY A1C COLLECTIO 95293 MOSQUE MOSQUE N VENOUS 7 [facility] BLOOD [facility] [place] [address] [facility] [facility] LIPASE 6 [place] [address] [facility] [facility] AMYLASE 6 [facility] INC INC RADEX 64761 [facility] ABDOMEN 6 MEDICAL MEDICAL COMPL IMAGING IMAGING W/DCBTS&/ ASS ASS ERC VIEWS BLOOD 82840 [place] [facility] COUNT 6 [facility] COMPLETE INC INC AUTO&AUTO DIFRNTL WBC ECG 57270 [place] [facility] ROUTINE 6 [facility] ECG INC INC W/LEAST 12 LDS TRCG ONLY W/O I&R RADIOLOGI 71421 [facility] C EXAM 6 MEDICAL MEDICAL CHEST 2 IMAGING IMAGING VIEWS ASS ASS FRONTAL&L ATERAL COMPREHEN 74271 [place] [facility] SIVE 6 [facility] METABOLIC INC INC PANEL ECG 00887 [place] CHAVEZ JR ROUTINE 6 [facility] W/LEAST P 12 LDS I&[place] [address] [place] [facility] INFUSION 6 [facility] THERAPY/P INC INC ROPHYLAXI S /DX 1ST TO 1 HR THERAPEUT 15519 [place] [facility] IC 6 [facility] INJECTION INC INC IV PUSH EACH NEW DRUG BLOOD 81232 [facility] OCCULT 6 [facility] PEROXIDAS INTERNAL E ACTV MED QUAL FECES 1 DETER GLUC BLD 78036 [place] [facility] GLUC MNTR 6 [facility] DEV INC INC CLEARED FDA SPEC HOME USE THERAPEUT 09052 [place] [facility] IC 6 [facility] PROPHYLAC INC INC TIC/DX INJECTION SUBQ/[place] [address] [facility] [facility] HEAD/BRAI 6 [facility] N W/O INC INC CONTRAST MATERIAL RADIOLOGI 52026 [place] T[place]LEY[place] C 6 [facility] EXAMINATI INC INC ON PELVIS 1/2 VIEWS RADEX 44263 [place] [facility] SACRUM & 6 [facility] COCCYX INC INC MINIMUM 2 VIEWS RADEX 01056 [place] [facility] SPINE 6 [facility] LUMBOSACR INC INC AL MINIMUM 4 VIEWS URINE 86395 [place] [facility] 6 [facility] TEST INC INC VISUAL COLOR CMPRSN METHS BLOOD 33262 [place] [facility] COUNT 6 [facility] COMPLETE INC INC AUTO&AUTO DIFRNTL WBC IAADI 27762 [place] Z[facility]ALA INFLUENZA 6 [facility] B VIRUS INC IAADI 42502 [place] [facility] INFFLUENZ 6 [facility] [place] [address] [place] [facility] STREPTOCO 6 [facility] CCUS INC INC GROUP A RADEX 11123 [place] [facility] SINUSES 6 [facility] PARANASAL INC INC COMPL MINIMUM 3 VIEWS RADIOLOGI 53553 MA[facility] HARLEEN C EXAM 6 MEDICAL ADRIANNA CHEST 2 IMAGING VIEWS ASS FRONTAL&L ATERAL CUL BACT 46633 [place] [facility] XCPT 6 [facility] URINE INC INC BLOOD/STO OL AEROBIC ISOL DECALCIFI 44254 [facility], PICKLESIM CATION 6 [facility] [place] [place] [address] [facility], PICKLESIM SURG 6 [facility] PATHOLOGY GROSS&BRYCE ROSCOPIC EXAM ANESTHESI 48611 [facility] A NOSE & 6 ANESTH ACCESSORY OF THE SINUSES BLUE NOS ECG 99657 [place] [facility] ROUTINE 6 [facility] ECG INC INC W/LEAST 12 LDS TRCG ONLY W/O I&R ECG 04768 [place] MATUTE ROUTINE 6 [facility] W/LEAST P 12 LDS I&R ONLY BLOOD 84354 [place] [facility] COUNT 6 [facility] COMPLETE INC INC AUTO&AUTO DIFRNTL WBC ANTIBODY 31770 [place] [facility] HERPES 6 [facility] SMPLX INC INC TYPE 1 ANTIBODY 79676 [place] [facility] VIRUS NOT 6 [facility] INC INC ELSEWHERE SPECIFIFE D COMPREHEN 91469 [place] [facility] SIVE 6 [facility] METABOLIC INC INC PANEL COLLECTIO 04723 [place] [facility] N VENOUS 6 [facility] [place] [address] [place] [facility] MAXILLOFA 6 [facility] CIAL W/[place] [address] MAINE KALINA HEAD/BRAI 6 MEDICAL N W/O IMAGING CONTRAST ASS MATERIAL URINE 17067 [place] [facility] 6 [facility] TEST INC [place] [address] [place] [facility] CERVICAL 6 [facility] SPINE W/O INC INC CONTRAST MATERIAL COMPRE 52823 MAEGAN ISSA AUDIOMETR 6 JARON JARON Y THRESHOLD EVAL SP RECOGNIJ TYMPANOME 27937 MAEGAN ISSA TRY 6 JARON JARON DISTORT 06384 MAEGAN VERAON PRODUCT 6 JARON JARON EVOKED OTOACOUST IC EMISNS LIMITD PULMONARY 55951 [place] STRESS 6 MEDICAL TESTING SERV SIMPLE FOUNDATIO N GAS 68348 [place] DILUT/WAS 6 MEDICAL MEDICAL HOUT LUNG SERV SERV VOL W/WO FOUNDATIO FOUNDAT[place] DISTRIB N N VENT&[place] [address] [place] NO[place] DIFFUSING 6 MEDICAL CAPACITY SERV FOUNDATIO N ELIG CLIN G8427 STAMPING RODRIGUEZ TRI ATTSTS 6 GROUND DOC M REC FAMILY OBTD CLINI UPD/REV PT MEDS ECG 25848 [place] CHAVEZ JR ROUTINE 6 [facility] W/LEAST P 12 LDS I&R ONLY IM ADM 81773 [facility] PRQ ID 6 [facility] SUBQ/IM HLTH DEPT HLTH DEPT NJXS EA JAZZ JAZZ VACCINE TDAP 56730 [facility] VACCINE 7 6 [facility] DISTRICT YRS/> IM HLTH DEPT HLTH DEPT JAZZ JAZZ IM ADM 44937 [facility] PRQ ID 6 [facility] DISTRICT SUBQ/IM HLTH DEPT HLTH DEPT NJXS 1 JAZZ JAZZ VACCINE BLOOD 85848 [place] [facility] COUNT 6 [facility] COMPLETE INC INC AUTO&AUTO DIFRNTL WBC SYPHILIS 79750 [facility] TEST 6 DISTRICT DISTRICT NON-TREPO HLTH DEPT HLTH DEPT NEMAL JAZZ JAZZ ANTIBODY QUAL COLLECTIO 44499 [place] [facility] N VENOUS 6 [facility] BLOOD INC INC VENIPUNCT URE BLOOD 00483 [place] [facility] OCCULT 6 [facility] PEROXIDAS INC INC E ACTV QUAL FECES 1-3 SPEC SKIN TEST 43803 [facility] 6 [facility] DISTRICT TUBERCULO HLTH DEPT HLTH DEPT SIS JAZZ JAZZ INTRADERM AL XTRNL ECG 91039 [place] MATUET 6 [facility] S RHYTHM P W/I&R UP TO 48 HRS PROF SVCS 71277 ALLERGY ROSENTHAL MAR ALLG 6 PARTNERS IMMNTX X OF [place] W/PRV CO ALLGIC XTRCS NJXS RHEUMATOI 98978 [place] [facility] D FACTOR 6 [facility] QUANTITAT INC INC SABIHA ANTINUCLE 78160 [place] [facility] AR 6 [facility] ANTIBODIE INC INC S SANNA ECG 94317 [place] [facility] ROUTINE 6 [facility] W/LEAST P 12 LDS I&R ONLY SPMTRY 54098 ALLERGY ROSENTHAL MAR W/VC 6 PARTNERS EXPIRATOR OF [place] Y ABHI CO W/WO MXML VOL VNTJ GROUND A0425 REPLACED BY [facility] MILEAGE 6 AMBULANCE PATY PER SERVICE STATUTE MILE NITRIC 50797 ALLERGY ROSENTHAL MAR OXIDE 6 [facility] [place] GAS CO DETERMINA TION SEDIMENTA 04511 [place] [facility] TION RATE 6 [facility] RBC INC INC NON-AUTOM ATED BLOOD 72535 [place] [facility] COUNT 6 [facility] RETICULOC INC INC YTE AUTOMATED BLOOD 95166 [place] [facility] COUNT 6 [facility] COMPLETE INC INC AUTO&AUTO DIFRNTL WBC AMBULANCE A0429 STACY PALACI[place]ago SERVICE 6 AMBULANCE PATY BLS SERVICE EMERGENCY TRANSPORT BLOOD 76852 [place] [facility] COUNT 6 [facility] RETICULOC INC INC YTE AUTOMATED COLLECTIO 80759 [place] [facility] N VENOUS 6 [facility] BLOOD INC INC VENIPUNCT URE SEDIMENTA 16311 [place] [facility] TION RATE 6 [facility] RBC INC INC NON-AUTOM ATED BASIC 51114 [place] [facility] METABOLIC 6 [facility] PANEL INC INC CALCIUM TOTAL BONE 05520 [place] [facility] &/JOINT 6 [facility] IMAGING INC INC WHOLE BODY TECHNETIU A9503 [place] Montenegro TC-99M 6 [facility] MEDRONATE INC INC DX UP TO 30 MCI BLOOD 16665 [place] [facility] COUNT 6 [facility] COMPLETE INC INC AUTO&AUTO DIFRNTL WBC RADIOLOGI 44891 [facility] C EXAM 6 MEDICAL MEDICAL CHEST 2 IMAGING IMAGING VIEWS ASS ASS FRONTAL&L ATERAL ANES 07134 MAINE BRITTNY LOWER 6 ANESTHESI INTESTINE A GROUP PS ENDOSCOPY DISTAL DUODENUM GONADOTRO 87129 [place] [facility] PIN 6 [facility] MEM HOSP FOLLICLE INC [place] [address] [place] [facility] THYROID 6 [facility] STIMULATI INC INC NG HORMONE TSH GONADOTRO 48191 [place] [facility] PIN 6 [facility] LUTE[place] [address] [place] [facility] THYROXINE 6 [facility] TOTAL INC INC COLLECTIO 53957 [place] [facility] N VENOUS 6 [facility] H[facility] BLOOD INC INC VENIPUNCT URE THYROID 91242 [place] HORM 6 [facility] UPTK/THYR INC INC OID HORMONE BINDING RATIO RADIOLOGI 61865 [facility] C 6 MEDICAL MEDICAL EXAMINATI IMAGING IMAGING ON CHEST ASS ASS SINGLE VIEW FRONTAL ECG 27808 [place] BORDENSON ROUTINE 6 [facility] W/LEAST P 12 LDS I&R ONLY GROUND A0425 [facility] MILEAGE 6 AMBULANCE KILO PER SERVICE STATUTE MILE AMB A0427 [facility] SERVICE 6 AMBULANCE KILO ALS SERVICE EMERGENCY TRANSPORT LEVEL 1 PREPJ& 05868 ALLERGY ROSENTHAL MAR ALLERGEN 6 PARTNERS IMMUNOTHE OF TRE PEREZ CO 1/HEAD [place] [address] [place] [facility] INFUSION 6 [facility] THERAPY INC [place] [address] [place] [facility] INFUSION 6 [facility] THERAPY/P INC INC ROPHYLAXI S /DX 1ST TO 1 HR ECG 59787 [place] MAT[place] ROUTINE 6 [facility] W/LEAST P 12 LDS I&R ONLY RADIOLOGI 77960 [place] [facility] C 6 [facility] EXAMINATI INC INC ON KNEE 3 VIEWS COMPREHEN 84686 [place] [facility] SIVE 6 [facility] [place] [address] [place] [facility] HEAD/BRAI 6 [facility] N W/[place] [address] [place] [facility] TROPONIN 6 [facility] QUANTITAT INC INC SABIHA BLOOD 27319 [place] [facility] COUNT 6 [facility] COMPLETE INC INC AUTO&[place] [address] [place] [facility] CERVICAL 6 [facility] SPINE W/O INC INC CONTRAST MATERIAL ECG 17061 [place] [facility] ROUTINE 6 [facility] ECG INC INC W/LEAST 12 LDS TRCG ONLY W/O I&R CREATINE 48067 [place] [facility] KINASE MB 6 [facility] FRACTION INC INC ONLY CREATINE 37108 [place] [facility] KINASE 6 [facility] TOTAL INC INC SPACR [id number] [facility] KRASNOPOL BAG/RESRV 6 EQUIPMENT ANTONIO LAUREN OR W/WO INC MASK W/METRD DOSE INHAL SPMTRY 80379 ALLERGY ROSENTHAL MAR W/VC 6 [facility] [employer] [place] Y ABHI CO W/WO MXML VOL VNTJ PERCUTANE 46207 ALLERGY ROSENTHAL MAR OUS TESTS 6 [facility] [place] W/ALLERGE CO LEO EXTRACTS INTRACUTA 60341 ALLERGY ROSENTHAL MAR NEOUS 6 [facility] TESTS OF [place] W/ALLERGE CO LEO EXTRACTS NITRIC 49074 ALLERGY ROSENTHAL MAR OXIDE 6 [facility] [place] [address] [facility] HUMPHREY TRANSVAGI 6 PHYSICIAN MEAGAN NAL S GROUP ECG 08743 [place] CHAVEZ JR ROUTINE 6 [facility] W/LEAST P 12 LDS I&R ONLY IADNA 61030 [place] [facility] CHLAMYDIA 6 [facility] INC INC TRACHOMAT IS AMPLIFIED PROBE TQ IADNA 20337 [place] [facility] NEISSERIA 6 [facility] INC INC GONORRHOE [place] [address] [facility] [place] AND[facility] TRACT 6 RADIOLOGY RHO UPPER W/WO DELAYED IMAGES W/KUB ECG 25668 [place] MATUTE ROUTINE 6 [facility] W/LEAST P 12 LDS I&R ONLY RADIOLOGI 36106 MAINE CERRATO ALL C 6 MEDICAL EXAMINATI IMAGING ON CHEST ASS SINGLE VIEW FRONTAL ELECTROEN 05843 [facility] CEPHALOGR 6 N AM W/REC NEUROLOGY AWAKE&[place] [address] [facility] ABDOMEN & 6 MEDICAL MEDICAL PELVIS IMAGING IMAGING W/CONTRAS ASS ASS T MATERIAL ECG 50579 [place] ROUTINE 6 [facility] W/LEAST P 12 LDS I&R ONLY ELECTROEN 59053 [facility] CEPHALOGR 6 N N AM W/REC COMMUNTIY [facility]TIY [facility] WSY RADIOLOGI 45785 SEJAL CERRATO ALL C 6 MEDICAL EXAMINATI IMAGING ON CHEST ASS SINGLE VIEW FRONTAL ECG 35294 [place] CHAVE[place] JR ROUTINE 6 [facility] W/LEAST P 12 LDS I&R ONLY RADEX 23495 SEJAL CERRATO ALL SPINE 6 MEDICAL THORACIC IMAGING 2 VIEWS ASS COMPUTER- 43255 SEJAL ABBOTTUTCHER AIDED 6 MEDICAL ADRIANNA DETECTION IMAGING ASS SCREENING MAMMOGRAP HY SCREENING G0202 [facility] ABBOTTHARLEEN 6 MEDICAL ADRIANNA MAMMOGRAP IMAGING HY WILBERT ASS INCL CAD WHEN PERFORMD COMPREHEN 66073 [place] [facility] SIVE 6 [facility] METABOLIC INC INC PANEL RADEX ABD 79308 SEJAL CERRATO ALL COMPL 6 MEDICAL AQT ABD IMAGING W/S/E/D ASS VIEWS 1 VIEW CH ECG 54298 [place] CHAVEZ JR ROUTINE 6 [facility] W/LEAST P 12 LDS I&[place] [address] [place] [facility] INFUSION 6 [facility] THERAPY/P INC INC ROPHYLAXI S /DX 1ST TO 1 HR URNLS DIP 90606 [place] [facility] 6 [facility] STICK/TAB INC INC [place] [address] [place] [facility] TROPONIN 6 [facility] QUANTITAT INC INC SABIHA BLOOD 61442 [place] [facility] COUNT 6 [facility] COMPLETE INC INC AUTO&AUTO DIFRNTL WBC ECG 13460 [place] [facility] ROUTINE 6 [facility] ECG INC INC W/LEAST 12 LDS TRCG ONLY W/O I&[place] [address] [place] [facility] LACTATE 6 [place] [address] [place] [facility] INFUSION 6 [facility] THERAPY/P INC INC ROPHYLAXI S /DX 1ST TO 1 HR ECG 91236 [place] ROUTINE 6 [facility] W/LEAST P 12 LDS I&R ONLY RADIOLOGI 82455 SEJAL CERRATO ALL C EXAM 6 MEDICAL CHEST 2 IMAGING VIEWS ASS FRONTAL&L ATERAL COMPREHEN 21031 [place] [facility] SIVE 6 [facility] METABOLIC INC INC PANEL CULTURE 12081 [place] [facility] BACTERIAL 6 [facility] INC INC QUANTTATI VE COLONY COUNT URINE URINE 75227 [place] [facility] 6 [facility] TEST INC INC VISUAL COLOR CMPRSN METHS CREATINE 19107 [place] KINASE 6 [facility] TOTAL INC INC CREATINE 82078 [place] KINASE MB 6 [facility] FRACTION INC INC ONLY ECG 01433 [place] ROUTINE 6 [facility] ECG INC INC W/LEAST 12 LDS TRCG ONLY W/O I&R BLOOD 56446 [place] COUNT 6 [facility] COMPLETE INC INC AUTO&[place] [address] [place] TROPONIN 6 [facility] QUANTITAT INC INC SABIHA URNLS DIP 70441 [place] [facility] 6 [facility] STICK/TAB INC INC LET REAGENT AUTO MICROSCOP Y RADEX ABD 86032 MAINE CERRATO ALL COMPL 6 MEDICAL AQT ABD IMAGING W/S/E/D ASS VIEWS 1 VIEW CH AMB [id number] [facility] SERVICE 6 AMBULANCE AMBULANCE ALS SERVICE SERVICE EMERGENCY TRANSPORT LEVEL 1 GROUND A0425 [facility] MILEAGE 6 AMBULANCE AMBULANCE PER SERVICE SERVICE STATUTE MILE COMPREHEN 52995 [facility] SIVE 6 N N METABOLIC COMMUNTIY COMMUNTIY PANEL HOSPITA HOSPITA MRI BRAIN 54836 [facility] BRAIN 6 N N STEM W/O COMMUNTIY COMMUNTI[place] [address] [facility] INFUSION 6 N N HYDRATION COMMUNTIY COMMUNTIY EACH HOSPITA HOSPITA ADDITIONA L HOUR BLOOD 34257 [facility] COUNT 6 N N COMPLETE COMMUNTIY COMMUNTIY AUTO&AUTO HOSPITA HOSPITA DIFRNTL WBC THER 69783 [facility] PROPH/DX 6 N N NJX IV COMMUNTIY COMMUNTIY PUSH HOSPITA HOSPITA SINGLE/1S T SBST/DRUG COLLECTIO 97646 [facility] N VENOUS 6 N N BLOOD COMMUNTIY COMMUNTIY VENIPUNCT [facility] HOSPCAPE [facility] [place] [address] SEJAL CERRATO ALL ABDOMEN & 6 MEDICAL PELVIS IMAGING W/[place] [address] SEJAL CERRATO ALL HEAD/BRAI 6 MEDICAL N W/O IMAGING CONTRAST ASS MATERIAL RADIOLOGI 69977 SEJAL CERRATO ALL C 6 MEDICAL EXAMINATI IMAGING ON CHEST ASS SINGLE VIEW FRONTAL GROUND A0425 [facility] MILEAGE 6 AMBULANCE AMBULANCE PER SERVICE SERVICE STATUTE MILE AMB [id number] [facility] SERVICE 6 AMBULANCE AMBULANCE ALS SERVICE SERVICE EMERGENCY TRANSPORT LEVEL 1 ECG 29347 [place] [facility] ROUTINE 6 [facility] W/LEAST P 12 LDS I&R ONLY CHIROPRAC 40213 [facility] TIC 6 MANIPLTV TX EXTRASPIN AL 1/> REGION MANUAL 80754 [facility] THERAPY 6 TQS 1/> REGIONS EACH 15 MINUTES CHIROPRAC 50659 [facility] TIC 6 MANIPULAT [place] SPINAL 3-4 REGIONS THERAPEUT 45946 [facility] IC PX 1/> 6 AREAS EACH 15 MIN EXERCISES THERAPEUT 31890 [facility] IC PX 1/> 6 AREAS EACH 15 MIN EXERCISES MANUAL 21111 [facility] THERAPY 6 TQS 1/> REGIONS EACH 15 MINUTES CHIROPRAC 22827 [facility] TIC 6 MATTI MATTI MANIPULAT SABIHA TX SPINAL 3-4 REGIONS MANUAL 28918 [facility] THERAPY 6 MATTI MATTI TQS 1/> REGIONS EACH 15 MINUTES CHIROPRAC 60154 [facility] TIC 6 MATTI MATTI MANIPLTV TX EXTRASPIN AL 1/> REGION THERAPEUT 86833 [facility] IC PX 1/> 6 MATTI MATTI AREAS EACH 15 MIN EXERCISES COMPREHEN 44051 [facility] 6 DIAGNOSTI DIAGNOSTI METABOLIC CS CS PANEL BX SKIN 06-30-201 32354 SCALF LEI SCALF LEI SUBCUTANE 6 OUS&/MUCO [place] 1 [place] L[place] [address] SCALF LEI SCALF LEI SURG 6 PATHOLOGY GROSS&BRYCE ROSCOPIC EXAM IMHISTOCH 44775 SCALF LEI SCALF LEI EM/CYTCHM 6 1ST ANTIBODY STAIN PROCEDURE ECG 77201 [place] MATUTE ROUTINE 6 [facility] W/LEAST P 12 LDS I&R ONLY ECG 39636 MOSQUE MCKENNA ROUTINE 6 [facility] ECG MEDICAL W/LEAST GROUP 12 LDS I&R ONLY LOCM Q9967 MOSQUE MOSQUE [phone] 6 [facility] MG/ML [facility] IODINE CONCENTRA TION PER ML LIPID 75955 MOSQUE MOSQUE PANEL [address] [place] [address] HEALTH [facility] BASIC 20680 MOSQUE MOSQUE METABOLIC 6 [facility] PANEL [facility] CALCIUM TOTAL INJECTION J3010 MOSQUE MOSQUE FENTANYL 6 [facility] CITRATE [facility] 0.1 MG BLOOD 67237 MOSQUE MOSQUE COUNT 6 [facility] BioNanovations COMPLETE [facility] AUTOMATED CATH PLMT 41752 MOSQUE MCKENNA L HRT & 6 [facility]ALTH [facility] MEDICAL W/NJX & GROUP ANGIO IMG S&I HEMOGLOBI 43428 MOSQUE MOSQUE N 6 [facility] GLYCOSYLA [facility] LANEY A1C INJECTION J1644 MOSQUE MOSQUE HEPARIN 6 [facility] SODIUM [facility] PER 1000 UNITS COLLECTIO 93314 MOSQUE MOSQUE N VENOUS 6 [facility] BLOOD [facility] VENIPUNCT URE GONADOTRO 02763 MOSQUE MOSQUE PIN 6 [facility]ALTH CHORIONIC [facility] QUANTITAT SABIHA CV STRS 74934 [place] [facility] TST 6 [facility] XERS&/OR INC INC RX CONT ECG TRCG ONLY CV STRS 81636 [facility] FALLUJI TST 6 PHYSICIAN NACHO XERS&/OR S GROUP RX CONT ECG W/O I&R CV STRS 91514 [place] [facility] TST 6 [facility]&/OR [facility] RX CONT P P ECG I&R ONLY MYOCARDIA 34775 [place] Ortega SPECT 6 [facility] HOSP MULTIPLE INC INC STUDIES TECHNETIU A9500 [place] Montenegro TC-99M 6 [facility] HOSP SESTAMIBI INC INC DX PER STUDY DOSE ECHO 17529 [place] [facility] TTHRC R-T 6 [facility] HOSP 2D INC INC W/WOM-MOD E COMPL SPEC&COLR D ECG 73749 [place] CHAVEZ JR ROUTINE 6 [facility] W/LEAST P 12 LDS I&R ONLY RADIOLOGI 27872 MAINE CERRATO ALL C 6 MEDICAL EXAMINATI IMAGING ON CHEST ASS SINGLE VIEW FRONTAL OPHTH 87386 [facility] MEDICAL 6 XM&EVAL COMPRHNSV ESTAB PT 1/> BLOOD 47958 [facility] COUNT 6 [facility]I MA[facility] COMPLETE [facility] AUTO&AUTO DIFRNTL WBC COMPREHEN 68787 [facility] SIVE 6 MAI MAI METABOLIC [place] [address] LAB [facility] ZINC 6 [facility] PREALBUMI 64140 [facility] N 6 [place] [address] LAB MA[facility] LAB [facility] THIAMINE- 6 [facility] VITAMIN [facility] B-1 ORGANIC 94342 LAB [facility] ACID 1 6 [facility]I [facility] QUANTITAT [place] [address] LAB [facility] LAB [facility] PARATHORM 6 [place] [address] LAB MAHESH LAB MAHESH PHOSPHORU 6 MAI MA[place] [address] LAB [facility] LAB MA[facility] FERRITIN 6 [place] [address] LAB MA[facility]ESH LAB MA[facility]ESH MAGNESIUM 6 MAI MAI [facility]INGS 25 25424 LAB [facility] HYDROXY 6 MAI MAI INCLUDES [facility] [place] [address] LAB MA[facility] LAB MAH[facility] FOLIC 6 MAI MAI [place] [address] LAB MA[facility]ESH LAB MAHESH TOCOPHERO 6 [facility] L AL[facility] [place] [address] LAB MAHESH LAB MAHESH VITAMIN A 6 MA[facility] [place] [address] LAB MAH[facility] LAB [facility] IRON [address] [facility] [address] [place] [facility] IRON 6 [place] [address] [place] [facility] THYROID 6 [facility] STIMULATI INC INC NG HORMONE TSH COLLECTIO 46894 [place] [facility] N VENOUS 6 [facility]OS[facility] BLOOD INC INC VENIPUNCT URE 25 66258 [place] [facility] HYDROXY 6 [facility] INCLUDES [place] [address] [place] VAUGHN FERRITIN 6 [facility] TERA INC IRON 21534 [place] [facility] BINDING 6 [facility] CAPACITY INC INC COMPREHEN 43249 [place] [facility] SIVE 6 [facility] METABOLIC INC INC PANEL BLOOD 39060 [place] [facility] COUNT 6 [facility]OS[facility] COMPLETE INC INC AUTO&AUTO DIFRNTL WBC IADNA 08375 P&C LABSDANIA CHLAMYDIA 6 LLC TRACHOMAT IS AMPLIFIED PROBE TQ IADNA 95963 P&C LABS NAJERA HUMAN 6 LLC PAPILLOMA VIRUS HIGH-RISK TYPES IADNA 49435 P&C LABSMINDYNAJERA NEISSERIA 6 LLC GONORRHOE AE AMPLIFIED PROBE TQ CYTP 61820 P&C LABSDANIA CERVICAL/ 6 LLC VAGINAL REQ INTERP PHYSICIAN CYTP C/V 30204 P&C LABSMINDYNAJERA AUTO THIN 6 LLC LYR PREPJ SCR MNL RESCR PHYS COLLECTIO 53540 [place] [facility] N VENOUS 6 [facility] [place] [address] [facility] [facility] THYROID 6 [facility] STIMULATI INC INC NG HORMONE TSH BASIC 03851 [place] [facility] METABOLIC 6 [facility] PANEL INC INC CALCIUM TOTAL COMPREHEN 62978 [place] [facility] SIVE 6 [facility] METABOLIC INC INC PANEL COLLECTIO 21303 [place] [facility] N VENOUS 6 [facility] [place] [address] [facility] [facility] IRON 6 [place] [address] [facility] [facility] FERRITIN 6 [facility] INC INC ORGANIC 41621 [place] [facility] ACID 1 6 [facility] [address] [facility] [facility] THIAMINE- 6 [facility] VITAMIN INC INC B-1 PREALBUMI 01894 [place] [facility] N 6 [facility] INC INC BLOOD 57593 [place] [facility] COUNT 6 [facility] COMPLETE INC INC AUTO&AUTO DIFRNTL WBC PREALBUMI 11557 LAB [facility] LAB MAHESH N 5 MAI MAI [facility] [place] [address] LAB MAHESH LAB MAHESH THIAMINE- 5 [facility] VITAMIN HOLDINGS HOLDINGS B-1 ORGANIC 23558 LAB MAHESH LAB MAHESH ACID 1 5 [facility] QUANTITAT [place] [address] LAB MAHESH LAB MAHESH FERRITIN 5 [place] [address] LAB MAHESH LAB MAHESH FOLIC 5 MAI MAI [place] [address] LAB MAHESH LAB MAHESH IRON 5 MAI MAI [facility] [place] GENERAL [address] LAB MA[facility] LAB MA[facility]ESH HEALTH 5 [facility] PANEL [facility]INGS HOLDINGS BX SKIN 13495 ATKINS ATKINS SUBCUTANE 5 TRA TRA OUS&/MUCO US MEMBRANE 1 LESION DESTRUCTI 80849 ATKINS ATKINS ON 5 TRA TRA PREMALIGN ANT LESION 1ST BIOPSY 48661 ATKINS ATKINS SKIN 5 TRA TRA SUBQ&/MUC OUS MEMBRANE EA ADDL LESN DESTRUCTI 00241 ATKINS ATKINS ON BENIGN 5 TRA TRA LESIONS UP TO 14 [place] [address] SCALF LEI SCALF LEI SURG 5 PATHOLOGY GROSS&BRYCE ROSCOPIC EXAM PREALBUMI 68674 LAB [facility] LAB MAHESH N 5 MAI MAI [facility] HOLDINGS BLOOD 82389 LAB [facility] LAB MAHESH COUNT 5 [facility] COMPLETE [facility]INGS HOLDINGS AUTO&[place] [address] LAB MAHESH LAB MAHESH IRON 5 [place] [address] LAB MAHESH LAB MAHESH FOLIC 5 [facility] ACID [facility]INGS HOLDINGS SERUM ORGANIC 49751 LAB MAHESH LAB MAHESH ACID 1 5 [facility] QUANTITAT [place] [address] LAB MAHESH LAB MAHESH THIAMINE- 5 [facility] VITAMIN [facility]INGS HOLDINGS B-1 COMPREHEN 92636 LAB MAHESH LAB MAHESH SIVE 5 [facility] METABOLIC [facility] PANEL SCREENING G0202 MAINE KALINA 5 MEDICAL CARMEN MAMMOGRAP IMAGING HY WILBERT ASS INCL CAD WHEN PERFORMD COMPUTER- 80756 [facility] KALINA AIDED 5 MEDICAL CARMEN DETECTION IMAGING ASS SCREENING MAMMOGRAP HY COMPREHEN 66357 [place] [facility] SIVE 5 [facility] METABOLIC INC INC PANEL BLOOD 87919 [place] [facility] COUNT 5 [facility] COMPLETE INC INC AUTO&AUTO DIFRNTL WBC LIPID 74006 [place] [facility] PANEL 5 [facility] INC INC CYANOCOBA 77861 [facility] [facility] LYUBOV 5 [facility] VITAMIN INC INC B-12 25 05148 [place] [facility] HYDROXY 5 [facility] INCLUDES [place] [address] [facility] GLUTAMYLT 5 [facility] [place] [address] [facility] THYROID 5 [facility] STIMULATI INC INC NG HORMONE TSH HEMOGLOBI 08131 [place] [facility] N 5 [facility]OS[facility] GLYCOSYLA INC INC LANEY A1C COLLECTIO 71849 [place] [facility] N VENOUS 5 [facility] BLOOD INC INC VENIPUNCT URE OPHTH 50350 SCIFRES SCIFRES MEDICAL 5 ANG ANG XM&EVAL COMPRHNSV ESTAB PT 1/> [place] [address] [facility] ABDOMEN & 5 N N PELVIS COMMUNTIY COMMUNTIY W/CONTRAS HOSPITA HOSPITA T MATERIAL CULTURE 30299 [place] [facility] BACTERIAL 5 [facility] INC [place] [address] SEJAL CERRATO ALL ABDOMEN & 5 MEDICAL PELVIS IMAGING W/CONTRAS ASS T MATERIAL COMPREHEN 42746 [place] [facility] SIVE 5 [facility] METABOLIC INC INC PANEL URNLS DIP 48084 [place] [facility] 5 [facility] STICK/TAB INC INC LET REAGENT AUTO MICROSCOP Y BLOOD 18387 [place] [facility] COUNT 5 [facility] COMPLETE INC INC AUTO&AUTO DIFRNTL WBC URINE 17096 [place] TALLEYON 5 [facility] TEST INC INC [place] [address] [place] AMYLASE 5 [place] [address] [place]ON LIPASE 5 [place] [address] [facility] MAGNESIUM 5 N N COMMUNTI[place] [address] [facility] LIPASE 5 N N COMMUNTI[place] [address] [facility] THIAMINE- 5 N N VITAMIN COMMUNTIY COMMUNTIY B-1 HOSPITA HOSPITA ORGANIC 88485 [facility] ACID 1 5 N N QUANTITAT COMMUNTIY COMMUNTI[place] [address] [facility] PHOSPHORU 5 N N S COMMUNTIY COMMUNTIY [place] [address] [facility] PARATHORM 5 N N ONE COMMUNTIY [place] [address] [facility] AMYLASE 5 N N COMMUNTI[place] [address] [facility] FOLIC 5 N N ACID COMMUNTIY COMMUNTIY SERUM HOSPITA HOSPITA 25 71872 [facility] HYDROXY 5 N N INCLUDES COMMUNTIY COMMUNTIY FRACTIONS [place] [address] [facility] TOCOPHERO 5 N N L ALPHA COMMUNTIY COMMUNTIY [place] [address] [facility] VITAMIN A 5 N N COMMUNTIY COMMUNTIY HOSPITA HOSPITA COLLECTIO 07834 [facility] N VENOUS 5 N N BLOOD COMMUNTIY COMMUNTIY VENIPUNCT HOSPITA HOSPITA URE PREALBUMI 60358 [facility] N 5 N N COMMUNTIY [place] [address] [facility] ZINC 5 N N COMMUNTIY COMMUNTIY HOSPITA HOSPITA COMPREHEN 92068 [facility] SIVE 5 N N METABOLIC COMMUNTIY COMMUNTIY PANEL HOSPITA HOSPITA BLOOD 83965 [facility] COUNT 5 N N COMPLETE COMMUNTIY COMMUNTIY AUTO&AUT[place] [address] [facility] [place] ANDREWS ABDOMINAL 5 RADIOLOGY RHO REAL TIME W/[place] [address] [place] [facility] RETROPERI 5 [facility] TONEAL INC INC REAL TIME W/[place] [address] SEJAL SMITH KADIE RETROPERI 5 MEDICAL TONEAL IMAGING REAL TIME ASS W/IMAGE LIMITED BLOOD 12622 [facility] COUNT 5 N N COMPLETE COMMUNTIY COMMUNTIY AUTOMATED HOSPITA HOSPITA HEPATITIS 09564 [facility] C 5 N N ANTIBODY COMMUNTIY COMMUNTIY HOSPITA HOSPITA COMPREHEN 41858 [facility] SIVE 5 N N METABOLIC COMMUNTIY COMMUNTIY PANEL HOSPITA HOSPITA IRON 29993 [facility] BINDING 5 N N CAPACITY COMMUNTIY [place] [address] [facility] GAMMAGLOB 5 N N ULIN IGA COMMUNTIY COMMUNTIY IGD IGG HOSPITA HOSPITA IGM EACH ALPHA-1-A 23926 [facility] NTITRYPSI 5 N N N TOTAL COMMUNTIY [place] [address] [facility] HEPATITIS 5 N N B COMMUNTIY COMMUNTIY SURFACE HOSPITA HOSPITA ANTIGEN COLLECTIO 62402 [facility] N VENOUS 5 N N BLOOD COMMUNTIY COMMUNTIY [place] [address] [facility] IRON 5 N N COMMUNTIY COMMUNTIY HOSPITA HOSPITA HEPATITIS 92008 [facility] B CORE 5 N N ANTIBODY COMMUNTIY COMMUNTIY HBCAB HOSPITA HOSPITA TOTAL PROTHROMB 59577 [facility] IN TIME 5 N N COMMUNTIY COMMUNTIY HOSPITA HOSPITA ANTINUCLE 96091 [facility] AR 5 N N ANTIBODIE COMMUNTIY COMMUNTIY S SANNA HOSPITA HOSPITA HEPATITIS 62934 [facility] B SURF 5 N N ANTIBODY COMMUNTIY COMMUNTIY HBSAB HOSPITA HOSPITA IMMUNOASS 64360 [facility] AY 5 N N ANALYTE COMMUNTIY COMMUNTIY QUAL/SEMI HOSPITA [place] [address] [facility] FERRITIN 5 N [place] [address] [facility] ABDOMEN & 5 MEDICAL PELVIS IMAGING W/O ASS CONTRAST MATERIAL DUP-SCAN 27148 [facility] XTR VEINS 5 N N COMPLETE COMMUNTIY COMMUNTIY HOSPITA HOSPITA BILATERAL STUDY COMPREHEN 39717 [facility] SIVE 5 N N METABOLIC COMMUNTIY COMMUNTIY PANEL HOSPITA HOSPITA BLOOD 10857 [facility] COUNT 5 N N COMPLETE COMMUNTIY COMMUNTIY AUTO&AUTO HOSP[place] [address] [facility] LIPASE 5 N N COMMUNTIY [place] [address] [facility] AMYLASE 5 N N COMMUNTIY COMMUNTIY HOSPITA HOSPITA COLLECTIO 14002 [facility] N VENOUS 5 N N BLOOD COMMUNTIY COMMUNTIY [place]UN[place] [address] [facility] [place] SCALF HUBER TRACT 5 RADIOLOGY UPPER W/WO DELAYED IMAGES W/KUB LAPS 06706 BLUEGRASS SANCHEZ MICHELLE GSTRC 5 RSTRICTIV BARIATRIC PX SURGICAL LONGITUDI NAL GASTRECTO MY ANES IPR 53504 [facility] BRITTNY ANT UPPER 5 ANESTHESI ABDOMEN A GROUP LAPS PS GASTRIC RSTCV MO LAPAROSCO 4382 [facility] PIC 5 N N VERTICAL COMMUNTIY COMMUNTIY SLEEVE HOSPITA HOSPITA GASTRECTO MY OTHER 4513 [facility] ENDOSCOPY 5 N N OF SMALL COMMUNTIY COMMUNTIY HOSPITA HOSPITA INTESTINE APPL 01975 [place] [facility] MODALITY 5 [facility] 1/> AREAS INC INC ELEC STIMJ UNATTENDE D APPLICATI 69030 [place] [facility] ON 5 [facility] MODALITY INC INC 1/> AREAS HOT/COLD PACKS APPL 16830 [place] [facility] MODALITY 5 [facility] 1/> AREAS INC INC ULTRASOUN D EA 15 MIN COMPREHEN 63135 [facility] SIVE 5 N N METABOLIC COMMUNTIY COMMUNTIY PANEL HOSPITA HOSPITA BLOOD 53421 [facility] COUNT 5 N N COMPLETE COMMUNTIY COMMUNTIY AUTOMATED HOSPITA HOSPITA DUP-SCAN 84136 [facility] [facility] XTR VEINS 5 [facility] COMPLETE INC INC BILATERAL STUDY COLLECTIO 57232 [facility] N VENOUS 5 N N BLOOD COMMUNTIY COMMUNTIY VENIPUNCT HOSPITA HOSPITA URE GONADOTRO 15339 [facility] PIN 5 N N CHORIONIC COMMUNTIY COMMUNTIY HOSPITA HOSPITA QUALITATI VE THERAPEUT 72828 [facility] [facility] IC PX 1/> 5 [facility] AREAS INC INC EACH 15 MIN EXERCISES APPL 61746 [place] [facility] MODALITY 5 [facility] 1/> AREAS INC INC ELEC STIMJ UNATTENDE D APPL 94970 [place] [facility] MODALITY 5 [facility] 1/> AREAS INC INC ULTRASOUN D EA 15 MIN APPLICATI 00077 [place] [facility] ON 5 [facility] MODALITY INC INC 1/> AREAS HOT/COLD PACKS CUL BACT 16294 [place] [facility] XCPT 5 [facility] URINE INC INC BLOOD/STO OL AEROBIC ISOL SUSCEPTIB 32676 [place] [facility] LTY STDY 5 [facility] ANTIMICRB INC INC IAL MICRO/AGA R DILUTJ THERAPEUT 75568 [facility] [facility] IC PX 1/> 5 [facility] AREAS INC INC EACH 15 MIN EXERCISES APPLICATI 68080 [place] [facility] ON 5 [facility] MODALITY INC INC 1/> AREAS HOT/COLD PACKS APPL 91618 [place] [facility] MODALITY 5 [facility] 1/> AREAS INC INC ULTRASOUN D EA 15 MIN APPL 32628 [place] [facility] MODALITY 5 [facility] 1/> AREAS INC INC ELEC STIMJ UNATTENDE D APPL 50077 [place] [facility] MODALITY 5 [facility] 1/> AREAS INC INC ELEC STIMJ UNATTENDE D APPL 53393 [place] [facility] MODALITY 5 [facility] 1/> AREAS INC INC ULTRASOUN D EA 15 MIN APPLICATI 26389 [place] [facility] ON 5 [facility] MODALITY INC INC 1/> AREAS HOT/COLD PACKS APPL 32602 [facility] [facility] MODALITY 5 [facility] 1/> AREAS INC INC IONTOPHOR ESIS EA 15 MIN APPL 31586 [facility] MODALITY 5 [facility] 1/> AREAS INC INC IONTOPHOR ESIS EA 15 MIN THERAPEUT 97023 [facility] IC PX 1/> 5 [facility] AREAS INC INC EACH 15 MIN EXERCISES APPLICATI 29193 [place] [facility] ON 5 [facility] MODALITY INC INC 1/> AREAS HOT/COLD PACKS APPL 30692 [place] [facility] MODALITY 5 [facility] 1/> AREAS INC INC ULTRASOUN D EA 15 MIN APPL 95619 [place] [facility] MODALITY 5 [facility] 1/> AREAS INC INC ELEC STIMJ UNATTENDE D LIPID 16178 [facility] PANEL 5 N N COMMUNTIY COMMUNTIY HOSPITA HOSPITA RADIOLOGI 13349 [facility] 5 RADIOLOGY SHA CHEST 2 VIEWS FRONTAL&L ATERAL COMPREHEN 56712 [facility] SIVE 5 N N METABOLIC COMMUNTIY COMMUNTIY PANEL HOSPITA HOSPITA CUL 57978 [facility] PRSMPTV 5 N N PTHGNC COMMUNTIY COMMUNTIY ORGANISM HOSPITA HOSPITA SCRN W/COLONY ESTIMJ BLOOD 88716 [facility] COUNT 5 N N COMPLETE COMMUNTIY COMMUNTIY AUTOMATED HOSPITA HOSPITA ECG 62926 [facility] ROUTINE 5 N N ECG COMMUNTIY COMMUNTIY W/LEAST HOSPITA HOSPITA 12 LDS TRCG ONLY W/O I&R THYROID 80537 [facility] HORM 5 N N UPTK/THYR COMMUNTIY COMMUNTIY OID HOSPITA HOSP[place] [address] [facility] THYROXINE 5 N N TOTAL COMMUNTIY COMMUNTIY HOSPITA HOSPITA COLLECTIO 16917 [facility] N VENOUS 5 N N BLOOD COMMUNTIY COMMUNTIY [place]ENIPUN[place] [address] [facility] THYROID 5 N N STIMULATI COMMUNTIY COMMUNTIY NG HOSPITA HOSPITA HORMONE TSH PHYSICAL 11588 [facility] THERAPY 5 [facility] EVALUATIO INC INC N FIBRIN 43862 [facility] DGRADJ 5 [facility] PRODUCTS INC INC D-DIMER QUAL/SEMI GILBERT COLLECTIO 02478 [facility] N VENOUS 5 [facility] [place] [address] [facility] TROPONIN 5 [facility]OSP QUANTITAT INC INC SABIHA URNLS DIP 05668 [facility] [facility] 5 [facility] STICK/TAB INC INC LET REAGENT AUTO MICROSCOP Y ECG 63284 [facility] ROUTINE 5 [facility]OS[facility] ECG INC INC W/LEAST 12 LDS TRCG ONLY W/O I&R BLOOD 32595 [facility] COUNT 5 [facility] COMPLETE INC INC AUTO&AUTO DIFRNTL WBC RADIOLOGI 90344 [facility] C EXAM 5 [facility] CHEST 2 IMAGING VIEWS ASS FRONTAL&L ATERAL COMPREHEN 37145 [place] [facility] SIVE 5 [facility] METABOLIC INC INC PANEL ECG 20160 [place] CHAVEZ JR ROUTINE 5 [facility] W/LEAST P 12 LDS I&R ONLY ECG 65438 [place] MATUTE ROUTINE 5 [facility] W/LEAST P 12 LDS I&R ONLY LOCM Q9967 [place] [facility] [phone] 5 [facility] MG/ML INC INC IODINE CONCENTRA TION PER ML RADIOLOGI 94784 [facility] C EXAM 5 [facility] CHEST 2 IMAGING VIEWS ASS FRONTAL&L ATERAL COMPREHEN 70020 [place] [facility] SIVE 5 [facility] METABOLIC INC INC PANEL BLOOD 14105 [place] [facility] COUNT 5 [facility] COMPLETE INC INC AUTO&[place] [address] [facility] ANGIOGRAP 5 [facility] HY CHEST IMAGING W/CONTRAS ASS T/NONCONT RAST ECG 38934 [place] [facility] ROUTINE 5 [facility] ECG INC INC W/LEAST 12 LDS TRCG ONLY W/O I&[place] [address] [place] [facility] TROPONIN 5 [facility] QUANTITAT INC INC SABIHA FIBRIN 00902 [place] [facility] DGRADJ 5 [facility] PRODUCTS INC INC D-DIMER QUAL/SEMI GILBERT RADEX 18947 [facility] SHOULDER 4 MEDICAL COMPLETE IMAGING MINIMUM 2 ASS VIEWS DESTRUCTI 11123 ATKINS ATKINS ON BENIGN 4 TRA TRA LESIONS UP TO 14 REPAIR 24907 ATKINS ATKINS COMPLEX 4 TRA TRA SCALP/ARM /LEG 1.1-2.5 CM LEVEL III 62110 SCALF LEI SCALF LEI SURG 4 PATHOLOGY GROSS&[place] [address] [facility]/BRAI 4 [facility] N W/O IMAGING CONTRAST ASS MATERIAL THERAPEUT 83941 [place] [facility] IC 4 [facility] INJECTION INC INC IV PUSH EACH NEW DRUG EGD 64102 [facility] SANCHEZ MICHELLE TRANSORAL 4 BIOPSY BARIATRIC SINGLE/[place] [address] [facility], PICKLES[facility] SURG 4 [facility] PATHOLOGY GROSS&BRYCE ROSCOPIC EXAM SPECIAL 60629 [facility] STAIN 4 [facility] GROUP 1 MICROORGA NISMS I&R SPCL STN 71708 [facility], [facility] 2 I&R 4 [facility] EXCPT MICROORG/ ENZYME/IM CYT ANES 56935 MAINE BENSON UPPER GI 4 ANESTHESI JOSE ANGEL ENDOSCOPY A GROUP PROXIMAL PS TO DUODENUM SPMTRY 74747 [place] [facility] W/VC 4 [facility] EXPIRATOR INC INC Y ABHI W/WO MXML VOL VNTJ EXC B9 76675 ADVANCED SCALF LEI LESION 4 DERMATOLO MRGN XCP GY SK TG S/N/H/F/G 1.1-2.0CM REPAIR 79546 ADVANCED SCALF LEI COMPLEX 4 DERMATOLO SCALP/ARM GY /LEG 1.1-2.5 CM LEVEL III 44340 SCALF LEI SCALF LEI SURG 4 PATHOLOGY GROSS&BRYCE ROSCOPIC EXAM RADIOLOGI 72706 [place] [facility] C EXAM 4 [facility] CHEST 2 INC INC VIEWS FRONTAL&L ATERAL REMOVAL 76659 ATKINS ATKINS SKN TAGS 4 TRA TRA HEAD OF OPERATION AND LOGISTICS FIBRQ TAGS ANY AREA UPW/15 CV STRS 52486 [place] [facility] TST 4 [facility] XERS&/OR INC INC RX CONT ECG TRCG ONLY CV STRS 67594 [place] MATUTE TST 4 [facility] XERS&/OR HOSPITAL RX CONT P ECG I&R ONLY ECHO 82147 MELANIE MARTINEZ TTHRC R-T 4 MEDICAL ALI 2D SERV W/WOM-MOD FOUNDATIO E COMPL SPEC&COLR D RADIOLOGI 54080 SEJAL BUCHANAN C EXAM 4 [facility] CARMEN CHEST 2 IMAGING VIEWS ASS FRONTAL&L ATERAL RADIOLOGI 67140 [place] [facility] C 4 [facility] EXAMINATI INC INC ON CHEST SINGLE VIEW FRONTAL BLOOD 93796 [place] [facility] COUNT 4 [facility] COMPLETE INC INC AUTO&AUTO DIFRNTL WBC ECG 91494 SCOTT CHAVEZ JR ROUTINE 4 DWI DWI ECG W/LEAST 12 LDS I&R ONLY BASIC 26092 [place] [facility] METABOLIC 4 [facility] PANEL INC INC CALCIUM TOTAL ECG 84180 [place] [facility] ROUTINE 4 [facility] ECG INC INC W/LEAST 12 LDS TRCG ONLY W/O I&R [place] [address] [place] [facility] TROPONIN 4 [facility] [place] [address] [place] [facility]OPON[facility] QUANTITAT INC INC SABIHA ECG 60655 [place] [facility] ROUTINE 4 [facility] ECG INC INC W/LEAST 12 LDS TRCG ONLY W/O I&R FIBRIN 46095 [place] [facility] DGRADJ 4 [facility] PRODUCTS INC INC D-DIMER QUAL/SEMI GILBERT CREATINE 23827 [place] [facility] KINASE MB 4 [facility] FRACTION INC INC ONLY CREATINE 59890 [place] [facility] KINASE 4 [facility] TOTAL INC INC ECG 31850 GI[place] MATUTE ROUTINE 4 [facility] DOMINIQUE ECG W/LEAST 12 LDS I&R ONLY COMPREHEN 13911 [place] [facility] SIVE 4 [facility] METABOLIC INC INC PANEL BLOOD 07073 [place] [facility] COUNT 4 [facility] COMPLETE INC INC AUTO&AUTO DIFRNTL WBC RADIOLOGI 73199 [place] EXAM 4 [facility] CHEST 2 INC INC VIEWS FRONTAL&L ATERAL HEMOGLOBI 13814 COMBINED COMBINED N 4 PHYSICIAN PHYSICIAN GLYCOSYLA S LA S LA LANEY A1C CYANOCOBA 51747 COMBINED COMBINED LYUBOV 4 PHYSICIAN PHYSICIAN VITAMIN S LA S LA B-12 25 77706 COMBINED COMBINED HYDROXY 4 PHYSICIAN PHYSICIAN INCLUDES [place] [address] COMBINED COMBINED FREE 4 PHYSICIAN PHYSICIAN THYROXINE S LA S LA SEDIMENTA 24849 COMBINED COMBINED TION RATE 4 PHYSICIAN PHYSICIAN RBC S LA S LA NON-AUTOM ATED GENERAL 33885 COMBINED COMBINED HEALTH 4 PHYSICIAN PHYSICIAN PANEL S LA S LA LIPID 96917 COMBINED COMBINED PANEL 4 PHYSICIAN PHYSICIAN S LA S LA SCREENING G0202 [place] [facility] MAMMOGRAP INC INC HY WILBERT INCL CAD WHEN PERFORMD COMPUTER- 86290 [place] [facility] AIDED 4 [facility] DETECTION INC INC SCREENING MAMMOGRAP HY LIPID 31207 [facility] PANEL 4 DIAGNOSTI DIAGNOSTI CS CS IIV3 03460 DHS/CO [place] VACCINE 9 [facility] VIRUS 0.5 BANK ACCT ML DOSAGE IM USE RADEX 45310 KIMBERLEE PASCUAL, SPINE 9 [facility] S LUMBSCR CORPORATI COMPL ON W/BENDING VIEWS MIN 6 RADIOLOGI 22881 Cliff CRAIG EXAMINATI IMAGING ON PELVIS ASSOCIATE 1/2 S VIEWS RADEX HIP 74405 [place] [facility] UNILATERA INC INC L COMPLETE MINIMUM 2 VIEWS RADEX 07203 TON CRAIG 9 JERRICA Chino LUMBOSACR IMAGING AL ASSOCIATE MINIMUM 4 S VIEWS Encounters Encounter Start End Date Code Location Performer Type Date OFFICE 15456 [place] [facility] 7 [facility] T VISIT INC 10 MINUTES [facility] [place] [facility] OUTPATIEN INC T [facility] [place] [facility] OUTPATIEN INC T OFFICE 86418 [facility] OUTPATIEN 7 7 [facility] T VISIT INTERNAL 15 MED MINUTES [facility] [place] [facility] OUTPATIEN INC T EMERGENCY 66618 SMILEY SUGGS 7 7 PHYSICIAN DEPARTMEN S, PLLC T VISIT HIGH/URGE NT SEVERITY EMERGENCY 59083 [place] 7 7 [facility] DEPARTMEN INC T VISIT MODERATE SEVERITY OFFICE 59910 [facility] PHYSICIAN T VISIT S GROUP 15 MINUTES [facility] [place] [facility] OUTPATIEN INC T [facility] [place] [facility] 7 [facility] OUTPATIEN INC T OFFICE 77911 [facility] 7 7 HEALTH T VISIT MEDICAL 25 GROUP MINUTES EMERGENCY 03546 [place] 7 7 [facility] DEPARTMEN INC T VISIT LOW/MODER SEVERITY EMERGENCY 37190 SMI[facility] PASCUAL 7 7 PHYSICIAN DEPARTMEN S, PLLC T VISIT MODERATE SEVERITY EMERGENCY 84766 SMI[facility] PASCUAL 7 7 PHYSICIAN DEPARTMEN S, PLLC T VISIT MODERATE SEVERITY [facility]OSP[facility] - 7 7 HEALTH OUTPATIEN [facility] OFFICE 19524 [place] [facility] 7 7 [facility] T VISIT 5 INC MINUTES [facility] [place] [facility] OUTPATIEN INC T [facility] [place] [facility] OUTPATIEN INC T EMERGENCY 28377 [place] 7 7 [facility] DEPARTMEN INC T VISIT LOW/MODER SEVERITY EMERGENCY 39881 SMILEY PASCUAL DEPT 7 7 PHYSICIAN VISIT S, PLLC HIGH SEVERITY& THREAT FUNCJ OFFICE 57500 [facility] ISSA OUTPATIEN 7 7 PHYSICIAN T VISIT S GROUP 10 MINUTES OFFICE 79453 ALLERGY ROSENTHAL OUTPATIEN 7 7 PARTNERS T [facility] [place] 25 CO MINUTES [facility] [place] [facility] OUTPATIEN INC T OFFICE 15678 [place] OUTPATIEN 7 7 VALLEY T VISIT INTERNAL 15 MED MINUTES EMERGENCY 02109 [place] 7 7 [facility] DEPARTMEN INC T VISIT HIGH/URGE NT SEVERITY [facility] [place] [facility] OUTPATIEN [facility] T EMERGENCY 18524 SMILEY BANNER DEPT 7 7 PHYSICIAN VISIT S, PLLC HIGH SEVERITY& THREAT FUNCJ OFFICE 28561 [place] [facility]IEN 7 7 [facility] T VISIT 5 INC MINUTES [facility] [place] [facility]IEN [facility] [place] [facility]PATIEN [facility] T EMERGENCY 84210 [facility] 7 7 PHYSICIAN VISIT S, PLLC HIGH SEVERITY& THREAT FUNCJ EMERGENCY 54741 [place] 7 7 [facility] DEPARTMEN INC T VISIT MODERATE SEVERITY [facility] - 7 7 HEALTH OUTPATIEN [place] T OFFICE 91284 [place] A[facility]LAN OUTPATIEN 7 7 MONTEREY T VISIT INTERNAL 15 MED MINUTES [facility]OSP[facility] - 7 7 HEALTH OUTPATIEN [place] T OFFICE 38808 [place] CELI OUTPATIEN 7 7 [facility] T VISIT HOSPITAL 10 P MINUTES OFFICE 06615 [facility] FUNES OUTPATIEN 7 7 HEALTH T VISIT MEDICAL 25 GROUP MINUTES OFFICE 09617 [place] OUTPATIEN 7 7 [facility] T VISIT INC 10 MINUTES [facility] [place] [facility] OUTPATIEN INC T OFFICE 46712 [place] A[facility] OUTPATIEN 7 7 MONTEREY T VISIT INTERNAL 15 MED MINUTES [facility] [place] [facility] OUTPATIEN INC T OFFICE 05533 [place] OUTPATIEN 7 7 [facility] T VISIT 5 INC MINUTES OFFICE 80112 [place] WEISS JR OUTPATIEN 7 7 [facility] T VISIT HOSPITAL 10 P MINUTES EMERGENCY 05699 [place] 7 7 [facility] DEPARTMEN INC T VISIT LOW/MODER SEVERITY EMERGENCY 19036 SMILEY PASCUAL DEPT 7 7 PHYSICIAN VISIT [facility] HIGH SEVERITY& THREAT [facility] [place] [facility] OUTPATIEN INC T OFFICE 56271 [place] [facility]ATORRE OUTPATIEN 7 7 [facility] T VISIT [facility] 10 P MINUTES [facility] [place] [facility] OUTPATIEN INC [facility] [place] [facility] OUTPATIEN INC T EMERGENCY 39967 [place] 7 7 [facility] DEPARTMEN INC T VISIT HIGH/URGE NT SEVERITY [facility] [place] [facility] OUTPATIEN INC T PERIODIC 44669 [facility] KAM PREVENTIV 7 7 PHYSICIAN E MED EST S GROUP PATIENT [id number] OFFICE 89935 [place] GIOVANI OUTPATIEN 7 7 MONTER[place] T VISIT INTERNAL 15 MED MINUTES [facility] [place] [facility] OUTPATIEN INC T OFFICE 67600 [facility] MAEGAN OUTPATIEN 7 7 PHYSICIAN T VISIT S GROUP 15 MINUTES EMERGENCY 79324 [facility] JAQUEZ 7 7 PHYSICIAN DEPARTMEN S, [facility] T VISIT HIGH/URGE NT SEVERITY [facility] [place] [facility] OUTPATIEN INC T OFFICE 30893 [place] ALATORRE OUTPATIEN 7 7 [facility] 10 P MINUTES [facility] [place] [facility] OUTPATIEN INC T OFFICE 50312 YVETTENELLIE JURADO OUTPATIEN 7 7 MD RHIANNON, T VISIT PSC 10 MINUTES [facility] [place] [facility] OUTPATIEN INC T OFFICE 96841 [facility] KIMBERLY OUTPATIEN 7 7 PHYSICIAN T VISIT S GROUP 25 MINUTES [facility] [place] [facility] OUTPATIEN INC T [facility] [place] [facility] OUTPATIEN INC T OFFICE 87159 [place] OUT[facility] 7 7 [facility] T VISIT 5 INC MINUTES OFFICE 70868 [facility] ISSA OUTPATIEN 7 7 PHYSICIAN T VISIT S GROUP 10 MINUTES OFFICE 49564 YVETTE MAXIMOPERCY OUTPATIEN 7 7 MD RHIANNON, T NEW 30 PSC MINUTES EMERGENCY 05039 [place] 7 7 [facility] DEPARTMEN INC T VISIT HIGH/URGE NT SEVERITY [facility] [place] [facility] OUTPATIEN INC T [facility] [place] [facility] OUTPATIEN INC T OFFICE 76695 [facility] KIMBERLY OUTPATIEN 7 7 PHYSICIAN T VISIT S GROUP 25 MINUTES OFFICE 52066 [place] BESSON OUTPATIEN 7 7 [facility] T VISIT INTERNAL 15 MED MINUTES OFFICE 85970 [facility] KIMBERLY OUTPATIEN 7 7 PHYSICIAN T VISIT S GROUP 25 MINUTES [facility]OS[facility] [place] [facility] 7 [facility] OUTPATIEN INC T OFFICE 46436 CENTRAL ADAMS OUTPATIEN 7 7 [place] T VISIT ORTHOPAED 15 IC MINUTES EMERGENCY 71995 [place] 7 7 [facility] DEPARTMEN INC T VISIT HIGH/URGE NT SEVERITY [facility] [place] [facility] OUTPATIEN INC T EMERGENCY 27066 S[facility] ARMIJO DEPT 7 7 PHYSICIAN VISIT S, [facility] HIGH SEVERITY& THREAT FUNCJ OFFICE 99407 [place] GIOVANI OUTPATIEN 7 7 MONTEREY T VISIT INTERNAL 25 MED MINUTES OFFICE 06427 [place] [facility]IEN 7 7 [facility] T VISIT 5 INC [facility] [place] [facility] 7 [facility] OUTPATIEN INC T OFFICE 56211 ANGELITO [place] OUTPATIEN 7 7 MAINE T NEW 30 ORTHOPAED MINUTES IC EMERGENCY 73387 [place] 7 7 [facility] DEPARTMEN INC T VISIT LOW/MODER SEVERITY EMERGENCY 32981 SMI[facility] JIMENEZ DEPT 7 7 PHYSICIAN U VISIT S, [facility] HIGH SEVERITY& THREAT [facility] [place] [facility] 7 [facility] OUTPATIEN INC T [facility] [place] [facility]IEN [facility] T [facility] [place] [facility] OUTPATIEN [facility] T EMERGENCY 85781 [place] 7 7 [facility] DEPARTMEN INC T VISIT MODERATE SEVERITY EMERGENCY 52564 SMI[facility] PASCUAL 7 7 PHYSICIAN DEPARTMEN S, [facility] T VISIT HIGH/URGE NT SEVERITY EMERGENCY 79661 [place] 7 7 [facility] DEPARTMEN INC T VISIT LOW/MODER SEVERITY [facility] [place] [facility] OUTPATIEN INC T OFFICE 48979 [place] [facility] 7 7 [facility] T VISIT 5 INC MINUTES [facility] [place] [facility] OUTPATIEN INC T OFFICE 85502 [place] OUT[facility] 7 7 [facility] T VISIT INTERNAL 15 MED MINUTES [facility] [place] [facility] 7 7 [facility] T EMERGENCY 05695 [facility] 7 7 [facility] EMERGENCY T VISIT PHYS MODERATE SEVERITY EMERGENCY 06335 [place] 7 7 [facility] T VISIT LOW/MODER SEVERITY OFFICE 41052 [place] [facility]IEN 7 7 [facility] T VISIT 5 INC MINUTES [facility] [place] [facility] OUTPATIEN INC T OFFICE 55677 [place] OUTPATIEN 7 7 [facility] T VISIT INTERNAL 15 MED MINUTES [facility] [place] [facility] OUTPATIEN INC T OFFICE 30393 [place] OUT[facility] 7 7 [facility] T VISIT 5 INC MINUTES EMERGENCY 94788 SMILEY MEDEROS 7 7 PHYSICIAN [facility] S, [facility] T VISIT MODERATE SEVERITY [facility] [place] [facility] OUTPATIEN INC T OFFICE 26160 [place] [facility] 7 7 [facility] T VISIT 5 INC MINUTES OFFICE 08186 [place] OUTPATIEN 7 7 [facility] T VISIT INTERNAL 25 MED MINUTES OFFICE 10271 [place] OUT[facility]IEN 7 7 [facility] T NEW 10 INC MINUTES [facility] [place] [facility] 7 7 [facility] OUTPATIEN INC T OFFICE 94906 [place] JASSO OUTPATIEN 7 7 T VISIT 25 MINUTES [facility]OSP[facility] - 7 7 HEALTH OUTPATIEN [facility] [place] [facility] 7 7 [facility] OUTPATIEN INC T EMERGENCY 08062 [place] 7 7 [facility] DEPARTMEN [facility] T VISIT LIMITED/M INOR PROB [facility] [place] [facility] 7 7 [facility] OUTPATIEN [facility] T EMERGENCY 44693 [place] 7 7 [facility] DEPARTMEN INC T VISIT LOW/MODER SEVERITY [facility] [place] [facility] 7 7 [facility] OUTPATIEN [facility] T EMERGENCY 71880 [place] 7 7 [facility] T V[facility]IT LIMITED/M INOR PROB EMERGENCY 56750 S[facility] PASCUAL 7 7 PHYSICIAN RADHA Reddy [facility] T VISIT MODERATE SEVERITY [facility] 7 7 [facility] 11655 SMI[facility] SOTOMAYOR 6 6 PHYSICIAN [facility] T VIS[facility] HIGH/URGE NT SEVERITY [facility] [place] [facility] 6 6 [facility] OUTPATIEN [facility] T OFFICE 62435 [facility] 6 [facility] VISIT INTERNAL 15 MED MINUTES [facility] [place] [facility] 6 6 [facility] T EMERGENCY 51279 SMI[facility] JAQUEZ 6 6 PHYSICIAN RADHA Reddy [facility] T VISIT HIGH/URGE NT SEVERITY EMERGENCY 42656 [place] 6 6 [facility] T VISIT MODERATE SEVERITY EMERGENCY 42824 [facility] ARMIJO 6 6 [facility] T VISIT MODERATE SEVERITY EMERGENCY 18175 [place] 6 6 [facility] T VISIT LOW/MODER SEVERITY EMERGENCY 21098 S[facility] PASCUAL 6 6 PHYSICIAN BRYCE RADHA Red[facility] T VISIT MODERATE SEVERITY [facility] [place] [facility] 6 6 [facility] OUTPATIEN INC T OFFICE 25880 SCIFRES SCIFRES OUTPATIEN 6 6 ANG ANG T VISIT 10 MINUTES OFFICE 79081 [place] A[facility]LAN OUTPATIEN 6 6 MONTEREY OFELIA T VISIT INTERNAL 15 MED MINUTES OFFICE 51081 WENDY SANCHEZ MICHELLE OUTPATIEN 6 6 T VISIT BARIATRIC 25 SURGICAL MINUTES EMERGENCY 12291 SMILEY SOTOMAYOR 6 6 PHYSICIAN JR [facility] S, [facility] T VISIT HIGH/URGE NT SEVERITY [facility] [place] [facility] 6 6 [facility] OUTPATIEN INC T EMERGENCY 27633 [place] 6 6 [facility] DEPARTMEN INC T VISIT LOW/MODER SEVERITY EMERGENCY 93789 [facility] PASCUAL [address] [facility] T VISIT MODERATE SEVERITY OFFICE 82401 [facility] FALLUJI OUTPATIEN 6 6 [facility] T VISIT MEDICAL 15 G MINUTES [facility] [place] [facility] 6 6 [facility] OUTPATIEN INC T OFFICE 14395 [facility] HUMPHREY OUTPATIEN 6 6 PHYSICIAN MEAGAN T VISIT S GROUP 15 MINUTES [facility] [place] [facility] 6 6 [facility] OUTPATIEN INC T OFFICE 29147 [facility] ISSA OUTPATIEN 6 6 PHYSICIAN JARON T VISIT S GROUP 10 MINUTES [facility] [place] [facility] 6 6 [facility] OUTPATIEN INC T EMERGENCY 24901 [place] 6 6 [facility] DEPARTMEN INC T VISIT MODERATE SEVERITY [facility] [place] [facility] 6 6 [facility] OUTPATIEN INC T OFFICE 63823 [facility] ISSA OUTPATIEN 6 6 PHYSICIAN JARON T VISIT S GROUP 10 MINUTES OFFICE 97053 [place] ALATORRE OUTPATIEN 6 6 [facility] T VISIT HOSPITAL 10 P MINUTES OFFICE 69369 [facility] MCKENNA OUTPATIEN 6 6 HEALTH IV HEN T VISIT MEDICAL 15 GROUP MINUTES OFFICE 29808 PERLA RODRIGUEZ TRI OUTPATIEN 6 6 GROUND T VISIT FAMILY 25 CLINI MINUTES OFFICE 35976 [facility] T VISIT 5 HLTH DEPT HL DEPT MINUTES [facility] EMERGENCY 05210 SMI[facility] ARMIJO 6 6 PHYSICIAN CASANDRA Reddy PLLC T VISIT HIGH/URGE NT SEVERITY [facility] [place] [facility] 6 6 [facility] OUTPATIEN INC T EMERGENCY 01770 [place] 6 6 [facility] DEPARTMEN INC T VISIT LOW/MODER SEVERITY OFFICE 42520 [facility] 6 [facility] T VISIT [facility] DEPT [facility] DEPT 15 JAZZ JAZZ MINUTES [facility]OSP[facility] [place] [facility] 6 6 [facility] OUTPATIEN INC T OFFICE 54626 [facility] KIMBERLY OUTPATIEN 6 6 PHYSICIAN JULIUS T VISIT S GROUP 25 MINUTES OFFICE 34288 WENDY SANCHEZ OUTPATIEN 6 6 T VISIT BARIATRIC 25 SURGICAL MINUTES EMERGENCY 59480 S[facility] PASCUAL 6 6 PHYSICIAN BRYCE Reddy PLLC T VISIT MODERATE SEVERITY OFFICE 17480 [facility] KIMBERLY OUTPATIEN 6 6 PHYSICIAN MAT Berenice NEW 45 S GROUP MINUTES [facility] [place] [facility] 6 6 [facility] OUTPATIEN INC T OFFICE 14481 ALLERGY ROSENTHAL MAR OUTPATIEN 6 6 PARTNERS T [facility]IS[facility] [place] 40 CO MINUTES EMERGENCY 37167 S[facility] JIMENEZ 6 6 PHYSICIAN Taylor GARCIA S PLLC T VISIT HIGH/URGE NT SEVERITY EMERGENCY 09864 [facility] PASCUAL 6 6 PHYSICIAN BRYCE GARCIA S PLLC T VISIT MODERATE SEVERITY EMERGENCY 36174 [place] 6 6 [facility] DEPARTMEN INC T VISIT LOW/MODER SEVERITY [facility] [place] [facility] 6 6 [facility] OUTPATIEN INC T OFFICE 01674 [facility] OUT[facility] 6 6 N T VISIT NEUROLOGY 10 MINUTES [facility] [place] [facility] 6 6 [facility] OUTPATIEN INC T EMERGENCY 46686 SMILEY SOTOMAYOR, 6 6 PHYSICIAN JR MANUELITO GARCIA S, [facility] T VISIT MODERATE SEVERITY [facility] [place] [facility] 6 6 [facility] OUTPATIEN INC T EMERGENCY 88044 SMILEY PASCUAL DEPT 6 6 PHYSICIAN BRYCE VISIT S, PLLC HIGH SEVERITY& THREAT FUNCJ OFFICE 60999 [place] ROQUEIMONE OUTPATIEN 6 6 [facility] VISIT HOSPITAL 10 P MINUTES EMERGENCY 71715 [place] 6 6 [facility] DEPARTMEN INC T VISIT MODERATE SEVERITY [facility] [place] - 6 6 [facility] OUTPATIEN INC T EMERGENCY 56063 S[facility] SOTOMAYOR 6 6 PHYSICIAN JR MANUELITO GARCIA S, [facility] T VISIT HIGH/URGE NT SEVERITY OFFICE 16214 [place] WEISS JR OUTPATI 6 6 [facility] T VISIT HOSPITAL 10 P MINUTES EMERGENCY 96887 SMILEY PASCUAL DEPT 6 6 PHYSICIAN BRYCE VISIT S, PLLC HIGH SEVERITY& THREAT FUNCJ OFFICE 70456 ALLERGY ROSENTHAL MAR CONSULTAT 6 6 [facility] [place] NEW/ESTAB CO PATIENT 60 MIN EMERGENCY 97517 S[facility] PASCUAL 6 6 PHYSICIAN BRYCE DEPARTMEN S, PLLC T VISIT MODERATE SEVERITY EMERGENCY 01135 SMILEY PASCUAL DEPT 6 6 PHYSICIAN BRYCE VISIT S, PLLC HIGH SEVERITY& THREAT FUNCJ OFFICE 14611 [facility] OUTPATIEN 6 6 PHYSICIAN T VISIT S GROUP 25 MINUTES [facility] [place] [facility] 6 6 [facility] OUTPATIEN INC T EMERGENCY 93688 SMILEY SUGGS [facility] 6 6 PHYSICIAN DEPARTMEN S, PLLC T VISIT LOW/MODER SEVERITY [facility] [place] [facility] 6 6 [facility] OUTPATIEN INC T EMERGENCY 39914 [place] 6 6 [facility] DEPARTMEN INC T VISIT LOW/MODER SEVERITY EMERGENCY 28042 SMILEY PASCUAL 6 6 PHYSICIAN BRYCE DEPARTMEN S, PLLC T VISIT MODERATE SEVERITY HOSPITAL [facility] 6 6 N OUTPATIEN COMMUNTIY T HOSPITA OFFICE 81068 [facility] ISSA OUTPATIEN 6 6 PHYSICIAN JARON T NEW 20 S GROUP MINUTES EMERGENCY 02742 SMILEY ARMIJO DEPT 6 6 PHYSICIAN CASANDRA VISIT S, PLLC HIGH SEVERITY& THREAT FUNCJ EMERGENCY 14454 SMILEY PASCUAL 6 6 PHYSICIAN BRYCE DEPARTMEN S, PLLC T VISIT HIGH/URGE NT SEVERITY HOSPITAL [facility] - 6 6 N OUTPATIEN COMMUNTIY T HOSPITA EMERGENCY 37813 SMILEY PASCUAL DEPT 6 6 PHYSICIAN BRYCE VISIT S, PLLC HIGH SEVERITY& THREAT FUNCJ OFFICE 96178 [facility] 6 6 T VISIT BARIATRIC 25 SURGICAL MINUTES HOSPITAL [facility] - 6 6 HEALTH OUTPATIEN [place] T EMERGENCY 74264 ANGELITO [place] 6 6 EMERGENCY HOW DEPARTMEN PHYS PSC T VISIT MODERATE SEVERITY EMERGENCY 41669 [place] 6 6 [facility] DEPARTMEN INC T VISIT LOW/MODER SEVERITY [facility] [place] [facility] 6 6 [facility] OUTPATIEN INC T EMERGENCY 82959 SMILEY BAGLEY DEPT 6 6 PHYSICIAN FOR VISIT S, PLLC HIGH SEVERITY& THREAT [facility] [place] - 6 6 [facility] OUTPATIEN INC T EMERGENCY 24534 SMILEY PASCUAL 6 6 PHYSICIAN BRYCE DEPARTMEN S, [facility] T VISIT HIGH/URGE NT SEVERITY EMERGENCY 00612 SMILEY SUGGS [facility] 6 6 PHYSICIAN DEPARTMEN S, [facility] T VISIT HIGH/URGE NT SEVERITY EMERGENCY 43151 [facility] 6 6 ROSALEE JOSE ANGEL DEPARTMEN EMERGENCY T VISIT PHYS HIGH/URGE NT SEVERITY HOSPITAL [facility] 6 6 N OUTPATIEN COMMUNTIY T HOSPCAPE [facility] EMERGENCY 46705 SMILEY PASCUAL DEPT 6 6 PHYSICIAN BRYCE VISIT S, [facility] HIGH SEVERITY& THREAT [facility] [place] [facility] 6 [facility] OUTPATIEN INC T OFFICE 20471 [facility] CONSULT 6 6 N ION NEUROLOGY NEW/ESTAB PATIENT 60 MIN OFFICE 48981 [facility] OUT[facility]IEN 6 6 MATTI MATTI T NEW 30 MINUTES OFFICE 10064 SCALF LEI SCALF LEI OUTPATIEN 6 6 T VISIT 25 MINUTES EMERGENCY 63173 SMILEY PASCUAL DEPT 6 6 PHYSICIAN BRYCE VISIT S, [facility] HIGH SEVERITY& THREAT FUNJ OFFICE 81673 [facility] [facility] OUTPATIEN 6 6 [facility] T VISIT INTERNAL 15 MED MINUTES HOSPITAL [facility] - 6 6 HEALTH OUTPATIEN [facility] [place] - 6 6 [facility] OUTPATIEN INC T EMERGENCY 19586 S[facility] SANCHEZEY DEPT 6 6 PHYSICIAN BRYCE VISIT S, PLLC HIGH SEVERITY& THREAT FUNJ OFFICE 10392 [facility] BOLIEK OUTPATIEN 6 6 HEALTH KADIE T VISIT MEDICAL 15 GROUP MINUTES OFFICE 09849 WENDY SANCHEZ MICHELLE OUTPATIEN 6 6 T VISIT BARIATRIC 25 SURGICAL MINUTES [facility] [place] [facility] 6 6 [facility] T OFFICE 50476 [place] ARSLAN OUTPATIEN 6 6 [facility] T VISIT INTERNAL 15 MED MINUTES INITIAL 99642 [facility] PREVENTIV 6 6 PHYSICIAN E S GROUP MEDICINE NEW PATIENT 40-64YRS [facility] [place] - 6 6 [facility] T OFFICE 69201 [facility] BOLIEK OUTPATIEN 6 6 PRIMARY KADIE T VISIT CARE OF 15 ABISAI MINUTES OFFICE 63788 [place] A[facility] OUTPATIEN 6 6 [facility] T VISIT INTERNAL 15 MED MINUTES [facility] [place] [facility] 6 6 [facility] INC T OFFICE 30555 WENDY SANCHEZ MICHELLE OUTPATIEN 5 5 T VISIT BARIATRIC 25 SURGICAL MINUTES OFFICE 74997 ATKINS ATKINS OUTPATIEN 5 5 TRA TRA T VISIT 25 MINUTES PERIODIC 90325 [facility] DE[facility] HLTH DEPT PATIENT JAZZ JAZZ 40-64YRS OFFICE 73434 WENDY SANCHEZ MICHELLE OUTPATIEN 5 5 T VISIT BARIATRIC 15 SURGICAL MINUTES [facility] [place] [facility] 5 5 [facility] OUT[facility] INC T OFFICE 39953 [place] ARSL[facility] OUTPATIEN 5 5 [facility] T NEW 30 INTERNAL MINUTES MED [facility] [place] - 5 5 [facility] OUTPATIEN INC T OFFICE 93210 [facility] PETTEY OUTPATIEN 5 5 PHYSICIAN JAM T VISIT S GROUP 15 MINUTES OFFICE 58081 GASTROENT CASE JUS OUTPATIEN 5 5 EROLOGY T VISIT AND 15 HEPATOL MINUTES OFFICE 99897 [facility] OUTPATIEN 5 5 HEALTH KADIE T VISIT MEDICAL 10 GROUP MINUTES [facility] [place] - 5 5 N OUTPATIEN COMMUNTIY T [facility] [place] - 5 5 [facility] OUTPATIEN INC T EMERGENCY 10464 SMILEY HUTCHISON 5 5 PHYSICIAN KENNY GARCIA S [facility] T VISIT HIGH/URGE NT SEVERITY [facility] - 5 5 N OUTPATIEN COMMUNTIY T [facility] OFFICE 60354 GASTROENT CASE JUS OUTPATIEN 5 5 EROLOGY T NEW 45 AND [facility] [place] [facility] T [facility] [place] [facility] 5 5 [facility] OUTPATIEN INC T EMERGENCY 50362 [place] 5 5 [facility] DEPARTMEN INC T VISIT LOW/MODER SEVERITY OFFICE 51349 DANIEL SANCHEZ OUTPATIEN 5 5 HUBER HUBER T VISIT 15 MINUTES [facility] [place] - 5 5 [facility] OUTPATIEN INC T EMERGENCY 78505 [place] 5 5 [facility] DEPARTMEN INC T VISIT MODERATE SEVERITY [facility] - 5 5 N OUTPATIEN COMMUNTIY T [facility] [place] - 5 5 N OUTPATIEN COMMUNTIY T [facility] [place] [facility] 5 5 N INPATIENT COMMUNTIY [facility] [place] - 5 5 [facility] OUTPATIEN INC T OFFICE 24248 WENDY MARTINEZ OUTPATIEN 5 5 T VISIT BARIATRIC 40 SURGICAL MINUTES OFFICE 94202 DANIEL SANCHEZ OUTPATIEN 5 5 HUBER HUBER T VISIT 15 MINUTES EMERGENCY 62195 [place] 5 5 [facility] DEPARTMEN INC T VISIT LOW/MODER SEVERITY [facility] [place] - 5 5 [facility] OUTPATIEN INC T [facility] [place] [facility] 5 5 [facility]PATIEN INC T [facility] 5 5 N OUTPATIEN COMMUNTIY T [facility] [place] [facility] 5 5 [facility] OUTPATIEN INC T OFFICE 22915 [place] [facility]RE OUTPAT[facility] 5 5 [facility] MINUTES P [facility] [place] - 5 5 [facility] OUTPATIEN [facility] T OFFICE 03492 MELANIE NOGUEIRA OUTPATIEN 5 5 MEDICAL JAM T VISIT SERV 15 FOUNDATIO MINUTES N OFFICE 54855 [place] WEISS JR OUTPATIEN [address] MINUTES P OFFICE 13791 [facility] OUTPATIEN 5 5 PHYSICIAN JAM T NEW 30 S GROUP MINUTES OFFICE 12421 [facility] CONS[facility]AT 5 5 [facility] NEW/ESTAB G PATIENT 60 MIN OFFICE 39915 DANIEL TOLEDOPATIEN 5 5 HUBER HUBER T VISIT 15 MINUTES EMERGENCY 08034 [place] 5 5 [facility] DEPARTMEN INC T VISIT HIGH/URGE NT SEVERITY EMERGENCY 62559 [place] ESCOTO 5 5 [facility] T VISIT P MODERATE SEVERITY [facility] [place] - 5 5 [facility] OUTPATIEN INC T [facility] [place] - 5 5 [facility] OUTPATIEN INC T EMERGENCY 36944 [place] 5 5 [facility] DEPARTMEN INC T VISIT HIGH/URGE NT SEVERITY OFFICE 22340 DANIEL TOLEDOPATIEN 5 5 [facility] T VISIT 15 MINUTES OFFICE 41789 DANIEL CHAND 4 4 [facility] T VISIT 15 MINUTES EMERGENCY 55136 [place] 4 4 [facility] T VISIT P LOW/MODER SEVERITY [facility] [place] Estes 4 4 [facility] OUTPATIEN INC T OFFICE 17008 DANIEL CHAND 4 4 [facility] T VISIT 15 MINUTES EMERGENCY 37963 [facility] DEPT 4 4 [place] VISIT EMERGENCY HIGH PHYS SEVERITY& THREAT [facility] [place] Estes 4 4 [facility] OUTPATIEN [facility] 4 4 N OUTPATIEN [facility] HOSPITA OFFICE 02932 DANIEL CHAND 4 4 [facility] T VISIT 15 MINUTES OFFICE 94747 MONALISA CHAPIN CONSULTAT 4 4 KADIE ION CARDIOLOG NEW/ESTAB Y AT CENT PATIENT 40 MIN [facility] [place] Est[facility] 4 4 [facility] T OFFICE 58556 MELANIE NOGUEIRA CONSULTAT 4 4 MEDICAL JAM ION SERV NEW/ESTAB FOUNDATIO PATIENT N 60 MIN [facility] [place] Estes 4 4 [facility] T OFFICE 90918 DANIEL CHAND 4 4 [facility] T VISIT 15 MINUTES OFFICE 33825 ATKINS ATKINS CONSULTAT 4 4 TRA TRA ION NEW/ESTAB PATIENT 40 MIN OFFICE 29204 [facility] 4 [facility] VIS[facility] MEDICAL 15 G MINUTES [facility] [place] - 4 4 [facility] T OFFICE 05586 [facility] OUTPATI[facility] 4 4 [facility] T NEW 30 MEDICAL MINUTES G EMERGENCY 11931 [facility] DE[facility] 4 4 [facility] MOH VISIT EMERGENCY HIGH PHYSI SEVERITY& THREAT FUN [facility] [place] - 4 4 [facility] OUT[facility] T EMERGENCY 94394 [place] 4 4 [facility] DEPART[facility] INC T VISIT MODERATE SEVERITY EMERGENCY 99241 [facility] DEPT 4 4 VISIT HIGH SEVERITY& THREAT FUNCJ OFFICE 79416 DANIEL DANIEL OUTPATIEN 4 4 [facility] T VISIT 15 MINUTES [facility] [place] - [facility] T EMERGENCY 91244 ANKUR PASCUAL DEPT 4 4 BRYCE BRYCE VISIT HIGH SEVERITY& THREAT FUN EMERGENCY 12261 [place] 4 4 [facility] T VISIT HIGH/URGE NT SEVERITY OFFICE 71882 SANCHEZ MICHELLE SANCHEZ MICHELLE CONSULTAT 4 4 ION NEW/ESTAB PATIENT 80 MIN OFFICE 32021 DANIEL SANCHEZ OUTPATIEN 4 4 HUBER HUBER T NEW 30 MINUTES [facility] [place] [facility] 4 4 [facility] OUT[facility]IEN INC T OFFICE 01300 ISSA ISSA OUTPATIEN 4 4 JARON JARON T VISIT 5 MINUTES OFFICE 38865 ISS[facility] ISSA OUTPATIEN 4 4 JARON JARON T NEW 30 MINUTES Emergency PATRIC Burnett MD (ER) 4 16:35 4 17:31 [facility] Emergency PATRIC BURNETT (ER) 3 16:45 3 18:19 [facility] [place] - 9 9 [facility] OUTPATIEN INC T EMERGENCY 11653 KIMBERLEE PASCUAL, 9 9 [facility] T VISIT ON HIGH/URGE NT SEVERITY EMERGENCY 61295 [place] 9 9 [facility] DEPART[facility] INC T VISIT LOW/MODER SEVERITY
--- OUTSIDE RECORDS SUMMARY | 2017-09-09 23:01 | External Medical Summary Rpt | CCD ---
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 [place] HX-ANTIBIOT [facility] ALLERGY Hospital NEC V01.6 V01.6 01-11-2013 [place] VENEREAL [facility] DIS CONTACT Hospital V0481 NEED 01-06-2009 [facility] PROPHYLACTI HEALTH C CENTRAL VACCINATION BANK ACCT &INOCULATIO N FLU 82793 PAIN IN 01-04-2009 [facility] THIGH 48713 DISPLCMT 01-04-2009 [facility] LUMBAR MEDICAL INTERVERT 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 8460 SPRAIN AND 01-04-2009 [facility] LUMBOSACRAL [employer] 8472 LUMBAR 01-04-2009 [place] [facility] STRAIN INC 79600 CONTUSION 01-04-2009 [email or web address] BACK [employer] 48618 CONTUSION 01-04-2009 [email or web address] BUTTOCK [facility] E8490 PLACE OF 01-04-2009 [place] OCCURRENCE, MEDICAL HOME IMAGING ASSOCIATES E8859 FALL FROM 01-04-2009 [facility] OTHER MEDICAL SLIPPING IMAGING TRIPPING OR ASSOCIATES [...] 17 79 PH E 6 94 AR PA MA OP CY 50 MC G SP [...] 43 ZA 91 17 17 63 PH PA 0 09 AR IN MA E CY [...] MA G CY CA PS UL E PA 00 08 09 8. 2 00 CL [...] 17 79 PH E 6 94 AR PA MA OP CY 50 MC G SP [...] 43 ZA 60 17 17 63 PH PA 1 09 AR IN MA E CY [...] D CY 10 MG TA BL ET PA 59 08 09 10 5 00 RI [...] CY MC G IN CARTY LE R LI 00 07 08 30 [...] 17 79 PH E 6 94 AR PA MA OP CY 50 MC G SP [...] 43 ZA 60 17 17 63 PH PA 1 09 AR IN MA E CY [...] 17 79 PH E 6 94 AR PA MA OP CY 50 MC G SP [...] YL 15 2- 7- 00 01 ve PA 02 20 20 18 AI ED 20 [...] 43 ZA 60 17 17 25 PH PA 1 00 AR IN MA E CY [...] 17 79 PH E 6 94 AR PA MA OP CY 50 MC G SP [...] 42 ZA 60 17 17 82 PH PA 1 16 AR IN MA E CY 5 MG TA BL ET FL 50 04 05 16 30 00 CL Ac UT 38 -1 -1 .0 00 IN ti IC 30 3- 2- 00 00 IC ve 70 20 20 42 ON 01 17 17 79 PH E 6 94 AR PA MA OP CY 50 MC G SP [...] 42 ZA 60 17 17 59 PH PA 1 23 AR IN MA E CY [...] L CY 4 MG TA BL ET PA 65 03 03 20 5 00 CL [...] 17 53 PH E 6 48 AR PA MA OP CY 50 MC G SP [...] 42 ZA 60 17 17 30 PH PA 1 05 AR IN MA E CY [...] MG #3 TA 93 BL 8 ET PA 59 02 03 10 5 00 RI [...] 17 53 PH E 9 48 AR PA MA OP CY 50 MC G SP [...] 42 ZA 81 17 17 08 PH PA 0 66 AR IN MA E CY [...] 12 01 20 10 00 CL Ac PA 46 -2 -2 .0 00 IN ti [...] 12 01 14 7 00 CL Ac PA 46 -1 -2 .0 00 IN ti [...] 17 53 PH E 9 48 AR PA MA OP CY 50 MC G SP [...] 2- 6- 00 IC 10 EY ve PA 00 20 20 ED 10 09 09 [...] 20 ZA 70 09 09 PH IN PA 6 AR CH IN MA AE E [...] Hgb A1c Bld (12-05-2016 11:40) Comment: The [place] [employer] recommends maintenance of Hemoglobin A1C [...] Procedures Procedure DOS Code Location Performer Comment 11526 [place] [facility] HYDROXY [address] [facility] INCLUDES INC INC FRACTIONS IF PERFORMED COLLECTIO 57535 [place] [facility] N VENOUS [address] [facility] BLOOD INC INC VENIPUNCT URE IM ADM 71466 [place] ARS[facility] PRQ ID 7 VALLEY SUBQ/IM INTERNAL NJXS 1 MED VACCINE BLOOD 38595 [place] [facility] COUNT [address] [facility] COMPLETE INC INC AUTO&AUTO DIFRNTL WBC COMPREHEN 74216 [place] [facility] SIVE [address] [facility] METABOLIC INC INC PANEL IIV4 VACC 68976 [place] A[facility] SPLIT 7 VALLEY VIRUS 0.5 INTERNAL ML DOS MED FOR IM USE LIPID 27444 [place] [facility] PANEL 7 [facility] INC INC UNCLASSIF J3490 [place] [facility] IED DRUGS 7 [place] [address] [place] [facility] MAXILLOFA [address] [facility] CIAL W/[place] [address] [place] [facility] HEAD/BRAI [address] [facility] N W/O INC INC CONTRAST MATERIAL THERAPEUT 40785 [place] [facility] IC [address] [facility] PROPHYLAC INC INC TIC/DX INJECTION SUBQ/IM GROUND A0425 [facility] 7 AMBULANCE AMBULANCE PER SERVICE SERVICE STATUTE MILE AMBULANCE A0429 [facility] SERVICE 7 AMBULANCE AMBULANCE BLS SERVICE SERVICE EMERGENCY TRANSPORT SCREENING G0202 [facility] 7 MEDICAL MAMMOGRAP IMAGING HY WILBERT ASS INCL CAD WHEN PERFORMD SCREENING 17114 [place] [facility] [address] [facility] MAMMOGRAP INC INC HY BI 2-VIEW BREAST INC CAD NERVE 75373 [facility] CONDUCTIO 7 N N STUDIES NEUROLOGY 9-10 STUDIES NEEDLE 93434 [facility] EM[facility] EA 7 N EXTREMTY NEUROLOGY W/PARASPI NL AREA COMPLETE NEEDLE 72177 [facility] EMG EA 7 N EXTREMTY NEUROLOGY W/PARASPI NL AREA COMPLETE NERVE 21192 [facility] CONDUCTIO 7 N N STUDIES NEUROLOGY 9-10 STUDIES OPHTH 50143 [employer] [facility] MEDICAL 7 XM&EVAL COMPRHNSV ESTAB PT 1/> ESOPHAGEA 53623 [facility] BUDDHIST L 7 [facility] STUDY W/INTERP& RPT BLOOD 91767 [place] HARE COUNT 7 MEM H[facility] COMPLETE INC AUTO&[place] [address] [facility] ABDOMEN & 7 MEDICAL PELVIS IMAGING W/O ASS CONTRAST MATERIAL URNLS DIP 99436 [place] [facility] [address] [facility] STICK/TAB INC INC LET REAGENT AUTO MICROSCOP Y URINE 33455 [place] [facility] [address] [facility] TEST INC INC [place] [address] [place] [facility] AMYLASE 7 [place] [address] [place] [facility] LIPASE 7 [facility] INC INC COMPREHEN 76766 [place] [facility] SIVE [address] [facility] METABOLIC INC INC PANEL UNCLASSIF J3490 [place] [facility] IED DRUGS [address] [facility] INC INC NITRIC 51056 [facility] OXIDE 7 [facility] [place] GAS CO DETERMINA TION SPMTRY 87686 [facility] W/VC 7 [facility] [place] Y ABHI CO W/WO MXML VOL VNTJ SPACR A4627 [place] MED MT MED BAG/RESRV 7 EQUIPMENT EQUIPMENT OR W/WO INC INC MASK W/METRD DOSE INHAL DEMO&/VIPUL 43419 [facility] L OF PT 7 [facility] [place] AERSL CO GEN/NEB/I NHLR/IP XTRNL ECG 81103 [place] [facility] & 48 HR 7 [facility] RECORDING INC INC RADIOLOGI 47904 [facility] C 7 MEDICAL EXAMINATI IMAGING ON KNEE 3 ASS VIEWS EXTERNAL 42288 [place] [facility] ECG 7 [facility] SCANNING INC INC ANALYSIS REPORT XTRNL ECG [address] [place] [address] [facility] S RHYTHM P W/I&R UP TO 48 HRS COMPREHEN 59412 [place] SIVE 7 [facility] METABOLIC INC INC PANEL ECG 41426 [facility] PASCUAL ROUTINE 7 PHYSICIAN ECG S, PLLC W/LEAST 12 LDS I&R ONLY ECG 85245 [place] [facility] ROUTINE [address] [facility] ECG INC INC W/LEAST 12 LDS TRCG ONLY W/O I&[place] [address] [place] TROPONIN 7 [facility] QUANTITAT INC INC SABIHA CREATINE 39075 [place] [facility] KINASE MB 7 [facility] FRACTION INC INC ONLY CREATINE 44517 [place] [facility] KINASE 7 [facility] TOTAL INC INC ANES 64954 [facility] GI 7 [place] [facility]OSCOPY ANESTHESI PROXIMAL A TO DUODENUM EGD 79716 [facility] TRANSORAL 7 PHYS SURG PHYS SURG BIOPSY CTR CTR SINGLE/MU LTIPLE ECG 04513 MONALISA BENSON ROUTINE 7 HEART ECG SPECIALIS W/LEAST TS, 12 LDS I&R ONLY ECG 35024 [facility] ARMIJO ROUTINE 7 PHYSICIAN ECG S, PLLC W/LEAST 12 LDS I&R ONLY COMPREHEN 19319 [place] SIVE 7 [facility] METABOLIC INC INC PANEL ECG 02433 [place] [facility] ROUTINE 7 [facility] ECG INC INC W/LEAST 12 LDS TRCG ONLY W/O I&[place] [address] [place] TROPONIN 7 [facility] QUANTITAT INC INC SABIHA ECG 93702 [facility] ROUTINE 7 [facility] ECG [facility] W/LEAST 12 LDS TRCG ONLY W/O I&R COLLECTIO 20777 [facility] B[facility] N VENOUS 7 [facility] BLOOD [facility] [place] [address] [facility], PICKLESIM SURG 7 LLC ER JR PATHOLOGY GROSS&BRYCE ROSCOPIC EXAM COLPOSCOP 98379 [facility] KAM Mercedes CERVIX 7 PHYSICIAN BX CERVIX S GROUP & [place] [address] [facility] BUDDHIST TRACT 7 [facility] UPPER [facility] W/WO DELAYED IMAGES W/KUB UNCLASSIF J3490 [place] [facility] IED DRUGS 7 [place] [address] [place] HEAD/BRAI 7 [facility] N W/O INC INC CONTRAST MATERIAL COMPREHEN 56879 [place] SIVE 7 [facility] [place] [address] [place] [facility] GAMMAGLOB 7 [facility] ULIN IGA INC INC IGD IGG IGM EACH BLOOD 16789 [place] [facility] COUNT 7 [facility] COMPLETE INC INC AUTO&AUTO DIFRNTL WBC COLLECTIO 31390 [place] N VENOUS 7 [facility] BLOOD INC INC VENIPUNCT URE GONADOTRO 98209 [place] PIN 7 [facility] FOLLICLE INC INC STIMULATI NG HORMONE GONADOTRO 96916 [place] PIN 7 [facility] LUTEINIZI INC INC NG HORMONE LIPID 49393 [place] PANEL 7 [facility] INC INC BLOOD 21443 [place] COUNT 7 [facility] COMPLETE INC INC AUTO&AUTO DIFRNTL WBC URNLS DIP 77772 [place] [facility] 7 [facility] STICK/TAB INC INC LET REAGENT AUTO MICROSCOP Y COMPREHEN 82853 [place] SIVE 7 [facility] METABOLIC INC INC PANEL UNCLASSIF J3490 [place] IED DRUGS 7 [place] [address] [place] [facility] INFUSION 7 [facility] THERAPY INC INC PROPHYLAX IS/[place] [address] [place] [facility] INFUSION 7 [facility] THERAPY/P INC INC ROPHYLAXI S /DX 1ST TO 1 HR UNCLASSIF J3490 [place] [facility] IED DRUGS 7 [facility] [place]X [address]67 YVETTE BUX DX/THER 7 MD RHIANNON, SBST PSC INTRLMNR LMBR/SAC W/IMG GDN IADNA 93156 [facility] HUMAN 7 LLC PAPILLOMA VIRUS HIGH-RISK TYPES CYTP 22263 [facility], [facility] CERVICAL/ 7 LLC VAGINAL REQ INTERP PHYSICIAN CYTP C/V 97998 [facility], [facility] AUTO THIN 7 LLC LYR PREPJ SCR MNL RESCR PHYS URNLS DIP 18292 [facility] HUMPHREY 7 PHYSICIAN STICK/TAB S GROUP LET RGNT NON-AUTO W/O MICRSCP ECG 30382 [place] [facility] ROUTINE 7 [facility] ECG INC INC W/LEAST 12 LDS TRCG ONLY W/O I&R BLOOD 70623 [place] [facility] COUNT 7 [facility] COMPLETE INC INC AUTO&AUTO DIFRNTL WBC PROTEIN 85070 [place] ELECTROPH 7 [facility] ORETIC INC INC FRACTJ&QU ANTJ SERUM COLLECTIO 30124 [place] [facility] N VENOUS 7 [facility] BLOOD INC INC VENIPUNCT URE ANTINUCLE 20120 [place] AR 7 [facility] ANTIBODIE INC INC S SANNA COMPREHEN 72106 [place] SIVE 7 [facility] METABOLIC INC INC PANEL URNLS DIP 13447 [place] [facility] 7 [facility] STICK/TAB INC INC LET RGNT AUTO W/O MICROSCOP Y CREATININ 02520 [place] [facility] E BLOOD 7 [facility] INC INC COLLECTIO 17442 [place] [facility] N VENOUS [address] [facility] [place]LO[place] [address] [place] [facility] UREA [address] [facility] NITROGEN INC INC QUANTITAT SABIHA CT THORAX 94967 [facility] 7 MEDICAL W/CONTRAS IMAGING T ASS MATERIAL UNCLASSIF J3490 [place] IED DRUGS 7 [facility] INC INC ECG 20952 [facility] ROUTINE 7 PHYSICIAN ECG S GROUP W/LEAST 12 LDS I&R ONLY NJX 79612 [facility] DUFF DX/THER 7 MD RHIANNON, AGT PVRT PSC FACET JT LMBR/SAC 1 LEVEL NJX 95273 [facility] DUFF DX/THER 7 MD RHIANNON, AGT PVRT PSC FACET JT LMBR/SAC 2ND LEVEL ECG 64449 [place] [facility] ROUTINE 7 [facility] ECG INC INC W/LEAST 12 LDS TRCG ONLY W/O I&R NJX 86992 [facility] DUFF DX/THER 7 MD RHIANNON, AGT PVRT PSC FACET JT LMBR/SAC 3+ [place] [address] [place] TROPONIN [address] [facility] QUANTITAT INC INC SABIHA RADEX 39694 [place] [facility] ABDOMEN [address] [facility] COMPL INC INC W/DCBTS&/ ERC VIEWS ECG 25615 [place] ROUTINE 7 [facility] ECG INC INC W/LEAST 12 LDS TRCG ONLY W/O I&R THER 87781 [place] PROPH/DX [address] [facility] NJX IV INC INC PUSH SINGLE/1S T SBST/DRUG BLOOD 58542 [place] [facility] COUNT 7 [facility] COMPLETE INC INC AUTO&[place] [address] [place] [facility] LIPASE 7 [place] [address] [place] [facility] AMYLASE 7 [facility] INC INC CREATINE 81059 [place] [facility] KINASE MB [address] [facility] FRACTION INC INC ONLY CREATINE 58731 [place] [facility] KINASE 7 [facility] TOTAL INC INC COMPREHEN 48959 [place] [facility] SIVE [address] [facility] METABOLIC INC INC PANEL ECG 62916 [place] ROUTINE 7 [facility] W/LEAST P 12 LDS I&R ONLY THERAPEUT 20395 [place] [facility] IC 7 [facility] INJECTION INC INC IV PUSH EACH NEW DRUG UNCLASSIF J3490 [place] [facility] IED DRUGS [address] [facility] INC INC ECG 76410 [facility] ROUTINE 7 PHYSICIAN ECG S GROUP W/LEAST 12 LDS I&R ONLY ECG 83921 [place] ROUTINE 7 [facility] ECG INC INC W/LEAST 12 LDS TRCG ONLY W/O I&R ECG 88774 [facility] ROUTINE 7 PHYSICIAN ECG S GROUP W/LEAST 12 LDS I&R ONLY XTRNL ECG 03644 [place] [facility] & 48 HR 7 [facility]OSP RECORDING INC INC ECG 53517 [facility] ROUTINE 7 PHYSICIAN ECG S, PLLC W/LEAST 12 LDS I&R ONLY AMB A0427 [facility] SERVICE 7 AMBULANCE AMBULANCE ALS SERVICE SERVICE EMERGENCY TRANSPORT LEVEL 1 RADIOLOGI 49088 [facility] C EXAM 7 PHYSICIAN CHEST 2 S, PLLC VIEWS FRONTAL&L ATERAL MRI 64189 [facility] SPINAL 7 CANAL ORTHOPAED LUMBAR ICS PSC W/O CONTRAST MATERIAL COMPREHEN 16234 [place] SIVE 7 [facility] METABOLIC INC INC PANEL ECG 01861 [place] ROUTINE 7 [facility] ECG INC INC W/LEAST 12 LDS TRCG ONLY W/O I&R BLOOD 43932 [place] [facility] COUNT 7 [facility] COMPLETE INC INC AUTO&[place] [address] [place] [facility] TROPONIN 7 [facility] QUANTITAT INC INC SABIHA CREATINE 24016 [place] KINASE MB 7 [facility] FRACTION INC INC ONLY CREATINE 96825 [place] KINASE 7 [facility] TOTAL INC INC GROUND A0425 [facility] MILEAGE 7 AMBULANCE AMBULANCE PER SERVICE SERVICE STATUTE MILE RADEX 75414 [facility] SPINE 7 [facility] LUMBOSACR ORTHOPAED AL 2/[address] [place] [address] [facility] CERVICAL 7 MEDICAL MEDICAL SPINE W/O IMAGING IMAGING CONTRAST ASS ASS MATERIAL ECG 34927 [place] ROUTINE 7 [facility] ECG INC INC W/LEAST 12 LDS TRCG ONLY W/O I&[place] [address] [facility] [facility] HEAD/BRAI 7 MEDICAL N W/O IMAGING CONTRAST ASS MATERIAL ECG 83876 [place] ROUTINE 7 [facility] W/LEAST P 12 LDS I&[place] [address] [place] FOLIC 7 [facility] ACID INC INC SERUM 25 91516 [place] HYDROXY 7 [facility] INCLUDES INC INC FRACTIONS IF PERFORMED CYANOCOBA 07254 [place] [facility] LYUBOV 7 [facility] VITAMIN INC INC B-12 COLLECTIO 05964 [place] [facility] N VENOUS [address] [facility] BLOOD INC INC VENIPUNCT URE THERAPEUT 35417 [place] [facility] IC 7 [facility] PROPHYLAC INC INC TIC/DX INJECTION SUBQ/IM UNCLASSIF J3490 [place] [facility] IED DRUGS 7 [facility] INC INC UNCLASSIF J3490 [place] [facility] IED DRUGS 7 [facility] INC INC URNLS DIP 72428 [place] [facility] 7 [facility] STICK/TAB INC INC LET REAGENT AUTO MICROSCOP Y DESTRUCTI 78813 [facility] ON BENIGN 7 LESIONS UP [place] [address] BUD[facility]IST BUDDHIST TRACT 7 [facility] [place] W/WO DELAYED IMAGES W/KUB RADEX 98719 [place] [facility] ABDOMEN 1 7 [facility] INC INC ANTEROPOS TERIOR VIEW TX PROC G0238 [place] [facility] IMPRV 7 [facility] RESP INC INC FUNCT NOT G0237 FCE-FCE 15MIN COMPREHEN 05412 [place] SIVE 7 [facility] [place] [address] [place] [facility] INFUSION 7 [facility] THERAPY/P INC INC ROPHYLAXI S /DX 1ST TO 1 HR BLOOD 20494 [place] [facility] COUNT 7 [facility] COMPLETE INC INC AUTO&AUTO DIFRNTL WBC RAD EXP G9500 [facility] INDICES/E 7 MEDICAL XP TM & IMAGING NUMB ASS FLUORO IMAGES DOC RADEX 02805 [place] [facility] ESOPHAGUS 7 [facility] INC INC INJECTION J1100 BUD[facility]IST BUDDHIST [address] [place] [address] DEXAMETHO [facility] SONE SODIUM PHOSPHATE 1 MG INJECTION J1170 BUD[facility]IST BUDDHIST [address] [place] [address] HYDROMORP [facility] KURTIS UP TO 4 MG INJECTION J0330 BUDDHIST BUDDHIST [address] [place] [address] SUCCINYLC [facility] HOLINE CHLORIDE UP TO 20 MG INJECTION J2405 BUDDHIST BUDDHIST [address] [place] [address] ONDANSETR [facility] ON HCL PER 1 MG ANES 30068 [facility] INTRAPERI 7 [place] TONEAL ANESTHESI UPPER A ABDOMEN W/LAPS NOS INJECTION J1650 BUD[facility]IST BUDDHIST [address] [place] [address] ENOXAPARI [facility] N SODIUM 10 MG INJECTION J2704 BUDDHIST BUDDHIST PROPOFOL [address] [place] [address] 10 MG [facility] INJECTION J2710 BUDDHIST BUDDHIST [address] [place] [address] NEOSTIGMI [facility] NE METHYLSUL FATE UP TO 0.5 MG INJECTION J3010 BUDDHIST BUDDHIST FENTANYL [address] [place] [address] CITRATE [facility] 0.1 MG LAPS RPR 70563 BUDDHIST GARCIA PARAESPHG 7 HEALTH L HRNA MEDICAL INCL GROUP FUNDPLSTY W/O MESH ECG 92902 BUDDHIST ANNA ROUTINE 7 HEALTH ECG MEDICAL W/LEAST GROUP 12 LDS I&R ONLY BLOOD 05214 BUDDHIST BUDDHIST COUNT 7 [facility]ALTH HEALTH COMPLETE [facility] AUTOMATED ECG 48468 BUDDHIST BUDDHIST ROUTINE 7 [facility] ECG [facility] W/LEAST 12 LDS TRCG ONLY W/O I&R GLUCOSE 60594 BUDDHIST BUDDHIST QUANTITAT 7 [facility] SABIHA BLOOD [facility] XCPT REAGENT STRIP HEMOGLOBI 11943 BUDDHIST BUDDHIST N 7 [facility] GLYCOSYLA [facility] LANEY A1C COLLECTIO 71859 BUDDHIST BUDDHIST N VENOUS 7 [facility] BLOOD [facility] [place] [address] [facility] [facility] LIPASE 6 [place] [address] [facility] [facility] AMYLASE 6 [facility] INC RADEX 86087 [facility] ABDOMEN 6 MEDICAL MEDICAL COMPL IMAGING IMAGING W/DCBTS&/ ASS ASS ERC VIEWS BLOOD 98083 [facility] [facility] COUNT 6 [facility] COMPLETE INC INC AUTO&AUTO DIFRNTL WBC ECG 15300 [place] [facility] ROUTINE 6 [facility] ECG INC INC W/LEAST 12 LDS TRCG ONLY W/O I&R RADIOLOGI 30886 [facility] C EXAM 6 MEDICAL MEDICAL CHEST 2 IMAGING IMAGING VIEWS ASS ASS FRONTAL&L ATERAL COMPREHEN 99545 [place] [facility] SIVE 6 [facility] METABOLIC INC INC PANEL ECG 00050 [place] CHAVEZ JR ROUTINE 6 [facility] W/LEAST P 12 LDS I&[place] [address] [place] [facility] INFUSION 6 [facility] THERAPY/P INC INC ROPHYLAXI S /DX 1ST TO 1 HR THERAPEUT 17825 [place] [facility] IC 6 [facility] INJECTION INC INC IV PUSH EACH NEW DRUG BLOOD 21448 [place] [facility] OCCULT 6 [facility] PEROXIDAS INTERNAL E ACTV MED QUAL FECES 1 DETER GLUC BLD 05831 [place] [facility] GLUC MNTR 6 [facility] DEV INC INC CLEARED FDA SPEC HOME USE THERAPEUT 60996 [place] [facility] IC [address] [facility] PROPHYLAC INC INC TIC/DX INJECTION SUBQ/[place] [address] [facility] [facility] HEAD/BRAI 6 [facility] N W/O INC INC CONTRAST MATERIAL RADIOLOGI 31155 [place] TALLEYON C [address] [facility] EXAMINATI INC INC ON PELVIS 1/2 VIEWS RADEX 91513 [place] [facility] SACRUM & 6 [facility] COCCYX INC INC MINIMUM 2 VIEWS RADEX 35627 [place] [facility] SPINE 6 [facility] LUMBOSACR INC INC AL MINIMUM 4 VIEWS URINE 20505 [place] [facility] 6 [facility] TEST INC INC VISUAL COLOR CMPRSN METHS BLOOD 34792 [place] [facility] COUNT [address] [facility] COMPLETE INC INC AUTO&AUTO DIFRNTL WBC IAADI 58838 [place] [facility] INFLUENZA [address] [facility] B VIRUS INC IAADI 90807 [place] [facility] INFFLUENZ 6 [facility] [place] [address] [place] [facility] STREPTOCO 6 [facility] CCUS INC INC GROUP A RADEX 74608 [place] [facility] SINUSES 6 [facility] PARANASAL INC INC COMPL MINIMUM 3 VIEWS RADIOLOGI 57729 [place] HARLEEN C EXAM 6 MEDICAL ADRIANNA CHEST 2 IMAGING VIEWS ASS FRONTAL&L ATERAL CUL BACT 40283 [place] XCPT [address] [facility] URINE INC INC BLOOD/STO OL AEROBIC ISOL DECALCIFI 82539 P&C LABS, PICKLESIM CATION 6 [facility] [place] [address] P&C LABS, PICKLESIM SURG 6 [facility] PATHOLOGY GROSS&BRYCE ROSCOPIC EXAM ANESTHESI 93470 [facility] A NOSE & 6 ANESTH ACCESSORY OF THE SINUSES BLUE NOS ECG 72666 [place] ROUTINE 6 [facility] ECG INC INC W/LEAST 12 LDS TRCG ONLY W/O I&R ECG 46447 [place] MAT[place] ROUTINE 6 [facility] W/LEAST P 12 LDS I&R ONLY BLOOD 22347 [place] COUNT 6 [facility] COMPLETE INC INC AUTO&AUTO DIFRNTL WBC ANTIBODY 37979 [place] HERPES [address] [facility] SMPLX INC INC TYPE 1 ANTIBODY 65531 [place] VIRUS NOT 6 [facility] INC INC ELSEWHERE SPECIFIFE D COMPREHEN 47484 [place] SIVE 6 [facility] METABOLIC INC INC PANEL COLLECTIO 01738 [place] N VENOUS [address] [facility] [place] [address] [place] MAXILLOFA [address] [facility] [facility] CIAL W/[place] [address] [place] KALINA HEAD/BRAI 6 MEDICAL N W/O IMAGING CONTRAST ASS MATERIAL URINE 95756 [place] [facility] 6 [facility] TEST INC [place] [address] [place] CERVICAL [address] [facility] SPINE W/O INC INC CONTRAST MATERIAL COMPRE 49799 MAEGAN ISSA AUDIOMETR 6 JARON JARON Y THRESHOLD EVAL SP RECOGNIJ TYMPANOME 06829 MAEGAN ISSA TRY 6 JARON JARON DISTORT 40205 MAEGAN VERAON PRODUCT 6 JARON JARON EVOKED OTOACOUST IC EMISNS LIMITD PULMONARY 72585 [place] NOGUEIR[place] STRESS 6 MEDICAL TESTING SERV SIMPLE FOUNDATIO N GAS 93188 [place] DILUT/WAS 6 MEDICAL MEDICAL HOUT LUNG SERV SERV VOL W/WO FOUNDATIO FOUNDAT[place] DISTRIB N N VENT&[place] [address] [place] NO[place] DIFFUSING 6 MEDICAL CAPACITY SERV FOUNDATIO N ELIG CLIN G8427 STAMPING RODRIGUEZ TRI ATTSTS 6 GROUND DOC M REC FAMILY OBTD CLINI UPD/REV PT MEDS ECG 16050 [place] CHAVEZ JR ROUTINE 6 [facility] W/LEAST P 12 LDS I&R ONLY IM ADM 69324 [facility] PRQ ID 6 [facility] SUBQ/IM HLTH DEPT HLTH DEPT NJXS EA JAZZ JAZZ VACCINE TDAP 55875 [facility] VACCINE 7 6 [facility] DISTRICT YRS/> IM HLTH DEPT HLTH DEPT JAZZ JAZZ IM ADM 17657 [facility] PRQ ID 6 [facility] DISTRICT SUBQ/IM HLTH DEPT HLTH DEPT NJXS 1 JAZZ JAZZ VACCINE BLOOD 48457 [place] COUNT 6 [facility] COMPLETE INC INC AUTO&AUTO DIFRNTL WBC SYPHILIS 07536 [facility] TEST 6 [facility] DISTRICT NON-TREPO HLTH DEPT HLTH DEPT NEMAL JAZZ JAZZ ANTIBODY QUAL COLLECTIO 00704 [place] N VENOUS 6 [facility] BLOOD INC INC VENIPUNCT URE BLOOD 86846 [place] OCCULT 6 [facility] PEROXIDAS INC INC E ACTV QUAL FECES 1-3 SPEC SKIN TEST 76642 [facility] 6 [facility] DISTRICT TUBERCULO HLTH DEPT HLTH DEPT SIS JAZZ JAZZ INTRADERM AL XTRNL ECG 57023 [place] MAT[place] 6 [facility] S RHYTHM P W/I&R UP TO 48 HRS PROF SVCS 98336 ALLERGY ROS[place] MAR ALLG 6 PARTNERS IMMNTX X OF [place] W/PRV CO ALLGIC XTRCS NJXS RHEUMATOI 81390 [place] D FACTOR 6 [facility] QUANTITAT INC INC SABIHA ANTINUCLE 18180 [place] AR 6 [facility] ANTIBODIE INC INC S SANNA ECG 78857 [place] ROUTINE 6 [facility] W/LEAST P 12 LDS I&R ONLY SPMTRY 73122 ALLERGY ROS[place]HAL MAR W/VC 6 PARTNERS EXPIRATOR OF [place] Y ABHI CO W/WO MXML VOL VNTJ GROUND A0425 [facility] 6 AMBULANCE PATY PER SERVICE STATUTE MILE NITRIC 90154 ALLERGY ROSENTHAL MAR OXIDE 6 [facility] [place] GAS CO DETERMINA TION SEDIMENTA 59100 [place] TION RATE 6 [facility] RBC INC INC NON-AUTOM ATED BLOOD 92867 [place] COUNT 6 [facility] RETICULOC INC INC YTE AUTOMATED BLOOD 62399 [place] COUNT [address] [facility] COMPLETE INC INC AUTO&AUTO DIFRNTL WBC AMBULANCE A0429 STACY PALACIOMago SERVICE 6 AMBULANCE PATY BLS SERVICE EMERGENCY TRANSPORT BLOOD 51052 [place] COUNT 6 [facility] RETICULOC INC INC YTE AUTOMATED COLLECTIO 80991 [place] N VENOUS 6 [facility] BLOOD INC INC VENIPUNCT URE SEDIMENTA 36123 [place] TION RATE [address] [facility] RBC INC INC NON-AUTOM ATED BASIC 16468 [place] METABOLIC 6 [facility] PANEL INC INC CALCIUM TOTAL BONE 86943 [place] &/JOINT 6 [facility] IMAGING INC INC WHOLE BODY TECHNETIU A9503 [place] Mont[place] TC-99M 6 [facility] MEDRONATE INC INC DX UP TO 30 MCI BLOOD 09034 [place] COUNT 6 [facility] COMPLETE INC INC AUTO&AUTO DIFRNTL WBC RADIOLOGI 42748 [facility] C EXAM 6 MEDICAL MEDICAL CHEST 2 IMAGING IMAGING VIEWS ASS ASS FRONTAL&L ATERAL ANES 22811 [place] BRITTNY LOWER 6 ANESTHESI INTESTINE A GROUP PS ENDOSCOPY DISTAL DUODENUM GONADOTRO 69318 [place] PIN 6 [facility] FOLLICLE INC [place] [address] [place] THYROID 6 [facility] STIMULATI INC INC NG HORMONE TSH GONADOTRO 08787 [place] PIN 6 [facility] LUTEINIZI [place] [address] [place] THYROXINE [address] [facility] TOTAL INC INC COLLECTIO 56415 [place] N VENOUS [address] [facility] [facility] BLOOD INC INC VENIPUNCT URE THYROID 11037 [place] HORM 6 [facility] UPTK/THYR INC INC OID HORMONE BINDING RATIO RADIOLOGI 08315 [facility] C 6 MEDICAL MEDICAL EXAMINATI IMAGING IMAGING ON CHEST ASS ASS SINGLE VIEW FRONTAL ECG 08557 [place] BORDENSON ROUTINE 6 [facility] W/LEAST P 12 LDS I&R ONLY GROUND A0425 [facility] MILEAGE 6 AMBULANCE KILO PER SERVICE STATUTE MILE AMB A0427 [facility] SERVICE 6 AMBULANCE KILO ALS SERVICE EMERGENCY TRANSPORT LEVEL 1 PREPJ& 52906 ALLERGY ROSENT[place] MAR ALLERGEN 6 PARTNERS IMMUNOTHE OF TRE PEREZ CO 1/REGION[place] [address] [place] INFUSION 6 [facility] THERAPY INC INC PROPHYLAX IS/[place] [address] [place] INFUSION 6 [facility] THERAPY/P INC INC ROPHYLAXI S /DX 1ST TO 1 HR ECG 85070 [place] ROUTINE 6 [facility] W/LEAST P 12 LDS I&R ONLY RADIOLOGI 33714 [place] C 6 [facility] EXAMINATI INC INC ON KNEE 3 VIEWS COMPREHEN 41048 [place] SIVE 6 [facility] [place] [address] [place] HEAD/BRAI 6 [facility] N W/[place] [address] [place] TROPONIN 6 [facility] QUANTITAT INC INC SABIHA BLOOD 66177 [place] COUNT 6 [facility] COMPLETE INC INC AUTO&[place] [address] [place] CERVICAL 6 [facility] SPINE W/O INC INC CONTRAST MATERIAL ECG 92312 [place] ROUTINE [address] [facility] ECG INC INC W/LEAST 12 LDS TRCG ONLY W/O I&R CREATINE 81958 [place] KINASE MB 6 [facility] FRACTION INC INC ONLY CREATINE 01643 [place] KINASE 6 [facility] TOTAL INC INC SPACR A4627 [facility] [place] KRASNOPOL BAG/RESRV 6 EQUIPMENT ANTONIO LAUREN OR W/WO INC MASK W/METRD DOSE INHAL SPMTRY 77918 ALLERGY ROS[facility] MAR W/VC 6 PARTNERS EXPIRATOR OF [place] Y ABHI CO W/WO MXML VOL VNTJ PERCUTANE 75661 ALLERGY ROSENTHAL MAR OUS TESTS 6 [facility] [place] W/ALLERGE CO LEO EXTRACTS INTRACUTA 19133 ALLERGY ROSENTHAL MAR NEOUS 6 PARTNERS TESTS OF [place] W/ALLERGE CO LEO EXTRACTS NITRIC 23680 ALLERGY ROSENTHAL MAR OXIDE 6 [facility] [place] [address] [facility] HUMPHREY TRANSVAGI 6 PHYSICIAN MEAGAN NAL S GROUP ECG 78882 [place] CHAVEZ JR ROUTINE 6 [facility] W/LEAST P 12 LDS I&R ONLY IADNA 60574 [place] CHLAMYDIA 6 [facility] INC INC TRACHOMAT IS AMPLIFIED PROBE TQ IADNA 01788 [place] NEISSERIA 6 [facility] INC INC GONORRHOE [place] [address] [facility] [place] ANDREWS TRACT 6 RADIOLOGY RHO UPPER W/WO DELAYED IMAGES W/KUB ECG 11540 [place] ROUTINE 6 [facility] W/LEAST P 12 LDS I&R ONLY RADIOLOGI 85624 [place] CERRATO ALL C 6 MEDICAL EXAMINATI IMAGING ON CHEST ASS SINGLE VIEW FRONTAL ELECTROEN 83112 [facility] CEPHALOGR 6 N AM W/REC NEUROLOGY AWAKE&[place] [address] [facility] ABDOMEN & 6 MEDICAL MEDICAL PELVIS IMAGING IMAGING W/CONTRAS ASS ASS T MATERIAL ECG 44643 [place] ROUTINE 6 [facility] W/LEAST P 12 LDS I&R ONLY ELECTROEN 79448 [facility] CEPHALOGR 6 N N AM W/REC COMMUNTIY COMMUNTIY [facility] WSY RADIOLOGI 85851 SEJAL CERRATO ALL C 6 MEDICAL EXAMINATI IMAGING ON CHEST ASS SINGLE VIEW FRONTAL ECG 31663 [place] JR ROUTINE 6 [facility] W/LEAST P 12 LDS I&R ONLY RADEX 14840 SEJAL CERRATO ALL SPINE 6 MEDICAL THORACIC IMAGING 2 VIEWS ASS COMPUTER- 26807 SEJAL ABBOTTUTCHER AIDED 6 MEDICAL ADRIANNA DETECTION IMAGING ASS SCREENING MAMMOGRAP HY SCREENING G0202 [facility] ABBOTTHARLEEN 6 MEDICAL ADRIANNA MAMMOGRAP IMAGING HY WILBERT ASS INCL CAD WHEN PERFORMD COMPREHEN 62821 [place] SIVE 6 [facility] METABOLIC INC INC PANEL RADEX ABD 19953 SEJAL CERRATO ALL COMPL 6 MEDICAL AQT ABD IMAGING W/S/E/D ASS VIEWS 1 VIEW CH ECG 48668 [place] CHAVE[place] JR ROUTINE 6 [facility] W/LEAST P 12 LDS I&[place] [address] [place] INFUSION 6 [facility] THERAPY/P INC INC ROPHYLAXI S /DX 1ST TO 1 HR URNLS DIP 20833 [place] 6 [facility] STICK/TAB INC INC [place] [address] [place] TROPONIN 6 [facility] QUANTITAT INC INC SABIHA BLOOD 56894 [place] COUNT 6 [facility] COMPLETE INC INC AUTO&AUTO DIFRNTL WBC ECG 00782 [place] ROUTINE 6 [facility] ECG INC INC W/LEAST 12 LDS TRCG ONLY W/O I&[place] [address] [place] LACTATE 6 [place] [address] [place] INFUSION 6 [facility] THERAPY/P INC INC ROPHYLAXI S /DX 1ST TO 1 HR ECG 09133 [place] ROUTINE 6 [facility] W/LEAST P 12 LDS I&R ONLY RADIOLOGI 73347 SEJAL CERRATO ALL C EXAM 6 MEDICAL CHEST 2 IMAGING VIEWS ASS FRONTAL&L ATERAL COMPREHEN 27701 [place] SIVE 6 [facility] METABOLIC INC INC PANEL CULTURE 41037 [place] BACTERIAL 6 [facility] INC INC QUANTTATI VE COLONY COUNT URINE URINE 04366 [place] 6 [facility] TEST INC INC VISUAL COLOR CMPRSN METHS CREATINE 05121 [place] KINASE 6 [facility] H[facility] TOTAL INC INC CREATINE 48002 [place] KINASE MB 6 [facility] FRACTION INC INC ONLY ECG 57335 [place] ROUTINE 6 [facility] ECG INC INC W/LEAST 12 LDS TRCG ONLY W/O I&R BLOOD 80429 [place] COUNT 6 [facility] COMPLETE INC INC AUTO&[place] [address] [place] TROPONIN 6 [facility] QUANTITAT INC INC SABIHA URNLS DIP 05952 [place] 6 [facility] STICK/TAB INC INC LET REAGENT AUTO MICROSCOP Y RADEX ABD 94108 [place] CERRAT[place] ALL COMPL 6 MEDICAL AQT ABD IMAGING W/S/E/D ASS VIEWS 1 VIEW CH AMB A0427 [facility] SERVICE 6 AMBULANCE AMBULANCE ALS SERVICE SERVICE EMERGENCY TRANSPORT LEVEL 1 GROUND A0425 [facility] MILEAGE 6 AMBULANCE AMBULANCE PER SERVICE SERVICE STATUTE MILE COMPREHEN 91812 [facility] SIVE 6 N N METABOLIC COMMUNTIY COMMUNTIY PANEL HOSPITA HOSPITA MRI BRAIN 82275 [facility] BRAIN 6 N N STEM W/O COMMUNTIY COMMUNTIY [place] [address] [facility] INFUSION 6 N N HYDRATION COMMUNTIY COMMUNTIY EACH HOSPITA HOSPITA ADDITIONA L HOUR BLOOD 76646 [facility] COUNT 6 N N COMPLETE COMMUNTIY COMMUNTIY AUTO&AUTO HOSPITA HOSPITA DIFRNTL WBC THER 80654 [facility] PROPH/DX 6 N N NJX IV COMMUNTIY COMMUNTIY PUSH HOSPITA HOSPITA SINGLE/1S T SBST/DRUG COLLECTIO 22280 [facility] N VENOUS 6 N N BLOOD COMMUNTIY COMMUNTIY VENIPUNCT [facility] [place] [address] SEJAL CERRATO ALL ABDOMEN & 6 MEDICAL PELVIS IMAGING W/[place] [address] SEJAL CERRATO ALL HEAD/BRAI 6 MEDICAL N W/O IMAGING CONTRAST ASS MATERIAL RADIOLOGI 94656 SEJAL CERRATO ALL C 6 MEDICAL EXAMINATI IMAGING ON CHEST ASS SINGLE VIEW FRONTAL GROUND A0425 [facility] MILEAGE 6 AMBULANCE AMBULANCE PER SERVICE SERVICE STATUTE MILE AMB A0427 [facility] SERVICE 6 AMBULANCE AMBULANCE ALS SERVICE SERVICE EMERGENCY TRANSPORT LEVEL 1 ECG 62453 [place] ROUTINE 6 [facility] W/LEAST P 12 LDS I&R ONLY CHIROPRAC 03049 [facility] TIC 6 MANIPLTV TX EXTRASPIN AL 1/> REGION MANUAL 00380 [facility] THERAPY 6 TQS 1/> REGIONS EACH 15 MINUTES CHIROPRAC 44333 [facility] TIC 6 MANIPULAT SABIHA TX SPINAL 3-4 REGIONS THERAPEUT 81775 [facility] [place] IC PX 1/> 6 AREAS EACH 15 MIN EXERCISES THERAPEUT 48920 [facility] IC PX 1/> 6 AREAS EACH 15 MIN EXERCISES MANUAL 45107 [facility] THERAPY 6 TQS 1/> REGIONS EACH 15 MINUTES CHIROPRAC 68641 [facility] TIC 6 MATTI MATTI MANIPULAT SABIHA TX SPINAL 3-4 REGIONS MANUAL 87257 [facility] THERAPY 6 MATTI MATTI TQS 1/> REGIONS EACH 15 MINUTES CHIROPRAC 14092 [facility] [place] TIC 6 MATTI MATTI MANIPLTV TX EXTRASPIN AL 1/> REGION THERAPEUT 84692 [facility] IC PX 1/> 6 MATTI MATTI AREAS EACH 15 MIN EXERCISES COMPREHEN 15938 [facility] SIVE 6 DIAGNOSTI DIAGNOSTI METABOLIC CS CS PANEL BX SKIN 06-30-201 63244 SCALF LEI SCALF LEI SUBCUTANE 6 OUS&/MUCO US MEMBRANE 1 [place] [address] SCALF LEI SCALF LEI SURG 6 PATHOLOGY GROSS&BRYCE ROSCOPIC EXAM IMHISTOCH 34771 SCALF LEI SCALF LEI EM/CYTCHM 6 1ST ANTIBODY STAIN PROCEDURE ECG 21850 [place] ROUTINE 6 [facility] W/LEAST P 12 LDS I&R ONLY ECG 67796 [facility]UD[facility] MCKENNA ROUTINE 6 HEALTH HEN ECG MEDICAL W/LEAST GROUP 12 LDS I&R ONLY LOCM Q9967 BUDDHIST BUDDHIST 300-399 6 [facility] MG/ML [facility] IODINE CONCENTRA TION PER ML LIPID 13016 BUDDHIST BUDDHIST PANEL [address] [place] [address] [facility]ALTH [facility] BASIC 42971 BUDDHIST BUDDHIST METABOLIC 6 [facility] PANEL [facility] CALCIUM TOTAL INJECTION J3010 BUDDHIST BUDDHIST FENTANYL 6 [facility] CITRATE [facility] 0.1 MG BLOOD 78893 BUDDHIST BUDDHIST COUNT 6 [facility] [employer] COMPLETE [facility] AUTOMATED CATH PLMT 56245 BUDDHIST MCKENNA L HRT & 6 HEALTH ARTS MEDICAL W/NJX & GROUP ANGIO IMG S&I HEMOGLOBI 21134 BUDDHIST BUDDHIST N 6 [facility] GLYCOSYLA [facility] LANEY A1C INJECTION J1644 BUDDHIST BUDDHIST HEPARIN 6 [facility] SODIUM [facility] PER 1000 UNITS COLLECTIO 53985 BUDDHIST BUDDHIST N VENOUS 6 [facility] BLOOD [facility] VENIPUNCT URE GONADOTRO 56701 BUDDHIST BUDDHIST PIN 6 [facility] HEALTH CHORIONIC [facility] QUANTITAT SABIHA CV STRS 57293 [place] TST 6 [facility] XERS&/OR INC INC RX CONT ECG TRCG ONLY CV STRS 05494 [facility] FALLUJI TST 6 PHYSICIAN NACHO XERS&/OR S GROUP RX CONT ECG W/O I&R CV STRS 25837 [place] TST 6 [facility]/OR [facility] RX CONT P P ECG I&R ONLY MYOCARDIA 37867 [place] Ortega SPECT 6 [facility] MULTIPLE INC INC STUDIES TECHNETIU A9500 [place] Mont[place] TC-99M 6 [facility] SESTAMIBI INC INC DX PER STUDY DOSE ECHO 42688 [place] TTHRC R-T 6 [facility] 2D INC INC W/WOM-MOD E COMPL SPEC&COLR D ECG 74913 [place] CHAVEZ JR ROUTINE 6 [facility] W/LEAST P 12 LDS I&R ONLY RADIOLOGI 18645 [place] CERRAT[place] ALL C 6 MEDICAL EXAMINATI IMAGING ON CHEST ASS SINGLE VIEW FRONTAL OPHTH 12855 [facility] MEDICAL 6 XM&EVAL COMPRHNSV ESTAB PT 1/> BLOOD 91093 [facility] COUNT 6 [facility]I [facility] COMPLETE HOLDINGS HOLDINGS AUTO&AUTO DIFRNTL WBC COMPREHEN 66562 [facility] SIVE 6 [facility] METABOL[place] [address] LAB [facility] ZINC 6 [facility]I MA[facility]INGS HOLDINGS PREALBUMI 51976 [facility] MAHESH N 6 [place] [address] LAB [facility] LAB [facility]ESH THIAMINE- 6 MAI MAI VITAMIN [facility]INGS HOLDINGS B-1 ORGANIC 77153 [facility] LAB [facility] ACID 1 6 MAI MAI QUANTITAT [place] [address] LAB [facility] LAB MAHSEH PARATHORM 6 [place] [address] LAB [facility] LAB MAHESH PHOSPHORU 6 MAI MAI [place] [address] LAB [facility] LAB MAHESH FERRITIN 6 [place] [address] LAB [facility] LAB MAEHSH MAGNESIUM 6 MAI MAI HOLDINGS HOLDINGS 25 08332 LAB [facility] LAB [facility]ESH HYDROXY 6 MAI MAI INCLUDES HOLDINGS [place] [address] LAB [facility] LAB MAHESH FOLIC 6 MAI [place] [address] LAB MAHESH LAB MAHESH TOCOPHERO 6 [facility] [place] [address] LAB MA[facility] LAB MAHESH VITAMIN A [address] [place] [address] LAB MAHESH LAB MAHESH IRON 6 [facility] [address] [place] IRON 6 [place] [address] [place] [facility] THYROID 6 MEM HOS[facility] MEM HOSP STIMULATI INC INC NG HORMONE TSH COLLECTIO 16998 [place] N VENOUS 6 MEM HOS[facility] MEM HOSP BLOOD INC INC VENIPUNCT URE 25 13482 [place] HYDROXY 6 [facility]OS[facility] INCLUDES INC [place] [address] [place] VAUGHN FERRITIN 6 MEM HOSP TERA INC IRON 02350 [place] BINDING 6 [facility] H[facility]OS[facility] CAPACITY INC INC COMPREHEN 64417 [place] SIVE 6 [facility]OS[facility] METABOLIC INC INC PANEL BLOOD 51116 [place] COUNT 6 [facility]OS[facility] COMPLETE INC INC AUTO&AUTO DIFRNTL WBC IADNA 41294 P&C LABSDANIA CHLAMYDIA 6 LLC TRACHOMAT IS AMPLIFIED PROBE TQ IADNA 94176 P&C LABS NAJERA HUMAN 6 LLC PAPILLOMA VIRUS HIGH-RISK TYPES IADNA 82972 P&C LABSMINDYNAJERA NEISSERIA 6 LLC GONORRHOE AE AMPLIFIED PROBE TQ CYTP 12257 P&C LABSDANIA CERVICAL/ 6 LLC VAGINAL REQ INTERP PHYSICIAN CYTP C/V 66867 P&C LABSMINDYNAJERA AUTO THIN 6 LLC LYR PREPJ SCR MNL RESCR PHYS COLLECTIO 44373 [place] N VENOUS 6 [facility] [place] [address] [place] THYROID 6 [facility]OS[facility] STIMULATI INC INC NG HORMONE TSH BASIC 06339 [place] METABOLIC 6 [facility]OS[facility] PANEL INC INC CALCIUM TOTAL COMPREHEN 26298 [place] SIVE 6 [facility] INC PANEL COLLECTIO 52484 [facility] N VENOUS [facility] [place] [address] [facility] IRON [facility] [place] [address] [facility] FERRITIN 6 [facility] INC INC ORGANIC 93631 [facility] ACID 1 6 [facility] [place] [address] [facility] THIAMINE- 6 [facility] VITAMIN INC INC B-1 PREALBUMI 56759 [facility] N [facility] INC INC BLOOD 57229 [facility] COUNT 6 [facility] COMPLETE INC INC AUTO&AUTO DIFRNTL WBC PREALBUMI 73215 [facility] N 5 [facility] [place] [address] [facility] THIAMINE- 5 [facility] VITAMIN [facility] B-1 ORGANIC 17978 [facility] ACID 1 5 [facility] QUANTITAT [place] [address] [facility] FERRITIN 5 [place] [address] [facility] FOLIC 5 MA[facility] [place] [address] [facility] IRON 5 [facility] GENERAL 83316 LAB [facility] HEALTH 5 [facility] PANEL [facility] BX SKIN 83569 ATKINS ATKINS SUBCUTANE 5 TRA TRA OUS&/MUCO US MEMBRANE 1 LESION DESTRUCTI 32025 ATK[facility] ATKINS ON 5 TRA TRA PREMALIGN ANT LESION 1ST BIOPSY 53735 [facility] SKIN 5 TRA TRA SUBQ&/MUC OUS MEMBRANE EA ADDL LESN DESTRUCTI 58244 ATK[facility] ATKINS ON BENIGN 5 TRA TRA LESIONS UP [place] [address] [place] [address] SCALF LEI SCALF LEI SURG 5 PATHOLOGY GROSS&BRYCE ROSCOPIC EXAM PREALBUMI 89219 [facility] N 5 [facility] BLOOD 61414 [facility] COUNT 5 [facility] COMPLETE [facility] AUTO&[place] [address] [facility] IRON 5 [place] [address] [facility] FOLIC 5 [facility] ACID [facility] SERUM ORGANIC 98246 [facility] ACID 1 5 [facility] QUANTITAT [place] [address] LAB [facility] LAB [facility] THIAMINE- 5 [facility] VITAMIN [facility] B-1 COMPREHEN 01532 [facility] SIVE 5 [facility] METABOLIC [facility] PANEL SCREENING G0202 [facility] 5 [facility] MAMMOGRAP IMAGING HY WILBERT ASS INCL CAD WHEN PERFORMD COMPUTER- 71184 [facility] AIDED 5 [facility] DETECTION IMAGING ASS SCREENING MAMMOGRAP HY COMPREHEN 57618 [facility] SIVE 5 [facility] METABOLIC INC INC PANEL BLOOD 18372 [facility] COUNT 5 [facility] COMPLETE INC INC AUTO&AUTO DIFRNTL WBC LIPID 16437 [facility] PANEL 5 [facility] INC INC CYANOCOBA 07036 [facility] LYUBOV 5 [facility] VITAMIN INC INC B-12 25 42095 [facility] HYDROXY 5 [facility] INCLUDES [place] F[place] [address] [facility] GLUTAMYLT 5 [facility] [place] [address] [facility] THYROID 5 [facility] STIMULATI INC INC NG HORMONE TSH HEMOGLOBI 48892 [facility] N 5 [facility] GLYCOSYLA INC INC LANEY A1C COLLECTIO 26059 [facility] N VENOUS 5 [facility] BLOOD INC INC VENIPUNCT URE OPHTH 89176 SCIFRES SCIFRES MEDICAL 5 ANG ANG XM&EVAL COMPRHNSV ESTAB PT 1/> [place] [address] [facility] ABDOMEN & 5 N N PELVIS COMMUNTIY COMMUNTIY W/CONTRAS HOSPITA HOSPITA T MATERIAL CULTURE 72545 [facility] BACTERIAL 5 [facility] INC [place] [address] SEJAL CERRATO ALL ABDOMEN & 5 MEDICAL PELVIS IMAGING W/CONTRAS ASS T MATERIAL COMPREHEN 92483 [facility] SIVE 5 [facility] METABOLIC INC INC PANEL URNLS DIP 83713 [facility] STICK/TAB INC INC LET REAGENT AUTO MICROSCOP Y BLOOD 93253 [facility] COUNT 5 [facility] COMPLETE INC INC AUTO&AUTO DIFRNTL WBC URINE 67389 [facility] TEST INC [place] [address] [place] [facility] AMYLASE 5 [place] [address] [place] TALLEYON LIPASE 5 [place] [address] [facility] MAGNESIUM 5 N N [place] [address] [facility] LIPASE 5 N N COMMUNTI[place] [address] [facility] THIAMINE- 5 N N VITAMIN COMMUNTIY COMMUNTIY B-1 HOSPITA HOSPITA ORGANIC 65925 [facility] ACID 1 5 N N QUANTITAT COMMUNTIY COMMUNTI[place] [address] [facility] PHOSPHORU 5 N N S COMMUNTIY COMM[place]TI[place] [address] [facility] PARATHORM 5 N N ONE COMMUNTIY [place] [address] [facility] AMYLASE 5 N N [place] [address] [facility] FOLIC 5 N N ACID COMMUNTIY COMMUNTIY SERUM HOSPITA HOSPITA 25 63285 [facility] HYDROXY 5 N N INCLUDES COMMUNTIY COMMUNTIY FRACTIONS [place] [address] [facility] TOCOPHERO 5 N N L ALPHA COMMUNTIY COMMUNTI[place] [address] [facility] VITAMIN A 5 N N COMMUNTIY COMMUNTIY HOSPITA HOSPITA COLLECTIO 67059 [facility] N VENOUS 5 N N BLOOD COMMUNTIY COMMUNTIY VENIPUNCT HOSPITA HOSPITA URE PREALBUMI 66178 [facility] N 5 N N COMMUNTIY [place] [address] [facility] ZINC 5 N N COMMUNTIY COMMUNTIY HOSPITA HOSPITA COMPREHEN 48439 [facility] SIVE 5 N N METABOLIC COMMUNTIY COMMUNTIY PANEL HOSPITA HOSPITA BLOOD 24717 [facility] COUNT 5 N N COMPLETE COMMUNTIY COMMUNTIY AUTO&AUT[place] [address] [facility] [place] [facility] ABDOMINAL 5 RADIOLOGY RHO REAL TIME W/[place] [address] [place] RETROPERI 5 [facility] TONEAL INC INC REAL TIME W/[place] [address] SEJAL SMITH KADIE RETROPERI 5 MEDICAL TONEAL IMAGING REAL TIME ASS W/IMAGE LIMITED BLOOD 09680 [facility] COUNT 5 N N COMPLETE COMMUNTIY COMMUNTIY AUTOMATED HOSPITA HOSPITA HEPATITIS 32821 [facility] C 5 N N ANTIBODY COMMUNTIY COMMUNTIY HOSPITA HOSPITA COMPREHEN 77429 [facility] SIVE 5 N N METABOLIC COMMUNTIY COMMUNTIY PANEL HOSPITA HOSPITA IRON 91610 [facility] BINDING 5 N N CAPACITY COMMUNTIY [place] [address] [facility] GAMMAGLOB 5 N N ULIN IGA COMMUNTIY COMMUNTIY IGD IGG HOSPITA HOSPITA IGM EACH ALPHA-1-A 07222 [facility] NTITRYPSI 5 N N N TOTAL COMMUNTIY [place] [address] [facility] HEPATITIS 5 N N B COMMUNTIY COMMUNTIY SURFACE HOSPITA HOSPITA ANTIGEN COLLECTIO 14335 [facility] N VENOUS 5 N N BLOOD COMMUNTIY COMMUNTIY [place] [address] [facility] IRON 5 N N COMMUNTIY COMMUNTIY HOSPITA HOSPITA HEPATITIS 39287 [facility] B CORE 5 N N ANTIBODY COMMUNTIY COMMUNTIY HBCAB HOSPITA HOSPITA TOTAL PROTHROMB 91593 [facility] IN TIME 5 N N COMMUNTIY COMMUNTIY HOSPITA HOSPITA ANTINUCLE 60410 [facility] AR 5 N N ANTIBODIE COMMUNTIY COMMUNTIY S SANNA HOSPITA HOSPITA HEPATITIS 44958 [facility] B SURF 5 N N ANTIBODY COMMUNTIY COMMUNTIY HBSAB HOSPITA HOSPITA IMMUNOASS 08980 [facility] AY 5 N N ANALYTE COMMUNTIY COMMUNTIY QUAL/SEMI HOSPITA [place] [address] [facility] FERRITIN 5 N [place] [address] [facility] ABDOMEN & 5 MEDICAL PELVIS IMAGING W/O ASS CONTRAST MATERIAL DUP-SCAN 35683 [facility] XTR VEINS 5 N N COMPLETE COMMUNTIY COMMUNTIY HOSPITA HOSPITA BILATERAL STUDY COMPREHEN 95395 [facility] SIVE 5 N N METABOLIC COMMUNTIY COMMUNTIY PANEL HOSPITA HOSPITA BLOOD 49348 [facility] COUNT 5 N N COMPLETE COMMUNTIY COMMUNTIY AUTO&AUTO [place] [address] [facility] LIPASE 5 N N COMM[place] [address] [facility] AMYLASE 5 N N COMMUNTIY COMMUNTIY HOSPITA HOSPITA COLLECTIO 42454 [facility] N VENOUS 5 N N BLOOD COMMUNTIY COMMUNTIY [place] [address] [facility] [place] SCALF HUBER TRACT 5 RADIOLOGY UPPER W/WO DELAYED IMAGES W/KUB LAPS 41580 [facility] SANCHEZ MICHELLE GSTRC 5 RSTRICTIV BARIATRIC PX SURGICAL LONGITUDI NAL GASTRECTO MY ANES IPR 25848 [facility] BR[facility] ANT UPPER 5 ANESTHESI ABDOMEN A GROUP LAPS PS GASTRIC RSTCV MO LAPAROSCO 4382 [facility] PIC 5 N N VERTICAL COMMUNTIY COMMUNTIY SLEEVE HOSPITA HOSPITA GASTRECTO MY OTHER 4513 [facility] ENDOSCOPY 5 N N OF SMALL COMMUNTIY COMMUNTIY HOSPITA HOSPITA INTESTINE APPL 70434 [place] [facility] MODALITY 5 [facility] 1/> AREAS INC INC ELEC STIMJ UNATTENDE D APPLICATI 92579 [place] [facility] ON 5 [facility] MODALITY INC INC 1/> AREAS HOT/COLD PACKS APPL 55691 [place] [facility] MODALITY 5 [facility] 1/> AREAS INC INC ULTRASOUN D EA 15 MIN COMPREHEN 78428 [facility] SIVE 5 N N METABOLIC COMMUNTIY COMMUNTIY PANEL HOSPITA HOSPITA BLOOD 18373 [facility] COUNT 5 N N COMPLETE COMMUNTIY COMMUNTIY AUTOMATED HOSPITA HOSPITA DUP-SCAN 49922 [place] [facility] XTR VEINS 5 [facility] COMPLETE INC INC BILATERAL STUDY COLLECTIO 53482 [facility] N VENOUS 5 N N BLOOD COMMUNTIY COMMUNTIY VENIPUNCT HOSPITA HOSPITA URE GONADOTRO 48298 [facility] PIN 5 N N CHORIONIC COMMUNTIY COMMUNTIY HOSPITA HOSPITA QUALITATI VE THERAPEUT 73795 [place] [facility] IC PX 1/> 5 [facility] AREAS INC INC EACH 15 MIN EXERCISES APPL 38456 [place] [facility] MODALITY 5 [facility] 1/> AREAS INC INC ELEC STIMJ UNATTENDE D APPL 79377 [place] [facility] MODALITY 5 [facility] 1/> AREAS INC INC ULTRASOUN D EA 15 MIN APPLICATI 68438 [place] [facility] ON 5 [facility] MODALITY INC INC 1/> AREAS HOT/COLD PACKS CUL BACT 35295 [place] [facility] XCPT 5 [facility] URINE INC INC BLOOD/STO OL AEROBIC ISOL SUSCEPTIB 79936 [place] [facility] LTY STDY 5 [facility] ANTIMICRB INC INC IAL MICRO/AGA R DILUTJ THERAPEUT 66016 [facility] IC PX 1/> 5 [facility] AREAS INC INC EACH 15 MIN EXERCISES APPLICATI 08594 [place] [facility] ON 5 [facility] MODALITY INC INC 1/> AREAS HOT/COLD PACKS APPL 42408 [place] [facility] MODALITY 5 [facility] 1/> AREAS INC INC ULTRASOUN D EA 15 MIN APPL 98137 [place] [facility] MODALITY 5 [facility] 1/> AREAS INC INC ELEC STIMJ UNATTENDE D APPL 41271 [place] [facility] MODALITY 5 [facility] 1/> AREAS INC INC ELEC STIMJ UNATTENDE D APPL 80778 [place] [facility] MODALITY 5 [facility] 1/> AREAS INC INC ULTRASOUN D EA 15 MIN APPLICATI 60267 [place] [facility] ON 5 [facility] MODALITY INC INC 1/> AREAS HOT/COLD PACKS APPL 52312 [place] [facility] MODALITY 5 [facility] 1/> AREAS INC INC IONTOPHOR ESIS EA 15 MIN APPL 63612 [place] [facility] MODALITY 5 [facility] 1/> AREAS INC INC IONTOPHOR ESIS EA 15 MIN THERAPEUT 71010 [place] [facility] IC PX 1/> 5 [facility] AREAS INC INC EACH 15 MIN EXERCISES APPLICATI 40258 [place] [facility] ON 5 [facility] MODALITY INC INC 1/> AREAS HOT/COLD PACKS APPL 59473 [place] [facility] MODALITY 5 [facility] 1/> AREAS INC INC ULTRASOUN D EA 15 MIN APPL 76307 [place] [facility] MODALITY 5 [facility] 1/> AREAS INC INC ELEC STIMJ UNATTENDE D LIPID 58773 [facility] PANEL 5 N N COMMUNTIY COMMUNTIY HOSPITA HOSPITA RADIOLOGI 03377 [facility] RADIOLOGY SHA CHEST 2 VIEWS FRONTAL&L ATERAL COMPREHEN 27494 [facility] SIVE 5 N N METABOLIC COMMUNTIY COMMUNTIY PANEL HOSPITA HOSPITA CUL 04345 [facility] PRSMPTV 5 N N PTHGNC COMMUNTIY COMMUNTIY ORGANISM HOSPITA HOSPITA SCRN W/COLONY ESTIMJ BLOOD 54578 [facility] COUNT 5 N N COMPLETE COMMUNTIY COMMUNTIY AUTOMATED HOSPITA HOSPITA ECG 62811 [facility] ROUTINE 5 N N ECG COMMUNTIY COMMUNTIY W/LEAST HOSPITA HOSPITA 12 LDS TRCG ONLY W/O I&R THYROID 38304 [facility] HORM 5 N N UPTK/THYR COMMUNTIY COMMUNTIY OID HOSPITA H[place] [address] [facility] THYROXINE 5 N N TOTAL COMMUNTIY COMMUNTIY HOSPITA HOSPITA COLLECTIO 89701 [facility] N VENOUS 5 N N BLOOD COMMUNTIY COMMUNTIY [place]IP[place] [address] [facility] THYROID 5 N N STIMULATI COMMUNTIY COMMUNTIY NG HOSPITA HOSPITA HORMONE TSH PHYSICAL 88013 [place] [facility] THERAPY 5 [facility] EVALUATIO INC INC N FIBRIN 98500 [place] [facility] DGRADJ 5 [facility] PRODUCTS INC INC D-DIMER QUAL/SEMI GILBERT COLLECTIO 99834 [place] [facility] N VENOUS 5 [facility] [place] [address] [place] [facility] TROPONIN 5 [facility] HOSP QUANTITAT INC INC SABIHA URNLS DIP 32948 [place] [facility] 5 [facility]P STICK/TAB INC INC LET REAGENT AUTO MICROSCOP Y ECG 75302 [place] [facility] ROUTINE 5 [facility] ECG INC INC W/LEAST 12 LDS TRCG ONLY W/O I&R BLOOD 05713 [place] [facility] COUNT 5 [facility]P COMPLETE INC INC AUTO&AUTO DIFRNTL WBC RADIOLOGI 90405 [facility] C EXAM 5 MEDICAL ADRIANNA CHEST 2 IMAGING VIEWS ASS FRONTAL&L ATERAL COMPREHEN 69975 [place] [facility] SIVE 5 [facility]OSP METABOLIC INC INC PANEL ECG 03416 [place] CHAVEZ JR ROUTINE 5 [facility] W/LEAST P 12 LDS I&R ONLY ECG 00557 [place] MATUTE ROUTINE 5 [facility] W/LEAST P 12 LDS I&R ONLY LOCM Q9967 [place] [facility] 300-399 5 [facility]OS[facility] MG/ML INC INC IODINE CONCENTRA TION PER ML RADIOLOGI 40662 [facility] C EXAM 5 MEDICAL ADRIANNA CHEST 2 IMAGING VIEWS ASS FRONTAL&L ATERAL COMPREHEN 16384 [place] [facility] SIVE 5 [facility] HOSP METABOLIC INC INC PANEL BLOOD 64244 [place] [facility] COUNT 5 [facility]P COMPLETE INC INC AUTO&[place] [address] [facility] ANGIOGRAP 5 MEDICAL ADRIANNA HY CHEST IMAGING W/CONTRAS ASS T/NONCONT RAST ECG 12122 [place] [facility] ROUTINE 5 [facility]OS[facility] ECG INC INC W/LEAST 12 LDS TRCG ONLY W/O I&[place] [address] [place] [facility] TROPONIN 5 [facility] HOSP QUANTITAT INC INC SABIHA FIBRIN 02946 [place] DGRADJ 5 [facility] HOSP PRODUCTS INC INC D-DIMER QUAL/SEMI GILBERT RADEX 00425 [facility] SHOULDER 4 MEDICAL COMPLETE IMAGING MINIMUM 2 ASS VIEWS DESTRUCTI 50150 ATKINS ATKINS ON BENIGN 4 TRA TRA LESIONS UP TO 14 REPAIR 70957 ATKINS ATKINS COMPLEX 4 TRA TRA SCALP/ARM /LEG 1.1-2.5 CM LEVEL III 23512 SCALF LEI SCALF LEI SURG 4 PATHOLOGY GROSS&[place] [address] [facility] HAR[facility]EN HEAD/BRAI 4 MEDICAL ADRIANNA N W/O IMAGING CONTRAST ASS MATERIAL THERAPEUT 03324 [place] [facility] IC 4 [facility] INJECTION INC INC IV PUSH EACH NEW DRUG EGD 02090 [facility] SANCHEZ MICHELLE TRANSORAL 4 BIOPSY BARIATRIC SINGLE/[place] [address] [facility], PICKLESIM SURG 4 [facility] PATHOLOGY GROSS&BRYCE ROSCOPIC EXAM SPECIAL 33747 [facility], PICKLESIM STAIN 4 [facility] GROUP 1 MICROORGA NISMS I&R SPCL STN 65107 [facility], PICKLESIM 2 I&R 4 [facility] EXCPT MICROORG/ ENZYME/IM CYT ANES 74868 [facility] BENSON UPPER GI 4 ANESTHESI JOSE ANGEL ENDOSCOPY A GROUP PROXIMAL PS TO DUODENUM SPMTRY 71838 [place] [facility] W/VC [address] 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 EXAMINATI INC INC ON CHEST SINGLE VIEW FRONTAL BLOOD 40696 [place] [facility] COUNT 4 [facility] COMPLETE INC INC AUTO&AUTO DIFRNTL WBC ECG 64407 SCOTT CHAVEZ JR ROUTINE 4 DWI DWI ECG W/LEAST 12 LDS I&R ONLY BASIC 50282 [place] [facility] METABOLIC [address] [facility] PANEL INC INC CALCIUM TOTAL ECG 06117 [place] [facility] ROUTINE [address] [facility] ECG INC INC W/LEAST 12 LDS TRCG ONLY W/O I&[place] [address] [place] [facility] TROPONIN [address] [facility] [place] [address] [place] [facility] TROPONIN [address] [facility] QUANTITAT INC INC SABIHA ECG 86643 [place] ROUTINE [address] [facility] ECG INC INC W/LEAST 12 LDS TRCG ONLY W/O I&R FIBRIN 74296 [place] [facility] DGRADJ [address] [facility] PRODUCTS INC INC D-DIMER QUAL/SEMI GILBERT CREATINE 21814 [place] [facility] KINASE MB 4 [facility] FRACTION INC INC ONLY CREATINE 53849 [place] [facility] KINASE 4 [facility] TOTAL INC INC ECG 04424 GIOVANI MATUTE ROUTINE 4 [facility] DOMINIQUE ECG W/LEAST 12 LDS I&R ONLY COMPREHEN 97765 [place] [facility] SIVE 4 [facility] METABOLIC INC INC PANEL BLOOD 87905 [place] [facility] COUNT 4 [facility] COMPLETE INC INC AUTO&AUTO DIFRNTL WBC RADIOLOGI 71797 [place] EXAM 4 [facility] CHEST 2 INC INC VIEWS FRONTAL&L ATERAL HEMOGLOBI 84346 COMBINED COMBINED N 4 PHYSICIAN PHYSICIAN GLYCOSYLA S LA S LA LANEY A1C CYANOCOBA 91682 COMBINED COMBINED LYUBOV 4 PHYSICIAN PHYSICIAN VITAMIN S LA S LA B-12 25 12555 COMBINED COMBINED HYDROXY 4 PHYSICIAN PHYSICIAN INCLUDES S [place] [address] COMBINED COMBINED FREE 4 PHYSICIAN PHYSICIAN THYROXINE S LA S LA SEDIMENTA 20806 COMBINED COMBINED TION RATE 4 PHYSICIAN PHYSICIAN RBC S LA S LA NON-AUTOM ATED GENERAL 07671 COMBINED COMBINED HEALTH 4 PHYSICIAN PHYSICIAN PANEL S LA S LA LIPID 83116 COMBINED COMBINED PANEL 4 PHYSICIAN PHYSICIAN S LA S LA SCREENING G0202 [place] [facility] 4 [facility] MAMMOGRAP INC INC HY WILBERT INCL CAD WHEN PERFORMD COMPUTER- 84877 [place] [facility] AIDED 4 [facility] DETECTION INC INC SCREENING MAMMOGRAP HY LIPID 26663 [facility] PANEL 4 DIAGNOSTI DIAGNOSTI CS CS IIV3 13200 [facility]/CO [place] VACCINE 9 [facility] VIRUS 0.5 BANK ACCT ML DOSAGE IM USE RADEX 77459 KIMBERLEE PASCUAL, SPINE 9 [facility] S LUMBSCR CORPORATI COMPL ON W/BENDING VIEWS MIN 6 RADIOLOGI 62888 Cliff CRAIG EXAMINATI IMAGING ON PELVIS ASSOCIATE 1/2 S VIEWS RADEX HIP 28768 [place] [facility] 9 [facility] UNILATERA INC INC L COMPLETE MINIMUM 2 VIEWS RADEX 02522 TON CRAIG 9 JERRICA Chino LUMBOSACR IMAGING AL ASSOCIATE MINIMUM 4 S VIEWS Encounters Encounter Start End Date Code Location Performer Type Date OFFICE 91153 [place] [facility]AND 7 7 [facility] T VISIT INC 10 MINUTES [facility] [place] [facility] OUTPATIEN INC T [facility] [place] [facility] OUTPATIEN INC T OFFICE 09926 [facility] 7 7 [facility] T VISIT INTERNAL 15 MED MINUTES [facility] [place] [facility] OUTPATIEN INC T EMERGENCY 05608 [facility] SUGGS 7 7 PHYSICIAN DEPARTMEN S, PLLC T VISIT HIGH/URGE NT SEVERITY EMERGENCY 16385 [place] 7 7 [facility] DEPARTMEN INC T VISIT MODERATE SEVERITY OFFICE 95234 [facility] T VISIT S GROUP 15 MINUTES [facility] [place] [facility] OUTPATIEN INC T [facility] [place] [facility] [address] [facility] OUTPATIEN INC T OFFICE 54422 [facility] 7 7 HEALTH T VISIT MEDICAL 25 GROUP MINUTES EMERGENCY 14271 [place] 7 7 [facility] DEPARTMEN INC T VISIT LOW/MODER SEVERITY EMERGENCY 48180 [facility] PASCUAL 7 7 PHYSICIAN DEPARTMEN S, PLLC T VISIT MODERATE SEVERITY EMERGENCY 39508 [facility] PASCUAL 7 7 PHYSICIAN DEPARTMEN S, PLLC T VISIT MODERATE SEVERITY [facility] 7 7 [facility] OUTPATIEN [facility] OFFICE 59318 [place] CHAND 7 7 [facility] T VISIT 5 INC MINUTES [facility] [place] [facility] OUTPATIEN INC T [facility] [place] [facility] 7 [facility] OUTPATIEN INC T EMERGENCY 61746 [place] 7 7 [facility] DEPARTMEN INC T VISIT LOW/MODER SEVERITY EMERGENCY 10085 [facility] PASCUAL DEPT 7 7 PHYSICIAN VISIT S, PLLC HIGH SEVERITY& THREAT FUNCJ OFFICE 21641 [facility] ISSA OUTPATIEN 7 7 PHYSICIAN T VISIT S GROUP 10 MINUTES OFFICE 32478 [facility]HAL OUTPATIEN 7 7 PARTNERS T VISIT OF [place] 25 CO MINUTES [facility] [place] [facility] 7 [facility] OUTPATIEN INC T OFFICE 41846 [facility] 7 7 VALLEY T VISIT INTERNAL 15 MED MINUTES EMERGENCY 25041 [place] 7 7 [facility] DEPARTMEN INC T VISIT HIGH/URGE NT SEVERITY [facility] [place] [facility] 7 7 [facility]PAT[facility]EN [facility] T EMERGENCY 39860 [facility] DEPT 7 7 PHYSICIAN VISIT S, PLLC HIGH SEVERITY& THREAT FUNCJ OFFICE 73849 [place] OUTPATIEN 7 7 [facility] T VISIT 5 INC MINUTES [facility] [place] [facility] 7 7 [facility] OUTPATIEN CRITICAL ACCESS HOSPITAL [facility] [place] [facility] 7 7 [facility] T EMERGENCY 88261 [facility] 7 PHYSICIAN VISIT S, PLLC HIGH SEVERITY& THREAT FUNCJ EMERGENCY 71464 [place] 7 7 [facility] DEPARTMEN INC T VISIT MODERATE SEVERITY [facility] - 7 7 HEALTH OUTPATIEN CASTALIA T OFFICE 90706 [facility] OUTPATIEN 7 7 [facility] T VISIT INTERNAL 15 MED MINUTES [facility]OSPITAL [facility] - 7 7 HEALTH OUTPATIEN [place]ST[place] T OFFICE 79366 [place] CELI OUTPATIEN 7 7 [facility] T VISIT HOSPITAL 10 P MINUTES OFFICE 81040 [facility]UD[facility] FUNES OUTPATIEN 7 7 HEALTH T VISIT MEDICAL 25 GROUP MINUTES OFFICE 93056 [place] OUTPATIEN 7 7 [facility] T VISIT INC 10 MINUTES [facility] [place] [facility] 7 [facility] OUTPATIEN INC T OFFICE 74892 [facility] [facility] OUTPATIEN 7 7 [facility] T VISIT INTERNAL 15 MED MINUTES [facility] [place] [facility] 7 [facility] OUTPATIEN INC T OFFICE 83364 [place] OUTPATIEN [address] [facility] T VISIT 5 INC MINUTES OFFICE 81755 [place] WEISS JR OUTPATIEN 7 7 [facility] T VISIT HOSPITAL 10 P MINUTES EMERGENCY 17041 [place] 7 7 [facility] DEPARTMEN INC T VISIT LOW/MODER SEVERITY EMERGENCY 07783 [facility] PASCUAL DEPT 7 7 PHYSICIAN VISIT [facility] HIGH SEVERITY& THREAT [facility] [place] [facility] OUTPATIEN INC T OFFICE 79770 [place] ALATORRE OUTPATIEN 7 7 [facility] T VISIT [facility] 10 P MINUTES [facility] [place] [facility] 7 [facility] OUTPATIEN INC [facility] [place] [facility] OUTPATIEN INC T EMERGENCY 27596 [place] 7 7 [facility] DEPARTMEN INC T VISIT HIGH/URGE NT SEVERITY [facility] [place] [facility] 7 7 [facility] OUTPATIEN INC T PERIODIC 58641 [facility] KAM PREVENTIV 7 7 PHYSICIAN E MED EST S GROUP PATIENT [id number] OFFICE 14701 [place] GIOVANI OUTPATIEN 7 7 SP[facility] T VISIT INTERNAL 15 MED MINUTES [facility] [place] [facility] 7 7 [facility] OUTPATIEN INC T OFFICE 98260 [facility] MAEGAN OUTPATIEN 7 7 PHYSICIAN T VISIT S GROUP 15 MINUTES EMERGENCY 06214 S[facility] JAQUEZ 7 7 PHYSICIAN DEPARTMEN S, [facility] T VISIT HIGH/URGE NT SEVERITY [facility] [place] [facility] T OFFICE 03870 [place] [facility] 7 7 [facility] 10 P MINUTES [facility] [place] [facility] T OFFICE 65543 YVETTENELLIE JURADO OUTPATIEN 7 7 MD RHIANNON, T VISIT PSC 10 MINUTES [facility] [place] [facility] T OFFICE 15578 [facility] KIMBERLY OUTPATIEN 7 7 PHYSICIAN T VISIT S GROUP 25 MINUTES [facility] [place] [facility] T [facility] [place] [facility] T OFFICE 75490 [place] [facility] 7 7 [facility] T VISIT 5 INC MINUTES OFFICE 90208 [facility] ISSA OUTPATIEN 7 7 PHYSICIAN T VISIT S GROUP 10 MINUTES OFFICE 10342 YVETTE MAXIMOPERCY OUTPATIEN 7 7 MD RHIANNON, T NEW 30 PSC MINUTES EMERGENCY 63520 [place] 7 7 [facility] DEPARTMEN INC T VISIT HIGH/URGE NT SEVERITY [facility] [place] [facility] T [facility] [place] [facility] INC T OFFICE 65656 [facility] KIMBERLY OUTPATIEN 7 7 PHYSICIAN T VISIT S GROUP 25 MINUTES OFFICE 57470 [place] OUTPATIEN 7 7 [place] T VISIT INTERNAL 15 MED MINUTES OFFICE 78925 [facility] KIMBERLY OUTPATIEN 7 7 PHYSICIAN T VISIT S GROUP 25 MINUTES [facility] [place] [facility] OUTPATIEN INC T OFFICE 47536 [facility] ADAMS OUTPATIEN 7 7 [place] T VISIT ORTHOPAED 15 IC MINUTES EMERGENCY 22135 [place] 7 7 [facility] DEPARTMEN INC T VISIT HIGH/URGE NT SEVERITY [facility] [place] [facility] OUTPATIEN INC T EMERGENCY 56628 [facility] ARMIJO DEPT 7 7 PHYSICIAN VISIT S, [facility] HIGH SEVERITY& THREAT FUNCJ OFFICE 90477 [place] GIOVANI OUTPATIEN 7 7 [place] T VISIT INTERNAL 25 MED MINUTES OFFICE 11735 [place] [facility] 7 7 [facility] T VISIT 5 INC [facility] [place] [facility] OUTPATIEN INC T OFFICE 13292 ANGELITO WHEELER OUTPATIEN 7 7 [place] T NEW 30 ORTHOPAED MINUTES IC EMERGENCY 78641 [place] 7 7 [facility] DEPARTMEN INC T VISIT LOW/MODER SEVERITY EMERGENCY 13822 SMILEY JIMENEZ DEPT 7 7 PHYSICIAN U VISIT S, [facility] HIGH SEVERITY& THREAT [facility] [place] [facility] T [facility] [place] [facility] T [facility] [place] [facility] T EMERGENCY 13666 [place] 7 7 [facility] DEPARTMEN INC T VISIT MODERATE SEVERITY EMERGENCY 64680 SMI[facility] PASCUAL 7 7 PHYSICIAN DEPARTMEN S, [facility] T VISIT HIGH/URGE NT SEVERITY EMERGENCY 49329 [place] 7 7 [facility] DEPARTMEN INC T VISIT LOW/MODER SEVERITY [facility] [place] [facility] OUTPATIEN INC T OFFICE 92015 [place] [facility] 7 7 [facility] T VISIT 5 INC MINUTES [facility] [place] [facility] OUTPATIEN INC T OFFICE 04580 [place] OUT[facility] 7 7 [facility] T VISIT INTERNAL 15 MED MINUTES [facility] [place] - 7 7 [facility] T EMERGENCY 44550 [facility] 7 7 [facility] EMERGENCY T VISIT PHYS MODERATE SEVERITY EMERGENCY 58963 [place] 7 7 [facility] T VISIT LOW/MODER SEVERITY OFFICE 58889 [place] [facility] 7 7 [facility] T VISIT 5 INC MINUTES [facility] [place] [facility] 7 [facility] OUTPATIEN INC T OFFICE 23199 [place] OUT[facility] 7 7 [facility] T VISIT INTERNAL 15 MED MINUTES [facility] [place] [facility] T OFFICE 50826 [place] [facility] 7 7 [facility] T VISIT 5 INC MINUTES EMERGENCY 88703 S[facility] MEDEROS 7 7 PHYSICIAN [facility] S, [facility] T VISIT MODERATE SEVERITY [facility] [place] [facility] 7 [facility] OUTPATIEN INC T OFFICE 95812 [place] [facility] 7 7 [facility] T VISIT 5 INC MINUTES OFFICE 52815 [place] OUT[facility] 7 7 [facility] T VISIT INTERNAL 25 MED MINUTES OFFICE 80405 [place] [facility] 7 7 [facility] T NEW 10 INC MINUTES [facility] [place] - 7 7 [facility] T OFFICE 85997 LOUISA JASSO OUTPATIEN 7 7 T VISIT 25 MINUTES [facility] - 7 7 [facility]EN [facility] [place] [facility] T EMERGENCY 31749 [place] 7 7 [facility]MEN [facility] T VISIT LIMITED/M INOR PROB [facility] [place] [facility] [address] [facility] T EMERGENCY [address] [place] [address] [facility] DEPARTMEN INC T VISIT LOW/MODER SEVERITY [facility] [place] [facility] [address] [facility] EMERGENCY 75431 [place] [address] [facility] V[facility]/M INOR PROB EMERGENCY 41183 SMILEY PASCUAL 7 7 PHYSICIAN RADHA Reddy [facility] T VISIT MODERATE SEVERITY [facility] - 7 7 [facility] 7 7 [facility] EMERGENCY 87159 SMILEY SOTOMAYOR 6 6 PHYSICIAN [facility] VISIT HIGH/URGE NT SEVERITY [facility] [place] [facility] 6 6 [facility] T OFFICE 87900 [facility] 6 6 [facility] VISIT INTERNAL 15 MED MINUTES [facility] [place] [facility] 6 6 [facility] 20511 SMILEY JAQUEZ 6 6 PHYSICIAN RADHA [facility] VISIT HIGH/URGE NT SEVERITY EMERGENCY 05719 [place] 6 6 [facility]ISIT MODERATE SEVERITY EMERGENCY 13946 SMILEY ARMIJO 6 6 [facility] T VISIT MODERATE SEVERITY EMERGENCY 65971 [place] 6 6 [facility] VISIT LOW/MODER SEVERITY EMERGENCY 80564 SMILEY PASCUAL 6 6 PHYSICIAN BRYCE RADHA [facility] T VISIT MODERATE SEVERITY [facility] [place] [facility] 6 6 [facility] T OFFICE 56163 SCIFRES SCIFRES OUTPATIEN 6 6 ANG ANG T VISIT 10 MINUTES OFFICE 28848 [place] ARSLAN OUTPATIEN 6 6 SPADE OFELIA T VISIT INTERNAL 15 MED MINUTES OFFICE 19108 WENDY SANCHEZ MICHELLE OUTPATIEN 6 6 T VISIT BARIATRIC 25 SURGICAL MINUTES EMERGENCY 40971 SMILEY SOTOMAYOR 6 6 PHYSICIAN JR [facility] S, [facility] T VISIT HIGH/URGE NT SEVERITY [facility] [place] [facility] 6 6 [facility] T EMERGENCY 35327 [place] 6 6 [facility] DEPARTMEN INC T VISIT LOW/MODER SEVERITY EMERGENCY 46209 SMILEY PASCUAL 6 6 PHYSICIAN BRYCE [facility], [facility] T VISIT MODERATE SEVERITY OFFICE 66114 [facility] FALLUJI OUTPATIEN 6 6 [facility] T VISIT MEDICAL 15 G MINUTES [facility] [place] [facility] 6 6 [facility] T OFFICE 92989 [facility] HUMPHREY OUTPATIEN 6 6 PHYSICIAN MEAGAN T VISIT S GROUP 15 MINUTES [facility] [place] - 6 6 [facility] T OFFICE 02782 [facility] ISSA OUTPATIEN 6 6 PHYSICIAN JARON T VISIT S GROUP 10 MINUTES [facility] [place] [facility] 6 6 [facility] T EMERGENCY 58297 [place] 6 6 [facility] DEPART[facility] INC T VISIT MODERATE SEVERITY [facility] [place] - 6 6 [facility] T OFFICE 91735 [facility] ISSA OUTPATIEN 6 6 PHYSICIAN JARON T VISIT S GROUP 10 MINUTES OFFICE 22050 [place] ALATORRE OUTPATIEN 6 6 [facility] T VISIT HOSPITAL 10 P MINUTES OFFICE 71522 BUDDHIST MCKENNA OUTPATIEN 6 6 HEALTH IV HEN T VISIT MEDICAL 15 GROUP MINUTES OFFICE 35584 PERLA RODRIGUEZ TRI OUTPATIEN 6 6 GROUND T VISIT FAMILY 25 CLINI MINUTES OFFICE 82717 [facility] T VISIT 5 HLTH DEPT HL DEPT MINUTES JAZZ BANNER EMERGENCY 75155 SMILEY ARMIJO 6 6 PHYSICIAN CASANDRA Reddy PLLC T VISIT HIGH/URGE NT SEVERITY [facility] [place] [facility] 6 6 [facility] T EMERGENCY 58166 [place] 6 6 [facility] DEPART[facility] INC T VISIT LOW/MODER SEVERITY OFFICE 35511 [facility] 6 6 [facility] T VISIT [facility] DEPT [facility] DEPT 15 JAZZ JAZZ MINUTES [facility] [place] - 6 6 [facility] T OFFICE 12761 [facility] KIMBERLY OUTPATIEN 6 6 PHYSICIAN JULIUS T VISIT S GROUP 25 MINUTES OFFICE 00512 WENDY SANCHEZ OUTPATIEN 6 6 T VISIT BARIATRIC 25 SURGICAL MINUTES EMERGENCY 05454 SMILEY PASCUAL 6 6 PHYSICIAN BRYCE Reddy PLLC T VISIT MODERATE SEVERITY OFFICE 71465 [facility] KIMBERLY OUTPATIEN 6 6 PHYSICIAN MAT Berenice NEW 45 S GROUP MINUTES [facility] [place] - 6 6 [facility] T OFFICE 26095 ALLERGY ROSENTHAL MAR OUTPATIEN 6 6 PARTNERS T VISIT OF [place] 40 CO MINUTES EMERGENCY 41563 SMILEY JIMENEZ 6 6 PHYSICIAN Taylor GARCIA S PLLC T VISIT HIGH/URGE NT SEVERITY EMERGENCY 54498 SMILEY PASCUAL 6 6 PHYSICIAN BRYCE GARCIA S PLLC T VISIT MODERATE SEVERITY EMERGENCY 38013 [place] 6 6 [facility] DEPART[facility] INC T VISIT LOW/MODER SEVERITY [facility] [place] - 6 6 [facility] T OFFICE 82459 [facility] OUTPAT[facility] 6 6 N T VISIT NEUROLOGY 10 MINUTES [facility] [place] [facility] 6 6 [facility] T EMERGENCY 26030 SMILEY SOTOMAYOR, 6 6 PHYSICIAN JR MANUELITO GARCIA S, [facility] VISIT MODERATE SEVERITY [facility] [place] [facility] [address] [facility] OUTPATIEN INC T EMERGENCY 38338 SMILEY PASCUAL DEPT 6 6 PHYSICIAN BRYCE VISIT S, PLLC HIGH SEVERITY& THREAT FUNCJ OFFICE 77925 [place] ROQUEIMONE OUTPATIEN 6 6 [facility] VISIT HOSPITAL 10 P MINUTES EMERGENCY 80741 [place] 6 6 [facility] DEPARTMEN INC T VISIT MODERATE SEVERITY [facility] [place] [facility] [address] [facility] OUTPATIEN INC T EMERGENCY 52796 SMILEY SOTOMAYOR 6 6 PHYSICIAN JR MANUELITO GARCIA S, [facility] T VISIT HIGH/URGE NT SEVERITY OFFICE 52772 [place] WEISS JR OUTPATI 6 6 [facility] T VISIT HOSPITAL 10 P MINUTES EMERGENCY 69284 SMILEY PASCUAL DEPT 6 6 PHYSICIAN BRYCE VISIT S, PLLC HIGH SEVERITY& THREAT FUNCJ OFFICE 85651 ALLERGY ROSENTHAL MAR CONSULTAT 6 6 PARTNERS [facility] [place] NEW/ESTAB CO PATIENT 60 MIN EMERGENCY 47938 SMILEY PASCUAL 6 6 PHYSICIAN BRYCE DEPARTMEN S, PLLC T VISIT MODERATE SEVERITY EMERGENCY 56565 SMILEY PASCUAL DEPT 6 6 PHYSICIAN BRYCE VISIT S, PLLC HIGH SEVERITY& THREAT FUNCJ OFFICE 19811 [facility] OUTPATIEN 6 6 PHYSICIAN T VISIT S GROUP 25 MINUTES [facility] [place] [facility] 6 6 [facility] T EMERGENCY 44155 SMILEY SUGGS [place] 6 6 PHYSICIAN DEPARTMEN S, PLLC T VISIT LOW/MODER SEVERITY [facility] [place] [facility] 6 6 [facility] T EMERGENCY 39585 [place] 6 6 [facility] DEPARTMEN INC T VISIT LOW/MODER SEVERITY EMERGENCY 83500 SMILEY PASCUAL 6 6 PHYSICIAN BRYCE DEPARTMEN S, PLLC T VISIT MODERATE SEVERITY HOSPITAL [facility] - 6 6 N OUTPATIEN COMMUNTIY T HOSPITA OFFICE 68355 [facility] ISSA OUTPATIEN 6 6 PHYSICIAN JARON T NEW 20 S GROUP MINUTES EMERGENCY 65833 SMILEY ARMIJO DEPT 6 6 PHYSICIAN CASANDRA VISIT S, PLLC HIGH SEVERITY& THREAT FUNCJ EMERGENCY 98012 SMILEY PASCUAL 6 6 PHYSICIAN BRYCE DEPARTMEN S, PLLC T VISIT HIGH/URGE NT SEVERITY HOSPITAL [facility] - 6 6 N OUTPATIEN COMMUNTIY T HOSPITA EMERGENCY 87251 SMILEY PASCUAL DEPT 6 6 PHYSICIAN BRYCE VISIT S, PLLC HIGH SEVERITY& THREAT FUNCJ OFFICE 64818 [facility] 6 6 T VISIT BARIATRIC 25 SURGICAL MINUTES [facility]OSPITAL [facility] - 6 6 HEALTH OUTPATIEN [place] T EMERGENCY 18245 ANGELITO DUMONT 6 6 EMERGENCY HOW DEPARTMEN PHYS PSC T VISIT MODERATE SEVERITY EMERGENCY 29025 [place] 6 6 [facility] DE[facility] INC T VISIT LOW/MODER SEVERITY [facility] [place] [facility] 6 6 [facility] OUTPAT[facility] INC T EMERGENCY 95037 SMILEY BAGLEY DEPT 6 6 PHYSICIAN FOR VISIT S, PLLC HIGH SEVERITY& THREAT [facility] [place] - 6 6 [facility] OUT[facility] INC T EMERGENCY 69564 SMILEY PASCUAL 6 6 PHYSICIAN BRYCE DEPARTMEN S, [facility] T VISIT HIGH/URGE NT SEVERITY EMERGENCY 45507 SMILEY SUGGS [place] 6 6 PHYSICIAN DEPARTMEN S, [facility] T VISIT HIGH/URGE NT SEVERITY EMERGENCY 97876 [facility] 6 6 ROSALEE JOSE ANGEL DEPARTMEN EMERGENCY T VISIT PHYS HIGH/URGE NT SEVERITY HOSPITAL [facility] 6 6 N OUTPATIEN COMMUNTIY T [facility] EMERGENCY 73791 SMILEY PASCUAL DEPT 6 6 PHYSICIAN BRYCE VISIT S, [facility] HIGH SEVERITY& THREAT [facility] [place] [facility] 6 6 [facility] T OFFICE 65708 [facility] CONSULT 6 6 N ION NEUROLOGY NEW/ESTAB PATIENT 60 MIN OFFICE 77141 [facility] OUTPATIEN 6 6 MATTI MATTI T NEW 30 MINUTES OFFICE 25145 SCALF LEI SCALF LEI OUTPATIEN 6 6 T VISIT 25 MINUTES EMERGENCY 88497 SMILEY PASCUAL DEPT 6 6 PHYSICIAN BRYCE VISIT S, [facility] HIGH SEVERITY& THREAT FUNJ OFFICE 19406 [place] ARSLAN OUTPATIEN 6 6 [facility] T VISIT INTERNAL 15 MED MINUTES HOSPITAL [facility] - 6 6 HEALTH OUTPATIEN [facility] [place] - 6 6 [facility] INC T EMERGENCY 86898 SMILEY SANCHEZEY DEPT 6 6 PHYSICIAN BRYCE VISIT S, PLLC HIGH SEVERITY& THREAT FUNJ OFFICE 59589 BUDDHIST BOLIEK OUTPATIEN 6 6 HEALTH KADIE T VISIT MEDICAL 15 GROUP MINUTES OFFICE 30796 WENDY SANCHEZ MICHELLE OUTPATIEN 6 6 T VISIT BARIATRIC 25 SURGICAL MINUTES [facility] [place] - 6 6 [facility] T OFFICE 77759 [place] ARSLAN OUTPATIEN 6 6 [facility] OF[facility] T VISIT INTERNAL 15 MED MINUTES INITIAL 91004 [facility] PREVENTIV 6 6 PHYSICIAN E S GROUP MEDICINE NEW PATIENT 40-64YRS [facility] [place] - 6 6 [facility] T OFFICE 16715 BUDDHIST BOLIEK OUTPATIEN 6 6 PRIMARY KADIE T VISIT CARE OF 15 ABISAI MINUTES OFFICE 97714 [place] A[facility] OUTPATIEN 6 6 [facility] OF[facility] T VISIT INTERNAL 15 MED MINUTES [facility] [place] - 6 6 [facility] INC T OFFICE 81597 WENDY SANCHEZ MICHELLE OUTPATIEN 5 5 T VISIT BARIATRIC 25 SURGICAL MINUTES OFFICE 82406 ATKINS ATKINS OUTPATIEN 5 5 TRA TRA T VISIT 25 MINUTES PERIODIC 66000 [facility] EST HLTH DEPT HLTH DEPT PATIENT JAZZ JAZZ 40-64YRS OFFICE 11120 WENDY SANCHEZ MICHELLE OUTPATIEN 5 5 T VISIT BARIATRIC 15 SURGICAL MINUTES [facility] [place] - 5 5 [facility] INC T OFFICE 88590 [place] ARSLAN OUTPATIEN 5 5 [facility] OFELIA T NEW 30 INTERNAL MINUTES MED [facility] [place] - 5 5 [facility] T OFFICE 57778 [facility] PETTEY OUTPATIEN 5 5 PHYSICIAN JAM T VISIT S GROUP 15 MINUTES OFFICE 81001 GASTROENT CASE JUS OUTPATIEN 5 5 EROLOGY T VISIT AND 15 HEPATOL MINUTES OFFICE 53155 DOMINICK [facility] OUTPATIEN 5 5 HEALTH KADIE T VISIT MEDICAL 10 GROUP MINUTES [facility] [place] - 5 5 N OUTPATIEN COMMUNTIY T [facility] [place] - 5 5 [facility] INC T EMERGENCY 32552 SMILEY HUTCHISON 5 5 PHYSICIAN KENNY GARCIA S [facility] T VISIT HIGH/URGE NT SEVERITY HOSPITAL [facility] - 5 5 N OUTPATIEN COMMUNTIY T [facility] OFFICE 99725 GASTROENT CASE JUS OUTPATIEN 5 5 EROLOGY T NEW 45 AND MINUTES [facility] [place] - 5 5 [facility] INC T [facility] [place] - 5 5 [facility] INC T EMERGENCY 07449 [place] 5 5 [facility] DEPARTMEN INC T VISIT LOW/MODER SEVERITY OFFICE 20978 DANIEL SANCHEZ OUTPATIEN 5 5 HUBER HUBER T VISIT 15 MINUTES [facility] [place] - 5 5 [facility] INC T EMERGENCY 67114 [place] 5 5 [facility] DEPARTMEN INC T VISIT MODERATE SEVERITY HOSPITAL [facility] - 5 5 N OUTPATIEN COMMUNTIY T [facility] [place] - 5 5 N OUTPATIEN COMMUNTIY T [facility] [place] [facility] 5 5 N INPATIENT COMMUNTIY [facility] [place] - 5 5 [facility] INC T OFFICE 65171 WENDY MARTINEZ OUTPATIEN 5 5 T VISIT BARIATRIC 40 SURGICAL MINUTES OFFICE 37993 DANIEL SANCHEZ OUTPATIEN 5 5 HUBER HUBER T VISIT 15 MINUTES EMERGENCY 89463 [place] 5 5 [facility] DEPARTMEN INC T VISIT LOW/MODER SEVERITY [facility] [place] - 5 5 [facility] T [facility] [place] - 5 5 [facility] - 5 5 N OUTPATIEN COMMUNTIY T [facility] [place] - 5 5 [facility] OUTPATIEN INC T OFFICE 63404 [place] ALATORRE OUTPATIEN 5 5 [facility] MINUTES P [facility] [place] - 5 5 [facility] T OFFICE 57858 MELANIE NOGUEIRA OUTPATIEN 5 5 MEDICAL JAM T VISIT SERV 15 FOUNDATIO MINUTES N OFFICE 70900 [place] WEISS JR OUTPATIEN [address] MINUTES P OFFICE 47604 [facility] OUTPATIEN 5 5 PHYSICIAN JAM T NEW 30 S GROUP MINUTES OFFICE 45622 [facility] FALLU CONSULTAT 5 5 [facility] NEW/ESTAB G PATIENT 60 MIN OFFICE 95375 DANIEL TOLEDOPATIEN 5 5 HUBER HUBER T VISIT 15 MINUTES EMERGENCY 51734 [place] 5 5 [facility] DEPARTMEN INC T VISIT HIGH/URGE NT SEVERITY EMERGENCY 70169 [place] ESCOTO 5 5 [facility] T VISIT P MODERATE SEVERITY [facility] [place] - 5 5 [facility] [place] - 5 5 [facility] T EMERGENCY [address] [place] [address] [facility] DEPARTMEN INC T VISIT HIGH/URGE NT SEVERITY OFFICE 67026 DANIEL TOLEDOPATIEN 5 5 HUBER HUBER T VISIT 15 MINUTES OFFICE 97899 DANIEL CHAND 4 4 HUBER HUBER T VISIT 15 MINUTES EMERGENCY 52836 [place] WINTERS 4 [address] [facility] T VISIT P LOW/MODER SEVERITY [facility] [place] Estes 4 4 [facility] OUTPATIEN INC T OFFICE 75016 DANIEL CHAND 4 4 HUBER HUBER T VISIT 15 MINUTES EMERGENCY 35581 [facility] DE[facility] 4 4 ROSALEE VISIT EMERGENCY HIGH PHYS SEVERITY& THREAT [facility] [place] Estes 4 4 [facility]EN [facility] 4 4 N OUTPATIEN [facility] HOSP[facility] OFFICE 04409 DANIEL CHAND 4 4 HUBER HUBER T VISIT 15 MINUTES OFFICE 11692 MONALISA CHAPIN CONSULTAT 4 4 KADIE ION CARDIOLOG NEW/ESTAB Y AT CENT PATIENT 40 MIN [facility] [place] Estes 4 4 [facility] INC T OFFICE 03556 MELANIE NOGUEIRA CONSULTAT 4 4 MEDICAL JAM ION SERV NEW/ESTAB FOUNDATIO PATIENT N 60 MIN [facility] [place] Estes 4 4 [facility] OUTPAT[facility] INC T OFFICE 46454 DANIEL CHAND 4 4 HUBER HUBER T VISIT 15 MINUTES OFFICE 91999 ATKINS ATKINS CONSULTAT 4 4 TRA TRA ION NEW/ESTAB PATIENT 40 MIN OFFICE 75034 [facility] FALLUJI OUTPATIEN 4 4 [facility] T VISIT MEDICAL 15 G MINUTES [facility] [place] - 4 4 [facility] INC T OFFICE 43414 [facility] FALLUJI OUTPATIEN 4 4 [facility] T NEW 30 MEDICAL MINUTES G EMERGENCY 89575 [facility] 4 4 ROSALEE MOH VISIT EMERGENCY HIGH PHYSI SEVERITY& THREAT FUN [facility] [place] - 4 4 [facility] OUT[facility] INC T EMERGENCY 75833 [place] 4 4 [facility] DEPARTMEN INC T VISIT MODERATE SEVERITY EMERGENCY 76947 HORTENCIA HUGHES DEPT 4 4 VISIT HIGH SEVERITY& THREAT FUNCJ OFFICE 15995 DANIEL DANIEL OUTPATIEN 4 4 HUBER HUBER T VISIT 15 MINUTES [facility] [place] - 4 4 [facility] INC T EMERGENCY 35984 ANKUR PASCUAL DEPT 4 4 BRYCE BRYCE VISIT HIGH SEVERITY& THREAT FUN EMERGENCY 06842 [place] 4 4 [facility] DEPARTMEN INC T VISIT HIGH/URGE NT SEVERITY OFFICE 20847 SANCHEZ MICHELLE SANCHEZ MICHELLE CONSULTAT 4 4 ION NEW/ESTAB PATIENT 80 MIN OFFICE 14187 DANIEL SANCHEZ OUTPATIEN 4 4 HUBER HUBER T NEW 30 MINUTES [facility] [place] - 4 4 [facility] INC T OFFICE 74567 ISSA ISSA OUTPATIEN 4 4 JARON JARON T VISIT 5 MINUTES OFFICE 48314 ISS[facility] ISSA OUTPATIEN 4 4 JARON JARON T NEW 30 MINUTES Emergency PATRIC Burnett MD (ER) 4 16:35 4 17:[address] [facility] Emergency PATRIC BURNETT (ER) 3 16:45 3 18:19 [facility] [place] - 9 9 [facility] OUTPATIEN INC T EMERGENCY 96640 KIMBERLEE PASCUAL, 9 9 [facility] T VISIT ON HIGH/URGE NT SEVERITY EMERGENCY 61410 [facility] 9 9 [facility] DEPARTMEN INC T VISIT LOW/MODER SEVERITY
--- OUTSIDE RECORDS SUMMARY | 2017-09-09 23:18 | External Medical Summary Rpt | CCD ---
Author Author , YENNY Organization YENNY Address Unknown Phone [email or web address] Care Team Providers Care Crystal Lapper Name Role Phone ALFARIS MOH, ALFARIS Unavailable Unavailable MOH [facility] [place], [facility] [place] YVETTE JURADO MD, PSC, Unavailable Unavailable YVETTE JURADO MD, PSC ARNOLD HUBER, ARNOLD Unavailable Unavailable HUBER ARNOLD HUBER, ARNOLD Unavailable Unavailable HUBER ATKINS TRA, ATKINS Unavailable Unavailable TRA ATKINS TRA, ATKINS Unavailable Unavailable TRA [facility] Unavailable Unavailable [facility], [facility] Unavailable Unavailable MEDICAL GROUP, [facility] Un[facility] Unavailable [facility], [facility] Unavailable Unavailable OF ABISAI, [facility] BEMICHAEL, BEINEKE Unavailable [...] Unavailable [facility] Unavailable Unavailable HOSPITAL, [facility]available Unavailable SERVICE, [facility] Unavailable Unavailable SERVICE, [facility] BUX, BUX Unavailable Unavailable SVITLANA KILO, SVITLANA Unavailable Unavailable KILO CASE JUS, CASE JUS Unavailable Unavailable [facility] Un[facility] Un[facility]YS [facility], [facility] Unavailable ANESTHESIA, [facility] CHESTNUT, CHESTNUT Unavailable Unavailable HUMPHREY, HUMPHREY [...] AND Unavailable Unavailable [facility], [facility] Unavailable Unavailable HOSPITA, [facility] H[facility]PITA [facility] Unavailable Unavailable HOSPITA, [facility]OSP[facility], Unavailable Unavailable [facility] RODRIGUEZ TRI, RODRIGUEZ TRI Unavailable Unavailable ANDREWS RHO, ANDREWS Unavailable Unavailable R[facility] Unavailable Unavailable CENTER, [facility] Unavailable Unavailable INC, [facility] Unavailable [facility]available HOSPITAL P, [facility] BOYER CHRISTEL, BOYER CHRISTEL Unavailable Unavailable [facility], Unavailable Unavailable [facility] JAQUEZ, JAQUEZ Unavailable Unavailable VAUGHN TERA, VAUGHN Unavailable Unavailable TERA ADAMS, ADAMS Unavailable Unavailable ILUYOM[facility] ROT, Unavailable Unavailable [facility] FELICIA DUARTE Unavailable Unavailable [facility] Unavailable Unavailable GROUP PS, [facility] Unavailable Unavailable [facility], [facility] Unavailable [...] JR DWI, SCOTT Unavailable Unavailable JR DWI [facility] Unavailable Unavailable SPECIALISTS,, [facility], [facility] Unavailable Unavailable INTERNAL MED, [facility] BRITTNY, BRITTNY Unavailable [...] MAT BENSON, BENSON Unavailable Unavailable BENSON JOSE AGNEL, BENSON Unavailable Unavailable JOSE ANGEL RODRIGUEZ, RODRIGUEZ [...] #591 WALKER FOR, WALKER Unavailable Unavailable FOR [facility] Unavailable Unavailable DEPT [facility], [facility] Unavailable Unavailable DEPT JAZZ, [facility] SANCHEZ, SANCHEZ Unavailable Unavailable SANCHEZ MICHELLE, SANCHEZ MICHELLE Unavailable Unavailable WELLS, WELLS Unavailable Unavailable WELLS ELLEN, WELLS ELLEN Unavailable Unavailable WELLS SHA, WELLS SHA Unavailable Unavailable ROSENTHAL, ROSENTHAL Unavailable Unavailable ROSENTHAL MAR, ROSENTHAL MAR Unavailable Unavailable SRAAH KADIE, SARAH KADIE Unavailable Unavailable Purpose Continuity [...] [facility] R51 HEADACHE 07-15-2017 [facility] [id number] OTHER LONG 07-15-2017 [facility] TERM [facility] CURRENT INC DRUG THERAPY J309 ALLERGIC 07-11-2017 [facility] RHINITIS PHYSICIANS UNSPECIFIED GROUP J320 CHRONIC 07-11-2017 [facility] MAXILLARY PHYSICIANS SINUSITIS GROUP Z1231 ENCOUNTER 07-09-2017 [place] SCREENING MEDICAL MAMMO MALIG IMAGING ASS NEOPLASM BREAST E6601 MORBID 07-08-2017 [facility] OBESITY DUE MEDICAL TO EXCESS GROUP CALORIES K5900 CONSTIPATIO 07-08-2017 [facility] N HEALTH UNSPECIFIED MEDICAL GROUP R0981 NASAL 07-08-2017 [facility] R110 NAUSEA 07-08-2017 [facility] R635 ABNORMAL 07-08-2017 [facility] Z6841 BODY MASS 07-08-2017 [facility] INDEX BMI HEALTH 40.0-44.9 MEDICAL ADULT GROUP Z9884 BARIATRIC 07-08-2017 [facility] SURGERY [facility] R202 PARESTHESIA 07-07-2017 [facility] SKIN NEUROLOGY K06329 UNSPECIFIED 06-30-2017 [facility] ASTHMA PHYSICIANS, [facility]AT [facility] H524 PRESBYOPIA 06-27-2017 SCIFRCANELO Z539 PROCEDURE & 06-26-2017 [facility] TREATMENT HEALTH NOT CARRIED [place] OUT UNS REASON B370 CANDIDAL 06-22-2017 [place] STOMATITIS [facility] INC R1084 GENERALIZED 06-20-2017 [facility] ABDOMINAL PHYSICIANS, PAIN PLLC R109 UNSPECIFIED 06-20-2017 [place] ABDOMINAL MEDICAL PAIN IMAGING ASS R140 ABDOMINAL 06-20-2017 [place] DISTENSION MEDICAL GASEOUS IMAGING ASS J3501 CHRONIC 06-19-2017 [facility] TONSILLITIS PHYSICIANS GROUP J301 ALLERGIC 06-11-2017 [facility] RHINITIS [facility] DUE TO [place] POLLEN J3081 ALLERG 06-11-2017 [facility] RHINITIS [facility] OF D/T ANIMAL [place] CAT DOG HAIR & DANDER J3089 OTHER 06-11-2017 [facility]GIC [facility] RHINITIS [place] J4530 MILD 06-11-2017 [facility] PERSISTENT [facility] OF ASTHMA [place] UNCOMPLICAT ED A47735 OTHER 06-11-2017 [facility]QU[facility]MENT INC S46093 ALLERGY TO 06-11-2017 [facility] OTHER FOODS [facility] [place] R002 PALPITATION 06-10-2017 [facility] P L5781RR UNS INJURY 06-10-2017 [facility] LOWER MEDICAL LEG INITIAL IMAGING ASS ENCOUNTER R079 CHEST PAIN 06-04-2017 [place] UNSPECIFIED [place] INTERNAL MED E9907FH SPRAIN 06-01-2017 [place] UNSPECIFIED [facility] P KNEE INITIAL ENCNTR I912MTO UNS ADVERS 06-01-2017 [facility] EFFECT PHYSICIANS, DRUG/MEDICA PLL MENT INITIAL ENCNTR [id number] FALL SAME 06-01-2017 [place] YO SLIP [facility] P FURN INITIAL ENC L17882 BEDROOM 06-01-2017 [facility] P OCCUR EXT CAUSE E785 HYPERLIPIDE 05-19-2017 [facility] [place] UNSPECIFIED ANESTHESIA K449 DIAPHRAGMAT 05-19-2017 [facility] IC HERNIA [place] W/O ANESTHESIA OBSTRUCTION OR GANGRENE R1310 DYSPHAGIA 05-19-2017 [facility] UNSPECIFIED PHYS SURG CTR J069 ACUTE UPPER 05-05-2017 [facility] H[facility]P RESPIRATORY INC INFECTION UNSPECIFIED R072 PRECORDIAL 05-05-2017 [facility] , R0789 OTHER CHEST 05-04-2017 [facility] PAIN PHYSICIANS, SIVLIOC Z809 FAMILY 05-04-2017 [place] HISTORY OF [facility] MALIGNANT INC NEOPLASM UNSPECIFIED Z8249 FAMILY HX 05-04-2017 [facility] HRT [facility] OT HOSPITAL P DZ CIRC SYSTEM Z833 FAMILY 05-04-2017 [facility] DIABETES [facility] P MELLITUS Q93099 ENCOUNTER 04-30-2017 [facility] FOR HEALTH PREPROCEDUR [facility] CARIOVASCUL AR EXAM K14614 ENCOUNTER 04-30-2017 [facility] FOR [facility]ALTH PREPROCEDUR [facility] LABORATORY EXAM B977 PAPILLOMAVI 04-29-2017 [facility], RAJ CAUSE LLC OF DZ CLASSIFIED ELSEWHERE N870 MILD 04-29-2017 [facility], CERVICAL LLC DYSPLASIA L52733 ATYP SQ 04-29-2017 [facility] CELLS UNDET PHYSICIANS GROUP SIGNIFICANC E CYTOL SMER CERV D93953 CERV HIGH 04-29-2017 [facility] RSK HUMAN PHYSICIANS PAPILLOMAVI GROUP RAJ DNA TEST POS 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 04-10-2017 [facility] OF HEALTH ESOPHAGUS [facility] [id number] DECREASED 04-09-2017 [facility] CELL COUNT [facility] P UNSPECIFIED R1319 OTHER 04-08-2017 [facility] DYSPHAGIA [facility]ALTH [facility] GROUP N06181 SPONDYLOSIS 04-07-2017 YVETTE JURADO W/O , PSC MYELOPATH/R ADICULOPATH Y LUMB RGN M479 SPONDYLOSIS 04-07-2017 [facility] HOSP UNSPECIFIED INC 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, PSC RAL DISC DEGEN LUMBAR REGION R350 FREQUENCY 03-27-2017 [facility] MICTURITION [facility] P R3915 URGENCY OF 03-27-2017 [place] URINATION [facility] P R200 ANESTHESIA 03-25-2017 [place] OF SKIN MEDICAL IMAGING ASS R42 DIZZINESS 03-25-2017 [place] AND MEDICAL GIDDINESS IMAGING ASS D709 NEUTROPENIA 03-24-2017 [facility] P [id number] ADVERSE EFF 03-22-2017 [facility] DS SYNTH ANALOG INIT ENC K62356P ADVERS EFF 03-22-2017 [facility] RX MEDS [facility] BIO INC SUBSTANCES INIT ENC Y77022 OTHER 03-21-2017 [place] SPONDYLOSIS [facility] LUMBAR INC REGION M5116 INTERVERTEB 03-21-2017 [place] RAL DISC [facility] D/O INC W/RADICULOP ATHY LUMB RGN E08526 ENCOUNTER 03-19-2017 [facility], 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 EXAM LLC GENERAL RTN W/ABNORMAL FIND Y88735 ENCOUNTER 03-19-2017 [facility] 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 OPERATOR EXAM PHYSICIANS GENERAL RTN GROUP W/O ABNORMAL FIND H6982 OTHER SPEC 03-13-2017 [facility] DISORDERS PHYSICIANS EUSTACHIAN GROUP TUBE LT EAR 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[facility] UNI LT EAR PHYSICIANS UNRESTIRCT GROUP CONTRALAT SIDE R300 DYSURIA 03-12-2017 [facility] M4726 OT 03-03-2017 [place] SPONDYLOSIS [facility] INC W/RADICULOP ATHY LUMBAR REGION N390 URINARY 03-03-2017 [place] TRACT [facility] INFECTION INC SITE NOT SPECIFIED R911 SOLITARY 02-27-2017 [place] PULMONARY MEDICAL NODULE IMAGING ASS Z09 ENC F/U 02-27-2017 [place] EXAM AFTR MEDICAL CMPL TX OTH IMAGING ASS THAN MALIG NEOPLSM E669 OBESITY 02-25-2017 [facility] UNSPECIFIED PHYSICIANS GROUP I119 HYPERTENSIV 02-25-2017 [facility] E HEART PHYSICIANS DISEASE GROUP WITHOUT HEART FAILURE R0600 DYSPNEA 02-25-2017 [facility] UNSPECIFIED PHYSICIANS GROUP J310 CHRONIC 02-17-2017 [facility] RHINITIS PHYSICIANS GROUP J329 CHRONIC 02-17-2017 [facility] SINUSITIS PHYSICIANS UNSPECIFIED GROUP J342 DEVIATED 02-17-2017 [facility] NASAL PHYSICIANS SEPTUM GROUP M5416 RADICULOPAT 02-17-2017 [place] HY LUMBAR [facility] REGION INC M545 LOW BACK 02-17-2017 VYETTE JURADO, PAIN , PSC I998 OTHER 02-11-2017 [place] DISORDER OF [facility] INC CIRCULATORY SYSTEM R0602 SHORTNESS 02-11-2017 [place] OF BREATH [facility] INC G8929 OTHER 02-10-2017 [facility] CHRONIC [place]LEY PAIN INTERNAL MED U40904 PAIN IN 02-10-2017 [place] LEFT VALLEY SHOULDER INTERNAL MED M5440 LUMBAGO 02-10-2017 [place] WITH VALLEY SCIATICA INTERNAL UNSPECIFIED MED SIDE R5383 OTHER 01-31-2017 [facility] FATIGUE PHYSICIANS GROUP M792 NEURALGIA 01-27-2017 [place] AND VALLEY NEURITIS INTERNAL UNSPECIFIED MED I10 ESSENTIAL 01-26-2017 [place] PRIMARY [facility] HYPERTENSIO INC N M542 CERVICALGIA 01-26-2017 [facility] INC C73875 SPONDYLOSIS 01-22-2017 [place] W/O MEDICAL MYELOPATH/R IMAGING ASS ADICULOPATH Y CERV RGN T201MGE STRAIN 01-22-2017 [facility] MUSCLE FASC PHYSICIANS, & TENDON PLLC NECK LEVL INIT ENC C20377W STRAIN 01-16-2017 [facility] MUSCLE & PHYSICIANS, TENDON UNS PLLC WALL THORAX INIT ENC Z882 ALLERGY 01-11-2017 [facility] S[facility] S STATUS Z886 ALLERGY 01-11-2017 [facility] ANALGESIC [facility]PITAL AGENT STATUS Z888 ALLERGY 01-11-2017 [facility] STATUS OTH [facility]ITY [facility]OSPITAL BIOLOG SUBSTAN STS H9203 OTALGIA 01-10-2017 [place] BILATERAL [facility] INC I209 ANGINA 01-10-2017 [facility] PECTORIS [facility] UNSPECIFIED INC R071 CHEST PAIN 01-07-2017 [place] ON [place] BREATHING INTERNAL MED Z720 TOBACCO USE 01-04-2017 [facility] INC I87436 MUSCLE 12-25-2016 [place] SPASM OF [facility] BACK INC R1013 EPIGASTRIC 12-25-2016 [place] PAIN [place] INTERNAL MED R4702 DYSPHASIA 12-25-2016 [place] VINELAND INTERNAL MED B078 OTHER VIRAL 12-23-2016 [facility] WARTS K30 FUNCTIONAL 12-23-2016 [facility] DYSPEPSIA [facility] L218 OTHER 12-23-2016 [facility] SEBORRHEIC DERMATITIS L538 OTHER 12-23-2016 [facility] SPECIFIED ERYTHEMATOU S CONDITIONS R208 OTHER 12-23-2016 [facility] DISTURBANCE S OF SKIN SENSATION R238 OTHER SKIN 12-23-2016 [facility] CHANGES K5903 DRUG 12-17-2016 [place] INDUCED [facility] CONSTIPATIO INC N L946A2H ADVERSE 12-17-2016 [place] EFFECT [facility] OTHER INC OPIOIDS INITIAL ENCOUNTER K910 VOMITING 12-12-2016 [place] FOLLOWING [facility] GASTROINTES INC TINAL SURGERY R600 LOCALIZED 12-12-2016 [facility] EDEMA PHYSICIANS, PLLC R609 EDEMA 12-12-2016 [place] UNSPECIFIED [facility] INC V83794 OTHER 12-12-2016 [place] SPECIFIED MEDICAL POSTPROCEDU IMAGING ASS RAL STATES N393 STRESS 12-11-2016 [facility] INCONTINENC HEALTH E FEMALE [place] MALE Z903 ACQUIRED 12-11-2016 [facility] ABSENCE OF HEALTH STOMACH MONALISA R73074 ENCOUNTER 12-05-2016 [facility] FOR OTHER HEALTH PREPROCEDUR MEDICAL AL GROUP EXAMINATION K210 GASTRO-ESOP 11-22-2016 [facility] HAGEAL PHYSICIANS, REFLUX PLLC DISEASE W/ ESOPHAGITIS K625 HEMORRHAGE 11-19-2016 [place] OF ANUS AND VALLEY RECTUM INTERNAL MED M546 PAIN IN 11-08-2016 [facility] THORACIC PHYSICIANS, SPINE PLLC Z81543 PAIN IN 10-14-2016 [place] UNSPECIFIED MEDICAL HIP IMAGING ASS M533 SACROCOCCYG 10-14-2016 [place] EAL MEDICAL DISORDERS IMAGING ASS NEC U790TMW CONTUSION 10-14-2016 [facility] LOWER BACK PHYSICIANS, & PELVIS PLLC INITIAL ENCOUNTER O3633LQ UNSPECIFIED 10-14-2016 [place] INJURY MEDICAL LOWER BACK IMAGING ASS INITIAL ENCOUNTER N4314FL UNSPECIFIED 10-14-2016 [place] INJURY OF MEDICAL PELVIS IMAGING ASS INITIAL ENCOUNTER H3581 RETINAL 10-11-2016 [facility] ANG EDEMA R040 EPISTAXIS 10-10-2016 [facility] VINEL[place] INTERNAL MED E6609 OTHER 10-08-2016 [facility] OBESITY DUE BARIATRIC TO EXCESS SURGICAL CALORIES J3489 OTHER 10-06-2016 [facility] SPECIFIED PHYSICIANS, DISORDERS PLLC NOSE AND NASAL SINUSES R05 COUGH 10-06-2016 [place] [facility] A6004 HERPESVIRAL 09-27-2016 [facility] PHYSICIANS VULVOVAGINI GROUP TIS N760 ACUTE 09-27-2016 [facility] VAGINITIS PHYSICIANS GROUP M764R2S CONCUSSION 09-21-2016 [place] WITHOUT LOC [facility] INITIAL INC ENCOUNTER B7168PS UNSPECIFIED 09-21-2016 [place] INJURY OF MEDICAL HEAD IMAGING ASS INITIAL ENCOUNTER H6903 PATULOUS 09-19-2016 [facility] JARON EUSTACHIAN TUBE BILATERAL J50130 UNSPECIFIED 09-18-2016 [facility] PHYSICIANS OBSTRUCTION GROUP EUSTACHIAN TUBE BILAT R590 LOCALIZED 09-04-2016 [facility] P Z6834 BODY MASS 09-04-2016 [facility] INDEX BMI HEALTH 34.0-34.9 MEDICAL ADULT GROUP K5909 OTHER 09-03-2016 [facility] CONSTIPATIO GROUND N FAMILY CLINI R112 NAUSEA WITH 09-03-2016 [facility] VOMITING GROUND UNSPECIFIED FAMILY CLINI Z111 ENCOUNTER 09-02-2016 [facility] DE[facility] RESPIRATORY JAZZ TUBERCULOSI S M549 DORSALGIA 09-01-2016 [facility] UNSPECIFIED PHYSICIANS, PLLC R197 DIARRHEA 09-01-2016 [facility] UNSPECIFIED PHYSICIANS, PLLC L70412R ADVERSE 09-01-2016 [facility] HOSPITAL P SRI INITIAL ENCOUNTER X99201 UNS PLACE 09-01-2016 [facility] P PLACE OF OCCUR EXT R195 OTHER FECAL 08-30-2016 [facility] HOSP ABNORMALITI INC ES Z202 CONTACT 08-30-2016 [facility] WITH DISTRICT EXPOSURE [facility] DEPT INFECT JAZZ SEXUAL MODE TRANSMS R5381 OTHER 08-29-2016 [facility] MALAISE PHYSICIANS GROUP R9431 ABNORMAL 08-29-2016 [facility] ELECTROCARD PHYSICIANS IOGRAM GROUP Y02644 LYMPHOCYTOP 08-21-2016 [place] ENIA [facility] INC J4520 MILD 08-21-2016 [facility] INTERMITTEN PARTNERS OF T ASTHMA [place] UNCOMPLICAT ED C645CFH OTHER 08-21-2016 [facility] ADVERSE PARTNERS OF FOOD [place] REACTIONS NEC SUBSEQUENT ENC M791 MYALGIA 08-17-2016 [facility] PHYSICIANS, PLLC M898X9 OTHER 08-12-2016 [place] SPECIFIED MEDICAL DISORDERS IMAGING ASS BONE UNSPECIFIED SITE R599 ENLARGED 08-12-2016 [facility] LYMPH [facility]ES [facility] INC UNSPECIFIED R1314 DYSPHAGIA 08-10-2016 [facility] PHARYNGOESO PHYSICIANS, PHAGEAL PLLC PHASE R5382 CHRONIC 08-07-2016 [place] FATIGUE [facility] UNSPECIFIED INC R591 GENERALIZED 08-05-2016 [facility] P I208 OTHER FORMS 08-02-2016 [facility] P Y78175 PAIN IN 08-02-2016 [facility] RIGHT KNEE MEDICAL IMAGING ASS R55 SYNCOPE AND 08-02-2016 [facility] COLLAPSE PHYSICIANS, PLLC Z871LPJ UNSPECIFIED 08-02-2016 [place] INJURY OF MEDICAL NECK IMAGING ASS INITIAL ENCOUNTER F4247KU UNS INJURY 08-02-2016 [place] RT LOWER MEDICAL LEG INITIAL IMAGING ASS ENCOUNTER N281 CYST OF 08-01-2016 [place] [facility] P R209 UNSPECIFIED 07-29-2016 [facility] PHYSICIANS, DISTURBANCE PLLC S OF SKIN SENSATION K589 IRRITABLE 07-24-2016 [facility] BOWEL PHYSICIANS SYNDROME GROUP WITHOUT DIARRHEA R102 PELVIC AND 07-24-2016 [facility] PERINEAL PHYSICIANS PAIN GROUP N831 CORPUS 07-22-2016 [facility] LUTEUM CYST PHYSICIANS GROUP N920 EXCESS & 07-22-2016 [facility] FREQUENT PHYSICIANS MENSTRUATIO GROUP N W/REGULAR CYCLE L64763A STRAIN UNS 07-22-2016 [facility] MUSCLE FASC PHYSICIANS, TEND THIGH PLLC RT INITIAL ENC Z7251 HIGH RISK 07-22-2016 [facility] BEHAVIOR INC R12 HEARTBURN 07-18-2016 [facility] H9[facility]9 OTHER 07-17-2016 [facility] SPECIFIED PHYSICIANS DISORDERS GROUP OF EAR UNSPECIFIED EAR J302 OTHER 07-17-2016 [facility] SEASONAL PHYSICIANS ALLERGIC GROUP RHINITIS I1115SS LACERATION 07-13-2016 [facility] W/O FOREIGN PHYSICIANS, BODY SCALP PLLC INITIAL ENC R6889 OTHER 07-10-2016 [facility] SIGNS E780 PURE 07-09-2016 [facility] HYPERCHOLES BARIATRIC TEROLEMIA SURGICAL E876 HYPOKALEMIA 07-09-2016 [facility] P H6990 UNSPECIFIED 07-07-2016 [facility]ERG[facility] TUBE PHYS PSC DISORDER UNS EAR H938X3 OTHER 07-07-2016 [facility] SPECIFIED HEALTH DISORDERS [place] OF EAR BILATERAL M5432 SCIATICA 07-07-2016 [facility] LEFT SIDE EMERGENCY PHYS PSC R1010 UPPER 07-05-2016 [facility] ABDOMINAL PHYSICIANS, PAIN PLLC UNSPECIFIED I880 NONSPECIFIC 06-27-2016 [facility] MESENTERIC PHYSICIANS, PLLC LYMPHADENIT IS R100 ACUTE 06-27-2016 [facility]BDOMEN [facility]BULANCE SERVICE R1031 RIGHT LOWER 06-26-2016 [facility] PAIN PHYS B38769 RIGHT LOWER 06-26-2016 [facility] [place] ABDOMINAL HOSPITA TENDERNESS N200 CALCULUS OF 06-24-2016 [place] KIDNEY MEDICAL IMAGING ASS M5386 OTHER 06-11-2016 [place] SPECIFIED DORSOPATHIE S LUMBAR REGION D225 MELANOCYTIC 05-23-2016 [facility] LEI NEVI OF TRUNK D2272 MELANOCYTIC 05-23-2016 [facility] NEVI LEFT LOWER LIMB INCLUDING HIP 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 05-23-2016 [facility] UNCERTAIN BEHAVIOR OF SKIN L400 PSORIASIS 05-23-2016 [facility] VULGARIS L408 OTHER 05-23-2016 [facility] PSORIASIS [facility]STICS L578 [facility] 05-23-2016 [facility] CHANGES D/T CHRN EXPS TO NONIONIZING RAD R9439 ABNORMAL 04-08-2016 [facility] RESULT [facility] CARDIOVASCU MEDICAL LR FUNCTION GROUP STUDY I340 NONRHEUMATI 04-04-2016 [facility] MITRAL SERV [facility] INSUFFICIEN CY I351 NONRHEUMATI 04-04-2016 [facility] AORTIC [facility] INSUFFICIEN CY I361 NONRHEUMATI 04-04-2016 [facility] TRICUSPID SERV [facility] INSUFFICIEN CY M2550 PAIN IN 03-26-2016 [facility] UNSPECIFIED [facility] M7521 BICIPITAL 03-19-2016 [facility] TENDINITIS [place] RIGHT INTERNAL SHOULDER MED Z113 ENCOUNTER 03-13-2016 [facility], SCREEN LLC INFECTIONS SEXL MODE TRANSMISSN M778 OTHER 12-04-2015 [facility] ENTHESOPATH [place] IES NOT INTERNAL ELSEWHERE MED CLASSIFIED 01662 UNSPECIFIED 07-11-2015 [facility] VIRAL WARTS 2167 [...] SKIN 7020 ACTINIC 07-11-2015 [facility] KERATOSIS 74478 INFLAMED 07-11-2015 [facility] SEBORRHEIC KERATOSIS V700 ROUTINE 06-27-2015 [facility] DEPT [email or web address] FACL 26850 MORBID 06-20-2015 [facility] OBESITY BARIATRIC SURGICAL 87583 PAIN IN 06-20-2015 [facility] JOINT, SITE [facility] UNSPECIFIED 7823 EDEMA 06-20-2015 [facility] 78603 OTHER 06-20-2015 [facility] DYSPNEA AND MAI [...] MED DISEASE 7905 OTHER 06-12-2015 [facility] NONSPECIFIC [place] ABNORMAL INTERNAL SERUM MED ENZYME LEVELS 27086 UNSPEC 05-09-2015 [facility] DISORDERS PHYSICIANS BURSAE&TEND GROUP ONS SHOULDER REGION 7262 OTHER 05-09-2015 [facility] AFFECTIONS PHYSICIANS OF SHOULDER GROUP REGION NEC 47095 OBESITY, 05-04-2015 [facility] UNSPECIFIED OLOGY AND HEPATOL 3674 PRESBYOPIA 04-28-2015 [place] 43279 CHEST PAIN 04-28-2015 [facility] UNSPECIFIED HEALTH MEDICAL GROUP 44132 ABDOMINAL 04-25-2015 [place] PAIN, COMMUNTIY UNSPECIFIED HOSPITA SITE 4019 UNSPECIFIED 04-16-2015 [place] [facility] HYPERTENSIO INC N 5990 URINARY 04-16-2015 [facility], INFECTION [facility] SITE NOT SPECIFIED 7948 NONSPECIFIC 04-16-2015 [place] [facility] RESULTS INC LIVR FUNCTION STUDY 5739 UNSPECIFIED 04-14-2015 [facility] [place] DISORDER RADIOLOGY OF LIVER 7906 OTHER 04-14-2015 [place] ABNORMAL COMM[facility]TIY BLOOD HOSPITA CHEMISTRY 5939 UNSPECIFIED 04-06-2015 [place] DISORDER MEDICAL OF KIDNEY IMAGING ASS AND URETER 7891 HEPATOMEGAL 04-06-2015 [facility] Y OLOGY AND HEPATOL V140 PERSONAL 04-05-2015 [place] HISTORY OF [facility] ALLERGY TO HOSPITAL P PENICILLIN 03830 ABDOMINAL 04-03-2015 [facility] PAIN, GENERALIZED 5758 OTHER 04-01-2015 [place] SPECIFIED [facility] DISORDER OF HOSPITAL P GALLBLADDER 22822 OTHER 04-01-2015 [place] SPECIFIED MEDICAL DISORDER OF IMAGING ASS KIDNEY AND URETER 18513 ABDOMINAL 04-01-2015 [facility] PA[facility] RIGHT MEDICAL UPPER IMAGING ASS QUADRANT 59456 ABDOMINAL 04-01-2015 [place] PAIN, [facility] EPIGASTRIC [facility]OSPITAL P 7295 PAIN IN 03-29-2015 [place] SOFT COMMUNTIY TISSUES OF HOSPITA LIMB V4589 OTHER 03-29-2015 [place] POSTSURGICA COMMUNTIY L STATUS HOSPITA OTHER 67276 OTHER 03-24-2015 [place] MALAISE AND COMMUNTIY FATIGUE HOSPITA V6700 FOLLOW-UP 03-21-2015 [facility] [place] EXAMINATION RADIOLOGY FOLLOWING UNSPEC SURGERY 90371 ESOPHAGEAL 03-20-2015 [place] REFLUX ANESTHESIA GROUP PS 6256 FEMALE 03-20-2015 [place] STRESS COMMUNTIY INCONTINENC HOSPITA E 48128 PAIN IN 03-20-2015 [facility] JOINT, BARIATRIC MULTIPLE SURGICAL SITES 13879 DIASTASIS 03-20-2015 [place] OF MUSCLE COMMUNTIY HOSPITA 7892 SPLENOMEGAL 03-20-2015 [place] Y COMMUNTIY HOSPITA V8543 BODY MASS 03-20-2015 [place] INDEX COMMUNTIY 50.0-59.9 HOSPITA ADULT 2639 UNSPECIFIED 03-14-2015 [place] COMMUNTIY PROTEIN-TE[place]IT[place] N [address] MIGRAINE 03-07-2015 [facility] UNSP W/O BARIATRIC 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 MIGRAINOSUS 92887 OTHER 03-07-2015 [facility] URINARY BARIATRIC INCONTINENC SURGICAL E 6929 CONTACT 03-06-2015 [facility] DERMATITIS& OTHER [facility] DUE UNSPEC CAUSE 6822 CELLULITIS 03-02-2015 [place] [facility] P V148 PERSONAL 03-02-2015 [facility] ALL[facility]GY [facility] P SPEC MEDICINAL AGTS V571 OTHER 02-22-2015 [facility] THERAPY INC 2724 OTHER AND 02-20-2015 [place] UNSPECIFIED COMMUNTIY HOSPITA HYPERLIPIDE LILIANE 7245 UNSPECIFIED 02-20-2015 [place] BACKACHE COMMUNTIY HOSPITA V7283 OTHER 02-20-2015 [place] SPECIFIED COMMUNTIY PRE-OPERATI HOSPITA VE EXAMINATION 2875 UNSPECIFIED 02-15-2015 [facility] P PENIA 7932 NONSPC ABN 02-10-2015 [place] [facility] RAD&OTH [facility] EXAM OT INTRTHOR ORGN V7282 PRE-OPERATI 02-10-2015 [place] [facility] RESPIRATORY FOUNDATION EXAMINATION 5930 NEPHROPTOSI 02-09-2015 [facility] [place] P 7802 SYNCOPE AND 02-01-2015 [facility] MEDICAL G 4139 OTHER AND 01-18-2015 [facility] [place] 77797 SHORTNESS 01-18-2015 [facility] 41262 OTHER CHEST 01-18-2015 [facility] P 32659 OSTEOARTHRO 12-30-2014 DANIEL Reddy INVLV MX SITES BUT [place] SPEC GEN 02829 PAIN IN 11-09-2014 [place] [facility], MEDICAL SHOULDER IMAGING ASS REGION V5832 ENCOUNTER 11-09-2014 [place] [facility] P 14767 PILAR CYST 11-02-2014 [facility] 20421 UNSPECIFIED 10-06-2014 [facility] INFE[facility] PHYS IN CCE & UNS SITE 7840 HEADACHE 10-06-2014 [place] [facility] 93238 ATROPHIC 09-16-2014 [facility] MENTION OF HEMORRHAGE 70051 OTHER SPEC 09-16-2014 [facility] WITHOUT MENTION HEMORRHAGE 78968 DYSPHAGIA 09-16-2014 [place] UNSPECIFIED ANESTHESIA GROUP PS 6869 UNSPEC 08-17-2014 [facility] LOCAL INFECTION SKIN&SUBCUT ANEOUS TISSUE V7284 UNSPECIFIED 08-09-2014 [facility] VE EXAMINATION 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 7019 UNSPECIFIED 08-04-2014 [facility] HYPERTROPHI C&ATROPHIC CONDITION SKIN 63811 OTHER 08-04-2014 [facility] SEBORRHEIC KERATOSIS 7851 PALPITATION 08-04-2014 [facility] MEDICAL G V7281 PRE-OPERATI 07-21-2014 [facility] CARDIOVASCU MEDICAL G LAR EXAMINATION 75367 PAINFUL 07-05-2014 [facility] BRYCE RESPIRATION V771 SCREENING 05-24-2014 [facility] DI[facility]ETES MELLITUS 470 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 4779 ALLERGIC 03-17-2014 [facility] RHINITIS CAUSE UNSPECIFIED 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 01-10-2014 [facility] MAXILLARY SINUSITIS V0481 NEED 01-06-2009 [facility] PROPHYLACTI HEALTH C CENTRAL VACCINATION BANK ACCT &INOCULATIO N FLU 30627 PAIN IN 01-04-2009 [place] [facility] PELVIC IMAGING REGION AND ASSOCIATES THIGH 49117 DISPLCMT 01-04-2009 [place] LUMBAR MEDICAL INTERVERT 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 8460 SPRAIN AND 01-04-2009 [employer] 8472 LUMBAR 01-04-2009 [place] [facility] STRAIN INC 08118 CONTUSION 01-04-2009 [employer] BACK Tape TV 50454 CONTUSION 01-04-2009 [employer] WeVorce E8490 PLACE OF 01-04-2009 [place] OCCURRENCE, MEDICAL [...] ia de te s n re d PA 31 09 10 60 30 00 CL Ac NT 72 -1 -1 .0 00 IN ti OP 20 4- 3- 00 00 IC ve RA 71 20 20 44 ZO 39 17 17 25 PH LE 0 85 AR MA SO CY D DR 40 MG TA B BU 00 09 10 90 30 00 CL Ac SP 11 -1 -1 .0 00 IN ti IR 51 5- 3- 00 00 IC ve ON 69 20 20 44 E 10 17 17 28 PH HC 3 38 AR L MA 10 CY MG TA BL ET VE 00 09 10 18 16 00 [...] 48 -1 -0 .0 00 IN ti NC 70 1- 6- 00 00 IC ve N 02 20 20 44 D3 37 17 17 20 PH 1 85 AR 1, MA 00 CY 0 UN IT TA BL ET LI 00 09 09 [...] 17 79 PH E 6 94 AR TX MA OP CY 50 MC G SP [...] 37 .5 MG CA P OM 00 09 09 60 30 00 [...] CY ER 10 MG TA BL ET CY 43 08 09 28 14 00 CL Ac CL 54 -2 -2 .0 00 IN ti OB 70 8- 2- 00 00 IC ve EN 39 20 20 43 ZA 91 17 17 63 PH TX 0 09 AR IN MA E CY [...] (5 0, 00 0 UN IT ) GA 45 08 09 90 30 00 CL Ac BA 96 -2 -2 .0 00 IN ti PE 30 8- 2- 00 00 IC ve NT 55 20 20 44 IN 55 17 17 07 PH 0 99 AR 10 MA 0 CY MG CA PS UL E KE 00 08 09 6. 3 00 [...] MA G CY CA PS UL E AZ 51 08 09 30 30 00 CL Ac EL 52 -1 -0 .0 00 IN ti 50 0- 8- 00 00 IC ve TI 29 20 20 43 NE 40 17 17 38 PH 3 80 AR 0. MA 1% CY (1 37 MC G) SP RY VE 00 08 09 18 16 00 [...] 17 79 PH E 6 94 AR TX MA OP CY 50 MC G SP [...] L CY 4 MG TA BL ET TX 00 08 09 8. 2 00 CL Ac OM 59 -1 -0 00 00 IN ti ET 15 6- 8- 0 00 IC ve CARTY 30 20 20 43 ZI 71 17 17 96 PH NE 0 36 AR MA 25 CY MG TA BL ET TX 59 08 09 10 5 00 RI Ac ED 74 -0 -0 .0 00 TE ti NI 60 8- 1- 00 01 ve SO 17 20 20 19 AI NE 50 17 17 46 D 6 80 PH 20 AR MA MG CY TA #3 BL 93 ET 8 LO 68 08 09 30 30 00 [...] D CY 10 MG TA BL ET BU 16 08 09 90 30 00 CL Ac SP 72 -0 -0 .0 00 IN ti IR 90 4- 1- 00 00 IC ve ON 20 20 20 43 E 20 17 17 84 PH HC 1 99 AR L MA 10 CY MG TA BL ET CY 00 08 09 28 14 00 CL Ac CL 59 -0 -0 .0 00 IN ti OB 13 4- 1- 00 00 IC ve EN 25 20 20 43 ZA 60 17 17 63 PH TX 1 09 AR IN MA E CY 5 MG TA BL ET NY 60 07 08 [address] 43 -3 -2 0. 00 TE ti AT 20 0- 5- 00 01 ve IN 53 20 20 0 19 AI 71 17 17 37 D 10 6 30 PH 0, AR 00 MA 0 CY UN IT #3 /M 93 L 8 GOMEZ SP CE 69 07 08 30 10 00 CL Ac PH 54 -2 -2 .0 00 IN ti AL 30 7- 5- 00 00 IC ve EX 10 20 20 43 IN 25 17 17 79 PH 0 68 AR 50 MA 0 CY MG CA PS UL E GA 45 08 08 90 30 00 [...] .5 00 IN ti EN 30 9- 99 00 IC ve T 71 20 20 43 HF 82 17 17 73 PH A 0 72 AR 44 MA CY MC G IN CARTY LE R CY 00 07 08 28 14 00 CL Ac CL 59 -0 -0 .0 00 IN ti OB 13 8- 4- 00 00 IC ve EN 25 20 20 43 ZA 60 17 17 63 PH TX 1 09 AR IN MA E CY [...] CY ON E 10 MG TA B LO 45 07 08 30 30 00 [...] 43 RA 30 17 17 61 PH NC 5 60 AR DE MA CY 10 MG TA BL ET FL 50 07 08 16 30 00 CL Ac UT 38 -0 -0 .0 00 IN ti IC 30 7- 4- 00 00 IC ve 70 20 20 42 ON 01 17 17 79 PH E 6 94 AR TX MA OP CY 50 MC G SP [...] CY MG TA BL ET RA 00 07 08 60 30 00 [...] (5 0, 00 0 UN IT ) GA 45 07 07 90 30 00 [...] YL 15 2- 7- 00 01 ve TX 02 20 20 18 AI ED 20 [...] 17 79 PH E 6 94 AR TX MA OP CY 50 MC G SP [...] 43 ZA 60 17 17 25 PH TX 1 00 AR IN MA E CY [...] MA 0 CY MG TA BL ET HY 00 05 06 30 [address] 18 -3 -2 .0 00 IN ti OX 50 1- 3- 00 00 IC ve YZ 67 20 20 42 IN 40 17 17 97 PH E 1 29 AR PA MA M CY 25 MG CA P LI 00 05 06 30 30 00 CL Ac NZ 45 -1 -2 .0 00 IN ti ES 61 8- 3- 00 00 IC ve S 20 20 20 42 14 13 17 17 47 PH 5 0 82 AR MC MA G CY CA PS UL E AM 66 05 06 20 10 00 [...] CY TA #3 BL 93 ET 8 LO 45 05 06 30 30 00 CL Ac RA 80 -1 -0 .0 00 IN ti TA 20 1- 9 00 IC ve DI 65 20 20 42 NE 08 17 17 35 PH 7 22 AR 10 MA CY MG TA BL ET FL 50 05 06 16 30 00 CL Ac UT 38 -1 -0 .0 00 IN ti IC 30 1- 9- 00 IC ve 70 20 20 42 ON 01 17 17 79 PH E 6 94 AR TX MA OP CY 50 MC G SP [...] IN ti AF 20 5- 9- 00 IC ve AX 03 20 20 42 IN 40 17 17 89 PH E 6 94 AR HC MA L CY ER 37 .5 MG CA P OX 62 05 06 [...] (5 0, 00 0 UN IT ) ON 67 05 05 15 3 00 [...] 42 ZA 60 17 17 82 PH TX 1 16 AR IN MA E CY 5 MG TA BL ET FL 50 04 05 16 30 00 CL Ac UT 38 -1 -1 .0 00 IN ti IC 30 3- 2- 00 00 IC ve 70 20 20 42 ON 01 17 17 79 PH E 6 94 AR TX MA OP CY 50 MC G SP [...] 42 ZA 60 17 17 59 PH TX 1 23 AR IN MA E CY [...] 10 7- 1- 00 00 IC ve NC 47 20 20 42 01 17 17 [...] 0 CY MG CA PS UL E TX 65 03 03 20 5 00 CL [...] 1 70 PH CE AR TA MA NC CY NO PH #3 93 7. 8 [...] 17 53 PH E 6 48 AR TX MA OP CY 50 MC G SP [...] 42 ZA 60 17 17 30 PH TX 1 05 AR IN MA E CY [...] MG #3 TA 93 BL 8 ET TX 59 02 03 10 5 00 RI [...] 05 CY % SO ROSS TI ON 64 01 02 4. 28 00 CL [...] 17 53 PH E 9 48 AR TX MA OP CY 50 MC G SP RA Y CY 00 02 02 14 7 00 CL Ac CL 59 -0 -2 .0 00 IN ti OB 15 1- 4- 00 00 IC ve EN 65 20 20 42 ZA 81 17 17 08 PH TX 0 66 AR IN MA E CY 10 MG TA BL ET BU 00 02 02 90 30 00 CL Ac SP 37 -0 -2 .0 00 IN ti IR 81 1- 4- 00 00 IC ve ON 15 20 20 42 E 00 17 17 08 PH HC 1 76 AR L MA 10 CY MG TA BL ET GE 60 [...] 5 25 PH CE AR TA MA NC CY NO PH OF CY 7. NT [...] 12 01 20 10 00 CL Ac TX 46 -2 -2 .0 00 IN ti [...] 12 01 14 7 00 CL Ac TX 46 -1 -2 .0 00 IN ti [...] 17 53 PH E 9 48 AR TX MA OP CY 50 MC G SP RA Y ME 59 02 02 00 21 6 CL 18 GA Ac TH 74 -1 -2 .0 IN 75 IN ti YL 60 2- 6- 00 IC 10 EY ve TX 00 20 20 ED 10 09 09 PH NC NI 3 AR CH SO MA AE LO CY L NE S 4 MG DO SE PK CY 59 02 02 00 21 7 CL 18 GA Ac CL 74 -1 -2 .0 IN 75 IN ti OB 60 2- 6- 00 IC 11 EY ve EN 17 20 20 ZA 70 09 09 PH NC TX 6 AR CH IN MA AE E [...] Procedures Procedure DOS Code Location Performer Comment LIPID 80547 [place] [facility]EL [facility] INC INC COMPREHEN 89969 [place] [facility] SIVE [facility] METABOLIC INC INC PANEL IIV4 VACC 25067 [place] [facility] SPLIT 7 [facility] VIRUS 0.5 INTERNAL ML DOS MED FOR IM USE COLLECTIO 92415 [place] [facility] N VENOUS 7 [facility] BLOOD INC INC VENIPUNCT URE BLOOD 78358 [place] [facility] COUNT 7 [facility] COMPLETE INC INC AUTO&AUTO DIFRNTL WBC 25 06924 [place] [facility] HYDROXY 7 [facility] INCLUDES INC INC FRACTIONS IF PERFORMED IM ADM 18436 [place] [facility] PRQ ID 7 [facility] SUBQ/IM INTERNAL NJXS 1 MED VACCINE THERAPEUT 86155 [place] [facility] IC 7 [facility] PROPHYLAC INC INC TIC/DX INJECTION SUBQ/[place] [address] [place] [facility] MAXILLOFA 7 [facility] CIAL W/O INC INC CONTRAST MATERIAL UNCLASSIF J3490 [place] [facility] IED DRUGS 7 [place] [address] [place] [facility] HEAD/BRAI 7 [facility] N W/O INC INC CONTRAST MATERIAL GROUND A0425 [facility] PER SERVICE SERVICE STATUTE MILE AMBULANCE A0429 [facility] SERVICE 7 AMBULANCE AMBULANCE BLS SERVICE SERVICE EMERGENCY TRANSPORT SCREENING 12111 [place] [facility] MAMMOGRAP INC INC HY BI 2-VIEW BREAST INC CAD SCREENING G0202 [facility] 7 MEDICAL MAMMOGRAP IMAGING HY WILBERT ASS INCL CAD WHEN PERFORMD NERVE 95261 CINTHYA RODRIGUEZ CONDUCTIO 7 N N STUDIES NEUROLOGY 9-10 STUDIES NEEDLE 09077 [facility] EMG EA 7 N EXTREMTY NEUROLOGY W/PARASPI NL AREA COMPLETE NEEDLE 65321 CrunchyrollLICOW RODRIGUEZ EMG EA 7 N EXTREMTY NEUROLOGY W/PARASPI NL AREA COMPLETE NERVE 69395 ipnexus CONDUCTIO 7 N N STUDIES NEUROLOGY 9-10 STUDIES OPHTH 58682 [employer] MEDICAL 7 XM&EVAL COMPRHNSV ESTAB PT 1/> ESOPHAGEA 78568 DOMINICK Ortega 7 [facility] HEALTH MOTILITY [facility] STUDY W/INTERP& [place] [address] [facility] ABDOMEN & 7 MEDICAL PELVIS IMAGING W/O ASS CONTRAST MATERIAL BLOOD 40129 [place] COUNT 7 [facility] COMPLETE INC AUTO&[place] [address] [place] LIPASE 7 [facility] INC INC URNLS DIP 42856 [place] [facility] 7 [facility] STICK/TAB INC INC LET REAGENT AUTO MICROSCOP Y UNCLASSIF J3490 [place] IED DRUGS 7 [facility] INC INC COMPREHEN 66508 [place] [facility] SIVE 7 [facility] [place] [address] [place] [facility] AMYLASE 7 [facility] INC INC URINE 51301 [place] 7 [facility] TEST INC INC VISUAL COLOR CMPRSN METHS SPACR A4627 MT MED MT MED BAG/RESRV 7 EQUIPMENT EQUIPMENT OR W/WO INC INC MASK W/METRD DOSE INHAL NITRIC 74573 [facility] OXIDE 7 [facility] G[facility] DETERMINA TION DEMO&/VIPUL 29004 [facility] L OF PT 7 [facility] [place] AERSL CO GEN/NEB/I NHLR/IP SPMTRY 65194 [facility] W/VC 7 [facility] [place] Y ABHI CO W/WO MXML VOL VNTJ XTRNL ECG 82909 [place] [facility] & 48 HR 7 [facility] RECORDING INC INC XTRNL ECG 59976 [place] MATUTE 7 [facility] S RHYTHM P W/I&R UP TO 48 HRS RADIOLOGI 51483 [place] [facility] C 7 MEDICAL EXAMINATI IMAGING ON KNEE 3 ASS VIEWS EXTERNAL 79652 [place] [facility] ECG 7 [facility] SCANNING INC INC ANALYSIS REPORT COMPREHEN 19735 [place] [facility] SIVE 7 [facility] METABOLIC INC INC PANEL CREATINE 38710 [place] [facility] KINASE MB 7 [facility] [address] [place] [facility] TROPONIN 7 [facility] QUANTITAT INC INC SABIHA CREATINE 27359 [place] [facility] KINASE 7 [facility] TOTAL INC INC ECG 81253 [facility] ROUTINE 7 [facility] W/LEAST P 12 LDS I&R ONLY ECG 09313 [place] [facility] ROUTINE 7 [facility] ECG INC INC W/LEAST 12 LDS TRCG ONLY W/O I&R EGD 58254 JAIN DANIEL TRANSORAL 7 [facility] BIOPSY MEDICAL SINGLE/MU GROUP LTIPLE ANES [address] [facility] UPPER GI 7 [place] ENDOSCOPY ANESTHESI PROXIMAL A TO DUODENUM ECG 08198 [facility] ROUTINE 7 HEART ECG SPECIALIS W/LEAST TS, 12 LDS I&R ONLY ECG 09809 [facility] ROUTINE 7 PHYSICIAN ECG S, PLLC W/LEAST 12 LDS I&R ONLY ECG 05023 [place] ROUTINE 7 [facility] ECG INC INC W/LEAST 12 LDS TRCG ONLY W/O I&[place] [address] [place] [facility] TROPONIN 7 [facility]OSP QUANTITAT INC INC SABIHA COMPREHEN 34741 [place] SIVE 7 [facility] METABOLIC INC INC PANEL COLLECTIO 52807 JAIN JAIN N VENOUS 7 [facility] BLOOD [facility] VENIPUNCT URE ECG 45196 JAIN JAIN ROUTINE 7 [facility] ECG [facility] W/LEAST 12 LDS TRCG ONLY W/[place] [address] [facility], PICKLESIM SURG 7 [facility] ER JR PATHOLOGY GROSS&BRYCE ROSCOPIC EXAM COLPOSCOP 09970 [facility] KAM Mercedes CERVIX 7 PHYSICIAN BX CERVIX S GROUP & [place] [address] JAIN JAIN TRACT 7 [facility] UPPER [facility] W/WO DELAYED IMAGES W/KUB UNCLASSIF J3490 [place] [facility] IED DRUGS 7 [facility] [place] [address] [facility] HEAD/BRAI 7 MEDICAL MEDICAL N W/O IMAGING IMAGING CONTRAST ASS ASS MATERIAL COLLECTIO 58238 [place] [facility] N VENOUS 7 [facility] [place]LOOD [place] [address] [place] [facility] GAMMAGLOB 7 [facility] ULIN IGA INC INC IGD IGG IGM EACH COMPREHEN 52049 [place] [facility] SIVE 7 [facility] METABOLIC INC INC PANEL LIPID 00077 [place] [facility] PANEL 7 [facility] INC INC GONADOTRO 83084 [place] PIN 7 [facility] FOLLICLE INC INC STIMULATI NG HORMONE GONADOTRO 23094 [place] [facility] PIN 7 [facility] LUTEINIZI INC INC NG HORMONE BLOOD 71544 [place] COUNT 7 [facility] COMPLETE INC INC AUTO&AUTO DIFRNTL WBC BLOOD 60467 [place] [facility] COUNT 7 [facility] COMPLETE INC INC AUTO&[place] [address] [place] INFUSION 7 [facility] THERAPY/P INC INC ROPHYLAXI S /DX 1ST TO 1 HR COMPREHEN 05148 [place] [facility] SIVE 7 [facility] METABOLIC INC INC PANEL URNLS DIP 06728 [place] [facility] 7 [facility] STICK/TAB INC [place] [address] [place] [facility] INFUSION 7 [facility] THERAPY INC INC PROPHYLAX IS/DX EA HOUR UNCLASSIF J3490 [place] [facility] IED DRUGS 7 [facility] INC INC UNCLASSIF J3490 [place] [facility] IED DRUGS 7 [facility] [place] [address] [facility] BUX DX/THER 7 MD RHIANNON, SBST PSC INTRLMNR LMBR/SAC W/IMG GDN IADNA 24368 [facility] TOD ESQUIVEL HUMAN 7 LLC [place] VIRUS HIGH-RISK TYPES URNLS DIP 94374 [facility] HUMPHREY 7 PHYSICIAN STICK/TAB S GROUP LET RGNT NON-AUTO W/O MICRSCP CYTP 64141 [facility] TOD ESQUIVEL CERVICAL/ 7 LLC VAGINAL REQ INTERP PHYSICIAN CYTP C/V 72184 [facility], TOD AUTO THIN 7 LLC LYR PREPJ SCR MNL RESCR PHYS ECG 35329 [place] [facility] ROUTINE 7 [facility] ECG INC INC W/LEAST 12 LDS TRCG ONLY W/O I&R ANTINUCLE 25724 [place] [facility] AR 7 [facility] ANTIBODIE INC INC S SANNA BLOOD 05514 [place] [facility] COUNT 7 [facility] COMPLETE INC INC AUTO&AUTO DIFRNTL WBC PROTEIN 91387 [place] [facility] ELECTROPH 7 [facility] ORETIC INC INC FRACTJ&QU ANTJ SERUM COMPREHEN 19358 [place] [facility] SIVE 7 [facility] METABOLIC INC INC PANEL COLLECTIO 47986 [place] [facility] N VENOUS 7 [facility] BLOOD INC INC VENIPUNCT URE URNLS DIP 88309 [place] [facility] 7 [facility] STICK/TAB INC INC LET RGNT AUTO W/O MICROSCOP Y COLLECTIO 56644 [place] [facility] N VENOUS 7 [facility] [place]LO[place] [address] [place] [facility] UREA 7 [facility] NITROGEN INC INC QUANTITAT SABIHA UNCLASSIF J3490 [place] [facility] IED DRUGS 7 [facility] INC INC CT THORAX 59033 [place] [facility] 7 [facility] W/CONTRAS INC INC T MATERIAL CREATININ 57061 [place] [facility] E BLOOD 7 [facility] [place] [place] [address] [facility] DUFF DX/THER 7 MD RHIANNON, AGT PVRT PSC FACET JT LMBR/SAC 1 LEVEL NJX 71164 [facility] DUFF DX/THER 7 MD RHIANNON, AGT PVRT PSC FACET JT LMBR/SAC 2ND LEVEL NJX 73991 [facility] DUFF DX/THER 7 MD RHIANNON, AGT PVRT PSC FACET JT LMBR/SAC 3+ LEVEL ECG 91048 [place] [facility] ROUTINE 7 [facility] ECG INC INC W/LEAST 12 LDS TRCG ONLY W/O I&R ECG 58125 [facility] ROUTINE 7 PHYSICIAN ECG S GROUP W/LEAST 12 LDS I&R ONLY ECG 39885 [place] ROUTINE 7 [facility] W/LEAST P 12 LDS I&R ONLY ECG 98752 [place] ROUTINE 7 [facility] ECG INC INC W/LEAST 12 LDS TRCG ONLY W/O I&R THERAPEUT 88772 [place] [facility] IC 7 [facility] INJECTION INC INC IV PUSH EACH NEW DRUG THER 78142 [place] [facility] PROPH/DX 7 [facility] NJX IV INC INC PUSH SINGLE/1S T SBST/DRUG RADEX 04969 [place] [facility] ABDOMEN 7 [facility] COMPL INC INC W/DCBTS&/ ERC VIEWS BLOOD 01720 [place] [facility] COUNT 7 [facility] COMPLETE INC INC AUTO&[place] [address] [place] [facility] LIPASE 7 [facility] INC INC CREATINE 58009 [place] [facility] KINASE 7 [facility] [place] [place] [address] [place] [facility] TROPONIN 7 [facility] QUANTITAT INC INC SABIHA UNCLASSIF J3490 [place] [facility] IED DRUGS 7 [place] [address] [place] [facility] AMYLASE 7 [facility] INC INC CREATINE 99977 [place] [facility] KINASE MB 7 [facility] FRACTION INC INC ONLY COMPREHEN 90216 [place] [facility] SIVE 7 [facility] METABOLIC INC INC PANEL ECG 00671 [place] [facility] ROUTINE 7 [facility] ECG INC INC W/LEAST 12 LDS TRCG ONLY W/O I&R ECG 60482 [facility] ROUTINE 7 PHYSICIAN ECG S GROUP W/LEAST 12 LDS I&R ONLY ECG 25608 [facility] ROUTINE 7 PHYSICIAN ECG S GROUP W/LEAST 12 LDS I&R ONLY XTRNL ECG 74186 [place] [facility] & 48 HR 7 [facility] RECORDING INC INC ECG 58692 [facility] ROUTINE 7 PHYSICIAN ECG S, PLLC W/LEAST 12 LDS I&R ONLY RADIOLOGI 31877 [facility] C EXAM 7 PHYSICIAN CHEST 2 S, PLLC VIEWS FRONTAL&L ATERAL ECG 74846 [place] [facility] ROUTINE 7 [facility] ECG INC INC W/LEAST 12 LDS TRCG ONLY W/O I&R CREATINE 50109 [place] [facility] KINASE 7 [facility] TOTAL INC INC BLOOD 16060 [place] [facility] COUNT 7 [facility] COMPLETE INC INC AUTO&AUTO DIFRNTL WBC COMPREHEN 60232 [place] [facility] SIVE 7 [facility] METABOLIC INC INC PANEL CREATINE 83634 [facility] [facility] KINASE MB 7 [facility] FRACTION INC INC ONLY AMB A0427 [facility] SERVICE 7 AMBULANCE AMBULANCE ALS SERVICE SERVICE EMERGENCY TRANSPORT LEVEL 1 GROUND A0425 [facility] MILEAGE 7 AMBULANCE AMBULANCE [place] [address] [place] [facility] TROPONIN 7 [facility] QUANTITAT INC INC SABIHA MRI 89866 [facility] SPINAL 7 CANAL ORTHOPAED LUMBAR ICS PSC W/O CONTRAST MATERIAL RADEX 92669 [facility] SPINE 7 [place] LUMBOSACR ORTHOPAED AL 2/[address] [place] [address] [facility] CERVICAL 7 MEDICAL MEDICAL SPINE W/O IMAGING IMAGING CONTRAST ASS ASS MATERIAL ECG 73812 [place] [facility] ROUTINE 7 [facility] ECG INC INC W/LEAST 12 LDS TRCG ONLY W/O I&R ECG 90015 [place] ROUTINE 7 [facility] W/LEAST P 12 LDS I&[place] [address] [place] HEAD/BRAI 7 MEDICAL N W/O IMAGING CONTRAST ASS MATERIAL COLLECTIO 79218 [place] [facility] N VENOUS 7 [facility] BLOOD [place] [address] [place] [facility] FOLIC 7 [facility] ACID INC INC SERUM 25 47562 [place] [facility] HYDROXY 7 [facility] INCLUDES INC INC FRACTIONS IF PERFORMED CYANOCOBA 82180 [place] [facility] LYUBOV 7 [facility] VITAMIN INC INC B-12 THERAPEUT 84566 [place] [facility] IC 7 [facility] PROPHYLAC INC INC TIC/DX INJECTION SUBQ/IM UNCLASSIF J3490 [place] [facility] IED DRUGS 7 [facility] INC INC UNCLASSIF J3490 [place] [facility] IED DRUGS 7 [facility] INC INC URNLS DIP 14453 [place] [facility] 7 [facility] STICK/TAB INC INC LET REAGENT AUTO MICROSCOP Y DESTRUCTI 38308 [facility] BENIGN 7 LESIONS UP [place] [address] [place] [address] JAIN JAIN TRACT 7 [facility] W/WO DELAYED IMAGES W/KUB RADEX 47324 [place] [facility] ABDOMEN 1 7 MEDICAL [place] [address] [facility] INFUSION [facility] THERAPY/P INC INC ROPHYLAXI S /DX 1ST TO 1 HR TX PROC G0238 [facility] IMPRV [facility] RESP INC INC FUNCT NOT G0237 FCE-FCE 15MIN BLOOD 92062 [facility] COUNT 7 [facility] COMPLETE INC INC AUTO&AUTO DIFRNTL WBC COMPREHEN 44162 [facility] SIVE 7 [facility] METABOLIC INC INC PANEL RAD EXP G9500 [place] [facility] INDICES/E 7 MEDICAL XP TM & IMAGING NUMB ASS FLUORO IMAGES DOC RADEX 21818 [place] [facility] ESOPHAGUS 7 [facility]ICAL IMAGING ASS INJECTION J1100 JAIN JAIN [address] [place] [address] DEXAMETHO [facility] SONE SODIUM PHOSPHATE 1 MG INJECTION J1170 JAIN JAIN [address] [place] [address] HYDROMORP [facility] KURTIS UP TO 4 MG INJECTION J1650 JAIN JAIN [address] [place] [address] ENOXAPARI [facility] N SODIUM 10 MG INJECTION J0330 JAIN JAIN 7 [facility] SUCCINYLC [facility] HOLINE CHLORIDE UP TO 20 MG INJECTION J2405 JAIN JAIN 7 [facility] ONDANSETR [facility] ON HCL PER 1 MG ANES 37973 [facility] INTRAPERI 7 [place] TONE[place] ANESTHESI UPPER A ABDOMEN W/LAPS NOS INJECTION J2704 JAIN JAIN PROPOFOL 7 [facility] 10 MG [facility] INJECTION J2710 JAIN JAIN 7 [facility] NEOSTIGMI [facility] NE METHYLSUL FATE UP TO 0.5 MG INJECTION J3010 JAIN JAIN FENTANYL 7 [facility] CITRATE [facility] 0.1 MG LAPS RPR 84808 JAIN GARCIA PARAESPHG [address] [place] [address] L [facility] FUNDPLSTY W/O MESH COLLECTIO 03445 JAIN JAIN N VENOUS 7 [facility] BLOOD [facility] VENIPUNCT URE GLUCOSE 83985 JAIN JAIN QUANTITAT [address] [place] [address] SABIHA BLOOD [facility] XCPT REAGENT STRIP HEMOGLOBI 50175 JAIN JAIN N [address] [place] [address] GLYCOSYLA [facility] LANEY A1C BLOOD 32090 JAIN JAIN COUNT 7 [facility] COMPLETE [facility] AUTOMATED ECG 49359 JAIN JAIN ROUTINE 7 [facility] ECG [facility] W/LEAST 12 LDS TRCG ONLY W/O I&R ECG 39673 JAIN [place] ROUTINE 7 [facility] ECG MEDICAL W/LEAST GROUP 12 LDS I&R ONLY ECG 81840 [facility] JR ROUTINE 6 [facility] W/LEAST P 12 LDS I&R ONLY ECG 39779 [facility] ROUTINE 6 [facility] ECG INC INC W/LEAST 12 LDS TRCG ONLY W/O [place] [address] [facility] INFUSION 6 [facility] THERAPY/P INC INC ROPHYLAXI S /DX 1ST TO 1 HR RADEX 58428 [facility] ABDOMEN 6 MEDICAL MEDICAL COMPL IMAGING IMAGING W/DCBTS&/ ASS ASS ERC VIEWS THERAPEUT 17410 [facility] IC 6 [facility]OS[facility] INJECTION INC INC IV PUSH EACH NEW DRUG RADIOLOGI 08939 [facility] C EXAM 6 MEDICAL MEDICAL CHEST 2 IMAGING IMAGING VIEWS ASS ASS FRONTAL&[place] [address] [facility] LIPASE 6 [facility] INC INC BLOOD 37706 [facility] COUNT 6 [facility] COMPLETE INC INC AUTO&[place] [address] [facility] AMYLASE 6 [facility] INC COMPREHEN 95424 [facility] SIVE 6 [facility] [facility] METABOLIC INC INC PANEL BLOOD 29208 [place] OCCULT 6 [facility] PEROXIDAS INTERNAL E ACTV MED QUAL FECES 1 DETER GLUC BLD 96720 [place] GLUC MNTR 6 [facility] DEV INC [place] [address] [place] HEAD/BRAI 6 MEDICAL N W/O IMAGING CONTRAST ASS MATERIAL THERAPEUT 30311 [place] IC 6 [facility] PROPHYLAC INC INC TIC/DX INJECTION SUBQ/IM RADIOLOGI 34489 [place] C 6 [facility] EXAMINATI INC INC ON PELVIS 1/2 VIEWS RADEX 76215 [place] SPINE 6 [facility] LUMBOSACR INC INC AL MINIMUM 4 VIEWS RADEX 28400 [place] SACRUM & 6 [facility] COCCYX INC INC MINIMUM 2 VIEWS URINE 58435 [place] 6 [facility] TEST INC INC [place] [address] [place] STREPTOCO 6 [facility] CCUS INC INC GROUP A BLOOD 07015 [place] COUNT 6 [facility] COMPLETE INC INC AUTO&AUTO DIFRNTL WBC CUL BACT 83462 [place] XCPT 6 [facility] URINE INC INC BLOOD/STO OL AEROBIC ISOL RADIOLOGI 01726 [facility] HAR[facility] C EXAM 6 MEDICAL ADRIANNA CHEST 2 IMAGING VIEWS ASS FRONTAL&L ATERAL RADEX 01821 [place] SINUSES 6 [facility] PARANASAL INC INC COMPL MINIMUM 3 VIEWS IAADI 18786 [place] Z[place] INFLUENZA 6 [facility] B VIRUS INC IAADI 66399 [place] INFFLUENZ 6 [facility] A A VIRUS INC INC DECALCIFI 65838 [facility], [facility]ICKLESIM CATION 6 [facility] ER [facility] [place] [address] [facility], PICKLESIM SURG 6 [facility] ER [facility] PATHOLOGY GROSS&BRYCE ROSCOPIC EXAM ANESTHESI 99432 [facility] FEEBACK A NOSE & 6 ANESTH ACCESSORY OF THE SINUSES BLUE NOS ECG 43614 [place] ROUTINE 6 [facility] ECG INC INC W/LEAST 12 LDS TRCG ONLY W/O I&R ECG 45937 [place] MAT[place] ROUTINE 6 [facility] W/LEAST P 12 LDS I&R ONLY BLOOD 83071 [place] COUNT 6 [facility] COMPLETE INC INC AUTO&AUTO DIFRNTL WBC COMPREHEN 54751 [place] SIVE 6 [facility] METABOLIC INC INC PANEL COLLECTIO 12265 [place] N VENOUS 6 [facility] BLOOD INC INC VENIPUNCT URE ANTIBODY 57091 [place] HERPES 6 [facility] SMPLX INC INC TYPE 1 ANTIBODY 18259 [place] VIRUS NOT 6 [facility] [place] [address] [place] MAXILLOFA 6 [facility] CIAL W/[place] [address] [place] CERVICAL 6 [facility] SPINE W/[place] [address] [facility] BEINEKE HEAD/BRAI 6 MEDICAL N W/O IMAGING CONTRAST ASS MATERIAL URINE 96457 [place] 6 [facility] TEST INC INC VISUAL COLOR CMPRSN METHS COMPRE 15606 MAEGAN ISSA AUDIOMETR 6 JARON JARON Y THRESHOLD EVAL SP RECOGNIJ TYMPANOME 67602 MAEGAN ISSA TRY 6 JARON JARON DISTORT 24820 MAEGAN ISSA PRODUCT 6 JARON JARON EVOKED OTOACOUST IC EMISNS LIMITD PULMONARY 02266 [place] NO[place] STRESS 6 MEDICAL TESTING SERV SIMPLE FOUNDATIO N GAS [address]11 [place] DILUT/WAS 6 MEDICAL MEDICAL HOUT LUNG SERV SERV VOL W/WO FOUNDATIO FOUNDAT[place] DISTRIB N N VENT&[place] [address] [place] DIFFUSING 6 MEDICAL CAPACITY SERV FOUNDATIO N ELIG CLIN G8427 STAMPING RODRIGUEZ TRI ATTSTS 6 GROUND DOC M REC FAMILY OBTD CLINI UPD/REV PT MEDS ECG 01011 [place] ROUTINE 6 [facility] W/LEAST P 12 LDS I&R ONLY IM ADM 75976 [facility] PRQ ID 6 [facility] SUBQ/IM HLTH DEPT HLTH DEPT NJXS 1 JAZZ JAZZ VACCINE TDAP 91945 [facility] VACCINE 7 6 [facility] YRS/> IM HLTH DEPT TH DEPT JAZZ JAZZ COLLECTIO 95799 [place] N VENOUS 6 [facility] BLOOD INC INC VENIPUNCT URE BLOOD 12813 [place] COUNT 6 [facility] COMPLETE INC INC AUTO&AUTO DIFRNTL WBC SYPHILIS 35389 [facility] TEST 6 DISTRICT DISTRICT NON-TREPO TH DEPT TH DEPT [facility] ANTIBODY QUAL BLOOD 50953 [place] OCCULT 6 [facility] PEROXIDAS INC INC E ACTV QUAL FECES 1-3 SPEC IM ADM 55589 [facility] PRQ ID 6 DISTRICT DISTRICT SUBQ/IM HLTH DEPT TH DEPT NJXS EA JAZZ JAZZ VACCINE SKIN TEST 67896 [facility] 6 [facility] TU[facility] TH DEPT HLTH DEPT SIS JAZZ JAZZ INTRADERM AL XTRNL ECG 25798 [place] MAT[place] 6 [facility] S RHYTHM P W/I&R UP TO 48 HRS PROF SVCS 89285 [facility] [place] MAR ALLG 6 [facility] IMMNTX X OF [place] W/PRV CO ALLGIC XTRCS NJXS BLOOD 06329 [place] COUNT 6 [facility] COMPLETE INC INC AUTO&AUTO DIFRNTL WBC ANTINUCLE 02549 [place] AR 6 [facility] ANTIBODIE INC INC S SANNA SPMTRY 73469 ALLER[facility] MAR W/VC 6 [facility] EXPIR[facility] [place] Y ABHI CO W/WO MXML VOL VNTJ ECG 04380 [place] ROUTINE 6 [facility] W/LEAST P 12 LDS I&R ONLY BLOOD 70300 [place] COUNT 6 [facility] RETICULOC INC INC YTE AUTOMATED NITRIC 42366 [facility] MAR OXIDE 6 [facility] [place] GAS CO DETERMINA TION GROUND A0425 [facility] MILEAGE 6 AMBULANCE PATY PER SERVICE STATUTE MILE AMBULANCE A0429 [facility] 6 AMBULANCE PATY BLS SERVICE EMERGENCY TRANSPORT SEDIMENTA 48544 [place] TION RATE 6 [facility] RBC INC INC NON-AUTOM ATED RHEUMATOI 63671 [place] Morillo FACTOR 6 [facility] QUANTITAT INC INC SABIHA SEDIMENTA 71454 [place] TION RATE 6 [facility] RBC INC INC NON-AUTOM ATED BLOOD 39046 [place] COUNT 6 [facility] RETICULOC INC INC YTE AUTOMATED COLLECTIO 01583 [place] Gutierrez VENOUS 6 [facility] BLOOD INC INC VENIPUNCT URE TECHNETIU A9503 [place] Montenegro TC-99M 6 [facility] MEDRONATE INC INC DX UP TO 30 MCI BONE 73501 [place] &/JOINT 6 [facility] IMAGING INC INC WHOLE BODY BASIC 54760 [place] METABOLIC 6 [facility] PANEL INC INC CALCIUM TOTAL BLOOD 83271 [place] COUNT 6 [facility] COMPLETE INC INC AUTO&AUTO DIFRNTL WBC RADIOLOGI 42776 [facility] C EXAM 6 MEDICAL MEDICAL CHEST 2 IMAGING IMAGING VIEWS ASS ASS FRONTAL&L ATERAL ANES 30813 [facility] LOWER 6 ANESTHESI INTESTINE A GROUP PS ENDOSCOPY DISTAL DUODENUM GONADOTRO 18653 [place] PIN 6 [facility] FOLLICLE [place] [address] [place] THYROXINE 6 [facility] TOTAL INC INC COLLECTIO 19860 [place] N VENOUS 6 [facility] [place] [address] [place] THYROID 6 [facility] STIMULATI INC INC NG HORMONE TSH THYROID 63313 [place] HORM 6 [facility] UPTK/THYR INC INC OID HORMONE BINDING RATIO GONADOTRO 19302 [place] PIN 6 [facility] LUTEINIZI INC INC NG HORMONE ECG 22867 [place] ROUTINE 6 [facility] W/LEAST P 12 LDS I&R ONLY GROUND A0425 [facility] MILEAGE 6 AMBULANCE KILO PER SERVICE STATUTE MILE RADIOLOGI 99198 [facility] C 6 MEDICAL MEDICAL EXAMINATI IMAGING IMAGING ON CHEST ASS ASS SINGLE VIEW FRONTAL AMB A0427 [facility] SERVICE 6 AMBULANCE KILO ALS SERVICE EMERGENCY TRANSPORT LEVEL 1 PREPJ& 50958 [facility] MAR ALLERGEN 6 PARTNERS IMMUNOTHE OF TRE PEREZ CO 1/[place] [address] [place] INFUSION 6 [facility] THERAPY INC INC PROPHYLAX IS/[place] [address] [place] HEAD/BRAI 6 [facility] N W/[place] [address] [place] TROPONIN 6 [facility] QUANTITAT INC INC SABIHA CREATINE 14723 [place] KINASE MB 6 [facility] FRACTION INC INC ONLY COMPREHEN 26567 [place] SIVE 6 [facility] METABOLIC INC INC PANEL ECG 92765 [place] GIOVANI ROUTINE 6 [facility] W/LEAST P 12 LDS I&[place] [address] [place] INFUSION 6 [facility] THERAPY/P INC INC ROPHYLAXI S /DX 1ST TO 1 HR ECG 39844 [place] ROUTINE 6 [facility] ECG INC INC W/LEAST 12 LDS TRCG ONLY W/O I&[place] [address] [place] CERVICAL 6 [facility] SPINE W/O INC INC CONTRAST MATERIAL CREATINE 14123 [place] KINASE 6 [facility] TOTAL INC INC BLOOD 82533 [place] COUNT 6 [facility] COMPLETE INC INC AUTO&AUTO DIFRNTL WBC RADIOLOGI 91266 [place] C 6 [facility] EXAMINATI INC INC ON KNEE 3 VIEWS PERCUTANE 94534 ALLER[facility] MAR OUS TESTS 6 [facility] [place] W/ALLERGE CO LEO EXTRACTS INTRACUTA 58258 ALLER[facility] MAR NEOUS 6 PART[facility]ERS TESTS OF [place] W/ALLERGE CO LEO EXTRACTS SPMTRY 41823 [facility] MAR W/VC 6 PART[facility]ERS EXP[facility] [place] Y ABHI CO W/WO MXML VOL VNTJ SPACR A4627 [facility] KRASNOPOL BAG/RESRV [address] [facility] OR W/WO INC MASK W/METRD DOSE INHAL NITRIC 40247 [facility]ER[facility] MAR OXIDE 6 [facility] [place] [address] [facility] KAM TRANSVAGI 6 PHYSICIAN MEAGAN NAL S GROUP ECG 01623 [place] CHVAEZ JR ROUTINE 6 [facility] W/LEAST P 12 LDS I&R ONLY IADNA 57597 [place] CHLAMYDIA 6 [facility] INC INC TRACHOMAT IS AMPLIFIED PROBE TQ IADNA 96257 [place] NEISSERIA 6 [facility] INC INC GONORRHOE [place] [address] [facility] ANDREWS TRACT 6 RADIOLOGY RHO UPPER W/WO DELAYED IMAGES W/KUB ECG 00388 [place] ROUTINE 6 [facility] W/LEAST P 12 LDS I&R ONLY RADIOLOGI 87737 [place] C[place] ALL C 6 MEDICAL EXAMINATI IMAGING ON CHEST ASS SINGLE VIEW FRONTAL ELECTROEN 97367 CINTHYA RODRIGUEZ SHABANA CEPHALOGR 6 N AM W/REC NEUROLOGY AWAKE&ASL EEP ECG 20806 [place] ROUTINE 6 [facility] W/LEAST P 12 LDS I&[place] [address] [facility] ABDOMEN & 6 MEDICAL MEDICAL PELVIS IMAGING IMAGING W/CONTRAS ASS ASS T MATERIAL ELECTROEN 07592 [facility] CEPHALOGR 6 N N AM W/REC COMMUNTIY COMMUNTIY AWAKE&[facility]OSPITA HOSPITA WSY RADEX 92874 [facility] ALL SPINE 6 MEDICAL THORACIC IMAGING 2 VIEWS ASS ECG 10747 [place] CHAVEZ JR ROUTINE 6 [facility] W/LEAST P 12 LDS I&R ONLY RADIOLOGI 01392 [place] C[place] ALL C 6 MEDICAL EXAMINATI IMAGING ON CHEST ASS SINGLE VIEW FRONTAL COMPUTER- 17586 [place] HAR[place] AIDED 6 MEDICAL ADRIANNA DETECTION IMAGING ASS SCREENING MAMMOGRAP HY SCREENING G0202 [place] HAR[place]EN 6 MEDICAL ADRIANNA MAMMOGRAP IMAGING HY WILBERT ASS INCL CAD WHEN PERFORMD COMPREHEN 85906 [place] SIVE 6 [facility] [address] [place] LACTATE 6 [place] [address] [place] TROPONIN 6 [facility] QUANTITAT INC INC SABIHA URNLS DIP 98906 [place] [facility] 6 [facility] STICK/TAB INC INC LET REAGENT AUTO MICROSCOP Y ECG 97423 [place] CHAVEZ JR ROUTINE 6 [facility] W/LEAST P 12 LDS I&R ONLY ECG 90621 [place] ROUTINE 6 [facility] ECG INC INC W/LEAST 12 LDS TRCG ONLY W/[place] I&[place] [address] [place] INFUSION 6 [facility] THERAPY/P INC INC ROPHYLAXI S /DX 1ST TO 1 HR RADEX ABD 51684 SEJAL CERRATO ALL COMPL 6 MEDICAL AQT ABD IMAGING W/S/E/D ASS VIEWS 1 VIEW CH BLOOD 90363 [place] COUNT 6 [facility] COMPLETE INC INC AUTO&[place] [address] [place] INFUSION 6 [facility] THERAPY/P INC INC ROPHYLAXI S /DX 1ST TO 1 HR ECG 36335 [place] ROUTINE 6 [facility] ECG INC INC W/LEAST 12 LDS TRCG ONLY W/O I&R RADIOLOGI 85025 SEJAL CERRATO ALL C EXAM 6 MEDICAL CHEST 2 IMAGING VIEWS ASS FRONTAL&L ATERAL ECG 19470 [place] ROUTINE 6 [facility] W/LEAST P 12 LDS I&R ONLY BLOOD 52927 [place] COUNT 6 [facility] COMPLETE INC INC AUTO&AUTO DIFRNTL WBC CULTURE 58049 [place] BACTERIAL 6 [facility] INC INC QUANTTATI VE COLONY COUNT URINE CREATINE 62277 [place] KINASE 6 [facility] TOTAL INC INC URNLS DIP 30732 [place] 6 [facility] STICK/TAB INC INC [place] [address] [place] TROPONIN 6 [facility] QUANTITAT INC INC SABIHA CREATINE 04512 [place] KINASE MB 6 [facility] FRACTION INC INC ONLY URINE 77796 [place] 6 [facility] TEST INC INC VISUAL COLOR CMPRSN METHS COMPREHEN 48457 [place] SIVE 6 [facility] METABOLIC INC INC PANEL AMB A0427 [facility] SERVICE 6 AMBULANCE AMBULANCE ALS SERVICE SERVICE EMERGENCY TRANSPORT LEVEL 1 GROUND A0425 [facility] MILEAGE 6 AMBULANCE AMBULANCE PER SERVICE SERVICE STATUTE MILE RADEX ABD 97077 SEJAL CERRATO ALL COMPL 6 MEDICAL AQT ABD IMAGING W/S/E/D ASS VIEWS 1 VIEW CH BLOOD 49541 [facility] COUNT 6 N N COMPLETE COMMUNTIY COMMUNTIY AUTO&AUT[place] [address] [facility] INFUSION 6 N N HYDRATION COMMUNTIY COMMUNTIY EACH HOSPITA HOSPITA ADDITIONA L HOUR THER 29586 [facility] PROPH/DX 6 N N NJX IV COMMUNTIY COMMUNTIY PUSH HOSPITA HOSPITA SINGLE/1S T SBST/DRUG COMPREHEN 43598 [facility] SIVE 6 N N METABOLIC COMMUNTIY COMMUNTIY PANEL HOSPITA HOSPITA COLLECTIO 91521 [facility] N VENOUS 6 N N BLOOD COMMUNTIY COMMUNTIY VENIPUNCT HOSPITA HOSPITA URE MRI BRAIN 66806 [facility] BRAIN 6 N N STEM W/O COMMUNTIY COMMUNTI[place] [address] SEJAL CERRATO ALL HEAD/BRAI 6 MEDICAL N W/O IMAGING CONTRAST ASS MATERIAL RADIOLOGI 07481 SEJ[facility] CERRAT[facility] ALL C 6 MEDICAL EXAMINATI IMAGING ON CHEST ASS SINGLE VIEW FRONTAL GROUND A0425 [facility] MILEAGE 6 AMBULANCE AMBULANCE PER SERVICE SERVICE STATUTE MILE AMB A0427 [facility] SERVICE 6 AMBULANCE AMBULANCE ALS SERVICE SERVICE [place] [address] SEJAL CERRATO ALL ABDOMEN & 6 MEDICAL PELVIS IMAGING W/O ASS CONTRAST MATERIAL ECG 98798 [place] ROUTINE 6 [facility] W/LEAST P 12 LDS I&R ONLY THERAPEUT 10020 [facility] IC PX 1/> 6 AREAS EACH 15 MIN EXERCISES CHIROPRAC 42469 [facility] TIC 6 MANIPULAT SABIHA TX SPINAL 3-4 REGIONS MANUAL 29590 [facility] THERAPY 6 TQS 1/> REGIONS EACH 15 MINUTES CHIROPRAC 53376 [facility] TIC 6 MANIPLTV TX EXTRASPIN AL 1/> REGION MANUAL 34926 [facility] THERAPY 6 TQS 1/> REGIONS EACH 15 MINUTES THERAPEUT 32088 [facility] IC PX 1/> 6 AREAS EACH 15 MIN EXERCISES THERAPEUT 98158 [facility]UK[facility] IC PX 1/> 6 MATTI MATTI AREAS EACH 15 MIN EXERCISES CHIROPRAC 89617 [place] [place] TIC 6 MATTI MATTI MANIPULAT SABIHA TX SPINAL 3-4 REGIONS MANUAL 16830 [facility] THERAPY 6 MATTI MATTI TQS 1/> REGIONS EACH 15 MINUTES CHIROPRAC 79374 [facility] TIC 6 MATTI MATTI MANIPLTV TX EXTRASPIN AL 1/> REGION COMPREHEN 89180 [facility] SIVE 6 DIAGNOSTI DIAGNOSTI [place] [address] SCALF LEI SCALF LEI SURG 6 PATHOLOGY GROSS&BRYCE ROSCOPIC EXAM IMHISTOCH 50739 SCALF LEI SCALF LEI EM/CYTCHM 6 1ST ANTIBODY STAIN PROCEDURE BX SKIN 24480 SCALF LEI SCALF LEI SUBCUTANE 6 OUS&/MUCO US MEMBRANE 1 LESION ECG 97332 [facility] ROUTINE 6 [facility] W/LEAST P 12 LDS I&R ONLY ECG 58998 JAINBerenice ANDRES ROUTINE 6 [facility] IV [facility] ECG MEDICAL W/LEAST GROUP 12 LDS I&R ONLY GONADOTRO 25634 JAIN JAIN PIN 6 [facility] CHORIONIC [facility] QUANTITAT SABIHA INJECTION J1644 JAIN JAIN HEPARIN 6 [facility] SODIUM [facility] PER 1000 UNITS BLOOD 89176 JAIN JAIN COUNT 6 [facility] COMPLETE [facility] AUTOMATED LOCM Q9967 JAIN JAIN [phone] [facility]ALTH HEALTH MG/ML [facility] IODINE CONCENTRA TION PER ML BASIC 62477 JAIN JAIN METABOLIC 6 [facility] PANEL [facility] CALCIUM TOTAL LIPID 71212 JAIN JAIN PANEL 6 [facility] COLLECTIO 53937 JAIN JAIN N VENOUS 6 [facility] BLOOD [facility] VENIPUNCT URE HEMOGLOBI 52525 JAIN JAIN N 6 [facility] GLYCOSYLA [facility] LANEY A1C INJECTION J3010 JAIN JAIN FENTANYL 6 [facility] CITRATE [facility] 0.1 MG CATH PLMT 01364 JAIN ANDRES L HRT & 6 [employer] MEDICAL W/NJX & GROUP ANGIO IMG S&I MYOCARDIA 28559 [place] Ortega SPECT 6 [facility] MULTIPLE INC INC STUDIES CV STRS 78708 [place] TST 6 [facility]&/OR [facility] RX CONT P P ECG I&R ONLY TECHNETIU A9500 [place] Montenegro TC-99M 6 [facility] SESTAMIBI INC INC DX PER STUDY DOSE CV STRS 46678 [place] TST 6 [facility]/OR [facility] RX CONT P P ECG W/O I&R CV STRS 26495 [place] TST 6 [facility] XERS&/OR INC INC RX CONT ECG TRCG ONLY ECHO 19642 [place] TTHRC R-T 6 [facility] 2D INC INC W/WOM-MOD E COMPL SPEC&COLR D ECG 07464 [place] CHAVEZ JR ROUTINE [address] [facility] W/LEAST P 12 LDS I&R ONLY RADIOLOGI 07170 [place] C[place] ALL C 6 MEDICAL EXAMINATI IMAGING ON CHEST ASS SINGLE VIEW FRONTAL OPHTH 80436 [facility] 6 XM&EVAL COMPRHNSV ESTAB PT 1/> [place] [address] LAB [facility] LAB [facility] ZINC 6 MAI [facility]I [facility] HOLDINGS BLOOD 44009 [facility] COUNT 6 MAI MAI COMPLETE [facility] HOLDINGS AUTO&[place] [address] [facility] PARATHORM 6 [facility] [place] [address] LAB [facility] LAB MAHESH PHOSPHORU 6 MAI MAI [place] [address] LAB [facility] LAB MA[facility]ESH MAGNESIUM 6 MAI MAI [facility] HOLDINGS ORGANIC 61162 LAB [facility] LAB MAHESH ACID 1 6 MAI MAI QUANTITAT [place] [address] LAB [facility] LAB MAHESH FERRITIN 6 MAI MAI HOLDINGS HOLDINGS 25 62176 [facility] HYDROXY 6 MAI MAI INCLUDES HOLDINGS [place] [address] LAB [facility] LAB MA[facility]ESH THIAMINE- 6 MAI MAI VITAMIN HOLDINGS HOLDINGS B-1 [place] [address] LAB MA[facility] LAB MA[facility]ESH IRON 6 [place] [address] LAB [facility] LAB MAHESH TOCOPHERO 6 MAI MAI L ALPHA [place] [address] LAB MA[facility] LAB MAHESH VITAMIN A 6 MAI MAI [facility]INGS HOLDINGS PREALBUMI 72563 LAB MAHESH LAB MAHESH N 6 [place] [address] LAB MAHESH LAB MAHESH FOLIC 6 MAI MAI ACID HOLDINGS HOLDINGS SERUM COMPREHEN 36268 LAB [facility] LAB MAHESH SIVE 6 MAI MAI METABOLIC HOLDINGS HOLDINGS PANEL COMPREHEN 48781 [place] [facility] SIVE 6 [facility] METABOLIC INC INC PANEL IRON 58827 [place] BINDING 6 [facility] [place] [address] [facility] THYROID 6 [facility] STIMULATI INC INC NG HORMONE TSH COLLECTIO 75381 [facility] N VENOUS 6 [facility] [place] [address] [facility] IRON 6 [facility] INC INC 25 37702 [facility] HYDROXY [facility] [place]CLUD[place] [address] [facility] VAUGHN FERRITIN 6 [facility] TERA INC BLOOD 14771 [facility] COUNT 6 [facility] COMPLETE INC INC AUTO&AUTO DIFRNTL WBC IADNA 78788 [facility] TRACHOMAT IS AMPLIFIED PROBE TQ IADNA 76415 [facility] PAPILLOMA VIRUS HIGH-RISK TYPES IADNA 64567 [facility] NEISSER[facility] GONORRHOE AE AMPLIFIED PROBE TQ CYTP 44446 [facility] CERVICAL/ [facility] VAGINAL REQ INTERP PHYSICIAN CYTP C/V 81973 [facility], [facility] AUTO THIN [facility] LYR [place] [address] [facility] THYROID 6 [facility] STIMULATI INC INC NG HORMONE TSH COLLECTIO 48001 [facility] N VENOUS 6 [facility] BLOOD INC INC VENIPUNCT URE BASIC 50342 [facility] METABOLIC 6 [facility] PANEL INC INC CALCIUM TOTAL COMPREHEN 43541 [facility] SIVE 6 [facility] METABOLIC INC INC PANEL COLLECTIO 97573 [facility] N VENOUS 6 [facility] [place] [address] [facility] IRON 6 [facility] INC INC PREALBUMI 60803 [facility] N 6 [facility] INC INC BLOOD 65982 [facility] COUNT 6 [facility] COMPLETE INC INC AUTO&[place] [address] [facility] [facility] FERRIT[facility] INC INC ORGANIC 63189 [facility] ACID 1 6 [facility] [place] [address] [facility] THIAMINE- 6 [facility] VITAMIN [place] B-1 [place] [address] LAB MA[facility] LAB MA[facility]ESH THIAMINE- 5 [facility] VITAMIN [facility] HOLDINGS B-1 ORGANIC 01891 LAB MA[facility] LAB [facility]ID [facility] [place] [address] LAB [facility] FERRITIN [facility] PREALBUMI 13006 [facility] LAB MAHESH N 5 [place] [address] LAB MAHESH LAB MAHESH IRON 5 [place] [address] LAB MA[facility] LAB MA[facility]ESH FOLIC 5 [facility] ACID HOLDINGS HOLDINGS SERUM GENERAL 97008 LAB MA[facility] LAB MAHESH HEALTH 5 MAI MAI PANEL HOLDINGS HOLDINGS DESTRUCTI 91494 ATKINS ATKINS ON BENIGN 5 TRA TRA LESIONS UP TO 14 BIOPSY 76734 ATKINS ATKINS SKIN 5 TRA TRA SUBQ&/MUC OUS MEMBRANE EA ADDL LESN DESTRUCTI 35920 ATKINS ATKINS ON 5 TRA TRA PREMALIGN ANT LESION 1ST BX SKIN 68908 ATKINS ATKINS SUBCUTANE 5 TRA TRA OUS&/MUCO [place] MEMBR[place] 1 [place] L[place] [address] SCALF LEI SCALF LEI SURG 5 PATHOLOGY GROSS&[place] [address] LAB MAHESH LAB MAHESH THIAMINE- 5 [facility] VITAMIN HOLDINGS HOLDINGS B-1 ORGANIC 92508 LAB MA[facility]ESH LAB MA[facility] ACID 1 5 [facility] QUANTITAT HOLDINGS HOLDINGS SABIHA BLOOD 54658 LAB MA[facility] LAB MAHESH COUNT 5 [facility] COMPLETE HOLDINGS HOLDINGS AUTO&AUTO DIFRNTL WBC PREALBUMI 27720 LAB MA[facility] LAB MAHESH N 5 [facility]INGS HOLDINGS COMPREHEN 45377 LAB [facility] LAB MAHESH SIVE 5 [facility] METABOLIC [place] [address] LAB MAHESH LAB MAHESH IRON 5 [place] [address] LAB MAHESH LAB MA[facility]ESH FOLIC 5 [facility] ACID HOLDINGS HOLDINGS SERUM COMPUTER- 56077 [facility] AIDED 5 [facility] DETECTION IMAGING ASS SCREENING MAMMOGRAP HY SCREENING G0202 [facility] 5 MEDICAL CARMEN MAMMOGRAP IMAGING HY WILBERT ASS INCL CAD WHEN PERFORMD COMPREHEN 25463 [facility] METABOLIC INC INC PANEL LIPID 13031 [facility] PANEL 5 [place] [address] [facility] GLUTAMYLT [facility] RASE INC INC GAMMA HEMOGLOBI 36774 [facility] N [facility] GLYCOSYLA INC INC LANEY A1C COLLECTIO 51529 [facility] VENOUS 5 [facility] [place] [address] [facility] THYROID 5 [facility] STIMULATI INC INC NG HORMONE TSH 25 81102 [facility] HYDROXY [facility] INCLUDES INC INC FRACTIONS IF PERFORMED BLOOD 81452 [facility] COUNT 5 [facility] COMPLETE INC INC AUTO&AUTO DIFRNTL WBC CYANOCOBA 08383 [facility] LYUBOV 5 [facility] VITAMIN INC INC B-12 OPHTH 56899 SCIFR SCIFR MEDICAL 5 ANG ANG XM&EVAL COMPRHNSV ESTAB PT 1/> [place] [address] [facility] ABDOMEN & 5 N N PELVIS COMMUNTIY COMMUNTIY [place] [address] [facility] ABDOMEN & 5 [facility] PELVIS INC INC W/CONTRAS T MATERIAL BLOOD 31694 [facility] COUNT 5 [facility] COMPLETE INC INC AUTO&AUTO DIFRNTL WBC CULTURE 21149 [facility] BACTERIAL 5 [facility] INC INC QU[place]TT[place] [address] [facility] LIPASE 5 [facility] INC INC URNLS DIP 67677 [facility] STICK/TAB INC INC LET REAGENT AUTO MICROSCOP Y URINE 92705 [facility] TEST INC INC [place] [address] [facility] AMYLASE 5 [facility] INC INC COMPREHEN 38246 [facility] SIVE [facility] [address] [facility] ABDOMINAL 5 N N REAL COMMUNTIY COMMUNTIY TIME HOSPITA HOSPITA W/[place] [address] [facility] AMYLASE 5 N N COMMUNTI[place] [address] [facility] FOLIC 5 N N ACID COMMUNTIY COMMUNTIY SERUM HOSPITA HOSPITA COMPREHEN 67149 [facility] SIVE 5 N N METABOLIC COMMUNTIY COMMUNTIY PANEL HOSPITA HOSPITA PREALBUMI 42154 [facility] N 5 N N COMM[place] [address] [facility] TOCOPHERO 5 N N L ALPHA COMMUNTIY COMMUNTI[place] [address] [facility] VITAMIN A 5 N N COMMUNTIY COMMUNTIY HOSPITA HOSPITA COLLECTIO 76107 [facility] N VENOUS 5 N N BLOOD COMMUNTIY COMMUNTIY [place] [address] [facility] LIPASE 5 N N COMMUNTIY [place] [address] [facility] MAGNESIUM 5 N N COMMUNTIY COMMUNTIY HOSPITA HOSPITA ORGANIC 99739 [facility] ACID 1 5 N N QUANTITAT COMMUNTIY COMMUNTI[place] [address] [facility] PARATHORM 5 N N ONE COMMUNTIY [place] [address] [facility] PHOSPHORU 5 N N S COMMUNTIY COMMUNTIY INORGANIC HOSPITA HOSPITA BLOOD 75529 [facility] COUNT 5 N N COMPLETE COMMUNTIY COMMUNTIY AUTO&AUTO [place] [address] [facility] ZINC 5 N N COMMUNTIY COMMUNTIY HOSPITA HOSPITA 25 23997 [facility] HYDROXY 5 N N INCLUDES COMMUNTIY COMMUNTIY FRACTIONS [place] [address] [facility] THIAMINE- 5 N N VITAMIN COMMUNTIY COMMUNTIY B-1 HOSPITA HOSPITA PROTHROMB 42610 [facility] IN TIME 5 N N COMMUNTIY COMMUNTIY HOSPITA HOSPITA ANTINUCLE 59000 [facility] AR 5 N N ANTIBODIE COMMUNTIY COMMUNTIY [place] [address] [facility] FERRITIN 5 N N COMMUNTIY COMMUNTIY HOSPITA HOSPITA BLOOD 40565 [facility] COUNT 5 N N COMPLETE COMMUNTIY COMMUNTIY AUTOMATED HOSPITA HOSPITA IMMUNOASS 73298 [facility] AY 5 N N ANALYTE COMMUNTIY COMMUNTIY QUAL/SEMI HOSPITA HOSPITA QUAL MULTIPLE STEP COLLECTIO 54222 [facility] N VENOUS 5 N N BLOOD COMMUNTIY COMMUNTIY [place]IP[place] [address] [facility] IRON 5 N N COMMUNTIY COMMUNTIY HOSPITA HOSPITA IRON 59180 [facility] BINDING 5 N N CAPACITY COMMUNTIY [place] [address] [facility] GAMMAGLOB 5 N N ULIN IGA COMMUNTIY COMMUNTIY IGD IGG HOSPITA HOSPITA IGM EACH ALPHA-1-A 80634 [facility] NTITRYPSI 5 N N N TOTAL COMMUNTIY COMMUNTIY HOSPITA HOSPITA COMPREHEN 81430 [facility] SIVE 5 N N METABOLIC COMMUNTIY [place] [address] [facility] RETROPERI 5 [facility] TONEAL INC INC REAL TIME W/[place] [address] [facility] RETROPERI 5 MEDICAL TONEAL IMAGING REAL TIME [place] W/[place] [address] [facility] HEPATITIS 5 N N B COMMUNTIY COMMUNTIY SURFACE HOSPITA HOSPITA ANTIGEN HEPATITIS 43132 [facility] B CORE 5 N N ANTIBODY COMMUNTIY COMMUNTIY HBCAB HOSPITA HOSPITA TOTAL HEPATITIS 95573 [facility] B SURF 5 N N ANTIBODY COMMUNTIY COMMUNTIY HBSAB HOSPITA HOSPITA HEPATITIS 32177 [facility] C 5 N N [place] [address] [facility] ABDOMEN & 5 MEDICAL PELVIS IMAGING W/O ASS CONTRAST MATERIAL DUP-SCAN 16847 [facility] [place] ANDREWS XTR VEINS 5 RADIOLOGY RHO COMPLETE BILATERAL STUDY COLLECTIO 38317 [facility] N VENOUS 5 N N BLOOD COMMUNTIY COMMUNTIY VENIPUNCT HOSPITA HOSPITA URE COMPREHEN 84347 [facility] SIVE 5 N N METABOLIC COMMUNTIY COMMUNTI[place] [address] [facility] AMYLASE 5 N N COMMUNTI[place] [address] [facility] LIPASE 5 N N COMMUNTIY COMMUNTIY HOSPITA HOSPITA BLOOD 04016 [facility] COUNT 5 N N COMPLETE COMMUNTIY COMMUNTIY AUTO&AUTO HOSPITA [place] [address] [facility] [place] SCALF HUBER TRACT 5 RADIOLOGY UPPER W/WO DELAYED IMAGES W/KUB LAPS 19093 BLUEGRASS SANCHEZ MICHELLE GSTRC 5 RSTRICTIV BARIATRIC PX SURGICAL LONGITUDI NAL GASTRECTO MY ANES IPR 68496 [facility] ANT UPPER 5 ANESTHESI ABDOMEN A GROUP LAPS PS GASTRIC RSTCV MO LAPAROSCO 4382 [facility] PIC 5 N N VERTICAL COMMUNTIY COMMUNTIY SLEEVE HOSPITA HOSPITA GASTRECTO MY OTHER 4513 [facility] ENDOSCOPY 5 N N OF SMALL COMMUNTIY COMMUNTIY HOSPITA HOSPITA INTESTINE APPL 88880 [facility] MODALITY 5 [facility] 1/> AREAS INC INC ELEC STIMJ UNATTENDE D APPL 47229 [facility] MODALITY 5 [facility] 1/> AREAS INC INC ULTRASOUN D EA 15 MIN APPLICATI 18656 [facility] ON 5 [facility] MODALITY INC INC 1/> AREAS HOT/COLD PACKS COMPREHEN 26480 [facility] SIVE 5 N N METABOLIC COMMUNTIY COMMUNTIY PANEL HOSPITA HOSPITA COLLECTIO 60107 [facility] N VENOUS 5 N N BLOOD COMMUNTIY COMMUNTIY VENIPUNCT HOSPITA HOSPITA URE DUP-SCAN 99242 SEJAL CANSECO XTR VEINS 5 MEDICAL ADRIANNA COMPLETE IMAGING ASS BILATERAL STUDY GONADOTRO 67275 [facility] PIN 5 N N CHORIONIC COMMUNTIY COMMUNTIY HOSPITA HOSPITA QUALITATI VE BLOOD 16150 [facility] COUNT 5 N N COMPLETE COMMUNTIY COMMUNTIY AUTOMATED HOSPITA HOSPITA APPL 86694 [facility] MODALITY 5 [facility] 1/> AREAS INC INC ELEC STIMJ UNATTENDE D APPLICATI 85068 [facility] ON 5 [facility] MODALITY INC INC 1/> AREAS HOT/COLD PACKS APPL 57082 [facility] MODALITY 5 [facility] 1/> AREAS INC INC ULTRASOUN D EA 15 MIN THERAPEUT 66044 [facility] IC PX 1/> 5 [facility] AREAS INC INC EACH 15 MIN EXERCISES CUL BACT 87058 [facility] XCPT 5 [facility] URINE INC INC BLOOD/STO OL AEROBIC ISOL SUSCEPTIB 15849 [facility] LTY STDY 5 [facility] ANTIMICRB INC INC IAL MICRO/AGA R DILUTJ THERAPEUT 63873 [facility] IC PX 1/> 5 [facility] AREAS INC INC EACH 15 MIN EXERCISES APPL 91996 [facility] MODALITY 5 [facility] 1/> AREAS INC INC ULTRASOUN D EA 15 MIN APPLICATI 72476 [facility] [facility] ON 5 [facility] MODALITY INC INC 1/> AREAS HOT/COLD PACKS APPL 18559 [facility] MODALITY 5 [facility] 1/> AREAS INC INC ELEC STIMJ UNATTENDE D APPL 72931 [facility] MODALITY 5 [facility] 1/> AREAS INC INC ELEC STIMJ UNATTENDE D APPLICATI 55945 [facility] ON 5 [facility] MODALITY INC INC 1/> AREAS HOT/COLD PACKS APPL 17062 [facility] [facility] MODALITY 5 [facility] 1/> AREAS INC INC ULTRASOUN D EA 15 MIN APPL 25862 [facility] MODALITY 5 [facility] 1/> AREAS INC INC IONTOPHOR ESIS EA 15 MIN THERAPEUT 64412 [facility] IC PX 1/> 5 [facility] AREAS INC INC EACH 15 MIN EXERCISES APPL 79187 [facility] [facility] MODALITY 5 [facility] 1/> AREAS INC INC IONTOPHOR ESIS EA 15 MIN APPL 60661 [facility] MODALITY 5 [facility] 1/> AREAS INC INC ULTRASOUN D EA 15 MIN APPLICATI 94512 [facility] T[place] ON 5 [facility] MODALITY INC INC 1/> AREAS HOT/COLD PACKS APPL 00134 [facility] [facility] MODALITY 5 [facility] 1/> AREAS INC INC ELEC STIMJ UNATTENDE D COMPREHEN 62814 [facility] SIVE 5 N N METABOLIC COMMUNTIY COMMUNTIY [place] [address] [facility] THYROXINE 5 N N TOTAL COMMUNTIY COMMUNTIY HOSPITA HOSPITA LIPID 70163 [facility] PANEL 5 N N COMMUNTIY COMMUNTIY HOSPITA HOSPITA THYROID 86241 [facility] HORM 5 N N UPTK/THYR COMMUNTIY COMMUNTIY OID HOSPITA HOSPITA HORMONE BINDING RATIO COLLECTIO 41819 [facility] N VENOUS 5 N N BLOOD COMMUNTIY COMMUNTIY VENIPUN[place] [address] [facility] THYROID 5 N N STIMULATI COMMUNTIY COMMUNTIY NG HOSPITA HOSPITA HORMONE TSH CUL 09594 [facility] PRSMPTV 5 N N PTHGNC COMMUNTIY COMMUNTIY ORGANISM HOSPITA HOSPITA SCRN W/COLONY ESTIMJ BLOOD 15409 [facility] COUNT 5 N N COMPLETE COMMUNTIY COMMUNTIY AUTOMATED HOSPITA HOSPITA RADIOLOGI 85538 [facility] C EXAM 5 N N CHEST 2 COMMUNTIY COMMUNTIY VIEWS HOSPITA HOSPITA FRONTAL&L ATERAL ECG 14617 [facility] ROUTINE 5 N N ECG COMMUNTIY COMMUNTIY W/LEAST HOSPITA HOSPITA 12 LDS TRCG ONLY W/O I&R PHYSICAL 37424 [facility] THERAPY 5 [facility] EVALUATIO INC INC N COLLECTIO 01690 [facility] N VENOUS 5 [facility] BLOOD INC INC VENIPUNCT URE FIBRIN 45609 [facility] DGRADJ 5 [facility] PRODUCTS INC INC D-DIMER QUAL/SEMI GILBERT ECG 59257 [facility] ROUTINE 5 [facility] ECG INC INC W/LEAST 12 LDS TRCG ONLY W/O I&R ECG 48653 [facility] CHAVEZ JR ROUTINE [address] [facility] W/LEAST P 12 LDS I&R ONLY RADIOLOGI 56139 [facility] C EXAM 5 [facility] CHEST 2 INC INC VIEWS FRONTAL&L ATERAL BLOOD 87240 [facility] COUNT 5 [facility] COMPLETE INC INC AUTO&[place] [address] [facility] TROPONIN 5 [facility] QUANTITAT INC INC SABIHA URNLS DIP 59519 [facility] STICK/TAB INC INC LET REAGENT AUTO MICROSCOP Y COMPREHEN 47324 [facility] SIVE 5 [facility] METABOLIC INC INC PANEL COMPREHEN 56593 [facility] SIVE 5 [facility] METABOLIC INC INC PANEL LOCM Q9967 [facility] [facility] 300-399 5 [facility] MG/ML INC INC IOD[place] [address] [facility] TROPONIN 5 [facility] QUANTITAT INC INC SABIHA BLOOD 46131 [facility] COUNT 5 [facility] COMPLETE INC INC AUTO&[place] [address] [facility] ANGIOGRAP 5 [facility] HY CHEST INC INC W/CONTRAS T/NONCONT RAST RADIOLOGI 06262 [facility] [facility] C EXAM 5 [facility] CHEST 2 INC INC VIEWS FRONTAL&L ATERAL ECG 56475 [place] GIOVANI ROUTINE 5 [facility] W/LEAST P 12 LDS I&R ONLY ECG 36344 [place] [facility] ROUTINE 5 [facility] ECG INC INC W/LEAST 12 LDS TRCG ONLY W/O I&R FIBRIN 08998 [place] [facility] DGRADJ 5 [facility] PRODUCTS INC INC D-DIMER QUAL/SEMI GILBERT RADEX 81694 [place] HARLEEN SHOULDER 4 MEDICAL COMPLETE IMAGING MINIMUM 2 ASS VIEWS REPAIR 21138 ATKINS ATKINS COMPLEX 4 TRA TRA SCALP/ARM /LEG 1.1-2.5 CM LEVEL III 61618 SCALF LEI SCALF LEI SURG 4 PATHOLOGY GROSS&BRYCE ROSCOPIC EXAM DESTRUCTI 06438 ATKINS ATKINS ON BENIGN 4 TRA [place] [address] [place] [address] [facility] CANSECO HEAD/BRAI 4 MEDICAL ADRIANNA N W/O IMAGING CONTRAST ASS MATERIAL THERAPEUT 23531 [facility] IC 4 [facility] INJECTION INC INC IV PUSH EACH NEW DRUG EGD 84328 [facility] TRANSORAL 4 N N [facility] COMMUNITY SINGLE/[place] [address] [facility], PICKLESIM SURG 4 [facility] ER JR WANDA PATHOLOGY GROSS&BRYCE ROSCOPIC EXAM ANES 78625 [facility] UPPER GI 4 ANESTHESI JOSE ANGEL ENDOSCOPY A GROUP PROXIMAL PS TO DUODENUM SPECIAL 04913 [facility], PICKLESIM STAIN 4 [facility] ER JR WANDA GROUP 1 MICROORGA NISMS I&R SPCL STN 06852 [facility], PICKLESIM 2 I&R 4 [facility] ER JR WANDA EXCPT MICROORG/ ENZYME/IM CYT SPMTRY 90103 [place] [facility] W/VC 4 [facility] EXPIRATOR INC INC Y ABHI W/WO MXML VOL VNTJ REPAIR 41753 ADVANCED SCALF LEI COMPLEX 4 DERMATOLO SCALP/ARM GY /LEG 1.1-2.5 CM LEVEL III 04808 SCALF LEI SCALF LEI SURG 4 PATHOLOGY GROSS&BRYCE ROSCOPIC EXAM EXC B9 91182 ADVANCED SCALF LEI LESION 4 DERMATOLO MRGN XCP GY SK TG S/N/H/F/G 1.1-2.0CM RADIOLOGI 54566 [facility] EXAM 4 MEDICAL ADRIANNA CHEST 2 IMAGING VIEWS ASS FRONTAL&L ATERAL REMOVAL 39937 ATKINS ATKINS SKN TAGS 4 TRA TRA 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 FIBRQ TAGS ANY AREA UPW/15 CV STRS 93888 [facility] [facility] TST 4 [facility] XERS&/OR INC INC RX CONT ECG TRCG ONLY ECHO 10096 [place] [facility] TTHRC R-T 4 [facility] 2D INC INC W/WOM-MOD E COMPL SPEC&COLR D CV STRS 12848 [place] MATUTE TST 4 [facility] RX CONT P ECG I&R ONLY RADIOLOGI 56512 [facility] C EXAM 4 MEDICAL CARMEN CHEST 2 IMAGING VIEWS ASS FRONTAL&L ATERAL ECG 25165 [place] [facility] ROUTINE 4 [facility] ECG INC INC W/LEAST 12 LDS TRCG ONLY W/O I&R BLOOD 09880 [place] [facility] COUNT 4 [facility] COMPLETE INC INC AUTO&AUTO DIFRNTL WBC ECG 40783 SCOTT CHAVEZ JR ROUTINE 4 DWI DWI ECG W/LEAST 12 LDS I&R ONLY RADIOLOGI 31056 HARLEEN HARLEEN C 4 ADRIANNA ADRIANNA EXAMINATI [place] [address] [facility] [facility] TROPONIN 4 [facility] QUANTITAT INC INC SABIHA BASIC 04841 [place] [facility] METABOLIC 4 [facility] PANEL INC INC CALCIUM TOTAL COMPREHEN 09847 [place] [facility] SIVE 4 [facility] METABOLIC INC INC PANEL CREATINE 47042 [facility] KINASE MB 4 [facility] [place] [address] [facility] [facility] TROPONIN 4 [facility] QUANTITAT INC INC SABIHA ECG 62248 ANKUR ANKUR ROUTINE 4 BRYCE BRCYE ECG W/LEAST 12 LDS I&R ONLY CREATINE 58964 [place] [facility] KINASE 4 [facility] TOTAL INC INC BLOOD 82379 [place] [facility] COUNT 4 [facility] COMPLETE INC INC AUTO&AUTO DIFRNTL WBC ECG 89169 [place] [facility] ROUTINE 4 [facility] ECG INC INC W/LEAST 12 LDS TRCG ONLY W/O I&R FIBRIN 97682 [place] [facility] DGRADJ 4 [facility] PRODUCTS INC INC D-DIMER QUAL/SEMI GILBERT RADIOLOGI 73477 CHANEL BUCHANAN D C EXAM 4 CHEST 2 VIEWS FRONTAL&L ATERAL HEMOGLOBI 46407 COMBINED COMBINED N 4 PHYSICIAN PHYSICIAN GLYCOSYLA [place] [address] COMBINED COMBINED FREE 4 PHYSICIAN PHYSICIAN THYROXINE S LA S LA LIPID 24183 COMBINED COMBINED PANEL 4 PHYSICIAN PHYSICIAN S LA S LA GENERAL 57815 COMBINED COMBINED HEALTH 4 PHYSICIAN PHYSICIAN PANEL S LA S LA SEDIMENTA 04578 COMBINED COMBINED TION RATE 4 PHYSICIAN PHYSICIAN RBC S LA S LA NON-AUTOM ATED 25 03100 COMBINED COMBINED HYDROXY 4 PHYSICIAN PHYSICIAN INCLUDES S LA S LA FRACTIONS IF PERFORMED CYANOCOBA 18546 COMBINED COMBINED LYUBOV 4 PHYSICIAN PHYSICIAN VITAMIN S LA S LA B-12 COMPUTER- 42704 [place] HARLEEN AIDED 4 MEDICAL ADRIANNA DETECTION IMAGING ASS SCREENING MAMMOGRAP HY SCREENING G0202 [place] HARLEEN 4 MEDICAL ADRIANNA MAMMOGRAP IMAGING HY WILBERT ASS INCL CAD WHEN PERFORMD LIPID 89503 [facility] PANEL 4 DIAGNOSTI DIAGNOSTI CS CS IIV3 96758 [facility] [place] VACCINE 9 [facility] VIRUS 0.5 BANK ACCT ML DOSAGE IM USE RADEX 08954 [place] [facility] SPINE 9 [facility] LUMBOSACR INC INC AL MINIMUM 4 VIEWS RADEX 39680 MOHAN ANKUR, SPINE 9 [facility] COMPL ON W/BENDING VIEWS MIN 6 RADIOLOGI 68995 [facility] C 9 [facility] EXAMINATI INC INC ON PELVIS 1/2 VIEWS RADEX HIP 45302 [place] SUMA, 9 MEDICAL MAX [place] [facility]IATE COMPLETE S MINIMUM 2 VIEWS Encounters Encounter Start End Date Code Location Performer Type Date OFFICE 48181 [place] [facility] 7 7 [facility] T VISIT INC 10 MINUTES [facility] [place] [facility] OUTPATIEN INC T [facility] [place] [facility] OUTPATIEN INC T OFFICE 35536 [facility] 7 7 [facility] T VISIT INTERNAL 15 MED MINUTES [facility] [place] [facility] OUTPATIEN INC T EMERGENCY 94001 [facility] SUGGS 7 7 PHYSICIAN DEPARTMEN S, PLLC T VISIT HIGH/URGE NT SEVERITY EMERGENCY 64624 [place] 7 7 [facility] DEPARTMEN INC T VISIT MODERATE SEVERITY OFFICE 34498 [facility] MANNIE 7 7 PHYSICIAN T VISIT S GROUP 15 MINUTES [facility] [place] [facility] OUTPATIEN INC T EMERGENCY 75752 [place] 7 7 [facility] DEPARTMEN INC T VISIT LOW/MODER SEVERITY OFFICE 78960 [facility] 7 7 HEALTH T VISIT MEDICAL 25 GROUP MINUTES [facility] [place] [facility] OUTPATIEN INC T EMERGENCY 57602 [facility] PASCUAL 7 7 PHYSICIAN DEPARTMEN S, PLLC T VISIT MODERATE SEVERITY EMERGENCY 26085 [facility] PASCUAL 7 7 PHYSICIAN DEPARTMEN S, PLLC T VISIT MODERATE SEVERITY [facility] - 7 7 [facility]ALTH OUTPATIEN [place] T OFFICE 84711 [place] [facility] 7 7 [facility] T VISIT 5 INC MINUTES [facility] [place] [facility] OUTPATIEN INC T [facility] [place] [facility] 7 [facility] OUTPATIEN INC T EMERGENCY 82053 [facility] 7 7 [facility] DEPARTMEN INC T VISIT LOW/MODER SEVERITY EMERGENCY 59306 [facility] PASCUAL DEPT 7 7 PHYSICIAN VISIT S, PLLC HIGH SEVERITY& THREAT FUNCJ OFFICE 88705 [facility] ISSA OUTPATIEN 7 7 PHYSICIAN T VISIT S GROUP 10 MINUTES OFFICE 03879 [facility] OUTPATIEN 7 7 PARTNERS T VISIT OF [place] 25 CO MINUTES [facility] [place] [facility] 7 [facility] OUTPATIEN INC T OFFICE 97594 [facility] 7 7 VALLEY T VISIT INTERNAL 15 MED MINUTES [facility] [place] [facility] 7 7 [facility] OUTPATIEN INC T EMERGENCY 82013 [place] 7 7 [facility] DEPARTMEN INC T VISIT HIGH/URGE NT SEVERITY EMERGENCY 42765 [facility] DEPT 7 7 PHYSICIAN VISIT S, PLLC HIGH SEVERITY& THREAT FUNCJ OFFICE 74319 [place] [facility] 7 7 [facility] T VISIT 5 INC MINUTES [facility] [place] [facility] OUTPATIEN INC T [facility] [place] [facility] OUTPATIEN INC T EMERGENCY 06656 [place] 7 7 [facility] DEPARTMEN INC T VISIT MODERATE SEVERITY EMERGENCY 70801 [facility] SANDHU DEPT 7 7 PHYSICIAN VISIT [facility], [facility] HIGH SEVERITY& THREAT FUN [facility] - 7 7 HEALTH OUTPATIEN BIG TIMBER T OFFICE 54399 [facility] MCDANIELS OUTPATIEN 7 7 VINELAND T VISIT INTERNAL 15 MED MINUTES HOSPITAL [facility] - 7 7 HEALTH OUTPATIEN BIG TIMBER T OFFICE 92585 [place] CELI [facility]PATIEN 7 7 [facility] T VISIT HOSPITAL 10 P MINUTES OFFICE 60822 [facility] FUNES OUTPATIEN 7 7 HEALTH T VISIT MEDICAL 25 GROUP MINUTES OFFICE 41326 [place] [facility] 7 7 [facility] T V[facility]IT INC 10 MINUTES OFFICE 87547 YVETTE AVINA OUTPATIEN 7 7 MD RHIANNON, T VISIT PSC 15 MINUTES [facility] [place] [facility] T OFFICE 71536 [place] [facility] T VISIT 5 INC MINUTES [facility] [place] [facility] T OFF[facility] 66638 [place] WEISS JR OUTPATIEN 7 7 [facility] 10 P MINUTES [facility] [place] [facility] OUT[facility] INC T EMERGENCY 36030 S[facility] PASCUAL DEPT 7 7 PHYSICIAN VISIT S, PLL HIGH SEVERITY& THREAT FUNCJ EMERGENCY 52355 [place] 7 7 [facility] DEPARTMEN INC T VISIT LOW/MODER SEVERITY [facility] [place] [facility] T OFFICE 89979 [place] CELI [facility]PATI[facility] 7 7 [facility] 10 P MINUTES EMERGENCY 56034 [place] [facility] H[facility]URGE NT SEVERITY [facility] [place] [facility] [place] [facility] OUTPATIEN INC T PERIODIC 73578 [facility] HUMP[facility] PREVENTIV 7 7 PHYSICIAN E MED EST S GROUP PATIENT [id number] OFFICE 39081 [facility] MATUTE OUTPATIEN 7 7 [facility] T VISIT INTERNAL 15 MED MINUTES [facility] [place] [facility] T OFFICE 69813 [facility] MAEGAN OUTPATIEN 7 7 PHYSICIAN T VISIT S GROUP 15 MINUTES EMERGENCY 95495 [facility] JAQUEZ 7 7 PHYSICIAN DEPARTMEN [facility], [facility] T VISIT HIGH/URGE NT SEVERITY [facility] [place] [facility] 7 [facility] T OFFICE 69599 [place] ALATORRE OUTPATIEN 7 7 [facility] 10 P MINUTES OFFICE 91551 YVETTE JURADO OUTPATIEN 7 7 MD RHIANNON, T VISIT PSC 10 MINUTES [facility] [place] [facility] [place] [facility] [place] [facility] T OFFICE 66296 [facility] KIMBERLY OUTPATIEN 7 7 PHYSICIAN T VISIT S GROUP 25 MINUTES [facility] [place] [facility] T OFFICE 90177 YVETTE AVINA OUTPATIEN 7 7 MD RHIANNON, T NEW 30 PSC MINUTES OFFICE 10516 [place] [facility] 7 7 [facility] T VISIT 5 INC MINUTES OFFICE 68868 [facility] ISSA OUTPATIEN 7 7 PHYSICIAN T VISIT S GROUP 10 MINUTES [facility] [place] [facility] INC T EMERGENCY 40317 SMILEY SOTOMAYOR 7 7 PHYSICIAN JR DEPARTMEN [facility], [facility] T VISIT HIGH/URGE NT SEVERITY OFFICE 16556 [facility] OUTPATIEN 7 7 PHYSICIAN T VISIT S GROUP 25 MINUTES [facility] [place] [facility] INC T OFFICE 74139 [facility] 7 7 [facility] T VISIT INTERNAL 15 MED MINUTES OFFICE 39558 [facility] OUTPATIEN 7 7 PHYSICIAN T VISIT S GROUP 25 MINUTES [facility] [place] [facility] INC T OFFICE 06102 [facility] 7 7 [place] T VISIT ORTHOPAED 15 IC MINUTES EMERGENCY 85891 [place] 7 7 [facility] DEPARTMEN INC T VISIT HIGH/URGE NT SEVERITY [facility] [place] [facility] INC T EMERGENCY 06083 [facility] ARMIJO DEPT 7 7 PHYSICIAN VISIT S, [facility] HIGH SEVERITY& THREAT FUNJ OFFICE 10739 [place] [facility] OUT[facility] 7 7 [place] T VISIT INTERNAL 25 MED MINUTES OFFICE 49658 [place] [facility] 7 7 [facility] T VISIT 5 INC MINUTES [facility] [place] [facility] INC T OFFICE 52929 [facility] OUTPATI[facility] 7 7 [place] T NEW 30 ORTHOPAED MINUTES IC EMERGENCY 75987 [place] 7 7 [facility] DEPARTMEN INC T VISIT LOW/MODER SEVERITY [facility] [place] [facility] 7 7 [facility] OUT[facility] INC T EMERGENCY 12591 [facility] JIMENEZ DEPT 7 7 PHYSIC[facility] SE[facility] TH[facility]AT [facility] [place] [facility] 7 [facility] OUTPATI[facility] INC T EMERGENCY 95073 [place] 7 7 [facility] DEPARTMEN INC T VISIT MODERATE SEVERITY [facility] [place] [facility] INC T EMERGENCY 20147 [place] 7 7 [facility] DEPARTMEN INC T VISIT LOW/MODER SEVERITY EMERGENCY 69066 [facility] PASCUAL 7 7 PHYSICIAN DEPARTMEN [facility], [facility] T VISIT HIGH/URGE NT SEVERITY [facility] [place] [facility] 7 [facility] T OFFICE 48194 [place] [facility] 7 7 [facility] T VISIT 5 INC MINUTES [facility] [place] [facility] INC T OFFICE 36794 [facility] 7 7 [facility] T VISIT INTERNAL 15 MED [address] EMERGENC[facility] T VISIT [facility] MODERATE [facility]VERITY [facility] [place] - 7 7 [facility] EMERGENCY 02986 BOANGELIKAON 7 7 [facility] T VISIT LOW/MODER SEVERITY [facility] [place] [facility] OUT[facility]IEN INC T OFFICE 74250 [place] [facility] 7 7 [facility] T VISIT 5 INC MINUTES OFFICE 14139 [place] OUT[facility]IEN 7 7 VALLEY T VISIT INTERNAL 15 MED MINUTES OFFICE 28998 [place] [facility] 7 7 [facility] T VISIT 5 INC MINUTES EMERGENCY 12010 SMI[facility] MEDEROS 7 7 PHYSICIAN DEPART[facility] T VISIT MODERATE SEVERITY [facility] [place] [facility] T OFFICE 80168 [place] [facility] 7 7 [facility] T VISIT 5 INC MINUTES [facility] [place] [facility] 7 [facility] OUTPATIEN INC T OFFICE 86073 [place] RICH[facility] OUTPATIEN 7 7 VINELAND T VISIT INTERNAL 25 MED MINUTES [facility] [place] [facility] OUTPATIEN INC T OFFICE 44086 [place] [facility] 7 7 [facility] T [facility] 10 INC [facility] JAIN - 7 7 HEALTH OUTPATIEN [facility] OFFICE 93014 [place] JASSO OUTPATIEN 7 7 T VISIT 25 MINUTES [facility] [place] [facility] 7 7 [facility] OUTPATIEN [facility] T EMERGENCY 11896 [place] 7 7 [facility] DEPARTMEN INC T VISIT LIMITED/M INOR PROB [facility] [place] - 7 7 [facility] OUT[facility]EN [facility] T EMERGENCY 10443 [place] 7 7 [facility] DEPARTMEN INC T VISIT LOW/MODER SEVERITY [facility] [place] [facility] 7 7 [facility] OUTPATIEN [facility] T EMERGENCY 93652 [place] 7 7 [facility] DEPARTMEN [facility] T VISIT LIMITED/M INOR PROB EMERGENCY 71241 SMILEY PASCUAL 7 7 PHYSICIAN RADHA S [facility] VIS[facility] MODERATE SEVERITY [facility]OSP[facility] - 7 7 HEALTH OUTPATIEN [facility] JAIN - 7 7 HEALTH OUTPATIEN [facility] [place] [facility] 6 6 [facility] OUTPATIEN [facility] T EMERGENCY 52622 SMILEY SOTOMAYOR 6 6 PHYSICIAN JR RADHA S PLLC T VISIT HIGH/URGE NT SEVERITY OFFICE 07480 [place] OUTPATIEN 6 6 VALLEY T VISIT INTERNAL 15 MED MINUTES EMERGENCY 04568 [place] 6 6 [facility] DEPARTMEN INC T VISIT MODERATE SEVERITY EMERGENCY 86232 SMI[facility] JAQUEZ 6 6 PHYSICIAN [facility], [facility] T VISIT HIGH/URGE NT SEVERITY [facility] [place] - 6 6 [facility] OUTPATIEN INC T EMERGENCY 44622 SMI[facility] ARMIJO 6 6 PHYSICIAN [facility] S, [facility] T VISIT MODERATE SEVERITY [facility] [place] - 6 6 [facility] OUTPATIEN INC T EMERGENCY 42081 [place] 6 6 [facility]ISIT LOW/MODER SEVERITY EMERGENCY 14199 SMI[facility] PASCUAL 6 6 PHYSICIAN [facility] S, [facility] T VISIT MODERATE SEVERITY OFFICE 38589 SCIFRES SCIFRES OUTPATIEN 6 6 ANG ANG T VISIT 10 MINUTES OFFICE 61975 [place] ARSLAN OUTPATIEN 6 6 [facility] T VISIT INTERNAL 15 MED MINUTES OFFICE 56579 WENDY SANCHEZ MICHELLE OUTPATIEN 6 6 T VISIT BARIATRIC 25 SURGICAL MINUTES [facility]OSP[facility] [place] - 6 6 [facility] OUTPATIEN INC T EMERGENCY 05120 SMILEY SOTOMAYOR, 6 6 PHYSICIAN JR BILLINGS [facility], [facility] T VISIT HIGH/URGE NT SEVERITY EMERGENCY 51076 [place] 6 6 [facility]ISIT LOW/MODER SEVERITY EMERGENCY 46681 SMILEY PASCUAL 6 6 PHYSICIAN BRYCE [facility] S, [facility] T VISIT MODERATE SEVERITY OFFICE 79708 [place] FALLUJI OUTPATIEN 6 6 [facility] T VISIT MEDICAL 15 G MINUTES [facility]OSP[facility] [place] - 6 6 [facility] OUTPATIEN INC T OFFICE 19878 [facility] HUMPHREY OUTPATIEN 6 6 PHYSICIAN MEAGAN T VISIT S GROUP 15 MINUTES OFFICE 19046 [facility] ISSA OUTPATIEN 6 6 PHYSICIAN JARON T VISIT S GROUP 10 MINUTES [facility] [place] [facility] 6 6 [facility]EN INC T [facility] [place] [facility] 6 6 [facility] INC T [facility] [place] [facility] 6 6 [facility] OUTPATIEN INC T EMERGENCY 49552 [place] 6 6 [facility] DEPARTMEN INC T VISIT MODERATE SEVERITY OFFICE 57703 [facility] ISSA OUTPATIEN 6 6 PHYSICIAN JARON T VISIT S GROUP 10 MINUTES OFFICE 43876 [place] ANDRES OUTPATIEN 6 6 HEALTH IV HEN T VISIT MEDICAL 15 GROUP MINUTES OFFICE 52351 [place] ROQUEIMONE OUTPATIEN 6 6 [facility] T VISIT HOSPITAL 10 P MINUTES OFFICE 63385 PERLA RODRIGUEZ TRI OUTPATIEN 6 6 GROUND T VISIT FAMILY 25 CLINI MINUTES OFFICE 39209 [facility] 6 [facility] T VISIT 5 [facility] DEPT [facility] DEPT MINUTES [facility] [place] [facility] 6 6 [facility] OUTPATIEN INC T EMERGENCY 51599 SMILEY ARMIJO 6 6 PHYSICIAN CASANDRA GARCIA [facility], [facility] T VISIT HIGH/URGE NT SEVERITY EMERGENCY 64207 [place] 6 6 [facility] DEPARTMEN INC T VISIT LOW/MODER SEVERITY OFFICE 47648 [facility] 6 6 [facility] T VISIT [facility] DEPT [facility] DEPT 15 [facility] [place] - 6 6 [facility] OUTPATIEN INC T OFFICE 88632 [facility] KIMBERLY OUTPATIEN 6 6 PHYSICIAN MAT T VISIT S GROUP 25 MINUTES OFFICE 83448 [facility] SANCHEZ OUTPATIEN 6 6 T VISIT BARIATRIC 25 SURGICAL MINUTES EMERGENCY 44497 SMILEY PASCUAL 6 6 PHYSICIAN BRYCE GARCIA S PLLC T VISIT MODERATE SEVERITY OFFICE 59036 [facility] KIMBERLY OUTPATIEN 6 6 PHYSICIAN MAT T NEW 45 S GROUP MINUTES OFFICE 23135 ALLERGY ROSENTHAL MAR OUTPATIEN 6 6 PARTNERS T VISIT OF [place] 40 CO MINUTES [facility] [place] - 6 6 [facility] OUTPATIEN INC T EMERGENCY 98461 SMILEY JIMENEZ 6 6 PHYSICIAN Taylor GARCIA S PLLC T VISIT HIGH/URGE NT SEVERITY EMERGENCY 49868 [place] 6 6 [facility] DEPARTMEN INC T VISIT LOW/MODER SEVERITY [facility] [place] [facility] 6 6 [facility] OUTPATIEN INC T EMERGENCY 74052 SMI[facility] PASCUAL 6 6 PHYSICIAN BRYCE Reddy PLLC T VISIT MODERATE SEVERITY OFFICE 29600 CINTHYA DONALD OUTPATIEN 6 6 N T VISIT NEUROLOGY 10 MINUTES [facility] [place] [facility] 6 6 [facility] OUTPAT[facility]EN INC T EMERGENCY 73707 SMILEY SOTOMAYOR, 6 6 PHYSICIAN JR MANUELITO Reddy PLLC T VISIT MODERATE SEVERITY [facility] [place] [facility] 6 6 [facility] OUTPATIEN INC T EMERGENCY 60176 SMILEY PASCUAL DEPT 6 6 PHYSICIAN BRYCE VISIT S, PLLC HIGH SEVERITY& THREAT FUNCJ OFFICE 73994 [place] ALATORRE OUTPATIEN 6 6 [facility] 10 P MINUTES EMERGENCY 83813 [place] 6 6 [facility] DEPARTMEN INC T VISIT MODERATE SEVERITY [facility] [place] [facility] 6 6 [facility] OUTPATIEN INC T EMERGENCY 86108 SMILEY SOTOMAYOR, 6 6 PHYSICIAN JR BILLINGS DEPARTMEN S, PLLC T VISIT HIGH/URGE NT SEVERITY OFFICE 26657 [place] WEISS JR OUTPATIEN 6 6 [facility] T VISIT HOSPITAL 10 P MINUTES OFFICE 22887 ALLERGY ROSENTHAL MAR CONSULTAT 6 6 [facility] [place] NEW/ESTAB CO PATIENT 60 MIN EMERGENCY 59434 SMILEY PASCUAL DEPT 6 6 PHYSICIAN BRYCE VISIT S, PLLC HIGH SEVERITY& THREAT FUNCJ EMERGENCY 50191 SMI[facility] PASCUAL 6 6 PHYSICIAN BRYCE DEPARTMEN S, PLLC T VISIT MODERATE SEVERITY EMERGENCY 36748 SMI[facility] PSACUAL DEPT 6 6 PHYSICIAN BRYCE VISIT S, PLLC HIGH SEVERITY& THREAT FUNCJ EMERGENCY 68268 SMILEY SUGGS [facility] 6 6 PHYSICIAN DEPARTMEN S, PLLC T VISIT LOW/MODER SEVERITY [facility] [place] [facility] 6 6 [facility] OUTPATIEN INC T OFFICE 56222 [facility] OUTPATIEN 6 6 PHYSICIAN T VISIT S GROUP 25 MINUTES EMERGENCY 61238 SMILEY PASCUAL 6 6 PHYSICIAN BRYCE DEPARTMEN S, PLLC T VISIT MODERATE SEVERITY [facility] [place] [facility] 6 6 [facility] OUTPATIEN INC T EMERGENCY 76017 [place] 6 6 [facility] DEPARTMEN INC T VISIT LOW/MODER SEVERITY [facility] 6 N OUTPATIEN COMMUNTIY T HOSPITA OFFICE 40700 [facility] ISSA OUTPATIEN 6 6 PHYSICIAN JARON T NEW 20 S GROUP MINUTES EMERGENCY 65403 SMILEY ARMIJO DEPT 6 6 PHYSICIAN CASANDRA VISIT S, PLLC HIGH SEVERITY& THREAT FUNCJ EMERGENCY 57691 SMI[facility] PASCUAL 6 6 PHYSICIAN BRYCE DEPARTMEN S, PLLC T VISIT HIGH/URGE NT SEVERITY [facility] - 6 6 N OUTPATIEN COMMUNTIY T HOSPITA EMERGENCY 91111 SMILEY PASCAUL DEPT 6 6 PHYSICIAN BRYCE VISIT [facility], [facility] HIGH SEVERITY& THREAT FUNJ OFFICE 29986 WENDY SANCHEZ MICHELLE OUTPATIEN 6 6 T VISIT BARIATRIC 25 SURGICAL MINUTES EMERGENCY 06219 [facility] 6 6 EMERGENCY HOW DEPARTMEN PHYS PSC T VISIT MODERATE SEVERITY [facility]OSPITAL [facility] - 6 6 HEALTH OUTPATIEN [place] T EMERGENCY 47267 SMILEY BAGLEY DEPT 6 6 PHYSICIAN FOR VISIT S, [facility] HIGH SEVERITY& THREAT [facility] [place] [facility] 6 6 [facility] OUTPATIEN INC T EMERGENCY 08920 [place] 6 6 [facility] DEPARTMEN INC T VISIT LOW/MODER SEVERITY [facility] [place] - 6 6 [facility] OUTPATIEN INC T EMERGENCY 89121 SMI[facility] PASCUAL 6 6 PHYSICIAN BRYCE DEPARTMEN S, [facility] T VISIT HIGH/URGE NT SEVERITY EMERGENCY 28115 SMILEY SUGGS [facility] 6 6 PHYSICIAN DEPARTMEN S, [facility] T VISIT HIGH/URGE NT SEVERITY [facility] - 6 6 N OUTPATIEN COMMUNTIY T HOSPITA EMERGENCY 45986 [facility] 6 6 ROSALEE JOSE ANGEL DEPARTMEN EMERGENCY T VISIT PHYS HIGH/URGE NT SEVERITY [facility] [place] [facility] 6 6 [facility] OUTPATIEN INC T EMERGENCY 07207 [place] DEPT 6 6 [facility] VISIT INC HIGH SEVERITY& THREAT FUNCJ OFFICE 46289 CINTHYA DONALD CONSULTAT 6 6 N ION NEUROLOGY NEW/ESTAB PATIENT 60 MIN OFFICE 98305 [facility] OUTPATIEN 6 6 MATTI MATTI T NEW 30 MINUTES OFFICE 87851 SCALF LEI SCALF LEI OUTPATIEN 6 6 T VISIT 25 MINUTES EMERGENCY 71313 [facility] DEPT 6 6 PHYSICIAN BRYCE VISIT S, PLL HIGH SEVERITY& THREAT FUNCJ OFFICE 69290 [place] ARSLAN OUTPATIEN 6 6 VALLEY OFELIA T VISIT INTERNAL 15 MED MINUTES [facility]OSPITAL [facility] - 6 6 HEALTH OUTPATIEN [facility] [place] - 6 6 [facility] OUTPATIEN INC T EMERGENCY 83828 [facility] DEPT 6 6 PHYSICIAN BRYCE VISIT S, PLL HIGH SEVERITY& THREAT FUNCJ OFFICE 27255 J[facility] BOLIEK OUTPATIEN 6 6 HEALTH KADIE T VISIT MEDICAL 15 GROUP MINUTES OFFICE 20009 WENDY SANCHEZ MICHELLE OUTPATIEN 6 6 T VISIT BARIATRIC 25 SURGICAL MINUTES [facility] [place] [facility] 6 6 [facility] OUTPATIEN INC T OFFICE 41367 [place] ARSLAN OUTPATIEN 6 6 VINELAND OFELIA T VISIT INTERNAL 15 MED MINUTES INITIAL 80874 [facility] PREVENTIV 6 6 PHYSICIAN E S GROUP MEDICINE NEW PATIENT 40-64YRS OFFICE 12956 JAIN BOLIEK OUTPATIEN 6 6 PRIMARY KADIE T VISIT CARE OF 15 ABISAI MINUTES [facility] [place] - 6 6 [facility] OUTPATIEN INC T OFFICE 08914 [place] ARSLAN OUTPATIEN 6 6 VALLEY OFELIA T VISIT INTERNAL 15 MED MINUTES [facility] [place] [facility] 6 6 [facility] OUTPATIEN INC T OFFICE 92334 WENDY SANCHEZ MICHELLE OUTPATIEN 5 5 T VISIT BARIATRIC 25 SURGICAL MINUTES OFFICE 34253 ATKINS ATKINS OUTPATIEN 5 5 TRA TRA T VISIT 25 MINUTES PERIODIC 46540 [facility] MED EST HLTH DEPT HLTH DEPT PATIENT JAZZ JAZZ 40-64YRS OFFICE 50396 WENDY MARTINEZ OUTPATIEN 5 5 T VISIT BARIATRIC 15 SURGICAL MINUTES [facility] [place] [facility] 5 5 [facility] OUTPATIEN INC [facility] [place] - 5 5 [facility] OUTPATIEN INC T OFFICE 31007 [place] ARSLAN OUTPATIEN 5 5 VALLEY OFELIA T NEW 30 INTERNAL MINUTES MED OFFICE 81431 [facility] PETTEY OUTPATIEN 5 5 PHYSICIAN JACOBY T VISIT S GROUP 15 MINUTES OFFICE 85855 GASTROENT CASE JUS OUTPATIEN 5 5 EROLOGY T VISIT AND 15 HEPATOL MINUTES OFFICE 31669 [facility] OUT[facility] 5 5 HEALTH KADIE T VISIT MEDICAL 10 GROUP MINUTES [facility] - 5 5 N OUTPATIEN COMMUNTIY T HOSPITA EMERGENCY 32755 SMI[facility] HUTCHISON 5 5 PHYSICIAN KENNY Reddy [facility] T VISIT HIGH/URGE NT SEVERITY [facility] [place] [facility] 5 5 [facility]PAT[facility]EN [facility] 5 5 N OUTPATIEN COMMUNTIY T HOSPITA OFFICE 95659 GASTROENT CASE JUS OUTPATIEN 5 5 EROLOGY T NEW 45 AND MINUTES HEPATOL [facility] [place] - 5 5 [facility]PAT[facility]EN INC [facility] [place] [facility] 5 5 [facility] OUTPATIEN INC T EMERGENCY 25253 [place] SOTOMAYOR, 5 5 [facility] T VISIT P LOW/MODER SEVERITY OFFICE 97038 DANIEL SANCHEZ OUTPATIEN 5 5 HUBER HUBER T VISIT 15 MINUTES EMERGENCY 16443 [place] SOTOMAYOR, 5 5 [facility] T VISIT P MODERATE SEVERITY [facility] [place] - 5 5 [facility] OUTPATIEN INC T [facility] - 5 5 N OUTPATIEN COMMUNTIY T [facility] 5 5 N OUTPATIEN COMMUNTIY T [facility] 5 5 N INPATIENT COMMUNTIY [facility] [place] - 5 5 [facility] OUTPATIEN INC T OFFICE 40682 WENDY SANCHEZ MICHELLE OUTPATIEN 5 5 T VISIT BARIATRIC 40 SURGICAL MINUTES OFFICE 22422 DANIEL SANCHEZ OUTPATIEN 5 5 HUBER HUBER T VISIT 15 MINUTES [facility] [place] - 5 5 [facility] OUTPATIEN INC T EMERGENCY 32079 [place] 5 5 [facility] LOW[facility]MODER SEVERITY [facility] [place] - 5 5 [facility]EN [facility] 5 5 N OUTPATIEN COMMUNTIY [facility] [place] [facility] 5 5 [facility] OUTPATIEN INC T OFFICE 41540 [place] ALATORRE OUTPATIEN 5 5 [facility] MINUTES P [facility] [place] - 5 5 [facility] OUTPATIEN INC T OFFICE 25273 MELANIE NOGUEIRA OUTPATIEN 5 5 MEDICAL JAM T VISIT SERV 15 FOUNDATIO MINUTES N OFFICE 45615 [place] WEISS JR OUTPATIEN 5 5 [facility] 20 HOSPITAL MINUTES P OFFICE 10638 [facility] PETTEMago OUTPATIEN 5 5 PHYSICIAN JAM T NEW 30 S GROUP MINUTES OFFICE 71841 [place] FALLUJI CONSULTAT 5 5 [facility] ION MEDICAL NEW/ESTAB G PATIENT 60 MIN OFFICE 99635 DANIEL CHAND 5 5 HUBER HUBER T VISIT 15 MINUTES EMERGENCY 02180 [place] 5 5 [facility] DEPARTMEN INC T VISIT HIGH/URGE NT SEVERITY [facility] [place] - 5 5 [facility] OUTPATIEN INC T EMERGENCY 87227 [place] ESCOTO 5 5 [facility] T VISIT P MODERATE SEVERITY [facility] [place] - 5 5 [facility] OUTPATIEN INC T EMERGENCY 53624 [place] 5 5 [facility] HIGH/URGE NT SEVERITY OFFICE 04908 DANIEL CHAND 5 5 HUBER HUBER T VISIT 15 MINUTES OFFICE 99669 DANIEL CHAND 4 4 HUBER HUBER T VISIT 15 MINUTES EMERGENCY 74209 [place] 4 4 [facility] DEPARTMEN INC T VISIT LOW/MODER SEVERITY [facility] [place] - 4 4 [facility] OUTPATIEN INC T OFFICE 96703 DANIEL CHAND 4 4 HUBER HUBER T VISIT 15 MINUTES [facility] [place] - 4 4 [facility] OUTPATIEN INC T EMERGENCY 03403 [facility] DE[facility] 4 4 ROSALEE VISIT EMERGENCY HIGH PHYS SEVERITY& THREAT [facility] - 4 4 N OUTPATIEN COMMUNITY T HOSPITA OFFICE 17998 DANIEL CHAND 4 4 HUBER HUBER T VISIT 15 MINUTES OFFICE 62358 MONALISA SEXTON CONSULTAT 4 4 KADIE ION CARDIOLOG NEW/ESTAB Y AT CENT PATIENT 40 MIN [facility] [place] - 4 4 [facility] OUTPATIEN INC T OFFICE 11681 [place] NOGUEIRA CONSULTAT 4 4 MEDICAL JAM ION SERV NEW/ESTAB FOUNDATIO PATIENT N 60 MIN [facility] [place] - 4 4 [facility] OUTPATIEN INC T OFFICE 73735 ADNIEL CHAND 4 4 HUBER HUBER T VISIT 15 MINUTES OFFICE 51147 ATKINS ATKINS CONSULTAT 4 4 TRA TRA ION NEW/ESTAB PATIENT 40 MIN OFFICE 97729 [facility] OUTPATIEN 4 4 [facility] T VISIT MEDICAL 15 G MINUTES [facility] [place] [facility] 4 4 [facility]PAT[facility] INC T OFFICE 62303 [facility] OUTPATIEN 4 4 [facility] T NEW 30 MEDICAL MINUTES G EMERGENCY 70916 [facility] DEPT 4 4 [facility] VISIT EMERGENCY HIGH PHYSI SEVERITY& THREAT [facility] [place] - 4 4 [facility] OUTPATIEN INC T EMERGENCY 06518 [place] 4 4 [facility] DEPARTMEN INC T VISIT MODERATE SEVERITY EMERGENCY 58338 HORTENCIA HUGHES DEPT 4 4 VISIT HIGH SEVERITY& THREAT [facility] [place] - 4 4 [facility] OUTPATIEN INC T EMERGENCY 69558 ANKUR PASCUAL DEPT 4 4 BRYCE BRYCE VISIT HIGH SEVERITY& THREAT FUN EMERGENCY 25977 [place] 4 4 [facility] DEPARTMEN INC T VISIT HIGH/URGE NT SEVERITY OFFICE 78512 DANIEL CHAND 4 4 HUBER HUBER T VISIT 15 MINUTES OFFICE 41189 SANCHEZ MICHELLE SANCHEZ MICHELLE CONSULTAT 4 4 ION NEW/ESTAB PATIENT 80 MIN OFFICE 51534 DANIEL CHAND 4 4 HUBER HUBER T NEW 30 MINUTES [facility] [place] - 4 4 [facility] OUTPATIEN INC T OFFICE 67085 MAEGAN ISSA OUTPATIEN 4 4 JARON JARON T VISIT 5 MINUTES OFFICE 76121 MAEGAN VERAON OUTPATIEN 4 4 JARON JARON T NEW 30 MINUTES EMERGENCY 75203 KIMBERLEE PASCUAL, 9 9 [facility] T VISIT ON HIGH/URGE NT SEVERITY EMERGENCY 47294 [place] 9 9 [facility] DEPARTMEN INC T VISIT LOW/MODER SEVERITY [facility] [place] - 9 9 [facility] OUTPATIEN INC T
--- OUTSIDE RECORDS SUMMARY | 2017-09-09 23:18 | External Medical Summary Rpt | CCD ---
Author Author , YENNY Organization YENNY Address Unknown Phone [email or web address] Care Team Providers Care Dentist Name Role Phone ALFARIS MOH, ALFARIS Unavailable Unavailable MOH [facility] Un[facility]available [place], [facility] [place] YVETTE JURADO MD, PSC, Unavailable Unavailable YVETTE JURADO MD, PSC ARNOLD HUBER, ARNOLD Unavailable Unavailable HUBER ARNOLD HUBER, ARNOLD Unavailable Unavailable HUBER ATKINS TRA, ATKINS Unavailable Unavailable TRA ATKINS TRA, ATKINS Unavailable Unavailable TRA [facility] Unavailable Unavailable [facility], [facility] Unavailable Unavailable MEDICAL GROUP, [facility] Un[facility] Unavailable [facility], [facility] Unavailable Unavailable OF [facility], [facility] BEMICHAEL, BEINEKE Unavailable Unavailable BEINEKE D, BEINEKE D Unavailable Unavailable BEINEKE CARMEN, BEINEKE Unavailable Unavailable CARMEN DUMONT HOW, DUMONT Unavailable Unavailable HOW BESSON, BESSON Unavailable Unavailable BESSON DOMINIQUE, BESSON Unavailable Unavailable DOMINIQUE [facility] Unavailable Unavailable SUR[facility], [facility] BOLIEK KADIE, BOLIEK Unavailable Unavailable KADIE CERRATO, CERRATO Unavailable Unavailable CERRATO ALL, CERRATO ALL Unavailable [facility]available [facility], [facility] Unavailable Unavailable SERVICE, [facility] Unavailable Unavailable SERVICE, [facility] BUX, BUX Unavailable Unavailable SVITLANA KILO, SVITLANA Unavailable Unavailable KILO CASE JUS, CASE JUS Unavailable Unavailable [facility] Un[facility] Un[facility], [facility] Unavailable Unavailable ANESTHESIA, [facility] ANEST[facility]IA CHESTNUT, CHESTNUT Unavailable Unavailable HUMPHREY, HUMPHREY [...] Unavailable Unavailable HOSPITA, [facility] Unavailable Unavailable HOSPITA, [facility], Unavailable Unavailable [facility] RODRIGUEZ TRI, RODRIGUEZ TRI Unavailable Unavailable ANDREWS RHO, ANDREWS Unavailable Unavailable [facility] Unavailable Unavailable CENTER, [facility] Unavailable Unavailable INC, [facility] Unavailable Unavailable HOSPITAL P, [facility] P BOYER CHRISTEL, BOYER CHRISTEL Unavailable Unavailable [facility], Unavailable Unavailable [facility] JAQUEZ, JAQUEZ Unavailable Unavailable VAUGHN TERA, VAUGHN Unavailable Unavailable TERA ADAMS, ADAMS Unavailable Unavailable ILUYOMADE ROT, Unavailable Unavailable ILUYOM[facility] ROT FELICIA DUARTE Unavailable Unavailable [facility] Unavailable Unavailable GROUP PS, [facility] Unavailable Unavailable [facility], [facility] Unavailable Unavailable MEDICAL G, [facility] MEDICAL G KRASNOPOLSKY LAUREN, Unavailable Unavailable KRASNOPOLSK[facility] LAUREN [facility], [facility] MA[facility] Unavailable Unavailable [facility], [facility] Unavailable Unavailable HOLDINGS, [facility] ISSA, ISSA Unavailable Unavailable ISSA JARON, ISSA Unavailable Unavailable JARON ISSA JARON, ISSA Unavailable Unavailable JARON SCOTT JR, SCOTT JR Unavailable Unavailable SCOTT JR DWI, SCOTT Unavailable Unavailable JR DWI [facility] Unavailable Unavailable SPECIALISTS,, [facility], [facility] Unavailable Unavailable INTERNAL MED, [facility] BRITTNY, BRITTNY Unavailable [...] #591 WALKER FOR, WALKER Unavailable Unavailable FOR [facility] Unavailable Unavailable DEPT [facility], [facility] DEPT [facility] Unavailable [facility]available DEPT JAZZ, [facility] DE[facility] SANCHEZ, SANCHEZ Unavailable Unavailable SANCHEZ [...] HOSP INC R51 HEADACHE 07-15-2017 [facility] SHERIFF, [facility] [id number] OTHER LONG 07-15-2017 [place] TERM [facility] CURRENT INC DRUG THERAPY J309 ALLERGIC 07-11-2017 [facility] RHINITIS PHYSICIANS UNSPECIFIED GROUP J320 CHRONIC 07-11-2017 [facility] MAXILLARY PHYSICIANS SINUSITIS GROUP Z1231 ENCOUNTER 07-09-2017 [place] SCREENING MEDICAL MAMMO MALIG IMAGING ASS NEOPLASM BREAST E6601 MORBID 07-08-2017 [facility] OBESITY DUE MEDICAL TO EXCESS GROUP CALORIES K5900 CONSTIPATIO 07-08-2017 [facility] N HEALTH UNSPECIFIED MEDICAL GROUP R0981 NASAL 07-08-2017 [facility] SHERIFF, [facility] R110 NAUSEA 07-08-2017 [facility] R635 ABNORMAL 07-08-2017 [facility] Z6841 BODY MASS 07-08-2017 [facility] INDEX BMI HEALTH 40.0-44.9 MEDICAL ADULT GROUP [id number] BARIATRIC 07-08-2017 [facility] STATUS MEDICAL GROUP R202 PARESTHESIA 07-07-2017 [facility] SKIN NEUROLOGY U35662 UNSPECIFIED 06-30-2017 [facility] ASTHMA PHYSICIANS, [facility]COMPLICAT [facility] H524 PRESBYOPIA 06-27-2017 SCIFRCANELO Z539 PROCEDURE & 06-26-2017 [facility] T[facility]AT[facility] NOT CARRIED [place] OUT UNS REASON B370 CANDIDAL 06-22-2017 [place] STOMATITIS [facility] INC R1084 GENERALIZED 06-20-2017 [facility] ABDOMINAL PHYSICIANS, PAIN PLLC R109 UNSPECIFIED 06-20-2017 [place] ABDOMINAL [facility]ICAL PAIN IMAGING ASS R140 ABDOMINAL 06-20-2017 [place] DISTENSION MEDICAL GASEOUS IMAGING ASS J3501 CHRONIC 06-19-2017 [facility] TONSILLITIS PHYSICIANS GROUP J301 ALLERGIC 06-11-2017 [facility] RHINITIS [facility] OF DUE TO [place] POLLEN J3081 ALLERG 06-11-2017 [facility] RHINITIS PARTNERS OF D/T ANIMAL [place] CAT DOG HAIR & DANDER J3089 OTHER 06-11-2017 [facility] ALLERGIC [facility] RHINITIS [place] J4530 MILD 06-11-2017 [facility] PERSISTENT PARTNERS OF ASTHMA [place] UNCOMPLICAT ED C72537 OTHER 06-11-2017 [facility] ASTHMA EQUIPMENT INC Q16478 ALLERGY TO 06-11-2017 [facility] OTHER FOODS [facility] [place] R002 PALPITATION 06-10-2017 [facility] P [id number] UNS INJURY 06-10-2017 [facility] LOWER MEDICAL LEG INITIAL IMAGING ASS ENCOUNTER R079 CHEST PAIN 06-04-2017 [place] UNSPECIFIED [place] INTERNAL MED [id number] SPRAIN 06-01-2017 [place] UNSPECIFIED [facility] P KNEE INITIAL ENCNTR X053RFF UNS ADVERS 06-01-2017 [facility] EFFECT PHYSICIANS, DRUG/MEDICA PLL MENT INITIAL ENCNTR [id number] FALL SAME 06-01-2017 [place] YO SLIP [facility] P FURN INITIAL ENC A57367 BEDROOM 06-01-2017 [place] [facility] P OCCUR EXT CAUSE E785 HYPERLIPIDE 05-19-2017 [facility] [place] UNSPECIFIED ANESTHESIA K449 DIAPHRAGMAT 05-19-2017 [facility] HERNIA [place] W/O ANESTHESIA OBSTRUCTION OR GANGRENE R1310 DYSPHAGIA 05-19-2017 [facility] UNSPECIFIED PHYS SURG CTR J069 ACUTE UPPER 05-05-2017 [facility] HOSP RESPIRATORY INC INFECTION UNSPECIFIED R072 PRECORDIAL 05-05-2017 [facility] , R0789 OTHER CHEST 05-04-2017 [facility] PAIN PHYSICIANS, SILVIOC Z809 FAMILY 05-04-2017 [place] HISTORY OF MEM HOS[facility] MALIGNANT INC NEOPLASM UNSPECIFIED Z8249 FAMILY HX 05-04-2017 [place] ISCHEMIC [facility] HRT DZ OT HOSPITAL P DZ CIRC SYSTEM Z833 FAMILY 05-04-2017 [place] HISTORY OF [facility] DIABETES [place] [facility] P MELLITUS J96107 ENCOUNTER 04-30-2017 [facility] FOR [facility]ALTH PREPROCEDUR [facility] AL CARIOVASCUL AR EXAM X08343 ENCOUNTER 04-30-2017 [facility] FOR [facility] PREPROCEDUR [facility] AL LABORATORY EXAM B977 PAPILLOMAVI 04-29-2017 [facility], RAJ CAUSE LLC OF DZ CLASSIFIED ELSEWHERE N870 MILD 04-29-2017 [facility], CERVICAL LLC DYSPLASIA Q62642 ATYP SQ 04-29-2017 [facility] CELLS UNDET PHYSICIANS GROUP SIGNIFICANC E CYTOL SMER CERV X28998 CERV HIGH 04-29-2017 [facility] RSK HUMAN PHYSICIANS PAPILLOMAVI GROUP RAJ DNA TEST POS 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 04-10-2017 [facility] OF HEALTH ESOPHAGUS [facility] F28715 DECREASED 04-09-2017 [place] WHITE BLOOD [facility] CELL COUNT [place] [facility] P UNSPECIFIED R1319 OTHER 04-08-2017 [facility] DYSPHAGIA HEALTH MEDICAL GROUP [id number] SPONDYLOSIS 04-07-2017 YVETTE JURADO W/O , PSC MYELOPATH/R ADICULOPATH Y LUMB RGN M479 SPONDYLOSIS 04-07-2017 [facility] HOSP UNSPECIFIED INC 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, PSC RAL DISC DEGEN LUMBAR REGION R350 FREQUENCY 03-27-2017 [facility] MICTURITION [place] [facility] P R3915 URGENCY OF 03-27-2017 [place] URINATION [facility] P R200 ANESTHESIA 03-25-2017 [place] OF SKIN MEDICAL IMAGING ASS R42 DIZZINESS 03-25-2017 [place] AND MEDICAL GIDDINESS IMAGING ASS D709 NEUTROPENIA 03-24-2017 [facility] P [id number] ADVERSE EFF 03-22-2017 [facility] DS SYNTH ANALOG INIT ENC [id number] ADVERS EFF 03-22-2017 [facility] RX MEDS MEM HOS[facility] BIO INC SUBSTANCES INIT ENC N69522 OTHER 03-21-2017 [place] SPONDYLOSIS MEM [facility]OS[facility] LUMBAR INC REGION M5116 INTERVERTEB 03-21-2017 [place] RAL DISC [facility] D/O INC W/RADICULOP ATHY LUMB RGN Q01601 ENCOUNTER 03-19-2017 [facility], TRAILER RENTAL CLERK EXAM LLC GENERAL RTN W/ABNORMAL FIND D07394 ENCOUNTER 03-19-2017 [facility] TRAILER RENTAL CLERK EXAM PHYSICIANS GENERAL RTN GROUP W/O ABNORMAL FIND H6982 OTHER SPEC 03-13-2017 [facility] DISORDERS PHYSICIANS EUSTACHIAN GROUP TUBE LT EAR 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 PHYSICIANS UNRESTIRCT GROUP CONTRALAT SIDE R300 DYSURIA 03-12-2017 [facility] PHYSICIANS, [facility] M4726 OT 03-03-2017 [place] SPONDYLOSIS [facility] INC W/RADICULOP ATHY LUMBAR REGION N390 URINARY 03-03-2017 [place] TRACT [facility] INFECTION INC SITE NOT SPECIFIED R911 SOLITARY 02-27-2017 [place] PULMONARY MEDICAL NODULE IMAGING ASS Z09 ENC F/U 02-27-2017 [place] EXAM AFTR MEDICAL CMPL TX OTH IMAGING ASS THAN MALIG NEOPLSM E669 OBESITY 02-25-2017 [facility] UNSPECIFIED PHYSICIANS GROUP I119 HYPERTENSIV 02-25-2017 [facility] E HEART PHYSICIANS DISEASE GROUP WITHOUT HEART FAILURE R0600 DYSPNEA 02-25-2017 [facility] UNSPECIFIED PHYSICIANS GROUP J310 CHRONIC 02-17-2017 [facility] RHINITIS PHYSICIANS GROUP J329 CHRONIC 02-17-2017 [facility] SINUSITIS PHYSICIANS UNSPECIFIED GROUP J342 DEVIATED 02-17-2017 [facility] NASAL PHYSICIANS SEPTUM GROUP M5416 RADICULOPAT 02-17-2017 [place] HY LUMBAR [facility] REGION INC M545 LOW BACK 02-17-2017 YVETTE JURADO, PAIN , PSC I998 OTHER 02-11-2017 [place] DISORDER OF [facility] INC CIRCULATORY SYSTEM R0602 SHORTNESS 02-11-2017 [place] OF BREATH [facility] INC G8929 OTHER 02-10-2017 [place] CHRONIC VALLEY PAIN INTERNAL MED R46328 PAIN IN 02-10-2017 [place] LEFT VALLEY SHOULDER INTERNAL MED M5440 LUMBAGO 02-10-2017 [place] WITH VALLEY SCIATICA INTERNAL UNSPECIFIED MED SIDE R5383 OTHER 01-31-2017 [facility] FATIGUE PHYSICIANS GROUP M792 NEURALGIA 01-27-2017 [place] AND VALLEY NEURITIS INTERNAL UNSPECIFIED MED I10 ESSENTIAL 01-26-2017 [place] PRIMARY [facility] HYPERTENSIO INC N M542 CERVICALGIA 01-26-2017 [place] INC W32671 SPONDYLOSIS 01-22-2017 [place] W/O MEDICAL MYELOPATH/R IMAGING ASS ADICULOPATH Y CERV RGN P154NDD STRAIN 01-22-2017 [facility] MUSCLE FASC PHYSICIANS, & TENDON PLLC NECK LEVL INIT ENC U93716A STRAIN 01-16-2017 [facility] MUSCLE & PHYSICIANS, TENDON UNS PLLC WALL THORAX INIT ENC Z882 ALLERGY 01-11-2017 [place] STATUS TO [facility] S STATUS Z886 ALLERGY 01-11-2017 [place] [facility] TO [facility] ANAL[facility]IC [facility]PITAL AGENT STATUS Z888 ALLERGY 01-11-2017 [place] STATUS OTH [facility]ITY [facility]OSPITAL BIOLOG SUBSTAN STS H9203 OTALGIA 01-10-2017 [place] BILATERAL [facility] INC I209 ANGINA 01-10-2017 [place] PECTORIS [facility] UNSPECIFIED INC R071 CHEST PAIN 01-07-2017 [place] BREATHING INTERNAL MED Z720 TOBACCO USE 01-04-2017 [place] [facility] INC Q96599 MUSCLE 12-25-2016 [place] SPASM OF MEM [facility] BACK INC R1013 EPIGASTRIC 12-25-2016 [place] PAIN [place] INTERNAL MED R4702 DYSPHASIA 12-25-2016 [place] INTERNAL MED B078 OTHER VIRAL 12-23-2016 [facility] WARTS K30 FUNCTIONAL 12-23-2016 [facility] DYSPEPSIA [facility] L218 OTHER 12-23-2016 [facility] SEBORRHEIC DERMATITIS L538 OTHER 12-23-2016 [facility] SPECIFIED ERYTHEMATOU S CONDITIONS R208 OTHER 12-23-2016 [facility] DISTURBANCE S OF SKIN SENSATION R238 OTHER SKIN 12-23-2016 [facility] CHANGES K5903 DRUG 12-17-2016 [place] INDUCED [facility] CONSTIPATIO INC N X919N9M ADVERSE 12-17-2016 [place] EFFECT [facility] OTHER INC OPIOIDS INITIAL ENCOUNTER K910 VOMITING 12-12-2016 [place] FOLLOWING [facility] GASTROINTES INC TINAL SURGERY R600 LOCALIZED 12-12-2016 [facility] EDEMA PHYSICIANS, PLLC R609 EDEMA 12-12-2016 [place] UNSPECIFIED [facility] INC X26163 OTHER 12-12-2016 [place] SPECIFIED MEDICAL POSTPROCEDU IMAGING ASS RAL STATES N393 STRESS 12-11-2016 [facility] INCONTINENC HEALTH E FEMALE [place] MALE Z903 ACQUIRED 12-11-2016 [facility] ABSENCE OF HEALTH STOMACH MONALISA P90689 ENCOUNTER 12-05-2016 [facility] FOR OTHER HEALTH PREPROCEDUR MEDICAL AL GROUP EXAMINATION K210 GASTRO-ESOP 11-22-2016 [facility] HAGEAL PHYSICIANS, REFLUX PLLC DISEASE W/ ESOPHAGITIS K625 HEMORRHAGE 11-19-2016 [place] OF ANUS AND VALLEY RECTUM INTERNAL MED M546 PAIN IN 11-08-2016 [facility] THORACIC PHYSICIANS, SPINE PLLC W27328 PAIN IN 10-14-2016 [place] UNSPECIFIED MEDICAL HIP IMAGING ASS M533 SACROCOCCYG 10-14-2016 [place] EAL MEDICAL DISORDERS IMAGING ASS NEC T261UIP CONTUSION 10-14-2016 [facility] LOWER BACK PHYSICIANS, & PELVIS PLLC INITIAL ENCOUNTER H1853EH UNSPECIFIED 10-14-2016 [place] INJURY MEDICAL LOWER BACK IMAGING ASS INITIAL ENCOUNTER K8619XL UNSPECIFIED 10-14-2016 [place] INJURY OF MEDICAL PELVIS IMAGING ASS INITIAL ENCOUNTER H3581 RETINAL 10-11-2016 [facility] ANG EDEMA R040 EPISTAXIS 10-10-2016 [place] INTERNAL MED E6609 OTHER 10-08-2016 [facility] OBESITY DUE BARIATRIC TO EXCESS SURGICAL CALORIES J3489 OTHER 10-06-2016 [facility] SPECIFIED PHYSICIANS, DISORDERS PLLC NOSE AND NASAL SINUSES R05 COUGH 10-06-2016 [place] [facility]ICAL [facility] ASS A6004 HERPESVIRAL 09-27-2016 [facility] PHYSICIANS VULVOVAGINI GROUP TIS N760 ACUTE 09-27-2016 [facility] VAGINITIS PHYSICIANS GROUP J355M0D CONCUSSION 09-21-2016 [place] WITHOUT LOC [facility] INITIAL INC ENCOUNTER V7362EE UNSPECIFIED 09-21-2016 [place] INJURY OF MEDICAL HEAD IMAGING ASS INITIAL ENCOUNTER H6903 PATULOUS 09-19-2016 ISS[facility] JARON EUSTACHIAN TUBE BILATERAL J86544 UNSPECIFIED 09-18-2016 [facility] PHYSICIANS OBSTRUCTION GROUP EUSTACHIAN TUBE BILAT R590 LOCALIZED 09-04-2016 [facility] P Z6834 BODY MASS 09-04-2016 [facility] INDEX BMI HEALTH 34.0-34.9 MEDICAL ADULT GROUP K5909 OTHER 09-03-2016 [facility] CONSTIPATIO GROUND N FAMILY CLINI R112 NAUSEA WITH 09-03-2016 [facility] VOMITING GROUND UNSPECIFIED FAMILY CLINI Z111 ENCOUNTER 09-02-2016 [facility] SCREENING [facility] FOR [facility] DEPT RESPIRATORY JAZZ TUBERCULOSI S M549 DORSALGIA 09-01-2016 [facility] UNSPECIFIED PHYSICIANS, PLLC R197 DIARRHEA 09-01-2016 [facility] UNSPECIFIED PHYSICIANS, PLLC V44531D ADVERSE 09-01-2016 [facility] P SRI INITIAL ENCOUNTER R22995 UNS PLACE 09-01-2016 [facility] P PLACE OF OCCUR EXT R195 OTHER FECAL 08-30-2016 [facility] HOSP ABNORMALITI INC ES Z202 CONTACT 08-30-2016 [facility] WITH DISTRICT EXPOSURE [facility] DEPT INFECT JAZZ SEXUAL MODE TRANSMS R5381 OTHER 08-29-2016 [facility] MALAISE PHYSICIANS GROUP R9431 ABNORMAL 08-29-2016 [facility] ELECTROCARD PHYSICIANS IOGRAM GROUP S11200 LYMPHOCYTOP 08-21-2016 [place] ENIA [facility] INC J4520 MILD 08-21-2016 [facility] INTERMITTEN PARTNERS OF T ASTHMA [place] UNCOMPLICAT ED Z712VGP OTHER 08-21-2016 [facility] ADVERSE PARTNERS OF FOOD [place] REACTIONS NEC SUBSEQUENT ENC M791 MYALGIA 08-17-2016 [facility] PHYSICIANS, PLLC M898X9 OTHER 08-12-2016 [place] SPECIFIED MEDICAL DISORDERS IMAGING ASS BONE UNSPECIFIED SITE R599 ENLARGED 08-12-2016 [place] LYMPH NODES [facility] INC UNSPECIFIED R1314 DYSPHAGIA 08-10-2016 [facility] PHARYNGOESO PHYSICIANS, PHAGEAL PLLC PHASE R5382 CHRONIC 08-07-2016 [place] FATIGUE MEM H[facility] UNSPECIFIED INC R591 GENERALIZED 08-05-2016 [facility] P I208 OTHER FORMS 08-02-2016 [place] OF ANGINA [facility] PECTORIS [place] [facility] SSD P D04197 PAIN IN 08-02-2016 [facility] RIGHT KNEE MEDICAL IMAGING ASS R55 SYNCOPE AND 08-02-2016 [facility] COLLAPSE PHYSICIANS, PLLC F911MYR UNSPECIFIED 08-02-2016 [place] INJURY OF MEDICAL NECK IMAGING ASS INITIAL ENCOUNTER W0915NX UNS INJURY 08-02-2016 [place] RT LOWER MEDICAL LEG INITIAL IMAGING ASS ENCOUNTER N281 CYST OF 08-01-2016 [place] [facility] P R209 UNSPECIFIED 07-29-2016 [facility] PHYSICIANS, DISTURBANCE PLLC S OF SKIN SENSATION K589 IRRITABLE 07-24-2016 [facility] BOWEL PHYSICIANS SYNDROME GROUP WITHOUT DIARRHEA R102 PELVIC AND 07-24-2016 [facility] PERINEAL PHYSICIANS PAIN GROUP N831 CORPUS 07-22-2016 [facility] LUTEUM CYST PHYSICIANS GROUP N920 EXCESS & 07-22-2016 [facility] FREQUENT PHYSICIANS MENSTRUATIO GROUP N W/REGULAR CYCLE E70178X STRAIN UNS 07-22-2016 [facility] MUSCLE FASC PHYSICIANS, TEND THIGH PLLC RT INITIAL ENC Z7251 HIGH RISK 07-22-2016 [facility] BEHAVIOR INC R12 HEARTBURN 07-18-2016 [facility] H938X9 OTHER 07-17-2016 [facility] SPECIFIED PHYSICIANS DISORDERS GROUP OF EAR UNSPECIFIED EAR J302 OTHER 07-17-2016 [facility] SEASONAL PHYSICIANS ALLERGIC GROUP RHINITIS X8985OX LACERATION 07-13-2016 [facility] W/O FOREIGN PHYSICIANS, BODY SCALP PLLC INITIAL ENC R6889 OTHER 07-10-2016 [facility] SYMPTOMS HOSPITA AND SIGNS E780 PURE 07-09-2016 [facility] HYPERCHOLES BARIATRIC TEROLEMIA SURGICAL E876 HYPOKALEMIA 07-09-2016 [facility] P H6990 UNSPECIFIED 07-07-2016 [facility] EMERGENCY TUBE PHYS PSC DISORDER UNS EAR H938X3 OTHER 07-07-2016 [facility] SPECIFIED HEALTH DISORDERS [place] OF EAR BILATERAL M5432 SCIATICA 07-07-2016 [facility] LEFT SIDE EMERGENCY PHYS PSC R1010 UPPER 07-05-2016 [facility] ABDOMINAL PHYSICIANS, PAIN PLLC UNSPECIFIED I880 NONSPECIFIC 06-27-2016 [facility] MESENTERIC PHYSICIANS, PLLC LYMPHADENIT IS R100 ACUTE 06-27-2016 [facility]BDOMEN AMBULANCE SERVICE R1031 RIGHT LOWER 06-26-2016 [facility] EMER[facility]ENCY PAIN PHYS C70460 RIGHT LOWER 06-26-2016 [place] [facility] ABDOMINAL HOSPITA TENDERNESS N200 CALCULUS OF 06-24-2016 [place] KIDNEY MEDICAL IMAGING ASS M5386 OTHER 06-11-2016 [place] SPECIFIED DORSOPATHIE S LUMBAR REGION D225 MELANOCYTIC 05-23-2016 [facility] NEVI OF TRUNK D2272 MELANOCYTIC 05-23-2016 [facility] NEVI LEFT LOWER LIMB INCLUDING HIP 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 05-23-2016 [facility] UNCERTAIN BEHAVIOR OF SKIN L400 PSORIASIS 05-23-2016 [facility] VULGARIS L408 OTHER 05-23-2016 [facility] L578 [facility] 05-23-2016 [facility] CHANGES D/T CHRN EXPS TO NONIONIZING RAD R9439 ABNORMAL 04-08-2016 [facility] RESULT [facility] CARDIOVASCU MEDICAL LR FUNCTION GROUP STUDY I340 NONRHEUMATI 04-04-2016 [facility] MITRAL [facility] INSUFFICIEN CY I351 NONRHEUMATI 04-04-2016 [facility] AORTIC SERV [facility] INSUFFICIEN CY I361 NONRHEUMATI 04-04-2016 [place] [facility] TRICUSPID SERV [facility] INSUFFICIEN CY M2550 PAIN IN 03-26-2016 [facility] UNSPECIFIED [facility] [employer] M7521 BICIPITAL 03-19-2016 [place] TENDINITIS [place] RIGHT INTERNAL SHOULDER MED Z113 ENCOUNTER 03-13-2016 [facility], SCREEN LLC INFECTIONS SEXL MODE TRANSMISSN M778 OTHER 12-04-2015 [place] ENTHESOPATH VALLEY IES NOT INTERNAL ELSEWHERE MED CLASSIFIED 15883 UNSPECIFIED 07-11-2015 [facility] V[facility] 2167 [...] SKIN 7020 ACTINIC 07-11-2015 [facility] KERATOSIS 50690 INFLAMED 07-11-2015 [facility] SEBORRHEIC KERATOSIS V700 ROUTINE 06-27-2015 [facility] DEPT [email or web address] CARE FACL 80949 MORBID 06-20-2015 [facility]IATRIC SURGICAL 70971 PAIN IN 06-20-2015 [facility], SITE [facility] UNSPECIFIED 7823 EDEMA 06-20-2015 [facility] 40349 OTHER 06-20-2015 [facility] DYSPNEA AND [facility] RESPIRATORY ABNORMALITI ES 7871 HEARTBURN 06-20-2015 [facility] 7904 NONSPEC 06-20-2015 [facility] ELEVATION BARIATRIC OF LEVELS SURGICAL OF TRANSAMINAS E/LDH V4586 BARIATRIC 06-20-2015 [facility] SURGERY BARIATRIC STATUS SURGICAL V7612 OTHER 06-19-2015 [place] SCREENING MEDICAL MAMMOGRAM IMAGING ASS 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 MED 2689 UNSPECIFIED 06-12-2015 [facility] VITAMIN D [place] DEFICIENCY INTERNAL MED 5718 OTHER 06-12-2015 [facility] CHRONIC [place] NONALCOHOLI INTERNAL C LIVER MED DISEASE 7905 OTHER 06-12-2015 [facility] NONSPECIFIC [place] ABNORMAL INTERNAL SERUM MED ENZYME LEVELS 40635 UNSPEC 05-09-2015 [facility] DISORDERS PHYSICIANS BURSAE&TEND GROUP ONS SHOULDER REGION 7262 OTHER 05-09-2015 [facility] AFFECTIONS PHYSICIANS OF SHOULDER GROUP REGION NEC 14036 OBESITY, 05-04-2015 [facility] UNSPECIFIED OLOGY AND HEPATOL 3674 PRESBYOPIA 04-28-2015 [place] 20841 CHEST PAIN 04-28-2015 [facility] 25532 ABDOMINAL 04-25-2015 [place] [facility], COMMUNTIY UNSPECIFIED HOSPITA SITE 4019 UNSPECIFIED 04-16-2015 [place] [facility] HYPERTENSI[facility] INC N 5990 URINARY 04-16-2015 [facility], INFECTION [facility] SITE NOT SPECIFIED 7948 NONSPECIFIC 04-16-2015 [place] [facility] RESULTS INC LIVR FUNCTION STUDY 5739 UNSPECIFIED 04-14-2015 [facility] [place] DISORDER RADIOLOGY OF LIVER 7906 OTHER 04-14-2015 [place] [facility] ABNORMAL COMMUNTIY BLOOD HOSPITA CHEMISTRY 5939 UNSPECIFIED 04-06-2015 [place] DISORDER MEDICAL OF KIDNEY IMAGING ASS AND URETER 7891 HEPATOMEGAL 04-06-2015 [facility] Y OLOGY AND HEPATOL V140 PERSONAL 04-05-2015 [place] HISTORY OF [facility] ALLERGY TO HOSPITAL P [place] 48468 ABDOMINAL 04-03-2015 [facility] PAIN, GENERALIZED 5758 OTHER 04-01-2015 [place] SPECIFIED [facility] DISORDER OF HOSPITAL P GALLBLADDER 67607 OTHER 04-01-2015 [place] SPECIFIED MEDICAL DISORDER OF IMAGING ASS KIDNEY AND URETER 05498 ABDOMINAL 04-01-2015 [facility] RIGHT MEDICAL UPPER IMAGING ASS QUADRANT 67618 ABDOMINAL 04-01-2015 [place] PAIN, [facility] EPIGASTRIC HOSPITAL P 7295 PAIN IN 03-29-2015 [place] [facility] SOFT COMMUNTIY TISSUES OF HOSPITA LIMB V4589 OTHER 03-29-2015 [place] [facility] POSTSURGICA COMMUNTIY L STATUS HOSPITA OTHER 67205 OTHER 03-24-2015 [place] [facility] MALAISE AND COMMUNTIY FATIGUE HOSPITA V6700 FOLLOW-UP 03-21-2015 [facility] [place] EXAMINATION RADIOLOGY FOLLOWING UNSPEC SURGERY 24059 ESOPHAGEAL 03-20-2015 [place] [place] REFLUX ANESTHESIA GROUP PS 6256 FEMALE 03-20-2015 [facility] STRESS [facility] INCONTINENC HOSPITA E 47360 PAIN IN 03-20-2015 [facility] JOINT, BARIATRIC MULTIPLE SURGICAL SITES 48427 DIASTASIS 03-20-2015 [facility] OF MUSCLE COMMUNTIY HOSPITA 7892 SPLENOMEGAL 03-20-2015 [facility] Y COMMUNTIY HOSPITA V8543 BODY MASS 03-20-2015 [facility] INDEX COMMUNTIY 50.0-59.9 HOSPITA ADULT 2639 UNSPECIFIED 03-14-2015 [facility] PROTEIN-TEA HOSPITA [place]IE MALNUTRITIO N 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 MIGRAINE 03-07-2015 [facility] UNSP W/O BARIATRIC 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 MIGRAINOSUS 98766 OTHER 03-07-2015 [facility] URINARY BARIATRIC INCONTINENC SURGICAL E 6929 CONTACT 03-06-2015 DANIEL NGO DERMATITIS& OTHER ECZEMA DUE UNSPEC CAUSE 6822 CELLULITIS 03-02-2015 [facility] P V148 PERSONAL 03-02-2015 [facility] ALLERGY [facility] P SPEC MEDICINAL AGTS V571 OTHER 02-22-2015 [facility] THERAPY INC 2724 OTHER AND 02-20-2015 [facility] UNSPECIFIED COMMUNTIY HOSPITA HYPERLIPIDE LILIANE 7245 UNSPECIFIED 02-20-2015 [facility] BACKACHE COMMUNTIY HOSPITA V7283 OTHER 02-20-2015 [facility] SPECIFIED COMMUNTIY PRE-OPERATI HOSPITA VE EXAMINATION 2875 UNSPECIFIED 02-15-2015 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 12-30-2014 DANIEL Reddy INVLV MX SITES [place] 51220 PAIN IN 11-09-2014 [place] JOINT, MEDICAL SHOULDER IMAGING ASS REGION V5832 ENCOUNTER 11-09-2014 [facility] P 48299 PILAR CYST 11-02-2014 [facility] 15960 UNSPECIFIED 10-06-2014 [facility] INFE[facility] PHYS IN CCE & UNS SITE 7840 HEADACHE 10-06-2014 [place] [place] [facility] 92124 ATROPHIC 09-16-2014 [facility] GASTRITIS COMMUNITY WITHOUT HOSPITA MENTION OF HEMORRHAGE 89299 OTHER SPEC 09-16-2014 [facility] WITHOUT MENTION HEMORRHAGE 19601 DYSPHAGIA 09-16-2014 [place] UNSPECIFIED ANESTHESIA GROUP PS 6869 UNSPEC 08-17-2014 [facility] LOCAL INFECTION SKIN&SUBCUT ANEOUS TISSUE V7284 UNSPECIFIED 08-09-2014 [facility] PRE-OPERATI INC VE EXAMINATION 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 7019 UNSPECIFIED 08-04-2014 [facility] HYPERTROPHI C&ATROPHIC CONDITION SKIN 51350 OTHER 08-04-2014 [facility] SEBORRHEIC KERATOSIS 7851 PALPITATION 08-04-2014 [facility] [employer] MEDICAL G V7281 PRE-OPERATI 07-21-2014 [facility] [employer] CARDIOVASCU MEDICAL G LAR EXAMINATION 84028 PAINFUL 07-05-2014 [facility] BRYCE RESPIRATION V771 SCREENING 05-24-2014 [facility] DI[facility]ETES MELLITUS 470 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 4779 ALLERGIC 03-17-2014 [facility] RHINITIS CAUSE UNSPECIFIED 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 01-10-2014 [facility] MAXILLARY SINUSITIS V0481 NEED 01-06-2009 [facility] PROPHYLACTI [facility] C CENTRAL VACCINATION BANK ACCT &INOCULATIO N FLU 85215 PAIN IN 01-04-2009 [place] JOINT MEDICAL PELVIC IMAGING REGION AND ASSOCIATES THIGH 25576 DISPLCMT 01-04-2009 [place] LUMBAR MEDICAL INTERVERT 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 8460 SPRAIN AND 01-04-[address] [address] 8472 LUMBAR 01-04-2009 [facility] STRAIN INC 49287 CONTUSION 01-04-2009 [employer] BACK Eat Your Kimchi 06856 CONTUSION 01-04-2009 [employer] [address] OF 01-04-2009 [place] OCCURRENCE, MEDICAL HOME IMAGING ASSOCIATES E8859 FALL FROM 01-04-2009 [place] OTHER MEDICAL SLIPPING IMAGING TRIPPING OR ASSOCIATES [...] 48 -1 -0 [address] 70 1- 6- 00 00 IC ve [...] CY 4 MG TA BL ET VT 00 08 09 8. 2 00 CL Ac OM 59 -1 -0 00 00 IN ti ET 15 6- 8- 0 00 IC ve CARTY 30 20 20 43 ZI 71 17 17 96 PH NE 0 36 AR MA 25 CY MG TA BL ET VT 59 08 [...] 43 RA 30 [address] 5 60 AR DE MA CY 10 [...] 10 7- 1- [address] 47 20 20 42 01 17 17 [...] 0 CY MG CA PS UL E VT 65 [...] 1 70 PH CE AR TA MA CT CY NO PH #3 93 7. 8 [...] 5 25 PH CE AR TA MA CT CY NO PH OF CY 7. NT [...] 20 20 ED [address] NI 3 AR CH SO MA AE LO CY L NE S 4 MG DO SE PK CY 59 02 02 00 21 7 CL 18 GA Ac CL 74 -1 -2 .0 IN 75 IN ti OB 60 2- 6- 00 IC 11 EY ve EN 17 20 20 ZA [address] VT 6 AR CH IN MA AE [...] Procedure DOS Code Location Performer Comment LIPID 58421 [facility] [facility] PANEL 7 [facility] INC INC COMPREHEN 49409 [place] [facility] SIVE 7 [facility] METABOLIC INC INC PANEL IIV4 VACC 59512 [place] ARSLAN SPLIT 7 [facility] VIRUS 0.5 INTERNAL ML DOS MED FOR IM USE COLLECTIO 31296 [place] [facility] N VENOUS 7 [facility] BLOOD INC INC VENIPUNCT URE BLOOD 87654 [place] [facility] COUNT 7 [facility] COMPLETE INC INC AUTO&AUTO DIFRNTL WBC 25 03810 [place] [facility] HYDROXY 7 [facility] INCLUDES INC INC FRACTIONS IF PERFORMED IM ADM 87407 [place] ARS[facility] PRQ ID 7 [facility] SUBQ/IM INTERNAL NJXS 1 MED VACCINE THERAPEUT 71598 [place] [facility] IC 7 [facility] PROPHYLAC INC INC TIC/DX INJECTION SUBQ/[place] [address] [place] [facility] MAXILLOFA 7 [facility] CIAL W/O INC INC CONTRAST MATERIAL UNCLASSIF J3490 [place] [facility] IED DRUGS 7 [place] [address] [place] [facility] HEAD/BRAI 7 [facility] N W/O INC INC CONTRAST MATERIAL GROUND A0425 [facility] AMBULANCE PER SERVICE SERVICE STATUTE MILE AMBULANCE A0429 [facility] SERVICE 7 AMBULANCE AMBULANCE BLS SERVICE SERVICE EMERGENCY TRANSPORT SCREENING 32766 [place] [facility] 7 [facility] MAMMOGRAP INC INC HY BI 2-VIEW BREAST INC CAD SCREENING G0202 [facility] 7 MEDICAL MAMMOGRAP IMAGING HY WILBERT ASS INCL CAD WHEN PERFORMD NERVE 64218 CINTHYA RODRIGUEZ CONDUCTIO 7 N N STUDIES NEUROLOGY 9-10 STUDIES NEEDLE 30843 [employer] EMG EA 7 N EXTREMTY NEUROLOGY W/PARASPI NL AREA COMPLETE NEEDLE 42553 PaytellerLICOW RODRIGUEZ EMG EA 7 N EXTREMTY NEUROLOGY W/PARASPI NL AREA COMPLETE NERVE 67263 [employer] CONDUCTIO 7 N N STUDIES NEUROLOGY 9-10 STUDIES OPHTH 52689 [email or web address] MEDICAL 7 XM&EVAL COMPRHNSV ESTAB PT 1/> ESOPHAGEA 48440 DOMINICK Ortega 7 [facility] HEALTH MOTILITY [facility] STUDY W/INTERP& [place] [address] [facility] ABDOMEN & 7 MEDICAL PELVIS IMAGING W/O ASS CONTRAST MATERIAL BLOOD 29785 [place] COUNT 7 [facility] COMPLETE INC AUTO&[place] [address] [place] LIPASE 7 [facility] INC INC URNLS DIP 73557 [place] [facility] 7 [facility] STICK/TAB INC INC LET REAGENT AUTO MICROSCOP Y UNCLASSIF J3490 [place] IED DRUGS 7 [facility] INC INC COMPREHEN 78328 [facility] [facility] SIVE 7 [facility] [address] [facility] [facility] AMYLASE 7 [facility] INC INC URINE 81724 [place] 7 [facility] TEST INC INC VISUAL COLOR CMPRSN METHS SPACR A4627 MT MED MT MED BAG/RESRV 7 EQUIPMENT EQUIPMENT OR W/WO INC INC MASK W/METRD DOSE INHAL NITRIC 25354 [facility] OXIDE 7 [facility] [place] GAS CO DETERMINA TION DEMO&/VIPUL 92421 [facility] L OF PT 7 [facility]IZ [facility] [place] AERSL CO GEN/NEB/I NHLR/IP SPMTRY 87865 [facility] W/VC 7 [facility] EXP[employer] [place] Y ABHI CO W/WO MXML VOL VNTJ XTRNL ECG 09050 [place] [facility] & 48 HR 7 [facility] RECORDING INC INC XTRNL ECG 58144 [place] MATUTE [facility] S RHYTHM P W/I&R UP TO 48 HRS RADIOLOGI 50026 [place] HARLEEN C 7 MEDICAL EXAMINATI IMAGING ON KNEE 3 ASS VIEWS EXTERNAL 67977 [place] [facility] ECG 7 [facility] SCANNING INC INC ANALYSIS REPORT COMPREHEN 26659 [place] [facility] SIVE 7 [facility] METABOLIC INC INC PANEL CREATINE 17732 [place] [facility] KINASE MB 7 [facility] [place] [address] [facility] [facility] TROPONIN 7 [facility] QUANTITAT INC INC SABIHA CREATINE 42785 [place] [facility] KINASE 7 [facility] TOTAL INC INC ECG 82851 [facility] ROUTINE 7 [facility] W/LEAST P 12 LDS I&R ONLY ECG 67014 [place] [facility] ROUTINE 7 [facility] ECG INC INC W/LEAST 12 LDS TRCG ONLY W/O I&R EGD 82473 [facility] DANIEL TRANSORAL 7 [facility] BIOPSY MEDICAL SINGLE/MU GROUP LTIPLE ANES 22742 [facility] UPPER GI 7 [place] ENDOSCOPY ANESTHESI PROXIMAL A TO DUODENUM ECG 10108 [facility] ROUTINE 7 HEART ECG SPECIALIS W/LEAST TS, 12 LDS I&R ONLY ECG 74173 [facility] ROUTINE 7 PHYSICIAN ECG S, PLLC W/LEAST 12 LDS I&R ONLY ECG 70295 [facility] ROUTINE 7 [facility] ECG INC INC W/LEAST 12 LDS TRCG ONLY W/O I&[place] [address] [place] [facility] TROPONIN 7 [facility] QUANTITAT INC INC SABIHA COMPREHEN 77954 [place] [facility] SIVE 7 [facility] METABOLIC INC INC PANEL COLLECTIO 05437 [facility]IAN MORAVIAN N VENOUS 7 [facility] BLOOD [facility] VENIPUNCT URE ECG 43490 [facility]OR[facility]IAN MORAVIAN ROUTINE 7 [facility] ECG [facility] W/LEAST 12 LDS TRCG ONLY W/[place] [address] [facility], PICKLESIM SURG 7 [facility] JR PATHOLOGY GROSS&BRYCE ROSCOPIC EXAM COLPOSCOP 36144 [facility] KAM Mercedes CERVIX 7 PHYSICIAN BX CERVIX S GROUP & [place] [address] MOR[facility]IAN MORAVIAN TRACT 7 [facility] UPPER [facility] W/WO DELAYED IMAGES W/KUB UNCLASSIF J3490 [place] [facility] IED DRUGS 7 [facility] [place] [address] [facility] HEAD/BRAI 7 MEDICAL MEDICAL N W/O IMAGING IMAGING CONTRAST ASS ASS MATERIAL COLLECTIO 93696 [facility] [facility] N VENOUS 7 [facility] [place]LO[place] [address] [place] [facility] GAMMAGLOB 7 [facility] ULIN IGA INC INC IGD IGG IGM EACH COMPREHEN 97823 [place] [facility] SIVE 7 [facility] METABOLIC INC INC PANEL LIPID 28244 [place] [facility] PANEL 7 [facility] INC INC GONADOTRO 29698 [place] PIN 7 [facility] FOLLICLE INC INC STIMULATI NG HORMONE GONADOTRO 12750 [place] [facility] PIN 7 [facility] LUTEINIZI INC INC NG HORMONE BLOOD 71649 [place] COUNT 7 [facility] COMPLETE INC INC AUTO&AUTO DIFRNTL WBC BLOOD 55941 [place] [facility] COUNT 7 [facility] COMPLETE INC INC AUTO&[place] [address] [place] INFUSION 7 [facility] THERAPY/P INC INC ROPHYLAXI S /DX 1ST TO 1 HR COMPREHEN 05945 [place] [facility] SIVE 7 [facility] METABOLIC INC INC PANEL URNLS DIP 33940 [place] [facility] 7 [facility] STICK/TAB INC [place] [address] [facility] INFUSION 7 [facility] THERAPY INC INC PROPHYLAX IS/DX EA HOUR UNCLASSIF J3490 [place] [facility] IED DRUGS 7 [facility] INC INC UNCLASSIF J3490 [place] [facility] IED DRUGS 7 [facility] [place] [place] [address] [facility] BUX DX/THER 7 MD RHIANNON, SBST PSC INTRLMNR LMBR/SAC W/IMG GDN IADNA 56639 P&[facility] TOD ESQUIVEL HUMAN 7 LLC [place] VIRUS HIGH-RISK TYPES URNLS DIP 22222 [facility] HUMPHREY 7 PHYSICIAN STICK/TAB S GROUP LET RGNT NON-AUTO W/O MICRSCP CYTP 19931 P&[facility] TOD ESQUIVEL CERVICAL/ 7 LLC VAGINAL REQ INTERP PHYSICIAN CYTP C/V 27045 [facility], TOD AUTO THIN 7 LLC LYR PREPJ SCR MNL RESCR PHYS ECG 02677 [place] [facility] ROUTINE 7 [facility] ECG INC INC W/LEAST 12 LDS TRCG ONLY W/O I&R ANTINUCLE 00915 [place] [facility] AR 7 [facility] ANTIBODIE INC INC S SANNA BLOOD 05248 [place] [facility] COUNT 7 [facility] COMPLETE INC INC AUTO&AUTO DIFRNTL WBC PROTEIN 86612 [place] [facility] ELECTROPH 7 [facility] ORETIC INC INC FRACTJ&QU ANTJ SERUM COMPREHEN 64568 [place] [facility] SIVE 7 [facility] METABOLIC INC INC PANEL COLLECTIO 49091 [place] [facility] N VENOUS 7 [facility] BLOOD INC INC VENIPUNCT URE URNLS DIP 79771 [place] [facility] 7 [facility] STICK/TAB INC INC LET RGNT AUTO W/O MICROSCOP Y COLLECTIO 46869 [place] [facility] N VENOUS 7 [facility] BLOOD [place] [address] [place] [facility] UREA 7 [facility] NITROGEN INC INC QUANTITAT SABIHA UNCLASSIF J3490 [place] [facility] IED DRUGS 7 [facility] INC INC CT THORAX 26053 [place] [facility] 7 [facility] W/CONTRAS INC INC T MATERIAL CREATININ 98188 [place] [facility] E BLOOD 7 [facility] [place] [place] [address] Y[facility] DUFF DX/THER 7 MD RHIANNON, AGT PVRT PSC FACET JT LMBR/SAC 1 LEVEL NJX 41328 [facility] DUFF DX/THER 7 MD RHIANNON, AGT PVRT PSC FACET JT LMBR/SAC 2ND LEVEL NJX 11831 [facility] DUFF DX/THER 7 MD RHIANNON, AGT PVRT PSC FACET JT LMBR/SAC 3+ LEVEL ECG 78247 [place] [facility] ROUTINE 7 [facility] ECG INC INC W/LEAST 12 LDS TRCG ONLY W/O I&R ECG 25985 [facility] ROUTINE 7 PHYSICIAN ECG S GROUP W/LEAST 12 LDS I&R ONLY ECG 77766 [place] [facility] ROUTINE 7 [facility] W/LEAST P 12 LDS I&R ONLY ECG 04589 [place] [facility] ROUTINE 7 [facility] ECG INC INC W/LEAST 12 LDS TRCG ONLY W/O I&R THERAPEUT 43209 [place] [facility] IC 7 [facility] INJECTION INC INC IV PUSH EACH NEW DRUG THER 44736 [place] [facility] PROPH/DX 7 [facility] NJX IV INC INC PUSH SINGLE/1S T SBST/DRUG RADEX 75098 [place] [facility] ABDOMEN 7 [facility] COMPL INC INC W/DCBTS&/ ERC VIEWS BLOOD 33459 [place] [facility] COUNT 7 [facility] COMPLETE INC INC AUTO&[place] [address] [place] [facility] LIPASE 7 [facility] INC INC CREATINE 11266 [facility] [facility] KINASE 7 [facility] [place] [address] [place] [facility] TROPONIN 7 [facility] QUANTITAT INC INC SABIHA UNCLASSIF J3490 [facility] [facility] IED DRUGS 7 [place] [address] [place] [facility] AMYLASE 7 [facility] INC INC CREATINE 27910 [place] [facility] KINASE MB 7 [facility] FRACTION INC INC ONLY COMPREHEN 20243 [facility] [facility] SIVE 7 [facility] METABOLIC INC INC PANEL ECG 62246 [place] [facility] ROUTINE 7 [facility] ECG INC INC W/LEAST 12 LDS TRCG ONLY W/O I&R ECG 19274 [facility] ROUTINE 7 PHYSICIAN ECG S GROUP W/LEAST 12 LDS I&R ONLY ECG 06692 [facility] ROUTINE 7 PHYSICIAN ECG S GROUP W/LEAST 12 LDS I&R ONLY XTRNL ECG 37551 [place] [facility] & 48 HR 7 [facility] RECORDING INC INC ECG 82099 [facility] ROUTINE 7 PHYSICIAN ECG S, PLLC W/LEAST 12 LDS I&R ONLY RADIOLOGI 20184 [facility] C EXAM 7 PHYSICIAN CHEST 2 S, PLLC VIEWS FRONTAL&L ATERAL ECG 11920 [place] [facility] ROUTINE 7 [facility] ECG INC INC W/LEAST 12 LDS TRCG ONLY W/O I&R CREATINE 70372 [place] [facility] KINASE 7 [facility] TOTAL INC INC BLOOD 56529 [place] [facility] COUNT 7 [facility] COMPLETE INC INC AUTO&AUTO DIFRNTL WBC COMPREHEN 07356 [place] [facility] SIVE 7 [facility] METABOLIC INC INC PANEL CREATINE 34555 [facility] KINASE MB 7 [facility] FRACTION INC INC ONLY AMB A0427 [facility] SERVICE 7 AMBULANCE AMBULANCE ALS SERVICE SERVICE EMERGENCY TRANSPORT LEVEL 1 GROUND A0425 [facility] MILEAGE 7 AMBULANCE AMBULANCE [place] [address] [place] [facility] TROPONIN 7 [facility] QUANTITAT INC INC SABIHA MRI 03178 [facility] SPINAL 7 CANAL ORTHOPAED LUMBAR ICS PSC W/O CONTRAST MATERIAL RADEX 41569 [facility] SPINE 7 [place] LUMBOSACR ORTHOPAED AL 2/[address] [place] [address] [facility] CERVICAL 7 MEDICAL MEDICAL SPINE W/O IMAGING IMAGING CONTRAST ASS ASS MATERIAL ECG 51599 [place] [facility] ROUTINE 7 [facility] ECG INC INC W/LEAST 12 LDS TRCG ONLY W/O I&R ECG 16294 [place] [facility] ROUTINE 7 [facility] W/LEAST P 12 LDS I&[place] [address] [place] C[place] HEAD/BRAI 7 MEDICAL N W/O IMAGING CONTRAST ASS MATERIAL COLLECTIO 71911 [place] [facility] N VENOUS 7 [facility] [place]LO[place] [address] [place] [facility] FOLIC 7 [facility] ACID INC INC SERUM 25 75301 [place] [facility] HYDROXY 7 [facility] INCLUDES INC INC FRACTIONS IF PERFORMED CYANOCOBA 52353 [place] [facility] LYUBOV 7 [facility] VITAMIN INC INC B-12 THERAPEUT 77695 [place] [facility] IC 7 [facility] PROPHYLAC INC INC TIC/DX INJECTION SUBQ/IM UNCLASSIF J3490 [place] [facility] IED DRUGS 7 [facility] INC INC UNCLASSIF J3490 [place] [facility] IED DRUGS 7 [facility] INC INC URNLS DIP 73687 [place] [facility] 7 [facility] STICK/TAB INC INC LET REAGENT AUTO MICROSCOP Y DESTRUCTI 98653 [facility] BENIGN 7 LESIONS UP [place] 14 [place] [address] MORAVIAN MORAVIAN TRACT 7 [facility] UPPER [facility] W/WO DELAYED IMAGES W/KUB RADEX 22954 [place] SAQIB ABDOMEN 1 7 MEDICAL [place] [address] [place] [facility] INFUSION 7 [facility] THERAPY/P INC INC ROPHYLAXI S /DX 1ST TO 1 HR TX PROC G0238 [place] [facility] IMPRV 7 [facility] RESP INC INC FUNCT NOT G0237 FCE-FCE 15MIN BLOOD 04089 [place] [facility] COUNT 7 [facility] COMPLETE INC INC AUTO&AUTO DIFRNTL WBC COMPREHEN 36857 [place] [facility] SIVE 7 [facility] METABOLIC INC INC PANEL RAD EXP G9500 [place] SAQIB INDICES/E 7 MEDICAL XP TM & IMAGING NUMB ASS FLUORO IMAGES DOC RADEX 59933 [place] SA[facility] ESOPHAGUS 7 MEDICAL IMAGING ASS INJECTION J1100 MORAVIAN MORAVIAN [address] [place] [address] DEXAMETHO [facility] SONE SODIUM PHOSPHATE 1 MG INJECTION J1170 MORAVIAN MORAVIAN [address] [place] [address] HYDROMORP [facility] KURTIS UP TO 4 MG INJECTION J1650 MORAVIAN MORAVIAN [address] [place] [address] ENOXAPARI [facility] N SODIUM 10 MG INJECTION J0330 MOR[facility]IAN MORAVIAN 7 [facility] SUCCINYLC [facility] HOLINE CHLORIDE UP TO 20 MG INJECTION J2405 MOR[facility]IAN MORAVIAN 7 [facility] ONDANSETR [facility] ON HCL PER 1 MG ANES 42261 [facility] INTRAPERI 7 [place] TONEAL ANESTHESI UPPER A ABDOMEN W/LAPS NOS INJECTION J2704 MOR[facility]IAN MORAVIAN PROPOFOL 7 [facility] 10 MG [facility] INJECTION J2710 MOR[facility]IAN MORAVIAN 7 [facility] NEOSTIGMI [facility] NE METHYLSUL FATE UP TO 0.5 MG INJECTION J3010 MOR[facility]IAN MORAVIAN FENTANYL 7 [facility] CITRATE [facility] 0.1 MG LAPS RPR 55566 MORAVIAN GARCIA PARAESPHG [address] [place] [address] L HRNA MEDICAL INCL GROUP FUNDPLSTY W/O MESH COLLECTIO 33093 MORAVIAN MORAVIAN N VENOUS 7 [facility] BLOOD [facility] VENIPUNCT URE GLUCOSE 85716 MORAVIAN MORAVIAN QUANTITAT [address] [place] [address] SABIHA BLOOD [facility] XCPT REAGENT STRIP HEMOGLOBI 74553 MORAVIAN MORAVIAN N [address] [place] [address] GLYCOSYLA [facility] LANEY A1C BLOOD 56783 MORAVIAN MORAVIAN COUNT 7 [facility] COMPLETE [facility] AUTOMATED ECG 99575 MORAVIAN MORAVIAN ROUTINE 7 [facility] ECG [facility] W/LEAST 12 LDS TRCG ONLY W/O I&R ECG 40729 MORAVIAN ANNA ROUTINE 7 [facility] ECG MEDICAL W/LEAST GROUP 12 LDS I&R ONLY ECG 12797 [place] CHAVEZ JR ROUTINE 6 [facility] W/LEAST P 12 LDS I&R ONLY ECG 70979 [facility] ROUTINE 6 [facility] ECG INC INC W/LEAST 12 LDS TRCG ONLY W/[place] [address] [facility] [facility] INFUSION 6 [facility] THERAPY/P INC INC ROPHYLAXI S /DX 1ST TO 1 HR RADEX 42389 [facility] ABDOMEN 6 MEDICAL MEDICAL COMPL IMAGING IMAGING W/DCBTS&/ ASS ASS ERC VIEWS THERAPEUT 33643 [facility] [facility] IC 6 [facility] INJECTION INC INC IV PUSH EACH NEW DRUG RADIOLOGI 14960 [facility] C EXAM 6 MEDICAL MEDICAL CHEST 2 IMAGING IMAGING VIEWS ASS ASS FRONTAL&[place] [address] [facility] LIPASE 6 [facility] INC INC BLOOD 41006 [facility] [facility] COUNT 6 [facility] COMPLETE INC INC AUTO&[place] [address] [facility] AMYLASE 6 [facility] INC INC COMPREHEN 79873 [facility] SIVE 6 [facility] METABOLIC INC INC PANEL BLOOD 08906 [place] [facility] OCCULT 6 [place] PEROXIDAS INTERNAL E ACTV MED QUAL FECES 1 DETER GLUC BLD 91959 [facility] [facility] GLUC MNTR 6 [facility] DEV INC [place] [address] [place] [facility] HEAD/BRAI 6 MEDICAL N W/O IMAGING CONTRAST ASS MATERIAL THERAPEUT 23662 [facility] IC 6 [facility] PROPHYLAC INC INC TIC/DX INJECTION SUBQ/IM RADIOLOGI 57331 [facility] C 6 [facility] EXAMINATI INC INC ON PELVIS 1/2 VIEWS RADEX 57732 [facility] SPINE 6 [facility] LUMBOSACR INC INC AL MINIMUM 4 VIEWS RADEX 33830 [facility] SACRUM & 6 [facility] COCCYX INC INC MINIMUM 2 VIEWS URINE 36599 [facility] 6 [facility] TEST INC [place] [address] [facility] STREPTOCO 6 [facility] CCUS INC INC GROUP A BLOOD 36356 [facility] [facility] COUNT 6 [facility] COMPLETE INC INC AUTO&AUTO DIFRNTL WBC CUL BACT 69903 [place] [facility] XCPT 6 [facility] URINE INC INC BLOOD/STO OL AEROBIC ISOL RADIOLOGI 28113 [facility] C EXAM 6 MEDICAL ADRIANNA CHEST 2 IMAGING VIEWS ASS FRONTAL&L ATERAL RADEX 97006 [facility] [facility] SINUSES 6 [facility] PARANASAL INC INC COMPL MINIMUM 3 VIEWS IAADI 02970 [facility] INFLUENZA 6 [facility] B VIRUS INC IAADI 39514 [facility] [facility] INFFLUENZ 6 [facility] A VIRUS INC INC DECALCIFI 97594 [facility] CATION 6 [facility] ER [facility] [place] [address] [facility] SURG 6 [facility] ER [facility] PATHOLOGY GROSS&BRYCE ROSCOPIC EXAM ANESTHESI 64089 [facility] FEEBACK A NOSE & 6 ANESTH ACCESSORY OF THE SINUSES BLUE NOS ECG 05222 [place] [facility] ROUTINE 6 [facility] ECG INC INC W/LEAST 12 LDS TRCG ONLY W/O I&R ECG 95534 [place] ROUTINE 6 [facility] W/LEAST P 12 LDS I&R ONLY BLOOD 07275 [place] COUNT 6 [facility] COMPLETE INC INC AUTO&AUTO DIFRNTL WBC COMPREHEN 20645 [place] SIVE 6 [facility] METABOLIC INC INC PANEL COLLECTIO 53930 [place] N VENOUS 6 [facility] BLOOD INC INC VENIPUNCT URE ANTIBODY 84708 [place] HERPES 6 [facility] SMPLX INC INC TYPE 1 ANTIBODY 00761 [place] VIRUS NOT 6 [facility] [place] [address] [place] MAXILLOFA 6 [facility] CIAL W/[place] [address] [place] CERVICAL 6 [facility] SPINE W/[place] [address] [facility] HEAD/BRAI 6 MEDICAL N W/O IMAGING CONTRAST ASS MATERIAL URINE 10325 [place] [facility] 6 [facility] TEST INC INC VISUAL COLOR CMPRSN METHS COMPRE 63847 MAEGAN ISSA AUDIOMETR 6 JARON JARON Y THRESHOLD EVAL SP RECOGNIJ TYMPANOME 28951 MAE[place] ISSA TRY 6 JARON JARON DISTORT 04430 MAEGAN ISSA PRODUCT 6 JARON JARON EVOKED OTOACOUST IC EMISNS LIMITD PULMONARY 04645 [place] NO[place] STRESS 6 MEDICAL TESTING SERV SIMPLE FOUNDATIO N GAS 87910 [place] DILUT/WAS 6 MEDICAL MEDICAL HOUT LUNG SERV SERV VOL W/WO FOUNDATIO FOUNDAT[place] DISTRIB N N VENT&[place] [address] [place] DIFFUSING 6 MEDICAL CAPACITY SERV FOUNDATIO N ELIG CLIN G8427 STAMPING RODRIGUEZ TRI ATTSTS 6 GROUND DOC M REC FAMILY OBTD CLINI UPD/REV PT MEDS ECG 71081 [place] ROUTINE 6 [facility] W/LEAST P 12 LDS I&R ONLY IM ADM 76946 [facility] PRQ ID 6 [facility] SUBQ/IM HLTH DEPT HLTH DEPT NJXS 1 JAZZ JAZZ VACCINE TDAP 15309 [facility] VACCINE 7 6 [facility] YRS/> IM HLTH DEPT TH DEPT JAZZ JAZZ COLLECTIO 26879 [place] N VENOUS 6 [facility] BLOOD INC INC VENIPUNCT URE BLOOD 40820 [place] COUNT 6 [facility] COMPLETE INC INC AUTO&AUTO DIFRNTL WBC SYPHILIS 12199 [facility] TEST 6 [facility] DISTRICT NON-TREPO TH DEPT TH DEPT NEMAL [facility] ANTIBODY QUAL BLOOD 45084 [place] OCCULT 6 [facility] PEROXIDAS INC INC E ACTV QUAL FECES 1-3 SPEC IM ADM 53426 [facility] PRQ ID 6 [facility] DISTRICT SUBQ/IM HLTH DEPT TH DEPT NJXS EA JAZZ JAZZ VACCINE SKIN TEST 11587 [facility] 6 [facility] TH DEPT HLTH DEPT SIS JAZZ JAZZ INTRADERM AL XTRNL ECG 80878 [place] [facility] 6 [facility] S RHYTHM P W/I&R UP TO 48 HRS PROF SVCS 60547 [facility] MAR ALLG 6 [facility] IMMNTX X OF [place] W/PRV CO ALLGIC XTRCS NJXS BLOOD 44513 [place] COUNT 6 [facility] COMPLETE INC INC AUTO&AUTO DIFRNTL WBC ANTINUCLE 34791 [place] AR 6 [facility] ANTIBODIE INC INC S SANNA SPMTRY 24681 [facility] MAR W/VC 6 [facility] EXPIRATOR OF [place] Y ABHI CO W/WO MXML VOL VNTJ ECG 71057 [place] ROUTINE 6 [facility] W/LEAST P 12 LDS I&R ONLY BLOOD 35602 [place] COUNT 6 [facility] RETICULOC INC INC YTE AUTOMATED NITRIC 45001 [facility] MAR OXIDE 6 [facility] [place] GAS CO DETERMINA TION GROUND A0425 [facility] MILEAGE 6 AMBULANCE PATY PER SERVICE STATUTE MILE AMBULANCE A0429 [facility] SERVICE 6 AMBULANCE PATY BLS SERVICE EMERGENCY TRANSPORT SEDIMENTA 79542 [place] TION RATE 6 [facility] RBC INC INC NON-AUTOM ATED RHEUMATOI 52075 [place] Mor[place] FACTOR 6 [facility] QUANTITAT INC INC SABIHA SEDIMENTA 39651 [place] TION RATE 6 [facility] RBC INC INC NON-AUTOM ATED BLOOD 02459 [place] COUNT 6 [facility] RETICULOC INC INC YTE AUTOMATED COLLECTIO 12051 [place] Gutierrez VENOUS 6 [facility] BLOOD INC INC VENIPUNCT URE TECHNETIU A9503 [place] TC-99M 6 [facility] MEDRONATE INC INC DX UP TO 30 MCI BONE 43047 [place] &/JOINT 6 [facility] IMAGING INC INC WHOLE BODY BASIC 81966 [place] METABOLIC 6 [facility] PANEL INC INC CALCIUM TOTAL BLOOD 80089 [place] COUNT 6 [facility] COMPLETE INC INC AUTO&AUTO DIFRNTL WBC RADIOLOGI 92829 [facility] C EXAM 6 MEDICAL MEDICAL CHEST 2 IMAGING IMAGING VIEWS ASS ASS FRONTAL&L ATERAL ANES 74149 [facility] LOWER 6 ANESTHESI INTESTINE A GROUP PS ENDOSCOPY DISTAL DUODENUM GONADOTRO 72819 [place] [facility] PIN 6 [facility] FOLLICLE [place] [address] [place] [facility] THYROXINE 6 [facility] TOTAL INC INC COLLECTIO 03739 [place] N [facility]ENOUS 6 [facility] [place] [address] [place] THYROID 6 [facility] STIMULATI INC INC NG HORMONE TSH THYROID 70237 [place] HORM 6 [facility] UPTK/THYR INC INC OID HORMONE BINDING RATIO GONADOTRO 26602 [place] PIN 6 [facility] LUTEINIZI INC INC NG HORMONE ECG 32680 [place] ROUTINE 6 [facility] W/LEAST P 12 LDS I&R ONLY GROUND A0425 [facility] MILEAGE 6 AMBULANCE KILO PER SERVICE STATUTE MILE RADIOLOGI 11090 [facility] C 6 MEDICAL MEDICAL EXAMINATI IMAGING IMAGING ON CHEST ASS ASS SINGLE VIEW FRONTAL AMB A0427 [facility] SERVICE 6 AMBULANCE KILO ALS SERVICE EMERGENCY TRANSPORT LEVEL 1 PREPJ& 07854 [facility] MAR ALLERGEN 6 [facility] IMMUNOTHE OF TRE PEREZ CO 1/[place] [address] [place] INFUSION 6 [facility] THERAPY INC [place] [address] [place] HEAD/BRAI 6 [facility] N W/[place] [address] [place] TROPONIN 6 [facility] QUANTITAT INC INC SABIHA CREATINE 39900 [place] KINASE MB 6 [facility] FRACTION INC INC ONLY COMPREHEN 98070 [place] SIVE 6 [facility] METABOLIC INC INC PANEL ECG 81524 [place] GIOVANI ROUTINE 6 [facility] W/LEAST P 12 LDS I&[place] [address] [place] INFUSION 6 [facility] THERAPY/P INC INC ROPHYLAXI S /DX 1ST TO 1 HR ECG 21836 [place] ROUTINE 6 [facility] ECG INC INC W/LEAST 12 LDS TRCG ONLY W/O I&[place] [address] [place] CERVICAL 6 [facility] SPINE W/O INC INC CONTRAST MATERIAL CREATINE 87720 [place] KINASE 6 [facility] TOTAL INC INC BLOOD 79581 [place] COUNT 6 [facility] COMPLETE INC INC AUTO&AUTO DIFRNTL WBC RADIOLOGI 72752 [place] C 6 [facility] EXAMINATI INC INC ON KNEE 3 VIEWS PERCUTANE 11710 ALLER[facility] ROS[facility] MAR OUS TESTS 6 [facility] [place] W/ALLERGE CO LEO EXTRACTS INTRACUTA 12494 ALLERGY ROS[facility] MAR NEOUS 6 PARTNERS TESTS OF [place]LE[place] W/ALLERGE CO LEO EXTRACTS SPMTRY 08027 [facility] MAR W/VC 6 PARTNERS EXPIRATOR OF [place] Y ABHI CO W/WO MXML VOL VNTJ SPACR A4627 [facility] KRAS[facility] BAG/RESRV 6 EQUIPMENT [facility] OR W/WO INC MASK W/METRD DOSE INHAL NITRIC 79652 ALLER[facility] ROS[facility] MAR OXIDE 6 [facility] [place] [address] [facility] KAM TRANSVAGI 6 PHYSICIAN MEAGAN NAL S GROUP ECG 59543 [place] CHAVEZ JR ROUTINE 6 [facility] W/LEAST P 12 LDS I&R ONLY IADNA 92218 [place] CHLAMYDIA 6 [facility] INC INC TRACHOMAT IS AMPLIFIED PROBE TQ IADNA 43791 [place] NEISSERIA 6 [facility] INC INC GONORRHOE [place] [address] [facility] [place] ANDREWS TRACT 6 RADIOLOGY RHO UPPER W/WO DELAYED IMAGES W/KUB ECG 22889 [place] ROUTINE 6 [facility] W/LEAST P 12 LDS I&R ONLY RADIOLOGI 95510 [place] ALL C 6 MEDICAL EXAMINATI IMAGING ON CHEST ASS SINGLE VIEW FRONTAL ELECTROEN 71155 CINTHYA RODRIGUEZ SHABANA CEPHALOGR 6 N AM W/REC NEUROLOGY AWAKE&ASL EEP ECG 94759 [place] ROUTINE 6 [facility] W/LEAST P 12 LDS I&[place] [address] [facility] ABDOMEN & 6 MEDICAL MEDICAL PELVIS IMAGING IMAGING W/CONTRAS ASS ASS T MATERIAL ELECTROEN 69531 [facility] CEPHALOGR 6 N N AM W/REC COMMUNTIY COMMUNTIY AWAKE&[facility] HOSPITA WSY RADEX 73654 [facility] ALL SPINE 6 MEDICAL THORACIC IMAGING 2 VIEWS ASS ECG 67048 [place] CHAVE[place] JR ROUTINE 6 [facility] W/LEAST P 12 LDS I&R ONLY RADIOLOGI 63669 [place] ALL C 6 MEDICAL EXAMINATI IMAGING ON CHEST ASS SINGLE VIEW FRONTAL COMPUTER- 97303 [place] HARLE[place] AIDED 6 MEDICAL ADRIANNA DETECTION IMAGING ASS SCREENING MAMMOGRAP HY SCREENING G0202 [place] HARLEEN 6 MEDICAL ADRIANNA MAMMOGRAP IMAGING HY WILBERT ASS INCL CAD WHEN PERFORMD COMPREHEN 20957 [place] [facility] SIVE 6 [facility] [address] [place] LACTATE 6 [place] [address] [place] TROPONIN 6 [facility] QUANTITAT INC INC SABIHA URNLS DIP 52324 [place] [facility] 6 [facility] STICK/TAB INC INC LET REAGENT AUTO MICROSCOP Y ECG 87153 [place] JR ROUTINE 6 [facility] W/LEAST P 12 LDS I&R ONLY ECG 18670 [place] ROUTINE 6 [facility] ECG INC INC W/LEAST 12 LDS TRCG ONLY W/O I&[place] [address] [place] INFUSION 6 [facility] THERAPY/P INC INC ROPHYLAXI S /DX 1ST TO 1 HR RADEX ABD 34951 SEJAL CERRATO ALL COMPL 6 MEDICAL AQT ABD IMAGING W/S/E/D ASS VIEWS 1 VIEW CH BLOOD 05635 [place] [facility] COUNT 6 [facility] COMPLETE INC INC AUTO&[place] [address] [place] INFUSION 6 [facility] THERAPY/P INC INC ROPHYLAXI S /DX 1ST TO 1 HR ECG 90761 [place] ROUTINE 6 [facility] ECG INC INC W/LEAST 12 LDS TRCG ONLY W/O I&R RADIOLOGI 24813 SEJ[facility] CERR[facility] ALL C EXAM 6 MEDICAL CHEST 2 IMAGING VIEWS ASS FRONTAL&L ATERAL ECG 25360 [place] ROUTINE 6 [facility] W/LEAST P 12 LDS I&R ONLY BLOOD 69516 [place] COUNT 6 [facility] COMPLETE INC INC AUTO&AUTO DIFRNTL WBC CULTURE 22069 [place] BACTERIAL 6 [facility] INC INC QUANTTATI VE COLONY COUNT URINE CREATINE 99722 [place] KINASE 6 [facility] TOTAL INC INC URNLS DIP 03011 [place] [facility] 6 [facility] STICK/TAB INC INC [place] [address] [place] TROPONIN 6 [facility] QUANTITAT INC INC SABIHA CREATINE 94471 [place] KINASE MB 6 [facility] FRACTION INC INC ONLY URINE 08247 [place] [facility] 6 [facility] TEST INC INC VISUAL COLOR CMPRSN METHS COMPREHEN 90685 [place] SIVE 6 [facility] METABOLIC INC INC PANEL AMB A0427 [facility] SERVICE 6 AMBULANCE AMBULANCE ALS SERVICE SERVICE EMERGENCY TRANSPORT LEVEL 1 GROUND A0425 [facility] MILEAGE 6 AMBULANCE AMBULANCE PER SERVICE SERVICE STATUTE MILE RADEX ABD 63337 SEJAL CERRAT[facility] ALL COMPL 6 MEDICAL AQT ABD IMAGING W/S/E/D ASS VIEWS 1 VIEW CH BLOOD 08470 [facility] COUNT 6 N N COMPLETE COMMUNTIY COMMUNTIY AUTO&AUT[place] [address] [facility] INFUSION 6 N N HYDRATION COMMUNTIY COMMUNTIY EACH HOSPITA HOSPITA ADDITIONA L HOUR THER 43742 [facility] PROPH/DX 6 N N NJX IV COMMUNTIY COMMUNTIY PUSH HOSPITA HOSPITA SINGLE/1S T SBST/DRUG COMPREHEN 97164 [facility] SIVE 6 N N METABOLIC COMMUNTIY COMMUNTIY PANEL HOSPITA HOSPITA COLLECTIO 39327 [facility] N VENOUS 6 N N BLOOD COMMUNTIY COMMUNTIY VENIPUNCT HOSPITA HOSPITA URE MRI BRAIN 69994 [facility] BRAIN 6 N N STEM W/O COMMUNTIY COMMUNTI[place] [address] SEJAL CERRATO ALL HEAD/BRAI 6 MEDICAL N W/O IMAGING CONTRAST ASS MATERIAL RADIOLOGI 02901 [facility] ALL C 6 MEDICAL EXAMINATI IMAGING ON CHEST ASS SINGLE VIEW FRONTAL GROUND A0425 [facility] MILEAGE 6 AMBULANCE AMBULANCE PER SERVICE SERVICE STATUTE MILE AMB A0427 [facility] SERVICE 6 AMBULANCE AMBULANCE ALS SERVICE SERVICE [place] [address] SEJ[facility] CERRAT[facility] ALL ABDOMEN & 6 MEDICAL PELVIS IMAGING W/O ASS CONTRAST MATERIAL ECG 67402 [place] ROUTINE 6 [facility] W/LEAST P 12 LDS I&R ONLY THERAPEUT 53711 [facility] IC PX 1/> 6 AREAS EACH 15 MIN EXERCISES CHIROPRAC 72553 [facility] TIC 6 MANIPULAT SABIHA TX SPINAL 3-4 REGIONS MANUAL 36793 [facility] THERAPY 6 TQS 1/> REGIONS EACH 15 MINUTES CHIROPRAC 79725 [facility] TIC 6 MANIPLTV TX EXTRASPIN AL 1/> REGION MANUAL 36268 [facility] THERAPY 6 TQS 1/> REGIONS EACH 15 MINUTES THERAPEUT 99797 [facility] IC PX 1/> 6 AREAS EACH 15 MIN EXERCISES THERAPEUT 56481 [facility]UK[facility] IC PX 1/> 6 MATTI MATTI AREAS EACH 15 MIN EXERCISES CHIROPRAC 81172 [facility] TIC 6 MATTI MATTI MANIPULAT SABIHA TX SPINAL 3-4 REGIONS MANUAL 68229 [facility] THERAPY 6 MATTI MATTI TQS 1/> REGIONS EACH 15 MINUTES CHIROPRAC 92655 [facility] TIC 6 MATTI MATTI MANIPLTV TX EXTRASPIN AL 1/> REGION COMPREHEN 77116 [facility] SIVE 6 DIAGNOSTI DIAGNOSTI [place] [address] SCALF LEI SCALF LEI SURG 6 PATHOLOGY GROSS&BRYCE ROSCOPIC EXAM IMHISTOCH 56162 [facility]I SCALF LEI EM/CYTCHM 6 1ST ANTIBODY STAIN PROCEDURE BX SKIN 41066 SCALF LEI SCALF LEI SUBCUTANE 6 OUS&/MUCO US MEMBRANE 1 LESION ECG 69683 [facility] ROUTINE 6 [facility] W/LEAST P 12 LDS I&R ONLY ECG 50227 MORAVIANBerenice ANDRES ROUTINE 6 [facility] IV [facility] ECG MEDICAL W/LEAST GROUP 12 LDS I&R ONLY GONADOTRO 11526 MORAVIAN MORAVIAN PIN 6 [facility] QUANTITAT SABIHA INJECTION J1644 MORAVIAN MORAVIAN HEPARIN 6 [facility] SODIUM [facility] PER 1000 UNITS BLOOD 75779 MORAVIAN MORAVIAN COUNT 6 [facility] COMPLETE [facility] AUTOMATED LOCM Q9967 MORAVIAN MORAVIAN 300-399 6 [facility]ALTH HEALTH MG/ML [facility] IODINE CONCENTRA TION PER ML BASIC 78159 MORAVIAN MORAVIAN METABOLIC 6 [facility] PANEL [facility] CALCIUM TOTAL LIPID 53428 MORAVIAN MORAVIAN PANEL 6 [facility] COLLECTIO 82473 MORAVIAN MORAVIAN N VENOUS 6 [facility] BLOOD [facility] VENIPUNCT URE HEMOGLOBI 30191 MORAVIAN MORAVIAN N 6 [facility] GLYCOSYLA [facility] LANEY A1C INJECTION J3010 MORAVIAN MORAVIAN FENTANYL 6 [facility] CITRATE [facility] 0.1 MG CATH PLMT 19352 MORAVIAN ANDRES L HRT & 6 [facility] MEDICAL W/NJX & GROUP ANGIO IMG S&I MYOCARDIA 28249 [place] Ortega SPECT 6 [facility] MULTIPLE INC INC STUDIES CV STRS 49761 [place] TST [address] [facility] [facility]&/OR [facility] RX CONT P P ECG I&R ONLY TECHNETIU A9500 [place] Monten[place] TC-99M 6 [facility] SESTAMIBI INC INC DX PER STUDY DOSE CV STRS 70768 [place] TST [address] [facility]&/OR [facility] RX CONT P P ECG W/O I&R CV STRS 46490 [place] TST 6 [facility] XERS&/OR INC INC RX CONT ECG TRCG ONLY ECHO 90133 [place] TTHRC R-T 6 [facility] 2D INC INC W/WOM-MOD E COMPL SPEC&COLR D ECG 42325 [place] CHAVEZ JR ROUTINE 6 [facility] W/LEAST P 12 LDS I&R ONLY RADIOLOGI 36941 [place] C[place] ALL C 6 MEDICAL EXAMINATI IMAGING ON CHEST ASS SINGLE VIEW FRONTAL OPHTH 08599 [facility] 6 XM&EVAL COMPRHNSV ESTAB PT 1/> [place] [address] LAB [facility] LAB [facility] ZINC 6 [facility] BLOOD 14552 [facility] COUNT 6 [facility]I [facility] COMPLETE [facility] HOLDINGS AUTO&[place] [address] [facility] PARATHORM 6 [facility] [place] [address] LAB [facility] LAB MAHESH PHOSPHORU 6 MAI MAI [place] [address] LAB MHAESH LAB MAHESH MAGNESIUM 6 MAI [facility] HOLDINGS ORGANIC 13135 LAB [facility] LAB MAHESH ACID 1 6 MAI MAI QUANTITAT [place] [address] LAB [facility] LAB MAHESH FERRITIN 6 [facility] HOLDINGS HOLDINGS 25 75831 LAB [facility] HYDROXY 6 [facility]I [facility]I INCLUDES HOLDINGS [place] [address] LAB MA[facility] LAB MA[facility]ESH THIAMINE- 6 [facility] VITAMIN HOLDINGS HOLDINGS B-1 [place] [address] LAB [facility] LAB [facility] IRON 6 [place] [address] LAB [facility] LAB [facility]ESH TOCOPHERO 6 MAI MAI L ALPHA [place] [address] LAB [facility] LAB MAHESH VITAMIN A 6 MAI [facility]I [facility]INGS HOLDINGS PREALBUMI 90466 LAB [facility] LAB MAHESH N 6 [place] [address] LAB MAHESH LAB MA[facility]ESH FOLIC 6 [facility]I MAI ACID [facility]INGS HOLDINGS SERUM COMPREHEN 11687 [facility] LAB MAHESH SIVE 6 MAI MAI METABOLIC HOLDINGS HOLDINGS PANEL COMPREHEN 24205 [place] [facility] SIVE 6 [facility] METABOLIC INC INC PANEL IRON 89250 [place] [facility] BINDING 6 [facility] [place] [address] [facility] THYROID 6 [facility] STIMULATI INC INC NG HORMONE TSH COLLECTIO 04897 [facility] N VENOUS 6 [facility] [place] [address] [place] IRON 6 [facility] INC INC 25 13283 [place] HYDROXY 6 [facility] INCLUDES [place] [address] [place] VAUGHN FERRITIN 6 [facility] TERA INC BLOOD 63962 [place] COUNT 6 [facility] COMPLETE INC INC AUTO&AUTO DIFRNTL WBC IADNA 72480 [facility]LAMYDIA 6 [facility] TRACHOMAT IS AMPLIFIED PROBE TQ IADNA 56737 [facility]UMAN [facility] PAPILLOMA VIRUS HIGH-RISK TYPES IADNA 45876 [facility], [facility] NEISSERIA [facility] GONORRHOE AE AMPLIFIED PROBE TQ CYTP 82350 [facility], [facility] CERVICAL/ 6 [facility] VAGINAL REQ INTERP PHYSICIAN CYTP C/V 59433 [facility], [facility] AUTO THIN 6 [facility] LYR [place] [address] [place] THYROID 6 [facility] STIMULATI INC INC NG HORMONE TSH COLLECTIO 36798 [place] [facility] N VENOUS 6 [facility] BLOOD INC INC VENIPUNCT URE BASIC 24472 [place] METABOLIC 6 [facility] PANEL INC INC CALCIUM TOTAL COMPREHEN 34427 [place] SIVE 6 [facility] METABOLIC INC INC PANEL COLLECTIO 51998 [place] [facility] N VENOUS 6 [facility] [place] [address] [place] IRON 6 [facility] INC INC PREALBUMI 50449 [place] N 6 [facility] INC INC BLOOD 96634 [place] COUNT 6 [facility] COMPLETE INC INC AUTO&[place] [address] [place] FERRITIN 6 [facility] INC INC ORGANIC 46413 [place] [facility] ACID 1 6 [facility] [place] [address] [place] THIAMINE- 6 [facility] VITAMIN [place] B-1 [place] [address] LAB MAHESH LAB MA[facility]ESH THIAMINE- 5 [facility] VITAMIN [facility] HOLDINGS B-1 ORGANIC 71113 LAB MA[facility]ESH [facility]ID 1 [facility] [address] LAB MAHESH LAB MA[facility]ESH FERRITIN 5 [facility] HOLDINGS PREALBUMI 94117 LAB MA[facility]ESH LAB MAHESH N 5 [facility] [place] [address] LAB MAHESH LAB MAHESH IRON 5 [place] [address] LAB MAHESH LAB [facility] FOLIC 5 [facility] ACID HOLDINGS HOLDINGS SERUM GENERAL 71387 LAB [facility] LAB MA[facility]ESH HEALTH 5 MAI MAI PANEL HOLDINGS HOLDINGS DESTRUCTI 35435 ATKINS ATKINS ON BENIGN 5 TRA TRA LESIONS UP TO 14 BIOPSY 60442 ATKINS ATKINS SKIN 5 TRA TRA SUBQ&/MUC OUS MEMBRANE EA ADDL LESN DESTRUCTI 53201 ATKINS ATKINS ON 5 TRA TRA PREMALIGN ANT LESION 1ST BX SKIN 14779 ATKINS ATKINS SUBCUTANE 5 TRA TRA OUS&/MUCO [place] MEM[place] 1 [place] [address] SCALF LEI SCALF LEI SURG 5 PATHOLOGY GROSS&[place] [address] LAB MAHESH LAB MAHESH THIAMINE- 5 [facility] VITAMIN HOLDINGS HOLDINGS B-1 ORGANIC 41776 LAB MAHESH LAB MAHESH ACID 1 5 [facility] QUANTITAT HOLDINGS HOLDINGS SABIHA BLOOD 93980 LAB MA[facility]ESH LAB MAHESH COUNT 5 [facility] COMPLETE HOLDINGS HOLDINGS AUTO&AUTO DIFRNTL WBC PREALBUMI 08963 LAB [facility] LAB MAHESH N 5 [facility]INGS HOLDINGS COMPREHEN 44003 LAB [facility] LAB MA[facility]ESH SIVE 5 [facility] METABOLIC [place] [address] LAB [facility] LAB MA[facility]ESH IRON 5 [place] [address] LAB MA[facility]ESH LAB MA[facility]ESH FOLIC 5 [facility] ACID HOLDINGS HOLDINGS SERUM COMPUTER- 06571 [facility] AIDED 5 MEDICAL CARMEN DETECTION IMAGING ASS SCREENING MAMMOGRAP HY SCREENING G0202 [facility] 5 MEDICAL CARMEN MAMMOGRAP IMAGING HY WILBERT ASS INCL CAD WHEN PERFORMD COMPREHEN 83668 [place] SIVE 5 [facility] METABOLIC INC INC PANEL LIPID 65674 [place] PANEL 5 [place] [address] [place] GLUTAMYLT 5 [facility] RASE INC INC GAMMA HEMOGLOBI 39102 [place] N 5 [facility] GLYCOSYLA INC INC LANEY A1C COLLECTIO 14839 [place] N VENOUS 5 [facility] [place] [address] [place] THYROID 5 [facility] STIMULATI INC INC NG HORMONE TSH 25 53788 [place] HYDROXY 5 [facility] INCLUDES INC INC FRACTIONS IF PERFORMED BLOOD 88437 [place] COUNT 5 [facility] COMPLETE INC INC AUTO&AUTO DIFRNTL WBC CYANOCOBA 30786 [place] LYUBOV 5 [facility] VITAMIN INC INC B-12 OPHTH 40427 SCIFR SCIFR MEDICAL 5 ANG ANG XM&EVAL COMPRHNSV ESTAB PT 1/> [place] [address] [facility] ABDOMEN & 5 N N PELVIS COMMUNTIY COMMUNTIY W/[place] [address] [place] ABDOMEN & 5 [facility] PELVIS INC INC W/CONTRAS T MATERIAL BLOOD 03801 [place] COUNT 5 [facility] COMPLETE INC INC AUTO&AUTO DIFRNTL WBC CULTURE 21531 [place] BACTERIAL 5 [facility] INC INC [place] [address] [place] LIPASE 5 [facility] INC INC URNLS DIP 16202 [place] 5 [facility] STICK/TAB INC INC LET REAGENT AUTO MICROSCOP Y URINE 84252 [place] 5 [facility] TEST INC INC [place] [address] [place] AMYLASE 5 [facility] INC INC COMPREHEN 60770 [place] SIVE 5 [facility] [place] [address] [facility] ABDOMINAL 5 N N REAL COMMUNTIY COMMUNTIY TIME HOSPITA HOSPITA W/[place] [address] [facility] AMYLASE 5 N N COMM[place]TI[place] [address] [facility] [facility] FOLIC 5 N N ACID COMMUNTIY COMMUNTIY SERUM HOSPITA HOSPITA COMPREHEN 97926 [facility] SIVE 5 N N METABOLIC COMMUNTIY COMMUNTIY PANEL HOSPITA HOSPITA PREALBUMI 48444 [facility] N 5 N N [place] [address] [facility] TOCOPHERO 5 N N L ALPHA COMMUNTIY COMMUNTIY [place] [address] [facility] VITAMIN A 5 N N COMMUNTIY COMMUNTIY HOSPITA HOSPITA COLLECTIO 37119 [facility] N VENOUS 5 N N BLOOD COMMUNTIY COMMUNTIY [place]IPUN[place] [address] [facility] LIPASE 5 N N COMMUNTI[place] [address] [facility] MAGNESIUM 5 N N COMMUNTIY COMMUNTIY HOSPITA HOSPITA ORGANIC 73534 [facility] ACID 1 5 N N QUANTITAT COMMUNTIY COMMUNTI[place] [address] [facility] PARATHORM 5 N N ONE COMMUNTIY [place] [address] [facility] PHOSPHORU 5 N N S COMMUNTIY COMMUNTIY INORGANIC HOSPITA HOSPITA BLOOD 60135 [facility] COUNT 5 N N COMPLETE COMMUNTIY COMMUNTIY AUTO&AUTO HOS[place] [address] [facility] ZINC 5 N N COMMUNTIY COMMUNTIY HOSPITA HOSPITA 25 24842 [facility] HYDROXY 5 N N INCLUDES COMMUNTIY COMMUNTIY FRACTIONS [place] [address] [facility] THIAMINE- 5 N N VITAMIN COMMUNTIY COMMUNTIY B-1 HOSPITA HOSPITA PROTHROMB 60214 [facility] IN TIME 5 N N COMMUNTIY COMMUNTIY HOSPITA HOSPITA ANTINUCLE 09750 [facility] AR 5 N N ANTIBODIE COMMUNTIY COMMUNTIY [place] [address] [facility] FERRITIN 5 N N COMMUNTIY COMMUNTIY HOSPITA HOSPITA BLOOD 12580 [facility] COUNT 5 N N COMPLETE COMMUNTIY COMMUNTIY AUTOMATED HOSPITA HOSPITA IMMUNOASS 89772 [facility] AY 5 N N ANALYTE COMMUNTIY COMMUNTIY QUAL/SEMI HOSPITA HOSPITA QUAL MULTIPLE STEP COLLECTIO 28386 [facility] N VENOUS 5 N N BLOOD COMMUNTIY COMMUNTIY [place] [address] [facility] IRON 5 N N COMMUNTIY COMMUNTIY HOSPITA HOSPITA IRON 46718 [facility] BINDING 5 N N CAPACITY COMMUNTI[place] [address] [facility] GAMMAGLOB 5 N N ULIN IGA COMMUNTIY COMMUNTIY IGD IGG HOSPITA HOSPITA IGM EACH ALPHA-1-A 24819 [facility] NTITRYPSI 5 N N N TOTAL COMMUNTIY COMMUNTIY HOSPITA HOSPITA COMPREHEN 26432 [facility] SIVE 5 N N METABOLIC COMMUNTIY [place] [address] [place] [facility] RETROPERI 5 [facility] TONEAL INC [place] REAL TIME W/[place] [address] [facility] 5 MEDICAL TONEAL IMAGING REAL [place] W/[place] [address] [facility] HEPATITIS 5 N N B COMMUNTIY COMMUNTIY SURFACE HOSPITA HOSPITA ANTIGEN HEPATITIS 05569 [facility] B CORE 5 N N ANTIBODY COMMUNTIY COMMUNTIY HBCAB HOSPITA HOSPITA TOTAL HEPATITIS 96463 [facility] B SURF 5 N N ANTIBODY COMMUNTIY COMMUNTIY HBSAB HOSPITA HOSPITA HEPATITIS 10067 [facility] C 5 N N [place] [address] [facility] & 5 MEDICAL PELVIS IMAGING W/O ASS CONTRAST MATERIAL DUP-SCAN 86730 [facility] [place] ANDREWS XTR VEINS 5 RADIOLOGY RHO COMPLETE BILATERAL STUDY COLLECTIO 40677 [facility] N VENOUS 5 N N BLOOD COMMUNTIY COMMUNTIY VENIPUNCT HOSPITA HOSPITA URE COMPREHEN 56644 [facility] SIVE 5 N N METABOLIC COMMUNTIY COMMUNTI[place] [address] [facility] AMYLASE 5 N N COMMUNTIY [place] [address] [facility] LIPASE 5 N N COMMUNTIY COMMUNTIY HOSPITA HOSPITA BLOOD 39061 [facility] COUNT 5 N N COMPLETE COMMUNTIY COMMUNTIY AUTO&AUTO HOSPITA [place] [address] [facility] [place] SCALF HUBER TRACT 5 RADIOLOGY UPPER W/WO DELAYED IMAGES W/KUB LAPS 66435 [facility] SANCHEZ MICHELLE GSTRC 5 RSTRICTIV BARIATRIC PX SURGICAL LONGITUDI NAL GASTRECTO MY ANES IPR 41941 [facility] ANT UPPER 5 ANESTHESI ABDOMEN A GROUP LAPS PS GASTRIC RSTCV MO LAPAROSCO 4382 [facility] PIC 5 N N VERTICAL COMMUNTIY COMMUNTIY SLEEVE HOSPITA HOSPITA GASTRECTO MY OTHER 4513 [facility] ENDOSCOPY 5 N N OF SMALL COMMUNTIY COMMUNTIY HOSPITA HOSPITA INTESTINE APPL 77369 [facility] [facility] MODALITY 5 [facility] 1/> AREAS INC INC ELEC STIMJ UNATTENDE D APPL 64622 [place] [facility] MODALITY 5 [facility] 1/> AREAS INC INC ULTRASOUN D EA 15 MIN APPLICATI 11896 [place] [facility] ON 5 [facility] MODALITY INC INC 1/> AREAS HOT/COLD PACKS COMPREHEN 21274 [facility] SIVE 5 N N METABOLIC COMMUNTIY COMMUNTIY PANEL HOSPITA HOSPITA COLLECTIO 61935 [facility] N VENOUS 5 N N BLOOD COMMUNTIY COMMUNTIY VENIPUNCT HOSPITA HOSPITA URE DUP-SCAN 33559 [facility] CANSECO XTR VEINS 5 MEDICAL ADRIANNA COMPLETE IMAGING ASS BILATERAL STUDY GONADOTRO 47488 [facility] PIN 5 N N CHORIONIC COMMUNTIY COMMUNTIY HOSPITA HOSPITA QUALITATI VE BLOOD 90589 [facility] COUNT 5 N N COMPLETE COMMUNTIY COMMUNTIY AUTOMATED HOSPITA HOSPITA APPL 71317 [place] [facility] MODALITY 5 [facility] 1/> AREAS INC INC ELEC STIMJ UNATTENDE D APPLICATI 29181 [place] [facility] ON 5 [facility] MODALITY INC INC 1/> AREAS HOT/COLD PACKS APPL 44949 [place] [facility] MODALITY 5 [facility] 1/> AREAS INC INC ULTRASOUN D EA 15 MIN THERAPEUT 53935 [place] [facility] IC PX 1/> 5 [facility] AREAS INC INC EACH 15 MIN EXERCISES CUL BACT 25933 [place] [facility] XCPT 5 [facility] URINE INC INC BLOOD/STO OL AEROBIC ISOL SUSCEPTIB 41489 [place] [facility] LTY STDY 5 [facility] ANTIMICRB INC INC IAL MICRO/AGA R DILUTJ THERAPEUT 33462 [place] [facility] IC PX 1/> 5 [facility] AREAS INC INC EACH 15 MIN EXERCISES APPL 57972 [place] [facility] MODALITY 5 [facility] 1/> AREAS INC INC ULTRASOUN D EA 15 MIN APPLICATI 07936 [place] [facility] ON 5 [facility] MODALITY INC INC 1/> AREAS HOT/COLD PACKS APPL 54191 [place] [facility] MODALITY 5 [facility] 1/> AREAS INC INC ELEC STIMJ UNATTENDE D APPL 65661 [place] [facility] MODALITY 5 [facility] 1/> AREAS INC INC ELEC STIMJ UNATTENDE D APPLICATI 95831 [place] [facility] ON 5 [facility] MODALITY INC INC 1/> AREAS HOT/COLD PACKS APPL 55892 [place] [facility] MODALITY 5 [facility] 1/> AREAS INC INC ULTRASOUN D EA 15 MIN APPL 94129 [place] [facility] MODALITY 5 [facility] 1/> AREAS INC INC IONTOPHOR ESIS EA 15 MIN THERAPEUT 92656 [place] [facility] IC PX 1/> 5 [facility] AREAS INC INC EACH 15 MIN EXERCISES APPL 33946 [place] [facility] MODALITY 5 [facility] 1/> AREAS INC INC IONTOPHOR ESIS EA 15 MIN APPL 47190 [place] [facility] MODALITY 5 [facility] 1/> AREAS INC INC ULTRASOUN D EA 15 MIN APPLICATI 78872 [place] [facility] ON 5 [facility] MODALITY INC INC 1/> AREAS HOT/COLD PACKS APPL 56712 [place] [facility] MODALITY 5 [facility] 1/> AREAS INC INC ELEC STIMJ UNATTENDE D COMPREHEN 66725 [facility] SIVE 5 N N METABOLIC COMMUNTIY COMMUNTIY [place] [address] [facility] THYROXINE 5 N N TOTAL COMMUNTIY COMMUNTIY HOSPITA HOSPITA LIPID 96680 [facility] PANEL 5 N N COMMUNTIY COMMUNTIY HOSPITA HOSPITA THYROID 05931 [facility] HORM 5 N N UPTK/THYR COMMUNTIY COMMUNTIY OID HOSPITA HOSPITA HORMONE BINDING RATIO COLLECTIO 51002 [facility] N VENOUS 5 N N BLOOD COMMUNTIY COMMUNTIY [place]ENIPUN[place] [address] [facility] THYROID 5 N N STIMULATI COMMUNTIY COMMUNTIY NG HOSPITA HOSPITA HORMONE TSH CUL 14592 [facility] PRSMPTV 5 N N PTHGNC COMMUNTIY COMMUNTIY ORGANISM HOSPITA HOSPITA SCRN W/COLONY ESTIMJ BLOOD 76011 [facility] COUNT 5 N N COMPLETE COMMUNTIY COMMUNTIY AUTOMATED HOSPITA HOSPITA RADIOLOGI 74203 [facility] C EXAM 5 N N CHEST 2 COMMUNTIY COMMUNTIY VIEWS HOSPITA HOSPITA FRONTAL&L ATERAL ECG 00922 [facility] ROUTINE 5 N N ECG COMMUNTIY COMMUNTIY W/LEAST HOSPITA HOSPITA 12 LDS TRCG ONLY W/O I&R PHYSICAL 26092 [facility] [facility] THERAPY 5 [facility] EVALUATIO INC INC N COLLECTIO 81365 [place] [facility] N VENOUS 5 [facility] BLOOD INC INC VENIPUNCT URE FIBRIN 68388 [place] [facility] DGRADJ 5 [facility] PRODUCTS INC INC D-DIMER QUAL/SEMI GILBERT ECG 50206 [place] [facility] ROUTINE 5 [facility] ECG INC INC W/LEAST 12 LDS TRCG ONLY W/O I&R ECG 69004 [place] CHAVEZ JR ROUTINE 5 [facility] W/LEAST P 12 LDS I&R ONLY RADIOLOGI 13057 [place] [facility] C EXAM 5 [facility] CHEST 2 INC INC VIEWS FRONTAL&L ATERAL BLOOD 55013 [place] [facility] COUNT 5 [facility] COMPLETE INC INC AUTO&[place] [address] [place] [facility] TROPONIN 5 [facility] QUANTITAT INC INC SABIHA URNLS DIP 01548 [place] [facility] 5 [facility] STICK/TAB INC INC LET REAGENT AUTO MICROSCOP Y COMPREHEN 76693 [place] [facility] SIVE 5 [facility] METABOLIC INC INC PANEL COMPREHEN 47394 [place] [facility] SIVE 5 [facility] METABOLIC INC INC PANEL LOCM Q9967 [place] [facility] 300-399 5 [facility] MG/ML INC INC [place]OD[place] [address] [place] [facility] TROPONIN 5 [facility] QUANTITAT INC INC SABIHA BLOOD 79382 [place] [facility] COUNT 5 [facility] COMPLETE INC INC AUTO&[place] [address] [place] [facility] ANGIOGRAP 5 [facility] HY CHEST INC INC W/CONTRAS T/NONCONT RAST RADIOLOGI 68063 [place] [facility] C EXAM 5 [facility] CHEST 2 INC INC VIEWS FRONTAL&L ATERAL ECG 56803 [place] GIOVANI ROUTINE 5 [facility] W/LEAST P 12 LDS I&R ONLY ECG 01281 [place] [facility] ROUTINE 5 [facility] ECG INC INC W/LEAST 12 LDS TRCG ONLY W/O I&R FIBRIN 78515 [place] [facility] DGRADJ 5 [facility] PRODUCTS INC INC D-DIMER QUAL/SEMI GILBERT RADEX 36811 [place] [facility] SHOULDER 4 MEDICAL COMPLETE IMAGING MINIMUM 2 ASS VIEWS REPAIR 15090 ATKINS ATKINS COMPLEX 4 TRA TRA SCALP/ARM /LEG 1.1-2.5 CM LEVEL III 86615 SCALF LEI SCALF LEI SURG 4 PATHOLOGY GROSS&BRYCE ROSCOPIC EXAM DESTRUCTI 48456 ATKINS ATKINS ON BENIGN 4 [place] [address] [place] [address] [facility] CANSECO HEAD/BRAI 4 MEDICAL ADRIANNA N W/O IMAGING CONTRAST ASS MATERIAL THERAPEUT 15947 [place] [facility] IC 4 [facility] INJECTION INC INC IV PUSH EACH NEW DRUG EGD 33968 [facility] TRANSORAL 4 N N [facility] COMMUNITY SINGLE/[place] [address] [facility], PICKLESIM SURG 4 [facility] ER JR WANDA PATHOLOGY GROSS&BRYCE ROSCOPIC EXAM ANES 30487 [facility]SON UPPER GI 4 ANESTHESI JOSE ANGEL ENDOSCOPY A GROUP PROXIMAL PS TO DUODENUM SPECIAL 80188 [facility], PICKLESIM STAIN 4 [facility] ER JR WANDA GROUP 1 MICROORGA NISMS I&R SPCL STN 95026 [facility], PICKLESIM 2 I&R 4 [facility] ER JR WANDA EXCPT MICROORG/ ENZYME/IM CYT SPMTRY 41897 [place] [facility] W/VC 4 [facility] EXPIRATOR INC INC Y ABHI W/WO MXML VOL VNTJ REPAIR 15767 ADVANCED SCALF LEI COMPLEX 4 DERMATOLO SCALP/ARM GY /LEG 1.1-2.5 CM LEVEL III 43256 SCALF LEI SCALF LEI SURG 4 PATHOLOGY GROSS&BRYCE ROSCOPIC EXAM EXC B9 58226 ADVANCED SCALF LEI LESION 4 DERMATOLO MRGN XCP GY SK TG S/N/H/F/G 1.1-2.0CM RADIOLOGI 50810 [facility] EXAM 4 MEDICAL ADRIANNA CHEST 2 IMAGING VIEWS ASS FRONTAL&L ATERAL REMOVAL 92659 ATKINS ATKINS SKN TAGS 4 TRA TRA BREAKDOWN PERSON FIBRQ TAGS ANY AREA UPW/15 CV STRS 72519 [place] [facility] TST 4 [facility] XERS&/OR INC INC RX CONT ECG TRCG ONLY ECHO 02908 [place] [facility] TTHRC R-T 4 [facility] 2D INC INC W/WOM-MOD E COMPL SPEC&COLR D CV STRS 13005 [place] MATUTE TST 4 [facility]&/OR [place] [facility] SSD RX CONT P ECG I&R ONLY RADIOLOGI 88394 [facility] C EXAM 4 MEDICAL CARMEN CHEST 2 IMAGING VIEWS ASS FRONTAL&L ATERAL ECG 00150 [place] [facility] ROUTINE 4 [facility] ECG INC INC W/LEAST 12 LDS TRCG ONLY W/O I&R BLOOD 94664 [place] [facility] COUNT 4 [facility] COMPLETE INC INC AUTO&AUTO DIFRNTL WBC ECG 60200 SCOTT CHAVEZ JR ROUTINE 4 DWI DWI ECG W/LEAST 12 LDS I&R ONLY RADIOLOGI 28928 HARLEEN HARLEEN C 4 ADRIANNA ADRIANNA EXAMINATI [place] [address] [place] [facility] TROPONIN 4 [facility] QUANTITAT INC INC SABIHA BASIC 12404 [place] [facility] METABOLIC 4 [facility] PANEL INC INC CALCIUM TOTAL COMPREHEN 73799 [place] [facility] SIVE 4 [facility] METABOLIC INC INC PANEL CREATINE 70246 [place] [facility] KINASE MB 4 [facility] [place] [address] [place] [facility] TROPONIN 4 [facility] QUANTITAT INC INC SABIHA ECG 28991 ANKUR ANKUR ROUTINE 4 BRYCE BRYCE ECG W/LEAST 12 LDS I&R ONLY CREATINE 13419 [place] [facility] KINASE 4 [facility] TOTAL INC INC BLOOD 71101 [place] [facility] COUNT 4 [facility] COMPLETE INC INC AUTO&AUTO DIFRNTL WBC ECG 62338 [place] [facility] ROUTINE 4 [facility] ECG INC INC W/LEAST 12 LDS TRCG ONLY W/O I&R FIBRIN 97928 [place] [facility] DGRADJ 4 [facility] PRODUCTS INC INC D-DIMER QUAL/SEMI GILBERT RADIOLOGI 34395 CHANEL BUCHANAN D C EXAM 4 CHEST 2 VIEWS FRONTAL&L ATERAL HEMOGLOBI 07714 COMBINED COMBINED N 4 PHYSICIAN PHYSICIAN GLYCOSYLA [place] [address] COMBINED COMBINED FREE 4 PHYSICIAN PHYSICIAN THYROXINE S LA S LA LIPID 97594 COMBINED COMBINED PANEL 4 PHYSICIAN PHYSICIAN S LA S LA GENERAL 33503 COMBINED COMBINED HEALTH 4 PHYSICIAN PHYSICIAN PANEL S LA S LA SEDIMENTA 33379 COMBINED COMBINED TION RATE 4 PHYSICIAN PHYSICIAN RBC S LA S LA NON-AUTOM ATED 25 41914 COMBINED COMBINED HYDROXY 4 PHYSICIAN PHYSICIAN INCLUDES S LA S LA FRACTIONS IF PERFORMED CYANOCOBA 14687 COMBINED COMBINED LYUBOV 4 PHYSICIAN PHYSICIAN VITAMIN S LA S LA B-12 COMPUTER- 99773 [place] [facility] AIDED 4 MEDICAL ADRIANNA DETECTION IMAGING ASS SCREENING MAMMOGRAP HY SCREENING G0202 [place] HAR[facility]EN 4 MEDICAL ADRIANNA MAMMOGRAP IMAGING HY WILBERT ASS INCL CAD WHEN PERFORMD LIPID 65696 [facility] PANEL 4 DIAGNOSTI DIAGNOSTI CS CS IIV3 75943 [facility] [place] VACCINE 9 [facility] VIRUS 0.5 BANK ACCT ML DOSAGE IM USE RADEX 83258 [place] [facility] SPINE 9 [facility] LUMBOSACR INC INC AL MINIMUM 4 VIEWS RADEX 93633 MOHAN ANKUR, SPINE 9 [facility] COMPL ON W/BENDING VIEWS MIN 6 RADIOLOGI 22904 [facility] C 9 [facility] EXAMINATI INC INC ON PELVIS 1/2 VIEWS RADEX HIP 91194 [place] SUMA, 9 MEDICAL MAX [place] [facility] L ASSOCIATE COMPLETE S MINIMUM 2 VIEWS Encounters Encounter Start End Date Code Location Performer Type Date OFFICE 50259 [place] [facility] 7 7 [facility] T VISIT INC 10 MINUTES [facility] [place] [facility] OUTPATIEN INC T [facility] [place] [facility] OUTPATIEN INC T OFFICE 93240 [facility] T VISIT INTERNAL 15 MED MINUTES [facility] [place] [facility] OUTPATIEN INC T EMERGENCY 39735 [facility] SUGGS 7 7 PHYSICIAN DEPARTMEN S, PLLC T VISIT HIGH/URGE NT SEVERITY EMERGENCY 49847 [place] 7 7 [facility] DEPARTMEN INC T VISIT MODERATE SEVERITY OFFICE 17388 [facility] MANNIE 7 7 PHYSICIAN T VISIT S GROUP 15 MINUTES [facility] [place] [facility] OUTPATIEN INC T EMERGENCY 08935 [place] 7 7 [facility] DEPARTMEN INC T VISIT LOW/MODER SEVERITY OFFICE 38198 [facility] 7 7 HEALTH T VISIT MEDICAL 25 GROUP MINUTES [facility] [place] [facility] 7 [facility] OUTPATIEN INC T EMERGENCY 96030 [facility] PASCUAL 7 7 PHYSICIAN DEPARTMEN S, PLLC T VISIT MODERATE SEVERITY EMERGENCY 30837 [facility] PASCUAL 7 7 PHYSICIAN DEPARTMEN S, PLLC T VISIT MODERATE SEVERITY [facility] - 7 7 HEALTH OUTPATIEN [place] T OFFICE 74558 [place] [facility] 7 7 [facility] T VISIT 5 INC MINUTES [facility] [place] [facility] OUTPATIEN INC T [facility] [place] [facility] 7 [facility] OUTPATIEN INC T EMERGENCY 69714 [place] 7 7 [facility] DEPARTMEN INC T VISIT LOW/MODER SEVERITY EMERGENCY 36990 [facility] PASCUAL DEPT 7 7 PHYSICIAN VISIT S, PLLC HIGH SEVERITY& THREAT FUNCJ OFFICE 32414 [facility] ISSA OUTPATIEN 7 7 PHYSICIAN T VISIT S GROUP 10 MINUTES OFFICE 13451 [facility]HAL OUTPATIEN 7 7 PARTNERS T VISIT OF [place] 25 CO MINUTES [facility] [place] [facility] 7 7 [facility] OUTPATIEN INC T OFFICE 69636 [facility] 7 7 VALLEY T VISIT INTERNAL 15 MED MINUTES [facility] [place] [facility] 7 7 [facility] OUTPATIEN INC T EMERGENCY 75378 [place] 7 7 [facility] DEPARTMEN INC T VISIT HIGH/URGE NT SEVERITY EMERGENCY 10652 [facility] DEPT 7 7 PHYSICIAN VISIT S, PLLC HIGH SEVERITY& THREAT FUNCJ OFFICE 94027 [place] [facility] 7 7 [facility] T VISIT 5 INC MINUTES [facility] [place] [facility] OUTPATIEN INC T [facility] [place] [facility] 7 [facility] OUTPATIEN INC T EMERGENCY 51586 [place] 7 7 [facility] DEPARTMEN INC T VISIT MODERATE SEVERITY EMERGENCY 23412 [facility] SANDHU DEPT 7 7 PHYSICIAN VISIT S, [facility] HIGH SEVERITY& THREAT FUN HOSPITAL [facility] - 7 7 HEALTH OUTPATIEN SONTAG T OFFICE 75395 [facility] MCDANIELS OUTPATIEN 7 7 [place] T VISIT INTERNAL 15 MED MINUTES HOSPITAL [facility] - 7 7 HEALTH OUTPATIEN SONTAG T OFFICE 28260 [place] CELI OUTPATIEN 7 7 [facility] T VISIT HOSPITAL 10 P MINUTES OFFICE 25691 [facility] FUNES OUTPATIEN 7 7 HEALTH T VISIT MEDICAL 25 GROUP MINUTES OFFICE 97647 [place] [facility]IEN 7 7 [facility] T VISIT INC 10 MINUTES OFFICE 91594 YVETTE AVINA OUTPATIEN 7 7 MD RHIANNON, T VISIT PSC 15 MINUTES [facility] [place] [facility] OUTPATIEN INC T OFFICE 81391 [place] [facility] 7 7 [facility] T VISIT 5 INC MINUTES [facility] [place] [facility] 7 [facility] OUTPATIEN INC T OFFICE 56552 [place] WEISS JR OUTPATIEN 7 7 [facility] T VISIT HOSPITAL 10 P MINUTES [facility] [place] [facility] OUTPATIEN INC T EMERGENCY 51096 [facility] PASCUAL DEPT 7 7 PHYSICIAN VISIT S, PLL HIGH SEVERITY& THREAT FUNCJ EMERGENCY 79438 [place] 7 7 [facility] DEPARTMEN INC T VISIT LOW/MODER SEVERITY [facility] [place] [facility] 7 7 [facility] OUTPATIEN INC T OFFICE 73520 [place] CELI OUTPATIEN 7 7 [facility] T VISIT HOSPITAL 10 P MINUTES EMERGENCY 20108 [place] 7 7 [facility] HIGH/URGE NT SEVERITY [facility] [place] [facility] 7 7 [facility] OUTPATIEN [facility] [place] [facility] 7 7 [facility] OUTPATIEN INC T PERIODIC 25979 [facility] HUMPHREY PREVENTIV 7 7 PHYSICIAN E MED EST S GROUP PATIENT [id number] OFFICE 61950 LUIS MATUTE OUTPATIEN 7 7 [facility] T VISIT INTERNAL 15 MED MINUTES [facility] [place] [facility] 7 [facility] OUTPATIEN [facility] T OFFICE 90205 [facility] MAEGAN OUTPATIEN 7 7 PHYSICIAN T VISIT S GROUP 15 MINUTES EMERGENCY 95572 [facility] JAQUEZ 7 7 PHYSICIAN DEPARTMEN S, [facility] T VISIT HIGH/URGE NT SEVERITY [facility] [place] [facility] 7 7 [facility] OUTPATIEN [facility] T OFFICE 57152 [place] [facility]IEN 7 7 [facility] T VISIT HOSPITAL 10 P MINUTES OFFICE 43994 YVETTE JURADO OUTPATIEN 7 7 MD RHIANNON, T VISIT PSC 10 MINUTES [facility] [place] [facility] [place] [facility] [place] [facility] 7 [facility] T OFFICE 83365 [facility] KIMBERLY OUTPATIEN 7 7 PHYSICIAN T VISIT S GROUP 25 MINUTES [facility] [place] [facility] 7 [facility] T OFFICE 05782 YVETTE AVINA OUTPATIEN 7 7 MD RHIANNON, T NEW 30 PSC MINUTES OFFICE 83747 [place] [facility] 7 7 [facility] T VISIT 5 INC MINUTES OFFICE 63706 [facility] ISSA OUTPATIEN 7 7 PHYSICIAN T VISIT S GROUP 10 MINUTES [facility] [place] [facility] 7 7 [facility] INC T EMERGENCY 01747 SMILEY SOTOMAYOR 7 7 PHYSICIAN JR DEPARTMEN S, [facility] T VISIT HIGH/URGE NT SEVERITY OFFICE 84022 [facility] OUTPATIEN 7 7 PHYSICIAN T VISIT S GROUP 25 MINUTES [facility] [place] [facility] INC T OFFICE 41141 [place] [facility] 7 7 [place] T VISIT INTERNAL 15 MED MINUTES OFFICE 69165 [facility] OUTPATIEN 7 7 PHYSICIAN T VISIT S GROUP 25 MINUTES [facility] [place] [facility] INC T OFFICE 02065 [facility] 7 7 [place] T [facility]ISIT ORTHOPAED 15 IC MINUTES EMERGENCY 29870 [place] 7 7 [facility] DEPARTMEN INC T VISIT HIGH/URGE NT SEVERITY [facility] [place] [facility] 7 [facility] INC T EMERGENCY 03620 SMILEY ARMIJO DEPT 7 7 PHYSICIAN VISIT S, [facility] HIGH SEVERITY& THREAT FUNJ OFFICE 98284 [place] [facility] 7 7 [place] T VISIT INTERNAL 25 MED MINUTES OFFICE 08760 [place] [facility] 7 7 [facility] T VISIT 5 INC MINUTES [facility] [place] [facility] INC T OFFICE 17788 [facility] OUTPAT[facility]EN 7 7 [place] T NEW 30 ORTHOPAED MINUTES IC EMERGENCY 56773 [place] 7 7 [facility] DEPARTMEN INC T VISIT LOW/MODER SEVERITY [facility] [place] [facility] 7 7 [facility] OUT[facility] INC T EMERGENCY 79298 SMI[facility] JIMENEZ DEPT 7 7 PHYSICIAN U [facility]ISIT S, [facility] SE[facility] [place] [facility] 7 7 [facility] OUT[facility] INC T EMERGENCY 76706 [place] 7 7 [facility] DEPARTMEN INC T VISIT MODERATE SEVERITY [facility] [place] [facility] 7 7 [facility] INC T EMERGENCY 36657 [place] 7 7 [facility] DEPARTMEN INC T VISIT LOW/MODER SEVERITY EMERGENCY 59877 SMILEY PASCUAL 7 7 PHYSICIAN DEPARTMEN S, [facility] T VISIT HIGH/URGE NT SEVERITY [facility] [place] [facility] T OFFICE 00391 [place] [facility] 7 7 [facility] T VISIT 5 INC MINUTES [facility] [place] [facility] 7 7 [facility] INC T OFFICE 78543 [place] [facility] 7 7 [facility] T VISIT INTERNAL 15 MED MINUTES EMERGENCY 60463 [facility] 7 [facility] EMERGENC[facility] T VISIT [facility] MODERATE [facility]VERITY [facility] [place] [facility] [address] [facility] EMERGENCY 75493 [place] 7 7 [facility] T VISIT LOW/MODER SEVERITY [facility] [place] [facility] 7 7 [facility] INC T OFFICE 04831 [place] [facility] 7 7 [facility] T VISIT 5 INC MINUTES OFFICE 52887 [place] [facility] 7 7 [facility] T VISIT INTERNAL 15 MED MINUTES OFFICE 16948 [place] [facility] 7 7 [facility] T VISIT 5 INC MINUTES EMERGENCY 69147 S[facility] MEDEROS 7 7 PHYSICIAN DEPARTMEN S [facility] T VISIT MODERATE SEVERITY [facility] [place] [facility] 7 7 [facility] T OFFICE 33146 [place] [facility] 7 7 [facility] T VISIT 5 INC MINUTES [facility] [place] [facility] INC T OFFICE 88556 [place] [facility] 7 7 [place] T VISIT INTERNAL 25 MED MINUTES [facility] [place] [facility] 7 7 [facility] INC T OFFICE 67260 [place] [facility] 7 7 [facility] 10 INC [facility] [place] [facility] 7 7 [facility] OUTPATIEN [facility] OFFICE 58123 [place] [facility]O OUTPATIEN 7 7 T VISIT 25 MINUTES [facility] [place] [facility] T EMERGENCY 97264 [place] 7 7 [facility] DEPARTMEN INC T VISIT LIMITED/M INOR PROB [facility] [place] [facility] 7 7 [facility] T EMERGENCY 39427 [place] 7 7 [facility] DEPARTMEN INC T VISIT LOW/MODER SEVERITY [facility] [place] [facility] 7 7 [facility] T EMERGENCY 10080 [place] 7 7 [facility] DEPARTMEN [facility] T VISIT LIMITED/M INOR PROB EMERGENCY 11118 SMILEY PASCUAL 7 7 PHYSICIAN RADHA S [facility] SE[facility] [place] [facility] 7 7 [facility] OUTPATIEN [facility] [place] - 7 7 [facility]ALTH OUTPATIEN [facility] [place] - 6 6 [facility]EN [facility] T EMERGENCY 78435 SMILEY SOTOMAYOR 6 6 PHYSICIAN JR RADHA S PLLC T VISIT HIGH/URGE NT SEVERITY OFFICE 75592 [place] LOCKHART OUTPATIEN 6 6 VALLEY T VISIT INTERNAL 15 MED MINUTES EMERGENCY 18712 [place] 6 6 [facility] DEPARTMEN INC T VISIT MODERATE SEVERITY EMERGENCY 70854 S[place] JAQUEZ 6 6 PHYSICIAN [facility] S, [facility] T VISIT HIGH/URGE NT SEVERITY [facility] [place] - 6 6 [facility] OUTPATIEN INC T EMERGENCY 88196 SMILEY ARMIJO 6 6 PHYSICIAN [facility] S, [facility] T VISIT MODERATE SEVERITY [facility] [place] - 6 6 [facility] OUTPATIEN INC T EMERGENCY 82765 [place] 6 6 [facility] LOW/MODER SEVERITY EMERGENCY 25457 SMILEY PASCUAL 6 6 PHYSICIAN [facility] S, [facility] T VISIT MODERATE SEVERITY OFFICE 36771 SCIFRES SCIFRES OUTPATIEN 6 6 ANG ANG T VISIT 10 MINUTES OFFICE 29688 [place] ARSLAN OUTPATIEN 6 6 BANNER T VISIT INTERNAL 15 MED MINUTES OFFICE 63297 WENDY SANCHEZ MICHELLE OUTPATIEN 6 6 T VISIT BARIATRIC 25 SURGICAL MINUTES [facility]OSP[facility] [place] - 6 6 [facility] OUTPATIEN INC T EMERGENCY 39393 SMILEY SOTOMAYOR, 6 6 PHYSICIAN JR BILLINGS [facility] S, [facility] T VISIT HIGH/URGE NT SEVERITY EMERGENCY 83021 [place] 6 6 [facility]ISIT LOW/MODER SEVERITY EMERGENCY 29157 SMILEY PASCUAL 6 6 PHYSICIAN BRYCE [facility] S, [facility] T VISIT MODERATE SEVERITY OFFICE 83926 KENTALECYO FALLUJI OUTPATIEN 6 6 [facility] T VISIT MEDICAL 15 G MINUTES [facility]OSP[facility] [place] [facility] 6 6 [facility] OUTPATIEN INC T OFFICE 56476 [facility] HUMPHREY OUTPATIEN 6 6 PHYSICIAN MEAGAN T VISIT S GROUP 15 MINUTES OFFICE 45834 [facility] ISSA OUTPATIEN 6 6 PHYSICIAN JARON T VISIT S GROUP 10 MINUTES [facility]OS[facility] [place] [facility] 6 6 [facility] INC T [facility] [place] [facility] 6 6 [facility] INC T [facility] [place] [facility] 6 6 [facility] OUT[facility]EN INC T EMERGENCY 12382 [place] 6 6 [facility] DEPARTMEN INC T VISIT MODERATE SEVERITY OFFICE 37282 [facility] ISSA OUTPATIEN 6 6 PHYSICIAN JARON T VISIT S GROUP 10 MINUTES OFFICE 91332 [place] ANDRES OUTPATIEN 6 6 HEALTH IV HEN T VISIT MEDICAL 15 GROUP MINUTES OFFICE 08598 [place] ROQUEIMONE OUTPATIEN 6 6 [facility] T VISIT HOSPITAL 10 P MINUTES OFFICE 23490 PERLA RODRIGUEZ TRI OUTPATIEN 6 6 GROUND T VISIT FAMILY 25 CLINI MINUTES OFFICE 21770 [facility] 6 [facility] T VISIT [address] [facility] DEPT [facility] DEPT MINUTES [facility] [place] [facility] 6 6 [facility] OUTPATIEN INC T EMERGENCY 01940 SMILEY ARMIJO 6 6 PHYSICIAN CASANDRA GARCIA S, [facility] T VISIT HIGH/URGE NT SEVERITY EMERGENCY 45076 [place] 6 6 [facility] DEPARTMEN INC T VISIT LOW/MODER SEVERITY OFFICE 13595 [facility] 6 6 [facility] T VISIT [facility] DEPT [facility] DEPT 15 [facility] [place] - 6 6 [facility] OUTPATIEN INC T OFFICE 80037 [facility] KIMBERLY OUTPATIEN 6 6 PHYSICIAN MAT T VISIT S GROUP 25 MINUTES OFFICE 22152 WENDY SANCHEZ OUTPATIEN 6 6 T VISIT BARIATRIC 25 SURGICAL MINUTES EMERGENCY 86318 SMILEY PASCUAL 6 6 PHYSICIAN BRYCE GARCIA S PLLC T VISIT MODERATE SEVERITY OFFICE 18081 [facility] KIMBERLY OUTPATIEN 6 6 PHYSICIAN MAT T NEW 45 S GROUP MINUTES OFFICE 09189 ALLERGY ROSENTHAL MAR OUTPATIEN 6 6 PARTNERS T VISIT OF [place] 40 CO MINUTES [facility]OS[facility] [place] - 6 6 [facility] OUTPATIEN INC T EMERGENCY 97899 SMILEY JIMENEZ 6 6 PHYSICIAN Taylor GARCIA S PLLC T VISIT HIGH/URGE NT SEVERITY EMERGENCY 28554 [place] 6 6 [facility] DEPARTMEN INC T VISIT LOW/MODER SEVERITY [facility] [place] [facility] 6 6 [facility] OUTPATIEN INC T EMERGENCY 67784 SMILEY PASCUAL 6 6 PHYSICIAN BRYCE Reddy PLLC T VISIT MODERATE SEVERITY OFFICE 38925 CINTHYA DONALD OUTPATIEN 6 6 N T VISIT NEUROLOGY 10 MINUTES [facility] [place] [facility] 6 6 [facility] OUT[facility]EN INC T EMERGENCY 15584 SMILEY SOTOMAYOR, 6 6 PHYSICIAN JR MANUELITO Reddy PLLC T VISIT MODERATE SEVERITY [facility] [place] - 6 6 [facility] OUTPATIEN INC T EMERGENCY 47791 SMILEY PASCUAL DEPT 6 6 PHYSICIAN BRYCE VISIT S, PLLC HIGH SEVERITY& THREAT FUNCJ OFFICE 78305 [place] ALATORRE OUTPATIEN 6 6 MEM[facility]IAL T VISIT HOSPITAL 10 P MINUTES EMERGENCY 96790 [place] 6 6 [facility] DEPARTMEN INC T VISIT MODERATE SEVERITY [facility] [place] [facility] 6 6 [facility] OUTPATIEN INC T EMERGENCY 01913 SMILEY SOTOMAYOR, 6 6 PHYSICIAN JR BILLINGS DEPARTMEN S, PLLC T VISIT HIGH/URGE NT SEVERITY OFFICE 39535 [place] WEISS JR OUTPATIEN 6 6 [facility] T VISIT HOSPITAL 10 P MINUTES OFFICE 00889 ALLERGY ROSENTHAL MAR CONSULTAT 6 6 PART[facility]ERS [facility] [place] NEW/ESTAB CO PATIENT 60 MIN EMERGENCY 98994 SMILEY PASCUAL DEPT 6 6 PHYSICIAN BRYCE VISIT S, PLLC HIGH SEVERITY& THREAT FUNCJ EMERGENCY 62138 SMILEY PASCUAL 6 6 PHYSICIAN BRYCE DEPARTMEN S, PLLC T VISIT MODERATE SEVERITY EMERGENCY 75374 SMILEY PASCUAL DEPT 6 6 PHYSICIAN BRYCE VISIT S, PLLC HIGH SEVERITY& THREAT FUNCJ EMERGENCY 12024 S[place]LEY SUGGS [facility] 6 6 PHYSICIAN DEPARTMEN S, PLLC T VISIT LOW/MODER SEVERITY [facility]OSP[facility] [place] - 6 6 [facility] OUTPATIEN INC T OFFICE 66832 [facility] OUTPATIEN 6 6 PHYSICIAN T VISIT S GROUP 25 MINUTES EMERGENCY 69329 SMILEY PASCUAL 6 6 PHYSICIAN BRYCE DEPARTMEN S, PLLC T VISIT MODERATE SEVERITY [facility] [place] [facility] 6 6 [facility] OUTPATIEN INC T EMERGENCY 34037 [place] 6 6 [facility] DEPARTMEN INC T VISIT LOW/MODER SEVERITY [facility]OSPITAL [facility] - 6 6 N OUTPATIEN COMMUNTIY T HOSPITA OFFICE 68766 [facility] ISSA OUTPATIEN 6 6 PHYSICIAN JARON T NEW 20 S GROUP MINUTES EMERGENCY 24370 SMILEY ARMIJO DEPT 6 6 PHYSICIAN CASANDRA VISIT S, PLLC HIGH SEVERITY& THREAT FUNCJ EMERGENCY 88226 SMILEY PASCUAL 6 6 PHYSICIAN BRYCE DEPARTMEN S, PLLC T VISIT HIGH/URGE NT SEVERITY HOSPITAL [facility] - 6 6 N OUTPATIEN COMMUNTIY T HOSPITA EMERGENCY 94073 SMILEY PASCUAL DEPT 6 6 PHYSICIAN BRYCE VISIT S, [facility] HIGH SEVERITY& THREAT FUNJ OFFICE 10815 WENDY SANCHEZ MICHELLE OUTPATIEN 6 6 T VISIT BARIATRIC 25 SURGICAL MINUTES EMERGENCY 44571 [facility] 6 6 EMERGENCY HOW DEPARTMEN PHYS PSC T VISIT MODERATE SEVERITY [facility] [place] - 6 6 HEALTH OUTPATIEN [place] T EMERGENCY 02387 SMILEY BAGLEY DEPT 6 6 PHYSICIAN FOR VISIT S, [facility] HIGH SEVERITY& THREAT [facility] [place] - 6 6 [facility] OUTPATIEN INC T EMERGENCY 76887 [place] 6 6 [facility] DEPARTMEN INC T VISIT LOW/MODER SEVERITY [facility] [place] - 6 6 [facility] OUTPATIEN INC T EMERGENCY 96426 SMILEY PASCUAL 6 6 PHYSICIAN BRYCE DEPARTMEN S, [facility] T VISIT HIGH/URGE NT SEVERITY EMERGENCY 83231 SMILEY SUGGS [facility] 6 6 PHYSICIAN DEPARTMEN S, [facility] T VISIT HIGH/URGE NT SEVERITY HOSPITAL [facility] - 6 6 N OUTPATIEN COMMUNTIY T HOSPITA EMERGENCY 44471 [facility] 6 6 ROSALEE JOSE ANGEL DEPARTMEN EMERGENCY T VISIT PHYS HIGH/URGE NT SEVERITY [facility] [place] - 6 6 [facility] OUTPATIEN INC T EMERGENCY 71260 [place] DEPT 6 6 [facility] VISIT INC HIGH SEVERITY& THREAT FUNCJ OFFICE 65432 CINTHYA DONALD CONSULTAT 6 6 N ION NEUROLOGY NEW/ESTAB PATIENT 60 MIN OFFICE 39692 [facility] LUKING OUTPATIEN 6 6 MATTI MATTI T NEW 30 MINUTES OFFICE 32202 SCALF LEI SCALF LEI OUTPATIEN 6 6 T VISIT 25 MINUTES EMERGENCY 52963 [facility] DEPT 6 6 PHYSICIAN BRYCE VISIT S, PLL HIGH SEVERITY& THREAT FUNCJ OFFICE 47573 [place] ARSLAN OUTPATIEN 6 6 VALLEY OFELIA T VISIT INTERNAL 15 MED MINUTES HOSPITAL [facility] - 6 6 HEALTH OUTPATIEN [facility] [place] - 6 6 [facility] OUTPATIEN INC T EMERGENCY 95077 [facility] DEPT 6 6 PHYSICIAN BRYCE VISIT S, PLL HIGH SEVERITY& THREAT FUNCJ OFFICE 25612 [facility] BOLIEK OUTPATIEN 6 6 HEALTH KADIE T VISIT MEDICAL 15 GROUP MINUTES OFFICE 68132 WENDY SANCHEZ MICHELLE OUTPATIEN 6 6 T VISIT BARIATRIC 25 SURGICAL MINUTES [facility] [place] - 6 6 [facility] OUTPATIEN INC T OFFICE 03795 [place] ARSLAN OUTPATIEN 6 6 [place] OF[place]IA T VISIT INTERNAL 15 MED MINUTES INITIAL 12327 [facility] PREVENTIV 6 6 PHYSICIAN E S GROUP MEDICINE NEW PATIENT 40-64YRS OFFICE 29558 [place] BOLIEK OUTPATIEN 6 6 PRIMARY KADIE T VISIT CARE OF 15 ABISAI MINUTES [facility]OSP[facility] [place] - 6 6 [facility] OUTPATIEN INC T OFFICE 90887 [place] ARSLAN OUTPATIEN 6 6 VALLEY OFELIA T VISIT INTERNAL 15 MED MINUTES [facility] [place] - 6 6 [facility] OUTPATIEN INC T OFFICE 71382 WENDY SANCHEZ MICHELLE OUTPATIEN 5 5 T VISIT BARIATRIC 25 SURGICAL MINUTES OFFICE 87561 ATKINS ATKINS OUTPATIEN 5 5 TRA TRA T VISIT 25 MINUTES PERIODIC 92737 [facility] 5 5 [facility] E MED EST HLTH DEPT HLTH DEPT PATIENT JAZZ JAZZ 40-64YRS OFFICE 38010 WENDY MARTINEZ OUTPATIEN 5 5 T VISIT BARIATRIC 15 SURGICAL MINUTES [facility] [place] - 5 5 [facility] OUTPATIEN INC [facility] [place] - 5 5 [facility] OUTPATIEN INC T OFFICE 86695 [place] ARSLAN OUTPATIEN 5 5 VALLEY OFELIA T NEW 30 INTERNAL MINUTES MED OFFICE 94326 [facility] PETTEY OUTPATIEN 5 5 PHYSICIAN JACOBY T VISIT S GROUP 15 MINUTES OFFICE 24914 GASTROENT CASE JUS OUTPATIEN 5 5 EROLOGY T VISIT AND 15 HEPATOL MINUTES OFFICE 03510 [facility] OUTPATI[facility] 5 5 HEALTH KADIE T VISIT MEDICAL 10 GROUP MINUTES [facility] - 5 5 N OUTPATIEN COMMUNTIY T HOSPITA EMERGENCY 77056 SMILEY HUTCHISON 5 5 PHYSICIAN KENNY Reddy [facility] T VISIT HIGH/URGE NT SEVERITY [facility] [place] [facility] 5 5 [facility] OUTPATIEN INC [facility] 5 5 N OUTPATIEN COMMUNTIY T HOSPITA OFFICE 15901 GASTROENT CASE JUS OUTPATIEN 5 5 EROLOGY T NEW 45 AND MINUTES HEPATOL [facility] [place] - 5 5 [facility]PAT[facility]EN INC [facility] [place] - 5 5 [facility] OUTPATIEN INC T EMERGENCY 73624 [place] SOTOMAYOR, 5 5 [facility] T VISIT P LOW/MODER SEVERITY OFFICE 87323 DANIEL SANCHEZ OUTPATIEN 5 5 HUBER HUBER T VISIT 15 MINUTES EMERGENCY 42209 [place] SOTOMAYOR, 5 5 [facility] T VISIT P MODERATE SEVERITY [facility] [place] - 5 5 [facility] OUTPATIEN INC T [facility] - 5 5 N OUTPATIEN COMMUNTIY T [facility] 5 N OUTPATIEN COMMUNTIY T [facility] 5 5 N INPATIENT COMMUNTIY [facility] [place] - 5 5 [facility] OUTPATIEN INC T OFFICE 53140 WENDY SANCHEZ MICHELLE OUTPATIEN 5 5 T VISIT BARIATRIC 40 SURGICAL MINUTES OFFICE 41646 DANIEL SANCHEZ OUTPATIEN 5 5 HUBER HUBER T VISIT 15 MINUTES [facility]OSP[facility] [place] - 5 5 [facility] OUTPATIEN INC T EMERGENCY 38910 [place] 5 5 [facility] VIS[facility] LOW/MODER SEVERITY [facility] [place] [facility] 5 5 [facility]EN INC T [facility]PITAL [facility] - 5 5 N OUTPATIEN COMMUNTIY [facility] [place] [facility] 5 5 [facility] OUTPATIEN INC T OFFICE 12734 [place] ALATORRE OUTPATIEN 5 5 [facility] MINUTES P [facility]OSP[facility] [place] - 5 5 [facility] OUTPATIEN INC T OFFICE 43470 MELANIE NOGUEIRA OUTPATIEN 5 5 MEDICAL JAM T VISIT SERV 15 FOUNDATIO MINUTES N OFFICE 76013 [place] WEISS JR OUTPATIEN 5 5 [facility] 20 HOSPITAL MINUTES P OFFICE 37462 [facility] PETTEMago OUTPATIEN 5 5 PHYSICIAN JAM T NEW 30 S GROUP MINUTES OFFICE 79654 [place] FALLUJI CONSULTAT 5 5 [facility] ION MEDICAL NEW/ESTAB G PATIENT 60 MIN OFFICE 83503 DANIEL CHAND 5 5 HUBER HUBER T VISIT 15 MINUTES EMERGENCY 96059 [place] 5 5 [facility] DEPARTMEN INC T VISIT HIGH/URGE NT SEVERITY [facility] [place] - 5 5 [facility] OUTPATIEN INC T EMERGENCY 37631 [place] ESCOTO 5 5 [facility] T VISIT P MODERATE SEVERITY [facility] [place] - 5 5 [facility] OUTPATIEN INC T EMERGENCY 48489 [place] 5 5 [facility] T VISIT HIGH/URGE NT SEVERITY OFFICE 32184 DANIEL CHAND 5 5 HUBER HUBER T VISIT 15 MINUTES OFFICE 48677 DANIEL CHAND 4 4 HUBER HUBER T VISIT 15 MINUTES EMERGENCY 82499 [place] 4 4 [facility] DEPARTMEN INC T VISIT LOW/MODER SEVERITY [facility] [place] - 4 4 [facility] OUTPATIEN INC T OFFICE 78525 DANIEL CHAND 4 4 HUBER HUBER T VISIT 15 MINUTES [facility]OSP[facility] [place] - 4 4 [facility] OUTPATIEN INC T EMERGENCY 17947 [facility] DEPT 4 4 ROSALEE VISIT EMERGENCY HIGH PHYS SEVERITY& THREAT [facility] - 4 4 N OUTPATIEN COMMUNITY T HOSPITA OFFICE 20720 DANIEL CHAND 4 4 HUBER HUBER T VISIT 15 MINUTES OFFICE 14916 MONALISA SEXTON CONSULTAT 4 4 KADIE ION CARDIOLOG NEW/ESTAB Y AT CENT PATIENT 40 MIN [facility] [place] - 4 4 [facility] OUTPATIEN INC T OFFICE 09641 [place] NOGUEIRA CONSULTAT 4 4 MEDICAL JAM ION SERV NEW/ESTAB FOUNDATIO PATIENT N 60 MIN [facility]OS[facility] [place] - 4 4 [facility] OUTPATIEN INC T OFFICE 09109 DANIEL CHAND 4 4 HUBER HUBER T VISIT 15 MINUTES OFFICE 72622 ATKINS ATKINS CONSULTAT 4 4 TRA TRA ION NEW/ESTAB PATIENT 40 MIN OFFICE 84937 [facility] OUTPATIEN 4 4 [facility] T VISIT MEDICAL 15 G MINUTES [facility]OSP[facility] [place] - 4 4 [facility] OUTPATIEN INC T OFFICE 69652 [facility] 4 4 [facility] T NEW 30 MEDICAL MINUTES G EMERGENCY 54138 [facility] DEPT 4 4 [facility] VISIT EMERGENCY HIGH PHYSI SEVERITY& THREAT [facility] [place] - 4 4 [facility] OUTPATIEN INC T EMERGENCY 67430 [place] 4 4 [facility] DEPARTMEN INC T VISIT MODERATE SEVERITY EMERGENCY 31793 HORTENCIA HUGHES DEPT 4 4 VISIT HIGH SEVERITY& THREAT [facility] [place] - 4 4 [facility] OUTPATIEN INC T EMERGENCY 80514 ANKUR PASCUAL DEPT 4 4 BRYCE BRYCE VISIT HIGH SEVERITY& THREAT FUN EMERGENCY 41291 [place] 4 4 [facility] DEPARTMEN INC T VISIT HIGH/URGE NT SEVERITY OFFICE 76203 DANIEL CHAND 4 4 HUBER HUBER T VISIT 15 MINUTES OFFICE 74215 SANCHEZ MICHELLE SANCHEZ MICHELLE CONSULTAT 4 4 ION NEW/ESTAB PATIENT 80 MIN OFFICE 81810 DANIEL CHAND 4 4 HUBER HUBER T NEW 30 MINUTES [facility]OSP[facility] [place] - 4 4 [facility] OUTPATIEN INC T OFFICE 81666 MAEGAN ISSA OUTPATIEN 4 4 JARON JARON T VISIT 5 MINUTES OFFICE 44055 MAEGAN VERAON OUTPATIEN 4 4 JARON JARON T NEW 30 MINUTES EMERGENCY 02725 KIMBERLEE PASCUAL, 9 9 [facility] T VISIT ON HIGH/URGE NT SEVERITY EMERGENCY 58741 [place] 9 9 [facility] DEPARTMEN INC T VISIT LOW/MODER SEVERITY [facility] [place] - 9 9 [facility] OUTPATIEN INC T
--- NOTE | 2017-09-09 23:21 | Emergency Room Report ---
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 N Clinical Suspician of Infection? N Mental Status: 1 - Regular (Normal Baseline) Sepsis Risk:Possible Sepsis Risk Have you (or family members/close friends) recently traveled outside the [place]? N If Yes, where/when: Have you had exposure to infectious disease within the past month? N TB? Other? Specify: Source patient, RN notes reviewed, family, old records Exam Limitations no limitations Comment pt with 2 day hx of lt sided chest pain with rad to neck and described as squeezing - new pain - had abn gxt in past then cath with no stents Cardiac Chest Pain Chest pain indicative of cardiac Yes Timing/Duration 1-3 hours, intermittent Severity/Quality moderate Location central Chest Pain Radiation jaw(s) Activities at Onset light activity Nitro Today/Relief no nitro taken today Aspirin Treatment Today 325 mg x 1, provided by ED Beta amalia treatment today no beta amalia taken Cardiac risk factors + cardiovascular disease, Elevated lipids, + family history, obesity Prior Workup/Intervention cardiac cath Timing/Duration this evening Severity moderate ALLERGIES Coded Allergies: Sulfa (Sulfonamide Antibiotics) (Mild, I-RASH 08/26/17) codeine (Mild, I-RASH 08/26/17) diphenhydramine (From BENADRYL) (Mild, 01/22/17) morphine (08/26/17) Home Medications Active Scripts ONDANSETRON HCL (Zofran 4MG Tab) 4 MG PO Q6HP PRN NAUSEA AND VOMITING #40 TAB Prov: 03/22/17 PROMETHAZINE HCL (Promethazine 25mg Tab) 25 MG PO Q6HP PRN NAUSEA AND VOMITING #8 TAB Prov: 07/09/17 Reported Medications MULTIVITAMIN (One Daily) 1 TAB PO DAILY Linaclotide (Linzess 145MCG) 145 MCG PO DAILY #30 Lovastatin 20 MG PO DAILY Omeprazole (Omeprazole 40MG) 40 MG PO BID Cyclobenzaprine Hcl 50 MG PO BID Loratadine 10 MG PO DAILY CHOLECALCIFEROL (VITAMIN D3) (Vitamin D) 50,000 IUNITS PO WEEKLY History Medical History General CAD? No Angina: Yes MS: No Hypertension? No Hyperlipidemia? Yes CHF? No DVT? No PE? No COPD? No Asthma? No Anemia? No GERD? Yes Gastric ulcers? No GI Bleed? No Hernia? Yes Thyroid Problems? No Hypothyroidism? No CVA? No Seizures? No Diabetes? No Renal Insuffiency? No End Stage Renal Disease? No UTI? Yes Stones? No BPH? No GB Disease: Yes Nephritic Syndrome? No Asplenia? No Hepatitis? No Sickle Cell Disease? No Arthritis? Yes Migraines? Yes Cataracts? No Glaucoma? No MRSA? No HIV? No TB? No Anxiety? Yes Depression? No Cancer? No More? 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 Respiratory denies cough, denies shortness of breath, denies wheezing Cardiovascular see HPI, chest pain, denies palpitations, denies syncope Gastrointestinal denies abdominal pain, denies diarrhea, denies vomiting Genitourinary denies: dysuria, frequency, hesitancy, hematuria. Musculoskeletal denies back pain, denies joint pain, denies joint swelling, denies neck pain Skin denies rash Psychiatric/Neurological denies headache, denies seizure Physical Exam Vital Signs Vital Signs Date Time Temp Pulse Resp B/P Pulse O2 O2 Flow FiO2 Ox Delivery Rate 09/098 98.1 87 18 108/65 99 09/095 89 16 119/64 98 09/091 98.1 107 20 125/75 100 - WBC >12,000 or <4,000 or 10% bands? 2 or more SIRS Criteria Met? B/P:119/64 MAP:91 Creatinine >2.0? UA output<0.5ml/kg/hr for 2 hrs? Platelet count >100,000? Lactate >2.0mmol/1? INR >1.2 or PTT > than 60 sec? Evidence of Organ Dysfunction? Provider documented clinical suspician of infection? N Sepsis Criteria Count: 2 Sepsis Risk: Possible Sepsis Risk General Appearance no apparent distress Eye Exam - bilateral eye PERRL, bilateral eye EOMI Ear, Nose, Throat normal ENT inspection Neck supple Respiratory Status No: respiratory distress. Lung Sounds bilateral: lungs clear. 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 No Results/Orders Laboratory Tests 09/09/170: Sodium 140, Potassium 3.4 L, Chloride 103, Carbon Dioxide 31, BUN 10, Creatinine 0.8, Estimated Creat Clear 169, Estimated GFR (MDRD) 78, Glucose 77, Calcium 8.7, Total Bilirubin 0.5, AST 19, ALT 23, Alkaline Phosphatase 92, Creatine Kinase 73, CK-MB (CK-2) Rel Index 1.5, CK and CKMB Interp 1.1, Troponin I < 0.02, Total Protein 7.8, Albumin 3.6, Globulin 4.2 H, Albumin/Globulin Ratio 0.9 L, WBC 7.6, RBC 4.71, Hgb 13.8, Hct 41.1, MCV 87.1, RDW 12.8, Plt Count 237, MPV 6.8 L, Gran % 73.2, Gran # 5.6, Lymphocytes % 21.6, Monocytes % 3.9, Eosinophils % 0.9, Basophils % 0.3, Lymphocytes # 1.6, Monocytes # 0.3, Eosinophils # 0.1, Basophils # 0.0, PUBS MCHC 33.7, MCH 29.4 Current Medication Orders Sig/[place] Start time Last Medication Dose Route Stop Time Status Admin Aspirin 325 MG ONCE ONE 09/09 2330 DC 09/09 PO 09/09 2331 2329 Aspirin 0 .STK-MED ONE 09/09 2328 DC .ROUTE Sodium Chloride 10 ML PRN PRN 09/09 2230 AC IV 09/10 2229 Orders Procedure Date/time Status Decision to admit 09/09 2352 Active ELECTROCARDIOGRAM REQUEST 09/09 2229 Active CHEST(2 VIEWS-NOT PORTABLE) 09/09 2229 Active IV SALINE LOCK 09/09 2229 Active CBC WITH AUTO DIFF 09/09 2229 Complete CARDIAC ENZYMES 09/09 2229 Complete CHEM 12 PROFILE 09/09 2229 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 ST/Twave chgs XRAY/CT/US XRAY/CT/US XRAY chest XR interpretation by reviewed by me Xray Results normal/NAD MANDY Score for N-Stemi/Angina MANDY N-STEMI SCORE MANDY N-STEMI SCORE Response Value Age of patient Less than 65 yrs 0 Number of risk factors for CAD Presence of 3 or more 1 Prior coronary artery stenosis (seen in angiography) Less than 50% 0 ST-Segment deviation on ECG (>1 min) Absent 0 Prior aspirin intake No ASA in the last 7 days 0 Severe anginal chest pain 2 or more episodes/24hr 1 Elevated cardiac markers(CK-MB or troponin) Absent 0 Total 2 Risk Stratification 0-2= Low Risk Patients Departure Departure Time of Disposition 2357 Disposition Still a Patient Clinical Impression Primary Impression: Chest pain Qualifiers: Chest pain type: precordial pain Qualified Code: R07.2 - Precordial pain Condition STABLE Referrals Evon Gonzales APRN (Family) discussed with dr benton ED Critical Care Critical Care No at [id number]
--- OUTSIDE RECORDS SUMMARY | 2017-09-09 23:22 | External Medical Summary Rpt | CCD ---
Author Author , YENNY DYKESISABEL Address Unknown Phone [email or web address] Immunization Name Date Rout CVX Reac Dose Comm Prov Is Faci e tion ent ider Refu lity Give sed n Infl 09-0 0.5 Hist PD20 No PD20 uenz 7-20 mL oric 255 255 a 17 al Quad Info rmat W/Pr ion es - Sour ce Unsp ecif ied Tdap 10-0 115 0.50 Hist [facility] No H149 , 7-20 mL oric Adso 16 al APRI rbed Info L rmat ion - Sour ce Unsp ecif ied Td, 12-2 139 999 Hist [place] UF 1-20 oric 06 al Info rmat ion - Sour ce Unsp ecif ied Td, 02-2 139 999 Hist [place] UF 6-19 oric 97 al Info rmat ion - Sour ce Unsp ecif ied MMR 07-2 3 999 Hist [place] 4-19 oric 93 al Info rmat ion - Sour ce Unsp ecif ied Td, 05-0 139 999 Hist [place] UF 1-19 oric 87 al Info rmat ion - Sour ce Unsp ecif ied MMR 05-2 3 999 Hist [place] 5-19 oric 77 al Info rmat ion - Sour ce Unsp ecif ied Ward 03-0 89 999 Hist [place] o, 2-19 oric UF 77 al Info rmat ion - Sour ce Unsp ecif ied DTP 03-0 1 999 Hist [place] 2-19 oric 77 al Info rmat ion - Sour ce Unsp ecif ied DTP 05-0 1 999 Hist [place] 9-19 oric 73 al Info rmat ion - Sour ce Unsp ecif ied Ward 05-0 89 999 Hist [place] o, 9-19 oric UF 73 al Info rmat ion - Sour ce Unsp ecif ied MMR 11-0 3 999 Hist [place] 8-19 oric 72 al Info rmat ion - Sour ce Unsp ecif ied Ward 05-1 89 999 Hist [place] o, 7-19 oric UF 72 al Info rmat ion - Sour ce Unsp ecif ied Ward 04-0 89 999 Hist [place] o, 5-19 oric UF 72 al Info rmat ion - Sour ce Unsp ecif ied DTP 03-2 1 999 Hist [place] 2-19 oric 72 al Info rmat ion - Sour ce Unsp ecif ied Ward 02-0 Intr 89 999 Hist [place] o, 2-19 amus oric UF 72 cula al r Info rmat ion - Sour ce Unsp ecif ied DTP 02-0 1 999 Hist [place] 2-19 oric 72 al Info rmat ion - Sour ce Unsp ecif ied DTP 01-0 Intr 1 999 Hist [place] 1-19 amus oric 72 cula al r Info rmat ion - Sour ce Unsp ecif ied
--- OUTSIDE RECORDS SUMMARY | 2017-09-09 23:22 | External Medical Summary Rpt | CCD ---
Author Author , YENNY DYKESISABEL Address Unknown Phone [email or web address] Immunization Name Date Rout CVX Reac Dose [...] ecif ied Td, 12-2 139 999 Hist [place] UF 1-20 oric 06 al Info rmat ion - Sour ce Unsp ecif ied Td, 02-2 139 999 Hist [place] UF 6-19 oric 97 al Info rmat ion - Sour ce Unsp ecif ied MMR 07-2 3 999 Hist [place] 4-19 oric 93 al Info rmat ion - Sour ce Unsp ecif ied Td, 05-0 139 999 Hist [place] UF 1-19 oric 87 al Info rmat ion - Sour ce Unsp ecif ied MMR 05-2 3 999 Hist [place] 5-19 oric 77 al Info rmat ion - Sour ce Unsp ecif ied Ward 03-0 89 999 Hist [place] o, 2-19 oric UF 77 al Info rmat ion - Sour ce Unsp ecif ied DTP 03-0 1 999 Hist [place] 2-19 oric 77 al Info rmat ion - Sour ce Unsp ecif ied DTP 05-0 1 999 Hist [place] 9-19 oric 73 al Info rmat ion - Sour ce Unsp ecif ied Ward 05-0 89 999 Hist [place] o, 9-19 oric UF 73 al Info rmat ion - Sour ce Unsp ecif ied MMR 11-0 3 999 Hist [place] 8-19 oric 72 al Info rmat ion - Sour ce Unsp ecif ied Ward 05-1 89 999 Hist [place] o, 7-19 oric UF 72 al Info rmat ion - Sour ce Unsp ecif ied Ward 04-0 89 999 Hist [place] o, 5-19 oric UF 72 al Info rmat ion - Sour ce Unsp ecif ied DTP 03-2 1 999 Hist [place] No [place] 2-19 oric 72 al Info rmat ion - Sour ce Unsp ecif ied Ward 02-0 Intr 89 999 Hist [place] o, 2-19 amus oric UF 72 cula al r Info rmat ion - Sour ce Unsp ecif ied DTP 02-0 1 999 Hist [place] 2-19 oric 72 al Info rmat ion - Sour ce Unsp ecif ied DTP 01-0 Intr 1 999 Hist [place] 1-19 amus oric 72 cula al r Info rmat ion - Sour ce Unsp ecif ied
[2017-09-10] VITALS (7 sets, daily range): BP systolic 94–124; BP diastolic 55–75
--- OUTSIDE RECORDS SUMMARY | 2017-09-10 00:20 | External Medical Summary Rpt | CCD ---
Author Author , YENNY Organization YENNY Address Unknown Phone [email or web address] Care Team Providers Care School Clerk Name Role Phone ALFARIS MOH, ALFARIS Unavailable Unavailable MOH [facility] Un[facility] [place]available [place], [facility] [place] YVETTE JURADO MD, PSC, Unavailable Unavailable YVETTE JURADO MD, PSC ARNOLD HUBER, ARNOLD Unavailable Unavailable HUBER ARNOLD HUBER, ARNOLD Unavailable Unavailable HUBER ATKINS TRA, ATKINS Unavailable Unavailable TRA ATKINS TRA, ATKINS Unavailable Unavailable TRA [facility] Unavailable Unavailable [facility] Unavailable Unavailable MEDICAL GROUP, [facility] Unavailable Unavailable [facility], [facility] Unavailable Unavailable OF [facility], [facility] CHANEL BUCHANAN Unavailable Unavailable BEINEKE D, BEINEKE D Unavailable Unavailable BEINEKE CARMEN, BEINEKE Unavailable Unavailable CARMEN DUMONT HOW, DUMONT Unavailable Unavailable HOW BESSON, BESSON Unavailable Unavailable BESSON DOMINIQUE, BESSON Unavailable Unavailable DOMINIQUE [facility] Unavailable Unavailable [facility], [facility] BOLIEK KADIE, BOLIEK Unavailable Unavailable KADIE CERRATO, CERRATO Unavailable Unavailable CERRATO ALL, CERRATO ALL Unavailable Unavailable [facility] Unavailable Unavailable [facility], [facility] Unavailable Unavailable SERVICE, [facility] Unavailable Unavailable SERVICE, [facility] BUX, BUX Unavailable Unavailable SVITLANA KILO, SVITLANA Unavailable Unavailable KILO CASE JUS, CASE JUS Unavailable [facility]available [facility] Unavailable Un[facility], [facility] Unavailable Unavailable [facility], [facility] CHESTNUT, CHESTNUT Unavailable Unavailable HUMPHREY, HUMPHREY [...] , СВЕТЛАНА, Unavailable Unavailable JR SOTOMAYOR, JR SCOTTZ, Unavailable Unavailable СВЕТЛАНА, JR ELZ ANKUR, ANKUR Unavailable Unavailable ANKUR BRYCE, ANKUR Unavailable Unavailable BRYCE ANKUR BRYCE, ANUKR Unavailable Unavailable BRYCE ANKUR, BK S, Unavailable Unavailable ANKUR, BK S [facility] Unavailable Unavailable [facility], [facility] Unavailable Unavailable HOSPITA, [facility] Unavailable Unavailable HOSPITA, [facility], Unavailable Unavailable [facility] RODRIGUEZ TRI, RODRIGUEZ TRI Unavailable Unavailable ANDREWS RHO, ANDREWS Unavailable Unavailable [facility] Unavailable Unavailable CENTER, [facility] Unavailable Unavailable INC, [facility] Unavailable [facility]available [facility]OSPITAL P, [facility] BOYER CHRISTEL, BOYER CHRISTEL Unavailable Unavailable [facility], Unavailable Unavailable [facility] JAQUEZ, JAQUEZ Unavailable Unavailable VAUGHN TERA, VAUGHN Unavailable Unavailable TERA ADASM, ADAMS Unavailable Unavailable ILUYOMADE ROT, Unavailable Unavailable [facility]OT DUARTE, DUARTE Unavailable Unavailable [facility] Unavailable Unavailable GROUP PS, [facility] Unavailable Unavailable [facility], [facility] COUNTS INCLUDE 234 BEDS AT THE [facility] Unavailable Unavailable MEDICAL G, COUNTS INCLUDE 234 BEDS AT THE [facility] MEDICAL G ELYSSA BURNETT, Unavailable Unavailable ELYSSA Burnett MD, Unavailable Unavailable Elysas Burnett MD KRASNOPOLSKY LAUREN, Unavailable Unavailable KRASNOPOLSKY [...] JR DWI [facility] Unavailable Unavailable SPECIALISTS,, [facility], [facility] Unavailable Unavailable [facility], [facility] BRITTNY, BRITTNY Unavailable Unavailable BRITTNY [...] Unavailable SOTINGEANU CARMEN [facility] Unavailable Unavailable EMERGENCY PHYS, [facility] Un[facility], [facility] STROUB, STROUB Unavailable Unavailable ZAVALA, ZAVALA Unavailable Unavailable [facility] Unavailable Unavailable [address]591, [facility] FOR, WALKER Unavailable Unavailable FOR [facility] Unavailable [facility]available DEPT [facility] Unavailable Unavailable DEPT JAZZ, [facility] DEPT JAZZ SANCHEZ, SANCHEZ [...] HOSP INC R51 HEADACHE 07-15-2017 [facility] SHERIFF, [facility] [id number] OTHER LONG 07-15-2017 [facility] TERM [facility] CURRENT INC DRUG THERAPY J309 ALLERGIC 07-11-2017 [facility] RHINITIS PHYSICIANS UNSPECIFIED GROUP J320 CHRONIC 07-11-2017 [facility] MAXILLARY PHYSICIANS SINUSITIS GROUP Z1231 ENCOUNTER 07-09-2017 [facility] SCREENING MEDICAL MAMMO MALIG IMAGING ASS NEOPLASM BREAST E6601 MORBID 07-08-2017 [facility] OBESITY DUE MEDICAL TO EXCESS GROUP CALORIES K5900 CONSTIPATIO 07-08-2017 [facility] UNSPECIFIED MEDICAL GROUP R0981 NASAL 07-08-2017 [facility] WARD PHYSICIANS, [facility] R110 NAUSEA 07-08-2017 [facility] R635 ABNORMAL 07-08-2017 [facility] WEIGHT [facility]ICAL GROUP Z6841 BODY MASS 07-08-2017 [facility] INDEX BMI HEALTH 40.0-44.9 MEDICAL ADULT GROUP [id number] BARIATRIC 07-08-2017 [facility] SURGERY HEALTH STATUS MEDICAL GROUP R202 PARESTHESIA 07-07-2017 [facility] NEUROLOGY T71261 UNSPECIFIED 06-30-2017 [facility] ASTHMA PHYSICIANS, UNCOMPLICAT [facility] ED H524 PRESBYOPIA 06-27-2017 SCIFRCANELO Z539 PROCEDURE & 06-26-2017 [facility] HEALTH NOT CARRIED [place] OUT UNS REASON B370 CANDIDAL 06-22-2017 [place] STOMATITIS [facility] INC R1084 GENERALIZED 06-20-2017 [facility] ABDOMINAL PHYSICIANS, PAIN PLLC R109 UNSPECIFIED 06-20-2017 [facility] ABDOMINAL MEDICAL PAIN IMAGING ASS R140 ABDOMINAL 06-20-2017 [facility] DISTENSION MEDICAL GASEOUS IMAGING ASS J3501 CHRONIC 06-19-2017 [facility] TONSILLITIS PHYSICIANS GROUP J301 ALLERGIC 06-11-2017 [facility] RHINITIS [facility] DUE TO [place] POLLEN J3081 ALLERG 06-11-2017 [facility] RHINITIS [facility] D/T ANIMAL [place] CAT DOG HAIR & DANDER J3089 OTHER 06-11-2017 [facility]IC [facility] RHINITIS [place] J4530 MILD 06-11-2017 [facility] PERSISTENT PARTNERS OF ASTHMA [place] UNCOMPLICAT ED V16603 OTHER 06-11-2017 [facility] ASTHMA EQUIPMENT INC Y57241 ALLERGY TO 06-11-2017 [facility] OTHER FOODS [facility] [place] R002 PALPITATION 06-10-2017 [facility] P [id number] UNS INJURY 06-10-2017 [facility] LOWER MEDICAL LEG INITIAL IMAGING ASS ENCOUNTER R079 CHEST PAIN 06-04-2017 [place] UNSPECIFIED INA INTERNAL MED [id number] SPRAIN 06-01-2017 [place] UNSPECIFIED [facility] P KNEE INITIAL ENCNTR K542VRV UNS ADVERS 06-01-2017 [facility] EFFECT PHYSICIANS, DRUG/MEDICA [facility] MENT INITIAL ENCNTR [id number] FALL SAME 06-01-2017 [facility] P FURN INITIAL ENC A69121 BEDROOM 06-01-2017 [place] [facility] P OCCUR EXT CAUSE E785 HYPERLIPIDE 05-19-2017 [facility] [place] UNSPECIFIED ANESTHESIA K449 DIAPHRAGMAT 05-19-2017 [facility] HERNIA [place] W/O ANESTHESIA OBSTRUCTION OR GANGRENE R1310 DYSPHAGIA 05-19-2017 [facility] UNSPECIFIED PHYS SURG CTR J069 ACUTE UPPER 05-05-2017 [place] [facility] RESPIRATORY INC INFECTION UNSPECIFIED R072 PRECORDIAL 05-05-2017 [facility] , R0789 OTHER CHEST 05-04-2017 [facility] PAIN PHYSICIANS, PLLC Z809 FAMILY 05-04-2017 [place] HISTORY OF [facility] MALIGNANT INC NEOPLASM UNSPECIFIED Z8249 FAMILY HX 05-04-2017 [place] [facility]MIC [facility] HRT DZ OT HOSPITAL P DZ CIRC SYSTEM Z833 FAMILY 05-04-2017 [place] HISTORY OF [facility] DIABETES [facility] P MELLITUS T34883 ENCOUNTER 04-30-2017 [facility] FOR HEALTH PREPROCEDUR [place] [facility] CARIOVASCUL AR EXAM I85374 ENCOUNTER 04-30-2017 [facility] FOR [facility]ALTH PREPROCEDUR [place] LABORATORY EXAM B977 PAPILLOMAVI 04-29-2017 [facility] OF DZ CLASSIFIED ELSEWHERE N870 MILD 04-29-2017 [facility] DYSPLASIA G59037 ATYP SQ 04-29-2017 [facility] CELLS UNDET PHYSICIANS GROUP SIGNIFICANC E CYTOL SMER CERV W36082 CERV HIGH 04-29-2017 [facility] RSK HUMAN PHYSICIANS PAPILLOMAVI GROUP RAJ DNA TEST POS 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 04-10-2017 [facility] ESOPHAGUS [place] D49047 DECREASED 04-09-2017 [place] WHITE BLOOD [facility] CELL COUNT [facility] P UNSPECIFIED R1319 OTHER 04-08-2017 [facility] DYSPHAGIA [facility]ALTH MEDICAL GROUP [id number] SPONDYLOSIS 04-07-2017 YVETTE JURADO, W/O , PSC MYELOPATH/R ADICULOPATH Y LUMB RGN M479 SPONDYLOSIS 04-07-2017 [facility] UNSPECIFIED INC 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, PSC RAL DISC DEGEN LUMBAR REGION R350 FREQUENCY 03-27-2017 [facility] MICTURITION [facility] P R3915 URGENCY OF 03-27-2017 [place] [facility]ATION [facility] P R200 ANESTHESIA 03-25-2017 [facility] OF SKIN MEDICAL IMAGING ASS R42 DIZZINESS 03-25-2017 [facility] ASS D709 NEUTROPENIA 03-24-2017 [facility] HOSPITAL P [id number] ADVERSE EFF 03-22-2017 [facility] PHYSICIANS, GLUCOCORTIC PLLC DS SYNTH ANALOG INIT ENC [id number] ADVERS EFF 03-22-2017 [place] OTH RX MEDS [facility] BIO INC SUBSTANCES INIT ENC G39103 OTHER 03-21-2017 [place] SPONDYLOSIS [facility] LUMBAR INC REGION M5116 INTERVERTEB 03-21-2017 [place] RAL DISC [facility] D/O INC W/RADICULOP ATHY LUMB RGN G62628 ENCOUNTER 03-19-2017 [facility] GENERAL RTN W/ABNORMAL FIND O91831 ENCOUNTER 03-19-2017 [facility] TACK PULLER EXAM PHYSICIANS GENERAL RTN GROUP W/O ABNORMAL FIND H6982 OTHER SPEC 03-13-2017 [facility] DISORDERS PHYSICIANS EUSTACHIAN GROUP TUBE LT EAR 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[facility] UNI LT EAR PHYSICIANS UNRESTIRCT GROUP CONTRALAT SIDE R300 DYSURIA 03-12-2017 [facility] SHERIFF, PLLC M4726 OTH 03-03-2017 [place] SPONDYLOSIS [facility] INC W/RADICULOP ATHY LUMBAR REGION N390 URINARY 03-03-2017 [facility] TRACT [facility] INFECTION INC SITE NOT SPECIFIED R911 SOLITARY 02-27-2017 [facility] PULMONARY MEDICAL NODULE IMAGING ASS Z09 ENC F/U 02-27-2017 [facility] EXAM AFTR MEDICAL CMPL TX OTH IMAGING ASS THAN MALIG NEOPLSM E669 OBESITY 02-25-2017 [facility] UNSPECIFIED PHYSICIANS GROUP I119 HYPERTENSIV 02-25-2017 [facility] E HEART PHYSICIANS DISEASE GROUP WITHOUT HEART FAILURE R0600 DYSPNEA 02-25-2017 [facility] UNSPECIFIED PHYSICIANS GROUP J310 CHRONIC 02-17-2017 [facility] RHINITIS PHYSICIANS GROUP J329 CHRONIC 02-17-2017 [facility] SINUSITIS PHYSICIANS UNSPECIFIED GROUP J342 DEVIATED 02-17-2017 [facility] NASAL PHYSICIANS SEPTUM GROUP M5416 RADICULOPAT 02-17-2017 [place] HY LUMBAR [facility] REGION INC M545 LOW BACK 02-17-2017 YVETTE JURADO, PAIN , PSC I998 OTHER 02-11-2017 [place] DISORDER OF [facility] INC CIRCULATORY SYSTEM R0602 SHORTNESS 02-11-2017 [place] OF BREATH [facility] INC G8929 OTHER 02-10-2017 [place] CHRONIC VALLEY PAIN INTERNAL MED G30647 PAIN IN 02-10-2017 [place] LEFT VALLEY SHOULDER INTERNAL MED M5440 LUMBAGO 02-10-2017 [place] WITH VALLEY SCIATICA INTERNAL UNSPECIFIED MED SIDE R5383 OTHER 01-31-2017 [facility] FATIGUE PHYSICIANS GROUP M792 NEURALGIA 01-27-2017 [place] AND VALLEY NEURITIS INTERNAL UNSPECIFIED MED I10 ESSENTIAL 01-26-2017 [facility] PRIMARY [facility] HYPERTENSIO INC N M542 CERVICALGIA 01-26-2017 [facility] INC B32923 SPONDYLOSIS 01-22-2017 [facility] W/O MEDICAL MYELOPATH/R IMAGING ASS ADICULOPATH Y CERV RGN D301IBQ STRAIN 01-22-2017 [facility] MUSCLE FASC PHYSICIANS, & TENDON PLLC NECK LEVL INIT ENC R18170N STRAIN 01-16-2017 [facility] MUSCLE & PHYSICIANS, TENDON UNS PLLC WALL THORAX INIT ENC Z882 ALLERGY 01-11-2017 [place] [facility] S STATUS Z886 ALLERGY 01-11-2017 [place] [facility] AGENT STATUS Z888 ALLERGY 01-11-2017 [place] [facility]US [facility]TH [facility] BIOLOG SUBSTAN STS H9203 OTALGIA 01-10-2017 [place] BILATERAL [facility] INC I209 ANGINA 01-10-2017 [facility] PECTORIS [facility] UNSPECIFIED INC R071 CHEST PAIN 01-07-2017 [place] ON VALLEY BREATHING INTERNAL MED Z720 TOBACCO USE 01-04-2017 [facility] INC O04666 MUSCLE 12-25-2016 [place] SPASM OF [facility] BACK INC R1013 EPIGASTRIC 12-25-2016 [place] PAIN INA INTERNAL MED R4702 DYSPHASIA 12-25-2016 [place] INA INTERNAL MED B078 OTHER VIRAL 12-23-2016 [facility] W[facility] K30 FUNCTIONAL 12-23-2016 [facility] L218 OTHER 12-23-2016 [facility] SEBORRHEIC DERMATITIS L538 OTHER 12-23-2016 [facility] SPECIFIED ERYTHEMATOU S CONDITIONS R208 OTHER 12-23-2016 [facility] DISTURBANCE S OF SKIN SENSATION R238 OTHER SKIN 12-23-2016 [facility] CHANGES K5903 DRUG 12-17-2016 [place] INDUCED [facility] CONSTIPATIO INC N [id number] ADVERSE 12-17-2016 [facility] EFFECT [facility] OTHER INC OPIOIDS INITIAL ENCOUNTER K910 VOMITING 12-12-2016 [place] FOLLOWING [facility] GASTROINTES INC TINAL SURGERY R600 LOCALIZED 12-12-2016 [facility] EDEMA PHYSICIANS, PLLC R609 EDEMA 12-12-2016 [place] UNSPECIFIED [facility] INC C86909 OTHER 12-12-2016 [facility] SPECIFIED MEDICAL POSTPROCEDU IMAGING ASS [facility] STATES N393 STRESS 12-11-2016 [facility] INCONTINENC HEALTH E FEMALE MONALISA MALE Z903 ACQUIRED 12-11-2016 [facility] ABSENCE OF HEALTH STOMACH MONALISA A29227 ENCOUNTER 12-05-2016 [facility] FOR OTHER HEALTH PREPROCEDUR MEDICAL AL GROUP EXAMINATION K210 GASTRO-ESOP 11-22-2016 [facility] HAGEAL PHYSICIANS, REFLUX [facility] DISEASE W/ ESOPHAGITIS K625 HEMORRHAGE 11-19-2016 [place] OF ANUS AND INA RECTUM INTERNAL MED M546 PAIN IN 11-08-2016 [facility] THORACIC PHYSICIANS, SPINE [facility] I99557 PAIN IN 10-14-2016 [facility] UNSPECIFIED MEDICAL HIP IMAGING ASS M533 SACROCOCCYG 10-14-2016 [facility] EAL MEDICAL DISORDERS IMAGING ASS NEC O555CZU CONTUSION 10-14-2016 [facility] LOWER BACK PHYSICIANS, & PELVIS [facility] INITIAL ENCOUNTER D0108XI UNSPECIFIED 10-14-2016 [facility] INJURY MEDICAL LOWER BACK IMAGING ASS INITIAL ENCOUNTER E8535RE UNSPECIFIED 10-14-2016 [facility] INJURY OF MEDICAL PELVIS IMAGING ASS INITIAL ENCOUNTER H3581 RETINAL 10-11-2016 [facility] ANG EDEMA R040 EPISTAXIS 10-10-2016 [place] VALLEY INTERNAL MED E6609 OTHER 10-08-2016 [facility] OBESITY DUE BARIATRIC TO EXCESS SURGICAL CALORIES J3489 OTHER 10-06-2016 [facility] SPECIFIED PHYSICIANS, DISORDERS [facility] NOSE AND NASAL SINUSES R05 COUGH 10-06-2016 [facility] A6004 HERPESVIRAL 09-27-2016 [facility] PHYSICIANS VULVOVAGINI GROUP TIS N760 ACUTE 09-27-2016 [facility] VAGINITIS PHYSICIANS GROUP [id number] CONCUSSION 09-21-2016 [place] WITHOUT LOC [facility] INITIAL INC ENCOUNTER T5586HL UNSPECIFIED 09-21-2016 [facility] INJURY OF MEDICAL HEAD IMAGING ASS INITIAL ENCOUNTER H6903 PATULOUS 09-19-2016 [facility] JARON EUSTACHIAN TUBE BILATERAL B76570 UNSPECIFIED 09-18-2016 [facility] PHYSICIANS OBSTRUCTION GROUP EUSTACHIAN TUBE BILAT R590 LOCALIZED 09-04-2016 [facility] P Z6834 BODY MASS 09-04-2016 [facility] INDEX BMI HEALTH 34.0-34.9 MEDICAL ADULT GROUP K5909 OTHER 09-03-2016 [facility] N [facility]ILY [facility]INI R112 NAUSEA WITH 09-03-2016 [facility] VOMITING GROUND UNSPECIFIED FAMILY CLINI Z111 ENCOUNTER 09-02-2016 [facility] DEPT RESPIRATORY JAZZ TUBERCULOSI S M549 DORSALGIA 09-01-2016 [facility] UNSPECIFIED PHYSICIANS, PLLC R197 DIARRHEA 09-01-2016 [facility] UNSPECIFIED PHYSICIANS, PLL Z07206X ADVERSE 09-01-2016 [facility] P SRI INITIAL ENCOUNTER L94802 UNS PLACE 09-01-[address] [facility] P PL[address] OF OCCUR EXT R195 OTHER FECAL 08-30-2016 [place] [facility] ABNORMALITI INC ES Z202 CONTACT 08-30-2016 WITH DISTRICT EXPOSURE HLTH DEPT INFECT JAZZ SEXUAL MODE TRANSMS R5381 OTHER 08-29-2016 [facility] MALAISE PHYSICIANS GROUP R9431 ABNORMAL 08-29-2016 [facility] ELECTROCARD PHYSICIANS IOGRAM GROUP P83677 LYMPHOCYTOP 08-21-2016 [facility] ENIA [facility] INC J4520 MILD 08-21-2016 [facility] INTERMITTEN PARTNERS OF T [facility]HMA [place] UNCOMPLICAT ED A300ZPM OTHER 08-21-2016 [facility] ADVERSE PARTNERS OF FOOD [place] REACTIONS NEC SUBSEQUENT ENC M791 MYALGIA 08-17-2016 [facility] PH[facility]ICIANS, [facility] M898X9 OTHER 08-12-2016 [facility] SPECIFIED MEDICAL DISORDERS IMAGING ASS BONE UNSPECIFIED SITE R599 ENLARGED 08-12-2016 [facility] LYMPH NODES [facility] INC UNSPECIFIED R1314 DYSPHAGIA 08-10-2016 [facility] PHARYNGOESO PHYSICIANS, PHAGEAL PLL PHASE R5382 CHRONIC 08-07-2016 [place] FATIGUE [facility] UNSPECIFIED INC R591 GENERALIZED 08-05-2016 [facility] NODES [facility] P I208 OTHER FORMS 08-02-2016 [facility] OF ANGINA [facility] P D52500 PAIN IN 08-02-2016 [facility] RIGHT KNEE MEDICAL IMAGING ASS R55 SYNCOPE AND 08-02-2016 [facility] COLLAPSE PHYSICIANS, [facility] U958UKY UNSPECIFIED 08-02-2016 [facility] INJURY OF MEDICAL NECK IMAGING ASS INITIAL ENCOUNTER R8799WA UNS INJURY 08-02-2016 [place] RT LOWER MEDICAL LEG INITIAL IMAGING ASS ENCOUNTER N281 CYST OF 08-01-2016 [facility] P R209 UNSPECIFIED 07-29-2016 [facility] PHYSICIANS, DISTURBANCE PLLC S OF SKIN SENSATION K589 IRRITABLE 07-24-2016 [facility] BOWEL PHYSICIANS SYNDROME GROUP WITHOUT DIARRHEA R102 PELVIC AND 07-24-2016 [facility] PERINEAL PHYSICIANS PAIN GROUP N831 CORPUS 07-22-2016 [facility] LUTEUM CYST PHYSICIANS GROUP N920 EXCESS & 07-22-2016 [facility] FREQUENT PHYSICIANS MENSTRUATIO GROUP N W/REGULAR CYCLE Z77525E STRAIN UNS 07-22-2016 [facility] MUSCLE FASC PHYSICIANS, TEND THIGH PLLC RT INITIAL ENC Z7251 HIGH RISK 07-22-2016 [facility] INC R12 HEARTBURN 07-18-2016 [facility] HOSPITA H938X9 OTHER 07-17-2016 [facility] SPECIFIED PHYSICIANS DISORDERS GROUP OF EAR UNSPECIFIED EAR J302 OTHER 07-17-2016 [facility] SEASONAL PHYSICIANS ALLERGIC GROUP RHINITIS T5069OP LACERATION 07-13-2016 [facility] W/O FOREIGN PHYSICIANS, BODY SCALP PLLC INITIAL ENC R6889 OTHER 07-10-2016 [facility] SYMPTOMS HOSPITA AND SIGNS E780 PURE 07-09-2016 [facility] HYPERCHOLES BARIATRIC TEROLEMIA SURGICAL E876 HYPOKALEMIA 07-09-2016 [facility] P H6990 UNSPECIFIED 07-07-2016 [facility]ERG[facility]Y TUBE PHYS PSC DISORDER UNS EAR H938X3 OTHER 07-07-2016 [facility] SPECIFIED HEALTH DISORDERS [place] OF EAR BILATERAL M5432 SCIATICA 07-07-2016 [facility] LEFT SIDE EMERGENCY PHYS PSC R1010 UPPER 07-05-2016 [facility] ABDOMINAL PHYSICIANS, PAIN PLLC UNSPECIFIED I880 NONSPECIFIC 06-27-2016 [facility] MESENTERIC PHYSICIANS, PLLC LYMPHADENIT IS R100 ACUTE 06-27-2016 [facility] ABDOMEN AMBULANCE SERVICE R1031 RIGHT LOWER 06-26-2016 [facility] PAIN PHYS A76784 RIGHT LOWER 06-26-2016 [facility] ABD[facility]OSPITA TENDERNESS N200 CALCULUS OF 06-24-2016 [facility] KIDNEY MEDICAL IMAGING ASS M5386 OTHER 06-11-2016 [...] EXPS TO NONIONIZING RAD R9439 ABNORMAL 04-08-2016 [facility] RESULT OT HEALTH CARDIOVASCU MEDICAL LR FUNCTION [...] VALLEY IES NOT INTERNAL ELSEWHERE MED CLASSIFIED 06584 UNSPECIFIED 07-11-2015 [facility] VIRAL WARTS 2167 [...] SKIN 7020 ACTINIC 07-11-2015 [facility] KERATOSIS 47670 INFLAMED 07-11-2015 [facility] SEBORRHEIC KERATOSIS V700 ROUTINE 06-27-2015 [facility] DEPT [email or web address] FACL 26089 MORBID 06-20-2015 [facility] OBESITY BARIATRIC SURGICAL 28175 PAIN IN 06-20-2015 [facility] JOINT, SITE [facility] UNSPECIFIED 7823 EDEMA 06-20-2015 [facility] 06968 OTHER 06-20-2015 [facility] DYSPNEA AND [facility] RESPIRATORY ABNORMALITI ES 7871 HEARTBURN 07-28-2015 [facility] 7904 NONSPEC 06-20-2015 [facility] ELEVATION BARIATRIC OF LEVELS SURGICAL OF TRANSAMINAS E/LDH V4586 BARIATRIC 06-20-2015 [facility] SURGERY BARIATRIC STATUS SURGICAL V7612 OTHER 06-19-2015 [facility] SCREENING MEDICAL MAMMOGRAM IMAGING ASS 2564 POLYCYSTIC 06-12-2015 [place] OVARIES INA INTERNAL MED 2689 UNSPECIFIED 06-12-2015 [facility] VITAMIN D INA DEFICIENCY INTERNAL MED 5718 OTHER 06-12-2015 [place] CHRONIC VALLEY NONALCOHOLI INTERNAL C LIVER MED DISEASE 7905 OTHER 06-12-2015 [facility] NONSPECIFIC INA ABNORMAL INTERNAL SERUM MED ENZYME LEVELS 60530 UNSPEC 05-09-2015 [facility] DISORDERS PHYSICIANS BURSAE&TEND GROUP ONS SHOULDER REGION 7262 OTHER 05-09-2015 [facility] AFFECTIONS PHYSICIANS OF SHOULDER GROUP REGION NEC 18979 OBESITY, 05-04-2015 [facility] UNSPECIFIED OLOGY AND HEPATOL 3674 PRESBYOPIA 04-28-2015 [place] 54415 CHEST PAIN 04-28-2015 [facility] 93377 ABDOMINAL 04-25-2015 [facility] PAIN, COMMUNTIY UNSPECIFIED HOSPITA SITE 4019 UNSPECIFIED 04-16-2015 [facility] HYPERTENSIO INC N 5990 URINARY 04-16-2015 [facility], INFECTION [facility] SITE NOT SPECIFIED 7948 NONSPECIFIC 04-16-2015 [facility]AL [facility] RESULTS INC LIVR FUNCTION STUDY 5739 UNSPECIFIED 04-14-2015 [facility] [place] DISORDER RADIOLOGY OF LIVER 7906 OTHER 04-14-2015 [facility] ABNORMAL COMMUNTIY BLOOD HOSPITA CHEMISTRY 5939 UNSPECIFIED 04-06-2015 [place] DISORDER MEDICAL OF KIDNEY IMAGING ASS AND URETER 7891 HEPATOMEGAL 04-06-2015 [facility] Y OLOGY AND HEPATOL V140 PERSONAL 04-05-2015 [facility] ALLERGY TO HOSPITAL P PENICILLIN 75424 ABDOMINAL 04-03-2015 [facility] PAIN, GENERALIZED 5758 OTHER 04-01-2015 [facility] SPECIFIED [facility] DISORDER OF HOSPITAL P GALLBLADDER 85440 OTHER 04-01-2015 [facility] SPECIFIED MEDICAL DISORDER OF IMAGING ASS KIDNEY AND URETER 88899 ABDOMINAL 04-01-2015 [facility] PAIN RIGHT MEDICAL UPPER IMAGING ASS QUADRANT 53609 ABDOMINAL 04-01-2015 [facility] PAIN, [facility] EPIGASTRIC [facility]OSPITAL P 7295 PAIN IN 03-29-2015 [facility] SOFT COMMUNTIY TISSUES OF HOSPITA LIMB V4589 OTHER 03-29-2015 [facility] POSTSURGICA COMMUNTIY L STATUS HOSPITA OTHER 42841 OTHER 03-24-2015 [facility] MALAISE AND COMMUNTIY FATIGUE HOSPITA V6700 FOLLOW-UP 03-21-2015 [facility] [place] EXAMINATION RADIOLOGY FOLLOWING UNSPEC SURGERY 91513 ESOPHAGEAL 03-20-2015 [facility] REFLUX ANESTHESIA GROUP PS 6256 FEMALE 03-20-2015 [facility] STRESS COMMUNTIY INCONTINENC HOSPITA E 52428 PAIN IN 03-20-2015 [facility] JOINT, BARIATRIC MULTIPLE SURGICAL SITES 65030 DIASTASIS 03-20-2015 [facility] OF MUSCLE COMMUNTIY HOSPITA 7892 SPLENOMEGAL 03-20-2015 [facility] Y COMMUNTIY HOSPITA V8543 BODY MASS 03-20-2015 [facility] INDEX COMMUNTIY 50.0-59.9 HOSPITA ADULT 2639 UNSPECIFIED 03-14-2015 [facility] COMMUNTIY PROTEIN-TEA HOSPITA ORIE MALNUTRITIO N 72015 MIGRAINE 03-07-2015 [facility] UNSP W/O BARIATRIC 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 MIGRAINOSUS 11575 OTHER 03-07-2015 [facility] URINARY BARIATRIC INCONTINENC SURGICAL E 6929 CONTACT 03-06-2015 [facility] DERMATITIS& OTHER [place] DUE UNSPEC CAUSE 6822 CELLULITIS 03-02-2015 [facility] P V148 PERSONAL 03-02-2015 [facility] P SPEC MEDICINAL AGTS V571 OTHER 02-22-2015 [facility] THERAPY INC 2724 OTHER AND 02-20-2015 [facility]PECIFIED [facility] HYPERLIPIDE LILIANE 7245 UNSPECIFIED 02-20-2015 [facility] BACKACHE [facility] V7283 OTHER 02-20-2015 [facility] SPECIFIED [facility] PRE-OPERATI HOSPITA VE EXAMINATION 2875 UNSPECIFIED 02-15-2015 [facility] P PENIA 7932 NONSPC ABN 02-10-2015 [facility]OTH [facility] EXAM OTH INTRTHOR ORGN V7282 PRE-OPERATI 02-10-2015 [place] [facility] RESPIRATORY [facility] EXAMINATION 5930 NEPHROPTOSI 02-09-2015 [facility] P 7802 SYNCOPE AND 02-01-2015 [facility] G 4139 OTHER AND 01-18-2015 [place] UNSPECIFIED [facility] P PECTORIS 91606 SHORTNESS 01-18-2015 [place] OF [facility] 70462 OTHER CHEST 01-18-2015 [place] PAIN [facility] P 24950 OSTEOARTHRO 12-30-2014 [facility]EL NGO S INVLV MX SITES BUT [place] SPEC GEN 54128 PAIN IN 11-09-2014 [place] JOINT, MEDICAL SHOULDER IMAGING ASS REGION V5832 ENCOUNTER 11-09-2014 [place] FOR REMOVAL [facility] P 59264 PILAR CYST 11-02-2014 [facility] 96734 UNSPECIFIED 10-06-2014 [facility] INFE[facility] PHYS IN CCE & UNS SITE 7840 HEADACHE 10-06-2014 [facility] 90879 ATROPHIC 09-16-2014 [facility] WITHOUT HOSPITA MENTION OF HEMORRHAGE 94571 OTHER SPEC 09-16-2014 [facility] WITHOUT MENTION HEMORRHAGE 30138 DYSPHAGIA 09-16-2014 [place] UNSPECIFIED ANESTHESIA GROUP PS 6869 UNSPEC 08-17-2014 [facility] LOCAL INFECTION SKIN&SUBCUT ANEOUS TISSUE V7284 UNSPECIFIED 08-09-2014 [place] [facility] PRE-OPERATI INC VE EXAMINATION 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 7019 UNSPECIFIED 08-04-2014 [facility] HYPERTROPHI C&ATROPHIC CONDITION SKIN 05746 OTHER 08-04-2014 [facility] SEBORRHEIC KERATOSIS 7851 PALPITATION 08-04-2014 [facility] G V7281 PRE-OPERATI 07-21-2014 [facility] CARDIOVASCU MEDICAL G LAR EXAMINATION 10618 PAINFUL 07-05-2014 [facility] RESPIRATION V771 SCREENING 05-24-2014 [facility] DIABETES MELLITUS 470 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 4779 ALLERGIC 03-17-2014 [facility] RHINITIS CAUSE UNSPECIFIED 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 E849.8 E849.8 12-31-2013 [place] ACCIDENT IN [facility] E885.9 E885.9 FALL 12-31-2013 [place] FROM [facility] SLIPPING, Hospital TRIPPING, OR STUMBLING [facility] V14.0 V14.0 12-31-2013 [place] HX-PENICILL [facility] IN ALLERGY Hospital V14.1 V14.1 12-31-2013 [place] HX-ANTIBIOT [facility] ALLERGY Hospital NEC V01.6 V01.6 01-11-2013 [place] VENEREAL [facility] DIS CONTACT Hospital V0481 NEED 01-06-2009 [facility]/CO PROPHYLACTI HEALTH C CENTRAL VACCINATION BANK ACCT &INOCULATIO N FLU 59394 PAIN IN 01-04-2009 [place] [facility] PELVIC IMAGING REG[facility] AND ASSOCIATES THIGH 62125 DISPLCMT 01-04-2009 [place] LUMBAR MEDICAL INTERVERT 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 8460 SPRAIN AND 01-04-2009 [employer] LUMBOS[employer]CR[employer] 8472 LUMBAR 01-04-2009 [facility] STRAIN INC 08420 CONTUSION 01-04-2009 [employer] BACK [employer] 34078 CONTUSION 01-04-2009 [employer] BUTTOCK [employer] E8490 PLACE OF 01-04-2009 [place] OCCURRENCE, MEDICAL HOME IMAGING ASSOCIATES E8859 FALL FROM 01-04-2009 [place] OTHER MEDICAL SLIPPING IMAGING TRIPPING OR ASSOCIATES [...] 48 -1 -0 .0 00 IN ti [place] 70 1- 6- 00 00 IC ve [...] 17 79 PH E 6 94 AR UT MA OP CY 50 MC G SP [...] 43 ZA 91 17 17 63 PH UT 0 09 AR IN MA E CY [...] 17 79 PH E 6 94 AR UT MA OP CY 50 MC G SP [...] L CY 4 MG TA BL ET UT 00 08 09 8. 2 00 CL Ac OM 59 -1 -0 00 00 IN ti ET 15 6- 8- 0 00 IC ve CARTY 30 20 20 43 ZI 71 17 17 96 PH NE 0 36 AR MA 25 CY MG TA BL ET UT 59 08 09 10 5 00 RI Ac ED 74 -0 -0 .0 00 TE ti NI 60 8- 1- 00 01 ve SO 17 20 20 19 AI NE 50 17 17 46 D 6 80 PH 20 AR MA MG CY TA #3 BL 93 ET 8 CY 00 08 09 28 14 00 CL Ac CL 59 -0 -0 .0 00 IN ti OB 13 4- 1- 00 00 IC ve EN 25 20 20 43 ZA 60 17 17 63 PH UT 1 09 AR IN MA E CY [...] MA 10 CY MG TA BL ET CE 69 07 08 30 10 00 [...] 0 CY MG CA PS UL E [place] 60 07 08 [address] 43 -3 -2 0. 00 TE ti AT 20 0- 5- 00 01 ve IN 53 20 20 0 19 AI 71 17 17 37 D 10 6 30 PH 0, AR 00 MA 0 CY UN IT #3 /M 93 L 8 GOMEZ SP FL 00 07 08 10 30 00 CL Ac OV 17 -1 -1 .5 00 IN ti EN 30 9- - 99 00 IC ve T 71 20 20 43 HF 82 17 17 73 PH A 0 72 AR 44 MA CY MC G IN CARTY LE R RA 00 07 08 60 30 00 [...] CY CA PS UL E CY 00 07 08 28 14 00 CL Ac CL 59 -0 -0 .0 00 IN ti OB 13 8- 4- 00 00 IC ve EN 25 20 20 43 ZA 60 17 17 63 PH UT 1 09 AR IN MA E CY [...] 43 RA 30 17 17 61 PH NY 5 60 AR DE MA CY 10 MG TA BL ET FL 50 07 08 16 30 00 CL Ac UT 38 -0 -0 .0 00 IN ti IC 30 7- 4- 00 00 IC ve 70 20 20 42 ON 01 17 17 79 PH E 6 94 AR UT MA OP CY 50 MC G SP [...] MA 10 CY MG TA BL ET PE 00 07 08 59 1 00 [...] CY (1 37 MC G) SP RY LO 68 06 07 30 30 00 [...] 17 79 PH E 6 94 AR UT MA OP CY 50 MC G SP RA Y AZ 50 06 07 6. 5 00 [...] YL 15 2- 7- 00 01 ve UT 02 20 20 18 AI ED 20 17 17 75 D NI 7 72 PH SO AR LO MA NE CY 4 #3 MG 93 8 DO SE PK GA 45 05 06 90 30 00 [...] 43 ZA 60 17 17 25 PH UT 1 00 AR IN MA E CY [...] -0 .0 00 IN ti TA 20 1 00 IC ve DI 65 20 20 42 NE 08 17 17 35 PH 7 22 AR 10 MA CY MG TA BL ET FL 50 05 06 16 30 00 CL Ac UT 38 -1 -0 .0 00 IN ti IC 30 00 IC ve 70 20 20 42 ON 01 17 17 79 PH E 6 94 AR UT MA OP CY 50 MC G SP RA Y BU 00 05 06 90 30 00 CL Ac SP 37 -1 -0 .0 00 IN ti IR 81 1 00 IC ve ON 15 20 20 [...] 42 ZA 60 17 17 82 PH UT 1 16 AR IN MA E CY 5 MG TA BL ET FL 50 04 05 16 30 00 CL Ac UT 38 -1 -1 .0 00 IN ti IC 30 3- 2- 00 00 IC ve 70 20 20 42 ON 01 17 17 79 PH E 6 94 AR UT MA OP CY 50 MC G SP [...] 42 ZA 60 17 17 59 PH UT 1 23 AR IN MA E CY [...] 10 7- 1- 00 00 IC ve NY 47 20 20 42 01 17 17 [...] 0 CY MG CA PS UL E UT 65 03 03 20 5 00 CL [...] 1 70 PH CE AR TA MA NY CY NO PH #3 93 7. 8 [...] 17 53 PH E 6 48 AR UT MA OP CY 50 MC G SP [...] 42 ZA 60 17 17 30 PH UT 1 05 AR IN MA E CY [...] MG #3 TA 93 BL 8 ET UT 59 02 03 10 5 00 RI [...] 05 CY % SO ROSS TI ON AC 46 01 02 60 30 00 [...] 17 53 PH E 9 48 AR UT MA OP CY 50 MC G SP RA Y CY 00 02 02 14 7 00 CL Ac CL 59 -0 -2 .0 00 IN ti OB 15 1- 4- 00 00 IC ve EN 65 20 20 42 ZA 81 17 17 08 PH UT 0 66 AR IN MA E CY [...] #3 CA 93 PS 8 UL E 64 01 02 4. 28 [...] 5 25 PH CE AR TA MA [place] CY NO PH OF CY 7. NT [...] 00 0 UN IT ) LO 45 12 01 30 30 00 [...] 12 01 20 10 00 CL Ac UT 46 -2 -2 .0 00 IN ti [...] 12 01 14 7 00 CL Ac UT 46 -1 -2 .0 00 IN ti [...] 17 53 PH E 9 48 AR UT MA OP CY 50 MC G SP RA Y BU 00 02 0 No TA 60 -0 LB 32 7- Lo -A 54 20 ng CE 42 14 er TA 1 NY Ac N- ti CA ve FF 50 [...] 2- 6- 00 IC 10 EY ve UT 00 20 20 ED 10 09 09 PH NY NI 3 AR CH SO MA AE LO CY L NE S 4 MG DO SE PK CY 59 02 02 00 21 7 CL 18 GA Ac CL 74 -1 -2 .0 IN 75 IN ti OB 60 2- 6- 00 IC 11 EY ve EN 17 20 20 ZA 70 09 09 PH NY UT 6 AR CH IN MA AE E [...] Hgb A1c Bld (12-05-2016 11:40) Comment: The [place] [employer] recommends maintenance of Hemoglobin A1C [...] Procedure DOS Code Location Performer Comment LIPID 41368 [place] [facility] PANEL 7 [facility] INC INC IIV4 VACC 71058 [place] A[facility] SPLIT 7 [facility] VIRUS 0.5 INTERNAL ML DOS MED FOR IM USE BLOOD 55117 [place] [facility] COUNT 7 [facility] COMPLETE INC INC AUTO&AUTO DIFRNTL WBC COMPREHEN 89392 [place] SIVE 7 [facility] METABOLIC INC INC PANEL COLLECTIO 59162 [place] N VENOUS [address] [facility] BLOOD INC INC VENIPUNCT URE 25 41326 [place] HYDROXY 7 [facility] INCLUDES INC INC FRACTIONS IF PERFORMED IM ADM 85428 [place] ARS[facility] PRQ ID 7 VALLEY SUBQ/IM INTERNAL NJXS 1 MED VACCINE THERAPEUT 99720 [place] IC 7 [facility] PROPHYLAC INC INC TIC/DX INJECTION SUBQ/[place] [address] [place] HEAD/BRAI [address] [facility] N W/O INC INC CONTRAST MATERIAL UNCLASSIF J3490 [place] IED DRUGS 7 [facility] INC INC GROUND A0425 [facility] AMBULANCE AMBULANCE PER SERVICE SERVICE STATUTE MILE AMBULANCE A0429 [facility] SERVICE 7 AMBULANCE AMBULANCE BLS [place] [address] [place] MAXILLOFA 7 [facility] CIAL W/O INC INC CONTRAST MATERIAL SCREENING 79721 [place] 7 [facility] MAMMOGRAP INC INC HY BI 2-VIEW BREAST INC CAD SCREENING G0202 [facility] 7 MEDICAL MAMMOGRAP IMAGING HY WILBERT ASS INCL CAD WHEN PERFORMD NERVE 76120 [email or web address] CONDUCTIO 7 N N STUDIES NEUROLOGY 9-10 STUDIES NEEDLE 78660 [email or web address] EMG EA 7 N EXTREMTY NEUROLOGY W/PARASPI NL AREA COMPLETE NEEDLE 58316 [email or web address] EMG EA 7 N EXTREMTY NEUROLOGY W/PARASPI NL AREA COMPLETE NERVE 05291 [email or web address] CONDUCTIO 7 N N STUDIES NEUROLOGY 9-10 STUDIES OPHTH 48449 [employer] MEDICAL 7 XM&EVAL COMPRHNSV ESTAB PT 1/> ESOPHAGEA 60847 [facility] ORTHODOXY L 7 [facility] MOTILITY [facility] STUDY W/INTERP& [place] [address] [facility] ABDOMEN & 7 MEDICAL PELVIS IMAGING W/[place] [address] [place] LIPASE 7 [facility] H[facility] [place] [address] [place] AMYLASE 7 [facility] INC INC COMPREHEN 77563 [place] SIVE 7 [facility] METABOLIC INC INC PANEL UNCLASSIF J3490 [place] IED DRUGS 7 [facility] H[facility] INC INC URINE 94909 [place] 7 [facility] TEST INC INC VISUAL COLOR CMPRSN METHS URNLS DIP 58531 [place] 7 [facility] STICK/TAB INC INC LET REAGENT AUTO MICROSCOP Y BLOOD 69523 [place] [facility] COUNT 7 [facility] COMPLETE INC AUTO&AUTO DIFRNTL WBC SPMTRY 98319 [facility] W/VC 7 [facility] [place] Y ABHI CO W/WO MXML VOL VNTJ NITRIC 04016 [facility] OXIDE 7 [facility] [place] GAS CO DETERMINA TION SPACR A4627 MT MED MT MED BAG/RESRV 7 EQUIPMENT EQUIPMENT OR W/WO INC INC MASK W/METRD DOSE INHAL DEMO&/VIPUL 92635 [facility] L OF PT 7 [facility] [place] AERSL CO GEN/NEB/I NHLR/IP XTRNL ECG 24163 [place] [facility] S RHYTHM P W/I&R UP TO 48 HRS EXTERNAL 74928 [place] ECG 7 [facility] SCANNING INC INC ANALYSIS REPORT RADIOLOGI 97774 [place] HARLEEN C 7 MEDICAL EXAMINATI IMAGING ON KNEE 3 ASS VIEWS XTRNL ECG 36176 [place] & 48 HR 7 [facility] RECORDING INC INC ECG 31701 [place] ROUTINE 7 [facility] W/LEAST P 12 LDS [place] [address] [place] TROPONIN 7 [facility] QUANTITAT INC INC SABIHA CREATINE 98247 [place] KINASE MB 7 [facility] FRACTION INC INC ONLY COMPREHEN 16414 [place] SIVE 7 [facility] METABOLIC INC INC PANEL ECG 87234 [place] ROUTINE 7 [facility] ECG INC INC W/LEAST 12 LDS TRCG ONLY W/O I&R CREATINE 17895 [place] KINASE 7 [facility] TOTAL INC INC ANES 57021 [facility] UPPER GI 7 [place] ENDOSCOPY ANESTHESI PROXIMAL A TO DUODENUM EGD 14447 [facility] SANCHEZ TRANSORAL 7 HEALTH BIOPSY MEDICAL SINGLE/MU GROUP LTIPLE ECG 98534 [facility]AL[facility] CAONER ROUTINE 7 HEART ECG SPECIALIS W/LEAST TS, 12 LDS I&R ONLY ECG 50426 [facility] 7 PHYSICIAN ECG S, PLLC W/LEAST 12 LDS [place] [address] [place] TROPONIN 7 [facility] QUANTITAT INC INC SABIHA ECG 38192 [place] ROUTINE 7 [facility] ECG INC INC W/LEAST 12 LDS TRCG ONLY W/O I&R COMPREHEN 90093 [place] SIVE 7 [facility] METABOLIC INC INC PANEL ECG 53523 ORTH[facility]OXY ORTHODOXY ROUTINE 7 [facility] ECG [facility] W/LEAST 12 LDS TRCG ONLY W/O I&R COLLECTIO 00162 ORTH[facility]OXY ORTHODOXY N VENOUS 7 [facility] BLOOD [facility] VENIPUNCT URE COLPOSCOP 39248 [facility] HUMPHREY Y CERVIX 7 PHYSICIAN BX CERVIX S GROUP [place] [address] [facility], PICKLESIM SURG 7 [facility] ER JR PATHOLOGY GROSS&[place] [address] ORTHODOXY ORTHODOXY TRACT 7 [facility] UPPER [facility] W/WO DELAYED IMAGES W/KUB UNCLASSIF J3490 [place] IED DRUGS 7 [place] [address] [facility] HEAD/BRAI 7 MEDICAL MEDICAL N W/O IMAGING IMAGING CONTRAST ASS ASS MATERIAL LIPID 13341 [place] PANEL 7 [facility] INC INC BLOOD 67027 [place] COUNT 7 [facility] COMPLETE INC INC AUTO&[place] [address] [place] GAMMAGLOB 7 [facility] ULIN IGA INC INC IGD IGG IGM EACH GONADOTRO 07912 [place] PIN 7 [facility] FOLLICLE INC INC STIMULATI NG HORMONE COMPREHEN 66965 [place] SIVE 7 [facility] METABOLIC INC INC PANEL COLLECTIO 89320 [place] N VENOUS 7 [facility] BLOOD INC INC VENIPUNCT URE GONADOTRO 86976 [place] PIN 7 [facility] LUTEINIZI INC INC NG HORMONE COMPREHEN 52837 [place] SIVE 7 [facility] METABOLIC INC INC PANEL URNLS DIP 50051 [place] 7 [facility] STICK/TAB INC [place] [address] [place] INFUSION 7 [facility] THERAPY/P INC INC ROPHYLAXI S /DX 1ST TO 1 HR BLOOD 60474 [place] COUNT 7 [facility] COMPLETE INC INC AUTO&AUTO DIFRNTL WBC UNCLASSIF J3490 [place] IED DRUGS 7 [place] [address] [place] INFUSION 7 [facility] THERAPY INC INC PROPHYLAX IS/DX EA HOUR UNCLASSIF J3490 [place] IED DRUGS 7 [facility] [place] [address] Y[facility] BUX DX/THER 7 MD RHIANNON, SBST PSC INTRLMNR LMBR/SAC W/IMG GDN IADNA 77391 [facility] TOD HUMAN 7 LLC PAPILLOMA VIRUS HIGH-RISK TYPES URNLS DIP 32965 [facility] HUMPHREY 7 PHYSICIAN STICK/TAB S GROUP LET RGNT NON-AUTO W/O MICRSCP CYTP 81501 [facility], TOD CERVICAL/ 7 LLC VAGINAL REQ INTERP PHYSICIAN CYTP C/V 30399 [facility], [facility] AUTO THIN 7 LLC LYR PREPJ SCR MNL RESCR PHYS ECG 30889 [place] ROUTINE 7 [facility] ECG INC INC W/LEAST 12 LDS TRCG ONLY W/O I&R COLLECTIO 69807 [place] N VENOUS 7 [facility] BLOOD INC INC VENIPUNCT URE PROTEIN 04275 [place] ELECTROPH 7 [facility] ORETIC INC INC FRACTJ&QU ANTJ SERUM ANTINUCLE 89688 [place] AR 7 [facility] ANTIBODIE INC INC S SANNA COMPREHEN 46994 [place] SIVE 7 [facility] METABOLIC INC INC PANEL BLOOD 95213 [place] COUNT 7 [facility] COMPLETE INC INC AUTO&AUTO DIFRNTL WBC URNLS DIP 14563 [place] 7 [facility] STICK/TAB INC INC LET RGNT AUTO W/O MICROSCOP Y CREATININ 04224 [place] E BLOOD 7 [facility] INC INC COLLECTIO 78239 [place] N VENOUS 7 [facility] [place]LOOD [place] [address] [place] UREA 7 [facility] NITROGEN INC INC QUANTITAT SABIHA UNCLASSIF J3490 [place] IED DRUGS 7 [facility] INC INC CT THORAX 74169 [place] 7 [facility] W/CONTRAS INC INC T MATERIAL ECG 26996 [facility] ROUTINE 7 PHYSICIAN ECG S GROUP W/LEAST 12 LDS I&R ONLY ECG 60566 [place] ROUTINE 7 [facility] ECG INC INC W/LEAST 12 LDS TRCG ONLY W/O I&R NJX 97594 [facility] DUFF DX/THER 7 MD RHIANNON, AGT PVRT PSC FACET JT LMBR/SAC 3+ LEVEL NJX 71442 [facility] DUFF DX/THER 7 MD RHIANNON, AGT PVRT PSC FACET JT LMBR/SAC 1 LEVEL NJX 65578 [facility] DUFF DX/THER 7 MD RHIANNON, AGT PVRT PSC FACET JT LMBR/SAC 2ND LEVEL COMPREHEN 73840 [place] SIVE 7 [facility] [place] [address] [place] AMYLASE 7 [facility] INC INC CREATINE 67963 [place] KINASE MB 7 [facility] FRACTION INC INC ONLY CREATINE 45967 [place] KINASE 7 [facility] [place] [address] [place] LIPASE 7 [facility] INC INC ECG 47158 [place] ROUTINE 7 [facility] ECG INC INC W/LEAST 12 LDS TRCG ONLY W/O I&R THER 25059 [place] PROPH/DX 7 [facility] NJX IV INC INC PUSH SINGLE/1S T SBST/DRUG RADEX 29383 [place] ABDOMEN 7 [facility] COMPL INC INC W/DCBTS&/ ERC VIEWS ECG 72494 [place] ROUTINE 7 [facility] W/LEAST P 12 LDS I&R ONLY THERAPEUT 49113 [place] IC [address] [facility] INJECTION INC [place] [address] [place] TROPONIN [address] [facility] QUANTITAT INC INC SABIHA BLOOD 37967 [place] COUNT [address] [facility] COMPLETE INC INC AUTO&AUTO DIFRNTL WBC UNCLASSIF J3490 [place] IED DRUGS [address] [facility] INC INC ECG 35343 [facility] ROUTINE 7 PHYSICIAN ECG S GROUP W/LEAST 12 LDS I&R ONLY ECG 23071 [place] ROUTINE [address] [facility] ECG INC INC W/LEAST 12 LDS TRCG ONLY W/O I&R ECG 95506 [facility] ROUTINE 7 PHYSICIAN ECG S GROUP W/LEAST 12 LDS I&R ONLY XTRNL ECG 80462 [place] & 48 HR [address] [facility] RECORDING INC INC ECG 25746 [facility] ROUTINE 7 PHYSICIAN ECG S, PLLC W/LEAST 12 LDS I&R ONLY BLOOD 59566 [place] COUNT [address] [facility] COMPLETE INC INC AUTO&[place] [address] [place] TROPONIN [address] [facility] QUANTITAT INC INC SABIHA RADIOLOGI 96811 [facility] C EXAM 7 PHYSICIAN CHEST 2 S, PLLC VIEWS FRONTAL&L ATERAL GROUND A0425 [facility]ANCE AMBULANCE PER SERVICE SERVICE STATUTE MILE MRI 14646 WENDY ADAMS SPINAL 7 CANAL ORTHOPAED LUMBAR ICS PSC W/O CONTRAST MATERIAL AMB A0427 [facility] SERVICE 7 AMBULANCE AMBULANCE ALS SERVICE SERVICE EMERGENCY TRANSPORT LEVEL 1 ECG 19509 [place] ROUTINE [address] [facility] ECG INC INC W/LEAST 12 LDS TRCG ONLY W/O I&R CREATINE 77425 [place] KINASE 7 [facility] TOTAL INC INC CREATINE 47080 [place] KINASE MB 7 [facility] FRACTION INC INC ONLY COMPREHEN 19695 [place] SIVE 7 [facility] METABOLIC INC INC PANEL RADEX 97861 [facility] SPINE 7 [facility] LUMBOSACR ORTHOPAED AL 2/[address] [place] [address] [facility] CERVICAL 7 MEDICAL MEDICAL SPINE W/O IMAGING IMAGING CONTRAST ASS ASS MATERIAL ECG 42544 [place] ROUTINE 7 [facility] ECG INC INC W/LEAST 12 LDS TRCG ONLY W/O I&[place] [address] [facility] HEAD/BRAI 7 MEDICAL N W/O IMAGING CONTRAST ASS MATERIAL ECG 92571 [place] ROUTINE 7 [facility] W/LEAST P 12 LDS I&R ONLY 25 85955 [place] HYDROXY 7 [facility] INCLUDES INC INC FRACTIONS IF PERFORMED COLLECTIO 16169 [place] N VENOUS 7 [facility] BLOOD INC INC VENIPUNCT URE CYANOCOBA 59352 [place] [facility] LYUBOV 7 [facility] VITAMIN INC INC B-[address] [place] [address] [place] [facility] FOLIC 7 [facility] ACID INC INC SERUM THERAPEUT 09895 [place] IC 7 [facility] PROPHYLAC INC INC TIC/DX INJECTION SUBQ/IM UNCLASSIF J3490 [place] IED DRUGS 7 [facility] INC INC UNCLASSIF J3490 [place] IED DRUGS 7 [facility] INC INC URNLS DIP 90207 [place] [facility] 7 [facility] STICK/TAB INC INC LET [place] [address] [facility] ORTH[facility] TRACT 7 [facility] W/WO DELAYED IMAGES W/KUB DESTRUCTI 18972 LOUISA JASSO ON BENIGN 7 LESIONS UP TO 14 RADEX 78920 [facility] SAQIB ABDOMEN 1 7 MEDICAL IMAGING ANTEROPOS ASS TERIOR VIEW COMPREHEN 65487 [place] [facility] SIVE 7 [facility] [place] [address] [place] [facility] INFUSION 7 [facility] THERAPY/P INC INC ROPHYLAXI S /DX 1ST TO 1 HR BLOOD 11462 [place] [facility] COUNT 7 [facility] COMPLETE INC INC AUTO&AUTO DIFRNTL WBC TX PROC G0238 [place] [facility] IMPRV 7 [facility] RESP INC INC FUNCT NOT G0237 FCE-FCE 15MIN RAD EXP G9500 [place] [facility] INDICES/E 7 MEDICAL XP TM & IMAGING NUMB ASS FLUORO IMAGES DOC RADEX 29745 [place] [facility] ESOPHAGUS 7 MEDICAL IMAGING ASS INJECTION J1100 [facility] ORTH[facility] [address] [place] [address] DEXAMETHO [facility] SONE SODIUM PHOSPHATE 1 MG INJECTION J1170 [facility] [address] [place] [address] HYDROMORP [facility] KURTIS UP TO 4 MG INJECTION J0330 [facility] [address] [place] [address] SUCCINYLC [facility] HOLINE CHLORIDE UP TO 20 MG INJECTION J2405 [facility] [address] [place] [address] ONDANSETR [facility] ON HCL PER 1 MG INJECTION J1650 [facility] [address] [place] [address] ENOXAPARI [facility] N SODIUM 10 MG ANES 81165 [facility] [address] [place] [address] TONEAL ANESTHESI UPPER A ABDOMEN W/LAPS NOS LAPS RPR 39006 [facility] GARCIA PARAESPHG [address] [place] [address] L [facility] FUNDPLSTY W/O MESH INJECTION J2704 [facility] PROPOFOL [address] [place] [address] 10 MG [facility] INJECTION J2710 [facility] [address] [place] [address] NEOSTIGMI [facility] NE METHYLSUL FATE UP TO 0.5 MG INJECTION J3010 [facility] FENTANYL [address] [place] [address] CITRATE [facility] 0.1 MG GLUCOSE 44549 [facility] QUANTITAT 7 HEALTH HEALTH SABIHA BLOOD [facility] XCPT REAGENT STRIP HEMOGLOBI 05382 [facility] N 7 [facility] GLYCOSYLA [facility] [place] A1C ECG 21056 [facility] ANNA ROUTINE 7 [facility] ECG MEDICAL W/LEAST GROUP 12 LDS I&R ONLY BLOOD 35283 [facility] COUNT 7 [facility] HEALTH COMPLETE [facility] AUTOMATED ECG 02955 [facility] ROUTINE 7 [facility] ECG [facility] W/LEAST 12 LDS TRCG ONLY W/O I&R COLLECTIO 47603 [facility] OR[facility] N VENOUS 7 [facility] BLOOD [facility] [place] [address] [place] [facility] LIPASE 6 [facility] INC INC ECG 79790 [place] [facility] ROUTINE 6 [facility] ECG INC INC W/LEAST 12 LDS TRCG ONLY W/O I&R RADEX 73009 [facility] ABDOMEN 6 MEDICAL MEDICAL COMPL IMAGING IMAGING W/DCBTS&/ [place] [address] [place] [facility] AMYLASE 6 [facility] INC INC COMPREHEN 44505 [place] [facility] SIVE 6 [facility] METABOLIC INC INC PANEL BLOOD 45468 [place] [facility] COUNT 6 [facility] COMPLETE INC INC AUTO&AUTO DIFRNTL WBC ECG 62800 [place] [facility] JR ROUTINE 6 [facility] W/LEAST P 12 LDS I&R ONLY THERAPEUT 41116 [place] [facility] IC [facility] INJECTION INC [place] [address] [place] [facility] INFUSION 6 [facility] THERAPY/P INC INC ROPHYLAXI S /DX 1ST TO 1 HR RADIOLOGI 94788 [facility] C EXAM 6 MEDICAL MEDICAL CHEST 2 IMAGING IMAGING VIEWS ASS ASS FRONTAL&L ATERAL BLOOD 26041 [facility] OCCULT 6 [facility] PEROXIDAS INTERNAL E ACTV MED QUAL FECES 1 DETER GLUC BLD 12129 [place] [facility] GLUC MNTR 6 [facility] DEV INC [place] [address] SEJAL CANSECO HEAD/BRAI 6 MEDICAL N W/O IMAGING CONTRAST ASS MATERIAL THERAPEUT 11870 [place] [facility] IC 6 [facility] PROPHYLAC INC INC TIC/DX INJECTION SUBQ/IM RADEX 77169 [place] [facility] SPINE 6 [facility] LUMBOSACR INC INC AL MINIMUM 4 VIEWS RADEX 63950 [place] [facility] SACRUM & 6 [facility] COCCYX INC INC MINIMUM 2 VIEWS RADIOLOGI 94182 [place] [facility] C 6 [facility] EXAMINATI INC INC ON PELVIS 1/2 VIEWS URINE 39807 [place] [facility] [address] [facility] TEST INC INC VISUAL COLOR CMPRSN METHS RADIOLOGI 55291 [facility] CANSECO C EXAM 6 MEDICAL ADRIANNA CHEST 2 IMAGING VIEWS ASS FRONTAL&L ATERAL RADEX 07873 [place] [facility] SINUSES [address] [facility] PARANASAL INC INC COMPL MINIMUM 3 VIEWS BLOOD 68602 [place] [facility] COUNT 6 [facility] COMPLETE INC INC AUTO&AUTO DIFRNTL WBC CUL BACT 45848 [place] [facility] XCPT [address] [facility] URINE INC INC BLOOD/[place] [address] [place] [facility] STREPTOCO [address] [facility] CCUS INC INC GROUP A IAADI 82979 [place] [facility] INFLUENZA 6 [facility] B VIRUS INC IAADI 17999 [place] [facility] INFFLUENZ [address] [facility] [place] [address] [facility] LAB[facility], PICKLESIM SURG 6 [facility] PATHOLOGY GROSS&BRYCE ROSCOPIC EXAM DECALCIFI 05877 [facility], PICKLESIM CATION 6 [facility] PROCEDURE ANESTHESI 78936 COMMUNITY FEEBACK A NOSE & 6 ANESTH ACCESSORY OF THE SINUSES BLUE NOS ECG 94397 [place] [facility] ROUTINE [address] [facility] ECG INC INC W/LEAST 12 LDS TRCG ONLY W/O I&R ECG 52847 [place] ROUTINE 6 [facility] W/LEAST P 12 LDS I&R ONLY BLOOD 85306 [place] [facility] COUNT 6 [facility] COMPLETE INC INC AUTO&AUTO DIFRNTL WBC COLLECTIO 07789 [place] [facility] N VENOUS 6 [facility] BLOOD INC INC VENIPUNCT URE COMPREHEN 53802 [place] [facility] SIVE 6 [facility] METABOLIC INC INC PANEL ANTIBODY 27367 [place] [facility] HERPES 6 [facility] SMPLX INC INC TYPE 1 ANTIBODY 90381 [place] [facility] VIRUS NOT 6 [facility] [place] [address] [place] [facility] MAXILLOFA 6 [facility] CIAL W/O INC INC CONTRAST MATERIAL URINE 71435 [place] [facility] 6 [facility] TEST INC [place] [address] COURTNEYMago OCONNELLINEKE HEAD/BRAI 6 MEDICAL N W/[place] [address] [place] [facility] CERVICAL 6 [facility] SPINE W/O INC INC CONTRAST MATERIAL COMPRE 31864 MAEGAN ISSA AUDIOMETR 6 JARON JARON Y THRESHOLD EVAL SP RECOGNIJ TYMPANOME 76073 MAEGAN ISSA TRY 6 JARON JARON DISTORT 26425 MAEGAN VERAON PRODUCT 6 JARON JARON EVOKED OTOACOUST IC EMISNS LIMITD PULMONARY 15333 [place] NO[place] STRESS 6 MEDICAL TESTING SERV SIMPLE FOUNDATIO N GAS 93332 [place] DILUT/WAS 6 MEDICAL MEDICAL HOUT LUNG SERV SERV VOL W/WO FOUNDATIO [place]OUNDAT[place] DISTRI[place] VENT&[place] [address] [place] NO[place] DIFFUSING 6 MEDICAL CAPACITY SERV FOUNDATIO N ELIG CLIN G8427 STAMPING RODRIGUEZ TRI ATTSTS 6 GROUND DOC M REC FAMILY OBTD CLINI UPD/REV PT MEDS ECG 61521 [place] GI[facility]ANI ROUTINE 6 [facility] W/LEAST P 12 LDS I&R ONLY BLOOD 99840 [place] [facility] OCCULT 6 [facility] PEROXIDAS INC INC E ACTV QUAL FECES 1-3 SPEC BLOOD 73092 [place] [facility] COUNT 6 [facility] COMPLETE INC INC AUTO&AUTO DIFRNTL WBC IM ADM 91777 [facility] PRQ ID 6 [facility] SUBQ/IM HLTH DEPT HLTH DEPT NJXS EA JAZZ JAZZ VACCINE TDAP 86199 [facility] VACCINE 7 6 [facility] YRS/> IM HLTH DEPT HLTH DEPT JAZZ JAZZ COLLECTIO 10639 [place] N VENOUS 6 [facility] BLOOD INC INC VENIPUNCT URE SYPHILIS 33699 [facility] TEST 6 [facility] DISTRICT NON-TREPO HLTH DEPT HLTH DEPT NEMAL JAZZ JAZZ ANTIBODY QUAL IM ADM 22016 [facility] PRQ ID 6 DISTRICT DISTRICT SUBQ/IM HLTH DEPT HLTH DEPT NJXS 1 JAZZ JAZZ VACCINE SKIN TEST 66083 [facility] 6 [facility] DISTRICT TUBERCULO HLTH DEPT HLTH DEPT SIS JAZZ JAZZ INTRADERM AL XTRNL ECG 47897 [place] [facility] 6 [facility] S RHYTHM P W/I&R UP TO 48 HRS PROF SVCS 58123 [facility] MAR ALLG 6 [facility] IMMNTX X OF [place] W/PRV CO ALLGIC XTRCS NJXS RHEUMATOI 05110 [place] [facility] D FACTOR 6 [facility] QUANTITAT INC INC SABIHA ANTINUCLE 62747 [place] [facility] AR [facility] ANTIBODIE INC INC S SANNA BLOOD 06567 [place] [facility] COUNT 6 [facility] RETICULOC INC INC YTE AUTOMATED BLOOD 80066 [place] [facility] COUNT 6 [facility] COMPLETE INC INC AUTO&AUTO DIFRNTL WBC SPMTRY 16864 [facility] MAR W/VC 6 [facility] EXPIRATOR OF [place] Y ABHI CO W/WO MXML VOL VNTJ ECG 74612 [place] ROUTINE 6 [facility] W/LEAST P 12 LDS I&R ONLY NITRIC 69297 [facility] MAR OXIDE 6 [facility] [place] GAS CO DETERMINA TION AMBULANCE A0429 [facility] SERVICE 6 AMBULANCE PATY BLS SERVICE EMERGENCY TRANSPORT GROUND A0425 [facility] MILEAGE 6 AMBULANCE PATY PER SERVICE STATUTE MILE SEDIMENTA 30526 [place] [facility] T[facility] RATE 6 [facility] RBC INC INC NON-AUTOM ATED SEDIMENTA 57655 [place] [facility] TION RATE 6 [facility] RBC INC INC NON-AUTOM ATED BONE 86390 [place] [facility] &/JOINT 6 [facility] IMAGING INC INC WHOLE BODY BASIC 98273 [place] [facility] METABOLIC 6 [facility] PANEL INC INC CALCIUM TOTAL BLOOD 72756 [place] [facility] COUNT 6 [facility] COMPLETE INC INC AUTO&AUTO DIFRNTL WBC BLOOD 09564 [place] [facility] COUNT 6 [facility] RETICULOC INC INC YTE AUTOMATED TECHNETIU A9503 [place] TC-99M 6 [facility] MEDRONATE INC INC DX UP TO 30 MCI COLLECTIO 82687 [place] [facility] N VENOUS 6 [facility] BLOOD INC INC VENIPUNCT URE RADIOLOGI 34259 [facility] C EXAM 6 MEDICAL MEDICAL CHEST 2 IMAGING IMAGING VIEWS ASS ASS FRONTAL&L ATERAL ANES 52867 [place] BRITTNY LOWER 6 ANESTHESI INTESTINE A GROUP PS ENDOSCOPY DISTAL DUODENUM GONADOTRO 45638 [place] [facility] PIN 6 [facility] FOLLICLE INC INC STIMULATI NG HORMONE THYROID 80077 [place] [facility] HORM 6 [facility] UPTK/THYR INC INC OID HORMONE BINDING RATIO COLLECTIO 02476 [place] [facility] N VENOUS 6 [facility] BLOOD INC INC VENIPUNCT URE GONADOTRO 90216 [place] [facility] PIN 6 [facility] [place] [address] [place] [facility] THYROID 6 [facility] STIMULAT[place] [address] [place] THYROXINE 6 [facility] TOTAL INC INC ECG 21067 [place] [facility] ROUTINE 6 [facility] W/LEAST P 12 LDS I&R ONLY GROUND A0425 [facility] MILEAGE 6 AMBULANCE KILO PER SERVICE STATUTE MILE AMB A0427 [facility] SERVICE 6 AMBULANCE KILO ALS SERVICE EMERGENCY TRANSPORT LEVEL 1 RADIOLOGI 72735 [facility] C 6 MEDICAL MEDICAL EXAMINATI IMAGING IMAGING ON CHEST ASS ASS SINGLE VIEW FRONTAL PREPJ& 39353 [facility] MAR ALLERGEN 6 PARTNERS IMMUNOTHE OF TRE PEREZ CO 1/[place] [address] [place] [facility] INFUSION 6 [facility] THERAPY INC INC PROPHYLAX IS/DX EA HOUR RADIOLOGI 05937 [place] [facility] C 6 [facility] EXAMINATI INC [place] ON [place] [place] [address] [place] [facility] HEAD/BRAI 6 [facility] N W/O INC INC CONTRAST MATERIAL ECG 94327 [place] ROUTINE 6 [facility] W/LEAST P 12 LDS I&[place] [address] [place] [facility] INFUSION 6 [facility] THERAPY/P INC INC ROPHYLAXI S /DX 1ST TO [place] [address] [place] [facility] TROPONIN 6 [facility] QUANTITAT INC INC SABIHA BLOOD 82213 [place] [facility] COUNT 6 [facility] COMPLETE INC INC AUTO&AUTO DIFRNTL WBC COMPREHEN 32105 [place] [facility] SIVE 6 [facility] [place] [address] [place] [facility] CERVICAL 6 [facility] SPINE W/O INC INC CONTRAST MATERIAL CREATINE 75513 [place] [facility] KINASE MB 6 [facility] FRACTION INC INC ONLY ECG 01518 [place] [facility] ROUTINE 6 [facility] ECG INC INC W/LEAST 12 LDS TRCG ONLY W/O I&R CREATINE 52033 [place] [facility] KINASE 6 [facility] TOTAL INC INC SPACR A4627 [facility] KRASNOPOL BAG/RESRV 6 EQUIPMENT ANTONIO LAUREN OR W/WO INC MASK W/METRD DOSE INHAL PERCUTANE 91928 [facility] MAR OUS TESTS 6 [facility] [place] W/ALLERGE CO LEO EXTRACTS INTRACUTA 91809 [facility] MAR NEOUS 6 [facility] TESTS OF [place] W/ALLERGE CO LEO EXTRACTS SPMTRY 91720 [facility] MAR W/VC 6 [facility]ERS EXP[facility] [place] Y ABHI CO W/WO MXML VOL VNTJ NITRIC 16729 [facility] MAR OXIDE 6 [facility] [place] [address] [facility] TRANSVAGI 6 PHYSICIAN MEAGAN NAL S GROUP ECG 49224 [place] CHAVEZ JR ROUTINE 6 [facility] W/LEAST P 12 LDS I&R ONLY IADNA 22164 [place] [facility] CHLAMYDIA 6 [facility] INC INC TRACHOMAT IS AMPLIFIED PROBE TQ IADNA 75392 [place] [facility] NEISSERIA 6 [facility] INC INC GONORRHOE [place] [address] [facility] [place] ANDREWS TRACT 6 RADIOLOGY RHO UPPER W/WO DELAYED IMAGES W/KUB RADIOLOGI 94373 [facility] ALL C 6 MEDICAL EXAMINATI IMAGING ON CHEST ASS SINGLE VIEW FRONTAL ECG 50326 [place] ROUTINE 6 [facility] W/LEAST P 12 LDS I&R ONLY ELECTROEN 72371 [facility] CEPHALOGR 6 N AM W/REC NEUROLOGY AWAKE&[place] [address] [facility] ABDOMEN & 6 MEDICAL MEDICAL PELVIS IMAGING IMAGING W/CONTRAS ASS ASS T MATERIAL ECG 46775 [place] ROUTINE 6 [facility] W/LEAST P 12 LDS I&R ONLY ELECTROEN 69085 [facility] CEPHALOGR 6 N N AM W/REC COMMUNTIY COMMUNTIY [facility] HOSPITA WSY RADEX 45564 [place] C[facility] ALL SPINE 6 MEDICAL THORACIC IMAGING 2 VIEWS ASS ECG 92343 [place] [facility] JR ROUTINE 6 [facility] W/LEAST P 12 LDS I&R ONLY RADIOLOGI 76321 [place] [facility] ALL C 6 MEDICAL EXAMINATI IMAGING ON CHEST ASS SINGLE VIEW FRONTAL COMPUTER- 73024 [place] HARLEEN AIDED 6 MEDICAL ADRIANNA DETECTION IMAGING ASS SCREENING MAMMOGRAP HY SCREENING G0202 [place] HARLEEN 6 MEDICAL ADRIANNA MAMMOGRAP IMAGING HY WILBERT ASS INCL CAD WHEN PERFORMD COMPREHEN 27019 [place] [facility] SIVE 6 [facility] METABOLIC INC INC PANEL ECG 07643 [place] [facility] ROUTINE 6 [facility] ECG INC INC W/LEAST 12 LDS TRCG ONLY W/O I&[place] [address] [place] [facility] LACTATE 6 [facility] INC INC BLOOD 33332 [place] [facility] COUNT 6 [facility] COMPLETE INC INC AUTO&[place] [address] [place] [facility] TROPONIN 6 [facility] QUANTITAT INC INC SABIHA ECG 93669 [facility] [facility] JR ROUTINE 6 [facility] W/LEAST P 12 LDS I&[place] [address] [place] [facility] INFUSION 6 [facility] THERAPY/P INC INC ROPHYLAXI S /DX 1ST TO 1 HR URNLS DIP 23226 [place] [facility] 6 [facility] STICK/TAB INC INC LET REAGENT AUTO MICROSCOP Y RADEX ABD 30702 [place] SAQIB ALL COMPL 6 MEDICAL AQT ABD IMAGING W/S/E/D ASS VIEWS 1 [place] [address] [place] [facility] INFUSION 6 [facility] THERAPY/P INC INC ROPHYLAXI S /DX 1ST TO 1 HR URNLS DIP 32698 [place] [facility] 6 [facility] STICK/TAB INC INC LET REAGENT AUTO MICROSCOP Y ECG 89569 [place] ROUTINE 6 [facility] W/LEAST P 12 LDS I&[place] [address] [place] [facility] TROPONIN 6 [facility] QUANTITAT INC INC SABIHA BLOOD 58032 [place] [facility] COUNT 6 [facility] COMPLETE INC INC AUTO&AUTO DIFRNTL WBC URINE 69039 [place] [facility] 6 [facility] TEST INC INC VISUAL COLOR CMPRSN METHS RADIOLOGI 92443 [facility] CERR[facility] ALL C EXAM 6 MEDICAL CHEST 2 IMAGING VIEWS ASS FRONTAL&L ATERAL ECG 40368 [place] [facility] ROUTINE 6 [facility] ECG INC INC W/LEAST 12 LDS TRCG ONLY W/O I&R CREATINE 67265 [place] [facility] KINASE 6 [facility] TOTAL INC INC CULTURE 47247 [place] [facility] BACTERIAL 6 [facility] INC INC QUANTTATI VE COLONY COUNT URINE COMPREHEN 01101 [place] [facility] SIVE 6 [facility] METABOLIC INC INC PANEL CREATINE 71075 [place] [facility] KINASE MB 6 [facility] FRACTION INC INC ONLY GROUND A0425 [facility] MILEAGE 6 AMBULANCE AMBULANCE PER SERVICE SERVICE STATUTE MILE RADEX ABD 08335 SEJ[facility] CERRATO ALL COMPL 6 MEDICAL AQT ABD IMAGING W/S/E/D ASS VIEWS 1 VIEW CH AMB A0427 [facility] SERVICE 6 AMBULANCE AMBULANCE ALS SERVICE SERVICE EMERGENCY TRANSPORT LEVEL 1 MRI BRAIN 90913 [facility] BRAIN 6 N N STEM W/O COMMUNTIY COMMUNTIY CONTRAST HOSPITA HOSPITA MATERIAL BLOOD 90911 [facility] COUNT 6 N N COMPLETE COMMUNTIY COMMUNTIY AUTO&AUT[place] [address] [facility] INFUSION 6 N N HYDRATION COMMUNTIY COMMUNTIY EACH HOSPITA HOSPITA ADDITIONA L HOUR COMPREHEN 54286 [facility] SIVE 6 N N METABOLIC COMMUNTIY COMMUNTIY PANEL HOSPITA HOSPITA COLLECTIO 34316 [facility] N VENOUS 6 N N BLOOD COMMUNTIY COMMUNTIY VENIPUNCT HOSPITA HOSPITA URE THER 43528 [facility] PROPH/DX 6 N N NJX IV COMMUNTIY COMMUNTIY PUSH HOSPITA HOSPITA SINGLE/1S T SBST/[place] [address] SEJ[facility] CERRATO ALL ABDOMEN & 6 MEDICAL PELVIS IMAGING W/O ASS CONTRAST MATERIAL ECG 44270 [place] ROUTINE 6 [facility] W/LEAST P 12 LDS I&R ONLY RADIOLOGI 48279 [facility] ALL C 6 MEDICAL EXAMINATI IMAGING [place] [address] SEJ[facility] CERRAT[facility] ALL HEAD/BRAI 6 MEDICAL N W/O IMAGING CONTRAST ASS MATERIAL AMB A0427 [facility] SERVICE 6 AMBULANCE AMBULANCE ALS SERVICE SERVICE EMERGENCY TRANSPORT LEVEL 1 GROUND A0425 [facility] MILEAGE 6 AMBULANCE AMBULANCE PER SERVICE SERVICE STATUTE MILE CHIROPRAC 59528 [facility] TIC 6 MANIPULAT SABIHA TX SPINAL 3-4 REGIONS MANUAL 21502 [facility] THERAPY 6 TQS 1/> REGIONS EACH 15 MINUTES THERAPEUT 60964 [facility] IC PX 1/> 6 AREAS EACH 15 MIN EXERCISES CHIROPRAC 89070 [facility] TIC 6 MANIPLTV TX EXTRASPIN AL 1/> REGION THERAPEUT 44801 [facility] IC PX 1/> 6 AREAS EACH 15 MIN EXERCISES MANUAL 11467 [facility] THERAPY 6 TQS 1/> REGIONS EACH 15 MINUTES MANUAL 96013 [facility] THERAPY 6 MATTI MATTI TQS 1/> REGIONS EACH 15 MINUTES CHIROPRAC 10611 [facility] TIC 6 MATTI MATTI MANIPULAT SABIHA TX SPINAL 3-4 REGIONS THERAPEUT 68482 [facility] IC PX 1/> 6 MATTI MATTI AREAS EACH 15 MIN EXERCISES CHIROPRAC 47163 [facility] TIC 6 MATTI MATTI MANIPLTV TX EXTRASPIN AL 1/> REGION COMPREHEN 71513 [facility] SIVE 6 DIAGNOSTI DIAGNOSTI METABOLIC CS CS PANEL BX SKIN 24056 SCALF LEI SCALF LEI SUBCUTANE 6 OUS&/MUCO US MEMBRANE 1 LESION IMHISTOCH 71762 SCAL[facility] LEI SCALF LEI EM/CYTCHM 6 1ST [place]TIB[place] [address] SCALF LEI SCALF LEI SURG 6 PATHOLOGY GROSS&BRYCE ROSCOPIC EXAM ECG 17152 [place] ROUTINE 6 [facility] W/LEAST P 12 LDS I&R ONLY ECG 21352 ORTH[facility]OXY ANDERS ROUTINE 6 HEALTH IV HEN ECG MEDICAL W/LEAST GROUP 12 LDS I&R ONLY HEMOGLOBI 70504 [facility] ORTHODOXY N 6 Xamplified HEALTH GLYCOSYLA [facility] LANEY A1C BLOOD 64422 [facility] OR[facility]Y COUNT 6 [facility] COMPLETE [facility] AUTOMATED BASIC 70341 ORTHODOXY ORTHODOXY METABOLIC 6 Xamplified HEALTH PANEL [facility] CALCIUM TOTAL LIPID 77398 ORTH[facility]OXY ORTHODOXY PANEL 6 [facility] CATH PLMT 39108 ORTHODOXY ANDRES L HRT & 6 HEALTH IV ARTS MEDICAL W/NJX & GROUP ANGIO IMG S&I INJECTION J3010 ORTH[facility]OX[facility] ORTHODOXY FENTANYL 6 [facility] CITRATE [facility] 0.1 MG LOCM Q9967 ORTHODOXY ORTHODOXY 300-399 6 [facility] MG/ML [facility] IODINE CONCENTRA TION PER ML INJECTION J1644 [facility] ORTHODOXY HEPARIN 6 [facility] SODIUM [facility] PER 1000 UNITS COLLECTIO 88542 [facility] ORTHODOXY N VENOUS 6 [facility] Xamplified BLOOD [facility] VENIPUNCT URE GONADOTRO 28938 ORTH[facility]OX[facility] ORTHODOXY PIN 6 [facility] HEALTH CHORIONIC [facility] QUANTITAT SABIHA CV STRS 55052 [place] [facility] TST 6 [facility]/OR [facility] RX CONT P P ECG W/O I&R CV STRS 35334 [place] [facility] TST 6 [facility] XERS&/OR INC INC RX CONT ECG TRCG ONLY CV STRS 60691 [place] [facility] TST 6 [facility]&/OR [facility] RX CONT P P ECG I&R ONLY TECHNETIU A9500 [place] TC-99M 6 [facility] SESTAMIBI INC INC DX PER STUDY DOSE MYOCARDIA 35982 [place] [facility] L SPECT 6 [facility] MULTIPLE INC INC STUDIES ECHO 71040 [place] [facility] TTHRC R-T 6 [facility] 2D INC INC W/WOM-MOD E COMPL SPEC&COLR D ECG 00509 [place] SCOTT JR ROUTINE 6 [facility] W/LEAST P 12 LDS I&R ONLY RADIOLOGI 86174 [place] C[facility] ALL C 6 MEDICAL EXAMINATI IMAGING ON CHEST ASS SINGLE VIEW FRONTAL OPHTH 26369 [facility] MEDICAL 6 XM&EVAL COMPRHNSV ESTAB PT 1/> [place] [address] [facility] FOLIC 6 MAI MAI [place] [address] [facility] LAB [facility] IRON 6 MAI MAI [facility] COMPREHEN 03185 [facility] SIVE 6 MAI MAI METABOL[place] [address] [facility] TOCOPHERO 6 MAI MAI L ALPHA [place] [address] [facility] VITAMIN A 6 [place] [address] [facility] PHOSPHORU 6 MAI MAI S [facility] INORGANIC ORGANIC 38629 [facility] ACID 1 6 MAI MAI QUANTIT[place] [address] [facility] LAB [facility] PARATHORM 6 [place] [address] [facility] FERRITIN 6 [place] [address] [facility] MAGNESIUM 6 [facility] HOLDINGS 25 [address]42 [facility] HYDROXY 6 [facility] INCLUDES [facility]INGS HOLDINGS FRACTIONS IF PERFORMED BLOOD 87496 [facility] COUNT 6 [facility] COMPLETE HOLDINGS HOLDINGS AUTO&AUTO DIFRNTL WBC PREALBUMI 47883 [facility] N 6 [place] [address] [facility] ZINC 6 [place] [address] [facility] THIAMINE- 6 [facility] VITAMIN HOLDINGS HOLDINGS B-1 IRON 57691 [facility] CAPACITY [facility] INC [facility]LOOD 16206 [facility] COUNT [facility] COMPLETE INC INC AUTO&AUTO DIFRNTL WBC 25 96810 [facility] HYDROXY 6 [facility] INCLUDES INC INC FRACTIONS IF PERFORMED COLLECTIO 65597 [facility] N VENOUS [facility] [place] [address] [facility] FERRITIN [place] [address] [facility] THYROID 6 [facility] STIMULATI INC INC NG HORMONE TSH COMPREHEN 40207 [facility] SIVE [facility] [place] [address] [facility] IRON [facility] INC INC IADNA 11199 [facility] TRACHOMAT IS AMPLIFIED PROBE TQ IADNA 57212 [facility] PAPILLOMA VIRUS HIGH-RISK TYPES IADNA 18793 [facility], [facility] GONORRHOE AE AMPLIFIED PROBE TQ CYTP C/V 09212 [facility] TH[facility] LYR PREPJ SCR MNL RESCR PHYS CYTP 16629 [facility], [facility] CERVICAL/ [facility] VAGINAL REQ INTERP PHYSICIAN COLLECTIO 65679 [facility] N VENOUS [facility] [place] [address] [facility] THYROID 6 [facility] STIMULATI INC INC NG HORMONE TSH BASIC 54772 [facility] METABOLIC 6 [facility] PANEL [facility] INC CALCIUM TOTAL BLOOD 10166 [facility] COUNT 6 [facility] COMPLETE INC INC AUTO&AUTO DIFRNTL WBC PREALBUMI 77577 [facility] N 6 [place] [address] [facility] IRON [facility] INC COLLECTIO 30299 [facility] VENOUS [facility] [place] [address] [facility] FERRITIN 6 [facility] INC INC ORGANIC 24658 [facility] ACID 1 6 [facility] [place] [address] [facility] THIAMINE- 6 [facility] VITAMIN INC INC B-1 COMPREHEN 08124 [facility] SIVE 6 [facility] [place] [address] [facility] IRON 5 [place] [address] [facility] FOLIC 5 [facility] [place] [address] [facility] THIAMINE- 5 [facility] VITAMIN [facility] HOLDINGS B-1 ORGANIC 70718 [facility] ACID 1 5 [facility] [place]IT[place] [address] [facility] FERRITIN 5 [facility]INGS HOLDINGS PREALBUMI 52951 [facility] N 5 [facility]INGS HOLDINGS GENERAL 42734 [facility] HEALTH 5 [facility] PANEL HOLDINGS HOLDINGS BIOPSY 89236 ATK[facility] ATKINS SKIN 5 TRA TRA SUBQ&/MUC OUS MEMBRANE EA ADDL LESN DESTRUCTI 03779 ATKINS ATKINS ON BENIGN 5 TRA TRA LESIONS UP TO 14 BX SKIN 53651 ATKINS ATKINS SUBCUTANE 5 TRA TRA OUS&/MUCO US MEMBRANE 1 LESION DESTRUCTI 60762 ATKINS ATKINS ON 5 TRA TRA PREMALIGN [place] 1ST [place] [address] SCALF LEI SCALF LEI SURG 5 PATHOLOGY GROSS&BRYCE ROSCOPIC EXAM COMPREHEN 35855 [facility] SIVE 5 [facility] METABOLIC [place] [address] [facility] FOLIC 5 [facility] [place] [address] [facility] IRON 5 [facility] HOLDINGS ORGANIC 47324 [facility] ACID 1 5 [facility] [place]IT[facility] [place] [address] [facility] THIAMINE- 5 [facility] [facility] VITAMIN HOLDINGS HOLDINGS B-1 PREALBUMI 28050 LAB MAHESH LAB MAHESH N 5 [facility] HOLDINGS HOLDINGS BLOOD 79550 LAB MAHESH LAB MAHESH COUNT 5 [facility] COMPLETE HOLDINGS HOLDINGS AUTO&AUTO DIFRNTL WBC COMPUTER- 22911 [facility] AIDED 5 MEDICAL CARMEN DETECTION IMAGING ASS SCREENING MAMMOGRAP HY SCREENING G0202 [place] [address] MEDICAL CARMEN MAMMOGRAP IMAGING HY WILBERT ASS INCL CAD WHEN PERFORMD COMPREHEN 45028 [facility] SIVE 5 [facility] [address] [facility] GLUTAMYLT 5 [facility] RASE INC INC GAMMA CYANOCOBA 66508 [facility] LYUBOV 5 [facility] VITAMIN [place] B-12 [place] [address] [facility] THYROID 5 [facility] STIMULATI INC INC NG HORMONE TSH COLLECTIO 02700 [facility] N VENOUS 5 [facility] BLOOD INC INC VENIPUNCT URE 25 71037 [facility] HYDROXY 5 [facility] INCLUDES INC INC FRACTIONS IF PERFORMED BLOOD 80880 [facility] COUNT 5 [facility] COMPLETE INC INC AUTO&AUTO DIFRNTL WBC HEMOGLOBI 47219 [facility] N 5 [facility] GLYCOSYLA INC INC LANEY A1C LIPID 45140 [facility] PANEL 5 [facility] INC INC OPHTH 26201 SCIFRES SCIFRES MEDICAL 5 ANG ANG XM&EVAL COMPRHNSV ESTAB PT 1/> [place] [address] [facility] ABDOMEN & 5 N N PELVIS COMMUNTIY COMMUNTIY [place] [address] [facility] ABDOMEN & 5 [facility] PELVIS INC INC W/CONTRAS T MATERIAL URINE 90576 [facility] 5 [facility] TEST INC INC VISUAL COLOR CMPRSN METHS BLOOD 83378 [facility] COUNT 5 [facility] COMPLETE INC INC AUTO&AUTO DIFRNTL WBC URNLS DIP 25391 [facility] [facility] 5 [facility] STICK/TAB INC INC [place] [address] [facility] AMYLASE 5 [facility] INC INC COMPREHEN 20644 [facility] SIVE 5 [facility] METABOLIC INC INC PANEL CULTURE 49398 [facility] BACTERIAL 5 [facility] INC INC QU[place]TT[place] [address] [facility] LIPASE [facility] [place] [address] [facility] LIPASE 5 N N COMM[place] [address] [facility] MAGNESIUM 5 N N COMMUNTIY [place] [address] [facility] THIAMINE- 5 N N VITAMIN COMMUNTIY COMMUNTIY B-1 HOSPITA HOSPITA ORGANIC 45653 [facility] ACID 1 5 N N QUANTITAT COMMUNTIY COMMUNTI[place] [address] [facility] PHOSPHORU 5 N N S COMMUNTIY COMMUNTIY [place] [address] [facility] PARATHORM 5 N N ONE COMMUNTIY COMMUNTIY HOSPITA HOSPITA 25 73819 [facility] HYDROXY 5 N N INCLUDES COMMUNTIY COMMUNTIY FRACTIONS HOSPITA HOSPITA IF PERFORMED COLLECTIO 10386 [facility] N VENOUS 5 N N BLOOD COMMUNTIY COMMUNTIY [place] [address] [facility] VITAMIN A 5 N N COMMUNTIY [place] [address] [facility] TOCOPHERO 5 N N L ALPHA COMMUNTIY COMMUNTIY [place] [address] [facility] AMYLASE 5 N N COMMUNTI[place] [address] [facility] FOLIC 5 N N ACID COMMUNTIY COMMUNTIY SERUM HOSPITA HOSPITA COMPREHEN 35472 [facility] SIVE 5 N N METABOLIC COMMUNTIY COMMUNTI[place] [address] [facility] ZINC 5 N N COMMUNTIY COMMUNTIY HOSPITA HOSPITA PREALBUMI 77211 [facility] N 5 N N COMMUNTIY COMMUNTIY HOSPITA HOSPITA BLOOD 53031 [facility] COUNT 5 N N COMPLETE COMMUNTIY COMMUNTIY AUTO&[place] [address] [facility] ABDOMINAL 5 N N REAL COMMUNTIY COMMUNTIY TIME HOSPITA HOSPITA W/[place] [address] [facility] RETROPERI 5 [facility] TONEAL INC [place] W/[place] [address] [facility] 5 MEDICAL TONEAL IMAGING REAL TIME ASS W/IMAGE LIMITED BLOOD 61183 [facility] COUNT 5 N N COMPLETE COMMUNTIY COMMUNTIY AUTOMATED HOSPITA HOSPITA ALPHA-1-A 13396 [facility] NTITRYPSI 5 N N N TOTAL COMMUNTIY COMMUNTIY HOSPITA HOSPITA IRON 85382 [facility] BINDING 5 N N CAPACITY COMMUNTI[place] [address] [facility] GAMMAGLOB 5 N N ULIN IGA COMMUNTIY COMMUNTIY IGD IGG HOSPITA HOSPITA IGM EACH COMPREHEN 65466 [facility] SIVE 5 N N METABOLIC COMMUNTIY COMMUNTIY [place] [address] [facility] IRON 5 N N COMMUNTIY COMMUNTIY HOSPITA HOSPITA HEPATITIS 03694 [facility] C 5 N N ANTIBODY COMMUNTIY COMMUNTIY HOSPITA HOSPITA ANTINUCLE 68146 [facility] AR 5 N N ANTIBODIE COMMUNTIY COMMUNTIY [place] [address] [facility] FERRITIN 5 N N COMMUNTIY COMMUNTIY HOSPITA HOSPITA IMMUNOASS 14737 [facility] AY 5 N N ANALYTE COMMUNTIY COMMUNTIY QUAL/SEMI HOSPITA HOSPITA QUAL MULTIPLE STEP COLLECTIO 96868 [facility] N VENOUS 5 N N BLOOD COMMUNTIY COMMUNTIY VENIPUNCT HOSPITA HOSPITA URE PROTHROMB 91861 [facility] IN TIME 5 N N COMMUNTIY COMMUNTIY HOSPITA HOSPITA HEPATITIS 67999 [facility] B CORE 5 N N ANTIBODY COMMUNTIY COMMUNTIY HBCAB HOSPITA HOSPITA TOTAL HEPATITIS 71852 [facility] B SURF 5 N N ANTIBODY COMMUNTIY COMMUNTI[place] [address] [facility] HEPATITIS 5 N N B COMMUNTIY COMMUNTIY [place] [address] [facility] ABDOMEN & 5 MEDICAL PELVIS IMAGING W/O ASS CONTRAST MATERIAL DUP-SCAN 35095 [facility] [place] ANDREWS XTR VEINS 5 RADIOLOGY RHO COMPLETE BILATERAL STUDY BLOOD 59879 [facility] COUNT 5 N N COMPLETE COMMUNTIY COMMUNTIY AUTO&AUTO HOSPITA HOSPITA DIFRNTL WBC COLLECTIO 63859 [facility] N VENOUS 5 N N BLOOD COMMUNTIY COMMUNTIY [place] [address] [facility] LIPASE 5 N N COMMUNTIY COMMUNTIY HOSPITA HOSPITA COMPREHEN 27322 [facility] SIVE 5 N N METABOLIC COMMUNTIY COMMUNTIY [place] [address] [facility] AMYLASE 5 N N COMMUNTIY [place] [address] [facility] [place] SCALF HUBER TRACT 5 RADIOLOGY UPPER W/WO DELAYED IMAGES W/KUB ANES IPR 96508 [place] BRITTNY ANT UPPER 5 ANESTHESI ABDOMEN A GROUP LAPS PS GASTRIC RSTCV MO LAPS 67190 BLUEGRASS SANCHEZ MICHELLE GSTRC 5 RSTRICTIV BARIATRIC PX SURGICAL LONGITUDI NAL GASTRECTO MY LAPAROSCO 4382 [facility] PIC 5 N N VERTICAL COMMUNTIY COMMUNTIY SLEEVE HOSPITA HOSPITA GASTRECTO MY OTHER 4513 [facility] ENDOSCOPY 5 N N OF SMALL COMMUNTIY COMMUNTIY HOSPITA HOSPITA INTESTINE APPL 66136 [facility] MODALITY 5 [facility] 1/> AREAS INC INC ELEC STIMJ UNATTENDE D APPL 50873 [facility] MODALITY 5 [facility] 1/> AREAS INC INC ULTRASOUN D EA 15 MIN APPLICATI 04039 [facility] ON 5 [facility] MODALITY INC INC 1/> AREAS HOT/COLD PACKS DUP-SCAN 69444 [facility] HARLEEN XTR VEINS 5 MEDICAL ADRIANNA COMPLETE IMAGING ASS BILATERAL STUDY BLOOD 55157 [facility] COUNT 5 N N COMPLETE COMMUNTIY COMMUNTIY AUTOMATED HOSPITA HOSPITA GONADOTRO 84148 [facility] PIN 5 N N CHORIONIC COMMUNTIY COMMUNTIY HOSPITA HOSPITA QUALITATI VE COMPREHEN 53502 [facility] SIVE 5 N N METABOLIC COMMUNTIY COMMUNTIY PANEL HOSPITA HOSPITA COLLECTIO 77327 [facility] N VENOUS 5 N N BLOOD COMMUNTIY COMMUNTIY VENIPUNCT HOSPITA HOSPITA URE THERAPEUT 77683 [facility] IC PX 1/> 5 [facility] AREAS INC INC EACH 15 MIN EXERCISES APPL 46618 [facility] MODALITY 5 [facility] 1/> AREAS INC INC ELEC STIMJ UNATTENDE D APPL 50073 [facility] MODALITY 5 [facility] 1/> AREAS INC INC ULTRASOUN D EA 15 MIN APPLICATI 69892 [facility] ON 5 [facility] MODALITY INC INC 1/> AREAS HOT/COLD PACKS SUSCEPTIB 20972 [facility] LTY STDY 5 [facility] ANTIMICRB INC INC IAL MICRO/AGA R DILUTJ CUL BACT 91071 [facility] XCPT 5 [facility] URINE INC INC BLOOD/STO OL AEROBIC ISOL THERAPEUT 28454 [facility] IC PX 1/> 5 [facility] AREAS INC INC EACH 15 MIN EXERCISES APPL 82943 [facility] MODALITY 5 [facility] 1/> AREAS INC INC ELEC STIMJ UNATTENDE D APPLICATI 14189 [facility] [facility] ON 5 [facility] MODALITY INC INC 1/> AREAS HOT/COLD PACKS APPL 59283 [facility] MODALITY 5 [facility] 1/> AREAS INC INC ULTRASOUN D EA 15 MIN APPL 16756 [facility] MODALITY 5 [facility] 1/> AREAS INC INC ULTRASOUN D EA 15 MIN APPLICATI 54849 [facility] [facility] ON 5 [facility] MODALITY INC INC 1/> AREAS HOT/COLD PACKS APPL 70970 [facility] MODALITY 5 [facility] 1/> AREAS INC INC ELEC STIMJ UNATTENDE D APPL 55567 [facility] MODALITY 5 [facility] 1/> AREAS INC INC IONTOPHOR ESIS EA 15 MIN THERAPEUT 64652 [facility] IC PX 1/> 5 [facility] AREAS INC INC EACH 15 MIN EXERCISES APPL 09318 [facility] MODALITY 5 [facility] 1/> AREAS INC INC ELEC STIMJ UNATTENDE D APPLICATI 83814 [facility] [facility] ON 5 [facility] MODALITY INC INC 1/> AREAS HOT/COLD PACKS APPL 06228 [facility] MODALITY 5 [facility] 1/> AREAS INC INC ULTRASOUN D EA 15 MIN APPL 20358 [facility] MODALITY 5 [facility] 1/> AREAS INC INC IONTOPHOR ESIS EA 15 MIN BLOOD 62832 [facility] COUNT 5 N N COMPLETE COMMUNTIY COMMUNTIY AUTOMATED HOSPITA HOSPITA THYROID 57355 [facility] HORM 5 N N UPTK/THYR COMMUNTIY COMMUNTIY OID HOSPITA HOSPITA HORMONE BINDING RATIO LIPID 72305 [facility] PANEL 5 N N COMMUNTIY COMMUNTIY HOSPITA HOSPITA RADIOLOGI 65520 [facility] C EXAM 5 N N CHEST 2 COMMUNTIY COMMUNTIY VIEWS HOSPITA HOSPITA FRONTAL&[place] [address] [facility] THYROXINE 5 N N TOTAL COMMUNTIY COMMUNTIY HOSPITA HOSPITA CUL 74244 [facility] PRSMPTV 5 N N PTHGNC COMMUNTIY COMMUNTIY ORGANISM HOSPITA HOSPITA SCRN W/COLONY ESTIMJ COMPREHEN 05751 [facility] SIVE 5 N N METABOLIC COMMUNTIY COMMUNTIY PANEL HOSPITA HOSPITA COLLECTIO 59131 [facility] N VENOUS 5 N N BLOOD COMMUNTIY COMMUNTIY VENIPUN[place] [address] [facility] THYROID 5 N N STIMULATI COMMUNTIY COMMUNTIY NG HOSPITA HOSPITA HORMONE TSH ECG 92323 [facility] ROUTINE 5 N N ECG COMMUNTIY COMMUNTIY W/LEAST HOSPITA HOSPITA 12 LDS TRCG ONLY W/O I&R PHYSICAL 92815 [facility] THERAPY 5 [facility] EVALUATIO INC INC N COLLECTIO 80933 [facility] N VENOUS 5 [facility] BLOOD INC INC VENIPUNCT URE FIBRIN 70698 [facility] DGRADJ 5 [facility] PRODUCTS INC INC D-DIMER QUAL/SEMI GILBERT ECG 22412 [facility] ROUTINE 5 [facility] ECG INC INC W/LEAST 12 LDS TRCG ONLY W/O I&R COMPREHEN 85548 [facility] SIVE 5 [facility] [place] [address] [facility] TROPONIN 5 [facility] QUANTITAT INC INC SABIHA BLOOD 64635 [facility] COUNT 5 [facility] COMPLETE INC INC AUTO&AUTO DIFRNTL WBC URNLS DIP 75652 [place] [facility] [address] [facility] STICK/TAB INC INC LET REAGENT AUTO MICROSCOP Y ECG 93045 [place] CHAVEZ JR ROUTINE 5 [facility] W/LEAST P 12 LDS I&R ONLY RADIOLOGI 37421 [facility] C EXAM [address] [facility] CHEST 2 INC INC VIEWS FRONTAL&L ATERAL RADIOLOGI 79798 [facility] C EXAM [address] [facility] CHEST 2 INC INC VIEWS FRONTAL&L ATERAL ECG 24458 [place] MATUTE ROUTINE 5 [facility] W/LEAST P 12 LDS I&R ONLY BLOOD 06580 [facility] [facility] COUNT 5 [facility] COMPLETE INC INC AUTO&[place] [address] [facility] TROPONIN 5 [facility] QUANTITAT INC INC SABIHA COMPREHEN 92370 [facility] SIVE 5 [facility] [address] [facility] ANGIOGRAP [address] [facility] HY CHEST INC INC W/CONTRAS T/NONCONT RAST LOCM Q9967 [facility] [facility] 300-[address] [facility] MG/ML INC INC IODINE CONCENTRA TION PER ML ECG 34321 [facility] [facility] ROUTINE [address] [facility] ECG INC INC W/LEAST 12 LDS TRCG ONLY W/O I&R FIBRIN 58956 [facility] DGRADJ [address] [facility] PRODUCTS INC INC D-DIMER QUAL/SEMI GILBERT RADEX 37795 [place] HARLEEN SHOULDER 4 MEDICAL COMPLETE IMAGING MINIMUM 2 ASS VIEWS DESTRUCTI 72628 ATKINS ATKINS ON BENIGN 4 TRA TRA LESIONS UP TO 14 REPAIR 43379 ATKINS ATKINS COMPLEX 4 TRA TRA SCALP/ARM /LEG 1.1-2.5 CM LEVEL III 89022 SCALF LEI SCALF LEI SURG 4 PATHOLOGY GROSS&BRYCE ROSCOPIC EXAM THERAPEUT 41394 [facility] IC [address] [facility] INJECTION [place] [address] [place] [facility] HEAD/BRAI 4 MEDICAL ADRIANNA N W/O IMAGING CONTRAST ASS MATERIAL EGD 61902 [facility] TRANSORAL 4 N N BIOPSY [facility] SINGLE/MU HOSPITA HOSPITA LTIPLE ANES 10123 SEJAL BENSON UPPER GI 4 ANESTHESI JOSE ANGEL ENDOSCOPY A GROUP [place] [address] [facility], PICKLESIM SURG 4 [facility] PATHOLOGY GROSS&BRYCE ROSCOPIC EXAM SPECIAL 41591 [facility], PICKLESIM STAIN 4 [facility] 1 MICROORGA NISMS I&R SPCL STN 17710 [facility], PICKLESIM 2 I&R 4 [facility] EXCPT MICROORG/ ENZYME/IM CYT SPMTRY 93889 [facility] W/VC [address] [facility] EXPIRATOR INC INC Y ABHI W/WO MXML VOL VNTJ REPAIR 72652 ADVANCED SCALF LEI COMPLEX 4 DERMATOLO SCALP/ARM GY /LEG 1.1-2.5 CM EXC B9 20032 ADVANCED SCALF LEI LESION 4 DERMATOLO MRGN XCP GY SK TG S/N/H/F/G 1.1-2.0CM LEVEL III 37045 SCALF LEI SCALF LEI SURG 4 PATHOLOGY GROSS&BRYCE ROSCOPIC EXAM RADIOLOGI 26281 [place] HAR[facility]EN C EXAM 4 MEDICAL ADRIANNA CHEST 2 IMAGING VIEWS ASS FRONTAL&L ATERAL REMOVAL 24884 ATKINS ATKINS SKN TAGS 4 TRA TRA RESIDENT CARE SPEC FIBRQ TAGS ANY AREA UPW/15 CV STRS 14813 [place] MATUTE TST 4 [facility]OR HOSPITAL RX CONT P ECG I&R ONLY CV STRS 21963 [facility] TST 4 [facility] XERS&/OR INC INC RX CONT ECG TRCG ONLY ECHO 43698 [facility] TTHRC R-T 4 [facility] 2D INC INC W/WOM-MOD E COMPL SPEC&COLR D RADIOLOGI 87764 SEJAL Coronado EXAM 4 MEDICAL CARMEN CHEST 2 IMAGING VIEWS ASS FRONTAL&L ATERAL ECG 95930 SCOTT CHAVEZ JR ROUTINE 4 DWI DWI ECG W/LEAST 12 LDS I&R ONLY BASIC 78005 [facility] METABOLIC 4 [facility] PANEL INC INC CALCIUM TOTAL RADIOLOGI 57580 HARLEEN HARLEEN C 4 ADRIANNA ADRIANNA EXAMINATI [place] [address] [facility] TROPONIN 4 [facility] QUANTITAT INC INC SABIHA BLOOD 32812 [facility] COUNT 4 [facility] COMPLETE INC INC AUTO&AUTO DIFRNTL WBC ECG 53134 [facility] ROUTINE 4 [facility] ECG INC INC W/LEAST 12 LDS TRCG ONLY W/O I&R ECG 18951 [facility] ROUTINE 4 [facility] ECG INC INC W/LEAST 12 LDS TRCG ONLY W/O I&R CREATINE 35957 [facility] KINASE 4 [facility] TOTAL INC INC FIBRIN 33463 [place] [facility] DGRADJ 4 [facility] HOSP PRODUCTS INC INC D-DIMER QUAL/SEMI GILBERT CREATINE 39118 [facility] KINASE MB 4 [facility] FRACTION INC INC ONLY COMPREHEN 93480 [facility] SIVE 4 [facility] METABOLIC INC INC PANEL BLOOD 67874 [facility] COUNT 4 [facility] COMPLETE INC INC AUTO&[place] [address] [facility] TROPONIN 4 [facility] QUANTITAT INC INC SABIHA ECG 27043 ANKUR PASCUAL ROUTINE 4 BRYCE BRYCE ECG W/LEAST 12 LDS I&R ONLY RADIOLOGI 99648 CHANEL Morillo C EXAM 4 CHEST 2 VIEWS FRONTAL&L ATERAL HEMOGLOBI 26588 COMBINED COMBINED N 4 PHYSICIAN PHYSICIAN GLYCOSYLA S LA S LA LANEY A1C LIPID 59508 COMBINED COMBINED PANEL 4 PHYSICIAN PHYSICIAN S LA S LA GENERAL 10511 COMBINED COMBINED HEALTH 4 PHYSICIAN PHYSICIAN PANEL S LA S LA CYANOCOBA 73443 COMBINED COMBINED LYUBOV 4 PHYSICIAN PHYSICIAN VITAMIN S LA S LA B-12 [place] [address] COMBINED COMBINED FREE 4 PHYSICIAN PHYSICIAN THYROXINE S LA S LA 25 65716 COMBINED COMBINED HYDROXY 4 PHYSICIAN PHYSICIAN INCLUDES S LA S LA FRACTIONS IF PERFORMED SEDIMENTA 53446 COMBINED COMBINED TION RATE 4 PHYSICIAN PHYSICIAN RBC S LA S LA NON-AUTOM ATED SCREENING G0202 [place] HARLEEN 4 MEDICAL ADRIANNA MAMMOGRAP IMAGING HY WILBERT ASS INCL CAD WHEN PERFORMD COMPUTER- 15789 [place] HARLEEN AIDED 4 MEDICAL ADRIANNA DETECTION IMAGING ASS SCREENING MAMMOGRAP HY LIPID 84506 [facility] PANEL 4 DIAGNOSTI DIAGNOSTI CS CS IIV3 22403 DHS/CO [place] VACCINE 9 [facility] VIRUS 0.5 BANK ACCT ML DOSAGE IM USE RADEX 41897 KIMBERLEE ANKUR, SPINE 9 [facility] CORPORATI COMPL ON W/BENDING VIEWS MIN 6 RADIOLOGI 65392 [place] [facility] C 9 [facility] EXAMINATI INC INC ON PELVIS 1/2 VIEWS RADEX 80375 [facility] SPINE 9 [facility] LUMBOSACR INC INC AL MINIMUM 4 VIEWS RADEX HIP 77272 [place] SUMA, 9 MEDICAL MAX P UNILATERA IMAGING L ASSOCIATE COMPLETE S MINIMUM 2 VIEWS Encounters Encounter Start End Date Code Location Performer Type Date OFFICE 30758 [place] CHAND 7 7 [facility] T VISIT INC 10 MINUTES [facility] OUTPATIEN INC T [facility] [place] OUTPATIEN INC T OFFICE 28678 [facility] 7 7 [facility] T VISIT INTERNAL 15 MED MINUTES EMERGENCY 41148 [facility] SUGGS 7 7 PHYSICIAN DEPARTMEN S, PLLC T VISIT HIGH/URGE NT SEVERITY EMERGENCY 60509 [place] 7 7 [facility] DEPARTMEN INC T VISIT MODERATE SEVERITY [facility] [place] [facility] OUTPATIEN INC T OFFICE 31829 [facility] MAEGAN CHAND 7 7 PHYSICIAN T VISIT S GROUP 15 MINUTES [facility] [place] [facility] OUTPATIEN INC T [facility] [place] [facility] OUTPATIEN INC T EMERGENCY 56051 [place] 7 7 [facility] DEPARTMEN INC T VISIT LOW/MODER SEVERITY EMERGENCY 98555 [facility] PASCUAL 7 7 PHYSICIAN DEPARTMEN S, PLLC T VISIT MODERATE SEVERITY OFFICE 33779 [facility] T VISIT MEDICAL 25 GROUP MINUTES EMERGENCY 33266 [facility] PASCUAL 7 7 PHYSICIAN DEPARTMEN S, PLLC T VISIT MODERATE SEVERITY [facility] - 7 7 HEALTH OUTPATIEN [place] T OFFICE 34861 [place] CHAND 7 7 [facility] T VISIT 5 INC MINUTES [facility] [place] [facility] OUTPATIEN INC T EMERGENCY 52419 [place] 7 7 [facility] DEPARTMEN INC T VISIT LOW/MODER SEVERITY [facility] [place] [facility] 7 7 [facility] OUTPATIEN INC T EMERGENCY 00336 [facility] PASCUAL DEPT 7 7 PHYSICIAN VISIT S, PLLC HIGH SEVERITY& THREAT FUNCJ OFFICE 30238 [facility] MAEGAN CHAND 7 7 PHYSICIAN T VISIT S GROUP 10 MINUTES OFFICE 33171 [facility] ROSENTHAL OUTPATIEN 7 7 PARTNERS T VISIT OF [place] 25 CO MINUTES [facility] [place] [facility] OUTPATIEN [facility] T OFFICE 76706 [facility] OUTPATIEN 7 7 INA T VISIT INTERNAL 15 MED MINUTES EMERGENCY 43358 [place] 7 7 [facility] DEPARTMEN INC T VISIT HIGH/URGE NT SEVERITY [facility] [place] [facility] 7 7 [facility] OUTPATIEN [facility] EMERGENCY 78075 [facility] DEPT 7 7 PHYSICIAN VISIT S, PLLC HIGH SEVERITY& THREAT FUNCJ OFFICE 17184 [place] OUTPATIEN 7 7 [facility] T VISIT 5 INC MINUTES [facility] [place] - 7 7 [facility] OUTPATIEN [facility] EMERGENCY 51854 [facility] DEPT 7 7 PHYSICIAN VISIT S, PLLC HIGH SEVERITY& THREAT FUNCJ EMERGENCY 16839 [place] 7 7 [facility] DEPARTMEN [facility] T VISIT MODERATE SEVERITY [facility] [place] - 7 7 [facility] OUTPATIEN [facility] HOSPITAL [facility] - 7 7 HEALTH OUTPATIEN [place] T OFFICE 47487 [facility] OUTPATIEN 7 7 INA T VISIT INTERNAL 15 MED MINUTES [facility] 7 7 [facility] OUTPATIEN [place] T OFFICE 96922 [place] CELI [facility]PATIEN 7 7 [facility] T VIS[facility]OS[facility] 10 P MINUTES OFFICE 92865 [facility] FUNES OUTPATIEN 7 7 HEALTH T VISIT MEDICAL 25 GROUP MINUTES OFFICE 43308 YVETTE AVINA OUTPATIEN 7 7 MD RHIANNON, T VISIT PSC 15 MINUTES OFFICE 07068 [place] [facility] 7 7 [facility] 10 [facility]UTES [facility] [place] [facility] T OFFICE 86185 [place] [facility] 7 7 [facility] T VISIT 5 INC MINUTES [facility] [place] [facility] INC T OFFICE 62636 [place] WEISS JR OUTPATIEN 7 7 [facility] T VIS[facility] 10 P MINUTES [facility] [place] [facility] 7 7 [facility] OUTPATIEN INC T EMERGENCY 54485 SMILEY PASCUAL DEPT 7 7 PHYSICIAN VISIT S, PLLC HIGH SEVERITY& THREAT FUNCJ EMERGENCY 63389 [place] 7 7 [facility] DEPARTMEN INC T VISIT LOW/MODER SEVERITY OFFICE 92361 [place] ALATORRE OUTPATIEN 7 7 [facility] T VIS[facility] 10 P MINUTES [facility] [place] [facility] 7 [facility] T [facility] [place] [facility] 7 [facility] OUTPATIEN INC T EMERGENCY 85104 [place] 7 7 [facility] DEPARTMEN INC T VISIT HIGH/URGE NT SEVERITY [facility] [place] - 7 7 [facility] OUTPATIEN INC T PERIODIC 86567 [facility] KAM PREVENTIV 7 7 PHYSICIAN E MED EST S GROUP PATIENT [id number] OFFICE 86951 LUIS MATUTE OUTPATIEN 7 7 INA T VISIT INTERNAL 15 MED MINUTES [facility] [place] [facility] 7 [facility] OUTPATIEN INC T OFFICE 96918 [facility] MAEGAN OUTPATIEN 7 7 PHYSICIAN T VISIT S GROUP 15 MINUTES EMERGENCY 08676 [facility] JAQUEZ 7 7 PHYSICIAN DEPARTMEN S, [facility] T VISIT HIGH/URGE NT SEVERITY [facility] [place] [facility] 7 [facility] OUTPATIEN INC T OFFICE 48551 [place] CELI OUTPATIEN 7 7 [facility] T [facility]IS[facility] 10 P MINUTES [facility] [place] [facility] 7 [facility] OUTPATIEN INC T OFFICE 83778 YVETTE RHIANNON OUTPATIEN 7 7 MD RHIANNON, T VISIT PSC 10 MINUTES [facility] [place] [facility] OUTPATIEN INC T [facility] [place] [facility] OUTPATIEN INC T OFFICE 11714 [facility] KIMBERLY OUTPATIEN 7 7 PHYSICIAN T VISIT S GROUP 25 MINUTES OFFICE 93727 YVETTEMoni AVINA OUTPATIEN 7 7 MD RHIANNON, T NEW 30 PSC MINUTES [facility] [place] [facility] OUTPATI[facility] INC T OFFICE 79743 [facility] ISSA OUTPATIEN 7 7 PHYSICIAN T VISIT S GROUP 10 MINUTES OFFICE 35655 [place] OUT[facility]IEN 7 7 [facility] T VISIT 5 INC MINUTES [facility] [place] [facility] 7 7 [facility] OUTPATIEN INC T EMERGENCY 89420 [facility] SOTOMAYOR 7 7 PHYSICIAN JR RADHA Reddy [facility] T VISIT HIGH/URGE NT SEVERITY [facility] [place] [facility] 7 7 [facility] OUTPATIEN INC T OFFICE 36042 [facility] KIMBERLY OUTPATIEN 7 7 PHYSICIAN T VISIT S GROUP 25 MINUTES OFFICE 13388 [place] [facility] OUTPATIEN 7 7 INA T VISIT INTERNAL 15 MED MINUTES OFFICE 44202 [facility] KIMBERLY OUTPATIEN 7 7 PHYSICIAN T VISIT S GROUP 25 MINUTES [facility] [place] [facility] 7 [facility] OUTPATIEN INC T OFFICE 60878 [facility] OUTPATIEN 7 7 [place] T VISIT ORTHOPAED 15 IC [facility] [place] [facility] 7 7 [facility] OUTPATIEN INC T EMERGENCY 17974 [place] 7 7 [facility] DEPARTMEN INC T VISIT HIGH/URGE NT SEVERITY EMERGENCY 72408 [facility] ARMIJO DEPT 7 7 PHYSICIAN VISIT S, [facility] HIGH SEVERITY& THREAT FUN OFFICE 98134 [place] GIOVANI OUTPATIEN 7 7 INA T VISIT INTERNAL 25 MED [facility] [place] [facility] 7 7 [facility] OUTPATIEN INC T OFFICE 60726 [place] [facility]PATI[facility] 7 7 [facility] T VISIT 5 [facility] OFFICE 64514 [facility] 7 7 [place] T NEW 30 ORTHOPAED MINUTES IC EMERGENCY 86891 [facility] JIMENEZ DEPT 7 7 PHYSICIAN U VISIT S, [facility] HIGH SEVERITY& THREAT [facility] [place] [facility] 7 7 [facility] OUTPATIEN INC T EMERGENCY 07762 [place] 7 7 [facility] DEPARTMEN INC T VISIT LOW/MODER SEVERITY [facility] [place] - 7 7 [facility] OUTPATIEN INC T EMERGENCY 20856 [place] 7 7 [facility] DEPARTMEN INC T VISIT MODERATE SEVERITY [facility] [place] - 7 7 [facility] INC T [facility] [place] [facility] 7 7 [facility] OUTPATI[facility] INC T EMERGENCY 83501 SMI[facility] PASCUAL 7 7 PHYSICIAN DEPARTMEN S, [facility] T VISIT HIGH/URGE NT SEVERITY EMERGENCY 57332 [place] 7 7 [facility] DEPARTMEN INC T VISIT LOW/MODER SEVERITY [facility] [place] [facility] T OFFICE 08035 [place] [facility] T VISIT 5 INC MINUTES OFFICE 76007 [facility] 7 7 [facility] T VISIT INTERNAL 15 MED [facility] [place] [facility] 7 7 [facility] EMERGENC[facility] 53396 [place] 7 7 [facility] T VISIT [facility]OW/MODER SEVERITY EMERGENCY 83234 [facility] 7 7 [facility] EMERGENC[facility] T VISIT PHYS MODERATE SEVERITY [facility] [place] [facility] T OFFICE 22705 [place] [facility] 7 [facility] T [facility]ISIT 5 INC MINUTES OFFICE 62436 [place] [facility] 7 7 [facility] T VISIT INTERNAL 15 MED [facility] [place] [facility] T OFFICE 93428 [place] [facility] 7 [facility] T VISIT 5 INC MINUTES EMERGENCY 18055 SMILEY MEDEROS 7 7 PHYSICIAN DEPARTMEN S, [facility] T VISIT MODERATE SEVERITY OFFICE 65803 [place] [facility] 7 7 [facility]IT 5 INC [facility] [place] [facility] [place] [facility] T OFFICE 48917 [place] [facility] 7 7 [facility] T NEW 10 INC MINUTES OFFICE 38337 [facility] [place] 7 7 [facility] T VISIT INTERNAL 25 MED MINUTES OFFICE 40012 [facility] JASSO OUTPATIEN 7 7 T VISIT 25 MINUTES [facility] [place] - 7 7 HEALTH OUTPATIEN [facility] EMERGENCY 55185 [place] 7 7 [facility] DEPARTMEN INC T VISIT LIMITED/M INOR [facility] [place] - 7 7 [facility]PATIEN [facility] [place] [facility] OUTPATIEN [facility] EMERGENCY 10663 [place] 7 7 [facility] T VISIT LOW/MODER SEVERITY EMERGENCY 84991 SMI[facility] PASCUAL 7 7 PHYSICIAN [facility] T VISIT MODERATE [facility]VERITY [facility] [place] [facility] 7 7 [facility] OUTPATIEN [facility] EMERGENCY 24136 [place] 7 7 [facility] T VISIT LIMITED[facility]M INOR [facility] - 7 7 [facility] 7 7 [facility] [place] - 6 6 [facility] 85340 SMILEY SOTOMAYOR, 6 6 PHYSICIAN [facility] HIGH/URGE NT SEVERITY OFFICE 22756 [facility] 6 6 [facility] VISIT INTERNAL 15 MED MINUTES EMERGENCY 96600 S[facility] JAQUEZ 6 6 PHYSICIAN [facility] T VISIT HIGH/URGE NT SEVERITY [facility] [place] [facility] 6 6 [facility] EM[facility]ENC[facility] 94755 [place] 6 6 [facility] T VISIT MODERATE SEVERITY EMERGENCY 53263 SMILEY ARMIJO 6 6 PHYSICIAN [facility] VISIT MODERATE SEVERITY EMERGENCY 13075 [place] 6 6 [facility] T VISIT LOW/MODER SEVERITY [facility] [place] - 6 6 [facility] OUTPATIEN [facility] EMERGENCY 76488 S[facility] PASCUAL 6 6 PHYSICIAN [facility] T VISIT MODERATE SEVERITY OFFICE 69425 SCIFRES SCIFRES OUTPATIEN 6 6 ANG ANG T VISIT 10 MINUTES OFFICE 82796 [place] A[facility] OUTPATI[facility] 6 6 INA OFELIA T VISIT INTERNAL 15 MED MINUTES OFFICE 92689 WENDY MARTINEZ OUTPATIEN 6 6 T VISIT BARIATRIC 25 SURGICAL MINUTES EMERGENCY 60793 SMILEY SOTOMAYOR, 6 6 PHYSICIAN JR [facility] T VISIT HIGH/URGE NT SEVERITY [facility] [place] [facility] 6 6 [facility] INC T EMERGENCY 75392 [place] 6 6 [facility] DEPARTMEN INC T VISIT LOW/MODER SEVERITY EMERGENCY 03225 SMI[facility] PASCUAL 6 6 [facility]ICIAN [facility] T VISIT MODERATE SEVERITY OFFICE 49190 [facility] JULIAU OUTPATIEN 6 6 [facility] N[facility]O T VISIT MEDICAL 15 G MINUTES [facility] [place] [facility] 6 6 [facility] INC T OFFICE 31926 [facility] HUMPHREY OUTPATIEN 6 6 PHYSICIAN MEAGAN T VISIT S GROUP 15 MINUTES OFFICE 99599 [facility] MAEGAN OUTPATIEN 6 6 PHYSICIAN JARON T VISIT S GROUP 10 MINUTES [facility] [place] [facility] T [facility] [place] [facility] 6 6 [facility] T [facility] [place] [facility] 6 [facility] INC T EMERGENCY 09563 [place] 6 6 [facility] DEPARTMEN INC T VISIT MODERATE SEVERITY OFFICE 62819 [facility] ISSA OUTPATIEN 6 6 PHYSICIAN JARON T VISIT S GROUP 10 MINUTES OFFICE 66592 [place] ALATORRE OUTPATIEN 6 6 [facility] 10 P MINUTES OFFICE 38709 DOMINICK ANDRES OUTPATIEN 6 6 HEALTH IV HEN T VISIT MEDICAL 15 GROUP MINUTES OFFICE 18307 PERLA RODRIGUEZ TRI OUTPATIEN 6 6 GROUND T VISIT FAMILY 25 CLINI MINUTES OFFICE 86259 [facility] T VISIT 5 HLTH DEPT HL DEPT MINUTES JAZZ JAZZ EMERGENCY 29949 [place] 6 6 [facility] DEPARTMEN INC T VISIT LOW/MODER SEVERITY [facility] [place] [facility] 6 6 [facility] OUTPAT[facility]EN INC T EMERGENCY 32960 SMILEY ARMIJO 6 6 PHYSICIAN CASANDRA GARCIA S [facility] T VISIT HIGH/URGE NT SEVERITY [facility] [place] [facility] 6 6 [facility] INC T OFFICE 49405 [facility] T VISIT [facility] DEPT [facility] DEPT 15 JAZZ JAZZ MINUTES OFFICE 92554 [facility] KIMBERLY OUTPATIEN 6 6 PHYSICIAN JULIUS T VISIT S GROUP 25 MINUTES OFFICE 41634 [facility] OUT[facility] 6 6 T VISIT BARIATRIC 25 SURGICAL MINUTES EMERGENCY 09817 SMILEY PASCUAL 6 6 PHYSICIAN BRYCE GARCIA [facility] T VISIT MODERATE SEVERITY OFFICE 37117 [facility] KIMBERLY OUTPATIEN 6 6 PHYSICIAN JULIUS Ng NEW 45 S GROUP MINUTES EMERGENCY 11439 S[facility] JIMENEZ 6 6 PHYSICIAN Taylor [facility]ARCIA [facility]IS[facility] HIGH/URGE NT SEVERITY [facility] [place] [facility] 6 [facility] OUT[facility] INC T OFFICE 61855 ALLERGY ROSENTHAL MAR OUTPATIEN 6 6 PARTNERS T VISIT OF [place] 40 CO MINUTES [facility] [place] [facility] 6 6 [facility] OUTPAT[facility]EN INC T EMERGENCY 39564 [place] 6 6 [facility] DEPARTMEN INC T VISIT LOW/MODER SEVERITY EMERGENCY 07898 SMI[facility] PASCUAL 6 6 PHYSICIAN BRYCE DEPARTMEN S, PLLC T VISIT MODERATE SEVERITY OFFICE 09999 [facility] OUTPATIEN 6 6 N T VISIT NEUROLOGY 10 MINUTES [facility] [place] [facility] 6 [facility] INC T EMERGENCY 67407 SMILEY SOTOMAYOR, 6 6 PHYSICIAN JR MANUELITO FUENTESMEN S, PLLC T VISIT MODERATE SEVERITY [facility] [place] - 6 6 [facility] OUTPATIEN INC T EMERGENCY 77367 SMILEY PASCUAL DEPT 6 6 PHYSICIAN BRYCE VISIT S, PLLC HIGH SEVERITY& THREAT FUN OFFICE 28480 [place] [facility] OUT[facility] 6 6 [facility] VISIT HOSPITAL 10 P MINUTES EMERGENCY 67334 [place] 6 6 [facility] DEPARTMEN INC T VISIT MODERATE SEVERITY EMERGENCY 26500 SMILEY SOTOMAYOR, 6 6 PHYSICIAN JR MANUELITO FUENTESMEN S, PLLC T VISIT HIGH/URGE NT SEVERITY [facility] [place] - 6 6 [facility] OUTPATIEN INC T OFFICE 31764 [place] WEISS JR OUTPATIEN 6 6 [facility] T VISIT [facility]OSPITAL 10 P MINUTES EMERGENCY 55443 SMILEY PASCUAL DEPT 6 6 PHYSICIAN BRYCE VISIT S, PLLC HIGH SEVERITY& THREAT [facility] OFFICE 41685 ALLERGY ROSENTHAL MAR CONSULTAT 6 6 PARTNERS [facility] [place] NEW/ESTAB CO PATIENT 60 MIN EMERGENCY 03504 SMILEY PASCUAL 6 6 PHYSICIAN BRYCE DEPARTMEN S, PLLC T VISIT MODERATE SEVERITY EMERGENCY 70220 SMILEY PASCUAL DEPT 6 6 PHYSICIAN BRYCE VISIT S, PLLC HIGH SEVERITY& THREAT FUNJ [facility] [place] [facility] 6 [facility] OUT[facility]EN INC T OFFICE 96922 [facility] OUTPATIEN 6 6 PHYSICIAN T VISIT S GROUP 25 MINUTES EMERGENCY 84198 SMILEY SUGGS [facility] 6 6 PHYSICIAN DEPARTMEN S, PLLC T VISIT LOW/MODER SEVERITY EMERGENCY 55292 SMILEY PASCUAL 6 6 PHYSICIAN BRYCE DEPARTMEN S, PLLC T VISIT MODERATE SEVERITY EMERGENCY 77190 [place] 6 6 [facility] DEPARTMEN INC T VISIT LOW/MODER SEVERITY [facility] [place] [facility] 6 6 [facility]PAT[facility]EN INC T H[facility]PITAL [facility] - 6 6 N OUTPATIEN COMMUNTIY T HOSPITA OFFICE 55244 [facility] ISSA OUTPATIEN 6 6 PHYSICIAN JARON T NEW 20 S GROUP MINUTES EMERGENCY 55591 SMILEY ARMIJO DEPT 6 6 PHYSICIAN CASANDRA VISIT S, PLLC HIGH SEVERITY& THREAT FUNJ EMERGENCY 54642 SMILEY PASCUAL 6 6 PHYSICIAN BRYCE DEPARTMEN S, PLLC T VISIT HIGH/URGE NT SEVERITY [facility] 6 6 N OUTPATIEN COMMUNTIY T HOSPITA EMERGENCY 50586 SMILEY PASCUAL DEPT 6 6 PHYSICIAN BRYCE VISIT S, PLLC HIGH SEVERITY& THREAT FUNCJ OFFICE 02461 [facility] OUTPATIEN 6 6 T VISIT BARIATRIC 25 SURGICAL MINUTES EMERGENCY 23944 ANGELITO DUMONT 6 6 EMERGENCY HOW DEPARTMEN PHYS PSC T VISIT MODERATE SEVERITY [facility] - 6 6 HEALTH OUTPATIEN [place] [facility] [place] - 6 6 [facility] OUTPAT[facility]EN INC T EMERGENCY 25768 SMILEY BAGLEY DEPT 6 6 PHYSICIAN FOR VISIT S, PLLC HIGH SEVERITY& THREAT FUNCJ EMERGENCY 16665 [place] 6 6 [facility] DEPARTMEN INC T VISIT LOW/MODER SEVERITY [facility] [place] [facility] 6 6 [facility] OUTPATIEN INC T EMERGENCY 35498 SMILEY PASCUAL 6 6 PHYSICIAN BRYCE DEPARTMEN S, PLLC T VISIT HIGH/URGE NT SEVERITY EMERGENCY 33271 SMILEY SUGGS [facility] 6 6 PHYSICIAN DEPARTMEN S, PLLC T VISIT HIGH/URGE NT SEVERITY EMERGENCY 45742 [facility] 6 6 ROSALEE JOSE ANGEL DEPARTMEN EMERGENCY T VISIT PHYS HIGH/URGE NT SEVERITY HOSPITAL [facility] - 6 6 N OUTPATIEN COMMUNTIY T [facility] [place] [facility] 6 6 [facility] OUTPAT[facility] INC T EMERGENCY 71290 [place] DEPT 6 6 [facility] VISIT INC HIGH SEVERITY& THREAT FUNCJ OFFICE 83663 [facility] CONSULT 6 6 N ION NEUROLOGY NEW/ESTAB PATIENT 60 MIN OFFICE 70027 [facility] OUT[facility] 6 6 MATTI MATTI T NEW 30 MINUTES OFFICE 05224 SCALF LEI SCALF LEI OUTPATIEN 6 6 T VISIT 25 MINUTES EMERGENCY 31871 SMILEY PASCUAL DEPT 6 6 PHYSICIAN BRYCE VISIT S, PLLC HIGH SEVERITY& THREAT FUNCJ OFFICE 27795 [place] [facility] OUTPATIEN 6 6 [facility] T VISIT INTERNAL 15 MED [facility] - 6 6 HEALTH OUTPATIEN [facility] [place] - 6 6 [facility] OUTPATIEN INC T EMERGENCY 94867 SMILEY PASCUAL DEPT 6 6 PHYSICIAN BRYCE VISIT S, PLLC HIGH SEVERITY& THREAT FUNCJ OFFICE 24508 [facility] [place] OUTPATIEN 6 6 HEALTH KADIE T VISIT MEDICAL 15 GROUP MINUTES OFFICE 50028 [facility] SANCHEZ MICHELLE OUTPATIEN 6 6 T VISIT BARIATRIC 25 SURGICAL MINUTES [facility] [place] [facility] 6 6 [facility] OUTPATIEN INC T OFFICE 33159 [place] [facility] OUT[facility] 6 6 INA OFELIA T VISIT INTERNAL 15 MED MINUTES INITIAL 90409 [facility] PREVENTIV 6 6 PHYSICIAN E S GROUP MEDICINE NEW PATIENT 40-64YRS OFFICE 17541 ORTHODOXY [place] OUTPATIEN 6 6 PRIMARY KADIE T VISIT CARE OF 15 ABISAI [facility] [place] [facility] OUT[facility]IEN INC T OFFICE 13281 [place] [facility] 6 6 INA OFELIA T VISIT INTERNAL 15 MED [facility] [place] [facility] OUTPATIEN INC T OFFICE 34493 WENDY SANCHEZ MICHELLE OUTPATIEN 5 5 T VISIT BARIATRIC 25 SURGICAL MINUTES OFFICE 96746 ATKINS ATKINS OUTPATIEN 5 5 TRA TRA T VISIT 25 MINUTES PERIODIC 67169 [facility] E MED EST HLTH DEPT HLTH DEPT PATIENT JAZZ SCHULZ 40-64YRS OFFICE 34801 WENDY SANCHEZ MICHELLE OUTPATIEN 5 5 T VISIT BARIATRIC 15 SURGICAL [facility] [place] [facility] 5 5 [facility] OUTPATIEN INC T OFFICE 58543 [place] [facility]PATI[facility] 5 5 [facility] OFELIA T NEW 30 INTERNAL MINUTES [facility] [place] - 5 5 [facility] OUTPATIEN INC T OFFICE 59200 [facility] PETTEY OUTPATIEN 5 5 PHYSICIAN JAM T VISIT S GROUP 15 MINUTES OFFICE 91718 GASTROENT CASE JUS OUTPATIEN 5 5 EROLOGY T VISIT AND 15 HEPATOL MINUTES OFFICE 60177 ORTHODOXYBerenice [facility] OUTPATIEN 5 5 HEALTH KADIE T VISIT MEDICAL 10 GROUP MINUTES [facility] [place] - 5 5 N OUTPATIEN COMMUNTIY T HOSPFORMERLY [facility] EMERGENCY 44778 SMILEY HUTCHISON 5 5 PHYSICIAN TAQUERIA HOWE T VISIT HIGH/URGE NT SEVERITY [facility] [place] - 5 5 [facility] OUTPATIEN INC [facility] - 5 5 N OUTPATIEN COMMUNTIY T [facility] [place] [facility] 5 5 [facility] OUTPATIEN [facility] T OFFICE 34633 GASTROENT CASE JUS OUTPATIEN 5 5 EROLOGY T NEW 45 AND MINUTES HEPATOL EMERGENCY 46338 [place] SOTOMAYOR, 5 5 [facility] T VISIT P LOW/MODER SEVERITY [facility] [place] - 5 5 [facility] OUTPATIEN [facility] T OFFICE 28959 DANIEL SANCHEZ OUTPATIEN 5 5 HUBER HUBER T VISIT 15 MINUTES EMERGENCY 31352 [place] SOTOMAYOR, 5 5 [facility] T VISIT P MODERATE SEVERITY [facility] [place] - 5 5 [facility] - 5 5 N OUTPATIEN COMMUNTIY [facility] 5 5 N OUTPATIEN COMM[facility]TIY [facility] - 5 5 N INPATIENT COMMUNTIY [facility] [place] - 5 5 [facility] OUTPATIEN INC T OFFICE 51054 WENDY MARTINEZ OUTPATIEN 5 5 T VISIT BARIATRIC 40 SURGICAL MINUTES OFFICE 81533 DANIEL TOLEDOPATIEN 5 5 HUBER HUBER T VISIT 15 MINUTES EMERGENCY 81342 [place] 5 5 [facility] DEPARTMEN INC T VISIT LOW/MODER SEVERITY [facility] [place] - 5 5 [facility] OUTPATIEN INC T [facility] [place] [facility] 5 5 [facility] OUTPATIEN INC T [facility] [place] - 5 5 N OUTPATIEN COMMUNTIY T H[facility]ERLY [facility] [place] [facility] 5 5 [facility] OUTPATIEN INC T OFFICE 17263 [place] CELI OUTPATIEN 5 5 [place] [address] HOSPITAL MINUTES P [facility] [place] - 5 5 [facility] OUTPATIEN INC T OFFICE 85203 MELANIE NOGUEIRA OUTPATIEN 5 5 MEDICAL JAM T VISIT SERV 15 FOUNDATIO MINUTES N OFFICE 54441 [place] IESLA RIVERS OUTPATIEN [address] MINUTES P OFFICE 44973 [facility] PETTEY OUTPATIEN 5 5 PHYSICIAN JAM T NEW 30 S GROUP MINUTES OFFICE 12037 [facility] CONSULTAT 5 5 [facility] NEW/ESTAB G PATIENT 60 MIN OFFICE 86112 DANIEL CHAND 5 5 HUBER HUBER T VISIT 15 MINUTES EMERGENCY 20576 [place] ESCOTO 5 5 [facility] T VISIT P MODERATE SEVERITY [facility] [place] - 5 5 [facility] OUTPATIEN INC T EMERGENCY 20433 [place] 5 5 [facility] DEPARTMEN INC T VISIT HIGH/URGE NT SEVERITY [facility] [place] - 5 5 [facility] OUTPATIEN INC T EMERGENCY 95870 [place] 5 5 [facility] DEPARTMEN INC T VISIT HIGH/URGE NT SEVERITY OFFICE 57081 DANIEL CHAND 5 5 HUBER HUBER T VISIT 15 MINUTES OFFICE 65275 DANIEL CHAND 4 4 HUBER HUBER T VISIT 15 MINUTES EMERGENCY 75632 [place] 4 4 [facility] INC T VISIT LOW/MODER SEVERITY [facility] [place] - 4 4 [facility] OUTPATIEN INC T OFFICE 09030 [place]ANDOB[place] DANIEL CHAND 4 4 HUBER HUBER T VISIT 15 MINUTES [facility] [place] - 4 4 [facility] OUTPATIEN INC T EMERGENCY 03983 [facility] DE[facility] 4 4 ROSALEE VISIT EMERGENCY HIGH PHYS SEVERITY& THREAT [facility] - 4 4 N OUTPATIEN [facility] OFFICE 38124 DANIEL CHAND 4 4 HUBER HUBER T VISIT 15 MINUTES OFFICE 38988 MONALISA CHAPIN CONSULTAT 4 4 KADIE ION CARDIOLOG NEW/ESTAB Y AT CENT PATIENT 40 MIN OFFICE 43688 ID JERO CONSULTAT 4 4 MEDICAL JAM ION SERV NEW/ESTAB FOUNDATIO PATIENT N 60 MIN [facility] [place] - 4 4 [facility] OUTPATIEN [facility] [place] - 4 4 [facility] OUTPATIEN INC T OFFICE 19046 DANEIL CHAND 4 4 HUBER HUBER T VISIT 15 MINUTES OFFICE 72390 [facility] OUTPATIEN 4 4 NE [facility]ALTH NACHO T VISIT MEDICAL 15 G MINUTES OFFICE 33057 ATKINS ATKINS CONSULTAT 4 4 TRA TRA ION NEW/ESTAB PATIENT 40 MIN [facility] [place] - 4 4 [facility] OUTPATIEN INC T OFFICE 16110 [facility] FALLUJI OUTPATIEN 4 4 NE HEALTH NACHO T NEW 30 MEDICAL MINUTES G EMERGENCY 86419 [facility] DEPT 4 4 ROSALEE MOH VISIT EMERGENCY HIGH PHYSI SEVERITY& THREAT FUN EMERGENCY 71630 [place] 4 4 [facility] DEPARTMEN INC T VISIT MODERATE SEVERITY [facility] [place] - 4 4 [facility] OUTPATIEN INC T EMERGENCY 82250 HORTENCIA HUGHES DEPT 4 4 VISIT HIGH SEVERITY& THREAT FUNCJ EMERGENCY 45470 ANKUR PASCUAL DEPT 4 4 BRYCE BRYCE VISIT HIGH SEVERITY& THREAT FUNJ EMERGENCY 03156 [place] 4 4 [facility] DEPARTMEN INC T VISIT HIGH/URGE NT SEVERITY [facility] [place] [facility] 4 4 [facility] OUTPATIEN INC T OFFICE 67186 DANIEL SANCHEZ OUTPATIEN 4 4 HUBER HUBER T VISIT 15 MINUTES OFFICE 59189 SANCHEZ MICHELLE SANCHEZ MICHELLE CONSULTAT 4 4 ION NEW/ESTAB PATIENT 80 MIN OFFICE 34562 DANIEL SANCHEZ OUTPATIEN 4 4 HUBER HUBER T NEW 30 MINUTES [facility] [place] [facility] OUTPATIEN INC T OFFICE 76256 ISSA ISSA OUTPATIEN 4 4 JARON JARON T VISIT 5 MINUTES OFFICE 34323 ISSA ISSA OUTPATIEN 4 4 JARON JARON T NEW 30 MINUTES Emergency PATRIC Burnett MD (ER) 4 16:35 4 17:31 [facility] Emergency PATRIC BURNETT (ER) 3 16:45 3 18:19 [facility] EMERGENCY 02008 [facility] 9 9 [facility] DEPARTMEN INC T VISIT LOW/MODER SEVERITY EMERGENCY 68350 KIMBERLEE PASCUAL, 9 9 [facility] T VISIT ON HIGH/URGE NT SEVERITY [facility] [place] [facility] 9 9 [facility] OUTPATIEN INC T
--- OUTSIDE RECORDS SUMMARY | 2017-09-10 00:20 | External Medical Summary Rpt | CCD ---
Author Author , YENNY Organization YENNY Address Unknown Phone [email or web address] Providers Care Housekeeping Staff Name Role Phone ALFARIS MOH, ALFARIS Unavailable Unavailable MOH [facility] Unavailable Unavailable [place], [facility] [place] YVETTE JURADO MD, PSC, Unavailable Unavailable YVETTE JURADO MD, PSC ARNOLD HUBER, ARNOLD Unavailable Unavailable HUBER ARNOLD HUBER, ARNOLD Unavailable Unavailable HUBER ATKINS TRA, ATKINS Unavailable Unavailable TRA ATKINS TRA, ATKINS Unavailable Unavailable TRA [facility] Un[facility] Unavailable [facility] Unavailable Unavailable MEDICAL GROUP, [facility] Un[facility] Unavailable [facility], [facility] Unavailable Unavailable OF [facility], [facility] CHANEL BUCHANAN Unavailable Unavailable BEINEKE D, BEINEKE D Unavailable Unavailable BEINEKE CARMEN, BEINEKE Unavailable Unavailable CARMEN DUMONT HOW, DUMONT Unavailable Unavailable HOW BESSON, BESSON Unavailable Unavailable BESSON DOMINIQUE, BESSON Unavailable Unavailable DOMINIQUE [facility] Unavailable Unavailable SURG[facility], [facility] BOLIEK KADIE, BOLIEK Unavailable Unavailable KADIE CERRATO, CERRATO Unavailable Unavailable CERRATO ALL, CERRATO ALL Unavailable Unavailable [facility] Unavailable Unavailable [facility], [facility] Unavailable Unavailable SERVICE, [facility] Unavailable Unavailable SERVICE, [facility] BUX, BUX Unavailable Unavailable SVITLANA KILO, SVITLANA Unavailable Unavailable KILO CASE JUS, CASE JUS Unavailable Unavailable [facility] Unavailable Unavailable [facility]YS [facility], [facility] Unavailable Unavailable [facility], [facility] CHESTNUT, CHESTNUT Unavailable Unavailable HUMPHREY, HUMPHREY [...] AND Unavailable Unavailable HEPATOL, [facility] Unavailable Unavailable HOSPITA, [facility] Unavailable Unavailable HOSPITA, [facility], Unavailable Unavailable [facility] RODRIGUEZ TRI, RODRIGUZE TRI Unavailable Unavailable ANDREWS RHO, ANDREWS Unavailable Unavailable [facility] Unavailable Unavailable CENTER, [facility] Unavailable Unavailable INC, [facility] Unavailable Unavailable HOSPITAL P, [facility] P BOYER CHRISTEL, BOYER CHRISTEL Unavailable Unavailable [facility], Unavailable Unavailable [facility] JAQUEZ, JAQUEZ Unavailable Unavailable VAUGHN TERA, VAUGHN Unavailable Unavailable TERA ADAMS, ADAMS Unavailable Unavailable ILUYOMADE ROT, Unavailable Unavailable [facility] DUARTE, DUARTE Unavailable Unavailable [facility] Unavailable Unavailable GROUP PS, [facility] Unavailable Unavailable [facility], [facility] Unavailable Unavailable MEDICAL G, [facility] ELYSSA BURNETT, Unavailable Unavailable [...] HEART [facility]available Unavailable SPECIALISTS,, [facility], [facility] Unavailable Unavailable [facility], [facility] BRITTNY, BRITTNY Unavailable Unavailable BRITTNY ANT, BRITTNY ANT Unavailable Unavailable NAJERA, NJAERA Unavailable Unavailable LUKING, LUKING Unavailable Unavailable LUKING, [...] SOTINGEANU SOTINGEANU CARMEN, Unavailable Unavailable SOTINGEANU CARMEN [facility] Unavailable Unavailable EMERGENCY PHYS, [facility] Unavailable Unavailable [facility], [facility] STROUB, STROUB Unavailable Unavailable ZAVALA, ZAVALA Unavailable Unavailable [facility] Unavailable Unavailable [address]591, [facility]ALK[facility] FOR, WALKER Unavailable Unavailable [facility] Unavailable Unavailable DEPT [facility] Unavailable Unavailable DEPT [facility], [facility] SANCHEZ, SANCHEZ Unavailable Unavailable SANCHEZ [...] HOSP INC R51 HEADACHE 07-15-2017 [facility] SHERIFF, [facility] [id number] OTHER LONG 07-15-2017 [facility] TERM [facility] CURRENT INC DRUG THERAPY J309 ALLERGIC 07-11-2017 [facility] RHINITIS PHYSICIANS UNSPECIFIED GROUP J320 CHRONIC 07-11-2017 [facility] MAXILLARY PHYSICIANS SINUSITIS GROUP Z1231 ENCOUNTER 07-09-2017 [place] SCREENING MEDICAL MAMMO MALIG IMAGING ASS NEOPLASM BREAST E6601 MORBID 07-08-2017 [facility] OBESITY DUE MEDICAL TO EXCESS GROUP CALORIES K5900 CONSTIPATIO 07-08-2017 [facility] UNSPECIFIED MEDICAL GROUP R0981 NASAL 07-08-2017 [facility] WARD PHYSICIANS, [facility] R110 NAUSEA 07-08-2017 [facility] R635 ABNORMAL 07-08-2017 [facility] Z6841 BODY MASS 07-08-2017 [facility] INDEX BMI HEALTH 40.0-44.9 MEDICAL ADULT GROUP [id number] BARIATRIC 07-08-2017 [facility] STATUS [facility] GROUP R202 PARESTHESIA 07-07-2017 [facility] NEUROLOGY [id number] UNSPECIFIED 06-30-2017 [facility] ASTHMA PHYSICIANS, UNCOMPLICAT [facility] ED H524 PRESBYOPIA 06-27-2017 SCIFRCANELO Z539 PROCEDURE & 06-26-2017 [facility] HEALTH NOT CARRIED [place] OUT UNS REASON B370 CANDIDAL 06-22-2017 [place] STOMATITIS [facility] INC R1084 GENERALIZED 06-20-2017 [facility] ABDOMINAL PHYSICIANS, PAIN PLLC R109 UNSPECIFIED 06-20-2017 [place] ABDOMINAL [facility]ICAL PAIN IMAGING ASS R140 ABDOMINAL 06-20-2017 [place] DISTENSION MEDICAL GASEOUS IMAGING ASS J3501 CHRONIC 06-19-2017 [facility] TONSILLITIS PHYSICIANS GROUP J301 ALLERGIC 06-11-2017 [facility] RHINITIS [facility] OF DUE TO [place] POLLEN J3081 ALLERG 06-11-2017 [facility] RHINITIS PARTN[facility] OF D/T ANIMAL [place] CAT DOG HAIR & DANDER J3089 OTHER 06-11-2017 [facility] ALLERGIC [facility] RHINITIS [place] J4530 MILD 06-11-2017 [facility] PERSISTENT PARTNERS OF ASTHMA [place] UNCOMPLICAT ED U67647 OTHER 06-11-2017 [facility] ASTHMA EQUIPMENT INC Q94997 ALLERGY TO 06-11-2017 [facility] OTHER FOODS [facility] [place] R002 PALPITATION 06-10-2017 [facility] P [id number] UNS INJURY 06-10-2017 [facility] LOWER MEDICAL LEG INITIAL IMAGING ASS ENCOUNTER R079 CHEST PAIN 06-04-2017 [facility] UNSPECIFIED [facility] INTERNAL MED [id number] SPRAIN 06-01-2017 [facility] UNSPECIFIED [facility] P KNEE INITIAL ENCNTR J268JBI UNS ADVERS 06-01-2017 [facility] EFFECT PHYSICIANS, DRUG/MEDICA [facility] MENT INITIAL ENCNTR [id number] FALL SAME 06-01-2017 [facility] P FURN INITIAL ENC G77442 BEDROOM 06-01-2017 [facility] SINGLE-FAM [facility] P OCCUR EXT CAUSE E785 HYPERLIPIDE 05-19-2017 [facility] [place] UNSPECIFIED ANESTHESIA K449 DIAPHRAGMAT 05-19-2017 [facility] IC HERNIA [place] W/O ANESTHESIA OBSTRUCTION OR GANGRENE R1310 DYSPHAGIA 05-19-2017 [facility] UNSPECIFIED PHYS SURG CTR J069 ACUTE UPPER 05-05-2017 [facility] RESPIRATORY INC INFECTION UNSPECIFIED R072 PRECORDIAL 05-05-2017 [facility] , R0789 OTHER CHEST 05-04-2017 [facility] PAIN PHYSICIANS, PLLC Z809 FAMILY 05-04-2017 [facility] HISTORY OF [facility] MALIGNANT INC NEOPLASM UNSPECIFIED Z8249 FAMILY HX 05-04-[address] [facility] HRT DZ OT HOSPITAL P DZ CIRC SYSTEM Z833 FAMILY 05-04-[address] [facility] DIABETES [facility] P MELLITUS W32913 ENCOUNTER 04-30-2017 [facility] CARIOVASCUL AR EXAM X94397 ENCOUNTER 04-30-2017 [facility] LABORATORY EXAM B977 PAPILLOMAVI 04-29-2017 [facility], [facility] OF DZ CLASSIFIED ELSEWHERE N870 MILD 04-29-2017 [facility], CERVICAL LLC DYSPLASIA C78253 ATYP SQ 04-29-2017 [facility] CELLS UNDET PHYSICIANS GROUP SIGNIFICANC E CYTOL SMER CERV I97335 CERV HIGH 04-29-2017 [facility] RSK HUMAN PHYSICIANS PAPILLOMAVI GROUP RAJ DNA TEST POS 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, PSC RAL DISC DEGEN LUMBAR REGION R350 FREQUENCY 03-27-2017 [facility] MICTURITION [facility] P R3915 URGENCY OF 03-27-2017 [facility] P R200 ANESTHESIA 03-25-2017 [place] OF SKIN MEDICAL IMAGING ASS R42 DIZZINESS 03-25-2017 [facility] D709 NEUTROPENIA 03-24-2017 [facility] P [id number] ADVERSE EFF 03-22-2017 [facility] PHYSICIANS, GLUCOCORTIC PLLC DS SYNTH ANALOG INIT ENC [id number] ADVERS EFF 03-22-2017 [facility] OTH RX MEDS [facility] BIO INC SUBSTANCES INIT ENC G04547 OTHER 03-21-2017 [facility] SPONDYLOSIS [facility] LUMBAR INC REGION M5116 INTERVERTEB 03-21-2017 [facility] RAL DISC [facility] D/O INC W/RADICULOP ATHY LUMB RGN J16970 ENCOUNTER 03-19-2017 [facility], MANAGER DIVISION EXAM LLC GENERAL RTN W/ABNORMAL FIND D80563 ENCOUNTER 03-19-2017 [facility] MANAGER DIVISION EXAM PHYSICIANS GENERAL RTN GROUP W/O ABNORMAL FIND H6982 OTHER SPEC 03-13-2017 [facility] DISORDERS PHYSICIANS EUSTACHIAN GROUP TUBE LT EAR 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[facility] UNI LT EAR PHYSICIANS UNRESTIRCT GROUP CONTRALAT SIDE R300 DYSURIA 03-12-2017 [facility] SHERIFF, PLLC M4726 OTH 03-03-2017 [facility] SPONDYLOSIS [facility] INC W/RADICULOP ATHY LUMBAR REGION N390 URINARY 03-03-2017 [facility] TRACT [facility] INFECTION INC SITE NOT SPECIFIED R911 SOLITARY 02-27-2017 [place] PULMONARY MEDICAL NODULE IMAGING ASS Z09 ENC F/U 02-27-2017 [place] EXAM AFTR MEDICAL CMPL TX OTH IMAGING ASS THAN MALIG NEOPLSM E669 OBESITY 02-25-2017 [facility] UNSPECIFIED PHYSICIANS GROUP I119 HYPERTENSIV 02-25-2017 [facility] E HEART PHYSICIANS DISEASE GROUP WITHOUT HEART FAILURE R0600 DYSPNEA 02-25-2017 [facility] UNSPECIFIED PHYSICIANS GROUP J310 CHRONIC 02-17-2017 [facility] RHINITIS PHYSICIANS GROUP J329 CHRONIC 02-17-2017 [facility] SINUSITIS PHYSICIANS UNSPECIFIED GROUP J342 DEVIATED 02-17-2017 [facility] NASAL PHYSICIANS SEPTUM GROUP M5416 RADICULOPAT 02-17-2017 [facility] HY LUMBAR [facility] REGION INC M545 LOW BACK 02-17-2017 YVETTE JURADO, PAIN , PSC I998 OTHER 02-11-2017 [facility] DISORDER OF [facility] INC CIRCULATORY SYSTEM R0602 SHORTNESS 02-11-2017 [place] OF BREATH [facility] INC G8929 OTHER 02-10-2017 [facility] CHRONIC VALLEY PAIN INTERNAL MED L65728 PAIN IN 02-10-2017 [facility] LEFT VALLEY SHOULDER INTERNAL MED M5440 LUMBAGO 02-10-2017 [facility] WITH VALLEY SCIATICA INTERNAL UNSPECIFIED MED SIDE R5383 OTHER 01-31-2017 [facility] FATIGUE PHYSICIANS GROUP M792 NEURALGIA 01-27-2017 [facility] AND VALLEY NEURITIS INTERNAL UNSPECIFIED MED I10 ESSENTIAL 01-26-2017 [facility] PRIMARY [facility] HYPERTENSIO INC N M542 CERVICALGIA 01-26-2017 [facility] INC C67423 SPONDYLOSIS 01-22-2017 [place] W/O MEDICAL MYELOPATH/R IMAGING ASS ADICULOPATH Y CERV RGN I919MKA STRAIN 01-22-2017 [facility] MUSCLE FASC PHYSICIANS, & TENDON PLLC NECK LEVL INIT ENC G88450E STRAIN 01-16-2017 [facility] MUSCLE & PHYSICIANS, TENDON UNS PLLC WALL THORAX INIT ENC Z882 ALLERGY 01-11-2017 [place] [facility] S STATUS Z886 ALLERGY 01-11-2017 [place] [facility] ANAL[facility]ESIC [facility]OSPITAL AGENT STATUS Z888 ALLERGY 01-11-2017 [place] STATUS OTH [facility] BIOLOG SUBSTAN STS H9203 OTALGIA 01-10-2017 [place] BILATERAL [facility] INC I209 ANGINA 01-10-2017 [facility] PECTORIS [facility] UNSPECIFIED INC R071 CHEST PAIN 01-07-2017 [facility] ON [place]LEY BREATHING INTERNAL MED Z720 TOBACCO USE 01-04-2017 [facility] INC C12912 MUSCLE 12-25-2016 [place] SPASM OF [facility] BACK INC R1013 EPIGASTRIC 12-25-2016 [facility] PAIN [facility] INTERNAL MED R4702 DYSPHASIA 12-25-2016 [facility] INTERNAL MED B078 OTHER VIRAL 12-23-2016 [facility] WARTS K30 FUNCTIONAL 12-23-2016 [facility] L218 OTHER 12-23-2016 [facility] SEBORRHEIC DERMATITIS L538 OTHER 12-23-2016 [facility] SPECIFIED ERYTHEMATOU S CONDITIONS R208 OTHER 12-23-2016 [facility] DISTURBANCE S OF SKIN SENSATION R238 OTHER SKIN 12-23-2016 [facility] CHANGES K5903 DRUG 12-17-2016 [facility] INDUCED [facility] CONSTIPATIO INC N [id number] ADVERSE 12-17-2016 [facility] EFFECT [facility] OTHER INC OPIOIDS INITIAL ENCOUNTER K910 VOMITING 12-12-2016 [facility] FOLLOWING [facility] GASTROINTES INC TINAL SURGERY R600 LOCALIZED 12-12-2016 [facility] EDEMA PHYSICIANS, PLLC R609 EDEMA 12-12-2016 [place] UNSPECIFIED [facility] INC J61678 OTHER 12-12-2016 [place] SPECIFIED MEDICAL POSTPROCEDU IMAGING ASS [facility] STATES N393 STRESS 12-11-2016 [facility] INCONTINENC HEALTH E FEMALE MONALISA MALE Z903 ACQUIRED 12-11-2016 [facility] ABSENCE OF HEALTH STOMACH MONALISA J32204 ENCOUNTER 12-05-2016 [facility] FOR OTHER HEALTH PREPROCEDUR MEDICAL AL GROUP EXAMINATION K210 GASTRO-ESOP 11-22-2016 [facility] HAGEAL PHYSICIANS, REFLUX [facility] DISEASE W/ ESOPHAGITIS K625 HEMORRHAGE 11-19-2016 [facility] OF ANUS AND [facility] RECTUM INTERNAL MED M546 PAIN IN 11-08-2016 [facility] THORACIC PHYSICIANS, SPINE [facility] Y90842 PAIN IN 10-14-2016 [place] UNSPECIFIED MEDICAL HIP IMAGING ASS M533 SACROCOCCYG 10-14-2016 [place] EAL MEDICAL DISORDERS IMAGING ASS NEC G989FUT CONTUSION 10-14-2016 [facility] LOWER BACK PHYSICIANS, & PELVIS [facility] INITIAL ENCOUNTER O3292KT UNSPECIFIED 10-14-2016 [place] INJURY MEDICAL LOWER BACK IMAGING ASS INITIAL ENCOUNTER U1991OY UNSPECIFIED 10-14-2016 [place] INJURY OF MEDICAL PELVIS IMAGING ASS INITIAL ENCOUNTER H3581 RETINAL 10-11-2016 [facility] ANG EDEMA R040 EPISTAXIS 10-10-2016 [facility] VALLEY INTERNAL MED E6609 OTHER 10-08-2016 [facility] OBESITY DUE BARIATRIC TO EXCESS SURGICAL CALORIES J3489 OTHER 10-06-2016 [facility] SPECIFIED PHYSICIANS, DISORDERS [facility] NOSE AND NASAL SINUSES R05 COUGH 10-06-2016 [place] MEDICAL IM[facility]ING ASS A6004 HERPESVIRAL 09-27-2016 [facility] PHYSICIANS VULVOVAGINI GROUP TIS N760 ACUTE 09-27-2016 [facility] VAGINITIS PHYSICIANS GROUP [id number] CONCUSSION 09-21-2016 [place] WITHOUT LOC [facility] INITIAL INC ENCOUNTER [id number] UNSPECIFIED 09-21-2016 [place] INJURY OF MEDICAL HEAD IMAGING ASS INITIAL ENCOUNTER H6903 PATULOUS 09-19-2016 ISS[facility] JARON EUSTACHIAN TUBE BILATERAL S78281 UNSPECIFIED 09-18-2016 [facility] PHYSICIANS OBSTRUCTION GROUP EUSTACHIAN TUBE BILAT R590 LOCALIZED 09-04-2016 [facility] L[facility]MPH [facility] P Z6834 BODY MASS 09-04-2016 [facility] INDEX BMI HEALTH 34.0-34.9 MEDICAL ADULT GROUP K5909 OTHER 09-03-2016 [facility] CONST[facility]ATIO GROUND N FAMILY CLINI R112 NAUSEA WITH 09-03-2016 [facility] VOMITING GROUND UNSPECIFIED FAMILY CLINI Z111 ENCOUNTER 09-02-2016 [facility] DEPT RESPIRATORY JAZZ TUBERCULOSI S M549 DORSALGIA 09-01-2016 [facility] UNSPECIFIED PHYSICIANS, PLLC R197 DIARRHEA 09-01-2016 [facility] UNSPECIFIED PHYSICIANS, PLL H47946Q ADVERSE 09-01-2016 [facility] P SRI INITIAL ENCOUNTER H94609 UNS PLACE 09-01-[address] [facility] P [address] OF OCCUR EXT R195 OTHER FECAL 08-30-2016 [facility] ABNORMALITI INC ES Z202 CONTACT 08-30-2016 WITH DISTRICT EXPOSURE HLTH DEPT INFECT JAZZ SEXUAL MODE TRANSMS R5381 OTHER 08-29-2016 [facility] MALAISE PHYSICIANS GROUP R9431 ABNORMAL 08-29-2016 [facility] ELECTROCARD PHYSICIANS IOGRAM GROUP D43305 LYMPHOCYTOP 08-21-2016 [facility] ENIA [facility] INC J4520 MILD 08-21-2016 [facility] INTERMITTEN PARTNERS OF T ASTHMA [place] UNCOMPLICAT ED A117CXM OTHER 08-21-2016 [facility] ADVERSE PARTNERS OF FOOD [place] REACTIONS NEC SUBSEQUENT ENC M791 MYALGIA 08-17-2016 [facility] PHYSICIANS, [facility] M898X9 OTHER 08-12-2016 [place] SPECIFIED MEDICAL DISORDERS IMAGING ASS BONE UNSPECIFIED SITE R599 ENLARGED 08-12-2016 [facility] LYMPH NODES [facility] INC UNSPECIFIED R1314 DYSPHAGIA 08-10-2016 [facility] PHARYNGOESO PHYSICIANS, PHAGEAL PLL PHASE R5382 CHRONIC 08-07-2016 [facility] FATIGUE [facility] UNSPECIFIED INC R591 GENERALIZED 08-05-2016 [facility] P I208 OTHER FORMS 08-02-2016 [facility] P X40524 PAIN IN 08-02-2016 [place] RIGHT KNEE MEDICAL IMAGING ASS R55 SYNCOPE AND 08-02-2016 [facility] COLLAPSE PHYSICIANS, [facility] Q772SNL UNSPECIFIED 08-02-2016 [place] INJURY OF MEDICAL NECK IMAGING ASS INITIAL ENCOUNTER K0269AK UNS INJURY 08-02-2016 [place] RT LOWER MEDICAL LEG INITIAL IMAGING ASS ENCOUNTER N281 CYST OF 08-01-2016 [facility] P R209 UNSPECIFIED 07-29-2016 [facility] PHYSICIANS, DISTURBANCE PLLC S OF SKIN SENSATION K589 IRRITABLE 07-24-2016 [facility] BOWEL PHYSICIANS SYNDROME GROUP WITHOUT DIARRHEA R102 PELVIC AND 07-24-2016 [facility] PERINEAL PHYSICIANS PAIN GROUP N831 CORPUS 07-22-2016 [facility] LUTEUM CYST PHYSICIANS GROUP N920 EXCESS & 07-22-2016 [facility] FREQUENT PHYSICIANS MENSTRUATIO GROUP N W/REGULAR CYCLE Z67777D STRAIN UNS 07-22-2016 [facility] MUSCLE FASC PHYSICIANS, TEND THIGH PLLC RT INITIAL ENC Z7251 HIGH RISK 07-22-2016 [facility] R12 HEARTBURN 07-18-2016 [facility] HOSPITA H938X9 OTHER 07-17-2016 [facility] SPECIFIED PHYSICIANS DISORDERS GROUP OF EAR UNSPECIFIED EAR J302 OTHER 07-17-2016 [facility] SEASONAL PHYSICIANS ALLERGIC GROUP RHINITIS M8604CU LACERATION 07-13-2016 [facility] W/O FOREIGN PHYSICIANS, BODY SCALP PLLC INITIAL ENC R6889 OTHER 07-10-2016 [facility] SYMPTOMS HOSPITA AND SIGNS E780 PURE 07-09-2016 [facility] HYPERCHOLES BARIATRIC TEROLEMIA SURGICAL E876 HYPOKALEMIA 07-09-2016 [facility] P H6990 UNSPECIFIED 07-07-2016 [facility] EUSTACHIAN [...] 06-26-2016 [facility] PAIN PHYS I47177 RIGHT LOWER 06-26-2016 [facility] TENDERNESS N200 CALCULUS OF 06-24-2016 [place] KIDNEY MEDICAL IMAGING ASS M5386 OTHER 06-11-2016 [...] NONIONIZING RAD R9439 ABNORMAL 04-08-2016 [facility] RESULT OT HEALTH CARDIOVASCU MEDICAL LR FUNCTION [...] VALLEY IES NOT INTERNAL ELSEWHERE MED CLASSIFIED 29720 UNSPECIFIED 07-11-2015 [facility] VIRAL WARTS 2167 [...] SKIN 7020 ACTINIC 07-11-2015 [facility] KERATOSIS 56070 INFLAMED 07-11-2015 [facility] SEBORRHEIC KERATOSIS V700 ROUTINE 06-27-2015 [facility] DEPT EXAM@[facility] FACL 15163 MORBID 06-20-2015 [facility] OBESITY BARIATRIC SURGICAL 54908 PAIN IN 06-20-2015 [facility]INT, SITE [facility] UNSPECIFIED 7823 EDEMA 06-20-2015 [facility] 71233 OTHER 06-20-2015 [facility] DYSPNEA AND [facility] RESPIRATORY ABNORMALITI ES 7871 HEARTBURN 07-28-2015 [facility] 7904 NONSPEC 06-20-2015 [facility] ELEVATION BARIATRIC OF LEVELS SURGICAL OF TRANSAMINAS E/LDH V4586 BARIATRIC 06-20-2015 [facility] SURGERY BARIATRIC STATUS SURGICAL V7612 OTHER 06-19-2015 [place] SCREENING MEDICAL MAMMOGRAM IMAGING ASS 2564 POLYCYSTIC 06-12-2015 [facility] OVARIES [facility] INTERNAL MED 2689 UNSPECIFIED 06-12-2015 [facility] VITAMIN D [facility] DEFICIENCY INTERNAL MED 5718 OTHER 06-12-2015 [facility] CHRONIC VALLEY NONALCOHOLI INTERNAL C LIVER MED DISEASE 7905 OTHER 06-12-2015 [facility] NONSPECIFIC [facility] ABNORMAL INTERNAL SERUM MED ENZYME LEVELS 57061 UNSPEC 05-09-2015 [facility] DISORDERS PHYSICIANS BURSAE&TEND GROUP ONS SHOULDER REGION 7262 OTHER 05-09-2015 [facility] AFFECTIONS PHYSICIANS OF SHOULDER GROUP REGION NEC 70893 OBESITY, 05-04-2015 [facility] UNSPECIFIED OLOGY AND HEPATOL 3674 PRESBYOPIA 04-28-2015 [place] 42142 CHEST PAIN 04-28-2015 [facility] 60830 ABDOMINAL 04-25-2015 [place] PAIN, COMMUNTIY UNSPECIFIED HOSPITA SITE 4019 UNSPECIFIED 04-16-2015 [facility] HYPERTENSIO INC N 5990 URINARY 04-16-2015 [facility], INFECTION [facility] SITE NOT SPECIFIED 7948 NONSPECIFIC 04-16-2015 [facility] RESULTS INC LIVR FUNCTION STUDY 5739 UNSPECIFIED 04-14-2015 [facility] [place] DISORDER RADIOLOGY OF LIVER 7906 OTHER 04-14-2015 [facility] ABNORMAL COMMUNTIY BLOOD HOSPITA CHEMISTRY 5939 UNSPECIFIED 04-06-2015 [place] [facility]ORDER MEDICAL OF KIDNEY IMAGING ASS AND URETER 7891 HEPATOMEGAL 04-06-2015 [facility] Y OLOGY AND HEPATOL V140 PERSONAL 04-05-[address] [place] [address] [facility] ALLERGY TO HOSPITAL P [place] 56531 ABDOMINAL 04-03-2015 [facility] PAIN, GENERALIZED 5758 OTHER 04-01-[address] [place] [address] [facility] DISORDER OF HOSPITAL P GALLBLADDER 75082 OTHER 04-01-2015 [place] SPECIFIED MEDICAL DISORDER OF IMAGING ASS KIDNEY AND URETER 88275 ABDOMINAL 04-01-2015 [place] PAIN RIGHT MEDICAL UPPER IMAGING ASS QUADRANT 20282 ABDOMINAL 04-01-2015 [place] PA[address], [facility] EPIGASTRIC HOSPITAL P 7295 PAIN IN 03-29-2015 [place] SOFT COMMUNTIY TISSUES OF HOSPITA LIMB V4589 OTHER 03-29-2015 [place] POSTSURGICA COMMUNTIY L STATUS HOSPITA OTHER 84559 OTHER 03-24-2015 [place] MALAISE AND COMMUNTIY FATIGUE HOSPITA V6700 FOLLOW-UP 03-21-2015 [facility] [place] EXAMINATION RADIOLOGY FOLLOWING UNSPEC SURGERY 71419 ESOPHAGEAL 03-20-2015 [place] REFLUX ANESTHESIA GROUP PS 6256 FEMALE 03-20-2015 [place] STRESS COMMUNTIY INCONTINENC HOSPITA E 31882 PAIN IN 03-20-2015 [facility] JOINT, BARIATRIC MULTIPLE SURGICAL SITES 64506 DIASTASIS 03-20-2015 [place] OF MUSCLE COMMUNTIY HOSPITA 7892 SPLENOMEGAL 03-20-2015 [facility] Y COMMUNTIY HOSPITA V8543 BODY MASS 03-20-2015 [place] INDEX COMMUNTIY 50.0-59.9 HOSPITA ADULT 2639 UNSPECIFIED 03-14-2015 [place] COMMUNTIY PROTEIN-TEA HOSPITA [place]TRITIO N 03673 MIGRAINE 03-07-2015 [facility] UNSP W/O BARIATRIC 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 MIGRAINOSUS 98371 OTHER 03-07-2015 [facility] URINARY BARIATRIC INCONTINENC SURGICAL E 6929 CONTACT 03-06-2015 [facility] DERMATITIS& OTHER [place] DUE UNSPEC CAUSE 6822 CELLULITIS 03-02-2015 [facility] P V148 PERSONAL 03-02-2015 [facility] ALL[facility]GY [facility] P SPEC MEDICINAL AGTS V571 OTHER 02-22-2015 [facility] THERAPY INC 2724 OTHER AND 02-20-2015 [place] UNSPECIFIED COMMUNTIY HOSPITA HYPERLIPIDE LILIANE 7245 UNSPECIFIED 02-20-2015 [facility] BACKACHE COMMUNTIY HOSPITA V7283 OTHER 02-20-2015 [place] SPECIFIED COMMUNTIY PRE-OPERATI HOSPITA VE EXAMINATION 2875 UNSPECIFIED 02-15-2015 [facility] P PENIA 7932 NONSPC ABN 02-10-2015 [place] [facility] RAD[facility]OTH [facility] EXAM OTH INTRTHOR ORGN V7282 PRE-OPERATI 02-10-2015 [place] [facility] RESPIRATORY [facility]ATION EXAMINATION 5930 NEPHROPTOSI 02-09-2015 [facility] P 7802 SYNCOPE AND 02-01-2015 [facility] G 4139 OTHER AND 01-18-2015 [place] UNSPECIFIED [facility] P PECTORIS 70505 SHORTNESS 01-18-2015 [place] OF [facility] 75502 OTHER CHEST 01-18-2015 [place] [facility] P 10234 OSTEOARTHRO 12-30-2014 DANIEL NGO S INVLV MX SITES BUT [place] SPEC GEN 46049 PAIN IN 11-09-2014 [place] JOINT, MEDICAL SHOULDER IMAGING ASS REGION V5832 ENCOUNTER 11-09-2014 [place] FOR REMOVAL [facility] P 07750 PILAR CYST 11-02-2014 [facility] 89789 UNSPECIFIED 10-06-2014 [facility] INFECTION PHYS IN CCE & UNS SITE 7840 HEADACHE 10-06-2014 [place] [facility] 75357 ATROPHIC 09-16-2014 [place] [facility] WITHOUT HOSPITA MENTION OF HEMORRHAGE 15908 OTHER SPEC 09-16-2014 [facility] WITHOUT MENTION HEMORRHAGE 46777 DYSPHAGIA 09-16-2014 [place] UNSPECIFIED ANESTHESIA GROUP PS 6869 UNSPEC 08-17-2014 [facility] LOCAL INFECTION SKIN&SUBCUT ANEOUS TISSUE V7284 UNSPECIFIED 08-09-2014 [place] [facility] PRE-OPERATI INC VE EXAMINATION 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 7019 UNSPECIFIED 08-04-2014 [facility] HYPERTROPHI C&ATROPHIC CONDITION SKIN 30071 OTHER 08-04-2014 [facility] SEBORRHEIC KERATOSIS 7851 PALPITATION 08-04-2014 [facility] G V7281 PRE-OPERATI 07-21-2014 [facility] CARDIOVASCU MEDICAL G LAR EXAMINATION 14618 PAINFUL 07-05-2014 [facility] RESPIRATION V771 SCREENING 05-24-2014 [facility] DIABETES MELLITUS 470 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 4779 ALLERGIC 03-17-2014 [facility] RHINITIS CAUSE UNSPECIFIED 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 E849.8 E849.8 12-31-2013 [place] ACCIDENT IN [facility] E885.9 E885.9 FALL 12-31-2013 [place] FROM [facility] SLIPPING, Hospital TRIPPING, OR STUMBLING [facility] V14.0 V14.0 12-31-2013 [place] HX-PENICILL [facility] IN ALLERGY Hospital V14.1 V14.1 12-31-2013 [place] HX-ANTIBIOT [facility] ALLERGY Hospital NEC V01.6 V01.6 01-11-2013 [place] VENEREAL [facility] DIS CONTACT Hospital V0481 NEED 01-06-2009 DHS/CO PROPHYLACTI HEALTH C CENTRAL VACCINATION BANK ACCT &INOCULATIO N FLU 93268 PAIN IN 01-04-2009 [place] [facility]INT [facility] PELVIC [facility] ASSOC[facility] THIGH 12014 DISPLCMT 01-04-2009 [place] LUMBAR MEDICAL INTERVERT 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 8460 SPRAIN AND 01-04-2009 [facility] LUMBOSACRAL [facility] 8472 LUMBAR 01-04-2009 [facility] STRAIN INC 59793 CONTUSION 01-04-2009 [employer] BACK [employer] 72832 CONTUSION 01-04-2009 [employer] BUTTOCK [employer] E8490 PLACE OF 01-04-2009 [place] OCCURRENCE, MEDICAL HOME IMAGING ASSOCIATES E8859 FALL FROM 01-04-2009 [place] OTHER MEDICAL SLIPPING IMAGING TRIPPING OR ASSOCIATES [...] 48 -1 -0 .0 00 IN ti NV 70 1- 6- 00 00 IC ve [...] 20 ZA 70 09 09 PH NV UT 6 AR CH IN MA AE [...] Hgb A1c Bld (12-05-2016 11:40) Comment: The [place] [employer] recommends maintenance of Hemoglobin A1C [...] Procedure DOS Code Location Performer Comment LIPID 56697 [place] PANEL 7 [facility] INC INC IIV4 VACC 20821 [place] ARSLAN SPLIT 7 [facility] VIRUS 0.5 INTERNAL ML DOS MED FOR IM USE BLOOD 34512 [place] COUNT 7 [facility] COMPLETE INC INC AUTO&AUTO DIFRNTL WBC COMPREHEN 23737 [place] SIVE 7 [facility] METABOLIC INC INC PANEL COLLECTIO 86701 [place] N VENOUS 7 [facility] BLOOD INC INC VENIPUNCT URE 25 87440 [place] HYDROXY 7 [facility] INCLUDES INC INC FRACTIONS IF PERFORMED IM ADM 45619 [place] ARSLAN PRQ ID 7 VALLEY SUBQ/IM INTERNAL NJXS 1 MED VACCINE THERAPEUT 78234 [place] IC 7 MEM [facility] PROPHYLAC INC INC TIC/DX INJECTION SUBQ/[place] [address] [place] HEAD/BRAI 7 [facility] N W/O INC INC CONTRAST MATERIAL UNCLASSIF J3490 [place] IED DRUGS 7 [facility] INC INC GROUND [facility]25 [facility] AM[facility]ULANCE PER SERVICE SERVICE STATUTE MILE AMBULANCE A[address] [facility] SERVICE 7 AMBULANCE AMBULANCE BLS [place] [address] [place] MAXILLOFA 7 MEM [facility] CIAL W/O INC INC CONTRAST MATERIAL SCREENING 24380 [place] 7 [facility] MAMMOGRAP INC INC HY BI 2-VIEW BREAST INC CAD SCREENING G0202 [place] [facility] 7 MEDICAL MAMMOGRAP IMAGING HY WILBERT ASS INCL CAD WHEN PERFORMD NERVE 28605 [employer] CONDUCTIO 7 N N STUDIES NEUROLOGY 9-10 STUDIES NEEDLE 05502 [employer] EMG EA 7 N EXTREMTY NEUROLOGY W/PARASPI NL AREA COMPLETE NEEDLE 50816 [employer] EMG EA 7 N EXTREMTY NEUROLOGY W/PARASPI NL AREA COMPLETE NERVE 71302 [employer] CONDUCTIO 7 N N STUDIES NEUROLOGY 9-10 STUDIES OPHTH 86885 C-n[facility] MEDICAL 7 XM&EVAL COMPRHNSV ESTAB PT 1/> ESOPHAGEA 61046 [facility] MORAVIAN L 7 [facility] MOTILITY [facility] STUDY W/INTERP& [place] [address] [facility] ABDOMEN & 7 MEDICAL PELVIS IMAGING W/[place] [address] [place] LIPASE 7 [facility] [place] [address] [place] AMYLASE 7 [facility] INC INC COMPREHEN 00381 [place] SIVE 7 [facility] METABOLIC INC INC PANEL UNCLASSIF J3490 [place] IED DRUGS 7 [facility] INC INC URINE 69747 [place] 7 [facility] TEST INC INC VISUAL COLOR CMPRSN METHS URNLS DIP 18861 [place] 7 [facility] STICK/TAB INC INC LET REAGENT AUTO MICROSCOP Y BLOOD 56493 [place] HARE COUNT 7 [facility] COMPLETE INC AUTO&AUTO DIFRNTL WBC SPMTRY 23062 [facility] W/VC 7 [facility] [place] Y ABHI CO W/WO MXML VOL VNTJ NITRIC 03367 [facility] OXIDE 7 [facility] [place] GAS CO DETERMINA TION SPACR A4627 MT MED MT MED BAG/RESRV 7 EQUIPMENT EQUIPMENT OR W/WO INC INC MASK W/METRD DOSE INHAL DEMO&/VIPUL 60628 [facility] L OF PT 7 [facility] [place] AERSL CO GEN/NEB/I NHLR/IP XTRNL ECG 47038 [place] MATUTE 7 [facility] S RHYTHM P W/I&R UP TO 48 HRS EXTERNAL 05646 [place] ECG 7 [facility] SCANNING INC INC ANALYSIS REPORT RADIOLOGI 64330 [place] HARLEEN C 7 MEDICAL EXAMINATI IMAGING ON KNEE 3 ASS VIEWS XTRNL ECG 39207 [place] & 48 HR 7 [facility] H[facility] RECORDING INC INC ECG 28908 [place] ROUTINE 7 [facility] W/LEAST P 12 LDS I&[place] [address] [place] TROPONIN 7 MEM [facility] QUANTITAT INC INC SABIHA CREATINE 24515 [place] KINASE MB 7 [facility] FRACTION INC INC ONLY COMPREHEN 44362 [place] SIVE 7 [facility] METABOLIC INC INC PANEL ECG 71176 [place] ROUTINE 7 [facility] ECG INC INC W/LEAST 12 LDS TRCG ONLY W/O I&R CREATINE 87833 [place] KINASE 7 [facility] TOTAL INC INC ANES 77744 [facility] UPPER GI 7 [place] ENDOSCOPY ANESTHESI PROXIMAL A TO DUODENUM EGD 49152 [facility] SANCHEZ TRANSORAL 7 HEALTH BIOPSY MEDICAL SINGLE/MU GROUP LTIPLE ECG 03353 MONAL[facility] CAONER ROUTINE 7 HEART ECG SPECIALIS W/LEAST TS, 12 LDS I&R ONLY ECG 60623 [facility] 7 PHYSICIAN ECG S, PLLC W/LEAST 12 LDS I&[place] [address] [place] TROPONIN 7 [facility] QUANTITAT INC INC SABIHA ECG 20958 [place] ROUTINE 7 [facility] ECG INC INC W/LEAST 12 LDS TRCG ONLY W/O I&R COMPREHEN 70207 [place] SIVE 7 [facility] METABOLIC INC INC PANEL ECG 53180 M[facility]IAN MORAVIAN ROUTINE 7 [facility] ECG [facility] W/LEAST 12 LDS TRCG ONLY W/O I&R COLLECTIO 43501 [facility] MORAVIAN N VENOUS 7 [facility] BLOOD [facility] VENIPUNCT URE COLPOSCOP 59088 [facility] Y CERVIX 7 PHYSICIAN BX CERVIX S GROUP & [place] [address] [facility], PICKLESIM SURG 7 [facility] ER JR PATHOLOGY GROSS&[place] [address] MOR[facility]IAN MORAVIAN TRACT 7 [facility] UPPER [facility] W/WO DELAYED IMAGES W/KUB UNCLASSIF J3490 [place] IED DRUGS 7 [place] [address] [facility] HEAD/BRAI 7 MEDICAL MEDICAL N W/O IMAGING IMAGING CONTRAST ASS ASS MATERIAL LIPID 59223 [place] PANEL 7 [facility] INC INC BLOOD 46631 [place] COUNT 7 [facility] COMPLETE INC INC AUTO&[place] [address] [place] GAMMAGLOB 7 [facility] ULIN IGA INC INC IGD IGG IGM EACH GONADOTRO 29150 [place] PIN 7 [facility] FOLLICLE INC INC STIMULATI NG HORMONE COMPREHEN 27101 [place] SIVE 7 [facility] METABOLIC INC INC PANEL COLLECTIO 65019 [place] N VENOUS 7 [facility] BLOOD INC INC VENIPUNCT URE GONADOTRO 81145 [place] PIN 7 [facility] LUTEINIZI INC INC NG HORMONE COMPREHEN 62904 [place] SIVE 7 [facility] METABOLIC INC INC PANEL URNLS DIP 45235 [place] 7 [facility] STICK/TAB INC [place] [address] [place] INFUSION 7 [facility] THERAPY/P INC INC ROPHYLAXI S /DX 1ST TO 1 HR BLOOD 24428 [place] COUNT 7 [facility] COMPLETE INC INC AUTO&AUTO DIFRNTL WBC UNCLASSIF J3490 [place] IED DRUGS 7 [place] [address] [place] INFUSION 7 [facility] THERAPY INC INC PROPHYLAX IS/DX EA HOUR UNCLASSIF J3490 [place] IED DRUGS 7 [facility] [place]X [address] YVETTE BUX DX/THER 7 MD RHIANNON, SBST PSC INTRLMNR LMBR/SAC W/IMG GDN IADNA 81435 [facility], TOD HUMAN 7 LLC PAPILLOMA VIRUS HIGH-RISK TYPES URNLS DIP 70383 [facility] HU[facility] 7 PHYSICIAN STICK/TAB S GROUP LET RGNT NON-AUTO W/O MICRSCP CYTP 54203 [facility], TOD CERVICAL/ 7 LLC VAGINAL REQ INTERP PHYSICIAN CYTP C/V 14704 [facility], [facility] AUTO THIN 7 LLC LYR PREPJ SCR MNL RESCR PHYS ECG 59831 [place] ROUTINE 7 [facility] ECG INC INC W/LEAST 12 LDS TRCG ONLY W/O I&R COLLECTIO 55646 [place] N VENOUS 7 [facility] BLOOD INC INC VENIPUNCT URE PROTEIN 85065 [place] ELECTROPH 7 [facility] ORETIC INC INC FRACTJ&QU ANTJ SERUM ANTINUCLE 46016 [place] AR 7 [facility] ANTIBODIE INC INC S SANNA COMPREHEN 80760 [place] SIVE 7 [facility] METABOLIC INC INC PANEL BLOOD 32800 [place] COUNT 7 [facility] COMPLETE INC INC AUTO&AUTO DIFRNTL WBC URNLS DIP 90916 [place] 7 [facility] STICK/TAB INC INC LET RGNT AUTO W/O MICROSCOP Y CREATININ 26600 [place] E BLOOD 7 [facility] INC INC COLLECTIO 91541 [place] N VENOUS 7 [facility] BLOOD [place] [address] [place] UREA 7 [facility] NITROGEN INC INC QUANTITAT SABIHA UNCLASSIF J3490 [place] IED DRUGS 7 [facility] INC INC CT THORAX 10807 [place] 7 [facility] W/CONTRAS INC INC T MATERIAL ECG 57074 [facility] ROUTINE 7 PHYSICIAN ECG S GROUP W/LEAST 12 LDS I&R ONLY ECG 97234 [place] ROUTINE 7 [facility] ECG INC INC W/LEAST 12 LDS TRCG ONLY W/O I&R NJX 70432 Y[facility]TE DUFF DX/THER 7 MD RHIANNON, AGT PVRT PSC FACET JT LMBR/SAC 3+ [place]EL NJX 84253 [facility] DUFF DX/THER 7 MD RHIANNON, AGT PVRT PSC FACET JT LMBR/SAC 1 LEVEL NJX 00041 [facility] DUFF DX/THER 7 MD RHIANNON, AGT PVRT PSC FACET JT LMBR/SAC 2ND LEVEL COMPREHEN 31726 [place] SIVE 7 [facility] [place] [address] [place] AMYLASE 7 [facility] INC INC CREATINE 66080 [place] KINASE MB 7 [facility] FRACTION INC INC ONLY CREATINE 74691 [place] KINASE 7 [facility] [place] [address] [place] LIPASE 7 [facility] INC INC ECG 03280 [place] ROUTINE 7 [facility] ECG INC INC W/LEAST 12 LDS TRCG ONLY W/O I&R THER 86771 [place] PROPH/DX 7 [facility] NJX IV INC INC PUSH SINGLE/1S T SBST/DRUG RADEX 00559 [place] ABDOMEN 7 [facility] COMPL INC INC W/DCBTS&/ ERC VIEWS ECG 37145 [place] ROUTINE 7 [facility] W/LEAST P 12 LDS I&R ONLY THERAPEUT 81919 [place] IC 7 [facility] INJECTION INC [place] [address] [place] TROPONIN 7 [facility] QUANTITAT INC INC SABIHA BLOOD 90939 [place] COUNT 7 [facility] COMPLETE INC INC AUTO&AUTO DIFRNTL WBC UNCLASSIF J3490 [place] IED DRUGS 7 [facility]OS[facility] INC INC ECG 02822 [facility] ROUTINE 7 PHYSICIAN ECG S GROUP W/LEAST 12 LDS I&R ONLY ECG 39598 [place] ROUTINE 7 [facility] ECG INC INC W/LEAST 12 LDS TRCG ONLY W/O I&R ECG 03996 [facility] ROUTINE 7 PHYSICIAN ECG S GROUP W/LEAST 12 LDS I&R ONLY XTRNL ECG 63547 [place] & 48 HR 7 [facility] HOSP RECORDING INC INC ECG 46986 [facility] ROUTINE 7 PHYSICIAN ECG S, PLLC W/LEAST 12 LDS I&R ONLY BLOOD 54931 [place] COUNT 7 [facility] COMPLETE INC INC AUTO&[place] [address] [place] TROPONIN 7 [facility]OS[facility] QUANTITAT INC INC SABIHA RADIOLOGI 40895 [facility] C EXAM 7 PHYSICIAN CHEST 2 S, PLLC VIEWS FRONTAL&L ATERAL GROUND A0425 [facility] AMBULANCE PER SERVICE SERVICE STATUTE MILE MRI 84463 WENDY ADAMS SPINAL 7 CANAL ORTHOPAED LUMBAR ICS PSC W/O CONTRAST MATERIAL AMB A[address] [facility] SERVICE 7 AMBULANCE AMBULANCE ALS SERVICE SERVICE EMERGENCY TRANSPORT LEVEL 1 ECG 82338 [place] ROUTINE 7 [facility] ECG INC INC W/LEAST 12 LDS TRCG ONLY W/O I&R CREATINE 10199 [place] KINASE 7 [facility] TOTAL INC INC CREATINE 80483 [place] KINASE MB 7 [facility] FRACTION INC INC ONLY COMPREHEN 65289 [place] SIVE 7 [facility] METABOLIC INC INC PANEL RADEX 26597 [facility] SPINE 7 [place] LUMBOSACR ORTHOPAED AL 2/[address] [place] [address] [facility] CERVICAL 7 MEDICAL MEDICAL SPINE W/O IMAGING IMAGING CONTRAST ASS ASS MATERIAL ECG 68117 [place] ROUTINE 7 [facility] ECG INC INC W/LEAST 12 LDS TRCG ONLY W/O I&[place] [address] [facility] HEAD/BRAI 7 MEDICAL N W/O IMAGING CONTRAST ASS MATERIAL ECG 99942 [place] ROUTINE 7 [facility] W/LEAST P 12 LDS I&R ONLY 25 73532 [place] HYDROXY 7 [facility] INCLUDES INC INC FRACTIONS IF PERFORMED COLLECTIO 17682 [place] N VENOUS 7 [facility] BLOOD INC INC VENIPUNCT URE CYANOCOBA 23892 [place] LYUBOV 7 [facility] VITAMIN INC INC B-[address] [place] [address] [place] FOLIC 7 [facility] ACID INC INC SERUM THERAPEUT 65465 [place] IC 7 [facility] PROPHYLAC INC INC TIC/DX INJECTION SUBQ/IM UNCLASSIF J3490 [place] IED DRUGS 7 [facility] INC INC UNCLASSIF J3490 [place] IED DRUGS 7 [facility] INC INC URNLS DIP 38370 [place] 7 [facility] STICK/TAB INC INC LET [place] [address] MORAVIAN MORAVIAN TRACT 7 [facility] W/WO DELAYED IMAGES W/KUB DESTRUCTI 07600 [place] JASSO ON BENIGN 7 LESIONS UP TO 14 RADEX 32501 [facility] SAQIB ABDOMEN 1 7 MEDICAL IMAGING ANTEROPOS ASS TERIOR VIEW COMPREHEN 03244 [place] SIVE 7 [facility] [place] [address] [place] INFUSION 7 [facility] THERAPY/P INC INC ROPHYLAXI S /DX 1ST TO 1 HR BLOOD 75699 [place] COUNT 7 [facility] COMPLETE INC INC AUTO&AUTO DIFRNTL WBC TX PROC G0238 [place] IMPRV 7 [facility] RESP INC INC FUNCT NOT G0237 FCE-FCE 15MIN RAD EXP G9500 [place] CERRAT[facility] INDICES/E 7 MEDICAL XP TM & IMAGING NUMB ASS FLUORO IMAGES DOC RADEX 38164 [place] C[place] ESOPHAGUS 7 MEDICAL IMAGING ASS INJECTION J1100 MORAVIAN MORAVIAN [address] [place] [address] DEXAMETHO [facility] SONE SODIUM PHOSPHATE 1 MG INJECTION J1170 MORAVIAN MORAVIAN [address] [place] [address] HYDROMORP [facility] KURTIS UP TO 4 MG INJECTION J0330 MORAVIAN MORAVIAN [address] [place] [address] SUCCINYLC [facility] HOLINE CHLORIDE UP TO 20 MG INJECTION J2405 MORAVIAN MORAVIAN [address] [place] [address] ONDANSETR [facility] ON HCL PER 1 MG INJECTION J1650 MORAVIAN MORAVIAN [address] [place] [address] ENOXAPARI [facility] N SODIUM 10 MG ANES 67214 [facility] INTRAPERI [address] [place] [address] TONEAL ANESTHESI UPPER A ABDOMEN W/LAPS NOS LAPS RPR 82179 MORAVIAN GARCIA PARAESPHG [address] [place] [address] L HRNA MEDICAL INCL GROUP FUNDPLSTY W/O MESH INJECTION J2704 MORAVIAN MORAVIAN PROPOFOL [address] [place] [address] 10 MG [facility] INJECTION J2710 MORAVIAN MORAVIAN [address] [place] [address] NEOSTIGMI [facility] NE METHYLSUL FATE UP TO 0.5 MG INJECTION J3010 MORAVIAN MORAVIAN FENTANYL [address] [place] [address] CITRATE [facility] 0.1 MG GLUCOSE 74527 MORAVIAN MORAVIAN QUANTITAT 7 [facility]ALTH HEALTH SABIHA BLOOD [facility] XCPT REAGENT STRIP HEMOGLOBI 58051 M[facility] MORAVIAN N 7 [facility] GLYCOSYLA [facility] LANEY A1C ECG 47769 MOR[facility]IAN ANNA ROUTINE 7 [facility] ECG MEDICAL W/LEAST GROUP 12 LDS I&R ONLY BLOOD 05654 MORAVIAN MORAVIAN COUNT 7 [facility] HEALTH COMPLETE [facility] AUTOMATED ECG 40785 MORAVIAN MORAVIAN ROUTINE 7 [facility] ECG [facility] W/LEAST 12 LDS TRCG ONLY W/O I&R COLLECTIO 99976 MORAVIAN MORAVIAN N VENOUS 7 [facility] BLOOD [facility] [place] [address] [place] LIPASE 6 [facility] INC INC ECG 37716 [place] ROUTINE 6 [facility] ECG INC INC W/LEAST 12 LDS TRCG ONLY W/O I&R RADEX 77396 [facility] ABDOMEN 6 MEDICAL MEDICAL COMPL IMAGING IMAGING W/DCBTS&/ [place] [address] [place] AMYLASE 6 [facility] INC INC COMPREHEN 68766 [place] SIVE 6 [facility] METABOLIC INC INC PANEL BLOOD 68160 [place] [facility] COUNT 6 [facility] COMPLETE INC INC AUTO&AUTO DIFRNTL WBC ECG 53584 [place] CHAVE[facility] JR ROUTINE 6 [facility] W/LEAST P 12 LDS I&R ONLY THERAPEUT 34382 [place] [facility] IC 6 [facility] INJECTION INC [place] [address] [place] [facility] INFUSION 6 [facility] THERAPY/P INC INC ROPHYLAXI S /DX 1ST TO 1 HR RADIOLOGI 42882 [facility] C EXAM 6 MEDICAL MEDICAL CHEST 2 IMAGING IMAGING VIEWS ASS ASS FRONTAL&L ATERAL BLOOD 06830 [facility] [facility] OCCULT 6 [facility] PEROXIDAS INTERNAL E ACTV MED QUAL FECES 1 DETER GLUC BLD 33409 [place] [facility] GLUC MNTR 6 [facility] DEV INC [place] [address] SEJ[place] CANSECO HEAD/BRAI 6 MEDICAL N W/O IMAGING CONTRAST ASS MATERIAL THERAPEUT 81686 [place] [facility] IC 6 [facility] PROPHYLAC INC INC TIC/DX INJECTION SUBQ/IM RADEX 32208 [place] SPINE 6 [facility] LUMBOSACR INC INC AL MINIMUM 4 VIEWS RADEX 93306 [place] SACRUM & 6 [facility] COCCYX INC INC MINIMUM 2 VIEWS RADIOLOGI 14150 [place] C 6 [facility] EXAMINATI INC INC ON PELVIS 1/2 VIEWS URINE 27644 [place] [facility] 6 [facility] TEST INC INC VISUAL COLOR CMPRSN METHS RADIOLOGI 80087 [facility] CANSECO C EXAM 6 MEDICAL ADRIANNA CHEST 2 IMAGING VIEWS ASS FRONTAL&L ATERAL RADEX 24618 [place] SINUSES 6 [facility] PARANASAL INC INC COMPL MINIMUM 3 VIEWS BLOOD 90945 [place] COUNT 6 [facility] COMPLETE INC INC AUTO&AUTO DIFRNTL WBC CUL BACT 74442 [place] XCPT 6 [facility] URINE INC INC BLOOD/[place] [address] [place] STREPTOCO 6 [facility] CCUS INC INC GROUP A IAADI 13952 [place] ZAVALA INFLUENZA 6 [facility] B VIRUS INC IAADI 23611 [place] INFFLUENZ 6 [facility] [place] [address] [facility], PICKLESIM SURG 6 [facility] PATHOLOGY GROSS&BRYCE ROSCOPIC EXAM DECALCIFI 80653 [facility], PICKLESIM CATION 6 [facility] PROCEDURE ANESTHESI 55776 COMMUNITY FEEBACK A NOSE & 6 ANESTH ACCESSORY OF THE SINUSES BLUE NOS ECG 85733 [place] ROUTINE 6 [facility] ECG INC INC W/LEAST 12 LDS TRCG ONLY W/O I&R ECG 57750 [place] ROUTINE 6 [facility] W/LEAST P 12 LDS I&R ONLY BLOOD 42692 [place] COUNT 6 [facility] COMPLETE INC INC AUTO&AUTO DIFRNTL WBC COLLECTIO 54375 [place] N VENOUS 6 [facility] BLOOD INC INC VENIPUNCT URE COMPREHEN 20759 [place] SIVE 6 [facility] METABOLIC INC INC PANEL ANTIBODY 82081 [place] HERPES 6 [facility] SMPLX INC INC TYPE 1 ANTIBODY 08101 [place] VIRUS NOT 6 [facility] INC INC ELSEWHERE [place] [address] [place] MAXILLOFA 6 [facility] CIAL W/O INC INC CONTRAST MATERIAL URINE 95548 [place] [facility] 6 [facility] TEST INC [place] [address] COURTNEYMago OCONNELLINEKE HEAD/BRAI 6 MEDICAL N W/[place] [address] [place] CERVICAL 6 [facility] SPINE W/O INC INC CONTRAST MATERIAL COMPRE 11692 MAEGAN ISSA AUDIOMETR 6 JARON JARON Y THRESHOLD EVAL SP RECOGNIJ TYMPANOME 84242 MAEGAN ISSA TRY 6 JARON JARON DISTORT 65134 MAEGAN VERAON PRODUCT 6 JARON JARON EVOKED OTOACOUST IC EMISNS LIMITD PULMONARY 68983 [place] NO[place] STRESS 6 MEDICAL TESTING SERV SIMPLE FOUNDATIO N GAS 99018 [place] DILUT/WAS 6 MEDICAL MEDICAL HOUT LUNG SERV SERV VOL W/WO FOUNDATIO FOUNDAT[place] DISTRI[place] N N [place] [address] [place] DIFFUSING 6 MEDICAL CAPACITY SERV FOUNDATIO N ELIG CLIN G8427 STAMPING RODRIGUEZ TRI ATTSTS 6 GROUND DOC M REC FAMILY OBTD CLINI UPD/REV PT MEDS ECG 85294 [place] GIOVANI ROUTINE 6 [facility] W/LEAST P 12 LDS I&R ONLY BLOOD 86348 [place] OCCULT 6 [facility] PEROXIDAS INC INC E ACTV QUAL FECES 1-3 SPEC BLOOD 51961 [place] COUNT 6 [facility] COMPLETE INC INC AUTO&AUTO DIFRNTL WBC IM ADM 30640 [facility] PRQ ID 6 [facility] SUBQ/IM HLTH DEPT HLTH DEPT NJXS EA JAZZ JAZZ VACCINE TDAP 83806 [facility] VACCINE 7 6 [facility] YRS/> IM HLTH DEPT HLTH DEPT JAZZ JAZZ COLLECTIO 22831 [place] N VENOUS 6 [facility] BLOOD INC INC VENIPUNCT URE SYPHILIS 15582 [facility] TEST 6 [facility] DISTRICT NON-TREPO HLTH DEPT HLTH DEPT NEMAL JAZZ JAZZ ANTIBODY QUAL IM ADM 39101 [facility] PRQ ID 6 DISTRICT DISTRICT SUBQ/IM HLTH DEPT HLTH DEPT NJXS 1 JAZZ JAZZ VACCINE SKIN TEST 35845 [facility] 6 [facility] DISTRICT TUBERCULO HLTH DEPT HLTH DEPT SIS JAZZ JAZZ INTRADERM AL XTRNL ECG 46644 [place] MATUTE 6 [facility] S RHYTHM P W/I&R UP TO 48 HRS PROF SVCS 66457 [facility] [place] MAR ALLG 6 [facility] IMMNTX X OF [place] W/PRV CO ALLGIC XTRCS NJXS RHEUMATOI 63570 [place] D FACTOR 6 [facility] QUANTITAT INC INC SABIHA ANTINUCLE 81912 [place] AR 6 [facility] ANTIBODIE INC INC S SANNA BLOOD 93337 [place] COUNT 6 [facility] RETICULOC INC INC YTE AUTOMATED BLOOD 92330 [place] COUNT 6 [facility] COMPLETE INC INC AUTO&AUTO DIFRNTL WBC SPMTRY 59846 ALLERGY [place] MAR W/VC 6 [facility]ERS EXPIRATOR OF [place] Y ABHI CO W/WO MXML VOL VNTJ ECG 09203 [place] MATUTE ROUTINE 6 [facility] W/LEAST P 12 LDS I&R ONLY NITRIC 88405 ALLERGY [place] MAR OXIDE 6 [facility] [place] GAS CO DETERMINA TION AMBULANCE A0429 STACY COTE SERVICE 6 AMBULANCE PATY BLS SERVICE EMERGENCY TRANSPORT GROUND A0425 STACY COTE MILEAGE 6 AMBULANCE PATY PER SERVICE STATUTE MILE SEDIMENTA 30412 [place] TION RATE 6 [facility] RBC INC INC NON-AUTOM ATED SEDIMENTA 97228 [place] TION RATE 6 [facility] RBC INC INC NON-AUTOM ATED BONE 95536 [place] &/JOINT 6 [facility] IMAGING INC INC WHOLE BODY BASIC 95777 [place] METABOLIC 6 [facility] PANEL INC INC CALCIUM TOTAL BLOOD 65793 [place] COUNT 6 [facility] COMPLETE INC INC AUTO&AUTO DIFRNTL WBC BLOOD 77394 [place] AIVLA COUNT 6 [facility] RETICULOC INC INC YTE AUTOMATED TECHNETIU A9503 [place] Monten[place] TC-99M 6 [facility] MEDRONATE INC INC DX UP TO 30 MCI COLLECTIO 59221 [place] [facility] N VENOUS 6 [facility] BLOOD INC INC VENIPUNCT URE RADIOLOGI 24782 [facility] C EXAM 6 MEDICAL MEDICAL CHEST 2 IMAGING IMAGING VIEWS ASS ASS FRONTAL&L ATERAL ANES 78456 [place] BRITTNY LOWER 6 ANESTHESI INTESTINE A GROUP PS ENDOSCOPY DISTAL DUODENUM GONADOTRO 61288 [place] PIN 6 [facility] FOLLICLE INC INC STIMULATI NG HORMONE THYROID 20117 [place] HORM 6 [facility] UPTK/THYR INC INC OID HORMONE BINDING RATIO COLLECTIO 23756 [place] N VENOUS 6 [facility] BLOOD INC INC VENIPUNCT URE GONADOTRO 21211 [place] PIN 6 [facility] LUTEINIZ[place] [address] [place] THYROID 6 [facility] STIMULATI [place] [address] [place] THYROXINE 6 [facility] TOTAL INC INC ECG 04648 [place] GIOVANI ROUTINE 6 [facility] W/LEAST P 12 LDS I&R ONLY GROUND A0425 [facility] MILEAGE 6 AMBULANCE KILO PER SERVICE STATUTE MILE AMB A0427 [facility] SERVICE 6 AMBULANCE KILO ALS SERVICE EMERGENCY TRANSPORT LEVEL 1 RADIOLOGI 26870 [facility] C 6 MEDICAL MEDICAL EXAMINATI IMAGING IMAGING ON CHEST ASS ASS SINGLE VIEW FRONTAL PREPJ& 26462 ALLERGY [place] MAR ALLERGEN 6 PARTNERS IMMUNOTHE OF TRE PEREZ CO 1/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 [address] [place] INFUSION 6 [facility] THERAPY INC INC PROPHYLAX IS/DX EA HOUR RADIOLOGI 55871 [place] C 6 [facility] EXAMINATI INC INC ON K[place]EE [address] [place] [address] [place] HEAD/BRAI 6 [facility] N W/O INC INC CONTRAST MATERIAL ECG 67020 [place] MAT[place] ROUTINE 6 [facility] W/LEAST P 12 LDS [place] [address] [place] INFUSION 6 [facility] THERAPY/P INC INC ROPHYLAXI S /DX 1ST TO 1 [place] [address] [place] TROPONIN 6 [facility] QUANTITAT INC INC SABIHA BLOOD 97140 [place] COUNT 6 [facility] COMPLETE INC INC AUTO&AUTO DIFRNTL WBC COMPREHEN 31233 [place] SIVE 6 [facility] [place] [address] [place] CERVICAL 6 [facility] SPINE W/O INC INC CONTRAST MATERIAL CREATINE 94290 [place] KINASE MB 6 [facility] FRACTION INC INC ONLY ECG 04119 [place] ROUTINE 6 [facility] ECG INC INC W/LEAST 12 LDS TRCG ONLY W/O I&R CREATINE 99797 [place] KINASE 6 [facility] TOTAL INC INC SPACR A4627 [facility] KRASNOPOL BAG/RESRV 6 EQUIPMENT ANTONIO LAUREN OR W/WO INC MASK W/METRD DOSE INHAL PERCUTANE 09038 ALLER[facility] [place] MAR OUS TESTS 6 [facility] [place] W/ALLERGE CO LEO EXTRACTS INTRACUTA 13953 ALLERGY [place] MAR NEOUS 6 PARTNERS TESTS OF [place] W/ALLERGE CO LEO EXTRACTS SPMTRY 45632 ALLERGY [place] MAR W/VC 6 PARTNERS EXPIRATOR OF [place] Y ABHI CO W/WO MXML VOL VNTJ NITRIC 66401 ALLERGY [place] MAR OXIDE 6 [facility] [place] [address] [facility] TRANSVAGI 6 PHYSICIAN MEAGAN NAL S GROUP ECG 16077 [place] CHAVEZ JR ROUTINE 6 [facility] W/LEAST P 12 LDS I&R ONLY IADNA 37788 [place] CHLAMYDIA 6 [facility] INC INC TRACHOMAT IS AMPLIFIED PROBE TQ IADNA 43378 [place] NEISSERIA 6 [facility] INC INC GONORRHOE [place] [address] [facility] [place] ANDREWS TRACT 6 RADIOLOGY RHO UPPER W/WO DELAYED IMAGES W/KUB RADIOLOGI 34488 [facility] ALL C 6 MEDICAL EXAMINATI IMAGING ON CHEST ASS SINGLE VIEW FRONTAL ECG 55682 [place] MAT[place] ROUTINE 6 [facility] W/LEAST P 12 LDS I&R ONLY ELECTROEN 49364 [facility] CEPHALOGR 6 N AM W/REC NEUROLOGY AWAKE&[place] [address] [facility] ABDOMEN & 6 MEDICAL MEDICAL PELVIS IMAGING IMAGING W/CONTRAS ASS ASS T MATERIAL ECG 93367 [place] MAT[place] ROUTINE 6 [facility] W/LEAST P 12 LDS I&R ONLY ELECTROEN 62535 [facility] CEPHALOGR 6 N N AM W/REC COMMUNTIY COMMUNTIY [facility] H[facility]PITA WSY RADEX 18440 [place] C[place] ALL SPINE 6 MEDICAL THORACIC IMAGING 2 VIEWS ASS ECG 44858 [place] CHAVEZ JR ROUTINE 6 [facility] W/LEAST P 12 LDS I&R ONLY RADIOLOGI 17354 [place] C[place] ALL C 6 MEDICAL EXAMINATI IMAGING ON CHEST ASS SINGLE VIEW FRONTAL COMPUTER- 78305 [place] HARLEEN AIDED 6 MEDICAL ADRIANNA DETECTION IMAGING ASS SCREENING MAMMOGRAP HY SCREENING G0202 [place] HARLEEN 6 MEDICAL ADRIANNA MAMMOGRAP IMAGING HY WILBERT ASS INCL CAD WHEN PERFORMD COMPREHEN 53430 [place] SIVE 6 [facility] METABOLIC INC INC PANEL ECG 79389 [place] ROUTINE 6 [facility] ECG INC INC W/LEAST 12 LDS TRCG ONLY W/O I&[place] [address] [place] LACTATE 6 [facility] INC INC BLOOD 81812 [place] COUNT 6 [facility] COMPLETE INC INC AUTO&[place] [address] [place] TROPONIN 6 [facility] QUANTITAT INC INC SABIHA ECG 70517 [place] CHAVEZ JR ROUTINE 6 [facility] W/LEAST P 12 LDS I&[place] [address] [place] INFUSION 6 [facility] THERAPY/P INC INC ROPHYLAXI S /DX 1ST TO 1 HR URNLS DIP 40077 [place] [facility] 6 [facility] STICK/TAB INC INC LET REAGENT AUTO MICROSCOP Y RADEX ABD 56681 [place] SAQIB ALL COMPL 6 MEDICAL AQT ABD IMAGING W/S/E/D ASS VIEWS 1 [place] [address] [place] INFUSION 6 [facility] THERAPY/P INC INC ROPHYLAXI S /DX 1ST TO 1 HR URNLS DIP 32295 [place] [facility] 6 [facility] STICK/TAB INC INC LET REAGENT AUTO MICROSCOP Y ECG 97579 [place] ROUTINE 6 [facility] W/LEAST P 12 LDS I&[place] [address] [place] TROPONIN 6 [facility] QUANTITAT INC INC SABIHA BLOOD 47064 [place] COUNT 6 [facility] COMPLETE INC INC AUTO&AUTO DIFRNTL WBC URINE 89183 [place] 6 [facility] TEST INC INC VISUAL COLOR CMPRSN METHS RADIOLOGI 09300 SEJAL CERRATO ALL C EXAM 6 MEDICAL CHEST 2 IMAGING VIEWS ASS FRONTAL&L ATERAL ECG 26088 [place] ROUTINE 6 [facility] ECG INC INC W/LEAST 12 LDS TRCG ONLY W/O I&R CREATINE 01610 [place] KINASE 6 [facility] TOTAL INC INC CULTURE 50986 [place] BACTERIAL 6 [facility] INC INC QUANTTATI VE COLONY COUNT URINE COMPREHEN 03088 [place] SIVE 6 [facility] METABOLIC INC INC PANEL CREATINE 59664 [place] KINASE MB 6 [facility] FRACTION INC INC ONLY GROUND A[address] [facility] MILEAGE 6 AMBULANCE AMBULANCE PER SERVICE SERVICE STATUTE MILE RADEX ABD 93448 SEJAL CERRATO ALL COMPL 6 MEDICAL AQT ABD IMAGING W/S/E/D ASS VIEWS 1 VIEW CH AMB A[address] [facility] SERVICE 6 AMBULANCE AMBULANCE ALS SERVICE SERVICE EMERGENCY TRANSPORT LEVEL 1 MRI BRAIN 46716 [facility] BRAIN 6 N N STEM W/O COMMUNTIY COMMUNTIY CONTRAST HOSPITA HOSPITA MATERIAL BLOOD 61681 [facility] COUNT 6 N N COMPLETE COMMUNTIY COMMUNTIY AUTO&AUT[place] [address] [facility] INFUSION 6 N N HYDRATION COMMUNTIY COMMUNTIY EACH HOSPITA HOSPITA ADDITIONA L HOUR COMPREHEN 85560 [facility] SIVE 6 N N METABOLIC COMMUNTIY COMMUNTIY PANEL HOSPITA HOSPITA COLLECTIO 80824 [facility] N VENOUS 6 N N BLOOD COMMUNTIY COMMUNTIY VENIPUNCT HOSPITA HOSPITA URE THER 89721 [facility] PROPH/DX 6 N N NJX IV COMMUNTIY COMMUNTIY PUSH HOSPITA HOSPITA SINGLE/1S T SBST/[place] [address] SEJAL CERRATO ALL ABDOMEN & 6 MEDICAL PELVIS IMAGING W/O ASS CONTRAST MATERIAL ECG 97568 [place] ROUTINE 6 [facility] W/LEAST P 12 LDS I&R ONLY RADIOLOGI 29664 SEJAL CERR[facility] ALL C 6 MEDICAL EXAMINATI IMAGING [place] [address] SEJAL CERRATO ALL HEAD/BRAI 6 MEDICAL N W/O IMAGING CONTRAST ASS MATERIAL AMB A[address] [facility] SERVICE 6 AMBULANCE AMBULANCE ALS SERVICE SERVICE EMERGENCY TRANSPORT LEVEL 1 GROUND [address] [facility] MILEAGE 6 AMBULANCE AMBULANCE PER SERVICE SERVICE STATUTE MILE CHIROPRAC 16763 [facility] TIC 6 MANIPULAT SABIHA TX SPINAL 3-4 REGIONS MANUAL 86270 [facility] THERAPY 6 TQS 1/> REGIONS EACH 15 MINUTES THERAPEUT 00234 [facility] IC PX 1/> 6 AREAS EACH 15 MIN EXERCISES CHIROPRAC 19516 [facility] TIC 6 MANIPLTV TX EXTRASPIN AL 1/> REGION THERAPEUT 42033 [facility] IC PX 1/> 6 AREAS EACH 15 MIN EXERCISES MANUAL 28000 [facility] THERAPY 6 TQS 1/> REGIONS EACH 15 MINUTES MANUAL 83680 [facility] THERAPY 6 MATTI MATTI TQS 1/> REGIONS EACH 15 MINUTES CHIROPRAC 73980 [facility] TIC 6 MATTI MATTI MANIPULAT SABIHA TX SPINAL 3-4 REGIONS THERAPEUT 23571 [facility] LUKING IC PX 1/> 6 MATTI MATTI AREAS EACH 15 MIN EXERCISES CHIROPRAC 06882 [facility] TIC 6 MATTI MATTI MANIPLTV TX EXTRASPIN AL 1/> REGION COMPREHEN 38067 [facility] SIVE 6 DIAGNOSTI DIAGNOSTI METABOLIC CS CS PANEL BX SKIN 35036 SCALF LEI SCALF LEI SUBCUTANE 6 OUS&/MUCO US MEMBRANE 1 LESION IMHISTOCH 42183 SCALF LEI SCALF LEI EM/CYTCHM 6 1ST [place]IB[place] [address] SCALF LEI SCALF LEI SURG 6 PATHOLOGY GROSS&BRYCE ROSCOPIC EXAM ECG 09672 [place] ROUTINE 6 [facility] W/LEAST P 12 LDS I&R ONLY ECG 68245 MORAVIAN ANDRES ROUTINE 6 HEALTH IV HEN ECG MEDICAL W/LEAST GROUP 12 LDS I&R ONLY HEMOGLOBI 52014 MORAVIAN MORAVIAN N 6 [facility] GLYCOSYLA [facility] LANEY A1C BLOOD 62090 MORAVIAN MORAVIAN COUNT 6 [employer] COMPLETE [facility] AUTOMATED BASIC 60939 MORAVIAN MORAVIAN METABOLIC 6 [facility] PANEL [facility] CALCIUM TOTAL LIPID 24232 MORAVIAN MORAVIAN PANEL 6 [facility] CATH PLMT 11889 MORAVIAN ANDRES L HRT & 6 HEALTH IV ARTS MEDICAL W/NJX & GROUP ANGIO IMG S&I INJECTION J3010 MORAVIAN MORAVIAN FENTANYL 6 [employer] CITRATE [facility] 0.1 MG LOCM Q9967 MORAVIAN MORAVIAN 300-399 6 [employer] MG/ML [facility] IODINE CONCENTRA TION PER ML INJECTION J1644 MORAVIAN MORAVIAN HEPARIN 6 [employer] SODIUM [facility] PER 1000 UNITS COLLECTIO 23784 MORAVIAN MORAVIAN N VENOUS 6 [facility] Newtricious BLOOD [facility] VENIPUNCT URE GONADOTRO 36235 MORAVIAN MORAVIAN PIN 6 [facility] HEALTH CHORIONIC [facility] QUANTITAT SABIHA CV STRS 34917 [place] TST 6 [facility] RX CONT P P ECG W/O I&R CV STRS 70192 [place] TST 6 [facility] XERS&/OR INC INC RX CONT ECG TRCG ONLY CV STRS 93381 [place] TST 6 [facility] RX CONT P P ECG I&R ONLY TECHNETIU A9500 [place] TC-99M 6 [facility] SESTAMIBI INC INC DX PER STUDY DOSE MYOCARDIA 82986 [place] L SPECT 6 [facility] MULTIPLE INC INC STUDIES ECHO 26421 [place] TTHRC R-T 6 [facility] 2D INC INC W/WOM-MOD E COMPL SPEC&COLR D ECG 64127 [place] SCOTT JR ROUTINE 6 [facility] W/LEAST P 12 LDS I&R ONLY RADIOLOGI 70109 [place] C[place] ALL C 6 MEDICAL EXAMINATI IMAGING ON CHEST ASS SINGLE VIEW FRONTAL OPHTH 02722 [facility] MEDICAL 6 XM&EVAL COMPRHNSV ESTAB PT 1/> [place] [address] LAB [facility] LAB MAHESH FOLIC 6 MAI MAI [place] [address] LAB MAHESH LAB MAHESH IRON 6 MAI MAI [facility] HOLDINGS COMPREHEN 61640 LAB MAHESH LAB MAHESH SIVE 6 MAI MAI METABOLIC [place] [address] LAB MAHESH LAB MAHESH TOCOPHERO 6 MAI MAI L ALPHA [place] [address] LAB [facility]ESH LAB MAHESH VITAMIN A 6 [place] [address] LAB MAHESH LAB MAHESH PHOSPHORU 6 MAI MAI S HOLDINGS HOLDINGS INORGANIC ORGANIC 56483 LAB MA[facility] LAB MAHESH ACID 1 6 MAI MAI QUANTITAT [place] [address] LAB [facility] LAB MAHESH PARATHORM 6 [place] [address] LAB MAHESH LAB MAHESH FERRITIN 6 [place] [address] LAB MAHESH LAB MAHESH MAGNESIUM 6 MAI MAI HOLDINGS HOLDINGS 25 78639 LAB [facility] LAB MAHESH HYDROXY 6 MAI MAI INCLUDES HOLDINGS HOLDINGS FRACTIONS IF PERFORMED BLOOD 08694 LAB [facility] LAB MAHESH COUNT 6 MAI MAI COMPLETE HOLDINGS HOLDINGS AUTO&AUTO DIFRNTL WBC PREALBUMI 59536 LAB [facility] LAB MAHESH N 6 [place] [address] LAB [facility] LAB MAHESH ZINC 6 [place] [address] LAB MAHESH LAB MAHESH THIAMINE- 6 MAI MAI VITAMIN HOLDINGS HOLDINGS B-1 IRON 34049 [place] [facility] BINDING 6 [facility] CAPACITY INC INC BLOOD 19995 [place] COUNT 6 [facility] COMPLETE INC INC AUTO&AUTO DIFRNTL WBC 25 75270 [place] HYDROXY 6 [facility] INCLUDES INC INC FRACTIONS IF PERFORMED COLLECTIO 16907 [place] N VENOUS 6 [facility] [place] [address] [place] VAUGHN FERRITIN 6 [place] [address] [place] [facility] THYROID 6 [facility] STIMULATI INC INC NG HORMONE TSH COMPREHEN 86490 [place] [facility] SIVE 6 [facility] [address] [place] IRON 6 [facility] INC INC IADNA 65909 [facility]AM[facility] TRACHOMAT IS AMPLIFIED PROBE TQ IADNA 28572 [facility] HUMAN [facility] PAPILLOMA VIRUS HIGH-RISK TYPES IADNA 58894 [facility], [facility] NEISSERIA [facility] GONORRHOE AE AMPLIFIED PROBE TQ CYTP C/V 68977 [facility] AUTO THIN [facility] LYR PREPJ SCR MNL RESCR PHYS CYTP 28028 [facility], [facility] CERVICAL/ 6 [facility] VAGINAL REQ INTERP PHYSICIAN COLLECTIO 30445 [place] [facility] N VENOUS 6 [facility] [place] [address] [place] [facility] THYROID 6 [facility] STIMULATI INC INC NG HORMONE TSH BASIC 86566 [place] METABOLIC 6 [facility] PANEL INC INC CALCIUM TOTAL BLOOD 46437 [place] COUNT 6 [facility] COMPLETE INC INC AUTO&AUTO DIFRNTL WBC PREALBUMI 09024 [place] N 6 [place] [address] [place] IRON 6 [facility] INC INC COLLECTIO 54642 [place] [facility] N VENOUS 6 [facility] [place] [address] [place] FERRITIN 6 [facility] INC INC ORGANIC 91064 [place] ACID 1 6 [facility] [place] [address] [place] [facility] THIAMINE- 6 [facility] VITAMIN INC INC B-1 COMPREHEN 82997 [place] SIVE 6 [facility] [place] [address] LAB MA[facility]ESH LAB MAHESH IRON 5 [place] [address] LAB MAHESH LAB MAHESH FOLIC 5 MAI MAI [place] [address] LAB MAHESH LAB MAHESH THIAMINE- 5 MAI MAI VITAMIN HOLDINGS HOLDINGS B-1 ORGANIC 21623 LAB [facility] LAB MAHESH ACID 1 5 MAI MAI QUANTIT[place] [address] LAB MAHESH LAB MAHESH FERRITIN 5 MAI MAI HOLDINGS HOLDINGS PREALBUMI 60644 LAB MAHESH LAB MAHESH N 5 MAI MAI HOLDINGS HOLDINGS GENERAL 22383 LAB MA[facility] LAB MAHESH HEALTH 5 MAI MAI PANEL HOLDINGS HOLDINGS BIOPSY 76895 ATKINS ATKINS SKIN 5 TRA TRA SUBQ&/MUC OUS MEMBRANE EA ADDL LESN DESTRUCTI 56030 ATKINS ATKINS ON BENIGN 5 TRA TRA LESIONS UP TO 14 BX SKIN 38298 ATKINS ATKINS SUBCUTANE 5 TRA TRA OUS&/MUCO US MEMBRANE 1 LESION DESTRUCTI 58553 ATKINS ATKINS ON 5 TRA TRA PREMALIGN [place] 1[place] [address] SCALF LEI SCALF LEI SURG 5 PATHOLOGY GROSS&BRYCE ROSCOPIC EXAM COMPREHEN 49263 [facility] SIVE 5 MAI MAI [place]AB[place] [address] [facility] FOLIC 5 MIA MA[place] [address] [facility] IRON 5 MAI MAI HOLDINGS HOLDINGS ORGANIC 40773 [facility] ACID 1 5 [facility] QU[place] [address] [facility] THIAMINE- 5 [facility] VITAMIN HOLDINGS HOLDINGS B-1 PREALBUMI 87636 [facility] N 5 [facility] HOLDINGS HOLDINGS BLOOD 73987 [facility] COUNT 5 [facility] COMPLETE HOLDINGS HOLDINGS AUTO&AUTO DIFRNTL WBC COMPUTER- 76532 [facility] AIDED 5 MEDICAL CARMEN DETECTION IMAGING ASS SCREENING MAMMOGRAP HY SCREENING G0202 [place] [address] MEDICAL CARMEN MAMMOGRAP IMAGING HY WILBERT ASS INCL CAD WHEN PERFORMD COMPREHEN 82864 [facility] SIVE 5 [facility] [place] [address] [facility] GLUTAMYLT 5 [facility] RASE INC INC GAMMA CYANOCOBA 26091 [facility] LYUBOV 5 [facility] VITAMIN INC [place] B-12 [place] [address] [facility] THYROID 5 [facility] STIMULATI INC INC NG HORMONE TSH COLLECTIO 95728 [facility] N VENOUS 5 [facility] BLOOD INC INC VENIPUNCT URE 25 29105 [facility] HYDROXY 5 [facility] INCLUDES INC INC FRACTIONS IF PERFORMED BLOOD 26200 [facility] COUNT 5 [facility] COMPLETE INC INC AUTO&AUTO DIFRNTL WBC HEMOGLOBI 82576 [facility] N 5 [facility] GLYCOSYLA INC INC LANEY A1C LIPID 19708 [facility] PANEL 5 [facility] INC INC OPHTH 92527 SCIFRES SCIFRES MEDICAL 5 ANG ANG XM&EVAL COMPRHNSV ESTAB PT 1/> [place] [address] [facility] ABDOMEN & 5 N N [facility]ELVIS COMMUNTIY COMMUNTIY W/[place] [address] [facility] ABDOMEN & 5 [facility] PELVIS INC INC W/CONTRAS T MATERIAL URINE 63237 [facility] TEST INC INC VISUAL COLOR CMPRSN METHS BLOOD 82247 [facility] COUNT 5 [facility] COMPLETE INC INC AUTO&AUTO DIFRNTL WBC URNLS DIP 29040 [facility] STICK/TAB INC INC [place] [address] [facility] AMYLASE 5 [facility] INC INC COMPREHEN 61141 [facility] SIVE 5 [facility] METABOLIC INC INC PANEL CULTURE 96148 [facility] BACTERIAL 5 [facility] INC INC [place] [address] [facility] LIPASE 5 [facility] [place] [address] [facility] LIPASE 5 N N COMMUNTI[place] [address] [facility] MAGNESIUM 5 N N COMMUNTIY [place] [address] [facility] THIAMINE- 5 N N VITAMIN COMMUNTIY COMMUNTIY B-1 HOSPITA HOSPITA ORGANIC 02428 [facility] ACID 1 5 N N QUANTITAT COMMUNTIY COMMUNTIY [place] [address] [facility] PHOSPHORU 5 N N S COMMUNTIY COMMUNTIY [place] [address] [facility] PARATHORM 5 N N ONE COMMUNTIY COMMUNTIY HOSPITA HOSPITA 25 78763 [facility] HYDROXY 5 N N INCLUDES COMMUNTIY COMMUNTIY FRACTIONS HOSPITA HOSPITA IF PERFORMED COLLECTIO 25318 [facility] N VENOUS 5 N N BLOOD COMMUNTIY COMMUNTIY [place]IPUN[place] [address] [facility] VITAMIN A 5 N N COMMUNTI[place] [address] [facility] TOCOPHERO 5 N N L ALPHA COMMUNTIY COMMUNTIY VITAMIN E HOSPITA [place] [address] [facility] AMYLASE 5 N N COMMUNTI[place] [address] [facility] FOLIC 5 N N ACID COMMUNTIY COMMUNTIY SERUM HOSPITA HOSPITA COMPREHEN 10281 [facility] SIVE 5 N N METABOLIC COMMUNTIY COMMUNTI[place] [address] [facility] ZINC 5 N N COMMUNTIY COMMUNTIY HOSPITA HOSPITA PREALBUMI 72031 [facility] N 5 N N COMMUNTIY COMMUNTIY HOSPITA HOSPITA BLOOD 11188 [facility] COUNT 5 N N COMPLETE COMMUNTIY COMMUNTIY AUTO&[place] [address] [facility] ABDOMINAL 5 N N REAL COMMUNTIY COMMUNTIY TIME HOSPITA HOSPITA W/[place] [address] [place] TALLEYON RETROPERI 5 [facility] TONEAL INC INC REAL TIME W/[place] [address] [facility] RET[facility] 5 MEDICAL TONEAL IMAGING REAL TIME ASS W/IMAGE LIMITED BLOOD 93421 [facility] COUNT 5 N N COMPLETE COMMUNTIY COMMUNTIY AUTOMATED HOSPITA HOSPITA ALPHA-1-A 53440 [facility] NTITRYPSI 5 N N N TOTAL COMMUNTIY COMMUNTIY HOSPITA HOSPITA IRON 83393 [facility] BINDING 5 N N CAPACITY COMM[place]TI[place] [address] [facility] GAMMAGLOB 5 N N ULIN IGA COMMUNTIY COMMUNTIY IGD IGG HOSPITA HOSPITA IGM EACH COMPREHEN 62488 [facility] SIVE 5 N N METABOLIC COMMUNTIY COMMUNTI[place] [address] [facility] IRON 5 N N COMMUNTIY COMMUNTIY HOSPITA HOSPITA HEPATITIS 51279 [facility] C 5 N N ANTIBODY COMMUNTIY COMMUNTIY HOSPITA HOSPITA ANTINUCLE 78162 [facility] AR 5 N N ANTIBODIE COMMUNTIY COMMUNTIY [place] [address] [facility] FERRITIN 5 N N COMMUNTIY COMMUNTIY HOSPITA HOSPITA IMMUNOASS 11399 [facility] AY 5 N N ANALYTE COMMUNTIY COMMUNTIY QUAL/SEMI HOSPITA HOSPITA QUAL MULTIPLE STEP COLLECTIO 66622 [facility] N VENOUS 5 N N BLOOD COMMUNTIY COMMUNTIY VENIPUNCT HOSPITA HOSPITA URE PROTHROMB 47276 [facility] IN TIME 5 N N COMMUNTIY COMMUNTIY HOSPITA HOSPITA HEPATITIS 87995 [facility] B CORE 5 N N ANTIBODY COMMUNTIY COMMUNTIY HBCAB HOSPITA HOSPITA TOTAL HEPATITIS 59776 [facility] B SURF 5 N N ANTIBODY COMMUNTIY COMMUNTI[place] [address] [facility] HEPATITIS 5 N N B COMMUNTIY COMMUNTIY [place] [address] [facility] ABDOMEN & 5 MEDICAL PELVIS IMAGING W/O ASS CONTRAST MATERIAL DUP-SCAN 12202 [facility] [place] ANDREWS XTR VEINS 5 RADIOLOGY RHO COMPLETE BILATERAL STUDY BLOOD 77022 [facility] COUNT 5 N N COMPLETE COMMUNTIY COMMUNTIY AUTO&AUTO HOSPITA HOSPITA DIFRNTL WBC COLLECTIO 48698 [facility] N VENOUS 5 N N BLOOD COMMUNTIY COMMUNTIY [place]IP[place] [address] [facility] LIPASE 5 N N COMMUNTIY COMMUNTIY HOSPITA HOSPITA COMPREHEN 95669 [facility] SIVE 5 N N METABOLIC COMMUNTIY COMMUNTIY [place] [address] [facility] AMYLASE 5 N N COMMUNTI[place] [address] [facility] [place] SCALF HUBER TRACT 5 RADIOLOGY UPPER W/WO DELAYED IMAGES W/KUB ANES IPR 60734 [place] BRITTNY ANT UPPER 5 ANESTHESI ABDOMEN A GROUP LAPS PS GASTRIC RSTCV MO LAPS 18979 [facility] SANCHEZ MICHELLE GSTRC 5 RSTRICTIV BARIATRIC PX SURGICAL LONGITUDI NAL GASTRECTO MY LAPAROSCO 4382 [facility] PIC 5 N N VERTICAL COMMUNTIY COMMUNTIY SLEEVE HOSPITA HOSPITA GASTRECTO MY OTHER 4513 [facility] ENDOSCOPY 5 N N OF SMALL COMMUNTIY COMMUNTIY HOSPITA HOSPITA INTESTINE APPL 55741 [place] [facility] MODALITY 5 [facility] 1/> AREAS INC INC ELEC STIMJ UNATTENDE D APPL 84665 [place] [facility] MODALITY 5 [facility] 1/> AREAS INC INC ULTRASOUN D EA 15 MIN APPLICATI 87832 [place] [facility] ON 5 [facility] MODALITY INC INC 1/> AREAS HOT/COLD PACKS DUP-SCAN 71053 [place] HARLEEN XTR VEINS 5 MEDICAL ADRIANNA COMPLETE IMAGING ASS BILATERAL STUDY BLOOD 80891 [facility] COUNT 5 N N COMPLETE COMMUNTIY COMMUNTIY AUTOMATED HOSPITA HOSPITA GONADOTRO 83844 [facility] PIN 5 N N CHORIONIC COMMUNTIY COMMUNTIY HOSPITA HOSPITA QUALITATI VE COMPREHEN 19095 [facility] SIVE 5 N N METABOLIC COMMUNTIY COMMUNTIY PANEL HOSPITA HOSPITA COLLECTIO 46033 [facility] N VENOUS 5 N N BLOOD COMMUNTIY COMMUNTIY VENIPUNCT HOSPITA HOSPITA URE THERAPEUT 40048 [place] [facility] IC PX 1/> 5 [facility] AREAS INC INC EACH 15 MIN EXERCISES APPL 88533 [place] [facility] MODALITY 5 [facility] 1/> AREAS INC INC ELEC STIMJ UNATTENDE D APPL 16365 [place] [facility] MODALITY 5 [facility] 1/> AREAS INC INC ULTRASOUN D EA 15 MIN APPLICATI 01444 [place] [facility] ON 5 [facility] MODALITY INC INC 1/> AREAS HOT/COLD PACKS SUSCEPTIB 58676 [place] [facility] LTY STDY 5 [facility] ANTIMICRB INC INC IAL MICRO/AGA R DILUTJ CUL BACT 60501 [place] [facility] XCPT 5 [facility] URINE INC INC BLOOD/STO OL AEROBIC ISOL THERAPEUT 11715 [place] [facility] IC PX 1/> 5 [facility] AREAS INC INC EACH 15 MIN EXERCISES APPL 70829 [place] [facility] MODALITY 5 [facility] 1/> AREAS INC INC ELEC STIMJ UNATTENDE D APPLICATI 86619 [place] [facility] ON 5 [facility] MODALITY INC INC 1/> AREAS HOT/COLD PACKS APPL 89009 [place] [facility] MODALITY 5 [facility] 1/> AREAS INC INC ULTRASOUN D EA 15 MIN APPL 33416 [place] [facility] MODALITY 5 [facility] 1/> AREAS INC INC ULTRASOUN D EA 15 MIN APPLICATI 61830 [place] [facility] ON 5 [facility] MODALITY INC INC 1/> AREAS HOT/COLD PACKS APPL 06320 [place] [facility] MODALITY 5 [facility] 1/> AREAS INC INC ELEC STIMJ UNATTENDE D APPL 81507 [place] [facility] MODALITY 5 [facility] 1/> AREAS INC INC IONTOPHOR ESIS EA 15 MIN THERAPEUT 04613 [place] [facility] IC PX 1/> 5 [facility] AREAS INC INC EACH 15 MIN EXERCISES APPL 45989 [place] [facility] MODALITY 5 [facility] 1/> AREAS INC INC ELEC STIMJ UNATTENDE D APPLICATI 17063 [place] [facility] ON 5 [facility] MODALITY INC INC 1/> AREAS HOT/COLD PACKS APPL 21733 [place] [facility] MODALITY 5 [facility] 1/> AREAS INC INC ULTRASOUN D EA 15 MIN APPL 49748 [place] [facility] MODALITY 5 [facility] 1/> AREAS INC INC IONTOPHOR ESIS EA 15 MIN BLOOD 18842 [facility] COUNT 5 N N COMPLETE COMMUNTIY COMMUNTIY AUTOMATED HOSPITA HOSPITA THYROID 76366 [facility] HORM 5 N N UPTK/THYR COMMUNTIY COMMUNTIY OID HOSPITA HOSPITA HORMONE BINDING RATIO LIPID 45921 [facility] PANEL 5 N N COMMUNTIY COMMUNTIY HOSPITA HOSPITA RADIOLOGI 44981 [facility] C EXAM 5 N N CHEST 2 COMMUNTIY COMMUNTIY VIEWS HOSPITA HOSPITA FRONTAL&[place] [address] [facility] THYROXINE 5 N N TOTAL COMMUNTIY COMMUNTIY HOSPITA HOSPITA CUL 84911 [facility] PRSMPTV 5 N N PTHGNC COMMUNTIY COMMUNTIY ORGANISM HOSPITA HOSPITA SCRN W/COLONY ESTIMJ COMPREHEN 35005 [facility] SIVE 5 N N METABOLIC COMMUNTIY COMMUNTIY PANEL HOSPITA HOSPITA COLLECTIO 40650 [facility] N VENOUS 5 N N BLOOD COMMUNTIY COMMUNTIY [place]ENIPUN[place] [address] [facility] THYROID 5 N N STIMULATI COMMUNTIY COMMUNTIY NG HOSPITA HOSPITA HORMONE TSH ECG 75326 [facility] ROUTINE 5 N N ECG COMMUNTIY COMMUNTIY W/LEAST HOSPITA HOSPITA 12 LDS TRCG ONLY W/O I&R PHYSICAL 98762 [place] [facility] THERAPY 5 [facility] EVALUATIO INC INC N COLLECTIO 56104 [place] [facility] N VENOUS 5 [facility] BLOOD INC INC VENIPUNCT URE FIBRIN 67512 [place] [facility] DGRADJ 5 [facility] PRODUCTS INC INC D-DIMER QUAL/SEMI GILBERT ECG 45324 [place] [facility] ROUTINE 5 [facility] ECG INC INC W/LEAST 12 LDS TRCG ONLY W/O I&R COMPREHEN 61196 [place] [facility] SIVE 5 [facility] [place] [address] [place] [facility] TROPONIN 5 [facility] QUANTITAT INC INC SABIHA BLOOD 58830 [place] [facility] COUNT 5 [facility] COMPLETE INC INC AUTO&AUTO DIFRNTL WBC URNLS DIP 66777 [place] [facility] 5 [facility] STICK/TAB INC INC LET REAGENT AUTO MICROSCOP Y ECG 45622 [place] CHAVEZ JR ROUTINE 5 [facility] W/LEAST P 12 LDS I&R ONLY RADIOLOGI 77546 [place] [facility] C EXAM 5 [facility] CHEST 2 INC INC VIEWS FRONTAL&L ATERAL RADIOLOGI 52172 [place] [facility] C EXAM 5 [facility] CHEST 2 INC INC VIEWS FRONTAL&L ATERAL ECG 14514 [place] MATUTE ROUTINE 5 [facility] W/LEAST P 12 LDS I&R ONLY BLOOD 14870 [place] [facility] COUNT 5 [facility] COMPLETE INC INC AUTO&[place] [address] [place] [facility] TROPONIN 5 [facility] QUANTITAT INC INC SABIHA COMPREHEN 00530 [place] [facility] SIVE 5 [facility] [address] [place] [facility] ANGIOGRAP 5 [facility] HY CHEST INC INC W/CONTRAS T/NONCONT RAST LOCM Q9967 [place] [facility] 300-399 5 [facility] MG/ML INC INC IODINE CONCENTRA TION PER ML ECG 11758 [place] [facility] ROUTINE 5 [facility] ECG INC INC W/LEAST 12 LDS TRCG ONLY W/O I&R FIBRIN 67626 [place] [facility] DGRADJ 5 [facility]OS[facility] PRODUCTS INC INC D-DIMER QUAL/SEMI GILBETR RADEX 14014 [place] HARLEEN SHOULDER 4 MEDICAL COMPLETE IMAGING MINIMUM 2 ASS VIEWS DESTRUCTI 32835 ATKINS ATKINS ON BENIGN 4 TRA TRA LESIONS UP TO 14 REPAIR 65111 ATKINS ATKINS COMPLEX 4 TRA TRA SCALP/ARM /LEG 1.1-2.5 CM LEVEL III 88745 SCAL[facility] LEI SCALF LEI SURG 4 PATHOLOGY GROSS&BRYCE ROSCOPIC EXAM THERAPEUT 59709 [place] [facility] IC 4 [facility] INJECTION [place] [address] [place] HEAD/BRAI 4 MEDICAL ADRIANNA N W/O IMAGING CONTRAST ASS MATERIAL EGD 03607 [facility] TRANSORAL 4 N N BIOPSY [facility] SINGLE/MU HOSPITA HOSPITA LTIPLE ANES 93687 SEJAL BENSON UPPER GI 4 ANESTHESI JOSE ANGEL ENDOSCOPY A [place] [address] [facility], PICKLESIM SURG 4 [facility] ER [facility] PATHOLOGY GROSS&BRYCE ROSCOPIC EXAM SPECIAL 42120 [facility], PICKLESIM STAIN 4 [facility] GROUP 1 MICROORGA NISMS I&R SPCL STN 63931 [facility], PICKLESIM 2 I&R 4 [facility] EXCPT MICROORG/ ENZYME/IM CYT SPMTRY 57897 [place] [facility] W/VC 4 [facility]OSP EXPIRATOR INC INC Y ABHI W/WO MXML VOL VNTJ REPAIR 85934 ADVANCED SCALF LEI COMPLEX 4 DERMATOLO SCALP/ARM GY /LEG 1.1-2.5 CM EXC B9 94881 ADVANCED SC[facility] LEI LESION 4 DERMATOLO MRGN XCP GY SK TG S/N/H/F/G 1.1-2.0CM LEVEL III 20200 SC[facility] LEI SCALF LEI SURG 4 PATHOLOGY GROSS&BRYCE ROSCOPIC EXAM RADIOLOGI 63855 [place] HARLEEN C EXAM 4 MEDICAL ADRIANNA CHEST 2 IMAGING VIEWS ASS FRONTAL&L ATERAL REMOVAL 62317 ATKINS ATKINS SKN TAGS 4 TRA TRA 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 FIBRQ TAGS ANY AREA UPW/15 CV STRS 30901 [place] MATUTE TST 4 [facility] RX CONT P ECG I&R ONLY CV STRS 49446 [place] [facility] TST 4 [facility] XERS&/OR INC INC RX CONT ECG TRCG ONLY ECHO 47472 [place] [facility] TTHRC R-T 4 [facility] 2D INC INC W/WOM-MOD E COMPL SPEC&COLR D RADIOLOGI 29100 SEJAL Coronado EXAM 4 MEDICAL CARMEN CHEST 2 IMAGING VIEWS ASS FRONTAL&L ATERAL ECG 65259 SCOTT CHAVEZ JR ROUTINE 4 DWI DWI ECG W/LEAST 12 LDS I&R ONLY BASIC 23220 [facility] METABOLIC 4 [facility] PANEL INC INC CALCIUM TOTAL RADIOLOGI 02235 HAR[facility] HARLEEN C 4 ADRIANNA ADRIANNA EXAMINATI [place] [address] [facility] [facility] TROPONIN 4 [facility] QUANTITAT INC INC SABIHA BLOOD 77187 [place] [facility] COUNT 4 [facility] COMPLETE INC INC AUTO&AUTO DIFRNTL WBC ECG 45332 [place] [facility] ROUTINE 4 [facility] ECG INC INC W/LEAST 12 LDS TRCG ONLY W/O I&R ECG 91547 [place] [facility] ROUTINE 4 [facility] ECG INC INC W/LEAST 12 LDS TRCG ONLY W/O I&R CREATINE 28538 [place] [facility] KINASE 4 [facility] TOTAL INC INC FIBRIN 37405 [place] [facility] DGRADJ 4 [facility] MEM HOSP PRODUCTS INC INC D-DIMER QUAL/SEMI GILBERT CREATINE 68352 [place] [facility] KINASE MB 4 [facility] FRACTION INC INC ONLY COMPREHEN 38373 [place] [facility] SIVE 4 [facility] METABOLIC INC INC PANEL BLOOD 19026 [place] [facility] COUNT 4 [facility] COMPLETE INC INC AUTO&[place] [address] [place] [facility] TROPONIN 4 [facility] QUANTITAT INC INC SABIHA ECG 85065 ANKUR PASCUAL ROUTINE 4 BRYCE BRYCE ECG W/LEAST 12 LDS I&R ONLY RADIOLOGI 54420 CHANEL Morillo C EXAM 4 CHEST 2 VIEWS FRONTAL&L ATERAL HEMOGLOBI 59568 COMBINED COMBINED N 4 PHYSICIAN PHYSICIAN GLYCOSYLA S LA S LA LANEY A1C LIPID 13266 COMBINED COMBINED PANEL 4 PHYSICIAN PHYSICIAN S LA S LA GENERAL 15039 COMBINED COMBINED HEALTH 4 PHYSICIAN PHYSICIAN PANEL S LA S LA CYANOCOBA 32499 COMBINED COMBINED LYUBOV 4 PHYSICIAN PHYSICIAN VITAMIN S [place] S LA B-12 [place] [address] COMBINED COMBINED FREE 4 PHYSICIAN PHYSICIAN THYROXINE S LA S LA 25 10595 COMBINED COMBINED HYDROXY 4 PHYSICIAN PHYSICIAN INCLUDES S LA S LA FRACTIONS IF PERFORMED SEDIMENTA 06549 COMBINED COMBINED TION RATE 4 PHYSICIAN PHYSICIAN RBC S LA S LA NON-AUTOM ATED SCREENING G0202 [place] HARLEEN 4 MEDICAL ADRIANNA MAMMOGRAP IMAGING HY WILBERT ASS INCL CAD WHEN PERFORMD COMPUTER- 60142 [place] HAR[place] AIDED 4 MEDICAL ADRIANNA DETECTION IMAGING ASS SCREENING MAMMOGRAP HY LIPID 67543 [facility] PANEL 4 DIAGNOSTI DIAGNOSTI CS CS IIV3 04793 DHS/CO [place] VACCINE 9 [facility] VIRUS 0.5 BANK ACCT ML DOSAGE IM USE RADEX 39155 KIMBERLEE ANKUR, SPINE 9 [facility] COMPL ON W/BENDING VIEWS MIN 6 RADIOLOGI 27504 [place] [facility] C 9 [facility] EXAMINATI INC INC ON PELVIS 1/2 VIEWS RADEX 93084 [place] [facility] SPINE 9 [facility] LUMBOSACR INC INC AL MINIMUM 4 VIEWS RADEX HIP 33356 [place] SUMA, 9 MEDICAL MAX P [place]AGING L ASSOCIATE COMPLETE S MINIMUM 2 VIEWS Encounters Encounter Start End Date Code Location Performer Type Date OFFICE 78031 [place] [facility] 7 7 [facility] T VISIT INC 10 MINUTES [facility] [place] [facility] OUTPATIEN INC T [facility] [place] [facility] OUTPATIEN INC T OFFICE 44459 [facility] [facility] 7 7 [facility] T VISIT INTERNAL 15 MED MINUTES EMERGENCY 84277 [facility] SUGGS 7 7 PHYSICIAN DEPARTMEN S, PLLC T VISIT HIGH/URGE NT SEVERITY EMERGENCY 86958 [place] 7 7 [facility] DEPARTMEN INC T VISIT MODERATE SEVERITY [facility] [place] [facility] OUTPATIEN INC T OFFICE 61211 [facility] CHAND 7 7 PHYSICIAN T VISIT S GROUP 15 MINUTES [facility] [place] [facility] OUTPATIEN INC T [facility] [place] [facility] OUTPATIEN INC T EMERGENCY 40511 [place] 7 7 [facility] DEPARTMEN INC T VISIT LOW/MODER SEVERITY EMERGENCY 78977 [facility] PASCUAL 7 7 PHYSICIAN DEPARTMEN S, PLLC T VISIT MODERATE SEVERITY OFFICE 82955 [facility]ALTH T VISIT MEDICAL 25 GROUP MINUTES EMERGENCY 90358 [facility] PASCUAL 7 7 PHYSICIAN DEPARTMEN S, PLLC T VISIT MODERATE SEVERITY [facility] - 7 7 HEALTH OUTPATIEN WHITTAKER T OFFICE 56966 [place] CHAND 7 7 [facility] T VISIT 5 INC MINUTES [facility] [place] [facility] OUTPATIEN INC T EMERGENCY 02204 [place] 7 7 [facility] DEPARTMEN INC T VISIT LOW/MODER SEVERITY [facility] [place] [facility] OUTPATIEN INC T EMERGENCY 94567 [facility] PASCUAL DEPT 7 7 PHYSICIAN VISIT S, PLLC HIGH SEVERITY& THREAT FUNCJ OFFICE 56498 [facility] CHAND 7 7 PHYSICIAN T VISIT S GROUP 10 MINUTES OFFICE 36679 [facility] OUTPATIEN 7 7 PARTNERS T VISIT OF [place] 25 CO MINUTES [facility] [place] [facility] OUTPATIEN [facility] T OFFICE 90639 [facility] OUTPATIEN 7 7 [facility] T VISIT INTERNAL 15 MED MINUTES EMERGENCY 30467 [place] 7 7 [facility] DEPARTMEN INC T VISIT HIGH/URGE NT SEVERITY [facility] [place] [facility] 7 [facility] OUTPATIEN [facility] EMERGENCY 76334 [facility] DEPT 7 7 PHYSICIAN VISIT S, PLLC HIGH SEVERITY& THREAT FUNCJ OFFICE 67426 [place] OUTPATIEN 7 7 [facility] T VISIT 5 INC MINUTES [facility] [place] [facility] 7 7 [facility] OUTPATIEN [facility] EMERGENCY 91822 [facility] DEPT 7 7 PHYSICIAN VISIT S, PLLC HIGH SEVERITY& THREAT FUNCJ EMERGENCY 87238 [place] 7 7 [facility] DEPARTMEN [facility] T VISIT MODERATE SEVERITY [facility] [place] - 7 7 [facility] OUTPATIEN [facility] HOSPITAL [facility] - 7 7 HEALTH OUTPATIEN WHITTAKER T OFFICE 41139 [place] [facility] 7 7 [facility] T VISIT INTERNAL 15 MED MINUTES HOSPITAL [facility] - 7 7 HEALTH OUTPATIEN WHITTAKER T OFFICE 88397 [place] CELI OUTPATIEN [address] [facility] T VISIT HOSPITAL 10 P MINUTES OFFICE 24828 [facility] FUNES OUTPATIEN 7 7 HEALTH T VISIT MEDICAL 25 GROUP MINUTES OFFICE 65048 YVETTE AVINA OUTPATIEN 7 7 MD RHIANNON, T VISIT PSC 15 MINUTES OFFICE 21212 [place] OUT[facility]IEN 7 7 [facility] T VISIT INC 10 MINUTES [facility] [place] [facility] OUTPATIEN INC T OFFICE 77651 [place] OUTPATIEN 7 7 [facility] T VISIT 5 INC MINUTES [facility] [place] [facility] OUTPATIEN INC T OFFICE 94973 [place] WEISS JR OUTPATIEN [address] [facility] VISIT HOSPITAL 10 P MINUTES [facility] [place] [facility] OUTPATIEN INC T EMERGENCY 93033 [facility] PASCUAL DEPT 7 7 PHYSICIAN VISIT S, PLLC HIGH SEVERITY& THREAT FUNCJ EMERGENCY 71723 [place] 7 7 [facility] DEPARTMEN INC T VISIT LOW/MODER SEVERITY OFFICE 80215 [place] ALATORRE OUTPATIEN [address] [facility] T VISIT HOSPITAL 10 P MINUTES [facility] [place] [facility] OUTPATIEN INC T [facility] [place] [facility] OUTPATIEN INC T EMERGENCY 22054 [place] 7 7 [facility] DEPARTMEN INC T VISIT HIGH/URGE NT SEVERITY [facility] [place] [facility] 7 7 [facility] OUTPATIEN INC T PERIODIC 44078 [facility] KAM PREVENTIV 7 7 PHYSICIAN E MED EST S GROUP PATIENT [id number] OFFICE 90979 LU[facility] MATUTE OUTPATIEN 7 7 [facility] T VISIT INTERNAL 15 MED MINUTES [facility] [place] [facility] OUTPATIEN INC T OFFICE 79003 [facility] MAEGAN OUTPATIEN 7 7 PHYSICIAN T VISIT S GROUP 15 MINUTES EMERGENCY 60914 [facility] JAQUEZ 7 7 PHYSICIAN DEPARTMEN S, [facility] T VISIT HIGH/URGE NT SEVERITY [facility] [place] [facility] OUTPATIEN INC T OFFICE 22514 [place] CELI OUTPATIEN [address] [facility] T VISIT HOSPITAL 10 P MINUTES [facility] [place] [facility] OUTPATIEN INC T OFFICE 27451 YVETTE RHIANNON OUTPATIEN 7 7 MD RHIANNON, T VISIT PSC 10 MINUTES [facility] [place] [facility] OUTPATIEN INC T [facility] [place] [facility] OUTPATIEN INC T OFFICE 77051 [facility] KIMBERLY OUTPATIEN 7 7 PHYSICIAN T VISIT S GROUP 25 MINUTES OFFICE 21735 YVETTEMoni AVINA OUTPATIEN 7 7 MD RHIANNON, T NEW 30 PSC MINUTES [facility] [place] [facility] OUTPATIEN INC T OFFICE 17946 [facility] ISSA OUTPATIEN 7 7 PHYSICIAN T VISIT S GROUP 10 MINUTES OFFICE 96331 [place] OUT[facility]IEN 7 7 [facility] T VISIT 5 INC MINUTES [facility] [place] [facility] T EMERGENCY 91740 [facility] SOTOMAYOR 7 7 PHYSICIAN JR RADHA Reddy [facility] T VISIT HIGH/URGE NT SEVERITY [facility] [place] [facility] T OFFICE 39440 [facility] [place] OUTPATIEN 7 7 PHYSICIAN T VISIT S GROUP 25 MINUTES OFFICE 81091 [place] [facility] [facility] 7 7 [place] T VISIT INTERNAL 15 MED MINUTES OFFICE 58739 [facility] [place] OUTPATIEN 7 7 PHYSICIAN T VISIT S GROUP 25 MINUTES [facility] [place] [facility] INC T OFFICE 39701 [facility] 7 7 [place] T VISIT ORTHOPAED 15 [facility] [place] [facility] 7 [facility] OUT[facility] INC T EMERGENCY 48120 [place] 7 7 [facility] DEPARTMEN INC T VISIT HIGH/URGE NT SEVERITY EMERGENCY 88456 [facility] ARMIJO DEPT 7 7 PHYSICIAN VISIT S, [facility] HIGH SEVERITY& THREAT FUN OFFICE 85722 [place] [facility] OUTPATI[facility] 7 7 [place] T VISIT INTERNAL 25 MED [facility] [place] [facility] 7 [facility] T OFFICE 78099 [place] [facility] 7 7 [facility] T [facility]ISIT 5 [facility] OFFICE 33177 [facility] 7 7 [place] T NEW 30 ORTHOPAED MINUTES IC EMERGENCY 15542 [facility] JIMENEZ DEPT 7 7 PHYSICIAN U VISIT S, [facility] HIGH SEVERITY& THREAT [facility] [place] [facility] 7 [facility] OUTPATI[facility] INC T EMERGENCY 21564 [place] 7 7 [facility] DEPART[facility] INC T VISIT LOW/MODER SEVERITY [facility] [place] [facility] OUT[facility] INC T EMERGENCY 25150 [place] 7 7 [facility] DE[facility] INC T VISIT MODERATE SEVERITY [facility] [place] [facility] T [facility] [place] [facility] INC T EMERGENCY 18907 [facility] PASCUAL 7 7 PHYSICIAN DEPARTMEN S, [facility] T VISIT HIGH/URGE NT SEVERITY EMERGENCY 95859 [place] 7 7 [facility] INC T VISIT LOW/MODER SEVERITY [facility] [place] [facility] OUT[facility] INC T OFFICE 31992 [place] [facility] 7 7 [facility] T [facility]ISIT 5 INC MINUTES OFFICE 87887 [place] [facility] 7 7 [facility] T VISIT INTERNAL 15 MED [facility] [place] - 7 7 [facility] T EMERGENCY 14690 [place] 7 7 [facility] T VISIT LOW/MODER SEVERITY EMERGENCY 15012 [facility] 7 7 [facility] EMERGENCY T VISIT PHYS MODERATE SEVERITY [facility] [place] [facility] 7 [facility] T OFFICE 17489 [place] [facility] 7 7 [facility] T VISIT 5 INC MINUTES OFFICE 92084 [place] [facility] 7 7 [facility] T VISIT INTERNAL 15 MED [facility] [place] [facility] 7 7 [facility] INC T OFFICE 03383 [place] [facility] 7 7 [facility] T VISIT 5 INC MINUTES EMERGENCY 55325 [facility] MEDEROS 7 7 PHYSICIAN DEPARTMEN S, [facility] T VISIT MODERATE SEVERITY OFFICE 02181 [place] [facility] 7 7 [facility] T V[facility]IT 5 [facility] [place] [facility] 7 [facility] INC [facility] [place] [facility] T OFFICE 50540 [place] [facility] 7 7 [facility] T NEW 10 INC MINUTES OFFICE 20287 [place] [facility] 7 7 [facility] T VISIT INTERNAL 25 MED MINUTES OFFICE 56262 [place] [facility] 7 7 T VISIT 25 MINUTES [facility] [place] - 7 7 [facility]ALTH OUTPATIEN [facility] EMERGENCY 59057 [place] 7 7 [facility] DEPARTMEN INC T VISIT LIMITED/M INOR [facility] [place] - 7 7 [facility] OUTPATIEN [facility] [place] [facility] 7 7 [facility]PATIEN [facility] EMERGENCY 30008 [place] 7 7 [facility] T VISIT LOW/MODER SEVERITY EMERGENCY 27336 SMI[facility] PASCUAL 7 7 PHYSICIAN [facility] S [facility] T VISIT MODERATE SEVERITY [facility] [place] [facility] 7 7 [facility] OUTPATIEN [facility] EMERGENCY 00953 [place] 7 7 [facility] T [facility]IT LIMITED/M INOR [facility] - 7 7 [facility] 7 [facility] [place] [facility] 6 [facility] 98676 SMILEY SOTOMAYOR, 6 6 PHYSICIAN [facility] T VISIT HIGH/URGE NT SEVERITY OFFICE 73126 [facility] 6 6 [facility] VISIT INTERNAL 15 MED MINUTES EMERGENCY 17897 S[facility] JAQUEZ 6 6 PHYSICIAN [facility] S [facility] T VISIT [facility]IGH/URGE NT [facility]ITY [facility] [place] 6 6 [facility] EMERGENCY 46461 [place] 6 6 [facility] T VISIT MODERATE SEVERITY EMERGENCY 39884 SMILEY ARMIJO 6 6 PHYSICIAN [facility] VISIT MODERATE SEVERITY EMERGENCY 25800 [place] 6 6 [facility] T VISIT LOW/MODER SEVERITY [facility] [place] [facility] 6 6 [facility] OUTPATIEN [facility] EMERGENCY 87496 SMILEY PASCUAL 6 6 PHYSICIAN [facility] T VISIT MODERATE SEVERITY OFFICE 94160 SCIFRES SCIFRES OUTPATIEN 6 6 ANG ANG T VISIT 10 MINUTES OFFICE 23521 [place] ARSLAN OUTPATIEN 6 6 [facility] OFELIA T VISIT INTERNAL 15 MED MINUTES OFFICE 66004 WENDY MARTINEZ OUTPATIEN 6 6 T VISIT BARIATRIC 25 SURGICAL MINUTES EMERGENCY 05373 SMILEY SOTOMAYOR, 6 6 PHYSICIAN JR [facility] T VISIT HIGH/URGE NT SEVERITY [facility] [place] [facility] 6 [facility] INC T EMERGENCY 68596 [place] 6 6 [facility] DEPARTMEN INC T VISIT LOW/MODER SEVERITY EMERGENCY 68659 SMILEY PASCUAL 6 6 [facility]IC[facility] T VISIT MODERATE SEVERITY OFFICE 70204 [facility] JULIAU OUTPATIEN 6 6 [facility] NACHO T VISIT MEDICAL 15 G MINUTES [facility] [place] [facility] 6 6 [facility] INC T OFFICE 25546 [facility] HUMPHREY OUTPATIEN 6 6 PHYSICIAN MEAGAN T VISIT S GROUP 15 MINUTES OFFICE 96747 [facility] MAEGAN OUTPATIEN 6 6 PHYSICIAN JARON T VISIT S GROUP 10 MINUTES [facility] [place] [facility] T [facility] [place] [facility] 6 [facility] [place] [facility] 6 [facility] INC T EMERGENCY 40679 [place] 6 6 [facility] DEPARTMEN INC T VISIT MODERATE SEVERITY OFFICE 81933 [facility] ISSA OUTPATIEN 6 6 PHYSICIAN JARON T VISIT S GROUP 10 MINUTES OFFICE 68173 [place] [facility]RE OUTPATIEN 6 6 [facility] HOSP[facility] 10 P MINUTES OFFICE 96038 DOMINICK ANDRES OUTPATIEN 6 6 HEALTH IV HEN T VISIT MEDICAL 15 GROUP MINUTES OFFICE 75350 PERLA RODRIGUEZ TRI OUTPATIEN 6 6 GROUND T VISIT FAMILY 25 CLINI MINUTES OFFICE 55885 [facility] T VISIT 5 HLTH DEPT HL DEPT MINUTES JAZZ JAZZ EMERGENCY 13790 [place] 6 6 [facility] DEPARTMEN INC T VISIT LOW/MODER SEVERITY [facility] [place] 6 6 [facility] OUT[facility] INC T EMERGENCY 47336 SMILEY ARMIJO 6 6 PHYSICIAN CASANDRA GARCIA [facility] T VISIT HIGH/URGE NT SEVERITY [facility] [place] [facility] 6 6 [facility] T OFFICE 93858 [facility] 6 [facility] T VISIT [facility] DE[facility] DEPT 15 JAZZ JAZZ MINUTES OFFICE 86586 [facility] KIMBERLY OUTPATIEN 6 6 PHYSICIAN JULIUS T VISIT S GROUP 25 MINUTES OFFICE 31197 [facility] 6 T VISIT BARIATRIC 25 SURGICAL MINUTES EMERGENCY 01825 SMILEY PASCUAL 6 6 PHYSICIAN BRYCE GARCIA [facility] T VISIT MODERATE SEVERITY OFFICE 94321 [facility] KIMBERLY OUTPATIEN 6 6 PHYSICIAN JULIUS Ng NEW 45 S GROUP MINUTES EMERGENCY 84809 S[place] JIMENEZ 6 6 PHYSICIAN Taylor GARCIA [facility] T VISIT HIGH/URGE NT SEVERITY [facility] [place] [facility] 6 6 [facility] OUTPATIEN INC T OFFICE 08712 ALLERGY ROSENTHAL MAR OUTPATIEN 6 6 PARTNERS T VISIT OF [place] 40 CO MINUTES [facility]OSP[facility] [place] [facility] 6 6 [facility] OUTPATIEN INC T EMERGENCY 39249 [place] 6 6 [facility] DEPARTMEN INC T VISIT LOW/MODER SEVERITY EMERGENCY 64153 SMILEY PASCUAL 6 6 PHYSICIAN BRYCE DEPARTMEN S, PLLC T VISIT MODERATE SEVERITY OFFICE 05602 [facility] OUTPATIEN 6 6 N T VISIT NEUROLOGY 10 MINUTES [facility] [place] [facility] 6 6 [facility] OUT[facility] INC T EMERGENCY 03638 SMILEY SOTOMAYOR, 6 6 PHYSICIAN JR MANUELITO FUENTESMEN S, PLLC T VISIT MODERATE SEVERITY [facility] [place] - 6 6 [facility] OUTPATIEN INC T EMERGENCY 01351 SMILEY PASCUAL DEPT 6 6 PHYSICIAN BRYCE VISIT S, PLLC HIGH SEVERITY& THREAT FUN OFFICE 51491 [place] [facility] OUTPATI[facility] 6 6 [facility] VISIT HOSPITAL 10 P MINUTES EMERGENCY 68273 [place] 6 6 [facility] DEPARTMEN INC T VISIT MODERATE SEVERITY EMERGENCY 84401 SMILEY SOTOMAYOR, 6 6 PHYSICIAN JR MANUELITO FUENTESMEN S, PLLC T VISIT HIGH/URGE NT SEVERITY [facility] [place] - 6 6 [facility] OUTPATIEN INC T OFFICE 28250 [place] WE[facility] JR OUTPATIEN 6 6 [facility] T VISIT HOSPITAL 10 P MINUTES EMERGENCY 84294 SMILEY PASCUAL DEPT 6 6 PHYSICIAN BRYCE VISIT S, PLLC HIGH SEVERITY& THREAT [facility] OFFICE 45706 ALLERGY ROSENTHAL MAR CONSULTAT 6 6 PARTNERS [facility] [place] NEW/ESTAB CO PATIENT 60 MIN EMERGENCY 99986 SMILEY PASCUAL 6 6 PHYSICIAN BRYCE DEPARTMEN S, PLLC T VISIT MODERATE SEVERITY EMERGENCY 12581 SMILEY PASCUAL DEPT 6 6 PHYSICIAN BRYCE VISIT S, PLLC HIGH SEVERITY& THREAT FUNJ [facility] [place] [facility] 6 6 [facility] OUT[facility]EN INC T OFFICE 23853 [facility] OUTPATIEN 6 6 PHYSICIAN T VISIT S GROUP 25 MINUTES EMERGENCY 17393 SMILEY SUGGS [facility] 6 6 PHYSICIAN DEPARTMEN S, PLLC T VISIT LOW/MODER SEVERITY EMERGENCY 22799 SMILEY PASCUAL 6 6 PHYSICIAN BRYCE DEPARTMEN S, PLLC T VISIT MODERATE SEVERITY EMERGENCY 51106 [place] 6 6 [facility] DEPARTMEN INC T VISIT LOW/MODER SEVERITY [facility] [place] [facility] 6 6 [facility]PAT[facility]EN [facility] T [facility] - 6 6 N OUTPATIEN COMMUNTIY T HOSPITA OFFICE 08552 [facility] ISSA OUTPATIEN 6 6 PHYSICIAN JARON T NEW 20 S GROUP MINUTES EMERGENCY 62885 SMILEY ARMIJO DEPT 6 6 PHYSICIAN CASANDRA VISIT S, PLLC HIGH SEVERITY& THREAT FUNJ EMERGENCY 88652 SMILEY PASCUAL 6 6 PHYSICIAN BRYCE DEPARTMEN S, PLLC T VISIT HIGH/URGE NT SEVERITY HOSPITAL [facility] 6 6 N OUTPATIEN COMMUNTIY T HOSPITA EMERGENCY 38157 SMILEY PASCUAL DEPT 6 6 PHYSICIAN BRYCE VISIT S, PLLC HIGH SEVERITY& THREAT FUNCJ OFFICE 55917 [facility] OUTPATI[facility] 6 6 T VISIT BARIATRIC 25 SURGICAL MINUTES EMERGENCY 21238 ANGELITO [facility]UMONT 6 6 EMERGENCY HOW DEPARTMEN PHYS PSC T VISIT MODERATE SEVERITY HOSPITAL [facility] - 6 6 HEALTH OUTPATIEN [place] [facility] [place] - 6 6 [facility] OUTPATIEN INC T EMERGENCY 87112 SMILEY BAGLEY DEPT 6 6 PHYSICIAN FOR VISIT S, PLLC HIGH SEVERITY& THREAT FUNCJ EMERGENCY 14283 [place] 6 6 [facility] DEPARTMEN INC T VISIT LOW/MODER SEVERITY [facility] [place] [facility] 6 6 [facility] OUTPATIEN INC T EMERGENCY 42251 SMILEY PASCUAL 6 6 PHYSICIAN BRYCE DEPARTMEN S, PLLC T VISIT HIGH/URGE NT SEVERITY EMERGENCY 88505 SMILEY SUGGS [facility] 6 6 PHYSICIAN DEPARTMEN S, PLLC T VISIT HIGH/URGE NT SEVERITY EMERGENCY 34280 [facility] 6 6 [place]AL[place] JOSE ANGEL DEPARTMEN EMERGENCY T VISIT PHYS HIGH/URGE NT SEVERITY [facility]OSPITAL [facility] - 6 6 N OUTPATIEN COMMUNTIY T [facility] [place] - 6 6 [facility] OUTPATIEN INC T EMERGENCY 16238 [place] DEPT 6 6 [facility] VISIT INC HIGH SEVERITY& THREAT FUNCJ OFFICE 28406 [facility] CONSULT 6 6 N ION NEUROLOGY NEW/ESTAB PATIENT 60 MIN OFFICE 34854 [facility] OUTPATIEN 6 6 MATTI MATTI T NEW 30 MINUTES OFFICE 13945 SCALF LEI SCALF LEI OUTPATIEN 6 6 T VISIT 25 MINUTES EMERGENCY 82307 SMILEY PASCUAL DEPT 6 6 PHYSICIAN BRYCE VISIT S, PLLC HIGH SEVERITY& THREAT FUNCJ OFFICE 99211 [place] ARSLAN OUTPATIEN 6 6 [facility] T VISIT INTERNAL 15 MED [facility] - 6 6 HEALTH OUTPATIEN [facility] [place] [facility] 6 6 [facility] OUTPATIEN INC T EMERGENCY 36344 SMILEY PASCUAL DEPT 6 6 PHYSICIAN BRYCE VISIT S, PLLC HIGH SEVERITY& THREAT FUNCJ OFFICE 12759 [facility] BOLIEK OUTPATIEN 6 6 HEALTH KADIE T VISIT MEDICAL 15 GROUP MINUTES OFFICE 20002 [facility] SANCHEZ MICHELLE OUTPATIEN 6 6 T VISIT BARIATRIC 25 SURGICAL MINUTES [facility] [place] [facility] 6 6 [facility] OUTPATIEN INC T OFFICE 22552 [place] ARSLAN OUTPATIEN 6 6 [facility] OFELIA T VISIT INTERNAL 15 MED MINUTES INITIAL 34504 [facility] PREVENTIV 6 6 PHYSICIAN E S GROUP MEDICINE NEW PATIENT 40-64YRS OFFICE 06605 MORAVIAN BOLIEK OUTPATIEN 6 6 PRIMARY KADIE T VISIT CARE OF 15 ABISAI [facility] [place] - 6 6 [facility] OUTPATIEN INC T OFFICE 50143 [place] ARSLAN OUTPATIEN 6 6 [place] OFELIA T VISIT INTERNAL 15 MED [facility] [place] - 6 6 [facility] OUTPATIEN INC T OFFICE 18498 WENDY SANCHEZ MICHELLE OUTPATIEN 5 5 T VISIT BARIATRIC 25 SURGICAL MINUTES OFFICE 99698 ATKINS ATKINS OUTPATIEN 5 5 TRA TRA T VISIT 25 MINUTES PERIODIC 92964 [facility] E MED EST HLTH DEPT HLTH DEPT PATIENT JAZZ SCHULZ 40-64YRS OFFICE 41237 WENDY SANCHEZ MICHELLE OUTPATIEN 5 5 T VISIT BARIATRIC 15 SURGICAL [facility] [place] - 5 5 [facility] OUTPATIEN INC T OFFICE 13951 [place] ARSLAN OUTPATIEN 5 5 [facility] OFELIA T NEW 30 INTERNAL MINUTES [facility] [place] - 5 5 [facility] OUTPATIEN INC T OFFICE 96620 [facility] PET[facility] OUTPATIEN 5 5 PHYSICIAN JAM T VISIT S GROUP 15 MINUTES OFFICE 31646 GASTROENT CASE JUS OUTPATIEN 5 5 EROLOGY T VISIT AND 15 HEPATOL MINUTES OFFICE 50460 MORAVIANBerenice [facility] OUTPATIEN 5 5 HEALTH KADIE T VISIT MEDICAL 10 GROUP MINUTES [facility] - 5 5 N OUTPATIEN COMM[facility]TIY [facility] 81953 SMILEY HUTCHISON 5 5 PHYSICIAN TAQUERIA HOWE T VISIT HIGH/URGE NT SEVERITY [facility] [place] [facility] 5 5 [facility] OUTPATIEN INC [facility] - 5 5 N OUTPATIEN COMMUNTIY T [facility] [place] - 5 5 [facility] OUTPATIEN [facility] T OFFICE 45423 GASTROENT CASE JUS OUTPATIEN 5 5 EROLOGY T NEW 45 AND MINUTES HEPATOL EMERGENCY 00156 [place] SOTOMAYOR, 5 5 [facility] T VISIT P LOW/MODER SEVERITY [facility]OSP[facility] [place] - 5 5 [facility] OUTPATIEN [facility] T OFFICE 50322 DANIEL SANCHEZ OUTPATIEN 5 5 HUBER HUBER T VISIT 15 MINUTES EMERGENCY 79099 [place] SOTOMAYOR, 5 5 [facility] T VISIT P MODERATE SEVERITY [facility] [place] [facility] 5 5 [facility]EN [facility] - 5 5 N OUTPATIEN COMMUNTIY [facility] 5 5 N OUTPATIEN COMMUNTIY [facility] - 5 5 N INPATIENT COMMUNTIY [facility] [place] [facility] 5 5 [facility] OUTPATIEN INC T OFFICE 49860 WENDY MARTINEZ OUTPATIEN 5 5 T VISIT BARIATRIC 40 SURGICAL MINUTES OFFICE 68874 DANIEL TOLEDOPATIEN 5 5 HUBER HUBER T VISIT 15 MINUTES EMERGENCY 65202 [place] 5 5 [facility] DEPARTMEN INC T VISIT LOW/MODER SEVERITY [facility] [place] [facility] 5 5 [facility] OUTPATIEN INC T [facility] [place] [facility] 5 5 [facility] OUTPATIEN INC T [facility] [place] - 5 5 N OUTPATIEN COMM[facility]TIY [facility] [place] [facility] OUTPATIEN INC T OFFICE 35089 [place] CELI OUTPATIEN 5 5 [place] [address] HOSPITAL MINUTES P [facility]OS[facility] [place] [facility] 5 5 [facility] OUTPATIEN INC T OFFICE 53129 MELANIE NOGUEIRA OUTPATIEN 5 5 MEDICAL JAM T VISIT SERV 15 FOUNDATIO MINUTES N OFFICE 59920 [place] ISELA RIVERS OUTPATIEN [address] MINUTES P OFFICE 61474 [facility] OUTPATIEN 5 5 PHYSICIAN JAM T NEW 30 S GROUP MINUTES OFFICE 35366 [facility] CONSULTAT 5 5 [facility] NEW/ESTAB G PATIENT 60 MIN OFFICE 97100 DANIEL CHAND 5 5 HUBER HUBER T VISIT 15 MINUTES EMERGENCY 61049 [place] SECOTO 5 5 [facility] T VISIT P MODERATE SEVERITY [facility] [place] - 5 5 [facility] OUTPATIEN INC T EMERGENCY 38235 [place] 5 5 [facility] DEPARTMEN INC T VISIT HIGH/URGE NT SEVERITY [facility] [place] - 5 5 [facility] OUTPATIEN INC T EMERGENCY 74386 [place] 5 5 [facility] DEPARTMEN INC T VISIT HIGH/URGE NT SEVERITY OFFICE 66972 DANIEL CHAND 5 5 HUBER HUBER T VISIT 15 MINUTES OFFICE 99089 DANIEL CHAND 4 4 HUBER HUBER T VISIT 15 MINUTES EMERGENCY 85439 [place] 4 4 [facility] INC T VISIT LOW/MODER SEVERITY [facility] [place] - 4 4 [facility] OUTPATIEN INC T OFFICE 05534 [place]ANDOB[place] DANIEL CHAND 4 4 HUBER HUBER T VISIT 15 MINUTES [facility] [place] - 4 4 [facility] OUTPATIEN INC T EMERGENCY 33704 [facility] 4 4 ROSAL[place] VISIT EMERGENCY [facility]IGH PHYS SEVERITY& THREAT [facility] - 4 4 N OUTPATIEN [facility] HOSPITA OFFICE 64858 DANIEL CHAND 4 4 HUBER HUBER T VISIT 15 MINUTES OFFICE 70406 MONALISA CHAPIN CONSULTAT 4 4 KADIE ION CARDIOLOG NEW/ESTAB Y AT CENT PATIENT 40 MIN OFFICE 44303 IN JERO CONSULTAT 4 4 MEDICAL JAM ION SERV NEW/ESTAB FOUNDATIO PATIENT N 60 MIN [facility] [place] - 4 4 [facility] OUTPATIEN [facility] [place] - 4 4 [facility] OUTPATIEN INC T OFFICE 67010 DANIEL CHAND 4 4 HUBER HUBER T VISIT 15 MINUTES OFFICE 68873 [facility] OUTPATIEN 4 4 [facility] N[facility]O T VISIT MEDICAL 15 G MINUTES OFFICE 92722 ATKINS ATKINS CONSULTAT 4 4 TRA TRA ION NEW/ESTAB PATIENT 40 MIN [facility] [place] - 4 4 [facility] OUTPATIEN INC T OFFICE 15971 [facility] FALLUJI OUTPATIEN 4 4 [facility]ALTH NACHO T NEW 30 MEDICAL MINUTES G EMERGENCY 80895 [facility] DEPT 4 4 ROSALEE MOH VISIT EMERGENCY HIGH PHYSI SEVERITY& THREAT FUN EMERGENCY 29856 [place] 4 4 [facility] DEPARTMEN INC T VISIT MODERATE SEVERITY [facility] [place] - 4 4 [facility] OUTPATIEN INC T EMERGENCY 56797 HORTENCIA HUGHES DEPT 4 4 VISIT HIGH SEVERITY& THREAT FUNCJ EMERGENCY 84196 ANKUR PASCUAL DEPT 4 4 BRYCE BRYCE VISIT HIGH SEVERITY& THREAT FUNJ EMERGENCY 47193 [place] 4 4 [facility] DEPARTMEN INC T VISIT HIGH/URGE NT SEVERITY [facility] [place] - 4 4 [facility] OUTPATIEN INC T OFFICE 02966 DANIEL SANCHEZ OUTPATIEN 4 4 HUBER HUBER T VISIT 15 MINUTES OFFICE 78601 SANCHEZ MICHELLE SANCHEZ MICHELLE CONSULTAT 4 4 ION NEW/ESTAB PATIENT 80 MIN OFFICE 59039 DANIEL SANCHEZ OUTPATIEN 4 4 HUBER HUBER T NEW 30 MINUTES [facility] [place] [facility] 4 4 [facility] OUTPATIEN INC T OFFICE 17472 ISSA ISSA OUTPATIEN 4 4 JARON JARON T VISIT 5 MINUTES OFFICE 00677 ISS[facility] ISSA OUTPATIEN 4 4 JARON JARON T NEW 30 MINUTES Emergency PATRIC Burnett MD (ER) 4 16:35 4 17:31 [facility] PATRIC BURNETT (ER) 3 16:45 3 18:19 [facility] EMERGENCY 50455 [place] 9 9 [facility] DEPARTMEN INC T VISIT LOW/MODER SEVERITY EMERGENCY 24816 KIMBERLEE PASCUAL, 9 9 [facility] T VISIT ON HIGH/URGE NT SEVERITY [facility] [place] [facility] 9 9 [facility] OUTPATIEN INC T
--- OUTSIDE RECORDS SUMMARY | 2017-09-10 00:42 | External Medical Summary Rpt | CCD ---
Author Author , YENNY Organization YENNY Address Unknown Phone [email or web address] Care Team Providers Care Composing Room Supervisor Name Role Phone ALFARIS MOH, ALFARIS Unavailable Unavailable MOH [facility] Un[facility] [place]available [place], [facility] [place] YVETTE JURAOD MD, PSC, Unavailable Unavailable YVETTE JURADO MD, PSC ARNOLD HUBER, ARNOLD Unavailable Unavailable HUBER ARNOLD HUBER, ARNOLD Unavailable Unavailable HUBER ATKINS TRA, ATKINS Unavailable Unavailable TRA ATKINS TRA, ATKINS Unavailable Unavailable TRA [facility] Unavailable Unavailable [facility], [facility] Unavailable Unavailable MEDICAL GROUP, [facility] Un[facility] Unavailable [facility], [facility] Unavailable Unavailable OF ABISAI, [facility] BEMICHAEL, BEINEKE Unavailable Unavailable BEINEKE D, BEINEKE D Unavailable Unavailable BEINEKE CARMEN, BEINEKE Unavailable Unavailable CARMEN DUMONT HOW, DUMONT Unavailable Unavailable HOW BESSON, BESSON Unavailable Unavailable BESSON DOMINIQUE, BESSON Unavailable Unavailable DOMINIQUE [facility] Unavailable Unavailable [facility], [facility] BOLIEK KADIE, BOLIEK Unavailable Unavailable KADIE CERRATO, CERRATO Unavailable Unavailable CERRATO ALL, CERRATO ALL Unavailable Unavailable [facility] Unavailable Unavailable HOSPITAL, [facility] Unavailable Unavailable SERVICE, [facility] Unavailable Unavailable SERVICE, [facility] BUX, BUX Unavailable Unavailable SVITLANA KILO, SVITLANA Unavailable Unavailable KILO CASE JUS, CASE JUS Unavailable Unavailable [facility] Un[facility] Unavailable [facility]YS [facility], [facility] Un[facility] Unavailable ANESTHESIA, [facility] CHESTNUT, CHESTNUT Unavailable Unavailable HUMPHREY, HUMPHREY [...] AND Unavailable Unavailable [facility]PATOL, [facility] Unavailable Unavailable HOSPITA, [facility] Unavailable Unavailable HOSPITA, [facility], Unavailable Unavailable [facility] RODRIGUEZ TRI, RODRIGUEZ TRI Unavailable Unavailable ANDREWS RHO, ANDREWS Unavailable Unavailable [facility] Unavailable Unavailable CENTER, [facility] Unavailable Unavailable INC, [facility] Unavailable Unavailable HOSPITAL P, [facility] BOYER CHRISTEL, BOYER CHRISTEL Unavailable Unavailable [facility], Unavailable Unavailable [facility] JAQUEZ, JAQUEZ Unavailable Unavailable VAUGHN TERA, VAUGHN Unavailable Unavailable TERA ADAMS, ADAMS Unavailable Unavailable [facility] ROT, Unavailable Unavailable [facility] FELICIA DUARTE Unavailable Unavailable [facility] Unavailable Unavailable GROUP PS, [facility] Unavailable Unavailable [facility], [facility] Unavailable Unavailable MEDICAL G, [facility] MEDICAL G KRASNOPOLSKY LAUREN, Unavailable [...] JR DWI, SCOTT Unavailable Unavailable JR DWI [facility] Un[facility] Unavailable [facility],, [facility], [facility] Unavailable Unavailable INTERNAL MED, [facility] BRITTNY, BRITTNY Unavailable [...] #591 WALKER FOR, WALKER Unavailable Unavailable FOR [facility] Unavailable Unavailable DEPT [facility], [facility] DEPT [facility] Unavailable Unavailable DEPT JAZZ, [facility] DEPT [facility]ZZ SANCHEZ, SANCHEZ Unavailable [...] HOSP INC R51 HEADACHE 07-15-2017 [facility] SHERIFF, [facility] [id number] OTHER LONG 07-15-2017 [place] TERM [facility] CURRENT INC DRUG THERAPY J309 ALLERGIC 07-11-2017 [facility] RHINITIS PHYSICIANS UNSPECIFIED GROUP J320 CHRONIC 07-11-2017 [facility] MAXILLARY PHYSICIANS SINUSITIS GROUP Z1231 ENCOUNTER 07-09-2017 [place] SCREENING MEDICAL MAMMO MALIG IMAGING ASS NEOPLASM BREAST E6601 MORBID 07-08-2017 [facility] SEVERE [facility] OBESITY DUE MEDICAL TO EXCESS GROUP CALORIES K5900 CONSTIPATIO 07-08-2017 [facility] N HEALTH UNSPECIFIED MEDICAL GROUP R0981 NASAL 07-08-2017 [facility] SHERIFF, [facility] R110 NAUSEA 07-08-2017 [facility] R635 ABNORMAL 07-08-2017 [facility] WEIGHT [facility] MEDICAL GROUP Z6841 BODY MASS 07-08-2017 [facility] INDEX BMI HEALTH 40.0-44.9 MEDICAL ADULT GROUP [id number] BARIATRIC 07-08-2017 [facility] SURGERY [facility] R202 PARESTHESIA 07-07-2017 [facility] SKIN NEUROLOGY W85123 UNSPECIFIED 06-30-2017 [facility] ASTHMA PHYSICIANS, [facility]PLICAT [facility] H524 PRESBYOPIA 06-27-2017 SCIFRCANELO Z539 PROCEDURE & 06-26-2017 [facility] TREATMENT HEALTH NOT CARRIED [place] OUT UNS REASON B370 CANDIDAL 06-22-2017 [place] STOMATITIS [facility] INC R1084 GENERALIZED 06-20-2017 [facility] ABDOMINAL PHYSICIANS, PAIN PLLC R109 UNSPECIFIED 06-20-2017 [place] ABDOMINAL MEDICAL PAIN IMAGING ASS R140 ABDOMINAL 06-20-2017 [place] DISTENSION MEDICAL GASEOUS IMAGING ASS J3501 CHRONIC 06-19-2017 [facility] TONSILLITIS PHYSICIANS GROUP J301 ALLERGIC 06-11-2017 [facility] RHINITIS [facility] OF DUE TO [place] POLLEN J3081 ALLERG 06-11-2017 [facility] RHINITIS PART[facility] OF D/T ANIMAL [place] CAT DOG HAIR & DANDER J3089 OTHER 06-11-2017 [facility]GIC [facility] RHINITIS [place] J4530 MILD 06-11-2017 [facility] PERSISTENT [facility] OF ASTHMA [place] UNCOMPLICAT ED [id number] OTHER 06-11-2017 [facility] ASTHMA EQUIPMENT INC T23266 ALLERGY TO 06-11-2017 [facility] OTHER FOODS [facility] [place] R002 PALPITATION 06-10-2017 [facility] P [id number] UNS INJURY 06-10-2017 [facility] LOWER MEDICAL LEG INITIAL IMAGING ASS ENCOUNTER R079 CHEST PAIN 06-04-2017 [place] UNSPECIFIED MAHNOMEN INTERNAL MED R1371XH SPRAIN 06-01-2017 [facility] UNSPECIFIED [facility] P KNEE INITIAL ENCNTR [id number] UNS ADVERS 06-01-2017 [facility] EFFECT PHYSICIANS, DRUG/MEDICA PLL MENT INITIAL ENCNTR [id number] FALL SAME 06-01-2017 [facility] YO SLIP [facility] P FURN INITIAL ENC Q29497 BEDROOM 06-01-2017 [facility] P OCCUR EXT CAUSE E785 HYPERLIPIDE 05-19-2017 [facility] LILIANE [place] UNSPECIFIED ANESTHESIA K449 DIAPHRAGMAT 05-19-2017 [facility] IC HERNIA [place] W/O ANESTHESIA OBSTRUCTION OR GANGRENE R1310 DYSPHAGIA 05-19-2017 [facility] UNSPECIFIED PHYS SURG CTR J069 ACUTE UPPER 05-05-2017 [facility] HOSP RESPIRATORY INC INFECTION UNSPECIFIED R072 PRECORDIAL 05-05-2017 [facility] , R0789 OTHER CHEST 05-04-2017 [facility] PAIN PHYSICIANS, SILVIOC Z809 FAMILY 05-04-2017 [place] HISTORY OF [facility] MALIGNANT INC NEOPLASM UNSPECIFIED Z8249 FAMILY HX 05-04-2017 [facility] ISCHEMIC [facility] HRT DZ OT HOSPITAL P DZ CIRC SYSTEM Z833 FAMILY 05-04-2017 [place] HISTORY OF [facility] DIABETES [facility] P MELLITUS O61166 ENCOUNTER 04-30-2017 [facility] FOR HEALTH PREPROCEDUR [facility] CARIOVASCUL AR EXAM S89679 ENCOUNTER 04-30-2017 [facility] FOR HEALTH PREPROCEDUR [facility] LABORATORY EXAM B977 PAPILLOMAVI 04-29-2017 [facility], RAJ CAUSE LLC OF DZ CLASSIFIED ELSEWHERE N870 MILD 04-29-2017 [facility], CERVICAL LLC DYSPLASIA B74260 ATYP SQ 04-29-2017 [facility] CELLS UNDET PHYSICIANS GROUP SIGNIFICANC E CYTOL SMER CERV D24872 CERV HIGH 04-29-2017 [facility] RSK HUMAN PHYSICIANS PAPILLOMAVI GROUP RAJ DNA TEST POS 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 04-10-2017 [facility] OF HEALTH ESOPHAGUS [facility] W63812 DECREASED 04-09-2017 [facility] WHITE BLOOD [facility] CELL COUNT [facility] P UNSPECIFIED R1319 OTHER 04-08-2017 [facility] DYSPHAGIA HEALTH MEDICAL GROUP [id number] SPONDYLOSIS 04-07-2017 YVETTE JURADO W/O , PSC MYELOPATH/R ADICULOPATH Y LUMB RGN M479 SPONDYLOSIS 04-07-2017 [facility] HOSP UNSPECIFIED INC 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, PSC RAL DISC DEGEN LUMBAR REGION R350 FREQUENCY 03-27-2017 [facility] MICTURITION [facility] P R3915 URGENCY OF 03-27-2017 [facility] URINATION [facility] P R200 ANESTHESIA 03-25-2017 [place] OF SKIN MEDICAL IMAGING ASS R42 DIZZINESS 03-25-2017 [place] AND MEDICAL GIDDINESS IMAGING ASS D709 NEUTROPENIA 03-24-2017 [facility] P [id number] ADVERSE EFF 03-22-2017 [facility] DS SYNTH ANALOG INIT ENC [id number] ADVERS EFF 03-22-2017 [facility] RX MEDS [facility] BIO INC SUBSTANCES INIT ENC W05621 OTHER 03-21-2017 [place] SPONDYLOSIS [facility] LUMBAR INC REGION M5116 INTERVERTEB 03-21-2017 [place] RAL DISC [facility] D/O INC W/RADICULOP ATHY LUMB RGN E04225 ENCOUNTER 03-19-2017 [facility], CHIP APPLYING MACHINE TENDER EXAM LLC GENERAL RTN W/ABNORMAL FIND M25937 ENCOUNTER 03-19-2017 [facility] CHIP APPLYING MACHINE TENDER EXAM PHYSICIANS GENERAL RTN GROUP W/O ABNORMAL FIND H6982 OTHER SPEC 03-13-2017 [facility] DISORDERS PHYSICIANS EUSTACHIAN GROUP TUBE LT EAR 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[facility] UNI LT EAR PHYSICIANS UNRESTIRCT GROUP CONTRALAT SIDE R300 DYSURIA 03-12-2017 [facility] PHYSICIANS, [facility] M4726 OT 03-03-2017 [place] SPONDYLOSIS [facility] INC W/RADICULOP ATHY LUMBAR REGION N390 URINARY 03-03-2017 [place] TRACT [facility] INFECTION INC SITE NOT SPECIFIED R911 SOLITARY 02-27-2017 [place] PULMONARY MEDICAL NODULE IMAGING ASS Z09 ENC F/U 02-27-2017 [place] EXAM AFTR MEDICAL CMPL TX OTH IMAGING ASS THAN MALIG NEOPLSM E669 OBESITY 02-25-2017 [facility] UNSPECIFIED PHYSICIANS GROUP I119 HYPERTENSIV 02-25-2017 [facility] E HEART PHYSICIANS DISEASE GROUP WITHOUT HEART FAILURE R0600 DYSPNEA 02-25-2017 [facility] UNSPECIFIED PHYSICIANS GROUP J310 CHRONIC 02-17-2017 [facility] RHINITIS PHYSICIANS GROUP J329 CHRONIC 02-17-2017 [facility] SINUSITIS PHYSICIANS UNSPECIFIED GROUP J342 DEVIATED 02-17-2017 [facility] NASAL PHYSICIANS SEPTUM GROUP M5416 RADICULOPAT 02-17-2017 [place] HY LUMBAR [facility] REGION INC M545 LOW BACK 02-17-2017 YVETTE JURADO, PAIN , PSC I998 OTHER 02-11-2017 [place] DISORDER OF [facility] INC CIRCULATORY SYSTEM R0602 SHORTNESS 02-11-2017 [place] OF BREATH [facility] INC G8929 OTHER 02-10-2017 [place] CHRONIC VALLEY PAIN INTERNAL MED R76958 PAIN IN 02-10-2017 [place] LEFT [place]LEY SHOULDER INTERNAL MED M5440 LUMBAGO 02-10-2017 [place] WITH VALLEY SCIATICA INTERNAL UNSPECIFIED MED SIDE R5383 OTHER 01-31-2017 [facility] FATIGUE PHYSICIANS GROUP M792 NEURALGIA 01-27-2017 [place] AND VALLEY NEURITIS INTERNAL UNSPECIFIED MED I10 ESSENTIAL 01-26-2017 [place] PRIMARY [facility] HYPERTENSIO INC N M542 CERVICALGIA 01-26-2017 [facility] INC X76188 SPONDYLOSIS 01-22-2017 [place] W/O MEDICAL MYELOPATH/R IMAGING ASS ADICULOPATH Y CERV RGN [id number] STRAIN 01-22-2017 [facility] MUSCLE FASC PHYSICIANS, & TENDON PLLC NECK LEVL INIT ENC U59191R STRAIN 01-16-2017 [facility] MUSCLE & PHYSICIANS, TENDON UNS PLLC WALL THORAX INIT ENC Z882 ALLERGY 01-11-2017 [place] STATUS TO [facility] S STATUS Z886 ALLERGY 01-11-2017 [place] [facility] AGENT STATUS Z888 ALLERGY 01-11-2017 [place] STATUS OTH [facility] BIOLOG SUBSTAN STS H9203 OTALGIA 01-10-2017 [place] BILATERAL [facility] INC I209 ANGINA 01-10-2017 [place] PECTORIS [facility] UNSPECIFIED INC R071 CHEST PAIN 01-07-2017 [place] ON MAHNOMEN BREATHING INTERNAL MED Z720 TOBACCO USE 01-04-2017 [facility] INC [id number] MUSCLE 12-25-2016 [place] SPASM OF [facility] BACK INC R1013 EPIGASTRIC 12-25-2016 [place] PAIN MAHNOMEN INTERNAL MED R4702 DYSPHASIA 12-25-2016 [place] MAHNOMEN INTERNAL MED B078 OTHER VIRAL 12-23-2016 [facility] WARTS K30 FUNCTIONAL 12-23-2016 [facility] DYSPEPSIA [facility] L218 OTHER 12-23-2016 [facility] SEBORRHEIC DERMATITIS L538 OTHER 12-23-2016 [facility] SPECIFIED ERYTHEMATOU S CONDITIONS R208 OTHER 12-23-2016 [facility] DISTURBANCE S OF SKIN SENSATION R238 OTHER SKIN 12-23-2016 [facility] CHANGES K5903 DRUG 12-17-2016 [place] INDUCED [facility] CONSTIPATIO INC N [id number] ADVERSE 12-17-2016 [place] EFFECT [facility] OTHER INC OPIOIDS INITIAL ENCOUNTER K910 VOMITING 12-12-2016 [place] FOLLOWING [facility] GASTROINTES INC TINAL SURGERY R600 LOCALIZED 12-12-2016 [facility] EDEMA PHYSICIANS, PLLC R609 EDEMA 12-12-2016 [place] UNSPECIFIED [facility] INC C07739 OTHER 12-12-2016 [place] SPECIFIED MEDICAL POSTPROCEDU IMAGING ASS RAL STATES N393 STRESS 12-11-2016 [facility] INCONTINENC HEALTH E FEMALE [place] MALE Z903 ACQUIRED 12-11-2016 [facility] ABSENCE OF HEALTH STOMACH MONALISA U76695 ENCOUNTER 12-05-2016 [facility] FOR OTHER HEALTH PREPROCEDUR MEDICAL AL GROUP EXAMINATION K210 GASTRO-ESOP 11-22-2016 [facility] HAGEAL PHYSICIANS, REFLUX PLLC DISEASE W/ ESOPHAGITIS K625 HEMORRHAGE 11-19-2016 [place] OF ANUS AND VALLEY RECTUM INTERNAL MED M546 PAIN IN 11-08-2016 [facility] THORACIC PHYSICIANS, SPINE PLLC O79127 PAIN IN 10-14-2016 [place] UNSPECIFIED MEDICAL HIP IMAGING ASS M533 SACROCOCCYG 10-14-2016 [place] EAL MEDICAL DISORDERS IMAGING ASS NEC M051ZHN CONTUSION 10-14-2016 [facility] LOWER BACK PHYSICIANS, & PELVIS PLLC INITIAL ENCOUNTER B7018XQ UNSPECIFIED 10-14-2016 [place] INJURY MEDICAL LOWER BACK IMAGING ASS INITIAL ENCOUNTER Q5931GV UNSPECIFIED 10-14-2016 [place] INJURY OF MEDICAL PELVIS IMAGING ASS INITIAL ENCOUNTER H3581 RETINAL 10-11-2016 [facility] ANG EDEMA R040 EPISTAXIS 10-10-2016 [place] MAHNOMEN INTERNAL MED E6609 OTHER 10-08-2016 [facility] OBESITY DUE BARIATRIC TO EXCESS SURGICAL CALORIES J3489 OTHER 10-06-2016 [facility] SPECIFIED PHYSICIANS, DISORDERS PLLC NOSE AND NASAL SINUSES R05 COUGH 10-06-2016 [place] MEDICAL IMAGING ASS A6004 HERPESVIRAL 09-27-2016 [facility] PHYSICIANS VULVOVAGINI GROUP TIS N760 ACUTE 09-27-2016 [facility] VAGINITIS PHYSICIANS GROUP [id number] CONCUSSION 09-21-2016 [place] WITHOUT LOC [facility] INITIAL INC ENCOUNTER H6249PR UNSPECIFIED 09-21-2016 [place] INJURY OF MEDICAL HEAD IMAGING ASS INITIAL ENCOUNTER H6903 PATULOUS 09-19-2016 ISS[facility] JARON EUSTACHIAN TUBE BILATERAL T91587 UNSPECIFIED 09-18-2016 [facility] PHYSICIANS OBSTRUCTION GROUP EUSTACHIAN TUBE BILAT R590 LOCALIZED 09-04-2016 [facility] P Z6834 BODY MASS 09-04-2016 [facility] INDEX BMI HEALTH 34.0-34.9 MEDICAL ADULT GROUP K5909 OTHER 09-03-2016 [facility] CONSTIPATIO GROUND N FAMILY CLINI R112 NAUSEA WITH 09-03-2016 [facility] VOMITING GROUND UNSPECIFIED FAMILY CLINI Z111 ENCOUNTER 09-02-2016 [facility] DEPT RESPIRATORY JAZZ TUBERCULOSI S M549 DORSALGIA 09-01-2016 [facility] UNSPECIFIED PHYSICIANS, PLLC R197 DIARRHEA 09-01-2016 [facility] UNSPECIFIED PHYSICIANS, PLLC R76436K ADVERSE 09-01-2016 [facility] P SRI INITIAL ENCOUNTER W47239 UNS PLACE 09-01-2016 [facility] NON [facility] P PLACE OF OCCUR EXT R195 OTHER FECAL 08-30-2016 [facility] HOSP ABNORMALITI INC ES Z202 CONTACT 08-30-2016 [facility] WITH DISTRICT EXPOSURE [facility] DEPT INFECT JAZZ SEXUAL MODE TRANSMS R5381 OTHER 08-29-2016 [facility] MALAISE PHYSICIANS GROUP R9431 ABNORMAL 08-29-2016 [facility] ELECTROCARD PHYSICIANS IOGRAM GROUP Z67015 LYMPHOCYTOP 08-21-2016 [facility] ENIA [facility] INC J4520 MILD 08-21-2016 [facility] INTERMITTEN PARTNERS OF T ASTHMA [place] UNCOMPLICAT ED Y198USQ OTHER 08-21-2016 [facility] ADVERSE PARTNERS OF FOOD [place] REACTIONS NEC SUBSEQUENT ENC M791 MYALGIA 08-17-2016 [facility] PHYSICIANS, PLLC M898X9 OTHER 08-12-2016 [place] SPECIFIED MEDICAL DISORDERS IMAGING ASS BONE UNSPECIFIED SITE R599 ENLARGED 08-12-2016 [facility] LYMPH NODES [facility] INC UNSPECIFIED R1314 DYSPHAGIA 08-10-2016 [facility] PHARYNGOESO PHYSICIANS, PHAGEAL PLLC PHASE R5382 CHRONIC 08-07-2016 [facility] FATIGUE [facility] UNSPECIFIED INC R591 GENERALIZED 08-05-2016 [facility] P I208 OTHER FORMS 08-02-2016 [facility] OF ANGINA [facility] P J91973 PAIN IN 08-02-2016 [facility] RIGHT KNEE MEDICAL IMAGING ASS R55 SYNCOPE AND 08-02-2016 [facility] COLLAPSE PHYSICIANS, PLLC E654VLM UNSPECIFIED 08-02-2016 [place] INJURY OF MEDICAL NECK IMAGING ASS INITIAL ENCOUNTER K2140GL UNS INJURY 08-02-2016 [place] RT LOWER MEDICAL LEG INITIAL IMAGING ASS ENCOUNTER N281 CYST OF 08-01-2016 [facility] P R209 UNSPECIFIED 07-29-2016 [facility] PHYSICIANS, DISTURBANCE PLLC S OF SKIN SENSATION K589 IRRITABLE 07-24-2016 [facility] BOWEL PHYSICIANS SYNDROME GROUP WITHOUT DIARRHEA R102 PELVIC AND 07-24-2016 [facility] PERINEAL PHYSICIANS PAIN GROUP N831 CORPUS 07-22-2016 [facility] LUTEUM CYST PHYSICIANS GROUP N920 EXCESS & 07-22-2016 [facility] FREQUENT PHYSICIANS MENSTRUATIO GROUP N W/REGULAR CYCLE G63534M STRAIN UNS 07-22-2016 [facility] MUSCLE FASC PHYSICIANS, TEND THIGH PLLC RT INITIAL ENC Z7251 HIGH RISK 07-22-2016 [facility] L BEHAVIOR INC R12 HEARTBURN 07-18-2016 [facility] H9[facility]9 OTHER 07-17-2016 [facility] SPECIFIED PHYSICIANS DISORDERS GROUP OF EAR UNSPECIFIED EAR J302 OTHER 07-17-2016 [facility] SEASONAL PHYSICIANS ALLERGIC GROUP RHINITIS J8693NV LACERATION 07-13-2016 [facility] W/O FOREIGN PHYSICIANS, BODY SCALP PLLC INITIAL ENC R6889 OTHER 07-10-2016 [facility] AND SIGNS E780 PURE 07-09-2016 [facility] HYPERCHOLES BARIATRIC TEROLEMIA SURGICAL E876 HYPOKALEMIA 07-09-2016 [facility] P H6990 UNSPECIFIED 07-07-2016 [facility] EUSTACHIAN EMERGENCY TUBE PHYS PSC DISORDER UNS EAR H938X3 OTHER 07-07-2016 [facility] SPECIFIED HEALTH DISORDERS [place] OF EAR BILATERAL M5432 SCIATICA 07-07-2016 [facility] LEFT SIDE EMERGENCY PHYS PSC R1010 UPPER 07-05-2016 [facility] ABDOMINAL PHYSICIANS, PAIN PLLC UNSPECIFIED I880 NONSPECIFIC 06-27-2016 [facility] MESENTERIC PHYSICIANS, PLLC LYMPHADENIT IS R100 ACUTE 06-27-2016 [facility]BD[facility]EN [facility]BULANCE SERVICE R1031 RIGHT LOWER 06-26-2016 [facility] EMERGENCY PAIN PHYS U43388 RIGHT LOWER 06-26-2016 [facility] ABDOMINAL HOSPITA TENDERNESS N200 CALCULUS OF 06-24-2016 [place] KIDNEY MEDICAL IMAGING ASS M5386 OTHER 06-11-2016 [place] SPECIFIED DORSOPATHIE S LUMBAR REGION D225 MELANOCYTIC 05-23-2016 [facility] LE[facility] NEVI OF TRUNK D2272 MELANOCYTIC 05-23-2016 [facility] NEVI LEFT LOWER LIMB INCLUDING HIP 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 05-23-2016 [facility] UNCERTAIN BEHAVIOR OF SKIN L400 PSORIASIS 05-23-2016 [facility] VULGARIS L408 OTHER 05-23-2016 [facility]ST[facility] L578 [facility] 05-23-2016 [facility] CHANGES D/T CHRN EXPS TO NONIONIZING RAD R9439 ABNORMAL 04-08-2016 [facility] RESULT [facility] CARDIOVASCU MEDICAL LR FUNCTION GROUP STUDY I340 NONRHEUMATI 04-04-2016 [facility] INSUFFICIEN CY I351 NONRHEUMATI 04-04-2016 [facility] AORTIC [facility] INSUFFICIEN CY I361 NONRHEUMATI 04-04-2016 [facility] TRICUSPID SERV [facility] INSUFFICIEN CY M2550 PAIN IN 03-26-2016 [facility] UNSPECIFIED [facility] M7521 BICIPITAL 03-19-2016 [facility] TENDINITIS MAHNOMEN RIGHT INTERNAL SHOULDER MED Z113 ENCOUNTER 03-13-2016 [facility] INFECTIONS SEXL MODE TRANSMISSN M778 OTHER 12-04-2015 [facility] IES NOT INTERNAL ELSEWHERE MED CLASSIFIED 62545 UNSPECIFIED 07-11-2015 [facility] V[facility] 2167 [...] SKIN 7020 ACTINIC 07-11-2015 [facility] KERATOSIS 51350 INFLAMED 07-11-2015 [facility] SEBORRHEIC KERATOSIS V700 ROUTINE 06-27-2015 [facility] DEPT [email or web address] CARE FACL 03834 MORBID 06-20-2015 [facility] BARIATRIC SURGICAL 80992 PAIN IN 06-20-2015 [facility], SITE [facility] UNSPECIFIED 7823 EDEMA 06-20-2015 [facility] 05305 OTHER 06-20-2015 [facility] DYSPNEA AND [facility] RESPIRATORY ABNORMALITI ES 7871 HEARTBURN 06-20-2015 [facility] 7904 NONSPEC 06-20-2015 [facility] ELEVATION BARIATRIC OF LEVELS SURGICAL OF TRANSAMINAS E/LDH V4586 BARIATRIC 06-20-2015 [facility] SURGERY BARIATRIC STATUS SURGICAL V7612 OTHER 06-19-2015 [facility] SCREENING MEDICAL MAMMOGRAM IMAGING ASS 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 MED 2689 UNSPECIFIED 06-12-2015 [facility] VITAMIN D VAL[facility] DEFICIENCY INTERNAL MED 5718 OTHER 06-12-2015 [facility] CHRONIC [facility] NONALCOHOLI INTERNAL C LIVER MED DISEASE 7905 OTHER 06-12-2015 [facility] NONSPECIFIC MAHNOMEN ABNORMAL INTERNAL SERUM MED ENZYME LEVELS 57048 UNSPEC 05-09-2015 [facility] DISORDERS PHYSICIANS BURSAE&TEND GROUP ONS SHOULDER REGION 7262 OTHER 05-09-2015 [facility] AFFECTIONS PHYSICIANS OF SHOULDER [place]EC 45724 OBESITY, 05-04-2015 [facility] UNSPECIFIED OLOGY AND HEPATOL 3674 PRESBYOPIA 04-28-2015 [place] 83002 CHEST PAIN 04-28-2015 [facility] 62442 ABDOMINAL 04-25-2015 [facility], COMMUNTI[facility] UNSPECIFIED HOSPITA SITE 4019 UNSPECIFIED 04-16-2015 [facility] HYPERTENSI[facility] INC N 5990 URINARY 04-16-2015 [facility], INFECTION [facility] SITE NOT SPECIFIED 7948 NONSPECIFIC 04-16-2015 [facility] RESULTS INC LIVR FUNCTION STUDY 5739 UNSPECIFIED 04-14-2015 [facility] [place] DISORDER RADIOLOGY OF LIVER 7906 OTHER 04-14-2015 [facility] ABNORMAL [facility] BLOOD HOSPITA CHEMISTRY 5939 UNSPECIFIED 04-06-2015 [facility]ORDER MEDICAL OF KIDNEY IMAGING ASS AND URETER 7891 HEPATOMEGAL 04-06-2015 [facility] Y OLOGY AND HEPATOL V140 PERSONAL 04-05-2015 [place] HISTORY OF [facility] ALLERGY TO HOSPITAL P [place] 97252 ABDOMINAL 04-03-2015 [facility] PAIN, GENERALIZED 5758 OTHER 04-01-2015 [place] SPECIFIED [facility] DISORDER OF HOSPITAL P GALLBLADDER 71878 OTHER 04-01-2015 [place] SPECIFIED MEDICAL DISORDER OF IMAGING ASS KIDNEY AND URETER 99700 ABDOMINAL 04-01-2015 [facility] PAIN RIGHT MEDICAL UPPER IMAGING ASS QUADRANT 19292 ABDOMINAL 04-01-2015 [place] PA[place], [facility] P 7295 PAIN IN 03-29-2015 [facility] SOFT [facility]UNTI[facility] TISSUES OF HOSPITA LIMB V4589 OTHER 03-29-2015 [facility] POSTSURGICA COMMUNTIY L STATUS HOSPITA OTHER 53261 OTHER 03-24-2015 [facility] MALAISE AND COMMUNTIY FATIGUE HOSPITA V6700 FOLLOW-UP 03-21-2015 [facility] [place] EXAMINATION RADIOLOGY FOLLOWING UNSPEC SURGERY 85888 ESOPHAGEAL 03-20-2015 [place] REFLUX ANESTHESIA GROUP PS 6256 FEMALE 03-20-2015 [facility] STRESS COMMUNTIY INCONTINENC HOSPITA E 66080 PAIN IN 03-20-2015 [facility] JOINT, BARIATRIC MULTIPLE SURGICAL SITES 61658 DIASTASIS 03-20-2015 [facility] OF MUSCLE COMMUNTIY HOSPITA 7892 SPLENOMEGAL 03-20-2015 [facility] Y COMMUNTIY HOSPITA V8543 BODY MASS 03-20-2015 [facility] INDEX COMMUNTIY 50.0-59.9 HOSPITA ADULT 2639 UNSPECIFIED 03-14-2015 [facility] COMM[facility]TIY PROTEIN-TEA HOSPITA ORIE MALNUTRITIO N 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 18258 OTHER 03-07-2015 [facility] URINARY BARIATRIC INCONTINENC SURGICAL E 6929 CONTACT 03-06-2015 DANIEL NGO DERMATITIS& OTHER ECZEMA DUE UNSPEC CAUSE 6822 CELLULITIS 03-02-2015 [facility] AND [facility] P V148 PERSONAL 03-02-2015 [facility] P SPEC MEDICINAL AGTS V571 OTHER 02-22-2015 [facility] PH[facility] THERAPY INC 2724 OTHER AND 02-20-2015 [facility] UNSPECIFIED COMMUNTIY HOSPITA HYPERLIPIDE LILIANE 7245 UNSPECIFIED 02-20-2015 [facility] BACKACHE COMMUNTIY HOSPITA V7283 OTHER 02-20-2015 [facility] SPECIFIED COMMUNTIY PRE-OPERATI HOSPITA VE EXAMINATION 2875 UNSPECIFIED 02-15-2015 [facility] P PENIA 7932 NONSPC ABN 02-10-2015 [place] [facility] F[facility] SERV RAD&OTH FOUNDATION EXAM OT INTRTHOR ORGN V7282 PRE-OPERATI 02-10-2015 [place] [facility] VE SERV RESPIRATORY FOUNDATION EXAMINATION 5930 NEPHROPTOSI 02-09-2015 [facility] P 7802 SYNCOPE AND 02-01-2015 [facility] MEDICAL G 4139 OTHER AND 01-18-2015 [facility] P PECTORIS 82942 SHORTNESS 01-18-2015 [facility] LUMPKINY OF BREATH MEDICAL IMAGING ASS 43371 OTHER CHEST 01-18-2015 [facility] P 18060 OSTEOARTHRO 12-30-2014 DANIEL Reddy INVLV MX SITES BUT [place] SPEC GEN 87393 PAIN IN 11-09-2014 [place] [facility], MEDICAL SHOULDER IMAGING ASS REGION V5832 ENCOUNTER 11-09-2014 [place] FOR REMOVAL [facility] P 68830 PILAR CYST 11-02-2014 [facility] 50997 UNSPECIFIED 10-06-2014 [facility] INFE[facility] PHYS IN CCE & UNS SITE 7840 HEADACHE 10-06-2014 [place] [facility] 50555 ATROPHIC 09-16-2014 [facility] GASTRITIS COMMUNITY WITHOUT HOSPITA MENTION OF HEMORRHAGE 40604 OTHER SPEC 09-16-2014 [facility] WITHOUT MENTION HEMORRHAGE 26455 DYSPHAGIA 09-16-2014 [place] UNSPECIFIED ANESTHESIA GROUP PS 6869 UNSPEC 08-17-2014 [facility] LOCAL INFECTION SKIN&SUBCUT ANEOUS TISSUE V7284 UNSPECIFIED 08-09-2014 [place] [facility] PRE-OPERATI INC VE EXAMINATION 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 7019 UNSPECIFIED 08-04-2014 [facility] HYPERTROPHI C&ATROPHIC CONDITION SKIN 93060 OTHER 08-04-2014 [facility] SEBORRHEIC KERATOSIS 7851 PALPITATION 08-04-2014 [facility] MEDICAL G V7281 PRE-OPERATI 07-21-2014 [facility] CARDIOVASCU MEDICAL G LAR EXAMINATION 33487 PAINFUL 07-05-2014 [facility] BRYCE RESPIRATION V771 SCREENING 05-24-2014 [facility] DIABETES MELLITUS 470 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 4779 ALLERGIC 03-17-2014 [facility] RHINITIS CAUSE UNSPECIFIED 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 01-10-2014 [facility] MAXILLARY SINUSITIS V0481 NEED 01-06-2009 [facility]/CO PROPHYLACTI HEALTH C CENTRAL VACCINATION BANK ACCT &INOCULATIO N FLU 59959 PAIN IN 01-04-2009 [place] [facility] MEDICAL PELVIC IMAGING REGION AND ASSOCIATES THIGH 99482 DISPLCMT 01-04-2009 [place] LUMBAR MEDICAL INTERVERT 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 8460 SPRAIN AND 01-04-2009 [facility] iconDial 8472 LUMBAR 01-04-2009 [place] SPRAIN AND [facility] STRAIN INC 71745 CONTUSION 01-04-2009 happin! BACK ReplySend 29003 CONTUSION 01-04-2009 happin! Cree E8490 PLACE OF 01-04-2009 [place] OCCURRENCE, MEDICAL HOME IMAGING ASSOCIATES E8859 FALL FROM 01-04-2009 [place] OTHER MEDICAL SLIPPING IMAGING TRIPPING OR ASSOCIATES [...] 48 -1 -0 .0 00 IN ti VT 70 1- 6- 00 00 IC ve [...] 43 ZA 91 17 17 63 PH MS 0 09 AR IN MA E CY [...] L CY 4 MG TA BL ET MS 00 08 09 8. 2 00 CL Ac OM 59 -1 -0 00 00 IN ti ET 15 6- 8- 0 00 IC ve CARTY 30 20 20 43 ZI 71 17 17 96 PH NE 0 36 AR MA 25 CY MG TA BL ET MS 59 08 09 10 5 00 RI [...] 43 RA 30 17 17 61 PH VT 5 60 AR DE MA CY 10 [...] 10 7- 1- 00 00 IC ve VT 47 20 20 42 01 17 17 [...] 20 8- 1- 00 00 IC ve CATRY 74 20 20 42 ZI 51 17 [...] 1 70 PH CE AR TA MA VT CY NO PH #3 93 7. 8 [...] 5 25 PH CE AR TA MA VT CY NO PH OF CY 7. NT [...] 20 20 ED 10 09 09 PH VT NI 3 AR CH SO MA AE LO CY L NE S 4 MG DO SE PK CY 59 02 02 00 21 7 CL 18 GA Ac CL 74 -1 -2 .0 IN 75 IN ti OB 60 2- 6- 00 IC 11 EY ve EN 17 20 20 ZA 70 09 09 PH VT MS 6 AR CH IN MA AE [...] Procedures Procedure DOS Code Location Performer Comment IIV4 VACC 93547 [facility] ARS[facility] SPLIT 7 [facility]LEY VIRUS 0.5 INTERNAL ML DOS MED FOR IM USE 77987 [place] [facility] HYDROXY 7 [facility] INCLUDES INC INC FRACTIONS IF PERFORMED COLLECTIO 25771 [place] [facility] N VENOUS 7 [facility] BLOOD INC INC VENIPUNCT URE IM ADM 45289 [facility] A[facility] PRQ ID 7 VALLEY SUBQ/IM INTERNAL NJXS 1 MED VACCINE COMPREHEN 64960 [place] [facility] SIVE 7 [facility] METABOLIC INC INC PANEL BLOOD 70406 [place] [facility] COUNT 7 [facility] COMPLETE INC INC AUTO&AUTO DIFRNTL WBC LIPID 43361 [place] [facility] PANEL 7 [facility] INC INC GROUND A0425 [facility] MILEAGE 7 AMBULANCE AMBULANCE PER SERVICE SERVICE STATUTE MILE AMBULANCE A0429 [facility] SERVICE 7 AMBULANCE AMBULANCE BLS SERVICE SERVICE EMERGENCY TRANSPORT THERAPEUT 40499 [place] [facility] IC 7 [facility] PROPHYLAC INC INC TIC/DX INJECTION SUBQ/[place] [address] [place] [facility] HEAD/BRAI 7 [facility] N W/O INC INC CONTRAST MATERIAL UNCLASSIF J3490 [place] [facility] IED DRUGS 7 [place] [address] [place] [facility] MAXILLOFA 7 [facility] CIAL W/O INC INC CONTRAST MATERIAL SCREENING 98908 [place] [facility] 7 [facility] MAMMOGRAP INC INC HY BI 2-VIEW BREAST INC CAD SCREENING G0202 [facility] 7 MEDICAL MAMMOGRAP IMAGING HY WILBERT ASS INCL CAD WHEN PERFORMD NERVE 16579 CINTHYA RODRIGUEZ CONDUCTIO 7 N N STUDIES NEUROLOGY 9-10 STUDIES NEEDLE 87162 TONKeepy EMG EA 7 N EXTREMTY NEUROLOGY W/PARASPI NL AREA COMPLETE NEEDLE 31191 TastingRoom.comLICOW RODRIGUEZ EMG EA 7 N EXTREMTY NEUROLOGY W/PARASPI NL AREA COMPLETE NERVE 37904 [facility] CONDUCTIO 7 N N STUDIES NEUROLOGY 9-10 STUDIES OPHTH 61683 [facility] MEDICAL 7 XM&EVAL COMPRHNSV ESTAB PT 1/> ESOPHAGEA 62844 HOLINESSPHANI Ortega 7 HEALTH HEALTH MOTILITY [facility] STUDY W/INTERP& [place] [address] [facility] ABDOMEN & 7 MEDICAL PELVIS IMAGING W/[place] [address] [place] [facility] AMYLASE 7 [facility] INC INC URINE 70966 [place] [facility] 7 [facility] TEST INC INC VISUAL COLOR CMPRSN METHS UNCLASSIF J3490 [place] [facility] IED DRUGS 7 [facility] [place] [address] [place] [facility] LIPASE 7 [facility] INC INC BLOOD 25844 [place] COUNT 7 [facility] COMPLETE INC AUTO&AUTO DIFRNTL WBC COMPREHEN 31161 [place] SIVE 7 [facility] METABOLIC INC INC PANEL URNLS DIP 83269 [place] [facility] 7 [facility] STICK/TAB INC INC LET REAGENT AUTO MICROSCOP Y SPACR A4627 MT MED MT MED BAG/RESRV 7 EQUIPMENT EQUIPMENT OR W/WO INC INC MASK W/METRD DOSE INHAL SPMTRY 18336 [facility] W/VC 7 [facility] [employer] [place] Y ABHI CO W/WO MXML VOL VNTJ NITRIC 86133 [facility] OXIDE 7 [facility] [place] GAS CO DETERMINA TION DEMO&/VIPUL 71214 [facility] L OF PT 7 [facility] [place] AERSL CO GEN/NEB/I NHLR/IP RADIOLOGI 22305 [facility] C 7 MEDICAL EXAMINATI IMAGING ON KNEE 3 ASS VIEWS EXTERNAL 18256 [facility] ECG 7 [facility] SCANNING INC INC ANALYSIS REPORT XTRNL ECG 98706 [place] MATUTE 7 [facility] S RHYTHM P W/I&R UP TO 48 HRS XTRNL ECG 59908 [place] [facility] & 48 HR 7 [facility] RECORDING INC INC ECG 51771 [place] ROUTINE 7 [facility] W/LEAST P 12 LDS [place] [address] [place] [facility] TROPONIN 7 [facility] QUANTITAT INC INC SABIHA COMPREHEN 26730 [place] SIVE 7 [facility] METABOLIC INC INC PANEL ECG 91138 [place] ROUTINE 7 [facility] MEM [facility]OS[facility] ECG INC INC W/LEAST 12 LDS TRCG ONLY W/O I&R CREATINE 74657 [place] [facility] KINASE MB 7 MEM HOS[facility] FRACTION INC INC ONLY CREATINE 86380 [place] KINASE 7 [facility] TOTAL INC INC ANES 77672 [facility] UPPER GI 7 [place] ENDOSCOPY ANESTHESI PROXIMAL A TO DUODENUM EGD 73024 [facility] SANCHEZ TRANSORAL 7 HEALTH BIOPSY MEDICAL SINGLE/MU GROUP LTIPLE ECG 13783 [facility] ROUTINE 7 HEART ECG SPECIALIS W/LEAST TS, 12 LDS I&R ONLY ECG 85055 [facility] ROUTINE 7 PHYSICIAN ECG S, PLLC W/LEAST 12 LDS I&R ONLY COMPREHEN 56647 [place] SIVE 7 [facility] [place] [address] [place] [facility] TROPONIN 7 [facility] QUANTITAT INC INC SABIHA ECG 55433 [place] ROUTINE 7 [facility] ECG INC INC W/LEAST 12 LDS TRCG ONLY W/O I&R ECG 71008 [facility] ROUTINE 7 [facility] ECG [facility] W/LEAST 12 LDS TRCG ONLY W/O I&R COLLECTIO 39003 [facility] N VENOUS 7 [facility] BLOOD [facility] [address] [facility], PICKLESIM SURG 7 [facility] ER JR PATHOLOGY GROSS&BRYCE ROSCOPIC EXAM COLPOSCOP 95174 [facility] KAM Mercedes CERVIX 7 PHYSICIAN BX CERVIX S GROUP & [place] [address] [facility] TRACT 7 [facility] UPPER [facility] W/WO DELAYED IMAGES W/[place] [address] [facility] HEAD/BRAI 7 MEDICAL MEDICAL N W/O IMAGING IMAGING CONTRAST ASS ASS MATERIAL UNCLASSIF J3490 [place] [facility] IED DRUGS 7 [facility] INC INC GONADOTRO 98244 [place] PIN 7 MEM HOSP MEM HOSP FOLLICLE INC INC STIMULATI NG HORMONE GONADOTRO 29464 [place] PIN 7 MEM HOS[facility] MEM HOSP LUTEINIZI INC INC NG HORMONE COLLECTIO 82030 [place] N VENOUS 7 MEM [facility] MEM [facility]OS[facility] BLOOD INC INC VENIPUNCT URE BLOOD 53376 [place] COUNT 7 [facility] COMPLETE INC INC AUTO&AUTO DIFRNTL WBC COMPREHEN 99725 [place] SIVE 7 [facility] [place] [address] [place] [facility] GAMMAGLOB 7 [facility] ULIN IGA INC INC IGD IGG IGM EACH LIPID 25255 [place] [facility] PANEL 7 [facility] INC INC URNLS DIP 05905 [place] [facility] 7 [facility] STICK/TAB INC INC LET REAGENT AUTO MICROSCOP Y COMPREHEN 75976 [place] SIVE 7 [facility] [place] [address] [place] [facility] INFUSION 7 [facility] THERAPY/P INC INC ROPHYLAXI S /DX 1ST TO 1 HR BLOOD 04605 [place] [facility] COUNT 7 [facility] COMPLETE INC INC AUTO&AUTO DIFRNTL WBC UNCLASSIF J3490 [place] [facility] IED DRUGS 7 [place] [address] [place] INFUSION 7 [facility] THERAPY INC INC PROPHYLAX IS/DX EA HOUR UNCLASSIF J3490 [place] IED DRUGS 7 [facility] H[facility] MEM HOSP INC [place] NJX 98749 YVETTE BUX DX/THER 7 MD RHIANNON, SBST PSC INTRLMNR LMBR/SAC W/IMG GDN CYTP C/V 86976 [facility] TOD ESQUIVEL AUTO THIN 7 LLC LYR PREPJ SCR MNL RESCR PHYS CYTP 68176 [facility] TOD ESQUIVEL CERVICAL/ 7 LLC VAGINAL REQ INTERP PHYSICIAN IADNA 76087 [facility] LABSTOD HUMAN 7 LLC [place] VIRUS HIGH-RISK TYPES URNLS DIP 70477 [facility] HUMPHREY 7 PHYSICIAN STICK/TAB S GROUP LET RGNT NON-AUTO W/O MICRSCP ECG 04151 [place] ROUTINE 7 [facility] ECG INC INC W/LEAST 12 LDS TRCG ONLY W/O I&R ANTINUCLE 52139 [place] AR 7 [facility] ANTIBODIE INC INC S SANNA PROTEIN 46195 [place] ELECTROPH 7 MEM H[facility] MEM HOS[facility] ORETIC INC INC FRACTJ&QU ANTJ SERUM COLLECTIO 53750 [place] [facility] N VENOUS 7 MEM H[facility] MEM [facility]OS[facility] BLOOD INC INC VENIPUNCT URE BLOOD 54934 [place] COUNT 7 [facility]OS[facility] COMPLETE INC INC AUTO&AUTO DIFRNTL WBC COMPREHEN 34340 [place] SIVE 7 [facility] METABOLIC INC INC PANEL URNLS DIP 58914 [place] TALLEYON 7 [facility] STICK/TAB INC INC LET RGNT AUTO W/O MICROSCOP Y CT THORAX 99686 [place] TALLEYON 7 [facility] W/[place] [address] [place] UREA 7 [facility] NITROGEN INC INC QUANTITAT SABIHA CREATININ 03991 [place] E BLOOD 7 [facility] INC INC UNCLASSIF J3490 [place] IED DRUGS 7 [facility] INC INC COLLECTIO 51765 [place] [facility] N VENOUS 7 [facility] BLOOD INC [place] NJX 34669 [facility] DUFF DX/THER 7 MD RHIANNON, AGT PVRT PSC FACET JT LMBR/SAC 3+ LEVEL ECG 06074 [facility] KIMBERLY ROUTINE 7 PHYSICIAN ECG S GROUP W/LEAST 12 LDS I&[place] ONLY NJX 21232 [facility] DUFF DX/THER 7 MD RHIANNON, AGT PVRT PSC FACET JT LMBR/SAC 1 LEVEL NJX 00829 [facility] DUFF DX/THER 7 MD RHIANNON, AGT PVRT PSC FACET JT LMBR/SAC 2ND LEVEL ECG 45533 [place] ROUTINE 7 [facility] ECG INC INC W/LEAST 12 LDS TRCG ONLY W/O I&R ECG 56077 [place] ROUTINE 7 [facility] ECG INC INC W/LEAST 12 LDS TRCG ONLY W/O I&R RADEX 33568 [place] ABDOMEN 7 [facility] COMPL INC INC W/DCBTS&/ ERC VIEWS THER 52599 [place] [facility] PROPH/DX 7 [facility] NJX IV INC INC PUSH SINGLE/1S T SBST/[place] [address] [place] AMYLASE 7 [facility] INC INC CREATINE 51749 [place] [facility] KINASE MB 7 [facility] FRACTION INC INC ONLY UNCLASSIF J3490 [place] IED DRUGS 7 [facility] INC INC CREATINE 03687 [place] KINASE 7 [facility] [place] [address] [place] [facility] LIPASE 7 [facility]OS[facility] INC INC BLOOD 08994 [place] [facility] COUNT 7 [facility] COMPLETE INC INC AUTO&[place] [address] [place] [facility] TROPONIN 7 [facility] QUANTITAT INC INC SABIHA COMPREHEN 45234 [place] SIVE 7 [facility] METABOLIC INC INC PANEL THERAPEUT 57909 [place] [facility] IC 7 [facility] INJECTION INC INC IV PUSH EACH NEW DRUG ECG 95449 [place] ROUTINE 7 [facility] W/LEAST P 12 LDS I&R ONLY ECG 54915 [facility] ROUTINE 7 PHYSICIAN ECG S GROUP W/LEAST 12 LDS I&R ONLY ECG 01711 [place] ROUTINE 7 [facility] ECG INC INC W/LEAST 12 LDS TRCG ONLY W/O I&R ECG 13925 [facility] ROUTINE 7 PHYSICIAN ECG S GROUP W/LEAST 12 LDS I&R ONLY XTRNL ECG 75675 [place] [facility] & 48 HR 7 [facility] RECORDING INC INC ECG 28324 [facility] ROUTINE 7 PHYSICIAN ECG S, PLLC W/LEAST 12 LDS I&R ONLY RADIOLOGI 51490 [facility] C EXAM 7 PHYSICIAN CHEST 2 S, PLLC VIEWS FRONTAL&L ATERAL COMPREHEN 27845 [place] SIVE 7 [facility] [place] [address] [place] TROPONIN 7 [facility] QUANTITAT INC INC SABIHA BLOOD 54321 [place] COUNT 7 [facility] COMPLETE INC INC AUTO&AUTO DIFRNTL WBC CREATINE 10231 [place] KINASE MB 7 [facility] FRACTION INC INC ONLY ECG 06986 [place] ROUTINE 7 [facility] ECG INC INC W/LEAST 12 LDS TRCG ONLY W/O I&R MRI 07669 [facility] SPINAL 7 CANAL ORTHOPAED LUMBAR ICS PSC W/O CONTRAST MATERIAL CREATINE 44045 [place] KINASE 7 [facility] TOTAL INC INC AMB A0427 [facility] SERVICE 7 AMBULANCE AMBULANCE ALS SERVICE SERVICE EMERGENCY TRANSPORT LEVEL 1 GROUND A0425 [facility] MILEAGE 7 AMBULANCE AMBULANCE PER SERVICE SERVICE STATUTE MILE RADEX 96845 [facility] SPINE 7 [place] LUMBOSACR ORTHOPAED AL 2/[address] [place] [address] [facility] CERVICAL 7 MEDICAL MEDICAL SPINE W/O [place] [address] [place] HEAD/BRAI 7 MEDICAL N W/O IMAGING CONTRAST ASS MATERIAL ECG 81728 [place] ROUTINE 7 [facility] ECG INC INC W/LEAST 12 LDS TRCG ONLY W/O I&R ECG 50896 [place] ROUTINE 7 [facility] W/LEAST P 12 LDS I&R ONLY COLLECTIO 92891 [place] [facility] N VENOUS 7 [facility] [place]LOOD [place] [address] [place] [facility] FOLIC 7 [facility] ACID INC INC SERUM 25 83049 [place] HYDROXY 7 [facility] INCLUDES INC INC FRACTIONS IF PERFORMED CYANOCOBA 32134 [place] LYUBOV 7 [facility] VITAMIN INC INC B-12 UNCLASSIF J3490 [place] [facility] IED DRUGS 7 [facility] INC INC THERAPEUT 11944 [place] [facility] IC 7 [facility] PROPHYLAC INC INC TIC/DX INJECTION SUBQ/IM UNCLASSIF J3490 [place] [facility] IED DRUGS 7 [facility] INC INC URNLS DIP 60722 [place] [facility] 7 [facility] STICK/TAB INC INC LET [place] [address] [facility] TRACT 7 [facility] UPPER [facility] W/WO DELAYED IMAGES W/KUB DESTRUCTI 48093 JASSO JASSO ON BENIGN 7 LESIONS UP TO 14 RADEX 70658 [place] SAQIB ABDOMEN 1 7 MEDICAL IMAGING ANTEROPOS ASS TERIOR VIEW TX PROC G0238 [place] [facility] IMPRV 7 [facility] RESP INC INC FUNCT NOT G0237 FCE-FCE 15MIN [place] [address] [place] [facility] INFUSION 7 [facility] THERAPY/P INC INC ROPHYLAXI S /DX 1ST TO 1 HR COMPREHEN 83870 [place] SIVE 7 [facility] METABOLIC INC INC PANEL BLOOD 96759 [place] [facility] COUNT 7 [facility] COMPLETE INC INC AUTO&AUTO DIFRNTL WBC RAD EXP G9500 [facility] CERRAT[facility] INDICES/E 7 MEDICAL XP TM & IMAGING NUMB ASS FLUORO IMAGES DOC RADEX 25436 [facility] SAQIB ESOPHAGUS 7 MEDICAL IMAGING ASS INJECTION J0330 [facility] HOLINESS [address] [place] [address] SUCCINYLC [facility] HOLINE CHLORIDE UP TO 20 MG INJECTION J2405 [facility] [address] [place] [address] ONDANSETR [facility] ON HCL PER 1 MG INJECTION J1100 [facility] [address] [place] [address] DEXAMETHO [facility] SONE SODIUM PHOSPHATE 1 MG INJECTION J1170 [facility] HOLINESS 7 [facility] HYDROMORP [facility] KURTIS UP TO 4 MG INJECTION J2704 [facility] PROPOFOL 7 [facility] 10 MG [facility] INJECTION J2710 HOLINESS HOLINESS 7 [facility] NEOSTIGMI [facility] NE METHYLSUL FATE UP TO 0.5 MG INJECTION J3010 HOLINESS HOLINESS FENTANYL 7 [facility] CITRATE [facility] 0.1 MG LAPS RPR 79181 HOLINESS GARCIA PARAESPHG 7 [facility] L HRNA MEDICAL INCL GROUP FUNDPLSTY W/O MESH INJECTION J1650 [facility] HOLINESS 7 [facility] ENOXAPARI [facility] N SODIUM 10 MG ANES 08145 [facility] INTRAPERI 7 [facility] UPPER A ABDOMEN W/LAPS NOS GLUCOSE 39478 [facility] QUANTITAT 7 [facility] SABIHA BLOOD [facility] XCPT REAGENT STRIP HEMOGLOBI 81894 [facility] N 7 [facility] GLYCOSYLA [facility] LANEY A1C BLOOD 41398 [facility] COUNT 7 [facility] COMPLETE [facility] AUTOMATED ECG 43321 [facility] ANNA ROUTINE 7 [facility] ECG MEDICAL W/LEAST GROUP 12 LDS I&R ONLY COLLECTIO 10014 [facility] N VENOUS 7 [facility] BLOOD [facility] VENIPUNCT URE ECG 78840 [facility] ROUTINE 7 [facility] ECG [facility] W/LEAST 12 LDS TRCG ONLY W/O I&[place] [address] [place] [facility] AMYLASE 6 [facility] INC INC ECG 02398 [place] [facility] ROUTINE 6 [facility] ECG INC INC W/LEAST 12 LDS TRCG ONLY W/O I&R RADEX 62892 [facility] ABDOMEN 6 MEDICAL MEDICAL COMPL IMAGING IMAGING W/DCBTS&/ [place] [address] [place] [facility] LIPASE 6 [facility] INC INC RADIOLOGI 25365 [facility] C EXAM 6 MEDICAL MEDICAL CHEST 2 IMAGING IMAGING VIEWS ASS ASS FRONTAL&L ATERAL ECG 12862 [place] CHAVEZ JR ROUTINE 6 [facility] W/LEAST P 12 LDS I&R ONLY BLOOD 88888 [place] [facility] COUNT 6 [facility] COMPLETE INC INC AUTO&AUTO DIFRNTL WBC COMPREHEN 45705 [place] [facility] SIVE 6 [facility] METABOLIC INC INC PANEL THERAPEUT 39985 [place] [facility] IC 6 [facility] INJECTION [place] [address] [place] [facility] INFUSION 6 [facility] THERAPY/P INC INC ROPHYLAXI S /DX 1ST TO 1 HR BLOOD 84359 [facility] OCCULT 6 [facility] INTERNAL E ACTV MED QUAL FECES 1 DETER GLUC BLD 44210 [place] [facility] GLUC MNTR 6 [facility] DEV INC [place] [address] [place] HEAD/BRAI 6 MEDICAL N W/O IMAGING CONTRAST ASS MATERIAL THERAPEUT 77761 [place] [facility] IC 6 [facility] PROPHYLAC INC INC TIC/DX INJECTION SUBQ/IM RADEX 07118 [place] [facility] SACRUM & 6 [facility] COCCYX INC INC MINIMUM 2 VIEWS RADEX 38803 [place] [facility] SPINE 6 [facility] LUMBOSACR INC INC AL MINIMUM 4 VIEWS URINE 75524 [place] [facility] 6 [facility] TEST INC INC VISUAL COLOR CMPRSN METHS RADIOLOGI 92858 [place] [facility] C 6 [facility] EXAMINATI INC INC ON PELVIS 1/2 VIEWS IAADI 19441 [place] [facility] INFLUENZA 6 [facility] B VIRUS INC IAADI 16971 [place] INFFLUENZ 6 [facility] [place] [address] [place] STREPTOCO 6 [facility] CCUS INC INC GROUP A BLOOD 07373 [place] [facility] COUNT 6 [facility] COMPLETE INC INC AUTO&AUTO DIFRNTL WBC CUL BACT 92627 [place] XCPT 6 [facility] URINE INC INC BLOOD/STO OL AEROBIC ISOL RADEX 80009 [place] SINUSES 6 [facility] PARANASAL INC INC COMPL MINIMUM 3 VIEWS RADIOLOGI 77886 [facility] C EXAM 6 MEDICAL ADRIANNA CHEST 2 IMAGING VIEWS ASS FRONTAL&L ATERAL ANESTHESI 07120 [facility] A NOSE & 6 ANESTH ACCESSORY OF THE SINUSES BLUE NOS DECALCIFI 97466 [facility], PICKLESIM CATION 6 [facility] [address] [facility], PICKLESIM SURG 6 [facility] PATHOLOGY GROSS&BRYCE ROSCOPIC EXAM ECG 58700 [place] GIOVANI ROUTINE 6 [facility] W/LEAST P 12 LDS I&R ONLY ECG 42870 [place] ROUTINE 6 [facility] ECG INC INC W/LEAST 12 LDS TRCG ONLY W/O I&R COLLECTIO 72108 [place] N VENOUS 6 [facility] BLOOD INC INC VENIPUNCT URE BLOOD 92180 [place] COUNT 6 [facility] COMPLETE INC INC AUTO&AUTO DIFRNTL WBC ANTIBODY 92819 [place] HERPES 6 [facility] SMPLX INC INC TYPE 1 ANTIBODY 36051 [place] VIRUS NOT 6 [facility] INC INC ELSEWHERE SPECIFIFE D COMPREHEN 18905 [place] SIVE 6 [facility] [address] [place] MAXILLOFA 6 [facility] CIAL W/O INC INC CONTRAST MATERIAL URINE 85797 [place] 6 [facility] TEST INC [place] [address] [facility] HEAD/BRAI 6 MEDICAL N W/[place] [address] [place] CERVICAL 6 [facility] SPINE W/O INC INC CONTRAST MATERIAL COMPRE 56318 MAEGAN ISSA AUDIOMETR 6 JARON JARON Y THRESHOLD EVAL SP RECOGNIJ TYMPANOME 74407 MAEGAN ISSA TRY 6 JARON JARON DISTORT 34116 MAEGAN ISSA PRODUCT 6 JARON JARON EVOKED OTOACOUST IC EMISNS LIMITD PULMONARY 17231 [place] NOG[place] STRESS 6 MEDICAL TESTING SERV SIMPLE FOUNDATIO N GAS 28047 [place] DILUT/WAS 6 MEDICAL MEDICAL HOUT LUNG SERV SERV VOL W/WO FOUNDATIO FOUNDAT[place] DISTRI[place] VENT&[place] [address] [place] NO[place] DIFFUSING 6 MEDICAL CAPACITY SERV FOUNDATIO N ELIG CLIN G8427 STAMPING RODRIGUEZ TRI ATTSTS 6 GROUND DOC M REC FAMILY OBTD CLINI UPD/REV PT MEDS ECG 11250 [place] MATUTE ROUTINE 6 [facility] W/LEAST P 12 LDS I&R ONLY IM ADM 12503 [facility] PRQ ID 6 [facility] SUBQ/IM HLTH DEPT HLTH DEPT NJXS 1 JAZZ JAZZ VACCINE SYPHILIS 23113 [facility] TEST 6 [facility] NON-TREPO HLTH DEPT HLTH DEPT NEMAL JAZZ JAZZ ANTIBODY QUAL COLLECTIO 49699 [place] N VENOUS 6 [facility] BLOOD INC INC VENIPUNCT URE SKIN TEST 51985 [facility] 6 [facility] HLTH DEPT HLTH DEPT SIS JAZZ JAZZ INTRADERM AL BLOOD 24990 [place] OCCULT 6 [facility] PEROXIDAS INC INC E ACTV QUAL FECES 1-3 SPEC IM ADM 51703 [facility] PRQ ID 6 DISTRICT DISTRICT SUBQ/IM HLTH DEPT HLTH DEPT NJXS EA JAZZ JAZZ VACCINE BLOOD 62681 [place] [facility] COUNT 6 [facility] COMPLETE INC INC AUTO&AUTO DIFRNTL WBC TDAP 34149 [facility] VACCINE 7 6 [facility] DISTRICT YRS/> IM HLTH DEPT HLTH DEPT JAZZ JAZZ XTRNL ECG 29218 [place] [facility] 6 [facility] S RHYTHM P W/I&R UP TO 48 HRS PROF SVCS 82571 ALLERGY ROS[place] MAR ALLG 6 PART[facility]ERS IMMNTX X OF [place] W/PRV CO ALLGIC XTRCS NJXS BLOOD 70916 [place] COUNT 6 [facility] RETICULOC INC INC YTE AUTOMATED ANTINUCLE 19262 [place] AR 6 [facility] ANTIBODIE INC INC S SANNA NITRIC 11573 ALLERGY ROS[facility] MAR OXIDE 6 [facility] [place] GAS CO DETERMINA TION BLOOD 05052 [place] COUNT 6 [facility] COMPLETE INC INC AUTO&AUTO DIFRNTL WBC RHEUMATOI 55346 [place] Morillo FACTOR 6 [facility] QUANTITAT INC INC SABIHA SEDIMENTA 31397 [place] TION RATE 6 [facility] RBC INC INC NON-AUTOM ATED ECG 71726 [place] ROUTINE 6 [facility] W/LEAST P 12 LDS I&R ONLY SPMTRY 75757 ALLERGY ROS[facility]HAL MAR W/VC 6 PARTNERS EXPIRATOR OF [place] Y ABHI CO W/WO MXML VOL VNTJ AMBULANCE A0429 [facility] SERVICE 6 AMBULANCE PATY BLS SERVICE EMERGENCY TRANSPORT GROUND A0425 [facility] MILEAGE 6 AMBULANCE PATY PER SERVICE STATUTE MILE BONE 85549 [place] &/JOINT 6 [facility] IMAGING INC INC WHOLE BODY SEDIMENTA 82225 [place] TION RATE 6 [facility] RBC INC INC NON-AUTOM ATED COLLECTIO 16279 [place] Gutierrez VENOUS 6 [facility] BLOOD INC INC VENIPUNCT URE BLOOD 60470 [place] COUNT 6 [facility] COMPLETE INC INC AUTO&AUTO DIFRNTL WBC TECHNETIU A9503 [place] Montenegro TC-99M 6 [facility] MEDRONATE INC INC DX UP TO 30 MCI BLOOD 36324 [place] COUNT 6 [facility] RETICULOC INC INC YTE AUTOMATED BASIC 32754 [place] METABOLIC 6 [facility] PANEL INC INC CALCIUM TOTAL RADIOLOGI 55596 [facility] C EXAM 6 MEDICAL MEDICAL CHEST 2 IMAGING IMAGING VIEWS ASS ASS FRONTAL&L ATERAL ANES 14392 [facility] BRITTNY LOWER 6 ANESTHESI INTESTINE A GROUP [place] [address] [place] THYROXINE 6 [facility] TOTAL INC INC GONADOTRO 73032 [place] PIN 6 [facility] FOLLICLE INC INC STIMULATI NG HORMONE GONADOTRO 75836 [place] PIN 6 [facility] [place] [address] [place] THYROID 6 [facility] STIMULATI INC INC NG HORMONE TSH COLLECTIO 99408 [place] N VENOUS 6 [facility] BLOOD INC INC VENIPUNCT URE THYROID 37313 [place] HORM 6 [facility] UPTK/THYR INC INC OID HORMONE BINDING RATIO ECG 40095 [place] ROUTINE 6 [facility] W/LEAST P 12 LDS I&R ONLY AMB A0427 [facility] SERVICE 6 AMBULANCE KILO ALS SERVICE EMERGENCY TRANSPORT LEVEL 1 RADIOLOGI 52664 [facility] C 6 MEDICAL MEDICAL EXAMINATI IMAGING IMAGING ON CHEST ASS ASS SINGLE VIEW FRONTAL GROUND A0425 [facility] MILEAGE 6 AMBULANCE KILO PER SERVICE STATUTE MILE PREPJ& 21142 ALLERGY ROSENTHAL MAR ALLERGEN 6 PARTNERS IMMUNOTHE OF TRE PEREZ CO 1/[place] [address] [place] INFUSION 6 [facility] THERAPY INC INC PROPHYLAX IS/DX EA HOUR CREATINE 78837 [place] [facility] KINASE 6 [facility] TOTAL INC INC RADIOLOGI 71351 [place] C 6 [facility] EXAMINATI INC INC ON KNEE 3 VIEWS ECG 29881 [place] ROUTINE 6 [facility] ECG INC INC W/LEAST 12 LDS TRCG ONLY W/O I&R CREATINE 49443 [place] KINASE MB 6 [facility] [place] [address] [place] CERVICAL 6 [facility] SPINE W/[place] [address] [place] HEAD/BRAI 6 [facility] N W/O INC INC CONTRAST MATERIAL ECG 17755 AUSTINKIMBERLY MATUTE ROUTINE 6 [facility] W[facility]LEAST P 12 LDS I&[place] [address] [place] TROPONIN 6 [facility] QUANTITAT INC INC SABIHA BLOOD 55575 [place] COUNT 6 [facility] COMPLETE INC INC AUTO&[place] [address] [place] INFUSION 6 [facility] THERAPY/P INC INC ROPHYLAXI S /DX 1ST TO 1 HR COMPREHEN 23510 [place] SIVE 6 [facility] METABOLIC INC INC PANEL SPACR A4627 [facility] KRASNOPOL BAG/RESRV 6 EQUIPMENT ANTONIO LAUREN OR W/WO INC MASK W/METRD DOSE INHAL SPMTRY 29206 ALLERGY ROSENTHAL MAR W/VC 6 PARTNERS EXP[facility] [place] Y ABHI CO W/WO MXML VOL VNTJ PERCUTANE 70401 ALLERGY ROSENTHAL MAR OUS TESTS 6 [facility] [place] W/ALLERGE CO LEO EXTRACTS INTRACUTA 97886 ALLERGY ROSENTHAL MAR NEOUS 6 PARTNERS TESTS OF [place] W/ALLERGE CO LEO EXTRACTS NITRIC 20072 ALLERGY ROSENTHAL MAR OXIDE 6 [facility] [place] [address] [facility] HUMPHREY TRANSVAGI 6 PHYSICIAN MEAGAN NAL S GROUP ECG 39509 [place] CHAVEZ JR ROUTINE 6 [facility] W/LEAST P 12 LDS I&R ONLY IADNA 34798 [place] NEISSERIA 6 [facility] INC INC GONORRHOE AE AMPLIFIED PROBE TQ IADNA 41456 [place] CHLAMYDIA 6 [facility] INC INC TRACHOMAT [place] [address] [facility] ANDREWS TRACT 6 RADIOLOGY RHO UPPER W/WO DELAYED IMAGES W/KUB ECG 29109 [place] MICHISHELLY ROUTINE 6 [facility] W/LEAST P 12 LDS I&R ONLY RADIOLOGI 33026 [place] [facility] ALL C 6 MEDICAL EXAMINATI IMAGING ON CHEST ASS SINGLE VIEW FRONTAL ELECTROEN 95795 CINTHYA DONALD CEPHALOGR 6 N AM W/REC NEUROLOGY AWAKE&ASL EEP ECG 53583 [place] MICHISHELLY ROUTINE 6 [facility] W/LEAST P 12 LDS I&[place] [address] [facility] ABDOMEN & 6 MEDICAL MEDICAL PELVIS IMAGING IMAGING W/CONTRAS ASS ASS T MATERIAL ELECTROEN 65031 [facility] CEPHALOGR 6 N N AM W/REC COMMUNTIY COMMUNTIY [facility] H[facility]PITA WSY RADEX 39924 [facility] ALL SPINE 6 MEDICAL THORACIC IMAGING 2 VIEWS ASS RADIOLOGI 38203 [facility] ALL C 6 MEDICAL EXAMINATI IMAGING ON CHEST ASS SINGLE VIEW FRONTAL ECG 11647 [place] CHAVEZ JR ROUTINE 6 [facility] W/LEAST P 12 LDS I&R ONLY COMPUTER- 61162 [place] AIDED 6 MEDICAL ADRIANNA DETECTION IMAGING ASS SCREENING MAMMOGRAP HY SCREENING G0202 [place] [facility] 6 MEDICAL ADRIANNA MAMMOGRAP IMAGING HY WILBERT ASS INCL CAD WHEN PERFORMD ECG 50892 [place] CHAVEZ JR ROUTINE 6 [facility] W/LEAST P 12 LDS I&[place] [address] [place] TROPONIN 6 [facility] QUANTITAT INC INC SABIHA BLOOD 51974 [place] COUNT 6 [facility] COMPLETE INC INC AUTO&AUTO DIFRNTL WBC URNLS DIP 54382 [place] [facility] 6 [facility] STICK/TAB INC [place] [address] [place] INFUSION 6 [facility] THERAPY/P INC INC ROPHYLAXI S /DX 1ST TO 1 HR COMPREHEN 01377 [place] SIVE 6 [facility] METABOLIC INC INC PANEL RADEX ABD 28675 SEJAL CERRATO ALL COMPL 6 MEDICAL AQT ABD IMAGING W/S/E/D ASS VIEWS 1 VIEW CH ECG 44013 [place] ROUTINE 6 [facility] ECG INC INC W/LEAST 12 LDS TRCG ONLY W/O I&[place] [address] [place] LACTATE 6 [place] [address] [place] INFUSION 6 [facility] THERAPY/P INC INC ROPHYLAXI S /DX 1ST TO 1 HR URNLS DIP 02814 [place] [facility] 6 [facility] STICK/TAB INC INC LET REAGENT AUTO MICROSCOP Y COMPREHEN 29248 [place] SIVE 6 [facility] [place] [address] [place] TROPONIN 6 [facility] QUANTITAT INC INC SABIHA BLOOD 99746 [place] COUNT 6 [facility] COMPLETE INC INC AUTO&AUTO DIFRNTL WBC ECG 01185 [place] MATUTE ROUTINE 6 [facility] W/LEAST P 12 LDS I&R ONLY RADIOLOGI 08042 SEJ[facility] CERRAT[facility] ALL C EXAM 6 MEDICAL CHEST 2 IMAGING VIEWS ASS FRONTAL&L ATERAL URINE 58693 [place] [facility] 6 [facility] TEST INC INC VISUAL COLOR CMPRSN [place]HS CULTURE 24775 [place] BACTERIAL 6 [facility] INC INC QUANTTATI VE COLONY COUNT URINE CREATINE 88132 [place] KINASE 6 [facility] TOTAL INC INC CREATINE 90144 [place] KINASE MB 6 [facility] FRACTION INC INC ONLY ECG 86670 [place] ROUTINE 6 [facility] ECG INC INC W/LEAST 12 LDS TRCG ONLY W/O I&R RADEX ABD 71106 SEJAL CERRATO ALL COMPL 6 MEDICAL AQT ABD IMAGING W/S/E/D ASS VIEWS 1 VIEW CH AMB A0427 [facility] SERVICE 6 AMBULANCE AMBULANCE ALS SERVICE SERVICE EMERGENCY TRANSPORT LEVEL 1 GROUND A0425 [facility] 6 AMBULANCE AMBULANCE PER SERVICE SERVICE STATUTE MILE THER 32553 [facility] PROPH/DX 6 N N NJX IV COMMUNTIY COMMUNTIY PUSH HOSPITA HOSPITA SINGLE/1S T SBST/DRUG MRI BRAIN 17110 [facility] BRAIN 6 N N STEM W/O COMMUNTIY COMMUNTI[place] [address] [facility] INFUSION 6 N N HYDRATION COMMUNTIY COMMUNTIY EACH HOSPITA HOSPITA ADDITIONA L HOUR COLLECTIO 08726 [facility] N VENOUS 6 N N BLOOD COMMUNTIY COMMUNTIY VENIPUNCT HOSPITA HOSPITA URE BLOOD 30927 [facility] COUNT 6 N N COMPLETE COMMUNTIY COMMUNTIY AUTO&AUTO HOSPITA HOSPITA DIFRNTL WBC COMPREHEN 42623 [facility] SIVE 6 N N METABOLIC COMMUNTIY COMMUNTIY PANEL HOSPITA HOSPITA ECG 33791 [place] ROUTINE 6 [facility] W/LEAST P 12 LDS I&[place] [address] [place] [facility] ALL ABDOMEN & 6 MEDICAL PELVIS IMAGING W/[place] [address] [place] ALL HEAD/BRAI 6 MEDICAL N W/O IMAGING CONTRAST ASS MATERIAL RADIOLOGI 80419 [place] ALL C 6 MEDICAL EXAMINATI IMAGING ON CHEST ASS SINGLE VIEW FRONTAL AMB A0427 [facility] SERVICE 6 AMBULANCE AMBULANCE ALS SERVICE SERVICE EMERGENCY TRANSPORT LEVEL 1 GROUND A0425 [facility] 6 AMBULANCE AMBULANCE PER SERVICE SERVICE STATUTE MILE CHIROPRAC 16772 [facility] TIC 6 MANIPULAT SABIHA TX SPINAL 3-4 REGIONS MANUAL 69021 [facility] THERAPY 6 TQS 1/> REGIONS EACH 15 MINUTES THERAPEUT 91341 [facility] IC PX 1/> 6 AREAS EACH 15 MIN EXERCISES CHIROPRAC 10168 [facility] TIC 6 MANIPLTV TX EXTRASPIN AL 1/> REGION THERAPEUT 89671 L[facility]UKING IC PX 1/> 6 AREAS EACH 15 MIN EXERCISES MANUAL 00616 [facility] THERAPY 6 TQS 1/> REGIONS EACH 15 MINUTES MANUAL 31930 [facility] THERAPY 6 MATTI MATTI TQS 1/> REGIONS EACH 15 MINUTES CHIROPRAC 59287 [facility] TIC 6 MATTI MATTI MANIPULAT SABIHA TX SPINAL 3-4 REGIONS THERAPEUT 22373 [facility] LUKING IC PX 1/> 6 MATTI MATTI AREAS EACH 15 MIN EXERCISES CHIROPRAC 41736 LUK[facility]UK[facility] TIC 6 MATTI MATTI MANIPLTV TX EXTRASPIN AL 1/> REGION COMPREHEN 62867 [facility] SIVE 6 DIAGNOSTI DIAGNOST[place] [address] SCALF LEI SCALF LEI SURG 6 PATHOLOGY GROSS&BRYCE ROSCOPIC EXAM IMHISTOCH 34257 [facility]AL[facility]I SCALF LEI EM/CYTCHM 6 1ST ANTIBODY STAIN PROCEDURE BX SKIN 13626 SCALF LEI SCALF LEI SUBCUTANE 6 OUS&/MUCO US MEMBRANE 1 LESION ECG 71239 [facility] ROUTINE 6 [facility] W/LEAST P 12 LDS I&R ONLY ECG 45179 [facility] ANDRES ROUTINE 6 [facility] ECG MEDICAL W/LEAST GROUP 12 LDS I&R ONLY COLLECTIO 97122 [facility] N VENOUS 6 [facility] BLOOD [facility] VENIPUNCT URE HEMOGLOBI 50032 [facility] N 6 [facility]ALTH [facility] GLYCOSYLA [facility] LANEY A1C BLOOD 21829 [facility] COUNT 6 [facility] COMPLETE [facility] AUTOMATED LOCM Q9967 [facility]INESS 300-399 6 HEALTH HEALTH MG/ML [facility] IODINE CONCENTRA TION PER ML GONADOTRO 75298 [facility] PIN 6 [facility]ALTH [facility] CHORIONIC [facility] QUANTITAT SABIHA BASIC 51787 [facility] METABOLIC 6 [facility]ALTH HEALTH PANEL [facility] CALCIUM TOTAL INJECTION J3010 [facility] FENTANYL 6 [facility] CITRATE [facility] 0.1 MG CATH PLMT 30295 DOMINICK Ortega HRT & 6 [employer] [facility] MEDICAL W/NJX & GROUP ANGIO IMG S&I INJECTION J1644 [facility] HEPARIN 6 [facility] SODIUM [facility] PER 1000 UNITS LIPID 20154 [facility]INESS PANEL 6 [facility] MYOCARDIA 01315 [place] Ortega SPECT 6 [facility] MULTIPLE INC INC STUDIES TECHNETIU A9500 [place] Montenegro TC-99M 6 [facility] SESTAMIBI INC INC DX PER STUDY DOSE CV STRS 00987 [place] TST 6 [facility] XERS&/OR INC INC RX CONT ECG TRCG ONLY CV STRS 75544 [place] TST 6 [facility]/OR [facility] RX CONT P P ECG W/O I&R CV STRS 88564 [place] TST 6 [facility]/OR [facility] RX CONT P P ECG I&R ONLY ECHO 79232 [place] TTHRC R-T 6 [facility] 2D INC INC W/WOM-MOD E COMPL SPEC&COLR D ECG 73519 [place] CHAVEZ JR ROUTINE 6 [facility] W/LEAST P 12 LDS I&R ONLY RADIOLOGI 79162 [place] [facility] ALL C 6 MEDICAL EXAMINATI IMAGING ON CHEST ASS SINGLE VIEW FRONTAL OPHTH 14059 [facility] 6 XM&EVAL COMPRHNSV ESTAB PT 1/> [place] [address] [facility] IRON 6 [place] [address] LAB [facility] FOLIC 6 MAI MAI ACID [facility] SERUM 25 92563 [facility] HYDROXY 6 MAI MAI INCLUDES [facility] [place] [address] LAB [facility] LAB [facility]ESH TOCOPHERO 6 MAI MAI L ALPHA [place] [address] LAB [facility] LAB MAHESH THIAMINE- 6 MAI MAI VITAMIN HOLDINGS [place] B-1 [place] [address] LAB [facility] LAB MAHESH MAGNESIUM 6 [place] [address] LAB [facility] LAB MAHESH PHOSPHORU 6 MAI MAI S [facility]INGS HOLDINGS INORGANIC ORGANIC 79106 LAB [facility] LAB MAHESH ACID 1 6 MAI MAI QUANTITAT [place] [address] LAB [facility] MAHESH PARATHORM 6 [place] [address] LAB [facility] LAB MAHESH FERRITIN 6 [place] [address] LAB [facility] LAB MAHESH VITAMIN A 6 MAI MAI [facility]INGS HOLDINGS PREALBUMI 32380 LAB MA[facility] LAB MAHESH N 6 [place] [address] LAB [facility] LAB [facility] ZINC 6 MAI MAI HOLDINGS HOLDINGS BLOOD 73886 [facility] LAB [facility]ESH COUNT 6 MAI MAI COMPLETE [facility]INGS HOLDINGS AUTO&AUTO DIFRNTL WBC COMPREHEN 69558 [facility] LAB MAHESH SIVE 6 MAI MAI METABOLIC [facility]INGS HOLDINGS PANEL COMPREHEN 27721 [place] SIVE 6 [facility] METABOLIC INC INC PANEL IRON 26715 [place] TALLEYON BINDING 6 [facility] CAPACITY INC INC BLOOD 94055 [place] COUNT 6 [facility] COMPLETE INC INC AUTO&AUTO DIFRNTL WBC COLLECTIO 91322 [place] [facility] N VENOUS 6 [facility] [place] [address] [place] VAUGHN FERRITIN [address] [place] [address] [place] [facility] THYROID 6 [facility] STIMULATI INC INC NG HORMONE TSH 25 69137 [place] HYDROXY 6 [facility] INCLUDES INC [place] [address] [place] IRON 6 [facility] INC INC IADNA 84547 [facility] CHLAMYDIA 6 LLC TRACHOMAT IS AMPLIFIED PROBE TQ IADNA 49249 [facility] HUMAN [facility] PAPILLOMA VIRUS HIGH-RISK TYPES IADNA 84387 [facility], [facility] NEISSERIA 6 [facility] GONORRHOE AE AMPLIFIED PROBE TQ CYTP C/V 43913 [facility], [facility] AUTO THIN 6 [facility] LYR PREPJ SCR MNL RESCR PHYS CYTP 09665 [facility], [facility] CERVICAL/ 6 LLC VAGINAL REQ INTERP PHYSICIAN COLLECTIO 86772 [facility] BLOOD [facility] INC VENIPUNCT URE BASIC 99352 [facility] METABOLIC 6 [facility] [place] [address] [facility] THYROID 6 [facility] STIM[facility] [place] [address] [facility] THIAMINE- [facility] VITAMIN INC INC B-1 ORGANIC 99524 [facility] ACID 1 6 [facility] [place] [address] [facility] FERRITIN [facility] [place] [address] [facility] IRON 6 [facility] INC INC COLLECTIO 91358 [facility] N VENOUS 6 [facility] BLOOD INC INC VENIPUNCT URE BLOOD 99575 [facility] COUNT 6 [facility] COMPLETE INC INC AUTO&AUTO DIFRNTL WBC PREALBUMI 91990 [facility] N 6 [facility] COMPREHEN 50628 [facility] SIVE 6 [facility] METABOLIC INC INC PANEL PREALBUMI 40036 [facility] N 5 [facility] [place] [address] [facility] IRON 5 [facility] [place] [address] [facility] FOLIC 5 MAI [place] [place] [address] [facility] FERRITIN 5 MAI [facility] HOLDINGS ORGANIC 78481 [facility] ACID 1 5 [facility]AT [facility] [place] [address] [facility] THIAMINE- 5 [facility] VITAMIN [facility] B-1 GENERAL 65691 [facility] HEALTH 5 [facility] PANEL [facility] HOLDINGS BX SKIN 17803 [facility] SUBCUTANE 5 TRA TRA OUS&/MUCO US MEMBRANE 1 LESION DESTRUCTI 01087 [facility]KINS ON 5 TRA TRA PREMALIGN ANT LESION 1ST DESTRUCTI 12297 [facility]KINS ON BENIGN 5 TRA TRA LESIONS UP TO 14 BIOPSY 33544 [facility] SKIN 5 TRA TRA SUBQ&/MUC [place] [address] SCALF LEI SCALF LEI SURG 5 PATHOLOGY GROSS&BRYCE ROSCOPIC EXAM COMPREHEN 09520 [facility] SIVE 5 [facility] METABOLIC [facility] PANEL PREALBUMI 19633 [facility] N 5 MAI MAI [facility] HOLDINGS BLOOD 62719 [facility] COUNT 5 [facility] COMPLETE [facility] HOLDINGS AUTO&[place] [address] [facility] IRON 5 [place] [address] [facility] FOLIC 5 [facility] ACID HOLDINGS HOLDINGS SERUM ORGANIC 36937 LAB [facility] ACID 1 5 [facility] QUANTITAT [place] [address] LAB [facility] THIAMINE- 5 [facility] VITAMIN HOLDINGS HOLDINGS B-1 COMPUTER- 70020 [facility] AIDED 5 MEDICAL [facility] DETECTION IMAGING ASS SCREENING MAMMOGRAP HY SCREENING G0202 [facility] 5 MEDICAL CARMEN MAMMOGRAP IMAGING HY WILBERT ASS INCL CAD WHEN PERFORMD LIPID 94811 [facility] PANEL 5 [facility] INC INC COMPREHEN 85491 [facility] SIVE 5 [facility] METABOLIC INC INC PANEL COLLECTIO 19162 [facility] N VENOUS 5 [facility] BLOOD INC INC VENIPUNCT URE BLOOD 23625 [facility] COUNT 5 [facility] COMPLETE INC INC AUTO&AUTO DIFRNTL WBC HEMOGLOBI 12343 [facility] N 5 [facility] GLYCOSY[place] [address] [facility] THYROID 5 [facility] STIMULATI INC INC NG HORMONE TSH CYANOCOBA 35715 [facility] LYUBOV 5 [facility] VITAMIN [place] B-12 [place] [address] [facility] GLUTAMYLT 5 [facility] RASE INC INC GAMMA 25 64301 [facility] HYDROXY 5 [facility] INCLUDES INC INC FRACTIONS IF PERFORMED OPHTH 68396 [facility] SCIFRES MEDICAL 5 ANG ANG XM&EVAL COMPRHNSV ESTAB PT 1/> [place] [address] [facility] ABDOMEN & 5 N N PELVIS COMMUNTIY COMMUNTIY W/[place] [address] [facility] ABDOMEN & 5 [facility] PELVIS INC INC W/CONTRAS T MATERIAL COMPREHEN 66904 [facility] SIVE 5 [facility] METABOLIC INC INC PANEL URNLS DIP 26814 [facility] STICK/TAB INC INC LET REAGENT AUTO MICROSCOP Y BLOOD 47917 [facility] [facility] COMPLETE INC INC AUTO&[place] [address] [facility] [facility] AMYLASE 5 [place] [address] [facility] LIPASE 5 [facility] INC INC CULTURE 30704 [place] [facility] BACTERIAL 5 [facility] INC INC QUANTTATI VE COLONY COUNT URINE URINE 63643 [facility] [facility] TEST INC [place] [address] [facility] LIPASE 5 N N COMMUNTI[place] [address] [facility] THIAMINE- 5 N N VITAMIN COMMUNTIY COMMUNTIY B-[place] [address] [facility] TOCOPHERO 5 N N L ALPHA COMMUNTIY COMMUNTIY [place] [address] [facility] VITAMIN A 5 N N [place] [address] [facility] PHOSPHORU 5 N N S COMMUNTIY COMM[place] [address] [facility] PARATHORM 5 N N ONE COMMUNTIY COMMUNTIY HOSPITA HOSPITA ORGANIC 40390 [facility] ACID 1 5 N N QUANTITAT COMMUNTIY [place] [address] [facility] MAGNESIUM 5 N N COMMUN[place] [address] [facility] AMYLASE 5 N N COMMUNTIY COMMUNTIY HOSPITA HOSPITA 25 71298 [facility] HYDROXY 5 N N INCLUDES COMMUNTIY COMMUNTIY FRACTIONS [place] [address] [facility] FOLIC 5 N N ACID COMMUNTIY [place] [address] [facility] ZINC 5 N N COMMUNTIY COMMUNTIY HOSPITA HOSPITA BLOOD 10726 [facility] COUNT 5 N N COMPLETE COMMUNTIY COMMUNTIY AUTO&AUTO HOSPITA HOSPITA DIFRNTL WBC PREALBUMI 86578 [facility] N 5 N N COMMUNTIY COMMUNTIY HOSPITA HOSPITA COMPREHEN 26025 [facility] SIVE 5 N N METABOLIC COMMUNTIY COMMUNTIY PANEL HOSPITA HOSPITA COLLECTIO 30659 [facility] N VENOUS 5 N N BLOOD COMMUNTIY COMMUNTIY [place] [address] [facility] ABDOMINAL 5 N N REAL COMMUNTIY COMMUNTIY TIME HOSPITA HOSPITA W/[place] [address] [facility] [facility] RETROPERI 5 [facility] TONEAL INC [place] W/[place] [address] [place] KADIE RETROPERI 5 MEDICAL TONEAL IMAGING REAL TIME ASS W/IMAGE LIMITED PROTHROMB 92138 [facility] IN TIME 5 N N COMMUNTIY COMMUNTIY HOSPITA HOSPITA HEPATITIS 19468 [facility] B CORE 5 N N ANTIBODY COMMUNTIY COMMUNTIY HBCAB HOSPITA HOSPITA TOTAL HEPATITIS 78231 [facility] B SURF 5 N N ANTIBODY COMMUNTIY [place] [address] [facility] HEPATITIS 5 N N B COMMUNTIY COMMUNTIY SURFACE HOSPITA HOSPITA ANTIGEN COLLECTIO 89829 [facility] N VENOUS 5 N N BLOOD COMMUNTIY COMMUNTIY VENIPUNCT HOSPITA HOSPITA URE COMPREHEN 48460 [facility] SIVE 5 N N METABOLIC COMMUNTIY COMMUNTIY PANEL HOSPITA HOSPITA ALPHA-1-A 81033 [facility] NTITRYPSI 5 N N N TOTAL COMMUNTIY COMMUNTIY HOSPITA HOSPITA IRON 99566 [facility] BINDING 5 N N CAPACITY COMMUNTI[place] [address] [facility] GAMMAGLOB 5 N N ULIN IGA COMMUNTIY COMMUNTIY IGD IGG HOSPITA HOSPITA IGM EACH BLOOD 10754 [facility] COUNT 5 N N COMPLETE COMMUNTIY COMMUNTIY AUTOMATED HOSPITA HOSPITA HEPATITIS 69317 [facility] C 5 N N ANTIBODY COMMUNTIY [place] [address] [facility] IRON 5 N N [place] [address] [facility] FERRITIN 5 N N COMMUNTIY COMMUNTIY HOSPITA HOSPITA IMMUNOASS 85567 [facility] AY 5 N N ANALYTE COMMUNTIY COMMUNTIY QUAL/SEMI HOSPITA HOSPITA QUAL MULTIPLE STEP ANTINUCLE 63909 [facility] AR 5 N N ANTIBODIE COMMUNTI[place] [address] [facility] ABDOMEN & 5 MEDICAL PELVIS IMAGING W/O ASS CONTRAST MATERIAL DUP-SCAN 28176 [facility] [place] ANDREWS XTR VEINS 5 RADIOLOGY [place] [address] [facility] LIPASE 5 N N COMMUNTIY [place] [address] [facility] AMYLASE 5 N N COMMUNTIY COMMUNTIY HOSPITA HOSPITA BLOOD 69730 [facility] COUNT 5 N N COMPLETE COMMUNTIY COMMUNTIY AUTO&AUTO HOSPITA HOSPITA DIFRNTL WBC COMPREHEN 10167 [facility] SIVE 5 N N METABOLIC COMMUNTIY COMMUNTIY PANEL HOSPITA HOSPITA COLLECTIO 84704 [facility] N VENOUS 5 N N BLOOD COMMUNTIY COMMUNTIY [place]IP[place] [address] [facility] [place] SCALF HUBER TRACT 5 RADIOLOGY UPPER W/WO DELAYED IMAGES W/KUB ANES IPR 59732 [place] BRITTNY ANT UPPER 5 ANESTHESI ABDOMEN A GROUP LAPS PS GASTRIC RSTCV MO LAPS 80130 [facility] SANCHEZ MICHELLE GSTRC 5 RSTRICTIV BARIATRIC PX SURGICAL LONGITUDI NAL GASTRECTO MY LAPAROSCO 4382 [facility] PIC 5 N N VERTICAL COMMUNTIY COMMUNTIY SLEEVE HOSPITA HOSPITA GASTRECTO MY OTHER 4513 [facility] ENDOSCOPY 5 N N OF SMALL COMMUNTIY COMMUNTIY HOSPITA HOSPITA INTESTINE APPL 25775 [facility] [facility] MODALITY 5 [facility] 1/> AREAS INC INC ELEC STIMJ UNATTENDE D APPL 64060 [place] [facility] MODALITY 5 [facility] 1/> AREAS INC INC ULTRASOUN D EA 15 MIN APPLICATI 40699 [place] [facility] ON 5 [facility] MODALITY INC INC 1/> AREAS HOT/COLD PACKS DUP-SCAN 86318 SEJ[facility] CANSECO XTR VEINS 5 MEDICAL ADRIANNA COMPLETE IMAGING ASS BILATERAL STUDY COMPREHEN 14555 [facility] SIVE 5 N N METABOLIC COMMUNTIY COMMUNTIY PANEL HOSPITA HOSPITA BLOOD 71200 [facility] COUNT 5 N N COMPLETE COMMUNTIY COMMUNTIY AUTOMATED HOSPITA HOSPITA GONADOTRO 18873 [facility] PIN 5 N N CHORIONIC COMMUNTIY COMMUNTIY HOSPITA HOSPITA QUALITATI VE COLLECTIO 84445 [facility] N VENOUS 5 N N BLOOD COMMUNTIY COMMUNTIY VENIPUNCT HOSPITA HOSPITA URE THERAPEUT 06039 [facility] [facility] IC PX 1/> 5 [facility] AREAS INC INC EACH 15 MIN EXERCISES APPL 20251 [place] [facility] MODALITY 5 [facility] 1/> AREAS INC INC ELEC STIMJ UNATTENDE D APPL 01482 [place] [facility] MODALITY 5 [facility] 1/> AREAS INC INC ULTRASOUN D EA 15 MIN APPLICATI 17783 [place] [facility] ON 5 [facility] MODALITY INC INC 1/> AREAS HOT/COLD PACKS CUL BACT 15801 [place] [facility] XCPT 5 [facility] URINE INC INC BLOOD/STO OL AEROBIC ISOL SUSCEPTIB 26278 [facility] [facility] LTY STDY 5 [facility] ANTIMICRB INC INC IAL MICRO/AGA R DILUTJ APPL 51511 [place] [facility] MODALITY 5 [facility] 1/> AREAS INC INC ELEC STIMJ UNATTENDE D THERAPEUT 30522 [facility] [facility] IC PX 1/> 5 [facility] AREAS INC INC EACH 15 MIN EXERCISES APPLICATI 14432 [place] [facility] ON 5 [facility] MODALITY INC INC 1/> AREAS HOT/COLD PACKS APPL 41768 [place] [facility] MODALITY 5 [facility] 1/> AREAS INC INC ULTRASOUN D EA 15 MIN APPL 46079 [place] [facility] MODALITY 5 [facility] 1/> AREAS INC INC ULTRASOUN D EA 15 MIN APPLICATI 59569 [place] [facility] ON 5 [facility] MODALITY INC INC 1/> AREAS HOT/COLD PACKS APPL 33126 [place] [facility] MODALITY 5 [facility] 1/> AREAS INC INC IONTOPHOR ESIS EA 15 MIN APPL 83772 [place] MODALITY 5 [facility] 1/> AREAS INC INC ELEC STIMJ UNATTENDE D APPL 61276 [place] MODALITY 5 [facility] 1/> AREAS INC INC ELEC STIMJ UNATTENDE D THERAPEUT 23658 [place] IC PX 1/> 5 [facility] AREAS INC INC EACH 15 MIN EXERCISES APPL 95761 [place] [facility] MODALITY 5 [facility] 1/> AREAS INC INC IONTOPHOR ESIS EA 15 MIN APPLICATI 58421 [place] [facility] ON 5 [facility] MODALITY INC INC 1/> AREAS HOT/COLD PACKS APPL 02729 [place] [facility] MODALITY 5 [facility] 1/> AREAS INC INC ULTRASOUN D EA 15 MIN CUL 79193 [facility] PRSMPTV 5 N N PTHGNC COMMUNTIY COMMUNTIY ORGANISM HOSPITA HOSPITA SCRN W/[place] [address] [facility] THYROXINE 5 N N TOTAL COMMUNTIY [place] [address] [facility] THYROID 5 N N STIMULATI COMMUNTIY COMMUNTIY NG HOSPITA HOSPITA HORMONE TSH ECG 25467 [facility] ROUTINE 5 N N ECG COMMUNTIY COMMUNTIY W/LEAST HOSPITA HOSPITA 12 LDS TRCG ONLY W/O I&R COLLECTIO 85705 [facility] N VENOUS 5 N N BLOOD COMMUNTIY COMMUNTIY VENIPUNCT HOSPITA HOSPITA URE RADIOLOGI 34909 [facility] C EXAM 5 N N CHEST 2 COMMUNTIY COMMUNTIY VIEWS HOSPITA HOSPITA FRONTAL&L ATERAL COMPREHEN 75210 [facility] SIVE 5 N N METABOLIC COMMUNTIY COMMUNTIY PANEL HOSPITA HOSPITA BLOOD 46529 [facility] COUNT 5 N N COMPLETE COMMUNTIY COMMUNTIY AUTOMATED HOSPITA HOSPITA THYROID 07583 [facility] HORM 5 N N UPTK/THYR COMMUNTIY COMMUNTIY OID HOSPITA HOSPITA HORMONE BINDING RATIO LIPID 27411 [facility] PANEL 5 N N COMMUNTIY COMMUNTIY HOSPITA HOSPITA PHYSICAL 41189 [place] [facility] THERAPY 5 [facility] EVALUATIO INC INC N FIBRIN 16155 [place] [facility] DGRADJ 5 [facility] PRODUCTS INC INC D-DIMER QUAL/SEMI GILBERT COLLECTIO 67115 [place] [facility] N VENOUS 5 [facility] BLOOD INC INC VENIPUNCT URE RADIOLOGI 42278 [facility] [facility] C EXAM 5 [facility] CHEST 2 INC INC VIEWS FRONTAL&L ATERAL ECG 30599 [place] CHAVEZ JR ROUTINE [address] [facility] W/LEAST P 12 LDS I&R ONLY COMPREHEN 15876 [place] [facility] SIVE 5 [facility] [place] [address] [place] [facility] TROPONIN 5 [facility] QUANTITAT INC INC SABIHA BLOOD 84262 [place] [facility] COUNT 5 [facility] COMPLETE INC INC AUTO&AUTO DIFRNTL WBC URNLS DIP 28509 [place] [facility] STICK/TAB INC INC LET REAGENT AUTO MICROSCOP Y ECG 58522 [place] [facility] ROUTINE 5 [facility] ECG INC INC W/LEAST 12 LDS TRCG ONLY W/O I&R ECG 10853 [place] [facility] ROUTINE 5 [facility] ECG INC INC W/LEAST 12 LDS TRCG ONLY W/O I&[place] [address] [place] [facility] ANGIOGRAP 5 [facility] HY CHEST INC INC W/CONTRAS T/NONCONT RAST BLOOD 93087 [place] [facility] COUNT 5 [facility] COMPLETE INC INC AUTO&AUTO DIFRNTL WBC LOCM Q9967 [place] [facility] 300-399 5 [facility] MG/ML INC INC [place] [address] [place] [facility] TROPONIN 5 [facility] QUANTITAT INC INC SABIHA COMPREHEN 23657 [place] [facility] SIVE 5 [facility] METABOLIC INC INC PANEL ECG 80823 [place] GIOVANI ROUTINE 5 [facility] W/LEAST P 12 LDS I&R ONLY RADIOLOGI 93232 [place] [facility] C EXAM 5 [facility] CHEST 2 INC INC VIEWS FRONTAL&L ATERAL FIBRIN 90975 [place] [facility] DGRADJ 5 [facility] PRODUCTS INC INC D-DIMER QUAL/SEMI GILBERT RADEX 19955 [place] SHOULDER 4 MEDICAL COMPLETE IMAGING MINIMUM 2 ASS VIEWS LEVEL III 20089 SCALF LEI SCALF LEI SURG 4 PATHOLOGY GROSS&BRYCE ROSCOPIC EXAM REPAIR 08453 ATKINS ATKINS COMPLEX 4 TRA TRA SCALP/ARM /LEG 1.1-2.5 CM DESTRUCTI 90442 ATKINS ATKINS ON BENIGN 4 [place] [address] [place] [address] [place] HEAD/BRAI 4 MEDICAL ADRIANNA N W/O IMAGING CONTRAST ASS MATERIAL THERAPEUT 43484 [place] TALLEYON IC 4 [facility] INJECTION INC INC [place] [address] [facility] WANDA PATHOLOGY GROSS&BRYCE ROSCOPIC EXAM SPECIAL 79397 [facility] STAIN [facility] GROUP 1 MICROORGA NISMS I&R SPCL STN 55239 [facility], [facility] 2 I&R 4 [facility] ER JR WANDA EXCPT MICROORG/ ENZYME/IM CYT ANES 60360 [place] BENSON UPPER GI 4 ANESTHESI JOSE ANGEL ENDOSCOPY A GROUP PROXIMAL PS TO DUODENUM EGD 78487 [facility] TRANSORAL 4 N N BIOPSY COMMUNITY COMMUNITY SINGLE/MU HOSPITA HOSPITA LTIPLE SPMTRY 03937 [place] [facility] W/VC 4 [facility] EXPIRATOR INC INC Y ABHI W/WO MXML VOL VNTJ LEVEL III 21243 SCALF LEI SCALF LEI SURG 4 PATHOLOGY GROSS&BRYCE ROSCOPIC EXAM EXC B9 99377 ADVANCED SCALF LEI LESION 4 DERMATOLO MRGN XCP GY SK TG S/N/H/F/G 1.1-2.0CM REPAIR 48112 ADVANCED SCALF LEI COMPLEX 4 DERMATOLO SCALP/ARM GY /LEG 1.1-2.5 CM RADIOLOGI 33860 [place] C EXAM 4 MEDICAL ADRIANNA CHEST 2 IMAGING VIEWS ASS FRONTAL&L ATERAL REMOVAL 46642 ATKINS ATKINS SKN TAGS 4 TRA TRA WARP KNITTER FIBRQ TAGS ANY AREA UPW/15 CV STRS 89655 [place] MATUTE TST 4 [facility] XERS&/OR HOSPITAL RX CONT P ECG I&R ONLY CV STRS 24705 [place] [facility] TST 4 [facility] XERS&/OR INC INC RX CONT ECG TRCG ONLY ECHO 23461 [place] [facility] TTHRC R-T 4 [facility] 2D INC INC W/WOM-MOD E COMPL SPEC&COLR D RADIOLOGI 12424 [place] C EXAM 4 MEDICAL CARMEN CHEST 2 IMAGING VIEWS ASS FRONTAL&L ATERAL BASIC 19111 [place] [facility] METABOLIC 4 [facility] PANEL INC INC CALCIUM TOTAL RADIOLOGI 37945 HAR[facility] HARLEEN C 4 ADRIANNA ADRIANNA EXAMINATI ON CHEST SINGLE VIEW FRONTAL ECG 44388 [place] [facility] ROUTINE 4 [facility] ECG INC INC W/LEAST 12 LDS TRCG ONLY W/O I&R ECG 21207 SCOTT CHAVEZ JR ROUTINE 4 DWI DWI ECG W/LEAST 12 LDS I&[place] [address] [facility] [facility] TROPONIN 4 [facility] QUANTITAT INC INC SABIHA BLOOD 37604 [place] [facility] COUNT 4 [facility] COMPLETE INC INC AUTO&AUTO DIFRNTL WBC BLOOD 59493 [place] [facility] COUNT 4 [facility] COMPLETE INC INC AUTO&[place] [address] [place] [facility] TROPONIN 4 [facility] QUANTITAT INC INC SABIHA ECG 91425 ANKUR ANKUR ROUTINE 4 BRYCE BRYCE ECG W/LEAST 12 LDS I&R ONLY FIBRIN 82847 [place] [facility] DGRADJ 4 [facility] PRODUCTS INC INC D-DIMER QUAL/SEMI GILBERT COMPREHEN 22279 [place] [facility] SIVE 4 [facility] METABOLIC INC INC PANEL ECG 83073 [place] [facility] ROUTINE 4 [facility] ECG INC INC W/LEAST 12 LDS TRCG ONLY W/O I&R CREATINE 71248 [place] [facility] KINASE MB 4 [facility] FRACTION INC INC ONLY CREATINE 29064 [place] [facility] KINASE 4 [facility] TOTAL INC INC RADIOLOGI 05555 CHANEL BUCHANAN D C EXAM 4 CHEST 2 VIEWS FRONTAL&L ATERAL HEMOGLOBI 44241 COMBINED COMBINED N 4 PHYSICIAN PHYSICIAN GLYCOSYLA S LA S LA LANEY A1C SEDIMENTA 55302 COMBINED COMBINED TION RATE 4 PHYSICIAN PHYSICIAN RBC S LA S LA NON-AUTOM ATED CYANOCOBA 92412 COMBINED COMBINED LYUBOV 4 PHYSICIAN PHYSICIAN VITAMIN S LA S LA B-12 [place] [address] COMBINED COMBINED FREE 4 PHYSICIAN PHYSICIAN THYROXINE S LA S LA GENERAL 36564 COMBINED COMBINED HEALTH 4 PHYSICIAN PHYSICIAN PANEL S LA S LA 25 63582 COMBINED COMBINED HYDROXY 4 PHYSICIAN PHYSICIAN INCLUDES S LA S LA FRACTIONS IF PERFORMED LIPID 90220 COMBINED COMBINED PANEL 4 PHYSICIAN PHYSICIAN S LA S LA COMPUTER- 04733 [place] AIDED 4 MEDICAL ADRIANNA DETECTION IMAGING ASS SCREENING MAMMOGRAP HY SCREENING G0202 [place] HARLEEN 4 MEDICAL ADRIANNA MAMMOGRAP IMAGING HY WILBERT ASS INCL CAD WHEN PERFORMD LIPID 23879 [facility] PANEL 4 DIAGNOSTI DIAGNOSTI CS CS IIV3 52387 DHS/CO [place] VACCINE 9 [facility] VIRUS 0.5 BANK ACCT ML DOSAGE IM USE RADEX 91466 KIMBERLEE SANCHEZEY, SPINE 9 [facility] COMPL ON W/BENDING VIEWS MIN 6 RADIOLOGI 44523 [place] [facility] C 9 [facility] EXAMINATI INC INC ON PELVIS 1/2 VIEWS RADEX 21991 [place] [facility] SPINE 9 [facility] LUMBOSACR INC INC AL MINIMUM 4 VIEWS RADEX HIP 55252 [place] SUMA, 9 MEDICAL MAX [place] UN[facility] IMAGING L ASSOCIATE COMPLETE S MINIMUM 2 VIEWS Encounters Encounter Start End Date Code Location Performer Type Date [facility] [place] [facility] T [facility] 90649 [facility] T VISIT INC 10 MINUTES OFFICE 75957 [place] [facility] 7 7 [facility] T VISIT INTERNAL 15 MED MINUTES [facility] [place] [facility] OUTPATIEN INC T [facility] [place] [facility] OUTPATIEN INC T EMERGENCY 02773 [place] 7 7 [facility] DEPARTMEN INC T VISIT MODERATE SEVERITY EMERGENCY 48470 [facility] SUGGS 7 7 PHYSICIAN DEPARTMEN S, PLLC T VISIT HIGH/URGE NT SEVERITY OFFICE 41481 [facility] 7 7 PHYSICIAN T VISIT S GROUP 15 MINUTES [facility] [place] [facility] OUTPATIEN INC T [facility] [place] [facility] OUTPATIEN INC T OFFICE 29009 [facility] 7 7 HEALTH T VISIT MEDICAL 25 GROUP MINUTES EMERGENCY 09191 [facility] PASCUAL 7 7 PHYSICIAN DEPARTMEN S, PLLC T VISIT MODERATE SEVERITY EMERGENCY 37271 [place] 7 7 [facility] DEPARTMEN INC T VISIT LOW/MODER SEVERITY EMERGENCY 59160 [facility] PASCUAL 7 7 PHYSICIAN DEPARTMEN S, PLLC T VISIT MODERATE SEVERITY [facility] - 7 7 [facility] OUTPATIEN [place] T OFFICE 13632 [place] [facility] 7 7 [facility] T VISIT 5 INC MINUTES [facility] [place] [facility] OUTPATIEN INC T [facility] [place] [facility] 7 [facility] OUTPATIEN INC T EMERGENCY 32239 [place] 7 7 [facility] DEPARTMEN INC T VISIT LOW/MODER SEVERITY EMERGENCY [address] [facility] DEPT 7 7 PHYSICIAN VISIT S, PLLC HIGH SEVERITY& THREAT FUNCJ OFFICE 73609 [facility] OUTPATIEN 7 7 PHYSICIAN T VISIT S GROUP 10 MINUTES OFFICE 04570 ALLERGY ROSENTHAL OUTPATIEN 7 7 PARTNERS T VISIT OF [place] 25 CO MINUTES [facility] [place] [facility] 7 7 [facility] OUTPATIEN INC T OFFICE 32079 [place] [facility] 7 VALLEY T VISIT INTERNAL 15 MED MINUTES [facility] [place] [facility] 7 [facility] OUTPATIEN INC T EMERGENCY 99042 [place] 7 7 [facility] DEPARTMEN INC T VISIT HIGH/URGE NT SEVERITY EMERGENCY [address] [facility] DEPT 7 7 PHYSICIAN VISIT S, PLLC HIGH SEVERITY& THREAT FUNCJ OFFICE 76418 [place] CHAND 7 7 [facility] T VISIT 5 INC MINUTES [facility] [place] [facility] 7 [facility] OUTPATIEN INC T EMERGENCY 21763 [facility] DEPT 7 7 PHYSICIAN VISIT S, PLLC HIGH SEVERITY& THREAT FUN [facility] [place] [facility] 7 7 [facility] OUTPATIEN INC T EMERGENCY 71693 [place] 7 7 [facility] DEPARTMEN INC T VISIT MODERATE SEVERITY [facility] - 7 7 [facility] OUTPATIEN [place] T OFFICE 86703 [place] ARSLAN OUTPATIEN 7 7 VALLEY T VISIT INTERNAL 15 MED MINUTES [facility]OSPITAL [facility] - 7 7 [facility]ALTH OUTPATIEN [place] T OFFICE 44448 [place] CELI OUTPATIEN 7 7 [facility] T VISIT HOSPITAL 10 P MINUTES OFFICE 55226 [facility] FUNES OUTPATIEN 7 7 HEALTH T VISIT MEDICAL 25 GROUP MINUTES OFFICE 77658 YVETTE AVINA OUTPATIEN 7 7 MD RHIANNON, T VISIT PSC 15 MINUTES [facility] [place] [facility] OUTPATIEN INC T OFFICE 73474 [place] OUTPATIEN 7 7 [facility] T VISIT INC 10 MINUTES OFFICE 12459 [place] [facility]IEN 7 7 [facility] T VISIT 5 INC MINUTES [facility] [place] [facility] 7 7 [facility] OUTPATIEN INC T OFFICE 36991 [place] WEISS JR OUTPATIEN 7 7 [facility] 10 P MINUTES [facility] [place] [facility] 7 [facility] OUTPATIEN INC T EMERGENCY 49990 [place] 7 7 [facility] DEPARTMEN INC T VISIT LOW/MODER SEVERITY EMERGENCY 94965 [facility] PASCUAL DEPT 7 7 PHYSICIAN VISIT S, [facility] HIGH SEVERITY& THREAT [facility] [place] [facility] 7 7 [facility] OUTPATIEN INC T OFFICE 99347 [place] CELI OUTPATIEN 7 7 [facility] T VISIT HOSPITAL 10 P MINUTES EMERGENCY 23877 [place] 7 [facility] T VISIT HIGH/URGE NT SEVERITY [facility] [place] [facility] 7 7 [facility]EN [facility] [place] [facility] 7 7 [facility] OUTPATIEN [facility] T PERIODIC 75335 [facility] HUMPHREY PREVENTIV 7 7 PHYSICIAN E MED EST S GROUP PATIENT [id number] OFFICE 53884 LUIS MATUTE OUTPATIEN 7 7 VALLEY T VISIT INTERNAL 15 MED MINUTES [facility] [place] [facility] 7 7 [facility] OUTPATIEN [facility] T OFFICE 54783 [facility] ISSA OUTPATIEN 7 7 PHYSICIAN T VISIT S GROUP 15 MINUTES EMERGENCY 03997 [facility] JAQUEZ 7 7 PHYSICIAN DEPARTMEN S, [facility] T VISIT HIGH/URGE NT SEVERITY OFFICE 25918 [place] ALATORRE OUTPATIEN 7 7 [facility] T VISIT [facility] 10 P MINUTES [facility] [place] [facility] [place] [facility] T OFFICE 84622 YVETTE JURADO OUTPATIEN 7 7 MD RHIANNON, T VISIT PSC 10 MINUTES [facility] [place] [facility] [place] [facility]PATIEN [facility] T OFFICE 31177 [facility] [place] KIMBERLY OUTPATIEN 7 7 PHYSICIAN T VISIT S GROUP 25 MINUTES OFFICE 70909 YVETTE AVINA OUTPATIEN 7 7 MD RHIANNON, T NEW 30 PSC MINUTES OFFICE 41817 [facility] MAEGAN OUTPATIEN 7 7 PHYSICIAN T VISIT S GROUP 10 MINUTES OFFICE 80145 [place] [facility] 7 7 [facility] T VISIT 5 INC MINUTES [facility] [place] [facility] [place] [facility] OUT[facility]IEN INC T EMERGENCY 08823 SMILEY SOTOMAYOR 7 7 PHYSICIAN JR DEPARTMEN S, [facility] T VISIT HIGH/URGE NT SEVERITY OFFICE 94482 [facility] KIMBERLY OUTPATIEN 7 7 PHYSICIAN T VISIT S GROUP 25 MINUTES [facility] [place] [facility] OUTPATIEN INC T OFFICE 27853 [place] OUTPATIEN 7 7 [facility] T VISIT INTERNAL 15 MED MINUTES [facility] [place] [facility] OUTPATIEN INC T OFFICE 18692 [facility] KIMBERLY OUTPATIEN 7 7 PHYSICIAN T VISIT S GROUP 25 MINUTES OFFICE 70033 ANGELITO DAAMS OUTPATIEN 7 7 [place] T VISIT ORTHOPAED 15 IC MINUTES EMERGENCY 98251 [place] 7 7 [facility] DEPARTMEN INC T VISIT HIGH/URGE NT SEVERITY EMERGENCY 44127 S[facility] ARMIJO DEPT 7 7 PHYSICIAN [facility]IT [facility] SEVER[facility]& THREAT FUN [facility] [place] [facility] 7 [facility] OUT[facility] INC T OFFICE 51166 [place] OUTPATIEN 7 7 MAHNOMEN T VISIT INTERNAL 25 MED MINUTES [facility] [place] [facility] OUT[facility] INC T OFFICE 60240 [place] [facility] 7 7 [facility] T VISIT 5 INC MINUTES OFFICE 03679 ANGELITO DUARTE OUTPATIEN 7 7 CONNECTICUT T NEW 30 ORTHOPAED MINUTES IC EMERGENCY 00191 [place] 7 7 [facility] DEPARTMEN INC T VISIT LOW/MODER SEVERITY [facility] [place] [facility] OUTPATIEN INC T EMERGENCY 96934 SMILEY JIMENEZ DEPT 7 7 PHYSICIAN U VISIT S, [facility] HIGH SEVERITY& THREAT FUNCJ [facility] [place] [facility] 7 7 [facility] OUTPATIEN INC T EMERGENCY 73145 [place] 7 7 [facility] DEPARTMEN INC T VISIT MODERATE SEVERITY [facility] [place] [facility] 7 [facility]EN [facility] T [facility] [place] [facility] 7 7 [facility] OUTPATIEN INC T EMERGENCY 09284 [place] 7 7 [facility] DEPARTMEN [facility] T VISIT LOW/MODER SEVERITY EMERGENCY 64641 SMILEY PASCUAL 7 7 PHYSICIAN DEPARTMEN S, [facility] T VISIT HIGH/URGE NT SEVERITY [facility] [place] [facility] 7 7 [facility] OUTPATIEN [facility] T OFFICE 15090 [place] [facility] 7 7 [facility] T VISIT 5 INC MINUTES OFFICE 90133 [place] OUT[facility]IEN 7 7 [facility]OM[facility] T VISIT INTERNAL 15 MED MINUTES [facility] [place] [facility] 7 7 [facility] EMERGENCY 62940 [place] 7 7 [facility] T VISIT LOW/MODER SEVERITY EMERGENCY 97550 [facility] [place] 7 7 [facility] EMERGENCY T VISIT PHYS MODERATE SEVERITY [facility] [place] [facility] T OFFICE 27024 [place] [facility] 7 7 [facility] T VISIT 5 INC MINUTES OFFICE 82468 [place] OUT[facility] 7 7 [facility] T VISIT INTERNAL 15 MED MINUTES OFFICE 88855 [place] [facility] 7 7 [facility] T VISIT 5 INC MINUTES EMERGENCY 72870 SMILEY MEDEROS 7 7 PHYSICIAN DEPARTMEN S, [facility] T VISIT MODERATE SEVERITY [facility] [place] [facility] 7 [facility] [place] [facility] INC T OFFICE 87884 [place] [facility] 7 7 [facility] T VISIT 5 INC MINUTES OFFICE 54442 [place] [facility] 7 7 [facility] T NEW 10 INC MINUTES [facility] [place] [facility] INC T OFFICE 49105 [place] OUTPATIEN 7 7 [facility] T VISIT INTERNAL 25 MED MINUTES [facility] - 7 7 [facility] OUTPATIEN [facility] OFFICE 51423 LOUISA JASSO OUTPATIEN 7 7 T VISIT 25 MINUTES EMERGENCY 21551 [place] [facility] T VISIT LIMITED/M [facility] [place] [facility] OUTPATIEN INC T EMERGENCY 68967 [place] [facility] DE[facility] INC T VISIT LOW/MODER SEVERITY [facility] [place] [facility] OUT[facility]EN [facility] T EMERGENCY 36067 SMILEY PASCUAL 7 7 PHYSICIAN RADHA S [facility] SE[facility] [place] [facility] T EMERGENCY 00853 [place] 7 7 [facility] DEPARTMEN INC T VISIT LIMITED[facility]M [facility] [place] - 7 7 [facility]ALTH OUTPATIEN [facility] - 7 7 [facility]ALTH OUTPATIEN [facility] [place] [facility] 6 [facility] OUTPATIEN INC T EMERGENCY 92279 SMILEY SOTOMAYOR 6 6 PHYSICIAN JR GARCIA S, [facility] HIGH/URGE NT SEVERITY OFFICE 36327 [place] [facility] OUTPATIEN 6 6 [facility] T VISIT INTERNAL 15 MED MINUTES EMERGENCY 34486 S[place] JAQUEZ 6 6 PHYSICIAN [facility] S, [facility] T VISIT HIGH/URGE NT SEVERITY EMERGENCY 06766 [place] 6 6 [facility] DE[facility] INC T VISIT MODERATE SEVERITY [facility] [place] [facility] 6 6 [facility] OUT[facility]IEN INC T EMERGENCY 80668 SMLIEY ARMIJO 6 6 [facility] T VISIT MODERATE SEVERITY EMERGENCY 77843 [place] 6 6 [facility] VISIT LOW/MODER SEVERITY EMERGENCY 58309 SMILEY PASCUAL 6 6 PHYSICIAN [facility] T VISIT MODERATE SEVERITY [facility] [place] [facility] 6 6 [facility] OUTPATIEN INC T OFFICE 41666 SCIFRES SCIFRES OUTPATIEN 6 6 ANG ANG T VISIT 10 MINUTES OFFICE 79908 [place] ARSLAN OUTPATIEN [address] [facility] T VISIT INTERNAL 15 MED MINUTES OFFICE 47264 WENDY SANCHEZ MICHELLE OUTPATIEN 6 6 T VISIT BARIATRIC 25 SURGICAL MINUTES EMERGENCY 36025 [place] 6 6 [facility] T VISIT LOW/MODER SEVERITY EMERGENCY 87930 SMILEY SOTOMAYOR 6 6 PHYSICIAN JR BILLINGS [facility] T VISIT HIGH/URGE NT SEVERITY [facility] [place] [facility] 6 6 [facility] OUTPATI[facility] INC T EMERGENCY 68569 SMILEY PASCUAL 6 6 PHYSICIAN BRYCE [facility] S, [facility] T VISIT MODERATE SEVERITY OFFICE 40527 [facility] FALLUJI OUTPATIEN 6 6 [facility] T VISIT MEDICAL 15 G MINUTES [facility] [place] [facility] 6 6 [facility] OUTPATIEN INC T OFFICE 86552 [facility] HUMPHREY OUTPATIEN 6 6 PHYSICIAN MEAGAN T VISIT S GROUP 15 MINUTES OFFICE 31823 [facility] ISSA OUTPATIEN 6 6 PHYSICIAN JARON T VISIT S GROUP 10 MINUTES [facility] [place] [facility] T [facility] [place] [facility] 6 [facility] OUT[facility] INC T EMERGENCY 59909 [place] 6 6 [facility] DEPARTMEN INC T VISIT MODERATE SEVERITY [facility] [place] [facility] 6 6 [facility] OUTPATIEN INC T OFFICE 64441 [facility] ISSA OUTPATIEN 6 6 PHYSICIAN JARON T VISIT S GROUP 10 MINUTES OFFICE 19879 [facility] ANDRES OUTPATIEN 6 6 HEALTH IV HEN T VISIT MEDICAL 15 GROUP MINUTES OFFICE 72106 [place] CELI OUTPATIEN 6 6 [facility] 10 P MINUTES OFFICE 09680 PERLA RODRIGUEZ TRI OUTPATIEN 6 6 GROUND T VISIT FAMILY 25 CLINI MINUTES OFFICE 99721 [facility] T VISIT 5 [facility] DEPT TH DEPT MINUTES [facility] EMERGENCY 71509 SMILEY ARMIJO 6 6 PHYSICIAN CASANDRA GARCIA S, [facility] T VISIT HIGH/URGE NT SEVERITY EMERGENCY 99953 [place] 6 6 [facility] DEPARTMEN INC T VISIT LOW/MODER SEVERITY [facility] [place] [facility]PAT[facility] T [facility] [place] [facility] INC T OFFICE 07258 [facility] 6 6 [facility] T VISIT TH DEPT HLTH DEPT 15 JAZZ JAZZ MINUTES OFFICE 57755 [facility] KIMBERLY OUTPATIEN 6 6 PHYSICIAN MAT T VISIT S GROUP 25 MINUTES OFFICE 07444 WENDY SANCHEZ OUTPATIEN 6 6 T VISIT BARIATRIC 25 SURGICAL MINUTES OFFICE 08863 [facility] KIMBERLY OUTPATIEN 6 6 PHYSICIAN JULIUS T NEW 45 S GROUP MINUTES EMERGENCY 24769 SMILEY PASCUAL 6 6 PHYSICIAN BRYCE [facility]IT MODERATE SEVERITY [facility] [place] 6 6 [facility] OUTPATI[facility] INC T OFFICE 21394 ALLERGY ROSENTHAL MAR OUTPATIEN 6 6 PARTNERS T [facility]IS[facility] OF [place] 40 CO MINUTES EMERGENCY 09130 SMILEY JIMENEZ 6 6 PHYSICIAN Taylor GARCIA S [facility] T VISIT HIGH/URGE NT SEVERITY [facility] [place] 6 6 [facility] OUTPATIEN INC T EMERGENCY 54879 SMILEY PASCUAL 6 6 PHYSICIAN [facility] T VISIT MODERATE SEVERITY EMERGENCY 89874 [place] 6 6 [facility] T VISIT LOW/MODER SEVERITY OFFICE 59922 CINTHYA DONALD OUTPATIEN 6 6 N T VISIT NEUROLOGY 10 MINUTES [facility] [place] [facility] 6 6 [facility] OUT[facility] INC T EMERGENCY 49017 SMILEY SOTOMAYOR, 6 6 PHYSICIAN JR MANUELITO GARCIA S [facility] T VISIT MODERATE SEVERITY [facility] [place] [facility] 6 6 [facility] OUTPATI[facility] INC T EMERGENCY 55289 SMILEY PASCUAL DEPT 6 6 PHYSICIAN BRYCE VISIT S, [facility] HIGH SEVERITY& THREAT FUNCJ OFFICE 73009 [place] ALATORRE OUTPATIEN 6 6 [facility] 10 P MINUTES EMERGENCY 27834 [place] 6 6 [facility] DEPARTMEN INC T VISIT MODERATE SEVERITY EMERGENCY 57916 SMILEY SOTOMAYOR 6 6 PHYSICIAN JR ELZ DEPARTMEN S, PLLC T VISIT HIGH/URGE NT SEVERITY [facility] [place] [facility] 6 6 [facility] OUTPATIEN INC T OFFICE 24088 [facility] OUTPATIEN 6 6 [facility] 10 P MINUTES OFFICE 47191 ALLERGY ROSENTHAL MAR CONSULTAT 6 6 PART[facility]ERS [facility] [place] NEW/ESTAB CO PATIENT 60 MIN EMERGENCY 40707 SMILEY PASCUAL DEPT 6 6 PHYSICIAN BRYCE VISIT S, PLLC HIGH SEVERITY& THREAT FUNCJ EMERGENCY 84222 SMILEY PASCUAL 6 6 PHYSICIAN BRYCE DEPARTMEN S, PLLC T VISIT MODERATE SEVERITY EMERGENCY 92071 SMILEY PASCUAL DEPT 6 6 PHYSICIAN BRYCE VISIT S, PLLC HIGH SEVERITY& THREAT FUNCJ EMERGENCY 49194 SMILEY SUGGS [facility] 6 6 PHYSICIAN DEPARTMEN S, PLLC T VISIT LOW/MODER SEVERITY [facility] [place] [facility] 6 6 [facility] OUTPATIEN INC T OFFICE 70230 [facility] 6 6 PHYSICIAN T VISIT S GROUP 25 MINUTES EMERGENCY 36188 SMILEY PASCUAL 6 6 PHYSICIAN BRYCE DEPARTMEN S, PLLC T VISIT MODERATE SEVERITY [facility] [place] [facility] 6 6 [facility] OUTPATI[facility] INC T EMERGENCY 54609 [place] 6 6 [facility] DEPARTMEN INC T VISIT LOW/MODER SEVERITY [facility]OSPITAL [facility] - 6 6 N OUTPATIEN COMMUNTIY T HOSPITA OFFICE 36068 [facility] 6 PHYSICIAN JARON T NEW 20 S GROUP MINUTES EMERGENCY 77891 SMILEY ARMIJO DEPT 6 6 PHYSICIAN CASANDRA VISIT S, PLLC HIGH SEVERITY& THREAT FUNCJ EMERGENCY 72057 SMILEY PASCUAL 6 6 PHYSICIAN BRYCE DEPARTMEN S, PLLC T VISIT HIGH/URGE NT SEVERITY [facility]OSPITAL [facility] - 6 6 N OUTPATIEN COMMUNTIY T HOSPITA EMERGENCY 96639 SMILEY PASCUAL DEPT 6 6 PHYSICIAN BRYCE VISIT S, PLLC HIGH SEVERITY& THREAT FUNCJ OFFICE 79307 WENDY SANCHEZ MICHELLE OUTPATIEN 6 6 T VISIT BARIATRIC 25 SURGICAL MINUTES EMERGENCY 36899 [facility] 6 6 EMERGENCY HOW DEPARTMEN PHYS PSC T VISIT MODERATE SEVERITY [facility]PITAL [facility] - 6 6 [facility]EN [facility] [place] [facility] 6 6 [facility] OUTPATIEN INC T EMERGENCY 81543 SMILEY BAGLEY DEPT 6 6 PHYSICIAN FOR VISIT S, [facility] HIGH SEVERITY& THREAT FUN EMERGENCY 89494 [place] 6 6 [facility] DEPARTMEN INC T VISIT LOW/MODER SEVERITY EMERGENCY 49761 SMILEY PASCUAL 6 6 PHYSICIAN BRYCE DEPARTMEN S, [facility] T VISIT HIGH/URGE NT SEVERITY [facility] [place] [facility] 6 6 [facility] OUTPATIEN INC T EMERGENCY 40757 SMILEY [facility] 6 6 PHYSICIAN DEPARTMEN S, PLLC T VISIT HIGH/URGE NT SEVERITY [facility]OSPITAL [facility] - 6 6 N OUTPATIEN COMMUNTIY T HOSPITA EMERGENCY 02668 [facility] 6 6 ROSALEE JOSE ANGEL DEPARTMEN EMERGENCY T VISIT PHYS HIGH/URGE NT SEVERITY [facility] [place] [facility] 6 6 [facility] OUTPATIEN INC T EMERGENCY 78848 [place] DEPT 6 6 [facility] VISIT INC HIGH SEVERITY& THREAT FUNCJ OFFICE 36842 CINTHYA DONALD CONSULTAT 6 6 N ION NEUROLOGY NEW/ESTAB PATIENT 60 MIN OFFICE 37055 [facility] L[facility] OUTPATIEN 6 6 MATTI MATTI T NEW 30 MINUTES OFFICE 89181 SCALF LEI SCALF LEI OUTPATIEN 6 6 T VISIT 25 MINUTES EMERGENCY 61408 [facility] DEPT 6 6 PHYSICIAN BRYCE VISIT S, PLLC HIGH SEVERITY& THREAT FUNCJ OFFICE 78565 [place] ARSLAN OUTPATIEN 6 6 VAL[facility] OFELIA T VISIT INTERNAL 15 MED MINUTES [facility]OSPITAL [facility] - 6 6 HEALTH OUTPATIEN [facility] [place] [facility] 6 6 [facility] OUTPATIEN INC T EMERGENCY 16711 [facility] DEPT 6 6 PHYSICIAN BRYCE VISIT S, PLL HIGH SEVERITY& THREAT FUNCJ OFFICE 49461 HOLINESS BOLIEK OUTPATIEN 6 6 HEALTH KADIE T VISIT MEDICAL 15 GROUP MINUTES OFFICE 88690 WENDY SANCHEZ MICHELLE OUTPATIEN 6 6 T VISIT BARIATRIC 25 SURGICAL MINUTES [facility] [place] [facility] 6 6 [facility] OUTPATIEN INC T OFFICE 88982 [place] ARSLAN OUTPATIEN 6 6 MAHNOMEN OFELIA T VISIT INTERNAL 15 MED MINUTES INITIAL 81972 [facility] PREVENTIV 6 6 PHYSICIAN E S GROUP MEDICINE NEW PATIENT 40-64YRS [facility] [place] [facility] OUTPATIEN INC T OFFICE 06093 HOLINESS BOLIEK OUTPATIEN 6 6 PRIMARY KADIE T VISIT CARE OF 15 ABISAI MINUTES OFFICE 89628 [place] ARSLAN OUTPATIEN 6 6 MAHNOMEN OFELIA T VISIT INTERNAL 15 MED MINUTES [facility] [place] - 6 6 [facility] OUTPATIEN INC T OFFICE 93874 WENDY SANCHEZ MICHELLE OUTPATIEN 5 5 T VISIT BARIATRIC 25 SURGICAL MINUTES OFFICE 83964 ATKINS ATKINS OUTPATIEN 5 5 TRA TRA T VISIT 25 MINUTES PERIODIC 37977 [facility] E MED EST HLTH DEPT HLTH DEPT PATIENT JAZZ JAZZ 40-64YRS OFFICE 41115 WENDY MARTINEZ OUTPATIEN 5 5 T VISIT BARIATRIC 15 SURGICAL MINUTES [facility] [place] [facility] OUTPATIEN INC T OFFICE 56486 [place] ARSLAN OUTPATIEN 5 5 [facility] T NEW 30 INTERNAL MINUTES [facility] [place] [facility] 5 [facility] OUTPATIEN INC T OFFICE 19976 [facility] PETTEMago OUTPATIEN 5 5 PHYSICIAN JACOBY T VISIT S GROUP 15 MINUTES OFFICE 99039 GASTROENT CASE JUS OUTPATIEN 5 5 EROLOGY T VISIT AND 15 HEPATOL MINUTES OFFICE 30303 DOMINICK CHAPIN OUTPATIEN 5 5 HEALTH KADIE T VISIT MEDICAL 10 GROUP MINUTES [facility] - 5 5 N OUTPATIEN COMMUNTIY T [facility] [place] - 5 5 [facility] OUTPATIEN INC T EMERGENCY 24521 SMILEY HUTCHISON 5 5 PHYSICIAN KENNY [facility] S, [facility] T VISIT HIGH/URGE NT SEVERITY [facility] - 5 5 N OUTPATIEN COMMUNTIY T [facility] [place] - 5 5 [facility] OUTPATIEN INC T OFFICE 86663 GASTROENT CASE JUS OUTPATIEN 5 5 EROLOGY T NEW 45 AND MINUTES [facility] [place] [facility] OUTPATIEN INC T EMERGENCY 41886 [place] SOTOMAYOR, 5 5 [facility] T VISIT P LOW/MODER SEVERITY OFFICE 95150 DANIEL SANCHEZ OUTPATIEN 5 5 HUBER HUBER T VISIT 15 MINUTES [facility] [place] - 5 5 [facility] OUTPATIEN INC T EMERGENCY 02520 [place] SOTOMAYOR, 5 5 [facility] T VISIT P MODERATE SEVERITY [facility] - 5 5 N OUTPATIEN COMMUNTIY T [facility] - 5 5 N OUTPATIEN COMMUNTIY T [facility] 5 5 N INPATIENT COMMUNTIY [facility] [place] - 5 5 [facility] OUTPATIEN INC T OFFICE 26336 WENDY SANCHEZ MICHELLE OUTPATIEN 5 5 T VISIT BARIATRIC 40 SURGICAL MINUTES OFFICE 22380 DANIEL SANCHEZ OUTPATIEN 5 5 HUBER HUBER T VISIT 15 MINUTES [facility] [place] - 5 5 [facility] OUTPATIEN INC T EMERGENCY 62177 [place] 5 5 [facility] VIS[facility] LOW/MODER SEVERITY [facility] [place] - 5 5 [facility]PAT[facility]EN INC T [facility] - 5 5 N OUTPATIEN COMMUNTIY [facility] [place] - 5 5 [facility] OUTPATIEN INC T OFFICE 54606 [place] ALATORRE OUTPATIEN 5 5 [facility] MIN[facility] P [facility] [place] - 5 5 [facility] OUTPATIEN INC T OFFICE 61124 MELANIE NOGUEIRA OUTPATIEN 5 5 MEDICAL JAM T VISIT SERV 15 FOUNDATIO MINUTES N OFFICE 74408 [place] WEISS OUTPATIEN [address] [facility] 20 [facility] MIN[facility]ES P OFFICE 07009 [facility] PETTEMago OUTPATIEN 5 5 PHYSICIAN JAM T NEW 30 S GROUP MINUTES OFFICE 31554 [place] FALLU[place]I CONSULTAT 5 5 [facility] NACHO ION MEDICAL NEW/ESTAB G PATIENT 60 MIN OFFICE 42378 DANIEL CHAND 5 5 HUBER HUBER T VISIT 15 MINUTES EMERGENCY 72262 [place] ESCOTO 5 5 [facility] T VISIT P MODERATE SEVERITY [facility] [place] - 5 5 [facility] OUTPATIEN INC T EMERGENCY 65722 [place] 5 5 [facility] INC T VISIT HIGH/URGE NT SEVERITY [facility] [place] [facility] 5 5 [facility] OUTPATIEN INC T EMERGENCY 85706 [place] 5 5 [facility] T VISIT HIGH/URGE NT SEVERITY OFFICE 45938 DANIEL CHAND 5 5 HUBER HUBER T VISIT 15 MINUTES OFFICE 34311 DANIEL CHAND 4 4 HU[facility] HUBER T VISIT 15 MINUTES [facility] [place] - 4 4 [facility] OUTPATIEN [facility] T EMERGENCY 05537 [place] 4 4 [facility] T VISIT LOW/MODER SEVERITY OFFICE 57528 DANIEL CHAND 4 4 HUBER HUBER T VISIT 15 MINUTES EMERGENCY 59621 [facility] DEPT 4 4 ROSALEE VISIT EMERGENCY HIGH PHYS SEVERITY& THREAT [facility] [place] [facility] 4 4 [facility] OUTPATIEN INC T [facility] - 4 4 N OUTPATIEN COMMUNITY T HOSPITA OFFICE 75548 DANIEL CHAND 4 4 HUBER HUBER T VISIT 15 MINUTES OFFICE 08355 MONALISA CHAPIN CONSULTAT 4 4 KADIE ION CARDIOLOG NEW/ESTAB Y AT CENT PATIENT 40 MIN OFFICE 06099 MELANIE NOGUEIRA CONSULTAT 4 4 MEDICAL JAM ION SERV NEW/ESTAB FOUNDATIO PATIENT N 60 MIN [facility] [place] - 4 4 [facility] OUTPATIEN [facility] T [facility]OSP[facility] [place] - 4 4 [facility] OUTPATIEN INC T OFFICE 61627 DANIEL CHAND 4 4 HUBER HUBER T VISIT 15 MINUTES OFFICE 37958 [facility] OUTPATIEN 4 4 [facility] T VISIT MEDICAL 15 G MINUTES OFFICE 04485 ATKINS ATKINS CONSULTAT 4 4 TRA TRA ION NEW/ESTAB PATIENT 40 MIN [facility] [place] - 4 4 [facility] OFFICE 69300 [facility] 4 4 [facility] NEW 30 MEDICAL MINUTES G EMERGENCY 29201 [facility] DEPT 4 4 [facility] VISIT EMERGENCY HIGH PHYSI SEVERITY& THREAT [facility] [place] - 4 4 [facility] EMERGENCY 18425 HORTENCIA HUGHES DEPT 4 4 VISIT HIGH SEVERITY& THREAT [facility] 40213 [place] 4 4 [facility] T VISIT MODERATE SEVERITY EMERGENCY 10844 ANKUR PASCUAL DEPT 4 4 BRYCE BRYCE VISIT HIGH SEVERITY& THREAT [facility] [place] - 4 4 [facility] EMERGENCY 12725 [place] 4 4 [facility] T VISIT HIGH/URGE NT SEVERITY OFFICE 13570 DANILE CHAND 4 4 [facility] HUBER T VISIT 15 MINUTES OFFICE 79947 SANCHEZ MICHELLE SANCHEZ MICHELLE CONSULTAT 4 4 ION NEW/ESTAB PATIENT 80 MIN OFFICE 25184 DANIEL CHAND 4 4 HUBER HUBER T NEW 30 MINUTES [facility] [place] - 4 4 [facility] OUTPATIEN INC T OFFICE 40818 MAEGAN ISSA OUTPATIEN 4 4 JARON JARON T VISIT 5 MINUTES OFFICE 68815 MAEGAN ISSA OUTPATIEN 4 4 JARON JARON T NEW 30 MINUTES EMERGENCY 88574 [place] 9 9 [facility] DEPARTMEN INC T VISIT LOW/MODER SEVERITY EMERGENCY 99078 KIMBERLEE PASCUAL, 9 9 [facility] T VISIT ON HIGH/URGE NT SEVERITY [facility] [place] - 9 9 [facility] OUTPATIEN INC T
--- OUTSIDE RECORDS SUMMARY | 2017-09-10 00:42 | External Medical Summary Rpt | CCD ---
Author Author , YENNY Organization YENNY Address Unknown Phone [email or web address] Care Team Providers Care Brewery Representative Name Role Phone ALFARIS MOH, ALFARIS Unavailable Unavailable MOH [facility] Unavailable Unavailable [place], [facility] [place] YVETTE JURADO MD, PSC, Unavailable Unavailable YVETTE JURADO MD, PSC ARNOLD HUBER, ARNOLD Unavailable Unavailable HUBER ARNOLD HUBER, ARNOLD Unavailable Unavailable HUBER ATKINS TRA, ATKINS Unavailable Unavailable TRA ATKINS TRA, ATKINS Unavailable Unavailable TRA [facility] Unavailable Unavailable [facility] Unavailable Unavailable MEDICAL GROUP, [facility] Unavailable Unavailable [...] Unavailable CERRATO ALL, CERRATO ALL Unavailable Unavailable [facility] Unavailable Unavailable HOSPITAL, [facility] Unavailable Unavailable SERVICE, [facility] Unavailable Unavailable SERVICE, [facility] BUX, BUX Unavailable Unavailable SVITLANA KILO, SVITLANA Unavailable Unavailable KILO CASE JUS, CASE JUS Unavailable Unavailable [facility] Unavailable Unavailable PHYS P[facility], [facility] Unavailable Unavailable ANESTHESIA, [facility] CHESTNUT, CHESTNUT Unavailable Unavailable HUMPHREY, HUMPHREY [...] ANKUR BRYCE, ANKUR Unavailable Unavailable BRYCE ANKUR BRCYE, ANKUR Unavailable Unavailable BRYCE ANKUR, BK S, Unavailable Unavailable ANKUR, BK S [facility] Unavailable [facility]available [facility], [facility] Unavailable Unavailable HOSPITA, [facility] Unavailable Unavailable HOSPITA, [facility], Unavailable Unavailable [facility] RODRIGUEZ TRI, RODRIGUEZ TRI Unavailable Unavailable ANDREWS RHO, ANDREWS Unavailable Unavailable [facility] Unavailable Unavailable CENTER, [facility] Unavailable Unavailable INC, [facility] Unavailable Unavailable HOSPITAL P, [facility] BOYER CHRISTEL, BOYER CHRISTEL Unavailable Unavailable [facility], Unavailable Unavailable [facility] JAQUEZ, JAQUEZ Unavailable Unavailable VAUHGN TERA, VAUGHN Unavailable Unavailable TERA ADAMS, ADAMS Unavailable Unavailable ILUYOMADE ROT, Unavailable Unavailable [facility] FELICIA DUARTE Unavailable Unavailable [facility] Unavailable Unavailable GROUP PS, [facility] Unavailable Unavailable [facility], [facility] Unavailable Unavailable MEDICAL G, [facility] KRASNOPOLSKY LAUREN, Unavailable Unavailable [...] JR DWI, SCOTT Unavailable Unavailable JR DWI [facility] Unavailable Unavailable SPECIALISTS,, [facility], [facility] Unavailable Unavailable INTERNAL MED, [facility] BRITTNY, BRITTNY Unavailable [...] #591 WALKER FOR, WALKER Unavailable Unavailable FOR [facility] Unavailable Unavailable DEPT [facility] [place], [facility] Unavailable [facility]available DEPT JAZZ, [facility] SANCHEZ, SANCHEZ Unavailable Unavailable SANCHEZ [...] HOSP INC R51 HEADACHE 07-15-2017 [facility] SHERIFF, [facility] [id number] OTHER LONG 07-15-2017 [place] TERM [facility] CURRENT INC DRUG THERAPY J309 ALLERGIC 07-11-2017 [facility] RHINITIS PHYSICIANS UNSPECIFIED GROUP J320 CHRONIC 07-11-2017 [facility] MAXILLARY PHYSICIANS SINUSITIS GROUP Z1231 ENCOUNTER 07-09-2017 [place] SCREENING MEDICAL MAMMO MALIG IMAGING ASS NEOPLASM BREAST E6601 MORBID 07-08-2017 [facility] SEVERE [facility] OBESITY DUE MEDICAL TO EXCESS GROUP CALORIES K5900 CONSTIPATIO 07-08-2017 [facility] N HEALTH UNSPECIFIED MEDICAL GROUP R0981 NASAL 07-08-2017 [facility] SHERIFF, [facility] R110 NAUSEA 07-08-2017 [facility] MEDICAL GROUP R635 ABNORMAL 07-08-2017 [facility] WEIGHT [facility] MEDICAL GROUP Z6841 BODY MASS 07-08-2017 [facility] INDEX BMI HEALTH 40.0-44.9 MEDICAL ADULT GROUP [id number] BARIATRIC 07-08-2017 [facility] SURGERY HEALTH STATUS MEDICAL GROUP R202 PARESTHESIA 07-07-2017 [facility] SKIN NEUROLOGY S95605 UNSPECIFIED 06-30-2017 [facility] ASTHMA PHYSICIANS, [facility]PLICAT [facility] H524 PRESBYOPIA 06-27-2017 SCIFRCANELO Z539 PROCEDURE & 06-26-2017 [facility] TREATMENT HEALTH NOT CARRIED [place] OUT UNS REASON B370 CANDIDAL 06-22-2017 [place] STOMATITIS [facility] INC R1084 GENERALIZED 06-20-2017 [facility] ABDOMINAL PHYSICIANS, PAIN PLLC R109 UNSPECIFIED 06-20-2017 [place] ABDOMINAL [facility]ICAL PAIN IMAGING ASS R140 ABDOMINAL 06-20-2017 [place] DISTENSION MEDICAL GASEOUS IMAGING ASS J3501 CHRONIC 06-19-2017 [facility] TONSILLITIS PHYSICIANS GROUP J301 ALLERGIC 06-11-2017 [facility] RHINITIS PARTNERS OF DUE TO [place] POLLEN J3081 ALLERG 06-11-2017 [facility] RHINITIS PARTNERS OF D/T ANIMAL [place] CAT DOG HAIR & DANDER J3089 OTHER 06-11-2017 [facility] ALLERGIC [facility] RHINITIS [place] J4530 MILD 06-11-2017 [facility] PERSISTENT PARTNERS OF ASTHMA [place] UNCOMPLICAT ED L96176 OTHER 06-11-2017 [employer] [facility] [employer]QU[employer]MENT INC U07837 ALLERGY TO 06-11-2017 [facility] OTHER FOODS [facility] [place] R002 PALPITATION 06-10-2017 [facility] P L1975UQ UNS INJURY 06-10-2017 [facility] LOWER MEDICAL LEG INITIAL IMAGING ASS ENCOUNTER R079 CHEST PAIN 06-04-2017 [place] UNSPECIFIED [place] INTERNAL MED F2565ZA SPRAIN 06-01-2017 [facility] P KNEE INITIAL ENCNTR T158AIZ UNS ADVERS 06-01-2017 [facility] EFFECT PHYSICIANS, DRUG/MEDICA PLL MENT INITIAL ENCNTR U71740G FALL SAME 06-01-2017 [facility] YO SLIP [facility] P FURN INITIAL ENC D64957 BEDROOM 06-01-2017 [facility] S[facility] P OCCUR EXT CAUSE E785 HYPERLIPIDE 05-19-2017 [facility] LILIANE [place] UNSPECIFIED ANESTHESIA K449 DIAPHRAGMAT 05-19-2017 [facility] IC HERNIA [place] W/O ANESTHESIA OBSTRUCTION OR GANGRENE R1310 DYSPHAGIA 05-19-2017 [facility] UNSPECIFIED PHYS SURG CTR J069 ACUTE UPPER 05-05-2017 [facility] H[facility]P RESPIRATORY INC INFECTION UNSPECIFIED R072 PRECORDIAL 05-05-2017 [facility] , R0789 OTHER CHEST 05-04-2017 [facility] PAIN PHYSICIANS, SILVIOC Z809 FAMILY 05-04-2017 [place] HISTORY OF [facility] MALIGNANT INC NEOPLASM UNSPECIFIED Z8249 FAMILY HX 05-04-2017 [facility] ISCHEMIC [facility] HRT DZ OT HOSPITAL P DZ CIRC SYSTEM Z833 FAMILY 05-04-2017 [place] HISTORY OF [facility] DIABETES [facility] P MELLITUS Z54961 ENCOUNTER 04-30-2017 [facility] FOR HEALTH PREPROCEDUR [facility] AL CARIOVASCUL AR EXAM X95895 ENCOUNTER 04-30-2017 [facility] FOR HEALTH PREPROCEDUR [facility] LABORATORY EXAM B977 PAPILLOMAVI 04-29-2017 [facility], RAJ CAUSE LLC OF DZ CLASSIFIED ELSEWHERE N870 MILD 04-29-2017 [facility], CERVICAL LLC DYSPLASIA A00166 ATYP SQ 04-29-2017 [facility] CELLS UNDET PHYSICIANS GROUP SIGNIFICANC E CYTOL SMER CERV C34203 CERV HIGH 04-29-2017 [facility] RSK HUMAN PHYSICIANS PAPILLOMAVI GROUP RAJ DNA TEST POS 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 04-10-2017 [facility] OF HEALTH ESOPHAGUS [facility] H45951 DECREASED 04-09-2017 [facility] WHITE BLOOD [facility] CELL COUNT [facility] P UNSPECIFIED R1319 OTHER 04-08-2017 [facility] DYSPHAGIA HEALTH MEDICAL GROUP C55469 SPONDYLOSIS 04-07-2017 YVETTE JURADO W/O , PSC MYELOPATH/R ADICULOPATH Y LUMB RGN M479 SPONDYLOSIS 04-07-2017 [facility] HOSP UNSPECIFIED INC 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, PSC RAL DISC DEGEN LUMBAR REGION R350 FREQUENCY 03-27-2017 [facility] MICTURITION [facility] P R3915 URGENCY OF 03-27-2017 [facility] URINATION [facility] P R200 ANESTHESIA 03-25-2017 [place] OF SKIN MEDICAL IMAGING ASS R42 DIZZINESS 03-25-2017 [place] AND MEDICAL GIDDINESS IMAGING ASS D709 NEUTROPENIA 03-24-2017 [facility] P [id number] ADVERSE EFF 03-22-2017 [facility] DS SYNTH ANALOG INIT ENC Q92154D ADVERS EFF 03-22-2017 [facility] RX MEDS [facility] BIO INC SUBSTANCES INIT ENC J99392 OTHER 03-21-2017 [place] SPONDYLOSIS [facility] LUMBAR INC REGION M5116 INTERVERTEB 03-21-2017 [place] RAL DISC [facility] D/O INC W/RADICULOP ATHY LUMB RGN L07427 ENCOUNTER 03-19-2017 [facility], BINDER STRIPPER MACH[employer] EXAM LLC GENERAL RTN W/ABNORMAL FIND S20246 ENCOUNTER 03-19-2017 [facility] BINDER STRIPPER MACHINE EXAM PHYSICIANS GENERAL RTN GROUP W/O ABNORMAL FIND H6982 OTHER SPEC 03-13-2017 [facility] DISORDERS PHYSICIANS EUSTACHIAN GROUP TUBE LT EAR 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[facility] UNI LT EAR PHYSICIANS UNRESTIRCT GROUP CONTRALAT SIDE R300 DYSURIA 03-12-2017 [facility] PHYSICIANS, [facility] M4726 OT 03-03-2017 [place] SPONDYLOSIS [facility] INC W/RADICULOP ATHY LUMBAR REGION N390 URINARY 03-03-2017 [place] TRACT [facility] INFECTION INC SITE NOT SPECIFIED R911 SOLITARY 02-27-2017 [place] PULMONARY MEDICAL NODULE IMAGING ASS Z09 ENC F/U 02-27-2017 [place] EXAM AFTR MEDICAL CMPL TX OTH IMAGING ASS THAN MALIG NEOPLSM E669 OBESITY 02-25-2017 [facility] UNSPECIFIED PHYSICIANS GROUP I119 HYPERTENSIV 02-25-2017 [facility] E HEART PHYSICIANS DISEASE GROUP WITHOUT HEART FAILURE R0600 DYSPNEA 02-25-2017 [facility] UNSPECIFIED PHYSICIANS GROUP J310 CHRONIC 02-17-2017 [facility] RHINITIS PHYSICIANS GROUP J329 CHRONIC 02-17-2017 [facility] SINUSITIS PHYSICIANS UNSPECIFIED GROUP J342 DEVIATED 02-17-2017 [facility] NASAL PHYSICIANS SEPTUM GROUP M5416 RADICULOPAT 02-17-2017 [place] HY LUMBAR [facility] REGION INC M545 LOW BACK 02-17-2017 YVETTE JURADO, PAIN , PSC I998 OTHER 02-11-2017 [place] DISORDER OF [facility] INC CIRCULATORY SYSTEM R0602 SHORTNESS 02-11-2017 [place] OF BREATH [facility] INC G8929 OTHER 02-10-2017 [place] CHRONIC VALLEY PAIN INTERNAL MED X60040 PAIN IN 02-10-2017 [place] LEFT VALLEY SHOULDER INTERNAL MED M5440 LUMBAGO 02-10-2017 [place] WITH VALLEY SCIATICA INTERNAL UNSPECIFIED MED SIDE R5383 OTHER 01-31-2017 [facility] FATIGUE PHYSICIANS GROUP M792 NEURALGIA 01-27-2017 [place] AND VALLEY NEURITIS INTERNAL UNSPECIFIED MED I10 ESSENTIAL 01-26-2017 [place] PRIMARY [facility] HYPERTENSIO INC N M542 CERVICALGIA 01-26-2017 [facility] INC Q01982 SPONDYLOSIS 01-22-2017 [place] W/O MEDICAL MYELOPATH/R IMAGING ASS ADICULOPATH Y CERV RGN R039NND STRAIN 01-22-2017 [facility] MUSCLE FASC PHYSICIANS, & TENDON PLLC NECK LEVL INIT ENC U63041G STRAIN 01-16-2017 [facility] MUSCLE & PHYSICIANS, TENDON UNS PLLC WALL THORAX INIT ENC Z882 ALLERGY 01-11-2017 [place] STATUS TO [facility] S STATUS Z886 ALLERGY 01-11-2017 [place] STATUS TO [facility] AGENT STATUS Z888 ALLERGY 01-11-2017 [place] STATUS [facility]TH [facility] BIOLOG SUBSTAN STS H9203 OTALGIA 01-10-2017 [place] BILATERAL [facility] INC I209 ANGINA 01-10-2017 [place] PECTORIS [facility] UNSPECIFIED INC R071 CHEST PAIN 01-07-2017 [place] ON [place] BREATHING INTERNAL MED Z720 TOBACCO USE 01-04-2017 [facility] INC P38958 MUSCLE 12-25-2016 [place] SPASM OF [facility] BACK INC R1013 EPIGASTRIC 12-25-2016 [place] PAIN [place] INTERNAL MED R4702 DYSPHASIA 12-25-2016 [place] INTERNAL MED B078 OTHER VIRAL 12-23-2016 [facility] WARTS K30 FUNCTIONAL 12-23-2016 [facility] DYSPEPSIA [facility] L218 OTHER 12-23-2016 [facility] SEBORRHEIC DERMATITIS L538 OTHER 12-23-2016 [facility] SPECIFIED ERYTHEMATOU S CONDITIONS R208 OTHER 12-23-2016 [facility] DISTURBANCE S OF SKIN SENSATION R238 OTHER SKIN 12-23-2016 [facility] CHANGES K5903 DRUG 12-17-2016 [place] INDUCED [facility] CONSTIPATIO INC N [id number] ADVERSE 12-17-2016 [place] EFFECT [facility] OTHER INC OPIOIDS INITIAL ENCOUNTER K910 VOMITING 12-12-2016 [place] FOLLOWING [facility] GASTROINTES INC TINAL SURGERY R600 LOCALIZED 12-12-2016 [facility] EDEMA PHYSICIANS, PLLC R609 EDEMA 12-12-2016 [place] UNSPECIFIED [facility] INC I15659 OTHER 12-12-2016 [place] SPECIFIED MEDICAL POSTPROCEDU IMAGING ASS RAL STATES N393 STRESS 12-11-2016 [facility] INCONTINENC HEALTH E FEMALE [place] MALE Z903 ACQUIRED 12-11-2016 [facility] ABSENCE OF HEALTH STOMACH MONALISA V28936 ENCOUNTER 12-05-2016 [facility] FOR OTHER HEALTH PREPROCEDUR MEDICAL AL GROUP EXAMINATION K210 GASTRO-ESOP 11-22-2016 [facility] HAGEAL PHYSICIANS, REFLUX PLLC DISEASE W/ ESOPHAGITIS K625 HEMORRHAGE 11-19-2016 [place] OF ANUS AND VALLEY RECTUM INTERNAL MED M546 PAIN IN 11-08-2016 [facility] THORACIC PHYSICIANS, SPINE PLLC W10072 PAIN IN 10-14-2016 [place] UNSPECIFIED MEDICAL HIP IMAGING ASS M533 SACROCOCCYG 10-14-2016 [place] EAL MEDICAL DISORDERS IMAGING ASS NEC I997XHN CONTUSION 10-14-2016 [facility] LOWER BACK PHYSICIANS, & PELVIS PLLC INITIAL ENCOUNTER K0453FV UNSPECIFIED 10-14-2016 [place] INJURY MEDICAL LOWER BACK IMAGING ASS INITIAL ENCOUNTER N5504IU UNSPECIFIED 10-14-2016 [place] INJURY OF MEDICAL PELVIS IMAGING ASS INITIAL ENCOUNTER H3581 RETINAL 10-11-2016 [facility] ANG EDEMA R040 EPISTAXIS 10-10-2016 [place] INTERNAL MED E6609 OTHER 10-08-2016 [facility] OBESITY DUE BARIATRIC TO EXCESS SURGICAL CALORIES J3489 OTHER 10-06-2016 [facility] SPECIFIED PHYSICIANS, DISORDERS PLLC NOSE AND NASAL SINUSES R05 COUGH 10-06-2016 [place] [facility] A6004 HERPESVIRAL 09-27-2016 [facility] PHYSICIANS VULVOVAGINI GROUP TIS N760 ACUTE 09-27-2016 [facility] VAGINITIS PHYSICIANS GROUP H906I0H CONCUSSION 09-21-2016 [place] WITHOUT LOC [facility] INITIAL INC ENCOUNTER U4956ME UNSPECIFIED 09-21-2016 [place] INJURY OF MEDICAL HEAD IMAGING ASS INITIAL ENCOUNTER H6903 PATULOUS 09-19-2016 [facility] JARON EUSTACHIAN TUBE BILATERAL E64048 UNSPECIFIED 09-18-2016 [facility] PHYSICIANS OBSTRUCTION GROUP EUSTACHIAN TUBE BILAT R590 LOCALIZED 09-04-2016 [facility] P Z6834 BODY MASS 09-04-2016 [facility] INDEX BMI HEALTH 34.0-34.9 MEDICAL ADULT GROUP K5909 OTHER 09-03-2016 [facility] CONSTIPATIO GROUND N FAMILY CLINI R112 NAUSEA WITH 09-03-2016 [facility] VOMITING GROUND UNSPECIFIED FAMILY CLINI Z111 ENCOUNTER 09-02-2016 [facility]CRE[facility]ING [facility] DEPT RESPIRATORY JAZZ TUBERCULOSI S M549 DORSALGIA 09-01-2016 [facility] UNSPECIFIED PHYSICIANS, PLLC R197 DIARRHEA 09-01-2016 [facility] UNSPECIFIED PHYSICIANS, PLLC [id number] ADVERSE 09-01-2016 [facility] P SRI INITIAL ENCOUNTER A68398 UNS PLACE 09-01-2016 [facility] P PLACE OF OCCUR EXT R195 OTHER FECAL 08-30-2016 [facility] H[facility] ABNORMALITI INC ES Z202 CONTACT 08-30-2016 [facility] WITH DISTRICT EXPOSURE [facility] DEPT INFECT JAZZ SEXUAL MODE TRANSMS R5381 OTHER 08-29-2016 [facility] MALAISE PHYSICIANS GROUP R9431 ABNORMAL 08-29-2016 [facility] ELECTROCARD PHYSICIANS IOGRAM GROUP K62700 LYMPHOCYTOP 08-21-2016 [facility] ENIA [facility] INC J4520 MILD 08-21-2016 [facility] INTERMITTEN PARTNERS OF T ASTHMA [place] UNCOMPLICAT ED G418WEF OTHER 08-21-2016 [facility] ADVERSE PARTNERS OF FOOD [place] REACTIONS NEC SUBSEQUENT ENC M791 MYALGIA 08-17-2016 [facility] PHYSICIANS, PLLC M898X9 OTHER 08-12-2016 [place] SPECIFIED MEDICAL DISORDERS IMAGING ASS BONE UNSPECIFIED SITE R599 ENLARGED 08-12-2016 [facility] LYMPH NODES [facility] INC UNSPECIFIED R1314 DYSPHAGIA 08-10-2016 [facility] PHARYNGOESO PHYSICIANS, PHAGEAL PLLC PHASE R5382 CHRONIC 08-07-2016 [facility] FATIGUE [facility] UNSPECIFIED INC R591 GENERALIZED 08-05-2016 [facility] P I208 OTHER FORMS 08-02-2016 [facility] OF ANGINA [facility] P B68792 PAIN IN 08-02-2016 [facility] RIGHT KNEE MEDICAL IMAGING ASS R55 SYNCOPE AND 08-02-2016 [facility] COLLAPSE PHYSICIANS, PLLC J507WBS UNSPECIFIED 08-02-2016 [place] INJURY OF MEDICAL NECK IMAGING ASS INITIAL ENCOUNTER D8718OD UNS INJURY 08-02-2016 [place] RT LOWER MEDICAL LEG INITIAL IMAGING ASS ENCOUNTER N281 CYST OF 08-01-2016 [facility] P R209 UNSPECIFIED 07-29-2016 [facility] PHYSICIANS, DISTURBANCE PLLC S OF SKIN SENSATION K589 IRRITABLE 07-24-2016 [facility] BOWEL PHYSICIANS SYNDROME GROUP WITHOUT DIARRHEA R102 PELVIC AND 07-24-2016 [facility] PERINEAL PHYSICIANS PAIN GROUP N831 CORPUS 07-22-2016 [facility] LUTEUM CYST PHYSICIANS GROUP N920 EXCESS & 07-22-2016 [facility] FREQUENT PHYSICIANS MENSTRUATIO GROUP N W/REGULAR CYCLE A69642D STRAIN UNS 07-22-2016 [facility] MUSCLE FASC PHYSICIANS, TEND THIGH PLLC RT INITIAL ENC Z7251 HIGH RISK 07-22-2016 [facility] L BEHAVIOR INC R12 HEARTBURN 07-18-2016 [facility] H938X9 OTHER 07-17-2016 [facility] SPECIFIED PHYSICIANS DISORDERS GROUP OF EAR UNSPECIFIED EAR J302 OTHER 07-17-2016 [facility] SEASONAL PHYSICIANS ALLERGIC GROUP RHINITIS W1284UK LACERATION 07-13-2016 [facility] W/O FOREIGN PHYSICIANS, BODY SCALP PLLC INITIAL ENC R6889 OTHER 07-10-2016 [facility] SYMPTOMS HOSPITA AND SIGNS E780 PURE 07-09-2016 [facility] HYPERCHOLES BARIATRIC TEROLEMIA SURGICAL E876 HYPOKALEMIA 07-09-2016 [facility] P H6990 UNSPECIFIED 07-07-2016 [facility] [...] 06-26-2016 [facility] PAIN PHYS H00174 RIGHT LOWER 06-26-2016 [facility] ABDOMINAL HOSPITA TENDERNESS N200 CALCULUS OF 06-24-2016 [place] KIDNEY MEDICAL IMAGING ASS M5386 OTHER 06-11-2016 [place] SPECIFIED DORSOPATHIE S LUMBAR REGION D225 MELANOCYTIC 05-23-2016 [facility] LEI NEVI OF TRUNK D2272 MELANOCYTIC 05-23-2016 [facility] NEVI LEFT LOWER LIMB INCLUDING HIP 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 05-23-2016 [facility] LE[facility] UNCERTAIN BEHAVIOR OF SKIN L400 PSORIASIS 05-23-2016 [facility] VULGARIS L408 OTHER 05-23-2016 [facility] PSORIASIS DIAGNOSTICS L578 [facility] 05-23-2016 [facility] CHANGES D/T CHRN EXPS TO NONIONIZING RAD R9439 ABNORMAL 04-08-2016 [facility] RESULT [facility] CARDIOVASCU MEDICAL LR FUNCTION GROUP STUDY I340 NONRHEUMATI 04-04-2016 [place] [facility]RAL [facility] INSUFFICIEN CY I351 NONRHEUMATI 04-04-2016 [place] [facility] AORTIC [facility] INSUFFICIEN CY I361 NONRHEUMATI 04-04-2016 [place] [facility] TRICUSPID SERV [facility] INSUFFICIEN CY M2550 PAIN IN 03-26-2016 LAB [facility] UNSPECIFIED [facility] [employer] M7521 BICIPITAL 03-19-2016 [place] TENDINITIS [place] RIGHT INTERNAL SHOULDER MED Z113 ENCOUNTER 03-13-2016 [facility], SCREEN LLC INFECTIONS SEXL MODE TRANSMISSN M778 OTHER 12-04-2015 [place] ENTHESOPATH VALLEY IES NOT INTERNAL ELSEWHERE MED CLASSIFIED 53367 UNSPECIFIED 07-11-2015 [facility] TRA VIRAL WARTS 2167 [...] SKIN 7020 ACTINIC 07-11-2015 [facility] KERATOSIS 84895 INFLAMED 07-11-2015 [facility] SEBORRHEIC KERATOSIS V700 ROUTINE 06-27-2015 [facility] DEPT [email or web address] CARE FACL 03245 MORBID 06-20-2015 [facility] OBESITY BARIATRIC SURGICAL 03106 PAIN IN 06-20-2015 LAB [facility] JOINT, SITE [facility] UNSPECIFIED 7823 EDEMA 06-20-2015 [facility] 65412 OTHER 06-20-2015 [facility] DYSPNEA AND [facility] RESPIRATORY ABNORMALITI ES 7871 HEARTBURN 06-20-2015 LAB [facility] 7904 NONSPEC 06-20-2015 [facility] ELEVATION BARIATRIC OF LEVELS SURGICAL OF TRANSAMINAS E/LDH V4586 BARIATRIC 06-20-2015 [facility] SURGERY BARIATRIC STATUS SURGICAL V7612 OTHER 06-19-2015 [place] SCREENING MEDICAL MAMMOGRAM IMAGING ASS 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 MED 2689 UNSPECIFIED 06-12-2015 [facility] VITAMIN D VALLEY DEFICIENCY INTERNAL MED 5718 OTHER 06-12-2015 [facility] CHRONIC VALLEY NONALCOHOLI INTERNAL C LIVER MED DISEASE 7905 OTHER 06-12-2015 [place] NONSPECIFIC [place] ABNORMAL INTERNAL SERUM MED ENZYME LEVELS 07458 UNSPEC 05-09-2015 [facility] DISORDERS PHYSICIANS BURSAE&TEND GROUP ONS SHOULDER REGION 7262 OTHER 05-09-2015 [facility] AFFECTIONS PHYSICIANS OF SHOULDER GROUP REGION NEC 62330 OBESITY, 05-04-2015 [facility] UNSPECIFIED OLOGY AND HEPATOL 3674 PRESBYOPIA 04-28-2015 [place] 85135 CHEST PAIN 04-28-2015 [facility] 73656 ABDOMINAL 04-25-2015 [place] PAIN, COMMUNTIY UNSPECIFIED HOSPITA SITE 4019 UNSPECIFIED 04-16-2015 [facility] HYPERTENSIO INC N 5990 URINARY 04-16-2015 [facility], INFECTION [facility] SITE NOT SPECIFIED 7948 NONSPECIFIC 04-16-2015 [place] [facility] RESULTS INC LIVR FUNCTION STUDY 5739 UNSPECIFIED 04-14-2015 [facility] [place] DISORDER RADIOLOGY OF LIVER 7906 OTHER 04-14-2015 [place] ABNORMAL COMM[facility]TIY BLOOD HOSPITA CHEMISTRY 5939 UNSPECIFIED 04-06-2015 [place] DISORDER MEDICAL OF KIDNEY IMAGING ASS AND URETER 7891 HEPATOMEGAL 04-06-2015 [facility] Y OLOGY AND HEPATOL V140 PERSONAL 04-05-2015 [place] HISTORY OF [facility] ALLERGY TO HOSPITAL P PENICILLIN 52437 ABDOMINAL 04-03-2015 [facility] PAIN, GENERALIZED 5758 OTHER 04-01-2015 [place] SPECIFIED [facility] DISORDER OF HOSPITAL P GALLBLADDER 57020 OTHER 04-01-2015 [place] SPECIFIED MEDICAL DISORDER OF IMAGING ASS KIDNEY AND URETER 00769 ABDOMINAL 04-01-2015 [facility] PAIN RIGHT MEDICAL UPPER IMAGING ASS QUADRANT 12564 ABDOMINAL 04-01-2015 [place] PAIN, [facility] EPIGASTRIC HOSPITAL P 7295 PAIN IN 03-29-2015 [facility] SOFT COMMUNTIY TISSUES OF HOSPITA LIMB V4589 OTHER 03-29-2015 [facility] POSTSURGICA COMMUNTIY L STATUS HOSPITA OTHER 20730 OTHER 03-24-2015 [facility] MALAISE AND COMMUNTIY FATIGUE HOSPITA V6700 FOLLOW-UP 03-21-2015 [facility] [place] EXAMINATION RADIOLOGY FOLLOWING UNSPEC SURGERY 32494 ESOPHAGEAL 03-20-2015 [place] REFLUX ANESTHESIA GROUP PS 6256 FEMALE 03-20-2015 [facility] STRESS COMMUNTIY INCONTINENC HOSPITA E 13491 PAIN IN 03-20-2015 [facility] JOINT, BARIATRIC MULTIPLE SURGICAL SITES 31588 DIASTASIS 03-20-2015 [facility] OF MUSCLE COMMUNTIY HOSPITA 7892 SPLENOMEGAL 03-20-2015 [facility] Y COMMUNTIY HOSPITA V8543 BODY MASS 03-20-2015 [facility] INDEX COMMUNTIY 50.0-59.9 HOSPITA ADULT 2639 UNSPECIFIED 03-14-2015 [facility] ORIE MALNUTRITIO N 70186 MIGRAINE 03-07-2015 [facility] UNSP W/O BARIATRIC 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 MIGRAINOSUS 23310 OTHER 03-07-2015 [facility] URINARY BARIATRIC INCONTINENC SURGICAL E 6929 CONTACT 03-06-2015 [facility] DERMATITIS& OTHER [facility] DUE UNSPEC CAUSE 6822 CELLULITIS 03-02-2015 [facility] P V148 PERSONAL 03-02-2015 [facility] ALLERGY [facility] P SPEC MEDICINAL AGTS V571 OTHER 02-22-2015 [facility] THERAPY INC 2724 OTHER AND 02-20-2015 [place] UNSPECIFIED COMMUNTIY HOSPITA HYPERLIPIDE LILIANE 7245 UNSPECIFIED 02-20-2015 [facility] BACKACHE COMMUNTIY HOSPITA V7283 OTHER 02-20-2015 [place] SPECIFIED COMMUNTIY PRE-OPERATI HOSPITA VE EXAMINATION 2875 UNSPECIFIED 02-15-2015 [facility] P PENIA 7932 NONSPC ABN 02-10-2015 [place] [facility] RAD&OTH FOUNDATION EXAM OT INTRTHOR ORGN V7282 PRE-OPERATI 02-10-2015 [place] [facility] SERV RESPIRATORY FOUNDATION EXAMINATION 5930 NEPHROPTOSI 02-09-2015 [facility] P 7802 SYNCOPE AND 02-01-2015 [facility] MEDICAL G 4139 OTHER AND 01-18-2015 [facility] [place] 99856 SHORTNESS 01-18-2015 [facility] SPALD[facility] OF BREATH MEDICAL IMAGING ASS 47048 OTHER CHEST 01-18-2015 [facility] P 45909 OSTEOARTHRO 12-30-2014 DANIEL Reddy INVLV MX [place]ITES [place] [address] PAIN IN 11-09-2014 [place] [facility], MEDICAL SHOULDER IMAGING ASS REGION V5832 ENCOUNTER 11-09-2014 [place] [facility] P 72263 PILAR CYST 11-02-2014 [facility] 99723 UNSPECIFIED 10-06-2014 [facility] INFE[facility] PHYS IN CCE & UNS SITE 7840 HEADACHE 10-06-2014 [place] [facility] 70014 ATROPHIC 09-16-2014 [facility] MENTION OF HEMORRHAGE 09065 OTHER SPEC 09-16-2014 [facility] WITHOUT MENTION HEMORRHAGE 69289 DYSPHAGIA 09-16-2014 [place] UNSPECIFIED ANESTHESIA GROUP PS 6869 UNSPEC 08-17-2014 [facility] LOCAL INFECTION SKIN&SUBCUT ANEOUS TISSUE V7284 UNSPECIFIED 08-09-2014 [place] [facility] PRE-[facility]ATI INC VE EXAMINATION 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 7019 UNSPECIFIED 08-04-2014 [facility] HYPERTROPHI C&ATROPHIC CONDITION SKIN 50619 OTHER 08-04-2014 [facility] SEBORRHEIC KERATOSIS 7851 PALPITATION 08-04-2014 [facility] H[facility] Community MEDICAL G V7281 PRE-OPERATI 07-21-2014 [facility] HIT Community CARDIOVASCU MEDICAL G LAR EXAMINATION 53878 PAINFUL 07-05-2014 [facility] BRYCE RESPIRATION V771 SCREENING 05-24-2014 [facility] DIABETES MELLITUS 470 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 4779 ALLERGIC 03-17-2014 [facility] RHINITIS CAUSE UNSPECIFIED 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 01-10-2014 [facility] MAXILLARY SINUSITIS V0481 NEED 01-06-2009 [facility] PROPHYLACTI HEALTH C CENTRAL VACCINATION BANK ACCT &INOCULATIO N FLU 86346 PAIN IN 01-04-2009 [place] [facility] MEDICAL PELVIC IMAGING REGION AND ASSOCIATES THIGH 20525 DISPLCMT 01-04-2009 [place] LUMBAR MEDICAL INTERVERT 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 8460 SPRAIN AND 01-04-2009 [facility] Media[facility] SPIRIT Navigation 8472 LUMBAR 01-04-2009 [place] [facility] STRAIN INC 56453 CONTUSION 01-04-2009 [facility] BACK Sound[employer].ly 60729 CONTUSION 01-04-2009 [facility] [employer] Cloud E8490 PLACE OF 01-04-2009 [place] OCCURRENCE, MEDICAL HOME IMAGING ASSOCIATES E8859 FALL FROM 01-04-2009 [place] OTHER MEDICAL SLIPPING IMAGING TRIPPING OR ASSOCIATES [...] 48 -1 -0 .0 00 IN ti ME 70 1- 6- 00 00 IC ve [...] 17 79 PH E 6 94 AR RI MA OP CY 50 MC G SP [...] 43 ZA 91 17 17 63 PH RI 0 09 AR IN MA E CY [...] 17 79 PH E 6 94 AR RI MA OP CY 50 MC G SP [...] CY 4 MG TA BL ET RI 00 08 09 8. 2 00 CL Ac OM 59 -1 -0 00 00 IN ti ET 15 6- 8- 0 00 IC ve CARTY 30 20 20 43 ZI 71 17 17 96 PH NE 0 36 AR MA 25 CY MG TA BL ET RI 59 08 09 10 5 00 RI [...] 43 ZA 60 17 17 63 PH RI 1 09 AR IN MA E CY [...] 43 ZA 60 17 17 63 PH RI 1 09 AR IN MA E CY [...] 43 RA 30 17 17 61 PH ME 5 60 AR DE MA CY 10 MG TA BL ET FL 50 07 08 16 30 00 CL Ac UT 38 -0 -0 .0 00 IN ti IC 30 7- 4- 00 00 IC ve 70 20 20 42 ON 01 17 17 79 PH E 6 94 AR RI MA OP CY 50 MC G SP [...] YL 15 2- 7- 00 01 ve RI 02 20 20 18 AI ED 20 [...] 17 79 PH E 6 94 AR RI MA OP CY 50 MC G SP [...] 43 ZA 60 17 17 25 PH RI 1 00 AR IN MA E CY [...] 17 79 PH E 6 94 AR RI MA OP CY 50 MC G SP [...] 42 ZA 60 17 17 82 PH RI 1 16 AR IN MA E CY 5 MG TA BL ET FL 50 04 05 16 30 00 CL Ac UT 38 -1 -1 .0 00 IN ti IC 30 3- 2- 00 00 IC ve 70 20 20 42 ON 01 17 17 79 PH E 6 94 AR RI MA OP CY 50 MC G SP [...] 42 ZA 60 17 17 59 PH RI 1 23 AR IN MA E CY [...] 10 7- 1- 00 00 IC ve ME 47 20 20 42 01 17 17 [...] 0 CY MG CA PS UL E RI 65 03 03 20 5 00 CL [...] 1 70 PH CE AR TA MA ME CY NO PH #3 93 7. 8 [...] 17 53 PH E 6 48 AR RI MA OP CY 50 MC G SP [...] 42 ZA 60 17 17 30 PH RI 1 05 AR IN MA E CY [...] #3 TA 93 BL 8 ET RI 59 02 03 10 5 00 RI [...] 17 53 PH E 9 48 AR RI MA OP CY 50 MC G SP RA Y CY 00 02 02 14 7 00 CL Ac CL 59 -0 -2 .0 00 IN ti OB 15 1- 4- 00 00 IC ve EN 65 20 20 42 ZA 81 17 17 08 PH RI 0 66 AR IN MA E CY [...] 5 25 PH CE AR TA MA ME CY NO PH OF CY 7. NT [...] 12 01 20 10 00 CL Ac RI 46 -2 -2 .0 00 IN ti [...] 12 01 14 7 00 CL Ac RI 46 -1 -2 .0 00 IN ti [...] 17 53 PH E 9 48 AR RI MA OP CY 50 MC G SP RA Y ME 59 02 02 00 21 6 CL 18 GA Ac TH 74 -1 -2 .0 IN 75 IN ti YL 60 2- 6- 00 IC 10 EY ve RI 00 20 20 ED 10 09 09 PH ME NI 3 AR CH SO MA AE LO CY L NE S 4 MG DO SE PK CY 59 02 02 00 21 7 CL 18 GA Ac CL 74 -1 -2 .0 IN 75 IN ti OB 60 2- 6- 00 IC 11 EY ve EN 17 20 20 ZA 70 09 09 PH ME RI 6 AR CH IN MA AE E [...] DOS Code Location Performer Comment IIV4 VACC 75666 [place] [facility] SPLIT 7 VALLEY VIRUS 0.5 INTERNAL ML DOS MED FOR IM USE 02661 [place] [facility] HYDROXY 7 [facility] INCLUDES INC INC FRACTIONS IF PERFORMED COLLECTIO 30271 [place] [facility] N VENOUS 7 [facility] BLOOD INC INC VENIPUNCT URE IM ADM 33862 [facility] [facility] PRQ ID 7 VALLEY SUBQ/IM INTERNAL NJXS 1 MED VACCINE COMPREHEN 27554 [place] [facility] SIVE 7 [facility] METABOLIC INC INC PANEL BLOOD 91697 [place] [facility] COUNT 7 [facility] COMPLETE INC INC AUTO&AUTO DIFRNTL WBC LIPID 30693 [place] [facility] PANEL 7 [facility] INC INC GROUND A0425 [facility] MILEAGE 7 AMBULANCE AMBULANCE PER SERVICE SERVICE STATUTE MILE AMBULANCE A0429 [facility] SERVICE 7 AMBULANCE AMBULANCE BLS SERVICE SERVICE EMERGENCY TRANSPORT THERAPEUT 50243 [place] [facility] IC 7 [facility] PROPHYLAC INC INC TIC/DX INJECTION SUBQ/[place] [address] [place] [facility] HEAD/BRAI 7 [facility] N W/O INC INC CONTRAST MATERIAL UNCLASSIF J3490 [place] [facility] IED DRUGS 7 [place] [address] [place] [facility] MAXILLOFA 7 [facility] CIAL W/O INC INC CONTRAST MATERIAL SCREENING 86824 [facility] 7 [facility] MAMMOGRAP INC INC HY BI 2-VIEW BREAST INC CAD SCREENING G0202 [facility] 7 MEDICAL MAMMOGRAP IMAGING HY WILBERT ASS INCL CAD WHEN PERFORMD NERVE 29151 CINTHYA RODRIGUEZ CONDUCTIO 7 N N STUDIES NEUROLOGY 9-10 STUDIES NEEDLE 26282 [employer] EMG EA 7 N EXTREMTY NEUROLOGY W/PARASPI NL AREA COMPLETE NEEDLE 22899 [employer]opus DeployLICOW RODRIGUEZ EMG EA 7 N EXTREMTY NEUROLOGY W/PARASPI NL AREA COMPLETE NERVE 44794 [employer] CONDUCTIO 7 N N STUDIES NEUROLOGY 9-10 STUDIES OPHTH 80256 [facility] MEDICAL 7 XM&EVAL COMPRHNSV ESTAB PT 1/> ESOPHAGEA 26647 JAINPHANI Ortega 7 [facility] MOTILITY [facility] STUDY W/INTERP& [place] [address] [facility] ABDOMEN & 7 MEDICAL PELVIS IMAGING W/[place] [address] [place] [facility] AMYLASE 7 [facility] INC INC URINE 90485 [place] [facility] 7 [facility] TEST INC INC VISUAL COLOR CMPRSN METHS UNCLASSIF J3490 [place] [facility] IED DRUGS 7 [facility] [place] [address] [place] [facility] LIPASE 7 [facility] INC INC BLOOD 94547 [place] COUNT 7 [facility] COMPLETE INC AUTO&AUTO DIFRNTL WBC COMPREHEN 26161 [place] SIVE 7 [facility] METABOLIC INC INC PANEL URNLS DIP 39058 [place] [facility] 7 [facility] STICK/TAB INC INC LET REAGENT AUTO MICROSCOP Y SPACR A4627 MT MED MT MED BAG/RESRV 7 EQUIPMENT EQUIPMENT OR W/WO INC INC MASK W/METRD DOSE INHAL SPMTRY 73049 [facility] W/VC 7 [facility] [employer] [place] Y ABHI CO W/WO MXML VOL VNTJ NITRIC 32584 [facility] OXIDE 7 [facility] [place] GAS CO DETERMINA TION DEMO&/VIPUL 25550 [facility] ROS[facility] L OF PT 7 [facility] [place] AERSL CO GEN/NEB/I NHLR/IP RADIOLOGI 56160 [facility] C 7 MEDICAL EXAMINATI IMAGING ON KNEE 3 ASS VIEWS EXTERNAL 94810 [place] [facility] ECG 7 [facility] SCANNING INC INC ANALYSIS REPORT XTRNL ECG 93987 [place] 7 [facility] S RHYTHM P W/I&R UP TO 48 HRS XTRNL ECG 38878 [place] [facility] & 48 HR 7 [facility] RECORDING INC INC ECG 45236 [place] ROUTINE 7 [facility] W/LEAST P 12 LDS [place] [address] [place] [facility] TROPONIN 7 [facility] QUANTITAT INC INC SABIHA COMPREHEN 94280 [place] [facility] SIVE 7 [facility] METABOLIC INC INC PANEL ECG 19900 [place] ROUTINE 7 [facility] ECG INC INC W/LEAST 12 LDS TRCG ONLY W/O I&R CREATINE 61855 [place] [facility] KINASE MB 7 [facility] FRACTION INC INC ONLY CREATINE 65666 [place] [facility] KINASE 7 [facility] TOTAL INC INC ANES 29291 [facility] UPPER GI 7 [place] ENDOSCOPY ANESTHESI PROXIMAL A TO DUODENUM EGD 56302 JAIN SANCHEZ TRANSORAL 7 HEALTH BIOPSY MEDICAL SINGLE/MU GROUP LTIPLE ECG 34017 [facility] ROUTINE 7 HEART ECG SPECIALIS W/LEAST TS, 12 LDS I&R ONLY ECG 56329 [facility] RENUSCH ROUTINE 7 PHYSICIAN ECG S, PLLC W/LEAST 12 LDS I&R ONLY COMPREHEN 37309 [place] SIVE 7 [facility] [place] [address] [place] [facility] TROPONIN 7 [facility] QUANTITAT INC INC SABIHA ECG 51374 [place] ROUTINE 7 [facility] ECG INC INC W/LEAST 12 LDS TRCG ONLY W/O I&R ECG 90877 JAIN JAIN ROUTINE 7 [facility] ECG [facility] W/LEAST 12 LDS TRCG ONLY W/O I&R COLLECTIO 01863 J[facility] JAIN N VENOUS 7 [facility] BLOOD [facility] [address] [facility], PICKLESIM SURG 7 [facility] ER JR PATHOLOGY GROSS&BRYCE ROSCOPIC EXAM COLPOSCOP 37324 [facility] KAM Mercedes CERVIX 7 PHYSICIAN BX CERVIX S GROUP & [place] [address] JAIN JAIN TRACT 7 [facility] UPPER [facility] W/WO DELAYED IMAGES W/[place] [address] [facility] HEAD/BRAI 7 MEDICAL MEDICAL N W/O IMAGING IMAGING CONTRAST ASS ASS MATERIAL UNCLASSIF J3490 [place] [facility] IED DRUGS 7 [facility] INC INC GONADOTRO 43797 [place] [facility] PIN 7 [facility] FOLLICLE INC INC STIMULATI NG HORMONE GONADOTRO 38782 [place] [facility] PIN 7 [facility] LUTEINIZI INC INC NG HORMONE COLLECTIO 08945 [place] [facility] N VENOUS 7 [facility] BLOOD INC INC VENIPUNCT URE BLOOD 39089 [place] [facility] COUNT 7 [facility] COMPLETE INC INC AUTO&AUTO DIFRNTL WBC COMPREHEN 86853 [place] [facility] SIVE 7 [facility] [place] [address] [place] [facility] GAMMAGLOB 7 [facility] ULIN IGA INC INC IGD IGG IGM EACH LIPID 36594 [place] [facility] PANEL 7 [facility] INC INC URNLS DIP 41074 [place] [facility] 7 [facility] STICK/TAB INC INC LET REAGENT AUTO MICROSCOP Y COMPREHEN 04283 [place] [facility] SIVE 7 [facility] [place] [address] [place] [facility] INFUSION 7 [facility] THERAPY/P INC INC ROPHYLAXI S /DX 1ST TO 1 HR BLOOD 51431 [place] [facility] COUNT 7 [facility] COMPLETE INC INC AUTO&AUTO DIFRNTL WBC UNCLASSIF J3490 [place] [facility] IED DRUGS 7 [place] [address] [place] [facility] INFUSION 7 [facility] THERAPY INC INC PROPHYLAX IS/DX EA HOUR UNCLASSIF J3490 [place] IED DRUGS 7 [facility] [place]X 57723 YV[facility]TE BUX DX/THER 7 MD RHIANNON, SBST PSC INTRLMNR LMBR/SAC W/IMG GDN CYTP C/V 98912 [facility] TOD ESQUIVEL AUTO THIN 7 LLC LYR PREPJ SCR MNL RESCR PHYS CYTP 26059 [facility] TOD ESQUIVEL CERVICAL/ 7 LLC VAGINAL REQ INTERP PHYSICIAN IADNA 38271 [facility] LABSTOD HUMAN 7 LLC [place] VIRUS HIGH-RISK TYPES URNLS DIP 90067 [facility] HUMPHREY 7 PHYSICIAN STICK/TAB S GROUP LET RGNT NON-AUTO W/O MICRSCP ECG 91054 [place] [facility] ROUTINE 7 [facility] ECG INC INC W/LEAST 12 LDS TRCG ONLY W/O I&R ANTINUCLE 41398 [place] [facility] AR 7 [facility] ANTIBODIE INC INC S SANNA PROTEIN 97989 [place] [facility] ELECTROPH 7 [facility] ORETIC INC INC FRACTJ&QU ANTJ SERUM COLLECTIO 56177 [place] [facility] N VENOUS 7 [facility] BLOOD INC INC VENIPUNCT URE BLOOD 48903 [place] [facility] COUNT 7 [facility] COMPLETE INC INC AUTO&AUTO DIFRNTL WBC COMPREHEN 61237 [place] [facility] SIVE 7 [facility] METABOLIC INC INC PANEL URNLS DIP 74424 [place] 7 [facility] STICK/TAB INC INC LET RGNT AUTO W/O MICROSCOP Y CT THORAX 11205 [place] [facility]ALLEYON 7 [facility] W/[place] [address] [place] [facility] UREA 7 [facility] NITROGEN INC INC QUANTITAT SABIHA CREATININ 51390 [place] [facility] E BLOOD 7 [facility] INC INC UNCLASSIF J3490 [place] [facility] IED DRUGS 7 [facility] INC INC COLLECTIO 98932 [place] [facility] N VENOUS 7 [facility] BLOOD [place]X 41977 [facility] DUFF DX/THER 7 MD RHIANNON, AGT PVRT PSC FACET JT LMBR/SAC 3+ LEVEL ECG 22403 [facility] KIMBERLY ROUTINE 7 PHYSICIAN ECG S GROUP W/LEAST 12 LDS I&R ONLY NJX 45849 [facility] DUFF DX/THER 7 MD RHIANNON, AGT PVRT PSC FACET JT LMBR/SAC 1 LEVEL NJX 29094 [facility] DUFF DX/THER 7 MD RHIANNON, AGT PVRT PSC FACET JT LMBR/SAC 2ND LEVEL ECG 98422 [place] [facility] ROUTINE 7 [facility] ECG INC INC W/LEAST 12 LDS TRCG ONLY W/O I&R ECG 19930 [place] [facility] ROUTINE 7 [facility] ECG INC INC W/LEAST 12 LDS TRCG ONLY W/O I&R RADEX 50252 [place] [facility] ABDOMEN 7 [facility] COMPL INC INC W/DCBTS&/ ERC VIEWS THER 11896 [place] [facility] PROPH/DX 7 [facility] NJX IV INC INC PUSH SINGLE/1S T SBST/[place] [address] [place] [facility] AMYLASE 7 [facility] INC INC CREATINE 85850 [place] [facility] KINASE MB 7 [facility] FRACTION INC INC ONLY UNCLASSIF J3490 [place] [facility] IED DRUGS 7 [facility] INC INC CREATINE 19360 [place] [facility] KINASE 7 [facility] [place] [address] [place] [facility] LIPASE 7 [facility] INC INC BLOOD 89145 [place] [facility] COUNT 7 [facility] COMPLETE INC INC AUTO&[place] [address] [place] [facility] TROPONIN 7 [facility] QUANTITAT INC INC SABIHA COMPREHEN 98838 [place] [facility] SIVE 7 [facility] METABOLIC INC INC PANEL THERAPEUT 67205 [place] [facility] IC 7 [facility] INJECTION INC INC IV PUSH EACH NEW DRUG ECG 89096 [place] [facility] ROUTINE 7 [facility] W/LEAST P 12 LDS I&R ONLY ECG 72784 [facility] ROUTINE 7 PHYSICIAN ECG S GROUP W/LEAST 12 LDS I&R ONLY ECG 70940 [place] [facility] ROUTINE 7 [facility] ECG INC INC W/LEAST 12 LDS TRCG ONLY W/O I&R ECG 99228 [facility] ROUTINE 7 PHYSICIAN ECG S GROUP W/LEAST 12 LDS I&R ONLY XTRNL ECG 45932 [place] [facility] & 48 HR 7 [facility] RECORDING INC INC ECG 08490 [facility] ROUTINE 7 PHYSICIAN ECG S, PLLC W/LEAST 12 LDS I&R ONLY RADIOLOGI 36262 [facility] C EXAM 7 PHYSICIAN CHEST 2 S, PLLC VIEWS FRONTAL&L ATERAL COMPREHEN 59165 [place] [facility] SIVE 7 [facility] [place] [address] [place] [facility] TROPONIN 7 [facility] QUANTITAT INC INC SABIHA BLOOD 45845 [place] [facility] COUNT 7 [facility] COMPLETE INC INC AUTO&AUTO DIFRNTL WBC CREATINE 61290 [place] [facility] KINASE MB 7 [facility] FRACTION INC INC ONLY ECG 28535 [place] [facility] ROUTINE 7 [facility] ECG INC INC W/LEAST 12 LDS TRCG ONLY W/O I&R MRI 97382 [facility] SPINAL 7 CANAL ORTHOPAED LUMBAR ICS PSC W/O CONTRAST MATERIAL CREATINE 06621 [place] [facility] KINASE 7 [facility] TOTAL INC INC AMB A0427 [facility] SERVICE 7 AMBULANCE AMBULANCE ALS SERVICE SERVICE EMERGENCY TRANSPORT LEVEL 1 GROUND A0425 [facility] MILEAGE 7 AMBULANCE AMBULANCE PER SERVICE SERVICE STATUTE MILE RADEX 88544 [facility] SPINE 7 [place] LUMBOSACR ORTHOPAED AL 2/[address] [place] [address] [facility] CERVICAL 7 MEDICAL MEDICAL SPINE W/O [place]AG[place] [address] [place] CERRATO HEAD/BRAI 7 MEDICAL N W/O IMAGING CONTRAST ASS MATERIAL ECG 39368 [place] [facility] ROUTINE 7 [facility] ECG INC INC W/LEAST 12 LDS TRCG ONLY W/O I&R ECG 67951 [place] ROUTINE 7 [facility] W/LEAST P 12 LDS I&R ONLY COLLECTIO 44776 [place] [facility] N VENOUS 7 [facility] [place] [address] [place] [facility] FOLIC 7 [facility] ACID INC INC SERUM 25 74939 [place] [facility] HYDROXY 7 [facility] INCLUDES INC INC FRACTIONS IF PERFORMED CYANOCOBA 94486 [place] [facility] LYUBOV 7 [facility] VITAMIN INC INC B-12 UNCLASSIF J3490 [place] [facility] IED DRUGS 7 [facility] INC INC THERAPEUT 74431 [place] [facility] IC 7 [facility] PROPHYLAC INC INC TIC/DX INJECTION SUBQ/IM UNCLASSIF J3490 [place] [facility] IED DRUGS 7 [facility] INC INC URNLS DIP 97120 [place] [facility] 7 [facility] STICK/TAB INC INC [place] [address] JAIN JAIN TRACT 7 [facility] UPPER [facility] W/WO DELAYED IMAGES W/KUB DESTRUCTI 35743 JASSO JASSO ON BENIGN 7 LESIONS UP TO 14 RADEX 82508 [place] SAQIB ABDOMEN 1 7 MEDICAL IMAGING ANTEROPOS ASS TERIOR VIEW TX PROC G0238 [place] [facility] IMPRV 7 [facility] RESP INC INC FUNCT NOT G0237 FCE-FCE 15MIN [place] [address] [place] [facility] INFUSION 7 [facility] THERAPY/P INC INC ROPHYLAXI S /DX 1ST TO 1 HR COMPREHEN 06339 [place] [facility] SIVE 7 [facility] METABOLIC INC INC PANEL BLOOD 00531 [place] [facility] COUNT 7 [facility] COMPLETE INC INC AUTO&AUTO DIFRNTL WBC RAD EXP G9500 [facility] CERRATO INDICES/E 7 MEDICAL XP TM & IMAGING NUMB ASS FLUORO IMAGES DOC RADEX 31926 [facility] SAQIB ESOPHAGUS 7 MEDICAL IMAGING ASS INJECTION J0330 JAIN JAIN [address] [place] [address] SUCCINYLC [facility] HOLINE CHLORIDE UP TO 20 MG INJECTION J2405 JAIN JAIN [address] [place] [address] ONDANSETR [facility] ON HCL PER 1 MG INJECTION J1100 JAIN JAIN [address] [place] [address] DEXAMETHO [facility] SONE SODIUM PHOSPHATE 1 MG INJECTION J1170 JAIN JAIN 7 [facility] HYDROMORP [facility] KURTIS UP TO 4 MG INJECTION J2704 JAIN JAIN PROPOFOL 7 [facility] 10 MG [facility] INJECTION J2710 JAIN JAIN 7 [facility] NEOSTIGMI [facility] NE METHYLSUL FATE UP TO 0.5 MG INJECTION J3010 JAIN JAIN FENTANYL 7 [facility] CITRATE [facility] 0.1 MG LAPS RPR 61267 JAIN GARCIA PARAESPHG 7 [facility] L HRNA MEDICAL INCL GROUP FUNDPLSTY W/O MESH INJECTION J1650 JAIN JAIN 7 [facility] ENOXAPARI [facility] N SODIUM 10 MG ANES 14036 [facility] INTRAPERI 7 [place] TONEAL ANESTHESI UPPER A ABDOMEN W/LAPS NOS GLUCOSE 75195 JAIN JAIN QUANTITAT 7 [facility] SABIHA BLOOD [facility] XCPT REAGENT STRIP HEMOGLOBI 31471 JAIN JAIN N 7 [facility] GLYCOSYLA [facility] LANEY A1C BLOOD 51864 JAIN JAIN COUNT 7 [facility] COMPLETE [facility] AUTOMATED ECG 26760 JAIN ANNA ROUTINE 7 [facility] ECG MEDICAL W/LEAST GROUP 12 LDS I&R ONLY COLLECTIO 14967 JAIN JAIN N VENOUS 7 [facility] BLOOD [facility] VENIPUNCT URE ECG 52083 JAIN JAIN ROUTINE 7 [facility] ECG [facility] W/LEAST 12 LDS TRCG ONLY W/O I&[place] [address] [place] [facility] AMYLASE 6 [facility] ECG 96830 [place] [facility] ROUTINE 6 [facility] ECG INC INC W/LEAST 12 LDS TRCG ONLY W/O I&R RADEX 95871 [facility] ABDOMEN 6 MEDICAL MEDICAL COMPL IMAGING IMAGING W/DCBTS&/ [place] [address] [place] [facility] LIPASE 6 [facility] INC RADIOLOGI 63588 [facility] C EXAM 6 [facility] CHEST 2 IMAGING IMAGING VIEWS ASS ASS FRONTAL&L ATERAL ECG 72745 [place] CHAVE[facility] JR ROUTINE 6 [facility] W/LEAST P 12 LDS I&R ONLY BLOOD 77406 [place] [facility] COUNT 6 [facility] COMPLETE INC INC AUTO&AUTO DIFRNTL WBC COMPREHEN 76097 [place] [facility] SIVE 6 [facility] METABOLIC INC INC PANEL THERAPEUT 67717 [place] [facility] IC 6 [facility] INJECTION INC [place] [address] [place] [facility] INFUSION 6 [facility] THERAPY/P INC INC ROPHYLAXI S /DX 1ST TO 1 HR BLOOD 70005 [facility] OCCULT 6 [facility] INTERNAL E ACTV MED QUAL FECES 1 DETER GLUC BLD 44751 [place] [facility] GLUC MNTR 6 [facility] DEV INC [place] [address] [place] [facility] HEAD/BRAI 6 MEDICAL N W/O IMAGING CONTRAST ASS MATERIAL THERAPEUT 69516 [place] [facility] IC 6 [facility] PROPHYLAC INC INC TIC/DX INJECTION SUBQ/IM RADEX 16429 [place] [facility] SACRUM & 6 [facility] COCCYX INC INC MINIMUM 2 VIEWS RADEX 58892 [place] [facility] SPINE 6 [facility] LUMBOSACR INC INC AL MINIMUM 4 VIEWS URINE 49347 [place] [facility] 6 [facility] TEST INC INC VISUAL COLOR CMPRSN METHS RADIOLOGI 20447 [place] [facility] C 6 [facility] EXAMINATI INC INC ON PELVIS 1/2 VIEWS IAADI 85300 [place] [facility] INFLUENZA 6 [facility] B VIRUS INC IAADI 94274 [place] [facility] INFFLUENZ 6 [facility] [place] [address] [place] [facility] STREPTOCO 6 [facility] CCUS INC INC GROUP A BLOOD 61741 [place] [facility] COUNT 6 [facility] COMPLETE INC INC AUTO&AUTO DIFRNTL WBC CUL BACT 02082 [place] [facility] XCPT 6 [facility] URINE INC INC BLOOD/STO OL AEROBIC ISOL RADEX 45014 [place] [facility] SINUSES 6 [facility] PARANASAL INC INC COMPL MINIMUM 3 VIEWS RADIOLOGI 74660 [place] [facility] C EXAM 6 MEDICAL ADRIANNA CHEST 2 IMAGING VIEWS ASS FRONTAL&L ATERAL ANESTHESI 94460 [facility] A NOSE & 6 ANESTH ACCESSORY OF THE SINUSES BLUE NOS DECALCIFI 46427 [facility] PICKLES[facility] CATION 6 [facility] [place] [address] [facility], [facility] SURG 6 [facility] PATHOLOGY GROSS&BRYCE ROSCOPIC EXAM ECG 95849 [place] GIOVANI ROUTINE 6 [facility] W/LEAST P 12 LDS I&R ONLY ECG 20379 [place] ROUTINE 6 [facility] ECG INC INC W/LEAST 12 LDS TRCG ONLY W/O I&R COLLECTIO 31684 [place] [facility] N VENOUS 6 [facility] BLOOD INC INC VENIPUNCT URE BLOOD 81149 [place] [facility] COMPLETE INC INC AUTO&AUTO DIFRNTL WBC ANTIBODY 25339 [place] [facility] HERPES 6 [facility] SMPLX INC INC TYPE 1 ANTIBODY 46541 [place] [facility] VIRUS NOT 6 [facility] INC INC ELSEWHERE SPECIFIFE D COMPREHEN 41248 [place] [facility] SIVE 6 [facility] [place] [address] [place] [facility] MAXILLOFA 6 [facility] CIAL W/O INC INC CONTRAST MATERIAL URINE 27097 [place] [facility] 6 [facility] TEST INC [place] [address] [facility] HEAD/BRAI 6 MEDICAL N W/[place] [address] [place] [facility] CERVICAL 6 [facility] SPINE W/O INC INC CONTRAST MATERIAL COMPRE 39603 MAEGAN ISSA AUDIOMETR 6 JARON JARON Y THRESHOLD EVAL SP RECOGNIJ TYMPANOME 79610 MAEGAN ISSA TRY 6 JARON JARON DISTORT 16799 MAEGAN ISSA PRODUCT 6 JARON JARON EVOKED OTOACOUST IC EMISNS LIMITD PULMONARY 53536 [place] NO[place] STRESS 6 MEDICAL TESTING SERV SIMPLE FOUNDATIO N GAS 62404 [place] DILUT/WAS 6 MEDICAL MEDICAL HOUT LUNG SERV SERV VOL W/WO FOUNDATIO FOUNDAT[place] DISTRIB N N VENT&[place] [address] [place] DIFFUSING 6 MEDICAL CAPACITY SERV FOUNDATIO N ELIG CLIN G8427 STAMPING RODRIGUEZ TRI ATTSTS 6 GROUND DOC M REC FAMILY OBTD CLINI UPD/REV PT MEDS ECG 00058 [place] MATUTE ROUTINE 6 [facility] W/LEAST P 12 LDS I&R ONLY IM ADM 52906 [facility] PRQ ID 6 [facility] DISTRICT SUBQ/IM HLTH DEPT HLTH DEPT NJXS 1 JAZZ JAZZ VACCINE SYPHILIS 23044 [facility] TEST 6 [facility] HLTH DEPT NEMAL JAZZ JAZZ ANTIBODY QUAL COLLECTIO 87958 [place] [facility] N VENOUS 6 [facility] BLOOD INC INC VENIPUNCT URE SKIN TEST 07373 [facility] 6 [facility] HLTH DEPT HLTH DEPT SIS JAZZ JAZZ INTRADERM AL BLOOD 21642 [place] [facility] OCCULT 6 [facility] PEROXIDAS INC INC E ACTV QUAL FECES 1-3 SPEC IM ADM 71210 [facility] PRQ ID 6 DISTRICT DISTRICT SUBQ/IM HLTH DEPT HLTH DEPT NJXS EA JAZZ JAZZ VACCINE BLOOD 37666 [place] [facility] COMPLETE INC INC AUTO&AUTO DIFRNTL WBC TDAP 53076 [facility] VACCINE 7 6 [facility] DISTRICT YRS/> IM HLTH DEPT HLTH DEPT JAZZ JAZZ XTRNL ECG 31730 [place] MAT[place] 6 [facility] S RHYTHM P W/I&R UP TO 48 HRS PROF SVCS 05593 ALLERGY ROSENTHAL MAR ALLG 6 [facility] IMMNTX X OF [place] W/PRV CO ALLGIC XTRCS NJXS BLOOD 75880 [place] [facility] COUNT 6 [facility] RETICULOC INC INC YTE AUTOMATED ANTINUCLE 85075 [place] [facility] AR 6 [facility] ANTIBODIE INC INC S SANNA NITRIC 20673 ALLERGY ROSENTHAL MAR OXIDE 6 [facility] [place] GAS CO DETERMINA TION BLOOD 31936 [place] [facility] COUNT 6 [facility] COMPLETE INC INC AUTO&AUTO DIFRNTL WBC RHEUMATOI 71311 [place] Morillo FACTOR 6 [facility] QUANTITAT INC INC SABIHA SEDIMENTA 16667 [place] [facility] TION RATE 6 [facility] RBC INC INC NON-AUTOM ATED ECG 65878 [place] ROUTINE 6 [facility] W/LEAST P 12 LDS I&R ONLY SPMTRY 32244 ALLERGY ROSENTHAL MAR W/VC 6 PARTNERS EXPIRATOR OF [place] Y ABHI CO W/WO MXML VOL VNTJ AMBULANCE A0429 [facility]ICE 6 AMBULANCE PATY BLS SERVICE EMERGENCY TRANSPORT GROUND A0425 [facility] MILEAGE 6 AMBULANCE PATY PER SERVICE STATUTE MILE BONE 80108 [place] [facility] &/JOINT 6 [facility] IMAGING INC INC WHOLE BODY SEDIMENTA 19015 [place] [facility] TION RATE 6 [facility] RBC INC INC NON-AUTOM ATED COLLECTIO 96483 [place] Gutierrez VENOUS 6 [facility] BLOOD INC INC VENIPUNCT URE BLOOD 75384 [place] COUNT 6 [facility] COMPLETE INC INC AUTO&AUTO DIFRNTL WBC TECHNETIU A9503 [place] Montenegro TC-99M 6 [facility] MEDRONATE INC INC DX UP TO 30 MCI BLOOD 90135 [place] COUNT 6 [facility] RETICULOC INC INC YTE AUTOMATED BASIC 47084 [place] [facility] METABOLIC 6 [facility] PANEL INC INC CALCIUM TOTAL RADIOLOGI 03390 [facility] C EXAM 6 MEDICAL MEDICAL CHEST 2 IMAGING IMAGING VIEWS ASS ASS FRONTAL&L ATERAL ANES 97743 [place] BRITTNY LOWER 6 ANESTHESI INTESTINE A GROUP [place] [address] [place] [facility] THYROXINE 6 [facility] TOTAL INC INC GONADOTRO 93047 [place] [facility] PIN [facility] FOLLICLE INC INC STIMULATI NG HORMONE GONADOTRO 77196 [place] [facility] PIN 6 [facility] [place] [address] [place] [facility] THYROID 6 [facility] STIMULATI INC INC NG HORMONE TSH COLLECTIO 80106 [place] [facility] N VENOUS 6 [facility] BLOOD INC INC VENIPUNCT URE THYROID 83935 [place] [facility] HORM 6 [facility] UPTK/THYR INC INC OID HORMONE BINDING RATIO ECG 75514 [place] ROUTINE 6 [facility] W/LEAST P 12 LDS I&R ONLY AMB A0427 [facility] SERVICE 6 AMBULANCE KILO ALS SERVICE EMERGENCY TRANSPORT LEVEL 1 RADIOLOGI 36984 [facility] C 6 MEDICAL MEDICAL EXAMINATI IMAGING IMAGING ON CHEST ASS ASS SINGLE VIEW FRONTAL GROUND A0425 [facility] MILEAGE 6 AMBULANCE KILO PER SERVICE STATUTE MILE PREPJ& 58239 ALLERGY ROSENTHAL MAR ALLERGEN 6 PARTNERS IMMUNOTHE OF TRE PEREZ CO 1/[place] [address] [place] [facility] INFUSION 6 [facility] THERAPY INC INC PROPHYLAX IS/DX EA HOUR CREATINE 48471 [place] [facility] KINASE 6 [facility] TOTAL INC INC RADIOLOGI 44580 [place] [facility] C 6 [facility] EXAMINATI INC INC ON KNEE 3 VIEWS ECG 79520 [place] [facility] ROUTINE 6 [facility] ECG INC INC W/LEAST 12 LDS TRCG ONLY W/O I&R CREATINE 77316 [place] [facility] KINASE MB 6 [facility] [place] [address] [place] [facility] CERVICAL 6 [facility] SPINE W/[place] [address] [place] [facility] HEAD/BRAI 6 [facility] N W/O INC INC CONTRAST MATERIAL ECG 20537 A[place]INKIMBERLY MATUTE ROUTINE 6 [facility] W/LEAST P 12 LDS I&[place] [address] [place] [facility] TROPONIN 6 [facility] QUANTITAT INC INC SABIHA BLOOD 73071 [place] [facility] COUNT 6 [facility] COMPLETE INC INC AUTO&[place] [address] [place] [facility] INFUSION 6 [facility] THERAPY/P INC INC ROPHYLAXI S /DX 1ST TO 1 HR COMPREHEN 53330 [facility] [facility] SIVE 6 [facility] METABOLIC INC INC PANEL SPACR A4627 [facility] KRASNOPOL BAG/RESRV 6 EQUIPMENT ANTONIO LAUREN OR W/WO INC MASK W/METRD DOSE INHAL SPMTRY 55174 ALLERGY ROSENTHAL MAR W/VC 6 [facility]ERS EXP[employer] [place] Y ABHI CO W/WO MXML VOL VNTJ PERCUTANE 09294 ALLERGY ROSENTHAL MAR OUS TESTS 6 [facility] [place] W/ALLERGE CO LEO EXTRACTS INTRACUTA 45140 ALLERGY ROSENTHAL MAR NEOUS 6 PARTNERS TESTS OF [place] W/ALLERGE CO LEO EXTRACTS NITRIC 24066 ALLERGY ROSENTHAL MAR OXIDE 6 [facility] [place] [address] [facility] HUMPHREY TRANSVAGI 6 PHYSICIAN MEAGAN NAL S GROUP ECG 40670 [place] CHAVEZ JR ROUTINE 6 [facility] W/LEAST P 12 LDS I&R ONLY IADNA 01573 [place] [facility] NEISSERIA 6 [facility] INC INC GONORRHOE AE AMPLIFIED PROBE TQ IADNA 23797 [place] [facility] CHLAMYDIA 6 [facility] INC INC TRACHOMAT [place] [address] [facility] [place] ANDREWS TRACT 6 RADIOLOGY RHO UPPER W/WO DELAYED IMAGES W/KUB ECG 30518 [place] MICHISHELLY ROUTINE 6 [facility] W/LEAST P 12 LDS I&R ONLY RADIOLOGI 22931 [place] CERRATO ALL C 6 MEDICAL EXAMINATI IMAGING ON CHEST ASS SINGLE VIEW FRONTAL ELECTROEN 75266 CINTHYA DONALD CEPHALOGR 6 N AM W/REC NEUROLOGY AWAKE&ASL EEP ECG 13300 [place] MICHISHELLY ROUTINE 6 [facility] W/LEAST P 12 LDS I&[place] [address] [facility] ABDOMEN & 6 MEDICAL MEDICAL PELVIS IMAGING IMAGING W/CONTRAS ASS ASS T MATERIAL ELECTROEN 56606 [facility] CEPHALOGR 6 N N AM W/REC COMMUNTIY COMMUNTIY [facility] WSY RADEX 33825 [facility] ALL SPINE 6 MEDICAL THORACIC IMAGING 2 VIEWS ASS RADIOLOGI 27008 [facility] ALL C 6 MEDICAL EXAMINATI IMAGING ON CHEST ASS SINGLE VIEW FRONTAL ECG 58436 [place] CHAVEZ JR ROUTINE 6 [facility] W/LEAST P 12 LDS I&R ONLY COMPUTER- 97782 [place] HARLEEN AIDED 6 MEDICAL ADRIANNA DETECTION IMAGING ASS SCREENING MAMMOGRAP HY SCREENING G0202 [place] HARLEEN 6 MEDICAL ADRIANNA MAMMOGRAP IMAGING HY WILBERT ASS INCL CAD WHEN PERFORMD ECG 97866 [place] CHAVEZ JR ROUTINE 6 [facility] W/LEAST P 12 LDS I&[place] [address] [place] [facility] TROPONIN 6 [facility] QUANTITAT INC INC SABIHA BLOOD 15447 [place] [facility] COUNT 6 [facility] COMPLETE INC INC AUTO&AUTO DIFRNTL WBC URNLS DIP 37386 [place] [facility] 6 [facility] STICK/TAB INC [place] [address] [place] [facility] INFUSION 6 [facility] THERAPY/P INC INC ROPHYLAXI S /DX 1ST TO 1 HR COMPREHEN 63962 [place] [facility] SIVE 6 [facility] METABOLIC INC INC PANEL RADEX ABD 24054 SEJAL CERRATO ALL COMPL 6 MEDICAL AQT ABD IMAGING W/S/E/D ASS VIEWS 1 VIEW CH ECG 33459 [place] [facility] ROUTINE 6 [facility] ECG INC INC W/LEAST 12 LDS TRCG ONLY W/O I&[place] [address] [place] LACTATE 6 [place] [address] [place] [facility] INFUSION 6 [facility] THERAPY/P INC INC ROPHYLAXI S /DX 1ST TO 1 HR URNLS DIP 97310 [place] [facility] 6 [facility] STICK/TAB INC INC LET REAGENT AUTO MICROSCOP Y COMPREHEN 32412 [place] [facility] SIVE 6 [facility] [place] [address] [place] [facility] TROPONIN 6 [facility] QUANTITAT INC INC SABIHA BLOOD 97192 [place] [facility] COUNT 6 [facility] COMPLETE INC INC AUTO&AUTO DIFRNTL WBC ECG 73793 [place] MAT[place] ROUTINE 6 [facility] W/LEAST P 12 LDS I&R ONLY RADIOLOGI 03205 SEJAL CERRATO ALL C EXAM 6 MEDICAL CHEST 2 IMAGING VIEWS ASS FRONTAL&L ATERAL URINE 74733 [place] [facility] 6 [facility] TEST INC INC VISUAL COLOR CMPRSN METHS CULTURE 73300 [place] [facility] BACTERIAL 6 [facility] INC INC QUANTTATI VE COLONY COUNT URINE CREATINE 80498 [place] [facility] KINASE 6 [facility] TOTAL INC INC CREATINE 30898 [place] [facility] KINASE MB 6 [facility] FRACTION INC INC ONLY ECG 08918 [place] [facility] ROUTINE 6 [facility] ECG INC INC W/LEAST 12 LDS TRCG ONLY W/O I&R RADEX ABD 72770 SEJAL CERRATO ALL COMPL 6 MEDICAL AQT ABD IMAGING W/S/E/D ASS VIEWS 1 VIEW CH AMB A0427 [facility] SERVICE 6 AMBULANCE AMBULANCE ALS SERVICE SERVICE EMERGENCY TRANSPORT LEVEL 1 GROUND A0425 [facility] 6 AMBULANCE AMBULANCE PER SERVICE SERVICE STATUTE MILE THER 95540 [facility] PROPH/DX 6 N N NJX IV COMMUNTIY COMMUNTIY PUSH HOSPITA HOSPITA SINGLE/1S T SBST/DRUG MRI BRAIN 93880 [facility] BRAIN 6 N N STEM W/O COMMUNTIY COMMUNTI[place] [address] [facility] INFUSION 6 N N HYDRATION COMMUNTIY COMMUNTIY EACH HOSPITA HOSPITA ADDITIONA L HOUR COLLECTIO 86660 [facility] N VENOUS 6 N N BLOOD COMMUNTIY COMMUNTIY VENIPUNCT HOSPITA HOSPITA URE BLOOD 22767 [facility] COUNT 6 N N COMPLETE COMMUNTIY COMMUNTIY AUTO&AUTO HOSPITA HOSPITA DIFRNTL WBC COMPREHEN 99861 [facility] SIVE 6 N N METABOLIC COMMUNTIY COMMUNTIY PANEL HOSPITA HOSPITA ECG 34673 [place] ROUTINE 6 [facility] W/LEAST P 12 LDS I&[place] [address] [place] CERRAT[place] ALL ABDOMEN & 6 MEDICAL PELVIS IMAGING W/[place] [address] [place] CERRAT[place] ALL HEAD/BRAI 6 MEDICAL N W/O IMAGING CONTRAST ASS MATERIAL RADIOLOGI 36816 [place] CERRAT[place] ALL C 6 MEDICAL EXAMINATI IMAGING ON CHEST ASS SINGLE VIEW FRONTAL AMB A0427 [facility] SERVICE 6 AMBULANCE AMBULANCE ALS SERVICE SERVICE EMERGENCY TRANSPORT LEVEL 1 GROUND A0425 [facility] 6 AMBULANCE AMBULANCE PER SERVICE SERVICE STATUTE MILE CHIROPRAC 11688 [facility] TIC 6 MANIPULAT SABIHA TX SPINAL 3-4 REGIONS MANUAL 58098 [facility] THERAPY 6 TQS 1/> REGIONS EACH 15 MINUTES THERAPEUT 03792 [facility] IC PX 1/> 6 AREAS EACH 15 MIN EXERCISES CHIROPRAC 46264 [facility] TIC 6 MANIPLTV TX EXTRASPIN AL 1/> REGION THERAPEUT 98996 [facility] IC PX 1/> 6 AREAS EACH 15 MIN EXERCISES MANUAL 26660 [facility] THERAPY 6 TQS 1/> REGIONS EACH 15 MINUTES MANUAL 36486 [facility] THERAPY 6 MATTI MATTI TQS 1/> REGIONS EACH 15 MINUTES CHIROPRAC 18439 [facility] TIC 6 MATTI MATTI MANIPULAT SABIHA TX SPINAL 3-4 REGIONS THERAPEUT 84815 [facility] IC PX 1/> 6 MATTI MATTI AREAS EACH 15 MIN EXERCISES CHIROPRAC 76227 [facility] TIC 6 MATTI MATTI MANIPLTV TX EXTRASPIN AL 1/> REGION COMPREHEN 85531 [facility] SIVE 6 DIAGNOSTI DIAGNOST[place] [address] SCALF LEI SCALF LEI SURG 6 PATHOLOGY GROSS&BRYCE ROSCOPIC EXAM IMHISTOCH 40942 SCALF LEI SCALF LEI EM/CYTCHM 6 1ST ANTIBODY STAIN PROCEDURE BX SKIN 72665 SCALF LEI SCALF LEI SUBCUTANE 6 OUS&/MUCO US MEMBRANE [address] [facility] ROUTINE 6 [facility] W/LEAST P 12 LDS I&R ONLY ECG 15241 JAIN ANDRES ROUTINE 6 [facility] ECG MEDICAL W/LEAST GROUP 12 LDS I&R ONLY COLLECTIO 03538 JAIN JAIN N VENOUS 6 [facility]ALTH [facility] BLOOD [facility] VENIPUNCT URE HEMOGLOBI 77340 JAIN JAIN N 6 HEALTH HEALTH GLYCOSYLA [facility] LANEY A1C BLOOD 54022 JAIN JAIN COUNT 6 [facility]ALTH HEALTH COMPLETE [facility] AUTOMATED LOCM Q9967 JAIN JAIN [phone] 6 HEALTH HEALTH MG/ML [facility] IODINE CONCENTRA TION PER ML GONADOTRO 72556 JAIN JAIN PIN 6 HEALTH HEALTH CHORIONIC [facility] QUANTITAT SABIHA BASIC 51623 JAIN JAIN METABOLIC 6 HEALTH HEALTH PANEL [facility] CALCIUM TOTAL INJECTION J3010 JAIN JAIN FENTANYL 6 [facility] CITRATE [facility] 0.1 MG CATH PLMT 10606 DOMINICK Ortega HRT & 6 [employer] [facility] MEDICAL W/NJX & GROUP ANGIO IMG S&I INJECTION J1644 JAIN JAIN HEPARIN 6 [facility] SODIUM [facility] PER 1000 UNITS LIPID 51893 JAIN JAIN PANEL 6 [facility] MYOCARDIA 66471 [place] Ortega SPECT 6 [facility] MULTIPLE INC INC STUDIES TECHNETIU A9500 [place] Montenegro TC-99M 6 [facility] SESTAMIBI INC INC DX PER STUDY DOSE CV STRS 96295 [place] [facility] TST 6 [facility] XERS&/OR INC INC RX CONT ECG TRCG ONLY CV STRS 02437 [place] TST 6 [facility]&/OR [facility]ATH[facility] RX CONT P P ECG W/O I&R CV STRS 41189 [place] [facility] TST 6 [facility]&/OR [facility] RX CONT P P ECG I&R ONLY ECHO 10882 [place] [facility] TTHRC R-T 6 [facility] 2D INC INC W/WOM-MOD E COMPL SPEC&COLR D ECG 30578 [place] CHAVEZ JR ROUTINE 6 [facility] W/LEAST P 12 LDS I&R ONLY RADIOLOGI 49614 [place] CERRAT[place] ALL C 6 MEDICAL EXAMINATI IMAGING ON CHEST ASS SINGLE VIEW FRONTAL OPHTH 30540 [facility] 6 XM&EVAL COMPRHNSV ESTAB PT 1/> [place] [address] LAB [facility] IRON 6 [place] [address] LAB [facility] LAB [facility] FOLIC 6 MAI MAI ACID [facility] HOLDINGS SERUM 25 98745 [facility] HYDROXY 6 MAI MAI INCLUDES HOLDINGS [place] [address] LAB [facility] LAB [facility]ESH TOCOPHERO 6 MAI MAI L ALPHA [place] [address] LAB MA[facility] LAB [facility]ESH THIAMINE- 6 MAI MAI VITAMIN HOLDINGS HOLD[place] B-1 [place] [address] LAB MA[facility]ESH LAB [facility] MAGNESIUM 6 [place] [address] LAB [facility] LAB [facility] PHOSPHORU 6 MAI MAI S HOLDINGS HOLDINGS INORGANIC ORGANIC 27779 LAB MA[facility] LAB MAHESH ACID 1 6 MAI MAI QUANTITAT [place] [address] LAB [facility] MA[facility] PARATHORM 6 [place] [address] LAB [facility] LAB MAHESH FERRITIN 6 [place] [address] LAB MAHESH LAB MAHESH VITAMIN A 6 MAI MAI HOLDINGS HOLDINGS PREALBUMI 12514 LAB MAHESH LAB MAHESH N 6 [place] [address] LAB [facility] LAB MA[facility]ESH ZINC 6 AMI MAI HOLDINGS HOLDINGS BLOOD 54250 [facility] LAB [facility] COUNT 6 MAI MAI COMPLETE HOLDINGS HOLDINGS AUTO&AUTO DIFRNTL WBC COMPREHEN 38385 [facility] LAB MAHESH SIVE 6 MAI MAI METABOLIC [facility]INGS HOLDINGS PANEL COMPREHEN 63356 [place] [facility] SIVE 6 [facility] METABOLIC INC INC PANEL IRON 38939 [place] TALLEYON BINDING 6 [facility] CAPACITY INC INC BLOOD 48496 [place] [facility] COUNT 6 [facility] COMPLETE INC INC AUTO&AUTO DIFRNTL WBC COLLECTIO 12952 [place] [facility] N VENOUS 6 [facility] [place] [address] [place] VAUGHN FERRITIN [place] [address] [place] [facility] THYROID 6 [facility] STIMULATI INC INC NG HORMONE TSH 25 48927 [place] [facility] HYDROXY 6 [facility] INCLUDES INC [place] [address] [place] [facility] IRON 6 [facility] INC INC IADNA 50194 [facility] CHLAMYDIA 6 LLC TRACHOMAT IS AMPLIFIED PROBE TQ IADNA 06446 [facility] HUMAN [facility] PAPILLOMA VIRUS HIGH-RISK TYPES IADNA 55830 [facility] NEISSERIA 6 [facility] GONORRHOE AE AMPLIFIED PROBE TQ CYTP C/V 24436 [facility], [facility] AUTO THIN 6 [facility] LYR PREPJ SCR MNL RESCR PHYS CYTP 09135 [facility], [facility] CERVICAL/ 6 LLC VAGINAL REQ INTERP PHYSICIAN COLLECTIO 62959 [place] [facility] N VENOUS 6 [facility] BLOOD INC INC VENIPUNCT URE BASIC 39599 [place] [facility] METABOLIC 6 [facility] [place] [address] [place] [facility] THYROID 6 [facility] STIMULATI [place] [address] [place] [facility] THIAMINE- 6 [facility] VITAMIN INC INC B-1 ORGANIC 43695 [place] [facility] ACID 1 6 [facility] [place] [address] [facility] [facility] FERRITIN 6 [place] [address] [facility] [facility] IRON 6 [facility] INC INC COLLECTIO 74424 [place] [facility] N VENOUS 6 [facility] BLOOD INC INC VENIPUNCT URE BLOOD 63547 [place] [facility] COUNT 6 [facility] COMPLETE INC INC AUTO&AUTO DIFRNTL WBC PREALBUMI 60847 [place] [facility] N 6 [facility] INC INC COMPREHEN 02573 [place] [facility] SIVE 6 [facility] METABOLIC INC INC PANEL PREALBUMI 12272 LAB [facility] LAB MAHESH N 5 MAI MAI [facility] [place] [address] LAB MAH[facility] LAB MAHESH IRON 5 MAI MAI [facility] [place] [address] LAB MAHESH LAB MAHESH FOLIC 5 MAI MAI [place] [address] LAB MAHESH LAB MAHESH FERRITIN 5 MA[facility] HOLDINGS ORGANIC 02108 LAB MAHESH LAB MAHESH ACID 1 5 [facility] QUANTITAT [facility] [place] [address] LAB MAHESH LAB MAHESH THIAMINE- 5 [facility] VITAMIN HOLDINGS HOLDINGS B-1 GENERAL 15853 LAB MAHESH LAB MAHESH HEALTH 5 [facility] PANEL HOLDINGS HOLDINGS BX SKIN 64798 ATKINS ATKINS SUBCUTANE 5 TRA TRA OUS&/MUCO US MEMBRANE 1 LESION DESTRUCTI 92325 ATKINS ATKINS ON 5 TRA TRA PREMALIGN ANT LESION 1ST DESTRUCTI 50961 ATKINS ATKINS ON BENIGN 5 TRA TRA LESIONS UP TO 14 BIOPSY 05072 ATKINS ATKINS SKIN 5 TRA TRA SUBQ&/MUC [place] [address] SCALF LEI SCALF LEI SURG 5 PATHOLOGY GROSS&BRYCE ROSCOPIC EXAM COMPREHEN 27243 LAB [facility] SIVE 5 [facility] METABOLIC [facility] HOLDINGS PANEL PREALBUMI 69997 LAB [facility] N 5 MAI MAI [facility] HOLDINGS BLOOD 66081 LAB [facility] COUNT 5 [facility] COMPLETE [facility] HOLDINGS AUTO&[place] [address] LAB [facility] IRON 5 [place] [address] LAB [facility] LAB [facility] FOLIC 5 [facility] ACID [facility]INGS SERUM ORGANIC 07246 [facility] ACID 1 5 [facility] QUANTITAT [place] [address] LAB [facility] LAB [facility] THIAMINE- 5 [facility] VITAMIN HOLDINGS HOLDINGS B-1 COMPUTER- 47175 [facility] AIDED 5 MEDICAL CARMEN DETECTION IMAGING ASS SCREENING MAMMOGRAP HY SCREENING [id number] [facility] 5 MEDICAL CARMEN MAMMOGRAP IMAGING HY WILBERT ASS INCL CAD WHEN PERFORMD LIPID 68512 [facility] PANEL [facility] INC INC COMPREHEN 02342 [facility] SIVE 5 [facility] METABOLIC INC INC PANEL COLLECTIO 79083 [facility] N VENOUS 5 [facility] BLOOD INC INC VENIPUNCT URE BLOOD 90921 [facility] COUNT 5 [facility] COMPLETE INC INC AUTO&AUTO DIFRNTL WBC HEMOGLOBI 73725 [facility] N 5 [facility] GLYCOSY[place] [address] [facility] THYROID 5 [facility] STIMULATI INC INC NG HORMONE TSH CYANOCOBA 93860 [facility] LYUBOV 5 [facility] VITAMIN [place] B-12 [place] [address] [facility] GLUTAMYLT 5 [facility] RASE INC INC GAMMA 25 82189 [facility] HYDROXY 5 [facility] INCLUDES INC INC FRACTIONS IF PERFORMED OPHTH 38277 [facility] SCIFRES MEDICAL 5 ANG ANG XM&EVAL COMPRHNSV ESTAB PT 1/> [place] [address] [facility] ABDOMEN & 5 N N PELVIS COMMUNTIY COMMUNTIY W/[place] [address] [facility] ABDOMEN & 5 [facility] PELVIS INC INC W/CONTRAS T MATERIAL COMPREHEN 15724 [facility] SIVE 5 [facility] METABOLIC INC INC PANEL URNLS DIP 32903 [facility] STICK/TAB INC INC LET REAGENT AUTO MICROSCOP Y BLOOD 50636 [facility] COUNT 5 [facility] COMPLETE INC INC AUTO&[place] [address] [facility] AMYLASE 5 [place] [address] [facility] LIPASE 5 [facility] INC INC CULTURE 45903 [facility] BACTERIAL 5 [facility] INC INC QUANTTATI VE COLONY COUNT URINE URINE 12420 [facility] TEST INC [place] [address] [facility] LIPASE 5 N N COMMUNTIY [place] [address] [facility] THIAMINE- 5 N N VITAMIN COMMUNTIY COMMUNTIY B-[place] [address] [facility] TOCOPHERO 5 N N L ALPHA COMMUNTIY COMMUNTIY [place] [address] [facility] VITAMIN A 5 N N COMMUNTI[place] [address] [facility] PHOSPHORU 5 N N S COMMUNTIY COMMUNTIY [place] [address] [facility] PARATHORM 5 N N ONE COMMUNTIY COMMUNTIY HOSPITA HOSPITA ORGANIC 83665 [facility] ACID 1 5 N N QUANTITAT COMMUNTIY COMMUNTIY [place] [address] [facility] MAGNESIUM 5 N N COMMUN[place] [address] [facility] AMYLASE 5 N N COMMUNTIY COMMUNTIY HOSPITA HOSPITA 25 26966 [facility] HYDROXY 5 N N INCLUDES COMMUNTIY COMMUNTIY FRACTIONS [place] [address] [facility] [facility] FOLIC 5 N N ACID COMMUNTIY [place] [address] [facility] ZINC 5 N N COMMUNTIY COMMUNTIY HOSPITA HOSPITA BLOOD 48744 [facility] COUNT 5 N N COMPLETE COMMUNTIY COMMUNTIY AUTO&AUTO HOSPITA HOSPITA DIFRNTL WBC PREALBUMI 51320 [facility] N 5 N N COMMUNTIY COMMUNTIY HOSPITA HOSPITA COMPREHEN 16111 [facility] SIVE 5 N N METABOLIC COMMUNTIY COMMUNTIY PANEL HOSPITA HOSPITA COLLECTIO 09688 [facility] N VENOUS 5 N N BLOOD COMMUNTIY COMMUNTIY [place] [address] [facility] ABDOMINAL 5 N N REAL COMMUNTIY COMMUNTIY TIME HOSPITA HOSPITA W[place] [address] [facility] [facility] RETROPERI 5 [facility] TONEAL INC [place] W/[place] [address] [place] SARAH KADIE RETROPERI 5 MEDICAL TONEAL IMAGING REAL TIME ASS W/IMAGE LIMITED PROTHROMB 28709 [facility] IN TIME 5 N N COMMUNTIY COMMUNTIY HOSPITA HOSPITA HEPATITIS 26692 [facility] B CORE 5 N N ANTIBODY COMMUNTIY COMMUNTIY HBCAB HOSPITA HOSPITA TOTAL HEPATITIS 99462 [facility] B SURF 5 N N ANTIBODY COMMUNTIY COMM[place] [address] [facility] HEPATITIS 5 N N B COMMUNTIY COMMUNTIY SURFACE HOSPITA HOSPITA ANTIGEN COLLECTIO 06112 [facility] N VENOUS 5 N N BLOOD COMMUNTIY COMMUNTIY VENIPUNCT HOSPITA HOSPITA URE COMPREHEN 84588 [facility] SIVE 5 N N METABOLIC COMMUNTIY COMMUNTIY PANEL HOSPITA HOSPITA ALPHA-1-A 81749 [facility] NTITRYPSI 5 N N N TOTAL COMMUNTIY COMMUNTIY HOSPITA HOSPITA IRON 19187 [facility] BINDING 5 N N CAPACITY COMMUNTIY [place] [address] [facility] GAMMAGLOB 5 N N ULIN IGA COMMUNTIY COMMUNTIY IGD IGG HOSPITA HOSPITA IGM EACH BLOOD 88542 [facility] COUNT 5 N N COMPLETE COMMUNTIY COMMUNTIY AUTOMATED HOSPITA HOSPITA HEPATITIS 52430 [facility] C 5 N N ANTIBODY COMMUNTIY [place] [address] [facility] IRON 5 N N [place] [address] [facility] FERRITIN 5 N N COMMUNTIY COMMUNTIY HOSPITA HOSPITA IMMUNOASS 50371 [facility] AY 5 N N ANALYTE COMMUNTIY COMMUNTIY QUAL/SEMI HOSPITA HOSPITA QUAL MULTIPLE STEP ANTINUCLE 95472 [facility] AR 5 N N ANTIBODIE COMMUNTIY [place] [address] [facility] A[facility] & 5 MEDICAL PELVIS IMAGING W/O ASS CONTRAST MATERIAL DUP-SCAN 64951 [facility] [place] ANDREWS XTR VEINS 5 RADIOLOGY [place] [address] [facility] LIPASE 5 N N COMMUNTIY [place] [address] [facility] AMYLASE 5 N N COMMUNTIY COMMUNTIY HOSPITA HOSPITA BLOOD 93641 [facility] COUNT 5 N N COMPLETE COMMUNTIY COMMUNTIY AUTO&AUTO HOSPITA HOSPITA DIFRNTL WBC COMPREHEN 02018 [facility] SIVE 5 N N METABOLIC COMMUNTIY COMMUNTIY PANEL HOSPITA HOSPITA COLLECTIO 75976 [facility] N VENOUS 5 N N BLOOD COMMUNTIY COMMUNTIY [place] [address] [facility] [place] SCALF HUBER TRACT 5 RADIOLOGY UPPER W/WO DELAYED IMAGES W/KUB ANES IPR 50651 [place] BRITTNY ANT UPPER 5 ANESTHESI ABDOMEN A GROUP LAPS PS GASTRIC RSTCV MO LAPS 59748 [facility] SANCHEZ MICHELLE GSTRC 5 RSTRICTIV BARIATRIC PX SURGICAL LONGITUDI NAL GASTRECTO MY LAPAROSCO 4382 [facility] PIC 5 N N VERTICAL COMMUNTIY COMMUNTIY SLEEVE HOSPITA HOSPITA GASTRECTO MY OTHER 4513 [facility] ENDOSCOPY 5 N N OF SMALL COMMUNTIY COMMUNTIY HOSPITA HOSPITA INTESTINE APPL 88114 [facility] MODALITY 5 [facility] 1/> AREAS INC INC ELEC STIMJ UNATTENDE D APPL 37629 [place] [facility] MODALITY 5 [facility] 1/> AREAS INC INC ULTRASOUN D EA 15 MIN APPLICATI 37213 [place] [facility] ON 5 [facility] MODALITY INC INC 1/> AREAS HOT/COLD PACKS DUP-SCAN 10809 SE[facility] CANSECO XTR VEINS 5 MEDICAL ADRIANNA COMPLETE IMAGING ASS BILATERAL STUDY COMPREHEN 37957 [facility] SIVE 5 N N METABOLIC COMMUNTIY COMMUNTIY PANEL HOSPITA HOSPITA BLOOD 08059 [facility] COUNT 5 N N COMPLETE COMMUNTIY COMMUNTIY AUTOMATED HOSPITA HOSPITA GONADOTRO 72946 [facility] PIN 5 N N CHORIONIC COMMUNTIY COMMUNTIY HOSPITA HOSPITA QUALITATI VE COLLECTIO 89552 [facility] N VENOUS 5 N N BLOOD COMMUNTIY COMMUNTIY VENIPUNCT HOSPITA HOSPITA URE THERAPEUT 72717 [facility] [facility] IC PX 1/> 5 [facility] AREAS INC INC EACH 15 MIN EXERCISES APPL 05664 [place] [facility] MODALITY 5 [facility] 1/> AREAS INC INC ELEC STIMJ UNATTENDE D APPL 32269 [place] [facility] MODALITY 5 [facility] 1/> AREAS INC INC ULTRASOUN D EA 15 MIN APPLICATI 66296 [place] [facility] ON 5 [facility] MODALITY INC INC 1/> AREAS HOT/COLD PACKS CUL BACT 01909 [place] [facility] XCPT 5 [facility] URINE INC INC BLOOD/STO OL AEROBIC ISOL SUSCEPTIB 63691 [place] [facility] LTY STDY 5 [facility] ANTIMICRB INC INC IAL MICRO/AGA R DILUTJ APPL 03286 [place] [facility] MODALITY 5 [facility] 1/> AREAS INC INC ELEC STIMJ UNATTENDE D THERAPEUT 23306 [facility] [facility] IC PX 1/> 5 [facility] AREAS INC INC EACH 15 MIN EXERCISES APPLICATI 88500 [place] [facility] ON 5 [facility] MODALITY INC INC 1/> AREAS HOT/COLD PACKS APPL 48486 [place] [facility] MODALITY 5 [facility] 1/> AREAS INC INC ULTRASOUN D EA 15 MIN APPL 64703 [place] [facility] MODALITY 5 [facility] 1/> AREAS INC INC ULTRASOUN D EA 15 MIN APPLICATI 91779 [place] [facility] ON 5 [facility] MODALITY INC INC 1/> AREAS HOT/COLD PACKS APPL 92714 [place] [facility] MODALITY 5 [facility] 1/> AREAS INC INC IONTOPHOR ESIS EA 15 MIN APPL 46105 [facility] MODALITY 5 [facility] 1/> AREAS INC INC ELEC STIMJ UNATTENDE D APPL 90524 [facility] MODALITY 5 [facility] 1/> AREAS INC INC ELEC STIMJ UNATTENDE D THERAPEUT 52991 [facility] [place] IC PX 1/> 5 [facility] AREAS INC INC EACH 15 MIN EXERCISES APPL 83795 [place] [facility] MODALITY 5 [facility] 1/> AREAS INC INC IONTOPHOR ESIS EA 15 MIN APPLICATI 67100 [place] [facility] ON 5 [facility] MODALITY INC INC 1/> AREAS HOT/COLD PACKS APPL 28100 [place] [facility] MODALITY 5 [facility] 1/> AREAS INC INC ULTRASOUN D EA 15 MIN CUL 55680 [facility] PRSMPTV 5 N N PTHGNC COMMUNTIY COMMUNTIY ORGANISM HOSPITA HOSPITA SCRN W/[place] [address] [facility] THYROXINE 5 N N TOTAL COMMUNTIY [place] [address] [facility] THYROID 5 N N STIMULATI COMMUNTIY COMMUNTIY NG HOSPITA HOSPITA HORMONE TSH ECG 73641 [facility] ROUTINE 5 N N ECG COMMUNTIY COMMUNTIY W/LEAST HOSPITA HOSPITA 12 LDS TRCG ONLY W/O I&R COLLECTIO 43755 [facility] N VENOUS 5 N N BLOOD COMMUNTIY COMMUNTIY VENIPUNCT HOSPITA HOSPITA URE RADIOLOGI 96011 [facility] C EXAM 5 N N CHEST 2 COMMUNTIY COMMUNTIY VIEWS HOSPITA HOSPITA FRONTAL&L ATERAL COMPREHEN 82091 [facility] SIVE 5 N N METABOLIC COMMUNTIY COMMUNTIY PANEL HOSPITA HOSPITA BLOOD 23172 [facility] COUNT 5 N N COMPLETE COMMUNTIY COMMUNTIY AUTOMATED HOSPITA HOSPITA THYROID 08267 [facility] HORM 5 N N UPTK/THYR COMMUNTIY COMMUNTIY OID HOSPITA HOSPITA HORMONE BINDING RATIO LIPID 79560 [facility] PANEL 5 N N COMMUNTIY COMMUNTIY HOSPITA HOSPITA PHYSICAL 67568 [place] [facility] THERAPY 5 [facility] EVALUATIO INC INC N FIBRIN 68835 [facility] [facility] DGRADJ 5 [facility] PRODUCTS INC INC D-DIMER QUAL/SEMI GILBERT COLLECTIO 85730 [facility] [facility] N VENOUS 5 [facility] BLOOD INC INC VENIPUNCT URE RADIOLOGI 28042 [facility] [facility] C EXAM 5 [facility] CHEST 2 INC INC VIEWS FRONTAL&L ATERAL ECG 96176 [place] CHAVEZ JR ROUTINE 5 [facility] W/LEAST P 12 LDS I&R ONLY COMPREHEN 05432 [facility] [facility] SIVE 5 [facility] [address] [facility] [facility] TROPONIN 5 [facility] QUANTITAT INC INC SABIHA BLOOD 59906 [facility] [facility] COUNT 5 [facility] COMPLETE INC INC AUTO&AUTO DIFRNTL WBC URNLS DIP 62031 [place] [facility] 5 [facility] STICK/TAB INC INC LET REAGENT AUTO MICROSCOP Y ECG 37322 [place] [facility] ROUTINE 5 [facility] ECG INC INC W/LEAST 12 LDS TRCG ONLY W/O I&R ECG 59032 [place] [facility] ROUTINE 5 [facility] ECG INC INC W/LEAST 12 LDS TRCG ONLY W/O I&[place] [address] [place] [facility] ANGIOGRAP 5 [facility] HY CHEST INC INC W/CONTRAS T/NONCONT RAST BLOOD 66806 [facility] [facility] COUNT 5 [facility] COMPLETE INC INC AUTO&AUTO DIFRNTL WBC LOCM Q9967 [facility] [facility] 300-399 5 [facility] MG/ML INC INC IOD[place] [address] [facility] [facility] TROPONIN 5 [facility] QUANTITAT INC INC SABIHA COMPREHEN 91335 [facility] SIVE 5 [facility] METABOLIC INC INC PANEL ECG 31309 [facility]OVANI ROUTINE 5 [facility] W/LEAST P 12 LDS I&R ONLY RADIOLOGI 80392 [place] [facility] C EXAM 5 [facility] CHEST 2 INC INC VIEWS FRONTAL&L ATERAL FIBRIN 74365 [place] [facility] DGRADJ 5 [facility] PRODUCTS INC INC D-DIMER QUAL/SEMI GILBERT RADEX 81634 [place] HARLEEN SHOULDER 4 MEDICAL COMPLETE IMAGING MINIMUM 2 ASS VIEWS LEVEL III 58636 SCAL[facility] LEI SCALF LEI SURG 4 PATHOLOGY GROSS&BRYCE ROSCOPIC EXAM REPAIR 28938 ATKINS ATKINS COMPLEX 4 TRA TRA SCALP/ARM /LEG 1.1-2.5 CM DESTRUCTI 44684 ATKINS ATKINS ON BENIGN 4 [place] [address] [place] [address] [place] HARLEEN HEAD/BRAI 4 MEDICAL ADRIANNA N W/O IMAGING CONTRAST ASS MATERIAL THERAPEUT 79039 [place] TALLEYON IC 4 [facility] INJECTION INC INC [place] [address] [facility] JR WANDA PATHOLOGY GROSS&BRYCE ROSCOPIC EXAM SPECIAL 42358 [facility] STAIN [facility] GROUP 1 MICROORGA NISMS I&R SPCL STN 26405 [facility], [facility] 2 I&R 4 [facility] ER JR WANDA EXCPT MICROORG/ ENZYME/IM CYT ANES 18169 [place] BENSON UPPER GI 4 ANESTHESI JOSE ANGEL ENDOSCOPY A GROUP PROXIMAL PS TO DUODENUM EGD 45355 [facility] TRANSORAL 4 N N BIOPSY COMMUNITY COMMUNITY SINGLE/MU HOSPITA HOSPITA LTIPLE SPMTRY 25904 [place] [facility] W/VC 4 [facility] EXPIRATOR INC INC Y ABHI W/WO MXML VOL VNTJ LEVEL III 30477 SCALF LEI SCALF LEI SURG 4 PATHOLOGY GROSS&BRYCE ROSCOPIC EXAM EXC B9 69699 ADVANCED SCALF LEI LESION 4 DERMATOLO MRGN XCP GY SK TG S/N/H/F/G 1.1-2.0CM REPAIR 05950 ADVANCED SCALF LEI COMPLEX 4 DERMATOLO SCALP/ARM GY /LEG 1.1-2.5 CM RADIOLOGI 30570 [place] HARLEEN C EXAM 4 MEDICAL ADRIANNA CHEST 2 IMAGING VIEWS ASS FRONTAL&L ATERAL REMOVAL 39892 ATKINS ATKINS SKN TAGS 4 TRA TRA DIRECTOR OF RECRUITMENT FIBRQ TAGS ANY AREA UPW/15 CV STRS 08536 [place] MATUTE TST 4 [facility] XERS&/OR HOSPITAL RX CONT P ECG I&R ONLY CV STRS 02820 [place] [facility] TST 4 [facility] XERS&/OR INC INC RX CONT ECG TRCG ONLY ECHO 63674 [place] [facility] TTHRC R-T 4 [facility] 2D INC INC W/WOM-MOD E COMPL SPEC&COLR D RADIOLOGI 85310 [place] KALINA C EXAM 4 MEDICAL CARMEN CHEST 2 IMAGING VIEWS ASS FRONTAL&L ATERAL BASIC 16905 [place] [facility] METABOLIC 4 [facility] PANEL INC INC CALCIUM TOTAL RADIOLOGI 15714 HARLE[place] HARLEEN C 4 ADRIANNA ADRIANNA EXAMINATI ON CHEST [place]ING[place]IEW FRONTAL ECG 25348 [place] [facility] ROUTINE 4 [facility] ECG INC INC W/LEAST 12 LDS TRCG ONLY W/O I&R ECG 03806 SCOTT CHAVEZ JR ROUTINE 4 DWI DWI ECG W/LEAST 12 LDS I&[place] [address] [facility] [facility] TROPONIN 4 [facility] QUANTITAT INC INC SABIHA BLOOD 35803 [facility] [facility] COUNT 4 [facility] COMPLETE INC INC AUTO&AUTO DIFRNTL WBC BLOOD 49748 [facility] [facility] COUNT 4 [facility] COMPLETE INC INC AUTO&[place] [address] [facility] TROPONIN 4 [facility] QUANTITAT INC INC SABIHA ECG 93144 ANKUR ANKUR ROUTINE 4 BRYCE BRYCE ECG W/LEAST 12 LDS I&R ONLY FIBRIN 27529 [place] [facility] DGRADJ 4 [facility] PRODUCTS INC INC D-DIMER QUAL/SEMI GILBERT COMPREHEN 87498 [facility] [facility] SIVE 4 [facility] METABOLIC INC INC PANEL ECG 71748 [place] [facility] ROUTINE 4 [facility] ECG INC INC W/LEAST 12 LDS TRCG ONLY W/O I&R CREATINE 77376 [facility] [facility] KINASE MB 4 [facility] FRACTION INC INC ONLY CREATINE 46455 [facility] [facility] KINASE 4 [facility] TOTAL INC INC RADIOLOGI 46774 CHANEL BUCHANAN D C EXAM 4 CHEST 2 VIEWS FRONTAL&L ATERAL HEMOGLOBI 90995 COMBIN[facility] COMBINED N 4 PHYSICIAN PHYSICIAN GLYCOSYLA S LA S LA LANEY A1C SEDIMENTA 32009 COMBINED COMBINED TION RATE 4 PHYSICIAN PHYSICIAN RBC S LA S LA NON-AUTOM ATED CYANOCOBA 88021 COMBINED COMBINED LYUBOV 4 PHYSICIAN PHYSICIAN VITAMIN S LA S LA B-12 [place] [address] COMBINED COMBINED FREE 4 PHYSICIAN PHYSICIAN THYROXINE S LA S LA GENERAL 48667 COMBINED COMBINED HEALTH 4 PHYSICIAN PHYSICIAN PANEL S LA S LA 25 69773 COMBINED COMBINED HYDROXY 4 PHYSICIAN PHYSICIAN INCLUDES S LA S LA FRACTIONS IF PERFORMED LIPID 59477 COMBINED COMBINED PANEL 4 PHYSICIAN PHYSICIAN S LA S LA COMPUTER- 15041 [place] HARLEEN AIDED 4 MEDICAL ADRIANNA DETECTION IMAGING ASS SCREENING MAMMOGRAP HY SCREENING G0202 [place] HARLEEN 4 MEDICAL ADRIANNA MAMMOGRAP IMAGING HY WILBERT ASS INCL CAD WHEN PERFORMD LIPID 34256 [facility] QUEST PANEL 4 DIAGNOSTI DIAGNOSTI CS CS IIV3 52943 DHS/CO [place] VACCINE 9 [facility] VIRUS 0.5 BANK ACCT ML DOSAGE IM USE RADEX 50633 KIMBERLEE SANCHEZEY, SPINE 9 [facility] COMPL ON W/BENDING VIEWS MIN 6 RADIOLOGI 47871 [place] [facility] C 9 [facility] EXAMINATI INC INC ON PELVIS 1/2 VIEWS RADEX 36362 [place] AIVLA SPINE 9 [facility] LUMBOSACR INC INC AL MINIMUM 4 VIEWS RADEX HIP 97611 [place] SUMA, 9 MEDICAL MAX [place] [facility] L ASSOCIATE COMPLETE S MINIMUM 2 VIEWS Encounters Encounter Start End Date Code Location Performer Type Date [facility] [place] [facility] T [facility]303 [facility] T VISIT INC 10 MINUTES OFFICE 47516 [facility] T VISIT INTERNAL 15 MED MINUTES [facility] [place] [facility] OUTPAT[facility]EN [facility] T [facility] [place] [facility] OUTPATIEN INC T EMERGENCY 89212 [place] 7 7 [facility] DEPARTMEN INC T VISIT MODERATE SEVERITY EMERGENCY 19067 [facility] SUGGS 7 7 PHYSICIAN DEPARTMEN S, PLLC T VISIT HIGH/URGE NT SEVERITY OFFICE 76577 [facility] T VISIT S GROUP 15 MINUTES [facility] [place] [facility] OUTPATIEN INC T [facility] [place] [facility] OUTPATIEN INC T OFFICE 77613 [facility] 7 HEALTH T VISIT MEDICAL 25 GROUP MINUTES EMERGENCY 16853 [facility] PASCUAL 7 7 PHYSICIAN DEPARTMEN S, PLLC T VISIT MODERATE SEVERITY EMERGENCY 21126 [place] 7 7 [facility] DEPARTMEN INC T VISIT LOW/MODER SEVERITY EMERGENCY 86728 [facility] PASCUAL 7 7 PHYSICIAN DEPARTMEN S, PLLC T VISIT MODERATE SEVERITY [facility] - 7 7 HEALTH OUTPATIEN WHITTIER T OFFICE 47607 [place] [facility] 7 7 [facility] T VISIT 5 INC MINUTES [facility] [place] [facility] OUTPATIEN INC T [facility] [place] [facility] OUTPATIEN INC T EMERGENCY 72733 [place] 7 7 [facility] DEPARTMEN INC T VISIT LOW/MODER SEVERITY EMERGENCY 41706 S[facility] DEPT 7 7 PHYSICIAN VISIT S, PLLC HIGH SEVERITY& THREAT FUNCJ OFFICE 94631 [facility] OUTPATIEN 7 7 PHYSICIAN T VISIT S GROUP 10 MINUTES OFFICE 77485 [facility] ROSENTHAL OUTPATIEN 7 7 PARTNERS T VISIT OF [place] 25 CO MINUTES [facility] [place] [facility] OUTPATIEN INC T OFFICE 52591 [facility] 7 VALLEY T VISIT INTERNAL 15 MED MINUTES [facility] [place] [facility] OUTPATIEN INC T EMERGENCY 02358 [place] 7 7 [facility] DEPARTMEN INC T VISIT HIGH/URGE NT SEVERITY EMERGENCY 74430 [facility] DEPT 7 7 PHYSICIAN VISIT S, PLLC HIGH SEVERITY& THREAT FUNCJ OFFICE 38853 [place] CHAND 7 7 [facility] T VISIT 5 INC MINUTES [facility] [place] [facility] OUTPATIEN INC T EMERGENCY 93610 [facility] DEPT 7 7 PHYSICIAN VISIT S, PLLC HIGH SEVERITY& THREAT FUN [facility] [place] [facility] 7 [facility] OUTPATIEN INC T EMERGENCY 13174 [place] 7 7 [facility] DEPARTMEN INC T VISIT MODERATE SEVERITY [facility]OSPITAL [facility] - 7 7 HEALTH OUTPATIEN WHITTIER T OFFICE 54345 [place] [facility] OUT[facility]IEN 7 7 VALLEY T VISIT INTERNAL 15 MED MINUTES HOSPITAL [facility] - 7 7 HEALTH OUTPATIEN WHITTIER T OFFICE 69853 [place] CELI OUTPATIEN [address] [facility] T VISIT HOSPITAL 10 P MINUTES OFFICE 50007 [facility] FUNES OUTPATIEN 7 7 HEALTH T VISIT MEDICAL 25 GROUP MINUTES OFFICE 27816 YVETTE AVINA OUTPATIEN 7 7 MD RHIANNON, T VISIT PSC 15 MINUTES [facility] [place] [facility] OUTPATIEN INC T OFFICE 98724 [place] [facility]EN 7 7 [facility] T VISIT INC 10 MINUTES OFFICE 17637 [place] [facility]EN 7 7 [facility] T VISIT 5 INC MINUTES [facility] [place] [facility] OUTPATIEN INC T OFFICE 94190 [place] WEISS JR OUTPATIEN [address] [facility] 10 P MINUTES [facility] [place] [facility] OUTPATIEN INC T EMERGENCY 11517 [place] 7 7 [facility] DEPARTMEN INC T VISIT LOW/MODER SEVERITY EMERGENCY 23143 [facility] PASCUAL DEPT 7 7 PHYSICIAN VISIT S, [facility] HIGH SEVERITY& THREAT [facility] [place] [facility] OUTPATIEN INC T OFFICE 05435 [place] CELI OUTPATIEN [address] [facility] T VISIT HOSPITAL 10 P MINUTES EMERGENCY 92168 [place] 7 7 [facility] T VISIT HIGH/URGE NT SEVERITY [facility] [place] [facility] 7 7 [facility]EN [facility] [place] [facility] 7 7 [facility] OUTPATIEN [facility] T PERIODIC 06747 [facility] HUMPHREY PREVENTIV 7 7 PHYSICIAN E MED EST S GROUP PATIENT [id number] OFFICE 85580 LUIS MATUTE OUTPATIEN 7 7 VALLEY T VISIT INTERNAL 15 MED MINUTES [facility] [place] [facility] OUTPATIEN [facility] T OFFICE 97769 [facility] ISSA OUTPATIEN 7 7 PHYSICIAN T VISIT S GROUP 15 MINUTES EMERGENCY 90418 S[facility] JAQUEZ 7 7 PHYSICIAN DEPARTMEN S, [facility] T VISIT HIGH/URGE NT SEVERITY OFFICE 60874 [place] ALATORRE OUTPATIEN 7 7 [facility] T VISIT [facility]ITAL 10 P MINUTES [facility] [place] [facility] [place] [facility] 7 [facility] OUTPATIEN [facility] T OFFICE 59982 YVETTE JURADO OUTPATIEN 7 7 MD RHIANNON, T VISIT PSC 10 MINUTES [facility] [place] [facility] [place] [facility]PATIEN [facility] T OFFICE 04666 [facility] KIMBERLY OUTPATIEN 7 7 PHYSICIAN T VISIT S GROUP 25 MINUTES OFFICE 08468 YVETTE AVINA OUTPATIEN 7 7 MD RHIANNON, T NEW 30 PSC MINUTES OFFICE 19823 [facility] MAEGAN OUTPATIEN 7 7 PHYSICIAN T VISIT S GROUP 10 MINUTES OFFICE 31144 [place] [facility] 7 7 [facility] T VISIT 5 INC MINUTES [facility] [place] [facility] OUTPATIEN INC T [facility] [place] [facility] 7 7 [facility] OUTPATIEN INC T EMERGENCY 87253 [facility] SOTOMAYOR 7 7 PHYSICIAN JR DEPARTMEN S, [facility] T VISIT HIGH/URGE NT SEVERITY OFFICE 73466 [facility] KIMBERLY OUTPATIEN 7 7 PHYSICIAN T VISIT S GROUP 25 MINUTES [facility] [place] [facility] OUTPATIEN INC T OFFICE 53642 [facility] 7 7 VALLEY T VISIT INTERNAL 15 MED MINUTES [facility] [place] [facility] OUTPATIEN INC T OFFICE 02574 [facility] KIMBERLY OUTPATIEN 7 7 PHYSICIAN T VISIT S GROUP 25 MINUTES OFFICE 32409 ANGELITO ADAMS OUTPATIEN 7 7 [place] T VISIT ORTHOPAED 15 IC MINUTES EMERGENCY 32519 [place] 7 7 [facility] DEPARTMEN INC T VISIT HIGH/URGE NT SEVERITY EMERGENCY 66507 [facility] ARMIJO DEPT 7 7 PHYSICIAN VISIT [facility] HIGH SEVERITY& THREAT FUN [facility] [place] [facility] 7 7 [facility] OUTPATIEN INC T OFFICE 78025 [facility] [facility] 7 7 [place] T VISIT INTERNAL 25 MED MINUTES [facility] [place] [facility] OUTPATIEN [facility] T OFFICE 29867 [place] [facility] 7 7 [facility] T VISIT 5 INC MINUTES OFFICE 83387 ANGELITO DUARTE OUTPATIEN 7 7 [place] T NEW 30 ORTHOPAED MINUTES IC EMERGENCY 86823 [place] 7 7 [facility] DEPARTMEN INC T VISIT LOW/MODER SEVERITY [facility] [place] [facility] 7 [facility] OUT[facility] INC T EMERGENCY 59363 SMILEY JIMENEZ DEPT 7 7 PHYSICIAN U VISIT S, [facility] HIGH SEVERITY& THREAT [facility]J [facility] [place] [facility] 7 [facility] OUTPATIEN INC T EMERGENCY 16382 [place] 7 7 [facility] DEPARTMEN INC T VISIT MODERATE SEVERITY [facility] [place] [facility] 7 7 [facility]EN [facility] T [facility] [place] [facility] 7 7 [facility] OUTPATIEN INC T EMERGENCY 38045 [place] 7 7 [facility] DEPARTMEN [facility] T VISIT LOW/MODER SEVERITY EMERGENCY 44487 SMILEY PASCUAL 7 7 PHYSICIAN DEPARTMEN S, [facility] T VISIT HIGH/URGE NT SEVERITY [facility] [place] - 7 7 [facility] OUTPATIEN [facility] T OFFICE 37680 [place] [facility] 7 7 [facility] T VISIT 5 INC MINUTES OFFICE 64136 [place] OUT[facility]IEN 7 7 [place] T VISIT INTERNAL 15 MED MINUTES [facility] [place] [facility] 7 7 [facility] EMERGENCY 74916 [place] 7 7 [facility] T VISIT LOW/MODER SEVERITY EMERGENCY 15332 [facility] 7 7 [facility] EMERGENCY T VISIT PHYS MODERATE SEVERITY [facility] [place] [facility] 7 7 [facility] INC T OFFICE 43705 [place] [facility] 7 7 [facility] T VISIT 5 INC MINUTES OFFICE 92448 [place] [facility] 7 7 [place] T VISIT INTERNAL 15 MED MINUTES OFFICE 97082 [place] [facility] 7 7 [facility] T VISIT 5 INC MINUTES EMERGENCY 87759 S[facility] MEDEROS 7 7 PHYSICIAN DEPARTMEN S, [facility] T VISIT MODERATE SEVERITY [facility] [place] [facility] 7 7 [facility] T [facility] [place] [facility] 7 7 [facility] INC T OFFICE 31199 [place] [facility] 7 7 [facility] T VISIT 5 INC MINUTES OFFICE 62028 [place] [facility] 7 7 [facility] T NEW 10 INC MINUTES [facility] [place] [facility] 7 7 [facility] INC T OFFICE 43729 [place] OUTPATIEN 7 7 [place] T VISIT INTERNAL 25 MED MINUTES [facility] - 7 7 HEALTH OUTPATIEN [facility] OFFICE 21414 [place] JASSO OUTPATIEN 7 7 T VISIT 25 MINUTES EMERGENCY 33728 [place] 7 7 [facility] DEPARTMEN INC T VISIT LIMITED/M INOR PROB [facility] [place] [facility] 7 7 [facility] OUTPATIEN INC T EMERGENCY 50452 [place] 7 7 [facility] DEPARTMEN INC T VISIT LOW/MODER SEVERITY [facility] [place] [facility] 7 7 [facility] OUT[facility]EN [facility] T EMERGENCY 28785 SMILEY PASCUAL 7 7 PH[facility]ICIAN [facility] MOD[facility]ATE SE[facility]ITY [facility] [place] [facility] 7 7 [facility]PATIEN [facility] T EMERGENCY 27614 [place] 7 7 [facility] DEPARTMEN INC T VISIT LIMITED/M [facility] [place] - 7 7 HEALTH OUTPATIEN [facility] [place] - 7 7 HEALTH OUTPATIEN [facility] [place] [facility] 6 6 [facility] OUTPATIEN INC T EMERGENCY 98593 SMILEY SOTOMAYOR 6 6 PHYSICIAN JR GARCIA S, [facility] HIGH/URGE NT SEVERITY OFFICE 49651 [place] 6 6 [place] T VISIT INTERNAL 15 MED MINUTES EMERGENCY 70515 SMILEY JAQUEZ 6 6 PHYSICIAN [facility] S, [facility] T VISIT HIGH/URGE NT SEVERITY EMERGENCY 09161 [place] 6 6 [facility] DEPARTMEN INC T VISIT MODERATE SEVERITY [facility] [place] - 6 6 [facility] OUTPATIEN INC T EMERGENCY 22577 SMILEY ARMIJO 6 6 [facility] T VISIT MODERATE SEVERITY EMERGENCY 63764 [place] 6 6 [facility] T VISIT LOW/MODER SEVERITY EMERGENCY 20160 SMILEY PASCUAL 6 6 PHYSICIAN [facility] S [facility] T VISIT MODERATE SEVERITY [facility] [place] [facility] 6 6 [facility] OUTPATIEN INC T OFFICE 31071 SCIFRES SCIFRES OUTPATIEN 6 6 ANG ANG T VISIT 10 MINUTES OFFICE 55788 [place] A[facility]LAN OUTPATIEN 6 6 [facility] T VISIT INTERNAL 15 MED MINUTES OFFICE 99986 WENDY SANCHEZ MICHELLE OUTPATIEN 6 6 T VISIT BARIATRIC 25 SURGICAL MINUTES EMERGENCY 42385 [place] 6 6 [facility] T VISIT LOW/MODER SEVERITY EMERGENCY 27370 [facility] SOTOMAYOR 6 6 PHYSICIAN [facility] [facility] S [facility] T VISIT HIGH/URGE NT SEVERITY [facility] [place] [facility] 6 6 [facility] OUTPATIEN INC T EMERGENCY 45747 SMILEY PASCUAL 6 6 PHYSICIAN BRYCE [facility] S, [facility] T VISIT MODERATE SEVERITY OFFICE 52930 [facility] F[facility]I OUTPATIEN 6 6 [facility] T VISIT MEDICAL 15 G MINUTES [facility] [place] - 6 6 [facility] INC T OFFICE 83412 [facility] HUMPHREY OUTPATIEN 6 6 PHYSICIAN MEAGAN T VISIT S GROUP 15 MINUTES OFFICE 64959 [facility] ISSA OUTPATIEN 6 6 PHYSICIAN JARON T VISIT S GROUP 10 MINUTES [facility] [place] [facility] [place] [facility] T EMERGENCY 46289 [place] 6 6 [facility] DEPART[facility] INC T VISIT MODERATE SEVERITY [facility] [place] - 6 6 [facility] T OFFICE 72325 [facility] ISSA OUTPATIEN 6 6 PHYSICIAN JARON T VISIT S GROUP 10 MINUTES OFFICE 51960 JAIN ANDRES OUTPATIEN 6 6 HEALTH IV HEN T VISIT MEDICAL 15 GROUP MINUTES OFFICE 69657 [place] CELI OUTPATIEN 6 6 [facility] T VISIT HOSPITAL 10 P MINUTES OFFICE 51627 PERLA RODRIGUEZ TRI OUTPATIEN 6 6 GROUND T VISIT FAMILY 25 CLINI MINUTES OFFICE 66691 [facility] 6 [facility] T VISIT 5 [facility] DEPT TH DEPT MINUTES [facility] EMERGENCY 84651 SMILEY ARMIJO 6 6 PHYSICIAN CASANDRA GARCIA S, [facility] T VISIT HIGH/URGE NT SEVERITY EMERGENCY 99238 [place] 6 6 [facility] T VISIT LOW/MODER SEVERITY [facility] [place] [facility] 6 6 [facility] [place] [facility] T OFFICE 28697 [facility] 6 [facility] T VISIT TH DEPT HLTH DEPT 15 JAZZ JAZZ MINUTES OFFICE 52651 [facility] KIMBERLY OUTPATIEN 6 6 PHYSICIAN MAT T VISIT S GROUP 25 MINUTES OFFICE 42482 WENDY SANCHEZ OUTPATIEN 6 6 T VISIT BARIATRIC 25 SURGICAL MINUTES OFFICE 80333 [facility] KIMBERLY OUTPATIEN 6 6 PHYSICIAN JULIUS T NEW 45 S GROUP MINUTES EMERGENCY 58897 SMILEY PASCUAL 6 6 PHYSICIAN BRYCE [facility] SE[facility] [place] [facility] 6 6 [facility] OUT[facility] INC T OFFICE 41674 ALLERGY ROSENTHAL MAR OUTPATIEN 6 6 [facility]ERS T [facility] [place] 40 CO MINUTES EMERGENCY 80395 SMILEY JIMENEZ 6 6 PHYSICIAN Taylor GARCIA S [facility] T VISIT HIGH/URGE NT SEVERITY [facility] [place] [facility] 6 6 [facility] OUT[facility] INC T EMERGENCY 25712 SMILEY PASCUAL 6 6 PHYSICIAN [facility] S [facility] T VISIT MODERATE SEVERITY EMERGENCY 76782 [place] 6 6 [facility]ISIT LOW/MODER SEVERITY OFFICE 17772 CINTHYA DONALD OUTPATIEN 6 6 N T VISIT NEUROLOGY 10 MINUTES [facility] [place] - 6 6 [facility] OUTPATIEN INC T EMERGENCY 51475 SMILEY SOTOMAYOR, 6 6 PHYSICIAN JR MANEULITO GARCIA S [facility] SE[facility]ITY [facility] [place] - 6 6 [facility] OUTPATIEN INC T EMERGENCY 06686 SMILEY PASCUAL DEPT 6 6 PHYSICIAN BRYCE [facility]IT S, [facility] HIGH SEVER[facility]& THREAT FUNCJ OFFICE 35496 [place] ALATORRE OUTPATIEN 6 6 [facility]IAL T VISIT HOSPITAL 10 P MINUTES EMERGENCY 29674 [place] 6 6 [facility] T VISIT MODERATE SEVERITY EMERGENCY 07543 SMILEY SOTOMAYOR 6 6 PHYSICIAN JR ELZ DEPARTMEN S, PLLC T VISIT HIGH/URGE NT SEVERITY [facility] [place] - 6 6 [facility] T OFFICE 01482 [place] WEISS OUTPATIEN 6 6 [facility] T VISIT HOSPITAL 10 P MINUTES OFFICE 20716 ALLERGY ROSENTHAL MAR CONSULTAT 6 6 [facility] [place] NEW/ESTAB CO PATIENT 60 MIN EMERGENCY 78250 SMILEY PASCUAL DEPT 6 6 PHYSICIAN BRYCE VISIT S, PLLC HIGH SEVERITY& THREAT FUNCJ EMERGENCY 35192 SMILEY PASCUAL 6 6 PHYSICIAN BRYCE DEPARTMEN S, PLLC T VISIT MODERATE SEVERITY EMERGENCY 16757 SMILEY PASCUAL DEPT 6 6 PHYSICIAN BRYCE VISIT S, PLLC HIGH SEVERITY& THREAT FUNCJ EMERGENCY 68302 SMILEY SUGGS [facility] 6 6 PHYSICIAN DEPARTMEN S, PLLC T VISIT LOW/MODER SEVERITY [facility] [place] - 6 6 [facility] OUT[facility] INC T OFFICE 19395 [facility] 6 6 PHYSICIAN T VISIT S GROUP 25 MINUTES EMERGENCY 07899 SMILEY PASCUAL 6 6 PHYSICIAN BRYCE DEPARTMEN S, PLLC T VISIT MODERATE SEVERITY [facility] [place] - 6 6 [facility] OUTPAT[facility] INC T EMERGENCY 29484 [place] 6 6 [facility] DEPARTMEN INC T VISIT LOW/MODER SEVERITY [facility] - 6 6 N OUTPATIEN COMMUNTIY T HOSPITA OFFICE 06647 [facility] 6 6 PHYSICIAN JARON T NEW 20 S GROUP MINUTES EMERGENCY 88674 SMILEY ARMIJO DEPT 6 6 PHYSICIAN CASANDRA VISIT S, PLLC HIGH SEVERITY& THREAT FUNCJ EMERGENCY 61508 SMILEY PASCUAL 6 6 PHYSICIAN BRYCE DEPARTMEN S, PLLC T VISIT HIGH/URGE NT SEVERITY [facility] - 6 6 N OUTPATIEN COMMUNTIY T HOSPITA EMERGENCY 44651 SMILEY PASCUAL DEPT 6 6 PHYSICIAN BRYCE VISIT S, PLLC HIGH SEVERITY& THREAT FUNCJ OFFICE 31364 WENDY SANCHEZ MICHELLE OUTPATIEN 6 6 T VISIT BARIATRIC 25 SURGICAL MINUTES EMERGENCY 02923 [facility] 6 6 EMERGENCY HOW DEPARTMEN PHYS PSC T VISIT MODERATE SEVERITY HOSPITAL JAIN - 6 6 [facility] [place] [facility] OUTPATIEN INC T EMERGENCY 37806 SMILEY BAGLEY DEPT 6 6 PHYSICIAN FOR VISIT S, [facility] HIGH SEVERITY& THREAT FUN EMERGENCY 67651 [place] 6 6 [facility] DEPART[facility] INC T VISIT LOW/MODER SEVERITY EMERGENCY 29299 SMILEY PASCUAL 6 6 PHYSICIAN BRYCE DEPARTMEN S, [facility] VISIT HIGH/URGE NT SEVERITY [facility] [place] [facility] 6 6 [facility] OUTPATIEN INC T EMERGENCY 65125 SMILEY SUGGS [facility] 6 6 PHYSICIAN DEPARTMEN S, PLLC T VISIT HIGH/URGE NT SEVERITY [facility] - 6 6 N OUTPATIEN COMMUNTIY T HOSPITA EMERGENCY 47635 [facility] 6 6 ROSALEE JOSE ANGEL DEPARTMEN EMERGENCY T VISIT PHYS HIGH/URGE NT SEVERITY [facility] [place] - 6 6 [facility] T EMERGENCY 50803 [place] DEPT 6 6 [facility] VISIT INC HIGH SEVERITY& THREAT FUNCJ OFFICE 35524 CINTHYA DONALD CONSULTAT 6 6 N ION NEUROLOGY NEW/ESTAB PATIENT 60 MIN OFFICE 03321 [facility] OUTPATIEN 6 6 MATTI MATTI T NEW 30 MINUTES OFFICE 99204 SCALF LEI SCALF LEI OUTPATIEN 6 6 T VISIT 25 MINUTES EMERGENCY 62793 [facility] DEPT 6 6 PHYSICIAN BRYCE VISIT S, PLLC HIGH SEVERITY& THREAT FUNCJ OFFICE 02479 [place] ARSLAN OUTPATIEN 6 6 [facility] T VISIT INTERNAL 15 MED MINUTES HOSPITAL JAIN - 6 6 HEALTH OUTPATIEN [facility] [place] - 6 6 [facility] OUTPATIEN INC T EMERGENCY 58270 [facility] DEPT 6 6 PHYSICIAN BRYCE VISIT S, PLL HIGH SEVERITY& THREAT FUNCJ OFFICE 22061 JAIN BOLIEK OUTPATIEN 6 6 HEALTH KADIE T VISIT MEDICAL 15 GROUP MINUTES OFFICE 42608 WENDY SANCHEZ MICHELLE OUTPATIEN 6 6 T VISIT BARIATRIC 25 SURGICAL MINUTES [facility] [place] - 6 6 [facility] OUTPAT[facility] INC T OFFICE 64544 [place] ARSLAN OUTPATIEN 6 6 [place] OFELIA T VISIT INTERNAL 15 MED MINUTES INITIAL 80783 [facility] PREVENTIV 6 6 PHYSICIAN E S GROUP MEDICINE NEW PATIENT 40-64YRS [facility] [place] [facility] OUTPATIEN INC T OFFICE 96849 JAIN BOLIEK OUTPATIEN 6 6 PRIMARY KADIE T VISIT CARE OF 15 ABISAI MINUTES OFFICE 95379 [place] ARSLAN OUTPATIEN 6 6 [place] OFELIA T VISIT INTERNAL 15 MED MINUTES [facility] [place] - 6 6 [facility] OUTPATIEN INC T OFFICE 83840 WENDY SANCHEZ MICHELLE OUTPATIEN 5 5 T VISIT BARIATRIC 25 SURGICAL MINUTES OFFICE 05709 ATKINS ATKINS OUTPATIEN 5 5 TRA TRA T VISIT 25 MINUTES PERIODIC 17999 [facility] MED EST HLTH DEPT HLTH DEPT PATIENT JAZZ JAZZ 40-64YRS OFFICE 57304 WENDY MARTINEZ OUTPATIEN 5 5 T VISIT BARIATRIC 15 SURGICAL MINUTES [facility] [place] [facility] OUTPAT[facility] INC T OFFICE 25286 [place] ARSLAN OUTPATIEN 5 5 [facility] T NEW 30 INTERNAL MINUTES [facility] [place] - 5 5 [facility] OUTPATIEN INC T OFFICE 86654 [facility] PETTEMago OUTPATIEN 5 5 PHYSICIAN JACOBY T VISIT S GROUP 15 MINUTES OFFICE 13786 GASTROENT CASE JUS OUTPATIEN 5 5 EROLOGY T VISIT AND 15 HEPATOL MINUTES OFFICE 69110 DOMINICK CHAPIN OUTPATIEN 5 5 HEALTH KADIE T VISIT MEDICAL 10 GROUP MINUTES [facility] 5 5 N OUTPATIEN COMMUNTIY T [facility] [place] [facility] OUTPATIEN INC T EMERGENCY 93929 SMILEY HUTCHISON 5 5 PHYSICIAN KENNY [facility] S, [facility] T VISIT HIGH/URGE NT SEVERITY HOSPITAL [facility]HOU[facility]CK[facility]NEY - 5 5 N OUTPATIEN COMMUNTIY T [facility] [place] - 5 5 [facility] OUTPAT[facility]EN INC T OFFICE 17999 GASTROENT CASE JUS OUTPATIEN 5 5 EROLOGY T NEW 45 AND [facility] [place] [facility] OUT[facility] INC T EMERGENCY 99606 [place] SOTOMAYOR, 5 5 [facility] T VISIT P LOW/MODER SEVERITY OFFICE 69426 DANIEL SANCHEZ OUTPATIEN 5 5 HUBER HUBER T VISIT 15 MINUTES [facility] [place] - 5 5 [facility] OUTPAT[facility] INC T EMERGENCY 05600 [place] SOTOMAYOR, 5 5 [facility] T VISIT P MODERATE SEVERITY [facility] - 5 5 N OUTPATIEN COMMUNTIY T [facility] - 5 5 N OUTPATIEN COMMUNTIY T [facility] 5 5 N INPATIENT COMMUNTIY [facility] [place] - 5 5 [facility] OUT[facility] INC T OFFICE 19273 WENDY SANCHEZ MICHELLE OUTPATIEN 5 5 T VISIT BARIATRIC 40 SURGICAL MINUTES OFFICE 43332 DANIEL SANCHEZ OUTPATIEN 5 5 HUBER HUBER T VISIT 15 MINUTES [facility] [place] - 5 5 [facility] INC T EMERGENCY 27931 [place] 5 5 [facility]IS[facility] LOW/MODER SEVERITY [facility] [place] [facility] 5 5 [facility] T [facility] - 5 5 N OUTPATIEN COMMUNTIY [facility] [place] - 5 5 [facility] INC T OFFICE 08543 [place] ALATORRE OUTPATIEN [address] [facility] HOSPITAL MINUTES P [facility] [place] - 5 5 [facility] OUTPAT[facility]EN INC T OFFICE 31202 MELANIE NOGUEIRA OUTPATIEN 5 5 MEDICAL JAM T VISIT SERV 15 FOUNDATIO MINUTES N OFFICE 11094 [place] WEISS OUTPATIEN 5 5 [facility] MINUTES P OFFICE 47051 [facility] PETTEMago OUTPATIEN 5 5 PHYSICIAN JAM T NEW 30 S GROUP MINUTES OFFICE 32166 [place] F[place] CONSULTAT 5 5 [facility] N[facility] ION MEDICAL NEW/ESTAB G PATIENT 60 MIN OFFICE 91223 DANIEL CHAND 5 5 HUBER HUBER T VISIT 15 MINUTES EMERGENCY 80488 [place] ESCOTO 5 5 [facility] [place] T VISIT P MODERATE SEVERITY [facility] [place] - 5 5 [facility] OUTPATIEN INC T EMERGENCY 99433 [place] 5 5 [facility] INC T VISIT HIGH/URGE NT SEVERITY [facility] [place] - 5 5 [facility] OUTPATIEN INC T EMERGENCY 71544 [place] 5 5 [facility] T VISIT HIGH/URGE NT SEVERITY OFFICE 25178 DANIEL CHAND 5 5 HUBER HUBER T VISIT 15 MINUTES OFFICE 72425 DANIEL CHAND 4 4 HUBER HUBER T VISIT 15 MINUTES [facility] [place] - 4 4 [facility] OUT[facility]EN [facility] T EMERGENCY 69981 [place] 4 4 [facility] T VISIT LOW/MODER SEVERITY OFFICE 43090 DANIEL CHAND 4 4 HUBER HUBER T VISIT 15 MINUTES EMERGENCY 47893 [facility] DEPT 4 4 ROSAL[place] VISIT EMERGENCY HIGH PHYS SEVERITY& THREAT [facility] [place] - 4 4 [facility] OUTPATIEN INC T [facility] - 4 4 N OUTPATIEN COMMUNITY T HOSPITA OFFICE 42253 DANIEL CHAND 4 4 HUBER HUBER T VISIT 15 MINUTES OFFICE 99936 MONALISA CHAPIN CONSULTAT 4 4 KADIE ION CARDIOLOG NEW/ESTAB Y AT CENT PATIENT 40 MIN OFFICE 67795 MELANIE NOGUEIRA CONSULTAT 4 4 MEDICAL JAM ION SERV NEW/ESTAB FOUNDATIO PATIENT N 60 MIN [facility] [place] - 4 4 [facility]EN [facility] T [facility]OSPITAL [place] - 4 4 [facility] OUTPAT[facility]EN INC T OFFICE 96339 DANIEL CHAND 4 4 HUBER HUBER T VISIT 15 MINUTES OFFICE 43953 [facility] 4 4 [facility] T VISIT MEDICAL 15 G MINUTES OFFICE 79068 ATKINS ATKINS CONSULTAT 4 4 TRA TRA ION NEW/ESTAB PATIENT 40 MIN [facility] [place] - 4 4 [facility] OFFICE 93861 [facility] OUT[facility] 4 4 [facility] NEW 30 MEDICAL MINUTES G EMERGENCY 56304 [facility] 4 4 [facility] VISIT EMERGENCY HIGH PHYSI SEVERITY& THREAT [facility] [place] - 4 4 [facility] EMERGENCY 35187 HORTENCIA HUGHES DEPT 4 4 VISIT HIGH SEVERITY& THREAT [facility] EMERGENCY 03573 [place] 4 4 [facility] T VISIT MODERATE SEVERITY EMERGENCY 97469 ANKUR PASCUAL DEPT 4 4 BRYCE BRYCE VISIT HIGH SEVERITY& THREAT [facility] [place] - 4 4 [facility] EMERGENCY 25654 [place] 4 4 [facility] T VISIT HIGH/URGE NT SEVERITY OFFICE 70844 DANIEL CHAND 4 4 HUBER HUBER T VISIT 15 MINUTES OFFICE 91942 SANCHEZ MICHELLE SANCHEZ MICHELLE CONSULTAT 4 4 ION NEW/ESTAB PATIENT 80 MIN OFFICE 85558 DANIEL CHAND 4 4 HUBER HUBER T NEW 30 MINUTES [facility]OS[facility] [place] - 4 4 [facility] OUTPATIEN INC T OFFICE 55967 MAEGAN ISSA OUTPATIEN 4 4 JARON JARON T VISIT 5 MINUTES OFFICE 01024 MAEGAN ISSA OUTPATIEN 4 4 JARON JARON T NEW 30 MINUTES EMERGENCY 04077 [place] 9 9 [facility] DEPARTMEN INC T VISIT LOW/MODER SEVERITY EMERGENCY 34530 KIMBERLEE PASCUAL, 9 9 [facility] T VISIT ON HIGH/URGE NT SEVERITY [facility]OSP[facility] [place] - 9 9 [facility] OUTPATIEN INC T
--- OUTSIDE RECORDS SUMMARY | 2017-09-10 00:49 | External Medical Summary Rpt | CCD ---
Author Author , YENNY DYKESISABEL Address Unknown Phone [email or web address] Immunization Name Date Rout CVX Reac Dose [...] ecif ied Td, 12-2 139 999 Hist NV No NV UF 1-20 oric 06 al Info rmat ion - Sour ce Unsp ecif ied Td, 02-2 139 999 Hist NV No NV UF 6-19 oric 97 al Info rmat ion - Sour ce Unsp ecif ied MMR 07-2 3 999 Hist NV No NV 4-19 oric 93 al Info rmat ion - Sour ce Unsp ecif ied Td, 05-0 139 999 Hist NV No NV UF 1-19 oric 87 al Info rmat ion - Sour ce Unsp ecif ied MMR 05-2 3 999 Hist NV No NV 5-19 oric 77 al Info rmat ion - Sour ce Unsp ecif ied DTP 03-0 1 999 Hist NV No NV 2-19 oric 77 al Info rmat ion - Sour ce Unsp ecif ied Ward 03-0 89 999 Hist NV No NV o, 2-19 oric UF 77 al Info rmat ion - Sour ce Unsp ecif ied DTP 05-0 1 999 Hist NV No NV 9-19 oric 73 al Info rmat ion - Sour ce Unsp ecif ied Ward 05-0 89 999 Hist NV No NV o, 9-19 oric UF 73 al Info rmat ion - Sour ce Unsp ecif ied MMR 11-0 3 999 Hist NV No NV 8-19 oric 72 al Info rmat ion - Sour ce Unsp ecif ied Ward 05-1 89 999 Hist NV No NV o, 7-19 oric UF 72 al Info rmat ion - Sour ce Unsp ecif ied Ward 04-0 89 999 Hist NV No NV o, 5-19 oric UF 72 al Info rmat ion - Sour ce Unsp ecif ied DTP 03-2 1 999 Hist NV No NV 2-19 oric 72 al Info rmat ion - Sour ce Unsp ecif ied Ward 02-0 Intr 89 999 Hist NV No NV o, 2-19 amus oric UF 72 cula al r Info rmat ion - Sour ce Unsp ecif ied DTP 02-0 1 999 Hist NV No NV 2-19 oric 72 al Info rmat ion - Sour ce Unsp ecif ied DTP 01-0 Intr 1 999 Hist NV No NV 1-19 amus oric 72 cula al r Info rmat ion - Sour ce Unsp ecif ied
--- OUTSIDE RECORDS SUMMARY | 2017-09-10 00:49 | External Medical Summary Rpt | CCD ---
Author Author , YENNY DYKESISABEL Address Unknown Phone Immunization Name Date Rout CVX Reac Dose [...] ied Ward 02-0 Intr 89 999 Hist DC No DC o, 2-19 amus oric UF 72 cula [...]
--- NOTE | 2017-09-10 05:47 | RADIOLOGY REPORT PS360 ---
CHEST(2 VIEWS-NOT PORTABLE) HISTORY: Chest pain and tightness CHEST DISCOMFORT ORDERING PHYSICIAN: Rolando Pierce MD PATIENT AGE: 46 years COMPARISON: 01/29/2017 FINDINGS: The cardiomediastinal silhouette and pulmonary vascularity are within normal limits. The lungs are clear without infiltrates, suspicious nodules, or pleural effusions. No acute bony abnormalities. IMPRESSION: No change with no acute finding
--- NOTE | 2017-09-10 07:23 | HISTORY AND PHYSICAL REPORT ---
Demographics: Admit date: 09/09/17 Chief complaint: Chest pain PRIMARY DIAGNOSIS: CHEST PAIN Allergies: Coded Allergies: Sulfa (Sulfonamide Antibiotics) (Mild, I-RASH 08/26/17) codeine (Mild, I-RASH 08/26/17) diphenhydramine (From BENADRYL) (Mild, 01/22/17) morphine (08/26/17) History of present illness: History of present illness: 46-year-old white female with long history of chest pain syndrome, with abnormal GXT and non-interventional amenable cardiac disease on heart catheterization 2 years ago who presented to the emergency department with recurrent chest pain that she describes as squeezing behind her LEFT breast in the LEFT axillary area associated with shortness of air. Ms. Lowe struggles significantly with anxiety disorder but reported this pain was different than her anxiety pain and she was admitted to the hospital for rule out myocardial infarction and observation. This morning she feels better. Is currently receiving bedside echocardiogram. Past medical history: Family HX Diabetes Yes CAD Yes Hypertension Yes Hyperlipidemia Yes Cancer Yes TB No Immunization HX DT/Tetanus 2006 Flu 2016-18FSN Pneumonia Received In Past TB Test in last year No General CAD? No Angina: Yes CA: No Hypertension? No Hyperlipidemia? Yes CHF? No DVT? No PE? No COPD? No Asthma? No Anemia? No GERD? Yes Gastric ulcers? No GI Bleed? No Hernia? Yes Thyroid Problems? No Hypothyroidism? No CVA? No Seizures? No Diabetes? No Renal Insuffiency? No UTI? Yes Stones? No BPH? No GB Disease: Yes Nephritic Syndrome? No Asplenia? No Hepatitis? No Sickle Cell Disease? No Arthritis? Yes Migraines? Yes Cataracts? No Glaucoma? No MRSA? No HIV? No TB? No Anxiety? Yes Depression? No Cancer? No More? No Additional hx: Fibromyalgia Past Surgical HX Previous Surgery?Y ELBOW AT AGE 5 UMBILICAL HERNIA 3-4 YRS GALLBLADDER C SECTION 07/13/07 TUBAL LIGATION PARTIAL L SALPINGECTOMY ENDOSCOPY GASTRIC SLEEVE HEART CATH MARCH 2016 COLONOSCOPY 08/08/16 ENDOSCOPY 08/08/16 Current home meds: Active Scripts PROMETHAZINE HCL (Promethazine 25mg Tab) 25 MG PO Q6HP PRN NAUSEA AND VOMITING #8 TAB Prov: 07/09/17 Reported Medications MULTIVITAMIN (One Daily) 1 TAB PO DAILY Linaclotide (Linzess 145MCG) 145 MCG PO DAILY #30 Lovastatin 20 MG PO DAILY Omeprazole (Omeprazole 40MG) 40 MG PO BID Cyclobenzaprine Hcl 50 MG PO BID Loratadine 10 MG PO DAILY CHOLECALCIFEROL (VITAMIN D3) (Vitamin D) 50,000 IUNITS PO WEEKLY Social Hx: Smoking HX Tobacco No Type Cigarettes Are you/the child exposed to second-hand smoke: No Alcohol Alcohol: No Hx of Drug Use Drug Use? No Patien't marital status is single Patient's support system is fair Review of systems: Constitutional malaise, weakness. No: fever. Respiratory No: no symptoms reported. Cardiovascular see HPI Gastrointestinal/Abdominal No no symptoms reported Genitourinary No: no symptoms reported. Musculoskeletal No: no symptoms reported. Neurological No: see HPI. Exam: Lab data for last 24 hours: Laboratory Tests 09/10/17 0611: Troponin I < 0.02 09/09/172209: Sodium 140, Potassium 3.4 L, Chloride 103, Carbon Dioxide 31, BUN 10, Creatinine 0.8, Estimated Creat Clear 169, Estimated GFR (MDRD) 78, Glucose 77, Calcium 8.7, Total Bilirubin 0.5, AST 19, ALT 23, Alkaline Phosphatase 92, Creatine Kinase 73, CK-MB (CK-2) Rel Index 1.5, CK and CKMB Interp 1.1, Troponin I < 0.02, Total Protein 7.8, Albumin 3.6, Globulin 4.2 H, Albumin/Globulin Ratio 0.9 L, WBC 7.6, RBC 4.71, Hgb 13.8, Hct 41.1, MCV 87.1, RDW 12.8, Plt Count 237, MPV 6.8 L, Gran % 73.2, Gran # 5.6, Lymphocytes % 21.6, Monocytes % 3.9, Eosinophils % 0.9, Basophils % 0.3, Lymphocytes # 1.6, Monocytes # 0.3, Eosinophils # 0.1, Basophils # 0.0, PUBS MCHC 33.7, MCH 29.4 Admission vital signs: 1ST Vital Signs Result Date Time Pulse Ox 100 09/09 2221 B/P 125/75 09/09 2221 Temp 98.1 09/09 2221 Pulse 107 10/17 2221 Resp 20 10/17 2221 O2 Delivery ROOM AIR 09/10 0027 Exam General appearance: normal appearance, alert, awake Eyes: normal exam, anicteric ENT: normal exam, mucous membranes moist Neck: normal inspection, non-tender, no carotid bruit, no JVD Cardiovascular: normal exam Respiratory: normal exam, clear to auscultation ABD: normal exam, non-distended, normal bowel sounds Extremities: normal exam Musculoskeletal: normal exam Skin: normal exam, intact, normal color Neuro: normal exam, alert, no deficit Plan: Problem List 1. Chest wall pain Plan: Given patient's history of remote noninterventional disease it's reasonable to have cardiology see her. Initial echo report from the [facility] looks good however, and I would anticipate risk stratification and then discharge today. at 0769
--- NOTE | 2017-09-10 07:30 | PHARMACY CLINIC NOTE ---
Patient Demographics Patient Demographics Admission date: 09/10/17 Date: 09/10/17 Time: 07 Allergies Coded Allergies: Sulfa (Sulfonamide Antibiotics) (Mild, I-RASH 08/26/17) codeine (Mild, I-RASH 08/26/17) diphenhydramine (From BENADRYL) (Mild, 01/22/17) morphine (08/26/17) HEIGHT- FT: 5 IN: 7.00 K.289 VTE General Information Labs: Laboratory Tests 09/09 2210 Hematology Hgb (12.2 - 16.2 g/dL) 13.8 Hct (37.0 - 47.0 %) 41.1 Plt Count (142 - 424 K/mm3) 237 Disclaimer The following section includes nursing documentation that has been pulled in for pharmacy review. Patient's VTE score: 5 Patient's VTE Risk: LOW RISK Clinical trial participant? No VTE prophylaxis [id number] VTE prophylaxis ordered? Yes Type of prophylaxis/treatment: LANEY at 0729
[2017-09-10] MEDS ORDERED: VENLAFAXINE H37.5 M2 PO (09:02)
[2017-09-10] MEDS ORDERED: FLONASE 50 MCG16 GM (09:03)
[2017-09-10] MEDS ORDERED: MONTELUKAST SOD10 MG PO (09:04)
[2017-09-10] MEDS ORDERED: GABAPENTIN100 MG PO (09:05)
[2017-09-10] MEDS ORDERED: RANITIDINE 150150 MG PO (09:06)
[2017-09-10] MEDS ORDERED: RISPERIDONE0.5 M2 PO (09:07)
[2017-09-10] MEDS ORDERED: BUSPAR 10MG TAB10 MG PO (09:07)
--- NOTE | 2017-09-10 09:36 | CONSULT NOTE ---
Standard Demographics Patient Demo Date of Consultation: 09/10/17 Referring Provider: Rolando Pierce MD Reason for Consultation: Chest pain PRIMARY DIAGNOSIS: CHEST PAIN Problem list Problem list: 1. Non-obstructive coronary artery disease by cardiac catheterization 03/2016, Dr. Turner, [facility]. 2. Hyperlipidemia, on statin therapy 3. History of obesity with previous gastric sleeve surgery 4. Possible fibromyalgia History of present illness: History of present illness: 46-year-old white female with long history of chest pain syndrome, with abnormal GXT and non-interventional amenable cardiac disease on heart catheterization 2 years ago who presented to the emergency department with recurrent chest pain that she describes as squeezing behind her LEFT breast in the LEFT axillary area associated with shortness of air. Ms. Lowe struggles significantly with anxiety disorder but reported this pain was different than her anxiety pain and she was admitted to the hospital for rule out myocardial infarction and observation. This morning she feels better. Is currently receiving bedside echocardiogram. The above per Dr. Pierce. Patient describes intermittent, brief episodes of sharp discomfort starting under the LEFT breast radiating up towards the LEFT neck that typically occurs at rest. She denies any associated exertional type shortness of breath or chest pain. She feels that the symptoms may be related to either pinched nerve from degenerative disc disease in her neck and/or complicated by previous gastric sleeve surgery with reflux symptoms for which repeat surgery for gastric bypass has been suggested. Cardiac enzymes have returned normal. Electrocardiogram is sinus and unremarkable for acute changes. Echocardiogram performed this morning shows normal LEFT ventricular size and function without significant valvular heart disease or evidence of pericardial effusion. Past Medical History: General: Hypertension No CVA No Seizures No TB No COPD No Asthma No Diabetes No Angina Yes [place] No Hyperlipidemia Yes Urinary Yes Cancer No Rheumatic H.D. No Ulcers No MRSA No GB Disease Yes Other TUBAL , FREQ UTI Additional hx Fibromyalgia Past Surgical HX: Previous Surgery?Y ELBOW AT AGE 5 UMBILICAL HERNIA 3-4 YRS GALLBLADDER C SECTION 07/13/07 TUBAL LIGATION PARTIAL L SALPINGECTOMY ENDOSCOPY GASTRIC SLEEVE HEART CATH MARCH 2016 COLONOSCOPY 08/08/16 ENDOSCOPY 08/08/16 Allergies Coded Allergies: Sulfa (Sulfonamide Antibiotics) (Mild, I-RASH 08/26/17) codeine (Mild, I-RASH 08/26/17) diphenhydramine (From BENADRYL) (Mild, 01/22/17) morphine (08/26/17) Home medications: Reported Medications Cyclobenzaprine Hcl (Cyclobenzaprine HCl) 2.5-5 MG PO BIDP PRN MUSCLE SPASM VENLAFAXINE HCL (Venlafaxine HCl ER) 37.5 MG PO DAILY #30 CAP Fluticasone Propionate (Flonase 50 Mcg Nasal Edson) 1 SPRAY NA DAILY #16 Montelukast Sodium 10 MG PO DAILY #30 TAB Gabapentin (Gabapentin 100MG) 100 MG PO TID #90 CAP RANITIDINE HCL (Ranitidine HCl) 150 MG PO BID #60 TAB Risperidone 0.5 MG PO QHS #30 TAB Buspirone Hcl (Buspar 10MG) 10 MG PO TID #90 TAB MULTIVITAMIN (One Daily) 1 TAB PO DAILY Linaclotide (Linzess 145MCG) 145 MCG PO DAILY #30 Lovastatin 20 MG PO DAILY Omeprazole (Omeprazole 40MG) 40 MG PO BID Loratadine 10 MG PO DAILY CHOLECALCIFEROL (VITAMIN D3) (Vitamin D) 50,000 IUNITS PO WEEKLY Immunization HX DT/Tetanus 2007 Flu [id number] Pneumonia RECEIVED IN PAST TB Test in last year No Family history Family HX Family Hx Insignificant No Diabetes Yes CAD Yes Hypertension Yes Hyperlipidemia Yes Cancer Yes TB No Social Hx: Smoking HX Tobacco No Type Cigarettes Are you/the child exposed to second-hand smoke: No Alcohol Alcohol: No Hx of Drug Use Drug Use? No Review of systems: Constitutional No: no symptoms reported. Respiratory No: no symptoms reported. Cardiovascular see HPI, chest pain Gastrointestinal/Abdominal see HPI Genitourinary No: no symptoms reported. Musculoskeletal back pain, neck pain. Neurological No: no symptoms reported. Exam: Admission Vital Signs: 1ST Vital Signs Result Date Time Pulse Ox 100 09/09 2221 B/P 125/75 09/09 2221 Temp 98.1 09/09 2221 Pulse 107 09/09 2221 Resp 20 09/09 2221 O2 Delivery ROOM AIR 09/10 002 Last Vital Signs: Vital Signs Result Date Time Pulse Ox 96 09/10 814 B/P 94/58 09/10 814 Temp 97.9 09/10 814 Pulse 77 09/10 814 Resp 18 09/10 814 O2 Delivery ROOM AIR 10/18 0723 Exam General appearance: alert, awake, no acute distress Neck: no carotid bruit, no JVD Cardiovascular: regular rate & rhythm, no murmur Respiratory: clear to auscultation, good air movement ABD: soft, no tenderness Extremities: moves all, no peripheral edema Neuro: alert, intact, oriented Laboratory data: Laboratory Tests 09/10/17 0611: Troponin I < 0.02 09/09/17 2210: Sodium 140, Potassium 3.4 L, Chloride 103, Carbon Dioxide 31, BUN 10, Creatinine 0.8, Estimated Creat Clear 169, Estimated GFR (MDRD) 78, Glucose 77, Calcium 8.7, Total Bilirubin 0.5, AST 19, ALT 23, Alkaline Phosphatase 92, Creatine Kinase 73, CK-MB (CK-2) Rel Index 1.5, CK and CKMB Interp 1.1, Troponin I < 0.02, Total Protein 7.8, Albumin 3.6, Globulin 4.2 H, Albumin/Globulin Ratio 0.9 L, WBC 7.6, RBC 4.71, Hgb 13.8, Hct 41.1, MCV 87.1, RDW 12.8, Plt Count 237, MPV 6.8 L, Gran % 73.2, Gran # 5.6, Lymphocytes % 21.6, Monocytes % 3.9, Eosinophils % 0.9, Basophils % 0.3, Lymphocytes # 1.6, Monocytes # 0.3, Eosinophils # 0.1, Basophils # 0.0, PUBS MCHC 33.7, MCH 29.4 Plan: Assessment: 1. Chest pain with atypical features. Normal cardiac enzymes and no acute electrocardiogram changes along with essentially normal echocardiogram place patient on low risk category. Patient has known nonobstructive coronary disease by cardiac cath in March 2016. She does not smoke and is not a diabetic. No further cardiac workup recommended at this time. Would like to see her back in the office in 2-3 weeks for follow-up. 2. Hyperlipidemia 3. Obesity Recommendations: See above. at 0936
--- NOTE | 2017-09-10 13:40 | DISCHARGE SUMMARY STANDARD ---
Demographics Admit date: 09/09/17 Discharge date: 09/10/17 History of present illness History of present illness 46-year-old white female with long history of chest pain syndrome, with abnormal GXT and non-interventional amenable cardiac disease on heart catheterization 2 years ago who presented to the emergency department with recurrent chest pain that she describes as squeezing behind her LEFT breast in the LEFT axillary area associated with shortness of air. Ms. Lowe struggles significantly with anxiety disorder but reported this pain was different than her anxiety pain and she was admitted to the hospital for rule out myocardial infarction and observation. This morning she feels better. Is currently receiving bedside echocardiogram. Below note per cardiology. Patient describes intermittent, brief episodes of sharp discomfort starting under the LEFT breast radiating up towards the LEFT neck that typically occurs at rest. She denies any associated exertional type shortness of breath or chest pain. She feels that the symptoms may be related to either pinched nerve from degenerative disc disease in her neck and/or complicated by previous gastric sleeve surgery with reflux symptoms for which repeat surgery for gastric bypass has been suggested. Cardiac enzymes have returned normal. Electrocardiogram is sinus and unremarkable for acute changes. Echocardiogram performed this morning shows normal LEFT ventricular size and function without significant valvular heart disease or evidence of pericardial effusion. Hospital Course Hospital Course: Patient was admitted, ruled out for myocardial infarction, electrocardiogram and echocardiogram unremarkable. Patient with known obstructive disease but not amenable to intervention. Patient will be discharged home with continuing medical management and short-term cardiology follow-up. Discharge diagnoses Problem List 1. Chest wall pain Medications Medications: Discharge meds are as noted. Follow up Follow up in office in: 12 DAYS with: Conor Rogel MD at 1342
--- NOTE | 2017-09-11 12:55 | RADIOLOGY REPORT PS360 ---
PROCEDURE: 2-D M-mode and color Doppler study INDICATIONS FOR THE TEST: Chest pain+ COPD Heart Murmur Tobacco Smoking Palpitations Fatigue Syncope Edema Hypertension Diabetes Mellitus Rheumatic Fever SOB RAY Obesity + Hyperlipidemia+ Family History HD Additional History cath PATIENT INFORMATION HEIGHT:67 WEIGHT:266 GENDER: Female B/P:124/69 2-D/M-MODE INTERPRETATION: 2-D MEASUREMENTS OBSERVED VALUES IN CMS Right Ventricular Dimension (RVDd) 1.9 Interventricular Septum (Thickness)(IVsd) 1.0 Left Ventricular Internal Dimensions(LVIDd) 4.8 Left Ventricular Posterior Wall (Thickness)(LVPWd) 0.9 Aortic Root 3.3 Aortic Cusp Separation 2.4 Left Atrial Dimensions (LAD) 4.6 2D 1. Left atrium is mildly enlarged, left ventricle is normal size, there is no concentric left ventricular hypertrophy, visually estimated ejection fraction 55% with no obvious regional wall motion abnormality. 2. The right atrium and right ventricle are normal size and contractility. 3. The aortic valve is minimally thickened and fibrosed. 4. The mitral and tricuspid valve leaflets are minimally thickened. 5. There is trivial pericardial effusion noted 6. The pulmonic valve is poorly visualized. DOPPLER INTERROGATION: Doppler interrogation of the aortic, mitral and tricuspid valvular presence of mild aortic, mild mitral and tricuspid regurgitation, tricuspid and jet velocity insufficient for calculation of the right ventricular systolic pressure, grade 1 diastolic dysfunction seen with tissue Doppler evidence of raised left atrial pressure. CONCLUSION: 1. Mildly enlarged left atrium, normal left ventricular size, visually estimated ejection fraction 55% with no obvious regional wall motion abnormality, grade 1 diastolic dysfunction seen with tissue Doppler evidence of raised left atrial pressure. 2. Mild mitral and tricuspid regurgitation. 3. Trivial pericardial effusion noted.
== END 2017-09-10 14:20 | disposition home or self-care (01) ==
LOC: ER 22:19 → 2ND 23:53 → ER 23:53 → 2ND 09-10 00:18
PROVIDERS: Emergency Medicine
DX: R07.89 Other chest pain (principal); Z79.899 Other long term (current) drug therapy; E78.5 Hyperlipidemia, unspecified; K21.9 Gastro-esophageal reflux disease without esophagitis; E66.9 Obesity, unspecified; I25.10 Atherosclerotic heart disease of native coronary artery without angina pectoris; Z98.84 Bariatric surgery status; Z79.51 Long term (current) use of inhaled steroids
CPT/HCPCS: G0378; J2405

== ENCOUNTER → 2017-10-10 | Outpatient (CLI) | payer MEDICAID ==
[~2017-10-10] MED LIST changes: +BUSPAR 10MG TAB10 MG PO; +RANITIDINE 150150 MG PO; +RISPERIDONE0.5 M2 PO; +VENLAFAXINE H37.5 M2 PO
== END ==
LOC: LAB 14:22
DX: R10.13 Epigastric pain (principal)